=== PATIENT | female | born 1965 | race Caucasian/White ===

== ENCOUNTER 2021-07-15 13:56 | Observation (INO) | payer MEDICAID, SELFPAY ==
[2021-07-15] VITALS (12 sets, daily range): BP systolic 125–167; BP diastolic 62–106; PULSE 96–124; RESP 15–25; TEMP 36.4–36.7; O2SAT 84–98; BMI 28.4
--- NOTE | 2021-07-15 14:16 | RAD_ITS ---
STUDY: X-RAY CHEST REASON FOR EXAM: Female, 55 years old. dyspnea TECHNIQUE: 1 view COMPARISON: None. FINDINGS: Cardiomediastinal silhouette is unremarkable. Costophrenic angles are sharp. Lungs are clear. The trachea is midline. There is no pneumothorax. The bones are grossly intact. RAD/Chest 1 View (Portable) IMPRESSION: No acute cardiopulmonary process. Electronically Signed: Alfonso Patrick MD at 15:27 EST ,
--- NOTE | 2021-07-15 14:16 | EKG12_ITS ---
Test Reason : Blood Pressure : / mmHG Vent. Rate : 115 BPM Atrial Rate : 115 BPM P-R Int : 136 ms QRS Dur : 082 ms QT Int : 330 ms P-R-T Axes : 011 -37 059 degrees QTc Int : 456 ms Sinus tachycardia Left axis deviation Abnormal ECG Confirmed by LUZ BURNETT, DEBBY ([id number]), editor department LIAM MCCAIN ([id number]) on 07/17/2021 11:03:42 AM Referred By: RU Confirmed By:DEBBY ESCOBAR MD
--- NOTE | 2021-07-15 14:18 | EDS_ITS ---
HPI History of Present Illness Chief Complaint: Shortness of Breath Detail of Chief Complaint: Shortness of breath that started about 2 days ago Informant: patient Narrative Narrative: Patient presents to the emergency department with complaint of increasing shortness of breath over the last 2 days. She describes a mild cough is nonproductive. Patient feels it is an asthma exacerbation which she has had multiple times in the past. She denies any chest pain. Patient states she is been using her inhalers more frequently and last night used it 3 times and did not get much relief. Patient was noted to be hypoxic on arrival to the em ergency department. Patient is not on home O2. Patient has had her COVID vaccine but not the booster. Patient denies recent travel or surgery. [facility] Medical History (Updated 07/15/21 @ 15:[address] Gilda Drake ) Asthma Bipolar 1 disorder Depression Diabetes History of diverticulitis Hx of intestinal obstruction PTSD (post-traumatic stress disorder) Allergy/AdvReac Type Severity Reaction Status Date / Time aminophylline Allergy Swelling Verified 07/15/21 14:10 amphetamine [From Adderall] Allergy Other Verified 07/15/21 14:10 dextroamphetamine Allergy Other Verified 07/15/21 14:10 [From Adderall] iodine Allergy Swelling Verified 07/15/21 14:10 povidone-iodine Allergy Swelling Verified 07/15/21 14:10 [From Betadine] shellfish derived Allergy Swelling Verified 07/15/21 14:10 Sulfa (Sulfonamide Allergy Swelling Verified 07/15/21 14:10 Antibiotics) tetracycline AdvReac Rash Verified 07/15/21 14:10 Surgical History (Updated 07/15/21 @ 14:19 by Radha Freeman) History of lumpectomy of right breast Hx of appendectomy Hx of bilateral oophorectomy Hx of hysterectomy Hx of repair of right rotator cuff Social History Smoking Status: Never smoker ROS ROS ED Constitutional Constitutional ED: Reports systems reviewed and no addt'l complaints, except as documented; Denies body ache(s), change in weight or chills Eyes Eyes: Denies acute decrease in peripheral vision, change in vision, double vision or loss of vision ENT ENT ED: Reports none; Denies ear pain, lip swelling, loss taste/smell, neck pain, otalgia or sore throat Cardiovascular Cardiovascular: Reports none; Denies abdominal pain, chest pain with activity, leg edema, lightheadedness, palpitations, rapid heart rate or syncope Respiratory/Chest Respiratory/Chest: Reports none, cough, dyspnea and dyspnea on exertion; Denies change in mental status, dry cough, hemoptysis, shortness of breath at rest, shortness of breath with exertion or sputum Gastrointestinal Gastrointestinal: Reports none; Denies abdominal pain, change in stool character, diarrhea, hematemesis, hematochezia, melena, rectal bleeding or vomiting Genitourinary Genitourinary ED: Reports none; Denies abdominal discomfort, anuria, dysuria, genital pain or polyuria Musculoskeletal Musculoskeletal: Reports none; Denies arthralgias, back pain, difficulty walking, extremity pain, muscle weakness or myalgias Integumentary Reports none; Denies abscess or rash Neurologic Neurologic: Reports none; Denies abnormal gait, confusion, focal weakness, frequent falls, headache(s), loss of vision, numbness, paresthesias, radicular pain, vertigo or weakness Psychiatric Psychiatric: Reports systems reviewed and no addt'l complaints, except as documented and none; Denies behavioral changes, confusion, difficulty concentrating, hallucinations, suicidal ideation, tactile hallucinations or visual hallucinations Endocrine Endocrinology: Denies none, cold intolerance, excessive sweating, fatigue or heat intolerance Hematologic/Lymphatic Hematologic/Lymphatic: Reports none; Denies anemia, easy bleeding or easy bruising Allergic/Immunologic Allergic/Immunologic ED: Denies as per HPI, none, lip swelling, mouth swelling, throat swelling, tongue swelling or hives EXAM Physical Exam Const Vital Signs: 07/15/21 13:57 07/15/21 14:15 07/15/21 14:32 Temperature 97.9 F Temperature Source Temporal Pulse Rate 121 H 118 H Respiratory Rate 24 H 25 H Respiratory Effort Respiratory Depth Respiratory Pattern Tachypnea Blood Pressure 167/95 H Blood Pressure Mean 119 Pulse Ox 87 84 Oxygen Delivery Method Room Air Room Air Oxygen Flow Rate (L/min) 07/15/21 14:42 07/15/21 15:00 Temperature Temperature Source Pulse Rate 116 H Respiratory Rate 16 Respiratory Effort Short of Breath Labored Respiratory Depth Deep Respiratory Pattern Tachypnea Blood Pressure 125/106 H Blood Pressure Mean 112 Pulse Ox 96 Oxygen Delivery Method Nasal Cannula Nasal Cannula Oxygen Flow Rate (L/min) 2 2 Positive well nourished and well developed General Appearance ED: well developed and NAD HEENT Reports TM's clear and moist mucous membranes normocephalic and atraumatic; Negative for trauma or tenderness Tympanic Membrane ED: Yes TM's clear Eyes PERRL and EOMs intact bilaterally General Eye ED: Negative for pale conjunctiva or scleral icterus Neck no lymphadenopathy, supple and no JVD General: Negative for tenderness Chest Wall inspection of chest normal and palpation of chest normal Chest: Negative for tenderness Resp No normal respiratory effort and No clear to auscultation bilaterally Resp Narrative: Patient with mild conversational dyspnea. Patient has mild accessory muscle use. Diminished breath sounds bilaterally with faint expir atory wheezes noted bilaterally. Patient is tachypneic. Effort and Inspection: Negative for respiratory distress or pain with movement Auscultation: wheezes and diminished lung sounds; Negative for rhonchi Cardio regular rate, regular rhythm, S1 normal heart sound, S2 normal heart sound and no murmurs Peripheral Pulses: pulses 2+ throughout GI normal to inspection, nondistended, normoactive bowel sounds, soft to palpation, non-tender, non-distended and no masses Back/Spine no CVA tenderness and no thoracic nor lumbar tenderness Extremity normal to inspection General Extremety ED: Negative for edema General Extremity: Negative for edema Neuro oriented x3, CN's II-XII intact bilaterally, no sensory deficits noted and gait normal Sensorium / Orientation: awake, alert, oriented to person, oriented to place and oriented to time Motor Exam: strength 5/5 throughout and strength abnormal Psych mental status grossly normal Skin no rashes or lesions noted and no wounds MDM MDM MDM Narrative Medical decision making narrative: IV line established on arrival. Patient given DuoNeb aerosol followed by albuterol aerosols every 20 minutes. Patient started on Solu-Medrol 125 mg IV. Patient did feel improved and was moving better air but continues to wheeze. Patient case will be discussed with hospitalist evaluate for admission given her hypoxemia. Lab Data Attestation: I reviewed the patient's lab results. Labs: Laboratory Results - last 24 hr 07/15/21 07/15/21 14:15 14:15 WBC 6.7 RBC 4.58 Hgb 13.7 Hct 41.3 MCV 90.2 MCH 29.9 MCHC 33.2 RDW Std Deviation 39.6 RDW Coeff of Elsi 12.0 Plt Count 176 MPV 8.5 Immature Gran % (Auto) 1.200 H Neut % (Auto) 60.5 Lymph % (Auto) 23.2 Andrews % (Auto) 7.8 Eos % (Auto) 6.6 H Baso % (Auto) 0.7 Absolute Neuts (auto) 4.0 Absolute Lymphs (auto) 1.55 Nucleated RBC % 0 Sodium 141 Potassium 3.6 Chloride 109 H Carbon Dioxide 25.0 Anion Gap 7 BUN 10 Creatinine 0.96 Estim Creat Clear Calc 51.14 Est GFR (MDRD) Af Amer 77 Est GFR (MDRD) Non-Af 63 BUN/Creatinine Ratio 10.4 Glucose 140 H Calcium 9.0 Troponin I High Sens 4 Radiography Diagnostic Testing: Clinical Impression(s) from Imaging Studies Chest X-Ray 07/15/21 14:16 IMPRESSION: No acute cardiopulmonary process. Electronically Signed: Alfonso Patrick MD at 15:27 EST Reading Location ID and State: [facility] / [place] Tel , Service support , 1 view chest x-ray obtained interpreted by myself as no acute disease process. Radiology in agreement. EKG Initial EKG: Attestation: I personally reviewed and interpreted this EKG as follows: Comments: Sinus rhythm with a ventricular rate of 115 bpm with no acute ST segment changes Discharge Plan Triage Chief Complaint: Shortness of Breath ED Provider: Gilda Drake Dx/Rx/DC Orders Clinical Impression: Status asthmaticus, Hypoxemia Primary Care Provider: Care Physician,No Primary Referrals: Care Physician,No Primary [Primary Care Provider] - Disposition Disposition: Acute Care [facility]
[2021-07-15 14:27] LABS: Absolute Lymphocyte Count 1.55 X10^3/uL (0.83-4.51); Basophil# 0.05 X10^3/uL; Basophil% 0.7 % (0-1); Eosinophil# 0.44 X10^3/uL; Eosinophils% 6.6 % (0-5); Hematocrit 41.3 % (37-47); Hemoglobin 13.7 g/dL (12.0-15.0); Lymphocyte # 1.55 X10^3/ul (0.83-4.51); Lymphocyte % 23.2 % (19-41); Mean Corp Hgb Conc 33.2 g/dL (32-36); Mean Corpuscular Hgb 29.9 pg (27.0-32.0); Mean Corpuscular Volume 90.2 fL (81-99); Mean Platelet Vol. 8.5 fl (6.2-12.0); Monocyte# 0.52 X10^3/uL; Monocyte% 7.8 % (0-10); NRBC Flagged by Analyzer 0 % (0-5); Neutrophil # 4.04 X10^3/uL (2.7-7.7); Neutrophil % 60.5 % (47-70); Platelet Count 176 K/mm3 (150-450); RBC Distribution Width SD 39.6 fl (35.1-43.9); Red Blood Count 4.58 M/mm3 (4.2-5.4); White Blood Count 6.7 K/mm3 (4.4-11.0)
[2021-07-15] MEDS: Ipratropium/Albuterol Sulfate 3 ML AMPUL.NEB INHALATION ×3 (14:29→23:06)
[2021-07-15] MEDS: Albuterol 2.5 MG/3 ML VIAL.NEB. INHALATION ×3 (14:30)
[2021-07-15] MEDS: 0.9% Normal Saline 1,000 ML 150 ML IV (14:39)
[2021-07-15] MEDS: MethylPREDNISolone 125 MG/2 ML Vial IV (14:39)
[2021-07-15 14:44] LABS: Anion Gap 7 (5-15); BUN 10 mg/dL (7-18); BUN/Creat Ratio 10.4 RATIO (10-20); Chloride 109 mmol/L (98-107); Creatinine, Serum 0.96 mg/dL (0.55-1.02); EST Glomerular Filtration Rate 63 mL/min (>60); Est Glom Filt Rate - Afr Amer 77 mL/min (>60); Estimated Creatinine Clearance 51.14 ml/min; Glucose 140 mg/dL (74-106); Potassium 3.6 mmol/L (3.5-5.1); Sodium Level 141 mmol/L (136-145); Troponin-I HS 4 pg/mL (3.0-54.0)
--- NOTE | 2021-07-15 15:36 | PCM.HP.STD ---
Documented by User: Taylor Fields NP, CULINARY MANAGER-C 07/15/21 16:08 HPI - General General Date of Admission: 07/15/21 HPI Narrative LEAH JERRY, is a 55 F who presents to the Emergency Room due to shortness of breath. Patient reports she has had shortness of breath for 3 to 4 days. She states during the wintertime she typically has an asthma exacerbation every 3 to 4 weeks. She denies sore throat, runny nose, productive cough. She reports intermittent dry cough. Denies exposure to sick contacts. She is vaccinated for Covid. Denies fever, chills. Denies other URI symptoms. She states she has been using her inhaler more frequently and has significant chest tightness with wheezing. Her past medical history includes asthma, bipolar, depression, anxiety, PTSD, type 2 diabetes mellitus. COUNTS INCLUDE 234 BEDS AT THE [facility] Medical History Asthma Bipolar 1 disorder Depression Diabetes History of diverticulitis Hx of intestinal obstruction PTSD (post-traumatic stress disorder) Allergy/AdvReac Type Severity Reaction Status Date / Time aminophylline Allergy Swelling Verified 07/15/21 14:10 amphetamine [From Adderall] Allergy Other Verified 07/15/21 14:10 dextroamphetamine Allergy Other Verified 07/15/21 14:10 [From Adderall] iodine Allergy Swelling Verified 07/15/21 14:10 povidone-iodine Allergy Swelling Verified 07/15/21 14:10 [From Betadine] shellfish derived Allergy Swelling Verified 07/15/21 14:10 Sulfa (Sulfonamide Allergy Swelling Verified 07/15/21 14:10 Antibiotics) tetracycline AdvReac Rash Verified 07/15/21 14:10 Family History (Updated 07/15/21 @ 16:06 by Taylor Fields NP, CULINARY MANAGER-C) Father Diabetes Mother Diabetes Surgical History (Updated 07/15/21 @ 16:06 by Taylor Fields NP, CULINARY MANAGER-C) History of intestinal surgery History of lumpectomy of right breast Hx of appendectomy Hx of bilateral oophorectomy Hx of hysterectomy Hx of repair of right rotator cuff Social History (Updated 07/15/21 @ 16:07 by Taylor Fields NP, CULINARY MANAGER-C) household members: spouse Smoking Status: Never smoker alcohol intake: never substance use type: does not use ROS Constitutional Constitutional: Denies change in weight, chills, fatigue, fever(s) or weakness Cardiovascular Cardiovascular: Denies chest pain, edema, lightheadedness, palpitations or syncope Respiratory/Chest Respiratory/Chest: Reports cough, dyspnea and wheezing; Denies productive cough Gastrointestinal Gastrointestinal: Denies abdominal pain, constipation, diarrhea, nausea or vomiting Genitourinary Genitourinary: Denies burning urination, difficulty urinating, dysuria, hematuria, urinary frequency, urinary incontinence or urinary urgency Musculoskeletal Musculoskeletal: Denies back pain, joint pain or muscle weakness Integumentary Integumentary: Denies erythema, lesions, rash or wounds Neurologic Neurologic: Denies abnormal speech, confusion, dizziness, focal weakness, numbness, paresthesias, seizure-like activity or syncope Psychiatric Psychiatric: Denies anxiety or depression Hematologic/Lymphatic Hematologic/Lymphatic: Denies anemia, easy bleeding or easy bruising Allergic/Immunologic Allergic/Immunologic: Denies hives or asthma Vital Signs Vital Signs Vital Signs: 07/15/21 13:57 07/15/21 14:15 07/15/21 14:32 Temperature 97.9 F Temperature Source Temporal Pulse Rate 121 H 118 H Respiratory Rate 24 H 25 H Respiratory Effort Respiratory Depth Respiratory Pattern Tachypnea Blood Pressure 167/95 H Blood Pressure Mean 119 Pulse Ox 87 84 Oxygen Delivery Method Room Air Room Air Oxygen Flow Rate (L/min) 07/15/21 14:42 07/15/21 15:00 Temperature Temperature Source Pulse Rate 116 H Respiratory Rate 16 Respiratory Effort Short of Breath Labored Respiratory Depth Deep Respiratory Pattern Tachypnea Blood Pressure 125/106 H Blood Pressure Mean 112 Pulse Ox 96 Oxygen Delivery Method Nasal Cannula Nasal Cannula Oxygen Flow Rate (L/min) 2 2 Weight Weight: 155 lb 10.342 oz Body Mass Index (BMI) 28.4 Physical Exam Const alert, oriented x3 and no apparent distress Orientation / Consciousness: awake, oriented to person, oriented to place and oriented to time HEENT normocephalic and moist oral mucous membranes Eyes PERRL, EOMs intact bilaterally and conjunctivae normal Neck no lymphadenopathy Resp Auscultation: wheezes and diminished lung sounds Cardio regular rhythm and no murmurs Rate: tachycardic Peripheral Pulses: pulses 2+ throughout GI normal to inspection, nondistended, normoactive bowel sounds, non-tender and non-distended Extremity normal to inspection Skin no rashes or lesions noted Lesions: no lesions Rashes: no rashes Trauma: no lacerations or abrasions Neuro CN's II-XII intact bilaterally, no focal motor deficits, no sensory deficits noted and deep tendon reflexes 2+ bilaterally Psych mental status grossly normal and affect normal Results Lab / Micro Data Result Diagrams: 07/15/21 14:15 07/15/21 14:15 Labs: Laboratory Results - last 24 hr 07/15/21 14:15: WBC 6.7, RBC 4.58, Hgb 13.7, Hct 41.3, MCV 90.2, MCH 29.9, MCHC 33.2, RDW Std Deviation 39.6, RDW Coeff of Elsi 12.0, Plt Count 176, MPV 8.5, Immature Gran % (Auto) 1.200 H, Neut % (Auto) 60.5, Lymph % (Auto) 23.2, [place] % (Auto) 7.8, Eos % (Auto) 6.6 H, Baso % (Auto) 0.7, Absolute Neuts (auto) 4.0, Absolute Lymphs (auto) 1.55, Nucleated RBC % 0 07/15/21 14:15: Sodium 141, Potassium 3.6, Chloride 109 H, Carbon Dioxide 25.0, Anion Gap 7, BUN 10, Creatinine 0.96, Estim Creat Clear Calc 51.14, Est GFR (MDRD) Af Amer 77, Est GFR (MDRD) Non-Af 63, BUN/Creatinine Ratio 10.4, Glucose 140 H, Calcium 9.0, Troponin I High Sens 4 Micro: Microbiology 07/15/21 14:45 Nasal Secretion SARS-CoV-2 Antigen (Rapid) - Final Radiology Impression Chest X-Ray 07/15/21 14:16 IMPRESSION: No acute cardiopulmonary process. Electronically Signed: Alfonso Patrick MD at 15:27 EST , Assessment & Plan Assessment/Plan (1) Asthma: PLAN: 1. Acute hypoxic respiratory failure secondary to exacerbation of asthma-chest x-ray unremarkable. Afebrile, no leukocytosis. Check respiratory panel. Covid negative. Full vaccinated. IV Solu-Medrol. Albuterol and DuoNeb aerosols. Continue supplement oxygen to maintain O2 at above 90%. Walking pulse ox prior to discharge. 2. Type 2 diabetes mellitus-hold metformin. Accu-Cheks with sliding scale insulin. 3. PTSD/depression/anxiety/bipolar 1 disorder-continue home medication regimen, home meds not yet updated. DVT prophylaxis- SCDs, Lovenox sc This patient was seen by Taylor Fields NP-C under the supervision of Dr. Leon. Time spent examining patient, reviewing data and subsequent management of care: 14 Minutes Documented by User: Dr. Juliana Leon MD 07/15/21 17:47 HPI - General General Date of Admission: 07/15/21 COUNTS INCLUDE 234 BEDS AT THE [facility] Medical History Asthma Bipolar 1 disorder Depression Diabetes History of diverticulitis Hx of intestinal obstruction PTSD (post-traumatic stress disorder) Allergy/AdvReac Type Severity Reaction Status Date / Time aminophylline Allergy Swelling Verified 07/15/21 14:10 amphetamine [From Adderall] Allergy Other Verified 07/15/21 14:10 dextroamphetamine Allergy Other Verified 07/15/21 14:10 [From Adderall] iodine Allergy Swelling Verified 07/15/21 14:10 povidone-iodine Allergy Swelling Verified 07/15/21 14:10 [From Betadine] shellfish derived Allergy Swelling Verified 07/15/21 14:10 Sulfa (Sulfonamide Allergy Swelling Verified 07/15/21 14:10 Antibiotics) tetracycline AdvReac Rash Verified 07/15/21 14:10 Family History (Updated 07/15/21 @ 16:06 by Taylor Fields NP, CULINARY MANAGER-C) Father Diabetes Mother Diabetes Surgical History (Updated 07/15/21 @ 16:06 by Taylor Fields NP, CULINARY MANAGER-C) History of intestinal surgery History of lumpectomy of right breast Hx of appendectomy Hx of bilateral oophorectomy Hx of hysterectomy Hx of repair of right rotator cuff Social History (Updated 07/15/21 @ 16:07 by Taylor Fields CULINARY MANAGER, CULINARY MANAGER-C) household members: spouse Smoking Status: Never smoker alcohol intake: never substance use type: does not use Results Lab / Micro Data Result Diagrams: 07/15/21 14:15 07/15/21 14:15
[2021-07-15 18:11] LABS: Bedside Glucose 221 mg/dL (70-110)
[2021-07-15] MEDS: Acetaminophen 325 MG Tablet 650 MG PO (18:28)
[2021-07-15] MEDS: Insulin Lispro 100 UNIT/ML INSULN.PEN SC ×2 (18:57→23:21)
[2021-07-15] MEDS: hydrOXYzine PAM 25 MG Capsule 50 MG PO (20:48)
[2021-07-15] MEDS: guaiFENesin 1,200 MG Tablet 1200 MG PO (23:20)
[2021-07-15] MEDS: Doxazosin 1 MG Tablet PO (23:21)
[2021-07-15] MEDS: Amitriptyline 10 MG Tablet 20 MG PO (23:21)
[2021-07-15] MEDS: Haloperidol 5 MG Tablet PO (23:21)
[2021-07-15] MEDS: traZODone 100 MG Tablet 150 MG PO (23:21)
[2021-07-16] VITALS (7 sets, daily range): BP systolic 124–140; BP diastolic 68–76; PULSE 86–104; RESP 16–20; TEMP 36.4–37; O2SAT 95–98
[2021-07-16 01:21] LABS: Bedside Glucose 331 mg/dL (70-110)
[2021-07-16] MEDS: Ipratropium/Albuterol Sulfate 3 ML AMPUL.NEB INHALATION ×3 (03:25→11:08)
[2021-07-16] MEDS: Amitriptyline 10 MG Tablet 20 MG PO (06:14)
[2021-07-16] MEDS: Enoxaparin 40 MG/0.4 ML Syringe SC (06:14)
[2021-07-16] MEDS: Insulin Lispro 100 UNIT/ML INSULN.PEN SC ×2 (06:16→11:41)
[2021-07-16] MEDS: 0.9% Saline Lock 10 ML Syringe IV (06:17)
[2021-07-16] MEDS: Acetaminophen 325 MG Tablet 650 MG PO ×2 (06:30→14:16)
[2021-07-16 06:56] LABS: Bedside Glucose 262 mg/dL (70-110)
[2021-07-16] MEDS: Citalopram 20 MG Tablet 60 MG PO (08:48)
[2021-07-16] MEDS: clonazePAM 0.5 MG Tablet PO (08:48)
[2021-07-16] MEDS: guaiFENesin 1,200 MG Tablet 1200 MG PO (08:48)
[2021-07-16] MEDS: hydrOXYzine PAM 25 MG Capsule 50 MG PO (08:49)
--- NOTE | 2021-07-16 10:35 | CASEMGMT ---
NEHEMIAS MA Face to Face with patient for initial transition planning/care coordination assessment. RN ANIL introduced self and role at [facility]. Patient lying in bed, alert and oriented, at bedside. Patient willing to participate in assessment and is able to answer all questions appropriately. Care providers, pharmacy, and demographics verified. Patient wishes to discharge to her car and staying at [email or web address] at night. Patient states she has no further needs or concerns at this time. CM to follow for discharge planning needs that may arise. PCP: Patient she sees Leslye in [place]. Patient wanting to see doctor in [place]. Patient provided with PCP list Specialists: none Preferred Pharmacy: [email or web address], [facility] retail at discharge Insurance: [employer] Prescription Benefit: yes Living Will/HPOA: none LNOK: Living Arrangements: Patient states she and her are currently staying in their car and sleeping at [facility] center at [email or web address] at night. Patient states she is independent Transportation: self, DME/HHC: Patient states she has nebulizer. No previous HHC or SNF. Patient requesting information regarding housing resources and food assistance. Disposition Plan: Patient to discharge to car and [email or web address] with follow-up plans in place. Serene JUÁREZ, RN, CM
--- NOTE | 2021-07-16 10:52 | CASEMGMT ---
Addendum entered by Theodora Del Angel 07/16/21 11:23: Received tc from pharmacy requesting information from pt insurance card that is not on file. RN ANIL in to pt room, obtained info and relayed to Luis in pharmacy. Pt aware that meds and BGM will be delivered to her room. Original Note: Obtained script for BGM, tubed to [facility] retail pharmacy (per pt request) and requested to be delivered to pt room as she will be dc'ing today.
--- NOTE | 2021-07-16 11:45 | CASEMGMT ---
Social Work Note SW updated that pt would like housing resources and food pantry resources. SW in to speak with pt and pt's Dean present in room. SW introduced self and role at [facility]. SW provided pt with housing and food/meals pantries resources. Serene Chapa SEA CAPTAIN, DIE REAMER
--- NOTE | 2021-07-16 11:46 | PCM.DC ---
Discharge Instructions Diet Discharge Diet: Carb Control Diet Activity Discharge Activity: Return to Normal Activity Dressing / Incision Call your doctor if you observe: Fever of 101 or Higher, Shortness of breath, Dizziness and Chest pain Follow Up Care Test Results: Test results from this visit will be discussed in further detail at your follow-up appointment, if applicable. Discharge Plan Admission Admit Date/Time: 07/15/21 15:38 Primary Reason for Your Visit: Asthma exacerbation Attending Provider: Bhakti Arndt Primary Care Provider: Care Physician,No Primary Discharge Orders/Prescriptions Prescriptions: New Mucus Relief ER 1,200 mg Tablet Extended Release 12hr 1,200 mg PO BID 14 Days Qty: 28 RF: 0 prednisone 10 mg tablet See Taper mg PO DAILY Qty: 30 RF: 0 albuterol sulfate 90 mcg/actuation HFA aerosol inhaler 2 puff inhalation Q6H PRN (Reason: shortness of breath or wheezing) Qty: 8.5 RF: 0 Continued haloperidol 5 mg tablet 5 mg PO QHS RF: 0 albuterol sulfate 2.5 mg /3 mL (0.083 %) solution for nebulization RF: 0 clonazepam 0.5 mg tablet 0.5 mg PO DAILY RF: 0 citalopram 40 mg tablet 60 mg PO DAILY RF: 0 hydroxyzine HCl 50 mg tablet 50 mg PO Q8 PRN (Reason: anxiety) RF: 0 prazosin 1 mg capsule 1 mg PO QHS RF: 0 trazodone 150 mg tablet 150 mg PO QHS RF: 0 metformin 500 mg tablet extended release 24 hr 500 mg PO BID RF: 0 amitriptyline 10 mg tablet 20 mg PO TID RF: 0 benztropine 1 mg tablet 1 mg PO PRN PRN (Reason: anxiety) RF: 0 benztropine 1 mg tablet 1 mg PO DAILY 30 Days Qty: 30 RF: 0 Discontinued azithromycin 250 mg tablet RF: 0 Referrals / Follow Up: Care Physician,No Primary [Primary Care Provider] - In 1 Week Disposition Disposition (needs filled in before D/C Order can be placed): Home, Self Care
[2021-07-16 11:55] LABS: Bedside Glucose 345 mg/dL (70-110)
--- NOTE | 2021-07-16 12:00 | DS.PCM_ITS ---
Documented by User: Taylor Fields NP, HAND CEMENTER-C 07/16/21 12:05 Providers Date of Admission: 07/15/21 Date of Discharge: 07/16/21 Primary Care Physician: No Primary Care Phys Reason For Visit: ASTHMA EXACERBATION Diagnosis Discharge Diagnosis (1) Asthma: Status: Acute Code(s): J45.909 - Unspecified asthma, uncomplicated Medications at Discharge Home Medications albuterol sulfate 07/15/21 amitriptyline 20 mg PO TID 07/15/21 benztropine 1 mg PO PRN PRN 07/15/21 citalopram 60 mg PO DAILY 07/15/21 clonazepam 0.5 mg PO DAILY 07/15/21 haloperidol 5 mg PO QHS 07/15/21 hydroxyzine HCl 50 mg PO Q8 PRN 07/15/21 metformin 500 mg PO BID 07/15/21 prazosin 1 mg PO QHS 07/15/21 trazodone 150 mg PO QHS 07/15/21 albuterol sulfate 2 puff INHALATION Q6H PRN #8.5 g 07/16/21 benztropine 1 mg PO DAILY 30 Days #30 tab 07/16/21 guaifenesin [Mucus Relief ER] 1,200 mg PO BID 14 Days #28 tab 07/16/21 prednisone See Taper PO DAILY #30 tab 07/16/21 Hospital Course Operations None Procedures None Summary of Care Provided Hospital Course: Patient is a 55-year-old female admitted 07/15/2021 due to shortness of breath, wheezing. 1. Acute hypoxic respiratory failure secondary to exacerbation of asthma-chest x-ray unremarkable. Afebrile, no leukocytosis. Respiratory panel negative. Covid negative. Full vaccinated. IV Solu-Medrol during admission. Patient improved quicker than expected and is now on room air. Ambulatory pulse ox prior to discharge. Prednisone taper at discharge. Continue home aerosol/inhaler regimen. Follow-up with PCP in 1 week. 2. Type 2 diabetes mellitus-continue home Metformin regimen. Rx for glucometer/testing supplies at discharge. 3. PTSD/depression/anxiety/bipolar 1 disorder-continue home medication regimen including amitriptyline, benztropine, citalopram, clonazepam, Haldol, prazosin, hydroxyzine, trazodone. Physical Exam Const alert, oriented x3 and no apparent distress Orientation / Consciousness: awake, oriented to person, oriented to place and oriented to time HEENT normocephalic and moist oral mucous membranes Eyes PERRL, EOMs intact bilaterally and conjunctivae normal Neck no lymphadenopathy Resp Auscultation: Scattered expiratory wheezing Cardio regular rhythm and no murmurs Rate: tachycardic Peripheral Pulses: pulses 2+ throughout GI normal to inspection, nondistended, normoactive bowel sounds, non-tender and non-distended Extremity normal to inspection Skin no rashes or lesions noted Lesions: no lesions Rashes: no rashes Trauma: no lacerations or abrasions Neuro CN's II-XII intact bilaterally, no focal motor deficits, no sensory deficits noted and deep tendon reflexes 2+ bilaterally Psych mental status grossly normal and affect normal Patient seen and examined prior to discharge. Physical assessment as noted above. Patient is stable for discharge with follow up recommendations as noted above. This patient was seen by JHONY Ruby under the supervision of Dr. Arndt. Weight / BMI Weight Weight: 155 lb 10.342 oz Body Mass Index (BMI) 28.4 ABG / Lab / Microbiology Data Result Diagrams: 07/15/21 14:15 07/15/21 14:15 Laboratory: Laboratory Results - last 24 hr 07/15/21 14:15: WBC 6.7, RBC 4.58, Hgb 13.7, Hct 41.3, MCV 90.2, MCH 29.9, MCHC 33.2, RDW Std Deviation 39.6, RDW Coeff of Elsi 12.0, Plt Count 176, MPV 8.5, Immature Gran % (Auto) 1.200 H, Neut % (Auto) 60.5, Lymph % (Auto) 23.2, Thomas % (Auto) 7.8, Eos % (Auto) 6.6 H, Baso % (Auto) 0.7, Absolute Neuts (auto) 4.0, Absolute Lymphs (auto) 1.55, Nucleated RBC % 0 07/15/21 14:15: Sodium 141, Potassium 3.6, Chloride 109 H, Carbon Dioxide 25.0, Anion Gap 7, BUN 10, Creatinine 0.96, Estim Creat Clear Calc 51.14, Est GFR (MDRD) Af Amer 77, Est GFR (MDRD) Non-Af 63, BUN/Creatinine Ratio 10.4, Glucose 140 H, Calcium 9.0, Troponin I High Sens 4 07/15/21 18:07: POC Glucose 221 H 07/15/21 23:16: POC Glucose 331 H 07/16/21 06:15: POC Glucose 262 H 07/16/21 11:40: POC Glucose 345 H Microbiology: Microbiology 07/15/21 19:05 Mucosa - Nasopharyngeal Respiratory Panel (PCR) - Final 07/15/21 14:45 Nasal Secretion SARS-CoV-2 Antigen (Rapid) - Final Radiography Diagnostic Testing: Radiology Impression Chest X-Ray 07/15/21 14:16 IMPRESSION: No acute cardiopulmonary process. Electronically Signed: Alfonso Patrick MD at 15:27 EST , D/C Instructions Discharge Diet: Carb Control Diet Call your doctor if you observe: Fever of 101 or Higher, Shortness of breath, Dizziness and Chest pain Meaningful Use Info Meaningful Use Diagnoses (Choose all that apply): None applicable Discharge Plan Admission Admit Date/Time: 07/15/21 15:38 Primary Reason for Your Visit: Asthma exacerbation Attending Provider: Bhakti Arndt Primary Care Provider: Care Physician,Lidia Primary Discharge Orders/Prescriptions Prescriptions: New Mucus Relief ER 1,200 mg Tablet Extended Release 12hr 1,200 mg PO BID 14 Days Qty: 28 RF: 0 prednisone 10 mg tablet See Taper mg PO DAILY Qty: 30 RF: 0 albuterol sulfate 90 mcg/actuation HFA aerosol inhaler 2 puff inhalation Q6H PRN (Reason: shortness of breath or wheezing) Qty: 8.5 RF: 0 Continued haloperidol 5 mg tablet 5 mg PO QHS RF: 0 albuterol sulfate 2.5 mg /3 mL (0.083 %) solution for nebulization RF: 0 clonazepam 0.5 mg tablet 0.5 mg PO DAILY RF: 0 citalopram 40 mg tablet 60 mg PO DAILY RF: 0 hydroxyzine HCl 50 mg tablet 50 mg PO Q8 PRN (Reason: anxiety) RF: 0 prazosin 1 mg capsule 1 mg PO QHS RF: 0 trazodone 150 mg tablet 150 mg PO QHS RF: 0 metformin 500 mg tablet extended release 24 hr 500 mg PO BID RF: 0 amitriptyline 10 mg tablet 20 mg PO TID RF: 0 benztropine 1 mg tablet 1 mg PO PRN PRN (Reason: anxiety) RF: 0 benztropine 1 mg tablet 1 mg PO DAILY 30 Days Qty: 30 RF: 0 Discontinued azithromycin 250 mg tablet RF: 0 Referrals / Follow Up: Aldo Fuchs MD [STAFF PHYSICIAN] - Within 3 Months (Asthma) Care Physician,No Primary [Primary Care Provider] - In 1 Week Disposition Disposition (needs filled in before D/C Order can be placed): Home, Self Care Documented by User: Dr. Bhakti Arndt DO 07/16/21 12:50 Providers Date of Admission: 07/15/21 Reason For Visit: ASTHMA EXACERBATION Medications at Discharge Home Medications albuterol sulfate 07/15/21 amitriptyline 20 mg PO TID 07/15/21 benztropine 1 mg PO PRN PRN 07/15/21 citalopram 60 mg PO DAILY 07/15/21 clonazepam 0.5 mg PO DAILY 07/15/21 haloperidol 5 mg PO QHS 07/15/21 hydroxyzine HCl 50 mg PO Q8 PRN 07/15/21 metformin 500 mg PO BID 07/15/21 prazosin 1 mg PO QHS 07/15/21 trazodone 150 mg PO QHS 07/15/21 albuterol sulfate 2 puff INHALATION Q6H PRN #8.5 g 07/16/21 benztropine 1 mg PO DAILY 30 Days #30 tab 07/16/21 guaifenesin [Mucus Relief ER] 1,200 mg PO BID 14 Days #28 tab 07/16/21 prednisone See Taper PO DAILY #30 tab 07/16/21 Hospital Course Operations None Procedures None Summary of Care Provided Minutes Spent on Discharge: 36 Hospital Course: This patient was seen in conjunction with Taylor Fields NP. The following is representation my independent history and physical examination. Please see below for addendum the above. Mrs. David is a 55-year-old white female who presented to emergency department at [facility] on 07/15/2021 with shortness of breath. The patient presented after suffering from 3 to 4 days of shortness of breath. The patient indicated on admission that during the wintertime she typically has an exacerbation of her asthma every 3 to 4 weeks. On admission she denied any other constitutional symptoms including sore throat, rhinorrhea, productive coug h but did indicate she had an intermittent dry cough. She denied any sick exposures and has been completely vaccinated for COVID-19. She also denied having any fever chills or other upper respiratory tract symptoms. She has a rescue inhaler of albuterol and nebulizer at home which she had been using with more frequency but has not had any resolution of her chest tightness and wheezing with these and therefore presented. On presentation her oxygen saturation was initially 87% on room air that improved to 97% on 2 L nasal cannula. After ED interventions of Solu-Medrol and DuoNeb therapies her respiratory rate decreased from 24-15. She was admitted to the medical floor and maintained on supplemental oxygen and weaned as able to room air. She was maintained on duo nebs as well as as needed albuterol and IV methylprednisolone. A COVID-19 test was performed and negative. A respiratory PCR was performed and was negative. Blood cultures were done and were pending upon discharge however the patient had no significant symptoms consistent with bacteremia and had no other identifiable sources of infection. She did have significant hyperglycemia as she is a type II diabetic at baseline and was on steroids. Her blood sugar should improve with weaning of her prednisone. Given that she was on room air and feeling much better on 07/16/2021 she was able to be discharged home in stable condition. Upon examination the patient states that she feels better on the day of discharge than she had in approximately 3 to 6 months. She has followed previously with a spinning lathe operator but it is difficult for her to get there as it is in [place]. We did make a referral to Dr. Fuchs's office here in [place] as this is more convenient for her. I did let her know that would probably take a few months to get an appointment and she was discharged home with a refill on her albuterol inhaler, a slow taper of oral prednisone, Mucinex, and Acapella, and she was given a prescription for new glucometer. Discharge diagnoses: Acute hypoxic respiratory insufficiency secondary to asthma exacerbation DM-2 with hyperglycemia secondary to steroids History of diverticulitis PTSD Depression Bipolar 1 disorder Physical Exam Const alert, oriented x3, no apparent distress, no limitations, healthy appearing and well nourished Constitutional Narrative: Overweight upper middle-aged white female sitting up in bed, appears comfortable, on room air, nontoxic General Appearance: cooperative, comfortable and well developed Orientation / Consciousness: awake Exam Limitations: no limitations Nutritional Appearance: overweight HEENT normocephalic, head/scalp atraumatic, hearing grossly normal bilaterally and moist oral mucous membranes HEENT Narrative: Severe underbite, dentition is fair, no thrush, Mallampati is 2 Eyes PERRL, EOMs intact bilaterally and conjunctivae normal Eyes Narrative: No scleral icterus Neck no lymphadenopathy, supple and no JVD Resp normal respiratory effort, no retractions and no use of accessory muscles Resp Narrative: Few scattered end expiratory wheeze Auscultation: wheezes; Negative for crackles, rales or rhonchi Cardio regular rate, regular rhythm, S1 normal heart sound, S2 normal heart sound, no murmurs, no rub, no gallops, no clicks and no JVD GI normal to inspection, nondistended, normoactive bowel sounds, soft to palpation, non-tender and non-distended Extremity no clubbing, cyanosis or edema Skin no rashes or lesions noted, no wounds, skin turgor normal and no jaundice Neuro oriented x3, CN's II-XII intact bilaterally and moves all extremities Sensorium / Orientation: awake and alert Speech: speech normal Psych affect normal ABG / Lab / Microbiology Data Result Diagrams: 07/15/21 14:15 07/15/21 14:15 Discharge Plan Admission Admit Date/Time: 07/15/21 15:38 Primary Reason for Your Visit: Asthma exacerbation Attending Provider: Bhakti Arndt Primary Care Provider: Care Physician,Lidia Primary Discharge Orders/Prescriptions Prescriptions: New Mucus Relief ER 1,200 mg Tablet Extended Release 12hr 1,200 mg PO BID 14 Days Qty: 28 RF: 0 prednisone 10 mg tablet See Taper mg PO DAILY Qty: 30 RF: 0 albuterol sulfate 90 mcg/actuation HFA aerosol inhaler 2 puff inhalation Q6H PRN (Reason: shortness of breath or wheezing) Qty: 8.5 RF: 0 Continued haloperidol 5 mg tablet 5 mg PO QHS RF: 0 albuterol sulfate 2.5 mg /3 mL (0.083 %) solution for nebulization RF: 0 clonazepam 0.5 mg tablet 0.5 mg PO DAILY RF: 0 citalopram 40 mg tablet 60 mg PO DAILY RF: 0 hydroxyzine HCl 50 mg tablet 50 mg PO Q8 PRN (Reason: anxiety) RF: 0 prazosin 1 mg capsule 1 mg PO QHS RF: 0 trazodone 150 mg tablet 150 mg PO QHS RF: 0 metformin 500 mg tablet extended release 24 hr 500 mg PO BID RF: 0 amitriptyline 10 mg tablet 20 mg PO TID RF: 0 benztropine 1 mg tablet 1 mg PO PRN PRN (Reason: anxiety) RF: 0 benztropine 1 mg tablet 1 mg PO DAILY 30 Days Qty: 30 RF: 0 Discontinued azithromycin 250 mg tablet RF: 0 Referrals / Follow Up: Aldo Fuchs MD [STAFF PHYSICIAN] - Within 3 Months (Asthma) Care Physician,No Primary [Primary Care Provider] - In 1 Week Disposition Disposition (needs filled in before D/C Order can be placed): Home, Self Care Charges/Coding Visit Charges Inpatient E&M: 22067 Disch Hosp
[2021-07-16] MEDS: Benztropine 2 MG Tablet 1 MG PO (14:16)
== END 2021-07-16 14:31 | disposition home or self-care (01) ==
LOC: ED 15:45 → MS3 07-16 07:05
PROVIDERS: Admitting Provider Family Medicine; Emergency Provider Emergency Medicine; Visit Provider Internal Medicine
DX: J45.901 Unspecified asthma with (acute) exacerbation (principal); F31.9 Bipolar disorder, unspecified; E11.65 Type 2 diabetes mellitus with hyperglycemia; F41.9 Anxiety disorder, unspecified; F43.10 Post-traumatic stress disorder, unspecified; T38.0X5A Adverse effect of glucocorticoids and synthetic analogues, initial encounter; R09.02 Hypoxemia; Z20.822 Contact with and (suspected) exposure to COVID-19; Z79.899 Other long term (current) drug therapy; Z79.84 Long term (current) use of oral hypoglycemic drugs
CPT/HCPCS: 71045; 80048; 82962; 84484; 85025; 87040; 87426; 87633; 93005; 94640; 96361; 96372; 96374; 96376; 99218; 99285; J7030; A4216; G0378

== ENCOUNTER 2021-08-19 16:22 | Emergency (ER) | payer MEDICAID, SELFPAY ==
[2021-08-19 16:22] VITALS: BP 159/93; PULSE 106; RESP 24; TEMP 36.3; O2SAT 90; BMI 28.9
--- NOTE | 2021-08-19 16:35 | EKG12_ITS ---
Test Reason : SOB Blood Pressure : / mmHG Vent. Rate : 095 BPM Atrial Rate : 095 BPM P-R Int : 140 ms QRS Dur : 084 ms QT Int : 384 ms P-R-T Axes : 001 -27 051 degrees QTc Int : 482 ms Normal sinus rhythm poor r wave progression. Confirmed by DANY BURNETT, AMBROSIO ([id number]), book or script editor MAGDALENA JIMENEZ ([id number]) on 08/22/2021 10:46:12 AM Referred By: LORENE Confirmed By:AMBROSIO SAENZ MD
--- NOTE | 2021-08-19 16:42 | ED.VIS.DYS ---
HPI <JHONY Chua - Last Filed: 08/19/21 17:48> History of Present Illness Chief Complaint: Asthma Narrative Narrative: 55-year-old female with history of asthma, PTSD, diabetes who presents to the emergency department with an asthma exacerbation. Patient states that for the last 3 days, she has had increasing shortness of breath, today she cannot handle anymore and is here for evaluation. Patient did recently get admitted to the hospital for an asthma exacerbation 3 to 4 weeks ago. She was 88% on room air, patient is tripoding, inability to speak with full sentences. Patient states she does not smoke cigarettes however her does. Patient denies any fever chills PFSH <JHONY Chua - Last Filed: 08/19/21 17:48> PFSH Medical History (Updated 08/19/21 @ 17:46 by JHONY Chua) Asthma Bipolar 1 disorder Depression Diabetes History of diverticulitis Hx of intestinal obstruction PTSD (post-traumatic stress disorder) Home Medications amitriptyline 20 mg PO TID 07/15/21 [History Last Taken 1 Day Ago ~07/14/21] benztropine 1 mg PO PRN PRN 07/15/21 [History Last Taken 1 Day Ago ~07/14/21] citalopram 60 mg PO DAILY 07/15/21 [History Last Taken 1 Day Ago ~07/14/21] clonazepam 0.5 mg PO DAILY 07/15/21 [History Last Taken 07/14/21 08:00] haloperidol 5 mg PO QHS 07/15/21 [History Last Taken 07/14/21 22:00] hydroxyzine HCl 50 mg PO Q8 PRN 07/15/21 [History Last Taken 1 Day Ago ~07/14/21] metformin 500 mg PO BID 07/15/21 [History Last Taken 1 Day Ago ~07/14/21] prazosin 1 mg PO QHS 07/15/21 [History Last Taken Unknown] trazodone 150 mg PO QHS 07/15/21 [History Last Taken 1 Day Ago ~07/14/21] albuterol sulfate 2 puff INHALATION Q6H PRN #8.5 g 07/16/21 [Rx Last Taken Unknown] benztropine 1 mg PO DAILY 30 Days #30 tab 07/16/21 [Rx Last Taken Unknown] guaifenesin [Mucus Relief ER] 1,200 mg PO BID 14 Days #28 tab 07/16/21 [Rx Last Taken Unknown] prednisone See Taper PO DAILY #30 tab 07/16/21 [Rx Last Taken Unknown] benzonatate 100 mg PO TID #14 cap 08/19/21 [Rx Last Taken Unknown] prednisone 40 mg PO DAILY 5 Days #10 tab 08/19/21 [Rx Last Taken Unknown] Allergy/AdvReac Type Severity Reaction Status Date / Time aminophylline Allergy Swelling Verified 08/19/21 16:25 amphetamine [From Adderall] Allergy Other Verified 08/19/21 16:25 dextroamphetamine Allergy Other Verified 08/19/21 16:25 [From Adderall] iodine Allergy Swelling Verified 08/19/21 16:25 povidone-iodine Allergy Swelling Verified 08/19/21 16:25 [From Betadine] shellfish derived Allergy Swelling Verified 08/19/21 16:25 Sulfa (Sulfonamide Allergy Swelling Verified 08/19/21 16:25 Antibiotics) tetracycline AdvReac Rash Verified 08/19/21 16:25 Family History (Updated 07/15/21 @ 16:06 by Taylor Fields NP, [employer]PORATE LEARNING CONSULTANT-C) Father Diabetes Mother Diabetes Surgical History History of intestinal surgery History of lumpectomy of right breast Hx of appendectomy Hx of bilateral oophorectomy Hx of hysterectomy Hx of repair of right rotator cuff Social History (Updated 07/15/21 @ 16:07 by Taylor Fields NP, CORPORATE LEARNING CONSULTANT-C) household members: spouse Smoking Status: Never smoker alcohol intake: never substance use type: does not use ROS <JHONY Chua - Last Filed: 08/19/21 17:48> ROS ED ROS Narrative Constitutional: Negative for fever, chills, weight loss or gain, weakness Eyes: Negative for vision loss, vision change, double vision ENT: Negative for any hearing changes, ringing in the ears, discharge, pain Nose: Negative for any congestion, runny nose, sinus pain, allergies Throat: Negative for any sore throat, swelling, voice changes, Cardiovascular: Negative for any chest pain, tightness, palpitations, racing heartbeat Respiratory: Negative for any sputum production, hemoptysis. Positive for cough, shortness of breath, shortness of breath on exertion Gastrointestinal: Negative for any abdominal pain, nausea, vomiting, diarrhea, constipation, blood in stool, blood in vomit : Negative for any urinary frequency, incontinence, dysuria, retention, blood in urine Muscle skeletal: Negative for any muscle joint pain, stiffness, myalgias, arthralgias, neck pain, back pain Neurological: Negative for any headache, dizziness, syncope, numbness or tingling Skin: Negative for any rashes, lumps, itching, abrasions, lacerations Psychiatric: Negative for any depression, anxiety, stress, suicidal ideation, homicidal ideation Hematologic: Negative for any easy bruising, excessive bruising, easy bleeding Allergies: Negative for any eczema, hives, rash EXAM <JHONY Chua - Last Filed: 08/19/21 17:48> Physical Exam Const Vital Signs: 08/19/21 16:22 08/19/21 16:50 08/19/21 16:57 Temperature 97.3 F L Temperature Source Temporal Pulse Rate 106 H 93 Respiratory Rate 24 H 18 Respiratory Effort Short of Breath Respiratory Pattern Tachypnea Blood Pressure 159/93 H Blood Pressure Mean 115 Pulse Ox 90 Oxygen Delivery Method Room Air Nasal Cannula Oxygen Flow Rate (L/min) 2 Positive well nourished and well developed General Appearance ED: well developed HEENT atraumatic Eyes PERRL and EOMs intact bilaterally Neck no lymphadenopathy and supple Chest Wall Chest: other Resp Resp Narrative: Patient is tachypneic, patient is tripoding, talking in short sentences. Patient is unable to speak in full senses. Patient has audible wheezing, patient has both expiratory, inspiratory wheezes. Patient is 88% on room air, patient was placed on oxygen during exam. Auscultation: wheezes and diminished lung sounds Cardio Rate: tachycardic GI non-tender, non-distended and no masses Auscultation: normoactive bowel sounds Palpation: soft Back/Spine no CVA tenderness and normal to inspection Extremity normal to inspection Neuro oriented x3 Sensorium / Orientation: alert Psych mental status grossly normal Skin Rashes: no rashes <Dr. Gilda Drake DO - Last Filed: 08/19/21 17:49> Physical Exam Const Vital Signs: 08/19/21 16:22 08/19/21 16:50 08/19/21 16:57 Temperature 97.3 F L Temperature Source Temporal Pulse Rate 106 H 93 Respiratory Rate 24 H 18 Respiratory Effort Short of Breath Respiratory Pattern Tachypnea Blood Pressure 159/93 H Blood Pressure Mean 115 Pulse Ox 90 Oxygen Delivery Method Room Air Nasal Cannula Oxygen Flow Rate (L/min) 2 [facility] <JALYN ChuaC - Last Filed: 08/19/21 17:48> [facility] Narrative Medical decision making narrative: Patient arrives in moderate respiratory distress, patient is 88% on room air, patient did receive a respiratory work-up, patient did receive breathing treatments. Patient's laboratory studies show a normal CBC, patient's chemistries were unremarkable. EKG shows no acute process. Patient did receive a chest x-ray, this showed chronic changes, no acute process, this was read by ER attending. Patient also received 125 mg of Solu-Medrol. After treatments, patient was ambulated around the department, she maintained a 94% oxygen saturation, patient felt much better and like to be discharged. On reassessment, patient was moving more air, she did have some continued wheezing however states she always has wheezing. Patient will follow up closely with her PCP, she will be discharged on prednisone 40 mg for 5 days as well as Tessalon Francescoes. She is instructed return for any worsening symptoms. Lab Data Attestation: I reviewed the patient's lab results. Labs: Laboratory Results - last 24 hr 08/19/21 08/19/21 16:53 16:53 WBC 4.8 RBC 4.23 Hgb 12.3 Hct 37.4 MCV 88.4 MCH 29.1 MCHC 32.9 RDW Std Deviation 38.5 RDW Coeff of Elsi 12.1 Plt Count 192 MPV 8.7 Immature Gran % (Auto) 0.800 Neut % (Auto) 50.4 Lymph % (Auto) 26.7 Blair % (Auto) 9.8 Eos % (Auto) 11.5 H Baso % (Auto) 0.8 Absolute Neuts (auto) 2.4 Absolute Lymphs (auto) 1.28 Nucleated RBC % 0 Sodium 141 Potassium 4.1 Chloride 109 H Carbon Dioxide 27.0 Anion Gap 5 BUN 10 Creatinine 1.02 Estim Creat Clear Calc 48.13 Est GFR (MDRD) Af Amer 72 Est GFR (MDRD) Non-Af 59 L BUN/Creatinine Ratio 9.8 L Glucose 109 H Calcium 9.1 Troponin I High Sens < 3 L <Dr. Gilda Drake, DO - Last Filed: 08/19/21 17:49> [facility] Narrative Medical decision making narrative: I have personally performed a face to face assessment of the patient and have reviewed the VICK Note. I performed a substantive portion of the visit including all aspects of the following. My sanchez findings include: History is [patient presents to ER with increasing shortness of breath over the last 3 days. Patient has been using albuterol at home but not get much relief. She is had a mild cough. She denies any chest pain. She denies fever. She has history of asthma. Patient states she is around secondhand smoke so she would be surprised if she had COPD. Patient denies sick contacts.] Exam is [HEENT-PERRLA, EOMI. Cranial nerves II through XII grossly intact. TMs clear. Mucous membranes moist. No adenopathy. Cardiovascular-regular rate and rhythm without murmur or ectopy Lungs-patient with mild respiratory distress on arrival. She is tripoding slightly. She has some conversational dyspnea. She has tachypnea. No accessory muscle use or retractions noted. Patient wheezing throughout lung puga and diminished bilaterally. Abdomen-normoactive bowel sounds, soft, nontender, no rebound or rigidity, no peritoneal signs. Extremities-intact ?4, normal range of motion, normal pulses, atraumatic] Medical Decison Making [IV line established on arrival. Patient was given aerosols. Patient started on Solu-Medrol. Lab work-up was unremarkable. Covid testing and influenza testing was negative. Chest x-ray interpreted by myself no acute disease process. Patient would like to go home and does not want to be admitted unless absolutely necessary. She initially was 88% on room air and when she had her breathing treatment we discontinued her oxygen and ambulated her in the department and she maintained about 94% the entire time. She is feeling improved. Patient would like to go home. Patient will be started on prednisone 40 mg for 5 days and given Tessalon Perles for her cough. Patient advised to return if chest pain, worsening shortness of breath, or condition should worsen anyway.] Other additions or changes: [None] Lab Data Attestation: I reviewed the patient's lab results. Labs: Laboratory Results - last 24 hr 08/19/21 08/19/21 16:53 16:53 WBC 4.8 RBC 4.23 Hgb 12.3 Hct 37.4 MCV 88.4 MCH 29.1 MCHC 32.9 RDW Std Deviation 38.5 RDW Coeff of Elsi 12.1 Plt Count 192 MPV 8.7 Immature Gran % (Auto) 0.800 Neut % (Auto) 50.4 Lymph % (Auto) 26.7 Blair % (Auto) 9.8 Eos % (Auto) 11.5 H Baso % (Auto) 0.8 Absolute Neuts (auto) 2.4 Absolute Lymphs (auto) 1.28 Nucleated RBC % 0 Sodium 141 Potassium 4.1 Chloride 109 H Carbon Dioxide 27.0 Anion Gap 5 BUN 10 Creatinine 1.02 Estim Creat Clear Calc 48.13 Est GFR (MDRD) Af Amer 72 Est GFR (MDRD) Non-Af 59 L BUN/Creatinine Ratio 9.8 L Glucose 109 H Calcium 9.1 Troponin I High Sens < 3 L Radiography Chest X-Ray - ED: 1 View Diagnostic Testin view chest x-ray obtained interpreted by myself as no acute disease process. Official report from radiology pending. EKG Initial EKG: Attestation: I personally reviewed and interpreted this EKG as follows: Comments: Sinus rhythm with a rate of 95 bpm with no acute ST segment changes Discharge Plan Triage Chief Complaint: Asthma ED Midlevel Provider: Adonis Cade ED Provider: Gilda Drake Dx/Rx/DC Orders Clinical Impression: Asthma attack Instructions: Asthma and COPD, Asthma Prescriptions: New prednisone 20 mg tablet 40 mg PO DAILY 5 Days Qty: 10 RF: 0 benzonatate 100 mg capsule 100 mg PO TID Qty: 14 RF: 0 No Action haloperidol 5 mg tablet 5 mg PO QHS RF: 0 clonazepam 0.5 mg tablet 0.5 mg PO DAILY RF: 0 citalopram 40 mg tablet 60 mg PO DAILY RF: 0 hydroxyzine HCl 50 mg tablet 50 mg PO Q8 PRN (Reason: anxiety) RF: 0 prazosin 1 mg capsule 1 mg PO QHS RF: 0 trazodone 150 mg tablet 150 mg PO QHS RF: 0 metformin 500 mg tablet extended release 24 hr 500 mg PO BID RF: 0 amitriptyline 10 mg tablet 20 mg PO TID RF: 0 benztropine 1 mg tablet 1 mg PO PRN PRN (Reason: anxiety) RF: 0 Mucus Relief ER 1,200 mg Tablet Extended Release 12hr 1,200 mg PO BID 14 Days Qty: 28 RF: 0 prednisone 10 mg tablet See Taper mg PO DAILY Qty: 30 RF: 0 albuterol sulfate 90 mcg/actuation HFA aerosol inhaler 2 puff inhalation Q6H PRN (Reason: shortness of breath or wheezing) Qty: 8.5 RF: 0 benztropine 1 mg tablet 1 mg PO DAILY 30 Days Qty: 30 RF: 0 Referrals: ROD MONTEIRO [Other] Print Language: Mongolian Disposition Disposition: Home, Self Care
[2021-08-19 16:50] VITALS: O2SAT 97
[2021-08-19] MEDS: MethylPREDNISolone 125 MG/2 ML Vial IV (16:52)
[2021-08-19] MEDS: Ipratropium/Albuterol Sulfate 3 ML AMPUL.NEB INHALATION (16:56)
[2021-08-19] MEDS: Albuterol 2.5 MG/3 ML VIAL.NEB. 5 MG INHALATION (16:56)
[2021-08-19 16:57] VITALS: PULSE 93; RESP 18
[2021-08-19 17:04] LABS: Absolute Lymphocyte Count 1.28 X10^3/uL (0.83-4.51); Absolute Neutrophil Count 2.4 X10^3/uL (2.0-7.7); Basophil# 0.04 X10^3/uL; Basophil% 0.8 % (0-1); Eosinophil# 0.55 X10^3/uL; Eosinophils% 11.5 % (0-5); Hematocrit 37.4 % (37-47); Hemoglobin 12.3 g/dL (12.0-15.0); Lymphocyte # 1.28 X10^3/ul (0.83-4.51); Lymphocyte % 26.7 % (19-41); Mean Corp Hgb Conc 32.9 g/dL (32-36); Mean Corpuscular Hgb 29.1 pg (27.0-32.0); Mean Corpuscular Volume 88.4 fL (81-99); Mean Platelet Vol. 8.7 fl (6.2-12.0); Monocyte# 0.47 X10^3/uL; Monocyte% 9.8 % (0-10); NRBC Flagged by Analyzer 0 % (0-5); Neutrophil # 2.42 X10^3/uL (2.7-7.7); Neutrophil % 50.4 % (47-70); Platelet Count 192 K/mm3 (150-450); RBC Distribution Width CV 12.1 % (11.6-14.6); RBC Distribution Width SD 38.5 fl (35.1-43.9); Red Blood Count 4.23 M/mm3 (4.2-5.4); White Blood Count 4.8 K/mm3 (4.4-11.0)
--- NOTE | 2021-08-19 17:15 | RAD_ITS ---
INDICATION: Short of breath EXAMINATION/TECHNIQUE: X-RAY - XR Chest 1 View COMPARISON: 07/15/2021. FINDINGS: The lungs are clear. The cardiomediastinal silhouette is unremarkable. No pleural effusion or pneumothorax. No acute osseous abnormalities. RAD/Chest 1 View (Portable) IMPRESSION: No acute radiographic abnormalities. Electronically Signed: Jorge Glover MD at 18:00 EDT ,
[2021-08-19 17:24] LABS: Anion Gap 5 (5-15); BUN 10 mg/dL (7-18); BUN/Creat Ratio 9.8 RATIO (10-20); Calcium,Total 9.1 mg/dL (8.5-10.1); Chloride 109 mmol/L (98-107); Creatinine, Serum 1.02 mg/dL (0.55-1.02); EST Glomerular Filtration Rate 59 mL/min (>60); Est Glom Filt Rate - Afr Amer 72 mL/min (>60); Estimated Creatinine Clearance 48.13 ml/min; Glucose 109 mg/dL (74-106); Potassium 4.1 mmol/L (3.5-5.1); Sodium Level 141 mmol/L (136-145); Troponin-I HS < 3 pg/mL (3.0-54.0)
[2021-08-19 17:46] VITALS: O2SAT 94
--- NOTE | 2021-08-22 12:28 | CM.ED ---
ER RNCM DC F/u Call: Seen in ER 08/19/21 for Asthma Exacerbation Called patient on listed cell phone number. Patient answered and this telegraphic typewriter operator chief introduced self and role. Patient states that she is feeling a lot better and believes that the Prednisone is helping. States the Tessalon Perrles really help has well. Still has some wheezing but overall improved. Confirmed does have an inhaler that is prescribed Q4hrs prn. Encouraged to discuss with PCP further treatment plan should she continue to have more frequent Asthma exacerbations as patient was noted to be admitted to hospital approx 1month ago for same. Patient states understanding and no further voiced needs, issues, or concerns to this telegraphic typewriter operator chief at this time. Margo Griggs RNCM
== END 2021-08-19 18:02 | disposition home or self-care (01) ==
PROVIDERS: Nurse Practitioner; Emergency Provider Emergency Medicine; Visit Provider Emergency Medicine
DX: J45.901 Unspecified asthma with (acute) exacerbation (principal); F31.9 Bipolar disorder, unspecified; E11.9 Type 2 diabetes mellitus without complications; Z20.822 Contact with and (suspected) exposure to COVID-19; Z77.22 Contact with and (suspected) exposure to environmental tobacco smoke (acute) (chronic); Z79.84 Long term (current) use of oral hypoglycemic drugs; Z79.899 Other long term (current) drug therapy
CPT/HCPCS: 71045; 80048; 84484; 85025; 87428; 93005; 94640; 96374; 99283; A4216

== ENCOUNTER 2021-08-26 11:14 | Emergency (ER) | payer MEDICAID, SELFPAY ==
[2021-08-26 11:17] VITALS: BP 136/81; PULSE 101; RESP 17; TEMP 36.4; O2SAT 97; BMI 30.2
--- NOTE | 2021-08-26 11:32 | EX.ED.VIS.HA ---
HPI History of Present Illness Chief Complaint: Headache Narrative Narrative: 55-year-old female presenting with scalp pain. This started about 3 days ago. Has been progressively worse. She has not seen anybody for this. She states that there is one area on the apex of her scalp that is tender to touch. She denies any trauma. No headache or visual complaints. No dizziness. No systemic signs or symptoms of infection. No history of MRSA. [facility] Medical History Asthma Bipolar 1 disorder Depression Diabetes History of diverticulitis Hx of intestinal obstruction PTSD (post-traumatic stress disorder) Home Medications amitriptyline 20 mg PO TID 07/15/21 [History Last Taken 1 Day Ago ~07/14/21] citalopram 60 mg PO DAILY 07/15/21 [History Last Taken 1 Day Ago ~07/14/21] clonazepam 0.5 mg PO DAILY 07/15/21 [History Last Taken 07/14/21 08:00] haloperidol 5 mg PO QHS 07/15/21 [History Last Taken 07/14/21 22:00] hydroxyzine HCl 50 mg PO Q8 PRN 07/15/21 [History Last Taken 1 Day Ago ~07/14/21] metformin 500 mg PO BID 07/15/21 [History Last Taken 1 Day Ago ~07/14/21] prazosin 1 mg PO QHS 07/15/21 [History Last Taken Unknown] trazodone 150 mg PO QHS 07/15/21 [History Last Taken 1 Day Ago ~07/14/21] albuterol sulfate 2 puff INHALATION Q6H PRN #8.5 g 07/16/21 [Rx Last Taken Unknown] benztropine 1 mg PO DAILY 30 Days #30 tab 07/16/21 [Rx Last Taken Unknown] guaifenesin [Mucus Relief ER] 1,200 mg PO BID 14 Days #28 tab 07/16/21 [Rx Last Taken Unknown] prednisone See Taper PO DAILY #30 tab 07/16/21 [Rx Last Taken Unknown] benzonatate 100 mg PO TID #14 cap 08/19/21 [Rx Last Taken Unknown] benzonatate 100 mg PO TID PRN 5 Days cap 08/19/21 [Rx Last Taken Unknown] benzonatate 200 mg PO BID PRN #10 cap 08/19/21 [Rx Last Taken Unknown] prednisone 40 mg PO DAILY 5 Days #10 tab 08/19/21 [Rx Last Taken Unknown] cephalexin 500 mg PO Q6 #40 cap 08/26/21 [Rx Last Taken Unknown] oxycodone 5 mg PO Q6H PRN 3 Days #12 tab 08/26/21 [Rx Last Taken Unknown] Allergy/AdvReac Type Severity Reaction Status Date / Time aminophylline Allergy Swelling Verified 08/26/21 11:16 amphetamine [From Adderall] Allergy Other Verified 08/26/21 11:16 dextroamphetamine Allergy Other Verified 08/26/21 11:16 [From Adderall] Iodinated Contrast Media [CT] Allergy Swelling Verified 08/26/21 11:16 iodine Allergy Swelling Verified 08/26/21 11:16 povidone-iodine Allergy Swelling Verified 08/26/21 11:16 [From Betadine] shellfish derived Allergy Swelling Verified 08/26/21 11:16 Sulfa (Sulfonamide Allergy Swelling Verified 08/26/21 11:16 Antibiotics) tetracycline AdvReac Rash Verified 08/26/21 11:16 Family History Father Diabetes Mother Diabetes Surgical History History of intestinal surgery History of lumpectomy of right breast Hx of appendectomy Hx of bilateral oophorectomy Hx of hysterectomy Hx of repair of right rotator cuff Social History household members: spouse Smoking Status: Never smoker alcohol intake: never substance use type: does not use ROS ROS ED Constitutional Constitutional ED: Denies chills or fever(s) Eyes Eyes: Denies blurry vision ENT ENT ED: Denies rhinorrhea or sore throat Cardiovascular Cardiovascular: Denies chest pain or palpitations Respiratory/Chest Respiratory/Chest: Denies cough or dyspnea Gastrointestinal Gastrointestinal: Denies abdominal pain, nausea or vomiting Genitourinary Genitourinary ED: Denies dysuria or hematuria Musculoskeletal Musculoskeletal: Denies arthralgias or myalgias Integumentary Reports other Details: Scalp rash and pain Neurologic Neurologic: Denies headache(s) or paresthesias Psychiatric Psychiatric: Denies anxiety or depression EXAM Physical Exam Const Vital Signs: 08/26/21 11:17 Temperature 97.6 F L Temperature Source Temporal Pulse Rate 101 H Respiratory Rate 17 Blood Pressure 136/81 H Blood Pressure Mean 99 Pulse Ox 97 Oxygen Delivery Method Room Air Positive well nourished General Appearance ED: NAD HEENT Reports normocephalic HEENT Narrative: 3 x 3 cm area at the vertex of the scalp erythematous and tender. No fluctuance. No drainage. No dermatomal pattern to suggest shingles. atraumatic Eyes PERRL and EOMs intact bilaterally Resp normal respiratory effort and clear to auscultation bilaterally Cardio regular rate and regular rhythm Neuro CN's II-XII intact bilaterally Sensorium / Orientation: awake and alert Psych mental status grossly normal Skin Skin Narrative: As described above MDM MDM MDM Narrative Medical decision making narrative: Patient presenting with?At the vertex of her scalp which is tender to palpation. She has no systemic signs of infection. No headache. No linear dermatomal pattern to suggest shingles. Does appear to be consistent with cellulitis. Patient was started on Keflex. She states that Tylenol and ibuprofen have not helped for her pain at home. She is given a short supply of oxycodone. She is to follow-up with her primary care physician to ensure resolution. Impression: 1. Cellulitis Discharge Plan Triage Chief Complaint: Headache ED Provider: Aniceto Tillman Dx/Rx/DC Orders Instructions: ED Cellulitis Prescriptions: New oxycodone 5 mg tablet 5 mg PO Q6H PRN (Reason: pain) 3 Days Qty: 12 RF: 0 cephalexin 500 mg capsule 500 mg PO Q6 Qty: 40 RF: 0 No Action haloperidol 5 mg tablet 5 mg PO QHS RF: 0 clonazepam 0.5 mg tablet 0.5 mg PO DAILY RF: 0 citalopram 40 mg tablet 60 mg PO DAILY RF: 0 hydroxyzine HCl 50 mg tablet 50 mg PO Q8 PRN (Reason: anxiety) RF: 0 prazosin 1 mg capsule 1 mg PO QHS RF: 0 trazodone 150 mg tablet 150 mg PO QHS RF: 0 metformin 500 mg tablet extended release 24 hr 500 mg PO BID RF: 0 amitriptyline 10 mg tablet 20 mg PO TID RF: 0 Mucus Relief ER 1,200 mg Tablet Extended Release 12hr 1,200 mg PO BID 14 Days Qty: 28 RF: 0 prednisone 10 mg tablet See Taper mg PO DAILY Qty: 30 RF: 0 albuterol sulfate 90 mcg/actuation HFA aerosol inhaler 2 puff inhalation Q6H PRN (Reason: shortness of breath or wheezing) Qty: 8.5 RF: 0 benztropine 1 mg tablet 1 mg PO DAILY 30 Days Qty: 30 RF: 0 benzonatate 100 mg capsule 100 mg PO TID Qty: 14 RF: 0 prednisone 20 mg tablet 40 mg PO DAILY 5 Days Qty: 10 RF: 0 benzonatate 100 mg capsule 100 mg PO TID PRN (Reason: cough) 5 Days RF: 0 benzonatate 200 mg capsule 200 mg PO BID PRN (Reason: cough) Qty: 10 RF: 0 Primary Care Provider: [facility] Doctor,Out of Referrals: [facility] Doctor,Out of [Primary Care Provider] - Disposition Disposition: Home, Self Care
[2021-08-26] MEDS: oxyCODONE 5 MG Tablet PO (11:34)
[2021-08-26] MEDS: Cephalexin 250 MG Capsule 500 MG PO (11:34)
== END 2021-08-26 11:40 | disposition home or self-care (01) ==
LOC: ED 11:40
PROVIDERS: Emergency Provider Student in an Organized Health Care Education/Training Program; Visit Provider Student in an Organized Health Care Education/Training Program
DX: L03.811 Cellulitis of head [any part, except face] (principal); F31.9 Bipolar disorder, unspecified; E11.9 Type 2 diabetes mellitus without complications; J45.909 Unspecified asthma, uncomplicated; Z79.84 Long term (current) use of oral hypoglycemic drugs; Z79.899 Other long term (current) drug therapy
CPT/HCPCS: 99283

== ENCOUNTER 2021-10-04 10:08 | Inpatient (IN) | payer MEDICAID, SELFPAY ==
[2021-10-04] VITALS (9 sets, daily range): BP systolic 115–152; BP diastolic 68–74; PULSE 90–104; RESP 15–22; TEMP 36.4–38.4; O2SAT 94–99; BMI 29.2; BMI 29.5
--- NOTE | 2021-10-04 10:51 | EDS_ITS ---
HPI <JHONY Chua - Last Filed: 10/04/21 12:25> History of Present Illness Chief Complaint: Abscess Narrative Narrative: 55-year-old female with history of diabetes, COPD, CAD, hyperlipidemia, fibromyalgia depression, anxiety presents the emergency departm ent with 5 days of an abscess to her right axilla. Patient states that she popped it 2 days ago, and there is been drainage however she has redness to her right arm as well as to her right breast that is very painful. Patient is here for evaluation denies any fevers or chills. Does state that have yellow to bullock drainage from the wound continuously. PFSH <JHONY Chua - Last Filed: 10/04/21 12:25> [facility] Medical History Asthma Bipolar 1 disorder Depression Diabetes History of diverticulitis Hx of intestinal obstruction PTSD (post-traumatic stress disorder) Home Medications amitriptyline 20 mg PO TID 07/15/21 [History Last Taken 1 Day Ago ~07/14/21] citalopram 60 mg PO DAILY 07/15/21 [History Last Taken 1 Day Ago ~07/14/21] haloperidol 5 mg PO QHS 07/15/21 [History Last Taken 07/14/21 22:00] hydroxyzine HCl 50 mg PO Q8 PRN 07/15/21 [History Last Taken 1 Day Ago ~07/14/21] metformin 500 mg PO BID 07/15/21 [History Last Taken 1 Day Ago ~07/14/21] prazosin 1 mg PO QHS 07/15/21 [History Last Taken Unknown] trazodone 150 mg PO QHS 07/15/21 [History Last Taken 1 Day Ago ~07/14/21] albuterol sulfate 2 puff INHALATION Q6H PRN #8.5 g 07/16/21 [Rx Last Taken Unknown] benztropine 1 mg PO BID 10/04/21 [History Last Taken Unknown] fluticasone propion-salmeterol [Advair HFA] 1 puff INHALATION BID 10/04/21 [History Last Taken Unknown] Allergy/AdvReac Type Severity Reaction Status Date / Time aminophylline Allergy Swelling Verified 10/04/21 10:11 amphetamine [From Adderall] Allergy Other Verified 10/04/21 10:11 dextroamphetamine Allergy Other Verified 10/04/21 10:11 [From Adderall] Iodinated Contrast Media [CT] Allergy Swelling Verified 10/04/21 10:11 iodine Allergy Swelling Verified 10/04/21 10:11 povidone-iodine Allergy Swelling Verified 10/04/21 10:11 [From Betadine] shellfish derived Allergy Swelling Verified 10/04/21 10:11 Sulfa (Sulfonamide Allergy Swelling Verified 10/04/21 10:11 Antibiotics) tetracycline AdvReac Rash Verified 10/04/21 10:11 Family History Father Diabetes Mother Diabetes Surgical History History of intestinal surgery History of lumpectomy of right breast Hx of appendectomy Hx of bilateral oophorectomy Hx of hysterectomy Hx of repair of right rotator cuff Social History household members: spouse Smoking Status: Never smoker alcohol intake: never substance use type: does not use ROS <JHONY Chua - Last Filed: 10/04/21 12:25> [facility] ROS Narrative Constitutional: Negative for fever, chills, weight loss, weakness Eyes: Negative for vision loss, vision change, double vision ENT: Negative for any sore throat, ear pain, congestion Cardiovascular: Negative for any chest pain, tightness, palpitations, racing heartbeat Respiratory: Negative for any cough, sputum production, hemoptysis, shortness of breath, shortness of breath on exertion, orthopnea Gastrointestinal: Negative for any abdominal pain, nausea, vomiting, diarrhea, constipation, blood in stool, blood in vomit : Negative for any urinary frequency, incontinence, dysuria, retention, blood in urine Muscle skeletal: Negative for any muscle joint pain, stiffness, myalgias, arthralgias, neck pain, back pain Neurological: Negative for any headache, dizziness, syncope, numbness or tingling Skin: Negative for any rashes, itching, abrasions, lacerations. Positive for redness to the armpit, right arm, right breast Psychiatric: Negative for any depression, anxiety, stress, suicidal ideation, homicidal ideation Hematologic: Negative for any easy bruising, excessive bruising, easy bleeding Allergies: Negative for any eczema, hives, rash EXAM <JHONY Chua - Last Filed: 10/04/21 12:25> Physical Exam Narrative Exam Narrative: Vital signs reviewed. HEET: Head normocephalic atraumatic, TMs clear bilaterally. Posterior pharynx is clear, moist mucous membranes. Nares clear bilaterally. Neck: Supple with no lymphadenopathy or tenderness. No signs of meningismus, negative jolt sign. Cardiac: Regular rate and rhythm no murmurs gallops or rubs, equal peripheral pulses bilaterally. Respiratory: Lungs clear to auscultation bilaterally. Chest tenderness to the right breast Abdomen: Soft, nontender, nondistended. No abdominal bruit or pulsatile masses. No hepatosplenomegaly Extremities: No peripheral edema, no signs of gross trauma or deformity. Active full range of motion of all extremities. Patient has significant cellulitis stemming from the right axilla. There is erythema, edema, pain on palpation to the right posterior arm to the elbow. As well as to the right chest and majority of the right breast. There is only 1 area of drainage from the axilla, the rest the skin is warm to the touch, indurated, painful on palpation. Neuro: Cranial nerves II through XII intact, no focal neurological deficits. Skin: Clean dry and intact with no rash, purpura, petechiae, vesicles or pustules. Backslash flank: No CVA tenderness, no midline spinal tenderness, no deformity. Psych: Normal mood and affect. No SI, HI or acute psychosis. Const Vital Signs: 10/04/21 10:09 10/04/21 11:31 10/04/21 11:35 Temperature 97.5 F L 97.5 F L 98.4 F Temperature Source Temporal Temporal Oral Pulse Rate 97 92 Respiratory Rate 15 20 H Blood Pressure 115/70 119/70 Blood Pressure Mean 85 86 Pulse Ox 95 Oxygen Delivery Method Room Air Room Air 10/04/21 12:26 10/04/21 12:28 Temperature 98.8 F 98.8 F Temperature Source Oral Oral Pulse Rate 90 90 Respiratory Rate 22 H 22 H Blood Pressure 134/74 H 134/74 H Blood Pressure Mean 94 94 Pulse Ox Oxygen Delivery Method Room Air Positive well nourished and well developed General Appearance ED: well developed <Dr. Jason Mcmahon DO - Last Filed: 10/04/21 12:37> Physical Exam Const Vital Signs: 10/04/21 10:09 10/04/21 11:31 10/04/21 11:35 Temperature 97.5 F L 97.5 F L 98.4 F Temperature Source Temporal Temporal Oral Pulse Rate 97 92 Respiratory Rate 15 20 H Blood Pressure 115/70 119/70 Blood Pressure Mean 85 86 Pulse Ox 95 Oxygen Delivery Method Room Air Room Air 10/04/21 12:26 10/04/21 12:28 Temperature 98.8 F 98.8 F Temperature Source Oral Oral Pulse Rate 90 90 Respiratory Rate 22 H 22 H Blood Pressure 134/74 H 134/74 H Blood Pressure Mean 94 94 Pulse Ox Oxygen Delivery Method Room Air MDM <JALYN ChuaC - Last Filed: 10/04/21 12:25> MDM MDM Narrative Medical decision making narrative: Patient appears to be in slight discomfort secondary to cellulitis, patient upon initial examination did receive a full sepsis work-up with 2 sets of blood cultures, IV fluids, IV pain medicine as well as IV antibiotics. Patient laboratory studies show a normal CBC, patient's chemistries show an elevated blood sugar at 347, patient's lactic acid was slightly elevated 2.1. Patient was started on IV Unasyn, wound cultures, blood cultures x2 were completed. Patient also received IV fluids, IV Zofran, IV morphine. Due to the extensive cellulitis to the patient's right axilla, right breast, right arm, I do believe the patient needs to be admitted to the hospital. Patient be admitted to the hospitalist Lab Data Attestation: I reviewed the patient's lab results. Labs: Laboratory Results - last 24 hr 10/04/21 10/04/21 10/04/21 10:50 10:50 10:50 WBC 8.1 RBC 3.59 L Hgb 10.3 L Hct 31.2 L MCV 86.9 MCH 28.7 MCHC 33.0 RDW Std Deviation 41.2 RDW Coeff of Elsi 12.8 Plt Count 170 MPV 9.9 Immature Gran % (Auto) 4.200 H Neut % (Auto) 79.2 H Lymph % (Auto) 6.9 L [place] % (Auto) 6.8 Eos % (Auto) 2.7 Baso % (Auto) 0.2 Absolute Neuts (auto) 6.4 Absolute Lymphs (auto) 0.56 L Nucleated RBC % 0 Differential Comment SCANNED PT 14.8 INR 1.2 APTT 29.6 Sodium 136 Potassium 3.2 L Chloride 100 Carbon Dioxide 25.0 Anion Gap 11 BUN 15 Creatinine 1.24 H Estim Creat Clear Calc 39.59 Est GFR (MDRD) Af Amer 57 L Est GFR (MDRD) Non-Af 47 L BUN/Creatinine Ratio 12.1 Glucose 347 H Lactic Acid Calcium 9.0 Total Bilirubin 0.30 AST 9 L ALT 13 Alkaline Phosphatase 143 H Total Protein 6.1 L Albumin 2.2 L Globulin 3.9 Albumin/Globulin Ratio 0.6 L 10/04/21 10:50 WBC RBC Hgb Hct MCV MCH MCHC RDW Std Deviation RDW Coeff of Elsi Plt Count MPV Immature Gran % (Auto) Neut % (Auto) Lymph % (Auto) [place] % (Auto) Eos % (Auto) Baso % (Auto) Absolute Neuts (auto) Absolute Lymphs (auto) Nucleated RBC % Differential Comment PT INR APTT Sodium Potassium Chloride Carbon Dioxide Anion Gap BUN Creatinine Estim Creat Clear Calc Est GFR (MDRD) Af Amer Est GFR (MDRD) Non-Af BUN/Creatinine Ratio Glucose Lactic Acid 2.1 H* Calcium Total Bilirubin AST ALT Alkaline Phosphatase Total Protein Albumin Globulin Albumin/Globulin Ratio <Dr. Jason Mcmahon, DO - Last Filed: 10/04/21 12:37> [facility] Narrative Medical decision making narrative: I have personally performed a face to face assessment of the patient and have reviewed the VICK Note. I performed a substantive portion of the visit including all aspects of the following. My sanchez findings include: History: Patient presents with abscess under her right axilla that has been getting worse over the past few days. Patient drained the area herself. Patient states that the redness and swelling is getting worse. Patient states the redness is spreading to her right arm and right chest wall and right breast. Patient denies any fevers or chills. Patient denies any nausea or vomiting. Exam: Vital signs are stable. Patient is afebrile. Patient is in no acute distress. Skin is warm and dry. There is small area of abscess formation in the right axilla that has been opened and drained. There is erythema and warmth over the medial aspect of the right upper arm to the elbow and on the right chest wall and right breast. There are no vesicles noted. There are no other pustules noted. There is no discharge or drainage. There are no petechia noted. Medical Decison Making CBC was within normal limits. PT was INR and PTT were within normal limits. Comprehensive metabolic profile shows an elevated glucose of 347 and a slightly elevated creatinine of 1.24. Lactic acid was slightly elevated at 2.1. Patient was started on Unasyn here. Case was discussed with the hospitalist. He will admit the patient to his service. Patient understood and was agreeable with the plan. All questions were answered. Lab Data Labs: Laboratory Results - last 24 hr 10/04/21 10/04/21 10/04/21 10:50 10:50 10:50 WBC 8.1 RBC 3.59 L Hgb 10.3 L Hct 31.2 L MCV 86.9 MCH 28.7 MCHC 33.0 RDW Std Deviation 41.2 RDW Coeff of Elsi 12.8 Plt Count 170 MPV 9.9 Immature Gran % (Auto) 4.200 H Neut % (Auto) 79.2 H Lymph % (Auto) 6.9 L [place] % (Auto) 6.8 Eos % (Auto) 2.7 Baso % (Auto) 0.2 Absolute Neuts (auto) 6.4 Absolute Lymphs (auto) 0.56 L Nucleated RBC % 0 Differential Comment SCANNED PT 14.8 INR 1.2 APTT 29.6 Sodium 136 Potassium 3.2 L Chloride 100 Carbon Dioxide 25.0 Anion Gap 11 BUN 15 Creatinine 1.24 H Estim Creat Clear Calc 39.59 Est GFR (MDRD) Af Amer 57 L Est GFR (MDRD) Non-Af 47 L BUN/Creatinine Ratio 12.1 Glucose 347 H Lactic Acid Calcium 9.0 Total Bilirubin 0.30 AST 9 L ALT 13 Alkaline Phosphatase 143 H Total Protein 6.1 L Albumin 2.2 L Globulin 3.9 Albumin/Globulin Ratio 0.6 L 10/04/21 10:50 WBC RBC Hgb Hct MCV MCH MCHC RDW Std Deviation RDW Coeff of Elsi Plt Count MPV Immature Gran % (Auto) Neut % (Auto) Lymph % (Auto) [place] % (Auto) Eos % (Auto) Baso % (Auto) Absolute Neuts (auto) Absolute Lymphs (auto) Nucleated RBC % Differential Comment PT INR APTT Sodium Potassium Chloride Carbon Dioxide Anion Gap BUN Creatinine Estim Creat Clear Calc Est GFR (MDRD) Af Amer Est GFR (MDRD) Non-Af BUN/Creatinine Ratio Glucose Lactic Acid 2.1 H* Calcium Total Bilirubin AST ALT Alkaline Phosphatase Total Protein Albumin Globulin Albumin/Globulin Ratio Discharge Plan Disposition Disposition: Acute Care Hospital [facility]
[2021-10-04 11:01] LABS: Absolute Lymphocyte Count 0.56 X10^3/uL (0.83-4.51); Absolute Neutrophil Count 6.4 X10^3/uL (2.0-7.7); Basophil# 0.02 X10^3/uL; Basophil% 0.2 % (0-1); Eosinophil# 0.22 X10^3/uL; Eosinophils% 2.7 % (0-5); Hematocrit 31.2 % (37-47); Hemoglobin 10.3 g/dL (12.0-15.0); Lymphocyte # 0.56 X10^3/ul (0.83-4.51); Lymphocyte % 6.9 % (19-41); Mean Corpuscular Hgb 28.7 pg (27.0-32.0); Mean Corpuscular Volume 86.9 fL (81-99); Mean Platelet Vol. 9.9 fl (6.2-12.0); Monocyte# 0.55 X10^3/uL; Monocyte% 6.8 % (0-10); NRBC Flagged by Analyzer 0 % (0-5); Neutrophil # 6.43 X10^3/uL (2.7-7.7); Neutrophil % 79.2 % (47-70); POSITIVE DIFFERENTIAL YES; Platelet Count 170 K/mm3 (150-450); RBC Distribution Width CV 12.8 % (11.6-14.6); RBC Distribution Width SD 41.2 fl (35.1-43.9); Red Blood Count 3.59 M/mm3 (4.2-5.4); White Blood Count 8.1 K/mm3 (4.4-11.0)
[2021-10-04 11:05] LABS: Differential Indicated SCAN CRITERIA MET
[2021-10-04] MEDS: Morphine 4 MG/ML Syringe IV (11:06)
[2021-10-04] MEDS: 0.9% Normal Saline 1,000 ML 999 ML IV (11:06)
[2021-10-04] MEDS: Ondansetron 4 MG/2 ML Vial IV (11:06)
[2021-10-04 11:13] LABS: International Normalized Ratio 1.2; Prothrombin Time (Protime)PT. 14.8 SECONDS (11.7-14.9)
[2021-10-04 11:14] LABS: Partial Thromboplast Time 29.6 Seconds (24.1-36.2)
[2021-10-04 11:18] LABS: ALB/GLOB Ratio 0.6 RATIO (0.9-2.4); AST(SGOT) 9 U/L (15-37); Alanine Aminotransfer ALT/SGPT 13 U/L (13-56); Albumin, Serum 2.2 g/dL (3.2-5.0); Alkaline Phosphatase 143 U/L (45-117); Anion Gap 11 (5-15); BUN 15 mg/dL (7-18); BUN/Creat Ratio 12.1 RATIO (10-20); Chloride 100 mmol/L (98-107); Creatinine, Serum 1.24 mg/dL (0.55-1.02); EST Glomerular Filtration Rate 47 mL/min (>60); Est Glom Filt Rate - Afr Amer 57 mL/min (>60); Estimated Creatinine Clearance 39.59 ml/min; Globulin 3.9 g/dL (2.2-4.2); Glucose 347 mg/dL (74-106); Potassium 3.2 mmol/L (3.5-5.1); Protein, Total 6.1 g/dL (6.4-8.2); Sodium Level 136 mmol/L (136-145)
[2021-10-04 11:42] LABS: Lactic Acid 2.1 mmol/L (0.4-1.9)
[2021-10-04 11:45] LABS: Differential Comment SCANNED
--- NOTE | 2021-10-04 12:17 | PCM.HP.STD ---
HPI - General General Date of Admission: 10/04/21 Date of Service: 10/04/21 Chief Complaint: Lump under right armpit with redness for 5 days HPI Narrative LEAH JERRY, is a 55 F came to ED for right armpit redness, purulent drainage, swelling with pain for last 5 days. Started with red spot in the right armpit and she popped it about 2 days ago which worsened the drainage and become further painful swollen and erythematous. This is spread to her lateral aspect of right breast and upper posterior medial aspect of right arm. She denies any fever or chills. There is purulent drainage coming out from right armpit. Patient denies any previous history of right finger infection, hidradenitis suppurativa or right breast abscess or mastitis. Lab work was done. Patient was started on IV Unasyn and further admitted [facility] Medical History Asthma Bipolar 1 disorder Depression Diabetes History of diverticulitis Hx of intestinal obstruction PTSD (post-traumatic stress disorder) Home Medications amitriptyline 20 mg PO TID 07/15/21 [History Last Taken 1 Day Ago ~07/14/21] citalopram 60 mg PO DAILY 07/15/21 [History Last Taken 1 Day Ago ~07/14/21] haloperidol 5 mg PO QHS 07/15/21 [History Last Taken 07/14/21 22:00] hydroxyzine HCl 50 mg PO Q8 PRN 07/15/21 [History Last Taken 1 Day Ago ~07/14/21] metformin 500 mg PO BID 07/15/21 [History Last Taken 1 Day Ago ~07/14/21] prazosin 1 mg PO QHS 07/15/21 [History Last Taken Unknown] trazodone 150 mg PO QHS 07/15/21 [History Last Taken 1 Day Ago ~07/14/21] albuterol sulfate 2 puff INHALATION Q6H PRN #8.5 g 07/16/21 [Rx Last Taken Unknown] benztropine 1 mg PO BID 10/04/21 [History Last Taken Unknown] fluticasone propion-salmeterol [Advair HFA] 1 puff INHALATION BID 10/04/21 [History Last Taken Unknown] Allergy/AdvReac Type Severity Reaction Status Date / Time aminophylline Allergy Swelling Verified 10/04/21 10:11 amphetamine [From Adderall] Allergy Other Verified 10/04/21 10:11 dextroamphetamine Allergy Other Verified 10/04/21 10:11 [From Adderall] Iodinated Contrast Media [CT] Allergy Swelling Verified 10/04/21 10:11 iodine Allergy Swelling Verified 10/04/21 10:11 povidone-iodine Allergy Swelling Verified 10/04/21 10:11 [From Betadine] shellfish derived Allergy Swelling Verified 10/04/21 10:11 Sulfa (Sulfonamide Allergy Swelling Verified 10/04/21 10:11 Antibiotics) tetracycline AdvReac Rash Verified 10/04/21 10:11 Family History Father Diabetes Mother Diabetes Surgical History History of intestinal surgery History of lumpectomy of right breast Hx of appendectomy Hx of bilateral oophorectomy Hx of hysterectomy Hx of repair of right rotator cuff Social History household members: spouse Smoking Status: Never smoker alcohol intake: never substance use type: does not use ROS ROS Narrative Constitutional: In pain due to right axillary infection HEENT: Reports systems reviewed and no addt'l complaints, except as documented Respiratory/Chest: Denies chest pain, shortness of breath at rest or with exertion Gastrointestinal: Mild nausea. Denies coffee ground emesis, hematemesis or vomiting Genitourinary: Denies burning urination or new urinary tract symptoms Musculoskeletal: Does not have joint pain and limited range of motion Neurologic: Denies seizure-like activity skin: Scaly, silvery, exfoliatary rash over both legs Endocrinology: Reports systems reviewed and no addt'l complaints, except as documented Hematologic/Lymphatic: Reports systems reviewed and no addt'l complaints, except as documented Rest 14 ROS are negative except as mentioned in HPI Vital Signs Vital Signs Vital Signs: 10/04/21 10:09 10/04/21 11:31 10/04/21 11:35 Temperature 97.5 F L 97.5 F L 98.4 F Temperature Source Temporal Temporal Oral Pulse Rate 97 92 Respiratory Rate 15 20 H Blood Pressure 115/70 119/70 Blood Pressure Mean 85 86 Pulse Ox 95 Oxygen Delivery Method Room Air Room Air Weight Weight: 160 lb Body Mass Index (BMI) 29.2 Physical Exam Narrative General: Alert, Oriented x3, Cooperative. No fever. HEENT: Atraumatic, PERRLA, EOMI, Normocephalic Oral: No Gingival or Mucosal Lesions/ Ulcerations Neck: Supple, No JVD, Negative Carotid Bruits Lungs: Air entry diminished in bilateral lung bases. No crepitation/rhonchi Cardiovascular: Regular rate, Regular Rhythm, Normal S1, Normal S2, No murmurs Abdomen: Bowel Sounds Present, Soft, Non Tender, Non-Distended : No renal angle tenderness. No suprapubic tenderness. Extremities: No edema, Capillary Refill Less than 3 Seconds Skin: Purulent draining, inflammatory swelling over right axillary area. Erythema and tenderness spreading over to lateral aspect of breast to posterior medial aspect of right arm. Musculoskeletal: No Tenderness to Palpation of Joints or Extremities Neurological: Cranial nerves II-XII grossly intact, DTR 2+/4 and Symmetrical, Neuro grossly intact Psych/Mental Status: Normal Affect, Appropriate. Results Lab / Micro Data Result Diagrams: 10/04/21 10:50 10/04/21 10:50 Labs: Laboratory Results - last 24 hr 10/04/21 10:50: WBC 8.1, RBC 3.59 L, Hgb 10.3 L, Hct 31.2 L, MCV 86.9, MCH 28.7, MCHC 33.0, RDW Std Deviation 41.2, RDW Coeff of Elsi 12.8, Plt Count 170, MPV 9.9, Immature Gran % (Auto) 4.200 H, Neut % (Auto) 79.2 H, Lymph % (Auto) 6.9 L, [place] % (Auto) 6.8, Eos % (Auto) 2.7, Baso % (Auto) 0.2, Absolute Neuts (auto) 6.4, Absolute Lymphs (auto) 0.56 L, Nucleated RBC % 0, Differential Comment SCANNED 10/04/21 10:50: PT 14.8, INR 1.2, APTT 29.6 10/04/21 10:50: Sodium 136, Potassium 3.2 L, Chloride 100, Carbon Dioxide 25.0, Anion Gap 11, BUN 15, Creatinine 1.24 H, Estim Creat Clear Calc 39.59, Est GFR (MDRD) Af Amer 57 L, Est GFR (MDRD) Non-Af 47 L, BUN/Creatinine Ratio 12.1, Glucose 347 H, Calcium 9.0, Total Bilirubin 0.30, AST 9 L, ALT 13, Alkaline Phosphatase 143 H, Total Protein 6.1 L, Albumin 2.2 L, Globulin 3.9, Albumin/Globulin Ratio 0.6 L 10/04/21 10:50: Lactic Acid 2.1 H* Assessment & Plan Assessment/Plan (1) Abscess of right axilla: (2) Mastitis, right, acute: PLAN: 1. Right axillary abscess with cellulitis spreading to lateral half of right breast, mastitis and posterior lateral aspect of right arm: I feel this is started from right arm folliculitis. Patient is started on Unasyn for broad coverage. Clindamycin for 3 doses for antitoxin effect and MRSA coverage. I feel fluctuation of her right axillary area, lateral aspect of breast is very tender and probably needs incision and drainage. General surgery Dr. Robert consulted. Blood cultures x2, wound culture, MRSA ordered. 2. Chronic intermittent asthma: Patient not in exacerbation. Patient is on albuterol inhaler as needed and Advair continued. 3. History of PTSD, anxiety and depression Bipolar 1 disorder: Patient is on multiple antipsychotic and antidepressant medications. On amitriptyline 20 mg 3 times daily, benztropine 1 mg twice daily, citalopram 60 mg daily, haloperidol 5 mg nightly, hydroxyzine 15 every 8 hourly as needed and trazodone 50 mg nightly. Twelve-lead EKG done. Normal sinus rhythm QTC 465 ms. Patient advised about side effect adverse effect of multiple antipsychotic medications, interactions and probability of increasing QT interval and torsades. Hold amitriptyline and haloperidol. Citalopram decreased to 40 mg daily. Hydroxyzine 25 milligrams 3 times daily as needed and trazodone continue. 3. diabetes mellitus type 2: Glucose is elevated 347. A1c tomorrow a.m. Accu-Chek insulin coverage Humalog sliding scale. Lantus 10 units subcutaneous daily. Hold metformin. 4. History of diverticulitis and intestinal obstruction in the past. No acute issues. Patient moving her bowel. No burning micturition. VTE prophylaxis: Moderate risk. Lovenox 40 subcu daily. Living will/advanced directive/end of life care: Patient does not have living will or advanced directive or designated power of sports attorney for healthcare and her is next of kin. After discussion of benefits/risks procedures involved with full code, DNR CC arrest and DNR CC, the patient and her opted for full code. Patient does want artificial life support including intubation, tube feed, ventilator and/chest compression, central venous catheter, vasopressor and DC shock if needed Total time spent in [id number] encounter in discussion of advanced directive 16 minutes. Charges/Coding Visit Charges Inpatient E&M: 19535 Init Hosp L3 Procedures Hospitalists Procedures: 33478 Advncd Care Plan 30 Min
--- NOTE | 2021-10-04 12:29 | EKG12_ITS ---
Test Reason : ABCESS Blood Pressure : / mmHG Vent. Rate : 094 BPM Atrial Rate : 094 BPM P-R Int : 146 ms QRS Dur : 088 ms QT Int : 372 ms P-R-T Axes : 022 -25 026 degrees QTc Int : 465 ms Normal sinus rhythm Normal ECG Confirmed by JOANN BURNETT, BRANDI ([id number]), acquisition editor LIAM MCCAIN ([id number]) on 10/08/2021 9:48:30 AM Referred By: [facility] Confirmed By:ADAM DAVID MD
[2021-10-04 13:07] LABS: Magnesium 2.1 mg/dL (1.6-2.6); Phosphorus 3.1 mg/dL (2.5-4.9)
[2021-10-04] MEDS: Lactated Ringers 1,000 ML 100 ML IV (13:49)
[2021-10-04] MEDS: oxyCODONE 5 MG Tablet PO (13:49)
--- NOTE | 2021-10-04 13:58 | NURSING ---
Report given to Yamilet RN nurse to take over care of pt
[2021-10-04] MEDS: Clindamycin 600 MG/50 ML BAG 100 MG IV (14:28)
[2021-10-04] MEDS: Insulin Lispro 100 UNIT/ML INSULN.PEN SC ×3 (14:29→21:48)
[2021-10-04] MEDS: Enoxaparin 40 MG/0.4 ML Syringe SC (14:35)
[2021-10-04] MEDS: Insulin Glargine-YFGN 100 UNIT/ML Pen 10 UNIT SC (14:39)
[2021-10-04 14:41] LABS: Bedside Glucose 220 mg/dL (74-106)
[2021-10-04 14:57] LABS: Reflex Lactate? Y
[2021-10-04] MEDS: HYDROmorphone 0.5 MG/0.5 ML SYRINGE IV ×2 (15:39→21:44)
[2021-10-04 15:44] LABS: Lactic Acid 1.9 mmol/L (0.4-1.9)
[2021-10-04 16:45] LABS: Probe Check PASS; Staph aureus DNA By PCR POSITIVE (Negative)
[2021-10-04 16:48] LABS: M R Staph aureus DNA By PCR POSITIVE (Negative)
[2021-10-04 17:30] LABS: Bedside Glucose 151 mg/dL (74-106)
--- NOTE | 2021-10-04 18:17 | US_ITS ---
STUDY: ULTRASOUND BREAST - RIGHT REASON FOR EXAM: Female, 55 years old. Possible abscess in the right axillary region. TECHNIQUE: Axial and longitudinal images of the RIGHT breast were performed with a high resolution ultrasound transducer. # OF IMAGES: 175 COMPARISON: None. FINDINGS: RIGHT Breast: The palpable abnormality corresponds to a 5.8 cm x 2.4 cm x 0.9 cm complex solid mass with cystic areas. This extends into the tail portion of the breast. Biopsy recommended. There is also evidence of a 1.2 cm x 1.2 cm x 0.9 cm hypoechoic irregular nodule at the 11 o''clock position of the breast at 9 cm from the nipple. Biopsy recommended. US/Breast Limited Unilateral IMPRESSION: The palpable amount to correspond to a 5.8 cm x 2.4 cm x 0.9 cm complex solid mass with cystic areas extending into the tibial portion of the pancreas. Tissue sampling recommended. There is also evidence of a 1.2 cm x 1.2 cm x 0.9 cm hypoechoic irregular nodule at the 11 o''clock position breast at 9 cm from nipple. Biopsy recommended. ASSESSMENT CATEGORY: BIRADS Category 4: Suspicious - Biopsy Should Be Considered. A letter regarding these results will be sent to the patient by the facility within 30 days. Electronically Signed: Henrry Barroso MD at 8:20 EDT ,
--- NOTE | 2021-10-04 18:26 | CON.PCM.SX_ITS ---
Assessment & Plan Assessment/Plan (1) Abscess of right axilla: (2) Mastitis, right, acute: PLAN: This is a 55-year-old female, with a history of type 2 diabetes, who presents with apparent MRSA infection of her right axilla and possibly right breast. Patient has a draining area of the axilla, but I feel a much larger subcutaneous area in the upper outer quadrant of the right breast. I would like to order a urgent ultrasound to assess for any fluid collections at that depth that may benefit from drainage. Given her exam, I am highly suspicious 1 will be found. Therefore, patient has been made n.p.o. at midnight and has been posted for an operative incision and drainage procedure. HPI Consult Data Date of Consult: 10/04/21 HPI Narrative HPI Narrative: LEAH JERRY, is a 55 F who presents to [facility] of 4 days of discomfort in her right armpit and upper/lateral portion of her right breast. She states that things began as a bump in her armpit that she squeezed to drain and thereafter noticed an increase in her tenderness. She has experienced drainage from this area?which was cultured in the ER and is consistent with MRSA by preliminary result. She denies any prior similar experiences. She denies any prior staph infections. She denies prior diagnosis of hidradenitis. She states that she uses an electric razor for her shaving of her underarms. When asked about possibility of insect bites, she confesses this is a possibility as there are lots of spiders around her home. She confirms that she has been up-to-date on her breast cancer screening?outside of last year when she lost insurance. She does have a family history of breast cancer in a paternal aunt who passed from this diagnosis in her mid 30s. Patient has a history of diabetes and states that her blood sugars have ranged from 1 50-2 50 recently. She is noted some higher values after a 14-day prednisone course for some increased difficulty with breathing. FORMERLY [facility], [facility] Medical History Asthma Bipolar 1 disorder Depression Diabetes History of diverticulitis Hx of intestinal obstruction PTSD (post-traumatic stress disorder) Home Medications amitriptyline 20 mg PO TID 07/15/21 [History Last Taken 1 Day Ago ~07/14/21] citalopram 60 mg PO DAILY 07/15/21 [History Last Taken 1 Day Ago ~07/14/21] haloperidol 5 mg PO QHS 07/15/21 [History Last Taken 07/14/21 22:00] hydroxyzine HCl 50 mg PO Q8 PRN 07/15/21 [History Last Taken 1 Day Ago ~07/14/21] metformin 500 mg PO BID 07/15/21 [History Last Taken 1 Day Ago ~07/14/21] prazosin 1 mg PO QHS 07/15/21 [History Last Taken Unknown] trazodone 150 mg PO QHS 07/15/21 [History Last Taken 1 Day Ago ~07/14/21] albuterol sulfate 2 puff INHALATION Q6H PRN #8.5 g 07/16/21 [Rx Last Taken Unknown] benztropine 1 mg PO BID 10/04/21 [History Last Taken Unknown] fluticasone propion-salmeterol [Advair HFA] 1 puff INHALATION BID 10/04/21 [History Last Taken Unknown] Allergy/AdvReac Type Severity Reaction Status Date / Time aminophylline Allergy Swelling Verified 10/04/21 10:11 amphetamine [From Adderall] Allergy Other Verified 10/04/21 10:11 dextroamphetamine Allergy Other Verified 10/04/21 10:11 [From Adderall] Iodinated Contrast Media [CT] Allergy Swelling Verified 10/04/21 10:11 iodine Allergy Swelling Verified 10/04/21 10:11 povidone-iodine Allergy Swelling Verified 10/04/21 10:11 [From Betadine] shellfish derived Allergy Swelling Verified 10/04/21 10:11 Sulfa (Sulfonamide Allergy Swelling Verified 10/04/21 10:11 Antibiotics) tetracycline AdvReac Rash Verified 10/04/21 10:11 Family History Father Diabetes Mother Diabetes Surgical History History of intestinal surgery History of lumpectomy of right breast Hx of appendectomy Hx of bilateral oophorectomy Hx of hysterectomy Hx of repair of right rotator cuff Social History household members: spouse Smoking Status: Never smoker alcohol intake: never substance use type: does not use Physical Exam Const alert and oriented x3 Constitutional Narrative: And significant discomfort from her right underarm inflammation General Appearance: cooperative Chest Breast/Axilla Inspection: abnormal inspection of the axilla suppurative lesions (There is a small draining abscess in the lower portion of the patient's axilla) and erythema and abnormal inspection of the breast edema (Patient with streaking redness across the lateral aspect of her right breast ) Breast/Axilla Palpation: abnormal palpation of the axillae and other Other Details: Approximately 6 x 12 cm area of fluctuance in the upper outer quadrant of right breast very tender to palpation Lab / Micro Data Result Diagrams: 10/04/21 10:50 10/04/21 10:50 Labs: Laboratory Results - last 24 hr 10/04/21 10:50: WBC 8.1, RBC 3.59 L, Hgb 10.3 L, Hct 31.2 L, MCV 86.9, MCH 28.7, MCHC 33.0, RDW Std Deviation 41.2, RDW Coeff of Elsi 12.8, Plt Count 170, MPV 9.9, Immature Gran % (Auto) 4.200 H, Neut % (Auto) 79.2 H, Lymph % (Auto) 6.9 L, [place] % (Auto) 6.8, Eos % (Auto) 2.7, Baso % (Auto) 0.2, Absolute Neuts (auto) 6.4, Absolute Lymphs (auto) 0.56 L, Nucleated RBC % 0, Differential Comment SCANNED 10/04/21 10:50: PT 14.8, INR 1.2, APTT 29.6 10/04/21 10:50: Sodium 136, Potassium 3.2 L, Chloride 100, Carbon Dioxide 25.0, Anion Gap 11, BUN 15, Creatinine 1.24 H, Estim Creat Clear Calc 39.59, Est GFR (MDRD) Af Amer 57 L, Est GFR (MDRD) Non-Af 47 L, BUN/Creatinine Ratio 12.1, Glucose 347 H, Calcium 9.0, Total Bilirubin 0.30, AST 9 L, ALT 13, Alkaline Phosphatase 143 H, Total Protein 6.1 L, Albumin 2.2 L, Globulin 3.9, Albumin/Globulin Ratio 0.6 L 10/04/21 10:50: Lactic Acid 2.1 H* 10/04/21 10:50: Phosphorus 3.1, Magnesium 2.1 10/04/21 13:43: S.aureus Protein A PCR POSITIVE H, MRSA (PCR) POSITIVE H 10/04/21 14:27: POC Glucose 220 H 10/04/21 15:07: Lactic Acid 1.9 10/04/21 17:17: POC Glucose 151 H Charges/Coding Visit Charges Inpatient E&M: 45621 Init Hosp L2
[2021-10-04] MEDS: Vancomycin IV 1,000 MG/200 ML BAG 200 MG IV (18:47)
[2021-10-04] MEDS: Albuterol 2.5 MG/3 ML VIAL.NEB. INHALATION (19:16)
[2021-10-04] MEDS: Budesonide Respules 0.5 MG/2 ML AMPUL.NEB. INHALATION (19:16)
--- NOTE | 2021-10-04 21:43 | PCM.RX.CS ---
Consult Pharmacy has been consulted to manage selected antiobiotic: Vancomycin Type of Consult: New start Labs: Sodium 136 mmol/L (136-145) 10/04/21 10:50 Potassium 3.2 mmol/L (3.5-5.1) L 10/04/21 10:50 Chloride 100 mmol/L (98-107) 10/04/21 10:50 Carbon Dioxide 25.0 mmol/L (21.0-32.0) 10/04/21 10:50 Anion Gap 11 (5-15) 10/04/21 10:50 BUN 15 mg/dL (7-18) 10/04/21 10:50 Creatinine 1.24 mg/dL (0.55-1.02) H 10/04/21 10:50 Est GFR (MDRD) Af Amer 57 mL/min (>60) L 10/04/21 10:50 Est GFR (MDRD) Non-Af 47 mL/min (>60) L 10/04/21 10:50 BUN/Creatinine Ratio 12.1 RATIO (10-20) 10/04/21 10:50 Glucose 347 mg/dL (74-106) H 10/04/21 10:50 Weight used for dosin kg Estimated Creatinine Clearance: 39 Goal Trough: 15-20 mcg/mL Pharmacy Plan for Drug Dosing: Pharmacy Service will continue to monitor and adjust dosing as required. Medications Vancomycin HCl (Vancomycin) 1,000 mg in 200 mls @ 200 mls/hr IV Q24H DEBORAH Discontinued Medications Vancomycin HCl (Vancomycin) 1,000 mg in 200 mls @ 200 mls/hr IV X1 ONE Stop: 10/04/21 18:59 Last Admin: 10/04/21 19:47 Dose: Infused Documented by: Follow-Up Labs: Trough Vancomycin Labs to be done on [date and time ordered]: 10/06 @ 8145
[2021-10-04] MEDS: 0.9% Saline Lock 10 ML Syringe IV (21:45)
[2021-10-04] MEDS: traZODone 50 MG Tablet 150 MG PO (21:46)
[2021-10-04] MEDS: Benztropine 2 MG Tablet 1 MG PO (21:46)
[2021-10-04] MEDS: hydrOXYzine PAM 25 MG Capsule PO (21:48)
[2021-10-04] MEDS: Doxazosin 1 MG Tablet PO (21:48)
[2021-10-04] MEDS: Acetaminophen 325 MG Tablet 650 MG PO (21:57)
[2021-10-04] MEDS: proCHLORPERazine 10 MG/2 ML Vial 5 MG IV (22:06)
[2021-10-05] VITALS (16 sets, daily range): BP systolic 114–155; BP diastolic 58–97; PULSE 70–101; RESP 12–20; TEMP 36.6–37.3; O2SAT 88–100; BMI 29.5
[2021-10-05 00:36] LABS: Bedside Glucose 238 mg/dL (74-106)
[2021-10-05] MEDS: Lactated Ringers 1,000 ML 100 ML IV (02:45)
[2021-10-05 05:20] LABS: Hematocrit 29.5 % (37-47); Hemoglobin 9.6 g/dL (12.0-15.0); Mean Corp Hgb Conc 32.5 g/dL (32-36); Mean Corpuscular Hgb 28.5 pg (27.0-32.0); Mean Corpuscular Volume 87.5 fL (81-99); Mean Platelet Vol. 9.6 fl (6.2-12.0); POSITIVE COUNT YES; POSITIVE MORPHOLOGY YES; Platelet Count 191 K/mm3 (150-450); RBC Distribution Width CV 13.1 % (11.6-14.6); RBC Distribution Width SD 42.3 fl (35.1-43.9); Red Blood Count 3.37 M/mm3 (4.2-5.4); White Blood Count 6.5 K/mm3 (4.4-11.0)
[2021-10-05 05:21] LABS: Differential Indicated MANUAL DIFF
[2021-10-05 05:38] LABS: Platelet Estimate ADEQUATE (ADEQ)
[2021-10-05 05:41] LABS: Red Cell Morphology NORM C+C NORMAL (NORM C&C)
[2021-10-05 05:42] LABS: Absolute Lymphocyte Count 1.04 X10^3/uL (0.83-4.51); Absolute Neutrophil Count 4.9 X10^3/uL (2.0-7.7); Neutrophil-Band 2 % (0-5); Neutrophil-Segmented 74 % (47-70); Total Cells Counted 100 (MANUAL DIFF)
[2021-10-05 05:43] LABS: Eosinophil 5 % (0-5); Lymphocyte 16 % (19-41); Monocyte 1 % (0-10); Myelocyte 2 % (0-0)
[2021-10-05 05:47] LABS: Anion Gap 7 (5-15); BUN 10 mg/dL (7-18); BUN/Creat Ratio 12.7 RATIO (10-20); Calcium,Total 8.5 mg/dL (8.5-10.1); Chloride 104 mmol/L (98-107); Creatinine, Serum 0.79 mg/dL (0.55-1.02); EST Glomerular Filtration Rate 80 mL/min (>60); Est Glom Filt Rate - Afr Amer 96 mL/min (>60); Estimated Creatinine Clearance 62.14 ml/min; Glucose 155 mg/dL (74-106); Potassium 3.1 mmol/L (3.5-5.1); Sodium Level 136 mmol/L (136-145)
[2021-10-05] MEDS: HYDROmorphone 0.5 MG/0.5 ML SYRINGE IV ×3 (06:55→22:48)
[2021-10-05] MEDS: proCHLORPERazine 10 MG/2 ML Vial 5 MG IV ×3 (06:55→21:39)
[2021-10-05 07:32] LABS: Hemoglobin A1c 8.2 % (3.8-5.6)
--- NOTE | 2021-10-05 07:37 | PCM.PN.HOSP ---
Subjective Subjective Follow-up for right axillary abscess extending to the right breast and medial aspect of right upper arm. Patient was taken to the OR therefore seen and examined in preop holding room. Objective Data Objective Data Vital Signs: Vital Signs Temp Pulse Resp BP Pulse Ox 99.1 F 85 16 155/82 H 96 10/05/21 03:30 10/05/21 03:30 10/05/21 03:30 10/05/21 03:30 10/05/21 03:30 Oxygen Delivery Method Room Air Weight: 161 lb 6.054 oz Body Mass Index (BMI) 29.5 Intake & Output: Intake and Output for Last 24 Hours 10/03/21 10/04/21 10/05/21 23:59 23:59 23:59 Intake Total 2642.33 / 2642.33 643.67 / 643.67 Balance 2642.33 / 2642.33 643.67 / 643.67 Lab / Micro Data Result Diagrams: 10/05/21 04:56 10/05/21 04:56 Labs: Laboratory Results - last 24 hr 10/04/21 10:50: WBC 8.1, RBC 3.59 L, Hgb 10.3 L, Hct 31.2 L, MCV 86.9, MCH 28.7, MCHC 33.0, RDW Std Deviation 41.2, RDW Coeff of Elsi 12.8, Plt Count 170, MPV 9.9, Immature Gran % (Auto) 4.200 H, Neut % (Auto) 79.2 H, Lymph % (Auto) 6.9 L, [place] % (Auto) 6.8, Eos % (Auto) 2.7, Baso % (Auto) 0.2, Absolute Neuts (auto) 6.4, Absolute Lymphs (auto) 0.56 L, Nucleated RBC % 0, Differential Comment SCANNED 10/04/21 10:50: PT 14.8, INR 1.2, APTT 29.6 10/04/21 10:50: Sodium 136, Potassium 3.2 L, Chloride 100, Carbon Dioxide 25.0, Anion Gap 11, BUN 15, Creatinine 1.24 H, Estim Creat Clear Calc 39.59, Est GFR (MDRD) Af Amer 57 L, Est GFR (MDRD) Non-Af 47 L, BUN/Creatinine Ratio 12.1, Glucose 347 H, Calcium 9.0, Total Bilirubin 0.30, AST 9 L, ALT 13, Alkaline Phosphatase 143 H, Total Protein 6.1 L, Albumin 2.2 L, Globulin 3.9, Albumin/Globulin Ratio 0.6 L 10/04/21 10:50: Lactic Acid 2.1 H* 10/04/21 10:50: Phosphorus 3.1, Magnesium 2.1 10/04/21 13:43: S.aureus Protein A PCR POSITIVE H, MRSA (PCR) POSITIVE H 10/04/21 14:27: POC Glucose 220 H 10/04/21 15:07: Lactic Acid 1.9 10/04/21 17:17: POC Glucose 151 H 10/04/21 21:41: POC Glucose 238 H 10/05/21 04:56: WBC 6.5, RBC 3.37 L, Hgb 9.6 L, Hct 29.5 L, MCV 87.5, MCH 28.5, MCHC 32.5, RDW Std Deviation 42.3, RDW Coeff of Elsi 13.1, Plt Count 191, MPV 9.6, Neut % (Auto) Not Reportable, Absolute Neuts (auto) 4.9, Absolute Lymphs (auto) 1.04, Total Counted 100, Neutrophils % (Manual) 74 H, Band Neutrophils % 2, Lymphocytes % (Manual) 16 L, Monocytes % (Manual) 1, Eosinophils % (Manual) 5, Myelocytes % 2 H, Diff Path Review September, Platelet Estimate ADEQUATE, RBC Morphology NORM C+C 10/05/21 04:56: Sodium 136, Potassium 3.1 L, Chloride 104, Carbon Dioxide 25.0, Anion Gap 7, BUN 10, Creatinine 0.79, Estim Creat Clear Calc 62.14, Est GFR (MDRD) Af Amer 96, Est GFR (MDRD) Non-Af 80, BUN/Creatinine Ratio 12.7, Glucose 155 H, Calcium 8.5 10/05/21 04:56: Hemoglobin A1c 8.2 H Physical Exam Narrative General: Alert, Oriented x3, Cooperative. No fever. HEENT: Atraumatic, PERRLA, EOMI, Normocephalic Oral: No Gingival or Mucosal Lesions/ Ulcerations Neck: Supple, No JVD, Negative Carotid Bruits Lungs: Air entry diminished in bilateral lung bases. No crepitation/rhonchi Cardiovascular: Regular rate, Regular Rhythm, Normal S1, Normal S2, No murmurs Abdomen: Bowel Sounds Present, Soft, Non Tender, Non-Distended : No renal angle tenderness. No suprapubic tenderness. Extremities: No edema, Capillary Refill Less than 3 Seconds Skin: Purulent drainage from right axillary area. Tender, edematous inflammatory swelling extending to right upper quadrant/right lateral half of breast and medial aspect of right upper arm. Musculoskeletal: No Tenderness to Palpation of Joints or Extremities Neurological: Cranial nerves II-XII grossly intact, DTR 2+/4 and Symmetrical, Neuro grossly intact Psych/Mental Status: Normal Affect, Appropriate. Assessment & Plan Assessment/Plan (1) Abscess of right axilla: (2) Mastitis, right, acute: PLAN: 1. Right axillary abscess with cellulitis spreading to lateral half of right breast, mastitis and posterior lateral aspect of right arm: I feel this is started from right arm folliculitis. Patient is started on Unasyn for broad coverage. Clindamycin for antitoxin effect and MRSA coverage. I feel fluctuation of her right axillary area, lateral aspect of breast is very tender and probably needs incision and drainage. General surgery Dr. Robert consulted. Blood cultures x2, wound culture, 10/05: MRSA nasal screen and wound positive is positive. Patient is started on vancomycin on 10/04. Clindamycin discontinued. Continue Unasyn. Cultures are pending. Right breast ultrasound shows 5.8 x 2.4 x 0.9 cm complex solid mass with cystic areas extending to tail portion of breast. Also 1.2 x 1.2 x 0.9 cm hypoechoic irregular nodule at 11 o'clock position at 9 cm from the nipple. Biopsy recommended. Operative report reviewed. Patient had incision and drainage of right breast and axillary abscess. It was tracking down and undermining 6 cm superior portion of breast and 4 cm posteriorly. Mild hypokalemia: Serum magnesium and phosphorus level normal. K3.1. IV KCl ordered. 2. Chronic intermittent asthma: Patient not in exacerbation. Patient is on albuterol inhaler as needed and Advair continued. 3. History of PTSD, anxiety and depression Bipolar 1 disorder: Patient is on multiple antipsychotic and antidepressant medications. On amitriptyline 20 mg 3 times daily, benztropine 1 mg twice daily, citalopram 60 mg daily, haloperidol 5 mg nightly, hydroxyzine 15 every 8 hourly as needed and trazodone 50 mg nightly. Twelve-lead EKG done. Normal sinus rhythm QTC 465 ms. Patient advised about side effect adverse effect of multiple antipsychotic medications, interactions and probability of increasing QT interval and torsades. Hold amitriptyline and haloperidol. Citalopram decreased to 40 mg daily. Hydroxyzine 25 milligrams 3 times daily as needed and trazodone continued. 3. diabetes mellitus type 2: Glucose is elevated 347. A1c 8.2%. Accu-Chek insulin coverage Humalog sliding scale. Lantus 10 units subcutaneous daily. Hold metformin. 10/05: Glucose is between 1 60-200. Increase the Lantus insulin. 4. History of diverticulitis and intestinal obstruction in the past. No acute issues. Patient moving her bowel. No burning micturition. VTE prophylaxis: Moderate risk. Lovenox 40 subcu daily. Living will/advanced directive/end of life care: Patient does not have living will or advanced directive or designated power of employee benefits attorney for healthcare and her is next of kin. After discussion of benefits/risks procedures involved with full code, DNR CC arrest and DNR CC, the patient and her opted for full code. Patient does want artificial life support including intubation, tube feed, ventilator and/chest compression, central venous catheter, vasopressor and DC shock if needed Total time spent in [id number] encounter in discussion of advanced directive 16 minutes. Clinical Impression(s) from Imaging Studies Breast Ultrasound 10/04/21 18:17 IMPRESSION: The palpable amount to correspond to a 5.8 cm x 2.4 cm x 0.9 cm complex solid mass with cystic areas extending into the tibial portion of the pancreas. Tissue sampling recommended. There is also evidence of a 1.2 cm x 1.2 cm x 0.9 cm hypoechoic irregular nodule at the 11 o''clock position breast at 9 cm from nipple. Biopsy recommended. ASSESSMENT CATEGORY: BIRADS Category 4: Suspicious - Biopsy Should Be Considered. A letter regarding these results will be sent to the patient by the facility within 30 days. Electronically Signed: Henrry Barroso MD at 8:20 EDT , Charges/Coding Visit Charges Inpatient E&M: 21980 Subs Hosp L2
[2021-10-05] MEDS: Potassium Chloride 10mEq/100mL 10 MEQ/100 ML IV.SOLN. 100 MEQ IV BOLUS ×4 (07:45→11:47)
--- NOTE | 2021-10-05 08:13 | PN.SURG_ITS ---
Subjective Subjective Patient seen and examined during AM rounds. She is found already taken down to the preoperative holding area. She reports ongoing discomfort from her right armpit, but otherwise denies any new developments. Objective Data Objective Data Vital Signs: Vital Signs Temp Pulse Resp BP Pulse Ox 98.8 F 911 H 18 124/65 H 98 10/05/21 07:42 10/05/21 07:42 10/05/21 07:42 10/05/21 07:42 10/05/21 07:42 Oxygen Delivery Method Room Air Weight: 161 lb 6.054 oz Body Mass Index (BMI) 29.5 Intake & Output: Intake and Output for Last 24 Hours 10/03/21 10/04/21 10/05/21 23:59 23:59 23:59 Intake Total 2642.33 / 2642.33 643.67 / 643.67 Balance 2642.33 / 2642.33 643.67 / 643.67 Lab / Micro Data Result Diagrams: 10/05/21 04:56 10/05/21 04:56 Labs: Laboratory Results - last 24 hr 10/04/21 10:50: WBC 8.1, RBC 3.59 L, Hgb 10.3 L, Hct 31.2 L, MCV 86.9, MCH 28.7, MCHC 33.0, RDW Std Deviation 41.2, RDW Coeff of Elsi 12.8, Plt Count 170, MPV 9.9, Immature Gran % (Auto) 4.200 H, Neut % (Auto) 79.2 H, Lymph % (Auto) 6.9 L, [place] % (Auto) 6.8, Eos % (Auto) 2.7, Baso % (Auto) 0.2, Absolute Neuts (auto) 6.4, Absolute Lymphs (auto) 0.56 L, Nucleated RBC % 0, Differential Comment SCANNED 10/04/21 10:50: PT 14.8, INR 1.2, APTT 29.6 10/04/21 10:50: Sodium 136, Potassium 3.2 L, Chloride 100, Carbon Dioxide 25.0, Anion Gap 11, BUN 15, Creatinine 1.24 H, Estim Creat Clear Calc 39.59, Est GFR (MDRD) Af Amer 57 L, Est GFR (MDRD) Non-Af 47 L, BUN/Creatinine Ratio 12.1, Glucose 347 H, Calcium 9.0, Total Bilirubin 0.30, AST 9 L, ALT 13, Alkaline Phosphatase 143 H, Total Protein 6.1 L, Albumin 2.2 L, Globulin 3.9, Albumin/ Globulin Ratio 0.6 L 10/04/21 10:50: Lactic Acid 2.1 H* 10/04/21 10:50: Phosphorus 3.1, Magnesium 2.1 10/04/21 13:43: S.aureus Protein A PCR POSITIVE H, MRSA (PCR) POSITIVE H 10/04/21 14:27: POC Glucose 220 H 10/04/21 15:07: Lactic Acid 1.9 10/04/21 17:17: POC Glucose 151 H 10/04/21 21:41: POC Glucose 238 H 10/05/21 04:56: WBC 6.5, RBC 3.37 L, Hgb 9.6 L, Hct 29.5 L, MCV 87.5, MCH 28.5, MCHC 32.5, RDW Std Deviation 42.3, RDW Coeff of Elsi 13.1, Plt Count 191, MPV 9.6, Neut % (Auto) Not Reportable, Absolute Neuts (auto) 4.9, Absolute Lymphs (auto) 1.04, Total Counted 100, Neutrophils % (Manual) 74 H, Band Neutrophils % 2, Lymphocytes % (Manual) 16 L, Monocytes % (Manual) 1, Eosinophils % (Manual) 5, Myelocytes % 2 H, Diff Path Review May foll, Platelet Estimate ADEQUATE, RBC Morphology NORM C+C 10/05/21 04:56: Sodium 136, Potassium 3.1 L, Chloride 104, Carbon Dioxide 25.0, Anion Gap 7, BUN 10, Creatinine 0.79, Estim Creat Clear Calc 62.14, Est GFR (MDRD) Af Amer 96, Est GFR (MDRD) Non-Af 80, BUN/Creatinine Ratio 12.7, Glucose 155 H, Calcium 8.5 10/05/21 04:56: Hemoglobin A1c 8.2 H Physical Exam Const Constitutional Narrative: Mild distress/discomfort from right axillary/breast infection Chest Chest Narrative: Increased drainage from right axillary abscess with persistent erythema right lateral breast and tenderness in the upper outer quadrant of right breast Assessment & Plan Assessment/Plan (1) Abscess of right axilla: (2) Mastitis, right, acute: PLAN: This is a 55-year-old female, with a history of type 2 diabetes, who presents with apparent MRSA infection of her right axilla and possibly right breast. Patient has a draining area of the axilla, but I feel a much larger subcutaneous area in the upper outer quadrant of the right breast. Plan to proceed to the OR for exploration of right axilla/breast and promote dr haley of abscess with incision and drainage procedure. Charges/Coding Visit Charges Inpatient E&M: 09807 Subs Hosp L2
[2021-10-05 08:16] LABS: Bedside Glucose 177 mg/dL (74-106)
[2021-10-05] MEDS: Bupivacaine Mpf 0.5% 30 ML VIAL (09:22)
--- NOTE | 2021-10-05 09:40 | OP.PCM_ITS ---
Report of Operation Date of Procedure: 10/05/21 Pre-Operative Diagnosis: Right breast/axillary abscess Post-Operative Diagnosis: Same Surgery/Procedure Performed:: Incision and drainage of right breast/axillary abscess Description of Surgical Findings:: ? Spontaneously draining right axillary abscess with some extension into the right upper arm (volar aspect) and tracking down into the upper outer quadrant of the right breast with approximately 6 cm undermining to the superior portion of the breast and 4 cm undermining posteriorly Surgeon: Mahesh Robert account executive: Amanda Fuller Type of Anesthesia: General/Supplemental Anesthesiologist: Madan Cochran Drains: NA Estimated Blood Loss (mL): 50 Description of Procedure: After appropriate identification in the preoperative holding area the patient was brought to the operating room where she was positioned supine on the operating room table. There she underwent induction of general tracheal anesthetic. She was previously given her continuous antibiotic therapy on the floor. She was then positioned with her right upper extremity elevated to expose the axilla as well as the right breast and was prepped and draped usual sterile fashion using a chlorhexidine prep (patient had a documented allergy to Betadine). After a formal timeout, the procedure was begun with bluntly probing the spontaneously draining site in the patient's right axilla. There appeared to be tracking both laterally into the right upper extremity as well as towards the right breast. I enlarged this drainage site after instilling some local anesthetic and probed this cavity digitally. I confirmed the above tracking as well as inferior tracking towards the right breast laterally. A counterincision was made in the right lateral breast approximately 3 cm in length (again after instilling some local anesthetic). Hemostasis was obtained at the skin edge with electrocautery. Culture swabs were obtained and passed off the field. Then each site was copiously irrigated with sterile saline. External pressure was applied to facilitate further hemostasis. Then a full container of half-inch iodoform packing strip was placed into each incision for a total of 2 containers. Again, manual pressure was applied. Fluff gauzes and an abdominal pad was applied as a dressing and taped into place. Patient was then awoken from anesthetic and taken to PACU for ongoing recovery. Complications none Admit VTE Documentation VTE Mechan Device Prophylaxis: SCD's Procedures Integumentary 10xxx: [id number] Drainage of skin abscess
[2021-10-05 10:31] LABS: Bedside Glucose 161 mg/dL (74-106)
[2021-10-05] MEDS: Benztropine 2 MG Tablet 1 MG PO ×2 (11:44→22:09)
[2021-10-05] MEDS: Citalopram 40 MG TABLET PO (11:44)
[2021-10-05] MEDS: Insulin Lispro 100 UNIT/ML INSULN.PEN SC ×2 (11:44→17:02)
[2021-10-05] MEDS: Enoxaparin 40 MG/0.4 ML Syringe SC (11:45)
[2021-10-05 11:50] LABS: Bedside Glucose 159 mg/dL (74-106)
[2021-10-05] MEDS: Insulin Glargine-YFGN 100 UNIT/ML Pen 14 UNIT SC (11:51)
[2021-10-05 12:05] LABS: Bedside Glucose 154 mg/dL (74-106)
[2021-10-05] MEDS: Albuterol 2.5 MG/3 ML VIAL.NEB. INHALATION ×2 (13:35→19:51)
--- NOTE | 2021-10-05 14:14 | PCM.RX.CS ---
Consult Pharmacy has been consulted to manage selected antiobiotic: Vancomycin Type of Consult: Follow-up Suspected Infection: Other Labs: Sodium 136 mmol/L (136-145) 10/05/21 04:56 Potassium 3.1 mmol/L (3.5-5.1) L 10/05/21 04:56 Chloride 104 mmol/L (98-107) 10/05/21 04:56 Carbon Dioxide 25.0 mmol/L (21.0-32.0) 10/05/21 04:56 Anion Gap 7 (5-15) 10/05/21 04:56 BUN 10 mg/dL (7-18) 10/05/21 04:56 Creatinine 0.79 mg/dL (0.55-1.02) 10/05/21 04:56 Est GFR (MDRD) Af Amer 96 mL/min (>60) 10/05/21 04:56 Est GFR (MDRD) Non-Af 80 mL/min (>60) 10/05/21 04:56 BUN/Creatinine Ratio 12.7 RATIO (10-20) 10/05/21 04:56 Glucose 155 mg/dL (74-106) H 10/05/21 04:56 Microbiology: Microbiology 10/04/21 10:54 Wound - Axilla, Right Gram Stain - Final 10/04/21 10:54 Wound - Axilla, Right Wound Culture - Preliminary Staphylococcus aureus Goal Trough: 15-20 mcg/mL Pharmacy Plan for Drug Dosin10/05/21 SrC 0.79. Estimated CrCl 73.6 ml/min. Vancomycin changed to 1000mg IV q 12H with a level ordered on 10/06/21 at 14:30 Pharmacy Service will continue to monitor and adjust dosing as required.
[2021-10-05] MEDS: hydrOXYzine PAM 25 MG Capsule PO (14:17)
[2021-10-05] MEDS: oxyCODONE 5 MG Tablet PO ×2 (14:17→21:47)
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
[2021-10-05] MEDS: Vancomycin IV 1,000 MG/200 ML BAG 200 MG IV (15:32)
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
[2021-10-05] MEDS: 0.9% Saline Lock 10 ML Syringe IV (17:11)
[2021-10-05 17:21] LABS: Bedside Glucose 295 mg/dL (74-106)
[2021-10-05] MEDS: Budesonide Respules 0.5 MG/2 ML AMPUL.NEB. INHALATION (19:51)
[2021-10-05] MEDS: Acetaminophen 325 MG Tablet 650 MG PO (21:47)
[2021-10-05] MEDS: traZODone 50 MG Tablet 150 MG PO (22:07)
[2021-10-05] MEDS: Doxazosin 1 MG Tablet PO (22:08)
[2021-10-06 00:15] LABS: Bedside Glucose 147 mg/dL (74-106)
[2021-10-06] MEDS: Vancomycin IV 1,000 MG/200 ML BAG 200 MG IV ×3 (03:28→14:53)
[2021-10-06 03:42] VITALS: BP 111/58; PULSE 87; RESP 18; TEMP 36.6; O2SAT 95
[2021-10-06] MEDS: oxyCODONE 5 MG Tablet PO ×5 (03:48→22:32)
[2021-10-06] MEDS: HYDROmorphone 0.5 MG/0.5 ML SYRINGE IV ×3 (06:11→20:07)
[2021-10-06] MEDS: Insulin Lispro 100 UNIT/ML INSULN.PEN SC ×3 (06:26→22:20)
--- NOTE | 2021-10-06 07:09 | PCM.PN.SRG ---
Subjective Subjective Patient complaining of pain/soreness in the right axilla. Objective Data Objective Data Vital Signs: Vital Signs Temp Pulse Resp BP Pulse Ox 97.8 F 87 18 111/58 L 95 10/06/21 03:42 10/06/21 03:42 10/06/21 03:42 10/06/21 03:42 10/06/21 03:42 Oxygen Flow Rate (L/min) 2 Oxygen Delivery Method Room Air Weight: 168 lb 13.985 oz Body Mass Index (BMI) 29.5 Intake & Output: Intake and Output for Last 24 Hours 10/04/21 10/05/21 10/06/21 23:59 23:59 23:59 Intake Total 2642.33 / 2642.33 5411.00 / 5411.00 535.08 / 535.08 Output Total 950 / 950 Balance 2642.33 / 2642.33 4461.00 / 4461.00 535.08 / 535.08 Lab / Micro Data Result Diagrams: 10/06/21 07:00 10/06/21 07:00 Labs: Laboratory Results - last 24 hr 10/05/21 04:56: Hemoglobin A1c 8.2 H 10/05/21 06:53: POC Glucose 159 H 10/05/21 08:00: POC Glucose 177 H 10/05/21 10:28: POC Glucose 161 H 10/05/21 11:32: POC Glucose 154 H 10/05/21 17:00: POC Glucose 295 H 10/05/21 21:54: POC Glucose 147 H Micro: Microbiology 10/05/21 10:00 Abs - Breast Gram Stain - Final 10/04/21 10:54 Wound - Axilla, Right Gram Stain - Final 10/04/21 10:54 Wound - Axilla, Right Wound Culture - Preliminary Staphylococcus aureus Radiography Diagnostic Testing: Radiology Impression Breast Ultrasound 10/04/21 18:17 IMPRESSION: The palpable amount to correspond to a 5.8 cm x 2.4 cm x 0.9 cm complex solid mass with cystic areas extending into the tibial portion of the pancreas. Tissue sampling recommended. There is also evidence of a 1.2 cm x 1.2 cm x 0.9 cm hypoechoic irregular nodule at the 11 o''clock position breast at 9 cm from nipple. Biopsy recommended. ASSESSMENT CATEGORY: BIRADS Category 4: Suspicious - Biopsy Should Be Considered. A letter regarding these results will be sent to the patient by the facility within 30 days. Electronically Signed: Henrry Barroso MD at 8:20 EDT , Physical Exam Skin Skin Narrative: Faint erythema to the lateral right breast and axilla, 2 incisions packed with iodoform. These were removed at bedside and new dressing was placed just to keep the skin open. Assessment & Plan Assessment/Plan (1) Abscess of right axilla: PLAN: Patient's cultures growing gram-positive cocci, patient on Vanco and Unasyn currently. We will continue IV antibiotics today. Did remove the surgical packing at bedside and replaced. We will plan to do this twice daily with half-inch iodoform. Patient is tolerating diet otherwise. Ritu Caruso M.D. Pager: [phone] [facility] [address] [place] [address], [facility], [address] [place] [address] Office: [phone]
[2021-10-06 07:15] LABS: Bedside Glucose 164 mg/dL (74-106)
[2021-10-06 07:20] VITALS: PULSE 92; RESP 18
[2021-10-06 07:38] LABS: Hemoglobin 9.4 g/dL (12.0-15.0); Mean Corp Hgb Conc 32.4 g/dL (32-36); Mean Corpuscular Volume 89.5 fL (81-99); Mean Platelet Vol. 9.5 fl (6.2-12.0); POSITIVE COUNT YES; POSITIVE MORPHOLOGY YES; Platelet Count 192 K/mm3 (150-450); RBC Distribution Width CV 13.4 % (11.6-14.6); RBC Distribution Width SD 44.2 fl (35.1-43.9); Red Blood Count 3.24 M/mm3 (4.2-5.4); White Blood Count 4.9 K/mm3 (4.4-11.0)
[2021-10-06] MEDS: Budesonide Respules 0.5 MG/2 ML AMPUL.NEB. INHALATION ×2 (07:40→19:26)
[2021-10-06] MEDS: Albuterol 2.5 MG/3 ML VIAL.NEB. INHALATION ×3 (07:40→19:26)
[2021-10-06 07:53] LABS: Differential Indicated MANUAL DIFF
[2021-10-06 08:02] LABS: Anion Gap 5 (5-15); BUN 8 mg/dL (7-18); Calcium,Total 8.4 mg/dL (8.5-10.1); Chloride 104 mmol/L (98-107); Creatinine, Serum 0.67 mg/dL (0.55-1.02); EST Glomerular Filtration Rate 97 mL/min (>60); Est Glom Filt Rate - Afr Amer 117 mL/min (>60); Estimated Creatinine Clearance 73.27 ml/min; Glucose 159 mg/dL (74-106); Potassium 3.6 mmol/L (3.5-5.1); Sodium Level 137 mmol/L (136-145)
[2021-10-06 08:08] VITALS: BP 106/64; PULSE 91; RESP 15; TEMP 36.7; O2SAT 93
--- NOTE | 2021-10-06 08:09 | PN.HOSP_ITS ---
Subjective Subjective Follow-up for right axillary abscess extending to right breast status post incision and drainage Objective Data Objective Data Vital Signs: Vital Signs Temp Pulse Resp BP Pulse Ox 98.1 F 91 15 106/64 93 10/06/21 08:08 10/06/21 08:08 10/06/21 08:08 10/06/21 08:08 10/06/21 08:08 Oxygen Flow Rate (L/min) 2 Oxygen Delivery Method Room Air Weight: 168 lb 13.985 oz Body Mass Index (BMI) 29.5 Intake & Output: Intake and Output for Last 24 Hours 10/04/21 10/05/21 10/06/21 23:59 23:59 23:59 Intake Total 2642.33 / 2642.33 5411.00 / 5411.00 647.08 / 647.08 Output Total 950 / 950 Balance 2642.33 / 2642.33 4461.00 / 4461.00 647.08 / 647.08 Lab / Micro Data Result Diagrams: 10/06/21 07:00 10/06/21 07:00 Labs: Laboratory Results - last 24 hr 10/05/21 06:53: POC Glucose 159 H 10/05/21 08:00: POC Glucose 177 H 10/05/21 10:28: POC Glucose 161 H 10/05/21 11:32: POC Glucose 154 H 10/05/21 17:00: POC Glucose 295 H 10/05/21 21:54: POC Glucose 147 H 10/06/21 06:24: POC Glucose 164 H 10/06/21 07:00: WBC 4.9, RBC 3.24 L, Hgb 9.4 L, Hct 29.0 L, MCV 89.5, MCH 29.0, MCHC 32.4, RDW Std Deviation 44.2 H, RDW Coeff of Elsi 13.4, Plt Count 192, MPV 9.5, Neut % (Auto) Not Reportable 10/06/21 07:00: Sodium 137, Potassium 3.6, Chloride 104, Carbon Dioxide 28.0, Anion Gap 5, BUN 8, Creatinine 0.67, Estim Creat Clear Calc 73.27, Est GFR (MDRD) Af Amer 117, Est GFR (MDRD) Non-Af 97, BUN/Creatinine Ratio 12.0, Glucose 159 H, Calcium 8.4 L Micro: Microbiology 10/04/21 10:54 Wound - Axilla, Right Gram Stain - Final 10/04/21 10:54 Wound - Axilla, Right Wound Culture - Final Meth. resistant Staph. aureus 10/05/21 10:00 Abs - Breast Gram Stain - Final Radiography Diagnostic Testing: Radiology Impression Breast Ultrasound 10/04/21 18:17 IMPRESSION: The palpable amount to correspond to a 5.8 cm x 2.4 cm x 0.9 cm complex solid mass with cystic areas extending into the tibial portion of the pancreas. Tissue sampling recommended. There is also evidence of a 1.2 cm x 1.2 cm x 0.9 cm hypoechoic irregular nodule at the 11 o''clock position breast at 9 cm from nipple. Biopsy recommended. ASSESSMENT CATEGORY: BIRADS Category 4: Suspicious - Biopsy Should Be Considered. A letter regarding these results will be sent to the patient by the facility within 30 days. Electronically Signed: Henrry Barroso MD at 8:20 EDT , Physical Exam Narrative General: Alert, Oriented x3, Cooperative. No fever. HEENT: Atraumatic, PERRLA, EOMI, Normocephalic Oral: No Gingival or Mucosal Lesions/ Ulcerations Neck: Supple, No JVD, Negative Carotid Bruits Lungs: Air entry diminished in bilateral lung bases. No crepitation/rhonchi Cardiovascular: Regular rate, Regular Rhythm, Normal S1, Normal S2, No murmurs Abdomen: Bowel Sounds Present, Soft, Non Tender, Non-Distended : No renal angle tenderness. No suprapubic tenderness. Extremities: No edema, Capillary Refill Less than 3 Seconds Skin: Status post incision and drainage of right axillary area. Counterincision on right upper quadrant of breast. Dressing was changed in the morning. Packing was changed. Musculoskeletal: No Tenderness to Palpation of Joints or Extremities Neurological: Cranial nerves II-XII grossly intact, DTR 2+/4 and Symmetrical, Neuro grossly intact Psych/Mental Status: Normal Affect, Appropriate. Assessment & Plan Assessment/Plan (1) Abscess of right axilla: (2) Mastitis, right, acute: PLAN: 1. Right axillary abscess with cellulitis spreading to lateral half of right breast, mastitis and posterior lateral aspect of right arm: I feel this is started from right arm folliculitis. Patient is started on Unasyn for broad coverage. Clindamycin for antitoxin effect and MRSA coverage. I feel fluctuation of her right axillary area, lateral aspect of breast is very tender and probably needs incision and drainage. General surgery Dr. Robert consulted. Blood cultures x2, wound culture, 10/05: MRSA nasal screen and wound positive is positive. Patient is started on vancomycin on 10/04. Clindamycin discontinued. Continue Unasyn. Cultures are pending. Right breast ultrasound shows 5.8 x 2.4 x 0.9 cm complex solid mass with cystic areas extending to tail portion of breast. Also 1.2 x 1.2 x 0.9 cm hypoechoic irregular nodule at 11 o'clock position at 9 cm from the nipple. Biopsy recommended. Operative report reviewed. Patient had incision and drainage of right breast and axillary abscess. It was tracking down and undermining 6 cm superior portio n of breast and 4 cm posteriorly. 10/06: Dressing was changed. Continue IV antibiotic. Patient lives with her in the car, homeless. Need to continue antibiotic and dressing and keep the patient until Friday. Mild hypokalemia: Serum magnesium and phosphorus level normal. K3.1. IV KCl ordered. 10/06 repeat potassium 3.6 every. Continue replacement. 2. Chronic intermittent asthma: Patient not in exacerbation. Patient is on albuterol inhaler as needed and Advair continued. 3. History of PTSD, anxiety and depression Bipolar 1 disorder: Patient is on multiple antipsychotic and antidepressant medications. On amitriptyline 20 mg 3 times daily, benztropine 1 mg twice daily, citalopram 60 mg daily, haloperidol 5 mg nightly, hydroxyzine 15 every 8 hourly as needed and trazodone 50 mg nightly. Twelve-lead EKG done. Normal sinus rhythm QTC 465 ms. Patient advised about side effect adverse effect of multiple antipsychotic medications, interactions and probability of increasing QT interval and torsades. Hold amitriptyline and haloperidol. Citalopram decreased to 40 mg daily. Hydroxyzine 25 milligrams 3 times daily as needed and trazodone continued. 3. diabetes mellitus type 2: Glucose is elevated 347. A1c 8.2%. Accu-Chek insulin coverage Humalog sliding scale. Lantus 10 units subcutaneous daily. Hold metformin. 10/05: Glucose is between 160-200. Increase the Lantus insulin. 4. History of diverticulitis and intestinal obstruction in the past. No acute issues. Patient moving her bowel. No burning micturition. VTE prophylaxis: Moderate risk. Lovenox 40 subcu daily. Patient does not have any at home but lives in the car with her . Discussed with the social work case manager, daughter later. Patient not agreeable for going to [facility] Living will/advanced directive/end of life care: Patient does not have living will or advanced directive or designated power of free lance model for healthcare and her is next of kin. After discussion of benefits/risks procedures involved with full code, DNR CC arrest and DNR CC, the patient and her opted for full code. Patient does want artificial life support including intubation, tube feed, vent ilator and/chest compression, central venous catheter, vasopressor and DC shock if needed Total time spent in [id number] encounter in discussion of advanced directive 16 minutes. Clinical Impression(s) from Imaging Studies Breast Ultrasound 10/04/21 18:17 IMPRESSION: The palpable amount to correspond to a 5.8 cm x 2.4 cm x 0.9 cm complex solid mass with cystic areas extending into the tibial portion of the pancreas. Tissue sampling recommended. There is also evidence of a 1.2 cm x 1.2 cm x 0.9 cm hypoechoic irregular nodule at the 11 o''clock position breast at 9 cm from nipple. Biopsy recommended. ASSESSMENT CATEGORY: BIRADS Category 4: Suspicious - Biopsy Should Be Considered. A letter regarding these results will be sent to the patient by the facility within 30 days. Electronically Signed: Henrry Barroso MD at 8:20 EDT , Charges/Coding Visit Charges Inpatient E&M: 55084 Subs Hosp L3
[2021-10-06] MEDS: Benztropine 2 MG Tablet 1 MG PO ×2 (08:13→22:30)
[2021-10-06] MEDS: Enoxaparin 40 MG/0.4 ML Syringe SC (08:13)
[2021-10-06] MEDS: Citalopram 40 MG TABLET PO (08:13)
[2021-10-06] MEDS: hydrOXYzine PAM 25 MG Capsule PO ×2 (08:21→17:19)
[2021-10-06] MEDS: Acetaminophen 325 MG Tablet 650 MG PO ×2 (08:21→17:19)
[2021-10-06 09:00] LABS: Eosinophil 3 % (0-5); Lymphocyte 24 % (19-41); Metamyelocyte 1 % (0-1); Monocyte 10 % (0-10); Myelocyte 2 % (0-0); Neutrophil-Band 4 % (0-5); Neutrophil-Segmented 56 % (47-70); Red Cell Morphology NORM C+C NORMAL (NORM C&C); Total Cells Counted 100 (MANUAL DIFF)
[2021-10-06 09:01] LABS: Absolute Neutrophil Count 2.9 X10^3/uL (2.0-7.7); Platelet Estimate ADEQUATE (ADEQ)
[2021-10-06 09:02] LABS: Absolute Lymphocyte Count 1.18 X10^3/uL (0.83-4.51)
[2021-10-06 12:20] LABS: Bedside Glucose 251 mg/dL (74-106)
[2021-10-06] MEDS: Potassium Chloride Oral Tablet 20 MEQ 40 MEQ PO (13:15)
[2021-10-06 13:30] VITALS: PULSE 88; RESP 18
[2021-10-06] MEDS: 0.9% Saline Lock 10 ML Syringe IV ×2 (15:03→20:09)
--- NOTE | 2021-10-06 16:03 | PCM.RX.CS ---
Consult Pharmacy has been consulted to manage selected antiobiotic: Vancomycin Type of Consult: Follow-up Prior Doses of Antibiotics Received/Current Regimen: current dose is 1000mg q12h Labs: Sodium 137 mmol/L (136-145) 10/06/21 07:00 Potassium 3.6 mmol/L (3.5-5.1) 10/06/21 07:00 Chloride 104 mmol/L (98-107) 10/06/21 07:00 Carbon Dioxide 28.0 mmol/L (21.0-32.0) 10/06/21 07:00 Anion Gap 5 (5-15) 10/06/21 07:00 BUN 8 mg/dL (7-18) 10/06/21 07:00 Creatinine 0.67 mg/dL (0.55-1.02) 10/06/21 07:00 Est GFR (MDRD) Af Amer 117 mL/min (>60) 10/06/21 07:00 Est GFR (MDRD) Non-Af 97 mL/min (>60) 10/06/21 07:00 BUN/Creatinine Ratio 12.0 RATIO (10-20) 10/06/21 07:00 Glucose 159 mg/dL (74-106) H 10/06/21 07:00 Vancomycin Trough 14.0 ug/mL (5.0-15.0) 10/06/21 14:00 Microbiology: Microbiology 10/05/21 10:00 Abs - Breast Gram Stain - Final 10/05/21 10:00 Abs - Breast Wound Culture - Preliminary Staphylococcus aureus 10/04/21 10:55 Blood Culture (Wb) - Left Wrist Blood Culture - Preliminary No growth in 48 hours. 10/04/21 10:50 Blood Culture (Wb) - Anticubital Left Blood Culture - Preliminary No growth in 48 hours. 10/04/21 10:54 Wound - Axilla, Right Gram Stain - Final 10/04/21 10:54 Wound - Axilla, Right Wound Culture - Final Meth. resistant Staph. aureus Weight used for dosin.6 kg Estimated Creatinine Clearance: 73ml/min Goal Trough: 15-20 mcg/mL Pharmacy Plan for Drug Dosing: The vanc trough drawn at 14:00 today (approx 10.5 hrs after the previous dose) was 14.0. This is close to the goal of 15-20 but if drawn closer to the 12 hr ruben, it would have been lower than 14. Therefore, will slightly increase the next dose to 1250mg q12h and repeat a trough before the 4th new dose. Pharmacy Service will continue to monitor and adjust dosing as required. Follow-Up Labs: Trough Vancomycin Labs to be done on [date and time ordered]: 10/08 14:30
[2021-10-06 16:11] LABS: Bedside Glucose 119 mg/dL (74-106)
[2021-10-06 17:12] VITALS: BP 119/64; PULSE 93; RESP 16; TEMP 36.6; O2SAT 99
[2021-10-06 19:28] VITALS: PULSE 84; RESP 16; O2SAT 96
[2021-10-06] MEDS: Doxazosin 1 MG Tablet PO (22:31)
[2021-10-06] MEDS: traZODone 50 MG Tablet 150 MG PO (22:31)
[2021-10-06 22:56] LABS: Bedside Glucose 226 mg/dL (74-106)
[2021-10-07] MEDS: Acetaminophen 325 MG Tablet 650 MG PO ×3 (02:58→18:54)
[2021-10-07] MEDS: HYDROmorphone 0.5 MG/0.5 ML SYRINGE IV ×3 (02:58→15:27)
[2021-10-07] MEDS: hydrOXYzine PAM 25 MG Capsule PO ×3 (02:59→23:23)
[2021-10-07] MEDS: Juven (unflavored) Packet 1 PACKET PO ×2 (06:37→17:05)
[2021-10-07] MEDS: Insulin Lispro 100 UNIT/ML INSULN.PEN SC ×3 (06:38→22:09)
[2021-10-07] MEDS: Enoxaparin 40 MG/0.4 ML Syringe SC (06:39)
[2021-10-07] MEDS: Citalopram 40 MG TABLET PO (06:40)
[2021-10-07] MEDS: Benztropine 2 MG Tablet 1 MG PO ×2 (06:40→22:15)
--- NOTE | 2021-10-07 06:40 | PCM.PN.SRG ---
Subjective Subjective Patient states her soreness is improved. Packing is being changed twice daily with half-inch packing tape. Objective Data Objective Data Vital Signs: Vital Signs Temp Pulse Resp BP Pulse Ox 97.8 F 84 16 119/64 96 10/06/21 17:12 10/06/21 19:28 10/06/21 19:28 10/06/21 17:12 10/06/21 19:28 Oxygen Flow Rate (L/min) 2 Oxygen Delivery Method Room Air Weight: 179 lb 14.355 oz Body Mass Index (BMI) 29.5 Intake & Output: Intake and Output for Last 24 Hours 10/05/21 10/06/21 10/07/21 23:59 23:59 23:59 Intake Total 5411.00 / 5411.00 1332.58 / 1332.58 387 / 387 Output Total 950 / 950 Balance 4461.00 / 4461.00 1332.58 / 1332.58 387 / 387 Lab / Micro Data Result Diagrams: 10/06/21 07:00 10/06/21 07:00 Labs: Laboratory Results - last 24 hr 10/06/21 06:24: POC Glucose 164 H 10/06/21 07:00: WBC 4.9, RBC 3.24 L, Hgb 9.4 L, Hct 29.0 L, MCV 89.5, MCH 29.0, MCHC 32.4, RDW Std Deviation 44.2 H, RDW Coeff of Elsi 13.4, Plt Count 192, MPV 9.5, Neut % (Auto) Not Reportable, Absolute Neuts (auto) 2.9, Absolute Lymphs (auto) 1.18, Total Counted 100, Neutrophils % (Manual) 56, Band Neutrophils % 4, Lymphocytes % (Manual) 24, Monocytes % (Manual) 10, Eosinophils % (Manual) 3, Metamyelocytes % 1, Myelocytes % 2 H, Diff Path Review May , Platelet Estimate ADEQUATE, RBC Morphology NORM C+C 10/06/21 07:00: Sodium 137, Potassium 3.6, Chloride 104, Carbon Dioxide 28.0, Anion Gap 5, BUN 8, Creatinine 0.67, Estim Creat Clear Calc 73.27, Est GFR (MDRD) Af Amer 117, Est GFR (MDRD) Non-Af 97, BUN/Creatinine Ratio 12.0, Glucose 159 H, Calcium 8.4 L 10/06/21 11:25: POC Glucose 251 H 10/06/21 14:00: Vancomycin Trough 14.0 10/06/21 16:05: POC Glucose 119 H 10/06/21 22:19: POC Glucose 226 H Micro: Microbiology 10/05/21 10:00 Abs - Breast Gram Stain - Final 10/05/21 10:00 Abs - Breast Wound Culture - Final Meth. resistant Staph. aureus 10/04/21 10:55 Blood Culture (Wb) - Left Wrist Blood Culture - Preliminary No growth in 48 hours. 10/04/21 10:50 Blood Culture (Wb) - Anticubital Left Blood Culture - Preliminary No growth in 48 hours. 10/04/21 10:54 Wound - Axilla, Right Gram Stain - Final 10/04/21 10:54 Wound - Axilla, Right Wound Culture - Final Meth. resistant Staph. aureus Physical Exam Skin Skin Narrative: Still has erythema to the lateral right breast and axilla, 2 incisions packed with half-inch packing. These were removed at bedside and new dressing was placed just to keep the skin open. Assessment & Plan Assessment/Plan (1) Abscess of right axilla: PLAN: Patient's cultures growing MRSA, anaerobic pending, patient on Vanco and Unasyn currently. We will continue IV antibiotics. Did remove the surgical packing at bedside and replaced. We will plan to do this 3 times daily with half-inch iodoform. Patient is tolerating diet otherwise. Ritu Caruso M.D. Pager: [phone] [facility] [address] [place] [address], [facility], [address] [place] [address] Office: [phone]
[2021-10-07] MEDS: Potassium Chloride Oral Tablet 20 MEQ 40 MEQ PO (06:41)
[2021-10-07 06:56] LABS: Bedside Glucose 168 mg/dL (74-106)
[2021-10-07 07:06] VITALS: PULSE 91; RESP 20; O2SAT 91
[2021-10-07] MEDS: Budesonide Respules 0.5 MG/2 ML AMPUL.NEB. INHALATION ×2 (07:06→18:59)
[2021-10-07] MEDS: Albuterol 2.5 MG/3 ML VIAL.NEB. INHALATION ×3 (07:06→18:59)
--- NOTE | 2021-10-07 07:38 | PCM.PN.HOSP ---
Subjective Subjective Follow-up for right axillary Patient had right axilla and right breast abscess drained. Packing changed in the morning. No fever Objective Data Objective Data Vital Signs: Vital Signs Temp Pulse Resp BP Pulse Ox 97.8 F 91 20 H 119/64 91 10/06/21 17:12 10/07/21 07:06 10/07/21 07:06 10/06/21 17:12 10/07/21 07:06 Oxygen Flow Rate (L/min) 2 Oxygen Delivery Method Room Air Weight: 179 lb 14.355 oz Body Mass Index (BMI) 29.5 Intake & Output: Intake and Output for Last 24 Hours 10/05/21 10/06/21 10/07/21 23:59 23:59 23:59 Intake Total 5411.00 / 5411.00 1332.58 / 1332.58 499 / 499 Output Total 950 / 950 Balance 4461.00 / 4461.00 1332.58 / 1332.58 499 / 499 Lab / Micro Data Result Diagrams: 10/07/21 08:50 10/07/21 08:50 Labs: Laboratory Results - last 24 hr 10/06/21 07:00: WBC 4.9, RBC 3.24 L, Hgb 9.4 L, Hct 29.0 L, MCV 89.5, MCH 29.0, MCHC 32.4, RDW Std Deviation 44.2 H, RDW Coeff of Elsi 13.4, Plt Count 192, MPV 9.5, Neut % (Auto) Not Reportable, Absolute Neuts (auto) 2.9, Absolute Lymphs (auto) 1.18, Total Counted 100, Neutrophils % (Manual) 56, Band Neutrophils % 4, Lymphocytes % (Manual) 24, Monocytes % (Manual) 10, Eosinophils % (Manual) 3, Metamyelocytes % 1, Myelocytes % 2 H, Diff Path Review September, Platelet Estimate ADEQUATE, RBC Morphology NORM C+C 10/06/21 07:00: Sodium 137, Potassium 3.6, Chloride 104, Carbon Dioxide 28.0, Anion Gap 5, BUN 8, Creatinine 0.67, Estim Creat Clear Calc 73.27, Est GFR (MDRD) Af Amer 117, Est GFR (MDRD) Non-Af 97, BUN/Creatinine Ratio 12.0, Glucose 159 H, Calcium 8.4 L 10/06/21 11:25: POC Glucose 251 H 10/06/21 14:00: Vancomycin Trough 14.0 10/06/21 16:05: POC Glucose 119 H 10/06/21 22:19: POC Glucose 226 H 10/07/21 06:24: POC Glucose 168 H Micro: Microbiology 10/05/21 10:00 Abs - Breast Gram Stain - Final 10/05/21 10:00 Abs - Breast Wound Culture - Final Meth. resistant Staph. aureus 10/04/21 10:55 Blood Culture (Wb) - Left Wrist Blood Culture - Preliminary No growth in 48 hours. 10/04/21 10:50 Blood Culture (Wb) - Anticubital Left Blood Culture - Preliminary No growth in 48 hours. 10/04/21 10:54 Wound - Axilla, Right Gram Stain - Final 10/04/21 10:54 Wound - Axilla, Right Wound Culture - Final Meth. resistant Staph. aureus Physical Exam Narrative General: Alert, Oriented x3, Cooperative. No fever. HEENT: Atraumatic, PERRLA, EOMI, Normocephalic Oral: No Gingival or Mucosal Lesions/ Ulcerations Neck: Supple, No JVD, Negative Carotid Bruits Lungs: Air entry diminished in bilateral lung bases. No crepitation/rhonchi Cardiovascular: Regular rate, Regular Rhythm, Normal S1, Normal S2, No murmurs Abdomen: Bowel Sounds Present, Soft, Non Tender, Non-Distended : No renal angle tenderness. No suprapubic tenderness. Extremities: No edema, Capillary Refill Less than 3 Seconds Skin: Status post incision and drainage of right axillary area. Counterincision on right upper quadrant of breast. Dressing was changed in the morning. Packing was changed. Musculoskeletal: No Tenderness to Palpation of Joints or Extremities Neurological: Cranial nerves II-XII grossly intact, DTR 2+/4 and Symmetrical, Neuro grossly intact Psych/Mental Status: Normal Affect, Appropriate. Assessment & Plan Assessment/Plan (1) Abscess of right axilla: (2) Mastitis, right, acute: PLAN: 1. Right axillary abscess with cellulitis spreading to lateral half of right breast, mastitis and posterior lateral aspect of right arm: I feel this is started from right arm folliculitis. Patient is started on Unasyn for broad coverage. Clindamycin for antitoxin effect and MRSA coverage. I feel fluctuation of her right axillary area, lateral aspect of breast is very tender and probably needs incision and drainage. General surgery Dr. Robert consulted. Blood cultures x2, wound culture, 10/05: MRSA nasal screen and wound positive is positive. Patient is started on vancomycin on 10/04. Clindamycin discontinued. Continue Unasyn. Cultures are pending. Right breast ultrasound shows 5.8 x 2.4 x 0.9 cm complex solid mass with cystic areas extending to tail portion of breast. Also 1.2 x 1.2 x 0.9 cm hypoechoic irregular nodule at 11 o'clock position at 9 cm from the nipple. Biopsy recommended. Operative report reviewed. Patient had incision and drainage of right breast and axillary abscess. It was tracking down and undermining 6 cm superior portion of breast and 4 cm posteriorly. 10/06: Dressing was changed. Continue IV antibiotic. Patient lives with her in the car, homeless. Need to continue antibiotic and dressing and keep the patient until Friday. 10/07: Packing was changed twice daily. Wound culture shows MRSA. Narrowed other antibiotic to vancomycin only. Will discontinue Unasyn. Patient had 3 days of Unasyn. Mild hypokalemia: Serum magnesium and phosphorus level normal. Repeat potassium 4.2. Hypokalemia resolved. 2. Chronic intermittent asthma: Patient not in exacerbation. Patient is on albuterol inhaler as needed and Advair continued. 3. History of PTSD, anxiety and depression Bipolar 1 disorder: Patient is on multiple antipsychotic and antidepressant medications. On amitriptyline 20 mg 3 times daily, benztropine 1 mg twice daily, citalopram 60 mg daily, haloperidol 5 mg nightly, hydroxyzine 15 every 8 hourly as needed and trazodone 50 mg nightly. Twelve-lead EKG done. Normal sinus rhythm QTC 465 ms. Patient advised about side effect adverse effect of multiple antipsychotic medications, interactions and probability of increasing QT interval and torsades. Hold amitriptyline and haloperidol. Citalopram decreased to 40 mg daily. Hydroxyzine 25 milligrams 3 times daily as needed and trazodone continued. 3. diabetes mellitus type 2: Glucose is elevated 347. A1c 8.2%. Accu-Chek insulin coverage Humalog sliding scale. Lantus 10 units subcutaneous daily. Hold metformin. 10/05: Glucose is between 160-200. Increase the Lantus insulin. 10/07: Glucose fluctuates between 119-226. Increase the Lantus insulin 4. History of diverticulitis and intestinal obstruction in the past. No acute issues. Patient moving her bowel. No burning micturition. VTE prophylaxis: Moderate risk. Lovenox 40 subcu daily. Patient does not have any at home but lives in the car with her . Discussed with the caseworker intake, daughter later. Patient not agreeable for going to [facility] Living will/advanced directive/end of life care: Patient does not have living will or advanced directive or designated power of commercial litigation attorney for healthcare and her is next of kin. After discussion of benefits/risks procedures involved with full code, DNR CC arrest and DNR CC, the patient and her opted for full code. Patient does want artificial life support including intubation, tube feed, ventilator and/chest compression, central venous catheter, vasopressor and DC shock if needed Total time spent in [id number] encounter in discussion of advanced directive 16 minutes. Clinical Impression(s) from Imaging Studies Breast Ultrasound 10/04/21 18:17 IMPRESSION: The palpable amount to correspond to a 5.8 cm x 2.4 cm x 0.9 cm complex solid mass with cystic areas extending into the tibial portion of the pancreas. Tissue sampling recommended. There is also evidence of a 1.2 cm x 1.2 cm x 0.9 cm hypoechoic irregular nodule at the 11 o''clock position breast at 9 cm from nipple. Biopsy recommended. ASSESSMENT CATEGORY: BIRADS Category 4: Suspicious - Biopsy Should Be Considered. A letter regarding these results will be sent to the patient by the facility within 30 days. Electronically Signed: Henrry Barroso MD at 8:20 EDT , Charges/Coding Visit Charges Inpatient E&M: 57079 Subs Hosp L2
[2021-10-07 08:03] VITALS: BP 108/59; PULSE 97; RESP 16; TEMP 36.7; O2SAT 94
[2021-10-07] MEDS: Insulin Glargine-YFGN 100 UNIT/ML Pen 18 UNIT SC (08:08)
[2021-10-07] MEDS: 0.9% Saline Lock 10 ML Syringe IV ×2 (08:11→15:27)
[2021-10-07 08:55] LABS: Hematocrit 30.3 % (37-47); Hemoglobin 9.6 g/dL (12.0-15.0); Mean Corp Hgb Conc 31.7 g/dL (32-36); Mean Corpuscular Hgb 28.6 pg (27.0-32.0); Mean Corpuscular Volume 90.2 fL (81-99); Mean Platelet Vol. 9.1 fl (6.2-12.0); POSITIVE COUNT YES; POSITIVE MORPHOLOGY YES; Platelet Count 207 K/mm3 (150-450); RBC Distribution Width CV 13.4 % (11.6-14.6); RBC Distribution Width SD 44.5 fl (35.1-43.9); Red Blood Count 3.36 M/mm3 (4.2-5.4); White Blood Count 5.4 K/mm3 (4.4-11.0)
[2021-10-07 08:57] LABS: Differential Indicated MANUAL DIFF
[2021-10-07] MEDS: oxyCODONE 5 MG Tablet PO ×3 (11:10→23:24)
[2021-10-07 11:40] LABS: Bedside Glucose 203 mg/dL (74-106)
[2021-10-07 11:41] LABS: Anion Gap 2 (5-15); BUN 12 mg/dL (7-18); BUN/Creat Ratio 14.5 RATIO (10-20); Calcium,Total 8.5 mg/dL (8.5-10.1); Chloride 107 mmol/L (98-107); Creatinine, Serum 0.83 mg/dL (0.55-1.02); EST Glomerular Filtration Rate 75 mL/min (>60); Est Glom Filt Rate - Afr Amer 91 mL/min (>60); Estimated Creatinine Clearance 59.15 ml/min; Glucose 162 mg/dL (74-106); Potassium 4.2 mmol/L (3.5-5.1); Sodium Level 141 mmol/L (136-145)
[2021-10-07 12:01] LABS: Eosinophil 5 % (0-5); Lymphocyte 25 % (19-41); Metamyelocyte 3 % (0-1); Monocyte 5 % (0-10); Myelocyte 13 % (0-0); Neutrophil-Band 7 % (0-5); Neutrophil-Segmented 45 % (47-70); Platelet Estimate ADEQUATE (ADEQ)
[2021-10-07 12:02] LABS: Absolute Lymphocyte Count 1.35 X10^3/uL (0.83-4.51); Absolute Neutrophil Count 2.8 X10^3/uL (2.0-7.7); Red Cell Morphology NORM C+C NORMAL (NORM C&C)
[2021-10-07 13:05] VITALS: PULSE 86; RESP 18
[2021-10-07 15:32] VITALS: BP 122/48; PULSE 88; RESP 16; TEMP 37.1; O2SAT 98
[2021-10-07 16:20] LABS: Bedside Glucose 114 mg/dL (74-106)
[2021-10-07 19:00] VITALS: PULSE 95; RESP 22
[2021-10-07 20:30] VITALS: BP 125/57; PULSE 90; RESP 16; TEMP 37.1; O2SAT 99
[2021-10-07] MEDS: traZODone 50 MG Tablet 150 MG PO (22:15)
[2021-10-07] MEDS: Doxazosin 1 MG Tablet PO (22:15)
[2021-10-07 23:01] LABS: Bedside Glucose 264 mg/dL (74-106)
[2021-10-08] VITALS (7 sets, daily range): BP systolic 115–134; BP diastolic 43–71; PULSE 85–95; RESP 12–88; TEMP 36.6–36.8; O2SAT 92–100
[2021-10-08] MEDS: Acetaminophen 325 MG Tablet 650 MG PO ×3 (02:39→18:08)
[2021-10-08] MEDS: HYDROmorphone 0.5 MG/0.5 ML SYRINGE IV ×3 (02:39→21:54)
[2021-10-08] MEDS: proCHLORPERazine 10 MG/2 ML Vial 5 MG IV ×2 (02:40→14:15)
[2021-10-08] MEDS: Insulin Lispro 100 UNIT/ML INSULN.PEN SC ×3 (06:29→21:53)
[2021-10-08] MEDS: hydrOXYzine PAM 25 MG Capsule PO ×2 (06:30→17:04)
[2021-10-08] MEDS: oxyCODONE 5 MG Tablet PO ×4 (06:31→23:22)
[2021-10-08 06:52] LABS: Anion Gap 5 (5-15); BUN 14 mg/dL (7-18); BUN/Creat Ratio 16.6 RATIO (10-20); Calcium,Total 9.1 mg/dL (8.5-10.1); Chloride 107 mmol/L (98-107); Creatinine, Serum 0.84 mg/dL (0.55-1.02); EST Glomerular Filtration Rate 74 mL/min (>60); Est Glom Filt Rate - Afr Amer 89 mL/min (>60); Estimated Creatinine Clearance 58.44 ml/min; Glucose 152 mg/dL (74-106); Potassium 4.2 mmol/L (3.5-5.1); Sodium Level 141 mmol/L (136-145)
[2021-10-08] MEDS: Budesonide Respules 0.5 MG/2 ML AMPUL.NEB. INHALATION ×2 (07:00→19:36)
[2021-10-08] MEDS: Albuterol 2.5 MG/3 ML VIAL.NEB. INHALATION ×3 (07:01→19:36)
[2021-10-08 07:21] LABS: Bedside Glucose 155 mg/dL (74-106)
--- NOTE | 2021-10-08 09:03 | PN.SURG_ITS ---
Subjective Subjective Patient seen and examined during AM rounds. She reports that she has had a intense headache overnight's more bothersome than even her right axilla/breast. Regarding the latter, she states that she still has significant tenderness from this area. She is very apprehensive about discharge until she is assured that she is clinically fit to do so. She confirms that she has been watching her carbohydrate intake over the weekend to better manage her blood sugars. Objective Data Objective Data Vital Signs: Vital Signs Temp Pulse Resp BP Pulse Ox 98.1 F 88 88 H 128/66 H 93 10/08/21 07:54 10/08/21 07:54 10/08/21 07:54 10/08/21 07:54 10/08/21 07:54 Oxygen Flow Rate (L/min) 2 Oxygen Delivery Method Room Air Weight: 170 lb 3.15 oz Body Mass Index (BMI) 29.5 Intake & Output: Intake and Output for Last 24 Hours 10/06/21 10/07/21 10/08/21 23:59 23:59 23:59 Intake Total 1332.58 / 1332.58 774 / 774 275 / 275 Balance 1332.58 / 1332.58 774 / 774 275 / 275 Lab / Micro Data Result Diagrams: 10/07/21 08:50 10/08/21 06:07 Labs: Laboratory Results - last 24 hr 10/07/21 08:50: Absolute Neuts (auto) 2.8, Absolute Lymphs (auto) 1.35, Neutrophils % (Manual) 45 L, Band Neutrophils % 7 H, Lymphocytes % (Manual) 25, Monocytes % (Manual) 5, Eosinophils % (Manual) 5, Metamyelocytes % 3 H, Myelocytes % 13 H, Diff Path Review May foll, Platelet Estimate ADEQUATE, RBC Morphology NORM C+C 10/07/21 08:50: Sodium 141, Potassium 4.2, Chloride 107, Carbon Dioxide 32.0, Anion Gap 2 L, BUN 12, Creatinine 0.83, Estim Creat Clear Calc 59.15, Est GFR (MDRD) Af Amer 91, Est GFR (MDRD) Non-Af 75, BUN/Creatinine Ratio 14.5, Glucose 162 H, Calcium 8.5, Magnesium 2.0 10/07/21 11:16: POC Glucose 203 H 10/07/21 16:13: POC Glucose 114 H 10/07/21 22:07: POC Glucose 264 H 10/08/21 06:07: Sodium 141, Potassium 4.2, Chloride 107, Carbon Dioxide 29.0, Anion Gap 5, BUN 14, Creatinine 0.84, Estim Creat Clear Calc 58.44, Est GFR (MDRD) Af Amer 89, Est GFR (MDRD) Non-Af 74, BUN/Creatinine Ratio 16.6, Glucose 152 H, Calcium 9.1 10/08/21 06:27: POC Glucose 155 H Micro: Microbiology 10/05/21 10:00 Abs - Breast Gram Stain - Final 10/05/21 10:00 Abs - Breast Wound Culture - Final Meth. resistant Staph. aureus 10/05/21 10:00 Abs - Breast Anaerobic Culture - Preliminary No growth in 48 hours. 10/04/21 10:55 Blood Culture (Wb) - Left Wrist Blood Culture - Preliminary No growth in 48 hours. 10/04/21 10:50 Blood Culture (Wb) - Anticubital Left Blood Culture - Pr eliminary No growth in 48 hours. 10/04/21 10:54 Wound - Axilla, Right Gram Stain - Final 10/04/21 10:54 Wound - Axilla, Right Wound Culture - Final Meth. resistant Staph. aureus Physical Exam Const Constitutional Narrative: Mild distress with exam of her right axilla and breast Chest Chest Narrative: Decreased erythema of right axilla and breast. Persistent i nduration around the drainage sites in both the axilla and right lateral breast. Persistent tenderness of this area as well. Spontaneous drainage of light brown/orange serous fluid Resp normal respiratory effort Assessment & Plan Assessment/Plan (1) Abscess of right axilla: (2) Mastitis, right, acute: PLAN: This is a 55-year-old female, with a history of type 2 diabetes, with MRSA infection of her right axilla and possibly right breast. She is postoperative day 3 from incision and drainage of this infection. Currently the packing has been changed 3 times daily. This local wound care has resulted in improvement in her exam, but she remains persistently tender in this area. She confirms that her has been instructed on the packing. ? Today I would like patient to shower and allow the shower water to irrigate her I&D site before packing is changed again ? Antibiotic therapy per medicine, currently IV vancomycin ? Continue work on patient's social situation given homelessness ? Continue to optimize glycemic control Charges/Coding Visit Charges Inpatient E&M: 99233 Subs Hosp L2
[2021-10-08] MEDS: Potassium Chloride Oral Tablet 20 MEQ 40 MEQ PO (10:04)
[2021-10-08] MEDS: Benztropine 2 MG Tablet 1 MG PO ×2 (10:04→21:54)
[2021-10-08] MEDS: Citalopram 40 MG TABLET PO (10:04)
[2021-10-08] MEDS: Juven (unflavored) Packet 1 PACKET PO ×2 (10:04→16:55)
[2021-10-08] MEDS: Enoxaparin 40 MG/0.4 ML Syringe SC (10:05)
[2021-10-08] MEDS: Insulin Glargine-YFGN 100 UNIT/ML Pen 18 UNIT SC (10:17)
[2021-10-08 11:55] LABS: Bedside Glucose 122 mg/dL (74-106)
--- NOTE | 2021-10-08 12:22 | PCM.PN.HOSP ---
Subjective Subjective Follow-up on MRSA right axillary abscess and breast cellulitis/infection: Patient was seen and examined. Her pain is fairly controlled. Admits to some nausea and loose stools. Denies any fever, vomiting. Objective Data Objective Data Vital Signs: Vital Signs Temp Pulse Resp BP Pulse Ox 98.1 F 88 88 H 128/66 H 93 10/08/21 07:54 10/08/21 07:54 10/08/21 07:54 10/08/21 07:54 10/08/21 07:54 Oxygen Flow Rate (L/min) 2 Oxygen Delivery Method Room Air Weight: 77.2 kg Body Mass Index (BMI) 29.5 Intake & Output: Intake and Output for Last 24 Hours 10/06/21 10/07/21 10/08/21 23:59 23:59 23:59 Intake Total 1332.58 / 1332.58 774 / 774 515 / 515 Balance 1332.58 / 1332.58 774 / 774 515 / 515 Lab / Micro Data Result Diagrams: 10/07/21 08:50 10/08/21 06:07 Labs: Laboratory Results - last 24 hr 10/07/21 16:13: POC Glucose 114 H 10/07/21 22:07: POC Glucose 264 H 10/08/21 06:07: Sodium 141, Potassium 4.2, Chloride 107, Carbon Dioxide 29.0, Anion Gap 5, BUN 14, Creatinine 0.84, Estim Creat Clear Calc 58.44, Est GFR (MDRD) Af Amer 89, Est GFR (MDRD) Non-Af 74, BUN/Creatinine Ratio 16.6, Glucose 152 H, Calcium 9.1 10/08/21 06:27: POC Glucose 155 H 10/08/21 11:45: POC Glucose 122 H Micro: Microbiology 10/05/21 10:00 Abs - Breast Gram Stain - Final 10/05/21 10:00 Abs - Breast Wound Culture - Final Meth. resistant Staph. aureus 10/05/21 10:00 Abs - Breast Anaerobic Culture - Preliminary No anaerobic bacteria isolated. 10/04/21 10:55 Blood Culture (Wb) - Left Wrist Blood Culture - Preliminary No growth in 48 hours. 10/04/21 10:50 Blood Culture (Wb) - Anticubital Left Blood Culture - Preliminary No growth in 48 hours. 10/04/21 10:54 Wound - Axilla, Right Gram Stain - Final 10/04/21 10:54 Wound - Axilla, Right Wound Culture - Final Meth. resistant Staph. aureus Physical Exam Narrative Physical exam: General: Alert, Oriented x3, Cooperative, No apparent distress HEENT: Atraumatic Oral: Moist Mucosa Neck: Supple Lungs: Clear to auscultation, dressing is intact in the right axilla, right breast is swollen Cardiovascular: HS I+II, regular, no murmurs Abdomen: Bowel Sounds Present, Soft, Non Tender Extremities: No edema Skin: No rashes, No breakdown Neurological: Grossly intact Psych/Mental Status: Appropriate Assessment & Plan Assessment/Plan (1) Abscess of right axilla: (2) Mastitis, right, acute: PLAN: 1. Acute right MRSA axillary/breast abscess/cellulitis Status post I&D of the right axilla and breast on 10/05/21 Wound cultures growing MRSA. Blood cultures are negative Continue on IV vancomycin ID consulted for antibiotics for discharge 2. Type II DM, HbA1c is 8.2, blood sugars fairly controlled Continue on Lantus with insulin sliding 3. Anxiety/depression/bipolar/PTSD Continue on home medication 4. Social issues?patient is homeless, lives in her car with her 5. DVT PPx- Lovenox SC Charges/Coding Visit Charges Inpatient E&M: 20541 Subs Hosp L2
--- NOTE | 2021-10-08 13:17 | PCM.CONS.GEN ---
Assessment & Plan Assessment/Plan (1) Abscess of right axilla: PLAN: MRSA abscess, now s/p I&D by Dr. Robert 10/05/21. On vanc, mario is 1. Bcx neg. Some spreading surrounding erythema. Will monitor. Will follow, thank you, d/w nursing HPI Consult Data Date of Consult: 10/08/21 HPI Narrative HPI Narrative: LEAH JERRY, is a 55 F who presented 10/04 with around 5 days progressive L axilla redness, pain, swelling. She popped it and had ongoing purulent drainage. No fever. No prior h/o skin abscess. Came to ED, admitted on vanc, surgery consulted, Dr. Robert did I&D 10/05. Still ongoing pain, increasing redness down her trunk, and some serosanguinous drainage with dressing change per nursing. No n/v/d. Full ROS performed and neg except as noted above. Reports covid vaccine x2 and booster. [facility] Medical History Asthma Bipolar 1 disorder Depression Diabetes History of diverticulitis Hx of intestinal obstruction PTSD (post-traumatic stress disorder) Home Medications amitriptyline 20 mg PO TID 07/15/21 [History Last Taken 1 Day Ago ~07/14/21] citalopram 60 mg PO DAILY 07/15/21 [History Last Taken 1 Day Ago ~07/14/21] haloperidol 5 mg PO QHS 07/15/21 [History Last Taken 07/14/21 22:00] hydroxyzine HCl 50 mg PO Q8 PRN 07/15/21 [History Last Taken 1 Day Ago ~07/14/21] metformin 500 mg PO BID 07/15/21 [History Last Taken 1 Day Ago ~07/14/21] prazosin 1 mg PO QHS 07/15/21 [History Last Taken Unknown] trazodone 150 mg PO QHS 07/15/21 [History Last Taken 1 Day Ago ~07/14/21] albuterol sulfate 2 puff INHALATION Q6H PRN #8.5 g 07/16/21 [Rx Last Taken Unknown] benztropine 1 mg PO BID 10/04/21 [History Last Taken Unknown] fluticasone propion-salmeterol [Advair HFA] 1 puff INHALATION BID 10/04/21 [History Last Taken Unknown] Allergy/AdvReac Type Severity Reaction Status Date / Time aminophylline Allergy Swelling Verified 10/04/21 10:11 amphetamine [From Adderall] Allergy Other Verified 10/04/21 10:11 dextroamphetamine Allergy Other Verified 10/04/21 10:11 [From Adderall] Iodinated Contrast Media [CT] Allergy Swelling Verified 10/04/21 10:11 iodine Allergy Swelling Verified 10/04/21 10:11 povidone-iodine Allergy Swelling Verified 10/04/21 10:11 [From Betadine] shellfish derived Allergy Swelling Verified 10/04/21 10:11 Sulfa (Sulfonamide Allergy Swelling Verified 10/04/21 10:11 Antibiotics) tetracycline AdvReac Rash Verified 10/04/21 10:11 Family History Father Diabetes Mother Diabetes Surgical History History of intestinal surgery History of lumpectomy of right breast Hx of appendectomy Hx of bilateral oophorectomy Hx of hysterectomy Hx of repair of right rotator cuff Social History household members: spouse Smoking Status: Never smoker alcohol intake: never substance use type: does not use Physical Exam Const alert, oriented x3 and no apparent distress General Appearance: cooperative Exam Limitations: no limitations HEENT head/scalp atraumatic Eyes PERRL and EOMs intact bilaterally Neck supple and No nodes Resp normal air movement and clear to auscultation bilaterally Cardio regular rate and regular rhythm GI soft to palpation, non-tender and non-distended Extremity General Extremity: Negative for edema Skin Skin Narrative: R axillary wound with packing in place, surrounding spreading faint erythema Neuro CN's II-XII intact bilaterally Lab / Micro Data Result Diagrams: 10/07/21 08:50 10/08/21 06:07 Labs: Laboratory Results - last 24 hr 10/07/21 16:13: POC Glucose 114 H 10/07/21 22:07: POC Glucose 264 H 10/08/21 06:07: Sodium 141, Potassium 4.2, Chloride 107, Carbon Dioxide 29.0, Anion Gap 5, BUN 14, Creatinine 0.84, Estim Creat Clear Calc 58.44, Est GFR (MDRD) Af Amer 89, Est GFR (MDRD) Non-Af 74, BUN/Creatinine Ratio 16.6, Glucose 152 H, Calcium 9.1 10/08/21 06:27: POC Glucose 155 H 10/08/21 11:45: POC Glucose 122 H Micro: Microbiology 10/05/21 10:00 Abs - Breast Gram Stain - Final 10/05/21 10:00 Abs - Breast Wound Culture - Final Meth. resistant Staph. aureus 10/05/21 10:00 Abs - Breast Anaerobic Culture - Preliminary No anaerobic bacteria isolated.
[2021-10-08] MEDS: 0.9% Saline Lock 10 ML Syringe IV ×2 (14:17→15:35)
[2021-10-08 15:32] LABS: Pathologist Review Reviewed
[2021-10-08 15:46] LABS: Vancomycin, Trough Level 21.3 ug/mL (5.0-15.0)
[2021-10-08 16:55] LABS: Bedside Glucose 210 mg/dL (74-106)
[2021-10-08] MEDS: traZODone 50 MG Tablet 150 MG PO (21:53)
[2021-10-08] MEDS: Doxazosin 1 MG Tablet PO (21:54)
[2021-10-08 22:11] LABS: Bedside Glucose 253 mg/dL (74-106)
[2021-10-09 02:48] LABS: Hematocrit 32.2 % (37-47); Hemoglobin 9.9 g/dL (12.0-15.0); Mean Corp Hgb Conc 30.7 g/dL (32-36); Mean Corpuscular Hgb 28.2 pg (27.0-32.0); Mean Corpuscular Volume 91.7 fL (81-99); Mean Platelet Vol. 9.2 fl (6.2-12.0); POSITIVE COUNT YES; POSITIVE MORPHOLOGY YES; Platelet Count 279 K/mm3 (150-450); RBC Distribution Width CV 13.5 % (11.6-14.6); RBC Distribution Width SD 45.6 fl (35.1-43.9); Red Blood Count 3.51 M/mm3 (4.2-5.4)
[2021-10-09 02:56] VITALS: BP 115/56; PULSE 76; RESP 18; TEMP 37.1; O2SAT 93
[2021-10-09 02:59] LABS: Differential Indicated MANUAL DIFF
[2021-10-09] MEDS: Acetaminophen 325 MG Tablet 650 MG PO ×2 (03:00→11:17)
[2021-10-09] MEDS: hydrOXYzine PAM 25 MG Capsule PO ×2 (03:00→11:17)
[2021-10-09] MEDS: 0.9% Saline Lock 10 ML Syringe IV (03:01)
[2021-10-09 03:11] LABS: Anion Gap 4 (5-15); BUN 19 mg/dL (7-18); BUN/Creat Ratio 20.7 RATIO (10-20); Chloride 107 mmol/L (98-107); Creatinine, Serum 0.92 mg/dL (0.55-1.02); EST Glomerular Filtration Rate 67 mL/min (>60); Est Glom Filt Rate - Afr Amer 81 mL/min (>60); Estimated Creatinine Clearance 53.36 ml/min; Glucose 158 mg/dL (74-106); Sodium Level 141 mmol/L (136-145)
[2021-10-09 03:12] LABS: Vancomycin, Trough Level 20.3 ug/mL (5.0-15.0)
[2021-10-09 03:14] LABS: Neutrophil-Band 5 % (0-5); Neutrophil-Segmented 46 % (47-70); Total Cells Counted 100 (MANUAL DIFF)
[2021-10-09 03:15] LABS: Eosinophil 6 % (0-5); Lymphocyte 26 % (19-41); Metamyelocyte 13 % (0-1); Monocyte 4 % (0-10); Nucleated Red Bld Cells,Manual 1 % (0-5)
[2021-10-09 03:16] LABS: Absolute Lymphocyte Count 1.56 X10^3/uL (0.83-4.51); Absolute Neutrophil Count 3.8 X10^3/uL (2.0-7.7); Lymphocyte # 1.56 X10^3/ul (0.83-4.51); Neutrophil # 3.85 X10^3/uL (2.7-7.7); Platelet Estimate ADEQUATE (ADEQ); Red Cell Morphology NORM C+C NORMAL (NORM C&C)
[2021-10-09] MEDS: oxyCODONE 5 MG Tablet PO ×2 (03:23→08:12)
[2021-10-09] MEDS: proCHLORPERazine 10 MG/2 ML Vial 5 MG IV (03:23)
--- NOTE | 2021-10-09 04:56 | PCM.RX.CS ---
Consult Pharmacy has been consulted to manage selected antiobiotic: Vancomycin Type of Consult: Follow-up Suspected Infection: Skin/Soft tissue Labs: Sodium 141 mmol/L (136-145) 10/09/21 02:37 Potassium 4.0 mmol/L (3.5-5.1) 10/09/21 02:37 Chloride 107 mmol/L (98-107) 10/09/21 02:37 Carbon Dioxide 30.0 mmol/L (21.0-32.0) 10/09/21 02:37 Anion Gap 4 (5-15) L 10/09/21 02:37 BUN 19 mg/dL (7-18) H 10/09/21 02:37 Creatinine 0.92 mg/dL (0.55-1.02) 10/09/21 02:37 Est GFR (MDRD) Af Amer 81 mL/min (>60) 10/09/21 02:37 Est GFR (MDRD) Non-Af 67 mL/min (>60) 10/09/21 02:37 BUN/Creatinine Ratio 20.7 RATIO (10-20) H 10/09/21 02:37 Glucose 158 mg/dL (74-106) H 10/09/21 02:37 Vancomycin Trough 20.3 ug/mL (5.0-15.0) H 10/09/21 02:37 Microbiology: Microbiology 10/05/21 10:00 Abs - Breast Gram Stain - Final 10/05/21 10:00 Abs - Breast Wound Culture - Final Meth. resistant Staph. aureus 10/05/21 10:00 Abs - Breast Anaerobic Culture - Preliminary No anaerobic bacteria isolated. 10/04/21 10:55 Blood Culture (Wb) - Left Wrist Blood Culture - Preliminary No growth in 48 hours. 10/04/21 10:50 Blood Culture (Wb) - Anticubital Left Blood Culture - Preliminary No growth in 48 hours. 10/04/21 10:54 Wound - Axilla, Right Gram Stain - Final 10/04/21 10:54 Wound - Axilla, Right Wound Culture - Final Meth. resistant Staph. aureus Goal Trough: 15-20 mcg/mL Pharmacy Plan for Drug Dosing: VANCOMYCIN LEVEL RECEIVED Current Vancomycin Dose: 1250mg IV Q12hr Number of Doses Received: several Vancomycin Level: 20.3 Hours Since Last Dose: 12hr Renal Function: 0.92 Renal Function Trend: slight increase, minimally significant Lab/Micro: (+) MRSA in 2 WCx Vancomycin Plan/Comments: The patient had a trough drawn which resulted in a value of 20.3 (Goal 15-20). Of note, this was the 2nd trough drawn in 24hr as there was a question of timing of administration against the trough draw (previous trough suspected to be drawn while medication was infusing, value was 21.3). Although the patient's trough was just above goal level, patient has had 0300 dose already, suspect the trough is higher at this time due to the slight increase in SCr and slightly elevated trough. Will plan on holding vancomycin for a 12hr period and re-dose once trough is <20. Would recommend patient's dose to be decreased back to the original dose of 1g IV Q12hr once trough is less than 20. Pending Level: *RANDOM* level 10/09/21 @1299 Pharmacy Service will continue to monitor and adjust dosing as required.
[2021-10-09 06:56] LABS: Bedside Glucose 148 mg/dL (74-106)
[2021-10-09] MEDS: Budesonide Respules 0.5 MG/2 ML AMPUL.NEB. INHALATION (07:35)
[2021-10-09] MEDS: Albuterol 2.5 MG/3 ML VIAL.NEB. INHALATION ×2 (07:35→13:54)
[2021-10-09 07:36] VITALS: PULSE 77; RESP 16; O2SAT 94
--- NOTE | 2021-10-09 08:02 | PN.HOSP_ITS ---
Objective Data Objective Data Vital Signs: Vital Signs Temp Pulse Resp BP Pulse Ox 98.7 F 77 16 115/56 L 94 10/09/21 02:56 10/09/21 07:36 10/09/21 07:36 10/09/21 02:56 10/09/21 07:36 Oxygen Flow Rate (L/min) 2 Oxygen Delivery Method Room Air Weight: 77 kg Body Mass Index (BMI) 29.5 Intake & Output: Intake and Output for Last 24 Hours 10/07/21 10/08/21 10/09/21 23:59 23:59 23:59 Intake Total 774 / 774 790 / 790 1275 / 1275 Balance 774 / 774 790 / 790 1275 / 1275 Lab / Micro Data Result Diagrams: 10/09/21 02:37 10/09/21 02:37 Labs: Laboratory Results - last 24 hr 10/05/21 04:56: Diff Path Review Reviewed 10/08/21 11:45: POC Glucose 122 H 10/08/21 14:30: Vancomycin Trough 21.3 H 10/08/21 16:49: POC Glucose 210 H 10/08/21 21:52: POC Glucose 253 H 10/09/21 02:37: Sodium 141, Potassium 4.0, Chloride 107, Carbon Dioxide 30.0, Anion Gap 4 L, BUN 19 H, Creatinine 0.92, Estim Creat Clear Calc 53.36, Est GFR (MDRD) Af Amer 81, Est GFR (MDRD) Non-Af 67, BUN/Creatinine Ratio 20.7 H, Glucose 158 H, Calcium 9.0 10/09/21 02:37: WBC 6.0, RBC 3.51 L, Hgb 9.9 L, Hct 32.2 L, MCV 91.7, MCH 28.2, MCHC 30.7 L, RDW Std Deviation 45.6 H, RDW Coeff of Elsi 13.5, Plt Count 279, MPV 9.2, Neut % (Auto) Not Reportable, Absolute Neuts (auto) 3.8, Absolute Lymphs (auto) 1.56, Total Counted 100, Neutrophils % (Manual) 46 L, Band Neutrophils % 5, Lymphocytes % (Manual) 26, Monocytes % (Manual) 4, Eosinophils % (Manual) 6 H , Metamyelocytes % 13 H, Nucleated RBCs/100 WBC 1, Diff Path Review May foll, Platelet Estimate ADEQUATE, RBC Morphology NORM C+C 10/09/21 02:37: Vancomycin Trough 20.3 H 10/09/21 06:47: POC Glucose 148 H Micro: Microbiology 10/05/21 10:00 Abs - Breast Gram Stain - Final 10/05/21 10:00 Abs - Breast Wound Culture - Final Meth. resistant Staph. aureus 10/05/21 10:00 Abs - Breast Anaerobic Culture - Preliminary No anaerobic bacteria isolated. 10/04/21 10:55 Blood Culture (Wb) - Left Wrist Blood Culture - Preliminary No growth in 48 hours. 10/04/21 10:50 Blood Culture (Wb) - Anticubital Left Blood Culture - Preliminary No growth in 48 hours. 10/04/21 10:54 Wound - Axilla, Right Gram Stain - Final 10/04/21 10:54 Wound - Axilla, Right Wound Culture - Final Meth. resistant Staph. aureus
[2021-10-09] MEDS: Juven (unflavored) Packet 1 PACKET PO (08:10)
[2021-10-09] MEDS: Insulin Glargine-YFGN 100 UNIT/ML Pen 18 UNIT SC (08:10)
[2021-10-09] MEDS: Enoxaparin 40 MG/0.4 ML Syringe SC (08:11)
[2021-10-09] MEDS: Citalopram 40 MG TABLET PO (08:12)
[2021-10-09] MEDS: Benztropine 2 MG Tablet 1 MG PO (08:12)
--- NOTE | 2021-10-09 08:37 | PN.SURG_ITS ---
Subjective Subjective Patient seen and examined during AM rounds. Again, she reports a severe headache overnight. She reports persistent tenderness in her right armpit and right breast. She confirms she did shower yesterday morning and this felt great. She continues to express concern about the post hospital phase of her recovery in light of her homeless status. Objective Data Objective Data Vital Signs: Vital Signs Temp Pulse Resp BP Pulse Ox 98.7 F 77 16 115/56 L 94 10/09/21 02:56 10/09/21 07:36 10/09/21 07:36 10/09/21 02:56 10/09/21 07:36 Oxygen Flow Rate (L/min) 2 Oxygen Delivery Method Room Air Weight: 169 lb 12.095 oz Body Mass Index (BMI) 29.5 Intake & Output: Intake and Output for Last 24 Hours 10/07/21 10/08/21 10/09/21 23:59 23:59 23:59 Intake Total 774 / 774 790 / 790 1275 / 1275 Balance 774 / 774 790 / 790 1275 / 1275 Lab / Micro Data Result Diagrams: 10/09/21 02:37 10/09/21 02:37 Labs: Laboratory Results - last 24 hr 10/05/21 04:56: Diff Path Review Reviewed 10/08/21 11:45: POC Glucose 122 H 10/08/21 14:30: Vancomycin Trough 21.3 H 10/08/21 16:49: POC Glucose 210 H 10/08/21 21:52: POC Glucose 253 H 10/09/21 02:37: Sodium 141, Potassium 4.0, Chloride 107, Carbon Dioxide 30.0, Anion Gap 4 L, BUN 19 H, Creatinine 0.92, Estim Creat Clear Calc 53.36, Est GFR (MDRD) Af Amer 81, Est GFR (MDRD) Non-Af 67, BUN/Creatinine Ratio 20.7 H, Glucose 158 H, Calcium 9.0 10/09/21 02:37: WBC 6.0, RBC 3.51 L, Hgb 9.9 L, Hct 32.2 L, MCV 91.7, MCH 28.2, MCHC 30.7 L, RDW Std Deviation 45.6 H, RDW Coeff of Elsi 13.5, Plt Count 279, MPV 9.2, Neut % (Auto) Not Reportable, Absolute Neuts (auto) 3.8, Absolute Lymphs (auto) 1.56, Total Counted 100, Neutrophils % (Manual) 46 L, Band Neutrophils % 5, Lymphocytes % (Manual) 26, Monocytes % (Manual) 4, Eosinophils % (Manual) 6 H , Metamyelocytes % 13 H, Nucleated RBCs/100 WBC 1, Diff Path Review May foll, Platelet Estimate ADEQUATE, RBC Morphology NORM C+C 10/09/21 02:37: Vancomycin Trough 20.3 H 10/09/21 06:47: POC Glucose 148 H Micro: Microbiology 10/05/21 10:00 Abs - Breast Gram Stain - Final 10/05/21 10:00 Abs - Breast Wound Culture - Final Meth. resistant Staph. aureus 10/05/21 10:00 Abs - Breast Anaerobic Culture - Preliminary No anaerobic bacteria isolated. 10/04/21 10:55 Blood Culture (Wb) - Left Wrist Blood Culture - Preliminary No growth in 48 hours. 10/04/21 10:50 Blood Culture (Wb) - Anticubital Left Blood Culture - Preliminary No growth in 48 hours. 10/04/21 10:54 Wound - Axilla, Right Gram Stain - Final 10/04/21 10:54 Wound - Axilla, Right Wound Culture - Final Meth. resistant Staph. aureus Physical Exam Const Constitutional Narrative: Mild distress with exam of right axilla/breast Chest Chest Narrative: Decreasing erythema and induration of soft tissues around surgical drainage sites. There is thin, serous drainage to patient's dressing. She does seem to have some superficial reaction to the adhesive from the tape holding dressing. Resp normal respiratory effort Assessment & Plan Assessment/Plan (1) Abscess of right axilla: (2) Mastitis, right, acute: PLAN: This is a 55-year-old female, with a history of type 2 diabetes, with MRSA infection of her right axilla and possibly right breast. She is postoperative day 4 from incision and drainage of this infection. Currently the packing has been changed 3 times daily. Patient's surgical site continues to exhibit progressive improvements. From a surgical standpoint, it seems reasonable to begin consideration of outpatient management of patient's wound. She confirms that her has been instructed on wound packing. She initially denies any access to regular showering, but then suggests she may be able to visit the [facility] once daily for this purpose. ? Today I would like patient to again shower and allow the water to irrigate the I&D site before repacking ? Transition to plain packing strip rather than iodoform ? Antibiotic therapy per infectious disease, currently IV vancomycin ? Continue work on patient's social situation given homelessness ? Continue to optimize glycemic control ? Should patient be deemed fit for discharge from a medical standpoint, would like to see the patient back within 1 week of hospital discharge for a wound check Charges/Coding Visit Charges Inpatient E&M: 75185 Subs Hosp L2
[2021-10-09 09:29] LABS: Pathologist Review Reviewed
[2021-10-09 09:31] LABS: Pathologist Review Reviewed
[2021-10-09 09:43] VITALS: BP 134/66; PULSE 81; RESP 18; TEMP 36.7; O2SAT 95
--- NOTE | 2021-10-09 10:00 | PCM.DC ---
Discharge Instructions Diet Discharge Diet: 1800 Calorie Control Diet and 2000 mg Sodium Diet Activity Discharge Activity: Return to Normal Activity Follow Up Care Test Results: Test results from this visit will be discussed in further detail at your follow-up appointment, if applicable. Discharge Plan Admission Admit Date/Time: 10/04/21 12:18 Primary Reason for Your Visit: Acute right breast and axillary abscess/cellulitis Attending Provider: Blessing Jolly Consulting Providers: Mahesh Robert ; Amador Ron ; Gabriele Quiroz Instructions Additional Instructions / Restrictions: Complete your antibiotics as prescribed. Continue with daily wound dressing and packing as instructed. Observe very strict hand hygiene when doing your wound dressings. Follow-up with general surgery within a week of discharge. Discharge Orders/Prescriptions Prescriptions: New levofloxacin 500 mg tablet 500 mg PO DAILY Qty: 7 RF: 0 insulin glargine-yfgn 100 unit/mL (3 mL) Insulin Pen 18 unit subcut DAILY 30 Days Qty: 5.4 RF: 0 acidophilus-pectin, citrus 25 million cell -100 mg Tablet 1 tab PO TID 7 Days Qty: 21 RF: 0 Continued haloperidol 5 mg tablet 5 mg PO QHS RF: 0 prazosin 1 mg capsule 1 mg PO QHS RF: 0 trazodone 150 mg tablet 150 mg PO QHS RF: 0 metformin 500 mg tablet extended release 24 hr 500 mg PO BID RF: 0 amitriptyline 10 mg tablet 20 mg PO TID RF: 0 albuterol sulfate 90 mcg/actuation HFA aerosol inhaler 2 puff inhalation Q6H PRN (Reason: shortness of breath or wheezing) Qty: 8.5 RF: 0 benztropine 1 mg tablet 1 mg PO BID RF: 0 Advair HFA 45-21 mcg/actuation HFA aerosol inhaler 1 puff INHALATION BID RF: 0 No Action citalopram 40 mg tablet 60 mg PO DAILY RF: 0 hydroxyzine HCl 50 mg tablet 50 mg PO Q8 PRN (Reason: anxiety) RF: 0 Referrals / Follow Up: ROD MONTEIRO [Other] - In 1 Week ROD MONTEIRO [Other] Mahesh Robert MD [STAFF PHYSICIAN] - Within 1 Week Disposition Disposition (needs filled in before D/C Order can be placed): Home, Self Care
--- NOTE | 2021-10-09 10:00 | PCM.DC.SUM ---
Providers Date of Admission: 10/04/21 Date of Discharge: 10/09/21 Primary Care Physician: ROD MONTEIRO Consultations 10/04/21 13:24 Consult: General Surgery Routine Consulting Provider: Mahesh Robert Reason for Consult: right axillary abscess extending to right breast, needs drainage? EMERGENT Consult: No MD Notified: Yes Date Notified: 10/04/21 Time Notified: 13:01 Method of Notification: Verbal 10/07/21 15:08 Consult: Infectious Disease Routine Consulting Provider: Amador Ron Reason for Consult: MRSA Abscess right axilla and breast. Allergic to oral MRSA antibiotics EMERGENT Consult: No MD Notified: Yes Date Notified: 10/07/21 Time Notified: 15:08 Method of Notification: Text Reason For Visit: RIGHT AXILLARY ABSCESS Diagnosis Discharge Diagnosis (1) Abscess of right axilla: Status: Acute Code(s): L02.411 - Cutaneous abscess of right axilla (2) Mastitis, right, acute: Status: Acute Code(s): N61.0 - Mastitis without abscess (3) Uncontrolled blood glucose: Status: Acute Code(s): R73.09 - Other abnormal glucose Medications at Discharge Home Medications amitriptyline 20 mg PO TID 07/15/21 citalopram 60 mg PO DAILY 07/15/21 haloperidol 5 mg PO QHS 07/15/21 hydroxyzine HCl 50 mg PO Q8 PRN 07/15/21 metformin 500 mg PO BID 07/15/21 prazosin 1 mg PO QHS 07/15/21 trazodone 150 mg PO QHS 07/15/21 albuterol sulfate 2 puff INHALATION Q6H PRN #8.5 g 07/16/21 Advair HFA 1 puff INHALATION BID 10/04/21 benztropine 1 mg PO BID 10/04/21 acidophilus-pectin, citrus 1 tab PO TID 7 Days #21 tab 10/09/21 citalopram 40 mg PO DAILY 7 Days #7 tab 10/09/21 hydroxyzine pamoate 25 mg PO Q8 PRN 7 Days cap 10/09/21 insulin glargine-yfgn 18 unit SUBCUT DAILY 30 Days #5.4 ml 10/09/21 levofloxacin 500 mg PO DAILY #7 tab 10/09/21 pen needle, diabetic [Pen Needle] #50 ea 10/09/21 Hospital Course Operations - (I&D of right breast/axillary abscess (10/05/21)) Summary of Care Provided Minutes Spent on Discharge: 40 Hospital Course: 55-year-old female with past medical history of type II DM, hypertension, anxiety/depression who comes in with complaints of the feeling of a lump under her right armpit with redness ongoing for 5 days. Patient stated that it began as a red spot in her right arm. She reported bursting it 2 days prior to admission. The discharge, swelling and erythema from the swelling became worse. It then spread to the lateral aspect of her right breast and the upper posterior medial aspect of her right arm. In the ED, patient's CBC was normal. Her chemistry showed elevated blood sugar at 347. Lactic acid was 2.1. She was started on IV Unasyn. Blood and wound cultures with taken. General surgery was consulted from the ED. Breast ultrasound showed a palpable mass corresponding to solid mass with cystic areas extending to the breast. Patient was taken for I&D on 10/05/21. Intraoperatively, there was a spontaneously draining right axillary abscess with some extension to the right upper and tracking down into the upper outer quadrant of the right breast with approximately 6 cm undermining to the superior portion of the breast and 4 cm undermining posteriorly. Wound cultures came back positive for MRSA. Patient had multiple allergies. Infectious disease was consulted. Patient was recommended to continue on 7 more days of Levaquin. Changes were made to patient's citalopram, hydroxyzine in view of being on Levaquin and the possibility of a prolonged QTC state. Patient will go back to her previous doses of Haldol, citalopram, hydroxyzine after completing antibiotics. Patient's blood sugar was uncontrolled during this hospital stay, HbA1c 8.2. Her blood sugars were better controlled on Lantus in the hospital. She was prescribed Lantus with glucometer, insulin pen needles, lancets for further close management. Patient is homeless and lives in her car with her . Social work and home health care case manager were consulted and later on patient was going to go live with her daughter. She had initially expressed reluctance going to live with her daughter as she has bedbugs. Her was coming into be taught how to do the wound dressing and packing. She was also taught how to use her insulin. Strict hand hygiene was stressed during management of the wound at home. She will follow-up with her primary care doctor as well as with Dr. Robert in 1 week Physical Exam Narrative Physical exam: General: Alert, Oriented x3, HEENT: Atraumatic Oral: Moist Mucosa Neck: Supple Lungs: Clear to auscultation, dressing is intact in the right axilla, right breast is swollen Cardiovascular: HS I+II, regular, no murmurs Abdomen: Bowel Sounds Present, Soft, Non Tender Extremities: No edema Skin: No rashes, No breakdown Neurological: Grossly intact Psych/Mental Status: Appropriate Weight / BMI Weight Weight: 77 kg Body Mass Index (BMI) 29.5 ABG / Lab / Microbiology Data Result Diagrams: 10/09/21 02:37 10/09/21 02:37 Laboratory: Laboratory Results - last 24 hr 10/05/21 04:56: Diff Path Review Reviewed 10/06/21 07:00: Diff Path Review Reviewed 10/07/21 08:50: Diff Path Review Reviewed 10/08/21 11:45: POC Glucose 122 H 10/08/21 14:30: Vancomycin Trough 21.3 H 10/08/21 16:49: POC Glucose 210 H 10/08/21 21:52: POC Glucose 253 H 10/09/21 02:37: Sodium 141, Potassium 4.0, Chloride 107, Carbon Dioxide 30.0, Anion Gap 4 L, BUN 19 H, Creatinine 0.92, Estim Creat Clear Calc 53.36, Est GFR (MDRD) Af Amer 81, Est GFR (MDRD) Non-Af 67, BUN/Creatinine Ratio 20.7 H, Glucose 158 H, Calcium 9.0 10/09/21 02:37: WBC 6.0, RBC 3.51 L, Hgb 9.9 L, Hct 32.2 L, MCV 91.7, MCH 28.2, MCHC 30.7 L, RDW Std Deviation 45.6 H, RDW Coeff of Elsi 13.5, Plt Count 279, MPV 9.2, Neut % (Auto) Not Reportable, Absolute Neuts (auto) 3.8, Absolute Lymphs (auto) 1.56, Total Counted 100, Neutrophils % (Manual) 46 L, Band Neutrophils % 5, Lymphocytes % (Manual) 26, Monocytes % (Manual) 4, Eosinophils % (Manual) 6 H, Metamyelocytes % 13 H, Nucleated RBCs/100 WBC 1, Diff Path Review May foll, Platelet Estimate ADEQUATE, RBC Morphology NORM C+C 10/09/21 02:37: Vancomycin Trough 20.3 H 10/09/21 06:47: POC Glucose 148 H Microbiology: Microbiology 10/05/21 10:00 Abs - Breast Gram Stain - Final 10/05/21 10:00 Abs - Breast Wound Culture - Final Meth. resistant Staph. aureus 10/05/21 10:00 Abs - Breast Anaerobic Culture - Preliminary No anaerobic bacteria isolated. 10/04/21 10:55 Blood Culture (Wb) - Left Wrist Blood Culture - Preliminary No growth in 48 hours. 10/04/21 10:50 Blood Culture (Wb) - Anticubital Left Blood Culture - Preliminary No growth in 48 hours. 10/04/21 10:54 Wound - Axilla, Right Gram Stain - Final 10/04/21 10:54 Wound - Axilla, Right Wound Culture - Final Meth. resistant Staph. aureus D/C Instructions Discharge Diet: 1800 Calorie Control Diet and 2000 mg Sodium Diet Meaningful Use Info Meaningful Use Diagnoses (Choose all that apply): None applicable Discharge Plan Admission Admit Date/Time: 10/04/21 12:18 Primary Reason for Your Visit: Acute right breast and axillary abscess/cellulitis Attending Provider: Blessing Jolly Consulting Providers: Mahesh Robert ; Amador Ron ; Gabriele Quiroz Instructions Additional Instructions / Restrictions: Complete your antibiotics as prescribed. Continue with daily wound dressing and packing as instructed. Observe very strict hand hygiene when doing your wound dressings. Follow-up with general surgery within a week of discharge. Discharge Orders/Prescriptions Prescriptions: New levofloxacin 500 mg tablet 500 mg PO DAILY Qty: 7 RF: 0 insulin glargine-yfgn 100 unit/mL (3 mL) Insulin Pen 18 unit subcut DAILY 30 Days Qty: 5.4 RF: 0 acidophilus-pectin, citrus 25 million cell -100 mg Tablet 1 tab PO TID 7 Days Qty: 21 RF: 0 (DME) pen needle, diabetic [Pen Needle] 31 gauge x 1/4 needle See Rx Instructions .ROUTE .MEDSUPPLY Qty: 50 RF: 1 citalopram 40 mg Tablet 40 mg PO DAILY 7 Days Qty: 7 RF: 0 hydroxyzine pamoate 25 mg Capsule 25 mg PO Q8 PRN (Reason: anxiety) 7 Days RF: 0 Continued haloperidol 5 mg tablet 5 mg PO QHS RF: 0 prazosin 1 mg capsule 1 mg PO QHS RF: 0 trazodone 150 mg tablet 150 mg PO QHS RF: 0 metformin 500 mg tablet extended release 24 hr 500 mg PO BID RF: 0 amitriptyline 10 mg tablet 20 mg PO TID RF: 0 albuterol sulfate 90 mcg/actuation HFA aerosol inhaler 2 puff inhalation Q6H PRN (Reason: shortness of breath or wheezing) Qty: 8.5 RF: 0 benztropine 1 mg tablet 1 mg PO BID RF: 0 Advair HFA 45-21 mcg/actuation HFA aerosol inhaler 1 puff INHALATION BID RF: 0 Held citalopram 40 mg tablet 60 mg PO DAILY RF: 0 Hold Instructions: Resume on 10/16/21. after you finish antibiotics hydroxyzine HCl 50 mg tablet 50 mg PO Q8 PRN (Reason: anxiety) RF: 0 Hold Instructions: Resume on 10/16/21. after finishing your antibiotics Other Ambulatory Orders: Glucometer (Routine) Location: None Selected Ordered By: Dr. Blessing Jolly Referrals / Follow Up: ROD MONTEIRO [Other] - In 1 Week (THE OFFICE STATED THAT THEY WOULD CALL THE PATIENT TO SET UP A APPOINTMENT.) ROD MONTEIRO [Other] Mahesh Robert MD [STAFF PHYSICIAN] - Within 1 Week (LEFT A MESSAGE FOR 'S OFFICE TO CALL PATIENT WITH APPOINTMENT TIME.) Disposition Disposition (needs filled in before D/C Order can be placed): Home, Self Care Charges/Coding Visit Charges Inpatient E&M: 55959 Disch Hosp
--- NOTE | 2021-10-09 10:45 | CASEMGMT ---
Addendum entered by Theodora Del Angel 10/09/21 15:36: Received tc back from [facility] Alexandra, she states that they can do a nurse visit on October 11 at 2pm as the physicians are out on Friday and Friday. NEHEMIAS MA in to pt room, provided information to patient as well as [facility] brochure. Pt is aware of appt. Addendum entered by Theodora Del Angel 10/09/21 14:58: Received tc back from [facility] who states pt PCP will not follow [facility] and that they cannot take pt d/t bed bugs in the home. The following [facility] agencies are not able to take pt either d/t pt location being in [place], the home having bed bugs or an issue with caresource payments: [facility], [facility], [facility] and [facility]. Updated hospitalist. TC to [facility] to see if there is a possibility of a nurse visit to have pt seen prior to October 17 when will see pt. Will await returned call. Updated pt and of the above. She is aware that if the [facility] will see her and this is known post dc, NEHEMIAS MA will call her to let her know appt time/date. Pt denies further questions regarding dressing changes. RX for wound supplies provided to pt . Addendum entered by Theodora Del Angel 10/09/21 13:37: NEHEMIAS MA back into pt room, pt states she does have a BGM with supplies. Addendum entered by Theodora Del Angel 10/09/21 13:22: NEHEMIAS MA in to pt room, pt chose [facility] then states she doesn't really mind who is picked, whomever will go to [place]. TC to [facility], spoke with [facility], they are unable to accept pt. Faxed referral to [facility] and spoke with intake, they will review. Faxed referral also to [facility] at this time. Addendum entered by Theodora Del Angel 10/09/21 11:21: Pt has left the floor. NEHEMIAS MA in to pt room. Discussed with pt the plan, she states she is agreeable to this plan. Discussed with her how quickly it had changed once her came into the room. She states she is agreeable to plan, she just didn't know if she could stay at his dtr's home. She states she feels safe there and she feels safe with her . She states she would like him to pick the HHC agency and he will be back within the hour. Addendum entered by Theodora Del Angel 10/09/21 11:18: 1055- Pt called dtr on phone. DtrKaren confirmed that pt will be staying with her and she was agreeable to HHC coming to her home. 1118-Patient was provided a list of HHC providers including quality and resource use data and consistent with the patient?s preferred geographic region, medical needs, and insurance network. Patient and will review list. Addendum entered by Theodora Del Angel 10/09/21 11:08: 1055- NEHEMIAS MA in to pt room with SW. Pt present. Pt states they will be staying at his dtr's house in [place]. Discussed options of HHC coming there if there is a residence for patient and what services HHC could offer. Pt and agreeable to this. has watched dressing change and will perform yet prior to dc. Updated hospitalist. Original Note: NEHEMIAS MA in to pt room to make aware of options for showering at [facility] 02-18, . Also discussed the 180 option for housing but that pt will not be able to perform dressing change. Pt states she will go to [facility] and on the weekends she will go to her 's dtr's house to shower. Pt came in room then began asking about [facility]. Made aware that TCU did not take pt insurance.
--- NOTE | 2021-10-09 10:54 | PCM.PN.ID ---
Physical Exam Narrative Feeling better, redness improved, no fever, no n/v/d. Pain at 7/10. C/o sore in perineum. Const alert and no apparent distress General Appearance: cooperative Resp normal air movement and clear to auscultation bilaterally Cardio regular rate and regular rhythm GI soft to palpation, non-tender and non-distended Skin Skin Narrative: Packing in place. Erythema down trunk is resolved. Shallow wound in perineum, no induration or drainage ID ID: Route of nutrition/ use of supplements: [] Nutritional Intake: [] IV Site: [] Luong Catheter: [] Assessment & Plan Assessment/Plan (1) Abscess of right axilla: PLAN: MRSA abscess, now s/p I&D by Dr. Robert 10/05/21. On vanc, mario is 1. Bcx neg. Redness much better. Ok for d/c today or tomorrow on 7 more days po levaquin Will follow, d/w primary team
[2021-10-09] MEDS: Insulin Lispro 100 UNIT/ML INSULN.PEN SC (11:09)
[2021-10-09 11:30] LABS: Bedside Glucose 200 mg/dL (74-106)
--- NOTE | 2021-10-09 12:12 | CASEMGMT ---
Social Work Phone call to [facility] who states pt can use the Living Room M-F from 10-3 for showers and laundry. There are no restrictions on number of use. RNCM updated and to notify pt. ELEANOR and RNCM met with pt and spouse in room to discuss discharge plan. Pt now stating plan is for pt to go to her dgts home at time of discharge and will live there during recovery. expresses understanding of need for pt to shower daily and he states pt will be able to shower there. remains adamant that there is no problem with going to dgts house although pt stated earlier she would not go there. SW inquired of pt if she is agreeable to go to dgts house and pt verbally confirms she is. RNCM to work on home health services. YANIRA Tellez
[2021-10-09 12:46] LABS: Pathologist Review Reviewed
[2021-10-09 13:54] VITALS: PULSE 86; RESP 18
[2021-10-09 14:11] VITALS: BP 122/59; PULSE 88; RESP 18; TEMP 36.8; O2SAT 97
--- NOTE | 2021-10-10 14:10 | CASEMGMT ---
TC from Adonis at [facility], he is updated on pt and reason for visit tomorrow. He is aware to disregard info from [facility] that the supplies have been taken care of. Received tc from who also received info supplies, aware to disregard. TC to Jacqueline at [facility], she states that [facility] [employer] [facility] [place] needs the wound staged for supplies to be covered. Made her aware this is a surgical wound and the op note was faxed to A[facility] earlier this morning. She states no further info should be needed. She took this NEHEMIAS CM phone number and is aware to call should there be any further information needed. See NEHEMIAS BOYD TC for other information.
== END 2021-10-09 15:55 | disposition home or self-care (01) | DRG 364 ==
LOC: ED 12:23 → MS3 12:37
PROVIDERS: Internal Medicine Infectious Disease; Nurse Practitioner; Surgery; Admitting Provider Internal Medicine; Emergency Provider Emergency Medicine; Visit Provider Internal Medicine
PROC: 0J960ZZ Drainage of Chest Subcutaneous Tissue and Fascia, Open Approach (ICD-10-PCS; principal; 2021-10-05 08:35)
DX: N61.1 Abscess of the breast and nipple (principal); L02.411 Cutaneous abscess of right axilla; L03.113 Cellulitis of right upper limb; B95.62 Methicillin resistant Staphylococcus aureus infection as the cause of diseases classified elsewhere; J44.9 Chronic obstructive pulmonary disease, unspecified; J45.20 Mild intermittent asthma, uncomplicated; I25.10 Atherosclerotic heart disease of native coronary artery without angina pectoris; E11.65 Type 2 diabetes mellitus with hyperglycemia; E87.6 Hypokalemia; E78.5 Hyperlipidemia, unspecified; I10 Essential (primary) hypertension; M79.7 Fibromyalgia; Z59.00 Homelessness unspecified; F31.9 Bipolar disorder, unspecified; F41.9 Anxiety disorder, unspecified; Z79.4 Long term (current) use of insulin
CPT/HCPCS: 36415; 76642; 76882; 80048; 80053; 80202; 82962; 83036; 83605; 83735; 84100; 85025; 85610; 85730; 87040; 87070; 87075; 87077; 87186; 87205; 87640; 93005; 94640; 99285; J7030; J7050; J7120; A4216; J0295; J2405

== ENCOUNTER 2021-10-11 13:54 | Outpatient (RCR) | payer MEDICAID, SELFPAY ==
[2021-10-11 14:21] VITALS: BP 126/81; PULSE 98; TEMP 36.3
== END 2021-10-16 23:59 | disposition home or self-care (01) ==
LOC: WC 13:54
DX: N61.1 Abscess of the breast and nipple (principal); L02.411 Cutaneous abscess of right axilla; Z98.890 Other specified postprocedural states
CPT/HCPCS: 99213; G0463

== ENCOUNTER → 2021-10-30 | Outpatient (CLI) | payer MEDICAID, SELFPAY | END | disposition home or self-care (01) | LOC: LABSPEC 15:43 | PROVIDERS: Referring Provider Surgery; Visit Provider Surgery | DX: Z22.322 Carrier or suspected carrier of Methicillin resistant Staphylococcus aureus (principal) | CPT/HCPCS: 87081 ==

== ENCOUNTER → 2021-11-09 | Outpatient (CLI) | payer MEDICAID, SELFPAY ==
--- NOTE | 2021-11-09 12:06 | BI_ITS ---
MAMMOGRAPHY - BILATERAL SCREENING REASON FOR EXAM: Female, 55 years old. Routine annual screening examination. PERTINENT HISTORY: Aunt with breast cancer. TECHNIQUE: Digital bilateral breast jacque (3D mammographic acquisition) in the CC and MLO projections. 2-D mediolateral oblique (MLO) and craniocaudad (CC) views of both breasts were obtained. CAD: Full Field Digital Mammography with Computer Added Detection was performed. COMPARISON: Comparison is made with prior outside examination dated 08/16/2016. FINDINGS: Breast Composition: The breasts are almost entirely fatty. There is a 7.4 mm x 7 mm well-defined nodule in the deep upper outer aspect of the left breast. This has increased in size as compared to prior study. Correlation with ultrasound is recommended. There is also evidence of a 1.3 cm right axillary lymph node. Correlation with ultrasound is recommended. No other significant abnormalities are identified. BI/SCRN MAMM (CAD)W/JACQUE BILAT IMPRESSION: 7.4 mm x 7 mm well-defined nodule in the deep upper outer aspect of the left breast as well as a 1.3 cm right axillary lymph node. Correlation with ultrasound is recommended. ASSESSMENT CATEGORY: BIRADS Category 0: Incomplete. Need additional imaging evaluation. A letter regarding these results will be sent to the patient by the facility within 30 days. Approximately 10% of breast cancers are not detected by mammography. A normal mammogram should not delay biopsy of a clinically suspicious abnormality. [id number] Electronically Signed: Henrry Barroso MD at 13:48 EDT ,
== END | disposition home or self-care (01) ==
LOC: OPBI 12:05
PROVIDERS: Visit Provider Surgery
DX: Z12.31 Encounter for screening mammogram for malignant neoplasm of breast (principal)
CPT/HCPCS: 77063; 77067

== ENCOUNTER → 2021-11-14 | Outpatient (CLI) | payer MEDICAID, SELFPAY ==
--- NOTE | 2021-11-14 09:32 | US_ITS ---
STUDY: ULTRASOUND BREAST - RIGHT REASON FOR EXAM: Female, 55 years old. Abnormal screening mammogram. TECHNIQUE: Axial and longitudinal images of the RIGHT breast were performed with a high resolution ultrasound transducer. # OF IMAGES: 33 COMPARISON: Comparison is made with prior mammogram dated 11/09/2021 and prior sonogram of the right breast dated 10/04/2021. FINDINGS: RIGHT Breast: The axillary region of the right breast was examined with ultrasound. The mammographic abnormality corresponds to heterogeneous solid and cystic nodule measuring 1 cm x 1.6 cm x 0.7cm. Biopsy recommended. IMPRESSION: Heterogeneous appearance in the axillary region of the right breast as described. Biopsy recommended. ASSESSMENT CATEGORY: BIRADS Category 4: Suspicious - Biopsy Should Be Considered. A letter regarding these results will be sent to the patient by the facility within 30 days. Electronically Signed: Henrry Barroso MD at 12:51 EDT , STUDY: ULTRASOUND BREAST - LEFT REASON FOR EXAM: Female, 55 years old. Abnormal screening mammogram. TECHNIQUE: Axial and longitudinal images of the LEFT breast were performed with a high resolution ultrasound transducer. # OF IMAGES: 33 COMPARISON: Comparison is made with prior mammogram dated 11/09/2021. FINDINGS: LEFT Breast: The mammographic abnormality corresponds to a 9 mm x 9 mm x 6 mm hypoechoic nodule with central fatty hilum suggestive of a lymph node. US/Breast Limited Unilateral IMPRESSION: The mammographic abnormality corresponds to a 9 mm x 9 mm x 6 mm benign appearing lymph node. ASSESSMENT CATEGORY: BIRADS Category 2: Benign. A letter regarding these results will be sent to the patient by the facility within 30 days. Electronically Signed: Henrry Barroso MD at 12:52 EDT ,
== END | disposition home or self-care (01) ==
LOC: OPUS 09:28
PROVIDERS: Visit Provider Surgery
DX: R92.8 Other abnormal and inconclusive findings on diagnostic imaging of breast (principal)
CPT/HCPCS: 76642

== ENCOUNTER → 2021-11-23 | Outpatient (CLI) | payer MEDICAID, SELFPAY ==
--- NOTE | 2021-11-23 | BRBX_PTH ---
PATIENT: LEAH EJRRY LOC: [facility] U#:[id number] AGE/SX: 55/F ROOM: RE11/23/[address]: Dr. Mahesh Robert MD : 1965 BED: DIS: 11/23/2021 SPEC #: [id number] RECD: 11/23/21 15:26 STATUS: KANA ALEXYS #: [id number] IRMA: 11/23/21 00:[address]: Mahesh Robert DEPT: SURGICAL PATHOLOGY RECD BY: Alexsander Gutierrez Tissues: Right breast, NOS Procedures: Surgery Specimen Level IV HEADER OPERATION: Right breast biopsy PRE-OP DIAGNOSIS: Right breast mass TISSUE SUBMITTED: Right breast tissue MICROSCOPIC DIAGNOSIS Right breast, core biopsy: Fibrosis with associated minimal chronic inflammation and focal fat necrosis. No evidence of malignancy. AM:sheri 11/27/2021 MICROSCOPIC DESCRIPTION Slides are reviewed. GROSS DESCRIPTION Received in fixative is one container labeled with the patient's name and designated right breast. The specimen consists of multiple elongated fragments of christian-yellow fibroadipose tissue that in aggregate measure 2.5 x 0.5 x 0.1 cm. The entire specimen is submitted in one cassette. / SJ:sheri 11/26/2021 TC:5 CPT: 40477
== END | disposition home or self-care (01) ==
LOC: LABSPEC 15:30
PROVIDERS: Referring Provider Surgery; Visit Provider Surgery
DX: N64.1 Fat necrosis of breast (principal)
CPT/HCPCS: 88305

== ENCOUNTER 2021-12-10 15:00 | Emergency (ER) | payer MEDICAID, SELFPAY ==
[2021-12-10 15:01] VITALS: BP 158/102; PULSE 102; RESP 16; TEMP 36.3; O2SAT 96; BMI 29.2
--- NOTE | 2021-12-10 15:25 | EDS_ITS ---
HPI History of Present Illness Chief Complaint: Abscess Onset/Context/Timing Onset: Days (2) Context: Gradual Onset Timing: Continuous Location: mons pubis Current Severity: Moderate Associated Symptoms Associated Symptoms: none Narrative Narrative: No fever or systemic symptoms. No drainage so far. No procedures. No antibiotics. Prior similar symptoms: Yes Recent Illness/Hospitalization: No PFSH PFSH Medical History Asthma Bipolar 1 disorder Depression Diabetes History of diverticulitis Hx of intestinal obstruction MRSA (methicillin resistant staph aureus) culture positive PTSD (post-traumatic stress disorder) Home Medications amitriptyline 10 mg tablet 20 mg PO TID Check with primary doctor 07/15/21 [History Last Taken 1 Day Ago ~07/14/21] citalopram 40 mg tablet 60 mg PO DAILY depression 07/15/21 [History Last Taken 1 Day Ago ~07/14/21] haloperidol 5 mg tablet 5 mg PO QHS Check with primary doctor 07/15/21 [History Last Taken 07/14/21 22:00] hydroxyzine HCl 50 mg tablet 50 mg PO Q8 PRN anxiety 07/15/21 [History Last Taken 1 Day Ago ~07/14/21] metformin 500 mg tablet,extended release 24 hr 500 mg PO BID Check with primary doctor 07/15/21 [History Last Taken 1 Day Ago ~07/14/21] prazosin 1 mg capsule 1 mg PO QHS ptsd 07/15/21 [History Last Taken Unknown] trazodone 150 mg tablet 150 mg PO QHS anxiety 07/15/21 [History Last Taken 1 Day Ago ~07/14/21] albuterol sulfate 90 mcg/actuation aerosol inhaler 2 puff inhalation Q6H PRN shortness of breath or wheezing #8.5 grams 07/16/21 [Rx Last Taken Unknown] benztropine 1 mg tablet 1 mg PO BID Check with primary doctor 10/04/21 [History Last Taken Unknown] fluticasone propionate 45 mcg-salmeterol 21 mcg/actuation HFA inhaler (Advair HFA) 1 puff inhalation BID 10/04/21 [History Last Taken Unknown] acidophilus 25 million cell-pectin, citrus 100 mg tablet 1 tab PO TID 7 days #21 tabs 10/09/21 [Rx Last Taken Unknown] citalopram 40 mg tablet 40 mg PO DAILY 7 days #7 tabs 10/09/21 [Rx Last Taken Unknown] hydroxyzine pamoate 25 mg capsule 25 mg PO Q8 PRN anxiety 7 days 10/09/21 [Rx Last Taken Unknown] insulin glargine-yfgn 100 unit/mL (3 mL) subcutaneous pen 18 unit (0.18 mL) subcut DAILY 30 days #5.4 mL 10/09/21 [Rx Last Taken Unknown] levofloxacin 500 mg tablet 500 mg PO DAILY #7 tabs 10/09/21 [Rx Last Taken Unknown] pen needle, diabetic 31 gauge x 1/4 (Pen Needle) #50 ea 10/09/21 [Rx Last Taken Unknown] nystatin 100,000 unit/gram topical powder 1 applic topical BID PRN Redness under breasts #30 grams 10/30/21 [Rx Last Taken Unknown] clindamycin HCl 150 mg capsule 450 mg PO TID 5 days #45 caps 12/10/21 [Rx Last Taken Unknown] Allergy/AdvReac Type Severity Reaction Status Date / Time aminophylline Allergy Swelling Verified 12/10/21 15:03 amphetamine [From Adderall] Allergy Other Verified 12/10/21 15:03 dextroamphetamine Allergy Other Verified 12/10/21 15:03 [From Adderall] Iodinated Contrast Media [CT] Allergy Swelling Verified 12/10/21 15:03 iodine Allergy Swelling Verified 12/10/21 15:03 povidone-iodine Allergy Swelling Verified 12/10/21 15:03 [From Betadine] shellfish derived Allergy Swelling Verified 12/10/21 15:03 Sulfa (Sulfonamide Allergy Swelling Verified 12/10/21 15:03 Antibiotics) tetracycline AdvReac Rash Verified 12/10/21 15:03 Family History Father Diabetes Mother Diabetes Surgical History History of intestinal surgery History of lumpectomy of right breast History of right breast biopsy (~11/2021) Hx of appendectomy Hx of bilateral oophorectomy Hx of hysterectomy Hx of repair of right rotator cuff Social History household members: spouse Smoking Status: Never smoker alcohol intake: never substance use type: does not use ROS ROS ED Constitutional Constitutional ED: Denies fever(s) Eyes Eyes: Denies blurry vision ENT ENT ED: Denies ear pain Cardiovascular Cardiovascular: Denies chest pain Respiratory/Chest Respiratory/Chest: Denies dyspnea Gastrointestinal Gastrointestinal: Denies abdominal pain Genitourinary Genitourinary ED: Denies dysuria Musculoskeletal Musculoskeletal: Denies arthralgias Integumentary Reports abscess Neurologic Neurologic: Denies headache(s) Psychiatric Psychiatric: Denies anxiety Endocrine Endocrinology: Denies cold intolerance Hematologic/Lymphatic Hematologic/Lymphatic: Reports systems reviewed and no addt'l complaints, except as documented EXAM Physical Exam Const Vital Signs: 12/10/21 15:01 Temperature 97.4 F L Temperature Source Temporal Pulse Rate 102 H Respiratory Rate 16 Blood Pressure 158/102 H Blood Pressure Mean 120 Pulse Ox 96 Oxygen Delivery Method Room Air Positive well nourished and well developed General Appearance ED: well developed HEENT Negative for trauma Eyes EOMs intact bilaterally Resp normal respiratory effort Cardio regular rate Neuro oriented x3 Sensorium / Orientation: alert Psych mental status grossly normal Skin Skin Narrative: 2 cm area of induration and fluctuance over the central mons pubis with a central abrasion. No drainage or bleeding. This was chaperoned by [facility]. MDM MDM MDM Narrative Medical decision making narrative: Patient gave verbal consent for I&D. This was prepped with ChloraPrep. Anesthetized with Xylocaine with epinephrine, 4 cc. Anesthesia achieved. 1 cm x 1 cm X shaped incision was made over the area of maximum fluctuance. Scant amount of pus was expressed. The area does much softer to palpation. There is some underlying induration. I attempted to break up any loculations. Wound was left open. We will cover her with clindamycin as she has multiple medication allergies. Patient will return for any new or worsening issues. Otherwise follow-up with primary care. Disposition is discharged home. Impression #1 mons pubis abscess Impression #2 incision and drainage by emergency physician Discharge Plan Triage Chief Complaint: Abscess ED Provider: Rainer Sullivan Dx/Rx/DC Orders Instructions: ED Abscess Incision And Drainage Prescriptions: New clindamycin HCl 150 mg capsule 450 mg PO TID 5 Days Qty: 45 0RF No Action nystatin 100,000 unit/gram powder 1 applic topical BID PRN (Reason: Redness under breasts) Qty: 30 0RF haloperidol 5 mg tablet 5 mg PO QHS Label Comments: TAKE 1 TABLET BY MOUTH DAILY at night citalopram 40 mg tablet 60 mg PO DAILY Hold Instructions: Resume on 10/16/21. after you finish antibiotics Label Comments: take 1 and 1/2 tablets DAILY hydroxyzine HCl 50 mg tablet 50 mg PO Q8 PRN (Reason: anxiety) Hold Instructions: Resume on 10/16/21. after finishing your antibiotics Label Comments: TAKE 1 TABLET EVERY 8 HOURS NEEDED prazosin 1 mg capsule 1 mg PO QHS Label Comments: TAKE 1 CAPSULE BY MOUTH DAILY AT BEDTIME trazodone 150 mg tablet 150 mg PO QHS Label Comments: take 1 and 1/2 tablet DAILY AT BEDTIME metformin 500 mg tablet extended release 24 hr 500 mg PO BID amitriptyline 10 mg tablet 20 mg PO TID Label Comments: TAKE 2 TABLETS BY MOUTH THREE TIMES DAILY albuterol sulfate 90 mcg/actuation HFA aerosol inhaler 2 puff inhalation Q6H PRN (Reason: shortness of breath or wheezing) Qty: 8.5 0RF benztropine 1 mg tablet 1 mg PO BID Advair HFA 45-21 mcg/actuation HFA aerosol inhaler 1 puff INHALATION BID levofloxacin 500 mg tablet 500 mg PO DAILY Qty: 7 0RF insulin glargine-yfgn 100 unit/mL (3 mL) Insulin Pen 18 unit subcut DAILY 30 Days Qty: 5.4 0RF acidophilus-pectin, citrus 25 million cell -100 mg Tablet 1 tab PO TID 7 Days Qty: 21 0RF (DME) pen needle, diabetic [Pen Needle] 31 gauge x 1/4 needle See Rx Instructions .ROUTE .MEDSUPPLY Qty: 50 1RF Rx Instructions: for insulin administrations daily citalopram 40 mg Tablet 40 mg PO DAILY 7 Days Qty: 7 0RF hydroxyzine pamoate 25 mg Capsule 25 mg PO Q8 PRN (Reason: anxiety) 7 Days 0RF Primary Care Provider: [facility] Doctor,Out of Referrals: [facility] Doctor,Out of [Primary Care Provider] - Disposition Disposition: Home, Self Care
[2021-12-10] MEDS: Clindamycin HCl 150 MG Capsule 450 MG PO (15:39)
--- NOTE | 2021-12-10 15:44 | EX.ED.DYSGE1 ---
HPI History of Present Illness Chief Complaint: Abscess [facility] Medical History Asthma Bipolar 1 disorder Depression Diabetes History of diverticulitis Hx of intestinal obstruction MRSA (methicillin resistant staph aureus) culture positive PTSD (post-traumatic stress disorder) Home Medications amitriptyline 10 mg tablet 20 mg PO TID Check with primary doctor 07/15/21 [History Last Taken 1 Day Ago ~07/14/21] citalopram 40 mg tablet 60 mg PO DAILY depression 07/15/21 [History Last Taken 1 Day Ago ~07/14/21] haloperidol 5 mg tablet 5 mg PO QHS Check with primary doctor 07/15/21 [History Last Taken 07/14/21 22:00] hydroxyzine HCl 50 mg tablet 50 mg PO Q8 PRN anxiety 07/15/21 [History Last Taken 1 Day Ago ~07/14/21] metformin 500 mg tablet,extended release 24 hr 500 mg PO BID Check with primary doctor 07/15/21 [History Last Taken 1 Day Ago ~07/14/21] prazosin 1 mg capsule 1 mg PO QHS ptsd 07/15/21 [History Last Taken Unknown] trazodone 150 mg tablet 150 mg PO QHS anxiety 07/15/21 [History Last Taken 1 Day Ago ~07/14/21] albuterol sulfate 90 mcg/actuation aerosol inhaler 2 puff inhalation Q6H PRN shortness of breath or wheezing #8.5 grams 07/16/21 [Rx Last Taken Unknown] benztropine 1 mg tablet 1 mg PO BID Check with primary doctor 10/04/21 [History Last Taken Unknown] fluticasone propionate 45 mcg-salmeterol 21 mcg/actuation HFA inhaler (Advair HFA) 1 puff inhalation BID 10/04/21 [History Last Taken Unknown] acidophilus 25 million cell-pectin, citrus 100 mg tablet 1 tab PO TID 7 days #21 tabs 10/09/21 [Rx Last Taken Unknown] citalopram 40 mg tablet 40 mg PO DAILY 7 days #7 tabs 10/09/21 [Rx Last Taken Unknown] hydroxyzine pamoate 25 mg capsule 25 mg PO Q8 PRN anxiety 7 days 10/09/21 [Rx Last Taken Unknown] insulin glargine-yfgn 100 unit/mL (3 mL) subcutaneous pen 18 unit (0.18 mL) subcut DAILY 30 days #5.4 mL 10/09/21 [Rx Last Taken Unknown] levofloxacin 500 mg tablet 500 mg PO DAILY #7 tabs 10/09/21 [Rx Last Taken Unknown] pen needle, diabetic 31 gauge x 1/4 (Pen Needle) #50 ea 10/09/21 [Rx Last Taken Unknown] nystatin 100,000 unit/gram topical powder 1 applic topical BID PRN Redness under breasts #30 grams 10/30/21 [Rx Last Taken Unknown] clindamycin HCl 150 mg capsule 450 mg PO TID 5 days #45 caps 12/10/21 [Rx Last Taken Unknown] Allergy/AdvReac Type Severity Reaction Status Date / Time aminophylline Allergy Swelling Verified 12/10/21 15:03 amphetamine [From Adderall] Allergy Other Verified 12/10/21 15:03 dextroamphetamine Allergy Other Verified 12/10/21 15:03 [From Adderall] Iodinated Contrast Media [CT] Allergy Swelling Verified 12/10/21 15:03 iodine Allergy Swelling Verified 12/10/21 15:03 povidone-iodine Allergy Swelling Verified 12/10/21 15:03 [From Betadine] shellfish derived Allergy Swelling Verified 12/10/21 15:03 Sulfa (Sulfonamide Allergy Swelling Verified 12/10/21 15:03 Antibiotics) tetracycline AdvReac Rash Verified 12/10/21 15:03 Family History Father Diabetes Mother Diabetes Surgical History History of intestinal surgery History of lumpectomy of right breast History of right breast biopsy (~11/2021) Hx of appendectomy Hx of bilateral oophorectomy Hx of hysterectomy Hx of repair of right rotator cuff Social History household members: spouse Smoking Status: Never smoker alcohol intake: never substance use type: does not use EXAM Physical Exam Const Vital Signs: 12/10/21 15:01 Temperature 97.4 F L Temperature Source Temporal Pulse Rate 102 H Respiratory Rate 16 Blood Pressure 158/102 H Blood Pressure Mean 120 Pulse Ox 96 Oxygen Delivery Method Room Air Discharge Plan Triage Chief Complaint: Abscess ED Provider: Rainer Sullivan Dx/Rx/DC Orders Instructions: ED Abscess Incision And Drainage Prescriptions: New clindamycin HCl 150 mg capsule 450 mg PO TID 5 Days Qty: 45 0RF No Action nystatin 100,000 unit/gram powder 1 applic topical BID PRN (Reason: Redness under breasts) Qty: 30 0RF haloperidol 5 mg tablet 5 mg PO QHS Label Comments: TAKE 1 TABLET BY MOUTH DAILY at night citalopram 40 mg tablet 60 mg PO DAILY Hold Instructions: Resume on 10/16/21. after you finish antibiotics Label Comments: take 1 and 1/2 tablets DAILY hydroxyzine HCl 50 mg tablet 50 mg PO Q8 PRN (Reason: anxiety) Hold Instructions: Resume on 10/16/21. after finishing your antibiotics Label Comments: TAKE 1 TABLET EVERY 8 HOURS NEEDED prazosin 1 mg capsule 1 mg PO QHS Label Comments: TAKE 1 CAPSULE BY MOUTH DAILY AT BEDTIME trazodone 150 mg tablet 150 mg PO QHS Label Comments: take 1 and 1/2 tablet DAILY AT BEDTIME metformin 500 mg tablet extended release 24 hr 500 mg PO BID amitriptyline 10 mg tablet 20 mg PO TID Label Comments: TAKE 2 TABLETS BY MOUTH THREE TIMES DAILY albuterol sulfate 90 mcg/actuation HFA aerosol inhaler 2 puff inhalation Q6H PRN (Reason: shortness of breath or wheezing) Qty: 8.5 0RF benztropine 1 mg tablet 1 mg PO BID Advair HFA 45-21 mcg/actuation HFA aerosol inhaler 1 puff INHALATION BID levofloxacin 500 mg tablet 500 mg PO DAILY Qty: 7 0RF insulin glargine-yfgn 100 unit/mL (3 mL) Insulin Pen 18 unit subcut DAILY 30 Days Qty: 5.4 0RF acidophilus-pectin, citrus 25 million cell -100 mg Tablet 1 tab PO TID 7 Days Qty: 21 0RF (DME) pen needle, diabetic [Pen Needle] 31 gauge x 1/4 needle See Rx Instructions .ROUTE .MEDSUPPLY Qty: 50 1RF Rx Instructions: for insulin administrations daily citalopram 40 mg Tablet 40 mg PO DAILY 7 Days Qty: 7 0RF hydroxyzine pamoate 25 mg Capsule 25 mg PO Q8 PRN (Reason: anxiety) 7 Days 0RF Primary Care Provider: [facility] Doctor,Out of Referrals: [facility] Doctor,Out of [Primary Care Provider] - Disposition Disposition: Home, Self Care
[2021-12-10 15:45] VITALS: RESP 18
== END 2021-12-10 15:45 | disposition home or self-care (01) ==
PROVIDERS: Emergency Provider Emergency Medicine; Visit Provider Emergency Medicine
DX: L02.215 Cutaneous abscess of perineum (principal); F31.9 Bipolar disorder, unspecified; E11.9 Type 2 diabetes mellitus without complications; Z79.4 Long term (current) use of insulin; Z86.14 Personal history of Methicillin resistant Staphylococcus aureus infection
CPT/HCPCS: 10060; 99283; A4216

== ENCOUNTER 2022-02-04 08:00 | Emergency (ER) | payer MEDICAID, SELFPAY ==
[2022-02-04 08:01] VITALS: BP 200/163; PULSE 103; RESP 26; TEMP 36.7; O2SAT 99; BMI 28.0
[2022-02-04 08:16] VITALS: BP 151/86; PULSE 97; RESP 26; TEMP 36.7; O2SAT 98
--- NOTE | 2022-02-04 08:43 | EKG12_ITS ---
Test Reason : CP Blood Pressure : / mmHG Vent. Rate : 096 BPM Atrial Rate : 096 BPM P-R Int : 134 ms QRS Dur : 086 ms QT Int : 370 ms P-R-T Axes : -01 -28 050 degrees QTc Int : 467 ms Normal sinus rhythm Nonspecific ST abnormality Abnormal ECG Confirmed by DANY BURNETT, AMBROSIO ([id number]), online editor LIAM MCCAIN ([id number]) on 02/06/2022 10:49:01 AM Referred By: MARY Confirmed By:AMBROSIO SAENZ MD
--- NOTE | 2022-02-04 08:43 | RAD_ITS ---
STUDY: X-RAY CHEST REASON FOR EXAM: Female, 56 years old. chest pain TECHNIQUE: Single AP portable view of the chest. COMPARISON: 08/19/2021 FINDINGS: Poor inspiration with some bibasilar atelectasis. There is no demonstrated pleural abnormality. Normal size heart. Normal mediastinum and kirstin. Normal visualized pulmonary arteries. Normal visualized aortic arch and descending thoracic aorta. Normal visualized thoracic spine. Normal visualized ribs, clavicles, and shoulders. There is no demonstrated abnormality of the visualized soft tissue structures of the upper abdomen. RAD/Chest 1 View (Portable) IMPRESSION: Poor inspiration with some bibasilar atelectasis. Electronically Signed: Cruz Parekh MD at 10:04 EDT ,
[2022-02-04] MEDS: 0.9% Normal Saline 1,000 ML 999 ML IV (08:58)
[2022-02-04] MEDS: LORazepam 2 MG/ML Syringe IV (08:58)
[2022-02-04 09:08] LABS: Absolute Lymphocyte Count 1.38 X10^3/uL (0.83-4.51); Absolute Neutrophil Count 5.4 X10^3/uL (2.0-7.7); Basophil# 0.05 X10^3/uL; Basophil% 0.6 % (0-1); Eosinophils% 9.6 % (0-5); Hematocrit 35.7 % (37-47); Hemoglobin 12.1 g/dL (12.0-15.0); Lymphocyte # 1.38 X10^3/ul (0.83-4.51); Lymphocyte % 16.6 % (19-41); Mean Corp Hgb Conc 33.9 g/dL (32-36); Mean Corpuscular Hgb 28.9 pg (27.0-32.0); Mean Corpuscular Volume 85.2 fL (81-99); Mean Platelet Vol. 9.1 fl (6.2-12.0); Monocyte# 0.61 X10^3/uL; Monocyte% 7.3 % (0-10); NRBC Flagged by Analyzer 0 % (0-5); Neutrophil # 5.41 X10^3/uL (2.7-7.7); Neutrophil % 65.1 % (47-70); Platelet Count 222 K/mm3 (150-450); RBC Distribution Width CV 12.7 % (11.6-14.6); RBC Distribution Width SD 38.6 fl (35.1-43.9); Red Blood Count 4.19 M/mm3 (4.2-5.4); White Blood Count 8.3 K/mm3 (4.4-11.0)
[2022-02-04 09:22] LABS: Anion Gap 8 (5-15); BUN 11 mg/dL (7-18); BUN/Creat Ratio 9.5 RATIO (10-20); Calcium,Total 9.3 mg/dL (8.5-10.1); Chloride 111 mmol/L (98-107); Creatinine, Serum 1.16 mg/dL (0.55-1.02); EST Glomerular Filtration Rate 51 mL/min (>60); Est Glom Filt Rate - Afr Amer 62 mL/min (>60); Estimated Creatinine Clearance 41.81 ml/min; Glucose 80 mg/dL (74-106); Potassium 3.4 mmol/L (3.5-5.1); Sodium Level 144 mmol/L (136-145); Troponin-I HS (w/2H Reflex) 6 pg/mL (3.0-54.0)
--- NOTE | 2022-02-04 09:45 | EDS_ITS ---
HPI History of Present Illness Chief Complaint: Anxiety Narrative Narrative: 56-year-old female presenting with anxiety. She states she woke up with anxiety. She has a history of anxiety and is on citalopram and hydroxyzine as needed. She states she is anxious about the breast abscess that she has on her right breast as well as an axillary abscess. She is very anxious about having a surgical procedure on these areas. She has been seeing Dr. Robert as an outpatient for months. She has had a mammogram and biopsies. She has had I&D of the right axillary access previously. She states that there is a small area that is draining this morning. She denies fever, chills, nausea, vomiting. She feels a little bit short of breath with her anxiety. She has been anxious about this for the last 2 days when she noticed the right axillary abscess and breast abscess were slightly worsened. She has not called Dr. Robert for an appointment. [facility] Medical History Asthma Bipolar 1 disorder Depression Diabetes History of diverticulitis Hx of intestinal obstruction MRSA (methicillin resistant staph aureus) culture positive PTSD (post-traumatic stress disorder) Home Medications amitriptyline 10 mg tablet 20 mg PO TID Check with primary doctor 07/15/21 [History Last Taken 1 Day Ago ~07/14/21] citalopram 40 mg tablet 60 mg PO DAILY depression 07/15/21 [History Last Taken 1 Day Ago ~07/14/21] hydroxyzine HCl 50 mg tablet 50 mg PO BID PRN Anxiety 07/15/21 [History Last Taken 1 Day Ago ~07/14/21] metformin 500 mg tablet,extended release 24 hr 500 mg PO BID Check with primary doctor 07/15/21 [History Last Taken 1 Day Ago ~07/14/21] prazosin 1 mg capsule 1 mg PO QHS ptsd 07/15/21 [History Last Taken Unknown] trazodone 150 mg tablet 150 mg PO QHS anxiety 07/15/21 [History Last Taken 1 Day Ago ~07/14/21] albuterol sulfate 90 mcg/actuation aerosol inhaler 2 puff inhalation Q6H PRN shortness of breath or wheezing #8.5 grams 07/16/21 [Rx Last Taken Unknown] benztropine 1 mg tablet 1 mg PO BID Check with primary doctor 10/04/21 [History Last Taken Unknown] fluticasone propionate 45 mcg-salmeterol 21 mcg/actuation HFA inhaler (Advair HFA) 1 puff inhalation BID 10/04/21 [History Last Taken Unknown] acidophilus 25 million cell-pectin, citrus 100 mg tablet 1 tab PO TID 7 days #21 tabs 10/09/21 [Rx Last Taken Unknown] clindamycin HCl 150 mg capsule 450 mg PO TID 10 days #90 caps 02/04/22 [Rx Last Taken Unknown] Allergy/AdvReac Type Severity Reaction Status Date / Time aminophylline Allergy Swelling Verified 02/04/22 08:03 amphetamine [From Adderall] Allergy Other Verified 02/04/22 08:03 dextroamphetamine Allergy Other Verified 02/04/22 08:03 [From Adderall] Iodinated Contrast Media [CT] Allergy Swelling Verified 02/04/22 08:03 iodine Allergy Swelling Verified 02/04/22 08:03 povidone-iodine Allergy Swelling Verified 02/04/22 08:03 [From Betadine] shellfish derived Allergy Swelling Verified 02/04/22 08:03 Sulfa (Sulfonamide Allergy Swelling Verified 02/04/22 08:03 Antibiotics) tetracycline AdvReac Rash Verified 02/04/22 08:03 Family History Father Diabetes Mother Diabetes Surgical History History of intestinal surgery History of lumpectomy of right breast History of right breast biopsy (~11/2021) Hx of appendectomy Hx of bilateral oophorectomy Hx of hysterectomy Hx of repair of right rotator cuff Social History household members: spouse Smoking Status: Never smoker alcohol intake: never substance use type: does not use ROS ROS ED Constitutional Constitutional ED: Denies chills or fever(s) Eyes Eyes: Denies change in vision or diplopia ENT ENT ED: Denies rhinorrhea Cardiovascular Cardiovascular: Denies chest pain or palpitations Respiratory/Chest Respiratory/Chest: Reports dyspnea; Denies cough Gastrointestinal Gastrointestinal: Denies abdominal pain or constipation Genitourinary Genitourinary ED: Denies dysuria or hematuria Musculoskeletal Musculoskeletal: Denies arthralgias or back pain Integumentary Reports abscess Neurologic Neurologic: Denies headache(s) Psychiatric Psychiatric: Reports anxiety; Denies depression, suicidal ideation or suicidal thoughts Endocrine Endocrinology: Denies cold intolerance EXAM Physical Exam Const Vital Signs: 02/04/22 08:01 02/04/22 08:16 02/04/22 09:02 Temperature 98.1 F 98.1 F Temperature Source Temporal Temporal Pulse Rate 103 H 97 Respiratory Rate 26 H 26 H Blood Pressure 200/163 H 151/86 H Blood Pressure Mean 175 107 Pulse Ox 99 98 Oxygen Delivery Method Room Air Room Air Room Air 02/04/22 08:56 Temperature Temperature Source Pulse Rate Respiratory Rate Blood Pressure Blood Pressure Mean Pulse Ox Oxygen Delivery Method Room Air Positive well nourished Constitutional Narrative: Appears anxious General Appearance ED: NAD DAYAN Reports dry mucous membranes Negative for trauma Mouth ED: Yes dry mucous membranes Mouth: dry mucous membranes Eyes General Eye ED: Negative for pale conjunctiva or scleral icterus Chest Wall Chest Narrative: There is a 3 cm area of very faint erythema with scaling skin overlying. There are some slight fluctuance here but its not tense. There is no active drainage. No palpable lymph nodes surrounding this or in the right axilla. There is a dime sized area of mild erythema here in the axillary region which is draining a very small amount. This appears to be purulent. Resp Resp Narrative: Tachypneic. Lungs clear to auscultation. Auscultation: Negative for rales, rhonchi or wheezes Cardio regular rhythm Rate: tachycardic Extremity normal to inspection Neuro oriented x3 and CN's II-XII intact bilaterally Sensorium / Orientation: alert Psych Mood & Affect: anxious Skin Skin Narrative: As described above MDM MDM MDM Narrative Medical decision making narrative: Patient was treated with a liter of IV fluids, 2 mg of Ativan IV. I did obtain blood work and her CBC shows no leukocytosis and her hemoglobin hematocrit are stable. Platelets are normal. Creatinine is slightly elevated today at 1.16 but again she was given IV fluids. She has a mild hypokalemia with a potassium of 3.4. I did obtain an EKG which on my interpretation shows a normal sinus rhythm with a ventricular of 96 bpm without sign of ischemic change or dysrhythmia. High-sensitivity troponin is 6. Chest x-ray on my interpretation shows no acute cardiopulmonary process and the radiologist does agree. After reviewing the medical record I spoke with Dr. Caruso. She recommended putting the patient on clindamycin due to her sulfa allergy and her allergy to tetracycline. Patient does have a history of MRSA. Patient is to make an appointment with Dr. Robert to to schedule her procedures. Patient knowledge understanding. She feels better after Ativan. She is discharged in stable condition. She will use as needed Vistaril as needed. Impression: 1. Right breast abscess 2. Right axillary abscess 3. Anxiety 4. Elevated creatinine Lab Data Attestation: I reviewed the patient's lab results. Labs: Laboratory Results - last 24 hr 02/04/22 02/04/22 08:56 08:56 WBC 8.3 RBC 4.19 L Hgb 12.1 Hct 35.7 L MCV 85.2 MCH 28.9 MCHC 33.9 RDW Std Deviation 38.6 RDW Coeff of Elsi 12.7 Plt Count 222 MPV 9.1 Immature Gran % (Auto) 0.800 Neut % (Auto) 65.1 Lymph % (Auto) 16.6 L Wright % (Auto) 7.3 Eos % (Auto) 9.6 H Baso % (Auto) 0.6 Absolute Neuts (auto) 5.4 Absolute Lymphs (auto) 1.38 Nucleated RBC % 0 Sodium 144 Potassium 3.4 L Chloride 111 H Carbon Dioxide 25.0 Anion Gap 8 BUN 11 Creatinine 1.16 H Estim Creat Clear Calc 41.81 Est GFR (MDRD) Af Amer 62 Est GFR (MDRD) Non-Af 51 L BUN/Creatinine Ratio 9.5 L Glucose 80 Calcium 9.3 Troponin I High Sens 6 Discharge Plan Triage Chief Complaint: Anxiety ED Provider: Aniceto Tillman Dx/Rx/DC Orders Instructions: ED Abscess Antibiotic Treatment Only, ED Anxiety Reaction Prescriptions: New clindamycin HCl 150 mg capsule 450 mg PO TID 10 Days Qty: 90 0RF No Action citalopram 40 mg tablet 60 mg PO DAILY Hold Instructions: Resume on 10/16/21. after you finish antibiotics Label Comments: take 1 and 1/2 tablets DAILY hydroxyzine HCl 50 mg tablet 50 mg PO BID PRN (Reason: Anxiety) Hold Instructions: Resume on 10/16/21. after finishing your antibiotics Label Comments: TAKE 1 TABLET EVERY 8 HOURS NEEDED prazosin 1 mg capsule 1 mg PO QHS Label Comments: TAKE 1 CAPSULE BY MOUTH DAILY AT BEDTIME trazodone 150 mg tablet 150 mg PO QHS Label Comments: take 1 and 1/2 tablet DAILY AT BEDTIME metformin 500 mg tablet extended release 24 hr 500 mg PO BID amitriptyline 10 mg tablet 20 mg PO TID Label Comments: TAKE 2 TABLETS BY MOUTH THREE TIMES DAILY albuterol sulfate 90 mcg/actuation HFA aerosol inhaler 2 puff inhalation Q6H PRN (Reason: shortness of breath or wheezing) Qty: 8.5 0RF benztropine 1 mg tablet 1 mg PO BID Advair HFA 45-21 mcg/actuation HFA aerosol inhaler 1 puff INHALATION BID acidophilus-pectin, citrus 25 million cell -100 mg Tablet 1 tab PO TID 7 Days Qty: 21 0RF Primary Care Provider: Care Physician,No Primary Referrals: Care Physician,No Primary [Primary Care Provider] - Disposition Disposition: Home, Self Care
[2022-02-04 10:16] VITALS: PULSE 88; RESP 20; O2SAT 98
[2022-02-04 11:02] LABS: Reflex Troponin-HS? (from REC) Y
== END 2022-02-04 10:20 | disposition home or self-care (01) ==
PROVIDERS: Emergency Provider Student in an Organized Health Care Education/Training Program; Visit Provider Student in an Organized Health Care Education/Training Program
DX: N61.1 Abscess of the breast and nipple (principal); F31.9 Bipolar disorder, unspecified; E11.9 Type 2 diabetes mellitus without complications; L02.411 Cutaneous abscess of right axilla; E87.6 Hypokalemia; R79.89 Other specified abnormal findings of blood chemistry; Z79.84 Long term (current) use of oral hypoglycemic drugs; Z79.899 Other long term (current) drug therapy; F41.9 Anxiety disorder, unspecified; J45.909 Unspecified asthma, uncomplicated; Z86.14 Personal history of Methicillin resistant Staphylococcus aureus infection
CPT/HCPCS: 71045; 80048; 84484; 85025; 93005; 96361; 96374; 99285; J7030; A4216

== ENCOUNTER 2022-02-21 10:29 | Emergency (ER) | payer MEDICAID, SELFPAY ==
[2022-02-21 10:30] VITALS: BP 137/85; PULSE 106; RESP 22; TEMP 35.6; O2SAT 95; BMI 28.0
--- NOTE | 2022-02-21 11:15 | RAD_ITS ---
STUDY: X-RAY CHEST REASON FOR EXAM: Female, 56 years old. Sob TECHNIQUE: Single AP portable view of the chest. COMPARISON: Comparison is made with prior studies of 04/06/2022. FINDINGS: Scattered calcified granulomas. There is no demonstrated pleural abnormality. Normal size heart. Normal mediastinum and kirstin. Normal visualized pulmonary arteries. There is atherosclerotic calcification of the aortic arch with tortuosity. Normal visualized thoracic spine. There is degenerative osteoarthritis of the bilateral shoulders. There is no demonstrated abnormality of the visualized soft tissue structures of the upper abdomen. RAD/Chest 1 View IMPRESSION: No acute abnormality is seen. Electronically Signed: Henrry Barroso MD at 11:58 EDT ,
--- NOTE | 2022-02-21 11:36 | EDS_ITS ---
HPI History of Present Illness Chief Complaint: Asthma Detail of Chief Complaint: Shortness of breath and anxiety Informant: patient Narrative Narrative: Patient presents the emergency department with complaint of shortness of breath for the last 2 days. Patient's been using her inhaler and DuoNeb nebulizer at home. Patient did a nebulizer treatment 20 minutes prior to coming in and did not get any relief. Patient states she is having an asthma attack and also think she is anxious. Patient denies fever. She does have a slight cough. Cough is nonproductive. She does have some drainage from her nose. Patient has had the COVID-vaccine and booster. Patient denies chest pain. She denies recent travel or surgery. [facility] Medical History Asthma Bipolar 1 disorder Depression Diabetes History of diverticulitis Hx of intestinal obstruction MRSA (methicillin resistant staph aureus) culture positive PTSD (post-traumatic stress disorder) Home Medications amitriptyline 10 mg tablet 20 mg PO TID Check with primary doctor 07/15/21 [History Last Taken 1 Day Ago ~07/14/21] citalopram 40 mg tablet 60 mg PO DAILY depression 07/15/21 [History Last Taken 1 Day Ago ~07/14/21] hydroxyzine HCl 50 mg tablet 50 mg PO BID PRN Anxiety 07/15/21 [History Last Taken 1 Day Ago ~07/14/21] metformin 500 mg tablet,extended release 24 hr 500 mg PO BID Check with primary doctor 07/15/21 [History Last Taken 1 Day Ago ~07/14/21] prazosin 1 mg capsule 1 mg PO QHS ptsd 07/15/21 [History Last Taken Unknown] trazodone 150 mg tablet 150 mg PO QHS anxiety 07/15/21 [History Last Taken 1 Day Ago ~07/14/21] albuterol sulfate 90 mcg/actuation aerosol inhaler 2 puff inhalation Q6H PRN shortness of breath or wheezing #8.5 grams 07/16/21 [Rx Last Taken Unknown] benztropine 1 mg tablet 1 mg PO BID Check with primary doctor 10/04/21 [History Last Taken Unknown] fluticasone propionate 45 mcg-salmeterol 21 mcg/actuation HFA inhaler (Advair HFA) 1 puff inhalation BID 10/04/21 [History Last Taken Unknown] acidophilus 25 million cell-pectin, citrus 100 mg tablet 1 tab PO TID 7 days #21 tabs 10/09/21 [Rx Last Taken Unknown] clindamycin HCl 150 mg capsule 450 mg PO TID 10 days #90 caps 02/04/22 [Rx Last Taken Unknown] azithromycin 250 mg tablet 250 mg PO DAILY #4 TABLETS 02/21/22 [Rx Last Taken Unknown] prednisone 20 mg tablet 20 mg PO BID #10 tabs 02/21/22 [Rx Last Taken Unknown] Allergy/AdvReac Type Severity Reaction Status Date / Time aminophylline Allergy Swelling Verified 02/21/22 10:30 amphetamine [From Adderall] Allergy Other Verified 02/21/22 10:30 dextroamphetamine Allergy Other Verified 02/21/22 10:30 [From Adderall] Iodinated Contrast Media [CT] Allergy Swelling Verified 02/21/22 10:30 iodine Allergy Swelling Verified 02/21/22 10:30 povidone-iodine Allergy Swelling Verified 02/21/22 10:30 [From Betadine] shellfish derived Allergy Swelling Verified 02/21/22 10:30 Sulfa (Sulfonamide Allergy Swelling Verified 02/21/22 10:30 Antibiotics) tetracycline AdvReac Rash Verified 02/21/22 10:30 Family History Father Diabetes Mother Diabetes Surgical History History of intestinal surgery History of lumpectomy of right breast History of right breast biopsy (~11/2021) Hx of appendectomy Hx of bilateral oophorectomy Hx of hysterectomy Hx of repair of right rotator cuff Social History household members: spouse Smoking Status: Never smoker alcohol intake: never substance use type: does not use ROS ROS ED Review of Systems ROS Unobtainable: other Constitutional Constitutional ED: Reports lethargy; Denies chills, fever(s), sweats or weight loss Eyes Eyes: Denies blurry vision, change in vision or diplopia ENT ENT ED: Denies rhinorrhea or sore throat Cardiovascular Cardiovascular: Denies chest pain, orthopnea or racing heartbeat Respiratory/Chest Respiratory/Chest: Reports cough, dyspnea and dyspnea on exertion; Denies orthopnea or sputum Gastrointestinal Gastrointestinal: Denies abdominal pain, diarrhea, nausea or vomiting Genitourinary Genitourinary ED: Denies dysuria, hematuria or urinary frequency Musculoskeletal Musculoskeletal: Denies arthralgias, back pain, myalgias or neck pain Integumentary Denies abscess, Abrasions or rash Neurologic Neurologic: Denies headache(s) or weakness Psychiatric Psychiatric: Reports anxiety; Denies depression or suicidal thoughts Endocrine Endocrinology: Denies polydipsia, polyphagia or polyuria Hematologic/Lymphatic Hematologic/Lymphatic: Denies easy bleeding, easy bruising or lymphadenopathy Allergic/Immunologic Allergic/Immunologic ED: Denies mouth swelling, tongue swelling or urticaria EXAM Physical Exam Const Vital Signs: 02/21/22 10:30 02/21/22 11:09 02/21/22 12:04 Temperature 96.1 F L Temperature Source Temporal Pulse Rate 106 H 93 Respiratory Rate 22 H 22 H Respiratory Effort Short of Breath Respiratory Depth Normal Respiratory Pattern Normal Blood Pressure 137/85 H Blood Pressure Mean 102 Pulse Ox 95 Oxygen Delivery Method Room Air 02/21/22 12:04 Temperature Temperature Source Pulse Rate Respiratory Rate Respiratory Effort Respiratory Depth Respiratory Pattern Blood Pressure Blood Pressure Mean Pulse Ox 96 Oxygen Delivery Method Room Air Positive well nourished and well developed General Appearance ED: well developed and NAD HEENT Reports TM's clear and moist mucous membranes normocephalic and atraumatic; Negative for trauma or tenderness Tympanic Membrane ED: Yes TM's clear Eyes PERRL and EOMs intact bilaterally General Eye ED: Negative for pale conjunctiva or scleral icterus Neck no lymphadenopathy, supple and no JVD General: Negative for tenderness Chest Wall inspection of chest normal and palpation of chest normal Chest: Negative for tenderness Resp Resp Narrative: Mild tachypnea with some mild conversational dyspnea. Effort and Inspection: Negative for respiratory distress or pain with movement Auscultation: wheezes; Negative for rhonchi or diminished lung sounds Cardio regular rate, regular rhythm, S1 normal heart sound, S2 normal heart sound and no murmurs Peripheral Pulses: pulses 2+ throughout GI normal to inspection, nondistended, normoactive bowel sounds, soft to palpation, non-tender, non-distended and no masses Back/Spine no CVA tenderness and no thoracic nor lumbar tenderness Extremity normal to inspection General Extremety ED: Negative for edema General Extremity: Negative for edema Neuro oriented x3, CN's II-XII intact bilaterally, no sensory deficits noted and gait normal Sensorium / Orientation: awake, alert, oriented to person, oriented to place and oriented to time Motor Exam: strength 5/5 throughout and strength abnormal Psych mental status grossly normal Skin no rashes or lesions noted and no wounds MDM MDM MDM Narrative Medical decision making narrative: IV line established on arrival. Patient given DuoNeb aerosol and started on Solu-Medrol 125 mg IV. Lab work-up was unremarkable. Chest x-ray unremarkable. EKG unremarkable. At this point and she was feeling improved. She is not hypoxic. I suspect an asthmatic bronchitis. I did start her on Zithromax p.o. and will treat with prednisone. Patient to follow-up with primary care physician within next 3 to 5 days. Patient advised to return if increasing shor tness of breath or condition should worsen anyway. Lab Data Attestation: I reviewed the patient's lab results. Labs: Laboratory Results - last 24 hr 02/21/22 02/21/22 11:55 11:55 WBC 6.5 RBC 4.62 Hgb 12.8 Hct 39.6 MCV 85.7 MCH 27.7 MCHC 32.3 RDW Std Deviation 40.2 RDW Coeff of Elsi 13.0 Plt Count 281 MPV 8.7 Immature Gran % (Auto) 0.300 Neut % (Auto) 57.5 Lymph % (Auto) 18.9 L Whiteside % (Auto) 7.5 Eos % (Auto) 15.0 H Baso % (Auto) 0.8 Absolute Neuts (auto) 3.8 Absolute Lymphs (auto) 1.23 Nucleated RBC % 0 Sodium 142 Potassium 4.0 Chloride 107 Carbon Dioxide 28.0 Anion Gap 7 BUN 11 Creatinine 0.94 Estim Creat Clear Calc 51.60 Est GFR (MDRD) Af Amer 79 Est GFR (MDRD) Non-Af 65 BUN/Creatinine Ratio 11.8 Glucose 92 Calcium 9.1 Radiography Diagnostic Testing: Clinical Impression(s) from Imaging Studies Chest X-Ray 02/21/22 11:15 IMPRESSION: No acute abnormality is seen. Electronically Signed: Henrry Barroso MD at 11:58 EDT , EKG Initial EKG: Attestation: I personally reviewed and interpreted this EKG as follows: Comments: Sinus rhythm with a ventricular rate of 91 bpm with no acute ST segment changes Discharge Plan Triage Chief Complaint: Asthma Other Complaint: Anxiety ED Provider: Gilda Drake Dx/Rx/DC Orders Clinical Impression: Asthmatic bronchitis Instructions: ED Bronchitis with Wheezing (Adult) Prescriptions: New azithromycin [azithromycin] 250 mg tablet 250 mg PO DAILY Qty: 4 0RF prednisone 20 mg tablet 20 mg PO BID Qty: 10 0RF No Action citalopram 40 mg tablet 60 mg PO DAILY Hold Instructions: Resume on 10/16/21. after you finish antibiotics Label Comments: take 1 and 1/2 tablets DAILY hydroxyzine HCl 50 mg tablet 50 mg PO BID PRN (Reason: Anxiety) Hold Instructions: Resume on 10/16/21. after finishing your antibiotics Label Comments: TAKE 1 TABLET EVERY 8 HOURS NEEDED prazosin 1 mg capsule 1 mg PO QHS Label Comments: TAKE 1 CAPSULE BY MOUTH DAILY AT BEDTIME trazodone 150 mg tablet 150 mg PO QHS Label Comments: take 1 and 1/2 tablet DAILY AT BEDTIME metformin 500 mg tablet extended release 24 hr 500 mg PO BID amitriptyline 10 mg tablet 20 mg PO TID Label Comments: TAKE 2 TABLETS BY MOUTH THREE TIMES DAILY albuterol sulfate 90 mcg/actuation HFA aerosol inhaler 2 puff inhalation Q6H PRN (Reason: shortness of breath or wheezing) Qty: 8.5 0RF benztropine 1 mg tablet 1 mg PO BID Advair HFA 45-21 mcg/actuation HFA aerosol inhaler 1 puff INHALATION BID acidophilus-pectin, citrus 25 million cell -100 mg Tablet 1 tab PO TID 7 Days Qty: 21 0RF clindamycin HCl 150 mg capsule 450 mg PO TID 10 Days Qty: 90 0RF Primary Care Provider: Care Physician,No Primary Referrals: Care Physician,No Primary [Primary Care Provider] - Activity Restrictions/Additional Instructions: See your family doctor in 3 to 4 days. Return to the ER if increasing shortness of breath or condition should worsen anyway. Disposition Disposition: Home, Self Care
[2022-02-21] MEDS: Ipratropium/Albuterol Sulfate 3 ML AMPUL.NEB INHALATION (11:55)
[2022-02-21] MEDS: MethylPREDNISolone 125 MG/2 ML Vial IV (12:00)
[2022-02-21] MEDS: LORazepam 2 MG/ML Syringe 1 MG IV (12:00)
[2022-02-21 12:04] VITALS: PULSE 93; RESP 22; O2SAT 96
[2022-02-21 12:05] LABS: Absolute Lymphocyte Count 1.23 X10^3/uL (0.83-4.51); Absolute Neutrophil Count 3.8 X10^3/uL (2.0-7.7); Basophil# 0.05 X10^3/uL; Basophil% 0.8 % (0-1); Eosinophil# 0.98 X10^3/uL; Hematocrit 39.6 % (37-47); Hemoglobin 12.8 g/dL (12.0-15.0); Lymphocyte # 1.23 X10^3/ul (0.83-4.51); Lymphocyte % 18.9 % (19-41); Mean Corp Hgb Conc 32.3 g/dL (32-36); Mean Corpuscular Hgb 27.7 pg (27.0-32.0); Mean Corpuscular Volume 85.7 fL (81-99); Mean Platelet Vol. 8.7 fl (6.2-12.0); Monocyte# 0.49 X10^3/uL; Monocyte% 7.5 % (0-10); NRBC Flagged by Analyzer 0 % (0-5); Neutrophil # 3.75 X10^3/uL (2.7-7.7); Neutrophil % 57.5 % (47-70); Platelet Count 281 K/mm3 (150-450); RBC Distribution Width SD 40.2 fl (35.1-43.9); Red Blood Count 4.62 M/mm3 (4.2-5.4); White Blood Count 6.5 K/mm3 (4.4-11.0)
[2022-02-21 12:22] LABS: Anion Gap 7 (5-15); BUN 11 mg/dL (7-18); BUN/Creat Ratio 11.8 RATIO (10-20); Calcium,Total 9.1 mg/dL (8.5-10.1); Chloride 107 mmol/L (98-107); Creatinine, Serum 0.94 mg/dL (0.55-1.02); EST Glomerular Filtration Rate 65 mL/min (>60); Est Glom Filt Rate - Afr Amer 79 mL/min (>60); Glucose 92 mg/dL (74-106); Sodium Level 142 mmol/L (136-145)
[2022-02-21 13:06] VITALS: PULSE 93; RESP 14; TEMP 37.2; O2SAT 95
[2022-02-21] MEDS: Azithromycin 250 MG Tablet 500 MG PO (13:07)
== END 2022-02-21 13:10 | disposition home or self-care (01) ==
PROVIDERS: Emergency Provider Emergency Medicine; Visit Provider Emergency Medicine
DX: J45.909 Unspecified asthma, uncomplicated (principal); F31.9 Bipolar disorder, unspecified; E11.9 Type 2 diabetes mellitus without complications; F41.9 Anxiety disorder, unspecified; Z79.84 Long term (current) use of oral hypoglycemic drugs; Z79.899 Other long term (current) drug therapy
CPT/HCPCS: 71045; 80048; 85025; 87811; 93005; 94640; 96374; 96375; 99285; A4216

== ENCOUNTER 2022-03-06 15:39 | Observation (INO) | payer MEDICAID, SELFPAY ==
[2022-03-06 15:40] VITALS: BP 128/87; PULSE 102; RESP 36; TEMP 36.8; O2SAT 95; BMI 29.6
--- NOTE | 2022-03-06 16:16 | EKG12_ITS ---
Test Reason : SOB Blood Pressure : / mmHG Vent. Rate : 097 BPM Atrial Rate : 097 BPM P-R Int : 140 ms QRS Dur : 086 ms QT Int : 372 ms P-R-T Axes : 028 -33 059 degrees QTc Int : 472 ms Normal sinus rhythm Left axis deviation Abnormal ECG Confirmed by DANY BURNETT, AMBROSIO ([id number]), brands editor LIAM MCCAIN ([id number]) on 03/11/2022 9:35:16 AM Referred By: DEMARCUS Confirmed By:AMBROSIO SAENZ MD
--- NOTE | 2022-03-06 16:17 | EX.ED.DYSGE1 ---
HPI History of Present Illness Chief Complaint: Shortness of Breath Informant: patient Onset/Context/Timing Onset: Days (3 days ago) Context: Gradual Onset Narrative Narrative: Patient presents secondary to shortness of breath. Patient was seen recently with asthmatic bronchitis. She states that she just completed her medication a couple days ago. She felt completely better. 3 days ago she started getting worse again. She denies fever. She has had cough. EMS reported the patient was able to ambulate to the cot, but her O2 sat did drop to 76%. When I enter the room she is lying almost completely supine with her nasal cannula over her upper lip. Her O2 sats are in the 90s. [facility] Medical History Asthma Bipolar 1 disorder Degenerative disc disease Depression Diabetes Fibromyalgia History of diverticulitis Hx of intestinal obstruction MRSA (methicillin resistant staph aureus) culture positive PTSD (post-traumatic stress disorder) Home Medications amitriptyline 10 mg tablet 20 mg PO TID Check with primary doctor 07/15/21 [History Last Taken 1 Day Ago ~07/14/21] citalopram 40 mg tablet 60 mg PO DAILY depression 07/15/21 [History Last Taken 1 Day Ago ~07/14/21] hydroxyzine HCl 50 mg tablet 50 mg PO BID PRN Anxiety 07/15/21 [History Last Taken 1 Day Ago ~07/14/21] metformin 500 mg tablet,extended release 24 hr 500 mg PO BID Check with primary doctor 07/15/21 [History Last Taken 1 Day Ago ~07/14/21] prazosin 1 mg capsule 1 mg PO QHS ptsd 07/15/21 [History Last Taken Unknown] trazodone 150 mg tablet 150 mg PO QHS anxiety 07/15/21 [History Last Taken 1 Day Ago ~07/14/21] albuterol sulfate 90 mcg/actuation aerosol inhaler 2 puff inhalation Q6H PRN shortness of breath or wheezing #8.5 grams 07/16/21 [Rx Last Taken Unknown] benztropine 1 mg tablet 1 mg PO BID Check with primary doctor 10/04/21 [History Last Taken Unknown] fluticasone propionate 45 mcg-salmeterol 21 mcg/actuation HFA inhaler (Advair HFA) 1 puff inhalation BID 10/04/21 [History Last Taken Unknown] acidophilus 25 million cell-pectin, citrus 100 mg tablet 1 tab PO TID 7 days #21 tabs 10/09/21 [Rx Last Taken Unknown] clindamycin HCl 150 mg capsule 450 mg PO TID 10 days #90 caps 02/04/22 [Rx Last Taken Unknown] azithromycin 250 mg tablet 250 mg PO DAILY #4 TABLETS 02/21/22 [Rx Last Taken Unknown] prednisone 20 mg tablet 20 mg PO BID #10 tabs 02/21/22 [Rx Last Taken Unknown] Allergy/AdvReac Type Severity Reaction Status Date / Time aminophylline Allergy Swelling Verified 03/06/22 15:46 amphetamine [From Adderall] Allergy Other Verified 03/06/22 15:46 dextroamphetamine Allergy Other Verified 03/06/22 15:46 [From Adderall] Iodinated Contrast Media [CT] Allergy Swelling Verified 03/06/22 15:46 iodine Allergy Swelling Verified 03/06/22 15:46 povidone-iodine Allergy Swelling Verified 03/06/22 15:46 [From Betadine] shellfish derived Allergy Swelling Verified 03/06/22 15:46 Sulfa (Sulfonamide Allergy Swelling Verified 03/06/22 15:46 Antibiotics) tetracycline AdvReac Rash Verified 03/06/22 15:46 Family History Father Diabetes Mother Diabetes Surgical History History of intestinal surgery History of lumpectomy of right breast History of right breast biopsy (~11/2021) Hx of appendectomy Hx of bilateral oophorectomy Hx of hysterectomy Hx of repair of right rotator cuff Social History household members: spouse Smoking Status: Never smoker alcohol intake: never substance use type: does not use ROS ROS ED Constitutional Constitutional ED: Denies chills or fever(s) Eyes Eyes: Denies change in vision or discharge from eye(s) ENT ENT ED: Denies discharge from eye(s), rhinorrhea or sore throat Cardiovascular Cardiovascular: Denies chest pain or palpitations Respiratory/Chest Respiratory/Chest: Reports cough and dyspnea Gastrointestinal Gastrointestinal: Denies abdominal pain, diarrhea, nausea or vomiting Genitourinary Genitourinary ED: Denies dysuria Musculoskeletal Musculoskeletal: Denies back pain or extremity pain Integumentary Reports rash; Denies Abrasions Neurologic Neurologic: Denies headache(s) or weakness Allergic/Immunologic Allergic/Immunologic ED: Denies lip swelling or urticaria EXAM Physical Exam Const Vital Signs: 03/06/22 15:40 03/06/22 15:46 03/06/22 16:55 Temperature 98.3 F Temperature Source Oral Pulse Rate 102 H 92 Respiratory Rate 36 H 26 H Respiratory Effort Short of Breath Accessory Muscle Use Respiratory Pattern Tachypnea Blood Pressure 128/87 H Blood Pressure Mean 100 Pulse Ox 95 Oxygen Delivery Method Room Air Positive well nourished and well developed General Appearance ED: well developed HEENT Reports normocephalic and head/scalp atraumatic Eyes PERRL and EOMs intact bilaterally Neck supple Chest Wall inspection of chest normal and palpation of chest normal Resp Resp Narrative: Tachypnea with expiratory wheezes throughout. Cardio regular rate and regular rhythm GI non-tender Auscultation: hypoactive bowel sounds Palpation: soft Extremity Extremity Narrative: Superficial scabs over the bilateral shins with mild erythema. This appears to be chronic venous skin changes and not acute cellulitis. Neuro oriented x3 and no sensory deficits noted Sensorium / Orientation: alert Motor Exam: strength 5/5 throughout Psych mental status grossly normal Skin no rashes or lesions noted MDM MDM MDM Narrative Medical decision making narrative: Patient is given DuoNeb and albuterol treatments along with IV Solu-Medrol. Lab work, chest x-ray obtained. Swabs for COVID and influenza ordered. Lab Data Attestation: I reviewed the patient's lab results. Labs: Laboratory Results - last 24 hr 03/06/22 03/06/22 15:50 15:50 WBC 7.8 RBC 4.57 Hgb 12.4 Hct 40.5 MCV 88.6 MCH 27.1 MCHC 30.6 L RDW Std Deviation 44.4 H RDW Coeff of Elsi 13.8 Plt Count 199 MPV 9.4 Immature Gran % (Auto) 1.200 H Neut % (Auto) 69.1 Lymph % (Auto) 10.9 L Baldwin % (Auto) 8.9 Eos % (Auto) 9.4 H Baso % (Auto) 0.5 Absolute Neuts (auto) 5.4 Absolute Lymphs (auto) 0.85 Nucleated RBC % 0 Sodium 142 Potassium 4.2 Chloride 108 H Carbon Dioxide 28.0 Anion Gap 6 BUN 7 Creatinine 1.02 Estim Creat Clear Calc 47.55 Est GFR (MDRD) Af Amer 72 Est GFR (MDRD) Non-Af 59 L BUN/Creatinine Ratio 6.9 L Glucose 176 H Calcium 9.2 Radiography Chest X-Ray - ED: 1 View, Read by ED Physician and - (No obvious focal infiltrate. Slight haziness at the right base.) Diagnostic Testing: Clinical Impression(s) from Imaging Studies Chest X-Ray 03/06/22 16:18 IMPRESSION: Hypoinflated study with bibasilar patchy airspace disease, atelectasis versus infiltrates. Recommend short term follow-up for stability. Electronically Signed: Hernandez Cummings MD at 16:54 EDT Reading Location ID and State: [facility] [place] Tel , Service support , EKG Initial EKG: Attestation: I personally reviewed and interpreted this EKG as follows: Interpretation: Sinus Rhythm (Sinus at 97 with no acute ischemia.) Treatment and Re-Evaluation Narrative: After breathing treatments lung sounds are improved. Only minimal wheeze noted at this time. Lab work is unremarkable. Chest x-ray per my interpretation shows no obvious infiltrate. Influenza test is negative but COVID test is positive. Patient is currently on 2 L nasal cannula. EMS documents that she became hypoxic with any exertion/ambulation. She is currently residing at the [facility] and I cannot send her back there with oxygen and COVID due to infection potential for everyone else there. I will speak with the hospitalist. Discharge Plan Triage Chief Complaint: Shortness of Breath ED Provider: Judith Valiente Dx/Rx/DC Orders Clinical Impression: COVID-19, Asthma exacerbation, Hypoxia Prescriptions: No Action citalopram 40 mg tablet 60 mg PO DAILY Hold Instructions: Resume on 10/16/21. after you finish antibiotics Label Comments: take 1 and 1/2 tablets DAILY hydroxyzine HCl 50 mg tablet 50 mg PO BID PRN (Reason: Anxiety) Hold Instructions: Resume on 10/16/21. after finishing your antibiotics Label Comments: TAKE 1 TABLET EVERY 8 HOURS NEEDED prazosin 1 mg capsule 1 mg PO QHS Label Comments: TAKE 1 CAPSULE BY MOUTH DAILY AT BEDTIME trazodone 150 mg tablet 150 mg PO QHS Label Comments: take 1 and 1/2 tablet DAILY AT BEDTIME metformin 500 mg tablet extended release 24 hr 500 mg PO BID amitriptyline 10 mg tablet 20 mg PO TID Label Comments: TAKE 2 TABLETS BY MOUTH THREE TIMES DAILY albuterol sulfate 90 mcg/actuation HFA aerosol inhaler 2 puff inhalation Q6H PRN (Reason: shortness of breath or wheezing) Qty: 8.5 0RF benztropine 1 mg tablet 1 mg PO BID Advair HFA 45-21 mcg/actuation HFA aerosol inhaler 1 puff INHALATION BID acidophilus-pectin, citrus 25 million cell -100 mg Tablet 1 tab PO TID 7 Days Qty: 21 0RF clindamycin HCl 150 mg capsule 450 mg PO TID 10 Days Qty: 90 0RF azithromycin [azithromycin] 250 mg tablet 250 mg PO DAILY Qty: 4 0RF prednisone 20 mg tablet 20 mg PO BID Qty: 10 0RF Primary Care Provider: Care Physician,No Primary Referrals: Care Physician,No Primary [Primary Care Provider] - Disposition Disposition: Acute Care Hospital [facility]
--- NOTE | 2022-03-06 16:18 | RAD_ITS ---
INDICATION: sob EXAMINATION/TECHNIQUE: X-RAY - portable upright AP chest x-ray COMPARISON: 02/21/2022 FINDINGS: LINES/DEVICES: None. LUNGS: Decreased lung volumes with patchy bibasilar airspace opacities. No consolidations or pleural effusions. MEDIASTINUM AND CARDIOVASCULAR STRUCTURES: Cardiac silhouette stable within upper normal limits. BONES AND SOFT TISSUES: No acute changes. RAD/Chest 1 View (Portable) IMPRESSION: Hypoinflated study with bibasilar patchy airspace disease, atelectasis versus infiltrates. Recommend short term follow-up for stability. Electronically Signed: Hernandez Cummings MD at 16:54 EDT ,
[2022-03-06] MEDS: Albuterol 2.5 MG/3 ML VIAL.NEB. INHALATION ×2 (16:29)
[2022-03-06] MEDS: Ipratropium/Albuterol Sulfate 3 ML AMPUL.NEB INHALATION (16:29)
[2022-03-06 16:38] LABS: Absolute Lymphocyte Count 0.85 X10^3/uL (0.83-4.51); Absolute Neutrophil Count 5.4 X10^3/uL (2.0-7.7); Basophil# 0.04 X10^3/uL; Basophil% 0.5 % (0-1); Eosinophil# 0.73 X10^3/uL; Eosinophils% 9.4 % (0-5); Hematocrit 40.5 % (37-47); Hemoglobin 12.4 g/dL (12.0-15.0); Lymphocyte # 0.85 X10^3/ul (0.83-4.51); Lymphocyte % 10.9 % (19-41); Mean Corp Hgb Conc 30.6 g/dL (32-36); Mean Corpuscular Hgb 27.1 pg (27.0-32.0); Mean Corpuscular Volume 88.6 fL (81-99); Mean Platelet Vol. 9.4 fl (6.2-12.0); Monocyte# 0.69 X10^3/uL; Monocyte% 8.9 % (0-10); NRBC Flagged by Analyzer 0 % (0-5); Neutrophil # 5.38 X10^3/uL (2.7-7.7); Neutrophil % 69.1 % (47-70); Platelet Count 199 K/mm3 (150-450); RBC Distribution Width CV 13.8 % (11.6-14.6); RBC Distribution Width SD 44.4 fl (35.1-43.9); Red Blood Count 4.57 M/mm3 (4.2-5.4); White Blood Count 7.8 K/mm3 (4.4-11.0)
[2022-03-06 16:55] VITALS: PULSE 92; RESP 26
[2022-03-06 16:59] LABS: Anion Gap 6 (5-15); BUN 7 mg/dL (7-18); BUN/Creat Ratio 6.9 RATIO (10-20); Calcium,Total 9.2 mg/dL (8.5-10.1); Chloride 108 mmol/L (98-107); Creatinine, Serum 1.02 mg/dL (0.55-1.02); EST Glomerular Filtration Rate 59 mL/min (>60); Est Glom Filt Rate - Afr Amer 72 mL/min (>60); Estimated Creatinine Clearance 47.55 ml/min; Glucose 176 mg/dL (74-106); Potassium 4.2 mmol/L (3.5-5.1); Sodium Level 142 mmol/L (136-145)
[2022-03-06] MEDS: MethylPREDNISolone 125 MG/2 ML Vial IV (17:40)
--- NOTE | 2022-03-06 18:18 | NURSING ---
DR RIOJAS FOR DR TRACY
--- NOTE | 2022-03-06 18:24 | NURSING ---
MED SURG [facility] [address], ASTHMA, HYPOXIA
--- NOTE | 2022-03-06 18:47 | HP.PCM.HOS_ITS ---
HPI - General General Date of Admission: 03/06/22 Date of Service: 03/06/22 Chief Complaint: Shortness of breath worsening for 2 days, cough and URI symptoms HPI Narrative LEAH JERRY, is a 56 F with history of asthma, non-smoker was brought to ED by EMS for shortness of breath worsening for 2 days. Patient also has URI symptoms, nasal congestion, postnasal drip since 02/19/2022. She has history of asthma and has been using inhalers as prescribed. She lives in [facility] and has been walking outside in cold for last few days. She felt mild feverish/chilled but did not measure temperature. She has been coughing up for last 1 week and brings up greenish-yellow phlegm. She denies chest pain or pressure but had mild chest tightness. She felt like asthma exacerbation. Prior to that patient came to ED for shortness of breath and anxiety on 02/21/22 and was discharged on azithromycin which she completed. As per EMS, patient was very short of breath, labored breathing for last few hours. Pulse ox was 78% on room air. Blood pressure was high, 224/160, respiratory rate 28/min. Mild tachycardia 105/min. Subsequently in ED, her blood pressure heart rate, respiratory rate got better. Hypoxia resolved. In ED, chest x-ray mutilative reviewed and shows bilateral lower lung puga infiltrates. Twelve-lead EKG individually reviewed shows normal sinus rhythm 97 bpm, LAD, QTC 472 ms. Patient tested positive for COVID-19 rapid antigen. She had 2 [employer] COVID-vaccine and 1 booster dose. Labs reviewed and discussed in assessment and plan. [facility] Medical History Asthma Bipolar 1 disorder Degenerative disc disease Depression Diabetes Fibromyalgia History of diverticulitis Hx of intestinal obstruction MRSA (methicillin resistant staph aureus) culture positive PTSD (post-traumatic stress disorder) Home Medications amitriptyline 10 mg tablet 10 mg PO TID Check with primary doctor 07/15/21 [History Last Taken 03/06/22 12:00] citalopram 40 mg tablet 60 mg PO DAILY depression 07/15/21 [History Last Taken 03/06/22 08:00] hydroxyzine HCl 50 mg tablet 50 mg PO Q6H PRN PRN Anxiety 07/15/21 [History Last Taken 03/06/22 12:00 50] metformin 500 mg tablet,extended release 24 hr 500 mg PO BID Check with primary doctor 07/15/21 [History Last Taken 03/06/22 08:00] prazosin 1 mg capsule 1 mg PO QHS ptsd 07/15/21 [History Last Taken 03/05/22 20:00] trazodone 150 mg tablet 225 mg PO QHS anxiety 07/15/21 [History Last Taken 03/05/22 21:00] albuterol sulfate 90 mcg/actuation aerosol inhaler 2 puff inhalation Q6H PRN shortness of breath or wheezing #8.5 grams 07/16/21 [Rx Last Taken 03/06/22 08:00] benztropine 1 mg tablet 1 mg PO BID Check with primary doctor 10/04/21 [History Last Taken 03/06/22 08:00] fluticasone propionate 45 mcg-salmeterol 21 mcg/actuation HFA inhaler (Advair HFA) 2 puff inhalation BID asthma 10/04/21 [History Last Taken 03/06/22 07:30] Benadryl Allergy 25 mg BID Check with primary doctor 03/06/22 [History Last Taken 03/06/22 12:00] atorvastatin 40 mg DAILY cholesterol 03/06/22 [History Last Taken 03/06/22 08:00] ibuprofen 500 mg Q6H PRN PRN Pain 03/06/22 [History Last Taken 03/06/22 08:30] prednisone 20 mg tablet 20 mg PO BID asthma 03/06/22 [History Last Taken 03/06/22 08:00] Allergy/AdvReac Type Severity Reaction Status Date / Time aminophylline Allergy Swelling Verified 03/06/22 15:46 amphetamine [From Adderall] Allergy Other Verified 03/06/22 15:46 dextroamphetamine Allergy Other Verified 03/06/22 15:46 [From Adderall] Iodinated Contrast Media [CT] Allergy Swelling Verified 03/06/22 15:46 iodine Allergy Swelling Verified 03/06/22 15:46 povidone-iodine Allergy Swelling Verified 03/06/22 15:46 [From Betadine] shellfish derived Allergy Swelling Verified 03/06/22 15:46 Sulfa (Sulfonamide Allergy Swelling Verified 03/06/22 15:46 Antibiotics) tetracycline AdvReac Rash Verified 03/06/22 15:46 Family History Father Diabetes Mother Diabetes Surgical History History of intestinal surgery History of lumpectomy of right breast History of right breast biopsy (~11/2021) Hx of appendectomy Hx of bilateral oophorectomy Hx of hysterectomy Hx of repair of right rotator cuff Social History household members: spouse Smoking Status: Never smoker alcohol intake: never substance use type: does not use ROS ROS Narrative Constitutional: Reports fatigue and weakness. Subjective feeling of chills and feverish. HEENT: URI symptoms as described in HPI reports systems reviewed and no addt'l complaints, except as documented Respiratory/Chest: As described in HPI Gastrointestinal: Denies coffee ground emesis, hematemesis or vomiting Genitourinary: Denies burning urination or new urinary tract symptoms Musculoskeletal: Denies joint pain and limited range of motion Neurologic: Denies seizure-like activity. No focal weakness Psychiatric: Anxiety, depression, PTSD skin: Dry skin, abrasion because of itching Endocrinology: Reports systems reviewed and no addt'l complaints, except as documented Hematologic/Lymphatic: Reports systems reviewed and no addt'l complaints, except as documented Rest 14 ROS are negative except as mentioned in HPI Vital Signs Vital Signs Vital Signs: 03/06/22 15:40 03/06/22 15:46 03/06/22 16:55 Temperature 98.3 F Temperature Source Oral Pulse Rate 102 H 92 Respiratory Rate 36 H 26 H Respiratory Effort Short of Breath Accessory Muscle Use Respiratory Pattern Tachypnea Blood Pressure 128/87 H Blood Pressure Mean 100 Pulse Ox 95 Oxygen Delivery Method Room Air Weight Weight: 162 lb 0.636 oz Body Mass Index (BMI) 29.6 Physical Exam Narrative Physical exam General: Alert, Oriented x3, Cooperative HEENT: Atraumatic, PERRLA, EOMI, Normocephalic Oral: Oral mucosa dry. No Gingival or Mucosal Lesions/ Ulcerations Neck: Supple, No JVD, Negative Carotid Bruits Lungs: Air entry diminished in both lungs. Bilateral expiratory wheezing and rhonchi. No hypoxia. Cardiovascular: Regular rate, Regular Rhythm, Normal S1, Normal S2, systolic murmur LLSB Abdomen: Bowel Sounds Present, Soft, Non Tender, Non-Distended : No renal angle tenderness. No suprapubic tenderness. Extremities: No edema, Capillary Refill Less than 3 Seconds Skin: Excoriations ruben because of itching/pruritus. Dry scaly skin Musculoskeletal: No Tenderness to Palpation of Joints or Extremities. ROM full and intact. Neurological: Cranial nerves II-XII grossly intact, DTR 2+/4 and Symmetrical, Neuro grossly intact Psych/Mental Status: Anxiety, PTSD, bipolar disorder. No suicidal intent or ideation or attempt. Results Lab / Micro Data Result Diagrams: 03/06/22 15:50 03/06/22 15:50 Labs: Laboratory Results - last 24 hr 03/06/22 15:50: WBC 7.8, RBC 4.57, Hgb 12.4, Hct 40.5, MCV 88.6, MCH 27.1, MCHC 30.6 L, RDW Std Deviation 44.4 H, RDW Coeff of Elsi 13.8, Plt Count 199, MPV 9.4, Immature Gran % (Auto) 1.200 H, Neut % (Auto) 69.1, Lymph % (Auto) 10.9 L, Barnes % (Auto) 8.9, Eos % (Auto) 9.4 H, Baso % (Auto) 0.5, Absolute Neuts (auto) 5.4, Absolute Lymphs (auto) 0.85, Nucleated RBC % 0 03/06/22 15:50: Sodium 142, Potassium 4.2, Chloride 108 H, Carbon Dioxide 28.0, Anion Gap 6, BUN 7, Creatinine 1.02, Estim Creat Clear Calc 47.55, Est GFR (MDRD) Af Amer 72, Est GFR (MDRD) Non-Af 59 L, BUN/Creatinine Ratio 6.9 L, Glucose 176 H, Calcium 9.2 Micro: Microbiology 03/06/22 16:25 Nasal Secretion SARS-CoV-2 & FLU Antigen (Rapid) - Final SARS-CoV-2 (COVID 19) Radiology Impression Chest X-Ray 03/06/22 16:18 IMPRESSION: Hypoinflated study with bibasilar patchy airspace disease, atelectasis versus infiltrates. Recommend short term follow-up for stability. Electronically Signed: Hernandez Cummings MD at 16:54 EDT , Assessment & Plan Assessment/Plan (1) Asthma exacerbation: (2) COVID-19: PLAN: Plan This is 56-year-old female is being admitted for asthma exacerbation and tested COVID-19 positive. 1. Asthma exacerbation probably due to COVID-19 viral pneumonia with possibility of bacterial secondary infection: Patient is being admitted to MedSurg floor. Currently patient not hypoxic or tachypneic. Patient does not have leukocytosis. ANC normal. D-dimer slightly elevated 0.52 probably inflammatory response of COVID-19. D-dimer is not more than 1.5 and patient is low priority as per modified Wells criteria therefore does not need CTPA. Started on DuoNeb, IV Solu-Medrol, Mucinex, Tessalon Perles, incentive mica metry and Pep. Enoxaparin 30 mg subcu every 12 hourly. Started on ceftriaxone 1 g daily for suspicion of bacterial secondary infection. Patient completed Zithromax as an outpatient. Pneumonia work-up including urinary antigens, MRSA nasal screen, blood cultures x2 and sputum culture ordered. 2. History of right MRSA axillary abscess/breast abscess during previous admission In September 2021: At that time patient was evaluated by surgeon and had I&D. The patient is still follows surgeon Dr. Robert for axillary lymphadenitis/Axillary mass and had biopsy under ultrasound guidance on 11/23/2021. On the right axillary exam, 1-2 nodule is being palpable firm in consistency. No purulent drainage. Advised to continue follow-up. ? 3.? History of PTSD, anxiety and depression Bipolar 1 disorder: Patient is on multiple antipsychotic and antidepressant medications.? During previous visit, patient was on multiple medications including amitriptyline, benztropine, citalopram, hydroxyzine and trazodone. Twelve-lead EKG shows QTC 422 ms. Her meds needs to be reconciled. 3. ?diabetes mellitus type 2: Glucose in BMP is 176. During previous admission, A1c 8.2%.? Accu-Chek insulin coverage Humalog sliding scale.? Lantus 10 units subcutaneous daily.? Hold metformin. 4.? History of diverticulitis and intestinal obstruction in the past.? No acute issues.? Patient moving her bowel.? No burning micturition. VTE prophylaxis: High risk in view of COVID-19 infection: Enoxaparin 30 mill SQ twice daily. Living will/advanced directive/end of life care: Patient does not have living will or advanced directive. After discussion of benefits/risks procedures involved with full code, DNR CC arrest and DNR CC, the patient opted for full code. In the beginning, patient wants resuscitation but does not want to be stable on ventilator. Patient does want artificial life support including intubation, tube feed, ventilator and/chest compression, central venous catheter, vasopressor and DC shock if needed Total time spent in [id number] encounter in discussion of advanced directive 16 minutes. Microbiology Past 72 Hours 03/06/22 16:25 Nasal Secretion SARS-CoV-2 & FLU Antigen (Rapid) - Final SARS-CoV-2 (COVID 19) Laboratory Results 03/06/22 15:50: WBC 7.8, RBC 4.57, Hgb 12.4, Hct 40.5, MCV 88.6, MCH 27.1, MCHC 30.6 L, RDW Std Deviation 44.4 H, RDW Coeff of Elsi 13.8, Plt Count 199, MPV 9.4, Immature Gran % (Auto) 1.200 H, Neut % (Auto) 69.1, Lymph % (Auto) 10.9 L, Barnes % (Auto) 8.9, Eos % (Auto) 9.4 H, Baso % (Auto) 0.5, Absolute Neuts (auto) 5.4, Absolute Lymphs (auto) 0.85, Nucleated RBC % 0 03/06/22 15:50: Sodium 142, Potassium 4.2, Chloride 108 H, Carbon Dioxide 28.0, Anion Gap 6, BUN 7, Creatinine 1.02, Estim Creat Clear Calc 47.55, Est GFR (MDRD) Af Amer 72, Est GFR (MDRD) Non-Af 59 L, BUN/Creatinine Ratio 6.9 L, Glucose 176 H, Calcium 9.2 03/06/22 15:50: D-Dimer Quant (PE/DVT) 0.52 H* 03/06/22 15:50: Total Bilirubin Pending, Direct Bilirubin Pending, AST Pending, ALT Pending, Alkaline Phosphatase Pending, Total Protein Pending, Albumin Pending Charges/Coding Visit Charges Inpatient E&M: 90884 Init Hosp L3 Procedures Hospitalists Procedures: 13357 Advncd Care Plan 30 Min
[2022-03-06 19:09] LABS: D-Dimer Quantitative (DVT/PE) 0.52 FEU/ug/m (0.27-0.49)
[2022-03-06 19:52] VITALS: BP 143/84; PULSE 96; RESP 18; TEMP 37.1; O2SAT 94
[2022-03-06 19:57] VITALS: BMI 29.2
[2022-03-06 22:29] LABS: AST(SGOT) 31 U/L (15-37); Alanine Aminotransfer ALT/SGPT 17 U/L (13-56); Albumin, Serum 3.8 g/dL (3.2-5.0); Alkaline Phosphatase 175 U/L (45-117); Bilirubin, Direct 0.06 mg/dL (0.00-0.30); CPK Total, Creatine Kinase 165 U/L (26-192); Globulin 3.5 g/dL (2.2-4.2); LDH 408 U/L (84-246); Protein, Total 7.3 g/dL (6.4-8.2)
[2022-03-06 22:36] LABS: Fibrinogen 435 mg/dl (203-444)
[2022-03-06 22:43] LABS: International Normalized Ratio 0.9
[2022-03-06 23:06] LABS: Lactic Acid 1.8 mmol/L (0.4-1.9)
[2022-03-06 23:30] LABS: Procalcitonin 0.08 ng/mL (0.00-0.09)
[2022-03-06 23:44] VITALS: BP 159/87; PULSE 88; RESP 18; TEMP 36.8; O2SAT 95
[2022-03-06] MEDS: guaiFENesin 1,200 MG Tablet 1200 MG PO (23:55)
[2022-03-06] MEDS: Benzonatate 100 MG Capsule 200 MG PO (23:55)
[2022-03-06] MEDS: traZODone 100 MG Tablet PO (23:56)
[2022-03-06] MEDS: Insulin Glargine-YFGN 100 UNIT/ML Pen 10 UNIT SC (23:56)
[2022-03-06] MEDS: Senna/Docusate Sodium 1 Tablet 2 TABLET PO (23:56)
[2022-03-06] MEDS: Insulin Lispro 100 UNIT/ML INSULN.PEN SC (23:57)
[2022-03-07] VITALS (7 sets, daily range): BP systolic 145–155; BP diastolic 82–87; PULSE 82–99; RESP 16–20; TEMP 36.4–36.8; O2SAT 93–98
[2022-03-07] MEDS: Atorvastatin Calcium 40 MG Tablet PO (00:01)
[2022-03-07] MEDS: Enoxaparin 30 MG/0.3 ML Syringe SC ×2 (00:01→08:50)
[2022-03-07] MEDS: 0.9% Saline Lock 10 ML Syringe IV ×2 (00:26→06:28)
[2022-03-07] MEDS: 0.45% Normal Saline 1,000 ML 75 ML IV (00:27)
[2022-03-07] MEDS: Ceftriaxone 1 GM/50 ML BAG IV (00:27)
[2022-03-07] MEDS: Ipratropium/Albuterol Sulfate 3 ML AMPUL.NEB INHALATION ×3 (00:36→10:02)
[2022-03-07 00:56] LABS: Bedside Glucose 289 mg/dL (74-106)
[2022-03-07 06:19] LABS: M R Staph aureus DNA By PCR Negative (Negative); Probe Check PASS; Specimen Processing Control PASS
[2022-03-07] MEDS: hydrOXYzine PAM 25 MG Capsule 50 MG PO (06:27)
[2022-03-07] MEDS: Benzonatate 100 MG Capsule 200 MG PO ×2 (06:28→13:28)
[2022-03-07] MEDS: Insulin Lispro 100 UNIT/ML INSULN.PEN SC ×2 (06:28→11:22)
[2022-03-07 06:37] LABS: Absolute Lymphocyte Count 0.52 X10^3/uL (0.83-4.51); Absolute Neutrophil Count 4.1 X10^3/uL (2.0-7.7); Basophil# 0.01 X10^3/uL; Basophil% 0.2 % (0-1); Eosinophil# 0.01 X10^3/uL; Eosinophils% 0.2 % (0-5); Hematocrit 35.4 % (37-47); Hemoglobin 11.4 g/dL (12.0-15.0); Lymphocyte # 0.52 X10^3/ul (0.83-4.51); Lymphocyte % 10.6 % (19-41); Mean Corp Hgb Conc 32.2 g/dL (32-36); Mean Corpuscular Hgb 27.5 pg (27.0-32.0); Mean Corpuscular Volume 85.3 fL (81-99); Mean Platelet Vol. 8.7 fl (6.2-12.0); Monocyte# 0.12 X10^3/uL; Monocyte% 2.5 % (0-10); NRBC Flagged by Analyzer 0 % (0-5); Neutrophil # 4.12 X10^3/uL (2.7-7.7); Neutrophil % 84.3 % (47-70); POSITIVE DIFFERENTIAL YES; Platelet Count 169 K/mm3 (150-450); RBC Distribution Width CV 13.5 % (11.6-14.6); RBC Distribution Width SD 42.1 fl (35.1-43.9); Red Blood Count 4.15 M/mm3 (4.2-5.4); White Blood Count 4.9 K/mm3 (4.4-11.0)
[2022-03-07 06:41] LABS: Differential Indicated SCAN CRITERIA MET
[2022-03-07 06:56] LABS: Bedside Glucose 231 mg/dL (74-106)
[2022-03-07 07:07] LABS: Anion Gap 8 (5-15); BUN 11 mg/dL (7-18); BUN/Creat Ratio 12.2 RATIO (10-20); Calcium,Total 8.6 mg/dL (8.5-10.1); Chloride 106 mmol/L (98-107); EST Glomerular Filtration Rate 68 mL/min (>60); Est Glom Filt Rate - Afr Amer 83 mL/min (>60); Estimated Creatinine Clearance 51.41 ml/min; Glucose 237 mg/dL (74-106); Magnesium 2.1 mg/dL (1.6-2.6); Phosphorus 3.4 mg/dL (2.5-4.9); Potassium 4.1 mmol/L (3.5-5.1); Sodium Level 138 mmol/L (136-145)
[2022-03-07] MEDS: Glucerna Shake 120 ML LIQUID PO (08:50)
[2022-03-07] MEDS: guaiFENesin 1,200 MG Tablet 1200 MG PO (08:51)
[2022-03-07] MEDS: Citalopram 20 MG Tablet 60 MG PO (08:51)
[2022-03-07] MEDS: Senna/Docusate Sodium 1 Tablet 2 TABLET PO (08:51)
[2022-03-07] MEDS: FLU VACC QS2022-23(6MOS UP)/PF 60 MCG/0.5 ML SYRINGE IM (08:53)
[2022-03-07] MEDS: Acetaminophen 325 MG Tablet 650 MG PO (09:07)
--- NOTE | 2022-03-07 10:30 | CASEMGMT ---
Addendum entered by Iwona Miguel 03/07/22 11:02: Pt able to return to [facility] with a mask. To be DC today. Pt does not qualify for home oxygen. Original Note: NEHEMIAS MA Assessment: Face to Face with pt for initial transition planning/care coordination assessment. NEHEMIAS MA introduced self and role at [facility], pt voices understanding and consents to assessment. Pt is A/O x4 and answers all questions appropriately at this time. Pt was in bed and appeared to be in no distress on room air. was sitting in chair bedside bed. Care providers, pharmacy, and demographics verified/updated. Admitting Dx: Asthma exacerbation. PCP: No PCP. Pt provided with local Healthcare Directory pamphlet. Specialists: None. [facility]erred [facility]. Insurance: [employer]. Prescription Benefit: yes. LNOK: Dean David, . Living Arrangements: Pt lives with at the [facility] in [place]. Pt is I in ADLs. Pt denies at the [facility]. Pt reports being at the [facility] for two weeks. Pt is working with [employer] to obtain stable housing. Transportation: Pt denies having a car. reports the car was repossessed. Pt's reports utilizing the bus system. Pt was made aware of transportation to and from medical appointments through [employer]. DME/HHC/SNF: Pt reports having a nebulizer and necessary supplies. Pt also reports having a glucometer and supplies. No other DME reported. Pt denied any HH or SNF stays. Pt states no concerns with going to the [facility] at time of dc. Pt to call [facility] to note any stipulations of returning being COVID-19 positive. Will provide [facility]'s phone contact. If Pt cannot return, will check with daughter regarding staying with her. Pt states no further concerns/needs. CM to follow. Advised pt to ask CM if any further question/concerns/needs arise, voices understanding. Pt Goal: To return to [facility] if permitted. Plan: To return to [facility] if permitted.
[2022-03-07 11:45] LABS: Bedside Glucose 340 mg/dL (74-106)
--- NOTE | 2022-03-07 12:40 | DS.PCM_ITS ---
Providers Date of Admission: 03/06/22 Date of Discharge: 03/07/22 Primary Care Physician: No Primary Care Phys Reason For Visit: ASTHMA EXACERBATION Diagnosis Discharge Diagnosis (1) Asthma exacerbation: Status: Acute Code(s): J45.901 - Unspecified asthma with (acute) exacerbation (2) COVID-19: Status: Acute Code(s): U07.1 - COVID-19 Medications at Discharge Home Medications amitriptyline 10 mg tablet 10 mg PO TID Check with primary doctor 07/15/21 citalopram 40 mg tablet 60 mg PO DAILY depression 07/15/21 hydroxyzine HCl 50 mg tablet 50 mg PO Q6H PRN PRN Anxiety 07/15/21 metformin 500 mg tablet,extended release 24 hr 500 mg PO BID Check with primary doctor 07/15/21 prazosin 1 mg capsule 1 mg PO QHS ptsd 07/15/21 trazodone 150 mg tablet 225 mg PO QHS anxiety 07/15/21 albuterol sulfate 90 mcg/actuation aerosol inhaler 2 puff inhalation Q6H PRN shortness of breath or wheezing #8.5 grams 07/16/21 benztropine 1 mg tablet 1 mg PO BID Check with primary doctor 10/04/21 fluticasone propionate 45 mcg-salmeterol 21 mcg/actuation HFA inhaler (Advair HFA) 2 puff inhalation BID asthma 10/04/21 Benadryl Allergy 25 mg BID Check with primary doctor 03/06/22 atorvastatin 40 mg DAILY cholesterol 03/06/22 ibuprofen 500 mg Q6H PRN PRN Pain 03/06/22 benzonatate 100 mg capsule 200 mg PO TID #90 caps 03/07/22 prednisone 10 mg tablet 10 mg PO DAILY #40 tabs 03/07/22 Hospital Course Operations None Procedures EKG and - (Chest x-ray) Summary of Care Provided Minutes Spent on Discharge: 25 Hospital Course: Mrs. David is a 56-year-old white female who presented to the emergency department on 03/06/2022 with shortness of breath, cough, and upper respiratory symptoms. She has a history of asthma but is a non-smoker and indicated she had symptoms of URI including nasal congestion and postnasal drip with intermittent cough and shortness of breath since 02/19/2022. She is currently homeless and living at the [facility]. She indicated on presentation she felt mildly feverish and chilled but did not have a fever. She recently presented to the emergency department on 02/21/2022 and was discharged with a prescription for azithromycin. Per EMS upon their arrival she was short of breath with labored breathing and her pulse ox was 78% on room air. However, during her hospital course from the emergency department to the medical floor she was never hypoxic and on room air her entire hospitalization with oxygen saturations anywhere from 94 to 98%. Her CBC was overall unremarkable with a normal white count at 4.9. Her chemistry panel was overall unremarkable other than hyperglycemia with a blood sugar of 237 and the patient was on steroids and is diabetic at baseline. Her procalcitonin was 0.08 and her chest x-ray showed patchy bilateral infiltrates. On exam patient had some scattered wheezing but does have a diagnosis of asthma without any history of COPD or tobacco abuse. Given the fact she was stable on room air and ambulatory pulse ox was performed and patient remained stable on room air both with exertion and at rest. She was initially placed on antibiotics however these were discontinued and I suspect the patchy bilateral infiltrates is resultant from a COVID-19 positive rapid test that was found on admission. Strep pneumo and Legionella antigens were negative. Of note when she was here on 02/21/2022 her COVID rapid was negative at that time. With her wheezing on exam she was placed on steroids and was given a slow taper to be discharged on. She was also discharged on Tessalon Perles however the patient met no criteria for ongoing inpatient care. We did contact the [facility] and she is able to return there with COVID however she will have to wear a mask. She did question whether or not she was able to work and given the fact that she is fairly asymptomatic I told her that was up to her policy with regards to COVID at work. [facility] after discharge and requested to be seen within the next 1 to 2 weeks. We also made a referral to pulmonology with her baseline asthma. We requested that she called be seen within the next 1 to 2 months. Prescriptions for Tessalon Perles and her prednisone taper was sent to the pharmacy here at the hospital and these were delivered her prior to discharge. She was discharged in stable condition on 03/07/2022 and told to come back to the emergency department if she worsened. Discharge diagnoses: Acute asthma exacerbation-resolved COVID-19 viral pneumonia Transient hypoxia-resolved History of MRSA axillary abscess/breast abscess History of PTSD Anxiety Depression Bipolar type I disorder DM-2 History of diverticulitis History of intestinal obstruction History of asthma Hyperlipidemia Weight / BMI Weight Weight: 72 kg Body Mass Index (BMI) 29.2 ABG / Lab / Microbiology Data Result Diagrams: 03/07/22 06:30 03/07/22 06:30 Laboratory: Laboratory Results - last 24 hr 03/06/22 15:50: WBC 7.8, RBC 4.57, Hgb 12.4, Hct 40.5, MCV 88.6, MCH 27.1, MCHC 30.6 L, RDW Std Deviation 44.4 H, RDW Coeff of Elsi 13.8, Plt Count 199, MPV 9.4, Immature Gran % (Auto) 1.200 H, Neut % (Auto) 69.1, Lymph % (Auto) 10.9 L, [place] % (Auto) 8.9, Eos % (Auto) 9.4 H, Baso % (Auto) 0.5, Absolute Neuts (auto) 5.4, Absolute Lymphs (auto) 0.85, Nucleated RBC % 0 03/06/22 15:50: Sodium 142, Potassium 4.2, Chloride 108 H, Carbon Dioxide 28.0, Anion Gap 6, BUN 7, Creatinine 1.02, Estim Creat Clear Calc 47.55, Est GFR (MDRD) Af Amer 72, Est GFR (MDRD) Non-Af 59 L, BUN/Creatinine Ratio 6.9 L, Glucose 176 H, Calcium 9.2 03/06/22 15:50: D-Dimer Quant (PE/DVT) 0.52 H* 03/06/22 15:50: Total Bilirubin 0.40, Direct Bilirubin 0.06, AST 31, ALT 17, Alkaline Phosphatase 175 H, Total Protein 7.3, Albumin 3.8, Globulin 3.5 03/06/22 15:50: Lactate Dehydrogenase 408 H, Total Creatine Kinase 165, C-React Prot Ext Range 63.60 H 03/06/22 15:50: PT 12.0, INR 0.9, Fibrinogen 435 03/06/22 22:22: Lactic Acid 1.8 03/06/22 22:22: Procalcitonin 0.08 03/06/22 23:45: MRSA (PCR) Negative 03/06/22 23:50: POC Glucose 289 H 03/07/22 00:30: COVID-19 (DONALDO) Detected 03/07/22 06:23: POC Glucose 231 H 03/07/22 06:30: WBC 4.9, RBC 4.15 L, Hgb 11.4 L, Hct 35.4 L, MCV 85.3, MCH 27.5, MCHC 32.2 D, RDW Std Deviation 42.1, RDW Coeff of Elsi 13.5, Plt Count 169, MPV 8.7, Immature Gran % (Auto) 2.200 H, Neut % (Auto) 84.3 H, Lymph % (Auto) 10.6 L , [place] % (Auto) 2.5, Eos % (Auto) 0.2, Baso % (Auto) 0.2, Absolute Neuts (auto) 4.1, Absolute Lymphs (auto) 0.52 L, Nucleated RBC % 0 03/07/22 06:30: Sodium 138, Potassium 4.1, Chloride 106, Carbon Dioxide 24.0, Anion Gap 8, BUN 11, Creatinine 0.90, Estim Creat Clear Calc 51.41, Est GFR (MDRD) Af Amer 83, Est GFR (MDRD) Non-Af 68, BUN/Creatinine Ratio 12.2, Glucose 237 H, Calcium 8.6, Phosphorus 3.4, Magnesium 2.1 03/07/22 11:21: POC Glucose 340 H Microbiology: Microbiology 03/07/22 07:58 Interface Orders Streptococcus pneumoniae Antigen (M - Final 03/07/22 07:58 Interface Orders Legionella Antigen - Final 03/06/22 16:25 Nasal Secretion SARS-CoV-2 & FLU Antigen (Rapid) - Final SARS-CoV-2 (COVID 19) Radiography Diagnostic Testing: Radiology Impression Chest X-Ray 03/06/22 16:18 IMPRESSION: Hypoinflated study with bibasilar patchy airspace disease, atelectasis versus infiltrates. Recommend short term follow-up for stability. Electronically Signed: Hernandez Cummings MD at 16:54 EDT , D/C Instructions Discharge Diet: Low fat / Low cholesterol and 1800 Calorie Control Diet Discharge Activity: Return to Normal Activity Return to work on: 03/08/22 (Depending on your work's COVID policy) Meaningful Use Info Meaningful Use Diagnoses (Choose all that apply): None applicable Discharge Plan Admission Admit Date/Time: 03/06/22 21:28 Primary Reason for Your Visit: Shortness of breath Attending Provider: Bhakti Arndt Primary Care Provider: Care Physician,No Primary Consulting Providers: Gabriele Quiroz Discharge Orders/Prescriptions Prescriptions: New benzonatate 100 mg Capsule 200 mg PO TID Qty: 90 0RF prednisone 10 mg tablet 10 mg PO DAILY Qty: 40 0RF Rx Instructions: 4 tablets x 4 days, 3 tablets x 4 days, 2 tablets x 4 days, 1 tablet x 4 days Continued citalopram 40 mg tablet 60 mg PO DAILY Hold Instructions: Resume on 10/16/21. after you finish antibiotics Label Comments: take 1 and 1/2 tablets DAILY hydroxyzine HCl 50 mg tablet 50 mg PO Q6H PRN PRN (Reason: Anxiety) Hold Instructions: Resume on 10/16/21. after finishing your antibiotics Label Comments: TAKE 1 TABLET EVERY 8 HOURS NEEDED prazosin 1 mg capsule 1 mg PO QHS Label Comments: TAKE 1 CAPSULE BY MOUTH DAILY AT BEDTIME trazodone 150 mg tablet 225 mg PO QHS Label Comments: take 1 and 1/2 tablet DAILY AT BEDTIME metformin 500 mg tablet extended release 24 hr 500 mg PO BID amitriptyline 10 mg tablet 10 mg PO TID Label Comments: TAKE 2 TABLETS BY MOUTH THREE TIMES DAILY albuterol sulfate 90 mcg/actuation HFA aerosol inhaler 2 puff inhalation Q6H PRN (Reason: shortness of breath or wheezing) Qty: 8.5 0RF benztropine 1 mg tablet 1 mg PO BID Advair HFA 45-21 mcg/actuation HFA aerosol inhaler 2 puff INHALATION BID atorvastatin 40 mg DAILY Benadryl Allergy 25 mg BID Rx Instructions: allergies ibuprofen 500 mg Q6H PRN PRN (Reason: Pain) Discontinued prednisone 20 mg tablet 20 mg PO BID Referrals / Follow Up: Ja Marshall DO [Med Staff - Active Staff] - Within 1 Month (for asthma) [facility] [Non-Staff] - Within 1 Week Care Physician,No Primary [Primary Care Provider] - Disposition Disposition (needs filled in before D/C Order can be placed): Home, Self Care Charges/Coding Visit Charges Inpatient E&M: 69569 Disch Hosp
== END 2022-03-07 14:14 | disposition home or self-care (01) ==
LOC: ED 18:05 → MS3 21:53
PROVIDERS: Admitting Provider Internal Medicine; Emergency Provider Emergency Medicine; Visit Provider Internal Medicine
DX: U07.1 COVID-19 (principal); F31.9 Bipolar disorder, unspecified; E11.65 Type 2 diabetes mellitus with hyperglycemia; J12.82 Pneumonia due to coronavirus disease 2019; J45.901 Unspecified asthma with (acute) exacerbation; I88.9 Nonspecific lymphadenitis, unspecified; M79.7 Fibromyalgia; Z79.84 Long term (current) use of oral hypoglycemic drugs; R09.02 Hypoxemia; Z79.51 Long term (current) use of inhaled steroids; F41.9 Anxiety disorder, unspecified; E78.5 Hyperlipidemia, unspecified; Z23 Encounter for immunization; Z79.899 Other long term (current) drug therapy; Z59.01 Sheltered homelessness; Z86.14 Personal history of Methicillin resistant Staphylococcus aureus infection
CPT/HCPCS: 90686; U0005; 36415; 71045; 80048; 80076; 82550; 82962; 83605; 83615; 83735; 84100; 84145; 85025; 85379; 85384; 85610; 86140; 87040; 87428; 87449; 87635; 87641; 93005; 94640; 94667; 96361; 96365; 96372; 96375; 96376; 97802; 99218; 99251; 99285; A4216; G0378; G0463; U0003

== ENCOUNTER 2022-03-28 15:21 | Emergency (ER) | payer MEDICAID, SELFPAY ==
[2022-03-28 15:23] VITALS: BP 145/112; PULSE 98; RESP 17; TEMP 36.3; O2SAT 97; BMI 30.4
--- NOTE | 2022-03-28 15:46 | CT_ITS ---
STUDY: CT BRAIN WITHOUT CONTRAST REASON FOR EXAM: Female, 56 years old. Technologist Notes anxious and trouble sleeping, hx diabetes, bipolar. altered mental status TECHNIQUE: Transaxial CT imaging of the brain was performed without administration of intravenous contrast material. Individualized dose optimization techniques were used for this CT. COMPARISON: None FINDINGS: Normal calvarium. Normal soft tissues. Normal size ventricles and extra-axial spaces for the patient''s age. Normal white matter tracts of the cerebral hemispheres. Normal basal ganglia and thalami. Normal brainstem. Normal cerebellum. There is no intracranial hemorrhage. There are no findings of an acute ischemic infarction. There is sinus disease. ASPECTS 10 CT/Brain/Head without Contrast IMPRESSION: There are no acute intracranial findings. Electronically Signed: Jose Manuel Collins MD at 16:29 EST ,
--- NOTE | 2022-03-28 15:47 | EKG12_ITS ---
Test Reason : GENERAL ILLNESS Blood Pressure : / mmHG Vent. Rate : 089 BPM Atrial Rate : 089 BPM P-R Int : 138 ms QRS Dur : 092 ms QT Int : 390 ms P-R-T Axes : 007 -27 036 degrees QTc Int : 474 ms Sinus rhythm with Fusion complexes and Premature atrial complexes with Aberrant conduction Incomplete right bundle branch block Minimal voltage criteria for LVH, may be normal variant ( R in aVL ) Borderline ECG Confirmed by JOANN BURNETT, BRANDI ([id number]), publishing editor LIAM MCCAIN ([id number]) on 04/02/2022 9:17:00 A M Referred By: Confirmed By:ADAM DAVID MD
--- NOTE | 2022-03-28 15:49 | EDS_ITS ---
HPI History of Present Illness Chief Complaint: General Illness Informant: patient Narrative Narrative: Unclear history on this patient who apparently was sent here from the [facility] prison because she is not acting right. There is no other history availab le from anyone except for the patient, and she seems confused and not able to provide a good history, telling me that she does not know why she is here. She states that she was going to go to the [facility] today to get refills of her citalopram and Vistaril which she has been out of for 5 days or so, she takes these for anxiety. She states she was working at [employer] today and accidentally cut her thumb with a knife and there was blood on her hand, so she was sent home from work, then she starts talking about her at home watching football, and other nonsensical thoughts that are out of context and do not make any sense. She denies any physical symptoms right now except for what she calls a tremor in her legs, and canker sores in her mouth. She denies any recent fall or injury. No illness that she knows of. She is a diabetic and her BGT per EMS was almost 300. [facility] Medical History Asthma Bipolar 1 disorder Degenerative disc disease Depression Diabetes Fibromyalgia History of diverticulitis Hx of intestinal obstruction MRSA (methicillin resistant staph aureus) culture positive PTSD (post-traumatic stress disorder) Home Medications amitriptyline 10 mg tablet 10 mg PO TID Check with primary doctor 07/15/21 [History Last Taken 03/06/22 12:00] citalopram 40 mg tablet 60 mg PO DAILY depression 07/15/21 [History Last Taken 03/06/22 08:00] hydroxyzine HCl 50 mg tablet 50 mg PO Q6H PRN PRN Anxiety 07/15/21 [History Last Taken 03/06/22 12:00 50] metformin 500 mg tablet,extended release 24 hr 500 mg PO BID Check with primary doctor 07/15/21 [History Last Taken 03/06/22 08:00] prazosin 1 mg capsule 1 mg PO QHS ptsd 07/15/21 [History Last Taken 03/05/22 20:00] trazodone 150 mg tablet 225 mg PO QHS anxiety 07/15/21 [History Last Taken 03/05/22 21:00] albuterol sulfate 90 mcg/actuation aerosol inhaler 2 puff inhalation Q6H PRN shortness of breath or wheezing #8.5 grams 07/16/21 [Rx Last Taken 03/06/22 08:00] benztropine 1 mg tablet 1 mg PO BID Check with primary doctor 10/04/21 [History Last Taken 03/06/22 08:00] fluticasone propionate 45 mcg-salmeterol 21 mcg/actuation HFA inhaler (Advair HFA) 2 puff inhalation BID asthma 10/04/21 [History Last Taken 03/06/22 07:30] Benadryl Allergy 25 mg BID Check with primary doctor 03/06/22 [History Last Taken 03/06/22 12:00] atorvastatin 40 mg DAILY cholesterol 03/06/22 [History Last Taken 03/06/22 08:00] ibuprofen 500 mg Q6H PRN PRN Pain 03/06/22 [History Last Taken 03/06/22 08:30] benzonatate 100 mg capsule 200 mg PO TID #90 caps 03/07/22 [Rx Last Taken Unknown] prednisone 10 mg tablet 10 mg PO DAILY #40 tabs 03/07/22 [Rx Last Taken Unknown] Allergy/AdvReac Type Severity Reaction Status Date / Time aminophylline Allergy Swelling Verified 03/28/22 15:23 amphetamine [From Adderall] Allergy Other Verified 03/28/22 15:23 dextroamphetamine Allergy Other Verified 03/28/22 15:23 [From Adderall] Iodinated Contrast Media [CT] Allergy Swelling Verified 03/28/22 15:23 iodine Allergy Swelling Verified 03/28/22 15:23 povidone-iodine Allergy Swelling Verified 03/28/22 15:23 [From Betadine] shellfish derived Allergy Swelling Verified 03/28/22 15:23 Sulfa (Sulfonamide Allergy Swelling Verified 03/28/22 15:23 Antibiotics) tetracycline AdvReac Rash Verified 03/28/22 15:23 Family History Father Diabetes Mother Diabetes Surgical History History of intestinal surgery History of lumpectomy of right breast History of right breast biopsy (~11/2021) Hx of appendectomy Hx of bilateral oophorectomy Hx of hysterectomy Hx of repair of right rotator cuff Social History household members: spouse Smoking Status: Never smoker alcohol intake: never substance use type: does not use ROS ROS ED Review of Systems ROS Unobtainable: due to mental status Constitutional Constitutional ED: Denies fever(s) Eyes Eyes: Denies change in vision or diplopia ENT ENT ED: Denies rhinorrhea or sore throat Cardiovascular Cardiovascular: Denies chest pain Respiratory/Chest Respiratory/Chest: Denies cough or dyspnea Gastrointestinal Gastrointestinal: Denies abdominal pain, diarrhea, nausea or vomiting Genitourinary Genitourinary ED: Denies dysuria or hematuria Musculoskeletal Musculoskeletal: Denies back pain or neck pain Integumentary Reports rash; Denies abscess Neurologic Neurologic: Denies headache(s), paresthesias or weakness Psychiatric Psychiatric: Reports anxiety; Denies suicidal thoughts EXAM Physical Exam Const Vital Signs: 03/28/22 15:23 03/28/22 15:31 03/28/22 18:17 Temperature 97.4 F L Temperature Source Temporal Pulse Rate 98 89 Respiratory Rate 17 18 Respiratory Effort Normal Blood Pressure 145/112 H 142/91 H Blood Pressure Mean 123 108 Pulse Ox 97 94 Oxygen Delivery Method Room Air Room Air Positive well nourished and well developed General Appearance ED: well developed and NAD HEENT Reports moist mucous membranes HEENT Narrative: Poor dentition mandibular teeth. No maxillary dentition present. normocephalic and atraumatic Eyes PERRL and EOMs intact bilaterally Neck full ROM, no lymphadenopathy and supple Resp normal respiratory effort and clear to auscultation bilaterally Cardio regular rate, regular rhythm and no murmurs GI non-tender and non-distended Auscultation: normoactive bowel sounds Palpation: soft Back/Spine no CVA tenderness General Back: other FROM Extremity normal to inspection General Extremety ED: Negative for edema, pulses abnormal or tenderness General Extremity: Negative for edema or pulses abnormal Neuro CN's II-XII intact bilaterally and no sensory deficits noted Neuro Narrative: Disoriented to time only otherwise oriented Sensorium / Orientation: awake, alert and orientation impaired Motor Exam: strength 5/5 throughout Psych Psych Narrative: Disorganized thoughts, nonsensical speaking. Fidgety. No seizure activity. Skin no wounds Skin Narrative: Dry nontender erythematous rash both lower legs consistent with psoriasis. Superficial partial-thickness 1 cm laceration to the pad of the left thumb, the skin edges do not dehisce when pressure is placed on them. No active bleeding. No signs of contamination or infection. MDM MDM MDM Narrative Medical decision making narrative: Broad work-up is essentially normal except for her toxicology screen showing methamphetamine and MDMA. When I discussed this with the patient, she admits to using methamphetamine yesterday but not today. She is ambulatory, she urinated several times here but does not have any sign of urine infection, this was likely related to her hyperglycemia which was transient and came down to the 100s without needing insulin which we canceled after ordering it. More history obtained after I had social work speak with and see the patient: The patient was working at [employer] and took 10 minutes to wash 1 dish and was staring off into space and not acting right, and after cutting her thumb they called her doctor at the [facility] and she was referred to the ER. Social work called the prison she is living out, they are willing to take her back, I suspect that her altered mental status is related to her drug use. She was counseled on this, given resources for addiction for her to follow-up with if she desires, and discharged home. Her left thumb 1 does not require repair, it was cleansed and dressed with bacitracin by nursing. Lab Data Attestation: I reviewed the patient's lab results. Labs: Laboratory Results - last 24 hr 03/28/22 03/28/22 03/28/22 16:00 16:00 16:00 WBC 7.0 RBC 4.41 Hgb 12.2 Hct 38.1 MCV 86.4 MCH 27.7 MCHC 32.0 RDW Std Deviation 42.5 RDW Coeff of Elsi 13.5 Plt Count 212 MPV 8.4 Immature Gran % (Auto) 1.000 H Neut % (Auto) 59.4 Lymph % (Auto) 23.3 Schley % (Auto) 9.5 Eos % (Auto) 6.2 H Baso % (Auto) 0.6 Absolute Neuts (auto) 4.1 Absolute Lymphs (auto) 1.62 Nucleated RBC % 0 Sodium 141 Potassium 3.6 Chloride 108 H Carbon Dioxide 24.0 Anion Gap 9 BUN 8 Creatinine 0.94 Estim Creat Clear Calc 46.86 Est GFR (MDRD) Af Amer 79 Est GFR (MDRD) Non-Af 65 BUN/Creatinine Ratio 8.5 L Glucose 175 H Calcium 8.9 Total Bilirubin 0.60 AST 15 ALT 16 Alkaline Phosphatase 114 Troponin I High Sens 6 Total Protein 6.5 Albumin 3.7 Globulin 2.8 Albumin/Globulin Ratio 1.3 TSH 0.50 Urine Color Urine Clarity Urine pH Ur Specific [place] Urine Protein Urine Glucose (UA) Urine Ketones Urine Occult Blood Urine Nitrite Urine Bilirubin Urine Urobilinogen Ur Leukocyte Esterase Urine RBC Urine WBC Ur Squamous Epith Cells Urine Bacteria Urine Mucus Urine Opiates Screen Urine Methadone Screen Ur Barbiturates Screen Ur Phencyclidine Scrn Ur Amphetamines Screen MDMA (Ecstasy) Screen U Benzodiazepines Scrn Urine Cocaine Screen U Cannabinoids Screen Ur Drug Screen Comment Ethyl Alcohol < 3.0 03/28/22 03/28/22 17:15 17:15 WBC RBC Hgb Hct MCV MCH MCHC RDW Std Deviation RDW Coeff of Elsi Plt Count MPV Immature Gran % (Auto) Neut % (Auto) Lymph % (Auto) Schley % (Auto) Eos % (Auto) Baso % (Auto) Absolute Neuts (auto) Absolute Lymphs (auto) Nucleated RBC % Sodium Potassium Chloride Carbon Dioxide Anion Gap BUN Creatinine Estim Creat Clear Calc Est GFR (MDRD) Af Amer Est GFR (MDRD) Non-Af BUN/Creatinine Ratio Glucose Calcium Total Bilirubin AST ALT Alkaline Phosphatase Troponin I High Sens Total Protein Albumin Globulin Albumin/Globulin Ratio TSH Urine Color Straw Urine Clarity Clear Urine pH 6.0 Ur Specific [place] 1.010 Urine Protein Negative Urine Glucose (UA) Normal Urine Ketones Negative Urine Occult Blood Negative Urine Nitrite Negative Urine Bilirubin Negative Urine Urobilinogen Normal Ur Leukocyte Esterase Negative Urine RBC 0 SEEN Urine WBC 0 SEEN Ur Squamous Epith Cells 0-5 SEEN Urine Bacteria 0 SEEN Urine Mucus 0 SEEN Urine Opiates Screen NEGATIVE Urine Methadone Screen NEGATIVE Ur Barbiturates Screen NEGATIVE Ur Phencyclidine Scrn NEGATIVE Ur Amphetamines Screen POSITIVE H MDMA (Ecstasy) Screen POSITIVE H U Benzodiazepines Scrn NEGATIVE Urine Cocaine Screen NEGATIVE U Cannabinoids Screen NEGATIVE Ur Drug Screen Comment Ethyl Alcohol Radiography Chest X-Ray - ED: 2 View, Read by ED Physician, No Acute Disease and No Infiltrates Diagnostic Testing: Clinical Impression(s) from Imaging Studies Brain CT 11/10/22 15:46 IMPRESSION: There are no acute intracranial findings. Electronically Signed: Jose Manuel Collins MD at 16:29 EST , Chest X-Ray 03/28/22 16:25 IMPRESSION: There are no acute findings. Electronically Signed: Jose Manuel Collins MD at 16:40 EST , Rhythm Strip Rhythm Strip: Sinus Rhythm Rate: 90 Ectopy: None EKG Initial EKG: Attestation: I personally reviewed and interpreted this EKG as follows: Interpretation: Sinus Rhythm and No Acute Injury Pattern Comments: artifact, otherwise nml Discharge Plan Triage Chief Complaint: General Illness ED Provider: Mehrdad Norris Dx/Rx/DC Orders Clinical Impression: Altered awareness, transient, Methamphetamine abuse, Laceration of thumb, left Prescriptions: No Action citalopram 40 mg tablet 60 mg PO DAILY Hold Instructions: Resume on 10/16/21. after you finish antibiotics Label Comments: take 1 and 1/2 tablets DAILY hydroxyzine HCl 50 mg tablet 50 mg PO Q6H PRN PRN (Reason: Anxiety) Hold Instructions: Resume on 10/16/21. after finishing your antibiotics Label Comments: TAKE 1 TABLET EVERY 8 HOURS NEEDED prazosin 1 mg capsule 1 mg PO QHS Label Comments: TAKE 1 CAPSULE BY MOUTH DAILY AT BEDTIME trazodone 150 mg tablet 225 mg PO QHS Label Comments: take 1 and 1/2 tablet DAILY AT BEDTIME metformin 500 mg tablet extended release 24 hr 500 mg PO BID amitriptyline 10 mg tablet 10 mg PO TID Label Comments: TAKE 2 TABLETS BY MOUTH THREE TIMES DAILY albuterol sulfate 90 mcg/actuation HFA aerosol inhaler 2 puff inhalation Q6H PRN (Reason: shortness of breath or wheezing) Qty: 8.5 0RF benztropine 1 mg tablet 1 mg PO BID Advair HFA 45-21 mcg/actuation HFA aerosol inhaler 2 puff INHALATION BID atorvastatin 40 mg DAILY Benadryl Allergy 25 mg BID Rx Instructions: allergies ibuprofen 500 mg Q6H PRN PRN (Reason: Pain) benzonatate 100 mg Capsule 200 mg PO TID Qty: 90 0RF prednisone 10 mg tablet 10 mg PO DAILY Qty: 40 0RF Rx Instructions: 4 tablets x 4 days, 3 tablets x 4 days, 2 tablets x 4 days, 1 tablet x 4 days Stand Alone Forms: ED Work / School Excuse Primary Care Provider: Care Physician,No Primary Referrals: [facility] [Non-Staff] - As soon as possible Care Physician,No Primary [Primary Care Provider] - [facility] [Non-Staff] - As Needed Activity Restrictions/Additional Instructions: Keep thumb wound clean and bandaged. Clean with soap and water, pat dry, put a new Band-Aid on it every night, at least once daily. Disposition Disposition: Home, Self Care
--- NOTE | 2022-03-28 16:01 | CM.ED ---
ELEANOR Note Referral Source: No PCP ELEANOR reviewed tracker. Tracker said no PCP. ELEANOR met with patient. Patient reports she is going to [facility]. SW remains available if needs arise. Donna PERRY
[2022-03-28 16:06] LABS: Absolute Lymphocyte Count 1.62 X10^3/uL (0.83-4.51); Absolute Neutrophil Count 4.1 X10^3/uL (2.0-7.7); Basophil# 0.04 X10^3/uL; Basophil% 0.6 % (0-1); Eosinophil# 0.43 X10^3/uL; Eosinophils% 6.2 % (0-5); Hematocrit 38.1 % (37-47); Hemoglobin 12.2 g/dL (12.0-15.0); Lymphocyte # 1.62 X10^3/ul (0.83-4.51); Lymphocyte % 23.3 % (19-41); Mean Corpuscular Hgb 27.7 pg (27.0-32.0); Mean Corpuscular Volume 86.4 fL (81-99); Mean Platelet Vol. 8.4 fl (6.2-12.0); Monocyte# 0.66 X10^3/uL; Monocyte% 9.5 % (0-10); NRBC Flagged by Analyzer 0 % (0-5); Neutrophil # 4.13 X10^3/uL (2.7-7.7); Neutrophil % 59.4 % (47-70); Platelet Count 212 K/mm3 (150-450); RBC Distribution Width CV 13.5 % (11.6-14.6); RBC Distribution Width SD 42.5 fl (35.1-43.9); Red Blood Count 4.41 M/mm3 (4.2-5.4)
[2022-03-28 16:24] LABS: Alcohol, Blood (Medical)-Serum < 3.0 mg/dL
--- NOTE | 2022-03-28 16:25 | RAD_ITS ---
STUDY: X-RAY CHEST REASON FOR EXAM: Female, 56 years old. confusion TECHNIQUE: XR Chest 2 Views COMPARISON: 03.06.22 FINDINGS: There is atherosclerotic calcification of the aortic arch with tortuosity. There are diffuse degenerative changes of the visualized thoracic spine. There is degenerative osteoarthritis of the bilateral shoulders. There is no demonstrated pleural abnormality. Normal size heart. Normal mediastinum and kirstin. Normal visualized pulmonary arteries. There is no demonstrated abnormality of the visualized soft tissue structures of the upper abdomen. RAD/Chest PA and Lateral IMPRESSION: There are no acute findings. Electronically Signed: Jose Manuel Collins MD at 16:40 EST ,
[2022-03-28 16:31] LABS: ALB/GLOB Ratio 1.3 RATIO (0.9-2.4); AST(SGOT) 15 U/L (15-37); Alanine Aminotransfer ALT/SGPT 16 U/L (13-56); Albumin, Serum 3.7 g/dL (3.2-5.0); Alkaline Phosphatase 114 U/L (45-117); Anion Gap 9 (5-15); BUN 8 mg/dL (7-18); BUN/Creat Ratio 8.5 RATIO (10-20); Calcium,Total 8.9 mg/dL (8.5-10.1); Chloride 108 mmol/L (98-107); Creatinine, Serum 0.94 mg/dL (0.55-1.02); EST Glomerular Filtration Rate 65 mL/min (>60); Est Glom Filt Rate - Afr Amer 79 mL/min (>60); Estimated Creatinine Clearance 46.86 ml/min; Globulin 2.8 g/dL (2.2-4.2); Glucose 175 mg/dL (74-106); Potassium 3.6 mmol/L (3.5-5.1); Protein, Total 6.5 g/dL (6.4-8.2); Sodium Level 141 mmol/L (136-145); Troponin-I HS 6 pg/mL (3.0-54.0)
[2022-03-28] MEDS: Citalopram 20 MG Tablet 60 MG PO (17:15)
[2022-03-28 17:24] LABS: Bacteria 0 SEEN /hpf (None Seen); Mucous, Urine 0 SEEN /hpf (<or=2+); Red Blood Cells-Urine 0 SEEN /hpf (0-5); White Blood Cells 0 SEEN /hpf (0-5)
[2022-03-28 17:32] LABS: Color, Urine Straw (Yellow); Glucose, Dipstick Normal (Normal); Ketone-Dipstick Negative (Negative); Leukocyte Esterase-Dipstick Negative /ul (Negative); Nitrite-Dipstick Negative (Negative); Occult Blood-Urine Negative /ul (Negative); Protein-Dipstick Negative (Negative); Urine Bilirubin Dipstick Negative (Negative); Urine Clarity Clear (Clear); Urine Urobilinogen Normal (Normal)
[2022-03-28 17:40] LABS: Squamous Epithelial Cells - UA 0-5 SEEN /hpf (5-10)
[2022-03-28 17:45] LABS: Amphetamine Urine VISTA POSITIVE (<1000 ng/mL); Barbiturate Urine VISTA NEGATIVE (< 200 ng/mL); Benzodiazepine Urine VISTA NEGATIVE (< 200 ng/mL); Cocaine Urine VISTA NEGATIVE (< 300 ng/mL); Ecstacy Urine VISTA POSITIVE (< 500 ng/mL); Methadone Urine VISTA NEGATIVE (< 300 ng/mL); PCP Urine VISTA NEGATIVE (< 25 ng/mL); THC Urine VISTA NEGATIVE (< 50 ng/mL); Vista UDS pH Range 5
[2022-03-28 18:17] VITALS: BP 142/91; PULSE 89; RESP 18; O2SAT 94
--- NOTE | 2022-03-28 18:23 | CM.ED ---
ELEANOR Note Referral Source: MD Referral Reason: Patient presents to the ED. Tox positive for meth. From [employer]. requesting that this law writer call [facility] [email or web address] to determine why she was sent to the ED in regards to her mental status. ELEANOR called Cherry at [facility] [email or web address]. Cheryr spoke to the it consulting manager. Commanding Officer Traffic Division said that patient was acting like she was not sure were she was at, it took her 15 minutes to wash a dish at work and was staring at a wall for 15-20 minute and was in a daze. Commanding Officer [employer] called [facility] and they told it consulting manager to call the EMS and get her seen by neurology. MD Updated. Per MD Patient's mental status change appears related to her recent drug use. SW spoke to patient and provided her with [employer] information regarding AOD treatment and [facility] resource list. Patient said that she does not need AOD treatment as she minimally used. SW encouraged patient to reach out for support from agencies regarding treatment. Plan: Home with resources Donna PERRY
== END 2022-03-28 19:03 | disposition home or self-care (01) ==
PROVIDERS: Emergency Provider Emergency Medicine; Visit Provider Emergency Medicine
DX: R40.4 Transient alteration of awareness (principal); F15.10 Other stimulant abuse, uncomplicated; F31.9 Bipolar disorder, unspecified; E11.9 Type 2 diabetes mellitus without complications; S61.012A Laceration without foreign body of left thumb without damage to nail, initial encounter; W26.0XXA Contact with knife, initial encounter; Y99.0 Civilian activity done for income or pay; Y92.511 Restaurant or cafe as the place of occurrence of the external cause; M79.7 Fibromyalgia; F41.9 Anxiety disorder, unspecified; Z79.84 Long term (current) use of oral hypoglycemic drugs; Z79.52 Long term (current) use of systemic steroids
CPT/HCPCS: 70450; 71046; 80053; 80307; 81001; 82077; 84443; 84484; 85025; 93005; 99285

== ENCOUNTER 2022-05-08 11:59 | Emergency (ER) | payer MEDICAID, SELFPAY ==
[2022-05-08 12:00] VITALS: BP 144/80; PULSE 89; RESP 18; TEMP 36.2; O2SAT 92; BMI 25.7
--- NOTE | 2022-05-08 12:22 | EDS_ITS ---
HPI History of Present Illness Chief Complaint: Abscess Detail of Chief Complaint: Abscess to vagina and left armpit Informant: patient Narrative Narrative: Patient presents with concern for abscesses to her vagina x3 days. Patient also states she has a small lump in her left armpit. Patient has had these in the past and had to have several drained by surgeon. She denies any fevers. Patient is a diabetic. Prior similar symptoms: Yes PFSH PFSH Medical History Asthma Bipolar 1 disorder Degenerative disc disease Depression Diabetes Fibromyalgia History of diverticulitis Hx of intestinal obstruction MRSA (methicillin resistant staph aureus) culture positive PTSD (post-traumatic stress disorder) Home Medications amitriptyline 10 mg tablet 10 mg PO TID Check with primary doctor 07/15/21 [History Last Taken 03/06/22 12:00] citalopram 40 mg tablet 60 mg PO DAILY depression 07/15/21 [History Last Taken 03/06/22 08:00] hydroxyzine HCl 50 mg tablet 50 mg PO Q6H PRN PRN Anxiety 07/15/21 [History Last Taken 03/06/22 12:00 50] metformin 500 mg tablet,extended release 24 hr 500 mg PO BID Check with primary doctor 07/15/21 [History Last Taken 03/06/22 08:00] prazosin 1 mg capsule 1 mg PO QHS ptsd 07/15/21 [History Last Taken 03/05/22 20:00] trazodone 150 mg tablet 225 mg PO QHS anxiety 07/15/21 [History Last Taken 03/05/22 21:00] albuterol sulfate 90 mcg/actuation aerosol inhaler 2 puff inhalation Q6H PRN shortness of breath or wheezing #8.5 grams 07/16/21 [Rx Last Taken 03/06/22 08:00] benztropine 1 mg tablet 1 mg PO BID Check with primary doctor 10/04/21 [History Last Taken 03/06/22 08:00] fluticasone propionate 45 mcg-salmeterol 21 mcg/actuation HFA inhaler (Advair HFA) 2 puff inhalation BID asthma 10/04/21 [History Last Taken 03/06/22 07:30] Benadryl Allergy 25 mg BID Check with primary doctor 03/06/22 [History Last Taken 03/06/22 12:00] atorvastatin 40 mg DAILY cholesterol 03/06/22 [History Last Taken 03/06/22 08:00] ibuprofen 500 mg Q6H PRN PRN Pain 03/06/22 [History Last Taken 03/06/22 08:30] benzonatate 100 mg capsule 200 mg PO TID #90 caps 03/07/22 [Rx Last Taken Unknown] prednisone 10 mg tablet 10 mg PO DAILY #40 tabs 03/07/22 [Rx Last Taken Unknown] cephalexin 500 mg capsule 500 mg PO Q6 #40 CAPSULES 05/08/22 [Rx Last Taken Unknown] hydrocodone-acetaminophen 5-325mg 5mg-325mg 1 tab PO Q4H PRN PRN Pain 2 days #10 TABLETS 05/08/22 [Rx Last Taken Unknown] Allergy/AdvReac Type Severity Reaction Status Date / Time aminophylline Allergy Swelling Verified 05/08/22 12:03 amphetamine [From Adderall] Allergy Other Verified 05/08/22 12:03 dextroamphetamine Allergy Other Verified 05/08/22 12:03 [From Adderall] Iodinated Contrast Media [CT] Allergy Swelling Verified 05/08/22 12:03 iodine Allergy Swelling Verified 05/08/22 12:03 povidone-iodine Allergy Swelling Verified 05/08/22 12:03 [From Betadine] shellfish derived Allergy Swelling Verified 05/08/22 12:03 Sulfa (Sulfonamide Allergy Swelling Verified 05/08/22 12:03 Antibiotics) tetracycline AdvReac Rash Verified 05/08/22 12:03 Family History Father Diabetes Mother Diabetes Surgical History History of intestinal surgery History of lumpectomy of right breast History of right breast biopsy (~11/2021) Hx of appendectomy Hx of bilateral oophorectomy Hx of hysterectomy Hx of repair of right rotator cuff Social History household members: spouse Smoking Status: Never smoker alcohol intake: never substance use type: does not use ROS ROS ED Review of Systems ROS Unobtainable: other Constitutional Constitutional ED: Reports lethargy; Denies chills, fever(s), sweats or weight loss Eyes Eyes: Denies blurry vision, change in vision or diplopia ENT ENT ED: Denies rhinorrhea or sore throat Cardiovascular Cardiovascular: Denies chest pain, orthopnea or racing heartbeat Respiratory/Chest Respiratory/Chest: Denies cough, dyspnea, dyspnea on exertion, orthopnea or sputum Gastrointestinal Gastrointestinal: Denies abdominal pain, diarrhea, nausea or vomiting Genitourinary Genitourinary ED: Denies dysuria, hematuria or urinary frequency Musculoskeletal Musculoskeletal: Denies arthralgias, back pain, myalgias or neck pain Integumentary Reports abscess and other Details: 2 abscesses to the vagina and 1 to left armpit ; Denies Abrasions or rash Neurologic Neurologic: Denies headache(s) or weakness Psychiatric Psychiatric: Denies anxiety, depression or suicidal thoughts Endocrine Endocrinology: Denies polydipsia, polyphagia or polyuria Hematologic/Lymphatic Hematologic/Lymphatic: Denies easy bleeding, easy bruising or lymphadenopathy Allergic/Immunologic Allergic/Immunologic ED: Denies mouth swelling, tongue swelling or urticaria EXAM Physical Exam Const Vital Signs: 05/08/22 12:00 Temperature 97.2 F L Temperature Source Temporal Pulse Rate 89 Respiratory Rate 18 Blood Pressure 144/80 H Blood Pressure Mean 101 Pulse Ox 92 Oxygen Delivery Method Room Air Positive well nourished and well developed General Appearance ED: well developed and NAD HEENT Reports TM's clear and moist mucous membranes normocephalic and atraumatic; Negative for trauma or tenderness Tympanic Membrane ED: Yes TM's clear Eyes PERRL and EOMs intact bilaterally General Eye ED: Negative for pale conjunctiva or scleral icterus Neck no lymphadenopathy, supple and no JVD General: Negative for tenderness Chest Wall inspection of chest normal and palpation of chest normal Chest: Negative for tenderness Resp normal respiratory effort and clear to auscultation bilaterally Effort and Inspection: Negative for respiratory distress or pain with movement Auscultation: Negative for rhonchi, wheezes or diminished lung sounds Cardio regular rate, regular rhythm, S1 normal heart sound, S2 normal heart sound and no murmurs Peripheral Pulses: pulses 2+ throughout GI normal to inspection, nondistended, normoactive bowel sounds, soft to palpation, non-tender, non-distended and no masses Narrative: exam-evaluation of the left labia does reveal suspected induration and soft tissue swelling with some cellulitic changes onto the labia majora. Patient also has a small soft tissue swelling that is slightly fluctuant measuring about 1 cm in diameter between the labia majora and labia minora on the right side. Slightly tender to palpation. Back/Spine no CVA tenderness and no thoracic nor lumbar tenderness Extremity Extremity Narrative: Left axilla-patient has a small papule measuring about 8 mm in diameter with no fluctuance and slightly tender. General Extremety ED: Negative for edema General Extremity: Negative for edema Neuro oriented x3, CN's II-XII intact bilaterally, no sensory deficits noted and gait normal Sensorium / Orientation: awake, alert, oriented to person, oriented to place and oriented to time Motor Exam: strength 5/5 throughout and strength abnormal Psych mental status grossly normal Skin no rashes or lesions noted and no wounds MDM MDM MDM Narrative Medical decision making narrative: Patient had incision and drainage of abscesses on left labia majora and right labia minora. Clean dressings applied. Patient was started on Keflex and given first dose in the emergency department. Patient referred to her primary care physician or her general surgeon whom she has seen in the past for these type of issues to follow-up within next 3 to 5 days. She is advised to return if increasing pain, redness, swelling, fever, or condition should worsen anyway. Patient will be given a prescription for few [place] for pain. Procedures Other Procedures Procedure(s): Area of the skin over the labia was cleansed with chlorhexidine and irrigated with water. Using 1% lidocaine total of 1 cc used over the left labia majora and 1 cc in the area between the labia majora on the right and the labia minora. Using an 11 blade a stab incision was made into the suspected abscess over the left labia majora and large amount of purulent free-flowing debris was expressed. I irrigated the wound. Wound was left open. Patient also had a stab incision made over the smaller abscess on the right and again moderate amount of purulent debris was obtained from there. Clean dressing was applied. Patient Toller procedure well. Discharge Plan Triage Chief Complaint: Abscess ED Provider: Gilda Drake Dx/Rx/DC Orders Clinical Impression: Abscess of labia Instructions: ED Abscess Incision And Drainage, ED Cellulitis Prescriptions: New hydrocodone-acetaminophen [hydrocodone-acetaminophen] 1 TABLET tablet 1 tab PO Q4H PRN PRN (Reason: Pain) 2 Days Qty: 10 0RF cephalexin [cephalexin] 500 MG capsule 500 mg PO Q6 Qty: 40 0RF No Action citalopram 40 mg tablet 60 mg PO DAILY Hold Instructions: Resume on 10/16/21. after you finish antibiotics Label Comments: take 1 and 1/2 tablets DAILY hydroxyzine HCl 50 mg tablet 50 mg PO Q6H PRN PRN (Reason: Anxiety) Hold Instructions: Resume on 10/16/21. after finishing your antibiotics Label Comments: TAKE 1 TABLET EVERY 8 HOURS NEEDED prazosin 1 mg capsule 1 mg PO QHS Label Comments: TAKE 1 CAPSULE BY MOUTH DAILY AT BEDTIME trazodone 150 mg tablet 225 mg PO QHS Label Comments: take 1 and 1/2 tablet DAILY AT BEDTIME metformin 500 mg tablet extended release 24 hr 500 mg PO BID amitriptyline 10 mg tablet 10 mg PO TID Label Comments: TAKE 2 TABLETS BY MOUTH THREE TIMES DAILY albuterol sulfate 90 mcg/actuation HFA aerosol inhaler 2 puff inhalation Q6H PRN (Reason: shortness of breath or wheezing) Qty: 8.5 0RF benztropine 1 mg tablet 1 mg PO BID Advair HFA 45-21 mcg/actuation HFA aerosol inhaler 2 puff INHALATION BID atorvastatin 40 mg DAILY Benadryl Allergy 25 mg BID Rx Instructions: allergies ibuprofen 500 mg Q6H PRN PRN (Reason: Pain) benzonatate 100 mg Capsule 200 mg PO TID Qty: 90 0RF prednisone 10 mg tablet 10 mg PO DAILY Qty: 40 0RF Rx Instructions: 4 tablets x 4 days, 3 tablets x 4 days, 2 tablets x 4 days, 1 tablet x 4 days Primary Care Provider: Shahida West Referrals: Mahesh Robert MD [Med Staff - Active Staff] - 3-5 Days Shahida West [Primary Care Provider] - 3-5 Days Disposition Disposition: Home, Self Care
[2022-05-08] MEDS: Lidocaine 1% (20 ml mdv) 20 ML Vial 6 ML INFILT (12:56)
[2022-05-08] MEDS: Cephalexin 250 MG Capsule 500 MG PO (13:25)
== END 2022-05-08 13:57 | disposition home or self-care (01) ==
PROVIDERS: Emergency Provider Emergency Medicine; Visit Provider Emergency Medicine
DX: N76.4 Abscess of vulva (principal)
CPT/HCPCS: 10060; 99283

== ENCOUNTER → 2022-05-16 | Outpatient (CLI) | payer MEDICAID, SELFPAY ==
--- NOTE | 2022-05-16 10:46 | RAD_ITS ---
INDICATION: asthma EXAMINATION/TECHNIQUE: X-RAY - XR Chest 2 Views COMPARISON: Chest radiograph from 03/28/2022 FINDINGS: Support devices: None. Bilateral peribronchial cuffing. There are some more focal trace patchy opacities in the right mid and lower lung puga. No sizable pleural effusion or pneumothorax. Heart size is stable. Bones and soft tissues are unchanged. RAD/Chest PA and Lateral IMPRESSION: 1. Bilateral peribronchial cuffing can be seen with reactive small airways disease such as with bronchitis or viral pneumonia. 2. Some more focal trace patchy opacities in the right mid and lower lung puga are new from previous study and could represent atelectasis and/or pneumonia. Electronically Signed: Lokesh Brock, at 16:02 EST ,
== END | disposition home or self-care (01) ==
PROVIDERS: Referring Provider Nurse Practitioner Family; Visit Provider Nurse Practitioner Family
DX: R91.8 Other nonspecific abnormal finding of lung field (principal); J45.41 Moderate persistent asthma with (acute) exacerbation
CPT/HCPCS: 71046

== ENCOUNTER 2022-06-08 22:23 | Emergency (ER) | payer MEDICAID, SELFPAY ==
[2022-06-08 22:23] VITALS: BP 129/82; PULSE 102; RESP 16; TEMP 36.6; O2SAT 100; BMI 28.3
[2022-06-08 22:39] VITALS: BP 117/51; PULSE 96; RESP 18; O2SAT 100
--- NOTE | 2022-06-08 22:45 | RAD_ITS ---
INDICATION: chest pain EXAMINATION/TECHNIQUE: X-RAY - XR Chest 1 View COMPARISON: 05/16/2022. FINDINGS: The lungs are clear. Tortuous and calcified thoracic aorta. The heart is borderline enlarged. No pleural effusion or pneumothorax. No acute osseous abnormalities. RAD/Chest 1 View (Portable) IMPRESSION: No acute radiographic abnormalities. Electronically Signed: Jorge Glover MD at 22:59 EST ,
--- NOTE | 2022-06-08 22:45 | EKG12_ITS ---
Test Reason : CP Blood Pressure : / mmHG Vent. Rate : 096 BPM Atrial Rate : 096 BPM P-R Int : 158 ms QRS Dur : 084 ms QT Int : 378 ms P-R-T Axes : 002 -29 026 degrees QTc Int : 477 ms Normal sinus rhythm Minimal voltage criteria for LVH, may be normal variant ( R in aVL ) Cannot rule out Anterior infarct , age undetermined Abnormal ECG Confirmed by LUZ BURNETT, DEBBY ([id number]), editor publications LIAM MCCAIN ([id number]) on 06/10/2022 10:50:19 AM Referred By: TL Confirmed By:DEBBY ESCOBAR MD
[2022-06-08 23:02] LABS: Absolute Lymphocyte Count 1.54 X10^3/uL (0.83-4.51); Absolute Neutrophil Count 1.9 X10^3/uL (2.0-7.7); Basophil# 0.03 X10^3/uL; Basophil% 0.7 % (0-1); Eosinophil# 0.36 X10^3/uL; Eosinophils% 8.5 % (0-5); Hematocrit 36.9 % (37-47); Hemoglobin 11.7 g/dL (12.0-15.0); Lymphocyte # 1.54 X10^3/ul (0.83-4.51); Lymphocyte % 36.4 % (19-41); Mean Corp Hgb Conc 31.7 g/dL (32-36); Mean Corpuscular Volume 88.3 fL (81-99); Mean Platelet Vol. 9.4 fl (6.2-12.0); Monocyte% 9.5 % (0-10); NRBC Flagged by Analyzer 0 % (0-5); Neutrophil # 1.88 X10^3/uL (2.7-7.7); Neutrophil % 44.4 % (47-70); Platelet Count 151 K/mm3 (150-450); RBC Distribution Width CV 14.1 % (11.6-14.6); RBC Distribution Width SD 45.6 fl (35.1-43.9); Red Blood Count 4.18 M/mm3 (4.2-5.4); White Blood Count 4.2 K/mm3 (4.4-11.0)
[2022-06-08 23:22] LABS: Anion Gap 6 (5-15); BUN 13 mg/dL (7-18); BUN/Creat Ratio 15.8 RATIO (10-20); Calcium,Total 8.6 mg/dL (8.5-10.1); Chloride 106 mmol/L (98-107); Creatinine, Serum 0.82 mg/dL (0.55-1.02); EST Glomerular Filtration Rate 76 mL/min (>60); Est Glom Filt Rate - Afr Amer 91 mL/min (>60); Estimated Creatinine Clearance 59.15 ml/min; Glucose 215 mg/dL (74-106); Potassium 3.7 mmol/L (3.5-5.1); Sodium Level 139 mmol/L (136-145); Troponin-I HS 4 pg/mL (3.0-54.0)
--- NOTE | 2022-06-08 23:24 | ED.VIS.CHEST ---
HPI History of Present Illness Chief Complaint: Chest Pain Informant: patient Narrative Narrative: Presents for intermittent sharp chest pains both sides since 3 PM. Since 10 PM reports chest pressure. No recent cough. No recent travel or surgeries. No history of PE or DVT. History of diabetes hyperlipidemia. Denies tobacco. Also reports a low back pain for the past 3 weeks worse with movement. No radicular symptoms. No urinary symptoms. Denies history of coronary disease. CVD Risk Factors: Positive for Diabetes and Hypercholesterolemia; Negative for Hypertension, Family History 1' </=55 or Smoking [facility] Medical History Asthma Bipolar 1 disorder Degenerative disc disease Depression Diabetes Fibromyalgia History of diverticulitis Hx of intestinal obstruction MRSA (methicillin resistant staph aureus) culture positive PTSD (post-traumatic stress disorder) Home Medications amitriptyline 10 mg tablet 10 mg PO TID Check with primary doctor 07/15/21 [History Last Taken 03/06/22 12:00] citalopram 40 mg tablet 60 mg PO DAILY depression 07/15/21 [History Last Taken 03/06/22 08:00] hydroxyzine HCl 50 mg tablet 50 mg PO Q6H PRN PRN Anxiety 07/15/21 [History Last Taken 03/06/22 12:00 50] metformin 500 mg tablet,extended release 24 hr 500 mg PO BID Check with primary doctor 07/15/21 [History Last Taken 03/06/22 08:00] prazosin 1 mg capsule 1 mg PO QHS ptsd 07/15/21 [History Last Taken 03/05/22 20:00] trazodone 150 mg tablet 225 mg PO QHS anxiety 07/15/21 [History Last Taken 03/05/22 21:00] albuterol sulfate 90 mcg/actuation aerosol inhaler 2 puff inhalation Q6H PRN shortness of breath or wheezing #8.5 grams 07/16/21 [Rx Last Taken 03/06/22 08:00] benztropine 1 mg tablet 1 mg PO BID Check with primary doctor 10/04/21 [History Last Taken 03/06/22 08:00] fluticasone propionate 45 mcg-salmeterol 21 mcg/actuation HFA inhaler (Advair HFA) 2 puff inhalation BID asthma 10/04/21 [History Last Taken 03/06/22 07:30] Benadryl Allergy 25 mg BID Check with primary doctor 03/06/22 [History Last Taken 03/06/22 12:00] atorvastatin 40 mg DAILY cholesterol 03/06/22 [History Last Taken 03/06/22 08:00] ibuprofen 500 mg Q6H PRN PRN Pain 03/06/22 [History Last Taken 03/06/22 08:30] benzonatate 100 mg capsule 200 mg PO TID #90 caps 03/07/22 [Rx Last Taken Unknown] prednisone 10 mg tablet 10 mg PO DAILY #40 tabs 03/07/22 [Rx Last Taken Unknown] cephalexin 500 mg capsule 500 mg PO Q6 #40 CAPSULES 05/08/22 [Rx Last Taken Unknown] hydrocodone-acetaminophen 5-325mg 5mg-325mg 1 tab PO Q4H PRN PRN Pain 2 days #10 TABLETS 05/08/22 [Rx Last Taken Unknown] Allergy/AdvReac Type Severity Reaction Status Date / Time aminophylline Allergy Swelling Verified 06/08/22 22:25 amphetamine [From Adderall] Allergy Other Verified 06/08/22 22:25 dextroamphetamine Allergy Other Verified 06/08/22 22:25 [From Adderall] Iodinated Contrast Media [CT] Allergy Swelling Verified 06/08/22 22:25 iodine Allergy Swelling Verified 06/08/22 22:25 povidone-iodine Allergy Swelling Verified 06/08/22 22:25 [From Betadine] shellfish derived Allergy Swelling Verified 06/08/22 22:25 Sulfa (Sulfonamide Allergy Swelling Verified 06/08/22 22:25 Antibiotics) tetracycline AdvReac Rash Verified 06/08/22 22:25 Family History Father Diabetes Mother Diabetes Surgical History History of intestinal surgery History of lumpectomy of right breast History of right breast biopsy (~11/2021) Hx of appendectomy Hx of bilateral oophorectomy Hx of hysterectomy Hx of repair of right rotator cuff Social History household members: spouse Smoking Status: Never smoker alcohol intake: never substance use type: does not use ROS ROS ED Constitutional Constitutional ED: Denies chills, fever(s) or sweats Eyes Eyes: Denies change in vision ENT ENT ED: Denies dysphagia or sore throat Cardiovascular Cardiovascular: Reports chest pain; Denies leg edema, palpitations or racing heartbeat Respiratory/Chest Respiratory/Chest: Denies cough, dyspnea or dyspnea on exertion Gastrointestinal Gastrointestinal: Denies abdominal pain, diarrhea, nausea or vomiting Genitourinary Genitourinary ED: Denies dysuria, hematuria or urinary frequency Musculoskeletal Musculoskeletal: Reports back pain; Denies extremity pain or neck pain Integumentary Denies rash or wounds Neurologic Neurologic: Denies headache(s), paresthesias or weakness EXAM Physical Exam Const Vital Signs: 06/08/22 22:23 06/08/22 22:39 06/08/22 22:40 Temperature 97.8 F Temperature Source Temporal Pulse Rate 102 H 96 Respiratory Rate 16 18 Respiratory Effort Normal Non-Labored Blood Pressure 129/82 H 117/51 L Blood Pressure Mean 97 73 Pulse Ox 100 100 Oxygen Delivery Method Room Air Room Air 06/09/22 01:09 Temperature 98 F Temperature Source Pulse Rate 90 Respiratory Rate 16 Respiratory Effort Blood Pressure 142/70 H Blood Pressure Mean Pulse Ox 98 Oxygen Delivery Method Positive well nourished and well developed General Appearance ED: well developed and NAD HEENT Reports moist mucous membranes normocephalic and atraumatic Eyes PERRL, EOMs intact bilaterally and conjunctivae normal General Eye ED: Yes normal appearance of both eyes Neck no lymphadenopathy and supple General: Negative for tenderness Chest Wall Chest: Negative for tenderness Resp normal respiratory effort and normal air movement Effort and Inspection: symmetric chest movement; Negative for respiratory distress Cardio regular rate, regular rhythm and no murmurs Peripheral Pulses: pulses 2+ throughout GI normal to inspection, nondistended, normoactive bowel sounds and non-tender Palpation: Negative for guarding or rebound tenderness present Back/Spine no CVA tenderness and no thoracic nor lumbar tenderness Back/Spine Narrative: Reproducible paralumbar tenderness straight leg test negative bilaterally. No rash to the back. Extremity normal to inspection General Extremety ED: Negative for edema or tenderness General Extremity: Negative for edema Neuro oriented x3 and no sensory deficits noted Sensorium / Orientation: awake and alert Skin no rashes or lesions noted and no wounds Heart Score History: Slightly/Non-Suspicious ECG: Normal Age: >45 - <65 years Risk Factors: 1 or 2 Risk Factors Troponin: </= Normal Limit Score: 2 MDM MDM MDM Narrative Medical decision making narrative: Patient present with chest pains. EKG normal. Differential ACS, nonspecific chest pains. No dyspnea no PE risk factors. Denies cough or any concerns of pneumonia. 1 view chest x-ray interpreted by myself and reviewed by radiology no acute process. Labs are pending. Patient has low back pain, differential more lumbar strain. No clinical urinary symptoms or rash for concerns for pyelonephritis or any shingles. This is musculoskeletal. 2325: Laboratory studies reviewed hemoglobin 11.7 creatinine 0.82. Troponin initially at 4. We will wait for 2-hour redraw. Repeat troponin negative at 3. Patient symptom-free on reevaluation. Discharged outpatient follow-up for further testing with return precautions. All questions were answered. Lab Data Attestation: I reviewed the patient's lab results. Labs: Laboratory Results - last 24 hr 06/08/22 06/08/22 06/09/22 22:35 22:35 00:32 WBC 4.2 L RBC 4.18 L Hgb 11.7 L Hct 36.9 L MCV 88.3 MCH 28.0 MCHC 31.7 L RDW Std Deviation 45.6 H RDW Coeff of Elsi 14.1 Plt Count 151 MPV 9.4 Immature Gran % (Auto) 0.500 Neut % (Auto) 44.4 L Lymph % (Auto) 36.4 [place] % (Auto) 9.5 Eos % (Auto) 8.5 H Baso % (Auto) 0.7 Absolute Neuts (auto) 1.9 L Absolute Lymphs (auto) 1.54 Nucleated RBC % 0 Sodium 139 Potassium 3.7 Chloride 106 Carbon Dioxide 27.0 Anion Gap 6 BUN 13 Creatinine 0.82 Estim Creat Clear Calc 59.15 Est GFR (MDRD) Af Amer 91 Est GFR (MDRD) Non-Af 76 BUN/Creatinine Ratio 15.8 Glucose 215 H Calcium 8.6 Troponin I High Sens 4 3 Radiography Diagnostic Testing: Clinical Impression(s) from Imaging Studies Chest X-Ray 06/08/22 22:45 IMPRESSION: No acute radiographic abnormalities. Electronically Signed: Jorge Glover MD at 22:59 EST , Discharge Plan Triage Chief Complaint: Chest Pain ED Provider: Montrell Zapien Dx/Rx/DC Orders Clinical Impression: Chest pain, History of diabetes mellitus, Hx of hyperlipidemia Instructions: ED Chest Pain, Uncertain Cause Prescriptions: No Action citalopram 40 mg tablet 60 mg PO DAILY Hold Instructions: Resume on 10/16/21. Label Comments: take 1 and 1/2 tablets DAILY hydroxyzine HCl 50 mg tablet 50 mg PO Q6H PRN PRN (Reason: Anxiety) Hold Instructions: Resume on 10/16/21. after finishing your antibiotics Label Comments: TAKE 1 TABLET EVERY 8 HOURS NEEDED prazosin 1 mg capsule 1 mg PO QHS Label Comments: TAKE 1 CAPSULE BY MOUTH DAILY AT BEDTIME trazodone 150 mg tablet 225 mg PO QHS Label Comments: take 1 and 1/2 tablet DAILY AT BEDTIME metformin 500 mg tablet extended release 24 hr 500 mg PO BID amitriptyline 10 mg tablet 10 mg PO TID Label Comments: TAKE 2 TABLETS BY MOUTH THREE TIMES DAILY albuterol sulfate 90 mcg/actuation HFA aerosol inhaler 2 puff inhalation Q6H PRN (Reason: shortness of breath or wheezing) Qty: 8.5 0RF benztropine 1 mg tablet 1 mg PO BID Advair HFA 45-21 mcg/actuation HFA aerosol inhaler 2 puff INHALATION BID atorvastatin 40 mg DAILY Benadryl Allergy 25 mg BID Rx Instructions: allergies ibuprofen 500 mg Q6H PRN PRN (Reason: Pain) benzonatate 100 mg Capsule 200 mg PO TID Qty: 90 0RF prednisone 10 mg tablet 10 mg PO DAILY Qty: 40 0RF Rx Instructions: 4 tablets x 4 days, 3 tablets x 4 days, 2 tablets x 4 days, 1 tablet x 4 days hydrocodone-acetaminophen [hydrocodone-acetaminophen] 1 TABLET tablet 1 tab PO Q4H PRN PRN (Reason: Pain) 2 Days Qty: 10 0RF cephalexin [cephalexin] 500 MG capsule 500 mg PO Q6 Qty: 40 0RF Primary Care Provider: Shahida West Referrals: Shahida West [Primary Care Provider] - 3-5 Days Activity Restrictions/Additional Instructions: Cardiac work-up negative. Follow-up with your doctor further testing as outpatient. Return if any worsening symptoms. Disposition Disposition: Home, Self Care Discharge Date/Time: 06/09/22 01:23
[2022-06-09 01:05] LABS: Troponin-I HS 3 pg/mL (3.0-54.0)
[2022-06-09 01:09] VITALS: BP 142/70; PULSE 90; RESP 16; TEMP 36.6; O2SAT 98
== END 2022-06-09 01:23 | disposition home or self-care (01) ==
PROVIDERS: Emergency Provider Emergency Medicine; Visit Provider Emergency Medicine
DX: R07.9 Chest pain, unspecified (principal); E11.9 Type 2 diabetes mellitus without complications; M54.50 Low back pain, unspecified; E78.5 Hyperlipidemia, unspecified
CPT/HCPCS: 71045; 80048; 84484; 85025; 93005; 99284; A4216

== ENCOUNTER 2022-06-14 09:48 | Emergency (ER) | payer MEDICAID, SELFPAY ==
[2022-06-14 09:49] VITALS: BP 133/70; PULSE 98; RESP 18; TEMP 36; O2SAT 100; BMI 28.1
--- NOTE | 2022-06-14 10:07 | CT_ITS ---
STUDY: CT ABDOMEN AND PELVIS WITHOUT CONTRAST REASON FOR EXAM: Female, 56 years old. 2 week history of back pain. RADIATION DOSAGE (If Supplied By Facility): CTDIvol = ( 10.08 ) mGy, DLP = ( 455.69 ) mGycm TECHNIQUE: Transaxial images were obtained from the dome of the diaphragm to the symphysis pubis without oral contrast, and without intravenous contrast. Sagittal and coronal images were reconstructed. Individualized dose optimization techniques were used for this CT. COMPARISON: None. FINDINGS: Mild increased linear markings in the anterior aspect of the medial portion of the right middle lobe suggestive of scarring. Increased linear markings at the left lung base suggestive of scarring. Coronary artery calcification. Normal liver. Normal gallbladder and extrahepatic biliary system. Borderline splenomegaly. Findings suggestive of a varicosities in the splenic hilum. Normal pancreas. Normal bilateral adrenal glands. Normal right kidney. Normal left kidney. Incidental note is made of a left retroaortic renal vein. Normal visualized stomach. Normal small intestine. There are multiple colonic diverticula consistent with diverticulosis. The patient is status post appendectomy. There is scattered atherosclerotic calcification of the abdominal aorta, without a demonstrated aneurysm. Normal inferior vena cava. Normal retroperitoneum. Normal urinary bladder. There is absence of the uterus consistent with a prior hysterectomy. The patient is status post bilateral oophorectomy. Multiple calcified phleboliths are seen in the pelvis. There is a small umbilical hernia containing fat. Normal osseous structures. CT/Abdomen/Pelvis without Cont IMPRESSION: Mild scarring at the lung bases. Findings suggestive of varicosities in the region of the splenic hilum. Borderline splenomegaly. Electronically Signed: Henrry Barroso MD at 10:54 EST ,
--- NOTE | 2022-06-14 10:08 | EDS_ITS ---
HPI History of Present Illness Chief Complaint: Back Detail of Chief Complaint: Back pain that initially started 2 weeks ago Informant: patient Narrative Narrative: Patient presents the emergency department complaint of back pain a started 2 weeks ago. Patient states that she was at work and lifted a box but did not think anything of it. The next day she woke up with a sore back. She has been having discomfort since that time but the pain became more severe 3 days ago. Patient also complains of some discomfort down the left leg. She denies weakness in extremities. She denies change in bowel or bladder function. Patient denies dysuria or urgency or frequency. Patient states that the pain is making her feel short of breath and lightheaded. Patient states that she had a fractured back 4 years ago and had an MRI at that time that showed a slightly herniated disc. [facility] Medical History Asthma Bipolar 1 disorder Degenerative disc disease Depression Diabetes Fibromyalgia History of diverticulitis Hx of intestinal obstruction MRSA (methicillin resistant staph aureus) culture positive PTSD (post-traumatic stress disorder) Home Medications amitriptyline 10 mg tablet 10 mg PO TID Check with primary doctor 07/15/21 [History Last Taken 03/06/22 12:00] citalopram 40 mg tablet 60 mg PO DAILY depression 07/15/21 [History Last Taken 03/06/22 08:00] hydroxyzine HCl 50 mg tablet 50 mg PO Q6H PRN PRN Anxiety 07/15/21 [History Last Taken 03/06/22 12:00 50] metformin 500 mg tablet,extended release 24 hr 500 mg PO BID Check with primary doctor 07/15/21 [History Last Taken 03/06/22 08:00] prazosin 1 mg capsule 1 mg PO QHS ptsd 07/15/21 [History Last Taken 03/05/22 20:00] trazodone 150 mg tablet 225 mg PO QHS anxiety 07/15/21 [History Last Taken 03/05/22 21:00] albuterol sulfate 90 mcg/actuation aerosol inhaler 2 puff inhalation Q6H PRN shortness of breath or wheezing #8.5 grams 07/16/21 [Rx Last Taken 03/06/22 08:00] benztropine 1 mg tablet 1 mg PO BID Check with primary doctor 10/04/21 [History Last Taken 03/06/22 08:00] fluticasone propionate 45 mcg-salmeterol 21 mcg/actuation HFA inhaler (Advair HFA) 2 puff inhalation BID asthma 10/04/21 [History Last Taken 03/06/22 07:30] Benadryl Allergy 25 mg BID Check with primary doctor 03/06/22 [History Last Taken 03/06/22 12:00] atorvastatin 40 mg DAILY cholesterol 03/06/22 [History Last Taken 03/06/22 08:00] ibuprofen 500 mg Q6H PRN PRN Pain 03/06/22 [History Last Taken 03/06/22 08:30] benzonatate 100 mg capsule 200 mg PO TID #90 caps 03/07/22 [Rx Last Taken Unknown] prednisone 10 mg tablet 10 mg PO DAILY #40 tabs 03/07/22 [Rx Last Taken Unknown] cephalexin 500 mg capsule 500 mg PO Q6 #40 CAPSULES 05/08/22 [Rx Last Taken Unknown] hydrocodone-acetaminophen 5-325mg 5mg-325mg 1 tab PO Q4H PRN PRN Pain 2 days #10 TABLETS 05/08/22 [Rx Last Taken Unknown] cyclobenzaprine 10 mg tablet 10 mg PO TID PRN Muscle Spasm #20 TABLETS 06/14/22 [Rx Last Taken Unknown] hydrocodone-acetaminophen 5-325mg 5mg-325mg 1 tab PO Q4H PRN PRN Pain 2 days #10 TABLETS 06/14/22 [Rx Last Taken Unknown] naproxen 500 mg tablet 500 mg PO BID #14 tabs 06/14/22 [Rx Last Taken Unknown] Allergy/AdvReac Type Severity Reaction Status Date / Time aminophylline Allergy Swelling Verified 06/14/22 09:49 amphetamine [From Adderall] Allergy Other Verified 06/14/22 09:49 dextroamphetamine Allergy Other Verified 06/14/22 09:49 [From Adderall] Iodinated Contrast Media [CT] Allergy Swelling Verified 06/14/22 09:49 iodine Allergy Swelling Verified 06/14/22 09:49 povidone-iodine Allergy Swelling Verified 06/14/22 09:49 [From Betadine] shellfish derived Allergy Swelling Verified 06/14/22 09:49 Sulfa (Sulfonamide Allergy Swelling Verified 06/14/22 09:49 Antibiotics) tetracycline AdvReac Rash Verified 06/14/22 09:49 Family History Father Diabetes Mother Diabetes Surgical History History of intestinal surgery History of lumpectomy of right breast History of right breast biopsy (~11/2021) Hx of appendectomy Hx of bilateral oophorectomy Hx of hysterectomy Hx of repair of right rotator cuff Social History household members: spouse Smoking Status: Never smoker alcohol intake: never substance use type: does not use ROS ROS ED Review of Systems ROS Unobtainable: other Constitutional Constitutional ED: Reports lethargy; Denies chills, fever(s), sweats or weight loss Eyes Eyes: Denies blurry vision, change in vision or diplopia ENT ENT ED: Denies rhinorrhea or sore throat Cardiovascular Cardiovascular: Denies chest pain, orthopnea or racing heartbeat Respiratory/Chest Respiratory/Chest: Reports dyspnea; Denies cough, dyspnea on exertion, orthopnea or sputum Gastrointestinal Gastrointestinal: Denies abdominal pain, diarrhea, nausea or vomiting Genitourinary Genitourinary ED: Denies dysuria, hematuria or urinary frequency Musculoskeletal Musculoskeletal: Reports back pain; Denies arthralgias, myalgias or neck pain Integumentary Denies abscess, Abrasions or rash Neurologic Neurologic: Denies headache(s) or weakness Psychiatric Psychiatric: Denies anxiety, depression or suicidal thoughts Endocrine Endocrinology: Denies polydipsia, polyphagia or polyuria Hematologic/Lymphatic Hematologic/Lymphatic: Denies easy bleeding, easy bruising or lymphadenopathy Allergic/Immunologic Allergic/Immunologic ED: Denies mouth swelling, tongue swelling or urticaria EXAM Physical Exam Const Vital Signs: 06/14/22 09:49 Temperature 96.8 F L Temperature Source Temporal Pulse Rate 98 Respiratory Rate 18 Blood Pressure 133/70 H Blood Pressure Mean 91 Pulse Ox 100 Oxygen Delivery Method Room Air Positive well nourished and well developed General Appearance ED: well developed and NAD HEENT Reports TM's clear and moist mucous membranes normocephalic and atraumatic; Negative for trauma or tenderness Tympanic Membrane ED: Yes TM's clear Eyes PERRL and EOMs intact bilaterally General Eye ED: Negative for pale conjunctiva or scleral icterus Neck no lymphadenopathy, supple and no JVD General: Negative for tenderness Chest Wall inspection of chest normal and palpation of chest normal Chest: Negative for tenderness Resp normal respiratory effort and clear to auscultation bilaterally Effort and Inspection: Negative for respiratory distress or pain with movement Auscultation: Negative for rhonchi, wheezes or diminished lung sounds Cardio regular rate, regular rhythm, S1 normal heart sound, S2 normal heart sound and no murmurs Peripheral Pulses: pulses 2+ throughout GI normal to inspection, nondistended, normoactive bowel sounds, soft to palpation, non-tender, non-distended and no masses Back/Spine no CVA tenderness Back/Spine Narrative: Patient is diffuse tenderness over the lumbar paraspinal musculature bilaterally as well as the lumbar spine. No obvious deformity. There is no erythema or warmth. Patient has a slightly positive straight leg raise on the left with pain at about 75 degrees. Deep tendon reflexes are plus 2 out of 4 bilaterally at the patella and Achilles. Patient has normal 5 extension. Patient has normal sensation to light touch. Extremity normal to inspection General Extremety ED: Negative for edema General Extremity: Negative for edema Neuro oriented x3, CN's II-XII intact bilaterally, no sensory deficits noted and gait normal Sensorium / Orientation: awake, alert, oriented to person, oriented to place and oriented to time Motor Exam: strength 5/5 throughout and strength abnormal Psych mental status grossly normal Skin no rashes or lesions noted and no wounds MDM MDM MDM Narrative Medical decision making narrative: Patient presents with back pain x2 weeks. In the differential would be sciatica versus musculoskeletal versus kidney stone versus UTI or possibly AAA. Lab work-up was unremarkable. She was medicated morphine and Zofran. Patient was also given Norflex. Urinalysis was unremarkable. I did do a CT scan of the abdomen pelvis without contrast that showed no evidence of kidney stones and normal osseous structures. No evidence of AAA. No acute intra-abdominal process noted. At this point I suspect likely musculoskeletal etiology versus sciatica. She will follow-up with her primary care physician. There is no indication for emergent MRI and no red flag signs or symptoms of cauda equina. Patient will be given a prescription for Flexeril as well as few [place] for pain. Lab Data Attestation: I reviewed the patient's lab results. Labs: Laboratory Results - last 24 hr 06/14/22 06/14/22 06/14/22 10:15 10:20 10:20 WBC 4.2 L RBC 4.15 L Hgb 11.6 L Hct 36.6 L MCV 88.2 MCH 28.0 MCHC 31.7 L RDW Std Deviation 45.6 H RDW Coeff of Elsi 14.1 Plt Count 193 MPV 9.0 Immature Gran % (Auto) 0.500 Neut % (Auto) 48.0 Lymph % (Auto) 33.1 [place] % (Auto) 9.8 Eos % (Auto) 7.9 H Baso % (Auto) 0.7 Absolute Neuts (auto) 2.0 Absolute Lymphs (auto) 1.38 Nucleated RBC % 0 Sodium 142 Potassium 3.7 Chloride 108 H Carbon Dioxide 24.0 Anion Gap 10 BUN 12 Creatinine 1.06 H Estim Creat Clear Calc 45.75 Est GFR (MDRD) Af Amer 68 Est GFR (MDRD) Non-Af 57 L BUN/Creatinine Ratio 11.3 Glucose 172 H Calcium 8.8 Urine Color Yellow Urine Clarity Clear Urine pH 5.0 Ur Specific [place] 1.020 Urine Protein Negative Urine Glucose (UA) NEGATIVE Urine Ketones Negative Urine Occult Blood Negative Urine Nitrite Negative Urine Bilirubin Negative Urine Urobilinogen Normal Ur Leukocyte Esterase 1+ Urine RBC 0 SEEN Urine WBC 0-5 SEEN Ur Squamous Epith Cells 10-25 SEEN Ur Transition Epith Cell 0 SEEN Urine Bacteria 0 SEEN Urine Mucus 0 SEEN Radiography Diagnostic Testing: Clinical Impression(s) from Imaging Studies Abdomen/Pelvis CT 06/14/22 10:07 IMPRESSION: Mild scarring at the lung bases. Findings suggestive of varicosities in the region of the splenic hilum. Borderline splenomegaly. Electronically Signed: Henrry Barroso MD at 10:54 EST , Discharge Plan Triage Chief Complaint: Back ED Provider: Gilda Drake Dx/Rx/DC Orders Clinical Impression: Back pain, Sciatica Instructions: ED Back and Neck Pain, General, ED Sciatica Prescriptions: New cyclobenzaprine [cyclobenzaprine] 10 mg tablet 10 mg PO TID PRN (Reason: Muscle Spasm) Qty: 20 0RF hydrocodone-acetaminophen [hydrocodone-acetaminophen] 5-325 mg tablet 1 tab PO Q4H PRN PRN (Reason: Pain) 2 Days Qty: 10 0RF naproxen 500 mg tablet 500 mg PO BID Qty: 14 0RF No Action citalopram 40 mg tablet 60 mg PO DAILY Hold Instructions: Resume on 10/16/21. after you finish antibiotics Label Comments: take 1 and 1/2 tablets DAILY hydroxyzine HCl 50 mg tablet 50 mg PO Q6H PRN PRN (Reason: Anxiety) Hold Instructions: Resume on 10/16/21. after finishing your antibiotics Label Comments: TAKE 1 TABLET EVERY 8 HOURS NEEDED prazosin 1 mg capsule 1 mg PO QHS Label Comments: TAKE 1 CAPSULE BY MOUTH DAILY AT BEDTIME trazodone 150 mg tablet 225 mg PO QHS Label Comments: take 1 and 1/2 tablet DAILY AT BEDTIME metformin 500 mg tablet extended release 24 hr 500 mg PO BID amitriptyline 10 mg tablet 10 mg PO TID Label Comments: TAKE 2 TABLETS BY MOUTH THREE TIMES DAILY albuterol sulfate 90 mcg/actuation HFA aerosol inhaler 2 puff inhalation Q6H PRN (Reason: shortness of breath or wheezing) Qty: 8.5 0RF benztropine 1 mg tablet 1 mg PO BID Advair HFA 45-21 mcg/actuation HFA aerosol inhaler 2 puff INHALATION BID atorvastatin 40 mg DAILY Benadryl Allergy 25 mg BID Rx Instructions: allergies ibuprofen 500 mg Q6H PRN PRN (Reason: Pain) benzonatate 100 mg Capsule 200 mg PO TID Qty: 90 0RF prednisone 10 mg tablet 10 mg PO DAILY Qty: 40 0RF Rx Instructions: 4 tablets x 4 days, 3 tablets x 4 days, 2 tablets x 4 days, 1 tablet x 4 days hydrocodone-acetaminophen [hydrocodone-acetaminophen] 1 TABLET tablet 1 tab PO Q4H PRN PRN (Reason: Pain) 2 Days Qty: 10 0RF cephalexin [cephalexin] 500 MG capsule 500 mg PO Q6 Qty: 40 0RF Primary Care Provider: Shahida West Referrals: Shahida West [Primary Care Provider] - 3-5 Days Disposition Disposition: Home, Self Care
[2022-06-14 10:24] LABS: Bacteria 0 SEEN /hpf (None Seen); Mucous, Urine 0 SEEN /hpf (<or=2+); Red Blood Cells-Urine 0 SEEN /hpf (0-5)
[2022-06-14] MEDS: Ondansetron 4 MG/2 ML Vial IV (10:26)
[2022-06-14] MEDS: Morphine 4 MG/ML Syringe IV (10:26)
[2022-06-14] MEDS: Orphenadrine 60 MG/2 ML Ampul IM (10:26)
[2022-06-14 10:27] LABS: Glucose, Dipstick NEGATIVE (Normal); Ketone-Dipstick Negative (Negative); Leukocyte Esterase-Dipstick 1+ /ul (Negative); Nitrite-Dipstick Negative (Negative); Occult Blood-Urine Negative /ul (Negative); Protein-Dipstick Negative (Negative); Urine Bilirubin Dipstick Negative (Negative); Urine Urobilinogen Normal (Normal)
[2022-06-14 10:28] LABS: Color, Urine Yellow (Yellow); Urine Clarity Clear (Clear)
[2022-06-14 10:29] LABS: Absolute Lymphocyte Count 1.38 X10^3/uL (0.83-4.51); Basophil# 0.03 X10^3/uL; Basophil% 0.7 % (0-1); Eosinophil# 0.33 X10^3/uL; Eosinophils% 7.9 % (0-5); Hematocrit 36.6 % (37-47); Hemoglobin 11.6 g/dL (12.0-15.0); Lymphocyte # 1.38 X10^3/ul (0.83-4.51); Lymphocyte % 33.1 % (19-41); Mean Corp Hgb Conc 31.7 g/dL (32-36); Mean Corpuscular Volume 88.2 fL (81-99); Monocyte# 0.41 X10^3/uL; Monocyte% 9.8 % (0-10); NRBC Flagged by Analyzer 0 % (0-5); Platelet Count 193 K/mm3 (150-450); RBC Distribution Width CV 14.1 % (11.6-14.6); RBC Distribution Width SD 45.6 fl (35.1-43.9); Red Blood Count 4.15 M/mm3 (4.2-5.4); White Blood Count 4.2 K/mm3 (4.4-11.0)
[2022-06-14 10:39] LABS: Anion Gap 10 (5-15); BUN 12 mg/dL (7-18); BUN/Creat Ratio 11.3 RATIO (10-20); Calcium,Total 8.8 mg/dL (8.5-10.1); Chloride 108 mmol/L (98-107); Creatinine, Serum 1.06 mg/dL (0.55-1.02); EST Glomerular Filtration Rate 57 mL/min (>60); Est Glom Filt Rate - Afr Amer 68 mL/min (>60); Estimated Creatinine Clearance 45.75 ml/min; Glucose 172 mg/dL (74-106); Potassium 3.7 mmol/L (3.5-5.1); Sodium Level 142 mmol/L (136-145)
[2022-06-14 10:46] LABS: Squamous Epithelial Cells - UA 10-25 SEEN /hpf (5-10); White Blood Cells 0-5 SEEN /hpf (0-5)
[2022-06-14 10:56] LABS: Transitional Epithelial - Ur 0 SEEN /hpf (0-5)
[2022-06-14 12:27] VITALS: BP 139/81; PULSE 72; RESP 15; O2SAT 98
== END 2022-06-14 12:29 | disposition home or self-care (01) ==
PROVIDERS: Emergency Provider Emergency Medicine; Visit Provider Emergency Medicine
DX: M54.30 Sciatica, unspecified side (principal); E11.9 Type 2 diabetes mellitus without complications; R06.00 Dyspnea, unspecified
CPT/HCPCS: 74176; 80048; 81001; 85025; 96372; 96374; 96375; 99283; A4216; J2405

== ENCOUNTER 2022-07-15 10:06 | Emergency (ER) | payer MEDICAID, SELFPAY ==
[2022-07-15 10:07] VITALS: BP 150/97; PULSE 110; RESP 24; TEMP 35.9; O2SAT 94; BMI 26.0
--- NOTE | 2022-07-15 13:31 | EDS_ITS ---
HPI History of Present Illness Chief Complaint: Wound Check Narrative Narrative: 56-year-old female presenting with concern she has bugs all over her. She states they are white. She has been trying to get them out of her skin. She states that they do make her skin itch. She states they are everywhere. She points to multiple abrasions on her upper and lower extremities. [facility] Medical History Asthma Bipolar 1 disorder Degenerative disc disease Depression Diabetes Fibromyalgia History of diverticulitis Hx of intestinal obstruction MRSA (methicillin resistant staph aureus) culture positive PTSD (post-traumatic stress disorder) Home Medications amitriptyline 10 mg tablet 10 mg PO TID Check with primary doctor 07/15/21 [History Last Taken 03/06/22 12:00] citalopram 40 mg tablet 60 mg PO DAILY depression 07/15/21 [History Last Taken 03/06/22 08:00] hydroxyzine HCl 50 mg tablet 50 mg PO Q6H PRN PRN Anxiety 07/15/21 [History Last Taken 03/06/22 12:00 50] metformin 500 mg tablet,extended release 24 hr 500 mg PO BID Check with primary doctor 07/15/21 [History Last Taken 03/06/22 08:00] prazosin 1 mg capsule 1 mg PO QHS ptsd 07/15/21 [History Last Taken 03/05/22 20:00] trazodone 150 mg tablet 225 mg PO QHS anxiety 07/15/21 [History Last Taken 03/05/22 21:00] albuterol sulfate 90 mcg/actuation aerosol inhaler 2 puff inhalation Q6H PRN shortness of breath or wheezing #8.5 grams 07/16/21 [Rx Last Taken 03/06/22 08:00] benztropine 1 mg tablet 1 mg PO BID Check with primary doctor 10/04/21 [History Last Taken 03/06/22 08:00] fluticasone propionate 45 mcg-salmeterol 21 mcg/actuation HFA inhaler (Advair HFA) 2 puff inhalation BID asthma 10/04/21 [History Last Taken 03/06/22 07:30] Benadryl Allergy 25 mg BID Check with primary doctor 03/06/22 [History Last Taken 03/06/22 12:00] atorvastatin 40 mg DAILY cholesterol 10/19/22 [History Last Taken 03/06/22 08:00] ibuprofen 500 mg Q6H PRN PRN Pain 03/06/22 [History Last Taken 03/06/22 08:30] benzonatate 100 mg capsule 200 mg PO TID #90 caps 03/07/22 [Rx Last Taken Unknown] prednisone 10 mg tablet 10 mg PO DAILY #40 tabs 03/07/22 [Rx Last Taken Unknown] cephalexin 500 mg capsule 500 mg PO Q6 #40 CAPSULES 05/08/22 [Rx Last Taken Unknown] hydrocodone-acetaminophen 5-325mg 5mg-325mg 1 tab PO Q4H PRN PRN Pain 2 days #10 TABLETS 05/08/22 [Rx Last Taken Unknown] cyclobenzaprine 10 mg tablet 10 mg PO TID PRN Muscle Spasm #20 TABLETS 06/14/22 [Rx Last Taken Unknown] hydrocodone-acetaminophen 5-325mg 5mg-325mg 1 tab PO Q4H PRN PRN Pain 2 days #10 TABLETS 06/14/22 [Rx Last Taken Unknown] naproxen 500 mg tablet 500 mg PO BID #14 tabs 06/14/22 [Rx Last Taken Unknown] permethrin 5 % topical cream 1 applic topical Q14D 2 doses #60 grams 07/15/22 [Rx Last Taken Unknown] Allergy/AdvReac Type Severity Reaction Status Date / Time aminophylline Allergy Swelling Verified 07/15/22 10:07 amphetamine [From Adderall] Allergy Other Verified 07/15/22 10:07 dextroamphetamine Allergy Other Verified 07/15/22 10:07 [From Adderall] Iodinated Contrast Media [CT] Allergy Swelling Verified 07/15/22 10:07 iodine Allergy Swelling Verified 07/15/22 10:07 povidone-iodine Allergy Swelling Verified 07/15/22 10:07 [From Betadine] shellfish derived Allergy Swelling Verified 07/15/22 10:07 Sulfa (Sulfonamide Allergy Swelling Verified 07/15/22 10:07 Antibiotics) tetracycline AdvReac Rash Verified 07/15/22 10:07 Family History Father Diabetes Mother Diabetes Surgical History History of intestinal surgery History of lumpectomy of right breast History of right breast biopsy (~11/2021) Hx of appendectomy Hx of bilateral oophorectomy Hx of hysterectomy Hx of repair of right rotator cuff Social History household members: spouse Smoking Status: Never smoker alcohol intake: never substance use type: does not use ROS ROS ED Constitutional Constitutional ED: Denies chills, fever(s) or sweats Eyes Eyes: Denies blurry vision or change in vision ENT ENT ED: Denies ear pain or sore throat Cardiovascular Cardiovascular: Denies chest pain, palpitations or racing heartbeat Respiratory/Chest Respiratory/Chest: Denies cough, dyspnea or sputum Gastrointestinal Gastrointestinal: Denies abdominal pain, constipation, diarrhea, nausea or vomiting Genitourinary Genitourinary ED: Denies dysuria, hematuria or urinary frequency Musculoskeletal Musculoskeletal: Denies arthralgias, myalgias or neck pain Integumentary Reports Abrasions and rash; Denies abscess Neurologic Neurologic: Denies headache(s), paresthesias or weakness Psychiatric Psychiatric: Denies anxiety, depression, suicidal ideation or suicidal thoughts Endocrine Endocrinology: Denies polydipsia or polyuria EXAM Physical Exam Const Vital Signs: 07/15/22 10:07 Temperature 96.7 F L Temperature Source Temporal Pulse Rate 110 H Respiratory Rate 24 H Blood Pressure 150/97 H Blood Pressure Mean 114 Pulse Ox 94 Oxygen Delivery Method Room Air Positive well nourished General Appearance ED: NAD HEENT Reports moist mucous membranes Eyes PERRL and EOMs intact bilaterally Resp normal respiratory effort and clear to auscultation bilaterally Cardio regular rate Rate: tachycardic Neuro oriented x3 and CN's II-XII intact bilaterally Sensorium / Orientation: alert Motor Exam: strength 5/5 throughout Skin Skin Narrative: Multiple excoriations on the upper and lower extremities. There are multiple punctate areas of erythema which appear to be picked at. No active bleeding. I do not visualize any insects, bugs etc. MDM MDM MDM Narrative Medical decision making narrative: Patient presenting with concern she has bugs all over her. She does have multiple excoriations but no visualized bugs. Her rash is nonspecific and mostly is excoriated from her scratching and picking at it. She did pull a tissue out of her pocket and attempted to show me white bugs on this however it is just a bloody tissue. Patient is highly concerned that she has bedbugs or something of the like. Not sure exam is consistent with this. I did give her a prescription for Permethrin cream. She was counseled to follow-up with the PCP to ensure resolution. Return precautions discussed. Impression: 1. Dermatitis 2. Formication Lab Data Attestation: I reviewed the patient's lab results. Discharge Plan Triage Chief Complaint: Wound Check ED Provider: Aniceto Tillman Dx/Rx/DC Orders Instructions: ED Bedbug Bites Prescriptions: New permethrin 5 % cream 1 applic topical Q14D Qty: 60 0RF Rx Instructions: apply second treatment 14 days after first treatment No Action citalopram 40 mg tablet 60 mg PO DAILY Hold Instructions: Resume on 10/16/21. Label Comments: take 1 and 1/2 tablets DAILY hydroxyzine HCl 50 mg tablet 50 mg PO Q6H PRN PRN (Reason: Anxiety) Hold Instructions: Resume on 10/16/21. after finishing your antibiotics Label Comments: TAKE 1 TABLET EVERY 8 HOURS NEEDED prazosin 1 mg capsule 1 mg PO QHS Label Comments: TAKE 1 CAPSULE BY MOUTH DAILY AT BEDTIME trazodone 150 mg tablet 225 mg PO QHS Label Comments: take 1 and 1/2 tablet DAILY AT BEDTIME metformin 500 mg tablet extended release 24 hr 500 mg PO BID amitriptyline 10 mg tablet 10 mg PO TID Label Comments: TAKE 2 TABLETS BY MOUTH THREE TIMES DAILY albuterol sulfate 90 mcg/actuation HFA aerosol inhaler 2 puff inhalation Q6H PRN (Reason: shortness of breath or wheezing) Qty: 8.5 0RF benztropine 1 mg tablet 1 mg PO BID Advair HFA 45-21 mcg/actuation HFA aerosol inhaler 2 puff INHALATION BID atorvastatin 40 mg DAILY Benadryl Allergy 25 mg BID Rx Instructions: allergies ibuprofen 500 mg Q6H PRN PRN (Reason: Pain) benzonatate 100 mg Capsule 200 mg PO TID Qty: 90 0RF prednisone 10 mg tablet 10 mg PO DAILY Qty: 40 0RF Rx Instructions: 4 tablets x 4 days, 3 tablets x 4 days, 2 tablets x 4 days, 1 tablet x 4 days hydrocodone-acetaminophen [hydrocodone-acetaminophen] 1 TABLET tablet 1 tab PO Q4H PRN PRN (Reason: Pain) 2 Days Qty: 10 0RF cephalexin [cephalexin] 500 MG capsule 500 mg PO Q6 Qty: 40 0RF cyclobenzaprine [cyclobenzaprine] 10 mg tablet 10 mg PO TID PRN (Reason: Muscle Spasm) Qty: 20 0RF hydrocodone-acetaminophen [hydrocodone-acetaminophen] 5-325 mg tablet 1 tab PO Q4H PRN PRN (Reason: Pain) 2 Days Qty: 10 0RF naproxen 500 mg tablet 500 mg PO BID Qty: 14 0RF Stand Alone Forms: ED Work / School Excuse Primary Care Provider: Shahida West Referrals: Shahida West [Primary Care Provider] - Disposition Disposition: Home, Self Care Discharge Date/Time: 07/15/22 11:52
== END 2022-07-15 11:52 | disposition home or self-care (01) ==
PROVIDERS: Emergency Provider Student in an Organized Health Care Education/Training Program; Visit Provider Student in an Organized Health Care Education/Training Program
DX: R20.2 Paresthesia of skin (principal); E11.620 Type 2 diabetes mellitus with diabetic dermatitis; R21 Rash and other nonspecific skin eruption
CPT/HCPCS: 99282

== ENCOUNTER → 2022-10-08 | Outpatient (CLI) | payer MEDICAID, SELFPAY ==
--- NOTE | 2022-10-08 11:37 | RAD_ITS ---
STUDY: X-RAY - RIGHT HAND REASON FOR EXAM: Female, 56 years old. PAIN IN JOINTS TECHNIQUE: 2 view(s) of the hand. COMPARISON: None. FINDINGS: Normal radiocarpal articulation. Normal distal radioulnar joint. Normal visualized carpal bones. Normal carpal articulations Normal carpometacarpal articulation of the thumb. Normal second through fifth carpometacarpal joints. Normal metacarpi. Normal metacarpophalangeal joint of the thumb. Normal interphalangeal joint of the thumb. Normal proximal and distal phalanges of the thumb. Normal metacarpophalangeal joints of the second through fifth fingers. Normal proximal and distal interphalangeal joints of the second through fifth fingers. Normal phalanges of the second through fifth fingers. The soft tissue structures are unremarkable. RAD/Hand 2 Views IMPRESSION: No erosive or proliferative arthropathy. Electronically Signed: Yoav Long ([place]), at 14:33 EDT ,
--- NOTE | 2022-10-08 11:45 | RAD_ITS ---
STUDY: X-RAY - CERVICAL SPINE REASON FOR EXAM: Female, 56 years old. CERVICALGIA TECHNIQUE: 5 view(s) of the cervical spine were obtained. COMPARISON: None FINDINGS: Normal anterior atlantoaxial articulation. Normal odontoid process. Normal cervical lordosis. There is diffuse demineralization of the cervical spine. Disc heights are relatively preserved. Mild uncovertebral hypertrophy and facet arthropathy. Left C3-C4 and C4-C5 foraminal narrowing and left C4-C5 foraminal narrowing due to uncovertebral hypertrophy. The soft tissue structures are unremarkable. RAD/Cerv Spine 4 or 5 Views IMPRESSION: Facet arthropathy uncovertebral hypertrophy with foraminal narrowing as above. Electronically Signed: Yoav Long ([place]), at 14:38 EDT ,
[2022-10-08 12:11] LABS: Erythrocyte Sedimentation Rate 8 mm/hr (0-30)
[2022-10-08 12:46] LABS: CRP < 2.90 mg/L (0.0-3.0); Uric Acid 3.7 mg/dL (2.6-6.0)
== END | disposition home or self-care (01) ==
PROVIDERS: Referring Provider Nurse Practitioner Family; Visit Provider Nurse Practitioner Family
DX: M54.2 Cervicalgia (principal); M25.541 Pain in joints of right hand
CPT/HCPCS: 36415; 72050; 73120; 84550; 85652; 86140; 86431

== ENCOUNTER 2022-11-25 13:53 | Emergency (ER) | payer MEDICAID, SELFPAY ==
[2022-11-25] VITALS (7 sets, daily range): BP systolic 128–144; BP diastolic 66–126; PULSE 86; RESP 14; TEMP 36.7; O2SAT 95–98; BMI 25.8
--- NOTE | 2022-11-25 14:29 | EKG12_ITS ---
Test Reason : GENERAL Blood Pressure : / mmHG Vent. Rate : 086 BPM Atrial Rate : 086 BPM P-R Int : 150 ms QRS Dur : 090 ms QT Int : 396 ms P-R-T Axes : 031 -29 046 degrees QTc Int : 473 ms Normal sinus rhythm Minimal voltage criteria for LVH, may be normal variant ( R in aVL ) Borderline ECG Confirmed by LUZ BURNETT, DEBBY ([id number]), video tape editor LIAM MCCAIN ([id number]) on 11/27/2022 10:20:28 AM Referred By: Confirmed By:DEBBY ESCOBAR MD
--- NOTE | 2022-11-25 14:29 | EDS_ITS ---
HPI History of Present Illness Chief Complaint: General Illness Informant: patient Onset/Context/Timing Onset: Days (4) Context: Gradual Onset Timing: Continuous Narrative Narrative: Patient with nasal congestion, she states her ears popped 4 days ago and have been sore ever since, she has been coughing up green sputum, some shortness of breath that does not necessarily feel like her asthma, no chest discomfort, orthopnea, or pedal edema. Lost her voice since yesterday. She states her joints hurt all over, worse in her fingers. No known sick contacts no travel out of the area recently. [facility] Medical History (Updated 11/25/22 @ 16:[address] Mehrdad Norris MD) Anxiety Asthma Bipolar 1 disorder Degenerative disc disease Depression Diabetes Fibromyalgia GERD (gastroesophageal reflux disease) History of diverticulitis Hx of intestinal obstruction MRSA (methicillin resistant staph aureus) culture positive PTSD (post-traumatic stress disorder) Home Medications metformin 500 mg tablet,extended release 24 hr 500 mg PO BID Check with primary doctor 07/15/21 [History Last Taken 03/06/22 08:00] trazodone 150 mg tablet 225 mg PO QHS anxiety 07/15/21 [History Last Taken 03/05/22 21:00] albuterol sulfate 90 mcg/actuation aerosol inhaler 2 puff inhalation Q6H PRN shortness of breath or wheezing #8.5 grams 07/16/21 [Rx Last Taken 03/06/22 08:00] fluticasone propionate 45 mcg-salmeterol 21 mcg/actuation HFA inhaler (Advair HFA) 2 puff inhalation BID asthma 10/04/21 [History Last Taken 03/06/22 07:30] Benadryl Allergy 25 mg PO BID Check with primary doctor 03/06/22 [History Last Taken 03/06/22 12:00] atorvastatin 40 mg PO DAILY cholesterol 03/06/22 [History Last Taken 03/06/22 08:00] ibuprofen 500 mg PO Q6H PRN PRN Pain 03/06/22 [History Last Taken 03/06/22 08:30] benzonatate 100 mg capsule 200 mg (2 x 100 mg) PO TID #90 caps 03/07/22 [Rx Last Taken Unknown] cyclobenzaprine 10 mg tablet 10 mg PO TID PRN Muscle Spasm #20 TABLETS 06/14/22 [Rx Last Taken Unknown] permethrin 5 % topical cream 1 applic topical Q14D 2 doses #60 grams 07/15/22 [Rx Last Taken Unknown] hydroxyzine HCl 25 mg tablet 25 mg PO BID PRN anxiety 11/04/22 [History Last Taken Unknown] omeprazole 40 mg capsule,delayed release 40 mg PO BID 11/04/22 [History Last Taken Unknown] atorvastatin 40 mg tablet 40 mg PO QHS 11/25/22 [History Last Taken Unknown] prednisone 20 mg tablet 40 mg (2 x 20 mg) PO DAILY 5 days #10 TABLETS 11/25/22 [Rx Last Taken Unknown] Allergy/AdvReac Type Severity Reaction Status Date / Time aminophylline Allergy Swelling Verified 11/25/22 13:54 amphetamine [From Adderall] Allergy Other Verified 11/25/22 13:54 dextroamphetamine Allergy Other Verified 11/25/22 13:54 [From Adderall] Iodinated Contrast Media [CT] Allergy Swelling Verified 11/25/22 13:54 iodine Allergy Swelling Verified 11/25/22 13:54 povidone-iodine Allergy Swelling Verified 11/25/22 13:54 [From Betadine] shellfish derived Allergy Swelling Verified 11/25/22 13:54 Sulfa (Sulfonamide Allergy Swelling Verified 11/25/22 13:54 Antibiotics) tetracycline AdvReac Rash Verified 11/25/22 13:54 Family History Father Diabetes Mother Diabetes Surgical History History of intestinal surgery History of lumpectomy of right breast History of right breast biopsy (~11/2021) Hx of appendectomy Hx of bilateral oophorectomy Hx of hysterectomy Hx of repair of right rotator cuff Social History household members: spouse Smoking Status: Never smoker alcohol intake: never substance use type: does not use ROS ROS ED Constitutional Constitutional ED: Reports chills, fever(s), malaise and subjective Eyes Eyes: Denies change in vision ENT ENT ED: Reports ear pain bilateral, hoarseness, nasal congestion, rhinorrhea and sore throat Cardiovascular Cardiovascular: Denies chest pain, palpitations or racing heartbeat Respiratory/Chest Respiratory/Chest: Reports cough, dyspnea and sputum Gastrointestinal Gastrointestinal: Denies abdominal pain, diarrhea, nausea or vomiting Genitourinary Genitourinary ED: Denies dysuria or hematuria Musculoskeletal Musculoskeletal: Reports arthralgias; Denies back pain or neck pain Integumentary Denies abscess or rash Neurologic Neurologic: Denies headache(s), paresthesias or weakness Psychiatric Psychiatric: Denies depression or suicidal thoughts Endocrine Endocrinology: Denies polydipsia or polyuria EXAM Physical Exam Const Vital Signs: 11/25/22 13:55 11/25/22 14:07 Temperature 98.1 F Temperature Source Temporal Pulse Rate 86 Respiratory Rate 14 Respiratory Effort Normal Non-Labored Respiratory Pattern Normal Blood Pressure 130/66 H Blood Pressure Mean 87 Pulse Ox 97 Oxygen Delivery Method Room Air Positive well nourished and well developed General Appearance ED: well developed and NAD HEENT Reports TM's clear and moist mucous membranes HEENT Narrative: Hoarseness no stridor normocephalic and atraumatic Tympanic Membrane ED: Yes TM's clear Throat: Negative for posterior oropharynx abnormal Eyes PERRL and EOMs intact bilaterally Neck no lymphadenopathy, supple, no meningeal signs and no JVD Chest Wall inspection of chest normal and palpation of chest normal Resp normal respiratory effort and clear to auscultation bilaterally Cardio no murmurs Rate: regular rate; Negative for tachycardic Rhythm: regular rhythm GI normal to inspection, nondistended, normoactive bowel sounds and non-tender Back/Spine no CVA tenderness Extremity normal to inspection and no calf tenderness Extremity Narrative: Full range of motion of all joints without any significant difficulty, no objective evidence of joint swelling or erythema or excessive warmth. General Extremety ED: Negative for edema General Extremity: Negative for edema Neuro oriented x3, CN's II-XII intact bilaterally and no sensory deficits noted Sensorium / Orientation: alert Motor Exam: strength 5/5 throughout Psych mental status grossly normal Skin Skin Narrative: Maculopapular erythematous rash both lower legs anteriorly along with some scabs, stable and chronic per patient. Minor version of this on her mid back as well. No petechia, no bullae, no purpuric rashes. Lesions: no lesions MDM MDM MDM Narrative Medical decision making narrative: Consistent with a viral syndrome given patient has clear lungs, normal exam, and symptoms of subjective fevers, aches, a cough productive of green sputum. Labs obtained to rule out cardiac process, anemia, renal failure. This was all normal including a BNP of 23.4. Chest x-ray 2 views of my interpretation shows chronic changes but no acute pneumonia or pneumothorax. Given all this along with her clinical presentation with hoarseness and a very benign exam otherwise, this is all consistent with viral etiology. We did do COVID and influenza swabs those were both negative. At this time I think it is best to treat her with a 5-day burst of prednisone to treat her as an assumed asthma exacerbation. She is in agreement and asked for a work note as well and will follow-up if worse. Lab Data Attestation: I reviewed the patient's lab results. Labs: Laboratory Results - last 24 hr 11/25/22 14:34 WBC 5.4 RBC 4.25 Hgb 12.7 Hct 37.5 MCV 88.2 MCH 29.9 MCHC 33.9 RDW Std Deviation 41.8 RDW Coeff of Elsi 13.0 Plt Count 234 MPV 8.8 Immature Gran % (Auto) 0.700 Neut % (Auto) 58.5 Lymph % (Auto) 25.2 [place] % (Auto) 8.8 Eos % (Auto) 6.2 H Baso % (Auto) 0.6 Absolute Neuts (auto) 3.1 Absolute Lymphs (auto) 1.35 Nucleated RBC % 0 Sodium 140 Potassium 3.6 Chloride 109 H Carbon Dioxide 28.0 Anion Gap 3 L BUN 7 Creatinine 0.77 Estim Creat Clear Calc 62.99 Est GFR (MDRD) Af Amer 98 Est GFR (MDRD) Non-Af 81 BUN/Creatinine Ratio 9.1 L Glucose 162 H Calcium 8.8 B-Natriuretic Peptide 23.4 Discharge Plan Triage Chief Complaint: General Illness ED Provider: Mehrdad Norris Dx/Rx/DC Orders Clinical Impression: Viral URI with cough, Acute asthma exacerbation Instructions: ED Asthma, Acute (Adult), ED URI, Viral, No Abx (Adult) Prescriptions: New prednisone 20 mg tablet 40 mg PO DAILY 5 Days Qty: 10 0RF No Action hydroxyzine HCl 25 mg tablet 25 mg PO BID PRN Patient Comments: TAKE ONE TABLET BY MOUTH 2-3 TIMES DAILY NEEDED FOR ANXIETY omeprazole 40 mg capsule,delayed release(DR/EC) 40 mg PO BID Patient Comments: TAKE 1 CAPSULE BY MOUTH TWICE DAILY trazodone 150 mg tablet 225 mg PO QHS Patient Comments: take 1 and 1/2 tablet DAILY AT BEDTIME metformin 500 mg tablet extended release 24 hr 500 mg PO BID albuterol sulfate 90 mcg/actuation HFA aerosol inhaler 2 puff inhalation Q6H PRN (Reason: shortness of breath or wheezing) Qty: 8.5 0RF fluticasone propion-salmeterol [Advair HFA] 45-21 mcg/actuation HFA aerosol inhaler 2 puff INHALATION BID atorvastatin 40 mg PO DAILY Benadryl Allergy 25 mg PO BID Rx Instructions: allergies ibuprofen 500 mg PO Q6H PRN PRN (Reason: Pain) benzonatate 100 mg Capsule 200 mg PO TID Qty: 90 0RF cyclobenzaprine [cyclobenzaprine] 10 mg tablet 10 mg PO TID PRN (Reason: Muscle Spasm) Qty: 20 0RF permethrin 5 % cream 1 applic topical Q14D Qty: 60 0RF Rx Instructions: apply second treatment 14 days after first treatment atorvastatin 40 mg tablet 40 mg PO QHS Patient Comments: TAKE ONE TABLET BY MOUTH AT BEDTIME Stand Alone Forms: ED Work / School Excuse Primary Care Provider: Shahida West Referrals: Shahida West [Primary Care Provider] - 1 Week if not improving Disposition Disposition: Home, Self Care
[2022-11-25 14:44] LABS: Absolute Lymphocyte Count 1.35 X10^3/uL (0.83-4.51); Absolute Neutrophil Count 3.1 X10^3/uL (2.0-7.7); Basophil# 0.03 X10^3/uL; Basophil% 0.6 % (0-1); Eosinophil# 0.33 X10^3/uL; Eosinophils% 6.2 % (0-5); Hematocrit 37.5 % (37-47); Hemoglobin 12.7 g/dL (12.0-15.0); Lymphocyte # 1.35 X10^3/ul (0.83-4.51); Lymphocyte % 25.2 % (19-41); Mean Corp Hgb Conc 33.9 g/dL (32-36); Mean Corpuscular Hgb 29.9 pg (27.0-32.0); Mean Corpuscular Volume 88.2 fL (81-99); Mean Platelet Vol. 8.8 fl (6.2-12.0); Monocyte# 0.47 X10^3/uL; Monocyte% 8.8 % (0-10); NRBC Flagged by Analyzer 0 % (0-5); Neutrophil # 3.13 X10^3/uL (2.7-7.7); Neutrophil % 58.5 % (47-70); Platelet Count 234 K/mm3 (150-450); RBC Distribution Width SD 41.8 fl (35.1-43.9); Red Blood Count 4.25 M/mm3 (4.2-5.4); White Blood Count 5.4 K/mm3 (4.4-11.0)
--- NOTE | 2022-11-25 14:45 | RAD_ITS ---
STUDY: X-RAY CHEST REASON FOR EXAM: Female, 56 years old. Cough, sob TECHNIQUE: PA and lateral views of the chest. COMPARISON: Comparison is made with prior study dated December 06, 2022. FINDINGS: Stable mild increased markings at the right lung base suggestive of scarring. There is no demonstrated pleural abnormality. Normal size heart. Normal mediastinum and kirstin. Normal visualized pulmonary arteries. There is atherosclerotic calcification of the aortic arch with tortuosity. There are diffuse degenerative changes of the visualized thoracic spine. Normal visualized ribs, clavicles, and shoulders. There is no demonstrated abnormality of the visualized soft tissue structures of the upper abdomen. RAD/Chest PA and Lateral IMPRESSION: Mild increased markings at the right lung base. This is unchanged. Most likely representing scarring. Electronically Signed: Henrry Barroso MD at 15:05 EDT ,
[2022-11-25 14:56] LABS: Anion Gap 3 (5-15); BUN 7 mg/dL (7-18); BUN/Creat Ratio 9.1 RATIO (10-20); Calcium,Total 8.8 mg/dL (8.5-10.1); Chloride 109 mmol/L (98-107); Creatinine, Serum 0.77 mg/dL (0.55-1.02); EST Glomerular Filtration Rate 81 mL/min (>60); Est Glom Filt Rate - Afr Amer 98 mL/min (>60); Estimated Creatinine Clearance 62.99 ml/min; Glucose 162 mg/dL (74-106); Potassium 3.6 mmol/L (3.5-5.1); Sodium Level 140 mmol/L (136-145)
[2022-11-25 15:06] LABS: BNP,B-Type NATRIURETIC PEPTIDE 23.4 pg/mL (0-100)
== END 2022-11-25 16:54 | disposition home or self-care (01) ==
PROVIDERS: Emergency Provider Emergency Medicine; Visit Provider Emergency Medicine
DX: J06.9 Acute upper respiratory infection, unspecified (principal); E11.9 Type 2 diabetes mellitus without complications; Z20.822 Contact with and (suspected) exposure to COVID-19; M79.7 Fibromyalgia; J45.901 Unspecified asthma with (acute) exacerbation; R49.0 Dysphonia; Z79.84 Long term (current) use of oral hypoglycemic drugs; Z79.899 Other long term (current) drug therapy; R21 Rash and other nonspecific skin eruption
CPT/HCPCS: 71046; 80048; 83880; 85025; 87428; 93005; 99283; A4216

== ENCOUNTER → 2022-12-12 | Outpatient (CLI) | payer MEDICAID, SELFPAY ==
--- NOTE | 2022-12-12 15:45 | RAD_ITS ---
INDICATION: PAIN EXAMINATION/TECHNIQUE: X-RAY - LEFT XR Shoulder Min 2 Views 4 VIEWS COMPARISON: No relevant prior comparison study available FINDINGS: SOFT TISSUES: No soft tissue swelling or gas. No radiopaque foreign body. BONES/JOINTS: No acute fracture or subluxation.. Normal alignment. Moderate degenerative changes of the glenohumeral and acromioclavicular joints.. No sclerotic or destructive changes observed. RAD/Shoulder min 2 Views IMPRESSION: No acute abnormalities. 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 Electronically Signed: Jorge Glover MD at 21:31 EDT ,
== END | disposition home or self-care (01) ==
LOC: RAD 15:35
PROVIDERS: Referring Provider Nurse Practitioner Family; Visit Provider Nurse Practitioner Family
DX: M25.512 Pain in left shoulder (principal)
CPT/HCPCS: 73030

== ENCOUNTER 2023-01-01 11:22 | Emergency (ER) | payer MEDICAID, SELFPAY ==
[2023-01-01 11:23] VITALS: BP 135/80; PULSE 98; RESP 16; TEMP 36.7; O2SAT 100; BMI 27.4
--- NOTE | 2023-01-01 11:43 | CT_ITS ---
STUDY: CT BRAIN WITHOUT CONTRAST REASON FOR EXAM: Female, 57 years old. Headache. Possible infection of a hair follicle. RADIATION DOSAGE (If Supplied By Facility): CTDIvol = ( 44.99 ) mGy, DLP = ( 1159.15 ) mGycm TECHNIQUE: Transaxial CT imaging of the brain was performed without administration of intravenous contrast material. Individualized dose optimization techniques were used for this CT. COMPARISON: Comparison is made with prior study dated March 28, 2022. FINDINGS: Normal soft tissue structures. Normal calvarium. Normal size ventricles and extra-axial spaces for the patient''s age. Normal white matter tracts of the cerebral hemispheres. Normal basal ganglia and thalami. Normal brainstem. Normal cerebellum. There is no intracranial hemorrhage. There are no findings of an acute ischemic infarction. Small air-fluid levels in both maxillary sinuses. Opacification of the ethmoid sinuses with thinning of the bony septations suggestive a chronic component. Left sphenoid sinusitis. CT/Brain/Head without Contrast IMPRESSION: Normal unenhanced CT scan of the brain. Sinusitis. Electronically Signed: Henrry Barroso MD at 12:45 EDT ,
[2023-01-01 12:11] LABS: Absolute Lymphocyte Count 1.61 X10^3/uL (0.83-4.51); Absolute Neutrophil Count 5.1 X10^3/uL (2.0-7.7); Basophil# 0.04 X10^3/uL; Basophil% 0.5 % (0-1); Eosinophil# 0.58 X10^3/uL; Eosinophils% 7.2 % (0-5); Hemoglobin 12.6 g/dL (12.0-15.0); Lymphocyte # 1.61 X10^3/ul (0.83-4.51); Lymphocyte % 20.1 % (19-41); Mean Corp Hgb Conc 32.3 g/dL (32-36); Mean Corpuscular Hgb 29.2 pg (27.0-32.0); Mean Corpuscular Volume 90.3 fL (81-99); Mean Platelet Vol. 8.8 fl (6.2-12.0); Monocyte# 0.66 X10^3/uL; Monocyte% 8.2 % (0-10); NRBC Flagged by Analyzer 0 % (0-5); Neutrophil % 63.6 % (47-70); Platelet Count 215 K/mm3 (150-450); RBC Distribution Width CV 13.3 % (11.6-14.6); RBC Distribution Width SD 44.4 fl (35.1-43.9); Red Blood Count 4.32 M/mm3 (4.2-5.4)
[2023-01-01 12:35] LABS: Anion Gap 7 (5-15); BUN 11 mg/dL (7-18); BUN/Creat Ratio 13.2 RATIO (10-20); Calcium,Total 9.3 mg/dL (8.5-10.1); Chloride 109 mmol/L (98-107); Creatinine, Serum 0.84 mg/dL (0.55-1.02); EST Glomerular Filtration Rate 74 mL/min (>60); Est Glom Filt Rate - Afr Amer 90 mL/min (>60); Estimated Creatinine Clearance 54.42 ml/min; Glucose 112 mg/dL (74-106); Potassium 3.6 mmol/L (3.5-5.1); Sodium Level 140 mmol/L (136-145)
[2023-01-01] MEDS: Clindamycin 900 MG/50 ML BAG 75 MG IV (12:38)
[2023-01-01] MEDS: 0.9% Normal Saline 1,000 ML 999 ML IV (12:38)
[2023-01-01] MEDS: Morphine 4 MG/ML Syringe IV (13:04)
[2023-01-01] MEDS: Ondansetron 4 MG/2 ML Vial IV (13:04)
--- NOTE | 2023-01-01 13:22 | EDS_ITS ---
HPI History of Present Illness Chief Complaint: Abscess Narrative Narrative: 57-year-old female presenting with pain in the scalp in the occiput. She states she had redness here. She admits to a history of MRSA and abscess. She has had cellulitis in the scalp before as well. Patient denies any trauma but states she feels out of sorts now that her pain is increasing. Patient is treated for abscess apparently by the urgent care with Keflex which would not cover for MRSA. Denies fevers or chills. No visual complaints. [facility] Medical History (Updated 01/01/23 @ 13:[address] Aniceto Tillman, DO) Anxiety Asthma Bipolar 1 disorder Degenerative disc disease Depression Diabetes Fibromyalgia GERD (gastroesophageal reflux disease) History of diverticulitis Hx of intestinal obstruction MRSA (methicillin resistant staph aureus) culture positive PTSD (post-traumatic stress disorder) Home Medications metformin 500 mg tablet,extended release 24 hr 500 mg PO BID Check with primary doctor 07/15/21 [History Last Taken 03/06/22 08:00] trazodone 150 mg tablet 225 mg PO QHS anxiety 07/15/21 [History Last Taken 03/05/22 21:00] albuterol sulfate 90 mcg/actuation aerosol inhaler 2 puff inhalation Q6H PRN shortness of breath or wheezing #8.5 grams 07/16/21 [Rx Last Taken 03/06/22 08:00] fluticasone propionate 45 mcg-salmeterol 21 mcg/actuation HFA inhaler (Advair HFA) 2 puff inhalation BID asthma 10/04/21 [History Last Taken 03/06/22 07:30] Benadryl Allergy 25 mg PO BID Check with primary doctor 03/06/22 [History Last Taken 03/06/22 12:00] atorvastatin 40 mg PO DAILY cholesterol 03/06/22 [History Last Taken 03/06/22 08:00] ibuprofen 500 mg PO Q6H PRN PRN Pain 03/06/22 [History Last Taken 03/06/22 08:30] benzonatate 100 mg capsule 200 mg (2 x 100 mg) PO TID #90 caps 03/07/22 [Rx Last Taken Unknown] cyclobenzaprine 10 mg tablet 10 mg PO TID PRN Muscle Spasm #20 TABLETS 06/14/22 [Rx Last Taken Unknown] permethrin 5 % topical cream 1 applic topical Q14D 2 doses #60 grams 07/15/22 [Rx Last Taken Unknown] hydroxyzine HCl 25 mg tablet 25 mg PO BID PRN anxiety 11/04/22 [History Last Taken Unknown] omeprazole 40 mg capsule,delayed release 40 mg PO BID 11/04/22 [History Last Taken Unknown] atorvastatin 40 mg tablet 40 mg PO QHS 11/25/22 [History Last Taken Unknown] prednisone 20 mg tablet 40 mg (2 x 20 mg) PO DAILY 5 days #10 TABLETS 11/25/22 [Rx Last Taken Unknown] clindamycin HCl 150 mg capsule 450 mg (3 x 150 mg) PO TID 10 days #90 caps 01/01/23 [Rx Last Taken Unknown] hydrocodone-acetaminophen 5-325mg 5mg-325mg 1 tab PO Q4H PRN PRN Pain 3 days #10 TABLETS 01/01/23 [Rx Last Taken Unknown] Allergy/AdvReac Type Severity Reaction Status Date / Time aminophylline Allergy Swelling Verified 11/25/22 13:54 amphetamine [From Adderall] Allergy Other Verified 11/25/22 13:54 dextroamphetamine Allergy Other Verified 11/25/22 13:54 [From Adderall] Iodinated Contrast Media [CT] Allergy Swelling Verified 11/25/22 13:54 iodine Allergy Swelling Verified 11/25/22 13:54 povidone-iodine Allergy Swelling Verified 11/25/22 13:54 [From Betadine] shellfish derived Allergy Swelling Verified 11/25/22 13:54 Sulfa (Sulfonamide Allergy Swelling Verified 11/25/22 13:54 Antibiotics) allantoin [From Blistex] AdvReac Swelling Verified 01/01/23 11:26 aloe vera [From Blistex] AdvReac Swelling Verified 01/01/23 11:26 camphor [From Blistex] AdvReac Swelling Verified 01/01/23 11:26 chamomile flower AdvReac Swelling Verified 01/01/23 11:26 [From Blistex] dimethicone [From Blistex] AdvReac Swelling Verified 01/01/23 11:26 herbal complex no.57 AdvReac Swelling Verified 01/01/23 11:26 [From Blistex] homosalate [From Blistex] AdvReac Swelling Verified 01/01/23 11:26 menthol [From Blistex] AdvReac Swelling Verified 01/01/23 11:26 meradimate [From Blistex] AdvReac Swelling Verified 01/01/23 11:26 octinoxate [From Blistex] AdvReac Swelling Verified 01/01/23 11:26 octyl salicylate AdvReac Swelling Verified 01/01/23 11:26 [From Blistex] oxybenzone [From Blistex] AdvReac Swelling Verified 01/01/23 11:26 padimate O [From Blistex] AdvReac Swelling Verified 01/01/23 11:26 petrolatum,hydrophilic AdvReac Swelling Verified 01/01/23 11:26 [From Blistex] phenol [From Blistex] AdvReac Swelling Verified 01/01/23 11:26 tetracycline AdvReac Rash Verified 11/25/22 13:54 Family History Father Diabetes Mother Diabetes Surgical History History of intestinal surgery History of lumpectomy of right breast History of right breast biopsy (~11/2021) Hx of appendectomy Hx of bilateral oophorectomy Hx of hysterectomy Hx of repair of right rotator cuff Social History household members: spouse Smoking Status: Never smoker alcohol intake: never substance use type: does not use ROS ROS ED Constitutional Constitutional ED: Denies chills, fever(s) or sweats Eyes Eyes: Denies blurry vision or change in vision ENT ENT ED: Denies ear pain or sore throat Cardiovascular Cardiovascular: Denies chest pain, palpitations or racing heartbeat Respiratory/Chest Respiratory/Chest: Denies cough, dyspnea or sputum Gastrointestinal Gastrointestinal: Denies abdominal pain, constipation, diarrhea, nausea or vomiting Genitourinary Genitourinary ED: Denies dysuria, hematuria or urinary frequency Musculoskeletal Musculoskeletal: Denies arthralgias, myalgias or neck pain Integumentary Reports rash and other Details: Scalp rash ; Denies abscess or Abrasions Neurologic Neurologic: Denies headache(s), paresthesias or weakness Psychiatric Psychiatric: Denies anxiety, depression, suicidal ideation or suicidal thoughts Endocrine Endocrinology: Denies polydipsia or polyuria EXAM Physical Exam Const Vital Signs: 01/01/23 11:23 Temperature 98.1 F Temperature Source Temporal Pulse Rate 98 Respiratory Rate 16 Blood Pressure 135/80 H Blood Pressure Mean 98 Pulse Ox 100 Oxygen Delivery Method Room Air Positive well nourished General Appearance ED: NAD; Negative for pallor HEENT Reports moist mucous membranes Neck no lymphadenopathy and supple Chest Wall inspection of chest normal Resp normal respiratory effort Cardio regular rate and regular rhythm Neuro oriented x3 and CN's II-XII intact bilaterally Sensorium / Orientation: alert Skin Skin Narrative: Erythema, warmth, tenderness over the occiput mostly on the left side without evidence of abscess or fluctuance. General Skin Exam: Negative for jaundice or pallor MDM MDM MDM Narrative Medical decision making narrative: Patient appears to be presenting with cellulitis on her scalp. She is concerned she had abscess because this is what she was told by urgent care. She has been on Keflex which would not cover for MRSA which she does have a history of. She is given a dose of clindamycin IV here in the ED. I obtained basic lab work which included a CBC and BMP which were completely normal. Patient given morphine Zofran for pain. CT of the brain was obtained and shows no evidence of abscess or acute abnormality. Given this I will discharge the patient home on [place] and clindamycin since he is allergic to sulfa. Return precautions discussed. Impression: 1. Scalp cellulitis Lab Data Labs: Laboratory Results - last 24 hr 01/01/23 12:00 WBC 8.0 RBC 4.32 Hgb 12.6 Hct 39.0 MCV 90.3 MCH 29.2 MCHC 32.3 RDW Std Deviation 44.4 H RDW Coeff of Elsi 13.3 Plt Count 215 MPV 8.8 Immature Gran % (Auto) 0.400 Neut % (Auto) 63.6 Lymph % (Auto) 20.1 [place] % (Auto) 8.2 Eos % (Auto) 7.2 H Baso % (Auto) 0.5 Absolute Neuts (auto) 5.1 Absolute Lymphs (auto) 1.61 Nucleated RBC % 0 Sodium 140 Potassium 3.6 Chloride 109 H Carbon Dioxide 24.0 Anion Gap 7 BUN 11 Creatinine 0.84 Estim Creat Clear Calc 54.42 Est GFR (MDRD) Af Amer 90 Est GFR (MDRD) Non-Af 74 BUN/Creatinine Ratio 13.2 Glucose 112 H Calcium 9.3 Radiography Diagnostic Testing: Clinical Impression(s) from Imaging Studies Brain CT 01/01/23 11:43 IMPRESSION: Normal unenhanced CT scan of the brain. Sinusitis. Electronically Signed: Henrry Barroso MD at 12:45 EDT , Discharge Plan Triage Chief Complaint: Abscess ED Provider: Aniceto Tillman Dx/Rx/DC Orders Instructions: ED Cellulitis Prescriptions: New hydrocodone-acetaminophen 5-325 mg tablet 1 tab PO Q4H PRN PRN (Reason: Pain) 3 Days Qty: 10 0RF clindamycin HCl 150 mg capsule 450 mg PO TID 10 Days Qty: 90 0RF No Action hydroxyzine HCl 25 mg tablet 25 mg PO BID PRN Patient Comments: TAKE ONE TABLET BY MOUTH 2-3 TIMES DAILY NEEDED FOR ANXIETY omeprazole 40 mg capsule,delayed release(DR/EC) 40 mg PO BID Patient Comments: TAKE 1 CAPSULE BY MOUTH TWICE DAILY trazodone 150 mg tablet 225 mg PO QHS Patient Comments: take 1 and 1/2 tablet DAILY AT BEDTIME metformin 500 mg tablet extended release 24 hr 500 mg PO BID albuterol sulfate 90 mcg/actuation HFA aerosol inhaler 2 puff inhalation Q6H PRN (Reason: shortness of breath or wheezing) Qty: 8.5 0RF fluticasone propion-salmeterol [Advair HFA] 45-21 mcg/actuation HFA aerosol inhaler 2 puff INHALATION BID atorvastatin 40 mg PO DAILY Benadryl Allergy 25 mg PO BID Rx Instructions: allergies ibuprofen 500 mg PO Q6H PRN PRN (Reason: Pain) benzonatate 100 mg Capsule 200 mg PO TID Qty: 90 0RF cyclobenzaprine [cyclobenzaprine] 10 mg tablet 10 mg PO TID PRN (Reason: Muscle Spasm) Qty: 20 0RF permethrin 5 % cream 1 applic topical Q14D Qty: 60 0RF Rx Instructions: apply second treatment 14 days after first treatment atorvastatin 40 mg tablet 40 mg PO QHS Patient Comments: TAKE ONE TABLET BY MOUTH AT BEDTIME prednisone 20 mg tablet 40 mg PO DAILY 5 Days Qty: 10 0RF Primary Care Provider: Shahida West Referrals: Shahida West [Primary Care Provider] - Disposition Disposition: Home, Self Care
== END 2023-01-01 14:14 | disposition home or self-care (01) ==
PROVIDERS: Emergency Provider Student in an Organized Health Care Education/Training Program; Visit Provider Student in an Organized Health Care Education/Training Program
DX: L03.811 Cellulitis of head [any part, except face] (principal); F31.9 Bipolar disorder, unspecified; E11.9 Type 2 diabetes mellitus without complications; F41.9 Anxiety disorder, unspecified; J45.909 Unspecified asthma, uncomplicated; M79.7 Fibromyalgia; K21.9 Gastro-esophageal reflux disease without esophagitis; Z79.84 Long term (current) use of oral hypoglycemic drugs; Z79.899 Other long term (current) drug therapy; Z88.2 Allergy status to sulfonamides; Z86.14 Personal history of Methicillin resistant Staphylococcus aureus infection
CPT/HCPCS: 70450; 80048; 85025; 96365; 96366; 96375; 99283; J7030; A4216; J2405

== ENCOUNTER → 2023-02-19 | Outpatient (CLI) | payer MEDICAID, SELFPAY ==
--- NOTE | 2023-02-19 15:15 | NEURO_ITS ---
NCS and/or EMG Patient Report Ordering Doctor: Taylor Fields NP DATE OF SERVICE: 02/19/23 Rose presents for electrodiagnostic testing of the upper limbs. She reports numbness and tingling in the hands for the past 4 months. She has history of diabetes. Electrodiagnostic findings: Median motor nerve demonstrates normal distal latency, amplitude and conduction velocity bilaterally. Normal ulnar motor response bilaterally. Normal median and ulnar F waves. Prolonged median sensory latency at the wrist bilaterally. Normal ulnar and radial sensory responses. Normal median ulnar F waves. Prolonged median sensory latency at the wrist bilaterally. Normal ulnar and radial sensory responses. Needle EMG testing was performed in the upper limbs. All muscles tested showed no evidence of denervation with normal motor unit action potentials. Electrodiagnostic impression: This is an abnormal study in the upper limbs. 1. Electrodiagnostic findings suggestive of bilateral median mononeuropathy. This is consistent with a mild bilateral carpal tunnel syndrome. 2. No electrodiagnostic evidence is noted for cervical radiculopathy. Multi Select Codes Neurology Neurology Interp Codes: 23310-34 Musc test done w/n test comp (interp) (2) and 27017-31 [facility] cndj test 13/> studies (interp)
== END | disposition home or self-care (01) ==
PROVIDERS: Referring Provider Nurse Practitioner Family; Visit Provider Nurse Practitioner Family
DX: E11.42 Type 2 diabetes mellitus with diabetic polyneuropathy (principal)
CPT/HCPCS: 95886; 95913

== ENCOUNTER 2023-02-28 12:38 | Emergency (ER) | payer MEDICAID, SELFPAY ==
[2023-02-28 12:39] VITALS: BP 154/86; PULSE 103; RESP 16; TEMP 36.5; O2SAT 100; BMI 25.7
[2023-02-28 13:07] LABS: Bacteria 0 SEEN /hpf (None Seen); Mucous, Urine 0 SEEN /hpf (<or=2+); Red Blood Cells-Urine 0 SEEN /hpf (0-5); White Blood Cells 0 SEEN /hpf (0-5)
[2023-02-28 13:11] LABS: Color, Urine Yellow (Yellow); Glucose, Dipstick 50 mg/dl (Normal); Ketone-Dipstick Negative (Negative); Leukocyte Esterase-Dipstick Negative /ul (Negative); Nitrite-Dipstick Negative (Negative); Occult Blood-Urine Negative /ul (Negative); Protein-Dipstick 15 mg/dl (Negative); Urine Bilirubin Dipstick Negative (Negative); Urine Clarity Sl. Cloudy (Clear); Urine Urobilinogen Normal (Normal)
--- NOTE | 2023-02-28 13:13 | ED.VIS.BACK ---
HPI History of Present Illness Chief Complaint: Back Narrative Narrative: 57-year-old female with back pain. She does have some chronic back pain. She states she rolled out of bed today and heard a pop. She states it radiates from her back into her hip. She think she might of dislocated and relocated her left hip. She has been able to walk on it today. No numbness or tingling. No loss of bladder bowel control. No saddle anesthesia. Patient denies any other direct trauma. Does take Tylenol, Mobic, Percogesic at home and she states is not helping. [facility] Medical History Anxiety Asthma Bipolar 1 disorder Degenerative disc disease Depression Diabetes Fibromyalgia GERD (gastroesophageal reflux disease) History of diverticulitis Hx of intestinal obstruction MRSA (methicillin resistant staph aureus) culture positive PTSD (post-traumatic stress disorder) Home Medications metformin 500 mg tablet,extended release 24 hr 500 mg PO BID Check with primary doctor 07/15/21 [History Last Taken 03/06/22 08:00] trazodone 150 mg tablet 225 mg PO QHS anxiety 07/15/21 [History Last Taken 03/05/22 21:00] albuterol sulfate 90 mcg/actuation aerosol inhaler 2 puff inhalation Q6H PRN shortness of breath or wheezing #8.5 grams 07/16/21 [Rx Last Taken 03/06/22 08:00] fluticasone propionate 45 mcg-salmeterol 21 mcg/actuation HFA inhaler (Advair HFA) 2 puff inhalation BID asthma 10/04/21 [History Last Taken 03/06/22 07:30] Benadryl Allergy 25 mg PO BID Check with primary doctor 03/06/22 [History Last Taken 03/06/22 12:00] atorvastatin 40 mg PO DAILY cholesterol 03/06/22 [History Last Taken 03/06/22 08:00] ibuprofen 500 mg PO Q6H PRN PRN Pain 03/06/22 [History Last Taken 03/06/22 08:30] benzonatate 100 mg capsule 200 mg (2 x 100 mg) PO TID #90 caps 03/07/22 [Rx Last Taken Unknown] cyclobenzaprine 10 mg tablet 10 mg PO TID PRN Muscle Spasm #20 TABLETS 06/14/22 [Rx Last Taken Unknown] permethrin 5 % topical cream 1 applic topical Q14D 2 doses #60 grams 07/15/22 [Rx Last Taken Unknown] hydroxyzine HCl 25 mg tablet 25 mg PO BID PRN anxiety 11/04/22 [History Last Taken Unknown] omeprazole 40 mg capsule,delayed release 40 mg PO BID 11/04/22 [History Last Taken Unknown] atorvastatin 40 mg tablet 40 mg PO QHS 11/25/22 [History Last Taken Unknown] prednisone 20 mg tablet 40 mg (2 x 20 mg) PO DAILY 5 days #10 TABLETS 11/25/22 [Rx Last Taken Unknown] clindamycin HCl 150 mg capsule 450 mg (3 x 150 mg) PO TID 10 days #90 caps 01/01/23 [Rx Last Taken Unknown] hydrocodone-acetaminophen 5-325mg 5mg-325mg 1 tab PO Q4H PRN PRN Pain 3 days #10 TABLETS 01/01/23 [Rx Last Taken Unknown] Allergy/AdvReac Type Severity Reaction Status Date / Time aminophylline Allergy Swelling Verified 02/28/23 12:40 amphetamine [From Adderall] Allergy Other Verified 02/28/23 12:40 dextroamphetamine Allergy Other Verified 02/28/23 12:40 [From Adderall] Iodinated Contrast Media [CT] Allergy Swelling Verified 02/28/23 12:40 iodine Allergy Swelling Verified 02/28/23 12:40 povidone-iodine Allergy Swelling Verified 02/28/23 12:40 [From Betadine] shellfish derived Allergy Swelling Verified 02/28/23 12:40 Sulfa (Sulfonamide Allergy Swelling Verified 02/28/23 12:40 Antibiotics) buspirone [From BuSpar] AdvReac Intermediate Other Verified 02/28/23 12:40 allantoin [From Blistex] AdvReac Swelling Verified 02/28/23 12:40 aloe vera [From Blistex] AdvReac Swelling Verified 02/28/23 12:40 camphor [From Blistex] AdvReac Swelling Verified 02/28/23 12:40 chamomile flower AdvReac Swelling Verified 02/28/23 12:40 [From Blistex] dimethicone [From Blistex] AdvReac Swelling Verified 02/28/23 12:40 herbal complex no.57 AdvReac Swelling Verified 02/28/23 12:40 [From Blistex] homosalate [From Blistex] AdvReac Swelling Verified 02/28/23 12:40 menthol [From Blistex] AdvReac Swelling Verified 02/28/23 12:40 meradimate [From Blistex] AdvReac Swelling Verified 02/28/23 12:40 octinoxate [From Blistex] AdvReac Swelling Verified 02/28/23 12:40 octyl salicylate AdvReac Swelling Verified 02/28/23 12:40 [From Blistex] oxybenzone [From Blistex] AdvReac Swelling Verified 02/28/23 12:40 padimate O [From Blistex] AdvReac Swelling Verified 02/28/23 12:40 petrolatum,hydrophilic AdvReac Swelling Verified 02/28/23 12:40 [From Blistex] phenol [From Blistex] AdvReac Swelling Verified 02/28/23 12:40 tetracycline AdvReac Rash Verified 02/28/23 12:40 Family History Father Diabetes Mother Diabetes Surgical History History of intestinal surgery History of lumpectomy of right breast History of right breast biopsy (~11/2021) Hx of appendectomy Hx of bilateral oophorectomy Hx of hysterectomy Hx of repair of right rotator cuff Social History household members: spouse Smoking Status: Never smoker alcohol intake: never substance use type: does not use ROS ROS ED Constitutional Constitutional ED: Denies chills, fever(s) or sweats Eyes Eyes: Denies blurry vision or change in vision ENT ENT ED: Denies ear pain or sore throat Cardiovascular Cardiovascular: Denies chest pain, palpitations or racing heartbeat Respiratory/Chest Respiratory/Chest: Denies cough, dyspnea or sputum Gastrointestinal Gastrointestinal: Denies abdominal pain, constipation, diarrhea, nausea or vomiting Genitourinary Genitourinary ED: Denies dysuria, hematuria or urinary frequency Musculoskeletal Musculoskeletal: Reports back pain and other Details: Left hip pain ; Denies arthralgias, myalgias or neck pain Integumentary Denies abscess, Abrasions or rash Neurologic Neurologic: Denies headache(s), paresthesias or weakness Psychiatric Psychiatric: Denies anxiety, depression, suicidal ideation or suicidal thoughts Endocrine Endocrinology: Denies polydipsia or polyuria EXAM Physical Exam Const Vital Signs: 02/28/23 12:39 Temperature 97.7 F L Temperature Source Temporal Pulse Rate 103 H Respiratory Rate 16 Blood Pressure 154/86 H Blood Pressure Mean 108 Pulse Ox 100 Oxygen Delivery Method Room Air Positive well nourished General Appearance ED: NAD; Negative for pallor HEENT Reports moist mucous membranes Eyes PERRL and EOMs intact bilaterally Resp normal respiratory effort Effort and Inspection: Negative for pain with movement Cardio regular rate and regular rhythm GI normal to inspection, nondistended, normoactive bowel sounds Back/Spine Back/Spine Narrative: This palpation lower lumbar spine bilaterally. No midline deformity or step-off. Extremity Extremity Narrative: Left hip mildly tender to palpation. Full range of motion. Negative logroll. Patient ambulatory to the bathroom and back. Neuro oriented x3 Sensorium / Orientation: alert Motor Exam: strength 5/5 throughout Skin General Skin Exam: Negative for jaundice or pallor MDM MDM MDM Narrative Medical decision making narrative: Patient presenting with right hip pain and back pain. She is concerned she might of worsened her back pain by rolling out of bed today. She also thinks he may have dislocated her right hip earlier but its apparently in place and was able to ambulate to the bathroom. Negative logroll. Patient is tender to palpation in lower back. We will obtain a lumbar spine x-ray as well as right hip. Patient medicated with Norflex and Toradol. I will obtain a urinalysis to assess for UTI. Differential includes UTI, pyelonephritis, lumbar strain, hip strain. Negative for infection. X-ray of the lumbar spine shows no acute fracture. There is a chronic appearing compression fracture at T12. Hip x-ray on my interpretation shows no acute fracture or subluxation. Patient counseled on findings. I will have her follow-up with pain management. She stable for discharge. She has pain medication at home. Impression: 1. Lumbar strain 2. Hip strain Lab Data Labs: Laboratory Results - last 24 hr 02/28/23 13:05 Urine Color Yellow Urine Clarity Sl. Cloudy Urine pH 5.0 Ur Specific [place] 1.020 Urine Protein 15 H Urine Glucose (UA) 50 H Urine Ketones Negative Urine Occult Blood Negative Urine Nitrite Negative Urine Bilirubin Negative Urine Urobilinogen Normal Ur Leukocyte Esterase Negative Urine RBC 0 SEEN Urine WBC 0 SEEN Ur Squamous Epith Cells 0-5 SEEN Urine Bacteria 0 SEEN Urine Mucus 0 SEEN Radiography Diagnostic Testing: Clinical Impression(s) from Imaging Studies Hip/Pelvis X-Ray 02/28/23 13:40 IMPRESSION: No acute displaced fracture or dislocation identified. Electronically Signed: Leela Villarreal MD at 14:04 EDT Reading Location ID and State: [facility] / [place] Tel , Service support , Lumbar Spine X-Ray 02/28/23 13:40 IMPRESSION: No acute fracture or dislocation identified in the lumbar spine. Unchanged height of chronic mild T12 compression fracture. Mild spondylosis of L5/S1. Electronically Signed: Leela Villarreal MD at 14:04 EDT , Discharge Plan Triage Chief Complaint: Back ED Provider: Aniceto Tillman Dx/Rx/DC Orders Instructions: ED Back Spasm, No Trauma, ED Hip Strain Prescriptions: No Action hydroxyzine HCl 25 mg tablet 25 mg PO BID PRN Patient Comments: TAKE ONE TABLET BY MOUTH 2-3 TIMES DAILY NEEDED FOR ANXIETY omeprazole 40 mg capsule,delayed release(DR/EC) 40 mg PO BID Patient Comments: TAKE 1 CAPSULE BY MOUTH TWICE DAILY trazodone 150 mg tablet 225 mg PO QHS Patient Comments: take 1 and 1/2 tablet DAILY AT BEDTIME metformin 500 mg tablet extended release 24 hr 500 mg PO BID albuterol sulfate 90 mcg/actuation HFA aerosol inhaler 2 puff inhalation Q6H PRN (Reason: shortness of breath or wheezing) Qty: 8.5 0RF fluticasone propion-salmeterol [Advair HFA] 45-21 mcg/actuation HFA aerosol inhaler 2 puff INHALATION BID atorvastatin 40 mg PO DAILY Benadryl Allergy 25 mg PO BID Rx Instructions: allergies ibuprofen 500 mg PO Q6H PRN PRN (Reason: Pain) benzonatate 100 mg Capsule 200 mg PO TID Qty: 90 0RF cyclobenzaprine [cyclobenzaprine] 10 mg tablet 10 mg PO TID PRN (Reason: Muscle Spasm) Qty: 20 0RF permethrin 5 % cream 1 applic topical Q14D Qty: 60 0RF Rx Instructions: apply second treatment 14 days after first treatment atorvastatin 40 mg tablet 40 mg PO QHS Patient Comments: TAKE ONE TABLET BY MOUTH AT BEDTIME prednisone 20 mg tablet 40 mg PO DAILY 5 Days Qty: 10 0RF hydrocodone-acetaminophen 5-325 mg tablet 1 tab PO Q4H PRN PRN (Reason: Pain) 3 Days Qty: 10 0RF clindamycin HCl 150 mg capsule 450 mg PO TID 10 Days Qty: 90 0RF Primary Care Provider: Shahida West Referrals: Shahida West [Primary Care Provider] - Disposition Disposition: Home, Self Care
[2023-02-28 13:21] LABS: Squamous Epithelial Cells - UA 0-5 SEEN /hpf (5-10)
[2023-02-28] MEDS: Orphenadrine 60 MG/2 ML Ampul IM (13:29)
[2023-02-28] MEDS: Ketorolac 15 MG/ML Vial IM (13:29)
--- NOTE | 2023-02-28 13:40 | RAD_ITS ---
HISTORY: pain. TECHNIQUE: XR Hip Unilateral with Pelvis when performed; 2-3 Views. COMPARISON: None. FINDINGS: OSSEOUS STRUCTURES: No acute displaced fracture identified. Note that overlapping bowel shadows may obscure osseous detail. Mineralization unremarkable. JOINT SPACES: No dislocation. Mild degenerative changes of the hips. RAD/HIP, UNI W/ Pelvis 2-3 Views IMPRESSION: No acute displaced fracture or dislocation identified. Electronically Signed: Leela Villarreal MD at 14:04 EDT ,
--- NOTE | 2023-02-28 13:40 | RAD_ITS ---
HISTORY: pain. TECHNIQUE: XR Spine Lumbar 2 or 3 Views. COMPARISON: 11/04/2022. FINDINGS: VERTEBRAE: Unchanged height of mild T12 compression fracture. Lumbar vertebral body heights maintained. Mild degenerative changes of the posterior elements. ALIGNMENT: No significant anterior or posterior subluxation. INTERVERTEBRAL DISCS: Mild degenerative endplate change again seen at L5-S1. SOFT TISSUES: Moderate stool in the colon. RAD/Lumbar Spine 2 or 3 Views IMPRESSION: No acute fracture or dislocation identified in the lumbar spine. Unchanged height of chronic mild T12 compression fracture. Mild spondylosis of L5/S1. Electronically Signed: Leela Villarreal MD at 14:04 EDT ,
[2023-02-28 15:05] VITALS: BP 139/87; PULSE 93; RESP 18; O2SAT 98
== END 2023-02-28 15:15 | disposition home or self-care (01) ==
LOC: ED 15:06
PROVIDERS: Emergency Medicine; Emergency Provider Student in an Organized Health Care Education/Training Program; Visit Provider Student in an Organized Health Care Education/Training Program
DX: S73.101A Unspecified sprain of right hip, initial encounter (principal); M48.56XA Collapsed vertebra, not elsewhere classified, lumbar region, initial encounter for fracture; E11.9 Type 2 diabetes mellitus without complications; S76.011A Strain of muscle, fascia and tendon of right hip, initial encounter; S39.012A Strain of muscle, fascia and tendon of lower back, initial encounter; G89.29 Other chronic pain; W06.XXXA Fall from bed, initial encounter; Z79.84 Long term (current) use of oral hypoglycemic drugs; Z79.899 Other long term (current) drug therapy
CPT/HCPCS: 72100; 73502; 81001; 96372; 99283

== ENCOUNTER → 2023-03-05 | Outpatient (CLI) | payer MEDICAID, SELFPAY ==
--- NOTE | 2023-03-05 14:24 | NEURO ---
NCS and/or EMG Patient Report Ordering Doctor: Taylor Fields NP DATE OF SERVICE: 03/05/23 Rose presents for electrodiagnostic testing of the lower limbs. She reports numbness and tingling in both legs. She reports lower back pain. Electrodiagnostic findings: Left peroneal motor nerve demonstrates normal distal latency, amplitude with significant drop in conduction across the fibular head. Right peroneal motor nerve demonstrates normal distal latency and amplitude with a significant drop in conduction across the fibular head. Tibial motor response is within normal limits bilaterally. Sensory responses are normal. Normal peroneal and tibial F?waves. H-reflex borderline prolonged bilaterally. Needle EMG testing was performed in the lower limbs. All muscles tested showed no evidence of denervation with normal motor unit action potentials Electrodiagnostic impression: This is an abnormal study 1. 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 There is an approximately 60% drop in conduction across the left fibular head and a 40% drop in conduction across the right fibular head. 2. There is no electrodiagnostic evidence for peripheral polyneuropathy. 3. No electrodiagnostic evidence for lumbar radiculopathy. Multi Select Codes Neurology Neurology Interp Codes: 07544-45 Musc test done w/n test comp (interp) (2) and 93606-25 Nrv cndj test 11-12 studies (interp)
== END | disposition home or self-care (01) ==
LOC: PSN 06:11
PROVIDERS: Referring Provider Nurse Practitioner Family; Visit Provider Nurse Practitioner Family
DX: E11.42 Type 2 diabetes mellitus with diabetic polyneuropathy (principal)
CPT/HCPCS: 95886; 95912

== ENCOUNTER 2023-03-25 09:30 | Outpatient (RCR) | payer MEDICAID, SELFPAY ==
--- NOTE | 2023-02-06 10:59 | HP.PTEVAL ---
Patient's Visit Information Visit Information Visit Information: LEAH JERRY is a 57 year old F referred to Physical Therapy by Dr. Ahmet Awad MD with a diagnosis of LOW BACK PAIN WITH SCIATICA. Date of Evaluation: 02/06/23 Physical Therapist: Beverly Mg, PT, Cert MDT Visit Plan Frequency: 2-3x /Week Duration: 4-6 Weeks Plan: *CHECK AUTH NEXT VISIT: RECORD # OF VISITS APPROVED AND EXPIRATION DATE. CHECK CODES APPROVED WITH POC* *H/O MULTIPLE ABOMINAL SURGERIES* AQUATIC THERAPY STARTING VERY SLOWLY DUE TO ADVERSE RESPONSE TO THERAPY IN THE PAST PER PATIENT REPORT. POSTURE CORRECTION/STRENGTHENING, INSTRUCTION IN APPROPRIATE BODY MECHANICS AND ACTIVITY MODIFICATIONS. DLS STARTING WITH A NEUTRAL SPINE PROGRESSING ROM TOLERATED. WINDY LE ROM, STRETCHING AND STRENGTHENING. HEP INSTRUCTION. Subjective Subjective: Work/Leisure: WORKING AT [employer] ABOUT 20 HRS A WK. 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 Disability: NO Present symptoms: LOW BACK AND WINDY LEG PAIN L > RIGHT. PAIN GOES ALL THE WAY DOWN TO FEET. WINDY LE NUMBNESS AND TINGLING TOO MOST OF THE TIME BUT NOT CONSTANT. 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 Symptoms at onset: SEVERE BACK AND LEG PAIN Worse: SITTING STILL, STANDING STILL, LYING ON EITHER SIDE, CAN NOT GET COMFORTABLE IN LYING. LIFTING, WORK. Better: MOIST HEAT AND LYING ON R SIDE ALMOST ON STOMACH. Disturbed sleep: YES Previous history/Previous treatment: NO BACK SURGERY. INJECTIONS 30 YEARS AGO. PT ABOUT 8 TIMES. TENS UNIT. M. RELAXERS. ARTHRITIS PAIN MEDS. AQUATIC THERAPY. 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 Treatment this episode: NO RECENT TREATMENTS EXCEPT FLEXERIL AND TYLONOL ARTHRITIS. DAVIDE PENDING 03/02/23. Coughing/sneezing/straining: POSITIVE Gait: IT HURTS TO WALK BUT I CAN GET FROM POINT A TO POINT B. STATES SHE HAS TO HOLD ON TO THINGS TO GET HER LEGS GOING IN THE MORNING AT FIRST BUT THEN GETS BETTER. Bowel or Bladder Dysfunction: NO Unexplained weight loss: NO Imaging: RECENT LUMBAR X-RAYS: OCTOBER 2022 - FINDINGS: Normal lumbar lordosis. There is no substantial scoliosis. There is a normal alignment of the vertebrae. Normal vertebral bodies and endplates. Mild disc space narrowing throughout the lumbar spine. No acute fracture, there is evidence of a chronic compression fracture affecting the superior endplate of T12 There is atherosclerotic calcification of the abdominal aorta without a demonstrated aneurysm. RAD/Lumbar Spine 2 or 3 Views IMPRESSION: Mild age consistent degenerative changes, no acute findings Chronic compression fracture affecting the superior endplate of T12 PMH FROM [facility] EMR: Anxiety Asthma Bipolar 1 disorder Degenerative disc disease Depression Diabetes Fibromyalgia GERD (gastroesophageal reflux disease) History of diverticulitis Hx of intestinal obstruction MRSA (methicillin resistant staph aureus) culture positive PTSD (post-traumatic stress disorder) History of intestinal surgery History of lumpectomy of right breast History of right breast biopsy ~11/2021 Hx of appendectomy Hx of bilateral oophorectomy Hx of hysterectomy Hx of repair of right rotator cuff OTHER: PATIENT REPORTS SHE REALLY DOESN'T LIKE CHIROPRACTIC AND SHE IS SKEPTICAL ABOUT PT BECAUSE SHE HAS HAD IT SO MANY TIMES IN THE PAST AND SHE DOESN'T LIKE THE PAIN. STATES SHE IS WILLING TO TRY SO SHE CAN GET AN MRI APPROVED TO SEE IF SHE NEEDS BACK SURGERY. PATIENT C/O CHRONIC L HIP DISLOCATING. Objective Objective: Sitting/Standing Posture: INCREASED KYPHOSIS. FH. RSH'S. NORMAL LORDOSIS. NO RELAVANT LATERAL SHIFT. Active Correction of posture: WORSE. ONLY ABLE TO PARTIALLY CORRECT. Other Observations: THIS PATIENT AMBULATES INDEP'LY INTO PT WITHOUT ANY ASSISTIVE DEVICES OR LOB. FAIR CADANCE. SHE REPORTS SHE DOES A LOT OF WALKING AROUND TOWN. STATES SHE WALKS TO AND FROM WORK. SHE IS ABLE TO INDEP'LY TRANSFER FROM SIT TO STAND WITHOUT UE ASSIST. Sensory deficit: DECREASED LLE LIGHT TOUCH SENSATION COMPARED TO R. ROM deficit: TIGHT WINDY HS'S AND GASTROC SOLEUS COMPLEX'S L > R. Motor deficit: R HIP 4/5, KNEE 5/5, ANKLE 5/5. L HIP 4-/5, KNEE 4-/5, ANKLE 5/5. Reflexes: WINDY LE DTR'S 2/3 EXCEPT UNABLE TO ELICIT L QUAD DTR. Dural Signs: POSITIVE LLE Lumbar mvmt loss: flex - MIN ext - MOD R SG - MOD L SG - MOD PATIENT C/O CRUNCHING, STICKING AND PAIN WITH LUMBAR ROM TESTING ALL PLANES. Core strength: POOR Palpation: LUMBAR AND SACRAL TENDERNESS WITH LIGHT PALPATION THROUGHOUT. Balance/Special Test Scores Oswestry Low Back Score: 27 Goals Goal 1:: DECREASE C/O LOW BACK AND LEG SX'S. Goal Time Frame: 4-6 Weeks Goal 2:: IMPROVE PERSONAL CARE, LIFTING, WALKING, SITTING, STANDING, SLEEP, TRAVEL, WORK AND HOMEMAKING FUNCTION Goal Time Frame: 4-6 Weeks Goal 3:: INSTRUCT IN PROPHYLAXIS Goal Time Frame: 4-6 Weeks Anticipated Interventions Patient/Client Instruction: Educate patient on: Condition, Plan of Care and Risk Factors For the Purpose of:: To improve self management Therapeutic Exercise to Include: Strength training, Body mechanics, Postural training, Flexibilty training, Neuromotor development, In an aquatic setting and Dynamic Lumbar Stabilization For the Purpose of:: To decrease pain, To increase ROM, To improve muscle performance and motor function, To increase tolerance to activity/condition/position and To improve ability of physical actions for home/community/work/leisure Text: Thank you for the opportunity to evaluate your patient. For Medicare and Medicare HMO plans, please review the plan of care and approve it. It will need to be FAXED BACK to us at [phone] for Medicare purposes. For Medicare only, by signing this I certify the plan of care. Please let me know if there are questions or concerns regarding this plan of care. Physician Signature: Date:
--- NOTE | 2023-03-20 11:33 | HP.PTREVAL ---
Re-Evaluation Intro: Dr. Ahmet Awad MD, It has been my pleasure to treat LEAH JERRY over the last 2 visits for LOW BACK PAIN WITH SCIATICA. Please see the progress note below for an update on the physical therapy plan of care! Subjective Subjective: PATIENT REPORTS SHE WASN'T ABLE TO COME BACK FOR PT UNTIL NOW BECAUSE SHE GOT SICK AND THEN SHE HAD OPEN SORES ON HER LEGS. SHE REPORTS OPEN SORES FROM DIABETIC PSORIASIS ON HER LEGS, TRUNK AND SOME ON HER ARMS SO WOULD LIKE TO TRY LAND PT INSTEAD. SHE REPORTS APPROX 02/28/23 SHE TURNED WRONG IN BED AND COULDN'T MOVE SO SHE WENT TO THE ED AND DID X-RAYS AND REFERRED HER BACK TO PAIN MGMT. SHE ENDED UP HAVING AN DAVIDE 03/12/23 WITH BENEFIT. SHE REPORTS THEY TOLD HER TO WAIT 3-4 DAYS THEN START PT. SHE REPORTS SHE HAS BEEN IN A LOT OF PAIN BECAUSE SHE HAD HER 11 BOTTOM TEETH PULLED 2 WKS AGO 03/06/23. AFTER HAVING HER TEETH PULLED SHE REPORTS SHE HAD A REACTION TO WHAT THEY PUT IN HER MOUTH. LUMBAR X-RAY 02/28/23: TECHNIQUE: XR Spine Lumbar 2 or 3 Views. COMPARISON: 11/04/2022. FINDINGS: VERTEBRAE: Unchanged height of mild T12 compression fracture. Lumbar vertebral body heights maintained. Mild degenerative changes of the posterior elements. ALIGNMENT: No significant anterior or posterior subluxation. INTERVERTEBRAL DISCS: Mild degenerative endplate change again seen at L5-S1. SOFT TISSUES: Moderate stool in the colon. RAD/Lumbar Spine 2 or 3 Views IMPRESSION: No acute fracture or dislocation identified in the lumbar spine. Unchanged height of chronic mild T12 compression fracture. Mild spondylosis of L5/S1. Electronically Signed: Leela Villarreal MD at 14:04 EDT NOW OFF WORK. PATIENT REPORTS THAT EVER SINCE SHE TWEAKED HER BACK Friday02/28/23 IT HAS BEEN WORSE. SHE ALSO STATES SHE DOESN'T LIKE HOW SHE TALKS RIGHT NOW BECAUSE IT FEELS LIKE SHE STILL HAS Novocain IN HER MOUTH. Objective Objective/Function: PATIENT WAS SEEN TODAY FOR RE-ASSESSMENT OF PROGRESS TOWARD THE SET PT GOALS AND THE NEED FOR FURTHER PHYSICAL THERAPY VS READINESS FOR DISCHARGE. UPON EXAM TODAY: Objective: Sitting/Standing Posture: INCREASED KYPHOSIS. FH. RSH'S. NORMAL LORDOSIS. NO RELAVANT LATERAL SHIFT. Active Correction of posture: WORSE. ONLY ABLE TO PARTIALLY CORRECT. Other Observations: THIS PATIENT AMBULATES INDEP'LY INTO PT WITHOUT ANY ASSISTIVE DEVICES OR LOB. FAIR CADANCE. SHE REPORTS SHE DOES A LOT OF WALKING AROUND TOWN. STATES SHE WALKS TO AND FROM WORK. SHE IS ABLE TO INDEP'LY TRANSFER FROM SIT TO STAND WITHOUT UE ASSIST. Sensory deficit: DECREASED LLE LIGHT TOUCH SENSATION COMPARED TO R. ROM deficit: TIGHT WINDY HS'S AND GASTROC SOLEUS COMPLEX'S L > R. Motor deficit: R HIP 4/5, KNEE 5/5, ANKLE 5/5. L HIP 4-/5, KNEE 4-/5, ANKLE 5/5. Reflexes: WINDY LE DTR'S 2/3 EXCEPT UNABLE TO ELICIT L QUAD DTR. Dural Signs: POSITIVE LLE Lumbar mvmt loss: flex - MIN TO MOD ext - MOD R SG - MOD L SG - MOD PATIENT C/O WIERD CRUMBLING CRACKING AND PAIN WITH LUMBAR ROM TESTING ALL PLANES. Core strength: POOR Palpation: LUMBAR AND SACRAL TENDERNESS WITH LIGHT PALPATION THROUGHOUT. Plan Plan Plan: *H/O MULTIPLE ABOMINAL SURGERIES* LAND THERAPY STARTING VERY SLOWLY DUE TO ADVERSE RESPONSE TO THERAPY IN THE PAST PER PATIENT REPORT. POSTURE CORRECTION/STRENGTHENING, INSTRUCTION IN APPROPRIATE BODY MECHANICS AND ACTIVITY MODIFICATIONS. DLS STARTING WITH A NEUTRAL SPINE PROGRESSING ROM TOLERATED. WINDY LE ROM, STRETCHING AND STRENGTHENING. HEP INSTRUCTION. Balance/Gait/Functional tests Balance/Special Test Scores Oswestry Low Back Score: 27 Goals Goals Goal 1:: DECREASE C/O LOW BACK AND LEG SX'S. Goal Time Frame: 4-6 Weeks Goal 2:: IMPROVE PERSONAL CARE, LIFTING, WALKING, SITTING, STANDING, SLEEP, TRAVEL, WORK AND HOMEMAKING FUNCTION Goal Time Frame: 4-6 Weeks Goal 3:: INSTRUCT IN PROPHYLAXIS Goal Time Frame: 4-6 Weeks Anticipated Interventions Anticipated Interventions Patient/Client Instruction: Educate patient on: Condition, Plan of Care and Risk Factors For the Purpose of:: To improve self management Therapeutic Exercise to Include: Strength training, Body mechanics, Postural training, Flexibilty training, Neuromotor development, In an aquatic setting and Dynamic Lumbar Stabilization For the Purpose of:: To decrease pain, To increase ROM, To improve muscle performance and motor function, To increase tolerance to activity/condition/position and To improve ability of physical actions for home/community/work/leisure Re-Evaluation Ending Re-evaluation ending: Please do not hesitate to contact me at [phone] by phone or if you have questions or concerns regarding this new plan of care! Sincerely, Beverly Mg, PT, Cert MDT
== END 2023-03-25 19:00 | disposition home or self-care (01) ==
LOC: PT 09:30
PROVIDERS: Referring Provider Anesthesiology Pain Medicine; Visit Provider Anesthesiology Pain Medicine
DX: M54.17 Radiculopathy, lumbosacral region (principal); M48.07 Spinal stenosis, lumbosacral region
CPT/HCPCS: 97162; 97164; 97530

== ENCOUNTER 2023-04-23 10:17 | Day surgery (SDC) | payer MEDICAID, SELFPAY ==
[2023-04-23] VITALS (8 sets, daily range): BP systolic 122–134; BP diastolic 67–73; PULSE 81–94; RESP 16–18; TEMP 36.5–37; O2SAT 93–99; BMI 26.6
[2023-04-23] MEDS: Lactated Ringers 1,000 ML 15 ML IV (11:09)
--- NOTE | 2023-04-23 11:12 | PCM.HP.STD ---
HPI - General HPI Narrative ROSE JERRY, is a 57 F who presents for bilateral endoscopic carpal tunnel release. no changes to h and p. ok to proceed, rab and post op pain regime discussed. marked both wrists. pt had a cellulitis in face 2 weeks ago but resolved now, no symptoms. does not appear to have any ongoing infection. MR#: [id number] Acct: [id number] Name: ROSE JERRY Rep #: [id number] : 1965 Provider: Dr. Jonny Marino MD Age/Sex: 57/F Location[place] [facility] [place] Status: Signed Intake Vital Signs 02/29/2312:39 Height 5 ft 2 in Weight: 141 lb BMI 25.7 BP 154/86 H Respiration 16 Pulse 103 H Temp 97.7 F L Temp Source Temporal Pulse Oximetry (%) 100 Intake Visit Reasons: BL HANDS Allergies aminophylline Allergy (Verified 03/11/23 09:55) Swellingamphetamine [From Adderall] Allergy (Verified 03/11/23 09:55) Otherdextroamphetamine [From Adderall] Allergy (Verified 03/11/23 09:55) OtherIodinated Contrast Media [CT] Allergy (Verified 03/11/23 09:55) Swellingiodine Allergy (Verified 03/11/23 09:55) Swellingpovidone-iodine [From Betadine] Allergy (Verified 03/11/23 09:55) Swellingshellfish derived Allergy (Verified 03/11/23 09:55) SwellingSulfa (Sulfonamide Antibiotics) Allergy (Verified 03/11/23 09:55) Swellingbuspirone [From BuSpar] Adverse Reaction (Intermediate, Verified 03/11/23 09:55) Otherallantoin [From Blistex] Adverse Reaction (Verified 03/11/23 09:55) Swellingaloe vera [From Blistex] Adverse Reaction (Verified 03/11/23 09:55) Swellingcamphor [From Blistex] Adverse Reaction (Verified 03/11/23 09:55) Swellingchamomile flower [From Blistex] Adverse Reaction (Verified 03/11/23 09:55) Swellingdimethicone [From Blistex] Adverse Reaction (Verified 03/11/23 09:55) Swellingherbal complex no.57 [From Blistex] Adverse Reaction (Verified 03/11/23 09:55) Swellinghomosalate [From Blistex] Adverse Reaction (Verified 03/11/23 09:55) Swellingmenthol [From Blistex] Adverse Reaction (Verified 03/11/23 09:55) Swellingmeradimate [From Blistex] Adverse Reaction (Verified 03/11/23 09:55) Swellingoctinoxate [From Blistex] Adverse Reaction (Verified 03/11/23 09:55) Swellingoctyl salicylate [From Blistex] Adverse Reaction (Verified 03/11/23 09:55) Swellingoxybenzone [From Blistex] Adverse Reaction (Verified 03/11/23 09:55) Swellingpadimate O [From Blistex] Adverse Reaction (Verified 03/11/23 09:55) Swellingpetrolatum,hydrophilic [From Blistex] Adverse Reaction (Verified 03/11/23 09:55) Swellingphenol [From Blistex] Adverse Reaction (Verified 03/11/23 09:55) Swellingtetracycline Adverse Reaction (Verified 03/11/23 09:55) Rash Medications metformin 500 mg tablet,extended release 24 hr 500 mg PO BID Check with primary doctor 07/15/21 [History Confirmed 03/11/23] trazodone 150 mg tablet 225 mg PO QHS anxiety 07/15/21 [History Confirmed 03/11/23] albuterol sulfate 90 mcg/actuation aerosol inhaler 2 puff inhalation Q6H PRN shortness of breath or wheezing #8.5 grams 07/16/21 [Rx Confirmed 03/11/23] fluticasone propionate 45 mcg-salmeterol 21 mcg/actuation HFA inhaler (Advair HFA) 2 puff inhalation BID asthma 10/04/21 [History Confirmed 03/11/23] ibuprofen 500 mg PO Q6H PRN PRN Pain 03/06/22 [History Confirmed 03/11/23] benzonatate 100 mg capsule 200 mg (2 x 100 mg) PO TID #90 caps 03/07/22 [Rx Confirmed 03/11/23] permethrin 5 % topical cream 1 applic topical Q14D 2 doses #60 grams 07/15/22 [Rx Confirmed 03/11/23] hydroxyzine HCl 25 mg tablet 25 mg PO BID PRN anxiety 06/19/23 [History Confirmed 03/11/23] omeprazole 40 mg capsule,delayed release 40 mg PO BID 11/04/22 [History Confirmed 03/11/23] atorvastatin 40 mg tablet 40 mg PO QHS 11/25/22 [History Confirmed 03/11/23] cetirizine 10 mg tablet mg PO 03/06/23 [History Confirmed 03/11/23] meloxicam 7.5 mg tablet 7.5 mg PO DAILY 03/06/23 [History Confirmed 03/11/23] tizanidine 4 mg tablet 4 mg PO 03/06/23 [History Confirmed 03/11/23] PFSH Medical History (Updated 03/06/23 @ 09:08 by Jonny Marino MD) Anxiety Asthma Bilateral carpal tunnel syndrome Bipolar 1 disorder Degenerative disc disease Depression Diabetes Fibromyalgia GERD (gastroesophageal reflux disease) History of diverticulitis Hx of intestinal obstruction MRSA (methicillin resistant staph aureus) culture positive PTSD (post-traumatic stress disorder) Surgical History History of intestinal surgery History of lumpectomy of right breast History of right breast biopsy (~11/2021) Hx of appendectomy Hx of bilateral oophorectomy Hx of hysterectomy Hx of repair of right rotator cuff Family History Father DiabetesMother Diabetes Social History household members: spouse Smoking Status: Never smoker alcohol intake: never substance use type: does not use HPI BL HANDS Details: Parts of this documentation were recorded by a scribe, this documentation accurately reflects the service provided and the decisions made by me, Dr. Jonny Marino MD 03/11/23 0810. ROSE JERRY is a 57 year old F here today for FU bilat CTS. Wants to proceed with surgery. Had a trial of bracing and nsaids. Left side worse but happening on both sides, thumb and middle finger. Ortho Exam General General: Yes no acute distress Neurologic: Yes alert and Yes oriented x3 Psychologic: Yes reasonable and appropriate Right Wrist/Hand Skin/Wound: Yes CDI, No Swelling, No Ecchymosis, No nail intact and Yes capillary refill normal Right Wrist: Yes ROM-Extension 0-60, ROM-Flexion 0-80, ROM-Pronation 0-80, ROM-Supination 0-90, Tinel's and Phalen's; No CMC Grind, tender to palpate 1st dorsal compartment, tender to palpate carpometacarpal joint, Thenar Atrophy or Hypothenar Atrophy Motor: EPL: 4, FDP-2: 4, 1st Dorsal Interosseous: 4 and APB: 4 Sensation: Radial: I, Ulnar: I and Median: D Left Wrist/Hand Skin/Wound: Yes CDI, No Swelling, No Ecchymosis, Yes nail intact, Yes capillary refill normal and No erythema Left Wrist: Yes ROM-Extension 0-60, Yes ROM-Flexion 0-80, Yes ROM-Pronation 0-80, Yes ROM-Supination 0-90, Yes Tinel's and Yes Phalen's; No tender to palpate 1st dorsal compartment, No Thenar Atrophy and No Hypothenar Atrophy Motor: EPL: 4, FDP-2: 4, 1st Dorsal Interosseous: 4 and APB: 4 Sensation: Radial: I, Ulnar: I and Median: D WRIST: neg tinels both elbows. Supplemental Info NCS and/or EMG Patient Report Ordering Doctor: Taylor Fields NP DATE OF SERVICE: 02/19/23 Rose presents for electrodiagnostic testing of the upper limbs. She reports numbness and tingling in the hands for the past 4 months. She has history of diabetes. Electrodiagnostic findings: Median motor nerve demonstrates normal distal latency, amplitude and conduction velocity bilaterally. Normal ulnar motor response bilaterally. Normal median and ulnar F waves. Prolonged median sensory latency at the wrist bilaterally. Normal ulnar and radial sensory responses. Normal median ulnar F waves. Prolonged median sensory latency at the wrist bilaterally. Normal ulnar and radial sensory responses. Needle EMG testing was performed in the upper limbs. All muscles tested showed no evidence of denervation with normal motor unit action potentials. Electrodiagnostic impression: This is an abnormal study in the upper limbs. 1. Electrodiagnostic findings suggestive of bilateral median mononeuropathy. This is consistent with a mild bilateral carpal tunnel syndrome. 2. No electrodiagnostic evidence is noted for cervical radiculopathy. Coding Level of Care Code Off vis,est,level 4 Diagnoses Bilateral carpal tunnel syndrome G56.03 Assessment and Plan Assessment and Plan (1) Bilateral carpal tunnel syndrome: Status: Acute Plan: 57-year-old female bilateral carpal tunnel syndrome. They concur rest ice anti-inflammatories activity modifications cortisone injections as well as open or endoscopic carpal tunnel release. The patient desires to proceed with surgery in the form of bilateral endoscopic carpal tunnel release. We discussed pros and cons risks and benefits of that as well as recovery 2 weeks to heal the incision 6 weeks before returning to heavy lifting and gripping. Does have glucose control in medical history and some mastitis / abscesses so would increase infection and other risks. Plan for pre op clearance as well. Pros and cons risks and benefits were discussed with the patient including but not limited to infection, pain, stiffness, bleeding, damage to surrounding structures, neurovascular injury, recurrence or retear, failure or wear of hardware or fixation, instability, fracture, deep vein thrombosis and pulmonary embolism, anesthetic risks, , patient dissatisfaction, need for further surgery and other risks. Patient understood and wished to proceed with surgery, and signed the informed consent documentation. [facility] Medical History (Updated 04/08/23 @ 14:58 by Karen Oneal) Anxiety Arthritis Asthma Bilateral carpal tunnel syndrome Bipolar 1 disorder Degenerative disc disease Depression Diabetes Difficulty swallowing Fibromyalgia Gastric reflux GERD (gastroesophageal reflux disease) History of cellulitis History of diverticulitis History of steroid therapy Hx of intestinal obstruction MRSA (methicillin resistant staph aureus) culture positive PTSD (post-traumatic stress disorder) Wears glasses Home Medications metformin 500 mg tablet,extended release 24 hr 500 mg PO DAILY Check with primary doctor 07/15/21 [History Last Taken 03/06/22 08:00] trazodone 150 mg tablet 150 mg PO QHS anxiety 07/15/21 [History Last Taken 03/05/22 21:00] albuterol sulfate 90 mcg/actuation aerosol inhaler 2 puff inhalation Q6H PRN shortness of breath or wheezing #8.5 grams 07/16/21 [Rx Last Taken 04/23/23] fluticasone propionate 45 mcg-salmeterol 21 mcg/actuation HFA inhaler (Advair HFA) 2 puff inhalation BID asthma 10/04/21 [History Last Taken 04/23/23] ibuprofen 500 mg PO Q6H PRN PRN Pain 03/06/22 [History Last Taken 03/06/22 08:30] hydroxyzine HCl 25 mg tablet 25 mg PO BID PRN anxiety 11/04/22 [History Last Taken Unknown] omeprazole 40 mg capsule,delayed release 40 mg PO BID 11/04/22 [History Last Taken 04/23/23] atorvastatin 40 mg tablet 20 mg PO QHS 11/25/22 [History Last Taken Unknown] cetirizine 10 mg tablet 10 mg PO DAILY 03/06/23 [History Last Taken Unknown] meloxicam 7.5 mg tablet 7.5 mg PO DAILY 03/06/23 [History Last Taken Unknown] tizanidine 4 mg tablet 4 mg PO BID 03/06/23 [History Last Taken Unknown] albuterol sulfate 2.5 mg/3 mL (0.083 %) solution for nebulization 2.5 mg inhalation Q4H PRN shortness of breath or wheezing 04/08/23 [History Last Taken Unknown] clindamycin HCl 300 mg capsule (Cleocin HCl) 300 mg PO BID 04/08/23 [History Last Taken Unknown] dulaglutide 0.75 mg/0.5 mL subcutaneous pen injector (Trulicity) 1.5 mg subcut MATA 04/08/23 [History Last Taken Unknown] fluticasone fur. 200 mcg-umeclid 62.5 mcg-vilant 25 mcg inhalat.powder (Trelegy Ellipta) 1 inh inhalation Q24H 04/08/23 [History Last Taken 04/23/23] lanolin alcohols-mineral oil-w.petrolatum-ceresin topical cream (Minerin Creme topical) 1 applic topical DAILY 04/08/23 [History Last Taken Unknown] prednisone 20 mg tablet 20 mg PO BID 04/08/23 [History Last Taken Unknown] sertraline 50 mg tablet 50 mg PO DAILY 04/08/23 [History Last Taken Unknown] tramadol 50 mg tablet 50 mg PO Q6H 04/08/23 [History Last Taken Unknown] Allergy/AdvReac Type Severity Reaction Status Date / Time aminophylline Allergy Swelling Verified 04/23/23 11:04 amphetamine [From Adderall] Allergy Other Verified 04/23/23 11:04 dextroamphetamine Allergy Other Verified 04/23/23 11:04 [From Adderall] Iodinated Contrast Media [CT] Allergy Swelling Verified 04/23/23 11:04 iodine Allergy Swelling Verified 04/23/23 11:04 povidone-iodine Allergy Swelling Verified 04/23/23 11:04 [From Betadine] shellfish derived Allergy Swelling Verified 04/23/23 11:04 Sulfa (Sulfonamide Allergy Swelling Verified 04/23/23 11:04 Antibiotics) buspirone [From BuSpar] AdvReac Intermediate Other Verified 04/23/23 11:04 allantoin [From Blistex] AdvReac Swelling Verified 04/23/23 11:04 aloe vera [From Blistex] AdvReac Swelling Verified 04/23/23 11:04 camphor [From Blistex] AdvReac Swelling Verified 04/23/23 11:04 chamomile flower AdvReac Swelling Verified 04/23/23 11:04 [From Blistex] dimethicone [From Blistex] AdvReac Swelling Verified 04/23/23 11:04 herbal complex no.57 AdvReac Swelling Verified 04/23/23 11:04 [From Blistex] homosalate [From Blistex] AdvReac Swelling Verified 04/23/23 11:04 menthol [From Blistex] AdvReac Swelling Verified 04/23/23 11:04 meradimate [From Blistex] AdvReac Swelling Verified 04/23/23 11:04 octinoxate [From Blistex] AdvReac Swelling Verified 04/23/23 11:04 octyl salicylate AdvReac Swelling Verified 04/23/23 11:04 [From Blistex] oxybenzone [From Blistex] AdvReac Swelling Verified 04/23/23 11:04 padimate O [From Blistex] AdvReac Swelling Verified 04/23/23 11:04 petrolatum,hydrophilic AdvReac Swelling Verified 04/23/23 11:04 [From Blistex] phenol [From Blistex] AdvReac Swelling Verified 04/23/23 11:04 tetracycline AdvReac Rash Verified 04/23/23 11:04 Family History Father Diabetes Mother Diabetes Surgical History (Updated 04/08/23 @ 14:58 by Karen Oneal) History of intestinal surgery History of lumpectomy of right breast History of right breast biopsy (~11/2021) Hx of appendectomy Hx of bilateral oophorectomy Hx of breast surgery Hx of hysterectomy Hx of repair of right rotator cuff Hx of surgical procedure Hx of tooth extraction Social History household members: spouse Smoking Status: Never smoker alcohol intake: never substance use type: does not use Vital Signs Vital Signs Vital Signs: Weight Weight: 141 lb
[2023-04-23 11:34] LABS: Bedside Glucose 116 mg/dL (74-106)
[2023-04-23] MEDS: Cefazolin 2 GM in 0.9% Normal Saline (100mL Bag) 100 ML IV (12:39)
[2023-04-23] MEDS: Bupivacaine 0.25% 30 ML Vial (13:18)
--- NOTE | 2023-04-23 13:27 | PCM.OPRPT ---
Problems Associated Problem List Diagnoses (1) Bilateral carpal tunnel syndrome: Report of Operation Date of Procedure: 04/23/23 Pre-Operative Diagnosis: bilateral carpal tunnel syndrome Post-Operative Diagnosis: same Surgery/Procedure Performed:: bilateral endoscopic carpal tunnel release Surgeon: Jonny Marino Type of Anesthesia: Local MAC Anesthesiologist: Madan Cochran Estimated Blood Loss (mL): 25 Description of Procedure: Patient was brought to the operating room theater.? The patient was administered 2g iv ancef prior to the start of the procedure.? Placed supine on the operating room table.? Anesthesia induced.? SCDs on the legs.? Tourniquet applied bilateral upper operative extremity, appropriately padded. Arm table used. Operative extremities prepped and draped in the usual sterile fashion with chlorhexidine-based prep solution allowing over 3 minutes drying time prior to draping.? Preoperative timeout performed to confirm the site (both wrists) patient and the surgery. Did the left side first. I used the [employer] center line nanoscope endoscopic carpal tunnel kit / technique. 0.25% bupivicaine at incision site. ? Tourniquet not inflated. I made a transverse 2 cm incision in line with the? transverse wrist crease.? This was in line with the fourth digit.? I carried the dissection down through skin and subcutaneous tissue achieved meticulous hemostasis. Just ulnar to palmaris tendon.? I incised the antebrachial fascia.? I passed sequential dilators into the carpal tunnel along the radial border of the Guyon's canal aiming for the fourth digit with the hand in extension. I used a synovial elevator to identify the transverse fibers of the transverse carpal tunnel ligament.? Passed the scope into the carpal tunnel. Once I had identified the full proximal and distal extent of the ligament I fully released the ligament under direct visualization by deploying the blade and slowly withdrawing the scope made sequential passes until I no longer felt tension as well as the entire extent of the ligament was released under direct visualization.? Sounded the tunnel with carmichael tenotomy scissors, complete release, no bands. Pictures taken and saved before and after release. Wound thoroughly irrigated.?Meticulous hemostasis achieved.? Incisions closed with 3-0 nylon for the skin.?Skin was cleaned and dried. adaptic 4x4 gauze and silvina. Performed same procedure on opposite wrist. Patient woken up,? transferred off the operating room table and taken to postanesthetic care unit in stable condition. All sponge needle instrument counts were correct no complications.? Plan for the patient to be discharged home according to day surgery criteria when they are comfortable. Follow-up in the office in 2 days time. Gentle ROM hand and elbow no heavy lifting. cpt 95646 X2 Complications none Admit VTE Documentation VTE Present on Admission: No VTE Mechan Device Prophylaxis: SCD's VTE Pharm Prophylaxis ordered?: No Reason prophylaxis not ordered:: Treatment Not Indicated Procedures Musculoskeletal 20xxx-29xxx: Other Procedure See Report
--- NOTE | 2023-04-23 13:32 | DCINST_ITS ---
Discharge Instructions Diet Discharge Diet: No restrictions Activity Ice area for (Minutes): 10 Lifting Restrictions: no heavy lifting or gripping, ok to use hand for eating and drinking Keep extremity elevated above heart level: Operative Extremity Dressing / Incision Call your doctor if your incision/area has: Continuous Slow Oozing, Sudden Increased Bleeding, Increased Pain/ Swelling, Increased Redness, Foul Smelling Discharge and Swelling at the incision site Remove Dressing in: leave in place till F/U Follow Up Care Please Follow Up With: Jonny Marino MD When: 2 days Test Results: Test results from this visit will be discussed in further detail at your follow- up appointment, if applicable. Discharge Plan Admission Attending Provider: Jonny Marino Primary Care Provider: Shahida West Discharge Orders/Prescriptions Prescriptions: No Action hydroxyzine HCl 25 mg tablet 25 mg PO BID PRN Patient Comments: TAKE ONE TABLET BY MOUTH 2-3 TIMES DAILY NEEDED FOR ANXIETY omeprazole 40 mg capsule,delayed release(DR/EC) 40 mg PO BID Patient Comments: TAKE 1 CAPSULE BY MOUTH TWICE DAILY tizanidine 4 mg tablet 4 mg PO BID Patient Comments: TAKE ONE TABLET BY MOUTH TWICE DAILY NEEDED FOR MUSCLE SPASMS stop cyclobenzaprine meloxicam 7.5 mg tablet 7.5 mg PO DAILY cetirizine 10 mg tablet 10 mg PO DAILY Patient Comments: TAKE ONE TABLET BY MOUTH EVERY DAY trazodone 150 mg tablet 150 mg PO QHS Patient Comments: take 1 and 1/2 tablet DAILY AT BEDTIME metformin 500 mg tablet extended release 24 hr 500 mg PO DAILY albuterol sulfate 90 mcg/actuation HFA aerosol inhaler 2 puff inhalation Q6H PRN (Reason: shortness of breath or wheezing) Qty: 8.5 0RF fluticasone propion-salmeterol [Advair HFA] 45-21 mcg/actuation HFA aerosol inhaler 2 puff INHALATION BID ibuprofen 500 mg PO Q6H PRN PRN (Reason: Pain) atorvastatin 40 mg tablet 20 mg PO QHS Patient Comments: TAKE ONE TABLET BY MOUTH AT BEDTIME albuterol sulfate 2.5 mg /3 mL (0.083 %) solution for nebulization 2.5 mg inhalation Q4H PRN (Reason: shortness of breath or wheezing) Patient Comments: inhale ONE ampule EVERY 4 TO 6 HOURS NEEDED Trelegy Ellipta 200-62.5-25 mcg blister with device 1 inh INHALATION Q24H Patient Comments: INHALE 1 PUFF BY MOUTH EVERY DAY sertraline 50 mg tablet 50 mg PO DAILY Patient Comments: TAKE ONE TABLET BY MOUTH EVERY DAY Minerin Creme Cream 1 applic TOPICAL DAILY Patient Comments: apply to lower legs liberally twice daily Trulicity 0.75 mg/0.5 mL pen injector 1.5 mg SUBCUT MATA Patient Comments: inject 0.75 mg subcutaneous every week as directed clindamycin HCl [Cleocin HCl] 300 mg capsule 300 mg PO BID tramadol 50 mg tablet 50 mg PO Q6H prednisone 20 mg tablet 20 mg PO BID Referrals / Follow Up: Jonny Marino MD [Med Staff - Active Staff] - Shahida West [Primary Care Provider] - Disposition Disposition (needs filled in before D/C Order can be placed): Home, Self Care
[2023-04-23] MEDS: Oxycodone/Apap 5/325 Tablet PO (14:42)
== END 2023-04-23 15:08 | disposition home or self-care (01) ==
LOC: SDC 10:18 → AC 10:20
PROVIDERS: Referring Provider Orthopaedic Surgery Sports Medicine; Visit Provider Orthopaedic Surgery Sports Medicine
PROC: (CPT 29848; principal; 2023-04-23 12:15)
DX: G56.03 Carpal tunnel syndrome, bilateral upper limbs (principal); E11.9 Type 2 diabetes mellitus without complications; Z79.51 Long term (current) use of inhaled steroids; Z79.84 Long term (current) use of oral hypoglycemic drugs; M79.7 Fibromyalgia; Z79.899 Other long term (current) drug therapy; J45.909 Unspecified asthma, uncomplicated; F43.10 Post-traumatic stress disorder, unspecified; Z79.52 Long term (current) use of systemic steroids
CPT/HCPCS: 29848; 01830; 82962; J7120; J2405

== ENCOUNTER → 2023-05-14 | Outpatient (CLI) | payer MEDICAID, SELFPAY ==
--- NOTE | 2023-05-14 09:38 | BI_ITS ---
MAMMOGRAPHY - BILATERAL SCREENING 3-D TOMOSYNTHESIS REASON FOR EXAM: Female, 57 years old. Routine screening PERTINENT HISTORY: Aunts with breast cancer, right breast lump felt by patient.. TECHNIQUE: 2-D mammograms and 3-D Tomosynthesis of the breast (s) were performed. CAD was performed. COMPARISON: 2021 FINDINGS: The breast composition is almost entirely fat. Scattered benign calcifications are seen. No dense spiculated masses or suspicious microcalcifications are identified. No architectural distortion is identified. There is no skin thickening or retraction. There has been no significant change since the prior study. BI/SCRN MAMM (CAD)W/JACQUE BILAT IMPRESSION: No mammographic signs of malignancy. Routine yearly mammograms recommended. ASSESSMENT CATEGORY: BIRADS Category 1: Negative. A letter regarding these results will be sent to the patient by the facility within 30 days. FOLLOW UP RECOMMENDATION: Yearly follow up mammogram recommended. (A) Approximately 10% of breast cancers are not detected by mammography. A normal mammogram should not delay biopsy of a clinically suspicious abnormality. Electronically Signed: Addison Omalley MD at 10:46 EST ,
== END | disposition home or self-care (01) ==
LOC: OPBI 09:35
PROVIDERS: Referring Provider Nurse Practitioner Family; Visit Provider Nurse Practitioner Family
DX: Z12.31 Encounter for screening mammogram for malignant neoplasm of breast (principal)
CPT/HCPCS: 77063; 77067

== ENCOUNTER → 2023-05-27 | Outpatient (CLI) | payer MEDICAID, SELFPAY ==
--- OUTSIDE RECORDS SUMMARY | 2023-05-27 07:28 | XMS RPT_ITS | CCD ---
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 Role Phone Required, No Pcp Unavailable Unavailable Shantal Larsen Unavailable MEDICAL, CLINIC Primary Care Physician Unavailab le PHYSICIAN, NONE Primary Care Physician Unavailab le Unavailable Primary Care Provider Unavailabl e Carolina Pierce MD Primary Care Provider Zaki Clement MD Unavailable Carolina Pierce MD Primary Care Provider Lalo Rubalcava MD, Zaki Unavailable Carolina Pierce MD Primary Care Provider Zaki Clement MD Unavailable ZAKI CLEMENT Attending Unavailable CAROLINA PIERCE Primary Care Unavailable PHYSICIAN, PATIENT UNSURE Primary Care KENNETH Beach Attending Unavailable CARMITA MCKEON Attending Joanne candelario PHYSICIAN, PATIENT UNSURE Primary Care Carolina Sanchez MD Primary Care Provider CAROLINA PIERCE Primary Care Unavailable Allergies Allergy Classification Reported Allergen(s) Allergy Type Date of Onset Reaction(s) Facility Aminophylline (1 source) Aminophylline Drug Allergy Unknown [facility] Amphetamine aspartate / Amphetamine Sulfate / Dextroamphetamine saccharate / Dextroamphetamine Sulfate (1 source) Amphetamine aspartate / Amphetamine Sulfate / Dextroamphetamine saccharate / Dextroamphetamine Sulfate Drug Allergy Unknown [facility] Povidone-Iodine (2 sources) Povidone-Iodine Drug Allergy Unknown [facility] Shellfish (1 source) Shellfish Food Allergy Unknown [facility] Tetracyclines (antibiotic) (1 source) Tetracycline Drug Allergy Unknown [facility] Unclassified (5 sources) Seafood Unknown [facility] (4 sources) Aminophylline; Translations: [aminophylline] Drug Allergy Unknown [facility] Work Phone: Medications Current Medications Medication Drug Class(es) Dates Sig (Normalized) Sig (Original) azithromycin 250 mg oral tablet (1 source) Macrolide Antimicrobial Start: 06-27-2021 End: 07-01-2021 azithromycin 250 mg oral tablet Dose : 250 mg = 1 tab(s), Oral, qDay, X 4 day(s), # 4 tab(s), 0 Refill(s), 07/01/21 17:42:00 EST, Asthma, 68 Start Date: 06/27/21 Stop Date: 07/01/21 Status: Ordered cephalexin 500 mg oral capsule (1 source) Cephalosporin Antibacterial Start: 12-30-2022 End: 01-04-2023 take 1 capsule by mouth four times daily cephALEXin (KEFLEX) 500 mg capsule Take 1 capsule by mouth four times daily for 5 days. 20 capsule 0 12/30/2022 01/04/2023 Active Completed/Discontinued Medications Medication Drug Class(es) Dates Sig (Normalized) Sig (Original) acetaminophen 325 mg / oxyCODONE hydrochloride 5 mg oral tablet (9 sources) Opioid Agonist Start: 12-10-2000 take 1-2 tablets by mouth every four to six hours as needed for pain PERCOCET TABLET 5-325MG PO 1-2 tablets po q 4-6 hrs prn pain 0 12/10/2000 Active Problems Problem Classification Problem Date Documented Date Episodic/Chronic Anxiety disorders (12 sources) Anxiety; Translations: [Panic attack] 08-01-2015 Chronic Asthma (12 sources) Exacerbation of asthma; Translations: [Asthma, unspecified type, with (acute) exacerbation] Onset: 09-19-2020 09-19-2020 Chronic Diabetes mellitus without complication (9 sources) Type 2 diabetes mellitus; Translations: [Type 2 diabetes mellitus without complications] Onset: 08-10-2020 03-21-2014 Chronic Diverticulosis and diverticulitis (4 sources) Diverticulitis 08-01-2015 Chronic Essential hypertension (4 sources) Hypertensive disorder 08-31-2015 Chronic Headache; including migraine (4 sources) Migraine 08-01-2015 Chronic Nausea and vomiting (4 sources) Nausea 08-01-2015 Episodic Osteoarthritis (1 source) Unspecified osteoarthritis, unspecified site; Translations: [Osteoarthritis, unspecified osteoarthritis type, unspecified site] Onset: 12-24-2021 Chronic Other connective tissue disease (4 sources) Fibromyositis 08-01-2015 Episodic Other inflammatory condition of skin (5 sources) Psoriasis; Translations: [Psoriasis, unspecified] Onset: 08-10-2020 12-24-2021 Chronic Other inflammatory condition of skin (1 source) Psoriasis, unspecified; Translations: [Psoriasis] Onset: 12-24-2021 Chronic Other lower respiratory disease (2 sources) Dyspnea 09-19-2020 Episodic Results Test Name Value Interpretation Reference Range Facil ity Vital Signs Date Time Vital Sign Value Performing Clinician Facility 12-30-2022 14:07-0400 Body temperature 98.71 [degF] Carmita Phan [employer] Work Phone: [facility] 12-30-2022 14:07-0400 Body weight 64.59 kg Carmita Phan [employer] Work Phone: [facility] 12-30-2022 14:07-0400 Diastolic blood pressure 66 mm[Hg] Carmita Phan [employer] Work Phone: [facility] 12-30-2022 14:07-0400 Heart rate 118 /min Carmita Phan [employer] Work Phone: [facility] 12-30-2022 14:07-0400 Respiratory rate 18 /min Carmita Phan [employer] Work Phone: [facility] 12-30-2022 14:07-0400 SaO2% (BldA) [Mass fraction] 97 % Carmita Phan [employer] Work Phone: [facility] 12-30-2022 14:07-0400 Systolic blood pressure 169 mm[Hg] Carmita Phan MAHENDRA Work Phone: [facility] 10-16-2021 19:08-0400 Body temperature 97.39 [degF] Zaki Rubalcava MD Work Phone: [facility] 10-16-2021 19:08-0400 Body weight 72.12 kg Zaki Rubalcava MD Work Phone: [facility] 10-16-2021 19:08-0400 Diastolic blood pressure 80 mm[Hg] Zaki Rubalcava MD Work Phone: [facility] 10-16-2021 19:08-0400 Heart rate 105 /min Zaki Rubalcava MD Work Phone: [facility] 10-16-2021 19:08-0400 Respiratory rate 20 /min Zaki Rubalcava MD Work Phone: [facility] 10-16-2021 19:08-0400 SaO2% (BldA) [Mass fraction] 96 % Zaki Rubalcava MD Work Phone: [facility] 10-16-2021 19:08-0400 Systolic blood pressure 118 mm[Hg] Zaki Rubalcava MD Work Phone: [facility] 06-27-2021 16:34-0500 Diastolic blood pressure 90 mm[Hg] DR BRETT MCDONNELL MD [facility] 06-27-2021 16:34-0500 Heart rate 112 /min DR BRETT MCDONNELL MD [facility] 06-27-2021 16:34-0500 Mean blood pressure 102 mm[Hg] DR BRETT MCDONNELL MD [facility] 06-27-2021 16:34-0500 Respiratory rate 24 /min DR BRETT MCDONNELL MD [facility] 06-27-2021 16:34-0500 Systolic blood pressure 126 mm[Hg] DR BRETT MCDONNELL MD [facility] 06-27-2021 16:16-0500 Heart rate 110 /min DR BRETT MCDONNELL MD [facility] 06-27-2021 16:16-0500 Respiratory rate 24 /min DR BRETT MCDONNELL MD [facility] 06-27-2021 15:58-0500 Heart rate 112 /min DR BRETT MCDONNELL MD [facility] 06-27-2021 15:58-0500 Respiratory rate 26 /min DR BRETT MCDONNELL MD [facility] 06-27-2021 15:35-0500 SaO2% (BldA) [Mass fraction] 94 % DR BRETT MCDONNELL MD [facility] 06-27-2021 15:28-0500 Body temperature 98.6 [degF] DR BRETT MCDONNELL MD [facility] 06-27-2021 15:28-0500 Diastolic blood pressure 75 mm[Hg] DR BRETT MCDONNELL MD [facility] 06-27-2021 15:28-0500 Mean blood pressure 96 mm[Hg] DR BRETT MCDONNELL MD [facility] 06-27-2021 15:28-0500 Systolic blood pressure 137 mm[Hg] DR BRETT MCDONNELL MD [facility] 06-07-2021 15:00-0500 Diastolic blood pressure 85 mm[Hg] DR PAULA BENÍTEZ MD [facility] 06-07-2021 15:00-0500 Heart rate 97 /min DR PAULA BENÍTEZ MD [facility] 06-07-2021 15:00-0500 Mean blood pressure 100 mm[Hg] DR PAULA BENÍTEZ MD [facility] 06-07-2021 15:00-0500 Respiratory rate 14 /min DR PAULA BENÍTEZ MD [facility] 06-07-2021 15:00-0500 Systolic blood pressure 130 mm[Hg] DR PAULA BENÍTEZ MD [facility] 06-07-2021 14:21-0500 Heart rate 99 /min DR PAULA BENÍTEZ MD [facility] 06-07-2021 14:21-0500 Respiratory rate 12 /min DR PAULA BENÍTEZ MD [facility] 06-07-2021 13:47-0500 Body temperature 98.24 [degF] DR PAULA BENÍTEZ MD [facility] 06-07-2021 13:47-0500 Diastolic blood pressure 93 mm[Hg] DR PAULA BENÍTEZ MD [facility] 06-07-2021 13:47-0500 Heart rate 111 /min DR PAULA BENÍTEZ MD [facility] 06-07-2021 13:47-0500 Mean blood pressure 113 mm[Hg] DR PAULA BENÍTEZ MD [facility] 06-07-2021 13:47-0500 Respiratory rate 28 /min DR PAULA BENÍTEZ MD [facility] 06-07-2021 13:47-0500 Systolic blood pressure 153 mm[Hg] DR PAULA BENÍTEZ MD [facility] 05-28-2021 16:50-0500 Heart rate 98 /min DR SUSANA KESSLER MD [facility] 05-28-2021 16:50-0500 Respiratory rate 16 /min DR SUSANA KESSLER MD [facility] 05-28-2021 15:36-0500 Body temperature 98.6 [degF] DR SUSANA KESSLER MD [facility] 05-28-2021 15:36-0500 Body weight [address] SUSANA KESSLER MD [facility] 05-28-2021 15:36-0500 Diastolic blood pressure 82 mm[Hg] DR SUSANA KESSLER MD [facility] 05-28-2021 15:36-0500 Heart rate 109 /min DR SUSANA KESSLER MD [facility] 05-28-2021 15:36-0500 Respiratory rate 20 /min DR SUSANA KESSLER MD [facility] 05-28-2021 15:36-0500 Systolic blood pressure 159 mm[Hg] DR SUSANA KESSLER MD [facility] 04-09-2021 06:29-0500 Heart rate 101 /min FIFI HERNANDEZ MD [facility] 04-09-2021 06:29-0500 Respiratory rate 22 /min FIFI HERNANDEZ MD [facility] 04-09-2021 05:56-0500 Heart rate 109 /min FIFI HERNANDEZ MD [facility] 04-09-2021 05:56-0500 Respiratory rate 24 /min FIFI HERNANDEZ MD [facility] 04-09-2021 05:46-0500 Body height 157.5 cm FIFI HERNANDEZ MD [facility] 04-09-2021 05:46-0500 Body temperature 98.42 [degF] IFFI HERNANDEZ MD [facility] 04-09-2021 05:46-0500 Body weight 75 kg FIFI HERNANDEZ MD [facility] 04-09-2021 05:46-0500 Diastolic blood pressure 60 mm[Hg] FIFI HERNANDEZ MD [facility] 04-09-2021 05:46-0500 Systolic blood pressure 116 mm[Hg] FIFI HERNANDEZ MD [facility] 09-19-2020 17:00-0400 Heart rate 94 /min No Pcp Required [facility] 09-19-2020 17:00-0400 Respiratory rate 18 /min No Pcp Required [facility] 09-19-2020 17:00-0400 SaO2% (BldA) [Mass fraction] 95 % No Pcp Required [facility] 09-19-2020 16:00-0400 Diastolic blood pressure 75 mm[Hg] No Pcp Required [facility] 09-19-2020 16:00-0400 Systolic blood pressure 123 mm[Hg] No Pcp Required [facility] 09-19-2020 13:56-0400 Body height 162.5 cm No Pcp Required [facility] 09-19-2020 13:56-0400 Body temperature 98.06 [degF] No Pcp Required [facility] 09-19-2020 13:56-0400 Body weight 70 kg No Pcp Required [facility] Encounters Encounter Date Encounter Type Care Provider Facility Start: 12-30-2022 End: 12-30-2022 ambulatory CAROLINA PIERCE Facility:[facility] Start: 12-30-2022 End: 12-30-2022 Patient encounter procedure Carmita Phan APRN.[employer] Work Phone: [facility] Procedures Date Procedure Procedure Detail Performing Clinician Start: 09-19-2020 End: 09-19-2020 EKG impression Christo I [place] Adhesion (morphologi c abnormality) FIFI HERNANDEZ MD Appendectomy FIFI HERNANDEZ MD Hysterectomy FIFI HERNANDEZ MD Lumpectomy of right breast J OEL MARY BURNETT Rotator cuff includi ng muscles and tendons (body structure) FIFI HERNANDEZ MD Plan of Treatment Date Care Activity Detail Author Start: 05-28-2031 Urine microalbumin profile DTA P,TDAP,TD (2 - Td or Tdap) [facility] Start: 12-25-2023 Hepatitis B screening URINE AL BUMIN:CREATININE RATIO [facility] Start: 12-25-2023 Hepatitis B surface antibody level LDL CHOLESTEROL [facility] Start: 03-27-2023 Hepatitis B surface antibody level LDL CHOLESTEROL [facility] Start: 03-26-2023 Hemoglobin A1c/Hemoglobin.total in Blood HBA1C [facility] Start: 01-17-2023 Influenza vaccination C [facility] Start: 12-24-2022 ANNUAL PCP TEAM NATIONAL RECRUITER NEAL DISEASE VISIT ANNUAL PCP TEAM CHRONIC DISEASE VISIT [facility] Start: 09-24-2022 Hemoglobin A1c/Hemoglobin.total in Blood HBA1C [facility] Start: 05-19-2022 DEPRESSION ASSESSMENT DEPRESSION ASS ESSMENT [facility] Start: 01-17-2022 Influenza vaccination C [facility] Start: 11-11-2021 COVID-19 VACCINE (6 - Pfizer series) COVID-19 VACCINE (6 - Pfizer series) [facility] Start: 10-21-2021 COVID-19 VACCINE (4 - Booster for Pfizer series) COVID-19 VACCINE (4 - Booster for Pfizer series) [facility] Start: 01-17-2021 Influenza vaccination INFLUENZA (#1) [facility] Start: 07-23-2015 PNEUMOCOCCAL (2 - PCV) PNEUMOCOCCAL (2 - PCV) [facility] Start: 12-12-2013 SHINGRIX VACCINE (1 of 2) SHINGRIX V ACCINE (1 of 2) [facility] Start: 12-12-2008 COLOGUARD (FIT-DNA) COLOGUARD (FIT-D NA) [facility] Start: 12-12-2008 Colonoscopy COLONOSCOPY [facility] Start: 12-12-2008 COLORECTAL CANCER SCREENING COLORECTAL CANCER SCREENING [facility] Start: 12-12-[address] COLONOGRAPHY [facility] Start: 12-12-2008 DIABETES SCREEN DIABETES SCREEN [facility] Start: 12-12-2008 FECAL OCCULT BLOOD FECAL OCCULT BLOO D [facility] Start: 12-12-2008 LIPID SCREEN LIPID SCREEN [facility] Start: 12-12-2008 SIGMOIDOSCOPY SIGMOIDOSCOPY [facility] Start: 2003 Mammography MAMMOGRAM [facility] Start: 12-12-1993 HPV TESTING HPV TESTING [facility] Start: 12-12-1984 PAP TESTING PAP TESTING [facility] Start: 12-12-1982 Urine microalbumin profile DTAP,TDAP ,TD (1 - Tdap) [facility] Start: 12-12-1981 Hepatitis B surface antibody level LDL CHOLESTEROL [facility] Start: 12-12-1981 HEPATITIS C SCREENING HEPATITIS C SC REENING [facility] Start: 12-12-1981 HIV SCREENING HIV SCREENING [facility] Start: 12-12-1981 SPIROMETRY SPIROMETRY [facility] Start: 1975 Adult depression scr eening assessment DEPRESSION SCREENING [facility] Start: 12-12-1973 3 comp foot exam completed DIABETIC FOOT EXAM [facility] Start: 12-12-1973 Hepatitis B screening URINE AL BUMIN:CREATININE RATIO [facility] Start: 12-12-1973 Hepatitis C antibody , confirmatory test DILATED RETINAL EXAM [facility] Start: 12-12-1969 PNEUMOCOCCAL (1 - PCV) PNEUMOCOCCAL (1 - PCV) [facility] Start: 12-12-1968 COVID-19 VACCINE (#1) COVID-19 VACCI NE (#1) [facility] Start: 12-12-1968 COVID-19 VACCINE (1) COVID-19 VACCIN E (1) [facility] Start: 12-12-1968 Hemoglobin A1c/Hemoglobin.total in Blood HBA1C [facility] Start: 06-14-1964 COVID-19 VACCINE (#1) COVID-19 VACCI NE (#1) [facility] Start: 1965 HEPATITIS B (1 of 3 - 3-dose series) HEPATITIS B (1 of 3 - 3-dose series) [facility] Immunizations Immunization Date Immunization Notes Care Provider Fa lorin 05-28-2021 tetanus toxoid, redu larisa diphtheria toxoid, and acellular pertussis vaccine, adsorbed; Translations: [Boostrix (Tdap)] DR SUSANA KESSLER MD [facility] 02-16-2021 influenza, seasonal, injectable Carmita Phan [employer] Work Phone: [facility] 02-28-2020 influenza, seasonal, injectable Carmita Hpan [employer] Work Phone: [facility] 05-19-2017 influenza, seasonal, injectable, preservative free Carmita Phan [employer] Work Phone: [facility] 03-05-2016 influenza, seasonal, injectable Carmita Phan [employer] Work Phone: [facility] 05-19-2015 influenza, seasonal, injectable Carmita Phan [employer] Work Phone: [facility] 07-22-2014 pneumococcal polysaccharide vaccine, 23 valent Carmita Phan [employer] Work Phone: [facility] Payers Date Payer Category Payer Unknown [id number] 2021 Medicaid [facility] [id number] 2021-Present [phone] [address] [place] [address] Medicaid [id number] 2021 Medicaid [id number] 2021 Medicaid [id number] 1965 Unknown [id number] 1965 Unknown [id number] Unknown MULTIPLAN\MULTIPLAN Social History Date Type Detail Facility [facility] Tobacco smoking consumption unknown [facility] Start: 04-14-2019 End: 12-30-2022 Never smoked tobacco (finding) [facility] Sex Assigned At Female [facility] Start: 1965 Sex Assigned At Not on file [facility] Start: 12-11-2021 End: 12-24-2021 Exposure to SARS-CoV-2 (event) Not sure [facility] Start: 12-30-2022 Tobacco use and exposure Smokeless tobacco non-user [facility] Start: 05-31-2022 End: 12-30-2022 History of Social function [facility] Start: 05-31-2022 End: 12-30-2022 Tobacco use panel [facility] National Score (1-100), lower number is lower risk 64 [facility] Clinical Notes 04-09-2021 to 12-30-2022 Carmita Phan [employer] - 12/30/2022 2:12 PM EDTGity Lalo Rubalcava MD - 08/18/2022 12:03 AM EDTTelephone Encounter - Marlena W Juan Luis - 08/06/2022 8:15 AM EDT Note Date & Type Note Facility 12-30-2022 Note HNO ID: [id number] Author: Carmita Phan [employer] Service: ? Author Type: Nurse Practitioner Type: Progress Notes Filed: 12/30/2022 2:39 PM Note Text: This note was created using NoteWriter. Subjective Leah David is a 57 year old female. 57 year old female with PMH asthma, DM, and psoriasis presents for multiple complaints. Bilateral hands and feet pain Acute onset one week ago Bilateral upper hands and feet Feels like a skin covering blister on them States pain is constant. States last Friday she was diagnosed with neuropathy by her PCP and referred to pain management. Endorses the Tylenol arthritis is not working and requesting pain medicines today. Knot in head Acute onset 2 night ago Denies trauma or injury Denies fever or chills. Left side +itchy area Painful with touching and laying down. Has been using ice She also has been taking 8 hour arthritis pain relief and flexeril without relief. The history is provided by the patient. No image consultant was used. Musculoskeletal Problem This is a new problem. The current episode started in the past 7 days. The problem occurs constantly. The problem has been waxing and waning. Pertinent negatives include no abdominal pain, anorexia, arthralgias, change in bowel habit, chest pain, chills, congestion, coughing, diaphoresis, fatigue, fever, headaches, joint swelling, myalgias, nausea, neck pain, numbness, rash, sore throat, swollen glands, urinary symptoms, vertigo, visual change, vomiting or weakness. Nothing aggravates the symptoms. She has tried acetaminophen for the symptoms. The treatment provided no relief. PAST MEDICAL HISTORY Diagnosis Date Arthritis Asthma Diabetes (HCC) GERD (gastroesophageal reflux disease) Nodule of apex of right lung Psoriasis No past surgical history on file. ALLERGIES Dextroamphetamine-Amphetamine, Iodine, Povidone-Iodine, Sulfa (Sulfonamide Antibiotics), Beta-Adrenergic Agents, Iodine And Iodide Containing Products, and Tetracycline MEDICATIONS atorvastatin (LIPITOR) 40 mg tablet Take 40 mg by mouth daily at bedtime. cyclobenzaprine (FLEXERIL) 5 mg tablet TAKE ONE TABLET BY MOUTH TWICE DAILY NEEDED FOR muscle pain desonide (TRIDESILON) 0.05 % cream apply topically ONCE DAILY UNDER breast NEEDED FOR itch/irritation TRULICITY 0.75 mg/0.5 mL pen injector inject 0.75 mg subcutaneous every week as directed TRELEGY ELLIPTA 200-62.5-25 mcg inhalation powder Inhale 1 Puff as instructed once daily. hydrOXYzine pamoate (VISTARIL) 25 mg capsule Take 50 mg by mouth. sertraline (ZOLOFT) 50 mg tablet Take 1 tablet by mouth every afternoon. budesonide (PULMICORT) 0.5 mg/2 mL nebulizer solution Inhale 2 mL as instructed. fluticasone-salmeterol HFA (ADVAIR HFA) 45-21 mcg/actuation inhaler Inhale 2 Puffs as instructed twice daily. May substitute for insurance coverage hydrOXYzine HCl (ATARAX) 50 mg tablet omeprazole (PRILOSEC) 40 mg capsule traZODone (DESYREL) 150 mg [address]VACID CAPSULE [address] 30MG PO mineral oilm Clobetasol Propionate (TEMOVATE) 0.05 % external solution Apply 1 application to affected area twice daily. cephALEXin (KEFLEX) 500 mg capsule Take 1 capsule by mouth four times daily for 5 days. albuterol HFA (PROVENTIL HFA, VENTOLIN HFA) 90 mcg/actuation inhaler Inhale 2 Puffs as instructed every 4 hours as needed for wheezing/shortness of breath. metFORMIN ER (GLUCOPHAGE XR) 500 mg 24 hr tablet Take 1 tablet by mouth daily with breakfast. naproxen (NAPROSYN) 500 mg tablet Take 0.5 tablets by mouth once daily as needed (for pain). Take with food amitriptyline (ELAVIL) 10 mg tablet benztropine (COGENTIN) 1 mg tablet citalopram (CELEXA) 40 mg tablet clonazePAM (KLONOPIN) 0.5 mg tablet Take by mouth. (Patient not taking: Reported on 12/24/2021) haloperidol (HALDOL) 5 mg tablet prazosin (MINIPRESS) 1 mg cap WELLBUTRIN SR TABLET SA 150MG PO 1 tab bid (Patient not taking: Reported on 12/24/2021) COMPAZINE SUPP.RECT 5MG RC q 6 h ACCOLATE TABLET 20MG PO 1 bid (Patient not taking: Reported on 12/24/2021) ATIVAN TABLET 1MG PO 1 q 8h (Patient not taking: Reported on 12/24/2021) SERZONE TABLET 150MG PO 1 q am, 2 q hs ZYRTEC TABLET 10MG PO 1 qd (Patient not taking: Reported on 12/24/2021) PERCOCET TABLET 5-325MG PO 1-2 tablets po q 4-6 hrs prn pain (Patient not taking: Reported on 12/24/2021) MINERAL OIL OIL PO 2 tbs.qd (Patient not taking: Reported on 12/24/2021) No family history on file. Social History Tobacco Use Smoking status: Never Smokeless tobacco: Never Substance Use Topics Drug use: Yes Types: Marijuana Review of Systems Constitutional: Negative for chills, diaphoresis, fatigue and fever. HENT: Negative for congestion and sore throat. Respiratory: Negative for apnea, cough, choking and chest tightness. Cardiovascular: Negative for chest pain. Gastrointestinal: Negative for abdominal pain, anorexia, c (more content not included)... [facility] 12-30-2022 History of Presen t illness Narrative This note was created using NoteWriter. Subjective Leah David is a 57 year old female. 57 year old female with PMH asthma, DM, and psoriasis presents for multiple complaints. Bilateral hands and feet pain Acute onset one week ago Bilateral upper hands and feet Feels like a skin covering blister on them States pain is constant. States last Friday she was diagnosed with neuropathy by her PCP and referred to pain management. Endorses the Tylenol arthritis is not working and requesting pain medicines today. Knot in head Acute onset 2 night ago Denies trauma or injury Denies fever or chills. Left side +itchy area Painful with touching and laying down. Has been using ice She also has been taking 8 hour arthritis pain relief and flexeril without relief. The history is provided by the patient. No image consultant was used. Musculoskeletal Problem This is a new problem. The current episode started in the past 7 days. The problem occurs constantly. The problem has been waxing and waning. Pertinent negatives include no abdominal pain, anorexia, arthralgias, change in bowel habit, chest pain, chills, congestion, coughing, diaphoresis, fatigue, fever, headaches, joint swelling, myalgias, nausea, neck pain, numbness, rash, sore throat, swollen glands, urinary symptoms, vertigo, visual change, vomiting or weakness. Nothing aggravates the symptoms. She has tried acetaminophen for the symptoms. The treatment provided no relief. PAST MEDICAL HISTORY Diagnosis Date Arthritis Asthma Diabetes (HCC) GERD (gastroesophageal reflux disease) Nodule of apex of right lung Psoriasis No past surgical history on file. ALLERGIES Dextroamphetamine-Amphetamine, Iodine, Povidone-Iodine, Sulfa (Sulfonamide Antibiotics), Beta-Adrenergic Agents, Iodine And Iodide Containing Products, and Tetracycline MEDICATIONS atorvastatin (LIPITOR) 40 mg tablet Take 40 mg by mouth daily at bedtime. cyclobenzaprine (FLEXERIL) 5 mg tablet TAKE ONE TABLET BY MOUTH TWICE DAILY NEEDED FOR muscle pain desonide (TRIDESILON) 0.05 % cream apply topically ONCE DAILY UNDER breast NEEDED FOR itch/irritation TRULICITY 0.75 mg/0.5 mL pen injector inject 0.75 mg subcutaneous every week as directed TRELEGY ELLIPTA 200-62.5-25 mcg inhalation powder Inhale 1 Puff as instructed once daily. hydrOXYzine pamoate (VISTARIL) 25 mg capsule Take 50 mg by mouth. sertraline (ZOLOFT) 50 mg tablet Take 1 tablet by mouth every afternoon. budesonide (PULMICORT) 0.5 mg/2 mL nebulizer solution Inhale 2 mL as instructed. fluticasone-salmeterol HFA (ADVAIR HFA) 45-21 mcg/actuation inhaler Inhale 2 Puffs as instructed twice daily. May substitute for insurance coverage hydrOXYzine HCl (ATARAX) 50 mg tablet omeprazole (PRILOSEC) 40 mg capsule traZODone (DESYREL) [address]VACID [address]SULE [address] 30MG PO mineral oilm Clobetasol Propionate (TEMOVATE) 0.05 % external solution Apply 1 application to affected area twice daily. cephALEXin (KEFLEX) 500 mg capsule Take 1 capsule by mouth four times daily for 5 days. albuterol HFA (PROVENTIL HFA, VENTOLIN HFA) 90 mcg/actuation inhaler Inhale 2 Puffs as instructed every 4 hours as needed for wheezing/shortness of breath. metFORMIN ER (GLUCOPHAGE XR) 500 mg 24 hr tablet Take 1 tablet by mouth daily with breakfast. naproxen (NAPROSYN) 500 mg tablet Take 0.5 tablets by mouth once daily as needed (for pain). Take with food amitriptyline (ELAVIL) 10 mg tablet benztropine (COGENTIN) 1 mg tablet citalopram (CELEXA) 40 mg tablet clonazePAM (KLONOPIN) 0.5 mg tablet Take by mouth. (Patient not taking: Reported on 12/24/2021) haloperidol (HALDOL) 5 mg tablet prazosin (MINIPRESS) 1 mg cap WELLBUTRIN SR TABLET SA 150MG PO 1 tab bid (Patient not taking: Reported on 12/24/2021) COMPAZINE SUPP.RECT 5MG RC q 6 h ACCOLATE TABLET 20MG PO 1 bid (Patient not taking: Reported on 12/24/2021) ATIVAN TABLET 1MG PO 1 q 8h (Patient not taking: Reported on 12/24/2021) SERZONE TABLET 150MG PO 1 q am, 2 q hs ZYRTEC TABLET 10MG PO 1 qd (Patient not taking: Reported on 12/24/2021) PERCOCET TABLET 5-325MG PO 1-2 tablets po q 4-6 hrs prn pain (Patient not taking: Reported on 12/24/2021) MINERAL OIL OIL PO 2 tbs.qd (Patient not taking: Reported on 12/24/2021) No family history on file. Social History Tobacco Use Smoking status: Never Smokeless tobacco: Never Substance Use Topics Drug use: Yes Types: Marijuana Review of Systems Constitutional: Negative for chills, diaphoresis, fatigue and fever. HENT: Negative for congestion and sore throat. Respiratory: Negative for apnea, cough, choking and chest tightness. Cardiovascular: Negative for chest pain. Gastrointestinal: Negative for abdominal pain, anorexia, change in bowel habit, nausea and vomiting. Musculoskeletal: Negative for arthralgias, joint swelling, myalgias and neck pain. Hand pain Foot pain Skin: Negative for color change, pallor and rash. Neurological: Negative for vertigo, weakness, numbness and headaches. Hematological: Negative for adenopathy. Does not bruise/bleed easily. Psychiatric/Behavioral: Negative for agitation and behavioral problems. Objective BP 169/66 Pulse 118 Temp 37.1 C (98.7 F) Resp 18 Wt 64.6 kg (142 lb 6.4 oz) SpO2 97% BMI 26.05 kg/m Physical Exam Vitals and nursing note reviewed. Constitutional: General: She is not in acute distress. Appearance: Normal appearance. She is normal weight. She is not ill-appearing, toxic-appearing or diaphoretic. HENT: Head: Normocephalic and atraumatic. Comments: Thick scaly raised patches noted throughout cephalic Left posterior occiput with erythema and tenderness. +excoriations noted No abscess No drainage. No streaking. Right Ear: Ear canal and external ear normal. Left Ear: Ear canal and external ear normal. Nose: Nose normal. No congestion or rhinorrhea. Mouth/Throat: Mouth: Mucous membranes are moist. Pharynx: No oropharyngeal exudate or posterior oropharyngeal erythema. Eyes: General: Right eye: No discharge. Left eye: No discharge. Extraocular Movements: Extraocular movements intact. Conjunctiva/sclera: Conjunctivae normal. Pupils: Pupils are equal, round, and reactive to light. Cardiovascular: Rate and Rhythm: Normal rate and regular rhythm. Pulses: Normal pulses. Heart sounds: Normal heart sounds. No murmur heard. No friction rub. Pulmonary: Effort: Pulmonary effort is normal. No respiratory distress. Breath sounds: Normal breath sounds. No stridor. No wheezing, rhonchi or rales. Chest: Chest wall: No tenderness. Abdominal: General: Abdomen is flat. There is no distension. Palpations: Abdomen is soft. There is no mass. Tenderness: There is no abdominal tenderness. There is no right CVA tenderness, left CVA tenderness, guarding or rebound. Hernia: No hernia is present. Musculoskeletal: General: No swelling, tenderness, deformity or signs of injury. Normal range of motion. Cervical back: Normal range of motion and neck supple. No rigidity. Right lower leg: No edema. Left lower leg: No edema. Lymphadenopathy: Cervical: No cervical adenopathy. Skin: General: Skin is warm and dry. Capillary Refill: Capillary refill takes less than 2 seconds. Coloration: Skin is not jaundiced or pale. Findings: No bruising, erythema, lesion or rash. Neurological: General: No focal deficit present. Mental Status: She is alert and oriented to person, place, and time. Cranial Nerves: No cranial nerve deficit. Sensory: No sensory deficit. Motor: No weakness. Coordination: Coordination normal. Gait: Gait normal. Psychiatric: Mood and Affect: Mood normal. Behavior: Behavior normal. Thought Content: Thought content normal. Judgment: Judgment normal. Assessment and Plan ASSESSMENT/PLAN: 1. Type 2 diabetes mellitus with peripheral neuropathy (HCC) - ICD9: 250.60, 357.2, ICD10: E11.42 (primary diagnosis) Patient recently diagnosed with neuropathy PCP is through [facility] She states that she has been referred to pain mgmt, but waiting appt. Requesting Neurontin Discussed with patient that the express care does not prescribe and/or manage controlled substances Encouraged patient to reach out to PCP to help bridge gap 2. Psoriasis - ICD9: 696.1, ICD10: L40.9 History of same Clobetasol provided RX Keflex as patient appears to have onset infection in posterior scalp. Carmita Phan APRN.[employer] documented in this encounter [facility] 08-18-2022 Note HNO ID: [id number] Author: Zaki Rubalcava MD Service: ? Author Type: Resident Type: Progress Notes Filed: 08/19/2022 3:57 PM Note Text: Transfer of Care Note Last Visit: 12/24/21 Patient is a 56-year-old female with past medical history significant for resistant asthma with multiple hospital and ED admission for asthma exacerbation. Her asthma was hard to be controlled secondary to social and financial problems that patient was dealing with. PAST MEDICAL HISTORY Diagnosis Date Arthritis Asthma Diabetes (HCC) GERD (gastroesophageal reflux disease) Nodule of apex of right lung Psoriasis Problems I Manage: 1) Moderate persistent Asthma: poor controlled secondary to social and financial problems 2) DM: NID, Next PCP to check her A1C level on her next visit 3) OA: controlled with Naproxen 250 mg BID 4) Psoriasis: on last visit had a pseuritic eczema on her left leg, improved with Clobetasol, dermatology referral sent, next PCP to f/u Medical problems I co-manage: Depression, anxiety (following psychiatry at [facility]) Problems that we manage that are uncontrolled: asthma , Psoriasis Medications that we Rx and other specialists Rx (provide details on controlled medications): See Documentation of Medications within note Current Outpatient Medications Medication Sig albuterol HFA (PROVENTIL HFA, VENTOLIN HFA) 90 mcg/actuation inhaler Inhale 2 Puffs as instructed every 4 hours as needed for wheezing/shortness of breath. metFORMIN ER (GLUCOPHAGE XR) 500 mg 24 hr tablet Take 1 tablet by mouth daily with breakfast. naproxen (NAPROSYN) 500 mg tablet Take 0.5 tablets by mouth once daily as needed (for pain). Take with food fluticasone-salmeterol HFA (ADVAIR HFA) 45-21 mcg/actuation inhaler Inhale 2 Puffs as instructed twice daily. May substitute for insurance coverage amitriptyline (ELAVIL) 10 mg tablet benztropine (COGENTIN) 1 mg tablet citalopram (CELEXA) 40 mg tablet clonazePAM (KLONOPIN) 0.5 mg tablet Take by mouth. (Patient not taking: Reported on 12/24/2021) haloperidol (HALDOL) 5 mg tablet hydrOXYzine HCl (ATARAX) 50 mg tablet omeprazole (PRILOSEC) 40 mg capsule prazosin (MINIPRESS) 1 mg cap traZODone (DESYREL) 150 [address] PREVACID CAPSULE [address] 30MG PO mineral oilm WELLBUTRIN SR TABLET SA 150MG PO 1 tab bid (Patient not taking: Reported on 12/24/2021) COMPAZINE SUPP.RECT 5MG RC q 6 h ACCOLATE TABLET 20MG PO 1 bid (Patient not taking: Reported on 12/24/2021) ATIVAN TABLET 1MG PO 1 q 8h (Patient not taking: Reported on 12/24/2021) SERZONE TABLET 150MG PO 1 q am, 2 q hs ZYRTEC TABLET 10MG PO 1 qd (Patient not taking: Reported on 12/24/2021) PERCOCET TABLET 5-325MG PO 1-2 tablets po q 4-6 hrs prn pain (Patient not taking: Reported on 12/24/2021) MINERAL OIL OIL PO 2 tbs.qd (Patient not taking: Reported on 12/24/2021) No current facility-administered medications for this visit. Cancer Screen/Preventive health: many of the age appropriate screenings are still pending for financial problems, next PCP to f/u Immunizations HEPATITIS B(1 of 3 - 3-dose series) Never done PNEUMOCOCCAL(1 - PCV) Never done URINE ALBUMIN:CREATININE RATIO Never done DILATED RETINAL EXAM Never done DIABETIC FOOT EXAM Never done SPIROMETRY Never done HEPATITIS C SCREENING Never done HIV SCREENING Never done DTAP,TDAP,TD(1 - Tdap) Never done PAP TESTING Never done HPV TESTING Never done MAMMOGRAM Never done COLORECTAL CANCER SCREENING Never done SHINGRIX VACCINE(1 of 2) Never done COVID-19 VACCINE(4 - Booster for Pfizer series) due on 10/21/2021 DEPRESSION ASSESSMENT Never done ALLERGIES Allergen Reactions Dextroamphetamine-A* Unknown Iodine Unknown Povidone-Iodine Unknown Sulfa (Sulfonamide * Unknown Beta-Adrenergic Age* Iodine And Iodide C* Tetracycline Risk stratification : high risk based on co morbidities Patient barriers: none Recent Labs Hemoglobin A1C Date Value Ref Range Status 03/27/2022 7.3 (H) 4.3 - 5.6 % Final Comment: [place] [employer] guidelines indicate that patients with HgbA1c in the range 5.7-6.4% are at increased risk for development of diabetes, and intervention by lifestyle modification may be beneficial. HgbA1c greater or equal to 6.5% is considered diagnostic of diabetes. complete blood count Glucose (mg/dL) Date Value 03/27/2022 153 Potassium (mmol/L) Date Value 03/27/2022 4.1 Sodium (mmol/L) Date Value 03/27/2022 137 Chloride (mmol/L) Date Value 03/27/2022 105 CO2 (mmol/L) Date Value 03/27/2022 21 Creatinine (mg/dL) Date Value 03/27/2022 0.89 BUN (mg/dL) Date Value 03/27/2022 15 Anion Gap (mmol/L) Date Value 03/27/2022 11 Calcium, Total (mg/dL) Date Value 03/27/2022 9.1 Things to remember : homeless, living with smoker in a car, had insurance and financial issues f (more content not included)... [facility] 08-18-2022 History of Presen t illness Narrative Transfer of Care Note Last Visit: 12/24/21 Patient is a 56-year-old female with past medical history significant for resistant asthma with multiple hospital and ED admission for asthma exacerbation. Her asthma was hard to be controlled secondary to social and financial problems that patient was dealing with. PAST MEDICAL HISTORY Diagnosis Date Arthritis Asthma Diabetes (HCC) GERD (gastroesophageal reflux disease) Nodule of apex of right lung Psoriasis Problems I Manage: 1) Moderate persistent Asthma: poor controlled secondary to social and financial problems 2) DM: NID, Next PCP to check her A1C level on her next visit 3) OA: controlled with Naproxen 250 mg BID 4) Psoriasis: on last visit had a pseuritic eczema on her left leg, improved with Clobetasol, dermatology referral sent, next PCP to f/u Medical problems I co-manage: Depression, anxiety (following psychiatry at [facility]) Problems that we manage that are uncontrolled: asthma , Psoriasis Medications that we Rx and other specialists Rx (provide details on controlled medications): See Documentation of Medications within note Current Outpatient Medications Medication Sig albuterol HFA (PROVENTIL HFA, VENTOLIN HFA) 90 mcg/actuation inhaler Inhale 2 Puffs as instructed every 4 hours as needed for wheezing/shortness of breath. metFORMIN ER (GLUCOPHAGE XR) 500 mg 24 hr tablet Take 1 tablet by mouth daily with breakfast. naproxen (NAPROSYN) 500 mg tablet Take 0.5 tablets by mouth once daily as needed (for pain). Take with food fluticasone-salmeterol HFA (ADVAIR HFA) 45-21 mcg/actuation inhaler Inhale 2 Puffs as instructed twice daily. May substitute for insurance coverage amitriptyline (ELAVIL) 10 mg tablet benztropine (COGENTIN) 1 mg tablet citalopram (CELEXA) 40 mg tablet clonazePAM (KLONOPIN) 0.5 mg tablet Take by mouth. (Patient not taking: Reported on 12/24/2021) haloperidol (HALDOL) 5 mg tablet hydrOXYzine HCl (ATARAX) 50 mg tablet omeprazole (PRILOSEC) 40 mg capsule prazosin (MINIPRESS) 1 mg cap traZODone (DESYREL) 150 [address]VACID [address]LE [address] 30MG PO mineral oilm WELLBUTRIN SR TABLET SA 150MG PO 1 tab bid (Patient not taking: Reported on 12/24/2021) COMPAZINE SUPP.RECT 5MG RC q 6 h ACCOLATE TABLET 20MG PO 1 bid (Patient not taking: Reported on 12/24/2021) ATIVAN TABLET 1MG PO 1 q 8h (Patient not taking: Reported on 12/24/2021) SERZONE TABLET 150MG PO 1 q am, 2 q hs ZYRTEC TABLET 10MG PO 1 qd (Patient not taking: Reported on 12/24/2021) PERCOCET TABLET 5-325MG PO 1-2 tablets po q 4-6 hrs prn pain (Patient not taking: Reported on 12/24/2021) MINERAL OIL OIL PO 2 tbs.qd (Patient not taking: Reported on 12/24/2021) No current facility-administered medications for this visit. Cancer Screen/Preventive health: many of the age appropriate screenings are still pending for financial problems, next PCP to f/u Immunizations HEPATITIS B(1 of 3 - 3-dose series) Never done PNEUMOCOCCAL(1 - PCV) Never done URINE ALBUMIN:CREATININE RATIO Never done DILATED RETINAL EXAM Never done DIABETIC FOOT EXAM Never done SPIROMETRY Never done HEPATITIS C SCREENING Never done HIV SCREENING Never done DTAP,TDAP,TD(1 - Tdap) Never done PAP TESTING Never done HPV TESTING Never done MAMMOGRAM Never done COLORECTAL CANCER SCREENING Never done SHINGRIX VACCINE(1 of 2) Never done COVID-19 VACCINE(4 - Booster for Pfizer series) due on 10/21/2021 DEPRESSION ASSESSMENT Never done ALLERGIES Allergen Reactions Dextroamphetamine-A* Unknown Iodine Unknown Povidone-Iodine Unknown Sulfa (Sulfonamide * Unknown Beta-Adrenergic Age* Iodine And Iodide C* Tetracycline Risk stratification : high risk based on co morbidities Patient barriers: none Recent Labs Hemoglobin A1C Date Value Ref Range Status 03/27/2022 7.3 (H) 4.3 - 5.6 % Final Comment: [place] [employer] guidelines indicate that patients with HgbA1c in the range 5.7-6.4% are at increased risk for development of diabetes, and intervention by lifestyle modification may be beneficial. HgbA1c greater or equal to 6.5% is considered diagnostic of diabetes. complete blood count Glucose (mg/dL) Date Value 03/27/2022 153 Potassium (mmol/L) Date Value 03/27/2022 4.1 Sodium (mmol/L) Date Value 03/27/2022 137 Chloride (mmol/L) Date Value 03/27/2022 105 CO2 (mmol/L) Date Value 03/27/2022 21 Creatinine (mg/dL) Date Value 03/27/2022 0.89 BUN (mg/dL) Date Value 03/27/2022 15 Anion Gap (mmol/L) Date Value 03/27/2022 11 Calcium, Total (mg/dL) Date Value 03/27/2022 9.1 Things to remember : homeless, living with smoker in a car, had insurance and financial issues for buying medications in the past. SDOH: 2/5 Additional Information: please ask every time which medications or referral or screening tests she is able to get/do then order or prescribe, many of the age appropriate screenings are still pending for that reason Pending diagnostics /referrals: dermatology Follow Up HbA1c, dermatology referral, improvement of her asthma symptoms Allergies: Dextroamphetamine-A* Unknown Iodine Unknown Povidone-Iodine Unknown Sulfa (Sulfonamide * Unknown Beta-Adrenergic Age* Iodine And Iodide C* Tetracycline documented in this encounter [facility] 08-06-2022 Miscellaneous Notes Formattin g of this note might be different from the original. Spoke with pt regarding on being a pt, pt states she moved to [place] and no longer will be coming to [facility]. Lm for pt to call office and schedule a appointment if she wants to continue care here. Patient needs follow up appt with pcp Verify if patient still active with our office. documented in this encounter [facility] 12-24-2021 Note HNO ID: [id number] Author: Carolina Pierce MD Service: ? Author Type: Physician Type: Progress Notes Filed: 01/01/2022 8:14 PM Note Text: Leah is a 56 year old female arriving at clinic today for follow-up regarding exacerbation of her resistant asthma. HPI: Patient is a 56-year-old female with past medical history significant for resistant asthma with multiple hospital and ED admission for asthma exacerbation. Her asthma was hard to be controlled secondary to social and financial problems that patient was dealing with. As she started having job and care source helped her for paying her medications, her Asthma was almost controlled. Her last hospital admission was in March 2021. But patient is a still homeless, living with smoker in a car. 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 Patient endorsed since 3-4 weeks ago she started using her nebulizer more and her inhaler does not suppress her shortness of breath anymore. Problems We Manage: Asthma,DM,OA Vital Signs: BP 120/62 Pulse 64 Temp 97.2 Resp 16 Ht 5' 2 (1.58m) Wt 153 lb (69.4kg) SpO2 94% BMI 27.98 kg/(m2). Allergies: ALLERGIES Allergen Reactions Dextroamphetamine-A* Unknown Iodine Unknown Povidone-Iodine Unknown Sulfa (Sulfonamide * Unknown Beta-Adrenergic Age* Iodine And Iodide C* Tetracycline Current Medications: fluticasone-salmeterol HFA (ADVAIR HFA) 45-21 mcg/actuation inhaler Inhale 2 Puffs as instructed twice daily. May substitute for insurance coverage amitriptyline (ELAVIL) 10 mg tablet benztropine (COGENTIN) 1 mg tablet citalopram (CELEXA) 40 mg tablet haloperidol (HALDOL) 5 mg tablet hydrOXYzine HCl (ATARAX) 50 mg tablet omeprazole (PRILOSEC) 40 mg capsule prazosin (MINIPRESS) 1 mg cap traZODone (DESYREL) [address]ID [address]LE [address] 30MG PO mineral oilm albuterol HFA (PROVENTIL HFA, VENTOLIN HFA) 90 mcg/actuation inhaler Inhale 2 Puffs as instructed every 4 hours as needed for wheezing/shortness of breath. metFORMIN ER (GLUCOPHAGE XR) 500 mg 24 hr tablet Take 1 tablet by mouth daily with breakfast. clobetasol (TEMOVATE) 0.05 % cream Apply to affected area once daily as needed. predniSONE (DELTASONE) 20 mg tablet Take 1 tablet by mouth twice daily for 5 days. naproxen (NAPROSYN) 500 mg tablet Take 0.5 tablets by mouth once daily as needed (for pain). Take with food clonazePAM (KLONOPIN) 0.5 mg tablet Take by mouth. (Patient not taking: Reported on 12/24/2021) WELLBUTRIN SR TABLET SA 150MG PO 1 tab bid (Patient not taking: Reported on 12/24/2021) COMPAZINE SUPP.RECT 5MG RC q 6 h ACCOLATE TABLET 20MG PO 1 bid (Patient not taking: Reported on 12/24/2021) ATIVAN TABLET 1MG PO 1 q 8h (Patient not taking: Reported on 12/24/2021) SERZONE TABLET 150MG PO 1 q am, 2 q hs ZYRTEC TABLET 10MG PO 1 qd (Patient not taking: Reported on 12/24/2021) PERCOCET TABLET 5-325MG PO 1-2 tablets po q 4-6 hrs prn pain (Patient not taking: Reported on 12/24/2021) MINERAL OIL OIL PO 2 tbs.qd (Patient not taking: Reported on 12/24/2021) Health Maintenance: Colonoscopy: Vaccination: There is no immunization history on file for this patient. PAST MEDICAL HISTORY Diagnosis Date Arthritis Asthma Diabetes (HCC) GERD (gastroesophageal reflux disease) Nodule of apex of right lung Psoriasis No past surgical history on file. No family history on file. Review of Systems: CONSTITUTIONAL: No fever. No chills. No dizziness. No weakness. EYES: No pain, erythema, or discharge. No blurring of vision. ENT: No sore throat, URI symptoms. No epistaxis. No tinnitus. CARDIOVASCULAR: No chest pain. No palpitations. No lower extremity edema. RESPIRATORY: Increased shortness of breath and cough, no pain with respiration, pleuritic chest pain. No hemoptysis. No dyspnea. No paroxysmal nocturnal dyspnea. GASTROINTESTINAL: Normal appetite. No nausea, vomiting, diarrhea. No pain. No bloating. No melena. GENITOURINARY: No frequency, urgency, nocturia. No hematuria or dysuria. MUSCULOSKELETAL: No arthralgias or myalgias. INTEGUMENTARY: No swelling. No bruising. No contusions. No abrasions. No lymphangitis. NEUROLOGIC: No headache. No neck pain. No numbness or tingling of the extremities. No weakness. PSYCHIATRIC: No confusion. ENDOCRINE: No fatigue. No weakness. No history of thyroid, diabetes or adrenal problems. HEMATOLOGICAL: No bleeding. No petechiae. No bruising. Exam: General: Awake, alert and orientedX3. No acute distress. Head: The head is normocephalic and atraumatic without tenderness, visible or palpable masses. Eyes: Conjunctivae are clear without exudates or hemorrhage. Sclera is non-icteric. EOM are intact, PERRLA. Ears: Hearing is intact. Neck: The neck is supple without adenopathy. Trachea is midline. Thyroid gland is normal without masses. No bruit. No JVD. Cardiac: Heart (more content not included)... [facility] 12-21-[address] Bright for Dr. Rubalcava - Pt is OUT of inhalers Patient phones requesting refills as follows: Pending Prescriptions Disp Refills ALBUTEROL SULFATE HFA 90 MCG/ACTUATION AEROSOL INHALER 1 Inhaler 2 Sig: Inhale 2 Puffs as instructed every 4 hours as needed for wheezing/shortness of breath. AMY: No FLUTICASONE PROPIONATE 45 MCG-SALMETEROL 21 MCG/ACTUATION HFA INHALER 1 Inhaler 2 Sig: Inhale 2 Puffs as instructed twice daily. May substitute for insurance coverage AMY: No Please review and advise. Adelaida Santos RN documented in this encounter [facility] 06-27-2021 Hospital Discharg e instructions Patient Education 06/27/2021 17:40:37 Asthma, Acute (Adult) Asthma (Adult) Asthma is a disease where the medium and small air passages within the lung go into spasm and restrict the flow of air. Inflammation and swelling of the airways cause further blockage. During an acute asthma attack, these factors cause trouble breathing, wheezing, cough and chest tightness. An asthma attack can be triggered by many things. Common triggers include infections such as the common cold, bronchitis, and pneumonia. Irritants such as smoke or pollutants in the air, very cold air, emotional upset, and exercise can also trigger an attack. In many adults with asthma, allergies to dust, mold, pollen and animal dander can cause an asthma attack. Skipping doses of daily asthma medicine can also bring on an asthma attack. Asthma can be controlled using the proper medicines prescribed by your healthcare provider and avoiding exposure to known triggers including allergens and irritants. Home care Take prescribed medicine exactly at the times advised. If you need medicine such as from a hand held inhaler or aerosol breathing machine more than every 4 hours, contact your healthcare provider or seek immediate medical attention. If prescribed an antibiotic or prednisone, take all of the medicine as prescribed, even if you are feeling better after a few days. Don't smoke. Avoid being exposed to the smoke of others. Some people with asthma have worsening of their symptoms when they take aspirin and non-steroidal or fever-reducing medicines like ibuprofen and naproxen. Talk to your healthcare provider if you think this may apply to you. Follow-up care Follow up with your healthcare provider, or as advised. Always bring all of your current medicines to any appointments with your healthcare provider. Also bring a complete list of medicines even those not taken for asthma. If you don't already have one, talk to your healthcare provider about developing your own Asthma Action Plan. A pneumococcal (pneumonia) vaccine and yearly flu shot (every fall) are recommended. Ask your doctor about this. When to seek medical advice Call your healthcare provider right away if any of these occur: Increased wheezing or shortness of breath Need to use your inhalers more often than usual without relief Fever of 100.4 F (38 C) or higher, or as directed by your healthcare provider Coughing up lots of dark-colored or bloody sputum (mucus) Chest pain with each breath If you use a peak flow meter as part of an Asthma Action Plan, and you are still in the yellow zone (50% to 80%) 15 minutes after using inhaler medicine. Call 911 Call 911 if any of the following occur Trouble walking or talking because of shortness of breath If you use a peak flow meter as part of an Asthma Action Plan and you are still in the red zone (less than 50%) 15 minutes after using inhaler medicine Lips or fingernails turning bullock or blue [id number] [employer]. [address] [place] [address]. All rights reserved. This information is not intended as a substitute for professional medical care. Always follow your healthcare professional's instructions. Follow Up Care 06/27/2021 15:19:51 With:IRLANDA ARCHER Address: [address] [place] [address] [facility] (1) When:2-4 days Comments:Return to ED if symptoms worsen [facility] 06-07-2021 Hospital Discharg e instructions Patient Education 06/07/2021 14:51:41 Asthma, Acute (Adult) Asthma (Adult) Asthma is a disease where the medium and small air passages within the lung go into spasm and restrict the flow of air. Inflammation and swelling of the airways cause further blockage. During an acute asthma attack, these factors cause trouble breathing, wheezing, cough and chest tightness. An asthma attack can be triggered by many things. Common triggers include infections such as the common cold, bronchitis, and pneumonia. Irritants such as smoke or pollutants in the air, very cold air, emotional upset, and exercise can also trigger an attack. In many adults with asthma, allergies to dust, mold, pollen and animal dander can cause an asthma attack. Skipping doses of daily asthma medicine can also bring on an asthma attack. Asthma can be controlled using the proper medicines prescribed by your healthcare provider and avoiding exposure to known triggers including allergens and irritants. Home care Take prescribed medicine exactly at the times advised. If you need medicine such as from a hand held inhaler or aerosol breathing machine more than every 4 hours, contact your healthcare provider or seek immediate medical attention. If prescribed an antibiotic or prednisone, take all of the medicine as prescribed, even if you are feeling better after a few days. Don't smoke. Avoid being exposed to the smoke of others. Some people with asthma have worsening of their symptoms when they take aspirin and non-steroidal or fever-reducing medicines like ibuprofen and naproxen. Talk to your healthcare provider if you think this may apply to you. Follow-up care Follow up with your healthcare provider, or as advised. Always bring all of your current medicines to any appointments with your healthcare provider. Also bring a complete list of medicines even those not taken for asthma. If you don't already have one, talk to your healthcare provider about developing your own Asthma Action Plan. A pneumococcal (pneumonia) vaccine and yearly flu shot (every fall) are recommended. Ask your doctor about this. When to seek medical advice Call your healthcare provider right away if any of these occur: Increased wheezing or shortness of breath Need to use your inhalers more often than usual without relief Fever of 100.4 F (38 C) or higher, or as directed by your healthcare provider Coughing up lots of dark-colored or bloody sputum (mucus) Chest pain with each breath If you use a peak flow meter as part of an Asthma Action Plan, and you are still in the yellow zone (50% to 80%) 15 minutes after using inhaler medicine. Call 911 Call 911 if any of the following occur Trouble walking or talking because of shortness of breath If you use a peak flow meter as part of an Asthma Action Plan and you are still in the red zone (less than 50%) 15 minutes after using inhaler medicine Lips or fingernails turning bullock or blue [phone] [employer]. [address] [place] [address], [place] [address]. All rights reserved. This information is not intended as a substitute for professional medical care. Always follow your healthcare professional's instructions. Follow Up Care 06/07/2021 13:30:31 With:Call Physician Referral Address:Unknown When:2-4 days [facility] 05-28-2021 Hospital Discharg e instructions Patient Education 05/28/2021 16:14:07 Laceration, Hand: All Closures Hand Laceration: All Closures A laceration is a cut through the skin. Deep cuts usually require stitches. Minor cuts may be closed with surgical tape or skin adhesive. X-rays may be done if something may have entered the skin through the cut, such as broken glass. You may also be given a tetanus shot if you are not up to date on this vaccination and the object that cut you may carry tetanus. Home care Your healthcare provider may prescribe an antibiotic. This is to help prevent infection. Follow all instructions for taking this medicine. Take the medicine every day until it is gone or you are told to stop. You should not have any left over. The healthcare provider may prescribe medicines for pain. Follow instructions for taking them. Follow the healthcare provider s instructions on how to care for the cut. Keep the wound clean and dry. Don't get the wound wet until you are told it is OK to do so. If the bandage gets wet, remove it. Gently pat the wound dry with a clean cloth. Then put on a clean, dry bandage. To help prevent infection, wash your hands with soap and water before and after caring for the wound. Caring for stiches: Once you no longer need to keep the stitches dry, clean the wound daily. First, remove the bandage. Then wash the area gently with soap and warm water, or as directed by the healthcare provider. Use a wet cotton swab to loosen and remove any blood or crust that forms. After cleaning, apply a thin layer of antibiotic ointment if advised. Then put on a new bandage unless you are told not to. Caring for skin glue: Don t put apply liquid, ointment, or cream on the wound while the glue is in place. Avoid activities that cause heavy sweating. Protect the wound from sunlight. Don't scratch, rub, or pick at the adhesive film. Don't place tape directly over the film. The glue should peel off within 5 to 10 days. Caring for surgical tape: Keep the area dry. If it gets wet, blot it dry with a clean towel. Surgical tape usually falls off within 7 to 10 days. If it has not fallen off after 10 days, you can take it off yourself. Put mineral oil or petroleum jelly on a cotton ball and gently rub the tape until it is removed. Once you can get the wound wet, you may shower as usual, but don't soak the wound in water. This means no tub baths or swimming. Even with proper treatment, a wound infection may sometimes occur. Check the wound daily for signs of infection listed below. Follow-up care Follow up with your healthcare provider, or as advised. If you have stitches, be sure to return as directed to have them removed. When to seek medical advice Call your healthcare provider right away if any of these occur: Wound bleeding not controlled by direct pressure Signs of infection, including increasing pain in the wound, increasing wound redness or swelling, or pus or bad odor coming from the wound Fever of 100.4 F (38. C) o higher, or as directed by your healthcare provider Stitches come apart or fall out or surgical tape falls off before 7 days Wound edges reopen Wound changes colors Numbness or weakness in the affected hand Decreased movement of the hand [phone] [employer]. [address] [place] [address]. All rights reserved. This information is not intended as a substitute for professional medical care. Always follow your healthcare professional's instructions. Follow Up Care 05/28/2021 15:31:23 With:Call Physician Referral Address:Unknown When:2-4 days [facility] 04-09-2021 Hospital Discharg e instructions Patient Education 04/09/2021 06:35:32 Asthma, Acute (Adult) Asthma (Adult) Asthma is a disease where the medium and small air passages within the lung go into spasm and restrict the flow of air. Inflammation and swelling of the airways cause further blockage. During an acute asthma attack, these factors cause trouble breathing, wheezing, cough and chest tightness. An asthma attack can be triggered by many things. Common triggers include infections such as the common cold, bronchitis, and pneumonia. Irritants such as smoke or pollutants in the air, very cold air, emotional upset, and exercise can also trigger an attack. In many adults with asthma, allergies to dust, mold, pollen and animal dander can cause an asthma attack. Skipping doses of daily asthma medicine can also bring on an asthma attack. Asthma can be controlled using the proper medicines prescribed by your healthcare provider and avoiding exposure to known triggers including allergens and irritants. Home care Take prescribed medicine exactly at the times advised. If you need medicine such as from a hand held inhaler or aerosol breathing machine more than every 4 hours, contact your healthcare provider or seek immediate medical attention. If prescribed an antibiotic or prednisone, take all of the medicine as prescribed, even if you are feeling better after a few days. Don't smoke. Avoid being exposed to the smoke of others. Some people with asthma have worsening of their symptoms when they take aspirin and non-steroidal or fever-reducing medicines like ibuprofen and naproxen. Talk to your healthcare provider if you think this may apply to you. Follow-up care Follow up with your healthcare provider, or as advised. Always bring all of your current medicines to any appointments with your healthcare provider. Also bring a complete list of medicines even those not taken for asthma. If you don't already have one, talk to your healthcare provider about developing your own Asthma Action Plan. A pneumococcal (pneumonia) vaccine and yearly flu shot (every fall) are recommended. Ask your doctor about this. When to seek medical advice Call your healthcare provider right away if any of these occur: Increased wheezing or shortness of breath Need to use your inhalers more often than usual without relief Fever of 100.4 F (38 C) or higher, or as directed by your healthcare provider Coughing up lots of dark-colored or bloody sputum (mucus) Chest pain with each breath If you use a peak flow meter as part of an Asthma Action Plan, and you are still in the yellow zone (50% to 80%) 15 minutes after using inhaler medicine. Call 911 Call 911 if any of the following occur Trouble walking or talking because of shortness of breath If you use a peak flow meter as part of an Asthma Action Plan and you are still in the red zone (less than 50%) 15 minutes after using inhaler medicine Lips or fingernails turning bullock or blue [phone] [employer]. [address] [place] [address]. All rights reserved. This information is not intended as a substitute for professional medical care. Always follow your healthcare professional's instructions. Follow Up Care 04/09/2021 05:40:57 With:MEDICAL, CLINIC Address: [address] [place] [phone] When:2-4 days [facility] Evaluation + Plan note No data available for this section [facility] documented in this encounter [facility] Summary Purpose Family History No Family History Records FoundNo Family History Records FoundNo Family History Records FoundNo Family History Records FoundNo Family History Records Found Advance Directives No Advanced Directives Records FoundNo Advanced Directives Records FoundNo Advanced Directives Records FoundNo Advanced Directives Records FoundNo Advanced Directives Records Found Additional Source Comments <item> Privacy Markings (unrecogniz ed section and content) Section Author: Nancie Rausch PROHIBITION ON REDISCLOSURE OF CONFIDENTIAL INFORMATION This notice accompanies a disclosure of information concerning a client made to you with the consent of such client. INFORMATION SOURCE (unrecogn ized section and content) DATE CREATED AUTHOR AUTHOR'S ORGANIZ ATION 06/25/2021 [employer] DATE CREATED AUTHOR AUTHOR'S ORGANIZ ATION 08/22/2022 [facility] DATE CREATED AUTHOR AUTHOR'S ORGANIZ ATION 10/27/2022 [facility] ([place]) DATE CREATED AUTHOR AUTHOR'S ORGANIZ ATION 12/31/2022 [facility] Source Comments (unrecognize d section and content) In the event this informatio n is protected by the Federal Confidentiality of Alcohol and Drug Abuse Patient Records regulations: The Federal rules restrict any use of the information to criminally investigate or prosecute any alcohol or drug abuse patient.[facility] the event this information is protected by the Federal Confidentiality of Alcohol and Drug Abuse Patient Records regulations: The Federal rules restrict any use of the information to criminally investigate or prosecute any alcohol or drug abuse patient.[facility] the event this information is protected by the Federal Confidentiality of Alcohol and Drug Abuse Patient Records regulations: The Federal rules restrict any use of the information to criminally investigate or prosecute any alcohol or drug abuse patient.[facility] the event this information is protected by the Federal Confidentiality of Alcohol and Drug Abuse Patient Records regulations: The Federal rules restrict any use of the information to criminally investigate or prosecute any alcohol or drug abuse patient.[facility] the event this information is protected by the Federal Confidentiality of Alcohol and Drug Abuse Patient Records regulations: The Federal rules restrict any use of the information to criminally investigate or prosecute any alcohol or drug abuse patient.[facility] the event this information is protected by the Federal Confidentiality of Alcohol and Drug Abuse Patient Records regulations: The Federal rules restrict any use of the information to criminally investigate or prosecute any alcohol or drug abuse patient.[facility] Hospital[facility] the event this information is protected by the Federal Confidentiality of Alcohol and Drug Abuse Patient Records regulations: The Federal rules restrict any use of the information to criminally investigate or prosecute any alcohol or drug abuse patient.[facility] Hospital[facility] the event this information is protected by the Federal Confidentiality of Alcohol and Drug Abuse Patient Records regulations: The Federal rules restrict any use of the information to criminally investigate or prosecute any alcohol or drug abuse patient.[facility] the event this information is protected by the Federal Confidentiality of Alcohol and Drug Abuse Patient Records regulations: The Federal rules restrict any use of the information to criminally investigate or prosecute any alcohol or drug abuse patient.[facility] Reason for Visit (unrecogniz ed section and content) Reason Comments Appointment Reason Comments Pain Bilateral hand and f oot pain x1 week, mass behind L ear x2 days Care Teams (unrecognized sec tion and content) [employer] Tender Relationship Specialty Start Date End Date Carolina Pierce MD [address] [place] [address] PCP - General Internal Medicine 11/26/21 Zaki Clement MD [address] [place] [address] PCP Resident Internal Medicine 11/26/21 [employer] Tender Relationship Specialty Start Date End Date Carolina Pierce MD [address] [place] [address] PCP - General Internal Medicine 11/26/21 Zaki Clement MD [address] [place] [address] PCP Resident Internal Medicine 11/26/21 [employer] Tender Relationship Specialty Start Date End Date Carolina Pierce MD [address] [place] [address] PCP - General Internal Medicine 11/26/21 Zaki Clement MD [address] [place], [place] [id number] PCP Resident Internal Medicine 11/26/21 [employer] Tender Relationship Specialty Start Date End Date Carolina Pierce MD [address] [address] PCP - General Internal Medicine 11/26/21 Zaki Clement MD [address] [place] [address] PCP Resident Internal Medicine 11/26/21 FOR RECORDS PERTAINING TO PATIENTS WHO ARE OR HAVE BEEN ENROLLED IN A CHEMICAL DEPENDENCY/SUBSTANCEABUSE PROGRAM, SOME INFORMATION MAY BE OMITTED. This clinical summary was aggregated from multiple sources. Caution should be exercised in using it in the provision of clinical care. This summary normalizes information from multiple sources, and as a consequence, information in this document may materially change the coding, format and clinical context of patient data. In addition, data may be omitted in some cases. CLINICAL DECISIONS SHOULD BE BASED ON THE PRIMARY CLINICAL RECORDS. [employer] provides no warranty or guarantee of the accuracy or completeness of information in this document.
--- NOTE | 2023-05-27 07:33 | RAD_ITS ---
STUDY: AIR CONTRAST UPPER GI SERIES and esophagram. REASON FOR EXAM: Female, 57 years old. K21.9 - Gastro-esophageal reflux disease without esophagitis FLUOROSCOPY TIME (if supplied): (1 minute and 4 seconds) minutes/seconds TECHNIQUE: SINGLE CONTRAST AND AIR CONTRAST FLUOROSCOPIC IMAGES. COMPARISON: None. FINDINGS: The cervical esophagus demonstrates normal motility without aspiration. There is no stricture or extrinsic mass effect. No intraluminal polypoid mass is identified. The thoracic esophagus distends well without stricture or mucosal fold thickening. No mucosal ulcerations are identified. There is no extrinsic mass effect. Small traction diverticulum in the distal portion of the esophagus. No hiatal hernia or gastroesophageal reflux was identified. The stomach distends well without mucosal fold thickening or mucosal ulceration. There is no intraluminal mass. The duodenal bulb is freely distensible without deformity or ulceration. The duodenal sweep is normal in position and caliber. RAD/Upper GI w/BA Swallow IMPRESSION: No evidence of gastroesophageal reflux. Small traction diverticulum in the distal portion of the esophagus. Electronically Signed: Henrry Barroso MD at 13:09 EST ,
== END | disposition home or self-care (01) ==
LOC: RAD 07:25
PROVIDERS: Referring Provider Surgery; Visit Provider Surgery
DX: K21.9 Gastro-esophageal reflux disease without esophagitis (principal)
CPT/HCPCS: 74246

== ENCOUNTER 2023-07-07 07:13 | Emergency (ER) | payer MEDICAID, SELFPAY ==
[2023-07-07 07:13] VITALS: BP 160/97; PULSE 102; RESP 16; TEMP 36.2; O2SAT 100; BMI 26.4
--- NOTE | 2023-07-07 07:26 | EX.ED.DYSGE1 ---
HPI History of Present Illness Chief Complaint: Abscess Detail of Chief Complaint: Abscess to the right lower buttock Informant: patient Narrative Narrative: Patient presents with an abscess of the right lower buttock she initially noticed 4 days ago. She has history of abscesses that have required drainage. She denies fevers or chills or sweats. She is a diabetic. She does have history of MRSA. [facility] Medical History (Updated 07/07/23 @ 07:[address] Gilda Drake, DO) Anxiety Arthritis Asthma Bilateral carpal tunnel syndrome Bipolar 1 disorder Degenerative disc disease Depression Diabetes Difficulty swallowing Fibromyalgia Gastric reflux History of cellulitis History of diverticulitis Hx of intestinal obstruction MRSA (methicillin resistant staph aureus) culture positive Psoriasis PTSD (post-traumatic stress disorder) Wears glasses Home Medications metformin 500 mg tablet,extended release 24 hr 500 mg PO DAILY Check with primary doctor 07/15/21 [History Last Taken 03/06/22 08:00] trazodone 150 mg tablet 150 mg PO QHS anxiety 07/15/21 [History Last Taken 03/05/22 21:00] albuterol sulfate 90 mcg/actuation aerosol inhaler 2 puff inhalation Q6H PRN shortness of breath or wheezing #8.5 grams 07/16/21 [Rx Last Taken 04/23/23] fluticasone propionate 45 mcg-salmeterol 21 mcg/actuation HFA inhaler (Advair HFA) 2 puff inhalation BID asthma 10/04/21 [History Last Taken 04/23/23] ibuprofen 500 mg PO Q6H PRN PRN Pain 03/06/22 [History Last Taken 03/06/22 08:30] hydroxyzine HCl 25 mg tablet 25 mg PO TID anxiety 11/04/22 [History Last Taken Unknown] omeprazole 40 mg capsule,delayed release 40 mg PO BID 11/04/22 [History Last Taken 04/23/23] atorvastatin 40 mg tablet 20 mg PO QHS 11/25/22 [History Last Taken Unknown] cetirizine 10 mg tablet 10 mg PO DAILY 03/06/23 [History Last Taken Unknown] albuterol sulfate 2.5 mg/3 mL (0.083 %) solution for nebulization 2.5 mg inhalation Q4H PRN shortness of breath or wheezing 04/08/23 [History Last Taken Unknown] dulaglutide 0.75 mg/0.5 mL subcutaneous pen injector (Trulicity) 1.5 mg subcut MATA 04/08/23 [History Last Taken Unknown] fluticasone fur. 200 mcg-umeclid 62.5 mcg-vilant 25 mcg inhalat.powder (Trelegy Ellipta) 1 inh inhalation Q24H 04/08/23 [History Last Taken 04/23/23] lanolin alcohols-mineral oil-w.petrolatum-ceresin topical cream (Minerin Creme topical) 1 applic topical DAILY 04/08/23 [History Last Taken Unknown] sertraline 50 mg tablet 50 mg PO DAILY 04/08/23 [History Last Taken Unknown] acetaminophen 650 mg tablet,extended release (Tylenol Arthritis Pain) 1,300 mg PO Q12H 06/23/23 [History Last Taken Unknown] hydroxyzine HCl 25 mg tablet 50 mg PO QHS 06/23/23 [History Last Taken Unknown] clindamycin HCl 300 mg capsule (Cleocin HCl) 300 mg PO Q6H #40 CAPSULES 07/07/23 [Rx Last Taken Unknown] hydrocodone-acetaminophen 5-325mg 5mg-325mg 1 tab PO Q4H PRN PRN Pain 2 days #10 TABLETS 07/07/23 [Rx Last Taken Unknown] Allergy/AdvReac Type Severity Reaction Status Date / Time Tetracyclines Allergy Intermediate Rash Verified 07/07/23 07:15 aminophylline Allergy Swelling Verified 07/07/23 07:15 amphetamine [From Adderall] Allergy Other Verified 07/07/23 07:15 dextroamphetamine Allergy Other Verified 07/07/23 07:15 [From Adderall] Iodinated Contrast Media [CT] Allergy Swelling Verified 07/07/23 07:15 iodine Allergy Swelling Verified 07/07/23 07:15 povidone-iodine Allergy Swelling Verified 07/07/23 07:15 [From Betadine] shellfish derived Allergy Swelling Verified 07/07/23 07:15 Sulfa (Sulfonamide Allergy Swelling Verified 07/07/23 07:15 Antibiotics) buspirone [From BuSpar] AdvReac Intermediate Other Verified 07/07/23 07:15 allantoin [From Blistex] AdvReac Swelling Verified 07/07/23 07:15 aloe vera [From Blistex] AdvReac Swelling Verified 07/07/23 07:15 camphor [From Blistex] AdvReac Swelling Verified 07/07/23 07:15 chamomile flower AdvReac Swelling Verified 07/07/23 07:15 [From Blistex] dimethicone [From Blistex] AdvReac Swelling Verified 07/07/23 07:15 herbal complex no.57 AdvReac Swelling Verified 07/07/23 07:15 [From Blistex] homosalate [From Blistex] AdvReac Swelling Verified 07/07/23 07:15 menthol [From Blistex] AdvReac Swelling Verified 07/07/23 07:15 meradimate [From Blistex] AdvReac Swelling Verified 07/07/23 07:15 octinoxate [From Blistex] AdvReac Swelling Verified 07/07/23 07:15 octyl salicylate AdvReac Swelling Verified 07/07/23 07:15 [From Blistex] oxybenzone [From Blistex] AdvReac Swelling Verified 07/07/23 07:15 padimate O [From Blistex] AdvReac Swelling Verified 07/07/23 07:15 petrolatum,hydrophilic AdvReac Swelling Verified 07/07/23 07:15 [From Blistex] phenol [From Blistex] AdvReac Swelling Verified 07/07/23 07:15 tetracycline AdvReac Rash Verified 07/07/23 07:15 Family History Father Diabetes Heart disease Mother Diabetes Heart disease Sister Heart disease Thyroid disorder Surgical History History of carpal tunnel surgery History of intestinal surgery History of lumpectomy of right breast History of right breast biopsy (~11/2021) Hx of appendectomy Hx of bilateral oophorectomy Hx of breast surgery Hx of hysterectomy Hx of repair of right rotator cuff Hx of surgical procedure Hx of tooth extraction Social History household members: spouse Smoking Status: Never smoker alcohol intake: never substance use type: does not use ROS ROS ED Review of Systems ROS Unobtainable: other Constitutional Constitutional ED: Reports lethargy; Denies chills, fever(s), sweats or weight loss Eyes Eyes: Denies blurry vision, change in vision or diplopia ENT ENT ED: Denies rhinorrhea or sore throat Cardiovascular Cardiovascular: Denies chest pain, orthopnea or racing heartbeat Respiratory/Chest Respiratory/Chest: Denies cough, dyspnea, dyspnea on exertion, orthopnea or sputum Gastrointestinal Gastrointestinal: Denies abdominal pain, diarrhea, nausea or vomiting Genitourinary Genitourinary ED: Denies dysuria, hematuria or urinary frequency Musculoskeletal Musculoskeletal: Denies arthralgias, back pain, myalgias or neck pain Integumentary Reports abscess and other Details: Right lower buttock to crease of posterior thigh there is a area of soft tissue swelling with some surrounding erythema and cellulitic change. Area measures approximately 5 cm in diameter as far as the erythema central portion somewhat indurated measuring about 3 cm in diameter central portion of the skin starting to ulcerate and small amount of clot noted. Area tender to palpation. Mild fluctuance noted. ; Denies Abrasions or rash Neurologic Neurologic: Denies headache(s) or weakness Psychiatric Psychiatric: Denies anxiety, depression or suicidal thoughts Endocrine Endocrinology: Denies polydipsia, polyphagia or polyuria Hematologic/Lymphatic Hematologic/Lymphatic: Denies easy bleeding, easy bruising or lymphadenopathy Allergic/Immunologic Allergic/Immunologic ED: Denies mouth swelling, tongue swelling or urticaria EXAM Physical Exam Const Vital Signs: 07/07/23 07:13 Temperature 97.2 F L Temperature Source Temporal Pulse Rate 102 H Respiratory Rate 16 Blood Pressure 160/97 H Blood Pressure Mean 118 Pulse Ox 100 Oxygen Delivery Method Room Air MDM MDM MDM Narrative Medical decision making narrative: Patient was offered incision and drainage to which she agreed to. Area of the skin was cleansed with Shur-Clens. I anesthetized the area locally with 4 cc of 1% lidocaine. Using an 11 blade I made a 2 cm incision into the suspected abscess however only small amount of purulent debris was obtained. I used curved hemostats to undermine the tissues and again mostly blood with small amount of purulent debris was obtained. I irrigated the area. Clean dressing applied. Patient tolerated procedure well. Patient was started on clindamycin. I will write her prescription for clindamycin and a few [place] for pain. She is advised to follow-up with Dr. Robert whom she seen before for incision and drainage of abscesses. Patient to return if worsening pain and increased swelling or fever or if condition should worsen anyway. Discharge Plan Triage Chief Complaint: Abscess ED Provider: Gilda Drake Dx/Rx/DC Orders Clinical Impression: Encounter for incision and drainage procedure, Soft tissue abscess Instructions: ED Abscess Incision And Drainage Prescriptions: New clindamycin HCl [Cleocin HCl] 300 mg capsule 300 mg PO Q6H Qty: 40 0RF hydrocodone-acetaminophen [hydrocodone-acetaminophen] 5-325 mg tablet 1 tab PO Q4H PRN PRN (Reason: Pain) 2 Days Qty: 10 0RF No Action hydroxyzine HCl 25 mg tablet 25 mg PO TID Patient Comments: TAKE ONE TABLET BY MOUTH 2-3 TIMES DAILY NEEDED FOR ANXIETY omeprazole 40 mg capsule,delayed release(DR/EC) 40 mg PO BID Patient Comments: TAKE 1 CAPSULE BY MOUTH TWICE DAILY cetirizine 10 mg tablet 10 mg PO DAILY Patient Comments: TAKE ONE TABLET BY MOUTH EVERY DAY trazodone 150 mg tablet 150 mg PO QHS Patient Comments: take 1 and 1/2 tablet DAILY AT BEDTIME metformin 500 mg tablet extended release 24 hr 500 mg PO DAILY albuterol sulfate 90 mcg/actuation HFA aerosol inhaler 2 puff inhalation Q6H PRN (Reason: shortness of breath or wheezing) Qty: 8.5 0RF fluticasone propion-salmeterol [Advair HFA] 45-21 mcg/actuation HFA aerosol inhaler 2 puff INHALATION BID ibuprofen 500 mg PO Q6H PRN PRN (Reason: Pain) atorvastatin 40 mg tablet 20 mg PO QHS Patient Comments: TAKE ONE TABLET BY MOUTH AT BEDTIME albuterol sulfate 2.5 mg /3 mL (0.083 %) solution for nebulization 2.5 mg inhalation Q4H PRN (Reason: shortness of breath or wheezing) Patient Comments: inhale ONE ampule EVERY 4 TO 6 HOURS NEEDED Trelegy Ellipta 200-62.5-25 mcg blister with device 1 inh INHALATION Q24H Patient Comments: INHALE 1 PUFF BY MOUTH EVERY DAY sertraline 50 mg tablet 50 mg PO DAILY Patient Comments: TAKE ONE TABLET BY MOUTH EVERY DAY Minerin Creme Cream 1 applic TOPICAL DAILY Patient Comments: apply to lower legs liberally twice daily Trulicity 0.75 mg/0.5 mL pen injector 1.5 mg SUBCUT MATA Patient Comments: inject 0.75 mg subcutaneous every week as directed hydroxyzine HCl 25 mg tablet 50 mg PO QHS acetaminophen [Tylenol Arthritis Pain] 650 mg tablet extended release 1,300 mg PO Q12H Primary Care Provider: [facility] Referrals: Mahesh Robert MD [Med Staff - Active Staff] - 3-[address] [facility] [Primary Care Provider] - Disposition Disposition: Home, Self Care
[2023-07-07] MEDS: Clindamycin HCl 150 MG Capsule 300 MG PO (07:48)
--- OUTSIDE RECORDS SUMMARY | 2023-07-07 08:10 | XMS RPT_ITS | CCD ---
Author Name Unknown Address [address] [place] [address] Organization [facility] Care Team Providers Care Electrical Accessories I Assembler Name Role Phone Required, No Pcp Unavailable Unavailable Shantal Larsen Unavailable MEDICAL, CLINIC Primary Care Physician Unavailab le PHYSICIAN, NONE Primary Care Physician Unavailab le Unavailable Primary Care Provider Unavailabl e Carolina Pierce MD Primary Care Provider Lalo [...] Aminophylline (1 source) Aminophylline Drug Allergy Unknown [facility] Amphetamine aspartate / Amphetamine Sulfate / Dextroamphetamine saccharate / Dextroamphetamine Sulfate (1 source) Amphetamine aspartate / Amphetamine Sulfate / Dextroamphetamine saccharate / Dextroamphetamine Sulfate Drug Allergy Unknown [facility] Povidone-Iodine (2 sources) Povidone-Iodine Drug Allergy Unknown [facility] Shellfish (1 source) Shellfish Food Allergy Unknown [facility] Tetracyclines (antibiotic) (1 source) Tetracycline Drug Allergy Unknown [facility] Unclassified (5 sources) Seafood Unknown [facility] (4 sources) Aminophylline; Translations: [aminophylline] Drug Allergy Unknown [facility] Work Phone: Medications Current Medications Medication Drug [...] 14:07-0400 Body temperature 98.71 [degF] Carmita Phan FORMING MACHINE OPERATOR.WAREHOUSE MATERIAL HANDLER Work Phone: [facility] 12-30-2022 14:07-0400 Body weight 64.59 kg Carmita Phan FORMING MACHINE OPERATOR.WAREHOUSE MATERIAL HANDLER Work Phone: [facility] 12-30-2022 14:07-0400 Diastolic blood pressure 66 mm[Hg] Carmita Phan FORMING MACHINE OPERATOR.WAREHOUSE MATERIAL HANDLER Work Phone: [facility] 12-30-2022 14:07-0400 Heart rate 118 /min Carmita Phan FORMING MACHINE OPERATOR.WAREHOUSE MATERIAL HANDLER Work Phone: [facility] 12-30-2022 14:07-0400 Respiratory rate 18 /min Carmita Phan FORMING MACHINE OPERATOR.WAREHOUSE MATERIAL HANDLER Work Phone: [facility] 12-30-2022 14:07-0400 SaO2% (BldA) [Mass fraction] 97 % Carmita Phan FORMING MACHINE OPERATOR.WAREHOUSE MATERIAL HANDLER Work Phone: [facility] 12-30-2022 14:07-0400 Systolic blood pressure 169 mm[Hg] Carmita Phan MAHENDRA Work Phone: [facility] 10-16-2021 19:08-0400 Body temperature 97.39 [degF] Zaki Rubalcava MD Work Phone: [facility] 10-16-2021 19:08-0400 Body weight 72.12 kg Zaki Rubalcava MD Work Phone: [facility] 10-16-2021 19:08-0400 Diastolic blood pressure 80 mm[Hg] Zaki Rubalcava MD Work Phone: [facility] 10-16-2021 19:08-0400 Heart rate 105 /min Zaki Rubalcava MD Work Phone: [facility] 10-16-2021 19:08-0400 Respiratory rate 20 /min Zaki Rubalcava MD Work Phone: [facility] 10-16-2021 19:08-0400 SaO2% (BldA) [Mass fraction] 96 % Zaki Rubalcava MD Work Phone: [facility] 10-16-2021 19:08-0400 Systolic blood pressure 118 mm[Hg] Zaki Rubalcava MD Work Phone: [facility] 06-27-2021 16:34-0500 Diastolic blood pressure 90 mm[Hg] DR BRETT MCDONNELL MD [facility] 06-27-2021 16:34-0500 Heart rate 112 /min DR BRETT MCDONNELL MD [facility] 06-27-2021 16:34-0500 Mean blood pressure 102 mm[Hg] DR BRETT MCDONNELL MD [facility] 06-27-2021 16:34-0500 Respiratory rate 24 /min DR BRETT MCDONNELL MD [facility] 06-27-2021 16:34-0500 Systolic blood pressure 126 mm[Hg] DR BRETT MCDONNELL MD [facility] 06-27-2021 16:16-0500 Heart rate 110 /min DR BRETT MCDONNELL MD [facility] 06-27-2021 16:16-0500 Respiratory rate 24 /min DR BRETT MCDONNELL MD [facility] 06-27-2021 15:58-0500 Heart rate 112 /min DR BRETT MCDONNELL MD [facility] 06-27-2021 15:58-0500 Respiratory rate 26 /min DR BRETT MCDONNELL MD [facility] 06-27-2021 15:35-0500 SaO2% (BldA) [Mass fraction] 94 % DR BRETT MCDONNELL MD [facility] 06-27-2021 15:28-0500 Body temperature 98.6 [degF] DR BRETT MCDONNELL MD [facility] 06-27-2021 15:28-0500 Diastolic blood pressure 75 mm[Hg] DR BRETT MCDONNELL MD [facility] 06-27-2021 15:28-0500 Mean blood pressure 96 mm[Hg] DR BRETT MCDONNELL MD [facility] 06-27-2021 15:28-0500 Systolic blood pressure 137 mm[Hg] DR BRETT MCDONNELL MD [facility] 06-07-2021 15:00-0500 Diastolic blood pressure 85 mm[Hg] DR PAULA BENÍTEZ MD [facility] 06-07-2021 15:00-0500 Heart rate 97 /min DR PAULA BENÍTEZ MD [facility] 06-07-2021 15:00-0500 Mean blood pressure 100 mm[Hg] DR PAULA BENÍTEZ MD [facility] 06-07-2021 15:00-0500 Respiratory rate 14 /min DR PAULA BENÍTEZ MD [facility] 06-07-2021 15:00-0500 Systolic blood pressure 130 mm[Hg] DR PAULA BENÍTEZ MD [facility] 06-07-2021 14:21-0500 Heart rate 99 /min DR PAULA BENÍTEZ MD [facility] 06-07-2021 14:21-0500 Respiratory rate 12 /min DR PAULA BENÍTEZ MD [facility] 06-07-2021 13:47-0500 Body temperature 98.24 [degF] DR PAULA BENÍTEZ MD [facility] 06-07-2021 13:47-0500 Diastolic blood pressure 93 mm[Hg] DR PAULA BENÍTEZ MD [facility] 06-07-2021 13:47-0500 Heart rate 111 /min DR PAULA BENÍTEZ MD [facility] 06-07-2021 13:47-0500 Mean blood pressure 113 mm[Hg] DR PAULA BENÍTEZ MD [facility] 06-07-2021 13:47-0500 Respiratory rate 28 /min DR PAULA BENÍTEZ MD [facility] 06-07-2021 13:47-0500 Systolic blood pressure 153 mm[Hg] DR PAULA BENÍTEZ MD [facility] 05-28-2021 16:50-0500 Heart rate 98 /min DR SUSANA KESSLER MD [facility] 05-28-2021 16:50-0500 Respiratory rate 16 /min DR SUSANA KESSLER MD [facility] 05-28-2021 15:36-0500 Body temperature 98.6 [degF] DR SUSANA KESSLER MD [facility] 05-28-2021 15:36-0500 Body weight [address] SUSANA KESSLER MD [facility] 05-28-2021 15:36-0500 Diastolic blood pressure 82 mm[Hg] DR SUSANA KESSLER MD [facility] 05-28-2021 15:36-0500 Heart rate 109 /min DR SUSANA KESSLER MD [facility] 05-28-2021 15:36-0500 Respiratory rate 20 /min DR SUSANA KESSLER MD [facility] 05-28-2021 15:36-0500 Systolic blood pressure 159 mm[Hg] DR SUSANA KESSLER MD [facility] 04-09-2021 06:29-0500 Heart rate 101 /min FIFI HERNANDEZ MD [facility] 04-09-2021 06:29-0500 Respiratory rate 22 /min FIFI HERNANDEZ MD [facility] 04-09-2021 05:56-0500 Heart rate 109 /min FIFI HERNANDEZ MD [facility] 04-09-2021 05:56-0500 Respiratory rate 24 /min FIFI HERNANDEZ MD [facility] 04-09-2021 05:46-0500 Body height 157.5 cm FIFI HERNANDEZ MD [facility] 04-09-2021 05:46-0500 Body temperature 98.42 [degF] FIFI HERNANDEZ MD [facility] 04-09-2021 05:46-0500 Body weight 75 kg FIFI HERNANDEZ MD [facility] 04-09-2021 05:46-0500 Diastolic blood pressure 60 mm[Hg] FIFI HERNANDEZ MD [facility] 04-09-2021 05:46-0500 Systolic blood pressure 116 mm[Hg] FIFI HERNANDEZ MD [facility] 09-19-2020 17:00-0400 Heart rate 94 /min No Pcp Required [facility] 09-19-2020 17:00-0400 Respiratory rate 18 /min No Pcp Required [facility] 09-19-2020 17:00-0400 SaO2% (BldA) [Mass fraction] 95 % No Pcp Required [facility] 09-19-2020 16:00-0400 Diastolic blood pressure 75 mm[Hg] No Pcp Required [facility] 09-19-2020 16:00-0400 Systolic blood pressure 123 mm[Hg] No Pcp Required [facility] 09-19-2020 13:56-0400 Body height 162.5 cm No Pcp Required [facility] 09-19-2020 13:56-0400 Body temperature 98.06 [degF] No Pcp Required [facility] 09-19-2020 13:56-0400 Body weight 70 kg No Pcp Required [facility] Encounters Encounter Date Encounter Type Care Provider Facility Start: 12-30-2022 End: 12-30-2022 ambulatory CAROLINA PIERCE Facility:[facility] Start: 12-30-2022 End: 12-30-2022 Patient encounter procedure Carmita Phan APRN.WAREHOUSE MATERIAL HANDLER Work Phone: [facility] Procedures Date Procedure Procedure Detail [...] DTA P,TDAP,TD (2 - Td or Tdap) [facility] Start: 12-25-2023 Hepatitis B screening URINE AL BUMIN:CREATININE RATIO [facility] Start: 12-25-2023 Hepatitis B surface antibody level LDL CHOLESTEROL [facility] Start: 03-27-2023 Hepatitis B surface antibody level LDL CHOLESTEROL [facility] Start: 03-26-2023 Hemoglobin A1c/Hemoglobin.total in Blood HBA1C [facility] Start: 01-17-2023 Influenza vaccination [facility] Start: 12-24-2022 ANNUAL PCP TEAM POLICE LIEUTENANT NEAL DISEASE VISIT ANNUAL PCP TEAM CHRONIC DISEASE VISIT [facility] Start: 09-24-2022 Hemoglobin A1c/Hemoglobin.total in Blood HBA1C [facility] Start: 05-19-2022 DEPRESSION ASSESSMENT DEPRESSION ASS ESSMENT [facility] Start: 01-17-2022 Influenza vaccination [facility] Start: 11-11-2021 COVID-19 VACCINE (6 - Pfizer series) COVID-19 VACCINE (6 - Pfizer series) [facility] Start: 10-21-2021 COVID-19 VACCINE (4 - Booster for Pfizer series) COVID-19 VACCINE (4 - Booster for Pfizer series) [facility] Start: 01-17-2021 Influenza vaccination INFLUENZA (#1) [facility] Start: 07-23-2015 PNEUMOCOCCAL (2 - PCV) PNEUMOCOCCAL (2 - PCV) [facility] Start: 12-12-2013 SHINGRIX VACCINE (1 of 2) SHINGRIX V ACCINE (1 of 2) [facility] Start: 12-12-2008 COLOGUARD (FIT-DNA) COLOGUARD (FIT-D NA) [facility] Start: 12-12-2008 Colonoscopy COLONOSCOPY [facility] Start: 12-12-2008 COLORECTAL CANCER SCREENING COLORECTAL CANCER SCREENING [facility] Start: 12-12-[address] COLONOGRAPHY [facility] Start: 12-12-2008 DIABETES SCREEN DIABETES SCREEN [facility] Start: 12-12-2008 FECAL OCCULT BLOOD FECAL OCCULT BLOO D [facility] Start: 12-12-2008 LIPID SCREEN LIPID SCREEN [facility] Start: 12-12-2008 SIGMOIDOSCOPY SIGMOIDOSCOPY [facility] Start: 2003 Mammography MAMMOGRAM [facility] Start: 12-12-1993 HPV TESTING HPV TESTING [facility] Start: 12-12-1984 PAP TESTING PAP TESTING [facility] Start: 12-12-1982 Urine microalbumin profile DTAP,TDAP ,TD (1 - Tdap) [facility] Start: 12-12-1981 Hepatitis B surface antibody level LDL CHOLESTEROL [facility] Start: 12-12-1981 HEPATITIS C SCREENING HEPATITIS C SC REENING [facility] Start: 12-12-1981 HIV SCREENING HIV SCREENING [facility] Start: 12-12-1981 SPIROMETRY SPIROMETRY [facility] Start: 1975 Adult depression scr eening assessment DEPRESSION SCREENING [facility] Start: 12-12-1973 3 comp foot exam completed DIABETIC FOOT EXAM [facility] Start: 12-12-1973 Hepatitis B screening URINE AL BUMIN:CREATININE RATIO [facility] Start: 12-12-1973 Hepatitis C antibody , confirmatory test DILATED RETINAL EXAM [facility] Start: 12-12-1969 PNEUMOCOCCAL (1 - PCV) PNEUMOCOCCAL (1 - PCV) [facility] Start: 12-12-1968 COVID-19 VACCINE (#1) COVID-19 VACCI NE (#1) [facility] Start: 12-12-1968 COVID-19 VACCINE (1) COVID-19 VACCIN E (1) [facility] Start: 12-12-1968 Hemoglobin A1c/Hemoglobin.total in Blood HBA1C [facility] Start: 06-14-1964 COVID-19 VACCINE (#1) COVID-19 VACCI NE (#1) [facility] Start: 1965 HEPATITIS B (1 of 3 - 3-dose series) HEPATITIS B (1 of 3 - 3-dose series) [facility] Immunizations Immunization Date Immunization Notes Care Provider Fa lorin 05-28-2021 tetanus toxoid, redu larisa diphtheria toxoid, and acellular pertussis vaccine, adsorbed; Translations: [Boostrix (Tdap)] DR SUSANA KESSLER MD [facility] 02-16-2021 influenza, seasonal, injectable Carmita Phan FORMING MACHINE OPERATOR.WAREHOUSE MATERIAL HANDLER Work Phone: [facility] 02-28-2020 influenza, seasonal, injectable Carmita Phan FORMING MACHINE OPERATOR.WAREHOUSE MATERIAL HANDLER Work Phone: [facility] 05-19-2017 influenza, seasonal, injectable, preservative free Carmita Phan FORMING MACHINE OPERATOR.WAREHOUSE MATERIAL HANDLER Work Phone: [facility] 03-05-2016 influenza, seasonal, injectable Carmita Phan FORMING MACHINE OPERATOR.WAREHOUSE MATERIAL HANDLER Work Phone: [facility] 05-19-2015 influenza, seasonal, injectable Carmita Phan FORMING MACHINE OPERATOR.WAREHOUSE MATERIAL HANDLER Work Phone: [facility] 07-22-2014 pneumococcal polysaccharide vaccine, 23 valent Carmita Phan FORMING MACHINE OPERATOR.WAREHOUSE MATERIAL HANDLER Work Phone: [facility] Payers Date Payer Category Payer Unknown [id number] 2021 Medicaid [facility] MEDICA[facility] [id number] 2021-Present [phone] [address] [place] [address] Medicaid [id number] 2021 Medicaid [id number] 2021 Medicaid [id number] 1965 Unknown [id number] 1965 Unknown [id number] Unknown MULTIPLAN\MULTIPLAN Social History Date Type Detail Facility [facility] Tobacco smoking consumption unknown [facility] Start: 04-14-2019 End: 12-30-2022 Never smoked tobacco (finding) [facility] Sex Assigned At Female [facility] Start: 1965 Sex Assigned At Not on file [facility] Start: 12-11-2021 End: 12-24-2021 Exposure to SARS-CoV-2 (event) Not sure [facility] Start: 12-30-2022 Tobacco use and exposure Smokeless tobacco non-user [facility] Start: 05-31-2022 End: 12-30-2022 History of Social function [facility] Start: 05-31-2022 End: 12-30-2022 Tobacco use panel [facility] National Score (1-100), lower number is lower risk 64 [facility] Clinical Notes 04-09-2021 to 12-30-2022 Carmita Phan APRN.WAREHOUSE MATERIAL HANDLER - 12/30/2022 2:12 PM EDTGity Lalo Rubalcava MD - 08/18/2022 12:03 AM EDTTelephone Encounter - Marlena W Juan Luis - 08/06/2022 8:15 AM EDT Note Date & Type Note Facility 12-30-2022 Note HNO ID: [id number] Author: Carmita Phan APRN.WAREHOUSE MATERIAL HANDLER Service: ? Author Type: Nurse Practitioner Type: [...] history is provided by the patient. No second language tutor was used. Musculoskeletal Problem This is a [...] pain, anorexia, c (more content not included)... [facility] 12-30-2022 History of Presen t illness Narrative [...] history is provided by the patient. No second language tutor was used. Musculoskeletal Problem This is a [...] onset infection in posterior scalp. Carmita Phan APRN.WAREHOUSE MATERIAL HANDLER documented in this encounter [facility] 08-18-2022 Note HNO ID: [id number] Author: Zaki Rubalcava MD Service: ? Author [...] I co-manage: Depression, anxiety (following psychiatry at [facility]) Problems that we manage that are uncontrolled: [...] (H) 4.3 - 5.6 % Final Comment: [place] [employer] guidelines indicate that patients with [...] financial issues f (more content not included)... [facility] 08-18-2022 History of Presen t illness Narrative [...] I co-manage: Depression, anxiety (following psychiatry at [facility]) Problems that we manage that are uncontrolled: [...] (H) 4.3 - 5.6 % Final Comment: [place] [employer] guidelines indicate that patients with [...] Iodide C* Tetracycline documented in this encounter [facility] 08-06-2022 Miscellaneous Notes Formattin g of this note might be different from the original. Spoke with pt regarding on being a pt, pt states she moved to [place] and no longer will be coming to [facility]. Lm for pt to call office and schedule a appointment if she wants to continue care here. Patient needs follow up appt with pcp Verify if patient still active with our office. documented in this encounter [facility] 12-24-2021 Note HNO ID: [id number] Author: Carolina Pierce MD Service: ? 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 Cardiac: Heart (more content not included)... [facility] 12-21-[address] Bright for [...] Adelaida Santos RN documented in this encounter [facility] 06-27-2021 Hospital Discharg e instructions Patient [...] Lips or fingernails turning bullock or blue [phone] [employer]. [address] [place] [address]. All rights reserved. This information is not intended as a substitute for professional medical care. Always follow your healthcare professional's instructions. Follow Up Care 06/27/2021 15:19:51 With:IRLANDA ARCHER Address: [address] [place] [address] [facility] (1) When:2-4 days Comments:Return to ED if symptoms worsen [facility] 06-07-2021 Hospital Discharg e instructions Patient Education [...] Lips or fingernails turning bullock or blue [phone] [employer]. [address] [place] [address], [place] [address]. All rights reserved. This information is not intended as a substitute for professional medical care. Always follow your healthcare professional's instructions. [facility] 06/07/2021 13:30:31 With:Call Physician Referral Address:Unknown When:2-4 days [facility] 05-28-2021 Hospital Discharg e instructions Patient Education [...] affected hand Decreased movement of the hand [phone] [employer]. [address] [place] [address]. All rights reserved. This information is not intended as a substitute for professional medical care. Always follow your healthcare professional's instructions. [facility] 05/28/2021 15:31:23 With:Call Physician Referral Address:Unknown When:2-4 days [facility] 04-09-2021 Hospital Discharg e instructions Patient Education [...] Lips or fingernails turning bullock or blue [phone] [employer]. [address] [place] [address]. All rights reserved. This information is not intended as a substitute for professional medical care. Always follow your healthcare professional's instructions. [facility] 04/09/2021 05:40:57 With:MEDICAL, CLINIC Address: [address] [place] [address]- When:2-4 days [facility] Evaluation + Plan note No data available for this section [facility] documented in this encounter [facility] Summary Purpose Family History No Family [...] DATE CREATED AUTHOR AUTHOR'S ORGANIZ ATION 06/25/2021 [employer] DATE CREATED AUTHOR AUTHOR'S ORGANIZ ATION 08/22/2022 [facility] DATE CREATED AUTHOR AUTHOR'S ORGANIZ ATION 10/27/2022 [facility] ([place]) DATE CREATED AUTHOR AUTHOR'S ORGANIZ ATION 07/04/2023 [facility] Source Comments (unrecognize d section and content) In the event this informatio n is protected by the Federal Confidentiality of Alcohol and Drug Abuse Patient Records regulations: The Federal rules restrict any use of the information to criminally investigate or prosecute any alcohol or drug abuse patient.[facility] the event this information is protected by the Federal Confidentiality of Alcohol and Drug Abuse Patient Records regulations: The Federal rules restrict any use of the information to criminally investigate or prosecute any alcohol or drug abuse patient.[facility] the event this information is protected by the Federal Confidentiality of Alcohol and Drug Abuse Patient Records regulations: The Federal rules restrict any use of the information to criminally investigate or prosecute any alcohol or drug abuse patient.[facility] the event this information is protected by the Federal Confidentiality of Alcohol and Drug Abuse Patient Records regulations: The Federal rules restrict any use of the information to criminally investigate or prosecute any alcohol or drug abuse patient.[facility] Hospital[facility] the event this information is protected by the Federal Confidentiality of Alcohol and Drug Abuse Patient Records regulations: The Federal rules restrict any use of the information to criminally investigate or prosecute any alcohol or drug abuse patient.[facility] the event this information is protected by the Federal Confidentiality of Alcohol and Drug Abuse Patient Records regulations: The Federal rules restrict any use of the information to criminally investigate or prosecute any alcohol or drug abuse patient.[facility] HospitalIn the event this information is protected by the Federal Confidentiality of Alcohol and Drug Abuse Patient Records regulations: The Federal rules restrict any use of the information to criminally investigate or prosecute any alcohol or drug abuse patient.[facility] HospitalIn the event this information is protected by the Federal Confidentiality of Alcohol and Drug Abuse Patient Records regulations: The Federal rules restrict any use of the information to criminally investigate or prosecute any alcohol or drug abuse patient.[facility] the event this information is protected by the Federal Confidentiality of Alcohol and Drug Abuse Patient Records regulations: The Federal rules restrict any use of the information to criminally investigate or prosecute any alcohol or drug abuse patient.[facility] Reason for Visit (unrecogniz ed section and content) Reason Comments Appointment Reason Comments Pain Bilateral hand and f oot pain x1 week, mass behind L ear x2 days Care Teams (unrecognized sec tion and content) Electrical Accessories I Assembler Relationship Specialty Start Date End Date Carolina Pierce MD [address] [place] [address] PCP - General Internal Medicine 11/26/21 Zaki Clement MD [address] [place] [address] PCP Resident Internal Medicine 11/26/21 Electrical Accessories I Assembler Relationship Specialty Start Date End Date Carolina Pierce MD [address] [place] [address] PCP - General Internal Medicine 11/26/21 Zaki Clement MD [address] [place] [address] PCP Resident Internal Medicine 11/26/21 Electrical Accessories I Assembler Relationship Specialty Start Date End Date Carolina Pierce MD [address] [place] [address] PCP - General Internal Medicine 11/26/21 Zaki Clement MD [address] [place], [place] [id number] PCP Resident Internal Medicine 11/26/21 Electrical Accessories I Assembler Relationship Specialty Start Date End Date Carolina Pierce MD [address] [address] PCP - General Internal Medicine 11/26/21 Zaki Clement MD [address] [place] [address] PCP Resident Internal Medicine 11/26/21 [...] BE BASED ON THE PRIMARY CLINICAL RECORDS. [employer] provides no warranty or guarantee of the accuracy or completeness of information in this document.
== END 2023-07-07 07:51 | disposition home or self-care (01) ==
PROVIDERS: Emergency Provider Emergency Medicine; Visit Provider Emergency Medicine
DX: L02.31 Cutaneous abscess of buttock (principal); E11.9 Type 2 diabetes mellitus without complications; Z86.14 Personal history of Methicillin resistant Staphylococcus aureus infection; J45.909 Unspecified asthma, uncomplicated
CPT/HCPCS: 10060; 99283

== ENCOUNTER 2023-07-24 11:23 | Emergency (ER) | payer MEDICAID, SELFPAY ==
[2023-07-24 11:24] VITALS: BP 145/70; PULSE 89; RESP 14; TEMP 36.8; O2SAT 94; BMI 24.5
[2023-07-24 11:51] LABS: Absolute Neutrophil Count 2.1 X10^3/uL (2.0-7.7); Basophil# 0.01 X10^3/uL; Basophil% 0.2 % (0-1); Eosinophil# 0.32 X10^3/uL; Eosinophils% 7.5 % (0-5); Hematocrit 38.5 % (37-47); Lymphocyte % 32.9 % (19-41); Mean Corp Hgb Conc 33.8 g/dL (32-36); Mean Corpuscular Hgb 29.5 pg (27.0-32.0); Mean Corpuscular Volume 87.5 fL (81-99); Mean Platelet Vol. 8.9 fl (6.2-12.0); Monocyte# 0.42 X10^3/uL; Monocyte% 9.9 % (0-10); NRBC Flagged by Analyzer 0 % (0-5); Neutrophil # 2.05 X10^3/uL (2.7-7.7); Neutrophil % 48.1 % (47-70); Platelet Count 232 K/mm3 (150-450); RBC Distribution Width CV 12.8 % (11.6-14.6); RBC Distribution Width SD 40.3 fl (35.1-43.9); White Blood Count 4.3 K/mm3 (4.4-11.0)
[2023-07-24 12:04] LABS: AST(SGOT) 41 U/L (15-37); Alanine Aminotransfer ALT/SGPT 16 U/L (13-56); Albumin, Serum 3.2 g/dL (3.2-5.0); Alkaline Phosphatase 144 U/L (45-117); Anion Gap 7 (5-15); BUN 10 mg/dL (7-18); BUN/Creat Ratio 13.1 RATIO (10-20); Calcium,Total 8.9 mg/dL (8.5-10.1); Chloride 107 mmol/L (98-107); Creatinine, Serum 0.77 mg/dL (0.55-1.02); EST Glomerular Filtration Rate 82 mL/min (>60); Est Glom Filt Rate - Afr Amer 99 mL/min (>60); Estimated Creatinine Clearance 67.58 ml/min; Globulin 3.3 g/dL (2.2-4.2); Glucose 98 mg/dL (74-106); Potassium 3.7 mmol/L (3.5-5.1); Protein, Total 6.5 g/dL (6.4-8.2); Sodium Level 142 mmol/L (136-145)
--- NOTE | 2023-07-24 12:44 | ED.VIS.GI ---
HPI <LILLY Harvey - Last Filed: 07/24/23 19:18> HPI - GI History of Present Illness Chief Complaint: Abd Pain Narrative Narrative: 57-year-old female with PMH of DM2, COPD, bowel obstructions, appendectomy, hysterectomy states about 4 days ago she developed LLQ abdominal pain and decreased appetite. The last 2 days she started to have nausea vomiting and diarrhea. Today she is dry heaving, burping and passing gas but has no more vomiting or diarrhea. Denies blood in her vomit or stool. Normal urination. She states she has not been able to keep down more than a bottle of water over the last few days and is not taking her medications. She has a history of 5 bowel obstructions and states most were managed surgically. Last one was about 8 years ago. PFSH <LILLY Harvey - Last Filed: 07/24/23 19:18> PFS Medical History Anxiety Arthritis Asthma Bilateral carpal tunnel syndrome Bipolar 1 disorder Degenerative disc disease Depression Diabetes Difficulty swallowing Fibromyalgia Gastric reflux History of cellulitis History of diverticulitis Hx of intestinal obstruction MRSA (methicillin resistant staph aureus) culture positive Psoriasis PTSD (post-traumatic stress disorder) Wears glasses Home Medications metformin 500 mg tablet,extended release 24 hr 500 mg PO DAILY Check with primary doctor 07/15/21 [History Last Taken 03/06/22 08:00] trazodone 150 mg tablet 150 mg PO QHS anxiety 07/15/21 [History Last Taken 03/05/22 21:00] albuterol sulfate 90 mcg/actuation aerosol inhaler 2 puff inhalation Q6H PRN shortness of breath or wheezing #8.5 grams 07/16/21 [Rx Last Taken 04/23/23] fluticasone propionate 45 mcg-salmeterol 21 mcg/actuation HFA inhaler (Advair HFA) 2 puff inhalation BID asthma 10/04/21 [History Last Taken 04/23/23] ibuprofen 500 mg PO Q6H PRN PRN Pain 03/06/22 [History Last Taken 03/06/22 08:30] hydroxyzine HCl 25 mg tablet 25 mg PO TID anxiety 11/04/22 [History Last Taken Unknown] omeprazole 40 mg capsule,delayed release 40 mg PO BID 11/04/22 [History Last Taken 04/23/23] atorvastatin 40 mg tablet 20 mg PO QHS 11/25/22 [History Last Taken Unknown] cetirizine 10 mg tablet 10 mg PO DAILY 03/06/23 [History Last Taken Unknown] albuterol sulfate 2.5 mg/3 mL (0.083 %) solution for nebulization 2.5 mg inhalation Q4H PRN shortness of breath or wheezing 04/08/23 [History Last Taken Unknown] dulaglutide 0.75 mg/0.5 mL subcutaneous pen injector (Trulicity) 1.5 mg subcut MATA 04/08/23 [History Last Taken Unknown] fluticasone fur. 200 mcg-umeclid 62.5 mcg-vilant 25 mcg inhalat.powder (Trelegy Ellipta) 1 inh inhalation Q24H 04/08/23 [History Last Taken 04/23/23] lanolin alcohols-mineral oil-w.petrolatum-ceresin topical cream (Minerin Creme topical) 1 applic topical DAILY 04/08/23 [History Last Taken Unknown] sertraline 50 mg tablet 50 mg PO DAILY 04/08/23 [History Last Taken Unknown] acetaminophen 650 mg tablet,extended release (Tylenol Arthritis Pain) 1,300 mg PO Q12H 06/23/23 [History Last Taken Unknown] hydroxyzine HCl 25 mg tablet 50 mg PO QHS 06/23/23 [History Last Taken Unknown] clindamycin HCl 300 mg capsule (Cleocin HCl) 300 mg PO Q6H #40 CAPSULES 07/07/23 [Rx Last Taken Unknown] ondansetron 4 mg disintegrating tablet 4 mg PO Q6H PRN nausea and vomiting #12 tabs 07/24/23 [Rx Last Taken Unknown] Allergy/AdvReac Type Severity Reaction Status Date / Time Tetracyclines Allergy Intermediate Rash Verified 07/24/23 11:24 aminophylline Allergy Swelling Verified 07/24/23 11:24 amphetamine [From Adderall] Allergy Other Verified 07/24/23 11:24 dextroamphetamine Allergy Other Verified 07/24/23 11:24 [From Adderall] Iodinated Contrast Media [CT] Allergy Swelling Verified 07/24/23 11:24 iodine Allergy Swelling Verified 07/24/23 11:24 povidone-iodine Allergy Swelling Verified 07/24/23 11:24 [From Betadine] shellfish derived Allergy Swelling Verified 07/24/23 11:24 Sulfa (Sulfonamide Allergy Swelling Verified 07/24/23 11:24 Antibiotics) buspirone [From BuSpar] AdvReac Intermediate Other Verified 07/24/23 11:24 allantoin [From Blistex] AdvReac Swelling Verified 07/24/23 11:24 aloe vera [From Blistex] AdvReac Swelling Verified 07/24/23 11:24 camphor [From Blistex] AdvReac Swelling Verified 07/24/23 11:24 chamomile flower AdvReac Swelling Verified 07/24/23 11:24 [From Blistex] dimethicone [From Blistex] AdvReac Swelling Verified 07/24/23 11:24 herbal complex no.57 AdvReac Swelling Verified 07/24/23 11:24 [From Blistex] homosalate [From Blistex] AdvReac Swelling Verified 07/24/23 11:24 menthol [From Blistex] AdvReac Swelling Verified 07/24/23 11:24 meradimate [From Blistex] AdvReac Swelling Verified 07/24/23 11:24 octinoxate [From Blistex] AdvReac Swelling Verified 07/24/23 11:24 octyl salicylate AdvReac Swelling Verified 07/24/23 11:24 [From Blistex] oxybenzone [From Blistex] AdvReac Swelling Verified 07/24/23 11:24 padimate O [From Blistex] AdvReac Swelling Verified 07/24/23 11:24 petrolatum,hydrophilic AdvReac Swelling Verified 07/24/23 11:24 [From Blistex] phenol [From Blistex] AdvReac Swelling Verified 07/24/23 11:24 tetracycline AdvReac Rash Verified 07/24/23 11:24 Family History Father Diabetes Heart disease Mother Diabetes Heart disease Sister Heart disease Thyroid disorder Surgical History History of carpal tunnel surgery History of intestinal surgery History of lumpectomy of right breast History of right breast biopsy (~11/2021) Hx of appendectomy Hx of bilateral oophorectomy Hx of breast surgery Hx of hysterectomy Hx of repair of right rotator cuff Hx of surgical procedure Hx of tooth extraction Social History household members: spouse Smoking Status: Current every day smoker tobacco type: cigarettes alcohol intake: never substance use type: does not use ROS <LILLY Harvey - Last Filed: 07/24/23 19:18> ROS ED ROS Narrative Constitutional: Negative for fever, chills, malaise. CVS: Negative for chest pain. Respiratory: Negative for shortness of breath, cough. GI: Positive for abdominal pain, nausea, vomiting, diarrhea. Negative for melena, hematochezia. : Negative for dysuria, hematuria or frequency. EXAM <LILLY Harvey - Last Filed: 07/24/23 19:18> Physical Exam Narrative Exam Narrative: CONST: Patient sitting in no acute distress. EYES: Normal inspection. NECK: Normal inspection. RESP: No respiratory distress, CTAB. CVS: Regular rate and rhythm, no murmur, no gallop. ABD: Soft with LLQ tenderness, no guarding or rebound, nondistended. SKIN: Color normal, no rash, warm, dry, intact. EXTREMITIES: Normal appearance, no pedal edema. NEURO: Oriented x4. PSYCH: Normal affect. Const Vital Signs: 07/24/23 11:24 07/24/23 14:00 07/24/23 15:25 Temperature 98.3 F 98 F Temperature Source Temporal Pulse Rate 89 81 67 Respiratory Rate 14 14 16 Blood Pressure 145/70 H 142/73 H 139/83 H Blood Pressure Mean 95 96 101 Pulse Ox 94 96 Oxygen Delivery Method Room Air Room Air <Dr. Aniceto Tillman, DO - Last Filed: 07/24/23 16:21> Physical Exam Const Vital Signs: 07/24/23 11:24 07/24/23 14:00 07/24/23 15:25 Temperature 98.3 F 98 F Temperature Source Temporal Pulse Rate 89 81 67 Respiratory Rate 14 14 16 Blood Pressure 145/70 H 142/73 H 139/83 H Blood Pressure Mean 95 96 101 Pulse Ox 94 96 Oxygen Delivery Method Room Air Room Air MDM <LILLY Harvey - Last Filed: 07/24/23 19:18> MDM MDM Narrative Medical decision making narrative: Patient has LLQ abdominal pain and recent N/V/D. Today he is burping and passing gas. She appears well and nontoxic and is afebrile with normal vital signs. Abdomen is soft with LLQ tenderness and no peritoneal signs. Labs show white count of 4.3. CMP unremarkable. UA has contamination with leukocyte Estrace and 5-10 WBCs but is nitrite and bacteria negative. She does not have urinary symptoms and it will be cultured. CT scan is negative. Notes possible mild enteritis. After IV fluids, morphine and Zofran she was reassessed and is feeling better. She is tolerating p.o. intake drinking fluids and eating applesauce. I prescribed Zofran as needed for home and discussed return precautions. She was discharged in stable condition, Differential: Gastroenteritis, diverticulitis, obstruction This patient was seen with a PA/STREET LIGHT REPAIRER Individually assessed they patient including history and physical. I have reviewed everything on the chart that is available and agree with the documentation provided by the PA/STREET LIGHT REPAIRER including discussion about the assessment, treatment plan, discussion, and return precautions. Patient workup ultimately normal. Abdominal exam is benign. Labs are normal and CT is negative. To be discharged home. Lab Data Attestation: I reviewed the patient's lab results. Labs: Laboratory Results - last 24 hr 07/24/23 07/24/23 11:30 12:50 WBC 4.3 L RBC 4.40 Hgb 13.0 Hct 38.5 MCV 87.5 MCH 29.5 MCHC 33.8 RDW Std Deviation 40.3 RDW Coeff of Elsi 12.8 Plt Count 232 MPV 8.9 Immature Gran % (Auto) 1.400 H Neut % (Auto) 48.1 Lymph % (Auto) 32.9 Randall % (Auto) 9.9 Eos % (Auto) 7.5 H Baso % (Auto) 0.2 Absolute Neuts (auto) 2.1 Absolute Lymphs (auto) 1.40 Nucleated RBC % 0 Sodium 142 Potassium 3.7 Chloride 107 Carbon Dioxide 28.0 Anion Gap 7 BUN 10 Creatinine 0.77 Estim Creat Clear Calc 67.58 Est GFR (MDRD) Af Amer 99 Est GFR (MDRD) Non-Af 82 BUN/Creatinine Ratio 13.1 Glucose 98 Calcium 8.9 Total Bilirubin 0.70 AST 41 H ALT 16 Alkaline Phosphatase 144 H Total Protein 6.5 Albumin 3.2 Globulin 3.3 Albumin/Globulin Ratio 1.0 Urine Color Yellow Urine Clarity Sl. Cloudy Urine pH 6.5 Ur Specific [place] 1.010 Urine Protein Negative Urine Glucose (UA) Normal Urine Ketones 5 H Urine Occult Blood Negative Urine Nitrite Negative Urine Bilirubin Negative Urine Urobilinogen Normal Ur Leukocyte Esterase 500 H Urine RBC 0 SEEN Urine WBC 5-10 SEEN Ur Squamous Epith Cells 10-25 SEEN Urine Bacteria 0 SEEN Urine Mucus 0 SEEN Radiography Diagnostic Testing: Clinical Impression(s) from Imaging Studies Abdomen/Pelvis CT 07/24/23 13:03 IMPRESSION: 1. Diverticulosis without evidence of acute diverticulitis. 2. Nonspecific fluid-filled small bowel loops without evidence of bowel obstruction. Mild enteritis is possible. Electronically Signed: Danielito Mathews MD at 13:52 EST , <Dr. Aniceto Tillman, DO - Last Filed: 07/24/23 16:21> [facility] MDM Narrative Medical decision making narrative: Patient has LLQ abdominal pain and recent and/V/D. Today he is burping and passing gas. She appears well and nontoxic and is afebrile with normal vital signs. Abdomen is soft with LLQ tenderness and no peritoneal signs. Labs show white count of 4.3. CMP unremarkable. UA has contamination with leukocyte Estrace and 5-10 WBCs but is nitrite and bacteria negative. She does not have urinary symptoms and it will be cultured. This patient was seen with a PA/STREET LIGHT REPAIRER Individually assessed they patient including history and physical. I have reviewed everything on the chart that is available and agree with the documentation provided by the PA/STREET LIGHT REPAIRER including discussion about the assessment, treatment plan, discussion, and return precautions. Patient workup ultimately normal. Abdominal exam is benign. Labs are normal and CT is negative. To be discharged home. Lab Data Labs: Laboratory Results - last 24 hr 07/24/23 07/24/23 11:30 12:50 WBC 4.3 L RBC 4.40 Hgb 13.0 Hct 38.5 MCV 87.5 MCH 29.5 MCHC 33.8 RDW Std Deviation 40.3 RDW Coeff of Elsi 12.8 Plt Count 232 MPV 8.9 Immature Gran % (Auto) 1.400 H Neut % (Auto) 48.1 Lymph % (Auto) 32.9 Randall % (Auto) 9.9 Eos % (Auto) 7.5 H Baso % (Auto) 0.2 Absolute Neuts (auto) 2.1 Absolute Lymphs (auto) 1.40 Nucleated RBC % 0 Sodium 142 Potassium 3.7 Chloride 107 Carbon Dioxide 28.0 Anion Gap 7 BUN 10 Creatinine 0.77 Estim Creat Clear Calc 67.58 Est GFR (MDRD) Af Amer 99 Est GFR (MDRD) Non-Af 82 BUN/Creatinine Ratio 13.1 Glucose 98 Calcium 8.9 Total Bilirubin 0.70 AST 41 H ALT 16 Alkaline Phosphatase 144 H Total Protein 6.5 Albumin 3.2 Globulin 3.3 Albumin/Globulin Ratio 1.0 Urine Color Yellow Urine Clarity Sl. Cloudy Urine pH 6.5 Ur Specific [place] 1.010 Urine Protein Negative Urine Glucose (UA) Normal Urine Ketones 5 H Urine Occult Blood Negative Urine Nitrite Negative Urine Bilirubin Negative Urine Urobilinogen Normal Ur Leukocyte Esterase 500 H Urine RBC 0 SEEN Urine WBC 5-10 SEEN Ur Squamous Epith Cells 10-25 SEEN Urine Bacteria 0 SEEN Urine Mucus 0 SEEN Radiography Diagnostic Testing: Clinical Impression(s) from Imaging Studies Abdomen/Pelvis CT 07/24/23 13:03 IMPRESSION: 1. Diverticulosis without evidence of acute diverticulitis. 2. Nonspecific fluid-filled small bowel loops without evidence of bowel obstruction. Mild enteritis is possible. Electronically Signed: Danielito Mathews MD at 13:52 EST , Discharge Plan Triage Chief Complaint: Abd Pain ED Midlevel Provider: Caroline Price ED Provider: Aniceto Tillman Dx/Rx/DC Orders Clinical Impression: Abdominal pain, Enteritis Instructions: Abdominal Pain Prescriptions: New ondansetron 4 mg tablet,disintegrating 4 mg PO Q6H PRN (Reason: nausea and vomiting) Qty: 12 0RF No Action hydroxyzine HCl 25 mg tablet 25 mg PO TID Patient Comments: TAKE ONE TABLET BY MOUTH 2-3 TIMES DAILY NEEDED FOR ANXIETY omeprazole 40 mg capsule,delayed release(DR/EC) 40 mg PO BID Patient Comments: TAKE 1 CAPSULE BY MOUTH TWICE DAILY cetirizine 10 mg tablet 10 mg PO DAILY Patient Comments: TAKE ONE TABLET BY MOUTH EVERY DAY trazodone 150 mg tablet 150 mg PO QHS Patient Comments: take 1 and 1/2 tablet DAILY AT BEDTIME metformin 500 mg tablet extended release 24 hr 500 mg PO DAILY albuterol sulfate 90 mcg/actuation HFA aerosol inhaler 2 puff inhalation Q6H PRN (Reason: shortness of breath or wheezing) Qty: 8.5 0RF fluticasone propion-salmeterol [Advair HFA] 45-21 mcg/actuation HFA aerosol inhaler 2 puff INHALATION BID ibuprofen 500 mg PO Q6H PRN PRN (Reason: Pain) atorvastatin 40 mg tablet 20 mg PO QHS Patient Comments: TAKE ONE TABLET BY MOUTH AT BEDTIME albuterol sulfate 2.5 mg /3 mL (0.083 %) solution for nebulization 2.5 mg inhalation Q4H PRN (Reason: shortness of breath or wheezing) Patient Comments: inhale ONE ampule EVERY 4 TO 6 HOURS NEEDED Trelegy Ellipta 200-62.5-25 mcg blister with device 1 inh INHALATION Q24H Patient Comments: INHALE 1 PUFF BY MOUTH EVERY DAY sertraline 50 mg tablet 50 mg PO DAILY Patient Comments: TAKE ONE TABLET BY MOUTH EVERY DAY Minerin Creme Cream 1 applic TOPICAL DAILY Patient Comments: apply to lower legs liberally twice daily Trulicity 0.75 mg/0.5 mL pen injector 1.5 mg SUBCUT MATA Patient Comments: inject 0.75 mg subcutaneous every week as directed hydroxyzine HCl 25 mg tablet 50 mg PO QHS acetaminophen [Tylenol Arthritis Pain] 650 mg tablet extended release 1,300 mg PO Q12H clindamycin HCl [Cleocin HCl] 300 mg capsule 300 mg PO Q6H Qty: 40 0RF Primary Care Provider: [facility] Shahida Lopez Referrals: [facility] Shahida Lopez [Primary Care Provider] - Activity Restrictions/Additional Instructions: Take zofran as needed for nausea and vomiting, sip fluids throughout the day, slowly introduce bland diet Disposition Disposition: Home, Self Care Discharge Date/Time: 07/24/23 15:27
[2023-07-24] MEDS: Morphine 4 MG/ML Syringe IV (12:56)
[2023-07-24] MEDS: Ondansetron 4 MG/2 ML Vial IV (12:56)
[2023-07-24] MEDS: 0.9% Normal Saline (1000mL) 1,000 ML 999 ML IV (12:56)
--- NOTE | 2023-07-24 13:03 | CT_ITS ---
INDICATION: Abdominal pain EXAMINATION: CT ABDOMEN AND PELVIS WITHOUT CONTRAST TECHNIQUE: Helically acquired images were obtained of the abdomen and pelvis without oral or IV contrast. A radiation dose optimization technique was used for this scan. IV Contrast dosage and agent: None. Oral contrast: None. RADIATION DOSAGE (If Supplied By Facility): CTDIvol = ( 7.15 ) mGy, DLP = ( 331.68 ) mGycm COMPARISON: No relevant prior comparison study available FINDINGS: LOWER CHEST: Mild atelectasis or scarring in the right middle lobe and lingula. No cardiomegaly or pericardial effusion. LIVER: Homogeneous. No focal mass is seen without contrast. GALLBLADDER AND BILIARY TREE: No calcified gallstones. No gallbladder distension or wall edema. No intra- or extrahepatic biliary ductal dilation. PANCREAS: No focal cystic or solid mass. SPLEEN: Normal size without focal cystic or solid mass. ADRENAL GLANDS: No nodules. KIDNEYS AND URETERS: Normal renal size and position. No hydronephrosis. PERITONEUM: No ascites or free air. No other fluid collection. BOWEL: Surgical clip in the right lower quadrant could be due to previous appendectomy. Sigmoid diverticulosis without evidence of acute diverticulitis. Nonspecific fluid-filled small bowel loops without evidence of bowel obstruction. LYMPH NODES: No enlarged mesenteric or retroperitoneal lymph nodes. VESSELS: Atherosclerotic calcifications of the abdominal aorta without evidence of aneurysm. URINARY BLADDER: Unremarkable. REPRODUCTIVE ORGANS: No pelvic masses. Absent uterus consistent with previous hysterectomy. ABDOMINAL WALL: No discrete abdominal or pelvic wall hernia. BONES: No lytic or blastic abnormality. CT/Abdomen/Pelvis without Cont IMPRESSION: 1. Diverticulosis without evidence of acute diverticulitis. 2. Nonspecific fluid-filled small bowel loops without evidence of bowel obstruction. Mild enteritis is possible. Electronically Signed: Danielito Mathews MD at 13:52 EST ,
[2023-07-24 13:05] LABS: Bacteria 0 SEEN /hpf (None Seen); Mucous, Urine 0 SEEN /hpf (<or=2+); Red Blood Cells-Urine 0 SEEN /hpf (0-5)
[2023-07-24 13:12] LABS: Color, Urine Yellow (Yellow); Glucose, Dipstick Normal (Normal); Ketone-Dipstick 5 mg/dl (Negative); Leukocyte Esterase-Dipstick 500 /ul (Negative); Nitrite-Dipstick Negative (Negative); Occult Blood-Urine Negative /ul (Negative); Protein-Dipstick Negative (Negative); Urine Bilirubin Dipstick Negative (Negative); Urine Clarity Sl. Cloudy (Clear); Urine Urobilinogen Normal (Normal); Urine pH 6.5 (5.0 - 8.0)
[2023-07-24 13:26] LABS: Squamous Epithelial Cells - UA 10-25 SEEN /hpf (5-10); White Blood Cells 5-10 SEEN /hpf (0-5)
[2023-07-24 14:00] VITALS: BP 142/73; PULSE 81; RESP 14
[2023-07-24 15:25] VITALS: BP 139/83; PULSE 67; RESP 16; TEMP 36.6; O2SAT 96
== END 2023-07-24 15:27 | disposition home or self-care (01) ==
PROVIDERS: Emergency Provider Student in an Organized Health Care Education/Training Program; Visit Provider Student in an Organized Health Care Education/Training Program
DX: K52.9 Noninfective gastroenteritis and colitis, unspecified (principal); J44.9 Chronic obstructive pulmonary disease, unspecified; E11.9 Type 2 diabetes mellitus without complications; R10.32 Left lower quadrant pain; F17.210 Nicotine dependence, cigarettes, uncomplicated; Z79.84 Long term (current) use of oral hypoglycemic drugs; Z79.899 Other long term (current) drug therapy; Z90.710 Acquired absence of both cervix and uterus
CPT/HCPCS: 74176; 80053; 81001; 85025; 87086; 87088; 96361; 96374; 96375; 99283; J7030; A4216; J2405

== ENCOUNTER 2023-08-12 07:46 | Day surgery (SDC) | payer MEDICAID, SELFPAY ==
[2023-08-12 08:16] VITALS: BP 146/87; PULSE 90; RESP 16; TEMP 36.8; O2SAT 99; BMI 23.9
[2023-08-12] MEDS: Lactated Ringers 1,000 ML 15 ML IV (08:25)
--- NOTE | 2023-08-12 09:00 | IMM_PTH ---
PATIENT: LEAH JERRY LOC: EN U#:[id number] AGE/SX: 57/F ROOM: RE08/12/[address]: Dr. Mahesh Robert MD : 1965 BED: DIS: 08/12/2023 SPEC #: [id number] RECD: 08/12/23 13:38 STATUS: KANA REYu #: [id number] IRMA: 08/12/23 09:[address]: Mahesh Robert DEPT: IMMUNOHISTOCHEMISTRY RECD BY: Adama Olivarez ENTERED: 08/12/23 13:39 SP TYPE: IMMUNO OTHR DR: Shahida [facility] Tissues: A - Stomach, NOS Procedures: H Pylori (initial) PHYSICIAN & INSTITUTION [place] [id number] SPECIMEN INFORMATION: Tissue Source: A. Antrum biopsy Clinical Info: Gastroesophageal reflux disease, Status post dilation of esophageal narrowing, Screening colonoscopy Specimen Number: [id number] CPT code: 67205 METHODOLOGY: Deparaffinized sections of prefer/formalin-fixed tissue or PAP/DQ stained slides are incubated with monoclonal/polyclonal antibodies/oligonucleotide probes. Localization is made via biotin free immunoperoxidase method. Appropriate controls are performed and reacted as expected. Results on target cell population are indicated in the following table: RESULTS: ANTIBODY / CLONE RESULT H Pylori (polyclonal) negative These tests were developed and their performance characteristics determined by [facility]. They may not have been cleared or approved by the U.S. Food and Drug Administration. The FDA has determined that such clearance or approval is not necessary. The above immunohistochemical/dualISH markers are ordered and reviewed by the Pathologist. INTERPRETATION: A. Antrum , biopsy; Negative for Helicobacter pylori organisms. RANDI/ 08/14/2023
--- NOTE | 2023-08-12 09:00 | EGD_PTH ---
[id number] LOC: EN U#:[id number] AGE/SX: 57/F ROOM: RE08/12/[address]: Dr. Mahesh Robert MD : 1965 BED: DIS: 08/12/2023 SPEC #: [id number] RECD: 08/12/23 10:53 STATUS: KANA HERONYu #: [id number] IRMA: 08/12/23 09:[address]: Mahesh Robert DEPT: SURGICAL PATHOLOGY RECD BY: Ira Hernandez ENTERED: 08/12/23 11:47 SP TYPE: EGD BIOPSY OTHR DR: [facility] Tissues: A - Gastric mucous membrane B - Gastric mucous membrane C - Gastric fundus D - Stomach, NOS E - Esophagus, NOS F - Esophagus, NOS G - Sigmoid colon biopsy Procedures: Special Stain Group II Special Stain Group I Surgery Specimen Level IV GMS Stain (control) Alcian Blue/PAS (control) HEADER OPERATION: Colonoscopy with biopsy, EGD with biopsy and Electrohemostasis PRE-OP DIAGNOSIS: Gastroesophageal reflux disease, status post dilation of esophagus narrowing, screening colonoscopy TISSUE SUBMITTED: A- Antrum biopsy, B- Posterior wall polyp biopsy, C- Fundus polyp biopsy, D- Body of stomach mucosa biopsy, E- Z line biopsy, F- Upper third esophageal plaque biopsy, G- Sigmoid colon polyp biopsy MICROSCOPIC DIAGNOSIS A. Gastric antrum, biopsy; Mild chronic gastritis. See comment. B. Posterior wall of stomach polyp, biopsy; Fragments of gastric mucosa with mild chronic inflammation. C. Fundus polyp, biopsy; Fragments of superficial gastric mucosa with minimal chronic inflammation. D. Gastric body, biopsy; Fragments of benign superficial gastric mucosa. E. Z-line biopsy; Gastroesophageal junctional mucosa with chronic inflammation. Focal changes of reflux. No evidence of goblet cell metaplasia. See comment. F. Upper third of esophagus, biopsy; Focal minimal acute inflammation. No evidence of fungal organisms. See comment. G. Sigmoid colon polyp, biopsy: Polypoid fragment of benign colonic mucosa. See comment. [place]/ 08/13/23 COMMENT A. The results of immunohistochemistry for Helicobacter pylori will be reported separately ([id number]). E. Alcian blue/PAS stain with matched control supports the above diagnosis. F. GMS stain with matched control was used in the evaluation of this case. G. Neither hyperplastic nor adenomatous change is identified. Clinical correlation is suggested. MICROSCOPIC DESCRIPTION Slides are reviewed. GROSS DESCRIPTION A. Received in fixative is one container labeled with the patient's name and designated Antrum biopsy. The specimen consists of one irregular fragment of light christian soft tissue that measures 0.3 x 0.3 x 0.1 cm. The specimen is totally submitted in one cassette. B. Received in fixative is one container labeled with the patient's name and designated Posterior wall polyp biopsy. The specimen consists of one irregular fragment of light christian soft tissue that measures 0.3 x 0.3 x 0.1 cm. The specimen is totally submitted in one cassette. C. Received in fixative is one container labeled with the patient's name and designated Fundus polyp biopsy. The specimen consists of one irregular fragment of light christian soft tissue that measures 0.5 x 0.4 x 0.1 cm. The specimen is totally submitted in one cassette. D. Received in fixative is one container labeled with the patient's name and designated Body of stomach mucosa biopsy. The specimen consists of two irregular fragments of light christian soft tissue that in aggregate measure 0.4 x 0.2 x 0.1 cm. The specimen is totally submitted in one cassette. E. Received in fixative is one container labeled with the patient's name and designated Z line biopsy. The specimen consists of two irregular fragments of light christian soft tissue that in aggregate measure 0.6 x 0.2 x 0.1 cm. The specimen is totally submitted in one cassette. F. Received in fixative is one container labeled with the patient's name and designated Upper third esophagus plaque biopsy. The specimen consists of two irregular fragments of light christian soft tissue that in aggregate measure 0.6 x 0.3 x 0.1 cm. The specimen is totally submitted in one cassette. G. Received in fixative is one container labeled with the patient's name and designated Sigmoid colon polyp biopsy. The specimen consists of one irregular fragment of light christian soft tissue that measures 0.3 x 0.3 x 0.1 cm. The specimen is totally submitted in one cassette. RANDI/ 08/12/2023 TC:2 CPT: [id number]
--- NOTE | 2023-08-12 09:04 | HP.PCM_ITS ---
History and Physical Date of Admission: 08/12/23 Date of Service: 05/07/23 MR#: [id number] Acct: [id number] Name: LEAH JERRY Rep #: [id number] : 1965 Provider: Dr. Mahesh Robert MD Age/Sex: 57/F Location: [facility] Status: Signed Intake Vital Signs 04/23/2311:10 05/07/2309:40 Height 5 ft 2 in 5 ft 2 in Weight: 146 lb BMI 26.6 BP 104/72 Blood Pressure Location Rt brachial Position Sitting Respiration 17 Pulse 87 Pulse Source Monitor Temp 97 F L Temp Source Temporal Pulse Oximetry (%) 98 Oxygen Delivery Method room air Intake Visit Reasons: Gastroesophageal reflux disease (GERD) Chief Complaint: GERD Is patient in pain?: No Allergies Tetracyclines Allergy (Intermediate, Verified 05/07/23 09:43) Rashaminophylline Allergy (Verified 05/06/23 08:59) Swellingamphetamine [From Adderall] Allergy (Verified 05/06/23 08:59) Otherdextroamphetamine [From Adderall] Allergy (Verified 05/06/23 08:59) OtherIodinated Contrast Media [CT] Allergy (Verified 05/06/23 08:59) Swellingiodine Allergy (Verified 05/06/23 08:59) Swellingpovidone-iodine [From Betadine] Allergy (Verified 05/06/23 08:59) Swellingshellfish derived Allergy (Verified 05/06/23 08:59) SwellingSulfa (Sulfonamide Antibiotics) Allergy (Verified 05/06/23 08:59) Swellingbuspirone [From BuSpar] Adverse Reaction (Intermediate, Verified 05/06/23 08:59) Otherallantoin [From Blistex] Adverse Reaction (Verified 05/06/23 08:59) Swellingaloe vera [From Blistex] Adverse Reaction (Verified 05/06/23 08:59) Swellingcamphor [From Blistex] Adverse Reaction (Verified 05/06/23 08:59) Swellingchamomile flower [From Blistex] Adverse Reaction (Verified 05/06/23 08:59) Swellingdimethicone [From Blistex] Adverse Reaction (Verified 05/06/23 08:59) Swellingherbal complex no.57 [From Blistex] Adverse Reaction (Verified 05/06/23 08:59) Swellinghomosalate [From Blistex] Adverse Reaction (Verified 05/06/23 08:59) Swellingmenthol [From Blistex] Adverse Reaction (Verified 05/06/23 08:59) Swellingmeradimate [From Blistex] Adverse Reaction (Verified 05/06/23 08:59) Swellingoctinoxate [From Blistex] Adverse Reaction (Verified 05/06/23 08:59) Swellingoctyl salicylate [From Blistex] Adverse Reaction (Verified 05/06/23 08:59) Swellingoxybenzone [From Blistex] Adverse Reaction (Verified 05/06/23 08:59) Swellingpadimate O [From Blistex] Adverse Reaction (Verified 05/06/23 08:59) Swellingpetrolatum,hydrophilic [From Blistex] Adverse Reaction (Verified 05/06/23 08:59) Swellingphenol [From Blistex] Adverse Reaction (Verified 05/06/23 08:59) Swellingtetracycline Adverse Reaction (Verified 05/06/23 08:59) Rash Medications metformin 500 mg tablet,extended release 24 hr 500 mg PO DAILY Check with primary doctor 07/15/21 [History Confirmed 05/07/23] trazodone 150 mg tablet 150 mg PO QHS anxiety 07/15/21 [History Confirmed 05/07/23] albuterol sulfate 90 mcg/actuation aerosol inhaler 2 puff inhalation Q6H PRN shortness of breath or wheezing #8.5 grams 07/16/21 [Rx Confirmed 05/06/23] fluticasone propionate 45 mcg-salmeterol 21 mcg/actuation HFA inhaler (Advair HFA) 2 puff inhalation BID asthma 10/04/21 [History Confirmed 05/07/23] ibuprofen 500 mg PO Q6H PRN PRN Pain 03/06/22 [History Confirmed 05/07/23] hydroxyzine HCl 25 mg tablet 25 mg PO BID PRN anxiety 11/04/22 [History Confirmed 05/07/23] omeprazole 40 mg capsule,delayed release 40 mg PO BID 11/04/22 [History Confirmed 05/07/23] atorvastatin 40 mg tablet 20 mg PO QHS 11/25/22 [History Confirmed 05/07/23] cetirizine 10 mg tablet 10 mg PO DAILY 03/06/23 [History Confirmed 05/06/23] meloxicam 7.5 mg tablet 7.5 mg PO DAILY 03/06/23 [History Confirmed 05/07/23] tizanidine 4 mg tablet 4 mg PO BID 03/06/23 [History Confirmed 05/07/23] albuterol sulfate 2.5 mg/3 mL (0.083 %) solution for nebulization 2.5 mg inhalation Q4H PRN shortness of breath or wheezing 04/08/23 [History Confirmed 05/07/23] dulaglutide 0.75 mg/0.5 mL subcutaneous pen injector (Trulicity) 1.5 mg subcut MATA 04/08/23 [History Confirmed 05/07/23] fluticasone fur. 200 mcg-umeclid 62.5 mcg-vilant 25 mcg inhalat.powder (Trelegy Ellipta) 1 inh inhalation Q24H 04/08/23 [History Confirmed 05/07/23] lanolin alcohols-mineral oil-w.petrolatum-ceresin topical cream (Minerin Creme topical) 1 applic topical DAILY 04/08/23 [History Confirmed 05/07/23] sertraline 50 mg tablet 50 mg PO DAILY 04/08/23 [History Confirmed 05/07/23] tramadol 50 mg tablet 50 mg PO Q6H 04/08/23 [History Confirmed 05/07/23] PFSH Medical History Anxiety Arthritis Asthma Bilateral carpal tunnel syndrome Bipolar 1 disorder Degenerative disc disease Depression Diabetes Difficulty swallowing Fibromyalgia Gastric reflux GERD (gastroesophageal reflux disease) History of cellulitis History of diverticulitis History of steroid therapy Hx of intestinal obstruction MRSA (methicillin resistant staph aureus) culture positive PTSD (post-traumatic stress disorder) Wears glasses Surgical History (Updated 05/07/23 @ 18:[address] Mahesh Robert MD) History of carpal tunnel surgery History of intestinal surgery History of lumpectomy of right breast History of right breast biopsy (~11/2021) Hx of appendectomy Hx of bilateral oophorectomy Hx of breast surgery Hx of hysterectomy Hx of repair of right rotator cuff Hx of surgical procedure Hx of tooth extraction Family History (Updated 05/07/23 @ 09:40 by Marybeth Suazo) Father Diabetes Heart diseaseMother Diabetes Heart diseaseSister Heart disease Thyroid disorder Social History household members: spouse Smoking Status: Never smoker alcohol intake: never substance use type: does not use HPI HPI HPI: Patient is a 57-year-old female who presents for who presents for further evaluation of gastroesophageal reflux disease and trouble swallowing. She was previously under my care for a history of a right axillary abscess November 2021. When asked if she has had follow-up mammography she confesses that she was out of town when the first appointment phone call and out but she is intending to make this follow-up as she has experienced some lumps on both sides. As far as her present symptoms she describes that food is being stuck behind her breastbone with increasing frequency over the last 4 months. She notes that this feels similar to how it did 17 years ago when she underwent EGD with esophageal dilation. She states this procedure was done in [facility] but no cause for the narrowing was ever given as far she recalls. Ever since this time she has remained on a PPI medication and has remained on a stable dose of this medication through the [facility] clinic. In addition to the above she has noticed a dry cough for the last 3 weeks and suspects that it may be related to her reflux. Other associated symptoms include nausea which she experiences daily, vomiting which she will have in response to her swallowing/choking episodes, and bloating which seems to be worse the past 8 months just prior to going to bed. She does confirm that her weight is stable. She also confirms that she is intentionally avoiding spicy foods and props herself up at night when she lies down. She shares that her routine is to eat dinner at 6 PM and does not do any after dinner snacking. She retires to bed at approximately 9:30 PM. She confesses that she drinks a significant amount of caffeine and fairly routinely drinks [address] Valle each day. Later in the course of her history taking Mrs. Jerry other offhand mentions that she was diagnosed with H. pylori approximately 23 years ago and required treatment for this infection. When queried about her lower GI health she shares that her last colonoscopy was approximately 17 years ago (just prior to her EGD mentioned above). Discussing her bowel habits, she denies any blood and suggest that she has some constipation with bowel movements only every 3 days but this is normal for her. She does confirm that there is some straining. However, she has minimal toilet time and suggested her bowel movements are passed with only a couple of minutes. Mrs. Jerry shares a family history of stomach cancer in her grandfather, but denies any other GI related illnesses in her parents or siblings. ROS General General: Yes fatigue; No weight change, appetite, colon cancer, breast cancer or weakness HEENT HEENT: Yes difficulty swallowing and swollen glands; No eye injury, eye surgery or hoarseness Endo Endocrine: Yes diabetes mellitus; No thyroid disease, thyroid cancer, Hair loss, heat intolerance or cold intolerance Skin Skin: Yes rash; No changing moles Musc Musculoskeletal: Yes back problems and arthritis; No rheumatoid arthritis, gout or joint pain Cardio Cardiovascular: No murmur, pacemaker, heart disease, atrial fibrillation, high blood pressure, heart attack, heart stent, palpitations, shortness of breat with exertion or chest pain Psych Psychiatric: Yes depression and anxiety; No hearing voices Resp Respiratory: No shortness of breath, No sleep apnea, Yes cough, No COPD, Yes asthma, No emphysema and No wheezing Gastro Gastrointestinal: No abdominal pain, Yes nausea or vomiting, No diarrhea, No constipation, No blood in stool, Yes acid reflux, Yes hemorrhoids, No ulcers, No gallbladder problem and No black,tarry stools Khris Hematologic: No blood thinners, No blood disorders, No bleeding, No anemia and No blood clots Neuro Neurologic: No system reviewed and no additional complaints, except as documented, No as per HPI, No abnormal gait, No abnormal hearing, No abnormal movements, No abnormal speech, No behavioral changes, No burning sensations, No confusion, No convulsions, No disequilibrium, No dizziness, No localized weakness, No frequent falls, No headache(s), No lack of coordination, No loss of vision, No memory loss, Yes numbness, No other visual disturbances, No radicular pain, No restless legs, No sensory deficit, No syncope, Yes tingling, No tremor(s), No weakness and No other Exam Const General: cooperative and no acute distress Orientation: alert, awake and oriented x3 Resp Effort & Inspection: normal respiratory effort GI Other: Multiple abdominal striae present, well-healed periumbilical scar. There is minimal abdominal distention and some periumbilical tenderness but no guarding. At 1 point it does feel as though there is reduction of a epigastric hernia approximately 4 cm cephalad to her umbilicus but I cannot be sure I feel a fascial defect. Assessment and Plan Assessment and Plan (1) Gastroesophageal reflux disease: Plan: This is a 57-year-old female who presents for refractory symptoms of gastroesophageal reflux disease despite faithful use of proton pump inhibitor therapy. This has been a chronic therapy for Mrs. Jerry and she is experien cing now progressive symptoms of reflux, food sticking, nausea, vomiting, and bloating. Taken together this is suggestive of probable hiatal hernia with possible additional pathology. She describes some tenderness on exam in the periumbilical and epigastric region but I do not feel a clear hernia. I believe any abdominal wall pathology is separate from her main complaints today. Therefore, I have recommended that we pursue a focused workup of her main complaints through an upper GI swallow with small bowel follow-through as well as a diagnostic EGD. She does report a history of esophageal stricture so she will be consented for possible dilation at the time of her EGD and I will also plan to proceed to H. pylori biopsy as she has a history of this infection as well. In the meantime we will obtain the fluoroscopic exam to evaluate for any primary esophageal narrowing or evidence of the above. (2) Status post dilation of esophageal narrowing: Status: Acute Orders: Orders Upper GI w/BA Swallow Today K21.9 - Gastro-esophageal reflux disease without esophagitis I have examined the patient the following changes are noted: Patient reports that she did go to the emergency department earlier this month and was diagnosed with enteritis. She states that she has some persistent abdominal discomfort but tolerated her prep well. She confirms that her output is now clear. She has also been trying to watch her caffeine intake and this is translated to some improved control of her upper GI symptoms. She did undergo upper GI with barium swallow that showed no evidence of reflux but a distal esophageal diverticulum. Procedure and post procedure expectations were reviewed and patient has no further questions. Therefore we will proceed with diagnostic upper and lower endoscopy as previously discussed in greater detail above.
[2023-08-12 10:13] LABS: Bedside Glucose 109 mg/dL (74-106)
[2023-08-12 10:20] VITALS: BP 130/73; BP 146/87; PULSE 83; RESP 16; TEMP 36.5; O2SAT 100
[2023-08-12 10:25] VITALS: BP 129/80; BP 146/87; PULSE 82; RESP 16; O2SAT 100
--- NOTE | 2023-08-12 10:26 | OP.CCLET_ITS ---
[facility] This procedure was performed on Saturday, August 12, 2023. My impressions and recommendations are as follows: Impressions : - No gross lesions in the entire examined duodenum. No specimens collected. - Erythematous mucosa in the antrum. Biopsied. - Congestive gastropathy. Biopsied. - Z-line regular, 36 cm from the incisors. Biopsied. - Medium-sized hiatal hernia. No specimens collected. 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 Biopsied. - Grade II esophageal varices. No specimens collected. Recommendations : - Discharge patient to home (via wheelchair). - Resume previous diet today. - Continue present medications. - Await pathology results. - Telephone my office for pathology results in 1 week. My findings are described in the full procedure note, which is enclosed. If I can be of further assistance, please feel free to contact me at Doctor phone number(s): , Work: . Sincerely, Mahesh Robert MD 08/12/2023 10:25:42 AM This report has been signed electronically.
--- NOTE | 2023-08-12 10:26 | OP.EGD_ITS ---
Patient Name: Rose David Procedure Date: 08/12/2023 8:50 AM Date of : 1965 Age: 57 Procedure: Upper GI endoscopy Indications: Dysphagia, Esophageal reflux Providers: Mahesh Robert MD Referring MD: [facility] Medicines: See the other procedure note for documentation of the administered medications Patient Profile: Refer to note in patient chart for documentation of history and physical. Patient has symptoms of chronic dysphagia. Complications: No immediate complications. Estimated blood loss: Minimal. Procedure: Pre-Anesthesia Assessment: - The heart rate, respiratory rate, oxygen saturations, blood pressure, adequacy of pulmonary ventilation, and response to care were monitored throughout the procedure. After obtaining informed consent, the endoscope was passed under direct vision. Throughout the procedure, the patient's blood pressure, pulse, and oxygen saturations were monitored continuously. The colonoscope was introduced through the mouth, and advanced to the second part of duodenum. The upper GI endoscopy was accomplished without difficulty. The patient tolerated the procedure well. Scope In: 9:10:44 AM Scope Out: 9:36:18 AM Total Procedure Duration Time 0 hours 25 minutes 34 seconds Findings: No gross lesions were noted in the entire examined duodenum. No biopsies or other specimens were collected for this exam. Estimated blood loss: none. Localized mildly erythematous mucosa without bleeding was found in the gastric antrum. Biopsies were taken with a cold forceps for Helicobacter pylori testing. Estimated blood loss was minimal. Localized mildly congested mucosa was found on the greater curvature of the stomach. Biopsies were taken with a cold forceps for histology. Estimated blood loss was minimal. The Z-line was regular and was found 36 cm from the incisors. Biopsies were taken with a cold forceps for histology. Estimated blood loss was minimal. A medium-sized hiatal hernia was present. No biopsies or other specimens were collected for this exam. A medium-sized, mucosal mass with no bleeding and no stigmata of recent bleeding was found in the upper third of the esophagus. The mass was non-obstructing and not circumferential. Biopsies were taken with a cold forceps for histology. Estimated blood loss: 2 mL requiring treatment with electrocautery. Grade II varices were found in the lower third of the esophagus. No biopsies or other specimens were collected for this exam. Impression: - No gross lesions in the entire examined duodenum. No specimens collected. - Erythematous mucosa in the antrum. Biopsied. - Congestive gastropathy. Biopsied. - Z-line regular, 36 cm from the incisors. Biopsied. - Medium-sized hiatal hernia. No specimens collected. 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 Biopsied. - Grade II esophageal varices. No specimens collected. Recommendation: - Discharge patient to home (via wheelchair). - Resume previous diet today. - Continue present medications. - Await pathology results. - Telephone my office for pathology results in 1 week. Procedure Code(s): --- Professional --- 29811, Esophagogastroduodenoscopy, flexible, transoral; with biopsy, single or multiple Diagnosis Code(s): --- Professional --- K31.89, Other diseases of stomach and duodenum K44.9, Diaphragmatic hernia without obstruction or gangrene D49.0, Neoplasm of unspecified behavior of digestive system I85.00, Esophageal varices without bleeding R13.10, Dysphagia, unspecified K21.9, Gastro-esophageal reflux disease without esophagitis CPT copyright 2021 [employer]. All rights reserved. The codes documented in this report are preliminary and upon certified medical coder review may be revised to meet current compliance requirements. Mahesh Robert MD 08/12/2023 10:25:42 AM This report has been signed electronically. Number of Addenda: 0 Note Initiated On: 08/12/2023 8:50 AM
[2023-08-12 10:30] VITALS: BP 136/84; BP 146/87; PULSE 77; RESP 16; O2SAT 100
--- NOTE | 2023-08-12 10:32 | OP.COLON_ITS ---
Patient Name: Rose David Procedure Date: 08/12/2023 9:36 AM Date of : 1965 Age: 57 Procedure: Colonoscopy Indications: Generalized abdominal pain, Chronic diarrhea Providers: Mahesh Robert MD Referring MD: [facility] Medicines: See the other procedure note for documentation of the administered medications Patient Profile: Refer to note in patient chart for documentation of history and physical. Patient has symptoms of chronic dysphagia. Last Colonoscopy: more than 10 years ago. Complications: No immediate complications. Estimated blood loss: Minimal. Procedure: Pre-Anesthesia Assessment: - The heart rate, respiratory rate, oxygen saturations, blood pressure, adequacy of pulmonary ventilation, and response to care were monitored throughout the procedure. After I obtained informed consent, the scope was passed under direct vision. Throughout the procedure, the patient's blood pressure, pulse, and oxygen saturations were monitored continuously. The colonoscope was introduced through the anus and advanced to the cecum, identified by appendiceal orifice and ileocecal valve. The colonoscopy was technically difficult and complex due to significant looping. Successful completion of the procedure was aided by changing the patient to a supine position and straightening and shortening the scope to obtain bowel loop reduction. The patient tolerated the procedure fairly well. The quality of the bowel preparation was adequate to identify polyps greater than 5 mm in size. Scope In: 9:38:20 AM Scope Withdrawal Time 0 hours 15 minutes 24 seconds Scope Out: 10:06:12 AM Total Procedure Duration Time 0 hours 27 minutes 52 seconds Findings: Skin tags were found on perianal exam. Scattered small and large-mouthed diverticula were found in the entire colon. No biopsies or other specimens were collected for this exam. A 3 mm polyp was found in the proximal sigmoid colon. The polyp was sessile. Biopsies were taken with a cold forceps for histology. Estimated blood loss was minimal. Impression: - Perianal skin tags found on perianal exam. - Diverticulosis in the entire examined colon. No specimens collected. - One 3 mm polyp in the proximal sigmoid colon. Biopsied. Recommendation: - Discharge patient to home (via wheelchair). - High fiber diet today. - No aspirin, ibuprofen, naproxen, or other non-steroidal anti-inflammatory drugs for 2 days after biopsy. - Await pathology results. - Repeat colonoscopy date to be determined after pending pathology results are reviewed for surveillance based on pathology results. - Telephone my office for pathology results in 1 week. Procedure Code(s): --- Professional --- 10093, Colonoscopy, flexible; with biopsy, single or multiple Diagnosis Code(s): --- Professional --- D12.5, Benign neoplasm of sigmoid colon K64.4, Residual hemorrhoidal skin tags R10.84, Generalized abdominal pain K52.9, Noninfective gastroenteritis and colitis, unspecified K57.30, Diverticulosis of large intestine without perforation or abscess without bleeding CPT copyright 2021 [employer]. All rights reserved. The codes documented in this report are preliminary and upon cattle producers review may be revised to meet current compliance requirements. Mahesh Robert MD 08/12/2023 10:31:26 AM This report has been signed electronically. Number of Addenda: 0 Note Initiated On: 08/12/2023 9:36 AM
--- NOTE | 2023-08-12 10:32 | OP.CCLET_ITS ---
08/12/2023 [facility] Re : [facility] This procedure was performed on Saturday, August 12, 2023. My impressions and recommendations are as follows: Impressions : - Perianal skin tags found on perianal exam. - Diverticulosis in the entire examined colon. No specimens collected. - One 3 mm polyp in the proximal sigmoid colon. Biopsied. Recommendations : - Discharge patient to home (via wheelchair). - High fiber diet today. - No aspirin, ibuprofen, naproxen, or other non-steroidal anti-inflammatory drugs for 2 days after biopsy. - Await pathology results. - Repeat colonoscopy date to be determined after pending pathology results are reviewed for surveillance based on pathology results. - Telephone my office for pathology results in 1 week. My findings are described in the full procedure note, which is enclosed. If I can be of further assistance, please feel free to contact me at Doctor phone number(s): , Work: . Sincerely, Mahesh Robert MD 08/12/2023 10:31:26 AM This report has been signed electronically.
[2023-08-12 10:40] VITALS: BP 144/84; BP 146/87; PULSE 75; RESP 16; TEMP 36.1
[2023-08-12 10:45] VITALS: BP 146/87
== END 2023-08-12 11:11 | disposition home or self-care (01) ==
LOC: EN 07:46 → AC 07:46
PROVIDERS: Visit Provider Surgery
PROC: 0DJD8ZZ Inspection of Lower Intestinal Tract, Via Natural or Artificial Opening Endoscopic (ICD-10-PCS; CPT 45378; principal; 2023-08-12 08:55)
DX: D12.5 Benign neoplasm of sigmoid colon (principal); I85.00 Esophageal varices without bleeding; F31.9 Bipolar disorder, unspecified; E11.9 Type 2 diabetes mellitus without complications; K52.9 Noninfective gastroenteritis and colitis, unspecified; M79.7 Fibromyalgia; K21.9 Gastro-esophageal reflux disease without esophagitis; Z79.84 Long term (current) use of oral hypoglycemic drugs; Z80.0 Family history of malignant neoplasm of digestive organs; K44.9 Diaphragmatic hernia without obstruction or gangrene; K57.30 Diverticulosis of large intestine without perforation or abscess without bleeding; R14.0 Abdominal distension (gaseous); R10.84 Generalized abdominal pain; R13.10 Dysphagia, unspecified; K64.4 Residual hemorrhoidal skin tags; D49.0 Neoplasm of unspecified behavior of digestive system; K31.89 Other diseases of stomach and duodenum; K29.50 Unspecified chronic gastritis without bleeding
CPT/HCPCS: 45380; 43239; 82962; 88305; 88312; 88313; 88342; J7120; J2405

== ENCOUNTER 2023-08-18 09:19 | Emergency (ER) | payer MEDICAID, SELFPAY ==
[2023-08-18 09:22] VITALS: BP 148/86; PULSE 86; RESP 18; TEMP 36.8; O2SAT 98; BMI 24.3
--- NOTE | 2023-08-18 09:34 | ED.VIS.GI ---
HPI HPI - GI History of Present Illness Chief Complaint: Abd Pain Informant: patient Abdominal Pain/Flank Pain Onset: Days Location: Diffuse Current Severity: Mild Maximum Severity: Mild Nausea/Vomiting/Emesis GI Symptom: Positive for Nausea and Vomiting Onset: Today and Yesterday Severity: Mild Diarrhea/Melena/Hematochezia GI Symptom: Negative for Diarrhea, Melena or Hematochezia Associated Symptoms Associated Symptoms: Negative for Dysuria, Frequency, Hematuria or Urgency Narrative Narrative: 57-year-old female history of bipolar states she had upper and lower endoscopy done by Dr. Mahesh Robert last week she said some abdominal discomfort was having it prior to those test being done. She also had several areas of biopsy including esophageal mass. She has not had his results return yet. She denies any fever. States she is having hard stools. Initially she did the bowel prep said she cleaned herself out. Now she is having hard stools. She has had a weight loss of 20 pounds since she started on trilogy for her diabetes several months ago. Patient had labs and a CAT scan done about 4 weeks ago basically were unremarkable. Prior similar symptoms: Yes Recent Illness/Hospitalization: No PFSH PFSH Medical History Anxiety Arthritis Asthma Bilateral carpal tunnel syndrome Bipolar 1 disorder Degenerative disc disease Depression Diabetes Difficulty swallowing Fibromyalgia Gastric reflux History of cellulitis History of diverticulitis Hx of intestinal obstruction MRSA (methicillin resistant staph aureus) culture positive Psoriasis PTSD (post-traumatic stress disorder) Wears glasses Home Medications trazodone 150 mg tablet 150 mg PO QHS anxiety 07/15/21 [History Last Taken 08/10/23] albuterol sulfate 90 mcg/actuation aerosol inhaler 2 puff inhalation Q6H PRN shortness of breath or wheezing #8.5 grams 07/16/21 [Rx Last Taken 08/08/23] ibuprofen 500 mg PO Q6H PRN PRN Pain 03/06/22 [History Last Taken 08/11/23] hydroxyzine HCl 25 mg tablet 25 mg PO TID anxiety 11/04/22 [History Last Taken 08/12/23 07:30] omeprazole 40 mg capsule,delayed release 40 mg PO BID 11/04/22 [History Last Taken 08/11/23] atorvastatin 40 mg tablet 20 mg PO QHS 11/25/22 [History Last Taken 08/11/23] cetirizine 10 mg tablet 10 mg PO BID 03/06/23 [History Last Taken 08/11/23] albuterol sulfate 2.5 mg/3 mL (0.083 %) solution for nebulization 2.5 mg inhalation Q4H PRN shortness of breath or wheezing 04/08/23 [History Last Taken Unknown] fluticasone fur. 200 mcg-umeclid 62.5 mcg-vilant 25 mcg inhalat.powder (Trelegy Ellipta) 1 inh inhalation Q24H 04/08/23 [History Last Taken 08/12/23 07:30] lanolin alcohols-mineral oil-w.petrolatum-ceresin topical cream (Minerin Creme topical) 1 applic topical DAILY 04/08/23 [History Last Taken 08/10/23] sertraline 50 mg tablet 50 mg PO DAILY 04/08/23 [History Last Taken 08/11/23] acetaminophen 650 mg tablet,extended release (Tylenol Arthritis Pain) 1,300 mg PO Q12H 06/23/23 [History Last Taken 08/09/23] hydroxyzine HCl 25 mg tablet 50 mg PO QHS 06/23/23 [History Last Taken 08/11/23] ondansetron 4 mg disintegrating tablet 4 mg PO Q6H PRN nausea and vomiting #12 tabs 07/24/23 [Rx Last Taken 08/11/23] dulaglutide 3 mg/0.5 mL subcutaneous pen injector (Trulicity) 3 mg subcut MATA 08/06/23 [History Last Taken 08/10/23] ondansetron 4 mg disintegrating tablet 4 mg PO Q6H PRN nausea and vomiting #20 tabs 08/12/23 [Rx Last Taken Unknown] sucralfate 1 gram tablet (Carafate) 1 g PO BID #28 tabs 08/13/23 [Rx Last Taken Unknown] Allergy/AdvReac Type Severity Reaction Status Date / Time Tetracyclines Allergy Intermediate Rash Verified 08/18/23 09:21 aminophylline Allergy Swelling Verified 08/18/23 09:21 amphetamine [From Adderall] Allergy Other Verified 08/18/23 09:21 dextroamphetamine Allergy Other Verified 08/18/23 09:21 [From Adderall] Iodinated Contrast Media [CT] Allergy Swelling Verified 08/18/23 09:21 iodine Allergy Swelling Verified 08/18/23 09:21 povidone-iodine Allergy Swelling Verified 08/18/23 09:21 [From Betadine] shellfish derived Allergy Swelling Verified 08/18/23 09:21 Sulfa (Sulfonamide Allergy Swelling Verified 08/18/23 09:21 Antibiotics) buspirone [From BuSpar] AdvReac Intermediate Other Verified 08/18/23 09:21 allantoin [From Blistex] AdvReac Swelling Verified 08/18/23 09:21 aloe vera [From Blistex] AdvReac Swelling Verified 08/18/23 09:21 camphor [From Blistex] AdvReac Swelling Verified 08/18/23 09:21 chamomile flower AdvReac Swelling Verified 08/18/23 09:21 [From Blistex] dimethicone [From Blistex] AdvReac Swelling Verified 08/18/23 09:21 herbal complex no.57 AdvReac Swelling Verified 08/18/23 09:21 [From Blistex] homosalate [From Blistex] AdvReac Swelling Verified 08/18/23 09:21 menthol [From Blistex] AdvReac Swelling Verified 08/18/23 09:21 meradimate [From Blistex] AdvReac Swelling Verified 08/18/23 09:21 octinoxate [From Blistex] AdvReac Swelling Verified 08/18/23 09:21 octyl salicylate AdvReac Swelling Verified 08/18/23 09:21 [From Blistex] oxybenzone [From Blistex] AdvReac Swelling Verified 08/18/23 09:21 padimate O [From Blistex] AdvReac Swelling Verified 08/18/23 09:21 petrolatum,hydrophilic AdvReac Swelling Verified 08/18/23 09:21 [From Blistex] phenol [From Blistex] AdvReac Swelling Verified 08/18/23 09:21 tetracycline AdvReac Rash Verified 08/18/23 09:21 Family History Father Diabetes Heart disease Mother Diabetes Heart disease Sister Heart disease Thyroid disorder Surgical History History of carpal tunnel surgery History of intestinal surgery History of lumpectomy of right breast History of right breast biopsy (~11/2021) Hx of appendectomy Hx of bilateral oophorectomy Hx of breast surgery Hx of hysterectomy Hx of repair of right rotator cuff Hx of surgical procedure Hx of tooth extraction Social History household members: spouse Smoking Status: Never smoker alcohol intake: never substance use type: does not use ROS ROS ED ROS Narrative . Constipation. Weight loss. Review of Systems ROS Unobtainable: Denies due to encephalopathy Constitutional Constitutional ED: Denies fever(s) ENT ENT ED: Denies ear pain Cardiovascular Cardiovascular: Denies chest pain Respiratory/Chest Respiratory/Chest: Denies cough or dyspnea Gastrointestinal Gastrointestinal: Reports abdominal pain, constipation, nausea and vomiting; Denies diarrhea or melena Genitourinary Genitourinary ED: Denies dysuria or hematuria Musculoskeletal Musculoskeletal: Denies arthralgias or back pain Integumentary Denies abscess or Abrasions Neurologic Neurologic: Denies headache(s) Psychiatric Psychiatric: Denies anxiety or depression Endocrine Endocrinology: Denies polydipsia Hematologic/Lymphatic Hematologic/Lymphatic: Denies easy bleeding Allergic/Immunologic Allergic/Immunologic ED: Denies mouth swelling, tongue swelling or urticaria EXAM Physical Exam Narrative Exam Narrative: Well-appearing 57-year-old female. Vital signs stable afebrile. H EENT exam unremarkable. Neck nontender. Lungs clear to auscultation. Heart regular rhythm no murmur. Abdomen is soft nondistended normal bowel sounds no peritoneal signs. No really reproducible tenderness. Negative right upper and right lower quadrants. No hernia or mass. No obstruction. Moving all 4 extremities. Back nontender. Neurologically she is awake and alert with no focal motor deficits. Const Vital Signs: 08/18/23 09:22 08/18/23 11:21 Temperature 98.2 F Temperature Source Oral Pulse Rate 86 79 Respiratory Rate 18 16 Blood Pressure 148/86 H 155/89 H Blood Pressure Mean 106 111 Pulse Ox 98 94 Oxygen Delivery Method Room Air Room Air Positive well nourished and well developed; Negative for obese, cachectic, contractures or unkempt General Appearance ED: well developed and NAD; Negative for unkempt, cachectic, contractures or pallor Nutritional Appearance: Negative for cachectic or obese HEENT Reports moist mucous membranes; Denies dry mucous membranes normocephalic and atraumatic; Negative for trauma or tenderness Mouth ED: No dry mucous membranes Mouth: No dry mucous membranes Eyes PERRL and EOMs intact bilaterally General Eye ED: Negative for pale conjunctiva, scleral icterus or other Neck no lymphadenopathy, supple and no JVD General: Negative for tenderness Carotids: Negative for other Lymph Lymphatic: Negative for other Resp normal respiratory effort and clear to auscultation bilaterally Effort and Inspection: Negative for respiratory distress Auscultation: Negative for rales, rhonchi or wheezes Cardio regular rate, regular rhythm, S1 normal heart sound, S2 normal heart sound and no murmurs Rate: Negative for bradycardia or tachycardic Rhythm: Negative for abnormal rhythm GI non-tender, non-distended and no masses Inspection: Negative for abdominal distention Auscultation: normoactive bowel sounds Palpation: soft; Negative for tender or mass Back/Spine no CVA tenderness General Back: Negative for CVA tenderness Cervical Spine: Negative for cervical spine tenderness Thoracic Spine / Upper Back: Negative for thoracic spinal tenderness Lumbar Spine / Lower Back: Negative for lumbar spinal tenderness Coccyx: Negative for other Extremity full ROM General Extremety ED: Negative for edema or tenderness General Extremity: Negative for edema Neuro CN's II-XII intact bilaterally and moves all extremities Sensorium / Orientation: alert, oriented to person, oriented to place and oriented to time; Negative for orientation impaired, confused, lethargic or stuporous Motor Exam: strength 5/5 throughout Psych mental status grossly normal and thought process normal Appearance: Negative for unkempt Attitude: No agitated Mood & Affect: Negative for depressed, anxious or tearful Skin no wounds General Skin Exam: Negative for jaundice or pallor Lesions: no lesions Rashes: no rashes Trauma: Negative for abrasion Nails: Negative for discolored MDM MDM MDM Narrative Medical decision making narrative: 57-year-old with abdominal pain. Very benign exam. Recent CAT scan showing diverticulosis but no acute abnormality. Recent labs are unremarkable. Repeat labs. Illness she needs imaging at this time. Repeat exam patient is doing well at 11:50 AM. Abdomen is benign. We went over her test results. She did have a recent CAT scan on 327 that was unremarkable. She will be discharged home with outpatient follow-up. History & Record Review Discussion w/independent historian: Patient Additional record(s) reviewed:: Prior inpatient record, Prior outpatient record, Prior ED visit and Prior labs Lab Data Attestation: I reviewed the patient's lab results. Lab results narrative: CBC normal. White count of 4. H&H 12.9 and 38. Platelets 239. Electrolytes show potassium 3.3 gap 6. Normal BUN is 7 creatinine 0.8. Glucose 87. Liver enzymes normal. Alk phos 159. Lipase 39. Labs: Laboratory Results - last 24 hr 08/18/23 09:44 WBC 4.4 RBC 4.45 Hgb 12.9 Hct 38.5 MCV 86.5 MCH 29.0 MCHC 33.5 RDW Std Deviation 40.0 RDW Coeff of Elsi 12.8 Plt Count 239 MPV 9.1 Immature Gran % (Auto) 0.500 Neut % (Auto) 52.9 Lymph % (Auto) 31.7 Boyle % (Auto) 9.4 Eos % (Auto) 5.0 Baso % (Auto) 0.5 Absolute Neuts (auto) 2.3 Absolute Lymphs (auto) 1.38 Nucleated RBC % 0 Sodium 141 Potassium 3.3 L Chloride 110 H Carbon Dioxide 25.0 Anion Gap 6 BUN 7 Creatinine 0.83 Estim Creat Clear Calc 62.51 Est GFR (MDRD) Af Amer 90 Est GFR (MDRD) Non-Af 75 BUN/Creatinine Ratio 8.4 L Glucose 87 Calcium 9.2 Total Bilirubin 0.50 AST 20 ALT 15 Alkaline Phosphatase 159 H Total Protein 6.7 Albumin 3.7 Globulin 3.0 Albumin/Globulin Ratio 1.2 Lipase 39 Discharge Plan Triage Chief Complaint: Abd Pain ED Provider: Marcial Shaw Dx/Rx/DC Orders Prescriptions: No Action hydroxyzine HCl 25 mg tablet 25 mg PO TID Patient Comments: TAKE ONE TABLET BY MOUTH 2-3 TIMES DAILY NEEDED FOR ANXIETY omeprazole 40 mg capsule,delayed release(DR/EC) 40 mg PO BID Patient Comments: TAKE 1 CAPSULE BY MOUTH TWICE DAILY cetirizine 10 mg tablet 10 mg PO BID Patient Comments: TAKE ONE TABLET BY MOUTH EVERY DAY trazodone 150 mg tablet 150 mg PO QHS Patient Comments: take 1 and 1/2 tablet DAILY AT BEDTIME albuterol sulfate 90 mcg/actuation HFA aerosol inhaler 2 puff inhalation Q6H PRN (Reason: shortness of breath or wheezing) Qty: 8.5 0RF ibuprofen 500 mg PO Q6H PRN PRN (Reason: Pain) atorvastatin 40 mg tablet 20 mg PO QHS Patient Comments: TAKE ONE TABLET BY MOUTH AT BEDTIME albuterol sulfate 2.5 mg /3 mL (0.083 %) solution for nebulization 2.5 mg inhalation Q4H PRN (Reason: shortness of breath or wheezing) Patient Comments: inhale ONE ampule EVERY 4 TO 6 HOURS NEEDED Mattlegy Ellipta 200-62.5-25 mcg blister with device 1 inh INHALATION Q24H Patient Comments: INHALE 1 PUFF BY MOUTH EVERY DAY sertraline 50 mg tablet 50 mg PO DAILY Patient Comments: TAKE ONE TABLET BY MOUTH EVERY DAY Minerin Creme Cream 1 applic TOPICAL DAILY Patient Comments: apply to lower legs liberally twice daily hydroxyzine HCl 25 mg tablet 50 mg PO QHS acetaminophen [Tylenol Arthritis Pain] 650 mg tablet extended release 1,300 mg PO Q12H Trulicity 3 mg/0.5 mL pen injector 3 mg subcut MATA ondansetron 4 mg tablet,disintegrating 4 mg PO Q6H PRN (Reason: nausea and vomiting) Qty: 20 0RF ondansetron 4 mg tablet,disintegrating 4 mg PO Q6H PRN (Reason: nausea and vomiting) Qty: 12 0RF sucralfate [Carafate] 1 gram tablet 1 g PO BID Qty: 28 0RF Rx Instructions: Take one tablet by mouth twice daily for two weeks Primary Care Provider: [facility] Shahida Lopez Referrals: [facility] Shahida Lopez [Primary Care Provider] -
[2023-08-18] MEDS: Ondansetron 4 MG/2 ML Vial IV (09:58)
[2023-08-18 10:08] LABS: Absolute Lymphocyte Count 1.38 X10^3/uL (0.83-4.51); Absolute Neutrophil Count 2.3 X10^3/uL (2.0-7.7); Basophil# 0.02 X10^3/uL; Basophil% 0.5 % (0-1); Eosinophil# 0.22 X10^3/uL; Hematocrit 38.5 % (37-47); Hemoglobin 12.9 g/dL (12.0-15.0); Lymphocyte # 1.38 X10^3/ul (0.83-4.51); Lymphocyte % 31.7 % (19-41); Mean Corp Hgb Conc 33.5 g/dL (32-36); Mean Corpuscular Volume 86.5 fL (81-99); Mean Platelet Vol. 9.1 fl (6.2-12.0); Monocyte# 0.41 X10^3/uL; Monocyte% 9.4 % (0-10); NRBC Flagged by Analyzer 0 % (0-5); Neutrophil # 2.31 X10^3/uL (2.7-7.7); Neutrophil % 52.9 % (47-70); Platelet Count 239 K/mm3 (150-450); RBC Distribution Width CV 12.8 % (11.6-14.6); Red Blood Count 4.45 M/mm3 (4.2-5.4); White Blood Count 4.4 K/mm3 (4.4-11.0)
[2023-08-18 10:17] LABS: ALB/GLOB Ratio 1.2 RATIO (0.9-2.4); AST(SGOT) 20 U/L (15-37); Alanine Aminotransfer ALT/SGPT 15 U/L (13-56); Albumin, Serum 3.7 g/dL (3.2-5.0); Alkaline Phosphatase 159 U/L (45-117); Anion Gap 6 (5-15); BUN 7 mg/dL (7-18); BUN/Creat Ratio 8.4 RATIO (10-20); Calcium,Total 9.2 mg/dL (8.5-10.1); Chloride 110 mmol/L (98-107); Creatinine, Serum 0.83 mg/dL (0.55-1.02); EST Glomerular Filtration Rate 75 mL/min (>60); Est Glom Filt Rate - Afr Amer 90 mL/min (>60); Estimated Creatinine Clearance 62.51 ml/min; Glucose 87 mg/dL (74-106); Lipase 39 U/L (13-75); Potassium 3.3 mmol/L (3.5-5.1); Protein, Total 6.7 g/dL (6.4-8.2); Sodium Level 141 mmol/L (136-145)
[2023-08-18] MEDS: Ketorolac 15 MG/ML Vial IV (10:32)
[2023-08-18 11:21] VITALS: BP 155/89; PULSE 79; RESP 16; O2SAT 94
[2023-08-18 11:58] VITALS: BP 156/82; PULSE 82; RESP 16; TEMP 36.8; O2SAT 98
== END 2023-08-18 12:06 | disposition home or self-care (01) ==
PROVIDERS: Emergency Provider Emergency Medicine; Visit Provider Emergency Medicine
DX: R11.2 Nausea with vomiting, unspecified (principal); E11.9 Type 2 diabetes mellitus without complications; K57.90 Diverticulosis of intestine, part unspecified, without perforation or abscess without bleeding; Z79.85 Long-term (current) use of injectable non-insulin antidiabetic drugs; Z79.899 Other long term (current) drug therapy
CPT/HCPCS: 80053; 83690; 85025; 96374; 96375; 99283; J2405

== ENCOUNTER 2023-10-01 18:16 | Emergency (ER) | payer MEDICAID, SELFPAY ==
[2023-10-01 18:18] VITALS: BP 110/59; PULSE 94; RESP 18; TEMP 36.2; O2SAT 97; BMI 25.0
--- NOTE | 2023-10-01 19:15 | EX.ED.DYSGE1 ---
HPI History of Present Illness Chief Complaint: Cellulitis Detail of Chief Complaint: Lump base of her skull on the left. Informant: patient Onset/Context/Timing Onset: Weeks Context: Gradual Onset Timing: Continuous Narrative Narrative: The 7-year-old diabetic female with bipolar as a lump on the left base of her skull and neck appears to be an abscess. It has been there 1/2 weeks. She been on Augmentin without any relief. History of MRSA. Prior similar symptoms: Yes Recent Illness/Hospitalization: No PFSH PFSH Medical History Psoriasis Wears glasses Arthritis Difficulty swallowing Gastric reflux History of cellulitis Bilateral carpal tunnel syndrome Anxiety Degenerative disc disease Fibromyalgia MRSA (methicillin resistant staph aureus) culture positive Hx of intestinal obstruction History of diverticulitis Bipolar 1 disorder Depression Diabetes Asthma PTSD (post-traumatic stress disorder) Home Medications ?Medication ?Instructions ?Recorded ?Last Taken ?Type trazodone 150 mg tablet 150 mg PO QHS anxiety 07/15/21 08/10/23 History albuterol sulfate 90 mcg/actuation 2 puff inhalation Q6H PRN 07/16/21 08/08/23 Rx aerosol inhaler shortness of breath or wheezing #8.5 grams ibuprofen 500 mg PO Q6H PRN PRN Pain 03/06/22 08/11/23 History hydroxyzine HCl 25 mg tablet 25 mg PO TID anxiety 11/04/22 08/12/23 07:30 History atorvastatin 40 mg tablet 20 mg PO QHS 11/25/22 08/11/23 History cetirizine 10 mg tablet 10 mg PO BID 03/06/23 08/11/23 History albuterol sulfate 2.5 mg/3 mL 2.5 mg inhalation Q4H PRN 04/08/23 Unknown History (0.083 %) solution for nebulization shortness of breath or wheezing fluticasone fur. 200 mcg-umeclid 1 inh inhalation Q24H 04/08/23 08/12/23 07:30 History 62.5 mcg-vilant 25 mcg inhalat.powder (Trelegy Ellipta) lanolin alcohols-mineral 1 applic topical DAILY 04/08/23 08/10/23 History oil-w.petrolatum-ceresin topical cream (Minerin Creme topical) sertraline 50 mg tablet 50 mg PO DAILY 04/08/23 08/11/23 History acetaminophen 650 mg 1,300 mg PO Q12H 06/23/23 08/09/23 History tablet,extended release (Tylenol Arthritis Pain) hydroxyzine HCl 25 mg tablet 50 mg PO QHS 06/23/23 08/11/23 History ondansetron 4 mg disintegrating 4 mg PO Q6H PRN nausea and 07/24/23 08/11/23 Rx tablet vomiting #12 tabs dulaglutide 3 mg/0.5 mL 3 mg subcut MATA 08/06/23 08/10/23 History subcutaneous pen injector (Trulicity) ondansetron 4 mg disintegrating 4 mg PO Q6H PRN nausea and 08/12/23 Unknown Rx tablet vomiting #20 tabs sucralfate 1 gram tablet (Carafate) 1 g PO BID #28 tabs 08/13/23 Unknown Rx ondansetron 4 mg disintegrating 4 mg PO Q4H #7 tabs 08/18/23 Unknown Rx tablet pantoprazole 40 mg tablet,delayed 40 mg PO DAILY #30 tabs 08/19/23 Unknown Rx release amoxicillin 875 mg-potassium 1 tab PO BID 10/01/23 Unknown History clavulanate 125 mg tablet clindamycin HCl 300 mg capsule 300 mg PO Q6H #28 CAPSULES 10/01/23 Unknown Rx (Cleocin HCl) dapagliflozin propanediol 10 mg 10 mg PO DAILY 10/01/23 Unknown History tablet (Farxiga) fluticasone propionate 50 2 spray intranasal DAILY 10/01/23 Unknown History mcg/actuation nasal spray,suspension ketoconazole 2 % shampoo topical 10/01/23 Unknown History lisinopril 10 mg tablet 10 mg PO DAILY 10/01/23 Unknown History omeprazole 40 mg capsule,delayed 40 mg PO BID 10/01/23 Unknown History release oxycodone-acetaminophen 5 mg-325 1 tab PO Q6H PRN 10/01/23 Unknown History mg tablet oxycodone-acetaminophen 5 mg-325 1 tab PO Q8H PRN pain 4 days #10 10/01/23 Unknown Rx mg tablet (Percocet) tabs triamcinolone acetonide 0.1 % applic topical BID 10/01/23 Unknown History topical cream Allergy/AdvReac Type Severity Reaction Status Date / Time Tetracyclines Allergy Intermediate Rash Verified 08/18/23 09:21 aminophylline Allergy Swelling Verified 08/18/23 09:21 amphetamine (From Adderall) Allergy Other Verified 08/18/23 09:21 dextroamphetamine (From Allergy Other Verified 08/18/23 09:21 Adderall) dulaglutide (From Trulicity) Allergy Vomiting Verified 10/01/23 18:18 Iodinated Contrast Media (CT) Allergy Swelling Verified 08/18/23 09:21 iodine Allergy Swelling Verified 08/18/23 09:21 povidone-iodine (From Allergy Swelling Verified 08/18/23 09:21 Betadine) shellfish derived Allergy Swelling Verified 08/18/23 09:21 Sulfa (Sulfonamide Allergy Swelling Verified 08/18/23 09:21 Antibiotics) buspirone (From BuSpar) AdvReac Intermediate Other Verified 08/18/23 09:21 allantoin (From Blistex) AdvReac Swelling Verified 08/18/23 09:21 aloe vera (From Blistex) AdvReac Swelling Verified 08/18/23 09:21 camphor (From Blistex) AdvReac Swelling Verified 08/18/23 09:21 chamomile flower (From AdvReac Swelling Verified 08/18/23 09:21 Blistex) dimethicone (From Blistex) AdvReac Swelling Verified 08/18/23 09:21 herbal complex no.57 (From AdvReac Swelling Verified 08/18/23 09:21 Blistex) homosalate (From Blistex) AdvReac Swelling Verified 08/18/23 09:21 menthol (From Blistex) AdvReac Swelling Verified 08/18/23 09:21 meradimate (From Blistex) AdvReac Swelling Verified 08/18/23 09:21 octinoxate (From Blistex) AdvReac Swelling Verified 08/18/23 09:21 octyl salicylate (From AdvReac Swelling Verified 08/18/23 09:21 Blistex) oxybenzone (From Blistex) AdvReac Swelling Verified 08/18/23 09:21 padimate O (From Blistex) AdvReac Swelling Verified 08/18/23 09:21 petrolatum,hydrophilic (From AdvReac Swelling Verified 08/18/23 09:21 Blistex) phenol (From Blistex) AdvReac Swelling Verified 08/18/23 09:21 tetracycline AdvReac Rash Verified 08/18/23 09:21 Family History Father Diabetes Heart disease Mother Diabetes Heart disease Sister Heart disease Thyroid disorder Surgical History History of carpal tunnel surgery Hx of surgical procedure Hx of tooth extraction Hx of breast surgery History of right breast biopsy (~11/2021) History of intestinal surgery History of lumpectomy of right breast Hx of appendectomy Hx of repair of right rotator cuff Hx of bilateral oophorectomy Hx of hysterectomy Social History household members: spouse Smoking Status: Never smoker alcohol intake: never substance use type: does not use ROS ROS ED ROS Narrative Denies recent illness. Review of Systems ROS Unobtainable: Denies due to encephalopathy Constitutional Constitutional ED: Denies anorexia Eyes Eyes: Denies blurry vision ENT ENT ED: Denies dental pain Cardiovascular Cardiovascular: Reports nausea; Denies abdominal pain Respiratory/Chest Respiratory/Chest: Denies chest congestion Gastrointestinal Gastrointestinal: Denies change in bowel habits Musculoskeletal Musculoskeletal: Denies deformity Integumentary Denies bleeding lesions Neurologic Neurologic: Denies abnormal speech Endocrine Endocrinology: Denies palpitations Hematologic/Lymphatic Hematologic/Lymphatic: Denies lymphadenopathy Allergic/Immunologic Allergic/Immunologic ED: Denies lip swelling or mouth swelling EXAM Physical Exam Narrative Exam Narrative: [id number] female no acute distress sitting upright in bed. Vital signs stable afebrile. HEENT exam unremarkable. Neck base of her skull on the left she is a palpable tender areas consistent with an abscess. About 1 inch in diameter. It is circular. It is fluctuant. Neck nontender. No lymphadenopathy otherwise. Lungs clear. Heart regular rhythm. Abdomen soft nontender. Moving all 4 extremities. Const Vital Signs: 10/01/23 18:18 Temperature 97.2 F L Temperature Source Temporal Pulse Rate 94 Respiratory Rate 18 Blood Pressure 110/59 L Blood Pressure Mean 76 Pulse Ox 97 Oxygen Delivery Method Room Air Positive well nourished, well developed, alert, oriented x3, no apparent distress, average body habitus, no limitations and healthy appearing; Negative for obese, cachectic, contractures or unkempt General Appearance ED: active, cooperative, comfortable and well developed; Negative for unkempt, cachectic or contractures Nutritional Appearance: Negative for cachectic or obese HEENT Reports normocephalic and head/scalp atraumatic Eyes PERRL General Eye ED: Yes normal appearance of both eyes; Negative for exophthalmos, proptosis or pale conjunctiva Visual Acuity: acuity normal Eyelid: eyelids normal Neck full ROM, No nuchal rigidity, no lymphadenopathy, supple, no meningeal signs, no JVD, No thyroid normal and No nodes Chest Wall inspection of chest normal and palpation of chest normal Resp normal respiratory effort, normal air movement, no retractions, no use of accessory muscles and clear to auscultation bilaterally Cardio regular rate, regular rhythm, S1 normal heart sound, S2 normal heart sound, no murmurs, no rub, no gallops, no clicks and no JVD GI normal to inspection, nondistended, normoactive bowel sounds, soft to palpation, non-tender, non-distended, no masses and no bruits no CVA tenderness Back/Spine no CVA tenderness, normal ROM, normal to inspection and no thoracic nor lumbar tenderness Extremity normal to inspection, full ROM, no joint enlargement, no clubbing, cyanosis or edema, no calf tenderness and no pedal edema Neuro oriented x3, CN's II-XII intact bilaterally, moves all extremities and no focal motor deficits Psych mental status grossly normal, thought process normal, cooperative, affect normal, speech normal and activity/motor behavior normal Appearance: Negative for unkempt Skin no rashes or lesions noted, no wounds, skin turgor normal, no jaundice, no petechiae and no mottling General Skin Exam: no breakdown Lesions: no lesions Rashes: no rashes Trauma: no lacerations or abrasions MDM MDM MDM Narrative Medical decision making narrative: 57-year-old diabetic female with an abscess base of her left skull top of her neck. 1 inch diameter. Will be I&D. She will be started on clindamycin because of MRSA history. Stop the current Augmentin she is on. I drained the cyst or abscess in the back of her left side of her neck. Very minimal purulent material. Cloudy fluid. No bleeding. Packed with about 2 inches of quarter inch iodinated gauze. Instructed on wound care. Pull packing out 3 to 4 days. Follow-up. She will be started on clindamycin first dose given here. 4 times a day for a week. Also limited Percocet 10 no refill for pain. History & Record Review Discussion w/independent historian: Patient Procedures Other Procedures Procedure(s): Abscess or cyst on the back of the left side of her upper neck. Cleaned with Shur-Clens. Local anesthetized lidocaine. I made about a 1 inch vertical incision. Broke up loculations. Cloudy discharge. Minimal if any claribel pus. Minimal to no bleeding. Packed with quarter inch gauze. Instructed on wound care. Patient tolerated well. Discharge Plan Triage Chief Complaint: Cellulitis ED Provider: Marcial Shaw Dx/Rx/DC Orders Clinical Impression: Abscess, History of MRSA infection, History of diabetes mellitus Instructions: ED Abscess Incision And Drainage Prescriptions: New clindamycin HCl [Cleocin HCl] 300 mg capsule 300 mg PO Q6H Qty: 28 0RF oxycodone-acetaminophen [Percocet] 5-325 mg tablet 1 tab PO Q8H PRN (Reason: pain) 4 Days Qty: 10 0RF No Action hydroxyzine HCl 25 mg tablet 25 mg PO TID Patient Comments: TAKE ONE TABLET BY MOUTH 2-3 TIMES DAILY NEEDED FOR ANXIETY cetirizine 10 mg tablet 10 mg PO BID Patient Comments: TAKE ONE TABLET BY MOUTH EVERY DAY trazodone 150 mg tablet 150 mg PO QHS Patient Comments: take 1 and 1/2 tablet DAILY AT BEDTIME albuterol sulfate 90 mcg/actuation HFA aerosol inhaler 2 puff inhalation Q6H PRN (Reason: shortness of breath or wheezing) Qty: 8.5 0RF ibuprofen 500 mg PO Q6H PRN PRN (Reason: Pain) atorvastatin 40 mg tablet 20 mg PO QHS Patient Comments: TAKE ONE TABLET BY MOUTH AT BEDTIME albuterol sulfate 2.5 mg /3 mL (0.083 %) solution for nebulization 2.5 mg inhalation Q4H PRN (Reason: shortness of breath or wheezing) Patient Comments: inhale ONE ampule EVERY 4 TO 6 HOURS NEEDED Trelegy Ellipta 200-62.5-25 mcg blister with device 1 inh INHALATION Q24H Patient Comments: INHALE 1 PUFF BY MOUTH EVERY DAY sertraline 50 mg tablet 50 mg PO DAILY Patient Comments: TAKE ONE TABLET BY MOUTH EVERY DAY Minerin Creme Cream 1 applic TOPICAL DAILY Patient Comments: apply to lower legs liberally twice daily hydroxyzine HCl 25 mg tablet 50 mg PO QHS acetaminophen [Tylenol Arthritis Pain] 650 mg tablet extended release 1,300 mg PO Q12H Trulicity 3 mg/0.5 mL pen injector 3 mg subcut MATA ondansetron 4 mg tablet,disintegrating 4 mg PO Q6H PRN (Reason: nausea and vomiting) Qty: 20 0RF ondansetron 4 mg tablet,disintegrating 4 mg PO Q6H PRN (Reason: nausea and vomiting) Qty: 12 0RF ondansetron 4 mg tablet,disintegrating 4 mg PO Q4H Qty: 7 0RF Rx Instructions: 1st dose 1-2 hr before radiation ketoconazole 2 % shampoo topical omeprazole 40 mg capsule,delayed release(DR/EC) 40 mg PO BID oxycodone-acetaminophen 5-325 mg tablet 1 tab PO Q6H PRN lisinopril 10 mg tablet 10 mg PO DAILY fluticasone propionate 50 mcg/actuation spray,suspension 2 spray INTRANASAL DAILY amoxicillin-pot clavulanate 875-125 mg tablet 1 tab PO BID dapagliflozin propanediol [Farxiga] 10 mg tablet 10 mg PO DAILY triamcinolone acetonide 0.1 % cream topical BID sucralfate [Carafate] 1 gram tablet 1 g PO BID Qty: 28 0RF Rx Instructions: Take one tablet by mouth twice daily for two weeks pantoprazole 40 mg tablet,delayed release (DR/EC) 40 mg PO DAILY Qty: 30 0RF Rx Instructions: Take one tablet by mouth daily each morning Primary Care Provider: [facility] Shahida Lopez Referrals: [facility] Shahida Lopez [Primary Care Provider] - 3-5 Days Activity Restrictions/Additional Instructions: I drained the abscess in the back your neck. Leave the packing material in for 3 or 4 days and you can pull it out. Warm compresses and warm shower to the area. If the packing falls out just leave it out. Motrin for pain. Percocet for more severe pain. The antibiotic clindamycin 1 pill 4 times a day for 1 week. Stop your Augmentin. Follow-up with your primary care physician to ensure it is improving. Return if worse. Print Language: Jamaican Disposition Disposition: Home, Self Care
[2023-10-01] MEDS: Lidocaine 1% (20 ml mdv) 20 ML Vial 10 ML INFILT (19:50)
[2023-10-01] MEDS: Clindamycin HCl 150 MG Capsule 300 MG PO (20:28)
[2023-10-01 20:30] VITALS: BP 129/73; PULSE 85; RESP 16; TEMP 36.2; O2SAT 98
== END 2023-10-01 20:39 | disposition home or self-care (01) ==
PROVIDERS: Emergency Provider Emergency Medicine; Visit Provider Emergency Medicine
DX: L02.818 Cutaneous abscess of other sites (principal); F31.9 Bipolar disorder, unspecified; E11.9 Type 2 diabetes mellitus without complications; R22.1 Localized swelling, mass and lump, neck; Z79.899 Other long term (current) drug therapy; Z86.14 Personal history of Methicillin resistant Staphylococcus aureus infection
CPT/HCPCS: 10060; 99283

== ENCOUNTER 2023-10-28 14:19 | Emergency (ER) | payer MEDICAID, SELFPAY ==
[2023-10-28 14:20] VITALS: BP 105/88; PULSE 88; RESP 18; TEMP 36.2; O2SAT 98; BMI 25.9
[2023-10-28 14:22] VITALS: TEMP 36.1; BMI 25.8
--- NOTE | 2023-10-28 14:41 | EX.ED.DYSGE1 ---
HPI History of Present Illness Chief Complaint: Wound Informant: patient Narrative Narrative: 2 days gradual onset painful swollen area right facial cheek, now pain and redness is spreading down into her neck. No trouble breathing or swallowing. No systemic symptoms otherwise like fevers or chills, denies any intraoral symptoms or gum/dental pain. This is similar to when she had an abscess develop in her right axilla. [facility] Medical History Psoriasis Wears glasses Arthritis Difficulty swallowing Gastric reflux History of cellulitis Bilateral carpal tunnel syndrome Anxiety Degenerative disc disease Fibromyalgia MRSA (methicillin resistant staph aureus) culture positive Hx of intestinal obstruction History of diverticulitis Bipolar 1 disorder Depression Diabetes Asthma PTSD (post-traumatic stress disorder) Home Medications ?Medication ?Instructions ?Recorded ?Last Taken ?Type trazodone 150 mg tablet 150 mg PO QHS anxiety 07/15/21 08/10/23 History albuterol sulfate 90 mcg/actuation 2 puff inhalation Q6H PRN 07/16/21 08/08/23 Rx aerosol inhaler shortness of breath or wheezing #8.5 grams ibuprofen 500 mg PO Q6H PRN PRN Pain 03/06/22 08/11/23 History hydroxyzine HCl 25 mg tablet 25 mg PO TID anxiety 11/04/22 08/12/23 07:30 History atorvastatin 40 mg tablet 20 mg PO QHS 11/25/22 08/11/23 History cetirizine 10 mg tablet 10 mg PO BID 03/06/23 08/11/23 History albuterol sulfate 2.5 mg/3 mL 2.5 mg inhalation Q4H PRN 04/08/23 Unknown History (0.083 %) solution for nebulization shortness of breath or wheezing fluticasone fur. 200 mcg-umeclid 1 inh inhalation Q24H 04/08/23 08/12/23 07:30 History 62.5 mcg-vilant 25 mcg inhalat.powder (Trelegy Ellipta) lanolin alcohols-mineral 1 applic topical DAILY 04/08/23 08/10/23 History oil-w.petrolatum-ceresin topical cream (Minerin Creme topical) sertraline 50 mg tablet 50 mg PO DAILY 04/08/23 08/11/23 History acetaminophen 650 mg 1,300 mg PO Q12H 06/23/23 08/09/23 History tablet,extended release (Tylenol Arthritis Pain) hydroxyzine HCl 25 mg tablet 50 mg PO QHS 06/23/23 08/11/23 History ondansetron 4 mg disintegrating 4 mg PO Q6H PRN nausea and 07/24/23 08/11/23 Rx tablet vomiting #12 tabs dulaglutide 3 mg/0.5 mL 3 mg subcut MATA 08/06/23 08/10/23 History subcutaneous pen injector (Trulicity) sucralfate 1 gram tablet (Carafate) 1 g PO BID #28 tabs 08/13/23 Unknown Rx ondansetron 4 mg disintegrating 4 mg PO Q4H #7 tabs 08/18/23 Unknown Rx tablet pantoprazole 40 mg tablet,delayed 40 mg PO DAILY #30 tabs 08/19/23 Unknown Rx release amoxicillin 875 mg-potassium 1 tab PO BID 10/01/23 Unknown History clavulanate 125 mg tablet clindamycin HCl 300 mg capsule 300 mg PO Q6H #28 CAPSULES 10/01/23 Unknown Rx (Cleocin HCl) dapagliflozin propanediol 10 mg 10 mg PO DAILY 10/01/23 Unknown History tablet (Farxiga) fluticasone propionate 50 2 spray intranasal DAILY 10/01/23 Unknown History mcg/actuation nasal spray,suspension ketoconazole 2 % shampoo 1 applic topical 10/01/23 Unknown History lisinopril 10 mg tablet 10 mg PO DAILY 10/01/23 Unknown History omeprazole 40 mg capsule,delayed 40 mg PO BID 10/01/23 Unknown History release triamcinolone acetonide 0.1 % applic topical BID 10/01/23 Unknown History topical cream ondansetron 4 mg disintegrating 4 mg PO Q6H PRN nausea and 10/06/23 Unknown Rx tablet vomiting #20 tabs atorvastatin 20 mg tablet 20 mg PO QHS 10/28/23 Unknown History clindamycin HCl 300 mg capsule 300 mg PO Q6H #40 CAPSULES 10/28/23 Unknown Rx (Cleocin HCl) hydrocodone-acetaminophen 5-325mg 1 tab PO Q6H PRN PRN Pain 3 days 10/28/23 Unknown Rx 5mg-325mg #10 TABLETS mupirocin 2 % topical ointment 1 applic topical TID PRN Acne #1 10/28/23 Unknown Rx tube Allergy/AdvReac Type Severity Reaction Status Date / Time Tetracyclines Allergy Intermediate Rash Verified 08/18/23 09:21 aminophylline Allergy Swelling Verified 08/18/23 09:21 amphetamine (From Adderall) Allergy Other Verified 08/18/23 09:21 dextroamphetamine (From Allergy Other Verified 08/18/23 09:21 Adderall) dulaglutide (From Trulicity) Allergy Vomiting Verified 10/01/23 18:18 Iodinated Contrast Media (CT) Allergy Swelling Verified 08/18/23 09:21 iodine Allergy Swelling Verified 08/18/23 09:21 povidone-iodine (From Allergy Swelling Verified 08/18/23 09:21 Betadine) shellfish derived Allergy Swelling Verified 08/18/23 09:21 Sulfa (Sulfonamide Allergy Swelling Verified 08/18/23 09:21 Antibiotics) buspirone (From BuSpar) AdvReac Intermediate Other Verified 08/18/23 09:21 allantoin (From Blistex) AdvReac Swelling Verified 08/18/23 09:21 aloe vera (From Blistex) AdvReac Swelling Verified 08/18/23 09:21 camphor (From Blistex) AdvReac Swelling Verified 08/18/23 09:21 chamomile flower (From AdvReac Swelling Verified 08/18/23 09:21 Blistex) dimethicone (From Blistex) AdvReac Swelling Verified 08/18/23 09:21 herbal complex no.57 (From AdvReac Swelling Verified 08/18/23 09:21 Blistex) homosalate (From Blistex) AdvReac Swelling Verified 08/18/23 09:21 menthol (From Blistex) AdvReac Swelling Verified 08/18/23 09:21 meradimate (From Blistex) AdvReac Swelling Verified 08/18/23 09:21 octinoxate (From Blistex) AdvReac Swelling Verified 08/18/23 09:21 octyl salicylate (From AdvReac Swelling Verified 08/18/23 09:21 Blistex) oxybenzone (From Blistex) AdvReac Swelling Verified 08/18/23 09:21 padimate O (From Blistex) AdvReac Swelling Verified 08/18/23 09:21 petrolatum,hydrophilic (From AdvReac Swelling Verified 08/18/23 09:21 Blistex) phenol (From Blistex) AdvReac Swelling Verified 08/18/23 09:21 tetracycline AdvReac Rash Verified 08/18/23 09:21 Family History Father Diabetes Heart disease Mother Diabetes Heart disease Sister Heart disease Thyroid disorder Surgical History History of carpal tunnel surgery Hx of surgical procedure Hx of tooth extraction Hx of breast surgery History of right breast biopsy (~11/2021) History of intestinal surgery History of lumpectomy of right breast Hx of appendectomy Hx of repair of right rotator cuff Hx of bilateral oophorectomy Hx of hysterectomy Social History household members: spouse Smoking Status: Current every day smoker tobacco type: cigarettes alcohol intake: never substance use type: does not use ROS ROS ED Constitutional Constitutional ED: Denies chills or fever(s) ENT ENT ED: Reports as per HPI and facial pain; Denies dental pain Integumentary Reports abscess and rash Neurologic Neurologic: Denies headache(s), paresthesias or weakness EXAM Physical Exam Const Vital Signs: 10/28/23 14:20 10/28/23 14:22 Temperature 97.1 F L 96.9 F L Temperature Source Oral Oral Pulse Rate 88 Respiratory Rate 18 Blood Pressure 105/88 H Blood Pressure Mean 93 Pulse Ox 98 Oxygen Delivery Method Room Air Positive well nourished and well developed General Appearance ED: well developed and NAD HEENT HEENT Narrative: Edentulous. Oral mucous membranes normal. Tender 3-4 cm diameter abscess right lateral face with overlying erythema, the erythema extends down along the jawline to the neck area where the tenderness is more minimal and there is no induration. There is a small papular scabbed lesion without active drainage or discharge expressible at the superior aspect of this is closer to the eye but not as far up as the eyelid, that appears to be the nidus. Eyes PERRL and EOMs intact bilaterally Neck supple Neck Narrative: FROM General: tenderness Resp normal respiratory effort Neuro oriented x3, CN's II-XII intact bilaterally and no sensory deficits noted Motor Exam: strength 5/5 throughout Psych mental status grossly normal Skin Skin Narrative: Abscess with surrounding cellulitis right face see above. No petechia or other lesions. MDM MDM MDM Narrative Medical decision making narrative: Incision and drainage of the right facial abscess performed see the procedure note. 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 Will also place her on mupirocin to see if she can use that to head these off before they become bad in the future. Procedures Other Procedures Procedure(s): Simple abscess I&D: Locally prepped with isopropanol, anesthetized with 2 cc of plain 1% lidocaine in the right maxillary face, incised centrally with a #10 blade, large amount of purulent material was expressed, I deloculated the area and irrigated with a small amount of saline, and expressed all the purulent material that I could. Patient tolerated well no complications dressed with bacitracin, and left open given the cosmetics on the face. Discharge Plan Triage Chief Complaint: Wound ED Provider: Mehrdad Norris Dx/Rx/DC Orders Clinical Impression: Cutaneous abscess of face Instructions: ED Abscess Incision And Drainage Prescriptions: New clindamycin HCl [Cleocin HCl] 300 mg capsule 300 mg PO Q6H Qty: 40 0RF hydrocodone-acetaminophen 5-325 mg tablet 1 tab PO Q6H PRN PRN (Reason: Pain) 3 Days Qty: 10 0RF mupirocin 2 % ointment 1 applic topical TID PRN (Reason: Acne) Qty: 1 0RF No Action hydroxyzine HCl 25 mg tablet 25 mg PO TID Patient Comments: TAKE ONE TABLET BY MOUTH 2-3 TIMES DAILY NEEDED FOR ANXIETY cetirizine 10 mg tablet 10 mg PO BID Patient Comments: TAKE ONE TABLET BY MOUTH EVERY DAY trazodone 150 mg tablet 150 mg PO QHS Patient Comments: take 1 and 1/2 tablet DAILY AT BEDTIME albuterol sulfate 90 mcg/actuation HFA aerosol inhaler 2 puff inhalation Q6H PRN (Reason: shortness of breath or wheezing) Qty: 8.5 0RF ibuprofen 500 mg PO Q6H PRN PRN (Reason: Pain) atorvastatin 40 mg tablet 20 mg PO QHS Patient Comments: TAKE ONE TABLET BY MOUTH AT BEDTIME albuterol sulfate 2.5 mg /3 mL (0.083 %) solution for nebulization 2.5 mg inhalation Q4H PRN (Reason: shortness of breath or wheezing) Patient Comments: inhale ONE ampule EVERY 4 TO 6 HOURS NEEDED Trelegy Ellipta 200-62.5-25 mcg blister with device 1 inh INHALATION Q24H Patient Comments: INHALE 1 PUFF BY MOUTH EVERY DAY sertraline 50 mg tablet 50 mg PO DAILY Patient Comments: TAKE ONE TABLET BY MOUTH EVERY DAY Minerin Creme Cream 1 applic TOPICAL DAILY Patient Comments: apply to lower legs liberally twice daily hydroxyzine HCl 25 mg tablet 50 mg PO QHS acetaminophen [Tylenol Arthritis Pain] 650 mg tablet extended release 1,300 mg PO Q12H Trulicity 3 mg/0.5 mL pen injector 3 mg subcut MATA atorvastatin 20 mg tablet 20 mg PO QHS ondansetron 4 mg tablet,disintegrating 4 mg PO Q6H PRN (Reason: nausea and vomiting) Qty: 12 0RF ondansetron 4 mg tablet,disintegrating 4 mg PO Q4H Qty: 7 0RF Rx Instructions: 1st dose 1-2 hr before radiation ketoconazole 2 % shampoo 1 applic topical omeprazole 40 mg capsule,delayed release(DR/EC) 40 mg PO BID lisinopril 10 mg tablet 10 mg PO DAILY fluticasone propionate 50 mcg/actuation spray,suspension 2 spray INTRANASAL DAILY amoxicillin-pot clavulanate 875-125 mg tablet 1 tab PO BID dapagliflozin propanediol [Farxiga] 10 mg tablet 10 mg PO DAILY triamcinolone acetonide 0.1 % cream topical BID clindamycin HCl [Cleocin HCl] 300 mg capsule 300 mg PO Q6H Qty: 28 0RF sucralfate [Carafate] 1 gram tablet 1 g PO BID Qty: 28 0RF Rx Instructions: Take one tablet by mouth twice daily for two weeks pantoprazole 40 mg tablet,delayed release (DR/EC) 40 mg PO DAILY Qty: 30 0RF Rx Instructions: Take one tablet by mouth daily each morning ondansetron 4 mg tablet,disintegrating 4 mg PO Q6H PRN (Reason: nausea and vomiting) Qty: 20 0RF Stand Alone Forms: ED Work / School Excuse Primary Care Provider: Medical [facility] Referrals: [facility] [Primary [facility] Provider] - 3-5 Days if not improving Print Language: Mongolian Disposition Disposition: Home, Self Care
[2023-10-28] MEDS: Clindamycin HCl 150 MG Capsule 300 MG PO (14:51)
[2023-10-28] MEDS: Lidocaine 1% (20 ml mdv) 20 ML Vial INFILT (14:51)
[2023-10-28 16:05] VITALS: BP 115/82; PULSE 67; RESP 18; TEMP 36.3; O2SAT 96
== END 2023-10-28 16:25 | disposition home or self-care (01) ==
PROVIDERS: Emergency Provider Emergency Medicine; Visit Provider Emergency Medicine
DX: L02.01 Cutaneous abscess of face (principal); Z79.85 Long-term (current) use of injectable non-insulin antidiabetic drugs; F17.210 Nicotine dependence, cigarettes, uncomplicated
CPT/HCPCS: 10060; 99282

== ENCOUNTER → 2023-12-09 | Outpatient (CLI) | payer MEDICAID, SELFPAY ==
[2023-12-09 13:05] LABS: Anion Gap 8 (5-15); BUN 8 mg/dL (7-18); BUN/Creat Ratio 9.1 RATIO (10-20); Calcium,Total 9.2 mg/dL (8.5-10.1); Chloride 110 mmol/L (98-107); Creatinine, Serum 0.88 mg/dL (0.55-1.02); EST Glomerular Filtration Rate 70 mL/min (>60); Est Glom Filt Rate - Afr Amer 84 mL/min (>60); Glucose 281 mg/dL (74-106); Potassium 3.7 mmol/L (3.5-5.1); Sodium Level 142 mmol/L (136-145)
== END | disposition home or self-care (01) ==
PROVIDERS: Visit Provider Nurse Practitioner Family
DX: E11.9 Type 2 diabetes mellitus without complications (principal)
CPT/HCPCS: 36415; 80048

== ENCOUNTER 2024-03-01 13:12 | Emergency (ER) | payer MEDICAID, SELFPAY ==
[2024-03-01 13:13] VITALS: BP 160/90; PULSE 87; RESP 18; TEMP 36.5; O2SAT 100; BMI 27.0
--- NOTE | 2024-03-01 14:21 | EX.ED.DYSGE1 ---
HPI History of Present Illness Chief Complaint: Rash Detail of Chief Complaint: Rash Informant: patient Narrative Narrative: Patient presents the emergency department complaint of rash that she has had for 4 years. Patient is been seen by dermatology for this. In the past it was thought she had psoriasis and then recently was told it was hives. She is been taking Zyrtec. She has been taking topical creams for the rash and it is not getting better. She has an appointment to see a new installer soft top in a month. The rash is very itchy. She denies any new soaps or detergents or perfumes or other allergens. No history of lymphoma or blood cancers. She states she has had blood work recently that was normal. [facility] Medical History Psoriasis Wears glasses Arthritis Difficulty swallowing Gastric reflux History of cellulitis Bilateral carpal tunnel syndrome Anxiety Degenerative disc disease Fibromyalgia MRSA (methicillin resistant staph aureus) culture positive Hx of intestinal obstruction History of diverticulitis Bipolar 1 disorder Depression Diabetes Asthma PTSD (post-traumatic stress disorder) Home Medications ?Medication ?Instructions ?Recorded ?Last Taken ?Type trazodone 150 mg tablet 150 mg PO QHS anxiety 07/15/21 08/10/23 History albuterol sulfate 90 mcg/actuation 2 puff inhalation Q6H PRN 07/16/21 08/08/23 Rx aerosol inhaler shortness of breath or wheezing #8.5 grams ibuprofen 500 mg PO Q6H PRN PRN Pain 03/06/22 08/11/23 History hydroxyzine HCl 25 mg tablet 25 mg PO TID anxiety 11/04/22 08/12/23 07:30 History atorvastatin 40 mg tablet 20 mg PO QHS 11/25/22 08/11/23 History cetirizine 10 mg tablet 10 mg PO BID 03/06/23 08/11/23 History albuterol sulfate 2.5 mg/3 mL 2.5 mg inhalation Q4H PRN 04/08/23 Unknown History (0.083 %) solution for nebulization shortness of breath or wheezing fluticasone fur. 200 mcg-umeclid 1 inh inhalation Q24H 04/08/23 08/12/23 07:30 History 62.5 mcg-vilant 25 mcg inhalat.powder (Trelegy Ellipta) lanolin alcohols-mineral 1 applic topical DAILY 04/08/23 08/10/23 History oil-w.petrolatum-ceresin topical cream (Minerin Creme topical) sertraline 50 mg tablet 50 mg PO DAILY 04/08/23 08/11/23 History acetaminophen 650 mg 1,300 mg PO Q12H 06/23/23 08/09/23 History tablet,extended release (Tylenol Arthritis Pain) hydroxyzine HCl 25 mg tablet 50 mg PO QHS 06/23/23 08/11/23 History ondansetron 4 mg disintegrating 4 mg PO Q6H PRN nausea and 07/24/23 08/11/23 Rx tablet vomiting #12 tabs dulaglutide 3 mg/0.5 mL 3 mg subcut MATA 08/06/23 08/10/23 History subcutaneous pen injector (Trulicity) sucralfate 1 gram tablet (Carafate) 1 g PO BID #28 tabs 08/13/23 Unknown Rx ondansetron 4 mg disintegrating 4 mg PO Q4H #7 tabs 08/18/23 Unknown Rx tablet pantoprazole 40 mg tablet,delayed 40 mg PO DAILY #30 tabs 08/19/23 Unknown Rx release amoxicillin 875 mg-potassium 1 tab PO BID 10/01/23 Unknown History clavulanate 125 mg tablet clindamycin HCl 300 mg capsule 300 mg PO Q6H #28 CAPSULES 10/01/23 Unknown Rx (Cleocin HCl) dapagliflozin propanediol 10 mg 10 mg PO DAILY 10/01/23 Unknown History tablet (Farxiga) fluticasone propionate 50 2 spray intranasal DAILY 10/01/23 Unknown History mcg/actuation nasal spray,suspension ketoconazole 2 % shampoo 1 applic topical 10/01/23 Unknown History lisinopril 10 mg tablet 10 mg PO DAILY 10/01/23 Unknown History omeprazole 40 mg capsule,delayed 40 mg PO BID 10/01/23 Unknown History release triamcinolone acetonide 0.1 % applic topical BID 10/01/23 Unknown History topical cream ondansetron 4 mg disintegrating 4 mg PO Q6H PRN nausea and 10/06/23 Unknown Rx tablet vomiting #20 tabs atorvastatin 20 mg tablet 20 mg PO QHS 10/28/23 Unknown History clindamycin HCl 300 mg capsule 300 mg PO Q6H #40 CAPSULES 10/28/23 Unknown Rx (Cleocin HCl) hydrocodone-acetaminophen 5-325mg 1 tab PO Q6H PRN PRN Pain 3 days 10/28/23 Unknown Rx 5mg-325mg #10 TABLETS mupirocin 2 % topical ointment 1 applic topical TID PRN Acne #1 10/28/23 Unknown Rx tube prednisone 20 mg tablet 20 mg PO BID #10 tabs 03/01/24 Unknown Rx Allergy/AdvReac Type Severity Reaction Status Date / Time Tetracyclines Allergy Intermediate Rash Verified 03/01/24 13:13 aminophylline Allergy Swelling Verified 03/01/24 13:13 amphetamine (From Adderall) Allergy Other Verified 03/01/24 13:13 dextroamphetamine (From Allergy Other Verified 03/01/24 13:13 Adderall) dulaglutide (From Trulicity) Allergy Vomiting Verified 03/01/24 13:13 Iodinated Contrast Media (CT) Allergy Swelling Verified 03/01/24 13:13 iodine Allergy Swelling Verified 03/01/24 13:13 povidone-iodine (From Allergy Swelling Verified 03/01/24 13:13 Betadine) shellfish derived Allergy Swelling Verified 03/01/24 13:13 Sulfa (Sulfonamide Allergy Swelling Verified 03/01/24 13:13 Antibiotics) buspirone (From BuSpar) AdvReac Intermediate Other Verified 03/01/24 13:13 allantoin (From Blistex) AdvReac Swelling Verified 03/01/24 13:13 aloe vera (From Blistex) AdvReac Swelling Verified 03/01/24 13:13 camphor (From Blistex) AdvReac Swelling Verified 03/01/24 13:13 chamomile flower (From AdvReac Swelling Verified 03/01/24 13:13 Blistex) dimethicone (From Blistex) AdvReac Swelling Verified 03/01/24 13:13 herbal complex no.57 (From AdvReac Swelling Verified 03/01/24 13:13 Blistex) homosalate (From Blistex) AdvReac Swelling Verified 03/01/24 13:13 menthol (From Blistex) AdvReac Swelling Verified 03/01/24 13:13 meradimate (From Blistex) AdvReac Swelling Verified 03/01/24 13:13 octinoxate (From Blistex) AdvReac Swelling Verified 03/01/24 13:13 octyl salicylate (From AdvReac Swelling Verified 03/01/24 13:13 Blistex) oxybenzone (From Blistex) AdvReac Swelling Verified 03/01/24 13:13 padimate O (From Blistex) AdvReac Swelling Verified 03/01/24 13:13 petrolatum,hydrophilic (From AdvReac Swelling Verified 03/01/24 13:13 Blistex) phenol (From Blistex) AdvReac Swelling Verified 03/01/24 13:13 tetracycline AdvReac Rash Verified 03/01/24 13:13 Family History (Updated 02/25/24 @ 14:26 by Abigail Rowley) Father Diabetes Heart disease COPD (chronic obstructive pulmonary disease) Hypertension Mother Diabetes Heart disease COPD (chronic obstructive pulmonary disease) Cancer Sister Heart disease Thyroid disorder Surgical History History of carpal tunnel surgery Hx of surgical procedure Hx of tooth extraction Hx of breast surgery History of right breast biopsy (~11/2021) History of intestinal surgery History of lumpectomy of right breast Hx of appendectomy Hx of repair of right rotator cuff Hx of bilateral oophorectomy Hx of hysterectomy Social History (Updated 02/25/24 @ 14:27 by Abigail Rowley) household members: spouse housing: other details: homeless lives in correction Smoking Status: Current every day smoker tobacco type: cigarettes alcohol intake: never substance use type: does not use ROS ROS ED Review of Systems ROS Unobtainable: other Constitutional Constitutional ED: Reports lethargy; Denies chills, fever(s), sweats or weight loss Eyes Eyes: Denies blurry vision, change in vision or diplopia ENT ENT ED: Denies rhinorrhea or sore throat Cardiovascular Cardiovascular: Denies chest pain, orthopnea or racing heartbeat Respiratory/Chest Respiratory/Chest: Denies cough, dyspnea, dyspnea on exertion, orthopnea or sputum Gastrointestinal Gastrointestinal: Denies abdominal pain, diarrhea, nausea or vomiting Genitourinary Genitourinary ED: Denies dysuria, hematuria or urinary frequency Musculoskeletal Musculoskeletal: Denies arthralgias, back pain, myalgias or neck pain Integumentary Reports rash; Denies abscess or Abrasions Neurologic Neurologic: Denies headache(s) or weakness Psychiatric Psychiatric: Denies anxiety, depression or suicidal thoughts Endocrine Endocrinology: Denies polydipsia, polyphagia or polyuria Hematologic/Lymphatic Hematologic/Lymphatic: Denies easy bleeding, easy bruising or lymphadenopathy Allergic/Immunologic Allergic/Immunologic ED: Denies mouth swelling, tongue swelling or urticaria EXAM Physical Exam Const Vital Signs: 03/01/24 13:13 Temperature 97.7 F L Temperature Source Oral Pulse Rate 87 Respiratory Rate 18 Blood Pressure 160/90 H Blood Pressure Mean 113 Pulse Ox 100 Oxygen Delivery Method Room Air Positive well nourished and well developed General Appearance ED: well developed and NAD HEENT Reports TM's clear and moist mucous membranes normocephalic and atraumatic; Negative for trauma or tenderness Tympanic Membrane ED: Yes TM's clear Eyes PERRL and EOMs intact bilaterally General Eye ED: Negative for pale conjunctiva or scleral icterus Neck no lymphadenopathy, supple and no JVD General: Negative for tenderness Chest Wall inspection of chest normal and palpation of chest normal Chest: Negative for tenderness Resp normal respiratory effort and clear to auscultation bilaterally Effort and Inspection: Negative for respiratory distress or pain with movement Auscultation: Negative for rhonchi, wheezes or diminished lung sounds Cardio regular rate, regular rhythm, S1 normal heart sound, S2 normal heart sound and no murmurs Peripheral Pulses: pulses 2+ throughout GI normal to inspection, nondistended, normoactive bowel sounds, soft to palpation, non-tender, non-distended and no masses Back/Spine no CVA tenderness and no thoracic nor lumbar tenderness Extremity normal to inspection General Extremety ED: Negative for edema General Extremity: Negative for edema Neuro oriented x3, CN's II-XII intact bilaterally, no sensory deficits noted and gait normal Sensorium / Orientation: awake, alert, oriented to person, oriented to place and oriented to time Motor Exam: strength 5/5 throughout and strength abnormal Psych mental status grossly normal Skin no wounds Skin Narrative: Patient with a erythematous rash with some scaling noted involving the extremities as well as the trunk. Confluent in certain areas. Does not appear to be raised. No vesicles noted. There is no petechiae. MDM MDM MDM Narrative Medical decision making narrative: Patient presents with a rash that she has had for over 4 years and following up with dermatology. She tells me its never been biopsied before. She tells me she had blood work that was essentially normal within the last month at the [facility]. In reviewing the medical record in her chart she does have a normal CBC in August 2023. Patient clinically looks well. She presents asking for prednisone because last time she got this bad it seemed to really help her. Patient also asking for a note for work for today. Etiology of rash unclear although I suspect may be psoriasis although it does not involve the elbows and knees. Patient will be started on prednisone and advised to keep her appointment with her installer soft top and primary care physician Discharge Plan Triage Chief Complaint: Rash ED Provider: Gilda Drkae Dx/Rx/DC Orders Clinical Impression: Dermatitis Instructions: ED Erythema, ED Psoriasis Prescriptions: New prednisone 20 mg tablet 20 mg PO BID Qty: 10 0RF No Action hydroxyzine HCl 25 mg tablet 25 mg PO TID Patient Comments: TAKE ONE TABLET BY MOUTH 2-3 TIMES DAILY NEEDED FOR ANXIETY cetirizine 10 mg tablet 10 mg PO BID Patient Comments: TAKE ONE TABLET BY MOUTH EVERY DAY trazodone 150 mg tablet 150 mg PO QHS Patient Comments: take 1 and 1/2 tablet DAILY AT BEDTIME albuterol sulfate 90 mcg/actuation HFA aerosol inhaler 2 puff inhalation Q6H PRN (Reason: shortness of breath or wheezing) Qty: 8.5 0RF ibuprofen 500 mg PO Q6H PRN PRN (Reason: Pain) atorvastatin 40 mg tablet 20 mg PO QHS Patient Comments: TAKE ONE TABLET BY MOUTH AT BEDTIME albuterol sulfate 2.5 mg /3 mL (0.083 %) solution for nebulization 2.5 mg inhalation Q4H PRN (Reason: shortness of breath or wheezing) Patient Comments: inhale ONE ampule EVERY 4 TO 6 HOURS NEEDED Trelegy Ellipta 200-62.5-25 mcg blister with device 1 inh INHALATION Q24H Patient Comments: INHALE 1 PUFF BY MOUTH EVERY DAY sertraline 50 mg tablet 50 mg PO DAILY Patient Comments: TAKE ONE TABLET BY MOUTH EVERY DAY Minerin Creme Cream 1 applic TOPICAL DAILY Patient Comments: apply to lower legs liberally twice daily hydroxyzine HCl 25 mg tablet 50 mg PO QHS acetaminophen [Tylenol Arthritis Pain] 650 mg tablet extended release 1,300 mg PO Q12H Trulicity 3 mg/0.5 mL pen injector 3 mg subcut MATA clindamycin HCl [Cleocin HCl] 300 mg capsule 300 mg PO Q6H Qty: 40 0RF hydrocodone-acetaminophen 5-325 mg tablet 1 tab PO Q6H PRN PRN (Reason: Pain) 3 Days Qty: 10 0RF atorvastatin 20 mg tablet 20 mg PO QHS mupirocin 2 % ointment 1 applic topical TID PRN (Reason: Acne) Qty: 1 0RF ondansetron 4 mg tablet,disintegrating 4 mg PO Q6H PRN (Reason: nausea and vomiting) Qty: 12 0RF ondansetron 4 mg tablet,disintegrating 4 mg PO Q4H Qty: 7 0RF Rx Instructions: 1st dose 1-2 hr before radiation ketoconazole 2 % shampoo 1 applic topical omeprazole 40 mg capsule,delayed release(DR/EC) 40 mg PO BID lisinopril 10 mg tablet 10 mg PO DAILY fluticasone propionate 50 mcg/actuation spray,suspension 2 spray INTRANASAL DAILY amoxicillin-pot clavulanate 875-125 mg tablet 1 tab PO BID dapagliflozin propanediol [Farxiga] 10 mg tablet 10 mg PO DAILY triamcinolone acetonide 0.1 % cream topical BID clindamycin HCl [Cleocin HCl] 300 mg capsule 300 mg PO Q6H Qty: 28 0RF sucralfate [Carafate] 1 gram tablet 1 g PO BID Qty: 28 0RF Rx Instructions: Take one tablet by mouth twice daily for two weeks pantoprazole 40 mg tablet,delayed release (DR/EC) 40 mg PO DAILY Qty: 30 0RF Rx Instructions: Take one tablet by mouth daily each morning ondansetron 4 mg tablet,disintegrating 4 mg PO Q6H PRN (Reason: nausea and vomiting) Qty: 20 0RF Primary Care Provider: Shahida Washington Referrals: Shahida Washington [Primary Care Provider] - Activity Restrictions/Additional Instructions: Keep your scheduled appointment with dermatology and follow-up with primary care physician. Print Language: Palestinian Disposition Disposition: Home, Self Care
== END 2024-03-01 14:46 | disposition home or self-care (01) ==
PROVIDERS: Emergency Provider Emergency Medicine; Visit Provider Emergency Medicine
DX: E11.620 Type 2 diabetes mellitus with diabetic dermatitis (principal); F17.210 Nicotine dependence, cigarettes, uncomplicated; Z79.84 Long term (current) use of oral hypoglycemic drugs; Z79.85 Long-term (current) use of injectable non-insulin antidiabetic drugs; Z59.01 Sheltered homelessness
CPT/HCPCS: 99282

== ENCOUNTER → 2024-03-25 | Outpatient (CLI) | payer MEDICAID, SELFPAY ==
[2024-03-25 08:32] LABS: Absolute Lymphocyte Count 1.17 X10^3/uL (0.83-4.51); Absolute Neutrophil Count 2.8 X10^3/uL (2.0-7.7); Basophil# 0.03 X10^3/uL; Basophil% 0.7 % (0-1); Eosinophil# 0.26 X10^3/uL; Eosinophils% 5.7 % (0-5); Hematocrit 39.3 % (37-47); Hemoglobin 12.2 g/dL (12.0-15.0); Lymphocyte # 1.17 X10^3/ul (0.83-4.51); Lymphocyte % 25.5 % (19-41); Mean Corpuscular Hgb 27.7 pg (27.0-32.0); Mean Corpuscular Volume 89.1 fL (81-99); Mean Platelet Vol. 9.2 fl (6.2-12.0); Monocyte# 0.36 X10^3/uL; Monocyte% 7.8 % (0-10); NRBC Flagged by Analyzer 0 % (0-5); Neutrophil # 2.75 X10^3/uL (2.7-7.7); Neutrophil % 59.9 % (47-70); Platelet Count 242 K/mm3 (150-450); RBC Distribution Width CV 13.4 % (11.6-14.6); RBC Distribution Width SD 43.7 fl (35.1-43.9); Red Blood Count 4.41 M/mm3 (4.2-5.4); White Blood Count 4.6 K/mm3 (4.4-11.0)
[2024-03-25 08:45] LABS: International Normalized Ratio 0.9; Prothrombin Time (Protime)PT. 12.4 SECONDS (11.7-14.9)
[2024-03-25 08:47] LABS: Partial Thromboplast Time 29.6 Seconds (24.1-36.2)
[2024-03-25 08:54] LABS: Erythrocyte Sedimentation Rate 7 mm/hr (0-30)
[2024-03-25 09:13] LABS: Thyroid Stim Hormone (TSH) 0.489 uIU/mL (0.358-3.740)
[2024-03-25 09:22] LABS: ALB/GLOB Ratio 1.2 RATIO (0.9-2.4); AST(SGOT) 18 U/L (15-37); Alanine Aminotransfer ALT/SGPT 11 U/L (13-56); Albumin, Serum 3.6 g/dL (3.2-5.0); Alkaline Phosphatase 184 U/L (45-117); Anion Gap 5 (5-15); BUN 18 mg/dL (7-18); BUN/Creat Ratio 21.8 RATIO (10-20); Bilirubin, Direct 0.13 mg/dL (0.00-0.30); CRP < 2.90 mg/L (0.0-3.0); Calcium,Total 8.8 mg/dL (8.5-10.1); Chloride 110 mmol/L (98-107); Cholesterol 177 mg/dL (200); Creatinine, Serum 0.82 mg/dL (0.55-1.02); EST Glomerular Filtration Rate 75 mL/min (>60); Est Glom Filt Rate - Afr Amer 91 mL/min (>60); Ferritin 12 ng/mL (8-252); Globulin 3.1 g/dL (2.2-4.2); Glucose 140 mg/dL (74-106); High Density Lipoprotein 54 mg/dL; Iron Binding Capacity,Total 421 ug/dL (250-450); LDH 222 U/L (84-246); Potassium 3.5 mmol/L (3.5-5.1); Protein, Total 6.7 g/dL (6.4-8.2); Sodium Level 140 mmol/L (136-145); Triglycerides 123 mg/dL; Very Low Density Lipoprotein 25 mg/dL (5-40)
[2024-03-25 10:26] LABS: Microalbumin,Random Urine < 5.0 mg/L (NO RANGE EST.)
[2024-03-25 10:59] LABS: Hemoglobin A1c 7.5 % (3.8-5.6)
[2024-03-25 13:09] LABS: HIV - WCH Non-Reactive (Nonreactive)
[2024-03-26 15:08] LABS: Anti-Centromere B Ab <0.2 AI (0.0-0.9); Anti-Chromatin 0.3 AI (0.0-0.9); Anti-Jo <0.2 AI (0.0-0.9); Anti-Mitochondrial AB <20.0 Units (0.0-20.0); Anti-Scleroderma-70 AB <0.2 AI (0.0-0.9); Anti-dsDNA Ab <1 IU/mL (0-9); RNP Ab <0.2 AI (0.0-0.9); SJOGREN'S Anti-SS-A test 2.4 AI (0.0-0.9); SJOGREN'S Anti-SS-B test < 0.2 AI (0.0-0.9); Smith Ab <0.2 AI (0.0-0.9)
[2024-03-31 22:07] LABS: AFP, Tumor Marker 4.6 ng/mL (0.0-9.2); Angiotensin Convert Enzyme 55 U/L (14-82); Anti-Smooth Muscle ABS 2 Units (0-19); Copper, Serum or Plasma 120 ug/dL (80-158); Cytoplasmic Ab (C-ANCA) <1:20 titer (Neg:<1:20); HEPATITIS B SURFACE AG Negative (Negative); Haptoglobin 130 mg/dL (33-346); Hep C Antibodies Non Reactive (Non Reactive); Hepatitis A IgM Antibody Negative (Negative); Hepatitis B Core AB IgM Negative (Negative); Perinuclear Ab (P-ANCA) <1:20 titer (Neg:<1:20); Transferrin 308 mg/dL (192-364)
== END | disposition home or self-care (01) ==
LOC: US 07:47
PROVIDERS: PCP Nurse Practitioner Family; Referring Provider Student in an Organized Health Care Education/Training Program; Visit Provider Student in an Organized Health Care Education/Training Program
DX: I85.00 Esophageal varices without bleeding (principal); E11.9 Type 2 diabetes mellitus without complications; I10 Essential (primary) hypertension; E78.5 Hyperlipidemia, unspecified; Z91.81 History of falling
CPT/HCPCS: 36415; 73030; 73562; 73590; 76705; 76981; 80053; 80061; 80074; 82043; 82105; 82140; 82164; 82248; 82390; 82525; 82728; 83010; 83036; 83516; 83550; 83615; 84443; 84466; 85025; 85610; 85652; 85730; 86037; 86140; 86225; 86235; 86703

== ENCOUNTER 2024-04-14 13:41 | Emergency (ER) | payer MEDICAID, SELFPAY ==
[2024-04-14 13:42] VITALS: BP 145/82; PULSE 85; RESP 18; TEMP 36.1; O2SAT 98; BMI 25.4
--- NOTE | 2024-04-14 14:33 | EDS_ITS ---
HPI History of Present Illness Chief Complaint: Allergic Reaction Informant: patient Narrative Narrative: Presents for concerns for allergic rash. Use witch beverly to wash her body yesterday, noted pruritic rash today mostly in the torso. No lip or tongue swelling. Took 3 Benadryl's prior to arrival. Reports being worked up for concerns for lupus. Diabetic history reports sugars are well-controlled. She is on Zyrtec twice daily also. She states she used witch beverly 1 time in the past with no reaction. Prior similar symptoms: No PFSH PFSH Medical History Osteoarthritis of right knee Right knee pain Greater trochanteric bursitis of left hip Osteoarthritis of left hip Left hip pain Psoriasis Wears glasses Arthritis Difficulty swallowing Gastric reflux History of cellulitis Bilateral carpal tunnel syndrome Anxiety Degenerative disc disease Fibromyalgia MRSA (methicillin resistant staph aureus) culture positive Hx of intestinal obstruction History of diverticulitis Bipolar 1 disorder Depression Diabetes Asthma PTSD (post-traumatic stress disorder) Home Medications ?Medication ?Instructions ?Recorded ?Last Taken ?Type trazodone 150 mg tablet 150 mg PO QHS anxiety 07/15/21 08/10/23 History albuterol sulfate 90 mcg/actuation 2 puff inhalation Q6H PRN 07/16/21 08/08/23 Rx aerosol inhaler shortness of breath or wheezing #8.5 grams ibuprofen 500 mg PO Q6H PRN PRN Pain 03/06/22 08/11/23 History hydroxyzine HCl 25 mg tablet 25 mg PO TID anxiety 11/04/22 08/12/23 07:30 History cetirizine 10 mg tablet 10 mg PO BID 03/06/23 08/11/23 History fluticasone fur. 200 mcg-umeclid 1 inh inhalation Q24H 04/08/23 08/12/23 07:30 History 62.5 mcg-vilant 25 mcg inhalat.powder (Trelegy Ellipta) lanolin alcohols-mineral 1 applic topical DAILY 04/08/23 08/10/23 History oil-w.petrolatum-ceresin topical cream (Minerin Creme topical) sertraline 50 mg tablet 50 mg PO DAILY 04/08/23 08/11/23 History acetaminophen 650 mg 1,300 mg PO Q12H 06/23/23 08/09/23 History tablet,extended release (Tylenol Arthritis Pain) hydroxyzine HCl 25 mg tablet 50 mg PO QHS 06/23/23 08/11/23 History dapagliflozin propanediol 10 mg 10 mg PO DAILY 10/01/23 Unknown History tablet (Farxiga) omeprazole 40 mg capsule,delayed 40 mg PO BID 10/01/23 Unknown History release triamcinolone acetonide 0.1 % 1 applic topical BID 10/01/23 Unknown History topical cream atorvastatin 20 mg tablet 20 mg PO QHS 10/28/23 Unknown History prednisone 20 mg tablet 20 mg PO BID #10 tabs 03/01/24 Unknown Rx dicyclomine 20 mg tablet 20 mg PO BID PRN abdominal pain 03/12/24 Unknown Rx #30 tabs gabapentin 100 mg capsule 100 mg PO TID 03/12/24 Unknown History metformin 500 mg tablet 500 mg PO BID 03/12/24 Unknown History ondansetron 4 mg disintegrating 4 mg PO Q8H #20 tabs 03/12/24 Unknown Rx tablet propranolol 20 mg tablet 20 mg PO BID 03/12/24 Unknown History prednisone 20 mg tablet 40 mg (2 x 20 mg) PO DAILY #8 04/14/24 Unknown Rx TABLETS Allergy/AdvReac Type Severity Reaction Status Date / Time Tetracyclines Allergy Intermediate Rash Verified 04/14/24 13:45 aminophylline Allergy Swelling Verified 04/14/24 13:45 amphetamine (From Adderall) Allergy Other Verified 04/14/24 13:45 dextroamphetamine (From Allergy Other Verified 04/14/24 13:45 Adderall) dulaglutide (From Trulicity) Allergy Vomiting Verified 04/14/24 13:45 Iodinated Contrast Media (CT) Allergy Swelling Verified 04/14/24 13:45 iodine Allergy Swelling Verified 04/14/24 13:45 povidone-iodine (From Allergy Swelling Verified 04/14/24 13:45 Betadine) shellfish derived Allergy Swelling Verified 04/14/24 13:45 Sulfa (Sulfonamide Allergy Swelling Verified 04/14/24 13:45 Antibiotics) buspirone (From BuSpar) AdvReac Intermediate Other Verified 04/14/24 13:45 allantoin (From Blistex) AdvReac Swelling Verified 04/14/24 13:45 aloe vera (From Blistex) AdvReac Swelling Verified 04/14/24 13:45 camphor (From Blistex) AdvReac Swelling Verified 04/14/24 13:45 chamomile flower (From AdvReac Swelling Verified 04/14/24 13:45 Blistex) dimethicone (From Blistex) AdvReac Swelling Verified 04/14/24 13:45 herbal complex no.57 (From AdvReac Swelling Verified 04/14/24 13:45 Blistex) homosalate (From Blistex) AdvReac Swelling Verified 04/14/24 13:45 menthol (From Blistex) AdvReac Swelling Verified 04/14/24 13:45 meradimate (From Blistex) AdvReac Swelling Verified 04/14/24 13:45 octinoxate (From Blistex) AdvReac Swelling Verified 04/14/24 13:45 octyl salicylate (From AdvReac Swelling Verified 04/14/24 13:45 Blistex) oxybenzone (From Blistex) AdvReac Swelling Verified 04/14/24 13:45 padimate O (From Blistex) AdvReac Swelling Verified 04/14/24 13:45 petrolatum,hydrophilic (From AdvReac Swelling Verified 04/14/24 13:45 Blistex) phenol (From Blistex) AdvReac Swelling Verified 04/14/24 13:45 tetracycline AdvReac Rash Verified 04/14/24 13:45 Family History Father Diabetes Heart disease COPD (chronic obstructive pulmonary disease) Hypertension Mother Diabetes Heart disease COPD (chronic obstructive pulmonary disease) Cancer Sister Heart disease Thyroid disorder Surgical History History of carpal tunnel surgery Hx of surgical procedure Hx of tooth extraction Hx of breast surgery History of right breast biopsy (~11/2021) History of intestinal surgery History of lumpectomy of right breast Hx of appendectomy Hx of repair of right rotator cuff Hx of bilateral oophorectomy Hx of hysterectomy Social History household members: spouse housing: other details: homeless lives in prison Smoking Status: Current every day smoker tobacco type: cigarettes alcohol intake: never substance use type: does not use ROS ROS ED Constitutional Constitutional ED: Denies chills, fever(s) or sweats Eyes Eyes: Denies change in vision ENT ENT ED: Denies dysphagia or sore throat Cardiovascular Cardiovascular: Denies chest pain Respiratory/Chest Respiratory/Chest: Denies dyspnea Gastrointestinal Gastrointestinal: Denies abdominal pain, diarrhea, nausea or vomiting Genitourinary Genitourinary ED: Denies dysuria Musculoskeletal Musculoskeletal: Denies back pain, extremity pain or neck pain Integumentary Reports rash; Denies wounds Neurologic Neurologic: Denies paresthesias or weakness EXAM Physical Exam Const Vital Signs: 04/14/24 13:42 04/14/24 15:16 Temperature 97 F L 98.3 F Temperature Source Oral Pulse Rate 85 82 Respiratory Rate 18 17 Blood Pressure 145/82 H 138/71 H Blood Pressure Mean 103 93 Pulse Ox 98 97 Oxygen Delivery Method Room Air Positive well nourished and well developed General Appearance ED: well developed and NAD HEENT HEENT Narrative: No lip or tongue swelling, airway patent. normocephalic and atraumatic Eyes EOMs intact bilaterally and conjunctivae normal General Eye ED: Yes normal appearance of both eyes Neck no lymphadenopathy and supple General: Negative for tenderness Chest Wall Chest: Negative for tenderness Resp normal respiratory effort and normal air movement Effort and Inspection: symmetric chest movement; Negative for respiratory d istress Cardio regular rate, regular rhythm and no murmurs Peripheral Pulses: pulses 2+ throughout GI normal to inspection, nondistended, normoactive bowel sounds and non-tender Palpation: Negative for guarding or rebound tenderness present Back/Spine no CVA tenderness and no thoracic nor lumbar tenderness Extremity normal to inspection General Extremety ED: Negative for edema or tenderness General Extremity: Negative for edema Neuro oriented x3 and no sensory deficits noted Sensorium / Orientation: awake and alert Skin Skin Narrative: Diffuse papular rash scattered from neck torso down to her upper thighs and bilateral arms. No urticarial lesions. No induration. MDM MDM MDM Narrative Medical decision making narrative: Interventions / MDM: Differential diagnosis: Contact dermatitis, allergic rash Diagnosis considered but do not suspect: No clinical anaphylaxis My EKG interpretation: N/A Imaging independently reviewed and interpreted by myself: N/A External documents reviewed: N/A Test considered but not ordered:N/A ED course: Patient diffuse papular rash after using witch beverly. No signs of clinical anaphylaxis. Status post Benadryl prior to arrival. Blood glucose 182. Start prednisone to help with symptoms to monitor sugars. She is on Zyrtec twice a day. She will continue. She will continue Benadryl every 6 hours as needed. Outpatient follow-up with her doctor. Re-evaluation: stable Disposition discussed with patient/family/significant other: Patient Case discussed with consulting clinician: N/A This note was generated with [employer] dictation software. It may contain incorrect words, spelling, and punctuation that were not noted in checking the note before signing. Lab Data Labs: Laboratory Results - last 24 hr 04/14/24 14:45 POC Glucose 182 H Discharge Plan Triage Chief Complaint: Allergic Reaction ED Provider: Montrell Zapien Dx/Rx/DC Orders Clinical Impression: Contact dermatitis, Allergic rash present on examination, History of diabetes mellitus Instructions: ED Contact Dermatitis Prescriptions: New prednisone 20 mg tablet 40 mg PO DAILY Qty: 8 0RF No Action hydroxyzine HCl 25 mg tablet 25 mg PO TID Patient Comments: TAKE ONE TABLET BY MOUTH 2-3 TIMES DAILY NEEDED FOR ANXIETY cetirizine 10 mg tablet 10 mg PO BID Patient Comments: TAKE ONE TABLET BY MOUTH EVERY DAY gabapentin 100 mg capsule 100 mg PO TID metformin 500 mg tablet 500 mg PO BID propranolol 20 mg tablet 20 mg PO BID dicyclomine 20 mg tablet 20 mg PO BID PRN (Reason: abdominal pain) Qty: 30 2RF ondansetron 4 mg tablet,disintegrating 4 mg PO Q8H Qty: 20 2RF trazodone 150 mg tablet 150 mg PO QHS Patient Comments: take 1 and 1/2 tablet DAILY AT BEDTIME albuterol sulfate 90 mcg/actuation HFA aerosol inhaler 2 puff inhalation Q6H PRN (Reason: shortness of breath or wheezing) Qty: 8.5 0RF ibuprofen 500 mg PO Q6H PRN PRN (Reason: Pain) Trelegy Ellipta 200-62.5-25 mcg blister with device 1 inh INHALATION Q24H Patient Comments: INHALE 1 PUFF BY MOUTH EVERY DAY sertraline 50 mg tablet 50 mg PO DAILY Patient Comments: TAKE ONE TABLET BY MOUTH EVERY DAY Minerin Creme Cream 1 applic TOPICAL DAILY Patient Comments: apply to lower legs liberally twice daily hydroxyzine HCl 25 mg tablet 50 mg PO QHS acetaminophen [Tylenol Arthritis Pain] 650 mg tablet extended release 1,300 mg PO Q12H atorvastatin 20 mg tablet 20 mg PO QHS omeprazole 40 mg capsule,delayed release(DR/EC) 40 mg PO BID dapagliflozin propanediol [Farxiga] 10 mg tablet 10 mg PO DAILY triamcinolone acetonide 0.1 % cream 1 applic topical BID prednisone 20 mg tablet 20 mg PO BID Qty: 10 0RF Primary Care Provider: Taylor Fields Referrals: Taylor Fields, [employer] [Primary Care Provider] - 1 Week Activity Restrictions/Additional Instructions: Avoid the witch beverly. Take prednisone as prescribed. Your sugars will be elevated briefly while on steroids. Continue your Zyrtec twice a day. Continue Benadryl every 6 hours as needed. Print Language: Gibralt[place] Disposition Disposition: Home, Self Care Discharge Date/Time: 04/14/24 15:18
[2024-04-14 15:04] LABS: Bedside Glucose 182 mg/dL (74-106)
[2024-04-14] MEDS: predniSONE 20 MG Tablet 40 MG PO (15:04)
[2024-04-14 15:16] VITALS: BP 138/71; PULSE 82; RESP 17; TEMP 36.8; O2SAT 97
== END 2024-04-14 15:18 | disposition home or self-care (01) ==
PROVIDERS: Emergency Provider Emergency Medicine; PCP Nurse Practitioner Family; Visit Provider Emergency Medicine
DX: L23.2 Allergic contact dermatitis due to cosmetics (principal); E11.9 Type 2 diabetes mellitus without complications; F17.210 Nicotine dependence, cigarettes, uncomplicated; R19.7 Diarrhea, unspecified; Z59.01 Sheltered homelessness; Z79.84 Long term (current) use of oral hypoglycemic drugs
CPT/HCPCS: 36415; 80053; 82248; 82962; 85025; 99282

== ENCOUNTER → 2024-04-14 | Outpatient (CLI) | payer MEDICAID, SELFPAY ==
[2024-04-14 13:38] LABS: Absolute Lymphocyte Count 2.27 X10^3/uL (0.83-4.51); Basophil# 0.05 X10^3/uL; Basophil% 0.4 % (0-1); Eosinophil# 0.06 X10^3/uL; Eosinophils% 0.4 % (0-5); Hematocrit 40.3 % (37-47); Hemoglobin 13.2 g/dL (12.0-15.0); Lymphocyte # 2.27 X10^3/ul (0.83-4.51); Lymphocyte % 16.2 % (19-41); Mean Corp Hgb Conc 32.8 g/dL (32-36); Mean Corpuscular Hgb 27.7 pg (27.0-32.0); Mean Corpuscular Volume 84.7 fL (81-99); Monocyte# 1.42 X10^3/uL; Monocyte% 10.2 % (0-10); NRBC Flagged by Analyzer 0 % (0-5); Neutrophil # 9.97 X10^3/uL (2.7-7.7); Neutrophil % 71.2 % (47-70); Platelet Count 299 K/mm3 (150-450); RBC Distribution Width CV 12.7 % (11.6-14.6); RBC Distribution Width SD 39.1 fl (35.1-43.9); Red Blood Count 4.76 M/mm3 (4.2-5.4)
[2024-04-14 14:20] LABS: ALB/GLOB Ratio 1.2 RATIO (0.9-2.4); AST(SGOT) 20 U/L (15-37); Alanine Aminotransfer ALT/SGPT 19 U/L (13-56); Albumin, Serum 3.7 g/dL (3.2-5.0); Alkaline Phosphatase 185 U/L (45-117); Anion Gap 6 (5-15); BUN 16 mg/dL (7-18); BUN/Creat Ratio 16.9 RATIO (10-20); Bilirubin, Direct 0.13 mg/dL (0.00-0.30); Calcium,Total 8.8 mg/dL (8.5-10.1); Chloride 108 mmol/L (98-107); Creatinine, Serum 0.95 mg/dL (0.55-1.02); EST Glomerular Filtration Rate 64 mL/min (>60); Est Glom Filt Rate - Afr Amer 77 mL/min (>60); Globulin 3.1 g/dL (2.2-4.2); Glucose 223 mg/dL (74-106); Potassium 3.6 mmol/L (3.5-5.1); Protein, Total 6.8 g/dL (6.4-8.2); Sodium Level 138 mmol/L (136-145)
== END | disposition home or self-care (01) ==
LOC: LAB 13:19
PROVIDERS: PCP Nurse Practitioner Family; Referring Provider Student in an Organized Health Care Education/Training Program; Visit Provider Student in an Organized Health Care Education/Training Program
DX: R19.7 Diarrhea, unspecified (principal)
CPT/HCPCS: 36415; 80053; 82248; 85025

== ENCOUNTER 2024-04-19 18:04 | Emergency (ER) | payer MEDICAID, SELFPAY ==
[2024-04-19 18:04] VITALS: BP 146/92; PULSE 122; RESP 16; TEMP 35.8; O2SAT 98; BMI 25.0
--- NOTE | 2024-04-19 19:34 | EX.ED.DYSGE1 ---
HPI History of Present Illness Chief Complaint: Nausea/Vomiting Informant: patient Narrative Narrative: 58-year-old female presents with vomiting for the past 3 days consistently. It is nonbloody. She states it is basically anytime she tries to swallow anything including water. She feels like everything gets stuck in her mid chest and she cannot pass anything into her stomach. 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 She states that she has a repeat EGD to reevaluate it scheduled later this week. She had less persistent but daily vomiting earlier in the year, but it has not been as significant an issue until 3 days ago. She denies any abdominal or chest pain except for muscular soreness from retching, and she has some pain in her maxillary anterior gingiva and the corners of her mouth without bleeding. She denies any syncopal episodes, fevers or chills. She does have also have a history of esophageal varices that were found on EGD, but no cirrhosis that she knows of, she just became established with GI the month before last, and they ordered some other testing. [facility] Medical History (Updated 04/19/24 @ 22:[address] Mehrdad Norris MD) Lupus Osteoarthritis of right knee Right knee pain Greater trochanteric bursitis of left hip Osteoarthritis of left hip Left hip pain Psoriasis Wears glasses Arthritis Difficulty swallowing Gastric reflux History of cellulitis Bilateral carpal tunnel syndrome Anxiety Degenerative disc disease Fibromyalgia MRSA (methicillin resistant staph aureus) culture positive Hx of intestinal obstruction History of diverticulitis Bipolar 1 disorder Depression Diabetes Asthma PTSD (post-traumatic stress disorder) Home Medications ?Medication ?Instructions ?Recorded ?Last Taken ?Type trazodone 150 mg tablet 150 mg PO QHS anxiety 07/15/21 08/10/23 History albuterol sulfate 90 mcg/actuation 2 puff inhalation Q6H PRN 07/16/21 08/08/23 Rx aerosol inhaler shortness of breath or wheezing #8.5 grams ibuprofen 500 mg PO Q6H PRN PRN Pain 03/06/22 08/11/23 History hydroxyzine HCl 25 mg tablet 25 mg PO TID anxiety 11/04/22 08/12/23 07:30 History cetirizine 10 mg tablet 10 mg PO BID 03/06/23 08/11/23 History fluticasone fur. 200 mcg-umeclid 1 inh inhalation Q24H 04/08/23 08/12/23 07:30 History 62.5 mcg-vilant 25 mcg inhalat.powder (Trelegy Ellipta) lanolin alcohols-mineral 1 applic topical DAILY 04/08/23 08/10/23 History oil-w.petrolatum-ceresin topical cream (Minerin Creme topical) sertraline 50 mg tablet 50 mg PO DAILY 04/08/23 08/11/23 History acetaminophen 650 mg 1,300 mg PO Q12H 06/23/23 08/09/23 History tablet,extended release (Tylenol Arthritis Pain) hydroxyzine HCl 25 mg tablet 50 mg PO QHS 06/23/23 08/11/23 History dapagliflozin propanediol 10 mg 10 mg PO DAILY 10/01/23 Unknown History tablet (Farxiga) omeprazole 40 mg capsule,delayed 40 mg PO BID 10/01/23 Unknown History release triamcinolone acetonide 0.1 % 1 applic topical BID 10/01/23 Unknown History topical cream atorvastatin 20 mg tablet 20 mg PO QHS 10/28/23 Unknown History dicyclomine 20 mg tablet 20 mg PO BID PRN abdominal pain 03/12/24 Unknown Rx #30 tabs gabapentin 100 mg capsule 100 mg PO TID 03/12/24 Unknown History metformin 500 mg tablet 500 mg PO BID 03/12/24 Unknown History ondansetron 4 mg disintegrating 4 mg PO Q8H #20 tabs 03/12/24 Unknown Rx tablet propranolol 20 mg tablet 20 mg PO BID 03/12/24 Unknown History metoclopramide HCl 10 mg tablet 10 mg PO Q6H PRN nausea and 04/19/24 Unknown Rx vomiting #20 tabs Allergy/AdvReac Type Severity Reaction Status Date / Time Tetracyclines Allergy Intermediate Rash Verified 04/19/24 18:06 aminophylline Allergy Swelling Verified 04/19/24 18:06 amphetamine (From Adderall) Allergy Other Verified 04/19/24 18:06 dextroamphetamine (From Allergy Other Verified 04/19/24 18:06 Adderall) dulaglutide (From Trulicity) Allergy Vomiting Verified 04/19/24 18:06 Iodinated Contrast Media (CT) Allergy Swelling Verified 04/19/24 18:06 iodine Allergy Swelling Verified 04/19/24 18:06 povidone-iodine (From Allergy Swelling Verified 04/19/24 18:06 Betadine) shellfish derived Allergy Swelling Verified 04/19/24 18:06 Sulfa (Sulfonamide Allergy Swelling Verified 04/19/24 18:06 Antibiotics) buspirone (From BuSpar) AdvReac Intermediate Other Verified 04/19/24 18:06 allantoin (From Blistex) AdvReac Swelling Verified 04/19/24 18:06 aloe vera (From Blistex) AdvReac Swelling Verified 04/19/24 18:06 camphor (From Blistex) AdvReac Swelling Verified 04/19/24 18:06 chamomile flower (From AdvReac Swelling Verified 04/19/24 18:06 Blistex) dimethicone (From Blistex) AdvReac Swelling Verified 04/19/24 18:06 herbal complex no.57 (From AdvReac Swelling Verified 04/19/24 18:06 Blistex) homosalate (From Blistex) AdvReac Swelling Verified 04/19/24 18:06 menthol (From Blistex) AdvReac Swelling Verified 04/19/24 18:06 meradimate (From Blistex) AdvReac Swelling Verified 04/19/24 18:06 octinoxate (From Blistex) AdvReac Swelling Verified 04/19/24 18:06 octyl salicylate (From AdvReac Swelling Verified 04/19/24 18:06 Blistex) oxybenzone (From Blistex) AdvReac Swelling Verified 04/19/24 18:06 padimate O (From Blistex) AdvReac Swelling Verified 04/19/24 18:06 petrolatum,hydrophilic (From AdvReac Swelling Verified 04/19/24 18:06 Blistex) phenol (From Blistex) AdvReac Swelling Verified 04/19/24 18:06 tetracycline AdvReac Rash Verified 04/19/24 18:06 Family History Father Diabetes Heart disease COPD (chronic obstructive pulmonary disease) Hypertension Mother Diabetes Heart disease COPD (chronic obstructive pulmonary disease) Cancer Sister Heart disease Thyroid disorder Surgical History Hx of colonoscopy History of carpal tunnel surgery Hx of surgical procedure Hx of tooth extraction Hx of breast surgery History of right breast biopsy (~11/2021) History of intestinal surgery History of lumpectomy of right breast Hx of appendectomy Hx of repair of right rotator cuff Hx of bilateral oophorectomy Hx of hysterectomy Social History household members: spouse housing: other details: homeless lives in residential Smoking Status: Never smoker alcohol intake: never substance use type: does not use ROS ROS ED Constitutional Constitutional ED: Reports malaise; Denies chills or fever(s) Eyes Eyes: Denies change in vision or diplopia ENT ENT ED: Denies rhinorrhea or sore throat Cardiovascular Cardiovascular: Denies chest pain or palpitations Respiratory/Chest Respiratory/Chest: Denies cough or dyspnea Gastrointestinal Gastrointestinal: Reports nausea and vomiting; Denies abdominal pain or diarrhea Genitourinary Genitourinary ED: Denies dysuria or hematuria Musculoskeletal Musculoskeletal: Denies back pain or neck pain Integumentary Denies abscess or rash Neurologic Neurologic: Denies headache(s), paresthesias or weakness EXAM Physical Exam Const Vital Signs: 04/19/24 18:04 04/19/24 20:04 04/19/24 22:00 Temperature 96.4 F L Temperature Source Temporal Pulse Rate 122 H 98 Respiratory Rate 16 14 Blood Pressure 146/92 H 170/79 H Blood Pressure Mean 110 109 Pulse Ox 98 97 Oxygen Delivery Method Room Air Room Air Positive well nourished and well developed General Appearance ED: well developed and NAD HEENT Reports moist mucous membranes HEENT Narrative: Edentulous. Angular cheilitis bilaterally mild no erythema. Dry mucous membranes. No sign of gingivitis or bleeding. normocephalic and atraumatic Eyes PERRL and EOMs intact bilaterally Neck full ROM and supple Resp normal respiratory effort and clear to auscultation bilaterally Cardio regular rate, regular rhythm and no murmurs Rate: tachycardic GI non-tender and non-distended Auscultation: normoactive bowel sounds Palpation: soft Back/Spine no CVA tenderness General Back: other FROM Extremity normal to inspection General Extremety ED: Negative for edema, pulses abnormal or tenderness General Extremity: Negative for edema or pulses abnormal Neuro oriented x3, CN's II-XII intact bilaterally and no sensory deficits noted Sensorium / Orientation: awake and alert Motor Exam: strength 5/5 throughout Skin no rashes or lesions noted and no wounds MDM MDM MDM Narrative Medical decision making narrative: I reviewed February GI outpatient encounter. The patient states no one has discussed the possibility of a feeding tube with her nor surgery/definitive treatment of this mass. It may be indeed completely obstructing her esophagus to the point where she cannot eat or drink right now, and if that is the case she may need to be admitted or transferred as I discussed with her. We started with some labs and IV fluids. I reviewed her outpatient EGD. 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 Biopsied. However, and pathology, there are stomach biopsy interpretations, but there is not a resulted biopsy of an esophageal mass. Of the available tissue pathology there is nothing malignant noted. Her labs here look really good. She is borderline prerenal but her electrolytes and renal function are normal. Her liver enzymes are normal as well. I spoke to Dr. Smith gastroenterology concerning all of this. We reviewed together some of her history and he was able to pull up some pictures from her EGD. He opines that these pictures do not represent esophageal varices and the esophageal mass that was in the upper third of the esophagus was 4-5 mm in diameter and not likely causing an obstruction. He recommends trying Reglan and if needed Haldol, but we had already given her Zofran followed by Reglan and this really helped. Patient tolerating oral fluids without difficulty right now and doing well. Given this Dr. Smith recommends placing the scopolamine patch on her for 72 hours which will get her to her follow-up EGD that the patient states is scheduled 3 days from now. She is also given a prescription for Reglan to use as needed should she need something in addition. I confirmed that patient is already on a PPI. She is comfortable with that plan. History & Record Review Additional record(s) reviewed:: Prior outpatient record Lab Data Attestation: I reviewed the patient's lab results. Labs: Laboratory Results - last 24 hr 04/19/24 04/19/24 19:10 20:58 WBC 12.1 H RBC 5.75 H Hgb 15.9 H Hct 49.4 H MCV 85.9 MCH 27.7 MCHC 32.2 RDW Std Deviation 40.8 RDW Coeff of Elsi 13.3 Plt Count 290 MPV 9.2 Immature Gran % (Auto) 3.500 H Neut % (Auto) 67.2 Lymph % (Auto) 14.7 L Gilliam % (Auto) 11.5 H Eos % (Auto) 2.6 Baso % (Auto) 0.5 Absolute Neuts (auto) 8.1 H Absolute Lymphs (auto) 1.78 Nucleated RBC % 0 PT 13.0 INR 1.0 Sodium 140 Potassium 3.6 Chloride 105 Carbon Dioxide 28.0 Anion Gap 7 BUN 15 Creatinine 0.71 Estim Creat Clear Calc 73.05 Est GFR (MDRD) Af Amer 108 Est GFR (MDRD) Non-Af 89 BUN/Creatinine Ratio 21.1 H Glucose 162 H Calcium 8.3 L Total Bilirubin 0.60 Direct Bilirubin 0.16 AST 16 ALT 17 Alkaline Phosphatase 206 H Total Protein 7.7 Albumin 3.7 Globulin 4.0 Management Discussion w/another healthcare provider: Production Sampler (GI doctor friend) Discharge Plan Triage Chief Complaint: Nausea/Vomiting ED Provider: Mehrdad Norris Dx/Rx/DC Orders Clinical Impression: Nausea and vomiting Instructions: ED Vomiting (Adult) Prescriptions: New metoclopramide HCl 10 mg tablet 10 mg PO Q6H PRN (Reason: nausea and vomiting) Qty: 20 0RF Discontinued promethazine 12.5 mg tablet 12.5 mg PO BID PRN PRN (Reason: nausea) No Action hydroxyzine HCl 25 mg tablet 25 mg PO TID Patient Comments: TAKE ONE TABLET BY MOUTH 2-3 TIMES DAILY NEEDED FOR ANXIETY cetirizine 10 mg tablet 10 mg PO BID Patient Comments: TAKE ONE TABLET BY MOUTH EVERY DAY gabapentin 100 mg capsule 100 mg PO TID metformin 500 mg tablet 500 mg PO BID propranolol 20 mg tablet 20 mg PO BID dicyclomine 20 mg tablet 20 mg PO BID PRN (Reason: abdominal pain) Qty: 30 2RF ondansetron 4 mg tablet,disintegrating 4 mg PO Q8H Qty: 20 2RF trazodone 150 mg tablet 150 mg PO QHS Patient Comments: take 1 and 1/2 tablet DAILY AT BEDTIME albuterol sulfate 90 mcg/actuation HFA aerosol inhaler 2 puff inhalation Q6H PRN (Reason: shortness of breath or wheezing) Qty: 8.5 0RF ibuprofen 500 mg PO Q6H PRN PRN (Reason: Pain) Trelegy Ellipta 200-62.5-25 mcg blister with device 1 inh INHALATION Q24H Patient Comments: INHALE 1 PUFF BY MOUTH EVERY DAY sertraline 50 mg tablet 50 mg PO DAILY Patient Comments: TAKE ONE TABLET BY MOUTH EVERY DAY Minerin Creme Cream 1 applic TOPICAL DAILY Patient Comments: apply to lower legs liberally twice daily hydroxyzine HCl 25 mg tablet 50 mg PO QHS acetaminophen [Tylenol Arthritis Pain] 650 mg tablet extended release 1,300 mg PO Q12H atorvastatin 20 mg tablet 20 mg PO QHS omeprazole 40 mg capsule,delayed release(DR/EC) 40 mg PO BID dapagliflozin propanediol [Farxiga] 10 mg tablet 10 mg PO DAILY triamcinolone acetonide 0.1 % cream 1 applic topical BID Primary Care Provider: Taylor Fields Referrals: James Smith DO [Med Staff - Active Staff] - (or Grace as scheduled on ) Taylor Fields, SURFACE WATER MANAGER-C [Primary Care Provider] - Print Language: Hungarian Disposition Disposition: Home, Self Care
[2024-04-19] MEDS: 0.9% Normal Saline (1000mL) 1,000 ML 999 ML IV (19:42)
[2024-04-19 20:04] VITALS: BP 170/79; PULSE 98; O2SAT 97
[2024-04-19 20:05] LABS: Absolute Lymphocyte Count 1.78 X10^3/uL (0.83-4.51); Absolute Neutrophil Count 8.1 X10^3/uL (2.0-7.7); Basophil# 0.06 X10^3/uL; Basophil% 0.5 % (0-1); Eosinophil# 0.32 X10^3/uL; Eosinophils% 2.6 % (0-5); Hematocrit 49.4 % (37-47); Hemoglobin 15.9 g/dL (12.0-15.0); Lymphocyte # 1.78 X10^3/ul (0.83-4.51); Lymphocyte % 14.7 % (19-41); Mean Corp Hgb Conc 32.2 g/dL (32-36); Mean Corpuscular Hgb 27.7 pg (27.0-32.0); Mean Corpuscular Volume 85.9 fL (81-99); Mean Platelet Vol. 9.2 fl (6.2-12.0); Monocyte% 11.5 % (0-10); NRBC Flagged by Analyzer 0 % (0-5); Neutrophil # 8.14 X10^3/uL (2.7-7.7); Neutrophil % 67.2 % (47-70); Platelet Count 290 K/mm3 (150-450); RBC Distribution Width CV 13.3 % (11.6-14.6); RBC Distribution Width SD 40.8 fl (35.1-43.9); Red Blood Count 5.75 M/mm3 (4.2-5.4); White Blood Count 12.1 K/mm3 (4.4-11.0)
[2024-04-19 20:36] LABS: AST(SGOT) 16 U/L (15-37); Alanine Aminotransfer ALT/SGPT 17 U/L (13-56); Albumin, Serum 3.7 g/dL (3.2-5.0); Alkaline Phosphatase 206 U/L (45-117); Bilirubin, Direct 0.16 mg/dL (0.00-0.30); Protein, Total 7.7 g/dL (6.4-8.2)
[2024-04-19] MEDS: Ondansetron 4 MG/2 ML Vial IV (20:53)
[2024-04-19 21:19] LABS: Anion Gap 7 (5-15); BUN 15 mg/dL (7-18); BUN/Creat Ratio 21.1 RATIO (10-20); Calcium,Total 8.3 mg/dL (8.5-10.1); Chloride 105 mmol/L (98-107); Creatinine, Serum 0.71 mg/dL (0.55-1.02); EST Glomerular Filtration Rate 89 mL/min (>60); Est Glom Filt Rate - Afr Amer 108 mL/min (>60); Estimated Creatinine Clearance 73.05 ml/min; Glucose 162 mg/dL (74-106); Potassium 3.6 mmol/L (3.5-5.1); Sodium Level 140 mmol/L (136-145)
[2024-04-19] MEDS: Metoclopramide 10 MG/2 ML Vial 5 MG IV (21:41)
[2024-04-19 22:00] VITALS: RESP 14
[2024-04-19] MEDS: Scopolamine 1mg/72hr Patch 1 PATCH TD (22:17)
[2024-04-19 22:21] VITALS: BP 170/79; PULSE 98; RESP 14; TEMP 35.8; O2SAT 97
== END 2024-04-19 22:22 | disposition home or self-care (01) ==
PROVIDERS: Emergency Provider Emergency Medicine; PCP Nurse Practitioner Family; Visit Provider Emergency Medicine
DX: R11.2 Nausea with vomiting, unspecified (principal); E11.9 Type 2 diabetes mellitus without complications; Z59.01 Sheltered homelessness; Z79.84 Long term (current) use of oral hypoglycemic drugs
CPT/HCPCS: 80048; 80076; 85025; 85610; 96361; 96374; 96375; 99282; A4216; J2405

== ENCOUNTER 2024-04-22 05:33 | Day surgery (SDC) | payer MEDICAID, SELFPAY ==
[2024-04-22] VITALS (7 sets, daily range): BP systolic 99–111; BP diastolic 66–86; PULSE 77–87; RESP 16–18; TEMP 36.2–36.7; O2SAT 93–100; BMI 23.8
--- NOTE | 2024-04-22 06:26 | PRE.ANES_ITS ---
ASA Classification* ASA Classification ASA Classification: 3 Assessment & Plan Anesthesia* Anesthesia Assessment Anesthesia Assessment: Discussed sedation and/or anesthesia options, risks, benefits, and alternatives with patient/parents/legal guardian/POA. Questions invited. The patient/parents/legal guardian/POA seems to understand and agrees to proceed with anesthesia plan. Reviewed the physical assessment, medical history, allergy history and patient home medications list prior to surgery/procedure/anesthetic and documented any changes. Performed airway and anesthesia risk assessments. Anesthesia Type Anesthesia Type: MAC History Source History Obtained from:: Patient and Chart Anesthesia Focused Assessment* Temperature: 97.1 F Pulse Rate: 87 Blood Pressure: 107/84 Respiratory Rate: 16 Pulse Ox: 100 Oxygen Delivery Method: Room Air Airway Assessment Mouth opens: >3 cm Mallampati Score: III Teeth Condition: Missing (Patient is edentulous.) Neck Range of motion (ROM): Limited ROM (Somewhat decreased extension) Focused Labs Anesthesia Preop lab: CBC WBC 12.1 K/mm3 (4.4-11.0) H 04/19/24 19:10 RBC 5.75 M/mm3 (4.2-5.4) H 04/19/24 19:10 Hgb 15.9 g/dL (12.0-15.0) H 04/19/24 19:10 Hct 49.4 % (37-47) H 04/19/24 19:10 Plt Count 290 K/mm3 (150-450) 04/19/24 19:10 CHEMISTRY Potassium 3.6 mmol/L (3.5-5.1) 04/19/24 20:58 Sodium 140 mmol/L (136-145) 04/19/24 20:58 Magnesium 2.1 mg/dL (1.6-2.6) 03/07/22 06:30 Phosphorus 3.4 mg/dL (2.5-4.9) 03/07/22 06:30 BUN 15 mg/dL (7-18) 04/19/24 20:58 Creatinine 0.71 mg/dL (0.55-1.02) 04/19/24 20:58 Glucose 162 mg/dL (74-106) H 04/19/24 20:58 POC Glucose 182 mg/dL (74-106) H 04/14/24 14:45 TSH 0.489 uIU/mL (0.358-3.740) 03/25/24 08:02 COAG PT 13.0 SECONDS (11.7-14.9) 04/19/24 19:10 Pre-Assessment Diagnosis/Proposed Procedure Planned Operative Procedure(s): EGD Anesthesia History Anesthesia History - group exercise manager: Anesthesia History - group exercise manager Hx Hospitalization No 04/19/24 09:36 Any Problems With Anesthesia No 04/19/24 09:36 Cholinesterase deficiency No 04/19/24 09:36 You/Your Family Experience No 04/19/24 09:36 fever (hyperthermia) with Relationship Recent Exposure to Contagious No 04/22/24 05:59 Disease Does patient have nerve No 04/19/24 09:36 stimulator Patient instructed to have device shut off --Does patient have Pacemaker No 04/22/24 05:59 or ICD? When Was Last Pacemaker Check QUESTION #4 FULL TEXT: You/Your Family Experience fever (hyperthermia) with Anesthesia Last Oral Intake Last Oral intake: Last Oral Intake NPO since Meds taken in AM with sips of water? Meds patient instructed to take am of surgery Any additional information?: Yes NPO since: 00:00 Meds taken in AM with sips of water?: Yes PONV PONV - group exercise manager: PONV - group exercise manager Female Yes 04/19/24 09:36 HX of Motion Sickness Yes 04/19/24 09:36 HX of N/V After Surgery No 04/19/24 09:36 Non-Smoker Yes 04/19/24 09:36 Duration of Surgery greater No 04/19/24 09:36 than 60 minutes Number of Risk Factors 3 04/19/24 09:36 PONV Score Moderate Risk 04/19/24 09:36 Height & Weight Height & Weight: Anesthesia: Height & Weight Height 5 ft 2 in 04/22/24 05:59 Weight: 59 kg 04/22/24 05:59 Body Mass Index (BMI) 23.8 04/22/24 05:59 Respiratory Assessment Respiratory Assessment - group exercise manager: Respiratory Tract Infection Hx - group exercise manager Hx Respiratory Tract Infection No 04/19/24 09:36 STOP Sleep Apnea STOP Sleep Apnea - group exercise manager: STOP Sleep Apnea - group exercise manager Hx Hypertension No 04/19/24 09:36 Hx Sleep Apnea No 04/19/24 09:36 CPAP BIPAP Do you snore loudly (louder No 04/19/24 09:36 than talking or can be heard Do you often feel tired/ No 04/19/24 09:36 fatigued/ sleepy during daytime? Has anyone observed you stop No 04/19/24 09:36 breathing during sleep? STOP Results Negative 04/19/24 09:36 QUESTION #5 FULL TEXT : Do you snore loudly (louder than talking or can be heard through closed doors)? Tobacco Use History Tobacco Use History - group exercise manager: Tobacco Use History - group exercise manager Tobacco Use Smoking Status Never smoker 04/19/24 19:06 Hx Tobacco Use No 04/19/24 09:36 Years Smoking Packs Smoked per Day Smoking Cessation Date was within the last 15 years Hx Smoking Cessation Date Hx Smoking Cessation No 04/19/24 09:36 Counseling Hematologic Medial History Hematologic Hx - group exercise manager: Hematologic Medical Hx - newsperson Hx of Blood Transfusion No 04/19/24 09:36 Hx of Transfusion in last 3 No 04/19/24 09:36 Months Date of Last Transfusion (if within last 3 months) Ever experience any problems No 04/19/24 09:36 with transfusion(s)? Specify any problems Hx of Preganancy in last 3 No 04/19/24 09:36 Months Nurse Filling Out Transfusion VCHRISTIN 04/19/24 09:36 & Questions: Date: 04/19/24 04/19/24 09:36 Time: 09:37 04/19/24 09:36 Patient unable to answer at this time (ie. confused, unrespo /Reproduction History /Reproductive History - group exercise manager: /Reproductive Hx- group exercise manager Hx Now Gestational Age (in weeks): EDC: Hx Hx Para Hx Section SAB PFSH Medical History Lupus Osteoarthritis of right knee Right knee pain Greater trochanteric bursitis of left hip Osteoarthritis of left hip Left hip pain Psoriasis Wears glasses Arthritis Difficulty swallowing Gastric reflux History of cellulitis Bilateral carpal tunnel syndrome Anxiety Degenerative disc disease Fibromyalgia MRSA (methicillin resistant staph aureus) culture positive Hx of intestinal obstruction History of diverticulitis Bipolar 1 disorder Depression Diabetes Asthma PTSD (post-traumatic stress disorder) Home Medications ?Medication ?Instructions ?Recorded ?Last Taken ?Type trazodone 150 mg tablet 150 mg PO QHS anxiety 07/15/21 08/10/23 History albuterol sulfate 90 mcg/actuation 2 puff inhalation Q6H PRN 07/16/21 08/08/23 Rx aerosol inhaler shortness of breath or wheezing #8.5 grams ibuprofen 500 mg PO Q6H PRN PRN Pain 03/06/22 08/11/23 History hydroxyzine HCl 25 mg tablet 25 mg PO TID anxiety 11/04/22 04/22/24 History cetirizine 10 mg tablet 10 mg PO BID 03/06/23 08/11/23 History fluticasone fur. 200 mcg-umeclid 1 inh inhalation Q24H 04/08/23 04/22/24 History 62.5 mcg-vilant 25 mcg inhalat.powder (Trelegy Ellipta) lanolin alcohols-mineral 1 applic topical DAILY 04/08/23 08/10/23 History oil-w.petrolatum-ceresin topical cream (Minerin Creme topical) sertraline 50 mg tablet 50 mg PO DAILY 04/08/23 08/11/23 History acetaminophen 650 mg 1,300 mg PO Q12H 06/23/23 08/09/23 History tablet,extended release (Tylenol Arthritis Pain) hydroxyzine HCl 25 mg tablet 50 mg PO QHS 06/23/23 08/11/23 History dapagliflozin propanediol 10 mg 10 mg PO DAILY 10/01/23 Unknown History tablet (Farxiga) omeprazole 40 mg capsule,delayed 40 mg PO BID 10/01/23 Unknown History release triamcinolone acetonide 0.1 % 1 applic topical BID 10/01/23 Unknown History topical cream atorvastatin 20 mg tablet 20 mg PO QHS 10/28/23 Unknown History dicyclomine 20 mg tablet 20 mg PO BID PRN abdominal pain 03/12/24 Unknown Rx #30 tabs gabapentin 100 mg capsule 100 mg PO TID 03/12/24 04/22/24 History metformin 500 mg tablet 500 mg PO BID 03/12/24 Unknown History ondansetron 4 mg disintegrating 4 mg PO Q8H #20 tabs 03/12/24 Unknown Rx tablet propranolol 20 mg tablet 20 mg PO BID 03/12/24 04/22/24 History metoclopramide HCl 10 mg tablet 10 mg PO Q6H PRN nausea and 04/19/24 Unknown Rx vomiting #20 tabs Allergy/AdvReac Type Severity Reaction Status Date / Time Tetracyclines Allergy Intermediate Rash Verified 04/22/24 05:55 aminophylline Allergy Swelling Verified 04/22/24 05:55 amphetamine (From Adderall) Allergy Other Verified 04/22/24 05:55 dextroamphetamine (From Allergy Other Verified 04/22/24 05:55 Adderall) dulaglutide (From Trulicity) Allergy Vomiting Verified 04/19/24 18:06 Iodinated Contrast Media (CT) Allergy Swelling Verified 04/22/24 05:55 iodine Allergy Swelling Verified 04/22/24 05:55 povidone-iodine (From Allergy Swelling Verified 04/22/24 05:55 Betadine) shellfish derived Allergy Swelling Verified 04/22/24 05:55 Sulfa (Sulfonamide Allergy Swelling Verified 04/22/24 05:55 Antibiotics) buspirone (From BuSpar) AdvReac Intermediate Other Verified 04/22/24 05:55 allantoin (From Blistex) AdvReac Swelling Verified 04/22/24 05:55 aloe vera (From Blistex) AdvReac Swelling Verified 04/22/24 05:55 camphor (From Blistex) AdvReac Swelling Verified 04/22/24 05:55 chamomile flower (From AdvReac Swelling Verified 04/22/24 05:55 Blistex) dimethicone (From Blistex) AdvReac Swelling Verified 04/22/24 05:55 herbal complex no.57 (From AdvReac Swelling Verified 04/22/24 05:55 Blistex) homosalate (From Blistex) AdvReac Swelling Verified 04/22/24 05:55 menthol (From Blistex) AdvReac Swelling Verified 04/22/24 05:55 meradimate (From Blistex) AdvReac Swelling Verified 04/22/24 05:55 octinoxate (From Blistex) AdvReac Swelling Verified 04/22/24 05:55 octyl salicylate (From AdvReac Swelling Verified 04/22/24 05:55 Blistex) oxybenzone (From Blistex) AdvReac Swelling Verified 04/22/24 05:55 padimate O (From Blistex) AdvReac Swelling Verified 04/22/24 05:55 petrolatum,hydrophilic (From AdvReac Swelling Verified 04/22/24 05:55 Blistex) phenol (From Blistex) AdvReac Swelling Verified 04/22/24 05:55 tetracycline AdvReac Rash Verified 04/22/24 05:55 Family History Father Diabetes Heart disease COPD (chronic obstructive pulmonary disease) Hypertension Mother Diabetes Heart disease COPD (chronic obstructive pulmonary disease) Cancer Sister Heart disease Thyroid disorder Surgical History Hx of colonoscopy History of carpal tunnel surgery Hx of surgical procedure Hx of tooth extraction Hx of breast surgery History of right breast biopsy (~11/2021) History of intestinal surgery History of lumpectomy of right breast Hx of appendectomy Hx of repair of right rotator cuff Hx of bilateral oophorectomy Hx of hysterectomy Social History household members: spouse housing: other details: homeless lives in assisted Smoking Status: Never smoker alcohol intake: never substance use type: does not use Review of Systems (Anesthesia) ROS Narrative System reviewed and no additional complaints, except as documented.
--- NOTE | 2024-04-22 06:30 | EGD_PTH ---
PATIENT: LEAH JERRY LOC: EN U#:[id number] AGE/SX: 58/F ROOM: RE04/22/[address]: Dr. James Smith DO : 1965 BED: DIS: 04/22/2024 SPEC #: [id number] RECD: 04/22/24 07:52 STATUS: KANA ALEXYS #: [id number] IRMA: 04/22/24 06:[address]: James Smith DEPT: SURGICAL PATHOLOGY RECD BY: Ira Hernandez ENTERED: 04/22/24 10:09 SP TYPE: EGD BIOPSY OT DR: Taylor Fields, [facility], NIGHT WORKER-C Tissues: A - Esophagus, NOS B - Duodenum, NOS C - Gastric mucous membrane Procedures: Special Stain Group I Surgery Specimen Level IV GMS Stain (control) HEADER OPERATION: EGD with biopsy PRE-OP DIAGNOSIS: Esophageal varices, nausea/vomiting, alternating constipation and diarrhea TISSUE SUBMITTED: A- Random esophagus biopsy, B- Duodenum biopsy, C- Gastric antrum biopsy MICROSCOPIC DIAGNOSIS A. Esophagus, random biopsy: Ulceration with associated fibrinopurulent exudate and acute esophagitis. Negative for fungal organisms. See comment. B. Duodenum, biopsy: No pathologic change. C. Gastric antrum, biopsy: Chronic gastritis. See comment. 04/23/2024 COMMENT A. GMS stain with matched control was used in the evaluation of this case. C. The results of immunohistochemistry for Helicobacter pylori will be reported separately ([id number]). MICROSCOPIC DESCRIPTION Slides are reviewed. GROSS DESCRIPTION A. Received in fixative is one container labeled with the patient's name and designated Random esophagus biopsy. The specimen consists of multiple irregular fragments of light christian soft tissue that in aggregate measure 1.0 x 0.3 x 0.1 cm. The specimen is totally submitted in one cassette. B. Received in fixative is one container labeled with the patient's name and designated Duodenum biopsy. The specimen consists of two irregular fragments of light christian soft tissue that in aggregate measure 0.6 x 0.6 x 0.1 cm. The specimen is totally submitted in one cassette. C. Received in fixative is one container labeled with the patient's name and designated Gastric antrum biopsy. The specimen consists of two irregular fragments of light christian soft tissue that in aggregate measure 0.6 x 0.5 x 0.1 cm. The specimen is totally submitted in one cassette. 04/22/2024 TC:3 CPT:91273q4,61230,63907
--- NOTE | 2024-04-22 06:30 | IMM_PTH ---
PATIENT: LEAH JERRY LOC: EN U#:[id number] AGE/SX: 58/F ROOM: RE04/22/[address]: Dr. James Smith DO : 1965 BED: DIS: 04/22/2024 SPEC #: [id number] RECD: 04/22/24 09:59 STATUS: KANA REQ #: [id number] IRMA: 04/22/24 06:[address]: James Smith DEPT: IMMUNOHISTOCHEMISTRY RECD BY: Adama Olivarez ENTERED: 04/22/24 09:59 SP TYPE: IMMUNO OTHR DR: Taylor Fields, [facility], DRIER ATTENDANT-C Tissues: C - Gastric mucous membrane Procedures: H Pylori (initial) PHYSICIAN & INSTITUTION [place] [id number] SPECIMEN INFORMATION: Tissue Source: C- Gastric antrum biopsy Clinical Info: Esophageal varices, nausea/vomiting, alternating constipation and diarrhea Specimen Number: [id number] CPT code: 63882 METHODOLOGY: Deparaffinized sections of prefer/formalin-fixed tissue or PAP/DQ stained slides are incubated with monoclonal/polyclonal antibodies/oligonucleotide probes. Localization is made via biotin free immunoperoxidase method. Appropriate controls are performed and reacted as expected. Results on target cell population are indicated in the following table: RESULTS: ANTIBODY / CLONE RESULT Block C H Pylori (polyclonal) negative These tests were developed and their performance characteristics determined by [facility]. They may not have been cleared or approved by the U.S. Food and Drug Administration. The FDA has determined that such clearance or approval is not necessary. The above immunohistochemical/dualISH markers are ordered and reviewed by the Pathologist. INTERPRETATION: C. Gastric antrum, biopsy: Negative for Helicobacter pylori organisms. AM 04/23/2024
--- NOTE | 2024-04-22 06:40 | HP.PCM_ITS ---
History and Physical Date of Admission: 04/22/24 LEAH JERRY, is a 58 F who presents to the office today for establishment with [facility]. Pt has a PMHx of diverticulitis, GERD, and carpal tunnel syndrome. She is here today for evaluation of nausea and vomiting. In 2023 she was having daily nausea with vomiting up to 3x per day. She had both lower and upper endoscopy which showed UGI inflammation, varices and a benign tumor This lasted until October when they took her off Trulicity and then it resolved. The nausea went away but has recently come back with vomiting around 3x per day. She is able to eat and does not feel like she has had weight loss. She feels like the food is getting stuck when she eats. She is not diagnosed with cirrhosis and has never had work up. She does not drink alcohol. She smokes weed sometimes. She has struggled with constipation alternating with diarrhea for a long time now. She has hx of bowel obstructions. She does not take daily medications for her bowels. She typically has a bowel movement every 4 days that is difficult to pass. EGD 08.12.23;- No gross lesions in the entire examined duodenum. No specimens collected. - Erythematous mucosa in the antrum. Biopsied. - Congestive gastropathy. Biopsied. - Z-line regular, 36 cm from the incisors. Biopsied. - Medium-sized hiatal hernia. No specimens collected. 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 Biopsied. - Grade II esophageal varices. No specimens collected Colonoscopy 08.12.23; - Perianal skin tags found on perianal exam. - Diverticulosis in the entire examined colon. No specimens collected. - One 3 mm polyp in the proximal sigmoid colon. Biopsied. ROS Const Constitutional: Positive for fatigue, headache(s), weakness and weight change (weight gain); No fever(s) Eyes Eyes: No change in vision ENT ENT: Positive for headache(s) and difficulty swallowing Resp Respiratory: No cough or shortness of breath Cardio Cardiology: No chest pain at rest, chest pain with exertion, shortness of breath or dyspnea on exertion Gastro GI: Positive for abdominal pain, bloating, constipation, diarrhea, heartburn, difficulty swallowing, excessive flatus, nausea/dyspepsia and vomiting; No belching, change in bowel habits, change in stool character, coffee ground emesis, cramping, feeling full early, incontinent of stools, Vomiting blood/hematemesis, Blood in stool, loose stools, Black,tarry stools, pain with swallowing or other Genitourinary-Female: No difficulty urinating or burning urination Musc Musculoskeletal: Positive for joint pain, back pain, joint swelling, muscle cramps, muscle weakness, numbness, stiffness, tingling, Arthritis and sciatica Skin Skin: Positive for dry skin, itchy eyes and rash; No yellowing of the eye Neuro Neurology: Positive for weakness, headache(s), numbness, tingling, tremor(s) and other (vertigo) Psych Psychiatric: Positive for anxiety, Positive for depression and Positive for obsessions/compulsions Endo Endocrine: Positive for fatigue and weight change (weight gain) Aller/Imm Allergy/Immunologic: Positive for itchy eyes Khris/Lymp Hematologic/Lymphatic: Positive for easy bleeding and easy bruising Exam Const General: cooperative and comfortable Nutritional Appearance: average body habitus and well nourished [facility] Head: normal to inspection Ears: hearing grossly normal bilaterally Nose: external nose normal Face and sinus: normal facial exam Teeth and gingiva: edentulous Eyes General: appearance normal, both eyes and all related structures Neck Neck: normal visual inspection Chest Chest palpation & inspection: normal inspection of the chest Resp Effort & Inspection: normal respiratory effort Auscultation: Bilateral: Clear to Auscultation Cardio Palpation: normal PMI Rate: regular rate Rhythm: regular rhythm GI Inspection: normal to inspection Auscultation: normal bowel sounds Percussion: normal to percussion Palpation: no hepatosplenomegaly Skin General: no rashes or lesions noted Neuro General: patient alert Extrem General: normal to inspection Psych Affect: normal affect Assessment and Plan Assessment and Plan (1) Esophageal varices: Status: Acute Plan: This is a new pt here today for establishment with [facility]. She has had issues with n/v off and on since Jun 2023. Discontinuing Trulicity helped but her symptoms have come back. She underwent EGD in Jun 2023 with esophageal varices, inflammation and a benign tumor. She will undergo another EGD to assess her GI tract. We may need to order a GES in the future Pt has never had a diagnosis of cirrhosis or work up for this. She did have esophageal varices and I discussed that this is typically caused by cirrhosis. She does not have a hx of drinking. I ordered liver work up and liver elastography. She has alternating constipation and diarrhea for years now. She has not tried taking any daily medications. She is unwilling to try miralax daily so we I recommended colace. -EGD -Liver elastography -Liver work up -Start colace -Prescribed zofran -f/u in 3 months (2) Nausea & vomiting: Status: Acute (3) Alternating constipation and diarrhea: Status: Acute Orders: Orders ABD Limited w/ Elastography Today I85.00 - Esophageal varices without bleeding CBC W/Diff, Automated Today I85.00 - Esophageal varices without bleeding Comprehensive Metabolic Profil Today I85.00 - Esophageal varices without bleeding Bilirubin, Direct Today I85.00 - Esophageal varices without bleeding Prothrombin Time w/INR Today I85.00 - Esophageal varices without bleeding Partial Thromboplast Time Today I85.00 - Esophageal varices without bleeding AFP, Tumor Marker Today I85.00 - Esophageal varices without bleeding Ammonia Today I85.00 - Esophageal varices without bleeding ATIF Comprehensive Panel Today I85.00 - Esophageal varices without bleeding ANCA Today I85.00 - Esophageal varices without bleeding Angiotensin Convert Enzyme Today I85.00 - Esophageal varices without bleeding Anti-Mitochondrial AB Today I85.00 - Esophageal varices without bleeding Anti-Smooth Muscle ABS Today I85.00 - Esophageal varices without bleeding Haptoglobin Today I85.00 - Esophageal varices without bleeding Hemoglobin A1c Today I85.00 - Esophageal varices without bleeding Ferritin Today I85.00 - Esophageal varices without bleeding Erythrocyte Sed Rate Today I85.00 - Esophageal varices without bleeding CRP Today I85.00 - Esophageal varices without bleeding Copper, Serum or Plasma Today I85.00 - Esophageal varices without bleeding Ceruloplasmin Today I85.00 - Esophageal varices without bleeding Hepatitis Panel Acute Today I85.00 - Esophageal varices without bleeding Lipid Profile Today I85.00 - Esophageal varices without bleeding Triglycerides Today I85.00 - Esophageal varices without bleeding Transferrin Today I85.00 - Esophageal varices without bleeding LDH Today I85.00 - Esophageal varices without bleeding HIV - [facility] Today I85.00 - Esophageal varices without bleeding Iron Binding Capacity,Total Today I85.00 - Esophageal varices without bleeding Medications: New dicyclomine 20 mg PO BID PRN 30 tabs 2RF abdominal pain ondansetron 4 mg PO Q8H 20 tabs 2RF I have examined the patient and the H&P has been reviewed. There are no clinical changes since date of exam.
--- NOTE | 2024-04-22 07:08 | PCM.POST.ANE ---
Anesthesia: Postop Eval I Current Vital Signs Temperature: 98.1 F Pulse Rate: 81 Blood Pressure: 99/68 Respiratory Rate: 16 Pulse Ox: 94 Oxygen Delivery Method: Room Air Assessment Airway patent: Yes Spontaneous unlabored respirations: Yes Mental status: Asleep nausea: No Vomiting: No Anesthesia Complication: No Fluid Hydration Crystalloid volume administer (ml): 30 Total IV fluid infused: 30 Progress Note Anesthesia document: Postop Eval 1 completed: Yes
--- NOTE | 2024-04-22 07:10 | OP.CCLET_ITS ---
04/22/2024 Taylor Fields [facility], Plug Machine Operator-c Re : Upper GI endoscopy procedure for Rose Dvaid Dear Donnie This procedure was performed on April. My impressions and recommendations are as follows: Impressions : - LA Grade C reflux esophagitis with no bleeding. Biopsied. - Enlarged gastric folds. Biopsied. - Erythematous duodenopathy. Biopsied. Recommendations : - Discharge patient to home. - Resume previous diet. - Continue present medications. - Await pathology results. - check Gastrin level - TONY + serum protein electrophoresis - Gastric emptying study My findings are described in the full procedure note, which is enclosed. If I can be of further assistance, please feel free to contact me at . Sincerely, James Smtih, 04/22/2024 7:09:53 AM This report has been signed electronically.
--- NOTE | 2024-04-22 07:10 | OP.EGD_ITS ---
Patient Name: Rose David Procedure Date: 04/22/2024 6:34 AM Date of : 1965 Age: 58 Procedure: Upper GI endoscopy Indications: Dyspepsia, Indigestion, Heartburn, Failure to respond to medical treatment Providers: James Smith DO Referring MD: Taylor Fields [facility], Marketing Professional-c Medicines: Monitored Anesthesia Care Patient Profile: This is a 58 year old female. Refer to note in patient chart for documentation of history and physical. Patient has symptoms of chronic nausea, chronic regurgitation and chronic vomiting. Complications: No immediate complications. Procedure: Pre-Anesthesia Assessment: - Prior to the procedure, a History and Physical was performed, and patient medications and allergies were reviewed. The patient is competent. The risks and benefits of the procedure and the sedation options and risks were discussed with the patient. All questions were answered and informed consent was obtained. Patient identification and proposed procedure were verified by the physician in the pre-procedure area. Mental Status Examination: alert and oriented. Airway Examination: normal oropharyngeal airway and neck mobility. Respiratory Examination: clear to auscultation. CV Examination: normal. Prophylactic Antibiotics: The patient does not require prophylactic antibiotics. Prior Anticoagulants: The patient has taken no anticoagulant or antiplatelet agents. ASA Grade Assessment: II - A patient with mild systemic disease. After reviewing the risks and benefits, the patient was deemed in satisfactory condition to undergo the procedure. The anesthesia plan was to use monitored anesthesia care (MAC). Immediately prior to administration of medications, the patient was re-assessed for adequacy to receive sedatives. The heart rate, respiratory rate, oxygen saturations, blood pressure, adequacy of pulmonary ventilation, and response to care were monitored throughout the procedure. The physical status of the patient was re-assessed after the procedure. After obtaining informed consent, the endoscope was passed under direct vision. Throughout the procedure, the patient's blood pressure, pulse, and oxygen saturations were monitored continuously. The Endoscope was introduced through the mouth, and advanced to the second part of duodenum. The upper GI endoscopy was accomplished without difficulty. The patient tolerated the procedure well. Scope In: 6:55:48 AM Scope Out: 7:00:51 AM Total Procedure Duration Time 0 hours 5 minutes 3 seconds Findings: LA Grade C (one or more mucosal breaks continuous between tops of 2 or more mucosal folds, less than 75% circumference) esophagitis with no bleeding was found 34 to 40 cm from the incisors. Biopsies were taken with a cold forceps for histology. Verification of patient identification for the specimen was done. Estimated blood loss was minimal. Diffuse prominent gastric folds were found in the gastric body. Biopsies were taken with a cold forceps for histology. Verification of patient identification for the specimen was done. Estimated blood loss was minimal. Biopsies were taken with a cold forceps for Helicobacter pylori testing. Verification of patient identification for the specimen was done. Estimated blood loss was minimal. Patchy mildly erythematous mucosa without active bleeding and with no stigmata of bleeding was found in the first portion of the duodenum. Biopsies were taken with a cold forceps for histology. Verification of patient identification for the specimen was done. Estimated blood loss was minimal. Impression: - LA Grade C reflux esophagitis with no bleeding. Biopsied. - Enlarged gastric folds. Biopsied. - Erythematous duodenopathy. Biopsied. Recommendation: - Discharge patient to home. - Resume previous diet. - Continue present medications. - Await pathology results. - check Gastrin level - TONY + serum protein electrophoresis - Gastric emptying study Procedure Code(s): --- Professional --- 91725, Esophagogastroduodenoscopy, flexible, transoral; with biopsy, single or multiple CPT copyright 2021 [employer]. All rights reserved. The codes documented in this report are preliminary and upon sprinkler repair technician review may be revised to meet current compliance requirements. James Smith DO 04/22/2024 7:09:53 AM This report has been signed electronically. Number of Addenda: 0 Note Initiated On: 04/22/2024 6:34 AM
--- NOTE | 2024-04-22 07:16 | PCM.POSTANE2 ---
Anesthesia Postop Eval I Sum Postop Eval Completion status Anesthesia document: Postop Eval 1 completed: Yes Anesthesia Postop Eval I Summary Anesthesia Postop Eval I Summary: Anesthesia Postop Eval I: Assessment Summary Airway patent Yes 04/22/24 07:09 [email or web address] Spontaneous unlabored Yes 04/22/24 07:09 [email or web address] respirations Mental status Asleep 04/22/24 07:09 [email or web address] nausea No 04/22/24 07:09 [email or web address] Vomiting No 04/22/24 07:09 [email or web address] Anesthesia Postop Eval I: Fluid Summary Crystalloid volume administer 30 04/22/24 07:09 [email or web address] (ml) Colloids volume administered ( ml) Blood Product volume administered (ml) Total IV fluid infused 30 04/22/24 07:09 [email or web address] Anesthesia Postop Eval I: Summary Notes Anesthesia Complication No 04/22/24 07:09 [email or web address] Anesthesia Complication Comment: Post-operative progress note Anesthesia: Postop Eval II Evaluation Mental status: Awake Pain Level: 0 nausea: No Vomiting: No
[2024-04-22 11:14] LABS: Bedside Glucose 251 mg/dL (74-106)
== END 2024-04-22 08:03 | disposition home or self-care (01) ==
LOC: EN 05:33 → AC 05:34
PROVIDERS: PCP Nurse Practitioner Family; Referring Provider Nurse Practitioner Family; Visit Provider Internal Medicine Gastroenterology
PROC: 0DJ08ZZ Inspection of Upper Intestinal Tract, Via Natural or Artificial Opening Endoscopic (ICD-10-PCS; CPT 43235; principal; 2024-04-22 06:25)
DX: K21.00 Gastro-esophageal reflux disease with esophagitis, without bleeding (principal); I85.00 Esophageal varices without bleeding; E11.9 Type 2 diabetes mellitus without complications; K29.50 Unspecified chronic gastritis without bleeding; K31.89 Other diseases of stomach and duodenum; K59.00 Constipation, unspecified; R19.7 Diarrhea, unspecified; Z59.01 Sheltered homelessness; Z79.84 Long term (current) use of oral hypoglycemic drugs; Z79.899 Other long term (current) drug therapy
CPT/HCPCS: 43239; 82962; 88305; 88312; 88342; A4216; J2405

== ENCOUNTER → 2024-05-11 | Outpatient (CLI) | payer MEDICAID, SELFPAY ==
--- NOTE | 2024-05-11 14:08 | BD_ITS ---
STUDY: DUAL ENERGY X-RAY ABSORPTIOMETRY / DXA REASON FOR EXAM: Female, 58 years old. Postmenopausal screening TECHNIQUE: Bone Mineral Density (BMD) measurements of lumbar spine and bilateral hips were obtained. COMPARISON: None. FINDINGS: Lumbar Spine (L1-L4): g/cm2 (0.923) / T-score (-1.1) / Z-score (0.3) Left Femur Total: g/cm2 (0.739) / T-score (-1.7) / Z-score (-0.7) Left Femoral Neck: g/cm2 (0.614) / T-score (-2.1) / Z-score (-0.8) Right Femur Total: g/cm2 (0.852) / T-score (-0.7) / Z-score (0.2) Right Femoral Neck: g/cm2 (0.663) / T-score (-1.7) / Z-score (-0.4) BD/Dexa Bone Density Study IMPRESSION: The patient is considered osteopenic as outlined below according to World Len Organization (WHO) criteria with a moderate fracture risk. 10 year fracture risk: Major osteoporotic fracture 14%, hip fracture 1.5% Reference Information: The T-score is the number of standard deviations above or below the standard which is normal for young adults at their peak bone mineral density. The World Health Organization (WHO) interprets the T-scores as follows: Above -1 Normal bone density Between -1 and -2.5 Osteopenia Equal to / or below -2.5 Osteoporosis As a practical clinical guideline, osteopenia may be graded as follows: Mild -1 through -1.5 Moderate -1.6 through -2.0 Severe -2.1 through -2.4 The Z-score is the number of standard deviations above or below age-matched controls. A Z-score of less than -1.5 would be considered abnormal. References: 1. NIH Osteoporosis and Related Bone Diseases www osteo.org 2. International Society for Clinical Densitometry www iscd.org 3. National Osteoporosis Foundation www nof.org Electronically Signed: Addison Omalley MD at 18:06 EST ,
== END | disposition home or self-care (01) ==
LOC: OPBD 14:06
PROVIDERS: PCP Nurse Practitioner Family; Referring Provider Nurse Practitioner Family; Visit Provider Nurse Practitioner Family
DX: Z13.820 Encounter for screening for osteoporosis (principal); Z78.0 Asymptomatic menopausal state
CPT/HCPCS: 77080

== ENCOUNTER → 2024-05-26 | Outpatient (CLI) | payer MEDICAID, SELFPAY ==
--- NOTE | 2024-05-26 11:30 | RAD_ITS ---
STUDY: X-RAY - RIGHT KNEE REASON FOR EXAM: Female, 58 years old. PAIN TECHNIQUE: 3 views of the right knee. COMPARISON: None. FINDINGS: Normal visualized distal femur. Normal visualized proximal tibia and fibula. Normal proximal tibiofibular articulation. There is no demonstrated fracture. There is mild degenerative arthrosis of the medial femorotibial compartment. Normal lateral femorotibial compartment. Normal patellofemoral articulation. There is a small joint effusion. There is prepatellar soft tissue swelling. RAD/Knee 3 Views IMPRESSION: Of mild degenerative arthrosis of the medial femorotibial compartment. Small joint effusion. Prepatellar soft tissue swelling. Electronically Signed: Hugo Arndt MD at 13:11 EST ,
--- NOTE | 2024-05-26 11:30 | RAD_ITS ---
STUDY: X-RAY - RIGHT WRIST REASON FOR EXAM: Female, 58 years old. PAIN TECHNIQUE: 2 views of the right wrist were obtained. COMPARISON: None. FINDINGS: Normal visualized distal radius and ulna. Normal radiocarpal articulation. Normal distal radioulnar articulation. Normal carpal bones. Normal carpal articulations. Normal carpometacarpal articulation of the thumb. Normal second through fifth carpometacarpal articulations. Normal visualized metacarpal bones. The soft tissue structures are unremarkable. There is no demonstrated acute fracture. RAD/Wrist 2 Views IMPRESSION: Normal x-ray examination of the wrist. Electronically Signed: Hugo Arndt MD at 13:25 EST ,
--- NOTE | 2024-05-26 11:30 | RAD_ITS ---
STUDY: X-RAY - PELVIS AND LEFT HIP REASON FOR EXAM: Female, 58 years old. PAIN TECHNIQUE: 3 views of the pelvis and left hip. COMPARISON: None. FINDINGS: There is a non-specific bowel gas pattern. There are multiple calcified phleboliths in the pelvis. Normal bilateral iliac wings, sacroiliac joints and visualized sacrum. Normal bilateral superior and inferior pubic rami. Normal pubic symphysis. Normal bilateral ischial tuberosities. Normal visualized femoral head. Normal acetabulum. Normal hip joint. RAD/HIP, UNI W/ Pelvis 2-3 Views IMPRESSION: Unremarkable x-ray examination of the pelvis and left hip. Electronically Signed: Hugo Arndt MD at 14:29 EST ,
--- NOTE | 2024-05-26 11:30 | RAD_ITS ---
STUDY: X-RAY - LEFT KNEE REASON FOR EXAM: Female, 58 years old. PAIN TECHNIQUE: 3 views of the left knee. COMPARISON: None. FINDINGS: Normal visualized distal femur. Normal visualized proximal tibia and fibula. Normal proximal tibiofibular articulation. There is no demonstrated fracture. There is minimal degenerative arthrosis of the medial femorotibial compartment. There is minimal degenerative arthrosis of the lateral femorotibial compartment. Normal patellofemoral articulation. The soft tissue structures are unremarkable. RAD/Knee 3 Views IMPRESSION: Minimal degenerative arthrosis of the medial and lateral femorotibial compartments. No demonstrated fracture. Electronically Signed: Hugo Arndt MD at 13:12 EST ,
== END | disposition home or self-care (01) ==
LOC: RAD 11:17
PROVIDERS: PCP Nurse Practitioner Family; Referring Provider Nurse Practitioner Family; Visit Provider Nurse Practitioner Family
DX: M25.531 Pain in right wrist (principal); M25.552 Pain in left hip; M25.561 Pain in right knee
CPT/HCPCS: 73100; 73502; 73562

== ENCOUNTER → 2024-07-09 | Outpatient (CLI) | payer MEDICAID, SELFPAY ==
--- NOTE | 2024-07-09 09:20 | RAD_ITS ---
PROCEDURE: CHEST PA AND LATERAL REASON FOR EXAM: Dyspnea TECHNIQUE: Frontal and lateral views of the chest. COMPARISON: 11/25/2022 FINDINGS: The heart size is normal. There are atherosclerotic calcifications of the thoracic aorta. There are chronic-appearing changes of both lungs. The bones are unremarkable. RAD/Chest PA and Lateral IMPRESSION: No radiographic evidence of acute cardiopulmonary disease. Stable right basila r scarring Reading Location: [facility]
== END | disposition home or self-care (01) ==
PROVIDERS: PCP Nurse Practitioner Family
DX: R06.00 Dyspnea, unspecified (principal)
CPT/HCPCS: 71046

== ENCOUNTER 2024-08-13 05:48 | Day surgery (SDC) | payer MEDICAID, SELFPAY ==
[2024-08-13] VITALS (7 sets, daily range): BP systolic 120–140; BP diastolic 70–79; PULSE 68–74; RESP 16–20; TEMP 36.4–36.8; O2SAT 94–99; BMI 25.6
--- NOTE | 2024-08-13 06:43 | PCM.PRE.AN2 ---
ASA Classification* ASA Classification ASA Classification: 2 Assessment & Plan Anesthesia* Anesthesia Assessment Anesthesia Assessment: Discussed sedation and/or anesthesia options, risks, benefits, and alternatives with patient/parents/legal guardian/POA. Questions invited. The patient/parents/legal guardian/POA seems to understand and agrees to proceed with anesthesia plan. Reviewed the physical assessment, medical history, allergy history and patient home medications list prior to surgery/procedure/anesthetic and documented any changes. Performed airway and anesthesia risk assessments. Anesthesia Type Anesthesia Type: MAC Anesthesia Focused Assessment* Airway Assessment Mouth opens: >3 cm Mallampati Score: II Focused Labs Anesthesia Preop lab: CBC WBC 12.1 K/mm3 (4.4-11.0) H 04/19/24 19:10 04/19/24 RBC 5.75 M/mm3 (4.2-5.4) H 04/19/24 19:10 04/19/24 Hgb 15.9 g/dL (12.0-15.0) H 04/19/24 19:10 04/19/24 Hct 49.4 % (37-47) H 04/19/24 19:10 04/19/24 Plt Count 290 K/mm3 (150-450) 04/19/24 19:10 04/19/24 CHEMISTRY Potassium 3.6 mmol/L (3.5-5.1) 04/19/24 20:58 04/19/24 Sodium 140 mmol/L (136-145) 04/19/24 20:58 04/19/24 Magnesium 2.1 mg/dL (1.6-2.6) 03/07/22 06:30 03/07/22 Phosphorus 3.4 mg/dL (2.5-4.9) 03/07/22 06:30 03/07/22 BUN 15 mg/dL (7-18) 04/19/24 20:58 04/19/24 Creatinine 0.71 mg/dL (0.55-1.02) 04/19/24 20:58 04/19/24 Glucose 162 mg/dL (74-106) H 04/19/24 20:58 04/19/24 POC Glucose 251 mg/dL (74-106) H 04/22/24 05:57 04/22/24 TSH 0.489 uIU/mL (0.358-3.740) 03/25/24 08:02 03/25/24 COAG PT 13.0 SECONDS (11.7-14.9) 04/19/24 19:10 04/19/24 Pre-Assessment Diagnosis/Proposed Procedure Planned Operative Procedure(s): EGD Anesthesia History 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 When Was Last Pacemaker Check QUESTION #4 FULL TEXT: You/Your Family Experience fever (hyperthermia) with Anesthesia Last Oral Intake Last Oral intake: Last Oral Intake NPO since Meds taken in AM with sips of water? 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 Female Yes 08/10/24 14:40 HX of Motion Sickness No 08/10/24 14:40 HX of N/V After Surgery No 08/10/24 14:40 Non-Smoker Yes 08/10/24 14:40 Duration of Surgery greater No 08/10/24 14:40 than 60 minutes Number of Risk Factors 2 08/10/24 14:40 PONV Score Moderate Risk 08/10/24 14:40 Height & Weight Height & Weight: Anesthesia: Height & Weight Height 5 ft 2 in 07/08/24 11:42 Respiratory Assessment Respiratory Assessment - elementary school teacher's aide: Respiratory Tract Infection Hx - 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 Has anyone observed you stop No 08/10/24 14:40 breathing during sleep? STOP Results Positive 08/10/24 14:40 QUESTION #5 FULL TEXT : Do you snore loudly (louder than talking or can be heard through closed doors)? 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 Specify any problems Hx of Preganancy in last 3 No 08/10/24 14:40 Months Nurse Filling Out Transfusion DSCHRIBER 08/10/24 14:40 & Questions: Date: 08/10/24 08/10/24 14:40 Time: 14:41 08/10/24 14:40 Patient unable to answer at this time (ie. 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: /Reproductive Hx- elementary school teacher's aide Hx Now No 08/10/24 14:40 Gestational Age (in weeks): EDC: Hx Hx Para Hx Section SAB No 08/10/24 14:40 PFSH Medical History Esophageal and gastric varices History of ulceration Lupus Osteoarthritis of right knee Right knee pain Greater trochanteric bursitis of left hip Osteoarthritis of left hip Left hip pain Psoriasis Wears glasses Arthritis Difficulty swallowing Gastric reflux History of cellulitis Bilateral carpal tunnel syndrome Anxiety Degenerative disc disease Fibromyalgia MRSA (methicillin resistant staph aureus) culture positive Hx of intestinal obstruction History of diverticulitis Bipolar 1 disorder Depression Diabetes Asthma PTSD (post-traumatic stress disorder) Home Medications ?Medication ?Instructions ?Recorded ?Last Taken ?Type trazodone 150 mg tablet 150 mg PO QHS anxiety 07/15/21 08/12/24 History albuterol sulfate 90 mcg/actuation 2 puff inhalation Q6H PRN 07/16/21 08/13/24 Rx aerosol inhaler shortness of breath or wheezing #8.5 grams ibuprofen 500 mg PO Q6H PRN PRN Pain 03/06/22 08/12/24 History hydroxyzine HCl 25 mg tablet 25 mg PO TID PRN anxiety 11/04/22 08/12/24 History cetirizine 10 mg tablet 10 mg PO BID 03/06/23 08/12/24 History fluticasone fur. 200 mcg-umeclid 1 inh inhalation Q24H 04/08/23 08/13/24 History 62.5 mcg-vilant 25 mcg inhalat.powder (Trelegy Ellipta) lanolin alcohols-mineral 1 applic topical DAILY 04/08/23 08/13/24 History oil-w.petrolatum-ceresin topical cream (Minerin Creme topical) sertraline 50 mg tablet 50 mg PO DAILY 04/08/23 08/12/24 History hydroxyzine HCl 25 mg tablet 50 mg PO QHS 06/23/23 08/12/24 History dapagliflozin propanediol 10 mg 10 mg PO DAILY 10/01/23 08/10/24 History tablet (Farxiga) omeprazole 40 mg capsule,delayed 40 mg PO BID 10/01/23 08/13/24 History release triamcinolone acetonide 0.1 % 1 applic topical BID 10/01/23 08/12/24 History topical cream atorvastatin 20 mg tablet 20 mg PO QHS 10/28/23 08/12/24 History metformin 500 mg tablet 500 mg PO BID 03/12/24 08/12/24 History propranolol 20 mg tablet 20 mg PO BID 03/12/24 08/13/24 History metoclopramide HCl 10 mg tablet 10 mg PO Q6H PRN nausea and 05/04/24 Unknown Rx vomiting #20 tabs benzonatate 100 mg capsule 100 mg PO BID PRN cough 06/14/24 08/12/24 History dicyclomine 20 mg tablet 20 mg PO TID PRN abdominal pain 06/14/24 08/11/24 History gabapentin 100 mg capsule 300 mg PO TID 06/14/24 08/11/24 History ondansetron 4 mg disintegrating 4 mg PO Q8H PRN nausea and vomiting 06/14/24 08/12/24 History tablet albuterol sulfate 2.5 mg/3 mL 2.5 mg inhalation Q4H PRN PRN 08/10/24 Unknown History (0.083 %) solution for nebulization shortness of breath or wheezing cyclobenzaprine 5 mg tablet 5 mg PO BID 08/13/24 08/12/24 History fluticasone propionate 50 2 spray intranasal DAILY PRN 08/13/24 Unknown History mcg/actuation nasal congestion spray,suspension Allergy/AdvReac Type Severity Reaction Status Date / Time Tetracyclines Allergy Intermediate Rash Verified 08/10/24 14:36 aminophylline Allergy Swelling Verified 08/10/24 14:36 amphetamine (From Adderall) Allergy Other Verified 08/10/24 14:36 dextroamphetamine (From Allergy Other Verified 08/10/24 14:36 Adderall) dulaglutide (From Trulicity) Allergy Vomiting Verified 08/10/24 14:36 Iodinated Contrast Media (CT) Allergy Swelling Verified 08/10/24 14:36 iodine Allergy Swelling Verified 08/10/24 14:36 povidone-iodine (From Allergy Swelling Verified 08/10/24 14:36 Betadine) shellfish derived Allergy Swelling Verified 08/10/24 14:36 Sulfa (Sulfonamide Allergy Swelling Verified 08/10/24 14:36 Antibiotics) buspirone (From BuSpar) AdvReac Intermediate Other Verified 08/10/24 14:36 allantoin (From Blistex) AdvReac Swelling Verified 08/10/24 14:36 aloe vera (From Blistex) AdvReac Swelling Verified 08/10/24 14:36 camphor (From Blistex) AdvReac Swelling Verified 08/10/24 14:36 chamomile flower (From AdvReac Swelling Verified 08/10/24 14:36 Blistex) dimethicone (From Blistex) AdvReac Swelling Verified 08/10/24 14:36 herbal complex no.57 (From AdvReac Swelling Verified 08/10/24 14:36 Blistex) homosalate (From Blistex) AdvReac Swelling Verified 08/10/24 14:36 menthol (From Blistex) AdvReac Swelling Verified 08/10/24 14:36 meradimate (From Blistex) AdvReac Swelling Verified 08/10/24 14:36 octinoxate (From Blistex) AdvReac Swelling Verified 08/10/24 14:36 octyl salicylate (From AdvReac Swelling Verified 08/10/24 14:36 Blistex) oxybenzone (From Blistex) AdvReac Swelling Verified 08/10/24 14:36 padimate O (From Blistex) AdvReac Swelling Verified 08/10/24 14:36 petrolatum,hydrophilic (From AdvReac Swelling Verified 08/10/24 14:36 Blistex) phenol (From Blistex) AdvReac Swelling Verified 08/10/24 14:36 tetracycline AdvReac Rash Verified 08/10/24 14:36 Family History Father Diabetes Heart disease COPD (chronic obstructive pulmonary disease) Hypertension Mother Diabetes Heart disease COPD (chronic obstructive pulmonary disease) Cancer Sister Heart disease Thyroid disorder Surgical History History of esophagogastroduodenoscopy (EGD) Hx of colonoscopy History of carpal tunnel surgery Hx of surgical procedure Hx of tooth extraction Hx of breast surgery History of right breast biopsy (~11/2021) History of intestinal surgery History of lumpectomy of right breast Hx of appendectomy Hx of repair of right rotator cuff Hx of bilateral oophorectomy Hx of hysterectomy Social History household members: spouse housing: other details: homeless lives in [facility] Smoking Status: Never smoker alcohol intake: never substance use type: does not use Review of Systems (Anesthesia) ROS Narrative System reviewed and no additional complaints, except as documented.
--- NOTE | 2024-08-13 06:59 | PCM.HP.STD ---
HPI - General General Date of Admission: 08/13/24 Date of Service: 08/13/24 Chief Complaint: dysphagia HPI Narrative LEAH JERRY, is a 58 F who presents for the evaluation of dysphagia and esophageal varices OV 03/12/2024 LILLY Ledesma This is a new pt here today for establishment with [facility]. She has had issues with n/v off and on since Jun 2023. Discontinuing Trulicity helped but her symptoms have come back. She underwent EGD in Jun 2023 with esophageal varices, inflammation and a benign tumor. She will undergo another EGD to assess her GI tract. We may need to order a GES in the future Pt has never had a diagnosis of cirrhosis or work up for this. She did have esophageal varices and I discussed that this is typically caused by cirrhosis. She does not have a hx of drinking. I ordered liver work up and liver elastography. She has alternating constipation and diarrhea for years now. She has not tried taking any daily medications. She is unwilling to try miralax daily so we I recommended colace. -EGD -Liver elastography -Liver work up -Start colace -Prescribed zofran -f/u in 3 months EGD 04/22/2024 - Ulceration w/ acute esophagitis, neg. H. pylori and celiac sprue It was recommended she complete serum gastrin and GES - Severe ulceration in the esophagus. Please make sure she is on PPI twice a day and metoclopramide 3 times a day. - LA Grade C reflux esophagitis with no bleeding. Biopsied. - Enlarged gastric folds. Biopsied. - Erythematous duodenopathy. Biopsied. - check Gastrin level - TONY + serum protein electrophoresis - Gastric emptying study Colon/EGD 07/2023 ([facility]) - neg. H. 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 - Diverticulosis in the entire examined colon. No specimens collected. - One 3 mm polyp in the proximal sigmoid colon. Biopsied. UGI 05/27/2023 No evidence of gastroesophageal reflux. Small traction diverticulum in the distal portion of the esophagus. LABS 04/19/2024 ALP 206 ALP elevation dates back to July 2023 ranging from 144-206. ABD US: 03/25/2024 hepatomegaly ELASTOGRAPHY: 03/25/2024 kPa 3.3 - c/o nausea - this does not cause emesis - dysphagia mid chest - emesis 2x in past 2 weeks - these episodes have been right after meals - she reports food is getting stuck in the esophagus and she is drinking water to try and push food through - this is when she vomits - this has been an issue for the past 3 years - c/o abdominal cramping improves with dicyclomine TID - if she does not take dicyclomine she sharp stabbing generalized pain - reports a history of esophageal dilation several years ago and did well until 3 years ago - she was taking IBU 4 tabs QID for joint pain - she decreased this 3 weeks ago to 3 tabs as needed Dicyclomine 10mg TID Metoclopramide 10mg QID PRN N/V - not taking any of this in the past month Omeprazole 40mg BID Ondansetron 4mg Q8h PRN - about 2x a week - weight is stable - Rheumatology this Friday at [facility] - weakness - 2 falls in past 2 weeks , fallFebruary 2024 - states her legs just give out CBC 03/25/2024 HGB 12.2 PT/INR 03/25/2024 normal CMP: 03/25/2024July ALP 184 Fe pane: 03/25/2024 normal LDH: 03/25/2024 normal CRP: 03/25/2024 normal AFP: 03/25/2024 normal Ceruloplasmin: 03/25/2024 31 normal Serum Copper: 03/25/2024 normal ANCA: 03/25/2024 negative ARIADNA: 03/25/2024 normal SS-A/Ro IgG Ab: 03/25/2024 elevated 2.4 AMA: 03/25/2024 normal ASMA: 03/25/2024 normal HAV IgM 03/25/2024 negative HBVsAg 03/25/2024 negative HBV Core IgM 03/25/2024 negative HCV Ab 03/25/2024 negative HIV 03/25/2024 negative AFP: 03/25/2024 normal IBU - Jan 2024 to May 2024 - for joint aches and pain Half Brother - just passed from liver cirrhosis something genetic [facility] Medical History Esophageal and gastric varices History of ulceration Lupus Osteoarthritis of right knee Right knee pain Greater trochanteric bursitis of left hip Osteoarthritis of left hip Left hip pain Psoriasis Wears glasses Arthritis Difficulty swallowing Gastric reflux History of cellulitis Bilateral carpal tunnel syndrome Anxiety Degenerative disc disease Fibromyalgia MRSA (methicillin resistant staph aureus) culture positive Hx of intestinal obstruction History of diverticulitis Bipolar 1 disorder Depression Diabetes Asthma PTSD (post-traumatic stress disorder) Home Medications ?Medication ?Instructions ?Recorded ?Last Taken ?Type trazodone 150 mg tablet 150 mg PO QHS anxiety 07/15/21 08/12/24 History albuterol sulfate 90 mcg/actuation 2 puff inhalation Q6H PRN 07/16/21 08/13/24 Rx aerosol inhaler shortness of breath or wheezing #8.5 grams ibuprofen 500 mg PO Q6H PRN PRN Pain 03/06/22 08/12/24 History hydroxyzine HCl 25 mg tablet 25 mg PO TID PRN anxiety 11/04/22 08/12/24 History cetirizine 10 mg tablet 10 mg PO BID 03/06/23 08/12/24 History fluticasone fur. 200 mcg-umeclid 1 inh inhalation Q24H 04/08/23 08/13/24 History 62.5 mcg-vilant 25 mcg inhalat.powder (Trelegy Ellipta) lanolin alcohols-mineral 1 applic topical DAILY 04/08/23 08/13/24 History oil-w.petrolatum-ceresin topical cream (Minerin Creme topical) sertraline 50 mg tablet 50 mg PO DAILY 04/08/23 08/12/24 History hydroxyzine HCl 25 mg tablet 50 mg PO QHS 06/23/23 08/12/24 History dapagliflozin propanediol 10 mg 10 mg PO DAILY 10/01/23 08/10/24 History tablet (Farxiga) omeprazole 40 mg capsule,delayed 40 mg PO BID 10/01/23 08/13/24 History release triamcinolone acetonide 0.1 % 1 applic topical BID 10/01/23 08/12/24 History topical cream atorvastatin 20 mg tablet 20 mg PO QHS 10/28/23 08/12/24 History metformin 500 mg tablet 500 mg PO BID 03/12/24 08/12/24 History propranolol 20 mg tablet 20 mg PO BID 03/12/24 08/13/24 History metoclopramide HCl 10 mg tablet 10 mg PO Q6H PRN nausea and 05/04/24 Unknown Rx vomiting #20 tabs benzonatate 100 mg capsule 100 mg PO BID PRN cough 06/14/24 08/12/24 History dicyclomine 20 mg tablet 20 mg PO TID PRN abdominal pain 06/14/24 08/11/24 History gabapentin 100 mg capsule 300 mg PO TID 06/14/24 08/11/24 History ondansetron 4 mg disintegrating 4 mg PO Q8H PRN nausea and vomiting 06/14/24 08/12/24 History tablet albuterol sulfate 2.5 mg/3 mL 2.5 mg inhalation Q4H PRN PRN 08/10/24 Unknown History (0.083 %) solution for nebulization shortness of breath or wheezing cyclobenzaprine 5 mg tablet 5 mg PO BID 08/13/24 08/12/24 History fluticasone propionate 50 2 spray intranasal DAILY PRN 08/13/24 Unknown History mcg/actuation nasal congestion spray,suspension Allergy/AdvReac Type Severity Reaction Status Date / Time Tetracyclines Allergy Intermediate Rash Verified 08/10/24 14:36 aminophylline Allergy Swelling Verified 08/10/24 14:36 amphetamine (From Adderall) Allergy Other Verified 08/10/24 14:36 dextroamphetamine (From Allergy Other Verified 08/10/24 14:36 Adderall) [facility] Allergy Vomiting Verified 08/10/24 14:36 Iodinated Contrast Media (CT) Allergy Swelling Verified 08/10/24 14:36 iodine Allergy Swelling Verified 08/10/24 14:36 povidone-iodine (From Allergy Swelling Verified 08/10/24 14:36 Betadine) shellfish derived Allergy Swelling Verified 08/10/24 14:36 Sulfa (Sulfonamide Allergy Swelling Verified 08/10/24 14:36 Antibiotics) buspirone (From BuSpar) AdvReac Intermediate Other Verified 08/10/24 14:36 allantoin (From Blistex) AdvReac Swelling Verified 08/10/24 14:36 aloe vera (From Blistex) AdvReac Swelling Verified 08/10/24 14:36 camphor (From Blistex) AdvReac Swelling Verified 08/10/24 14:36 chamomile flower (From AdvReac Swelling Verified 08/10/24 14:36 Blistex) dimethicone (From Blistex) AdvReac Swelling Verified 08/10/24 14:36 herbal complex no.57 (From AdvReac Swelling Verified 08/10/24 14:36 Blistex) homosalate (From Blistex) AdvReac Swelling Verified 08/10/24 14:36 menthol (From Blistex) AdvReac Swelling Verified 08/10/24 14:36 meradimate (From Blistex) AdvReac Swelling Verified 08/10/24 14:36 octinoxate (From Blistex) AdvReac Swelling Verified 08/10/24 14:36 octyl salicylate (From AdvReac Swelling Verified 08/10/24 14:36 Blistex) oxybenzone (From Blistex) AdvReac Swelling Verified 08/10/24 14:36 padimate O (From Blistex) AdvReac Swelling Verified 08/10/24 14:36 petrolatum,hydrophilic (From AdvReac Swelling Verified 08/10/24 14:36 Blistex) phenol (From Blistex) AdvReac Swelling Verified 08/10/24 14:36 tetracycline AdvReac Rash Verified 08/10/24 14:36 Family History Father Diabetes Heart disease COPD (chronic obstructive pulmonary disease) Hypertension Mother Diabetes Heart disease COPD (chronic obstructive pulmonary disease) Cancer Sister Heart disease Thyroid disorder Surgical History History of esophagogastroduodenoscopy (EGD) Hx of colonoscopy History of carpal tunnel surgery Hx of surgical procedure Hx of tooth extraction Hx of breast surgery History of right breast biopsy (~11/2021) History of intestinal surgery History of lumpectomy of right breast Hx of appendectomy Hx of repair of right rotator cuff Hx of bilateral oophorectomy Hx of hysterectomy Social History household members: spouse housing: other details: homeless lives in detention Smoking Status: Never smoker alcohol intake: never substance use type: does not use ROS Constitutional Constitutional: Denies fatigue, fever(s), poor appetite, weight gain or weight loss Gastrointestinal Gastrointestinal: Denies belching, bloating, change in bowel habits, change in stool character, chewing difficulty, coffee ground emesis, constipation, cramping, diarrhea, dyspepsia, dysphagia, early satiety, excessive flatus, fecal incontinence, heartburn, hematemesis, hematochezia, hemorrhoids, loose stools, melena, nausea, odynophagia, rectal bleeding, tenesmus, vomiting or weight changes Vital Signs Vital Signs Vital Signs: 08/13/24 06:40 08/13/24 06:41 Temperature 98.2 F Temperature Source Temporal Pulse Rate 74 Respiratory Rate 16 Respiratory Pattern Normal Blood Pressure 140/75 H Blood Pressure Mean 96 Blood Pressure Source Monitor Blood Pressure Position Semi-Fowlers Blood Pressure Location Right Arm Pulse Ox 99 Oxygen Delivery Method Room Air Weight Weight: 140 lb 1.6 oz Body Mass Index (BMI) 25.6 Physical Exam Const alert, oriented x3, no apparent distress and healthy appearing General Appearance: cooperative GI normal to inspection, nondistended, normoactive bowel sounds, soft to palpation, non-tender and non-distended Percussion: normal to percussion Rectal Exam: deferred Assessment & Plan Assessment/Plan (1) Esophageal varices: QUALIFIERS: Esophageal varices type: unspecified type Esophageal varices bleeding: without bleeding Qualified Code(s): I85.00 - Esophageal varices without bleeding PLAN: Assessment and Plan Assessment and Plan (1) Elevated alkaline phosphatase level: Status: Acute (2) Hepatomegaly: Status: Acute (3) SS-A antibody positive: Status: Acute (4) Nausea: Status: Acute (5) Esophageal varices: Status: Acute Qualifiers: Esophageal varices type: unspecified type Esophageal varices bleeding: without bleeding Qualified Code(s): I85.00 - Esophageal varices without bleeding (6) Difficulty swallowing: Status: Acute Qualifiers: Dysphagia type: esophageal phase Qualified Code(s): R13.19 - Other dysphagia (7) Traction diverticulum of esophagus: Status: Acute Orders: Orders Liver Profile 06/14/24 R11.0 - Nausea, R16.0 - Hepatomegaly, not elsewhere classified, R74.8 - Abnormal levels of other serum enzymes, R76.8 - Other specified abnormal immunological findings in serum GGTP 06/14/24 R11.0 - Nausea, R16.0 - Hepatomegaly, not elsewhere classified, R74.8 - Abnormal levels of other serum enzymes, R76.8 - Other specified abnormal immunological findings in serum Abdomen Limited 06/14/24 I85.00 - Esophageal varices without bleeding Esophagus Dual Contrast Today K22.5 - Diverticulum of esophagus, acquired, R13.10 - Dysphagia, unspecified Plan 58y/o female presents for follow-up. She was last seen by LILLY Pulido on 03/12/2024 for complaints of N/V on and office June 2023. She had initially noted improvement with discontinuing Trulicity. Colonoscopy and EGD performed July 2023 ([facility]) revealed medium HH and grade II esophageal varices. Due to recurrent N/V she underwent an EGD with Dr. Smith 04/22/2024 which revealed Grade C esophagitis and biopsies were negative for Chiu's and H. pylori. No varices were reported on this exam. In terms of esophageal varices noted on July 2023 EGD she underwent an ABD US which revealed hepatomegaly, Elastography revealed a low risk kPa of 3.3. Her labs do reveal an ALP elevation that dates back to July 2023 ranging from 144-206. AST was minimally elevated July 2023. She continues to complain of nausea and takes Ondansetron a couple times a week. She reports discontinuing metoclopramide one month ago, as this did not improve her symptoms. She complains of dysphagia in the mid chest with emesis to dislodge. She reports the emesis she is experiencing is not associated with nausea. She reports a remote history of esophageal dilation, reporting she did well until 3 years ago. UGI performed 05/27/2023 revealed a small traction diverticulum in the distal esophagus. Diverticulum was not noted on EGD performed July or April 2024. I recommend repeating esophageal imaging at this time (Esophagram) and pending findings possible CT chest. I do not feel a GES Is needed at this time. She continues to complain of chronic abdominal pain, improved with dicyclomine TID. She complains of chronic joint pain, weakness with recent falls and was taking IBU 800mg QID for four months. She reports decreasing this dose to 600mg PRN three weeks ago. We have discussed high doses of IBU is likely what was contributing to Grade C esophagitis noted on April 2024 EGD. She remains on Omeprazole 40mg BID and will repeat EHD to assess mucosal healing. In terms of joint pain, weakness, and skin lesions with SS-A/Ro IgG Ab 03/25/2024 elevated 2.4 she is scheduled to see Rheumatology this Friday at [facility]. ALP was 206 on most recent labs from 04/19/2024. ABD US revealed hepatomegaly. EGD performed July 2023 with Grade II esophageal varices. Autoimmune and infectious work-up negative except as noted above. She reports a family history of liver disease in her brother. I have ordered additional labs that she will have completed at [facility] this Friday. She will also schedule a liver doppler. Patient Instructions: Avoid ALL Ibuprofen and non-steroidal medications Continue Omeprazole twice a day Esophagram for traction diverticulum noted on prior UGI and ongoing dysphagia Repeat EGD - f/u Grade C esophagitis Elevated ALP with esophageal varices on July EGD - Liver Doppler Liver panel GGT
--- NOTE | 2024-08-13 07:00 | EGD_PTH ---
PATIENT: LEAH JERRY LOC: EN U#:[id number] AGE/SX: 58/F ROOM: RE08/13/[address]: Dr. James Smith DO : 1965 BED: DIS: 08/13/2024 SPEC #: [id number] RECD: 08/13/24 13:05 STATUS: KANA ALEXYS #: [id number] IRMA: 08/13/24 07:[address]: James Smith DEPT: SURGICAL PATHOLOGY RECD BY: Rafael Hart ENTERED: 08/13/24 14:16 SP TYPE: EGD BIOPSY OTHR DR: Taylor Fields, [facility], PRACTICE [employer]NAGERS-C Tissues: A - Esophagus, NOS Procedures: Surgery Specimen Level IV HEADER OPERATION: EGD and biopsy PRE-OP DIAGNOSIS: Dysphagia, esophageal varices TISSUE SUBMITTED: A- Distal esophagus biopsy MICROSCOPIC DIAGNOSIS A. Distal esophagus, biopsy: * Cardio-oxyntic mucosa negative for goblet cell metaplasia. * No squamous mucosa seen. MICROSCOPIC DESCRIPTION Slides are reviewed. GROSS DESCRIPTION A. Received in fixative is one container labeled with the patient's name and designated Distal esophagus biopsy. The specimen consists of one irregular fragment of light christian soft tissue that measures 0.4 x 0.3 x 0.2 cm. The specimen is totally submitted in one cassette. 08/13/2024 CPT:95222
[2024-08-13 07:03] LABS: Bedside Glucose 138 mg/dL (74-106)
--- NOTE | 2024-08-13 07:42 | OP.EGD_ITS ---
Patient Name: Rose David Procedure Date: 08/13/2024 7:26 AM Date of : 1965 Age: 58 Procedure: Upper GI endoscopy Indications: Epigastric abdominal pain, Dysphagia, Esophageal varices Providers: James Smith DO Referring MD: Taylor Fields [facility], Aircraft Restorer-c Medicines: Monitored Anesthesia Care Patient Profile: This is a 58 year old female. Refer to note in patient chart for documentation of history and physical. Patient has symptoms of dysphagia with both liquids and solids and chronic heartburn. Complications: No immediate complications. Procedure: Pre-Anesthesia Assessment: - Prior to the procedure, a History and Physical was performed, and patient medications and allergies were reviewed. The patient is competent. The risks and benefits of the procedure and the sedation options and risks were discussed with the patient. All questions were answered and informed consent was obtained. Patient identification and proposed procedure were verified by the physician in the pre-procedure area. Mental Status Examination: alert and oriented. Airway Examination: normal oropharyngeal airway and neck mobility. Respiratory Examination: clear to auscultation. CV Examination: normal. ASA Grade Assessment: II - A patient with mild systemic disease. After reviewing the risks and benefits, the patient was deemed in satisfactory condition to undergo the procedure. The anesthesia plan was to use monitored anesthesia care (MAC). Immediately prior to administration of medications, the patient was re-assessed for adequacy to receive sedatives. The heart rate, respiratory rate, oxygen saturations, blood pressure, adequacy of pulmonary ventilation, and response to care were monitored throughout the procedure. The physical status of the patient was re-assessed after the procedure. After obtaining informed consent, the endoscope was passed under direct vision. Throughout the procedure, the patient's blood pressure, pulse, and oxygen saturations were monitored continuously. The Endoscope was introduced through the mouth, and advanced to the second part of duodenum. The upper GI endoscopy was accomplished without difficulty. The patient tolerated the procedure well. Scope In: 7:33:29 AM Scope Out: 7:36:28 AM Total Procedure Duration Time 0 hours 2 minutes 59 seconds Findings: Abnormal motility was noted in the esophagus. The cricopharyngeus was abnormal. There are extra peristaltic waves in the esophageal body. The distal esophagus/lower esophageal sphincter is spastic, but gives up passage to the endoscope. Tertiary peristaltic waves are noted. Biopsies were taken with a cold forceps for histology. Verification of patient identification for the specimen was done. Estimated blood loss was minimal. Small (< 5 mm) varices were found in the lower third of the esophagus. They were 2 mm in largest diameter. A small hiatal hernia was present. A medium amount of food (residue) was found in the gastric body and in the gastric antrum. Suspect gastroparesis due to patient symptoms and retained gastric contents. No gross lesions were noted in the duodenal bulb. Impression: - Abnormal esophageal motility, consistent with esophageal spasm. Biopsied. - Small (< 5 mm) esophageal varices. - Small hiatal hernia. - A medium amount of food (residue) in the stomach. - Gastroparesis, secondary to diabetes mellitus type II. - No gross lesions in the duodenal bulb. Recommendation: - Discharge patient to home. - Resume previous diet. - Continue present medications. - Await pathology results. Procedure Code(s): --- Professional --- 07299, Esophagogastroduodenoscopy, flexible, transoral; with biopsy, single or multiple CPT copyright 2021 [employer]. All rights reserved. The codes documented in this report are preliminary and upon data coder operator review may be revised to meet current compliance requirements. James Smith DO 08/13/2024 7:42:11 AM This report has been signed electronically. Number of Addenda: 0 Note Initiated On: 08/13/2024 7:26 AM
--- NOTE | 2024-08-13 07:42 | OP.CCLET_ITS ---
08/13/2024 Taylor Fields [facility], Technical Systems Architect-c Re : Upper GI endoscopy procedure for Rose Marianor Donnie This procedure was performed on Tuesday, August 13, 2024. My impressions and recommendations are as follows: Impressions : - Abnormal esophageal motility, consistent with esophageal spasm. Biopsied. - Small (< 5 mm) esophageal varices. - Small hiatal hernia. - A medium amount of food (residue) in the stomach. - Gastroparesis, secondary to diabetes mellitus type II. - No gross lesions in the duodenal bulb. Recommendations : - Discharge patient to home. - Resume previous diet. - Continue present medications. - Await pathology results. My findings are described in the full procedure note, which is enclosed. If I can be of further assistance, please feel free to contact me at . Sincerely, James Smith, 08/13/2024 7:42:11 AM This report has been signed electronically.
--- NOTE | 2024-08-13 07:46 | PCM.POST.ANE ---
Anesthesia: Postop Eval I Current Vital Signs Temperature: 97.5 F Pulse Rate: 72 Blood Pressure: 140/74 Respiratory Rate: 16 Pulse Ox: 95 Oxygen Delivery Method: Room Air Assessment Airway patent: Yes Spontaneous unlabored respirations: Yes Mental status: Asleep nausea: No Vomiting: No Anesthesia Complication: No Fluid Hydration Crystalloid volume administer (ml): 30 Total IV fluid infused: 30 Progress Note Anesthesia document: Postop Eval 1 completed: Yes
--- NOTE | 2024-08-13 08:31 | PCM.POSTANE2 ---
Anesthesia Postop Eval I Sum Postop Eval Completion status Anesthesia document: Postop Eval 1 completed: Yes Anesthesia Postop Eval I Summary Anesthesia Postop Eval I Summary: Anesthesia Postop Eval I: Assessment Summary Airway patent Yes 08/13/24 07:48 [email or web address] Spontaneous unlabored Yes 08/13/24 07:48 [email or web address] respirations Mental status Asleep 08/13/24 07:48 [email or web address] nausea No 08/13/24 07:48 [email or web address] Vomiting No 08/13/24 07:48 [email or web address] Anesthesia Postop Eval I: Fluid Summary Crystalloid volume administer 30 08/13/24 07:48 [email or web address] (ml) Colloids volume administered ( ml) Blood Product volume administered (ml) Total IV fluid infused 30 08/13/24 07:48 [email or web address] Anesthesia Postop Eval I: Summary Notes Anesthesia Complication No 08/13/24 07:48 [email or web address] Anesthesia Complication Comment: Post-operative progress note Anesthesia: Postop Eval II Evaluation Mental status: Awake Pain Level: 0 nausea: No Vomiting: No
== END 2024-08-13 08:39 | disposition home or self-care (01) ==
LOC: EN 05:48 → AC 05:49
PROVIDERS: PCP Nurse Practitioner Family; Referring Provider Nurse Practitioner Family; Visit Provider Internal Medicine Gastroenterology
PROC: 0DJ08ZZ Inspection of Upper Intestinal Tract, Via Natural or Artificial Opening Endoscopic (ICD-10-PCS; CPT 43235; principal; 2024-08-13 06:55)
DX: I85.00 Esophageal varices without bleeding (principal); E11.43 Type 2 diabetes mellitus with diabetic autonomic (poly)neuropathy; K22.4 Dyskinesia of esophagus; K31.84 Gastroparesis; K22.5 Diverticulum of esophagus, acquired; K44.9 Diaphragmatic hernia without obstruction or gangrene; R74.8 Abnormal levels of other serum enzymes; R76.8 Other specified abnormal immunological findings in serum; Z79.84 Long term (current) use of oral hypoglycemic drugs; Z59.01 Sheltered homelessness
CPT/HCPCS: 43239; 82962; 88305; A4216; J2405

== ENCOUNTER → 2024-08-16 | Outpatient (CLI) | payer MEDICAID, SELFPAY ==
--- NOTE | 2024-08-16 07:26 | US_ITS ---
PROCEDURE: ABDOMEN LIMITED 08/16/2024 REASON FOR EXAM: ESOPH VARICES COMPARISON: Comparison is made with prior study dated March 25, 2024. FINDINGS: Liver: Diffusely echogenic suggesting fatty infiltration. The liver measures 15.2 cm. No focal abnormality is seen.. Scalloped contour of the liver suggestive of possible cirrhosis. Gallbladder: No stones, sludge, wall thickening or tenderness. Common bile duct: Normal measuring 5.9 mm. Pancreas: Normal Other: Right kidney is unremarkable. Mild splenomegaly measuring 14 cm x 5.2 cm 4.5 cm. US/Abdomen Limited IMPRESSION: Fatty infiltration of the liver. Splenomegaly. Reading Location: [place] [id number]
== END | disposition home or self-care (01) ==
LOC: US 07:23
PROVIDERS: PCP Nurse Practitioner Family; Referring Provider Nurse Practitioner Acute Care; Visit Provider Nurse Practitioner Acute Care
DX: I85.00 Esophageal varices without bleeding (principal)
CPT/HCPCS: 76705; 93976

== ENCOUNTER → 2024-08-24 | Outpatient (CLI) | payer MEDICAID, SELFPAY ==
--- NOTE | 2024-08-24 08:15 | RAD_ITS ---
EXAM: DOUBLE-CONTRAST ESOPHAGRAM CLINICAL HISTORY: ENDOSCOPE LAST WEEK SHOWED VARICOSITIES AND POSSIBLE DISTAL MASS. COMPARISON: No relevant prior. TECHNIQUE: Following the ingestion of effervescent granules and high density barium, swallowing mechanism was evaluated under fluoroscopy in the oblique, AP, lateral, and RPO positions. Barium tablet was also utilized. Imaging sequences were documented as usual. FLUOROSCOPIC TIME: 85 sec Dose: 9.88 mGy FLUOROGRAPHIC IMAGES: 7 imaging sequences. FINDINGS: No abnormalities were seen in the hypopharynx. A few mild tertiary contractions were noted in the distal esophagus. Following ingestion of the barium tablet, no delay was seen while passing through the esophagus through the esophagogastric junction. No constricting or obstructing lesions were demonstrated. No intraluminal filling defects. No ulcerations. A few episodes of mild gastroesophageal reflux. No hiatal hernia was demonstrated. RAD/Esophagus Dual Contrast IMPRESSION: Mild tertiary contractions were noted in the distal esophagus. No masses or other intrinsic abnormalities are demonstrated. No abnormalities demonstrated in the hypopharynx. Reading Location: [place] [id number]
== END | disposition home or self-care (01) ==
LOC: RAD 07:12
PROVIDERS: PCP Nurse Practitioner Family; Referring Provider Nurse Practitioner Acute Care; Visit Provider Nurse Practitioner Acute Care
DX: K22.5 Diverticulum of esophagus, acquired (principal)
CPT/HCPCS: 74221

== ENCOUNTER → 2024-08-31 | Outpatient (CLI) | payer MEDICAID, SELFPAY ==
[2024-08-31 17:04] LABS: Absolute Neutrophil Count 4.1 X10^3/uL (2.0-7.7); Basophil# 0.03 X10^3/uL; Basophil% 0.5 % (0-1); Eosinophil# 0.24 X10^3/uL; Eosinophils% 3.8 % (0-5); Hematocrit 38.9 % (37-47); Lymphocyte % 23.5 % (19-41); Mean Corp Hgb Conc 30.8 g/dL (32-36); Mean Corpuscular Hgb 26.8 pg (27.0-32.0); Mean Corpuscular Volume 86.8 fL (81-99); Mean Platelet Vol. 9.6 fl (6.2-12.0); Monocyte# 0.46 X10^3/uL; Monocyte% 7.2 % (0-10); NRBC Flagged by Analyzer 0 % (0-5); Neutrophil # 4.12 X10^3/uL (2.7-7.7); Neutrophil % 64.5 % (47-70); Platelet Count 228 K/mm3 (150-450); RBC Distribution Width CV 13.6 % (11.6-14.6); RBC Distribution Width SD 42.4 fl (35.1-43.9); Red Blood Count 4.48 M/mm3 (4.2-5.4); White Blood Count 6.4 K/mm3 (4.4-11.0)
[2024-08-31 17:25] LABS: Microalbumin,Random Urine < 12.0 mg/L (NO RANGE EST.)
[2024-08-31 17:42] LABS: Thyroid Stim Hormone (TSH) 0.408 uIU/mL (0.300-4.200); Vitamin B12 349 pg/mL (180-914); Vitamin D,25 Hydroxy 13.9 ng/mL (30-100)
[2024-08-31 17:45] LABS: ALB/GLOB Ratio 1.5 RATIO (0.9-2.4); AST(SGOT) 21 U/L (<=31); Alanine Aminotransfer ALT/SGPT 10 U/L (<=34); Albumin, Serum 3.8 g/dL (3.4-4.8); Alkaline Phosphatase 173 U/L (35-104); Anion Gap 12 (5-15); BUN 10 mg/dL (4-19); BUN/Creat Ratio 10.9 RATIO (10-20); Bilirubin, Direct < 0.08 mg/dL (0.00-0.30); Calcium,Total 9.2 mg/dL (7.6-11.0); Carbon Dioxide 23.5 mmol/L (21.0-32.0); Chloride 106 mmol/L (98-108); EST Glomerular Filtration Rate 73 (>60); Globulin 2.5 g/dL (2.2-4.2); Glucose 166 mg/dL (70-99); Potassium 3.6 mmol/L (3.3-5.1); Protein, Total 6.2 g/dL (5.9-8.4); Sodium Level 141 mmol/L (133-145); Total Bilirubin 0.19 mg/dL (0.00-1.30)
[2024-09-02 04:07] LABS: GGTP 17 IU/L (0-60)
== END | disposition home or self-care (01) ==
LOC: VSLAB 14:20
PROVIDERS: Nurse Practitioner Acute Care; PCP Nurse Practitioner Family; Visit Provider Nurse Practitioner Family
DX: I10 Essential (primary) hypertension (principal); E11.9 Type 2 diabetes mellitus without complications; M85.80 Other specified disorders of bone density and structure, unspecified site; R11.0 Nausea; R53.83 Other fatigue; R16.0 Hepatomegaly, not elsewhere classified; R74.8 Abnormal levels of other serum enzymes; R76.8 Other specified abnormal immunological findings in serum
CPT/HCPCS: 36415; 80053; 82043; 82248; 82306; 82607; 82977; 84443; 85025

== ENCOUNTER → 2024-12-03 | Outpatient (CLI) | payer MEDICAID, SELFPAY ==
--- NOTE | 2024-12-03 06:45 | NM_ITS ---
PROCEDURE: GASTRIC EMPTYING STUDY - 4 HR 12/03/2024 REASON FOR EXAM: GASTROPARESIS COMPARISON: None TECHNIQUE: The patient ingested a standard meal of 2 eggs, 2 slices of bread and 2 gutters and water. There was no vomiting postprandially. Anterior and posterior planar images of the upper abdomen were obtained for 1 minute immediately following the meal at 1h, 2h and 4h if more than 10% of the activity persisted within the stomach. Regions of interest were drawn, and a geometric mean was used to calculate a [id number]. RADIOPHARMACEUTICAL: Sulfur colloid DOSE 1.2mCi FINDINGS: Percent activity remaining in stomach: 1 hour 45 % (normal 37-90%) 2 hours: 3 % (normal 30-60%) 4 hours: 1 % (normal 0-10%) NM/Gastric Emptying Study - 4 HR IMPRESSION: Normal gastric emptying. Reading Location: [place] [address]
--- OUTSIDE RECORDS SUMMARY | 2024-12-03 06:48 | XMS RPT_ITS | CCD ---
Author Organization [facility] Care Team Providers Care Hose Turner Name Role Phone Required, No Pcp Unavailable Unavailable Shantal aLrsen Unavailable MEDICAL, CLINIC Primary Care Physician Unavailab le PHYSICIAN, NONE Primary Care Physician Unavailab le Unavailable Primary Care Provider Unavailabl Dr. Gilda Giron Emergency Provider Care Physician, No Primary Primary Care Provider Unavailable Dr. Juliana eLon Admit Provider Dr. Bhakti Arndt Attending Provider Dr. Bhakti Arndt Other Provider ROD MARIN Primary Care Provider Dr. Jason Mcmahon Emergency Provider Dr. Gabriele Quiroz Admit Provider Dr. Gabriele Quiroz Other Provider Dr. Mahesh Robert Attending Provider [phone] Mahesh Robert Other Provider Dr. Gabriele Quiroz Attending Provider Dr. Ritu Caruso Attending Provider Dr. Amador Ron Other Provider Dr. Blessing Jolly Other Provider Dr. Blessing Jolly Attending Provider Dr. Blessing Jolly Referring Provider MALLORIE Arce Attending Provider Care Physician, No Primary Referring Provider Un available Care Physician, No Primary Primary Care Provider Unavailable Sasha Garcia MD Primary Care Provider Meshkat Gini MD, Gity Unavailable Sasha Garcia MD Primary Care Provider Lalo Rubalcava MD, Gity Unavailable MARINFRANKROD Primary Care Provider Dr. Jason Mcmahon Emergency Provider Richie, Dr. Suazo Admit Provider Dr. Gabriele Quiroz Other Provider Dr. Mahesh Robert Other Provider Dr. Ritu Caruso Attending Provider Dr. Gabriele Quiroz Attending Provider Dr. Mahesh Robert Attending Provider Dr. Mahesh Robert Attending Provider Care Physician, No Primary Primary Care Provider Unavailable Care Physician, No Primary Referring Provider Un available Care Physician, No Primary Referring Provider Un available Dr. Mahesh Robert Attending Provider Care Physician, No Primary Primary Care Provider Unavailable Dr. Judith Valiente Emergency Provider Dr. Gabriele Quiroz Admit Provider Richie, Dr. Suazo Other Provider Dr. Bhakti Arndt Attending Provider Dr. Bhakti Arndt Other Provider Care Physician, No Primary Primary Care Provider Unavailable Dr. Judith Valiente Emergency Provider Dr. Gabriele Quiroz Admit Provider Dr. Gabriele Quiroz Other Provider Dr. Bhakti Arndt Attending Provider Dr. Bhakti Arndt Other Provider Sasha Garcia MD Primary Care Provider Lalo Rubalcava MD, Liseth Unavailable PHYSICIAN, PATIENT UNSURE Primary Care Norm CARR, KENNETH Stahl Attending Unavailable RENETTA DIRECTOR OF GUIDANCE IN [employer]-PLASTER HELPER, TAYLOR Attending Joanne ilable PHYSICIAN, PATIENT UNSURE Primary Care Dr. Carolyn Landaverde Primary Care Provider Dr. Carolyn West Referring Provider Dr. John Kraus Attending Provider Dr. Luiz Ortega Attending Provider Stan BURNETT, Sasha Argueta Primary Care Provider Renetta AIRCRAFT STRUCTURAL FITTER, AIRCRAFT STRUCTURAL FITTER-C Taylor Referring Provider Renetta AIRCRAFT STRUCTURAL FITTER, AIRCRAFT STRUCTURAL FITTER-C Taylor Other Provider Dr. Kimberly Kovacs Attending Provider Dr. Carolyn West Primary Care Provider Renetta AIRCRAFT STRUCTURAL FITTER, AIRCRAFT STRUCTURAL FITTER-C Taylor Referring Provider Renetta AIRCRAFT STRUCTURAL FITTER, AIRCRAFT STRUCTURAL FITTER-C Taylor Other Provider Dr. Kimberly Kovacs Attending Provider Dr. Carolyn West Referring Provider MD Jonny Marino Attending Provider MD Jonny Marino Referring Provider MD Jonny Marino Other Provider Dr. Mahesh Robert Attending Provider Dr. Carolyn West Primary Care Provider Dr. Carolyn West Referring Provider MD Jonny Marino Attending Provider [facility], aCrolyn West Primary Care Pro vider [facility], Carolyn West Referring Provid er Dr. Carolyn West Primary Care Provider MD Jonny Marino Attending Provider Dr. Carolyn West Referring Provider Dr. Carolyn West Primary Care Provider MD Jonny Marino Attending Provider MD Jonny Marino Referring Provider MD Jonny Marino Other Provider Dr. Carolyn West Referring Provider Dr. Mahesh Robert Attending Provider [facility], Carolyn West Primary Care Pro vider [facility], [place] Brett Referring Provid er Dr. Mahesh Robert Other Provider Stan BURNETT, Sasha Argueta Primary Care Provider Lalo Rubalcava MD, Gity Unavailable Renetta AIRCRAFT STRUCTURAL FITTER, Taylor Unavailable MIMI LOTT Attending UnavailSASHA Montano Primary Care Unavailable MIMI LOTT Referring UnavailSASHA Montano Primary Care Unavailable MIMI LOTT Referring Unavailabl SASHA Enriquez Primary Care Unavailable Elyssa Dukes Attending Provider Elyssa Dukes Referring Provider Renetta AIRCRAFT STRUCTURAL FITTER-C, Taylor Primary Care Provider Renetta PARDO-C, Taylor Referring Provider Jonny Marino MD Attending Provider Dr. Montrell Zapien DO Attending Provider [phone] Dr. Montrell Zapien DO Emergency Provider Dr. Mehrdad Norris MD Attending Provider Dr. Mehrdad Norris MD Emergency Provider Dr. James Smith DO Attending Provider Dr. James Smith DO Other Provider Renetta AIRCRAFT STRUCTURAL FITTER-C, Taylor Attending Provider Gareth AIRCRAFT STRUCTURAL FITTER-C, Briseyda Attending Provider Gareth AIRCRAFT STRUCTURAL FITTER-C, Briseyda Referring Provider [facility] Carolyn West Referring Provid er Wilfred AIRCRAFT STRUCTURAL FITTER-C, Judith Attending Provider Beam AIRCRAFT STRUCTURAL FITTER-C, Latonyalun Attending Provider Beam AIRCRAFT STRUCTURAL FITTER-C, Zebulun Referring Provider Renetta AIRCRAFT STRUCTURAL FITTER-C, Taylor Primary Care Provider Myrna BURNETT, Dr. Cronin Attending Provider Myrna BURNETT, Dr. Cronin Emergency Provider Sarah AMAYA, Dr. Ramirez Attending Provider Renetta AIRCRAFT STRUCTURAL FITTER-C, Taylor Referring Provider Sarah AMAYA, Dr. Ramirez Other Provider [phone] Renetta AIRCRAFT STRUCTURAL FITTER-C, Taylor Attending Provider Servin AIRCRAFT STRUCTURAL FITTER-C, Briseyda Attending Provider [phone] Servin AIRCRAFT STRUCTURAL FITTER-C, Briseyda Referring Provider [facility] Brett Referring Provid er Wilfred AIRCRAFT STRUCTURAL FITTER-C, Judith Attending Provider Beam AIRCRAFT STRUCTURAL FITTER-C, Zebulun Attending Provider Beam AIRCRAFT STRUCTURAL FITTER-C, Zebulun Referring Provider Renetta AIRCRAFT STRUCTURAL FITTER-C, Taylor Primary Care Provider Wilfred AIRCRAFT STRUCTURAL FITTER-C, Judith Referring Provider Jcarlos AIRCRAFT STRUCTURAL FITTER-C, Jodie Attending Provider Shannon BURNETT, Dr. Dee Attending Provider Renetta AIRCRAFT STRUCTURAL FITTER-C, Taylor Primary Care Provider Renetta AIRCRAFT STRUCTURAL FITTER-C, Taylor Referring Provider Dr. James Smith DO Attending Provider Dr. James Smith DO Other Provider [phone] Renetta AIRCRAFT STRUCTURAL FITTER-C, Taylor Primary Care Provider Renetta AIRCRAFT STRUCTURAL FITTER-C, Taylor Referring Provider Wilfred AIRCRAFT STRUCTURAL FITTER-C, Judith Attending Provider Renetta AIRCRAFT STRUCTURAL FITTER-C, Taylor Attending Provider Ryan Lozano Attending Provider [phone] Gilda Drake Attending Unavailable [facility], [facility] Unavailable [facility], [facility] Referring Unavailabl e Friend, James Attending Un[facility] Primary Care Unavailabl e Renetta VSC, [facility] Referring Unavailabl e Renetta C, [facility] Primary Care Unavailabl e Friend, James Attending Unavailable [facility], [facility] Primary Care Unavailabl e WilfredJudith arias Attending Unavailable Wilfred, Judith Referring Unavailable Elyssa Arguello Attending Unavailable [facility], [facility] Unavailable [facility], [facility] Referring Unavailable Renetta C, [facility] Primary Care Unavailabl e Renetta VSC, [facility] Referring Unavailabl e Jodie Garber Attending Unavailable [facility] Referring Unavailabl e Renetta VSC, Taylor Attending Unavailabl e Renetta VSC, [facility] Primary Care Unavailabl e Renetta VSC, [facility] Primary Care Unavailabl e Elyssa Arguello Referring Unavailable Elyssa Arguello Attending Unavailable [facility], [facility] Primary Care Unavailabl e Beam, Zebulun Referring Unavailable Beam Zebutr Attending Unavailable Judith Hardin Attending Unavailable [facility], [facility] Primary Care Unavailabl e WilfredJudith Referring Unavailable [facility], Taylor Attending Unavailabl [facility], [facility] Unavailable [facility], [facility] Primary Care Unavailabl e Montrell Zapien Attending Unavailable Renetta VS, [facility] Primary Care Unavailabl e Luiz Ortega Attending Unavailable [facility], [facility] Referring Unavailabl e WilfredJudith arias Attending Unavailable Renetta VSC, [facility] Primary Care Unavailabl e Renetta VSC, [facility] Referring Unavailabl e Renetta VSC, [facility] Primary Care Unavailabl e Ryan Lozano Attending Unavailable [facility] Primary Care Unavailabl e WilfredJudith arias Attending Unavailable [facility], [facility] Referring Unavailable Renetta VSC, [facility] Primary Care Unavailabl e WilfredJudith Attending Unavailable Wilfred, Judith Referring Unavailable Renetta VSC, Taylor Attending Unavailabl [facility], [facility] Unavailable Elyssa Arguello Referring Unavailable Elyssa Arguello Attending Unavailable Renetta VSC, [facility] Primary Care Unavailabl e Renetta VSC, Taylor Attending Unavailabl e Renetta VSC, [facility] Primary Care Unavailabl e Renetta VSC, Taylor Referring Unavailabl e Jonny Marino Attending Unavailable Renetta VSC, Taylor Primary Care Unavailabl e Renetta VSC, Taylor Referring Unavailabl e Jonny Marino Attending Unavailable Renetta VSC, Taylor Primary Care Unavailabl e Renetta VSC, Taylor Primary Care Unavailabl e Renetta VSC, Taylor Referring Unavailabl e Friend, James Attending Unavailable Friend, James Consulting Unavailable Renetta VSC, [facility] Primary Care Unavailabl e Renetta VSC, Taylor Referring Unavailabl e Friend, James Attending Unavailable Friend, James Consulting Unavailable Renetta VSC, Taylor Referring Unavailabl e Renetta VSC, [facility] Primary Care Unavailabl Judith Crzu Attending Unavailable Renetta VSC, Taylor Referring Unavailabl e Renetta VSC, [facility] Primary Care Unavailabl e Jonny Marino Attending Unavailable Renetta [facility]SC, [facility] Primary Care Unavailabl e Servin VSC, Briseyda Referring Unavailable Servin VSC, Briseyda Attending Unavailable Renetta VSC, [facility] Primary Care Unavailabl e Mehrdad Norris Attending Unavailable Allergies Allergy Classification Reported Allergen(s) Allergy Type Date of Onset Reaction(s) Facility Aminophylline (1 source) Aminophylline Drug Allergy Unknown [facility] Amphetamine aspartate / Amphetamine Sulfate / Dextroamphetamine saccharate / Dextroamphetamine Sulfate (1 source) Amphetamine aspartate / Amphetamine Sulfate / Dextroamphetamine saccharate / Dextroamphetamine Sulfate Drug Allergy Unknown [facility] Povidone-Iodine (2 sources) Povidone-Iodine Drug Allergy Unknown [facility] Shellfish (1 source) Shellfish Food Allergy Unknown [facility] Tetracyclines (antibiotic) (1 source) Tetracycline Drug Allergy Unknown [facility] Unclassified (5 sources) Seafood Unknown [facility] (20 sources) Aminophylline; Translations: [aminophylline] Drug Allergy 04-10-2 022 Unknown, Swelling [facility] Work Phone: Comment on above: added category Drug to ensure proper interaction/duplication/allergy checking (4 sources) Amphetamine / Dextroamphetamine; Translations: [amphetamine-dextroa mphetamine] Drug Allergy Unknown [facility] Work Phone: Comment on above: replaces free text a llergy (20 sources) Povidone-Iodine; Translations: [povidone iodine topical] Drug Allergy Unknown [facility] Work Phone: Comment on above: added category Drug to ensure proper interaction/duplication/allergy checking (4 sources) Shellfish Drug allergy [facility] Work Phone: (4 sources) Sulfonamides (Antibiotic); Translations: [sulfa drugs] Propensity to adverse reactions to drug Unknown [facility] Work Phone: Comment on above: replaces free text a llergy (20 sources) Tetracycline; Translations: [tetracycline] Drug Allergy Rash [facility] Work Phone: (15 sources) Selective beta-2 adrenoceptor stimulants; Translations: [BETA-ADRENERGIC AGENTS] Propensity to adverse reactions [facility] (20 sources) Sulfonamides (Antibiotic); Translations: [SULFA (SULFONAMIDE ANTIBIOTICS)] Propensity to adverse reactions Unknown [facility] (18 sources) Iodine And Iodide Containing Products; Translations: [IODINE AND IODIDE CONTAINING PRODUCTS] Propensity to adverse reactions [facility] (20 sources) Amphetamine Drug Allergy Other [facility] (20 sources) Dextroamphetamine Drug Allergy Other [facility] (20 sources) Iodine; Translations: [IODINE] Drug Allergy Unknown [facility] (20 sources) Shellfish; Translations: [shellfish derived] Allergy to substance Swelling [facility] (20 sources) Iodinated Contrast Media; Translations: [Iodinated Contrast Media] Allergy to substance Swelling [facility] (14 sources) Amphetamine aspartate / Amphetamine Sulfate / Dextroamphetamine saccharate / Dextroamphetamine Sulfate; Translations: [DEXTROAMPHETAMINE-A MPHETAMINE] Drug Allergy Unknown [facility] (20 sources) Sulfonamides (Antibiotic) Allergy to substance Swelling [facility] (16 sources) Allantoin Drug Allergy [facility] (16 sources) Aloe vera preparation Drug Allergy [facility] (16 sources) Camphor Drug Allergy Swelling [facility] (16 sources) CHAMOMILE GIRON Drug Allergy [facility] (16 sources) dimethicone Drug Allergy [facility] (16 sources) Menthol Drug Allergy [facility] (16 sources) meradimate Drug Allergy [facility] (16 sources) oxybenzone Drug Allergy [facility] (16 sources) phenol Drug Allergy [facility] (17 sources) herbal complex no.57; Translations: [herbal complex no.57] Propensity to adverse reactions [facility] (16 sources) homosalate Propensity to adverse reactions [facility] (16 sources) octinoxate Propensity to adverse reactions [facility] (16 sources) octyl salicylate Propensity to adverse reactions [facility] (16 sources) padimate O Propensity to adverse reactions [facility] (17 sources) petrolatum,hydrophil ic; Translations: [petrolatum,hydrophi lic] Propensity to adverse reactions [facility] (15 sources) busPIRone Drug Allergy Other [facility] Comment on above: MAKES ME FEEL OUT O F CONTROL AND DRUNK (13 sources) Tetracyclines Allergy to substance Rash [facility] (3 sources) Selective beta-2 adrenoceptor stimulants Propensity to adverse reactions [facility] (6 sources) dulaglutide Drug Allergy Vomiting [facility] (1 source) Allantoin Drug Allergy [facility] Repository (1 source) Aloe Extract Drug Allergy [facility] Repository (1 source) Aminophylline Drug Allergy [facility] Repository (1 source) Amphetamine Drug Allergy [facility] Repository (1 source) busPIRone Drug Allergy [facility] Repository (1 source) Camphor Drug Allergy [facility] Repository (1 source) Dextroamphetamine Drug Allergy [facility] Repository (1 source) dimethicone Drug Allergy [facility] Repository (1 source) dulaglutide Drug Allergy [facility] Repository (1 source) Iodine Drug Allergy [facility] Repository (1 source) Menthol Drug Allergy [facility] Repository (1 source) oxybenzone Drug Allergy [facility] Repository (1 source) phenol Drug Allergy [facility] Repository (1 source) Povidone-Iodine Drug Allergy [facility] Repository (1 source) Sulfonamides (Antibiotic) Drug allergy (disorder) [facility] Repository (1 source) Tetracycline Drug Allergy [facility] Repository (1 source) Tetracyclines Drug allergy (disorder) [facility] Repository (1 source) chamomile flower Drug allergy (disorder) [facility] Repository (1 source) homosalate Drug allergy (disorder) [facility] Repository (1 source) padimate O Drug allergy (disorder) [facility] Repository (1 source) octinoxate Drug allergy (disorder) [facility] Repository (1 source) octyl salicylate Drug allergy (disorder) [facility] Repository (1 source) meradimate Drug allergy (disorder) 025 [facility] Repository Medications Current Medications Medication Drug Class(es) Dates Sig (Normalized) Sig (Original) 8 hr acetaminophen 650 mg extended release oral tablet (14 sources) Start: 06-23-2023 acetaminophen 650 mg CR tablet Take by mouth. 06/23/2023 Active Start: 06-23-2023 End: 06-14-2024 Acetaminophen (Tylenol Arthr itis Pain) 650 mg tablet extended release Discontinued 1300 mg PO Q12H June 23, 2023 1:00am June 14, 2024 3:43pm albuterol 0.83 mg/ml inhalation solution (20 sources) beta2-Adrenergic Agonist Start: 08-10-2024 take 2.5 mg by inhalation every four hours as needed for wheezing Albuterol Sulfate 2.5 mg /3 mL (0.083 %) solution for nebulization Active 2.5 mg INHALATION EVERY 4 HOURS NEEDED as needed for shortness of breath or wheezing August 10, 2024 12:00am Start: 04-08-2023 End: 03-01-2024 take 2.5 mg by inhalation every four hours as needed for wheezing Albuterol Sulfate 2.5 mg /3 mL (0.083 %) solution for nebulization Discontinued 2.5 mg INHALATION Q4H as needed for shortness of breath or wheezing April 08, 2023 1:00am March 01, 2024 2:40pm Start: 12-25-2021 End: 01-24-2022 take 2 puff(s) by inhalation every four hours as needed for wheezing albuterol HFA (PROVENTIL HFA, VENTOLIN HFA) 90 mcg/actuation inhaler Inhale 2 Puffs as instructed every 4 hours as needed for wheezing/shortness of breath. 1 Inhaler 5 12/25/2021 Active Start: 12-21-2021 End: 12-21-2021 take 2 puff(s) by inhalation every four hours as needed for wheezing albuterol HFA (PROVENTIL HFA, VENTOLIN HFA) 90 mcg/actuation inhaler Inhale 2 Puffs as instructed every 4 hours as needed for wheezing/shortness of breath. 1 Inhaler 2 12/21/2021 Active Start: 07-16-2021 take 1 puff(s) by in halation every six hours Albuterol Sulfate Active 2 PUFF INHALATION EVERY 6 HOURS 8.July 16, 2021 12:59pm Start: 07-16-2021 Albuterol Sulf ate 90 mcg/actuation HFA aerosol inhaler Active 2 NMA INHALATION EVERY 6 HOURS as needed for shortness of breath or wheezing .July 16, 2021 1:00am Start: 07-16-2021 take 1 puff(s) by in halation every six hours Albuterol Sulfate Active 2 PUFF INHALATION EVERY 6 HOURS .July 16, 2021 1:00am Start: 06-27-2021 take 1 dose by inhal ation every four hours as needed albuterol 2.5 mg/3 mL (0.083%) inhalation solution Dose : 2.5 mg = 3 mL, Inhalation, q4h, PRN for wheezing, # 60 EA, 0 Refill(s), Asthma Start Date: 06/27/21 Status: Ordered Start: 08-16-2015 take 1 dose by inhal ation every six hours as needed albuterol 2.5 mg/3 mL (0.083%) inhalation solution Dose : 5 mg = 6 mL, Inhalation, q6h, PRN as needed for wheezing, 0 Refill(s) Start Date: 08/16/15 Status: Ordered Start: 08-01-2015 take 2 puff(s) by in halation four times daily as needed for wheezing Ventolin HFA MDI (90 mcg/inh) inhalation aerosol 2 puff(s), Inhalation, QID, PRN as needed for wheezing, 0 Refill(s) Start Date: 08/01/15 Status: Ordered take 3 mL by inhalat ion every six hours as needed albuterol 2.5 mg/3 mL (0.083%) inhalation solution ; 3 milliliter(s) inhaled every 6 hours, As Needed Quantity: 0 Refills: 0 Ordered: 19-Sep-2020 Reji Sanchez Generic Substitution Allowed take 2 puff(s) by in halation every six hours as needed Ventolin HFA 90 mcg/inh inhalation aerosol ; 2 puff(s) inhaled every 6 hours, As Needed Quantity: 0 Refills: 0 Ordered: 19-Sep-2020 Reji Sanchez Generic Substitution Allowed Comment on above: Inhale 2 Puffs as in structed every 4 hours as needed for wheezing/shortness of breath. atorvastatin 20 mg oral tablet (20 sources) HMG-CoA Reductase Inhibitor Start: take 1 tablet by mouth at bedtime Atorvastatin 20 mg tablet Active 20 mg PO AT BEDTIME October 28, 2023 12:00am Start: 11-25-2022 End: 03-01-2024 Atorvastatin 40 mg tablet Discontinued 20 mg PO AT BEDTIME November 25, 2022 12:00am March 01, 2024 2:40pm Start: 11-25-2022 take 20 mg by mouth at bedtime Atorvastatin Active 20 MG PO AT BEDTIME November 25, 2022 12:00am Start: 03-06-2022 End: 03-06-2023 take 40 mg by mouth once daily atorvastatin Discontinu ed 40 mg PO DAILY March 06, 2022 12:00am March 06, 2023 8:47am Start: 03-06-2022 atorvastatin A ctive 40 MG DAILY March 05, 2022 11:00pm Start: 03-06-2022 atorvastatin A ctive 40 MG DAILY March 06, 2022 12:00am Comment on above: Take 40 mg by mouth daily at bedtime. azithromycin 250 mg oral tablet (20 sources) Macrolide Antimicrobial Start: take 250 mg by mouth once daily Azithromycin Active 250 MG PO DAILY February 21, 2022 12:00am Start: 07-15-2021 End: 07-16-2021 Azithromycin 250 mg tablet D iscontinued July 15, 2021 1:00am July 16, 2021 12:54pm Start: 07-15-2021 End: 07-16-2021 Azithromycin Discontinued Fe bruary 2021 1:00am July 16, 2021 12:54pm Start: 06-27-2021 End: 07-01-2021 azithromycin 250 mg oral tab let Dose : 250 mg = 1 tab(s), Oral, qDay, X 4 day(s), # 4 tab(s), 0 Refill(s), 07/01/21 17:42:00 EST, Asthma, 68 Start Date: 06/27/21 Stop Date: 07/01/21 Status: Ordered benzonatate 100 mg oral capsule (20 sources) Non-narcotic Antitussive Start: 06-14-2024 take 1 capsule by mouth twice daily as needed for cough Benzonatate 100 mg capsule Active 100 mg PO TWICE A DAY as needed for cough June 14, 2024 1:00am Start: 03-07-2022 take 200 mg by mouth three times daily Benzonatate Active 200 MG PO THREE TIMES A DAY March 07, 2022 12:00am Start: 08-19-2021 take 200 mg by mouth twice daily Benzonatate Active 200 MG PO TWICE A DAY August 19, 2021 6:03pm Start: 08-19-2021 take 100 mg by mouth three times daily Benzonatate Active 100 MG PO THREE TIMES A DAY August 19, 2021 5:59pm 12 hr buPROPion hydrochloride 150 mg extended release oral tablet (17 sources) Aminoketone Start: 12-10-2000 take 1 tablet by mouth twice daily WELLBUTRIN SR TABLET SA 150MG PO 1 tab bid 0 12/10/2000 Active Comment on above: 1 tab bid cetirizine hydrochloride 10 mg oral tablet (20 sources) Histamine-1 Receptor Antagonist Start: 12-10-2000 take 1 tablet by mouth twice daily Cetirizine 10 mg tablet Active 10 mg PO TWICE A DAY March 06, 2023 12:00am Start: 12-10-2000 take 1 tablet by lynette once daily ZYRTEC TABLET 10MG PO 1 qd 0 12/10/2000 Active Comment on above: 1 qd clobetasol propionate 0.5 mg/ml topical solution (12 sources) Corticosteroid Start: 12-30-2022 Clobetasol Propionate (TEMOVATE) 0.05 % external solution Apply 1 application to affected area twice daily. 50 mL 12/30/2022 Active Start: 12-25-2021 End: 01-24-2022 clobetasol (TEMOVATE) 0.05 % cream Apply to affected area once daily as needed. 15 g 1 12/25/2021 01/24/2022 Active Start: 12-24-2021 End: 12-25-2021 clobetasol (TEMOVATE) 0.05 % cream Apply to affected area once daily as needed. 1 g 0 12/24/2021 12/25/2021 Discontinued Start: 05-29-2021 clobetasol (TE MOVATE) 0.05 % cream Apply to affected area. 0 05/29/2021 Active Comment on above: Apply to affected ar ea. Apply to affected ar ea once daily as needed. Apply 1 application to affected area twice daily. cyclobenzaprine hydrochloride 5 mg oral tablet (20 sources) Muscle Relaxant Start: 08-14-19 take 1 tablet by mouth twice daily Cyclobenzaprine 5 mg tablet Active 5 mg PO TWICE A DAY August 13, 2024 12:00am Start: 12-25-2022 take 1 tablet by lynette twice daily as needed for pain cyclobenzaprine (FLEXERIL) 5 mg tablet TAKE ONE TABLET BY MOUTH TWICE DAILY NEEDED FOR muscle pain 12/25/2022 Active Start: 06-14-2022 End: 03-06-2023 take 1 tablet by mouth three times daily as needed for muscle spasms Cyclobenzaprine 10 mg tablet Discontinued 10 mg PO THREE TIMES A DAY as needed for Muscle Spasm June 14, 2022 1:00am March 06, 2023 8:49am take 1 tablet by [facility] [place] three times daily cyclobenzaprine 5 mg oral tablet ; 1 tab(s) orally 3 times a day Quantity: 0 Refills: 0 Ordered: 19-Sep-2020 Reji Sanchez Generic Substitution Allowed Comment on above: TAKE ONE TABLET BY [facility] TWICE DAILY NEEDED FOR muscle pain desonide 0.5 mg/ml topical cream (9 sources) Corticosteroid Start: 12-12-19 desonide (TRIDESILON) 0.05 % cream apply topically ONCE DAILY UNDER breast NEEDED FOR itch/irritation 12/11/2022 Active Comment on above: apply topically ONCE DAILY UNDER breast NEEDED FOR itch/irritation diclofenac sodium 0.01 mg/mg topical gel (4 sources) Nonsteroidal Anti-inflammatory Drug Start: 08-18-19 Diclofenac Sodium (Arthritis Pain (Diclofenac)) 1 % gel Active 2 g TOPICAL .COMPLEX as needed for pain, swelling, stiffness August 17, 2024 12:00am 2 grams topically 4 x /daily as needed PRN; apply to single hip diphenhydrAMINE (1 source) Histamine-1 Receptor Antagonist Start: 06-27-19 End: 07-04-19 take 2 doses by mouth four times daily as needed BMXN Susp. (Rztcbdyw-Kvtpoj-Q ylocaine-Nystatin) Dose = 2 tablespoonful(s), Oral, QID, PRN swish and swallow for mouth sores, X 7 day(s), # 250 mL, 0 Refill(s), Compound, Asthma Start Date: 06/27/21 Stop Date: 07/04/21 Status: Ordered fluticasone propionate 0.05 mg/actuat metered dose nasal spray (14 sources) Corticosteroid Start: 08-14-19 Fluticasone Propionate 50 mcg/actuation spray,suspension Active 2 NMA INTRANASAL DAILY as needed for congestion August 13, 2024 12:00am administer into each nostril Start: 04-12-2024 take 2 spray(s) nasa l route once daily fluticasone (FLONASE) 50 mcg/actuation nasal spray SPRAY TWO SPRAYS IN EACH NOSTRIL EVERY DAY 04/12/2024 Active Start: 10-01-2023 End: 03-01-2024 Fluticasone Propionate 50 mcg/actuation spray,suspension Discontinued 2 NMA INTRANASAL DAILY October 01, 2023 12:00am March 01, 2024 2:41pm 120 actuat fluticasone propionate 0.045 mg/actuat / salmeterol 0.021 mg/actuat metered dose inhaler (20 sources) Corticosteroid, beta2-Adrenergic Agonist Start: 12-21-2021 take 2 puff(s) by inhalation twice daily fluticasone-salmeterol HFA (ADVAIR HFA) 45-21 mcg/actuation inhaler Inhale 2 Puffs as instructed twice daily. May substitute for insurance coverage 1 Inhaler 2 12/21/2021 Active Start: 12-21-2021 take 2 puff(s) by in halation twice daily fluticasone-salmeterol HFA (ADVAIR HFA) 45-21 mcg/actuation inhaler Inhale 2 Puffs as instructed twice daily. May substitute for insurance coverage 1 Inhaler 2 12/21/2021 Active Start: 10-04-2021 take 1 puff(s) by in halation twice daily Fluticasone Propion-Salmeterol (Advair Hfa) 45-21 mcg/actuation HFA aerosol inhaler Active 1 PUFF INHALATION TWICE A DAY October 04, 2021 10:22am Start: 10-04-2021 take 1 puff(s) by in halation twice daily Fluticasone Propion-Salmeterol (Advair Hfa) 45-21 mcg/actuation HFA aerosol inhaler Active 2 PUFF INHALATION TWICE A DAY October 03, 2021 11:00pm Start: 10-04-2021 take 1 puff(s) by in halation twice daily Fluticasone Propion-Salmeterol (Advair Hfa) 45-21 mcg/actuation HFA aerosol inhaler Active 2 PUFF INHALATION TWICE A DAY October 04, 2021 12:00am Start: 10-04-2021 take 1 puff(s) by in halation twice daily Fluticasone Propion-Salmeterol (Advair Hfa) 45-21 mcg/actuation HFA aerosol inhaler Active 1 PUFF INHALATION TWICE A DAY October 04, 2021 12:00am End: 12-21-2021 take 2 puff(s) by inhalation twice daily fluticasone-salmeterol HFA (ADVAIR HFA) 45-21 mcg/actuation inhaler Inhale 2 Puffs as instructed twice daily. May substitute for insurance coverage 0 12/21/2021 Discontinued Comment on above: Inhale 2 Puffs as in structed twice daily. May substitute for insurance coverage Fluticasone-Umeclidin -Vilanter [Fluticasone Fur. 200 Mcg-Umeclid 62.5 Mcg-Vilant 25 Mcg Inhalat.Powder] (14 sources) Start: 04-08-2023 Jhqmprhpfsb-Adllwsxrq-Ig lanter [Fluticasone Fur. 200 Mcg-Umeclid 62.5 Mcg-Vilant 25 Mcg Inhalat.Powder] (Fluticasone Fur. 200 Mcg-Umeclid 62.5 Mcg-Vilant ) 200-62.5-25 mcg blister with device Active 1 NMA INHALATION Q24H April 08, 2023 1:00am Start: 04-08-2023 Fluticasone-Um eclidin-Vilanter [Fluticasone Fur. 200 Mcg- Umeclid 62.5 Mcg-Vilant 25 Mcg Inhalat.Powder] (Fluticasone Fur. 200 Mcg-Umeclid 62.5 Mcg-Vilant ) 200-62.5-25 mcg blister with device Active 1 NMA INHALATION Q24H April 08, 2023 12:00am Start: 04-08-2023 Fluticasone-Um eclidin-Vilanter [Fluticasone Fur. 200 Mcg- Umeclid 62.5 Mcg-Vilant 25 Mcg Inhalat.Powder] (Fluticasone Fur. 200 Mcg-Umeclid 62.5 Mcg-Vilant ) 200-62.5-25 mcg blister with device Active 1 INH INHALATION Q24H April 08, 2023 1:00am Start: 04-08-2023 Fluticasone-Um eclidin-Vilanter [Fluticasone Fur. 200 Mcg- Umeclid 62.5 Mcg-Vilant 25 Mcg Inhalat.Powder] (Fluticasone Fur. 200 Mcg-Umeclid 62.5 Mcg-Vilant ) 200-62.5-25 mcg blister with device Active 1 INH INHALATION Q24H April 08, 2023 12:00am 12 hr guaiFENesin 1200 mg extended release oral tablet (2 sources) Start: 07-16-2021 take 1 tablet by mouth twice daily, then take 1 tablet by mouth every twelve hours Guaifenesin (Mucus Relief Er) 1,200 mg Tablet Extended Release 12hr Active 1200 MG PO TWICE A DAY July 16, 2021 12:53pm hydrOXYzine hydrochloride 25 mg oral tablet (20 sources) Antihistamine Start: 06-23-2023 take 2 tablets by mouth at bedtime Hydroxyzine Hcl 25 mg tablet Active 50 mg PO AT BEDTIME June 23, 2023 1:00am Start: 06-23-2023 take 50 mg by mouth at bedtime Hydroxyzine Hcl Active 50 MG PO AT BEDTIME June 23, 2023 1:00am Start: 11-04-2022 End: 09-02-2024 take 1 tablet by mouth three times daily Hydroxyzine Hcl 25 mg tablet Active 25 mg PO THREE TIMES A DAY September 02, 2024 2:15pm Start: 11-04-2022 take 25 mg by mouth twice daily as needed Hydroxyzine Hcl Active 25 MG PO TWICE DAILY NEEDED November 03, 2022 11:00pm Start: 10-09-2021 take 25 mg by mouth every eight hours Hydroxyzine Pamoate Active 25 MG PO EVERY 8 HOURS October 09, 2021 12:00am Start: 07-15-2021 hydrOXYzine pa moate (VISTARIL) 25 mg capsule Take 50 mg by mouth. 07/15/2021 Active Start: 07-15-2021 End: 06-17-2024 hydrOXYzine HCl (ATARAX) 50 mg tablet 10/16/2021 06/17/2024 Discontinued (Discontinued by another Health Care Provider) Start: 07-15-2021 take 50 mg by mouth twice missy y Hydroxyzine Hcl Active 50 MG PO TWICE A DAY July 15, 2021 1:00am Start: 07-15-2021 hydrOXYzine HC l (ATARAX) 50 mg tablet Comment on above: Take 50 mg by mouth. Insulin Glargine-Yfgn (6 sources) Start: 10-09-2021 Insulin Glargi ne-Yfgn Active 18 UNIT SC DAILY 5.4 October 09, 2021 10:21am Start: 10-09-2021 Insulin Glargi ne-Yfgn Active 18 UNIT SC DAILY 5.4 October 09, 2021 12:00am lactobacillus acidophilus [id number] unt / pectin 100 mg oral tablet (9 sources) Start: 10-09-2021 take 1 tablet by mouth three times daily Acidophilus-Pectin, [place] Active 1 TABLET PO THREE TIMES A DAY 21 October 09, 2021 12:00am Lanolin Mnchqnn-Yp-D.Pet-[place] [Lanolin Alcohols-Mineral Oil-W.Petrolatum-[place] in Topical Cream] (Lanolin Alcohols-Mineral ) cream (14 sources) Start: 04-08-2023 Lanolin Afdkacn-Xz-A.Pet-[place] [Lanolin Alcohols-Mineral Oil-W.Petrolatum-Ceresin Topical Cream] (Lanolin Alcohols-Mineral ) cream Active 1 NMA TOPICAL DAILY April 08, 2023 1:00am Start: 04-08-2023 Lanolin Alcoho l-Mo-W.Pet-[place] [Lanolin Alcohols-Mineral Oil-W.Petrolatum-Ceresin Topical Cream] (Lanolin Alcohols-Mineral ) cream Active 1 NMA TOPICAL DAILY April 08, 2023 12:00am Start: 04-08-2023 Lanolin Alcoho l-Mo-W.Pet-[place] [Lanolin Alcohols-Mineral Oil-W.Petrolatum-Ceresin Topical Cream] (Lanolin Alcohols-Mineral ) cream Active 1 APPLIC TOPICAL DAILY April 08, 2023 1:00am Start: 04-08-2023 Lanolin Alcoho l-Mo-W.Pet-[place] [Lanolin Alcohols-Mineral Oil-W.Petrolatum-Ceresin Topical Cream] (Lanolin Alcohols-Mineral ) cream Active 1 APPLIC TOPICAL DAILY April 08, 2023 12:00am lansoprazole 30 mg delayed release oral capsule (17 sources) Proton Pump Inhibitor Start: 12-10-[address] 30MG PO mineral oilm 0 12/10/2000 Active Comment on above: mineral oilm levoFLOXacin 500 mg oral tablet (6 sources) Quinolone Antimicrobial Start: 10-09-2021 take 500 mg by mouth once daily Levofloxacin Active 500 MG PO DAILY October 09, 2021 12:00am meloxicam 7.5 mg oral tablet (3 sources) Nonsteroidal Anti-inflammatory Drug Start: 03-06-2023 take 7.5 mg by mouth once daily Meloxicam Active 7.5 MG PO DAILY March 05, 2023 11:00pm metFORMIN hydrochloride 500 mg oral tablet (20 sources) Biguanide Start: 03-12-2024 take 1 tablet by mouth twice daily Metformin 500 mg tablet Active 500 mg PO TWICE A DAY March 12, 2024 12:00am Start: 07-15-2021 End: 01-24-2022 take 1 tablet by mouth once daily at breakfast metFORMIN ER (GLUCOPHAGE XR) 500 mg 24 hr tablet Take 1 tablet by mouth daily with breakfast. 30 tablet 3 12/25/2021 Active Start: 07-15-2021 take 500 mg by mouth twice walker ly Metformin Active 500 MG PO TWICE A DAY July 15, 2021 1:00am Start: 08-10-2020 take 1 tablet by lynette th every twenty-four hours metFORMIN ER (GLUCOPHAGE XR) 500 mg 24 hr tablet Take by mouth. 0 08/10/2020 Active Comment on above: Take by mouth. Take 1 tablet by lynette th daily with breakfast. MINERIN CREME cream (3 sources) Start: 05-13-2024 MINERIN CREME cream apply to lower legs liberally twice daily 05/13/2024 Active naproxen 500 mg oral tablet (13 sources) Nonsteroidal Anti-inflammatory Drug Start: 06-14-2022 take 500 mg by mouth twice daily Naproxen Active 500 MG PO TWICE A DAY June 14, 2022 1:00am Start: 12-24-2021 End: 06-17-2024 take 0.5 tablet by mouth once daily as needed for pain naproxen (NAPROSYN) 500 mg tablet Take 0.5 tablets by mouth once daily as needed (for pain). Take with food 30 tablet 1 12/24/2021 06/17/2024 Discontinued (Discontinued by another Health Care Provider) Comment on above: Take 0.5 tablets by mouth once daily as needed (for pain). Take with food nefazodone hydrochloride 150 mg oral tablet (17 sources) Serotonin Reuptake Inhibitor Start: take 1 tablet by mouth once in the morning, then take 2 tablets by mouth once at bedtime SERZONE TABLET 150MG PO 1 q am, 2 q hs 0 12/10/2000 Active Comment on above: 1 q am, 2 q hs nystatin 100 unt/mg topical powder (8 sources) Polyene Antifungal Start: NYSTOP powder APPLY TO THE AFFECTED AREA(S) TWICE DAILY UNDER bilateral breasts 06/02/2024 Active Start: 10-30-2021 Nystatin Activ e 1 APPLIC TOPICAL TWICE A DAY October 30, 2021 12:00am omeprazole 40 mg delayed release oral capsule (20 sources) Proton Pump Inhibitor Start: 10-01-2023 End: 09-02-2024 take 1 capsule by mouth twice daily Omeprazole 40 mg capsule,delayed release(DR/EC) Active 40 mg PO TWICE A DAY September 02, 2024 2:44pm Start: 10-16-2021 End: 08-19-2023 take 1 capsule by mouth twice daily Omeprazole 40 mg capsule,delayed release(DR/EC) Discontinued 40 mg PO TWICE A DAY November 04, 2022 12:00am August 19, 2023 6:36am Start: 04-14-2019 omeprazole 40 mg oral delayed release capsule Dose : 40 mg = 1 cap(s), Oral, qHS Start Date: 04/14/19 Status: Ordered oxyCODONE hydrochloride 5 mg oral tablet (2 sources) Opioid Agonist Start: 08-26-2021 take 5 mg by mouth every six hours Oxycodone Active 5 MG PO EVERY 6 HOURS 12 August 26, 2021 11:30am permethrin 50 mg/ml topical cream (6 sources) Pyrethroid Start: 07-15-2022 Permethrin Act aram 1 APPLIC TOPICAL Q14D 60 July 15, 2022 1:00am apply second treatment 14 days after first treatment promethazine hydrochloride 12.5 mg oral tablet (9 sources) Phenothiazine Start: 05-13-2024 promethazine (PHENERGAN) 12.5 mg tablet TAKE ONE TABLET TWICE DAILY NEEDED FOR NAUSEA 05/13/2024 Active Start: 04-19-2024 End: 04-19-2024 take 1 tablet by mouth twice daily as needed for nausea Promethazine 12.5 mg tablet Discontinued 12.5 mg PO TWICE DAILY NEEDED as needed for nausea April 19, 2024 1:00am April 19, 2024 11:12pm propranolol hydrochloride 20 mg oral tablet (9 sources) beta-Adrenergic Jonathon Start: 03-12-2024 take 1 tablet by mouth twice daily Propranolol 20 mg tablet Active 20 mg PO TWICE A DAY March 12, 2024 12:00am sertraline 50 mg oral tablet (20 sources) Serotonin Reuptake Inhibitor Start: 12-04-2022 take 1 tablet by mouth once daily Sertraline 50 mg tablet Active 50 mg PO DAILY April 08, 2023 1:00am Comment on above: Take 1 tablet by lynette every afternoon. tiZANidine 4 mg oral tablet (3 sources) Central alpha-2 Adrenergic Agonist Start: 03-06-2023 take 4 mg by mouth twice daily Tizanidine Active 4 MG PO TWICE A DAY March 05, 2023 11:00pm traMADol hydrochloride 50 mg oral tablet (3 sources) Opioid Agonist Start: 04-08-2023 take 50 mg by mouth every six hours Tramadol Active 50 MG PO EVERY 6 HOURS April 08, 2023 12:00am traZODone hydrochloride 150 mg oral tablet (20 sources) Serotonin Reuptake Inhibitor Start: 07-15-2021 take 1 tablet by mouth at bedtime Trazodone 150 mg tablet Active 150 mg PO AT BEDTIME July 15, 2021 1:00am Start: 07-15-2021 take 225 mg by mouth at bedtim e Trazodone Active 225 MG PO AT BEDTIME July 15, 2021 1:00am Start: 08-01-2015 traZODone 150 mg oral tablet Dose : 225 mg = 1.5 tab(s), Oral, qHS, 0 Refill(s) Start Date: 08/01/15 Status: Ordered take 1.5 tablets by mouth once daily at bedtime traZODone 150 mg oral tablet ; 1.5 tab(s) orally once a day (at bedtime) Quantity: 0 Refills: 0 Ordered: 19-Sep-2020 Reji Sanchez Generic Substitution Allowed TRELEGY ELLIPTA 200-62.5-25 mcg inhalation powder (9 sources) Start: 12-09-2022 take 1 puff(s) by inhalation once daily TRELEGY ELLIPTA 200-62.5-25 mcg inhalation powder Inhale 1 Puff as instructed once daily. 12/09/2022 Active Start: 12-09-2022 take 1 puff(s) by in halation once daily TRELEGY ELLIPTA 200-62.5-25 mcg inhalation powder Inhale 1 Puff as instructed once daily. 0 12/09/2022 Active Comment on above: Inhale 1 Puff as ins tructed once daily. triamcinolone acetonide 1 mg/ml topical cream (9 sources) Corticosteroid Start: 03-30-2024 triamcinolone acetonide (KENALOG) 0.1 % cream apply TO TO RASH as needed AT LEGS, trunk. AVOID face & immediate fold AREAS TWICE DAILY 03/30/2024 Active Start: 10-01-2023 Triamcinolone Acetonide 0.1 % cream Active 1 NMA TOPICAL TWICE A DAY October 01, 2023 12:00am Completed/Discontinued Medications Medication Drug Class(es) Dates Sig (Normalized) Sig (Original) acetaminophen 325 mg / HYDROcodone bitartrate 5 mg oral tablet (20 sources) Opioid Agonist Start: 10-28-2023 End: 03-01-2024 Hydrocodone-Acetami nophen 5-325 mg tablet Discontinued 1 {tbl} PO EVERY 6 HOURS NEEDED as needed for Pain 10 October 28, 2023 March 01, 2024 2:41pm Start: 07-07-2023 End: 07-17-2023 Hydrocodone-Acetaminophen 5- 325 mg tablet Discontinued 1 {tbl} PO EVERY 4 HOURS NEEDED as needed for Pain 10 July 07, 2023 July 17, 2023 10:47am Start: 07-07-2023 End: 07-17-2023 take 1 tablet by mouth every four hours as needed Hydrocodone-Acetaminophen Discontinued 1 TABLET PO EVERY 4 HOURS NEEDED 10 July 07, 2023 July 17, 2023 10:47am Start: 01-01-2023 End: 03-06-2023 Hydrocodone-Acetaminophen 5- 325 mg tablet Discontinued 1 {tbl} PO EVERY 4 HOURS NEEDED as needed for Pain 10 January 01, 2023 March 06, 2023 8:49am Start: 01-01-2023 End: 03-06-2023 take 1 tablet by mouth every four hours as needed Hydrocodone-Acetaminophen Discontinued 1 TABLET PO EVERY 4 HOURS NEEDED 10 January 01, 2023 March 06, 2023 8:49am Start: 05-08-2022 take 1 tablet by lynette th every four hours as needed Hydrocodone-Acetaminophen Active 1 TABLE T PO EVERY 4 HOURS NEEDED 10 June 14, 2022 acetaminophen 325 mg / oxyCODONE hydrochloride 5 mg oral tablet (20 sources) Opioid Agonist Start: 10-01-2023 End: 10-28-2023 Oxycodone-Acetaminophen (Percocet) 5-325 mg tablet Discontinued 1 {tbl} PO Q8H as needed for pain 10 October 01, 2023 October 28, 2023 4:11pm Start: 10-01-2023 End: 10-28-2023 Oxycodone-Acetaminophen 5-32 5 mg tablet Discontinued 1 {tbl} PO EVERY 6 HOURS NEEDED October 01, 2023 12:00am October 28, 2023 4:11pm Start: 12-10-2000 End: 06-17-2024 take 1-2 tablets by mouth every four to six hours as needed for pain PERCOCET TABLET 5-325MG PO 1-2 tablets p o q 4-6 hrs prn pain 0 12/10/2000 06/17/2024 Discontinued (Discontinued by another Health Care Provider) Comment on above: 1-2 tablets po q 4-6 hrs prn pain amitriptyline hydrochloride 10 mg oral tablet (20 sources) Tricyclic Antidepressant Start: 07-15-2021 End: 06-17-2024 amitriptyline (ELAVIL) 10 mg tablet 2021 06/17/2024 Discontinued (Discontinued by another Health Care Provider) Start: 07-15-2021 take 20 mg by mouth three times daily Amitriptyline Active 20 MG PO THREE TIMES A DAY July 15, 2021 1:00am Start: 04-14-2019 amitriptyline 10 mg oral tablet Dose : 20 mg = 2 tab(s), Oral, TID Start Date: 04/14/19 Status: Ordered amoxicillin 875 mg / clavulanate 125 mg oral tablet (6 sources) Penicillin-class Antibacterial Start: 10-01-2023 End: 03-01-2024 Amoxicillin-Pot Clavulanate 875-125 mg tablet Discontinued 1 {tbl} PO TWICE A DAY October 01, 2023 12:00am March 01, 2024 2:40pm Benadryl Allergy (20 sources) Start: 03-06-2022 End: 03-06-2023 take 25 mg by mouth twice daily Benadryl Allergy Discontinued 25 mg PO TWICE A DAY March 06, 2022 12:00am March 06, 2023 8:51am allergies Start: 03-06-2022 End: 03-06-2023 take 25 mg by mouth twice daily Benadryl Allergy Discontinued 25 mg PO TWICE A DAY March 05, 2022 11:00pm March 06, 2023 7:51am allergies Start: 03-06-2022 End: 03-06-2023 take 25 mg by mouth twice daily Benadryl Allergy Discontinued 25 MG PO TWICE A DAY March 06, 2022 12:00am March 06, 2023 8:51am allergies Start: 03-06-2022 End: 03-06-2023 take 25 mg by mouth twice daily Benadryl Allergy Discontinued 25 MG PO TWICE A DAY March 05, 2022 11:00pm March 06, 2023 7:51am allergies Start: 03-06-2022 take 25 mg by mouth twice daily Benadryl Allergy Active 25 MG PO TWICE A DAY March 06, 2022 12:00am allergies Start: 03-06-2022 Benadryl Aller gy Active 25 MG TWICE A DAY March 05, 2022 11:00pm allergies Start: 03-06-2022 Benadryl Aller gy Active 25 MG TWICE A DAY March 06, 2022 12:00am allergies benztropine mesylate 1 mg oral tablet (20 sources) Anticholinergic, Antihistamine Start: 10-04-2021 End: 06-17-2024 benztropine (COGENTIN) 1 mg tablet 10/16/2021 06/17/2024 Discontinued (Discontinued by Patient) Start: 07-15-2021 End: 08-19-2021 Benztropine 1 mg tablet Disc ontinued 1 mg PO NEEDED as needed for anxiety July 15, 2021 1:00am August 19, 2021 5:56pm Start: 07-15-2021 End: 10-04-2021 take 1 tablet by mouth once daily Benztropine 1 mg tablet Discontinued 1 mg PO DAILY July 16, 2021 12:59pm October 04, 2021 10:22am budesonide 0.25 mg/ml inhalation suspension (12 sources) Corticosteroid Start: 04-16-2019 End: 06-17-2024 budesonide (PULMICORT) 0.5 mg/2 mL nebulizer solution Inhale 2 mL as instructed. 04/16/2019 06/17/2024 Discontinued (Discontinued by another Health Care Provider) Start: 04-16-2019 take 1 dose by inhal ation twice daily budesonide 0.5 mg/2 mL inhalation suspension Dose : 0.5 mg = 2 mL, Inhalation, BID, # 120 mL, 3 Refill(s) Start Date: 04/16/19 Status: Ordered take 2 mL by inhalat ion twice daily budesonide 0.5 mg/2 mL inhalation suspension ; 2 milliliter(s) inhaled 2 times a day Quantity: 0 Refills: 0 Ordered: 19-Sep-2020 Reji Sanchez Generic Substitution Allowed Comment on above: Inhale 2 mL as instr ucted. cephalexin 500 mg oral capsule (20 sources) Cephalosporin Antibacterial Start: 3 End: take 1 capsule by mouth every six hours Cephalexin 500 mg capsule Discontinued 500 mg PO EVERY 6 HOURS 05 10May 15, 2023 1:00am May 19, 2023 1:00am May 20, 2023 1:05am Start: 12-30-2022 End: 01-04-2023 take 1 capsule by mouth four times daily cephALEXin (KEFLEX) 500 mg capsule Take 1 capsule by mouth four times daily for 5 days. 20 capsule 0 12/30/2022 01/04/2023 Active Start: 05-08-2022 take 500 mg by mouth every six hours Cephalexin Active 500 MG PO EVERY 6 HOURS May 08, 2022 1:00am Start: 08-26-2021 take 500 mg by mouth every six hours Cephalexin Active 500 MG PO EVERY 6 HOURS August 26, 2021 11:31am Comment on above: Take 1 capsule by mo [facility] four times daily for 5 days. citalopram 40 mg oral tablet (20 sources) Serotonin Reuptake Inhibitor Start: 10-09-2021 End: 06-17-2024 citalopram (CELEXA) 40 mg tablet 10/16/2021 06/17/2024 Discontinued (Discontinued by another Health Care Provider) Start: 07-15-2021 take 60 mg by mouth once daily Citalopram Active 60 MG PO DAILY July 15, 2021 1:00am clindamycin 300 mg oral capsule (20 sources) Lincosamide Antibacterial Start: 10-01-2023 End: 03-01-2024 take 1 capsule by mouth every six hours Clindamycin Hcl (Cleocin Hcl) 300 mg capsule Discontinued 300 mg PO EVERY 6 HOURS October 28, 2023 12:00am March 01, 2024 2:40pm Start: 07-07-2023 End: 08-06-2023 take 1 capsule by mouth every six hours Clindamycin Hcl (Cleocin Hcl) 300 mg capsule Discontinued 300 mg PO EVERY 6 HOURS 40 July 07, 2023 1:00am August 06, 2023 10:30am Start: 04-08-2023 End: 05-07-2023 take 1 capsule by mouth twice daily Clindamycin Hcl (Cleocin Hcl) 300 mg capsule Discontinued 300 mg PO TWICE A DAY April 08, 2023 1:00am May 07, 2023 10:45am Start: 01-01-2023 End: 03-06-2023 take 3 capsules by mouth three times daily Clindamycin Hcl 150 mg capsule Discontinued 450 mg PO THREE TIMES A DAY 90 January 01, 2023 12:00am March 06, 2023 8:49am Start: 01-01-2023 End: 03-06-2023 take 450 mg by mouth three times daily Clindamycin Hcl Discontinued 450 MG PO THREE TIMES A DAY 90 January 01, 2023 12:00am March 06, 2023 8:49am Start: 02-04-2022 take 450 mg by mouth three times daily Clindamycin Hcl Active 450 MG PO THREE TIMES A DAY 90 February 04, 2022 12:00am Start: 12-10-2021 take 450 mg by mouth three times daily Clindamycin Hcl Active 450 MG PO THREE TIMES A DAY 45 December 10, 2021 12:00am clonazePAM 0.5 mg oral tablet (18 sources) Benzodiazepine Start: 08-10-2020 End: 06-17-2024 clonazePAM (KLONOPIN) 0.5 mg tablet Take by mouth. 08/10/2020 06/17/2024 Discontinued (Discontinued by another Health Care Provider) Start: 10-28-2012 Klonopin 0.5 m g oral tablet Dose : 0.5 mg = 1 tab(s), Oral, BID, 0 Refill(s) Start Date: 10/28/12 Status: Ordered Comment on above: Take by mouth. dapagliflozin 10 mg oral tablet (15 sources) Sodium-Glucose Cotransporter 2 Inhibitor Start: 10-01-19 End: 03-12-20 take 1 tablet by mouth once daily Dapagliflozin Propanediol (Farxiga) 10 mg tablet Discontinued 10 mg PO daily March 12, 2024 12:00am March 12, 2024 11:14am dicyclomine hydrochloride 20 mg oral tablet (19 sources) Anticholinergic Start: 05-03-20 End: 09-03-19 take 1 tablet by mouth three times daily as needed for pain Dicyclomine 20 mg tablet Discontinued 20 mg PO THREE TIMES A DAY as needed for abdominal pain June 14, 2024 3:44pm September 02, 2024 2:46pm Start: 03-12-2024 End: 06-14-2024 take 1 tablet by mouth twice daily as needed for pain Dicyclomine 20 mg tablet Discontinued 20 mg PO TWICE A DAY as needed for abdominal pain March 12, 2024 12:00am June 14, 2024 3:48pm Start: 11-05-2023 End: 12-05-2023 take 1 tablet by mouth three times daily dicyclomine (BENTYL) 20 mg tablet Take 1 tablet by mouth three times a day. 90 tablet 0 11/05/2023 12/05/2023 Active Dulaglutide (20 sources) GLP-1 Receptor Agonist Start: 08-06-2023 End: 03-01-2024 Dulaglutide (Dulaglutide 3 Mg/0.5 Ml Subcutaneous Pen Injector) 3 mg/0.5 mL pen injector Discontinued 3 mg SC MATA August 06, 2023 12:00am March 01, 2024 2:41pm Start: 08-06-2023 End: 03-01-2024 Dulaglutide (Dulaglutide 3 M g/0.5 Ml Subcutaneous Pen Injector) 3 mg/0.5 mL pen injector Discontinued 3 mg SC MATA August 05, 2023 11:00pm March 01, 2024 1:41pm Start: 08-06-2023 Dulaglutide (D ulaglutide 3 Mg/0.5 Ml Subcutaneous Pen Injector) 3 mg/0.5 mL pen injector Active 3 MG SC MATA August 06, 2023 12:00am Start: 04-08-2023 Dulaglutide (D ulaglutide 0.75 Mg/0.5 Ml Subcutaneous Pen Injector) 0.75 mg/0.5 mL pen injector Active 1.5 MG SC MATA April 08, 2023 1:00am Start: 12-25-2022 inject 0.75 mg by mata bcutaneous injection every week TRULICITY 0.75 mg/0.5 mL pen injector inject 0.75 mg subcutaneous every week as directed 12/25/2022 Active Comment on above: inject 0.75 mg subcu taneous every week as directed gabapentin 100 mg oral capsule (19 sources) Anti-epileptic Agent Start: End: take 1 capsule by mouth three times daily Gabapentin 100 mg capsule Discontinued 100 mg PO THREE TIMES A DAY September 02, 2024 2:17pm September 02, 2024 2:18pm Start: 06-14-2024 End: 09-02-2024 take 3 capsules by mouth three times daily Gabapentin 100 mg capsule Active 300 mg PO THREE TIMES A DAY September 02, 2024 2:18pm Start: 06-02-2024 take 1 capsule by mo [facility] three times daily gabapentin (NEURONTIN) 300 mg capsule Take 300 mg by mouth three times a day. 06/02/2024 Active Start: 03-12-2024 End: 06-14-2024 take 1 capsule by mouth three times daily Gabapentin 100 mg capsule Discontinued 100 mg PO THREE TIMES A DAY March 12, 2024 12:00am June 14, 2024 3:48pm haloperidol 5 mg oral tablet (20 sources) Typical Antipsychotic Start: 2021 End: 06-17-2024 haloperidol (HALDOL) 5 mg tablet 2021 06/17/2024 Discontinued (Discontinued by another Health Care Provider) Start: 07-15-2021 take 5 mg by mouth at bedtime Haloperidol Active 5 MG PO AT BEDTIME July 15, 2021 1:00am Start: 04-14-2019 haloperidol 10 mg oral tablet Dose : 10 mg = 1 tab(s), Oral, qHS Start Date: 04/14/19 Status: Ordered ibuprofen 800 mg oral tablet (20 sources) Nonsteroidal Anti-inflammatory Drug Start: 05-13-2023 End: 06-17-2023 take 1 tablet by mouth every eight hours Ibuprofen 800 mg tablet Discontinued 800 mg PO Q8H June 03, 2023 4:44pm June 17, 2023 4:47pm Start: 03-06-2022 End: 09-02-2024 take 500 mg by mouth every six hours as needed for pain ibuprofen Discontinued 500 mg PO EVERY 6 HOURS NEEDED as needed for Pain March 06, 2022 12:00am September 02, 2024 2:16pm Start: 03-06-2022 ibuprofen Acti ve 500 MG EVERY 6 HOURS NEEDED March 05, 2022 11:00pm Start: 03-06-2022 ibuprofen Acti ve 500 MG EVERY 6 HOURS NEEDED March 06, 2022 12:00am ketoconazole 20 mg/ml medicated shampoo (6 sources) Azole Antifungal Start: 10-01-2023 End: 03-01-2024 Ketoconazole 2 % shampoo Discontinued 1 NMA TOPICAL October 01, 2023 12:00am March 01, 2024 2:43pm ketorolac tromethamine 10 mg oral tablet (5 sources) Nonsteroidal Anti-inflammatory Drug, Cyclooxygenase Inhibitor Start: 12-10-2000 TORADOL TABLET 10MG PO q 6 h 0 12/10/2000 Active Comment on above: q 6 h lisinopril 10 mg oral tablet (6 sources) Angiotensin Converting Enzyme Inhibitor Start: 10-01-2023 End: 03-12-2024 take 1 tablet by mouth once daily Lisinopril 10 mg tablet Discontinued 10 mg PO DAILY October 01, 2023 12:00am March 12, 2024 11:13am LORazepam 1 mg oral tablet (15 sources) Benzodiazepine Start: 12-10-2000 End: 06-17-2024 take 1 tablet by mouth every eight hours ATIVAN TABLET 1MG PO 1 q 8h 0 12/10/2000 06/17/2024 Discontinued (Discontinued by another Health Care Provider) Comment on above: 1 q 8h Medrol Dosepak 4 mg oral tablet (4 sources) Start: 07-17-2020 End: 07-23-2020 Medrol Dosepak 4 mg oral tablet Per Dosepak Instructions, Oral, Daily, # 21 tab(s), 0 Refill(s), Pharmacy: [place] [id number], TMJ syndrome, 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, cm, 07/17/20 8:23:00 EST, Height, kg, 07/17/20 8:23:00 EST, Dosing Weight Start Date: 07/17/20 Stop Date: 07/23/20 Status: Ordered metoclopramide 10 mg oral tablet (19 sources) Dopamine-2 Receptor Antagonist Start: 04-19-2024 End: 09-02-2024 take 1 tablet by mouth every six hours as needed for nausea and vomiting Metoclopramide Hcl 10 mg tablet Discontinued 10 mg PO EVERY 6 HOURS as needed for nausea and vomiting September 02, 2024 1:38pm September 02, 2024 2:45pm Mineral Oil (15 sources) Start: 12-10-2000 End: 06-17-2024 MINERAL OIL OIL PO 2 tbs.qd 0 12/10/2000 06/17/2024 Discontinued (Discontinued by Patient) Start: 12-10-2000 MINERAL OIL OI L PO 2 tbs.qd 0 12/10/2000 Active Comment on above: 2 tbs.qd mupirocin 0.02 mg/mg topical ointment (6 sources) RNA Synthetase Inhibitor Antibacterial Start: 10-28-19 End: 03-01-20 Mupirocin 2 % ointment Discontinued 1 NMA TOPICAL THREE TIMES A DAY as needed for Acne October 28, 2023 4:11pm March 01, 2024 2:43pm ondansetron 4 mg disintegrating oral tablet (20 sources) Serotonin-3 Receptor Antagonist Start: 03-12-20 End: 09-03-19 take 1 tablet by mouth every eight hours as needed for nausea and vomiting Ondansetron 4 mg tablet,disintegrati ng Discontinued 4 mg PO Q8H as needed for nausea and vomiting June 14, 2024 3:45pm September 02, 2024 2:47pm Start: 11-05-2023 End: 02-03-2024 take 1 tablet by mouth every eight hours as needed ondansetron orally disintegrating (ZOFRAN ODT) 4 mg disintegrating tablet Take 1 tablet by mouth every 8 hours as needed for nausea/vomiting. 90 tablet 2 11/05/2023 02/03/2024 Active Start: 08-18-2023 End: 03-01-2024 take 1 tablet by mouth every four hours Ondansetron 4 mg tablet,disintegrating Discontinued 4 mg PO Q4H August 18, 2023 12:00am March 01, 2024 2:43pm 1st dose 1-2 hr before radiation Start: 07-24-2023 End: 03-01-2024 take 1 tablet by mouth every six hours as needed for nausea and vomiting Ondansetron 4 mg tablet,disintegrating Discontinued 4 mg PO EVERY 6 HOURS as needed for nausea and vomiting October 06, 2023 9:20am March 01, 2024 2:43pm Start: 12-31-2019 Zofran 4 mg or al tablet Dose : 4 mg = 1 tab(s), PO, q8h, # 12 tab(s), 0 Refill(s), Diverticulitis Start Date: 12/31/19 Status: Ordered pantoprazole 40 mg delayed release oral tablet (6 sources) Proton Pump Inhibitor Start: 08-19-2023 End: 03-01-2024 take 1 tablet by mouth once daily Pantoprazole 40 mg tablet,delayed release (DR/EC) Discontinued 40 mg PO DAILY 30 Jaleesa 2nd, 2024 12:00am March 01, 2024 2:43pm Take one tablet by mouth daily each morning 400 actuat pirbuterol acetate 0.2 mg/actuat metered dose inhaler (4 sources) Start: 12-10-2000 End: 12-21-2021 take 0.2 mg by inhalation every four hours MAXAIR AUTOHALER AER BR.ACT 0.2MG IH q 4 h 0 12/10/2000 12/21/2021 Discontinued Comment on above: q 4 h prazosin 1 mg oral capsule (20 sources) alpha-Adrenergi c Jonathon Start: 07-15-2021 End: 06-17-2024 prazosin (MINIPRESS) 1 mg cap 10/16/2021 06/17/2024 Discontinued (Discontinued by another Health Care Provider) Start: 04-14-2019 Minipress 5 mg oral capsule Dose : 5 mg = 1 cap(s), Oral, qHS Start Date: 04/14/19 Status: Ordered predniSONE 20 mg oral tablet (20 sources) Start: 04-14-2024 End: 04-19-2024 take 2 tablets by mouth once daily Prednisone 20 mg tablet Discontinued 40 mg PO DAILY April 14, 2024 1:00am April 19, 2024 10:32am Start: 03-01-2024 End: 04-19-2024 take 1 tablet by mouth twice daily Prednisone 20 mg tablet Discontinued 20 mg PO TWICE A DAY March 01, 2024 12:00am April 19, 2024 10:32am Start: 04-08-2023 End: 05-07-2023 take 1 tablet by mouth twice daily Prednisone 20 mg tablet Discontinued 20 mg PO TWICE A DAY April 08, 2023 1:00am May 07, 2023 10:45am Start: 11-25-2022 End: 03-11-2023 take 2 tablets by mouth once daily Prednisone 20 mg tablet Discontinued 40 mg PO DAILY 02 20November 25, 2022 12:00am March 11, 2023 9:56am Start: 11-25-2022 End: 03-11-2023 take 40 mg by mouth once daily Prednisone Discontinued 40 MG PO DAILY 02 20November 25, 2022 12:00am March 11, 2023 9:56am Start: 03-07-2022 Prednisone Act aram 10 MG PO DAILY March 07, 2022 12:00am 4 tablets x 4 days, 3 tablets x 4 days, 2 tablets x 4 days, 1 tablet x 4 days Start: 02-21-2022 End: 03-07-2022 take 1 tablet by mouth twice daily Prednisone 20 mg tablet Discontinued 20 mg PO TWICE A DAY March 06, 2022 8:35pm March 07, 2022 12:41pm Start: 12-24-2021 End: 12-29-2021 take 1 tablet by mouth twice daily predniSONE (DELTASONE) 20 mg tablet Take 1 tablet by mouth twice daily for 5 days. 10 tablet 0 12/24/2021 12/29/2021 Active Start: 09-11-2021 predniSONE (DE LTASONE) 20 mg tablet Start: 08-19-2021 take 40 mg by mouth once daily Prednisone Active 40 MG PO DAILY 10 August 19, 2021 5:58pm Start: 07-16-2021 Prednisone Act aram 0 MG PO DAILY July 16, 2021 12:58pm 40 mg for 3 days, 30 mg for 3 days, 20 mg for 3 days, 10 mg for 3 days Start: 06-28-2021 End: 07-04-2021 predniSONE 50 mg oral tablet Dose : 50 mg = 1 tab(s), Oral, qDayM, # 5 tab(s), 0 Refill(s), Asthma Start Date: 06/28/21 Stop Date: 07/04/21 Status: Ordered Start: 06-07-2021 End: 06-14-2021 predniSONE 50 mg oral tablet Dose : 50 mg = 1 tab(s), PO, Daily, # 7 tab(s), 0 Refill(s), Asthma attack Start Date: 06/07/21 Stop Date: 06/14/21 Status: Ordered Start: 04-09-2021 End: 04-14-2021 predniSONE 20 mg oral tablet Dose : 60 mg = 3 tab(s), Oral, qDay, X 5 day(s), # 15 tab(s), 0 Refill(s), 04/14/21 6:28:00 EST Start Date: 04/09/21 Stop Date: 04/14/21 Status: Ordered Start: 10-04-2020 End: 10-09-2020 predniSONE 50 mg oral tablet Dose : 50 mg = 1 tab(s), Oral, qDayM, # 5 tab(s), 0 Refill(s), Asthma Start Date: 10/04/20 Stop Date: 10/09/20 Status: Ordered Start: 09-19-2020 End: 09-26-2020 take 1 tablet by mouth once daily at mealtime predniSONE 10 mg oral tablet ; 1 tab(s) orally once a day Quantity: 20 Refills: 0 Ordered: 19-Sep-2020 Shantal Larsen Start: 19-Sep-2020 End: 26-Sep-2020 Generic Substitution Allowed Comments: It is very important that you take or use this exactly as directed. Do not skip doses or discontinue unless directed by your doctor.Obtain medical advice before taking any non-prescription drugs as some may affect the action of this medication.Take with food or milk. Comment on above: It is very important that you take or use this exactly as directed. Do not skip doses or discontinue unless directed by your doctor.Obtain medical advice before taking any non-prescription drugs as some may affect the action of this medication.Take with food or milk. Take 1 tablet by lynette th twice daily for 5 days. prochlorperazine 5 mg rectal suppository (15 sources) Phenothiazine Start: End: COMPAZINE SUPP.RECT 5MG RC q 6 h 0 12/10/2000 06/17/2024 Discontinued (Discontinued by another Health Care Provider) Comment on above: q 6 h sucralfate 1000 mg oral tablet (7 sources) Aluminum Complex Start: End: take 1 tablet by mouth twice daily Sucralfate (Carafate) 1 gram tablet Discontinued 1 g PO TWICE A DAY August 13, 2023 12:00am March 01, 2024 2:43pm Take one tablet by mouth twice daily for two weeks zafirlukast 20 mg oral tablet (15 sources) Leukotriene Receptor Antagonist Start: End: take 1 tablet by mouth twice daily ACCOLATE TABLET 20MG PO 1 bid 0 12/10/2000 06/17/2024 Discontinued (Discontinued by Patient) Comment on above: 1 bid Problems Active Problems Problem Classification Problem Date Documented Da te Episodic/Chronic Abdominal pain (17 sources) Abdominal pain; Translations: [Unspecified abdominal pain] 07-24-2023 Episodic Anxiety disorders (12 sources) Anxiety; Translations: [Panic attack] 08-01-2015 Chronic Asthma (20 sources) Exacerbation of asthma; Translations: [Asthma, unspecified type, with (acute) exacerbation] Onset: 09-19-2020 09-19-2020 Chronic Comment on above: ON INHALERS Bacterial infection; unspecified site (6 sources) History of methicillin resistant Staphylococcus aureus infection; Translations: [Personal history of Methicillin resistant Staphylococcus aureus infection] 10-09-2023 Episodic Diabetes mellitus without complication (19 sources) Type 2 diabetes mellitus; Translations: [Type 2 diabetes mellitus without complications] Onset: 08-10-2020 03-21-2014 Chronic Diabetes mellitus without complication (20 sources) Disease condition determination, uncontrolled; Translations: [Other abnormal glucose] Episodic Disorders of lipid metabolism (1 source) Hyperlipidemia, unspecified; Translations: [Hyperlipidemia, unspecified] Onset: 03-09-2024 Chronic Diverticulosis and diverticulitis (4 sources) Diverticulitis 08-01-2015 Chronic Esophageal disorders (20 sources) Gastro-esophageal reflux disease without esophagitis; Translations: [Esophageal reflux] Onset: 08-20-2024 05-07-2023 Chronic Comment on above: FAIRLY CONTROLLED ON PRILOSEC Essential hypertension (6 sources) Hypertensive disorder; Translations: [Essential (primary) hypertension] Onset: 03-09-2024 08-31-2015 Chronic Headache; including migraine (4 sources) Migraine 08-01-2015 Chronic Inflammatory diseases of female pelvic organs (20 sources) Abscess of labia; Translations: [Abscess of vulva] 05-16-2022 Episodic Mycoses (20 sources) Candidiasis of skin; Translations: [Candidiasis of skin and nail] Episodic Comment on above: Bilateral inframamma ry yeast infections. Nystatin powder ordered Nausea and vomiting (20 sources) Nausea; Translations: [Nausea and vomiting] Onset: 06-14-2024 08-01-2015 Episodic Noninfectious gastroenteritis (10 sources) Enteritis of small intestine; Translations: [Noninfective gastroenteritis and colitis, unspecified] 07-24-2023 Episodic Nonmalignant breast conditions (20 sources) Acute mastitis; Translations: [Mastitis without abscess] Episodic Comment on above: Patient with mass le rosa maria of the upper outer quadrant of the right breast/axilla. There is suspicion of a mass on patient's diagnostic ultrasound from prior episode of right breast/axillary abscess.Patient has completed bilateral mammograms, and there was finding of a 7 x 7 mm nodule in the upper outer aspect of the LEFT Breast as well as a 1.3 cm right axillary lymph node. This was given a BI-RADS 0 rating. Patient to be scheduled for follow-up ultrasound examination of these areas. Nonspecific chest pain (20 sources) Chest pain; Translations: [Chest pain, unspecified] 06-09-2022 Episodic Nutritional deficiencies (2 sources) Vitamin D deficiency; Translations: [Vitamin D deficiency, unspecified] Onset: 06-17-2024 06-17-2024 Chronic Open wounds of extremities (20 sources) Laceration of left thumb; Translations: [Laceration without foreign body of left thumb without damage to nail, initial encounter] 04-05-2022 Episodic Osteoarthritis (18 sources) Arthritis; Translations: [Unspecified osteoarthritis, unspecified site] Onset: 04-06-2024 06-17-2024 Chronic Other connective tissue disease (4 sources) Fibromyositis 08-01-2015 Episodic Other connective tissue disease (15 sources) Trochanteric bursitis; Translations: [Trochanteric bursitis, left hip] 04-06-2024 Episodic Other connective tissue disease (8 sources) Muscle pain; Translations: [Myalgia, other site] 08-17-2024 Episodic Other gastrointestinal disorders (6 sources) Constipation alternates with diarrhea; Translations: [Other specified symptoms and signs involving the digestive system and abdomen] 03-12-2024 Episodic Other gastrointestinal disorders (11 sources) Dysphagia; Translations: [Dysphagia, unspecified] 06-15-2024 Episodic Other gastrointestinal disorders (6 sources) Diarrhea; Translations: [Diarrhea, unspecified] 04-13-2024 Episodic Other gastrointestinal disorders (6 sources) History of diverticulitis; Translations: [Personal history of other diseases of the digestive system] 08-26-2023 Episodic Other inflammatory condition of skin (15 sources) Psoriasis; Translations: [Psoriasis, unspecified] Onset: 08-10-2020 12-24-2021 Chronic Other inflammatory condition of skin (1 source) Psoriasis, unspecified; Translations: [Psoriasis] Onset: 12-24-2021 Chronic Other liver diseases (11 sources) Alkaline phosphatase raised; Translations: [Abnormal levels of other serum enzymes] 06-14-2024 Episodic Other liver diseases (11 sources) Large liver; Translations: [Hepatomegaly, not elsewhere classified] 06-14-2024 Episodic Other lower respiratory disease (2 sources) Dyspnea 09-19-2020 Episodic Comment on above: SOB Other lower respiratory disease (1 source) Dyspnea at rest; Translations: [Shortness of breath] 09-19-2020 Episodic Other lower respiratory disease (20 sources) Hypoxemia; Translations: [Hypoxemia] 07-24-2021 Episodic Other lower respiratory disease (12 sources) Hypoxemia; Translations: [Hypoxemia] Episodic Other lower respiratory disease (20 sources) Hypoxia; Translations: [Hypoxemia] 03-15-2022 Episodic Other nervous system disorders (14 sources) Carpal tunnel syndrome; Translations: [Carpal tunnel syndrome, bilateral upper limbs] 03-06-2023 Chronic Other nervous system disorders (20 sources) Carpal tunnel syndrome, bilateral upper limbs; Translations: [Carpal tunnel syndrome] 03-06-2023 Chronic Other nervous system disorders (1 source) Other chronic pain; Translations: [Chronic bilateral low back pain without sciatica] Onset: 06-17-2024 Chronic Other non-traumatic joint disorders (7 sources) Pain in right knee; Translations: [Right knee pain] 04-09-2024 Episodic Other non-traumatic joint disorders (7 sources) Hip pain; Translations: [Pain in left hip] 04-06-2024 Episodic Other nutritional; endocrine; and metabolic disorders (20 sources) H/O: raised blood lipids; Translations: [Personal history of other endocrine, nutritional and metabolic disease] 06-09-2022 Episodic Other nutritional; endocrine; and metabolic disorders (20 sources) H/O: diabetes mellitus; Translations: [Personal history of other endocrine, nutritional and metabolic disease] 06-09-2022 Episodic Other skin disorders (20 sources) Localized swelling, mass and lump, right upper limb; Translations: [Mass of right axilla] Episodic Comment on above: Patient with right a xillary mass measuring 1.6 x 1.0 x 0.7 cm and given BI-RADS 4 rating following dedicated ultrasound 11/14/2021. This mass was biopsied under ultrasound guidance during today's visit. A total of 4 cores were obtained. Patient was provided post procedure wound care instructions. We will plan to follow-up with patient via telephone on results. Other skin disorders (10 sources) Eruption; Translations: [Rash and other nonspecific skin eruption] 06-21-2024 Episodic Other upper respiratory infections (18 sources) Viral upper respiratory tract infection; Translations: [Acute upper respiratory infection, unspecified] 11-25-2022 Episodic Residual codes; unclassified (20 sources) Transient alteration of awareness; Translations: [Transient alteration of awareness] 04-05-2022 Episodic Residual codes; unclassified (7 sources) Other specified postprocedural states; Translations: [Other postprocedural status] 05-07-2023 Episodic Screening and history of mental health and substance abuse codes (7 sources) H/O: manic depressive disorder; Translations: [Personal history of other mental and behavioral disorders] 08-18-2023 Episodic Skin and subcutaneous tissue infections (20 sources) Cellulitis; Translations: [Cellulitis of scalp] 08-31-2015 Episodic Comment on above: Patient well-healing following incision and drainage procedure of right axillary/breast abscess with only residual opening in the right axilla. She should continue to cleanse the site as she is currently and keep it covered. Anticipate with continued glycemic control, that this wound will heal fully in the next week or 2. She request to go back to work and I think this is reasonable, given the status of her wound and absence of concern for ongoing infection. Spondylosis; intervertebral disc disorders; other back problems (20 sources) Other intervertebral disc displacement, lumbar region; Translations: [Herniation of intervertebral disc of lumbar spine] 11-04-2022 Chronic Spondylosis; intervertebral disc disorders; other back problems (20 sources) Sciatica; Translations: [Sciatica, unspecified side] 06-14-2022 Episodic Comment on above: upper and lower lumb ar Substance-related disorders (20 sources) Methamphetamine abuse; Translations: [Other stimulant abuse, uncomplicated] 04-05-2022 Chronic Unclassified (1 source) Shortness of breath at rest 09-19-2020 Unclassified (1 source) Chronic bilateral low back pain without sciatica; Translations: [Chronic bilateral low back pain without sciatica] Onset: 06-17-2024 Unclassified (1 source) Consult Onset: 06-17-2024 Unclassified (2 sources) or Grace as scheduled on Unclassified (4 sources) M79.18 - Myalgia, other site,M70.60 - Trochanteric bursitis, unspecified hip,M54.50 - Low back pain, unspecified Unclassified (1 source) Low back pain, unspecified; Translations: [Low back pain, unspecified] Onset: 08-17-2024 Viral infection (20 sources) Disease caused by 2019-nCoV; Translations: [COVID-19] Episodic Past or Other Problems Problem Classification Problem Date Documented Da te Episodic/Chronic Allergic reactions (19 sources) Cutaneous hypersensitivity; Translations: [Allergy, unspecified, initial encounter] Onset: 05-24-2024 04-22-2024 Episodic Esophageal disorders (12 sources) Traction esophageal diverticulum; Translations: [Diverticulum of esophagus, acquired] Onset: 08-27-2024 06-15-2024 Episodic Immunizations and screening for infectious disease (20 sources) Culture positive for methicillin resistant Staphylococcus aureus; Translations: [Carrier or suspected carrier of Methicillin resistant Staphylococcus aureus] Onset: 06-14-2024 10-30-2021 Episodic Other connective tissue disease (1 source) Trochanteric bursitis, left hip; Translations: [Trochanteric bursitis, left hip] Onset: 04-06-2024 Episodic Other disorders of stomach and duodenum (1 source) Functional dyspepsia; Translations: [Functional dyspepsia] Onset: 05-26-2024 Episodic Other gastrointestinal disorders (1 source) Diarrhea, unspecified; Translations: [Diarrhea, unspecified] Onset: 05-11-2024 Episodic Other liver diseases (1 source) Hepatomegaly, not elsewhere classified; Translations: [Hepatomegaly, not elsewhere classified] Onset: 06-14-2024 Episodic Other liver diseases (1 source) Abnormal levels of other serum enzymes; Translations: [Abnormal levels of other serum enzymes] Onset: 06-14-2024 Episodic Other lower respiratory disease (1 source) Dyspnea, unspecified; Translations: [Dyspnea, unspecified] Onset: 07-22-2024 Episodic Other non-traumatic joint disorders (1 source) Pain in right hip; Translations: [Pain in right hip] Onset: 08-17-2024 Episodic Other non-traumatic joint disorders (1 source) Pain in right wrist; Translations: [Pain in right wrist] Onset: 06-16-2024 Episodic Other non-traumatic joint disorders (1 source) Pain in left hip; Translations: [Pain in left hip] Onset: 04-06-2024 Episodic Other screening for suspected conditions (not mental disorders or infectious disease) (20 sources) Patient encounter status; Translations: [Encounter for screening mammogram for malignant neoplasm of breast] Onset: 06-03-2024 Episodic Comment on above: Bilateral mammograms with results as given above BI-RADS 0. Follow-up ultrasound indicated Other skin disorders (1 source) Rash and other nonspecific skin eruption; Translations: [Rash and other nonspecific skin eruption] Onset: 05-24-2024 Episodic Results Test Name Value Interpretation Reference Range Facility Urgent Care Visit Reporton 0 11-08-2024 Urgent Care Visit Report [facility] [address], [address] [place] [id number] OFFICE VISIT Date of Service: 11/08/24 MR#: [id number] Acct: [id number] Name: LEAH JERRY Rep #: [id number] : 1965 Provider: LILLY Griffith Age/Sex: 58/F Location: [facility] [place] [facility] [place] Status: Signed Intake Vital Signs 09/02/24 14:19 11/08/24 12:39 Height 5 ft 2 in 5 ft 1.25 in Weight: 140 lb 8 oz 142 lb 6 oz BMI 25.7 26.6 BP 120/82 H 128/82 H Blood Pressure Location Rt radial Position Sitting Respiration 16 17 Pulse 74 79 Pulse Source NIBP Temp 98.8 F Temp Source Oral Pulse Oximetry (%) 98 98 Oxygen Delivery Method room air Intake Visit Reasons: Rash Chief Complaint: Rash Animal Feeder Required: No Is patient in pain?: No Allergies Tetracyclines Allergy (Intermediate, Verified 09/02/24 14:14) Rash aminophylline Allergy (Verified 09/02/24 14:14) Swelling amphetamine (From Adderall) Allergy (Verified 09/02/24 14:14) Other dextroamphetamine (From Adderall) Allergy (Verified 09/02/24 14:14) Other dulaglutide (From Trulicity) Allergy (Verified 09/02/24 14:14) Vomiting Iodinated Contrast Media (CT) Allergy (Verified 09/02/24 14:14) Swelling iodine Allergy (Verified 09/02/24 14:14) Swelling povidone-iodine (From Betadine) Allergy (Verified 09/02/24 14:14) Swelling shellfish derived Allergy (Verified 09/02/24 14:14) Swelling Sulfa (Sulfonamide Antibiotics) Allergy (Verified 09/02/24 14:14) Swelling buspirone (From BuSpar) Adverse Reaction (Intermediate, Verified 09/02/24 14:14) Other allantoin (From Blistex) Adverse Reaction (Verified 09/02/24 14:14) Swelling aloe vera (From Blistex) Adverse Reaction (Verified 09/02/24 14:14) Swelling camphor (From Blistex) Adverse Reaction (Verified 09/02/24 14:14) Swelling chamomile flower (From Blistex) Adverse Reaction (Verified 09/02/24 14:14) Swelling dimethicone (From Blistex) Adverse Reaction (Verified 09/02/24 14:14) Swelling herbal complex no.57 (From Blistex) Adverse Reaction (Verified 09/02/24 14:14) Swelling homosalate (From Blistex) Adverse Reaction (Verified 09/02/24 14:14) Swelling menthol (From Blistex) Adverse Reaction (Verified 09/02/24 14:14) Swelling meradimate (From Blistex) Adverse Reaction (Verified 09/02/24 14:14) Swelling octinoxate (From Blistex) Adverse Reaction (Verified 09/02/24 14:14) Swelling octyl salicylate (From Blistex) Adverse Reaction (Verified 09/02/24 14:14) Swelling oxybenzone (From Blistex) Adverse Reaction (Verified 09/02/24 14:14) Swelling padimate O (From Blistex) Adverse Reaction (Verified 09/02/24 14:14) Swelling petrolatum,hydrophilic (From Blistex) Adverse Reaction (Verified 09/02/24 14:14) Swelling phenol (From Blistex) Adverse Reaction (Verified 09/02/24 14:14) Swelling tetracycline Adverse Reaction (Verified 09/02/24 14:14) Rash Is last menstrual period known: No Post menopausal: No Patient : No Have you fallen in the past year?: No Nurse's Note: has severe rash across entire body, but mostly legs. Commented that this rash is common but is much worse than previously. [facility] Medical History (Updated 11/08/24 @ 14:05 by Ryan Kelley PA, PA) Plaque psoriasis Esophageal and gastric varices History of ulceration Lupus Osteoarthritis of right knee Right knee pain Greater trochanteric bursitis of left hip Osteoarthritis of left hip Left hip pain Psoriasis Wears glasses Arthritis Difficulty swallowing Gastric reflux History of cellulitis Bilateral carpal tunnel syndrome Anxiety Degenerative disc disease Fibromyalgia MRSA (methicillin resistant staph aureus) culture positive Hx of intestinal obstruction History of diverticulitis Bipolar 1 disorder Depression Diabetes Asthma PTSD (post-traumatic stress disorder) Surgical History History of esophagogastroduodenoscopy (EGD) Hx of colonoscopy History of carpal tunnel surgery Hx of surgical procedure Hx of tooth extraction Hx of breast surgery History of right breast biopsy ( 11/2021) History of intestinal surgery History of lumpectomy of right breast Hx of appendectomy Hx of repair of right rotator cuff Hx of bilateral oophorectomy Hx of hysterectomy Family History Father Diabetes Heart disease COPD (chronic obstructive pulmonary disease) Hypertension Mother Diabetes Heart disease COPD (chronic obstructive pulmonary disease) Cancer Sister Heart disease Thyroid disorder Social History household members: spouse housing: other details: homeless lives in [facility] Smoking Status: Never smoker alcohol intake: never substance use type: does n (more content not included)... Normal [facility] Gastroenterology Visit Repor ton 09-02-2024 Gastroenterology Visit Report [facility] [address] [place] [address] OFFICE VISIT Date of Service: 09/02/24 MR#: [id number] Acct: [id number] Name: LEAH JERRY Rep #: [id number] : 1965 Provider: AIRCRAFT STRUCTURAL FITTER-C Judith A nthony Age/Sex: 58/F Location: [facility] [place] Status: Signed Intake Vital Signs 06/14/24 14:49 08/16/24 14:50 09/02/24 14:19 Height 5 ft 2 in 5 ft 2 in 5 ft 2 in Weight: 140 lb 8 oz BMI 25.7 BP 120/82 H Respiration 16 Pulse 74 Pulse Oximetry (%) 98 Oxygen Delivery Method room air Intake Visit Reasons: Test Result Chief Complaint: follow-up for results Animal Feeder Required: No Is patient in pain?: Yes Allergies Tetracyclines Allergy (Intermediate, Verified 09/02/24 14:14) Rash aminophylline Allergy (Verified 09/02/24 14:14) Swelling amphetamine (From Adderall) Allergy (Verified 09/02/24 14:14) Other dextroamphetamine (From Adderall) Allergy (Verified 09/02/24 14:14) Other dulaglutide (From Trulicity) Allergy (Verified 09/02/24 14:14) Vomiting Iodinated Contrast Media (CT) Allergy (Verified 09/02/24 14:14) Swelling iodine Allergy (Verified 09/02/24 14:14) Swelling povidone-iodine (From Betadine) Allergy (Verified 09/02/24 14:14) Swelling shellfish derived Allergy (Verified 09/02/24 14:14) Swelling Sulfa (Sulfonamide Antibiotics) Allergy (Verified 09/02/24 14:14) Swelling buspirone (From BuSpar) Adverse Reaction (Intermediate, Verified 09/02/24 14:14) Other allantoin (From Blistex) Adverse Reaction (Verified 09/02/24 14:14) Swelling aloe vera (From Blistex) Adverse Reaction (Verified 09/02/24 14:14) Swelling camphor (From Blistex) Adverse Reaction (Verified 09/02/24 14:14) Swelling chamomile flower (From Blistex) Adverse Reaction (Verified 09/02/24 14:14) Swelling dimethicone (From Blistex) Adverse Reaction (Verified 09/02/24 14:14) Swelling herbal complex no.57 (From Blistex) Adverse Reaction (Verified 09/02/24 14:14) Swelling homosalate (From Blistex) Adverse Reaction (Verified 09/02/24 14:14) Swelling menthol (From Blistex) Adverse Reaction (Verified 09/02/24 14:14) Swelling meradimate (From Blistex) Adverse Reaction (Verified 09/02/24 14:14) Swelling octinoxate (From Blistex) Adverse Reaction (Verified 09/02/24 14:14) Swelling octyl salicylate (From Blistex) Adverse Reaction (Verified 09/02/24 14:14) Swelling oxybenzone (From Blistex) Adverse Reaction (Verified 09/02/24 14:14) Swelling padimate O (From Blistex) Adverse Reaction (Verified 09/02/24 14:14) Swelling petrolatum,hydrophilic (From Blistex) Adverse Reaction (Verified 09/02/24 14:14) Swelling phenol (From Blistex) Adverse Reaction (Verified 09/02/24 14:14) Swelling tetracycline Adverse Reaction (Verified 09/02/24 14:14) Rash Medications ???Medication ???Instructions ???Recorded ???Confirmed ???Type trazodone 150 mg tablet 150 mg PO QHS anxiety 07/15/21 History albuterol sulfate 90 mcg/actuation 2 puff inhalation Q6H PRN 09/02/24 Rx aerosol inhaler shortness of breath or wheezing #8.5 grams cetirizine 10 mg tablet 10 mg PO BID 03/06/23 09/02/24 His tory fluticasone fur. 200 mcg-umeclid 1 inh inhalation Q24H 04/08/23 History 62.5 mcg-vilant 25 mcg inhalat.powder (Trelegy Ellipta) lanolin alcohols-mineral 1 applic topical DAILY 04/08/23 History oil-w.petrolatum-ceresin topical cream (Minerin Creme topical) sertraline 50 mg tablet 50 mg PO DAILY 04/08/23 09/02/24 H istory hydroxyzine HCl 25 mg tablet 50 mg PO QHS 06/23/23 09/02/24 His tory dapagliflozin propanediol 10 mg 10 mg PO DAILY 10/01/23 09/02/24 H istory tablet (Farxiga) triamcinolone acetonide 0.1 % 1 applic topical BID 10/01/2308/17 History topical cream atorvastatin 20 mg tablet 20 mg PO QHS 10/28/23 09/02/24 His tory metformin 500 mg tablet 500 mg PO BID 03/12/24 09/02/24 Hi story propranolol 20 mg tablet 20 mg PO BID 03/12/24 09/02/24 His tory benzonatate 100 mg capsule 100 mg PO BID PRN cough 06/14/24 0 09/02/24 History albuterol sulfate 2.5 mg/3 mL 2.5 mg inhalation Q4H PRN PRN 07/1809/02/24 History (0.083 %) solution for nebulization shortness of breath or wheezing cyclobenzaprine 5 mg tablet 5 mg PO BID 08/13/24 09/02/24 Hist ory fluticasone propionate 50 2 spray intranasal DAILY PRN 08/1309/02/24 History mcg/actuation nasal congestion spray,suspension diclofenac sodium 1 % topical gel 2 g topical .COMPLEX PRN pain, 09/02/24 Rx (Arthritis Pain (diclofenac)) swelling, stiffness #100 grams dicyclomine 20 mg tablet 20 mg PO TID PRN abdominal pain 09/02/24 Rx #270 tabs gabapentin 100 mg capsule 300 mg PO TID 09/02/24 09/02/24 Hi story hydroxyzine HCl 25 mg tablet 25 mg PO TID anx (more content not included)... Normal [facility] L501.5101on 09-02-2024 GGTP 17 IU/L Normal 0-60 [facility] Comment on above: Order Comment: ADARSH MILLS WANTS LIVER AND GGTPNP.EDSON WANTS CMP,CBCD,MIALB,TSH,B12,VITD Result Comment: Perf ormed at: CB - [facility] [address] [id number] Executive Relations Specialist: Luis Zuñiga PhD, Phone: [phone] Performed By: #### L 502.0500, L563.5894 #### [facility] Laboratory [address] [place], [address] Absolute lymphocyte countOrd ered By: Judith Hardin on 08-31-2024 Lymphocytes Auto (Unsp spec) [#/Vol] 1.50 10*3/uL 0.83-4.51 [facility] Absolute neutrophil countOrd ered By: Judith Hardin on 08-31-2024 Neutrophils (Bld) [#/Vol] 4.1 10*3/uL 2.0-7.7 [facility] Albumin DL <= 20 mg/L (U) [M ass/Vol]Ordered By: Judith Hardin on 08-31-2024 Urine Random Microalbumin < 12.0 mg/L NO RANGE EST. [facility] Anion gap in Serum or Plasma Ordered By: Judith Hardin on 08-31-2024 Anion gap [Moles/Vol] 12 mmol/L 5-15 [facility] Automated lymphocyte count a s percentage of total leukocytesOrdered By: Judith Hardin on 08-31-2024 Lymphocytes/100 WBC Auto (Unsp spec) 23.5 % 19-41 [facility] BUN/creatinine ratioOrdered By: Judith Hardin on 08-31-2024 Urea nitrogen/Creatinine [Mass ratio] 10.9 mg/mg 10-20 [facility] Basophil percentageOrdered B y: Judith Hardin on 08-31-2024 Basophils/100 WBC (Bld) 0.5 % 0-1 [facility] Bilirubin directOrdered By: Judith Hardin on 08-31-2024 Bilirubin.direct [Mass/Vol] mg/dL 0.00-0.30 [facility] Bilirubin, Directon 09-01-19 25 D BILI < 0.08 Normal 0.00-0.30 [facility] Comment on above: Order Comment: ADARSH [place] LIVER AND GGTPNP.EDSON WANTS CMP,CBCD,MIALB,TSH,B12,VITD Performed By: #### L 502.0500, L501.9520 #### [facility] [address] [place], [address] Bilirubin, totalOrdered By: Judith Hardin on 08-31-2024 Bilirubin [Mass/Vol] 0.19 mg/dL 0.00-1.30 [facility] Bilirubin.direct [Mass/Vol]O rdered By: Judith Hardin on 08-31-2024 Direct Bilirubin < 0.08 mg/dL 0.00-0.30 [facility] CBC W/Diff, Automatedon 08-17 Absolute Lymph 1.50 X10 3/uL Normal 0.83-4.51 [facility] Comment on above: Order Comment: ADARSH [place] LIVER AND GGTPNP.EDSON DIGGSS CMP,CBCD,MIALB,TSH,B12,VITD Performed By: #### L 502.0500, L501.9520 #### [facility] [address] [place], [address] Absolute Neut 4.1 X10 3/uL Normal 2.0-7.7 [facility] Comment on above: Order Comment: ADARSH [place] LIVER AND GGTPNP.EDSON DIGGSS CMP,CBCD,MIALB,TSH,B12,VITD Performed By: #### L 502.0500, L501.9520 #### [facility] [address] [place], [address] Basophils/100 WBC (Bld) 0.5 % Normal 0-1 [facility] Comment on above: Order Comment: ADARSH [place] LIVER AND GGTPNP.EDSON DIGGSS CMP,CBCD,MIALB,TSH,B12,VITD Performed By: #### L 502.0500, L501.9520 #### [facility] [address] [place], [address] Eosinophils/100 WBC (Bld) 3.8 % Normal 0-5 [facility] Comment on above: Order Comment: ADARSH DIGGSS LIVER AND GGTPNP.NORMANKLMONISHA DIGGSS CMP,CBCD,MIALB,TSH,B12,VITD Performed By: #### L 502.0500, L501.9520 #### [facility] [address] [place], [address] Erythrocyte distribution width (RBC) [Ratio] 13.6 % Normal 11.6-14.6 [facility] Comment on above: Order Comment: ADARSH DIGGSS LIVER AND GGTPNP.NORMANKLIN WANTS CMP,CBCD,MIALB,TSH,B12,VITD Performed By: #### L 502.0500, L501.9520 #### [facility] [address] [place], [place], [id number] Hematocrit (Bld) [Volume fraction] 38.9 % Normal 37-47 [facility] Comment on above: Order Comment: ADARSH [place] LIVER AND GGTPNP.MARCELOIN DONTAES CMP,CBCD,MIALB,TSH,B12,VITD Performed By: #### L 502.0500, L501.9520 #### [facility] [address] [place], [place], [id number] Hemoglobin (Bld) [Mass/Vol] 12.0 g/dL Normal 12.0-15.0 [facility] Comment on above: Order Comment: ADARSH [place] LIVER AND GGTPNP.NORMANKLIN DONTAES CMP,CBCD,MIALB,TSH,B12,VITD Performed By: #### L 502.0500, L501.9520 #### [facility] [address] [place], [address] IG% 0.500 Normal 0.0-0.9 [facility] Comment on above: Order Comment: ADARSH DIGGSS LIVER AND GGTPNP.NORMANKLIN WANTS CMP,CBCD,MIALB,TSH,B12,VITD Result Comment: IG% - Immature Granulocytes (promyelocytes, myelocytes and metamyelocytes) > 1% indicates that a LEFT SHIFT is Present. Performed By: #### L 502.0500, L501.9520 #### [facility] [address] [place], [address] Lymphocytes/100 WBC (Bld) 23.5 % Normal 19-41 [facility] Comment on above: Order Comment: ADARSH MILLS WANTS LIVER AND GGTPNP.JFRANKLIN WANTS CMP,CBCD,MIALB,TSH,B12,VITD Performed By: #### L 502.0500, L501.9520 #### [facility] [address], [address] MCH (RBC) [Entitic mass] 26.8 pg Low 27.0-32.0 [facility] Comment on above: Order Comment: ADARSH MILLS WANTS LIVER AND GGTPNP.JFRANKLIN WANTS CMP,CBCD,MIALB,TSH,B12,VITD Performed By: #### L 502.0500, L501.9520 #### [facility] [address] [place], [address] MCHC (RBC) [Mass/Vol] 30.8 g/dL Low 32-36 [facility] Comment on above: Order Comment: ADARSH DIGGSS LIVER AND GGTPNP.CHRISTIANNERANKLIN WANTS CMP,CBCD,MIALB,TSH,B12,VITD Performed By: #### L 502.0500, L501.9520 #### [facility] [address] [place], [address] MCV (RBC) [Entitic vol] 86.8 fL Normal 81-99 [facility] Comment on above: Order Comment: ADARSH DIGGSS LIVER AND GGTPNP.CHRISTIANNERANKLIN WANTS CMP,CBCD,MIALB,TSH,B12,VITD Performed By: #### L 502.0500, [id number] #### [facility] [address] [place], [address] Monocytes/100 WBC (Bld) 7.2 % Normal 0-10 [facility] Comment on above: Order Comment: ADARSH DIGGSS LIVER AND GGTPNP.JFRANKLIN WANTS CMP,CBCD,MIALB,TSH,B12,VITD Performed By: #### L 502.0500, [id number] #### [facility] [address], [address] Neutrophils/100 WBC (Bld) 64.5 % Normal 47-70 [facility] Comment on above: Order Comment: ADARSH [place] LIVER AND GGTPNP.JFRANKLIN DONTAES CMP,CBCD,MIALB,TSH,B12,VITD Performed By: #### L 502.0500, L501.9520 #### [facility] [address] [place], [address] Nucleated RBC (Bld) [#/Vol] 0 10*3/uL Normal 0-5 [facility] Comment on above: Order Comment: ADARSH [place] LIVER AND GGTPNP.JFRANKLIN DONTAES CMP,CBCD,MIALB,TSH,B12,VITD Performed By: #### L 502.0500, L501.9520 #### [facility] [address] [place], [address] Platelet mean volume (Bld) [Entitic vol] 9.6 fL Normal 6.2-12.0 [facility] Comment on above: Order Comment: ADARSH [place] LIVER AND GGTPNP.CHRISTIANNERANKLIN DONTAES CMP,CBCD,MIALB,TSH,B12,VITD Performed By: #### L 502.0500, L501.9520 #### [facility] [address] [place], [address] Platelets (Bld) [#/Vol] 228 10*3/uL Normal 150-450 [facility] Comment on above: Order Comment: ADARSH R[place] LIVER AND GGTPNP.JFRANKLIN WANTS CMP,CBCD,MIALB,TSH,B12,VITD Performed By: #### L 502.0500, L501.9520 #### [facility] [address] [place], [address] RBC (Bld) [#/Vol] 4.48 10*6/uL Normal 4.2-5.4 [facility] Comment on above: Order Comment: ADARSH R[place] LIVER AND GGTPNP.NORMANKLIN KYRA CMP,CBCD,MIALB,TSH,B12,VITD Performed By: #### L 502.0500, L501.9520 #### [facility] [address] [place], [address] RDW SD 42.4 fl Normal 35.1-43.9 [facility] Comment on above: Order Comment: ADARSH [place] LIVER AND GGTPNP.EDSON RAE CMP,CBCD,MIALB,TSH,B12,VITD Performed By: #### L 502.0500, L501.9520 #### [facility] [address] [place], [address] WBC (Bld) [#/Vol] 6.4 10*3/uL Normal 4.4-11.0 [facility] Comment on above: Order Comment: ADARSH [place] LIVER AND GGTPNP.EDSON DIGGSS CMP,CBCD,MIALB,TSH,B12,VITD Performed By: #### L 502.0500, L501.9520 #### [facility] [address] [place], [address] Carbon dioxide, total [Moles /volume] in Central venous bloodOrdered By: Judith Hardin on 08-31-2024 CO2 [Moles/Vol] 23.5 mmol/L 21.0-32.0 [facility] Chloride assayOrdered By: Harsha Hardin on 08-31-2024 Chloride [Moles/Vol] 106 mmol/L 98-108 [facility] Comprehensive Metabolic Prof ilon 08-31-2024 Albumin [Mass/Vol] 3.8 g/dL Normal 3.4-4.8 [facility] Comment on above: Order Comment: AIRCRAFT STRUCTURAL FITTERBROOKLYN MILLS WANTS LIVER AND GGTPNP.JFRANKLIN WANTS CMP,CBCD,MIALB,TSH,B12,VITD Performed By: #### L 502.0500, L501.9520 #### [facility] [address] [place], [address] Albumin/Globulin [Mass ratio] 1.5 {ratio} Normal 0.9-2.4 [facility] Comment on above: Order Comment: ADARSH MILLS WANTS LIVER AND GGTPNP.JFRANKLIN WANTS CMP,CBCD,MIALB,TSH,B12,VITD Performed By: #### L 502.0500, L501.9520 #### [facility] [address] [place], [address] ALK PHOS 173 U/L High 35-104 [facility] Comment on above: Order Comment: ADARSH MILLS WANTS LIVER AND GGTPNP.JFRANKLIN WANTS CMP,CBCD,MIALB,TSH,B12,VITD Performed By: #### L 502.0500, L501.9520 #### [facility] [address] [place], [address] ALT [Catalytic activity/Vol] 10 U/L Normal <=34 [facility] Comment on above: Order Comment: ADARSH MILLS WANTS LIVER AND GGTPNP.JFRANKLIN WANTS CMP,CBCD,MIALB,TSH,B12,VITD Performed By: #### L 502.0500, L501.9520 #### [facility] [address] [place], [address] AST [Catalytic activity/Vol] 21 U/L Normal <=31 [facility] Comment on above: Order Comment: ADARSH MILLS WANTS LIVER AND GGTPNP.JFRANKLIN WANTS CMP,CBCD,MIALB,TSH,B12,VITD Performed By: #### L 502.0500, L501.9520 #### [facility] [address] [place], [address] Bilirubin [Mass/Vol] 0.19 mg/dL Normal 0.00-1.30 [facility] Comment on above: Order Comment: ADARSH [place] LIVER AND GGTPNP.JFRANKLIN DONTAES CMP,CBCD,MIALB,TSH,B12,VITD Performed By: #### L 502.0500, L501.9520 #### [facility] [address] [place], [address] BUN/CRE 10.9 RATIO Normal 10-20 [facility] Comment on above: Order Comment: ADARSH R[place] LIVER AND GGTPNP.EDSON DIGGSS CMP,CBCD,MIALB,TSH,B12,VITD Performed By: #### L 502.0500, L501.9520 #### [facility] [address] [place], [address] Calcium [Mass/Vol] 9.2 mg/dL Normal 7.6-11.0 [facility] Comment on above: Order Comment: ADARSH RAE LIVER AND GGTPNP.NORMANKLIN WANTS CMP,CBCD,MIALB,TSH,B12,VITD Performed By: #### L 502.0500, L501.9520 #### [facility] [address] [place], [address] Chloride [Moles/Vol] 106 mmol/L Normal 98-108 [facility] Comment on above: Order Comment: ADARSH R[place] LIVER AND GGTPNP.CHRISTIANNERANKLIN WANTS CMP,CBCD,MIALB,TSH,B12,VITD Performed By: #### L 502.0500, L501.9520 #### [facility] [address] [place], [address] CO2 [Moles/Vol] 23.5 mmol/L Normal 21.0-32.0 [facility] Comment on above: Order Comment: ADARSH DIGGSS LIVER AND GGTPNP.CHRISTIANNERANKLMONISHA DIGGSS CMP,CBCD,MIALB,TSH,B12,VITD Performed By: #### L 502.0500, L501.9520 #### [facility] [address] [place], [address] Creatinine [Mass/Vol] 0.90 mg/dL Normal 0.70-1.20 [facility] Comment on above: Order Comment: ADARSH DIGGSS LIVER AND GGTPNP.JFRANKLIN DONTAES CMP,CBCD,MIALB,TSH,B12,VITD Performed By: #### L 502.0500, L501.9520 #### [facility] [address] [place], [address] GAP 12 Normal 5-15 [facility] Comment on above: Order Comment: ADARSH [place] LIVER AND GGTPNP.CHRISTIANNERANKLIN WANTS CMP,CBCD,MIALB,TSH,B12,VITD Performed By: #### L 502.0500, L501.9520 #### [facility] [address] [place], [address] GFR/1.73 sq M.predicted among non-blacks MDRD (S/P/Bld) [Vol rate/Area] 73 mL/min/{1.73_m2} Normal >60 [facility] Comment on above: Order Comment: ADARSH DIGGSS LIVER AND GGTPNP.CHRISTIANNERANKLIN WANTS CMP,CBCD,MIALB,TSH,B12,VITD Result Comment: mL/m in/1.73m2 CKD-EPI Creatinine Equation (2020) Performed By: #### L 502.0500, L501.9520 #### [facility] [address] [place], [address] Globulin (S) [Mass/Vol] 2.5 g/dL Normal 2.2-4.2 [facility] Comment on above: Order Comment: ADARSH MILLS WANTS LIVER AND GGTPNP.JFRANKLIN WANTS CMP,CBCD,MIALB,TSH,B12,VITD Performed By: #### L 502.0500, L501.9520 #### [facility] [address] [place], [address] Glucose [Mass/Vol] 166 mg/dL High 70-99 [facility] Comment on above: Order Comment: ADARSH MILLS WANTS LIVER AND GGTPNP.JFRANKLIN WANTS CMP,CBCD,MIALB,TSH,B12,VITD Performed By: #### L 502.0500, L501.9520 #### [facility] [address] [place], [address] Potassium [Moles/Vol] 3.6 mmol/L Normal 3.3-5.1 [facility] Comment on above: Order Comment: ADARSH MILLS WANTS LIVER AND GGTPNP.CHRISTIANNERANKLIN WANTS CMP,CBCD,MIALB,TSH,B12,VITD Performed By: #### L 502.0500, L501.9520 #### [facility] [address], [address] Sodium [Moles/Vol] 141 mmol/L Normal 133-145 [facility] Comment on above: Order Comment: ADARSH MILLS WANTS LIVER AND GGTPNP.JFRANKLIN WANTS CMP,CBCD,MIALB,TSH,B12,VITD Performed By: #### L 502.0500, L501.9520 #### [facility] [address] [place], [address] T PROT 6.2 g/dL Normal 5.9-8.4 [facility] Comment on above: Order Comment: ADARSH MILLS WANTS LIVER AND GGTPNP.JFRANKLIN WANTS CMP,CBCD,MIALB,TSH,B12,VITD Performed By: #### L 502.0500, L501.9520 #### [facility] [address] [place], [place], [id number] Urea nitrogen [Mass/Vol] 10 mg/dL Normal 4-19 [facility] Comment on above: Order Comment: ADARSH RAE LIVER AND GGTPNP.EDSON RAE CMP,CBCD,MIALB,TSH,B12,VITD Performed By: #### L 502.0500, L501.9520 #### [facility] [address] [place], [place], [address] Eosinophil percentageOrdered By: Judith Hardin on 08-31-2024 Eosinophils/100 WBC (Bld) 3.8 % 0-5 [facility] Erythrocyte distribution wid th (RBC) [Ratio]Ordered By: Judith Hardin on 08-31-2024 Erythrocyte distribution width (RBC) [Entitic vol] 42.4 fL 35.1-43.9 [facility] Erythrocyte distribution wid th ratioOrdered By: Judith Hardin on 08-31-2024 Erythrocyte distribution width (RBC) [Ratio] 13.6 % 11.6-14.6 [facility] Erythrocyte distribution wid th standard deviationOrdered By: Judith Hardin on 08-31-2024 Erythrocyte distribution width (RBC) [Ratio] 42.4 fl 35.1-43.9 [facility] GFR/1.73 sq M.predicted brandon g non-blacks MDRD (S/P/Bld) [Vol rate/Area]Ordered By: Judith Hadrin on 08-31-2024 Estimated GFR (MDRD) Non-Af Amer 73 >60 [facility] Comment on above: mL/min/1.73m2 CKD-EP I Creatinine Equation (2020) Gamma glutamyl transferase ( GGT) measurementOrdered By: Judith Hardin on 08-31-2024 Amylase [Catalytic activity/Vol] 17 U/L 0-60 [facility] Comment on above: Performed at: [address] [id number] Director: Luis Zuñiga PhD, Phone: [phone] Glomerular filtration rate ( GFR) estimation/1.73 sq m using serum, plasma, or whole bOrdered By: Judith Hardin on 08-31-2024 GFR/1.73 sq M.predicted among non-blacks MDRD (S/P/Bld) [Vol rate/Area] 73 mL/min/{1.73_m2} >60 [facility] Comment on above: mL/min/1.73m2 CKD-EP I Creatinine Equation (2020) Hematocrit Auto (Bld) [Volum e fraction]Ordered By: Judith Hardin on 08-31-2024 Hematocrit (Bld) [Volume fraction] 38.9 % 37-47 [facility] Hemoglobin measurementOrdere d By: Judith Hardin on 08-31-2024 Hemoglobin (Bld) [Mass/Vol] 12.0 g/dL 12.0-15.0 [facility] Immature granulocytes/100 WB C Auto (Bld)Ordered By: Judith Hardin on 08-31-2024 Immature granulocytes/100 WBC (Bld) 0.500 % 0.0-0.9 [facility] Comment on above: IG% - Immature Granu locytes (promyelocytes, myelocytes and metamyelocytes) > 1% indicates that a LEFT SHIFT is Present. Laboratory - Chemistry and C hemistry - challengeOrdered By: Judith Hardin on 08-31-2024 AST [Catalytic activity/Vol] 21 U/L <32 [facility] Lymphocytes Auto (Unsp spec) [#/Vol]Ordered By: Judith Hardin on 08-31-2024 Lymphocytes (Bld) [#/Vol] 1.50 10*3/uL 0.83-4.51 [facility] Lymphocytes/100 WBC Auto (Un sp spec)Ordered By: Jduith Hardin on 08-31-2024 Lymphocytes/100 WBC (Bld) 23.5 % 19-41 [facility] MCV (mean corpuscular volume ) determinationOrdered By: Judith Hardin on 08-31-2024 MCV (RBC) [Entitic vol] 86.8 fL 81-99 [facility] Mean corpuscular hemoglobin (MCH) determinationOrdered By: Judith Hardin on 08-31-2024 MCH (RBC) [Entitic mass] 26.8 pg Low 27.0-32.0 [facility] Mean corpuscular hemoglobin concentration (MCHC) determinationOrdered By: Judith Hardin on 08-31-2024 MCHC (RBC) [Mass/Vol] 30.8 g/dL Low 32-36 [facility] Mean platelet volume determi nationOrdered By: Judith Hardin on 08-31-2024 Platelet mean volume (Bld) [Entitic vol] 9.6 fL 6.2-12.0 [facility] Microalbumin,Random Urineon 08-31-2024 MICROALBUMIN,UR < 12.0 Normal NO RANGE EST. [facility] Comment on above: Order Comment: ADARSH RAE LIVER AND GGTPNP.EDSON RAE CMP,CBCD,MIALB,TSH,B12,VITD Performed By: #### L 502.0500, L501.9520 #### [facility] [address] [place] [address]. [place], [address] Monocyte percentageOrdered B y: Judith Hardin on 08-31-2024 Monocytes/100 WBC (Bld) 7.2 % 0-10 [facility] Neutrophil percentageOrdered By: Judith Hardin on 08-31-2024 Neutrophils/100 WBC (Bld) 64.5 % 47-70 [facility] Nucleated red blood cell per centageOrdered By: Judith Hardin on 08-31-2024 Nucleated RBC/100 WBC (Bld) [Ratio] 0 % 0-5 [facility] Platelet countOrdered By: Harsha Hardin on 08-31-2024 Platelets (Bld) [#/Vol] 228 10*3/uL 150-450 [facility] Potassium (Unsp spec) [Mass/ Vol]Ordered By: Judith Hardin on 08-31-2024 Potassium [Moles/Vol] 3.6 mmol/L 3.3-5.1 [facility] Potassium measurement (mass/ volume)Ordered By: Judith Hardin on 08-31-2024 Potassium (Unsp spec) [Mass/Vol] 3.6 mmol/L 3.3-5.1 [facility] RBC Auto (Bld) [#/Vol]Ordere d By: Judith Hardin on 08-31-2024 RBC (Bld) [#/Vol] 4.48 10*6/uL 4.2-5.4 [facility] Serum creatinine measurement (mass/volume)Ordered By: Judith Hardin on 08-31-2024 Creatinine [Mass/Vol] 0.90 mg/dL 0.70-1.20 [facility] Serum globulin measurementOr dered By: Judith Hardin on 08-31-2024 Globulin (S) [Mass/Vol] 2.5 g/dL 2.2-4.2 [facility] Serum glucose measurement (m ass/volume)Ordered By: Judith Hardin on 08-31-2024 Glucose [Mass/Vol] 166 mg/dL High 70-99 [facility] Serum or plasma alanine lucero otransferase (ALT) measurementOrdered By: Judith Hardin on 08-31-2024 ALT [Catalytic activity/Vol] 10 U/L <35 [facility] Serum or plasma albumin kallie urement (mass/volume)Ordered By: Judith Hardin on 08-31-2024 Albumin [Mass/Vol] 3.8 g/dL 3.4-4.8 [facility] Serum or plasma albumin/glob ulin mass ratioOrdered By: Judith Hardin on 08-31-2024 Albumin/Globulin [Mass ratio] 1.5 {ratio} 0.9-2.4 [facility] Serum or plasma alkaline nayeli sphatase measurementOrdered By: Judith Hardin on 08-31-2024 ALP [Catalytic activity/Vol] 173 U/L High 35-104 [facility] Serum or plasma calcium kallie urement (mass/volume)Ordered By: Judith Hardin on 08-31-2024 Calcium [Mass/Vol] 9.2 mg/dL 7.6-11.0 [facility] Serum or plasma urea nitroge n measurement (mass/volume)Ordered By: Judith Hardin on 08-31-2024 Urea nitrogen [Mass/Vol] 10 mg/dL 4-19 [facility] Sodium levelOrdered By: Abbie Hardin on 08-31-2024 Sodium [Moles/Vol] 141 mmol/L 133-145 [facility] TSH DL <= 0.005 mIU/L QnOrde red By: Judith Hardin on 08-31-2024 Thyroid Stimulating Hormone (TSH) 0.408 uIU/mL 0.300-4.200 [facility] TSH Qn 0.408 uIU/mL 0.300-4.200 [facility] Thyroid Stim Hormone (TSH)on 08-31-2024 TSH 0.408 uIU/mL Normal 0.300-4.200 [facility] Comment on above: Order Comment: ADARSH RAE LIVER AND GGTPNP.EDSON RAE CMP,CBCD,MIALB,TSH,B12,VITD Performed By: #### L 502.0500, L501.9520 #### [facility] [address] [place], [place], [id number] Total proteinOrdered By: Karen Hardin on 08-31-2024 Protein [Mass/Vol] 6.2 g/dL 5.9-8.4 [facility] Urine albumin measurement wi detection limit of 20 mg/L or less (mass/volume)Ordered By: Judith Hardin on 08-31-2024 Albumin DL <= 20 mg/L (U) [Mass/Vol] < 12.0 mg/L NO RANGE EST. [facility] Vitamin B12on 08-31-2024 Cobalamin (Vitamin B12) [Mass/Vol] 349 pg/mL Normal 180-914 [facility] Comment on above: Order Comment: ADARSH RAE LIVER AND GGTPNP.NORMANKLIN DONTAES CMP,CBCD,MIALB,TSH,B12,VITD Performed By: #### L 502.0500, L501.9520 #### [facility] [address] [place], [address] Vitamin B12 ser/plasOrdered By: Judith Hardin on 08-31-2024 Cobalamin (Vitamin B12) [Mass/Vol] 349 pg/mL 180-914 [facility] Vitamin D, 25-hydroxyOrdered By: Judith Hardin on 08-31-2024 Vitamin D 25-Hydroxy 13.9 ng/mL Low 30-100 [facility] Comment on above: Vitamin D StatusDefi ciency: <20 ng/mL (50nmol/L)Insufficiency: 20-30 ng/mL (50-75 nmol/L)Sufficiency: 30-100 ng/mL (75-250 nmol/L)Toxicity: >100 ng/mL (>250 nmol/L) Vitamin D,25 Hydroxyon 08-31 Vitamin D 25-OH 13.9 ng/mL Low 30-100 [facility] Comment on above: Order Comment: [employer]TER.MARSHALL RAE LIVER AND GGTPNP.EDSON RAE CMP,CBCD,MIALB,TSH,B12,VITD Result Comment: Antonieta min D Status Deficiency: <20 ng/mL (50nmol/L) Insufficiency: 20-30 ng/mL (50-75 nmol/L) Sufficiency: 30-100 ng/mL (75-250 nmol/L) Toxicity: >100 ng/mL (>250 nmol/L) Performed By: #### L 502.0500, L501.9520 #### [facility] [address] [facility] [place], [address] White blood cell (WBC) count Ordered By: Judith Hardin on 08-31-2024 WBC (Bld) [#/Vol] 6.4 10*3/uL 4.4-11.0 [facility] Esophagus Dual Contraston Esophagus Dual Contrast [facility] Services [address], [place] [address] Esophagus Dual Contrast MR#: [id number] Acct: [id number] Name: LEAH JERRY Rep #: [id number] : 1965 F 58 From: Jason Catalan MD PCP: KINGS Ruby, [employer]TER-C Status: REG CLI Study: Esophagus Dual Contrast Date of Exam: 08/24/24 Exam# [id number] Ordering Dr: Judith Hardin [employer]- C EXAM: DOUBLE-CONTRAST ESOPHAGRAM CLINICAL HISTORY: ENDOSCOPE LAST WEEK SHOWED VARICOSITIES AND POSSIBLE DISTAL MASS. COMPARISON: No relevant prior. TECHNIQUE: Following the ingestion of effervescent granules and high density barium, swallowing mechanism was evaluated under fluoroscopy in the oblique, AP, lateral, and RPO positions. Barium tablet was also utilized. Imaging sequences were documented as usual. FLUOROSCOPIC TIME: 85 sec Dose: 9.88 mGy FLUOROGRAPHIC IMAGES: 7 imaging sequences. FINDINGS: No abnormalities were seen in the hypopharynx. A few mild tertiary contractions were noted in the distal esophagus. Following ingestion of the barium tablet, no delay was seen while passing through the esophagus through the esophagogastric junction. No constricting or obstructing lesions were demonstrated. No intraluminal filling defects. No ulcerations. A few episodes of mild gastroesophageal reflux. No hiatal hernia was demonstrated. RAD/Esophagus Dual Contrast IMPRESSION: Mild tertiary contractions were noted in the distal esophagus. No masses or other intrinsic abnormalities are demonstrated. No abnormalities demonstrated in the hypopharynx. Reading Location: [place] [address] CC: JHONY Hardin; [facility] JHONY Fields Administrative Support Specialist: Signed Normal [facility] HIP, UNI W/ Pelvis 2-3 Views on 08-17-2024 HIP, UNI W/ Pelvis 2-3 Views [facility] Services [address], [place] [address] HIP, UNI W/ Pelvis 2-3 Views MR#: [id number] Acct: [id number] Name: LEAH JERRY Rep #: [id number] : 1965 F 58 From: Briseyda Zapien MD PCP: Taylor Fields, [facility], [employer]TER-C Status: DEP AMB Study: HIP, UNI W/ Pelvis 2-3 Views Date of Exam: 06/12 Exam# [id number] Ordering Dr: Jodie Garber [employer]-Yajaira EXAM: XR Right Hip With Pelvis When Performed, 1 View CLINICAL INDICATION: PAIN TECHNIQUE: Frontal view of the right hip with pelvis when performed. COMPARISON: No relevant prior studies available. FINDINGS: BONES/JOINTS: Mild degenerative change of the hip joints, bilaterally. No acute fracture. No dislocation. SOFT TISSUES: Unremarkable. RAD/HIP, UNI W/ Pelvis 2-3 Views IMPRESSION: Degenerative changes as above. Reading Location: [place] CC: JHONY Garber; [facility] JHONY Fields Administrative Support Specialist: Signed Normal [facility] L/S Spine Min 4 Viewson L/S Spine Min 4 Views [facility] Imaging Services [address] [place] [address] L/S Spine Min 4 Views MR#: [id number] Acct: [id number] Name: LEAH JERRY Rep #: [id number] : 1965 F 58 From: Briseyda Zapien MD PCP: KINGS Ruby, [employer]TER-Yajaira Status: DEP AMB Study: L/S Spine Min 4 Views Date of Exam: 08/17/24 Exam# [id number] Ordering Dr: Jodie Garber EXAM: XR Abdomen, 1 View CLINICAL INDICATION: PAIN TECHNIQUE: Frontal supine view of the abdomen/pelvis. COMPARISON: No relevant prior studies available. FINDINGS: GASTROINTESTINAL TRACT: Unremarkable. No dilation. BONES/JOINTS: Moderate facet arthropathy, endplate degenerative changes and disc disease of L5-S1. No acute fracture or significant dynamic instability. RAD/L/S Spine Min 4 Views IMPRESSION: No acute fracture or significant dynamic instability. Reading Location: [place] CC: JHONY Garber; [facility] JHONY Fields Administrative Support Specialist: Signed Normal [facility] Orthopedic Visit Reporton Orthopedic Visit Report [facility] [address] [place] [address] [address] [place] [address] OFFICE VISIT Date of Service: 08/17/24 MR#: [id number] Acct: [id number] Name: LEAH JERRY Rep #: [id number] : 1965 Provider: JHONY smith Age/Sex: 58/F Location: [facility] Status: Signed Intake Vital Signs 08/13/24 06:41 08/16/24 14:50 Height 5 ft 2 in 5 ft 2 in Intake Visit Reasons: BL HIPS/RT KNEE Chief Complaint: Bilateral Hips/Right Knee Accompanied by: Self Is patient in pain?: Yes Pain scale (1-10): 8 Allergies Tetracyclines Allergy (Intermediate, Verified 08/17/24 09:56) Rash aminophylline Allergy (Verified 08/17/24 09:56) Swelling amphetamine (From Adderall) Allergy (Verified 08/17/24 09:56) Other dextroamphetamine (From Adderall) Allergy (Verified 08/17/24 09:56) Other dulaglutide (From Trulicity) Allergy (Verified 08/17/24 09:56) Vomiting Iodinated Contrast Media (CT) Allergy (Verified 08/17/24 09:56) Swelling iodine Allergy (Verified 08/17/24 09:56) Swelling povidone-iodine (From Betadine) Allergy (Verified 08/17/24 09:56) Swelling shellfish derived Allergy (Verified 08/17/24 09:56) Swelling Sulfa (Sulfonamide Antibiotics) Allergy (Verified 08/17/24 09:56) Swelling buspirone (From BuSpar) Adverse Reaction (Intermediate, Verified 08/17/24 09:56) Other allantoin (From Blistex) Adverse Reaction (Verified 08/17/24 09:56) Swelling aloe vera (From Blistex) Adverse Reaction (Verified 08/17/24 09:56) Swelling camphor (From Blistex) Adverse Reaction (Verified 08/17/24 09:56) Swelling chamomile flower (From Blistex) Adverse Reaction (Verified 08/17/24 09:56) Swelling dimethicone (From Blistex) Adverse Reaction (Verified 08/17/24 09:56) Swelling herbal complex no.57 (From Blistex) Adverse Reaction (Verified 08/17/24 09:56) Swelling homosalate (From Blistex) Adverse Reaction (Verified 08/17/24 09:56) Swelling menthol (From Blistex) Adverse Reaction (Verified 08/17/24 09:56) Swelling meradimate (From Blistex) Adverse Reaction (Verified 08/17/24 09:56) Swelling octinoxate (From Blistex) Adverse Reaction (Verified 08/17/24 09:56) Swelling octyl salicylate (From Blistex) Adverse Reaction (Verified 08/17/24 09:56) Swelling oxybenzone (From Blistex) Adverse Reaction (Verified 08/17/24 09:56) Swelling padimate O (From Blistex) Adverse Reaction (Verified 08/17/24 09:56) Swelling petrolatum,hydrophilic (From Blistex) Adverse Reaction (Verified 08/17/24 09:56) Swelling phenol (From Blistex) Adverse Reaction (Verified 08/17/24 09:56) Swelling tetracycline Adverse Reaction (Verified 08/17/24 09:56) Rash Medications ???Medication ???Instructions ???Recorded ???Confirmed ???Type trazodone 150 mg tablet 150 mg PO QHS anxiety 07/15/2106/12 History albuterol sulfate 90 mcg/actuation 2 puff inhalation Q6H PRN 08/17/24 Rx aerosol inhaler shortness of breath or wheezing #8.5 grams ibuprofen 500 mg PO Q6H PRN PRN Pain 2 08/17/24 History hydroxyzine HCl 25 mg tablet 25 mg PO TID PRN anxiety 11/04/22 08/17/24 History cetirizine 10 mg tablet 10 mg PO BID 03/06/23 08/17/24 His tory fluticasone fur. 200 mcg-umeclid 1 inh inhalation Q24H 04/08/2306/12 History 62.5 mcg-vilant 25 mcg inhalat.powder (Trelegy Ellipta) lanolin alcohols-mineral 1 applic topical DAILY 04/08/23 History oil-w.petrolatum-ceresin topical cream (Minerin Creme topical) sertraline 50 mg tablet 50 mg PO DAILY 04/08/23 08/17/24 H istory hydroxyzine HCl 25 mg tablet 50 mg PO QHS 06/23/23 08/17/24 His tory dapagliflozin propanediol 10 mg 10 mg PO DAILY 10/01/23 08/17/24 H istory tablet (Farxiga) omeprazole 40 mg capsule,delayed 40 mg PO BID 10/01/23 08/17/24 His tory release triamcinolone acetonide 0.1 % 1 applic topical BID 10/01/2306/12 History topical cream atorvastatin 20 mg tablet 20 mg PO QHS 10/28/23 08/17/24 His tory metformin 500 mg tablet 500 mg PO BID 03/12/24 08/17/24 Hi story propranolol 20 mg tablet 20 mg PO BID 03/12/24 08/17/24 His tory metoclopramide HCl 10 mg tablet 10 mg PO Q6H PRN nausea and 08/17/24 Rx vomiting #20 tabs benzonatate 100 mg capsule 100 mg PO BID PRN cough 06/14/24 0 08/17/24 History dicyclomine 20 mg tablet 20 mg PO TID PRN abdominal pain 08/17/24 History gabapentin 100 mg capsule 300 mg PO TID 06/14/24 08/17/24 Hi story ondansetron 4 mg disintegrating 4 mg PO Q8H PRN nausea and vomitin g 06/14/24 08/17/24 History tablet albuterol sulfate 2.5 mg/3 mL 2.5 mg inhalation Q4H PRN PRN 07/1808/17/24 History (0.083 %) solution for nebulization shortness of breath or wheezing cyclobenzaprine 5 mg tablet 5 mg PO BID 08/13/24 08/17/24 Hist ory fl (more content not included)... Normal [facility] Abdomen Limitedon 08-16-2024 Abdomen Limited [facility] [address], [place] [id number] Abdomen Limited MR#: [id number] Acct: [id number] Name: LEAH JERRY Rep #: [id number] : 1965 F 58 From: Henrry rodriguez MD PCP: KINGS uRby, [employer]-C Status: REG CLI Study: Abdomen Limited Date of Exam: 08/16/24 Exam# [id number] Ordering Dr: Judith Hardin [employer]- C PROCEDURE: ABDOMEN LIMITED 08/16/2024 REASON FOR EXAM: ESOPH VARICES COMPARISON: Comparison is made with prior study dated March 25, 2024. FINDINGS: Liver: Diffusely echogenic suggesting fatty infiltration. The liver measures 15.2 cm. No focal abnormality is seen.. Scalloped contour of the liver suggestive of possible cirrhosis. Gallbladder: No stones, sludge, wall thickening or tenderness. Common bile duct: Normal measuring 5.9 mm. Pancreas: Normal Other: Right kidney is unremarkable. Mild splenomegaly measuring 14 cm x 5.2 cm 4.5 cm. US/Abdomen Limited IMPRESSION: Fatty infiltration of the liver. Splenomegaly. Reading Location: [place] [address] CC: JHONY Hardin; [facility] JHONY Fields Administrative Support Specialist: Signed Normal [facility] Bedside Glucoseon 08-13-2024 FINGERSTICK GLU 138 mg/dL High 74-106 [facility] Comment on above: Result Comment: NORBERTO SPAULDING OF PATIENT CARE PER NURSING PROTOCOL Performed By: #### L 501.080 #### [facility] [address] [facility] [place], [address] EGD Reporton 08-13-2024 EGD Report [facility] Medical Records Department [address] [facility] [place] [address] EGD Report MR#: [id number] Acct: [id number] Name: LEAH JERRY Rep #: [id number] : 1965 58 From: James Smith DO PCP: KINGS Ruby, [employer]-C Status:REG [facility] Patient Name: Leah Jerry Procedure Date: 08/13/2024 7:26 AM Date of : 1965 Age: 58 Procedure: Upper GI endoscopy Indications: Epigastric abdominal pain, Dysphagia, Esophageal varices Providers: James Smith DO Referring MD: Taylor Canales, Garnett Mechanic-c Medicines: Monitored Anesthesia Care Patient Profile: This is a 58 year old female. Refer to note in patient chart for documentation of history and physical. Patient has symptoms of dysphagia with both liquids and solids and chronic heartburn. Complications: No immediate complications. Procedure: Pre-Anesthesia Assessment: - Prior to the procedure, a History and Physical was performed, and patient medications and allergies were reviewed. The patient is competent. The risks and benefits of the procedure and the sedation options and risks were discussed with the patient. All questions were answered and informed consent was obtained. Patient identification and proposed procedure were verified by the physician in the pre-procedure area. Mental Status Examination: alert and oriented. Airway Examination: normal oropharyngeal airway and neck mobility. Respiratory Examination: clear to auscultation. CV Examination: normal. ASA Grade Assessment: II - A patient with mild systemic disease. After reviewing the risks and benefits, the patient was deemed in satisfactory condition to undergo the procedure. The anesthesia plan was to use monitored anesthesia care (MAC). Immediately prior to administration of medications, the patient was re-assessed for adequacy to receive sedatives. The heart rate, respiratory rate, oxygen saturations, blood pressure, adequacy of pulmonary ventilation, and response to care were monitored throughout the procedure. The physical status of the patient was re-assessed after the procedure. After obtaining informed consent, the endoscope was passed under direct vision. Throughout the procedure, the patient's blood pressure, pulse, and oxygen saturations were monitored continuously. The Endoscope was introduced through the mouth, and advanced to the second part of duodenum. The upper GI endoscopy was accomplished without difficulty. The patient tolerated the procedure well. Scope In: 7:33:29 AM Scope Out: 7:36:28 AM Total Procedure Duration Time 0 hours 2 minutes 59 seconds Findings: Abnormal motility was noted in the esophagus. The cricopharyngeus was abnormal. There are extra peristaltic waves in the esophageal body. The distal esophagus/lower esophageal sphincter is spastic, but gives up passage to the endoscope. Tertiary peristaltic waves are noted. Biopsies were taken with a cold forceps for histology. Verification of patient identification for the specimen was done. Estimated blood loss was minimal. Small (< 5 mm) varices were found in the lower third of the esophagus. They were 2 mm in largest diameter. A small hiatal hernia was present. A medium amount of food (residue) was found in the gastric body and in the gastric antrum. Suspect gastroparesis due to patient symptoms and retained gastric contents. No gross lesions were noted in the duodenal bulb. Impression: - Abnormal esophageal motility, consistent with esophageal spasm. Biopsied. - Small (< 5 mm) esophageal varices. - Small hiatal hernia. - A medium amount of food (residue) in the stomach. - Gastroparesis, secondary to diabetes mellitus type II. - No gross lesions in the duodenal bulb. Recommendation: - Discharge patient to home. - Resume previous diet. - Continue present medications. - Await pathology results. Procedure Code(s): --- Professional --- 18871, Esophagogastroduodenoscopy , flexible, transoral; with biopsy, single or multiple CPT copyright 2021 [employer]. All rights reserved. The codes documented in this report are preliminary and upon auto suspension and steering mechanic review may be revised to meet current compliance requirements. James Smith DO 08/13/2024 7:42:11 AM This report has been signed electronically. Number of Addenda: 0 Note Initiated On: 08/13/2024 7:26 AM 08/13/24741 Date James Smith DO Cosigner Signature: Date (if indicated) CC: [employer] Taylor Fields; James Smith, Date Dictated: 08/13/24725 Date Transcribed: Administrative Support Specialist: JENNY Signed Normal [facility] Glucose measurement at [facility] deOrdered By: James Smith on 08-13-2024 Bedside Glucose (Misc Panel) 138 mg/dL High 74-106 [facility] Comment on above: MANAGEMENT OF PATIEN T CARE PER NURSING PROTOCOL Glucose [Mass/Vol] 138 mg/dL High 74-106 [facility] Comment on above: MANAGEMENT OF PATIEN T CARE PER NURSING PROTOCOL MR/POSTOP.Braulio 08-13-2024 MR/POSTOP.[facility] Medical Records Department [address] [facility] [place] [address] Anesthesia Postop Eval I 08/13/24745 MR#: [id number] Acct: [id number] Name: LEAH JERRY Rep #: [id number] : 1965 58 From: Geovanni Bland PCP: KINGS Ruby, [employer]-C Status:REG SDC Y Race: C Location: [place] [address] Anesthesia: Postop Eval I Current Vital Signs Temperature: 97.5 F Pulse Rate: 72 Blood Pressure: 140/74 Respiratory Rate: 16 Pulse Ox: 95 Oxygen Delivery Method: Room Air Assessment Airway patent: Yes Spontaneous unlabored respirations: Yes Mental status: Asleep nausea: No Vomiting: No Anesthesia Complication: No Fluid Hydration Crystalloid volume administer (ml): 30 Total IV fluid infused: 30 Progress Note Anesthesia document: Postop Eval 1 completed: Yes 08/13/24747 Date Geovanni Gomez Signature: Date CC: Signed Normal [facility] MR/[id number] 08-13-2024 /POSTOPAN2 [facility] Medical Records Department [address] [place] [address] Anesthesia Postop Eval II 08/13/24 0831 MR#: [id number] Acct: [id number] Name: LEAH JERRY Favio Rep #: [id number] : 1965 58 From: Jose Angel Lyon MD PCP: [employer] Ruby, [employer] Status:REG SDC Y Race: C Location: [place] [address] Anesthesia Postop Eval I Sum Postop Eval Completion status Anesthesia document: Postop Eval 1 completed: Yes Anesthesia Postop Eval I Summary Anesthesia Postop Eval I Summary: Anesthesia Postop Eval I: Assessment Summary Airway patent Yes 08/13/24 07:48 [email or web address] Spontaneous unlabored Yes 08/13/24 07:48 [email or web address] respirations Mental status Asleep 08/13/24 07:48 [email or web address] nausea No 08/13/24 07:48 [email or web address] Vomiting No 08/13/24 07:48 [email or web address] Anesthesia Postop Eval I: Fluid Summary Crystalloid volume administer 30 08/13/24 07:48 [email or web address] (ml) Colloids volume administered ( ml) Blood Product volume administered (ml) Total IV fluid infused 30 08/13/24 07:48 [email or web address] Anesthesia Postop Eval I: Summary Notes Anesthesia Complication No 08/13/24 07:48 [email or web address] Anesthesia Complication Comment: Post-operative progress note Anesthesia: Postop Eval II Evaluation Mental status: Awake Pain Level: 0 nausea: No Vomiting: No 08/13/24831 Date Jose Angel Gomez Signature: Date CC: Signed Normal [facility] Surgery Specimen Level Alex 08-13-2024 Surgery Specimen Level IV Patient Age/Sex Location Account Attending Physician LEAH JERRY/F EN [id number] James Smith DO Specimen: [id number] Received: 08/13/24 Status: KANA Arriaga Num: [id number] Spec Type: EGD BIOPSY Subm Dr: James Smith DO HEADER OPERATION: EGD and biopsy PRE-OP DIAGNOSIS: Dysphagia, esophageal varices TISSUE SUBMITTED: A- Distal esophagus biopsy MICROSCOPIC DIAGNOSIS A. Distal esophagus, biopsy: * Cardio-oxyntic mucosa negative for goblet cell metaplasia. * No squamous mucosa seen. MICROSCOPIC DESCRIPTION Slides are reviewed. GROSS DESCRIPTION A. Received in fixative is one container labeled with the patient's name and designated Distal esophagus biopsy. The specimen consists of one irregular fragment of light christian soft tissue that measures 0.4 x 0.3 x 0.2 cm. The specimen is totally submitted in one cassette. 08/13/2024 CPT:85391 Patient Age/Sex Location Account Attending Physician JERRY,LEAH R 58/F EN [id number] James Smith, DO Signed (signature on file) Dr. Maria Del Rosario Tsai MD 08/17/24 1736 Normal [facility] Comment on above: Performed By: #### L 502.0500, L501.9520 #### [facility] Laboratory [address] [place], [address] Chest PA and Lateralon 07-09 Chest PA and Lateral [facility] Imaging Services [address] [place], [place] [id number] Chest PA and Lateral MR#: [id number] Acct: [id number] Name: LEAH JERRY Favio Rep #: [id number] : 1965 F 58 From: Adonis Wesley MD PCP: [employer] Ruby, [employer]-C Status: [facility] CLI Study: Chest PA and Lateral Date of Exam: 07/09/24 Exam# [id number] Ordering Dr: Katherin Cook [employer] PROCEDURE: CHEST PA AND LATERAL REASON FOR EXAM: Dyspnea TECHNIQUE: Frontal and lateral views of the chest. COMPARISON: 11/25/2022 FINDINGS: The heart size is normal. There are atherosclerotic calcifications of the thoracic aorta. There are chronic-appearing changes of both lungs. The bones are unremarkable. RAD/Chest PA and Lateral IMPRESSION: No radiographic evidence of acute cardiopulmonary disease. Stable right basilar scarring Reading Location: [facility] CC: [employer] Taylor Fields; Katherin [employer] Joey Administrative Support Specialist: Signed Normal [facility] 25([place])D3 [facility] 2024 25-hydroxyvitamin D3 [Mass/Vol] 15.2 ng/mL Low 31.0-80.0 [facility] Comment on above: Order Comment: Roseanne estrada Type: BLOOD SPECIMEN Ordering Facility: [facility] Address: [address] [place] [address] Result Comment: Clas sification of 25 [place] Vitamin D status: Deficiency/Insufficiency: < or = 30 ng/ml. Sufficiency/Optimal Levels: 31-80 ng/mL Toxicity: > 100 ng/mL. Test performed by chemiluminescent immunoassay. Performed By: #### A NAIFR #### [facility] CLIA [id number] [address] [place] [address] [place] 25-hydroxyvitamin D3 [Mass/V ol]on 06-17-2024 Interpretation and review of laboratory results Abnormal [facility] The reference range interval was based on an analysis of samples from healthy adults and may not pertain to children from 0-18 years old. [facility] ATIF BY IFA WITH REFLEXon Nuclear Ab Ql (S) Negative Normal Negative [facility] Comment on above: Order Comment: Roseanne estrada Type: BLOOD SPECIMEN Ordering Facility: [facility] Address: [address] [place] [address] Result Comment: Anti -nuclear antibody test is used as an aid in diagnosis of systemic autoimmune diseases. Where positive and clinically warranted, follow-up using disease-specific testing is recommended. Low positive titers are not uncommon with advanced age, certain chronic infections, and malignancies among others. Test methodology: Indirect fluorescence immunoassay (IFA) using HEp-2 cells. Performed By: #### A NAIFR #### [facility] CLIA [id number] [address] [place] [address] [place] BLOOD TB SCREENon 06-17-2024 M. tuberculosis tuberculin stim IFN-g Ql (Bld) Negative Normal [facility] Comment on above: Order Comment: Roseanne estrada Type: BLOOD SPECIMEN Ordering Facility: [facility] Address: [address] [place] [address] Performed By: #### A NAIFR #### [facility] CLIA [id number] [address] [place] [address] [place] MITOGEN MINUS NIL >9.99 Normal >=0.50 [facility] Comment on above: Order Comment: Roseanne estrada Type: BLOOD SPECIMEN Ordering Facility: [facility] Address: [address] [place] [address] Performed By: #### A NAIFR #### [facility] CLIA [id number] [address] [place] [address] [place] TB GAMMA INTERPRETATION Infection with M. tuberculosis complex is unlikely. If latent tuberculosis infection is highly suspected, a negative result does not rule out the infection. Specimens from immunocompromised patients and those <5 years of age may show false negative results. In case of a contact investigation, please repeat 8-12 weeks after a known exposure. Normal [facility] Comment on above: Order Comment: Roseanne estrada Type: BLOOD SPECIMEN Ordering Facility: [facility] Address: [address] [place] [address] Performed By: #### A NAIFR #### [facility] CLIA [id number] [address] [place] [address] [place] TB NIL 0.01 IU/mL Normal <=8.00 [facility] Comment on above: Order Comment: Speci men Type: BLOOD SPECIMEN Ordering Facility: [facility] Address: [address] [place] [address] Performed By: #### A NAIFR #### [facility] CLIA [id number] [address] [place] [address] [place] TB1 AG MINUS NIL 0.03 IU/mL Normal <0.35 [facility] Comment on above: Order Comment: Speci men Type: BLOOD SPECIMEN Ordering Facility: [facility] Address: [address] [place] [address] Performed By: #### A NAIFR #### [facility] CLIA [id number] [address] [place] [address] [place] TB2 AG MINUS NIL 0.03 IU/mL Normal <0.35 [facility] Comment on above: Order Comment: Speci men Type: BLOOD SPECIMEN Ordering Facility: [facility] Address: [address] [place] [address] Performed By: #### A NAIFR #### [facility] CLIA [id number] [address] [place] [address] [place] C-REACTIVE PROTEINon 025 CRP [Mass/Vol] mg/dL [facility] - 0.9 mg/dL [facility] CBC W Auto Differential pane l (Bld)on 06-17-2024 Basophils (Bld) [#/Vol] 0.04 10*3/uL [facility] Basophils/100 WBC (Bld) 0.7 % [facility] Differential cell count method Nom (Bld) Auto [facility] Eosinophils (Bld) [#/Vol] 0.36 10*3/uL [facility] Eosinophils/100 WBC (Bld) 6.5 % [facility] Erythrocyte distribution width (RBC) [Ratio] 13.3 % 11.5 - 15.0 % [facility] Hematocrit (Bld) [Volume fraction] 40.6 % 36.0 - 46.0 % [facility] Hemoglobin (Bld) [Mass/Vol] 12.5 g/dL 11.5 - 15.5 g/dL [facility] Immature granulocytes (Bld) [#/Vol] [facility] Immature granulocytes/100 WBC (Bld) 0.4 % [facility] Lymphocytes (Bld) [#/Vol] 1.72 10*3/uL [facility] Lymphocytes/100 WBC (Bld) 31.1 % [facility] MCH (RBC) [Entitic mass] 27.5 pg 26.0 - 34.0 pg [facility] MCHC (RBC) [Mass/Vol] 30.8 g/dL 30.5 - 36.0 g/dL [facility] MCV (RBC) [Entitic vol] 89.2 fL 80.0 - 100.0 fL [facility] Monocytes (Bld) [#/Vol] 0.62 10*3/uL [facility] Monocytes/100 WBC (Bld) 11.2 % [facility] Neutrophils (Bld) [#/Vol] 2.77 10*3/uL [facility] Neutrophils/100 WBC (Bld) 50.1 % [facility] Nucleated RBC (Bld) [#/Vol] [facility] Nucleated RBC/100 WBC (Bld) [Ratio] 0.0 % /100 WBC [facility] Platelet mean volume (Bld) [Entitic vol] 9.5 fL 9.0 - 12.7 fL [facility] Platelets (Bld) [#/Vol] 243 10*3/uL [facility] RBC (Bld) [#/Vol] 4.55 10*6/uL 3.90 - 5.2 0 m/uL [facility] WBC (Bld) [#/Vol] 5.53 10*3/uL [facility] Basophils (Bld) [#/Vol] 0.04 10*3/uL Normal <0.11 [facility] Comment on above: Order Comment: Speci men Type: BLOOD SPECIMEN Ordering Facility: [facility] Address: [address] [place] [address] Performed By: #### 5 7021-8, 4537-7 #### [facility] CLIA [id number] [address] [place] [address] [place] Basophils/100 WBC (Bld) 0.7 % Normal [facility] Comment on above: Order Comment: Speci men Type: BLOOD SPECIMEN Ordering Facility: [facility] Address: [address] [place] [address] Performed By: #### 5 7021-8, 4537-7 #### [facility] CLIA [id number] [address] [place] [address] [place] Differential cell count method Nom (Bld) Auto Normal [facility] Comment on above: Order Comment: Speci men Type: BLOOD SPECIMEN Ordering Facility: [facility] Address: [address] [place] [address] Performed By: #### 5 7021-8, 4536-7 #### [facility] CLIA [id number] [address] [place] [address] [place] Eosinophils (Bld) [#/Vol] 0.36 10*3/uL Normal <0.46 [facility] Comment on above: Order Comment: Speci men Type: BLOOD SPECIMEN Ordering Facility: [facility] Address: [address] [place] [address] Performed By: #### 5 7021-8, 4536-7 #### [facility] CLIA [id number] [address] [place] [address] [place] Eosinophils/100 WBC (Bld) 6.5 % Normal [facility] Comment on above: Order Comment: Speci men Type: BLOOD SPECIMEN Ordering Facility: [facility] Address: [address] [place] [address] Performed By: #### 5 7021-8, 7-7 #### [facility] CLIA [id number] [address] [place] [address] [place] Erythrocyte distribution width (RBC) [Ratio] 13.3 % Normal 11.5-15.0 [facility] Comment on above: Order Comment: Speci men Type: BLOOD SPECIMEN Ordering Facility: [facility] Address: [address] [place] [address] Performed By: #### 5 7021-8, 7-7 #### [facility] CLIA [id number] [address] [place] [address] [place] Hematocrit (Bld) [Volume fraction] 40.6 % Normal 36.0-46.0 [facility] Comment on above: Order Comment: Speci men Type: BLOOD SPECIMEN Ordering Facility: [facility] Address: [address] [place] [address] Performed By: #### 5 7021-8, 4536-7 #### [facility] CLIA [id number] [address] [place] [address] [place] Hemoglobin (Bld) [Mass/Vol] 12.5 g/dL Normal 11.5-15.5 [facility] Comment on above: Order Comment: Speci men Type: BLOOD SPECIMEN Ordering Facility: [facility] Address: [address] [place] [address] Performed By: #### 5 7021-8, 4536-7 #### [facility] CLIA [id number] [address] [place] [address] [place] Immature granulocytes (Bld) [#/Vol] 10*3/uL Normal <0.10 [facility] Comment on above: Order Comment: Speci men Type: BLOOD SPECIMEN Ordering Facility: [facility] Address: [address] [place] [address] Performed By: #### 5 7021-8, 4536-7 #### [facility] CLIA [id number] [address] [place] [address] [place] Immature granulocytes/100 WBC (Bld) 0.4 % Normal [facility] Comment on above: Order Comment: Speci men Type: BLOOD SPECIMEN Ordering Facility: [facility] Address: [address] [place] [address] Performed By: #### 5 7021-8, 7-7 #### [facility] CLIA [id number] [address] [place] [address] [place] Lymphocytes (Bld) [#/Vol] 1.72 10*3/uL Normal 1.00-4.00 [facility] Comment on above: Order Comment: Speci men Type: BLOOD SPECIMEN Ordering Facility: [facility] Address: [address] [place] [address] Performed By: #### 5 7021-8, 4537-7 #### [facility] CLIA [id number] [address] [place] [address] [place] Lymphocytes/100 WBC (Bld) 31.1 % Normal [facility] Comment on above: Order Comment: Speci men Type: BLOOD SPECIMEN Ordering Facility: [facility] Address: [address] [place] [address] Performed By: #### 5 7021-8, 4537-7 #### [facility] CLIA [id number] [address] [place] [address] [place] MCH (RBC) [Entitic mass] 27.5 pg Normal 26.0-34.0 [facility] Comment on above: Order Comment: Speci men Type: BLOOD SPECIMEN Ordering Facility: [facility] Address: [address] [place] [address] Performed By: #### 5 7021-8, 4537-7 #### [facility] CLIA [id number] [address] [place] [address] [place] MCHC (RBC) [Mass/Vol] 30.8 g/dL Normal 30.5-36.0 [facility] Comment on above: Order Comment: Speci men Type: BLOOD SPECIMEN Ordering Facility: [facility] Address: [address] [place] [address] Performed By: #### 5 7021-8, 4537-7 #### [facility] CLIA [id number] [address] [place] [address] [place] MCV (RBC) [Entitic vol] 89.2 fL Normal 80.0-100.0 [facility] Comment on above: Order Comment: Speci men Type: BLOOD SPECIMEN Ordering Facility: [facility] Address: [address] [place] [address] Performed By: #### 5 7021-8, 4537-7 #### [facility] CLIA [id number] [address] [place] [address] [place] Monocytes (Bld) [#/Vol] 0.62 10*3/uL Normal <0.87 [facility] Comment on above: Order Comment: Speci men Type: BLOOD SPECIMEN Ordering Facility: [facility] Address: [address] [place] [address] Performed By: #### 5 7021-8, 4536-7 #### [facility] CLIA [id number] [address] [place] [address] [place] Monocytes/100 WBC (Bld) 11.2 % Normal [facility] Comment on above: Order Comment: Speci men Type: BLOOD SPECIMEN Ordering Facility: [facility] Address: [address] [place] [address] Performed By: #### 5 7021-8, 4536-7 #### [facility] CLIA [id number] [address] [place] [address] [place] Neutrophils (Bld) [#/Vol] 2.77 10*3/uL Normal 1.45-7.50 [facility] Comment on above: Order Comment: Speci men Type: BLOOD SPECIMEN Ordering Facility: [facility] Address: [address] [place] [address] Performed By: #### 5 7021-8, 4536-7 #### [facility] CLIA [id number] [address] [place] [address] [place] Neutrophils/100 WBC (Bld) 50.1 % Normal [facility] Comment on above: Order Comment: Speci men Type: BLOOD SPECIMEN Ordering Facility: [facility] Address: [address] [place] [address] Performed By: #### 5 7021-8, 4537-7 #### [facility] CLIA [id number] [address] [place] [address] [place] Nucleated RBC (Bld) [#/Vol] 10*3/uL Normal <0.01 [facility] Comment on above: Order Comment: Speci men Type: BLOOD SPECIMEN Ordering Facility: [facility] Address: [address] [place] [address] Performed By: #### 5 7021-8, 4537-7 #### [facility] CLIA [id number] [address] [place] [address] [place] Nucleated RBC/100 WBC (Bld) [Ratio] 0.0 /100 WBC Normal [facility] Comment on above: Order Comment: Speci men Type: BLOOD SPECIMEN Ordering Facility: [facility] Address: [address] [place] [address] Performed By: #### 5 7021-8, 4537-7 #### [facility] CLIA [id number] [address] [place] [address] [place] Platelet mean volume (Bld) [Entitic vol] 9.5 fL Normal 9.0-12.7 [facility] Comment on above: Order Comment: Speci men Type: BLOOD SPECIMEN Ordering Facility: [facility] Address: [address] [place] [address] Performed By: #### 5 7021-8, 4537-7 #### [facility] CLIA [id number] [address] [place] [address] [place] Platelets (Bld) [#/Vol] 243 10*3/uL Normal 150-400 [facility] Comment on above: Order Comment: Speci men Type: BLOOD SPECIMEN Ordering Facility: [facility] Address: [address] [place] [address] Performed By: #### 5 7021-8, 4537-7 #### [facility] CLIA [id number] [address] [place] [address] [place] RBC (Bld) [#/Vol] 4.55 10*6/uL Normal 3.90-5.20 [facility] Comment on above: Order Comment: Speci men Type: BLOOD SPECIMEN Ordering Facility: [facility] Address: [address] [place] [address] Performed By: #### 5 7021-8, 4537-7 #### [facility] CLIA [id number] [address] [place] [address] [place] WBC (Bld) [#/Vol] 5.53 10*3/uL Normal 3.70-11.00 [facility] Comment on above: Order Comment: Speci men Type: BLOOD SPECIMEN Ordering Facility: [facility] Address: [address] [place] [address] Performed By: #### 5 7021-8, 4537-7 #### [facility] CLIA [id number] [address] [place] [address] [place] CNOVon 06-17-2024 CNOV Office Visit (RHEUMN ) -- LEAH JERRY ([id number]) 1965 F Date Time Provider Department 06/17/24 8:30 AM MIMI LOTT During your visit today, we recorded the following information about you: Temperature Pulse Blood pressure Weight 97.8 degrees 75/minute 124/69 61.6 kg Height 1.575 m Mimi Lott 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 My final recommendations will be communicated back to the requesting physician by way of shared Medical record or letter to requesting physician via US mail. HISTORY OF PRESENT ILLNESS Pt is referred by Grace Arguello NP (KARLENE) for abnormal labs PMH sig for Type 2 DM, asthma, HLD, severe GERD, HTN, migraine, bilat CTS, DDD, possible RMSV, osteoporosis with compression fx T12, vit D deficiency, bipolar I, right axillary abscess (November 2021), COVID+ (Feb 2022) SSA positive, remainder of JULIO negative (2023) dsDNA negative (2023) ANCA negative (2023) Anti-smooth Ab negative (2023) Anti-mitochondrial Ab negative (2023) CRP WNL (2023) Sed rate 7 (2023) Shoulder XR normal (2023) Knee XR normal (2023) Joints hurt all day Back, sacrum/coccyx Both hands hurt, middle knuckles swell Worse in the afternoon Diagnosed with osteopenia Had BMD 05/11/2024 (results not available) History of T12 compression fracture Unable to drink milk as a child due to asthma Eats yogurt, cheese, milk on cereal. No calcium supplement. RHEUMATOLOGIC REVIEW OF SYSTEMS June 17, 2024: + rash on bilat LE, lower back, under breasts and on scalp since ~2019 No ulcers in mouth or nose No photosensitivity No history of blood clots No miscarriages + fatigue, worse since 2021 No history of Raynaud's but does endorse red/purple/white changes to entire hand in cold No fevers No bright red painful eyes + sicca, dry mouth for the last 4 years No sob + cough every night No diarrhea, occasional constipation + chronic back pain + history of psoriasis No morning stiffness No weight loss No Achilles tendinitis/plantar fasciitis No enthesitis RELEVANT FAMILY HISTORY: Mom and sister have psoriasis. PGM had RA. Paternal aunt had UC. MGM, mother, sister with thyroid disease. Otherwise denies family history of autoimmune disease in first degree relatives: psoriasis, psoriatic arthritis, rheumatoid arthritis, multiple sclerosis, Crohn's/ulcerative colitis, thyroid disease, and/or type 1 DM. PAST MEDICAL HISTORY Diagnosis Date Arthritis Asthma Compression fracture of T12 vertebra (HCC) DDD (degenerative disc disease), lumbar Diabetes (HCC) Essential hypertension GERD (gastroesophageal reflux disease) Mixed hyperlipidemia Nodule of apex of right lung Osteopenia Psoriasis Vitamin D deficiency No past surgical history on file. FAMILY HISTORY Problem Relation Age of Onset Psoriasis Mother Thyroid Mother Heart Attack Mother COPD Mother Diabetes Mother Heart disease Father Blood Clots Father COPD Father Diabetes Father Osteoporosis Father Hypertension Sister Hyperlipidemia Sister other (Osteopenia) Sister Arthritis Sister Heart disease Sister Diabetes Sister Arthritis Sister other (Sciatica) Sister Thyroid Sister Thyroid Maternal Grandmother Diabetes Maternal Grandmother Hyperlipidemia Maternal Grandmother other (CHF) Maternal Grandmother Heart Attack Maternal Grandmother Diabetes Maternal Grandfather Rheumatologic disease Paternal Grandmother RA Diabetes Paternal Grandmother Heart disease Paternal Grandmother CABG x4 Liver Disease Paternal Grandfather Esophageal Cancer Paternal Grandfather Stomach Cancer Paternal Grandfather Liver Disease Half-brother Genetic Kidney Disease Half-brother Asthma Son Born 1982 No Known Problems Son Born 1984 Social History Tobacco Use Smoking status: Never Smokeless tobacco: Never Substance Use Topics Drug use: Yes Types: Marijuana Current Outpatient Medications Medication Sig acetaminophen 650 mg CR tablet Take by mouth. ONETOUCH VERIO TEST STRIPS test strip check blood sugar THREE TIMES DAILY FARXIGA 10 mg tablet Take 1 tablet by mouth every afternoon. dicyclomine (BENTYL) 20 mg tablet Take 20 mg by mouth three times a day. fluticasone (FLONASE) 50 mcg/actuation nasal spray SPRAY TWO SPRAYS IN EACH NOSTRIL EVERY DAY gabapentin (NEURONTIN) 300 mg capsule Take 300 mg by mouth three times a day. ONETOUCH DELICA PLUS LANCET 30 gauge check blood glucose 3 x daily for type 2 DM MINERIN CREME cream apply to lower legs liberally twice daily metoclopramide HCl (REGLAN) 10 mg tablet take one tablet by mouth every 6 hours as needed for nausea and vomiting NYSTOP powder APPLY TO THE AFFECTED AREA(S) TWICE DAILY U (more content not included)... Normal [facility] CRP SerPl-ncon 06-17-2024 CRP [Mass/Vol] mg/L Normal <0.9 [facility] Comment on above: Order Comment: Speci men Type: BLOOD SPECIMEN Ordering Facility: [facility] Address: [address] [place] [address] [place] [address] Performed By: #### 2 4323-8, 1987-09 #### [facility] CLIA [id number] [address] [place] [address] [place] CRP [Mass/Vol]on 06-17-2024 Interpretation and review of laboratory results Normal [facility] Comprehensive metabolic 2000 panelon 06-17-2024 Albumin [Mass/Vol] 4.1 g/dL 3.9 - 4.9 g/dL [facility] ALP [Catalytic activity/Vol] 178 U/L High 34 - 123 U/L [facility] ALT [Catalytic activity/Vol] 10 U/L 7 - 38 U/L [facility] Anion gap [Moles/Vol] 11 mmol/L 8 - 15 mmol/L [facility] AST [Catalytic activity/Vol] 24 U/L 13 - 35 U/L [facility] Bilirubin [Mass/Vol] 0.2 mg/dL 0.2 - 1 .3 mg/dL [facility] Calcium [Mass/Vol] 9.3 mg/dL 8.5 - 10. 2 mg/dL [facility] Chloride [Moles/Vol] 106 mmol/L 98 - 10 7 mmol/L [facility] CO2 [Moles/Vol] 26 mmol/L 22 - 30 mmol/L [facility] Creatinine [Mass/Vol] 0.68 mg/dL 0.58 - 0.96 mg/dL [facility] GFR/1.73 sq M.predicted among non-blacks MDRD (S/P/Bld) [Vol rate/Area] 100 mL/min/{1.73_m2} - PINF [facility] Comment on above: Estimated Glomerular Filtration Rate (eGFR) is calculated using the 2020 CKD-EPI creatinine equation. This equation utilizes serum creatinine, sex, and age as parameters. The creatinine assay has traceable calibration to isotope dilution-mass spectrometry. Refer to KDIGO guidelines for clinical interpretation. In patients with unstable renal function, e.g. those with acute kidney injury, the eGFR may not accurately reflect actual GFR. Glucose [Mass/Vol] 124 mg/dL High 74 - 99 mg/dL [facility] Comment on above: The [place] Di[employer] s Association (ADA) provides guidance for cutoff values for fasting glucose and random glucose. The ADA defines fasting as no caloric intake for at least 8 hours. Fasting plasma glucose results between 100 to 125 mg/dL indicate increased risk for diabetes (prediabetes). Fasting plasma glucose results greater than or equal to 126 mg/dL meet the criteria for diagnosis of diabetes. In the absence of unequivocal hyperglycemia, results should be confirmed by repeat testing. In a patient with classic symptoms of hyperglycemia or hyperglycemic crisis, random plasma glucose results greater than or equal to 200 mg/dL meet the criteria for diagnosis of diabetes. Reference: Standards of Medical Care in Diabetes 2016, [place] [employer]. Diabetes Care. 2016.39(Suppl 1). Interpretation and review of laboratory results Abnormal [facility] Potassium [Moles/Vol] 4.1 mmol/L 3.7 - 5.1 mmol/L [facility] Protein [Mass/Vol] 6.3 g/dL 6.3 - 8.0 g/dL [facility] Sodium [Moles/Vol] 143 mmol/L 136 - 144 mmol/L [facility] Urea nitrogen [Mass/Vol] 10 mg/dL 7 - 21 mg/dL [facility] Albumin [Mass/Vol] 4.1 g/dL Normal 3.9-4.9 [facility] Comment on above: Order Comment: Roseanne estrada Type: BLOOD SPECIMEN Ordering Facility: [facility] Address: [address] [place] [address] Performed By: #### 2 43207-24, 1987-09 #### [facility] CLIA [id number] [address] [place] [address] [place] ALP [Catalytic activity/Vol] 178 U/L High 34-123 [facility] Comment on above: Order Comment: Roseanne estrada Type: BLOOD SPECIMEN Ordering Facility: [facility] Address: [address] [place] [address] Performed By: #### 2 43207-24, 1987-09 #### [facility] CLIA [id number] [address] [place] [address] [place] ALT [Catalytic activity/Vol] 10 U/L Normal 7-38 [facility] Comment on above: Order Comment: Roseanne estrada Type: BLOOD SPECIMEN Ordering Facility: [facility] Address: [address] [place] [address] Performed By: #### 2 43207-24, 1987-09 #### [facility] CLIA [id number] [address] [address] [place] Anion gap [Moles/Vol] 11 mmol/L Normal 8-15 [facility] Comment on above: Order Comment: Speci men Type: BLOOD SPECIMEN Ordering Facility: [facility] Address: [address] [place], [place] [id number] Performed By: #### 2 4322-12, 1987-09 #### [facility] CLIA [id number] [address] [place], [place] [id number] [place] AST [Catalytic activity/Vol] 24 U/L Normal 13-35 [facility] Comment on above: Order Comment: Speci men Type: BLOOD SPECIMEN Ordering Facility: [facility] Address: [address] [place], [place] [address] Performed By: #### 2 4322-12, 1987-09 #### [facility] CLIA [id number] [address] [place], [place] [address] [place] Bilirubin [Mass/Vol] 0.2 mg/dL Normal 0.2-1.3 [facility] Comment on above: Order Comment: Speci men Type: BLOOD SPECIMEN Ordering Facility: [facility] Address: [address] [place], [place] [address] Performed By: #### 2 4322-12, 1987-09 #### [facility] CLIA [id number] [address] [place], [place] [address] [place] Calcium [Mass/Vol] 9.3 mg/dL Normal 8.5-10.2 [facility] Comment on above: Order Comment: Speci men Type: BLOOD SPECIMEN Ordering Facility: [facility] Address: [address] [place] [address] Performed By: #### 2 4322-12, 1987-09 #### [facility] CLIA [id number] [address] [place] [address] [place] Chloride [Moles/Vol] 106 mmol/L Normal 98-107 [facility] Comment on above: Order Comment: Speci men Type: BLOOD SPECIMEN Ordering Facility: [facility] Address: [address] [place] [address] Performed By: #### 2 4323-8, 1987-09 #### [facility] CLIA [id number] [address] [place] [address] [place] CO2 [Moles/Vol] 26 mmol/L Normal 22-30 [facility] Comment on above: Order Comment: Speci men Type: BLOOD SPECIMEN Ordering Facility: [facility] Address: [address] [place] [address] Performed By: #### 2 4323-8, 1987-09 #### [facility] CLIA [id number] [address] [place] [address] [place] Creatinine [Mass/Vol] 0.68 mg/dL Normal 0.58-0.96 [facility] Comment on above: Order Comment: Speci men Type: BLOOD SPECIMEN Ordering Facility: [facility] Address: [address] [place] [address] Performed By: #### 2 43238, 1987-09 #### [facility] CLIA [id number] [address] [place] [address] [place] Creatinine and Glomerular filtration rate.predicted panel (S/P/Bld) 100 mL/min/1.73m??? Normal >=60 [facility] Comment on above: Order Comment: Speci men Type: BLOOD SPECIMEN Ordering Facility: [facility] Address: [address] [place] [address] Result Comment: Rosalinda mated Glomerular Filtration Rate (eGFR) is calculated using the 2020 CKD-EPI creatinine equation. This equation utilizes serum creatinine, sex, and age as parameters. The creatinine assay has traceable calibration to isotope dilution-mass spectrometry. Refer to KDIGO guidelines for clinical interpretation. In patients with unstable renal function, e.g. those with acute kidney injury, the eGFR may not accurately reflect actual GFR. Performed By: #### 2 4328, 1987-09 #### [facility] CLIA [id number] [address] [place] [address] [place] Glucose [Mass/Vol] 124 mg/dL High 74-99 [facility] Comment on above: Order Comment: Roseanne estrada Type: BLOOD SPECIMEN Ordering Facility: [facility] Address: [address] [place] [address] Result Comment: The [place] Diabetes Association (ADA) provides guidance for cutoff values for fasting glucose and random glucose. The ADA defines fasting as no caloric intake for at least 8 hours. Fasting plasma glucose results between 100 to 125 mg/dL indicate increased risk for diabetes (prediabetes). Fasting plasma glucose results greater than or equal to 126 mg/dL meet the criteria for diagnosis of diabetes. In the absence of unequivocal hyperglycemia, results should be confirmed by repeat testing. In a patient with classic symptoms of hyperglycemia or hyperglycemic crisis, random plasma glucose results greater than or equal to 200 mg/dL meet the criteria for diagnosis of diabetes. Reference: Standards of Medical Care in Diabetes 2016, [place] [employer]. Diabetes Care. 2016.39(Suppl 1). Performed By: #### 2 4328, 1987-09 #### [facility] CLIA [id number] [address] [place] [address] [place] Potassium [Moles/Vol] 4.1 mmol/L Normal 3.7-5.1 [facility] Comment on above: Order Comment: Roseanne estrada Type: BLOOD SPECIMEN Ordering Facility: [facility] Address: [address] [place] [address] Performed By: #### 2 43238, 1987-09 #### [facility] CLIA [id number] [address] [place] [address] [place] Protein [Mass/Vol] 6.3 g/dL Normal 6.3-8.0 [facility] Comment on above: Order Comment: Roseanne estrada Type: BLOOD SPECIMEN Ordering Facility: [facility] Address: [address] [place] [address] Performed By: #### 2 4323-8, 1987-09 #### [facility] CLIA [id number] [address] [place] [address] [place] Sodium [Moles/Vol] 143 mmol/L Normal 136-144 [facility] Comment on above: Order Comment: Speci men Type: BLOOD SPECIMEN Ordering Facility: [facility] Address: [address] [place] [address] Performed By: #### 2 4323-8, 1987-09 #### [facility] CLIA [id number] [address] [place] [address] [place] Urea nitrogen [Mass/Vol] 10 mg/dL Normal 7-21 [facility] Comment on above: Order Comment: Speci men Type: BLOOD SPECIMEN Ordering Facility: [facility] Address: [address] [place] [address] Performed By: #### 2 4323-8, 1987-09 #### [facility] CLIA [id number] [address] [place] [address] [place] ESR Westergren method (Bld) [Velocity]on 06-17-2024 ESR (Bld) [Velocity] 12 mm/h [facility] Interpretation and review of laboratory results Normal [facility] ESR (Bld) [Velocity] 12 mm/h Normal 0-20 [facility] Comment on above: Order Comment: Speci men Type: BLOOD SPECIMEN Ordering Facility: [facility] Address: [address] [place] [address] Performed By: #### 5 7021-8, 4537-7 #### [facility] CLIA [id number] [address] [place] [address] [place] HBV core Ab Ser Qlon 025 HBV core Ab Ql (S) Negative Normal Negative [facility] Comment on above: Order Comment: Speci men Type: BLOOD SPECIMEN Ordering Facility: [facility] Address: [address] [place] [address] Result Comment: No e vidence of current or past infection with Hepatitis B virus. Should recent infection be suspected, repeat testing may be considered 3-4 weeks after this draw. Performed By: #### A NAIFR #### [facility] CLIA [id number] [address] [place] [address] [place] HBV surface Ab Ql (S)on 05-21 HBV surface Ab Qn (S) 69.57 mIU/mL Normal [facility] Comment on above: Order Comment: Speci men Type: BLOOD SPECIMEN Ordering Facility: [facility] Address: [address] [place] [address] Result Comment: <8 m IU/mL: No serological evidence of immunity to Hepatitis B Virus. >/= 8 to <12 mIU/mL: No serological evidence of immunity to Hepatitis B Virus. >/= 12 mIU/mL: Consistent with serological evidence of immunity to Hepatitis B Virus. Performed By: #### A NAIFR #### [facility] CLIA [id number] [address] [place] [address] [place] HBV surface Ab Ser Qlon 05-21 HBV surface Ab Ql (S) Positive Normal [facility] Comment on above: Order Comment: Speci men Type: BLOOD SPECIMEN Ordering Facility: [facility] Address: [address] [place] [address] Result Comment: Cons istent with serological evidence of immunity to Hepatitis B Virus. Performed By: #### A NAIFR #### [facility] CLIA [id number] [address] [place] [address] [place] HBV surface Ag Ser Qlon 05-21 HBV surface Ag Ql (S) Negative Normal Negative [facility] Comment on above: Order Comment: Speci men Type: BLOOD SPECIMEN Ordering Facility: [facility] Address: [address] [facility], [place] [address] Performed By: #### 5 8410-2 #### [facility] CLIA [id number] [address] [place] [address] [place] HCV Ab Ser Qlon 06-17-2024 HCV Ab Ql (S) Negative Normal Negative [facility] Comment on above: Order Comment: Speci men Type: BLOOD SPECIMEN Ordering Facility: [facility] Address: [address] [place] [address] Result Comment: The result suggests no evidence of active infection with Hepatitis C virus. Should recent infection be suspected, repeat testing may be considered 4-6 weeks after this draw. Performed By: #### A NAIFR #### [facility] CLIA [id number] [address] [place] [address] [place] No Panel Informationon 06-17 [facility] IMPRESSION: Mild multilevel lumbar spondylosis as described. Mild mechanical degenerative changes of the SI joints. No radiographic evidence of sacroiliitis. Administrative Support Specialist: SHAMA Transcribe Date/Time: Jun 17 2024 11:54A Dictated by : CHRISSY AMANDA MD This examination was interpreted and the report reviewed and electronically signed by: CHRISSY AMANDA MD on Jun 17 2024 12:04PM [facility] DIVISION OF RADIOLOGY [facility] Radiology Study observation (narrative) [facility] VITAMIN D 25 HYDROXYon 06-17 25-hydroxyvitamin D3 [Mass/Vol] 15.2 ng/mL Low 31.0 - 80.0 ng/mL [facility] Comment on above: Classification of 25 [place] Vitamin D status: Deficiency/Insufficiency: < or = 30 ng/ml. Sufficiency/Optimal Levels: 31-80 ng/mL Toxicity: > 100 ng/mL. Test performed by chemiluminescent immunoassay. XR HAND 3V PA/LAT/OBL BILon 06-17-2024 XR HAND 3V PA/LAT/OBL WINDY * * *Final Report* * * DATE OF EXAM: Jun 17 2024 11:16AM AOX [id number] - XR HAND 3V PA/LAT/OBL WINDY / PROCEDURE REASON: multiple diagnoses * * * * Physician Interpretation * * * * EXAMINATION / TECHNIQUE: XR HAND 3V PA/LAT/OBL WINDY HISTORY: pain Inflammatory arthritis Psoriasis COMPARISON: None RESULT: No acute fracture or dislocation. No focal osseous erosion, periostitis, or chondrocalcinosis. Mild osteoarthritis at both first MCP joints and scattered bilateral interphalangeal joints. Remaining joint spaces are relatively preserved. IMPRESSION: No acute osseous abnormality or radiographic evidence of inflammatory arthritis. Mild osteoarthritis bilaterally as described. Administrative Support Specialist: SHAMA Transcribe Date/Time: Jun 17 2024 1:06P Dictated by : CHRISSY AMANDA MD This examination was interpreted and the report reviewed and electronically signed by: CHRISSY AMANDA MD on Jun 17 2024 1:12PM EST [id number] Normal [facility] XR Hand - bilateral PA and L ateral and Obliqueon 06-17-2024 IMPRESSION: No acute osseous abnormality or radiographic evidence of inflammatory arthritis. Mild osteoarthritis bilaterally as described. Administrative Support Specialist: SHAMA Transcribe Date/Time: Jun 17 2024 1:06P Dictated by : CHRISSY AMANDA MD This examination was interpreted and the report reviewed and electronically signed by: CHRISSY AMANDA MD on Jun 17 2024 1:12PM EST DIVISION OF RADIOLOGY * * *Final Report* * * DATE OF EXAM: Jun 17 2024 11:16AM AOX 5556 - XR HAND 3V PA/LAT/OBL WINDY / PROCEDURE REASON: multiple diagnoses * * * * Physician Interpretation * * * * EXAMINATION / TECHNIQUE: XR HAND 3V PA/LAT/OBL WINDY HISTORY: pain Inflammatory arthritis Psoriasis COMPARISON: None RESULT: No acute fracture or dislocation. No focal osseous erosion, periostitis, or chondrocalcinosis. Mild osteoarthritis at both first MCP joints and scattered bilateral interphalangeal joints. Remaining joint spaces are relatively preserved. DIVISION OF RADIOLOGY Provider, [facility] - 06/17/2024 * * *Final Report* * * DATE OF EXAM: Jun 17 2024 11:16AM AOX 5556 - XR HAND 3V PA/LAT/OBL WINDY / PROCEDURE REASON: multiple diagnoses * * * * Physician Interpretation * * * * EXAMINATION / TECHNIQUE: XR HAND 3V PA/LAT/OBL WINDY HISTORY: pain Inflammatory arthritis Psoriasis COMPARISON: None RESULT: No acute fracture or dislocation. No focal osseous erosion, periostitis, or chondrocalcinosis. Mild osteoarthritis at both first MCP joints and scattered bilateral interphalangeal joints. Remaining joint spaces are relatively preserved. IMPRESSION IMPRESSION: No acute osseous abnormality or radiographic evidence of inflammatory arthritis. Mild osteoarthritis bilaterally as described. Administrative Support Specialist: SHAMA Transcribe Date/Time: Jun 17 2024 1:06P Dictated by : CHRISSY AMANDA MD This examination was interpreted and the report reviewed and electronically signed by: CHRISSY AMANDA MD on Jun 17 2024 1:12PM EST [facility] XR Hand - bilateral PA and L ateral and ObliqueOrdered By: [facility] Provider on 06-17-2024 [facility] XR KNEE 4V AP/PA/LAT/MERCH B ILon 06-17-2024 XR KNEE 4V AP/PA/LAT/MERCH WINDY * * *Final Report* * * DATE OF EXAM: Jun 17 2024 11:16AM AOX [id number] - XR KNEE 4V AP/PA/LAT/MERCH WINDY / PROCEDURE REASON: multiple diagnoses * * * * Physician Interpretation * * * * EXAMINATION / TECHNIQUE: XR KNEE 4V AP/PA/LAT/MERCH WINDY HISTORY: pain Inflammatory arthritis Psoriasis COMPARISON: None RESULT: Mild bilateral medial compartment predominant osteoarthritis. Lateral and patellofemoral joint spaces are relatively preserved in both knees. No fracture or significant joint effusion in either knee. No osseous erosions. Right anterior prepatellar soft tissue swelling. IMPRESSION: Mild bilateral medial compartment predominant osteoarthritis. Moderate right prepatellar soft tissue swelling/bursitis. Administrative Support Specialist: [facility] Transcribe Date/Time: Jun 17 2024 1:18P Dictated by : CHRISSY AMANDA MD This examination was interpreted and the report reviewed and electronically signed by: CHRISSY AMANDA MD on Jun 17 2024 1:20PM EST [id number] Normal [facility] XR Knee - bilateral 4 Viewso n 06-17-2024 IMPRESSION: Mild bilateral medial compartment predominant osteoarthritis. Moderate right prepatellar soft tissue swelling/bursitis. Administrative Support Specialist: SHAMA Transcribe Date/Time: Jun 17 2024 1:18P Dictated by : CHRISSY AMANDA MD This examination was interpreted and the report reviewed and electronically signed by: CHRISSY AMANDA MD on Jun 17 2024 1:20PM EST DIVISION OF RADIOLOGY * * *Final Report* * * DATE OF EXAM: Jun 17 2024 11:16AM AOX 5618 - XR KNEE 4V AP/PA/LAT/MERCH WINDY / PROCEDURE REASON: multiple diagnoses * * * * Physician Interpretation * * * * EXAMINATION / TECHNIQUE: XR KNEE 4V AP/PA/LAT/MERCH WINDY HISTORY: pain Inflammatory arthritis Psoriasis COMPARISON: None RESULT: Mild bilateral medial compartment predominant osteoarthritis. Lateral and patellofemoral joint spaces are relatively preserved in both knees. No fracture or significant joint effusion in either knee. No osseous erosions. Right anterior prepatellar soft tissue swelling. DIVISION OF RADIOLOGY Provider, [facility] - 06/17/2024 * * *Final Report* * * DATE OF EXAM: Jun 17 2024 11:16AM AOX 5618 - XR KNEE 4V AP/PA/LAT/MERCH WINDY / PROCEDURE REASON: multiple diagnoses * * * * Physician Interpretation * * * * EXAMINATION / TECHNIQUE: XR KNEE 4V AP/PA/LAT/MERCH WINDY HISTORY: pain Inflammatory arthritis Psoriasis COMPARISON: None RESULT: Mild bilateral medial compartment predominant osteoarthritis. Lateral and patellofemoral joint spaces are relatively preserved in both knees. No fracture or significant joint effusion in either knee. No osseous erosions. Right anterior prepatellar soft tissue swelling. IMPRESSION IMPRESSION: Mild bilateral medial compartment predominant osteoarthritis. Moderate right prepatellar soft tissue swelling/bursitis. Administrative Support Specialist: [facility] Transcribe Date/Time: Jun 17 2024 1:18P Dictated by : CHRISSY AMANDA MD This examination was interpreted and the report reviewed and electronically signed by: CHRISSY AMANDA MD on Jun 17 2024 1:20PM [facility] XR LUMBAR 3V AP/LAT/L5-S1on 06-17-2024 XR LUMBAR 3V AP/LAT/L5-S1 * * *Final Report* * * DATE OF EXAM: Jun 17 2024 11:16AM AOX 5228 - XR LUMBAR 3V AP/LAT/L5-S1 / PROCEDURE REASON: multiple diagnoses * * * * Physician Interpretation * * * * EXAMINATION / TECHNIQUE: XR SI JTS 2V AP PELV/GAGE, XR LUMBAR 3V AP/LAT/L5-S1 HISTORY: pain Inflammatory arthritis Psoriasis Chronic bilateral low back pain without sciatica Chronic bilateral low back pain without sciatica COMPARISON: 07/24/2023 CT RESULT: Counting reference: Lumbosacral junction. For the purposes of this report, L4-5 is considered the level of the iliac crest and there are 5 lumbar-type vertebrae. Anatomic Variants: None. Preserved lordosis. Chronic mild L1 compression deformity is unchanged. Remaining vertebral body heights and sagittal alignment are maintained. Mild multilevel degenerative disc disease. Degenerative lower lumbar facet arthropathy. Crowding of the lumbar spinous processes with reactive subchondral changes at the pseudoarthroses. SI joints are maintained with small marginal osteophytes and minimal subarticular sclerosis. No osseous erosions or ankylosis. Mild degenerative changes of both hips and pubic symphysis. No fracture. IMPRESSION: Mild multilevel lumbar spondylosis as described. Mild mechanical degenerative changes of the SI joints. No radiographic evidence of sacroiliitis. Administrative Support Specialist: SHAMA Transcribe Date/Time: Jun 17 2024 11:54A Dictated by : CHRISSY AMANDA MD This examination was interpreted and the report reviewed and electronically signed by: CHRISSY AMANDA MD on Jun 17 2024 12:04PM EST [id number] Normal [facility] XR Lumbar spine 3 Viewson * * *Final Report* * * DATE OF EXAM: Jun 17 2024 11:16AM AOX 5228 - XR LUMBAR 3V AP/LAT/L5-S1 / PROCEDURE REASON: multiple diagnoses * * * * Physician Interpretation * * * * EXAMINATION / TECHNIQUE: XR SI JTS 2V AP PELV/GAGE, XR LUMBAR 3V AP/LAT/L5-S1 HISTORY: pain Inflammatory arthritis Psoriasis Chronic bilateral low back pain without sciatica Chronic bilateral low back pain without sciatica COMPARISON: 07/24/2023 CT RESULT: Counting reference: Lumbosacral junction. For the purposes of this report, L4-5 is considered the level of the iliac crest and there are 5 lumbar-type vertebrae. Anatomic Variants: None. Preserved lordosis. Chronic mild L1 compression deformity is unchanged. Remaining vertebral body heights and sagittal alignment are maintained. Mild multilevel degenerative disc disease. Degenerative lower lumbar facet arthropathy. Crowding of the lumbar spinous processes with reactive subchondral changes at the pseudoarthroses. SI joints are maintained with small marginal osteophytes and minimal subarticular sclerosis. No osseous erosions or ankylosis. Mild degenerative changes of both hips and pubic symphysis. No fracture. DIVISION OF RADIOLOGY Provider, Epif[facility] Diaz - 06/17/2024 * * *Final Report* * * DATE OF EXAM: Jun 17 2024 11:16AM AOX 5228 - XR LUMBAR 3V AP/LAT/L5-S1 / PROCEDURE REASON: multiple diagnoses * * * * Physician Interpretation * * * * EXAMINATION / TECHNIQUE: XR SI JTS 2V AP PELV/GAGE, XR LUMBAR 3V AP/LAT/L5-S1 HISTORY: pain Inflammatory arthritis Psoriasis Chronic bilateral low back pain without sciatica Chronic bilateral low back pain without sciatica COMPARISON: 07/24/2023 CT RESULT: Counting reference: Lumbosacral junction. For the purposes of this report, L4-5 is considered the level of the iliac crest and there are 5 lumbar-type vertebrae. Anatomic Variants: None. Preserved lordosis. Chronic mild L1 compression deformity is unchanged. Remaining vertebral body heights and sagittal alignment are maintained. Mild multilevel degenerative disc disease. Degenerative lower lumbar facet arthropathy. Crowding of the lumbar spinous processes with reactive subchondral changes at the pseudoarthroses. SI joints are maintained with small marginal osteophytes and minimal subarticular sclerosis. No osseous erosions or ankylosis. Mild degenerative changes of both hips and pubic symphysis. No fracture. IMPRESSION IMPRESSION: Mild multilevel lumbar spondylosis as described. Mild mechanical degenerative changes of the SI joints. No radiographic evidence of sacroiliitis. Administrative Support Specialist: [facility] Transcribe Date/Time: Jun 17 2024 11:54A Dictated by : CHRISSY AMANDA MD This examination was interpreted and the report reviewed and electronically signed by: CHRISSY AMANDA MD on Jun 17 2024 12:04PM [facility] XR SI JTS 2V AP PELV/FERGUSO Non 06-17-2024 XR SI JTS 2V AP PELV/GAGE * * *Final Report* * * DATE OF EXAM: Jun 17 2024 11:16AM AOX 5245 - XR SI JTS 2V AP PELV/GAGE / PROCEDURE REASON: multiple diagnoses * * * * Physician Interpretation * * * * EXAMINATION / TECHNIQUE: XR SI JTS 2V AP PELV/GAGE, XR LUMBAR 3V AP/LAT/L5-S1 HISTORY: pain Inflammatory arthritis Psoriasis Chronic bilateral low back pain without sciatica Chronic bilateral low back pain without sciatica COMPARISON: 07/24/2023 CT RESULT: Counting reference: Lumbosacral junction. For the purposes of this report, L4-5 is considered the level of the iliac crest and there are 5 lumbar-type vertebrae. Anatomic Variants: None. Preserved lordosis. Chronic mild L1 compression deformity is unchanged. Remaining vertebral body heights and sagittal alignment are maintained. Mild multilevel degenerative disc disease. Degenerative lower lumbar facet arthropathy. Crowding of the lumbar spinous processes with reactive subchondral changes at the pseudoarthroses. SI joints are maintained with small marginal osteophytes and minimal subarticular sclerosis. No osseous erosions or ankylosis. Mild degenerative changes of both hips and pubic symphysis. No fracture. IMPRESSION: Mild multilevel lumbar spondylosis as described. Mild mechanical degenerative changes of the SI joints. No radiographic evidence of sacroiliitis. Administrative Support Specialist: [facility] Transcribe Date/Time: Jun 17 2024 11:54A Dictated by : CHRISSY AMANDA MD This examination was interpreted and the report reviewed and electronically signed by: CHRISSY AMANDA MD on Jun 17 2024 12:04PM EST [id number] Normal [facility] XR Sacroiliac Joint Viewson 06-17-2024 * * *Final Report* * * DATE OF EXAM: Jun 17 2024 11:16AM AOX 5245 - XR SI JTS 2V AP PELV/GAGE / PROCEDURE REASON: multiple diagnoses * * * * Physician Interpretation * * * * EXAMINATION / TECHNIQUE: XR SI JTS 2V AP PELV/GAGE, XR LUMBAR 3V AP/LAT/L5-S1 HISTORY: pain Inflammatory arthritis Psoriasis Chronic bilateral low back pain without sciatica Chronic bilateral low back pain without sciatica COMPARISON: 07/24/2023 CT RESULT: Counting reference: Lumbosacral junction. For the purposes of this report, L4-5 is considered the level of the iliac crest and there are 5 lumbar-type vertebrae. Anatomic Variants: None. Preserved lordosis. Chronic mild L1 compression deformity is unchanged. Remaining vertebral body heights and sagittal alignment are maintained. Mild multilevel degenerative disc disease. Degenerative lower lumbar facet arthropathy. Crowding of the lumbar spinous processes with reactive subchondral changes at the pseudoarthroses. SI joints are maintained with small marginal osteophytes and minimal subarticular sclerosis. No osseous erosions or ankylosis. Mild degenerative changes of both hips and pubic symphysis. No fracture. DIVISION OF RADIOLOGY [facility] * * *Final Report* * * DATE OF EXAM: Jun 17 2024 11:16AM AOX 5245 - XR SI JTS 2V AP PELV/GAGE / PROCEDURE REASON: multiple diagnoses * * * * Physician Interpretation * * * * EXAMINATION / TECHNIQUE: XR SI JTS 2V AP PELV/GAGE, XR LUMBAR 3V AP/LAT/L5-S1 HISTORY: pain Inflammatory arthritis Psoriasis Chronic bilateral low back pain without sciatica Chronic bilateral low back pain without sciatica COMPARISON: 07/24/2023 CT RESULT: Counting reference: Lumbosacral junction. For the purposes of this report, L4-5 is considered the level of the iliac crest and there are 5 lumbar-type vertebrae. Anatomic Variants: None. Preserved lordosis. Chronic mild L1 compression deformity is unchanged. Remaining vertebral body heights and sagittal alignment are maintained. Mild multilevel degenerative disc disease. Degenerative lower lumbar facet arthropathy. Crowding of the lumbar spinous processes with reactive subchondral changes at the pseudoarthroses. SI joints are maintained with small marginal osteophytes and minimal subarticular sclerosis. No osseous erosions or ankylosis. Mild degenerative changes of both hips and pubic symphysis. No fracture. IMPRESSION IMPRESSION: Mild multilevel lumbar spondylosis as described. Mild mechanical degenerative changes of the SI joints. No radiographic evidence of sacroiliitis. Administrative Support Specialist: [facility] Transcribe Date/Time: Jun 17 2024 11:54A Dictated by : CHRISSY AMANDA MD This examination was interpreted and the report reviewed and electronically signed by: CHRISSY AMANDA MD on Jun 17 2024 12:04PM EST [facility] Gastroenterology Visit Repor ton 06-14-2024 Gastroenterology Visit Report [facility]enter[facility] [address] [place] [address] OFFICE VISIT Date of Service: 06/14/24 MR#: [id number] Acct: [id number] Name: LEAH JERRY Rep #: [id number] : 1965 Provider: JHONY mills Age/Sex: 58/F Location[place] [facility] [place] [facility] [place] Status: Signed Intake Vital Signs 03/01/24 13:13 04/22/24 05:59 06/14/24 14:49 Height 5 ft 1 in 5 ft 2 in 5 ft 2 in Weight: 136 lb 2 oz BMI 24.9 BP 136/72 H Respiration 16 Pulse 77 Pulse Oximetry (%) 97 Oxygen Delivery Method room air Intake Visit Reasons: 3 M FU Chief Complaint: Abdominal cramping throughout and stabbing pain LLQ Animal Feeder Required: No Is patient in pain?: Yes Allergies Tetracyclines Allergy (Intermediate, Verified 06/14/24 14:43) Rash aminophylline Allergy (Verified 06/14/24 14:43) Swelling amphetamine (From Adderall) Allergy (Verified 06/14/24 14:43) Other dextroamphetamine (From Adderall) Allergy (Verified 06/14/24 14:43) Other dulaglutide (From Trulicity) Allergy (Verified 06/14/24 14:43) Vomiting Iodinated Contrast Media (CT) Allergy (Verified 06/14/24 14:43) Swelling iodine Allergy (Verified 06/14/24 14:43) Swelling povidone-iodine (From Betadine) Allergy (Verified 06/14/24 14:43) Swelling shellfish derived Allergy (Verified 06/14/24 14:43) Swelling Sulfa (Sulfonamide Antibiotics) Allergy (Verified 06/14/24 14:43) Swelling buspirone (From BuSpar) Adverse Reaction (Intermediate, Verified 06/14/24 14:43) Other allantoin (From Blistex) Adverse Reaction (Verified 06/14/24 14:43) Swelling aloe vera (From Blistex) Adverse Reaction (Verified 06/14/24 14:43) Swelling camphor (From Blistex) Adverse Reaction (Verified 06/14/24 14:43) Swelling chamomile flower (From Blistex) Adverse Reaction (Verified 06/14/24 14:43) Swelling dimethicone (From Blistex) Adverse Reaction (Verified 06/14/24 14:43) Swelling herbal complex no.57 (From Blistex) Adverse Reaction (Verified 06/14/24 14:43) Swelling homosalate (From Blistex) Adverse Reaction (Verified 06/14/24 14:43) Swelling menthol (From Blistex) Adverse Reaction (Verified 06/14/24 14:43) Swelling meradimate (From Blistex) Adverse Reaction (Verified 06/14/24 14:43) Swelling octinoxate (From Blistex) Adverse Reaction (Verified 06/14/24 14:43) Swelling octyl salicylate (From Blistex) Adverse Reaction (Verified 06/14/24 14:43) Swelling oxybenzone (From Blistex) Adverse Reaction (Verified 06/14/24 14:43) Swelling padimate O (From Blistex) Adverse Reaction (Verified 06/14/24 14:43) Swelling petrolatum,hydrophilic (From Blistex) Adverse Reaction (Verified 06/14/24 14:43) Swelling phenol (From Blistex) Adverse Reaction (Verified 06/14/24 14:43) Swelling tetracycline Adverse Reaction (Verified 06/14/24 14:43) Rash Medications ???Medication ???Instructions ???Recorded ???Confirmed ???Type trazodone 150 mg tablet 150 mg PO QHS anxiety 07/15/21 06/14/24 History albuterol sulfate 90 mcg/actuation 2 puff inhalation Q6H PRN 07/16/21 06/14/24 Rx aerosol inhaler shortness of breath or wheezing #8.5 grams ibuprofen 500 mg PO Q6H PRN PRN Pain 03/06/22 06/14/24 History hydroxyzine HCl 25 mg tablet 25 mg PO TID anxiety 11/04/22 06/14/24 History cetirizine 10 mg tablet 10 mg PO BID 03/06/23 06/14/24 History fluticasone fur. 200 mcg-umeclid 1 inh inhalation Q24H 04/08/23 06/14/24 History 62.5 mcg-vilant 25 mcg inhalat.powder (Trelegy Ellipta) lanolin alcohols-mineral 1 applic topical DAILY 04/08/23 06/14/24 History oil-w.petrolatum-ceresin topical cream (Minerin Creme topical) sertraline 50 mg tablet 50 mg PO DAILY 04/08/23 06/14/24 History hydroxyzine HCl 25 mg tablet 50 mg PO QHS 06/23/23 06/14/24 History dapagliflozin propanediol 10 mg 10 mg PO DAILY 10/01/23 06/14/24 History tablet (Farxiga) omeprazole 40 mg capsule,delayed 40 mg PO BID 10/01/23 06/14/24 History release triamcinolone acetonide 0.1 % 1 applic topical BID 10/01/23 06/14/24 History topical cream atorvastatin 20 mg tablet 20 mg PO QHS 10/28/23 06/14/24 History metformin 500 mg tablet 500 mg PO BID 03/12/24 06/14/24 History propranolol 20 mg tablet 20 mg PO BID 03/12/24 06/14/24 History metoclopramide HCl 10 mg tablet 10 mg PO Q6H PRN nausea and 05/04/24 06/14/24 Rx vomiting #20 tabs benzonatate 100 mg capsule 100 mg PO BID PRN 06/14/24 06/14/24 History dicyclomine 20 mg tablet 20 mg PO TID PRN abdominal pain 06/14/24 History gabapentin 100 mg capsule 300 mg PO TID 06/14/24 06/14/24 History ondansetron 4 mg disintegrating 4 mg PO Q8H PRN 06/14/24 History tablet Have you fallen in the past year?: Yes Nurse's Note: Hasn't had diarrhea in a while and not much constipation either. Nausea regularly and has only vomited twice in 3 weeks. [facility] Medical Histor (more content not included)... Normal [facility] HIP, UNI W/ Pelvis 2-3 Views on 05-26-2024 HIP, UNI W/ Pelvis 2-3 Views [facility] Imaging Services [address] [address] HIP, UNI W/ Pelvis 2-3 Views MR#: [id number] Acct: [id number] Name: LEAH JERRY Rep #: [id number] : 1965 F 58 From: Hugo Arndt MD PCP: KINGS Ruby, [employer]-C Status: REG CLI Study: HIP, UNI W/ Pelvis 2-3 Views Date of Exam: 01/10 Exam# [id number] Ordering Dr: Briseyda Servin [facility] [employer] [id number] STUDY: X-RAY - PELVIS AND LEFT HIP REASON FOR EXAM: Female, 58 years old. PAIN TECHNIQUE: 3 views of the pelvis and left hip. COMPARISON: None. FINDINGS: There is a non-specific bowel gas pattern. There are multiple calcified phleboliths in the pelvis. Normal bilateral iliac wings, sacroiliac joints and visualized sacrum. Normal bilateral superior and inferior pubic rami. Normal pubic symphysis. Normal bilateral ischial tuberosities. Normal visualized femoral head. Normal acetabulum. Normal hip joint. RAD/HIP, UNI W/ Pelvis 2-3 Views IMPRESSION: Unremarkable x-ray examination of the pelvis and left hip. Electronically Signed: Hugo Arndt MD at 14:29 EST Reading Location ID and State: [address] [place] [address] , Service support , CC: JHONY Servin; [facility] [employer] [place] Administrative Support Specialist: Signed Normal [facility] Knee 3 Viewson 05-26-2024 Knee 3 Views [facility] Imaging Services [address] [place], [place] [id number] Knee 3 Views MR#: [id number] Acct: [id number] Name: LEAH JERRY Rep #: [id number] : 1965 F 58 From: Hugo Arndt MD PCP: Taylor Fields [facility], [employer] Status: REG CLI Study: Knee 3 Views Date of Exam: 05/26/24 Exam# [id number] Ordering Dr: Briseyda Servin [facility] [employer] [id number] STUDY: X-RAY - RIGHT KNEE REASON FOR EXAM: Female, 58 years old. PAIN TECHNIQUE: 3 views of the right knee. COMPARISON: None. FINDINGS: Normal visualized distal femur. Normal visualized proximal tibia and fibula. Normal proximal tibiofibular articulation. There is no demonstrated fracture. There is mild degenerative arthrosis of the medial femorotibial compartment. Normal lateral femorotibial compartment. Normal patellofemoral articulation. There is a small joint effusion. There is prepatellar soft tissue swelling. RAD/Knee 3 Views IMPRESSION: Of mild degenerative arthrosis of the medial femorotibial compartment. Small joint effusion. Prepatellar soft tissue swelling. Electronically Signed: Hugo Arndt MD at 13:11 EST Reading Location ID and State: [address] [place] [address] , Service support , CC: JHONY Servin; [facility] [employer] [place] Administrative Support Specialist: Signed Normal [facility] Knee 3 Views [facility] Imaging Services [address] [place] [address] Knee 3 Views MR#: [id number] Acct: [id number] Name: LEAH JERRY Rep #: [id number] : 1965 F 58 From: Hugo Arndt MD PCP: [place], [facility], [employer] Status: REG CLI Study: Knee 3 Views Date of Exam: 05/26/24 Exam# [id number] Ordering Dr: Briseyda Servin [facility] [employer] [id number] STUDY: X-RAY - LEFT KNEE REASON FOR EXAM: Female, 58 years old. PAIN TECHNIQUE: 3 views of the left knee. COMPARISON: None. FINDINGS: Normal visualized distal femur. Normal visualized proximal tibia and fibula. Normal proximal tibiofibular articulation. There is no demonstrated fracture. There is minimal degenerative arthrosis of the medial femorotibial compartment. There is minimal degenerative arthrosis of the lateral femorotibial compartment. Normal patellofemoral articulation. The soft tissue structures are unremarkable. RAD/Knee 3 Views IMPRESSION: Minimal degenerative arthrosis of the medial and lateral femorotibial compartments. No demonstrated fracture. Electronically Signed: Hugo Arndt MD at 13:12 EST Reading Location ID and State: [facility] / MD , Service support , CC: JHONY Servin; [facility] JHONY Fields Administrative Support Specialist: Signed Normal [facility] Wrist 2 Viewson 05-26-2024 Wrist 2 Views [facility] Imaging Services [address] [place] [address] Wrist 2 Views MR#: [id number] Acct: [id number] Name: LEAH JERRY Rep #: [id number] : 1965 F 58 From: Hugo Arndt MD PCP: KINGS Ruby, JHONY Status: REG CLI Study: Wrist 2 Views Date of Exam: 05/26/24 Exam# [id number] Ordering Dr: Briseyda Servin [facility] [employer] [id number] STUDY: X-RAY - RIGHT WRIST REASON FOR EXAM: Female, 58 years old. PAIN TECHNIQUE: 2 views of the right wrist were obtained. COMPARISON: None. FINDINGS: Normal visualized distal radius and ulna. Normal radiocarpal articulation. Normal distal radioulnar articulation. Normal carpal bones. Normal carpal articulations. Normal carpometacarpal articulation of the thumb. Normal second through fifth carpometacarpal articulations. Normal visualized metacarpal bones. The soft tissue structures are unremarkable. There is no demonstrated acute fracture. RAD/Wrist 2 Views IMPRESSION: Normal x-ray examination of the wrist. Electronically Signed: Hugo Arndt MD at 13:25 EST , CC: [employer]-Yajaira Servin; [facility] [employer] STRUCTURAL FITTEROpal Fields Administrative Support Specialist: Signed Normal [facility] Dexa Bone Density Studyon Dexa Bone Density Study [facility] Imaging Services [address] [place] [address] Dexa Bone Density Study MR#: [id number] Acct: [id number] Name: LEAH JERRY Rep #: [id number] : 1965 F 58 From: Raj Omalley MD PCP: [place] Yajaira, [employer]-C Status: REG CLI Study: Dexa Bone Density Study Date of Exam: 05/11/24 Exam# [id number] Ordering Dr: Taylor Fields [facility] [employer] [id number] STUDY: DUAL ENERGY X-RAY ABSORPTIOMETRY / DXA REASON FOR EXAM: Female, 58 years old. Postmenopausal screening TECHNIQUE: Bone Mineral Density (BMD) measurements of lumbar spine and bilateral hips were obtained. COMPARISON: None. FINDINGS: Lumbar Spine (L1-L4): g/cm2 (0.923) / T-score (-1.1) / Z-score (0.3) Left Femur Total: g/cm2 (0.739) / T-score (-1.7) / Z-score (-0.7) Left Femoral Neck: g/cm2 (0.614) / T-score (-2.1) / Z-score (-0.8) Right Femur Total: g/cm2 (0.852) / T-score (-0.7) / Z-score (0.2) Right Femoral Neck: g/cm2 (0.663) / T-score (-1.7) / Z-score (-0.4) BD/Dexa Bone Density Study IMPRESSION: The patient is considered osteopenic as outlined below according to World Len Organization (WHO) criteria with a moderate fracture risk. 10 year fracture risk: Major osteoporotic fracture 14%, hip fracture 1.5% Reference Information: The T-score is the number of standard deviations above or below the standard which is normal for young adults at their peak bone mineral density. The World Health Organization (WHO) interprets the T-scores as follows: Above -1 Normal bone density Between -1 and -2.5 Osteopenia Equal to / or below -2.5 Osteoporosis As a practical clinical guideline, osteopenia may be graded as follows: Mild -1 through -1.5 Moderate -1.6 through -2.0 Severe -2.1 through -2.4 The Z-score is the number of standard deviations above or below age-matched controls. A Z-score of less than -1.5 would be considered abnormal. References: 1. NIH Osteoporosis and Related Bone Diseases www osteo.org 2. International Society for Clinical Densitometry www iscd.org 3. National Osteoporosis Foundation www nof.org Electronically Signed: Addison Omalley MD at 18:06 EST , CC: Yajaira Fields Administrative Support Specialist: Signed Normal [facility] Bedside Glucoseon 04-22-2024 FINGERSTICK GLU 251 mg/dL High 74-106 [facility] Comment on above: Result Comment: NORBERTO GEMENT OF PATIENT CARE PER NURSING PROTOCOL Performed By: #### L 501.080 #### [facility] [address] [place], [address] EGD Reporton 04-22-2024 EGD Report [facility] Medical Records Department [address] [place] [address] EGD Report MR#: [id number] Acct: [id number] Name: LEAH JERRY Rep #: [id number] : 1965 58 From: James Smith DO PCP: KINGS Ruby, [employer] Status:REG [facility] Patient Name: Leah Jerry Procedure Date: 04/22/2024 6:34 AM Date of : 1965 Age: 58 Procedure: Upper GI endoscopy Indications: Dyspepsia, Indigestion, Heartburn, Failure to respond to medical treatment Providers: James Smith DO Referring MD: Taylor Canales, Garnett Mechanic-c Medicines: Monitored Anesthesia Care Patient Profile: This is a 58 year old female. Refer to note in patient chart for documentation of history and physical. Patient has symptoms of chronic nausea, chronic regurgitation and chronic vomiting. Complications: No immediate complications. Procedure: Pre-Anesthesia Assessment: - Prior to the procedure, a History and Physical was performed, and patient medications and allergies were reviewed. The patient is competent. The risks and benefits of the procedure and the sedation options and risks were discussed with the patient. All questions were answered and informed consent was obtained. Patient identification and proposed procedure were verified by the physician in the pre-procedure area. Mental Status Examination: alert and oriented. Airway Examination: normal oropharyngeal airway and neck mobility. Respiratory Examination: clear to auscultation. CV Examination: normal. Prophylactic Antibiotics: The patient does not require prophylactic antibiotics. Prior Anticoagulants: The patient has taken no anticoagulant or antiplatelet agents. ASA Grade Assessment: II - A patient with mild systemic disease. After reviewing the risks and benefits, the patient was deemed in satisfactory condition to undergo the procedure. The anesthesia plan was to use monitored anesthesia care (MAC). Immediately prior to administration of medications, the patient was re-assessed for adequacy to receive sedatives. The heart rate, respiratory rate, oxygen saturations, blood pressure, adequacy of pulmonary ventilation, and response to care were monitored throughout the procedure. The physical status of the patient was re-assessed after the procedure. After obtaining informed consent, the endoscope was passed under direct vision. Throughout the procedure, the patient's blood pressure, pulse, and oxygen saturations were monitored continuously. The Endoscope was introduced through the mouth, and advanced to the second part of duodenum. The upper GI endoscopy was accomplished without difficulty. The patient tolerated the procedure well. Scope In: 6:55:48 AM Scope Out: 7:00:51 AM Total Procedure Duration Time 0 hours 5 minutes 3 seconds Findings: LA Grade C (one or more mucosal breaks continuous between tops of 2 or more mucosal folds, less than 75% circumference) esophagitis with no bleeding was found 34 to 40 cm from the incisors. Biopsies were taken with a cold forceps for histology. Verification of patient identification for the specimen was done. Estimated blood loss was minimal. Diffuse prominent gastric folds were found in the gastric body. Biopsies were taken with a cold forceps for histology. Verification of patient identification for the specimen was done. Estimated blood loss was minimal. Biopsies were taken with a cold forceps for Helicobacter pylori testing. Verification of patient identification for the specimen was done. Estimated blood loss was minimal. Patchy mildly erythematous mucosa without active bleeding and with no stigmata of bleeding was found in the first portion of the duodenum. Biopsies were taken with a cold forceps for histology. Verification of patient identification for the specimen was done. Estimated blood loss was minimal. Impression: - LA Grade C reflux esophagitis with no bleeding. Biopsied. - Enlarged gastric folds. Biopsied. - Erythematous duodenopathy. Biopsied. Recommendation: - Discharge patient to home. - Resume previous diet. - Continue present medications. - Await pathology results. - check Gastrin level - TONY + serum protein electrophoresis - Gastric emptying study Procedure Code(s): --- Professional --- 38494, Esophagogastroduodenoscopy , flexible, transoral; with biopsy, single or multiple CPT copyright 2021 [employer]. All rights reserved. The codes documented in this report are preliminary and upon auto suspension and steering mechanic review may be revised to meet current compliance requirements. James Smith DO 04/22/2024 7:09:53 AM This report has been signed electronically. Number of Addenda: 0 Note Initiated On: 04/22/2024 6:34 AM 04/22/2410 Date James Smith DO Reesedebbieflaquito Arguetakaz (more content not included)... Normal [facility] Glucose measurement at [facility] deOrdered By: James Smith on 04-22-2024 Bedside Glucose (Misc Panel) 251 mg/dL High 74-106 [facility] Comment on above: MANAGEMENT OF PATIEN T CARE PER NURSING PROTOCOL H Pylori (initial)on H Pylori (initial) ------ Patient Age/Sex Location Account Attending Physician LEAH JERRY 58/F EN [id number] James Smith, DO Specimen: [id number] Received: 04/22/24 Status: KANA Arriaga Num: [id number] Spec Type: IMMUNO Subm Dr: James Smith DO PHYSICIAN INSTITUTION [address] [address] SPECIMEN INFORMATION: Tissue Source: C- Gastric antrum biopsy Clinical Info: Esophageal varices, nausea/vomiting, alternating constipation and diarrhea Specimen Number: [id number] CPT code: 76277 METHODOLOGY: Deparaffinized sections of prefer/formalin-fixed tissue or PAP/DQ stained slides are incubated with monoclonal/polyclonal antibodies/oligonucleotide probes. Localization is made via biotin free immunoperoxidase method. Appropriate controls are performed and reacted as expected. Results on target cell population are indicated in the following table: RESULTS: ANTIBODY / CLONE RESULT Block C H Pylori (polyclonal) negative These tests were developed and their performance characteristics determined by [facility]. They may not have been cleared or approved by the U.S. Food and Drug Administration. The FDA has determined that such clearance or approval is not necessary. The above immunohistochemical/dualIS H markers are ordered and reviewed by the Pathologist. INTERPRETATION: C. Gastric antrum, biopsy: Negative for Helicobacter pylori organisms. AM 04/23/2024 Signed (signature on file) Dr. Bairon Griffin DO 04/23/24 1423 Normal [facility] Comment on above: Performed By: #### L 501.080 #### [facility] [address] [place], [address] MR/POSTOP.Braulio 04-22-2024 MR/POSTOP.MICHELLE [facility] Medical Records Department [address] [place] [address] Anesthesia Postop Eval I 04/22/24 0708 MR#: [id number] Acct: [id number] Name: LEAH JERRY Rep #: [id number] : 1965 58 From: Geovanni Bland PCP: KINGS Ruby, [employer] Status:REG SDC Y Race: C Location: [place] [address] Anesthesia: Postop Eval I Current Vital Signs Temperature: 98.1 F Pulse Rate: 81 Blood Pressure: 99/68 Respiratory Rate: 16 Pulse Ox: 94 Oxygen Delivery Method: Room Air Assessment Airway patent: Yes Spontaneous unlabored respirations: Yes Mental status: Asleep nausea: No Vomiting: No Anesthesia Complication: No Fluid Hydration Crystalloid volume administer (ml): 30 Total IV fluid infused: 30 Progress Note Anesthesia document: Postop Eval 1 completed: Yes 04/22/24708 Date Geovanni Leighignflaquito Signature: Date CC: Signed Normal [facility] MR/[email or web address] 04-22-2024 /[facility] Medical Records Department [address] [place] [address] Anesthesia Postop Eval II 04/22/2416 MR#: [id number] Acct: [id number] Name: JERRYLEAH Rep #: [id number] : 1965 58 From: Jose Angel Lyon MD PCP: KINGS Ruby, [employer] Status:REG SDC Y Race: C Location: [place] [address] Anesthesia Postop Eval I Sum Postop Eval Completion status Anesthesia document: Postop Eval 1 completed: Yes Anesthesia Postop Eval I Summary Anesthesia Postop Eval I Summary: Anesthesia Postop Eval I: Assessment Summary Airway patent Yes 04/22/24 07:09 [email or web address] Spontaneous unlabored Yes 04/22/24 07:09 [email or web address] respirations Mental status Asleep 04/22/24 07:09 [email or web address] nausea No 04/22/24 07:09 [email or web address] Vomiting No 04/22/24 07:09 [email or web address] Anesthesia Postop Eval I: Fluid Summary Crystalloid volume administer 30 04/22/24 07:09 [email or web address] (ml) Colloids volume administered ( ml) Blood Product volume administered (ml) Total IV fluid infused 30 04/22/24 07:09 [email or web address] Anesthesia Postop Eval I: Summary Notes Anesthesia Complication No 04/22/24 07:09 [email or web address] Anesthesia Complication Comment: Post-operative progress note Anesthesia: Postop Eval II Evaluation Mental status: Awake Pain Level: 0 nausea: No Vomiting: No 04/22/24716 Date Jose Angel Gomez Signature: CC: Signed Normal [facility] Special Stain Group Ion 12-0 Special Stain Group I -------- Patient Age/Sex Location Account Attending Physician LEAH JERRY/F GISEL [id number] James Smith DO Specimen: [id number] Received: 04/22/24 Status: KANA Arriaga Num: [id number] Spec Type: EGD BIOPSY Subm Dr: James Smith DO HEADER OPERATION: EGD with biopsy PRE-OP DIAGNOSIS: Esophageal varices, nausea/vomiting, alternating constipation and diarrhea TISSUE SUBMITTED: A- Random esophagus biopsy, B- Duodenum biopsy, C- Gastric antrum biopsy MICROSCOPIC DIAGNOSIS A. Esophagus, random biopsy: Ulceration with associated fibrinopurulent exudate and acute esophagitis. Negative for fungal organisms. See comment. B. Duodenum, biopsy: No pathologic change. C. Gastric antrum, biopsy: Chronic gastritis. See comment. 04/23/2024 COMMENT A. GMS stain with matched control was used in the evaluation of this case. C. The results of immunohistochemistry for Helicobacter pylori will be reported separately ([id number]). MICROSCOPIC DESCRIPTION Slides are reviewed. GROSS DESCRIPTION A. Received in fixative is one container labeled with the patient's name and designated Random esophagus biopsy. The specimen consists of multiple irregular fragments of light christian soft tissue that in aggregate measure 1.0 x 0.3 x 0.1 cm. The specimen is totally submitted in one cassette. B. Received in fixative is one container labeled with the patient's name and designated Duodenum biopsy. The specimen consists of two irregular fragments of light christian soft tissue that in aggregate measure 0.6 x 0.6 x 0.1 cm. The specimen is totally submitted in one cassette. C. Received in fixative is one container labeled with the patient's name and designated Gastric antrum biopsy. The specimen consists of two irregular fragments of light christian soft tissue that in aggregate measure 0.6 x 0.5 x 0.1 cm. The specimen is totally submitted in one cassette. 04/22/2024 TC:3 CPT:30642p7,47753,13785 Patient Age/Sex Location Account Attending Physician LEAH JERRY 58/F EN [id number] James Smith DO Signed (signature on file) Dr. Bairon Griffin DO 04/23/24 1422 Normal [facility] Comment on above: Performed By: #### L 502.0500, L501.9520 #### [facility] [address] [place], [address] Absolute neutrophil countOrd ered By: Mehrdad Norris on 04-19-2024 Neutrophils (Bld) [#/Vol] 8.1 10*3/uL High 2.0-7.7 [facility] Basic Metabolic Profile (BMP )on 04-19-2024 BUN/CRE 21.1 RATIO High 10-20 [facility] Comment on above: Performed By: #### L 500.2500 #### [facility] [address] [place], [address] CA,Total 8.3 mg/dL Low 8.5-10.1 [facility] Comment on above: Performed By: #### L 500.2500 #### [facility] [address] [place], [address] Chloride [Moles/Vol] 105 mmol/L Normal 98-107 [facility] Comment on above: Performed By: #### L 500.2500 #### [facility] [address] [place], [address] CO2 [Moles/Vol] 28.0 mmol/L Normal 21.0-32.0 [facility] Comment on above: Performed By: #### L 500.2500 #### [facility] [address] [place], [address] Creatinine [Mass/Vol] 0.71 mg/dL Normal 0.55-1.02 [facility] Comment on above: Result Comment: The validity of the calculated GFR GFRAA in patients over 70 years has not been determined. Clinical correlation is essential. Performed By: #### L 500.2500 #### [facility] [address] [place], [address] ECRCL 73.05 ml/min Normal [facility] Comment on above: Performed By: #### L 500.2500 #### [facility] [address] [place], [address] EST GFR - AA 108 mL/min Normal >60 [facility] Comment on above: Result Comment: Afri can [employer] GFR Calc Performed By: #### L 500.2500 #### [facility] [address] [place], [address] GAP 7 Normal 5-15 [facility] Comment on above: Performed By: #### L 500.2500 #### [facility] [address] [place], [address] GFR/1.73 sq M.predicted among non-blacks MDRD (S/P/Bld) [Vol rate/Area] 89 mL/min/{1.73_m2} Normal >60 [facility] Comment on above: Result Comment: Non- GFR Calc Performed By: #### L 500.2500 #### [facility] [address] [place], [address] Glucose [Mass/Vol] 162 mg/dL High 74-106 [facility] Comment on above: Result Comment: Fast ing Glucose result greater than or equal to 126 mg/dL suggests DIABETES MELLITUS per A.D.A. criteria. Performed By: #### L 500.2500 #### [facility] [address] [place], [address] Potassium [Moles/Vol] 3.6 mmol/L Normal 3.5-5.1 [facility] Comment on above: Performed By: #### L 500.2500 #### [facility] [address] [place], [address] Sodium [Moles/Vol] 140 mmol/L Normal 136-145 [facility] Comment on above: Performed By: #### L 500.2500 #### [facility] [address] [place], [address] Urea nitrogen [Mass/Vol] 15 mg/dL Normal 7-18 [facility] Comment on above: Performed By: #### L 500.2500 #### [facility] [address] [place], [address] Basophil percentageOrdered B y: Mehrdad Norris on 04-19-2024 Basophils/100 WBC (Bld) 0.5 % 0-1 [facility] Bilirubin directOrdered By: Mehrdad Norris on 04-19-2024 Bilirubin.direct [Mass/Vol] 0.16 mg/dL 0.00-0.30 [facility] Bilirubin, totalOrdered By: Mehrdad Norris on 04-19-2024 Bilirubin [Mass/Vol] 0.60 mg/dL 0.20-1.00 [facility] Comment on above: For patients on eltr ombopag therapy, use of Dimension Bryant TBIL is not recommended. Blood urea nitrogen (BUN)/cr eatinine ratioOrdered By: Mehrdad Norris on 04-19-2024 Urea nitrogen/Creatinine [Mass ratio] 21.1 mg/mg High 10-20 [facility] CBC W/Diff, Automatedon 12-0 Absolute Lymph 1.78 X10 3/uL Normal 0.83-4.51 [facility] Comment on above: Performed By: #### L 502.0500, L501.9520 #### [facility] [address] [place], [address] Absolute Neut 8.1 X10 3/uL High 2.0-7.7 [facility] Comment on above: Performed By: #### L 502.0500, L501.9520 #### [facility] [address] [place], [address] Basophils/100 WBC (Bld) 0.5 % Normal 0-1 [facility] Comment on above: Performed By: #### L 502.0500, L501.9520 #### [facility] [address] [place], [address] Eosinophils/100 WBC (Bld) 2.6 % Normal 0-5 [facility] Comment on above: Performed By: #### L 502.0500, L501.9520 #### [facility] [address] [place], [address] Erythrocyte distribution width (RBC) [Ratio] 13.3 % Normal 11.6-14.6 [facility] Comment on above: Performed By: #### L 502.0500, L501.9520 #### [facility] [address] [place], [address] Hematocrit (Bld) [Volume fraction] 49.4 % High 37-47 [facility] Comment on above: Performed By: #### L 502.0500, L501.9520 #### [facility] [address] [place], [address] Hemoglobin (Bld) [Mass/Vol] 15.9 g/dL High 12.0-15.0 [facility] Comment on above: Performed By: #### L 502.0500, L501.9520 #### [facility] [address] [place], [address] IG% 3.500 High 0.0-0.9 [facility] Comment on above: Result Comment: IG% - Immature Granulocytes (promyelocytes, myelocytes and metamyelocytes) > 1% indicates that a LEFT SHIFT is Present. Performed By: #### L 502.0500, L501.9520 #### [facility] [address] [place], [address] Lymphocytes/100 WBC (Bld) 14.7 % Low 19-41 [facility] Comment on above: Performed By: #### L 502.0500, L501.9520 #### [facility] [address] [place], [address] MCH (RBC) [Entitic mass] 27.7 pg Normal 27.0-32.0 [facility] Comment on above: Performed By: #### L 502.0500, L501.9520 #### [facility] [address] [place], [address] MCHC (RBC) [Mass/Vol] 32.2 g/dL Normal 32-36 [facility] Comment on above: Performed By: #### L 502.0500, L501.9520 #### [facility] [address] [place], [address] MCV (RBC) [Entitic vol] 85.9 fL Normal 81-99 [facility] Comment on above: Performed By: #### L 502.0500, L501.9520 #### [facility] [address] [place], [address] Monocytes/100 WBC (Bld) 11.5 % High 0-10 [facility] Comment on above: Performed By: #### L 502.0500, L501.9520 #### [facility] [address] [place], [address] Neutrophils/100 WBC (Bld) 67.2 % Normal 47-70 [facility] Comment on above: Performed By: #### L 502.0500, L501.9520 #### [facility] [address] [place], [address] Nucleated RBC (Bld) [#/Vol] 0 10*3/uL Normal 0-5 [facility] Comment on above: Performed By: #### L 502.0500, L501.9520 #### [facility] [address] [place], [address] Platelet mean volume (Bld) [Entitic vol] 9.2 fL Normal 6.2-12.0 [facility] Comment on above: Performed By: #### L 502.0500, L501.9520 #### [facility] [address] [place], [address] Platelets (Bld) [#/Vol] 290 10*3/uL Normal 150-450 [facility] Comment on above: Performed By: #### L 502.0500, L501.9520 #### [facility] [address] [place], [address] RBC (Bld) [#/Vol] 5.75 10*6/uL High 4.2-5.4 [facility] Comment on above: Performed By: #### L 502.0500, L501.9520 #### [facility] [address] [place], [address] RDW SD 40.8 fl Normal 35.1-43.9 [facility] Comment on above: Performed By: #### L 502.0500, L501.9520 #### [facility] [address] [place], [address] WBC (Bld) [#/Vol] 12.1 10*3/uL High 4.4-11.0 [facility] Comment on above: Performed By: #### L 502.0500, L501.9520 #### [facility] [address] [place], [address] Carbon dioxide measurementOr dered By: Mehrdad Norris on 04-19-2024 CO2 [Moles/Vol] 28.0 mmol/L 21.0-32.0 [facility] Chloride measurementOrdered By: Mehrdad Norris on 04-19-2024 Chloride [Moles/Vol] 105 mmol/L 98-107 [facility] Emergency Department Summary on 04-19-2024 Emergency Department Summary [facility] Medical Records Department [address] [place] [address] Emergency Department Summary 04/19/24 MR#: [id number] Acct: [id number] Name: JERRYLEAH Rep #: [id number] : 1965 58 From: Mehrdad Norris MD PCP: Taylor Fields [facility] [place], [employer] Status:REG ER Location: ED HPI History of Present Illness Chief Complaint: Nausea/Vomiting Informant: patient Narrative Narrative: 58-year-old female presents with vomiting for the past 3 days consistently. It is nonbloody. She states it is basically anytime she tries to swallow anything including water. She feels like everything gets stuck in her mid chest and she cannot pass anything into her stomach. 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 She states that she has a repeat EGD to reevaluate it scheduled later this week. She had less persistent but daily vomiting earlier in the year, but it has not been as significant an issue until 3 days ago. She denies any abdominal or chest pain except for muscular soreness from retching, and she has some pain in her maxillary anterior gingiva and the corners of her mouth without bleeding. She denies any syncopal episodes, fevers or chills. She does have also have a history of esophageal varices that were found on EGD, but no cirrhosis that she knows of, she just became established with GI the month before last, and they ordered some other testing. [facility] Medical History (Updated 04/19/24 @ 22:[address] Mehrdad Norris MD) Lupus Osteoarthritis of right knee Right knee pain Greater trochanteric bursitis of left hip Osteoarthritis of left hip Left hip pain Psoriasis Wears glasses Arthritis Difficulty swallowing Gastric reflux History of cellulitis Bilateral carpal tunnel syndrome Anxiety Degenerative disc disease Fibromyalgia MRSA (methicillin resistant staph aureus) culture positive Hx of intestinal obstruction History of diverticulitis Bipolar 1 disorder Depression Diabetes Asthma PTSD (post-traumatic stress disorder) Home Medications ???Medication ???Instructions ???Recorded ???Last Taken ???Type trazodone 150 mg tablet 150 mg PO QHS anxiety 07/15/21 08/10/23 History albuterol sulfate 90 mcg/actuation 2 puff inhalation Q6H PRN 07/16/21 08/08/23 Rx aerosol inhaler shortness of breath or wheezing #8.5 grams ibuprofen 500 mg PO Q6H PRN PRN Pain 03/06/22 08/11/23 History hydroxyzine HCl 25 mg tablet 25 mg PO TID anxiety 11/04/22 08/12/23 07:30 History cetirizine 10 mg tablet 10 mg PO BID 03/06/23 08/11/23 History fluticasone fur. 200 mcg-umeclid 1 inh inhalation Q24H 04/08/23 08/12/23 07:30 History 62.5 mcg-vilant 25 mcg inhalat.powder (Trelegy Ellipta) lanolin alcohols-mineral 1 applic topical DAILY 04/08/23 08/10/23 History oil-w.petrolatum-ceresin topical cream (Minerin Creme topical) sertraline 50 mg tablet 50 mg PO DAILY 04/08/23 08/11/23 History acetaminophen 650 mg 1,300 mg PO Q12H 06/23/23 08/09/23 History tablet,extended release (Tylenol Arthritis Pain) hydroxyzine HCl 25 mg tablet 50 mg PO QHS 06/23/23 08/11/23 History dapagliflozin propanediol 10 mg 10 mg PO DAILY 10/01/23 Unknown History tablet (Farxiga) omeprazole 40 mg capsule,delayed 40 mg PO BID 10/01/23 Unknown History release triamcinolone acetonide 0.1 % 1 applic topical BID 10/01/23 Unknown History topical cream atorvastatin 20 mg tablet 20 mg PO QHS 10/28/23 Unknown History dicyclomine 20 mg tablet 20 mg PO BID PRN abdominal pain 03/12/24 Unknown Rx #30 tabs gabapentin 100 mg capsule 100 mg PO TID 03/12/24 Unknown History metformin 500 mg tablet 500 mg PO BID 03/12/24 Unknown History ondansetron 4 mg disintegrating 4 mg PO Q8H #20 tabs 03/12/24 Unknown Rx tablet propranolol 20 mg tablet 20 mg PO BID 03/12/24 Unknown History metoclopramide HCl 10 mg tablet 10 mg PO Q6H PRN nausea and 04/19/24 Unknown Rx vomiting #20 tabs Allergy/AdvReac Type Severity Reaction Status Date / Time Tetracyclines Allergy Intermediate Rash Verified 04/19/24 18:06 aminophylline Allergy Swelling Verified 04/19/24 18:06 amphetamine (From Adderall) Allergy Other Verified 04/19/24 18:06 dextroamphetamine (From Allergy Other Verified 04/19/24 18:06 Adderall) dulaglutide (From Trulicity) Allergy Vomiting Verified 04/19/24 18:06 Iodinated Contrast Media (CT) Allergy Swelling Verified 04/19/24 18:06 iodine Allergy Swelling Verified 04/19/24 18:06 povidone-iodine (From Allergy Swelling Verified 04/19/24 18:06 Betadine) shellfish derived Allergy Swelling Verified 04/19/24 18:06 Sulfa (Sulfonamide Allergy Swelling Verified 04/19/24 18:06 Antibiotics) buspirone (From BuSpar) AdvReac Intermediate Other Verified 04/19/24 18:06 allantoin (From Bl (more content not included)... Normal [facility] Eosinophil percentageOrdered By: Mehrdad Norris on 04-19-2024 Eosinophils/100 WBC (Bld) 2.6 % 0-5 [facility] Erythrocyte distribution wid th ratioOrdered By: Mehrdad Norris on 04-19-2024 Erythrocyte distribution width (RBC) [Ratio] 13.3 % 11.6-14.6 [facility] Erythrocyte distribution wid th standard deviationOrdered By: Mehrdad Norris on 04-19-2024 Erythrocyte distribution width (RBC) [Entitic vol] 40.8 fL 35.1-43.9 [facility] Estimated glomerular filtrat ion rate (GFR) AmericanOrdered By: Mehrdad Norris on 04-19-2024 Estimated GFR (MDRD) Amer 108 mL/min >60 [facility] Comment on above: GFR Calc Estimation of creatinine jorge alberto aranceOrdered By: Mehrdad Norris on 04-19-2024 Estimated Creatinine Clearance Calc 73.05 ml/min [facility] Glomerular filtration rate ( GFR) estimationOrdered By: Mehrdad Norris on 04-19-2024 Estimated GFR (MDRD) Non-Af Amer 89 mL/min >60 [facility] Comment on above: Non- GFR Calc Glucose measurementOrdered B y: Mehrdad Norris on 04-19-2024 Glucose [Mass/Vol] 162 mg/dL High 74-106 [facility] Comment on above: Fasting Glucose resu lt greater than or equal to 126 mg/dL suggests DIABETES MELLITUS per A.D.A. criteria. Hematocrit Auto (Bld) [Volum e fraction]Ordered By: Mehrdad Norris on 04-19-2024 Hematocrit (Bld) [Volume fraction] 49.4 % High 37-47 [facility] Hemoglobin measurementOrdere d By: Mehrdad Norris on 04-19-2024 Hemoglobin (Bld) [Mass/Vol] 15.9 g/dL High 12.0-15.0 [facility] Immature granulocytes/100 WB C Auto (Bld)Ordered By: Mehrdad Norris on 04-19-2024 Immature granulocytes/100 WBC (Bld) 3.500 % High 0.0-0.9 [facility] Comment on above: IG% - Immature Granu locytes (promyelocytes, myelocytes and metamyelocytes) > 1% indicates that a LEFT SHIFT is Present. International normalized rat io (INR) calculationOrdered By: Mehrdad Norris on 04-19-2024 INR Coag (Bld) [Relative time] 1.0 {INR} [facility] Laboratory - Chemistry and C hemistry - challengeOrdered By: Mehrdad Norris on 04-19-2024 AST [Catalytic activity/Vol] 16 U/L 15- [facility] Liver Profileon 04-19-2024 Albumin [Mass/Vol] 3.7 g/dL Normal 3.2-5.0 [facility] Comment on above: Performed By: #### L 502.0500, L501.9520 #### [facility] Laboratory [address] [place], [place], [id number] ALK P 206 U/L High 45-117 [facility] Comment on above: Performed By: #### L 502.0500, L501.9520 #### [facility] Laboratory [address] [place], [address] ALT [Catalytic activity/Vol] 17 U/L Normal 13-56 [facility] Comment on above: Performed By: #### L 502.0500, L501.9520 #### [facility] Laboratory [address] [place], [address] AST [Catalytic activity/Vol] 16 U/L Normal 15-37 [facility] Comment on above: Performed By: #### L 502.0500, L501.9520 #### [facility] Laboratory [address] [place], [address] Bilirubin [Mass/Vol] 0.60 mg/dL Normal 0.20-1.00 [facility] Comment on above: Result Comment: For patients on eltrombopag therapy, use of Dimension Bryant TBIL is not recommended. Performed By: #### L 502.0500, L501.9520 #### [facility] Laboratory [address] [place], [address] Bilirubin.direct [Mass/Vol] 0.16 mg/dL Normal 0.00-0.30 [facility] Comment on above: Performed By: #### L [id number], [id number] #### [facility] Laboratory [address] [place], [address] Globulin (S) [Mass/Vol] 4.0 g/dL Normal 2.2-4.2 [facility] Comment on above: Performed By: #### L 502.0500, [id number] #### [facility] Laboratory [address] [place], [address] T PROT 7.7 g/dL Normal 6.4-8.2 [facility] Comment on above: Performed By: #### L 502.0500, L501.9520 #### [facility] Laboratory [address] [place], [address] Lymphocytes Auto (Unsp spec) [#/Vol]Ordered By: Mehrdad Norris on 04-19-2024 Lymphocytes (Bld) [#/Vol] 1.78 10*3/uL 0.83-4.51 [facility] Lymphocytes/100 WBC Auto (Un sp spec)Ordered By: Mehrdad Norris on 04-19-2024 Lymphocytes/100 WBC (Bld) 14.7 % Low 19-41 [facility] MCV (mean corpuscular volume ) determinationOrdered By: Mehrdad Norris on 04-19-2024 MCV (RBC) [Entitic vol] 85.9 fL 81-99 [facility] Mean corpuscular hemoglobin (MCH) determinationOrdered By: Mehrdad Norris on 04-19-2024 MCH (RBC) [Entitic mass] 27.7 pg 27.0-32.0 [facility] Mean corpuscular hemoglobin concentration (MCHC) determinationOrdered By: Mehrdad Norris on 04-19-2024 MCHC (RBC) [Mass/Vol] 32.2 g/dL 32-36 [facility] Mean platelet volume determi nationOrdered By: Mehrdad Norris on 04-19-2024 Platelet mean volume (Bld) [Entitic vol] 9.2 fL 6.2-12.0 [facility] Monocyte percentageOrdered B y: Mehrdad Norris on 04-19-2024 Monocytes/100 WBC (Bld) 11.5 % High 0-10 [facility] Neutrophil percentageOrdered By: Mehrdad Norris on 04-19-2024 Neutrophils/100 WBC (Bld) 67.2 % 47-70 [facility] Nucleated red blood cell per centageOrdered By: Mehrdad Norris on 04-19-2024 Nucleated RBC/100 WBC (Bld) [Ratio] 0 % 0-5 [facility] Platelet countOrdered By: Alida Norris on 04-19-2024 Platelets (Bld) [#/Vol] 290 10*3/uL 150-450 [facility] Potassium measurementOrdered By: Mehrdad Norris on 04-19-2024 Potassium [Moles/Vol] 3.6 mmol/L 3.5-5.1 [facility] Prothrombin Time w/INRon INR Coag (PPP) [Relative time] 1.0 {INR} Normal [facility] Comment on above: Performed By: #### L 502.0500, L501.9520 #### [facility] Laboratory [address] [place], [place], [id number] PT Coag (PPP) [Time] 13.0 s Normal 11.7-14.9 [facility] Comment on above: Performed By: #### L 502.0500, L501.9520 #### [facility] Laboratory [place], [address] Prothrombin timeOrdered By: Mehrdad Norris on 04-19-2024 PT Coag (PPP) [Time] 13.0 s 11.7-14.9 [facility] RBC Auto (Bld) [#/Vol]Ordere d By: Mehrdad Norris on 04-19-2024 RBC (Bld) [#/Vol] 5.75 10*6/uL High 4.2-5.4 [facility] Serum anion gap measurementO rdered By: Mehrdad Norris on 04-19-2024 Anion gap [Moles/Vol] 7 mmol/L 5-15 [facility] Serum globulin measurementOr dered By: Mehrdad Norris on 04-19-2024 Globulin (S) [Mass/Vol] 4.0 g/dL 2.2-4.2 [facility] Serum or plasma alanine lucero otransferase (ALT) measurementOrdered By: Mehrdad Norris on 04-19-2024 ALT [Catalytic activity/Vol] 17 U/L 13-56 [facility] Serum or plasma albumin kallie urement (mass/volume)Ordered By: Mehrdad Norris on 04-19-2024 Albumin [Mass/Vol] 3.7 g/dL 3.2-5.0 [facility] Serum or plasma alkaline nayeli sphatase measurementOrdered By: Mehrdad Norris on 04-19-2024 ALP [Catalytic activity/Vol] 206 U/L High 45-117 [facility] Serum or plasma calcium kallie urement (mass/volume)Ordered By: Mehrdad Norris on 04-19-2024 Calcium [Mass/Vol] 8.3 mg/dL Low 8.5-10.1 [facility] Serum or plasma creatinine m easurement (mass/volume)Ordered By: Mehrdad Norris on 04-19-2024 Creatinine [Mass/Vol] 0.71 mg/dL 0.55-1.02 [facility] Comment on above: The validity of the calculated GFR & GFRAA in patients over 70 years has not been determined. Clinical correlation is essential. Serum or plasma urea nitroge n measurement (mass/volume)Ordered By: Mehrdad Norris on 04-19-2024 Urea nitrogen [Mass/Vol] 15 mg/dL 7-18 [facility] Sodium levelOrdered By: Raj Norris on 04-19-2024 Sodium [Moles/Vol] 140 mmol/L 136-145 [facility] Total proteinOrdered By: Shania figueroaneha Myrna on 04-19-2024 Protein [Mass/Vol] 7.7 g/dL 6.4-8.2 [facility] White blood cell (WBC) count Ordered By: Mehrdad Norris on 04-19-2024 WBC (Bld) [#/Vol] 12.1 10*3/uL High 4.4-11.0 [facility] Absolute neutrophil countOrd ered By: Elyssa Arugello on 04-14-2024 Neutrophils (Bld) [#/Vol] 10.0 10*3/uL High 2.0-7.7 [facility] Albumin to globulin ratioOrd ered By: Elyssa Arguello on 04-14-2024 Albumin/Globulin [Mass ratio] 1.2 {ratio} 0.9-2.4 [facility] Basophil percentageOrdered B y: Elyssa Arguello on 04-14-2024 Basophils/100 WBC (Bld) 0.4 % 0-1 [facility] Bedside Glucoseon 04-14-2024 FINGERSTICK GLU 182 mg/dL High 74-106 [facility] Comment on above: Result Comment: NORBERTO ANDERSONENT OF PATIENT CARE PER NURSING PROTOCOL Performed By: #### L 501.080 #### [facility] Laboratory [address] [place], [address] Bilirubin directOrdered By: Elyssa Arguello on 04-14-2024 Bilirubin.direct [Mass/Vol] 0.13 mg/dL 0.00-0.30 [facility] Bilirubin, Directon 04-14-20 24 Bilirubin.direct [Mass/Vol] 0.13 mg/dL Normal 0.00-0.30 [facility] Comment on above: Performed By: #### L 500.2500 #### [facility] Laboratory [address] [place], [address] Bilirubin, totalOrdered By: Elyssa Arguello on 04-14-2024 Bilirubin [Mass/Vol] 0.30 mg/dL 0.20-1.00 [facility] Comment on above: For patients on eltr ombopag therapy, use of Dimension Bryant TBIL is not recommended. Blood urea nitrogen (BUN)/cr eatinine ratioOrdered By: Elyssa Arguello on 04-14-2024 Urea nitrogen/Creatinine [Mass ratio] 16.9 mg/mg 03-07 [facility] CBC W/Diff, Automatedon 03-20 Absolute Lymph 2.27 X10 3/uL Normal 0.83-4.51 [facility] Comment on above: Performed By: #### L 501.080 #### [facility] Laboratory [address] [place], [address] Absolute Neut 10.0 X10 3/uL High 2.0-7.7 [facility] Comment on above: Performed By: #### L [id number] #### [facility] Laboratory [address] [place], [address] Basophils/100 WBC (Bld) 0.4 % Normal 0-1 [facility] Comment on above: Performed By: #### L 501.080 #### [facility] Laboratory [address] [place], [address] Eosinophils/100 WBC (Bld) 0.4 % Normal 0-5 [facility] Comment on above: Performed By: #### L 501.080 #### [facility] Laboratory [address] [place], [address] Erythrocyte distribution width (RBC) [Ratio] 12.7 % Normal 11.6-14.6 [facility] Comment on above: Performed By: #### L 501.080 #### [facility] Laboratory [address] [place], [address] Hematocrit (Bld) [Volume fraction] 40.3 % Normal 37-47 [facility] Comment on above: Performed By: #### L 501.080 #### [facility] Laboratory [address] [place], [address] Hemoglobin (Bld) [Mass/Vol] 13.2 g/dL Normal 12.0-15.0 [facility] Comment on above: Performed By: #### L 501.080 #### [facility] Laboratory [address] [place], [address] IG% 1.600 High 0.0-0.9 [facility] Comment on above: Result Comment: IG% - Immature Granulocytes (promyelocytes, myelocytes and metamyelocytes) > 1% indicates that a LEFT SHIFT is Present. Performed By: #### L 501.080 #### [facility] Laboratory [address] [place], [address] Lymphocytes/100 WBC (Bld) 16.2 % Low 19-41 [facility] Comment on above: Performed By: #### L 501.080 #### [facility] Laboratory [address] [place], [address] MCH (RBC) [Entitic mass] 27.7 pg Normal 27.0-32.0 [facility] Comment on above: Performed By: #### L 501.080 #### [facility] Laboratory [address] [place], [address] MCHC (RBC) [Mass/Vol] 32.8 g/dL Normal 32-36 [facility] Comment on above: Performed By: #### L 501.080 #### [facility] Laboratory [address] [place], [address] MCV (RBC) [Entitic vol] 84.7 fL Normal 81-99 [facility] Comment on above: Performed By: #### L 501.080 #### [facility] Laboratory [address] [place], [address] Monocytes/100 WBC (Bld) 10.2 % High 0-10 [facility] Comment on above: Performed By: #### L 501.080 #### [facility] Laboratory [address] [place], [address] Neutrophils/100 WBC (Bld) 71.2 % High 47-70 [facility] Comment on above: Performed By: #### L 501.080 #### [facility] Laboratory [address] [place], [address] Nucleated RBC (Bld) [#/Vol] 0 10*3/uL Normal 0-5 [facility] Comment on above: Performed By: #### L 501.080 #### [facility] Laboratory [address] [place], [address] Platelet mean volume (Bld) [Entitic vol] 9.0 fL Normal 6.2-12.0 [facility] Comment on above: Performed By: #### L 501.080 #### [facility] Laboratory [address] [place], [address] Platelets (Bld) [#/Vol] 299 10*3/uL Normal 150-450 [facility] Comment on above: Performed By: #### L 501.080 #### [facility] Laboratory [address] [place], [address] RBC (Bld) [#/Vol] 4.76 10*6/uL Normal 4.2-5.4 [facility] Comment on above: Performed By: #### L 501.080 #### [facility] Laboratory [address] [place], [address] RDW SD 39.1 fl Normal 35.1-43.9 [facility] Comment on above: Performed By: #### L 501.080 #### [facility] Laboratory [address] [place], [address] WBC (Bld) [#/Vol] 14.0 10*3/uL High 4.4-11.0 [facility] Comment on above: Performed By: #### L 501.080 #### [facility] Laboratory [address] [place], [address] Carbon dioxide measurementOr dered By: Elyssa Arguello on 04-14-2024 CO2 [Moles/Vol] 24.0 mmol/L 21.0-32.0 [facility] Chloride measurementOrdered By: Elyssa Arguello on 04-14-2024 Chloride [Moles/Vol] 108 mmol/L High 98-107 [facility] Comprehensive Metabolic Prof ilon 04-14-2024 Albumin [Mass/Vol] 3.7 g/dL Normal 3.2-5.0 [facility] Comment on above: Performed By: #### L 501.080 #### [facility] Laboratory [address] [place], [address] Albumin/Globulin [Mass ratio] 1.2 {ratio} Normal 0.9-2.4 [facility] Comment on above: Performed By: #### L 501.080 #### [facility] Laboratory [address] [place], [address] ALK P 185 U/L High 45-117 [facility] Comment on above: Performed By: #### L 501.080 #### [facility] Laboratory [address] [place], [address] ALT [Catalytic activity/Vol] 19 U/L Normal 13-56 [facility] Comment on above: Performed By: #### L 501.080 #### [facility] Laboratory [address] [place], [address] AST [Catalytic activity/Vol] 20 U/L Normal 15-37 [facility] Comment on above: Performed By: #### L 501.080 #### [facility] Laboratory [address] [place], [address] Bilirubin [Mass/Vol] 0.30 mg/dL Normal 0.20-1.00 [facility] Comment on above: Result Comment: For patients on eltrombopag therapy, use of Dimension Bryant TBIL is not recommended. Performed By: #### L 501.080 #### [facility] Laboratory [address] [place], [address] BUN/CRE 16.9 RATIO Normal 10-20 [facility] Comment on above: Performed By: #### L 501.080 #### [facility] Laboratory [address] [place], [address] CA,Total 8.8 mg/dL Normal 8.5-10.1 [facility] Comment on above: Performed By: #### L 501.080 #### [facility] Laboratory [address] [place], [address] Chloride [Moles/Vol] 108 mmol/L High 98-107 [facility] Comment on above: Performed By: #### L 501.080 #### [facility] Laboratory [address] [place], [address] CO2 [Moles/Vol] 24.0 mmol/L Normal 21.0-32.0 [facility] Comment on above: Performed By: #### L 501.080 #### [facility] Laboratory [address] [place], [address] Creatinine [Mass/Vol] 0.95 mg/dL Normal 0.55-1.02 [facility] Comment on above: Result Comment: The validity of the calculated GFR GFRAA in patients over 70 years has not been determined. Clinical correlation is essential. Performed By: #### L 501.080 #### [facility] Laboratory [address] [place], [address] EST GFR - AA 77 mL/min Normal >60 [facility] Comment on above: Result Comment: Afri can S[place] GFR Calc Performed By: #### L 501.080 #### [facility] Laboratory [address] [place], [address] GAP 6 Normal 5-15 [facility] Comment on above: Performed By: #### L 501.080 #### [facility] Laboratory [address] [place], [address] GFR/1.73 sq M.predicted among non-blacks MDRD (S/P/Bld) [Vol rate/Area] 64 mL/min/{1.73_m2} Normal >60 [facility] Comment on above: Result Comment: Non- GFR Calc Performed By: #### L 501.080 #### [facility] Laboratory [address] [place], [address] Globulin (S) [Mass/Vol] 3.1 g/dL Normal 2.2-4.2 [facility] Comment on above: Performed By: #### L 501.080 #### [facility] Laboratory [address] [place], [address] Glucose [Mass/Vol] 223 mg/dL High 74-106 [facility] Comment on above: Result Comment: Gluc ose result greater than or equal to 200 mg/dL suggests DIABETES MELLITUS per A.D.A. criteria. Performed By: #### L 501.080 #### [facility] Laboratory [address] [place], [address] Potassium [Moles/Vol] 3.6 mmol/L Normal 3.5-5.1 [facility] Comment on above: Performed By: #### L 501.080 #### [facility] Laboratory [address] [place], [address] Sodium [Moles/Vol] 138 mmol/L Normal 136-145 [facility] Comment on above: Performed By: #### L 501.080 #### [facility] Laboratory [address] [place], [address] T PROT 6.8 g/dL Normal 6.4-8.2 [facility] Comment on above: Performed By: #### L 501.080 #### [facility] Laboratory [address], [place], [id number] Urea nitrogen [Mass/Vol] 16 mg/dL Normal 7-18 [facility] Comment on above: Performed By: #### L 501.080 #### [facility] Laboratory [address] [place], [place], [address] Emergency Department Summary on 04-14-2024 Emergency Department Summary [facility] Medical Records Department [address] [address] Emergency Department Summary 04/14/24 MR#: [id number] Acct: [id number] Name: LEAH JERRY Rep #: [id number] : [id number] 58 From: Montrell Yousif PCP: KINGS Ruby, [employer] Status:DEP ER Location: ED HPI History of Present Illness Chief Complaint: Allergic Reaction Informant: patient Narrative Narrative: Presents for concerns for allergic rash. Use witch beverly to wash her body yesterday, noted pruritic rash today mostly in the torso. No lip or tongue swelling. Took 3 Benadryl's prior to arrival. Reports being worked up for concerns for lupus. Diabetic history reports sugars are well- controlled. She is on Zyrtec twice daily also. She states she used witch beverly 1 time in the past with no reaction. Prior similar symptoms: No PFSH PFSH Medical History Osteoarthritis of right knee Right knee pain Greater trochanteric bursitis of left hip Osteoarthritis of left hip Left hip pain Psoriasis Wears glasses Arthritis Difficulty swallowing Gastric reflux History of cellulitis Bilateral carpal tunnel syndrome Anxiety Degenerative disc disease Fibromyalgia MRSA (methicillin resistant staph aureus) culture positive Hx of intestinal obstruction History of diverticulitis Bipolar 1 disorder Depression Diabetes Asthma PTSD (post-traumatic stress disorder) Home Medications ???Medication ???Instructions ???Recorded ???Last Taken ???Type trazodone 150 mg tablet 150 mg PO QHS anxiety 07/15/21 08/10/23 History albuterol sulfate 90 mcg/actuation 2 puff inhalation Q6H PRN 07/16/21 08/08/23 Rx aerosol inhaler shortness of breath or wheezing #8.5 grams ibuprofen 500 mg PO Q6H PRN PRN Pain 03/06/22 08/11/23 History hydroxyzine HCl 25 mg tablet 25 mg PO TID anxiety 11/04/22 08/12/23 07:30 History cetirizine 10 mg tablet 10 mg PO BID 03/06/23 08/11/23 History fluticasone fur. 200 mcg-umeclid 1 inh inhalation Q24H 04/08/23 08/12/23 07:30 History 62.5 mcg-vilant 25 mcg inhalat.powder (Trelegy Ellipta) lanolin alcohols-mineral 1 applic topical DAILY 04/08/23 08/10/23 History oil-w.petrolatum-ceresin topical cream (Minerin Creme topical) sertraline 50 mg tablet 50 mg PO DAILY 04/08/23 08/11/23 History acetaminophen 650 mg 1,300 mg PO Q12H 06/23/23 08/09/23 History tablet,extended release (Tylenol Arthritis Pain) hydroxyzine HCl 25 mg tablet 50 mg PO QHS 06/23/23 08/11/23 History dapagliflozin propanediol 10 mg 10 mg PO DAILY 10/01/23 Unknown History tablet (Farxiga) omeprazole 40 mg capsule,delayed 40 mg PO BID 10/01/23 Unknown History release triamcinolone acetonide 0.1 % 1 applic topical BID 10/01/23 Unknown History topical cream atorvastatin 20 mg tablet 20 mg PO QHS 10/28/23 Unknown History prednisone 20 mg tablet 20 mg PO BID #10 tabs 03/01/24 Unknown Rx dicyclomine 20 mg tablet 20 mg PO BID PRN abdominal pain 03/12/24 Unknown Rx #30 tabs gabapentin 100 mg capsule 100 mg PO TID 03/12/24 Unknown History metformin 500 mg tablet 500 mg PO BID 03/12/24 Unknown History ondansetron 4 mg disintegrating 4 mg PO Q8H #20 tabs 03/12/24 Unknown Rx tablet propranolol 20 mg tablet 20 mg PO BID 03/12/24 Unknown History prednisone 20 mg tablet 40 mg (2 x 20 mg) PO DAILY #8 04/14/24 Unknown Rx TABLETS Allergy/AdvReac Type Severity Reaction Status Date / Time Tetracyclines Allergy Intermediate Rash Verified 04/14/24 13:45 aminophylline Allergy Swelling Verified 04/14/24 13:45 amphetamine (From Adderall) Allergy Other Verified 04/14/24 13:45 dextroamphetamine (From Allergy Other Verified 04/14/24 13:45 Adderall) dulaglutide (From Trulicity) Allergy Vomiting Verified 04/14/24 13:45 Iodinated Contrast Media (CT) Allergy Swelling Verified 04/14/24 13:45 iodine Allergy Swelling Verified 04/14/24 13:45 povidone-iodine (From Allergy Swelling Verified 04/14/24 13:45 Betadine) shellfish derived Allergy Swelling Verified 04/14/24 13:45 Sulfa (Sulfonamide Allergy Swelling Verified 04/14/24 13:45 Antibiotics) buspirone (From BuSpar) AdvReac Intermediate Other Verified 04/14/24 13:45 allantoin (From Blistex) AdvReac Swelling Verified 04/14/24 13:45 aloe vera (From Blistex) AdvReac Swelling Verified 04/14/24 13:45 camphor (From Blistex) AdvReac Swelling Verified 04/14/24 13:45 chamomile flower (From AdvReac Swelling Verified 04/14/24 13:45 Blistex) dimethicone (From Blistex) AdvReac Swelling Verified 04/14/24 13:45 herbal complex no.57 (From AdvReac Swelling Verified 04/14/24 13:45 Blistex) homosalate (From Blistex) AdvReac Swelling Verified 04/14/24 13:45 menthol (From Blistex) AdvReac Swelling Verified 04/14/24 13:45 meradimate (From (more content not included)... Normal [facility] Eosinophil percentageOrdered By: Elyssa Arguello on 04-14-2024 Eosinophils/100 WBC (Bld) 0.4 % 0-5 [facility] Erythrocyte distribution wid th ratioOrdered By: Elyssa Arguello on 04-14-2024 Erythrocyte distribution width (RBC) [Ratio] 12.7 % 11.6-14.6 [facility] Erythrocyte distribution wid th standard deviationOrdered By: Elyssa Arguello on 04-14-2024 Erythrocyte distribution width (RBC) [Entitic vol] 39.1 fL 35.1-43.9 [facility] Estimated glomerular filtrat ion rate (GFR) AmericanOrdered By: Elyssa Arguello on 04-14-2024 Estimated GFR (MDRD) Amer 77 mL/min >60 [facility] Comment on above: GFR Calc Glomerular filtration rate ( GFR) estimationOrdered By: Elyssa Arguello on 04-14-2024 Estimated GFR (MDRD) Non-Af Amer 64 mL/min >60 [facility] Comment on above: Non- GFR Calc Glucose measurementOrdered B y: Elyssa Arguello on 04-14-2024 Glucose [Mass/Vol] 223 mg/dL High 74-106 [facility] Comment on above: Glucose result great er than or equal to 200 mg/dLsuggests DIABETES MELLITUS per A.D.A. criteria. Gl[facility] at [facility] deOrdered By: Montrell Zapien on 04-14-2024 Bedside Glucose (Misc Panel) 182 mg/dL High 74-106 [facility] Comment on above: MANAGEMENT OF PATIEN T CARE PER NURSING PROTOCOL Hematocrit Auto (Bld) [Volum e fraction]Ordered By: Elyssa Arguello on 04-14-2024 Hematocrit (Bld) [Volume fraction] 40.3 % 37-47 [facility] Hemoglobin measurementOrdere d By: Elyssa Arguello on 04-14-2024 Hemoglobin (Bld) [Mass/Vol] 13.2 g/dL 12.0-15.0 [facility] Immature granulocytes/100 WB C Auto (Bld)Ordered By: Elyssa Arguello on 04-14-2024 Immature granulocytes/100 WBC (Bld) 1.600 % High 0.0-0.9 [facility] Comment on above: IG% - Immature Granu locytes (promyelocytes, myelocytes and metamyelocytes) > 1% indicates that a LEFT SHIFT is Present. Laboratory - Chemistry and C hemistry - challengeOrdered By: Elyssa Arguello on 04-14-2024 AST [Catalytic activity/Vol] 20 U/L 15-37 [facility] Lymphocytes Auto (Unsp spec) [#/Vol]Ordered By: Elyssa Arguello on 04-14-2024 Lymphocytes (Bld) [#/Vol] 2.27 10*3/uL 0.83-4.51 [facility] Lymphocytes/100 WBC Auto (Un sp spec)Ordered By: Elyssa Arguello on 04-14-2024 Lymphocytes/100 WBC (Bld) 16.2 % Low 19-41 [facility] MCV (mean corpuscular volume ) determinationOrdered By: Elyssa Arguello on 04-14-2024 MCV (RBC) [Entitic vol] 84.7 fL 81-99 [facility] Mean corpuscular hemoglobin (MCH) determinationOrdered By: Elyssa Arguello on 04-14-2024 MCH (RBC) [Entitic mass] 27.7 pg 27.0-32.0 [facility] Mean corpuscular hemoglobin concentration (MCHC) determinationOrdered By: Elyssa Arguello on 04-14-2024 MCHC (RBC) [Mass/Vol] 32.8 g/dL 32-36 [facility] Mean platelet volume determi nationOrdered By: Elyssa Arguello on 04-14-2024 Platelet mean volume (Bld) [Entitic vol] 9.0 fL 6.2-12.0 [facility] Monocyte percentageOrdered B y: Elyssa Arguello on 04-14-2024 Monocytes/100 WBC (Bld) 10.2 % High 0-10 [facility] Neutrophil percentageOrdered By: Elyssa Arguello on 04-14-2024 Neutrophils/100 WBC (Bld) 71.2 % High 47-70 [facility] Nucleated red blood cell per centageOrdered By: Elyssa Arguello on 04-14-2024 Nucleated RBC/100 WBC (Bld) [Ratio] 0 % 0-5 [facility] Platelet countOrdered By: Della Arguello on 04-14-2024 Platelets (Bld) [#/Vol] 299 10*3/uL 150-450 [facility] Potassium measurementOrdered By: Elyssa Arguello on 04-14-2024 Potassium [Moles/Vol] 3.6 mmol/L 3.5-5.1 [facility] RBC Auto (Bld) [#/Vol]Ordere d By: Elyssa Arguello on 04-14-2024 RBC (Bld) [#/Vol] 4.76 10*6/uL 4.2-5.4 [facility] Serum anion gap measurementO rdered By: Elyssa Arguello on 04-14-2024 Anion gap [Moles/Vol] 6 mmol/L 5-15 [facility] Serum globulin measurementOr dered By: Elyssa Arguello on 04-14-2024 Globulin (S) [Mass/Vol] 3.1 g/dL 2.2-4.2 [facility] Serum or plasma alanine lucero otransferase (ALT) measurementOrdered By: Elyssa Arguello on 04-14-2024 ALT [Catalytic activity/Vol] 19 U/L 13-56 [facility] Serum or plasma albumin kallie urement (mass/volume)Ordered By: Elyssa Arguello on 04-14-2024 Albumin [Mass/Vol] 3.7 g/dL 3.2-5.0 [facility] Serum or plasma alkaline nayeli sphatase measurementOrdered By: Elyssa Arguello on 04-14-2024 ALP [Catalytic activity/Vol] 185 U/L High 45-117 [facility] Serum or plasma calcium kallie urement (mass/volume)Ordered By: Elyssa Arguello on 04-14-2024 Calcium [Mass/Vol] 8.8 mg/dL 8.5-10.1 [facility] Serum or plasma creatinine m easurement (mass/volume)Ordered By: Elyssa Arguello on 04-14-2024 Creatinine [Mass/Vol] 0.95 mg/dL 0.55-1.02 [facility] Comment on above: The validity of the calculated GFR & GFRAA in patients over 70 years has not been determined. Clinical correlation is essential. Serum or plasma urea nitroge n measurement (mass/volume)Ordered By: Elyssa Arguello on 04-14-2024 Urea nitrogen [Mass/Vol] 16 mg/dL 7-18 [facility] Sodium levelOrdered By: Emily Arguello on 04-14-2024 Sodium [Moles/Vol] 138 mmol/L 136-145 [facility] Total proteinOrdered By: Liane kapadia Jos on 04-14-2024 Protein [Mass/Vol] 6.8 g/dL 6.4-8.2 [facility] White blood cell (WBC) count Ordered By: Elyssa Jos on 04-14-2024 WBC (Bld) [#/Vol] 14.0 10*3/uL High 4.4-11.0 [facility] Orthopedic Visit Reporton Orthopedic Visit Report [facility] [address] [place] [address] [address] [place] [address] OFFICE VISIT Date of Service: 04/09/24 MR#: [id number] Acct: [id number] Name: LEAH JERRY Rep #: [id number] : 1965 Provider: Dr. Jonny kennedy MD Age/Sex: 58/F Location[place] [facility] [place] [facility] [place] Status: Signed with Addenda ADDENDUM by Rhiannon Pastor on 04/09/24 at 1413 Office Procedure Documentation entered by Rhiannon Pastor 04/09/24 14:13: Ortho Injections Injections Yes Knee Right Is this a patient provided medication?: No Details: Obtained consent for injection. Under sterile conditions, injected the patients right knee with 2cc kenalog 4cc bupivacaine. The patient tolerated the injection well without any noted complication. Patient should call our office if redness develops, pain worsens or if they have any concerns. Office Meds Kenalog 40 mg/mL suspension for injection Performing Provider: Jonny Marino MD Performing Location: [facility] Administered by: Jonny Marino MD on 04/09/24 14:11 Dose Route Admin Location Dispensed Lot Number Expiration Date NDC Man ufacturer 80 mg intra-articular right knee 2 mL [id number] 09/16/25 0639-1566-69 [facility] [place] [place] [facility] Date cc: * Signed Intake Vital Signs 03/01/24 13:13 Height 5 ft 1 in Weight: 143 lb 1.6 oz BMI 27.0 BP 160/90 H Respiration 18 Pulse 87 Temp 97.7 F L Temp Source Oral Pulse Oximetry (%) 100 Intake Visit Reasons: RIGHT KNEE Accompanied by: Self Is patient in pain?: Yes Pain scale (1-10): 8 Allergies Tetracyclines Allergy (Intermediate, Verified 04/09/24 13:48) Rash aminophylline Allergy (Verified 04/09/24 13:48) Swelling amphetamine (From Adderall) Allergy (Verified 04/09/24 13:48) Other dextroamphetamine (From Adderall) Allergy (Verified 04/09/24 13:48) Other dulaglutide (From Trulicity) Allergy (Verified 04/09/24 13:48) Vomiting Iodinated Contrast Media (CT) Allergy (Verified 04/09/24 13:48) Swelling iodine Allergy (Verified 04/09/24 13:48) Swelling povidone-iodine (From Betadine) Allergy (Verified 04/09/24 13:48) Swelling shellfish derived Allergy (Verified 04/09/24 13:48) Swelling Sulfa (Sulfonamide Antibiotics) Allergy (Verified 04/09/24 13:48) Swelling buspirone (From BuSpar) Adverse Reaction (Intermediate, Verified 04/09/24 13:48) Other allantoin (From Blistex) Adverse Reaction (Verified 04/09/24 13:48) Swelling aloe vera (From Blistex) Adverse Reaction (Verified 04/09/24 13:48) Swelling camphor (From Blistex) Adverse Reaction (Verified 04/09/24 13:48) Swelling chamomile flower (From Blistex) Adverse Reaction (Verified 04/09/24 13:48) Swelling dimethicone (From Blistex) Adverse Reaction (Verified 04/09/24 13:48) Swelling herbal complex no.57 (From Blistex) Adverse Reaction (Verified 04/09/24 13:48) Swelling homosalate (From Blistex) Adverse Reaction (Verified 04/09/24 13:48) Swelling menthol (From Blistex) Adverse Reaction (Verified 04/09/24 13:48) Swelling meradimate (From Blistex) Adverse Reaction (Verified 04/09/24 13:48) Swelling octinoxate (From Blistex) Adverse Reaction (Verified 04/09/24 13:48) Swelling octyl salicylate (From Blistex) Adverse Reaction (Verified 04/09/24 13:48) Swelling oxybenzone (From Blistex) Adverse Reaction (Verified 04/09/24 13:48) Swelling padimate O (From Blistex) Adverse Reaction (Verified 04/09/24 13:48) Swelling petrolatum,hydrophilic (From Blistex) Adverse Reaction (Verified 04/09/24 13:48) Swelling phenol (From Blistex) Adverse Reaction (Verified 04/09/24 13:48) Swelling tetracycline Adverse Reaction (Verified 04/09/24 13:48) Rash Medications ???Medication ???Instructions ???Recorded ???Confirmed ???Type trazodone 150 mg tablet 150 mg PO QHS anxiety 07/15/21 04/09/24 History albuterol sulfate 90 mcg/actuation 2 puff inhalation Q6H PRN 07/16/21 04/09/24 Rx aerosol inhaler shortness of breath or wheezing #8.5 grams ibuprofen 500 mg PO Q6H PRN PRN Pain 03/06/22 04/09/24 History hydroxyzine HCl 25 mg tablet 25 mg PO TID anxiety 11/04/22 04/09/24 History cetirizine 10 mg tablet 10 mg PO BID 03/06/23 04/09/24 History fluticasone fur. 200 mcg-umeclid 1 inh inhalation Q24H 04/08/23 04/09/24 History 62.5 mcg-vilant 25 mcg inhalat.powder (Trelegy Ellipta) lanolin alcohols-mineral 1 applic topical DAILY 04/08/23 04/09/24 History oil-w.petrolatum-ceresin topical cream (Minerin Creme topical) sertraline 50 mg tablet 50 mg PO DAILY 04/08/23 04/09/24 History acetaminophen 650 mg 1,300 mg PO Q12H 06/23/23 04/09/24 History tablet,extended release (Tylenol Arthritis Pain) hydroxyzine HCl 25 mg tablet 50 mg PO QHS 06/23/23 04/09/24 History dapagliflozin propane (more content not included)... Normal [facility] Orthopedic Visit Reporton Orthopedic Visit Report [facility] [address] [place] [address] OFFICE VISIT Date of Service: 04/06/24 MR#: [id number] Acct: [id number] Name: LEAH JERRY Rep #: [id number] : 1965 Provider: Dr. Jonny kennedy MD Age/Sex: 58/F Location: [facility] [place] [facility] [place] Status: Signed with Addenda ADDENDUM by Rhiannon Pastor on 04/06/24 at 1536 Office Procedure Documentation entered by Rhiannon Pastor 04/06/24 15:36: Ortho Injections Injections Yes Greater Trochanteric Bursa Injection Left Is this a patient provided medication?: No Details: Obtained consent for injection. Under sterile conditions, injected the patients left greater trochanteric bursa with 1cc Kenalog 3cc Bupivacaine. The patient tolerated the injection well without any noted complication. Patient should call our office if redness develops, pain worsens or if they have any concerns. Office Meds Kenalog 40 mg/mL suspension for injection Performing Provider: Jonny Marino MD Performing Location: [facility] Administered by: Jonny Marino MD on 04/06/24 15:34 Dose Route Admin Location Dispensed Lot Number Expiration Date NDC Man ufacturer 40 mg intra-articular left greater troch. bursa 1 mL [id number] 09/16/25 0253-5456-55 [facility] [place] [place] Date cc: * Signed Intake Vital Signs 03/01/24 13:13 Height 5 ft 1 in Weight: 143 lb 1.6 oz BMI 27.0 BP 160/90 H Respiration 18 Pulse 87 Temp 97.7 F L Temp Source Oral Pulse Oximetry (%) 100 Intake Visit Reasons: LEFT HIP Accompanied by: Self Is patient in pain?: Yes (10) Allergies Tetracyclines Allergy (Intermediate, Verified 04/06/24 14:01) Rash aminophylline Allergy (Verified 04/06/24 14:01) Swelling amphetamine (From Adderall) Allergy (Verified 04/06/24 14:01) Other dextroamphetamine (From Adderall) Allergy (Verified 04/06/24 14:01) Other dulaglutide (From Trulicity) Allergy (Verified 04/06/24 14:01) Vomiting Iodinated Contrast Media (CT) Allergy (Verified 04/06/24 14:01) Swelling iodine Allergy (Verified 04/06/24 14:01) Swelling povidone-iodine (From Betadine) Allergy (Verified 04/06/24 14:01) Swelling shellfish derived Allergy (Verified 04/06/24 14:01) Swelling Sulfa (Sulfonamide Antibiotics) Allergy (Verified 04/06/24 14:01) Swelling buspirone (From BuSpar) Adverse Reaction (Intermediate, Verified 04/06/24 14:01) Other allantoin (From Blistex) Adverse Reaction (Verified 04/06/24 14:01) Swelling aloe vera (From Blistex) Adverse Reaction (Verified 04/06/24 14:01) Swelling camphor (From Blistex) Adverse Reaction (Verified 04/06/24 14:01) Swelling chamomile flower (From Blistex) Adverse Reaction (Verified 04/06/24 14:01) Swelling dimethicone (From Blistex) Adverse Reaction (Verified 04/06/24 14:01) Swelling herbal complex no.57 (From Blistex) Adverse Reaction (Verified 04/06/24 14:01) Swelling homosalate (From Blistex) Adverse Reaction (Verified 04/06/24 14:01) Swelling menthol (From Blistex) Adverse Reaction (Verified 04/06/24 14:01) Swelling meradimate (From Blistex) Adverse Reaction (Verified 04/06/24 14:01) Swelling octinoxate (From Blistex) Adverse Reaction (Verified 04/06/24 14:01) Swelling octyl salicylate (From Blistex) Adverse Reaction (Verified 04/06/24 14:01) Swelling oxybenzone (From Blistex) Adverse Reaction (Verified 04/06/24 14:01) Swelling padimate O (From Blistex) Adverse Reaction (Verified 04/06/24 14:01) Swelling petrolatum,hydrophilic (From Blistex) Adverse Reaction (Verified 04/06/24 14:01) Swelling phenol (From Blistex) Adverse Reaction (Verified 04/06/24 14:01) Swelling tetracycline Adverse Reaction (Verified 04/06/24 14:01) Rash Medications ???Medication ???Instructions ???Recorded ???Confirmed ???Type trazodone 150 mg tablet 150 mg PO QHS anxiety 07/15/21 04/06/24 History albuterol sulfate 90 mcg/actuation 2 puff inhalation Q6H PRN 07/16/21 04/06/24 Rx aerosol inhaler shortness of breath or wheezing #8.5 grams ibuprofen 500 mg PO Q6H PRN PRN Pain 03/06/22 04/06/24 History hydroxyzine HCl 25 mg tablet 25 mg PO TID anxiety 11/04/22 04/06/24 History cetirizine 10 mg tablet 10 mg PO BID 03/06/23 04/06/24 History fluticasone fur. 200 mcg-umeclid 1 inh inhalation Q24H 04/08/23 04/06/24 History 62.5 mcg-vilant 25 mcg inhalat.powder (Trelegy Ellipta) lanolin alcohols-mineral 1 applic topical DAILY 04/08/23 04/06/24 History oil-w.petrolatum-ceresin topical cream (Minerin Creme topical) sertraline 50 mg tablet 50 mg PO DAILY 04/08/23 04/06/24 History acetaminophen 650 mg 1,300 mg PO Q12H 06/23/23 04/06/24 History tablet,extended release (Tylenol Arthritis Pain) hydroxyzine HCl 25 mg tablet 50 mg PO QHS (more content not included)... Normal [facility] AFP, Tumor Markeron 03-31-20 AFP TUMOR BRISEYAD 4.6 ng/mL Normal 0.0-9.2 [facility] Comment on above: Order Comment: Test( s) [id number], Serum or Plasmawas developed and its performance characteristicsdetermined by [employer]. It has not been cleared or approvedby the Food and Drug Administration.N Result Comment: [employer] Electrochemiluminescence Immunoassay (ECLIA) Values obtained with different assay methods or kits cannot be used interchangeably. Results cannot be interpreted as absolute evidence of the presence or absence of malignant disease. This test is not interpretable in females. Performed By: #### L 501.080 #### [facility] [address] [place], [place], [id number] ANCAon 03-31-2024 Atypical pANCA <1:20 Normal Neg:<1:20 [facility] Comment on above: Order Comment: Test( s) [id number], Serum or Plasmawas developed and its performance characteristicsdetermined by [employer]. It has not been cleared or approvedby the Food and Drug Administration.N Result Comment: The atypical pANCA pattern has been observed in a significant percentage of patients with ulcerative colitis, primary sclerosing cholangitis and autoimmune hepatitis. Performed By: #### L 501.080 #### [facility] [address] [place], [place], [id number] Cytoplasmic Ab <1:20 Normal Neg:<1:20 [facility] Comment on above: Order Comment: Test( s) [id number], Serum or Plasmawas developed and its performance characteristicsdetermined by [employer]. It has not been cleared or approvedby the Food and Drug Administration.N Performed By: #### L 501.080 #### [facility] [address] [place], [place], [id number] Perinuclear Ab. <1:20 Normal Neg:<1:20 [facility] Comment on above: Order Comment: Test( s) [id number], Serum or Plasmawas developed and its performance characteristicsdetermined by [employer]. It has not been cleared or approvedby the Food and Drug Administration.N Result Comment: The presence of positive fluorescence exhibiting P-ANCA or C-ANCA patterns alone is not specific for the diagnosis of Elysia's Granulomatosis (WG) or microscopic polyangiitis. Decisions about treatment should not be based solely on ANCA IFA results. The [employer] ANCA [employer] Consensus recommends follow up testing of positive sera with both FL- 3 and MPO-ANCA enzyme immunoassays. As many as 5% serum samples are positive only by EIA. Ref. AM J Clin Pathol 1999;111:507-513. Performed By: #### L 501.080 #### [facility] [address] [place], [place], [address] Angiotensin Convert Enzymeon 03-31-2024 ANGIOT-CONV.ENZ 55 U/L Normal 14-82 [facility] Comment on above: Order Comment: Test( s) [id number], Serum or Plasmawas developed and its performance characteristicsdetermined by [employer]. It has not been cleared or approvedby the Food and Drug Administration.N Performed By: #### L 3000.0375, L504.2610, L501.4700, L503.5510, L501.9985, L101.9900, L800.1280, L803.2200, L3100.5440, L500.4050, L300.3900, L3300.1200, L503.6075, L3100.6900, L501.6710, L3300.0100, L3890.6005, L500.4100, L300.4310, L503.6550, L3300.0700, L3400.3800, L3100.1850, L3400.0700, L100.0100 ####[facility] [address] [place], [place], [address] Anti-Smooth Muscle ABSon ANTISMOOTH MUSC 2 Units Normal 0-19 [facility] Comment on above: Order Comment: Test( s) [id number], Serum or Plasmawas developed and its performance characteristicsdetermined by [employer]. It has not been cleared or approvedby the Food and Drug Administration.N Result Comment: [facility] tive 0 - 19 Weak positive 20 - 30 Moderate to strong positive >30 Actin Antibodies are found in 52-85% of patients with autoimmune hepatitis or chronic active hepatitis and in 22% of patients with primary biliary cirrhosis. Performed By: #### L 3000.0375, L504.2610, L501.4700, L503.5510, L501.9985, L101.9900, L800.1280, L803.2200, L3100.5440, L500.4050, L300.3900, L3300.1200, L503.6075, L3100.6900, L501.6710, L3300.0100, L3890.6005, L500.4100, L300.4310, L503.6550, L3300.0700, L3400.3800, L3100.1850, L3400.0700, L100.0100 ####[facility] [address] [place], [address] Ceruloplasminon 03-31-2024 CERULOPLASMIN 31.0 mg/dL Normal 19.0-39.0 [facility] Comment on above: Order Comment: Test( s) 110739-Liihtr, Serum or Plasmawas developed and its performance characteristicsdetermined by [employer]. It has not been cleared or approvedby the Food and Drug Administration.N Performed By: #### L 501.080 #### [facility] Laboratory [address] [facility] [place], [address] Copper, Serum or Plasmaon COPPER, SERUM 120 ug/dL Normal 80-158 [facility] Comment on above: Order Comment: Test( s) 712457-Enviap, Serum or Plasmawas developed and its performance characteristicsdetermined by [employer]. It has not been cleared or approvedby the Food and Drug Administration.N Result Comment: Dete ction Limit = 5 Performed By: #### L 3000.0375, L504.2610, L501.4700, L503.5510, L501.9985, L101.9900, L800.1280, L803.2200, L3100.5440, L500.4050, L300.3900, L3300.1200, L503.6075, L3100.6900, L501.6710, L3300.0100, L3890.6005, L500.4100, L300.4310, L503.6550, L3300.0700, L3400.3800, L3100.1850, L3400.0700, L100.0100 ####[facility] [address], [address] Haptoglobinon 03-31-2024 HAPTOGLOBIN 130 mg/dL Normal 33-346 [facility] Comment on above: Order Comment: Test( s) 721907-Iqxnke, Serum or Plasmawas developed and its performance characteristicsdetermined by [employer]. It has not been cleared or approvedby the Food and Drug Administration.N Performed By: #### L 3000.0375, L504.2610, L501.4700, L503.5510, L501.9985, L101.9900, L800.1280, L803.2200, L3100.5440, L500.4050, L300.3900, L3300.1200, L503.6075, L3100.6900, L501.6710, L3300.0100, L3890.6005, L500.4100, L300.4310, L503.6550, L3300.0700, L3400.3800, L3100.1850, L3400.0700, L100.0100 ####[facility] [address] [place], [address] Hepatitis Panel Acuteon 03-19 COMMENT Comment Normal . [facility] Comment on above: Order Comment: Test( s) 898763-Ggoglp, Serum or Plasmawas developed and its performance characteristicsdetermined by [employer]. It has not been cleared or approvedby the Food and Drug Administration.N Result Comment: Not infected with HCV unless early or acute infection is suspected (which may be delayed in an immunocompromised individual), or other evidence exists to indicate HCV infection. Performed By: #### L 3000.0375, L504.2610, L501.4700, L503.5510, L501.9985, L101.9900, L800.1280, L803.2200, L3100.5440, L500.4050, L300.3900, L3300.1200, L503.6075, L3100.6900, L501.6710, L3300.0100, L3890.6005, L500.4100, L300.4310, L503.6550, L3300.0700, L3400.3800, L3100.1850, L3400.0700, L100.0100 ####[facility] [address] [facility] [address] [place], [place], [address] HEP B CORE,IgM Negative Normal Negative [facility] Comment on above: Order Comment: Test( s) [id number]-Zdpqap, Serum or Plasmawas developed and its performance characteristicsdetermined by [employer]. It has not been cleared or approvedby the Food and Drug Administration.N Performed By: #### L 3000.0375, L504.2610, L501.4700, L503.5510, L501.9985, L101.9900, L800.1280, L803.2200, L3100.5440, L500.4050, L300.3900, L3300.1200, L503.6075, L3100.6900, L501.6710, L3300.0100, L3890.6005, L500.4100, L300.4310, L503.6550, L3300.0700, L3400.3800, L3100.1850, L3400.0700, L100.0100 ####[facility] [address] [facility]. [place], [place], [id number] HEP B SURF AG Negative Normal Negative [facility] Comment on above: Order Comment: Test( s) 432240-Rmrggq, Serum or Plasmawas developed and its performance characteristicsdetermined by [employer]. It has not been cleared or approvedby the Food and Drug Administration.N Performed By: #### L 3000.0375, L504.2610, L501.4700, L503.5510, L501.9985, L101.9900, L800.1280, L803.2200, L3100.5440, L500.4050, L300.3900, L3300.1200, L503.6075, L3100.6900, L501.6710, L3300.0100, L3890.6005, L500.4100, L300.4310, L503.6550, L3300.0700, L3400.3800, L3100.1850, L3400.0700, L100.0100 ####[facility] [address], [address] HEP C VIRUS AB Non-Reactive Normal Non Reactive [facility] Comment on above: Order Comment: Test( s) 976791-Parwev, Serum or Plasmawas developed and its performance characteristicsdetermined by [employer]. It has not been cleared or approvedby the Food and Drug Administration.N Performed By: #### L 3000.0375, L504.2610, L501.4700, L503.5510, L501.9985, L101.9900, L800.1280, L803.2200, L3100.5440, L500.4050, L300.3900, L3300.1200, L503.6075, L3100.6900, L501.6710, L3300.0100, L3890.6005, L500.4100, L300.4310, L503.6550, L3300.0700, L3400.3800, L3100.1850, L3400.0700, L100.0100 ####[facility] [address] [facility] [place], [address] HEPATITIS A-IgM Negative Normal Negative [facility] Comment on above: Order Comment: Test( s) [id number]-Lbwxwo, Serum or Plasmawas developed and its performance characteristicsdetermined by [employer]. It has not been cleared or approvedby the Food and Drug Administration.N Result Comment: A ne gative anti-HAV IgM result suggests no recent or current HAV infection. Performed By: #### L 3000.0375, L504.2610, L501.4700, L503.5510, L501.9985, L101.9900, L800.1280, L803.2200, L3100.5440, L500.4050, L300.3900, L3300.1200, L503.6075, L3100.6900, L501.6710, L3300.0100, L3890.6005, L500.4100, L300.4310, L503.6550, L3300.0700, L3400.3800, L3100.1850, L3400.0700, L100.0100 ####[facility] [address] [place], [place], [address] Transferrinon 03-31-2024 Transferrin [Mass/Vol] 308 mg/dL Normal 192-364 [facility] Comment on above: Order Comment: Test( s) [id number]-Tzfcuh, Serum or Plasmawas developed and its performance characteristicsdetermined by [employer]. It has not been cleared or approvedby the Food and Drug Administration.N Result Comment: Perf ormed at: [facility] [address] [id number] Executive Relations Specialist: Luis Zuñiga PhD, Phone: [phone] Performed at: [facility] [address] [id number] Executive Relations Specialist: Reina Wiggins MD, Phone: [phone] Performed By: #### L 501.080 #### [facility] Laboratory [address] [place], [place], [address] ATIF Comprehensive Panelon ATIF TABLE Comment Normal . [facility] Comment on above: Result Comment: Auto antibody Disease Association Condition Frequency --------- Antinuclear Antibody, SLE, mixed connective Direct (ATIF-D) tissue diseases --------- dsDNA SLE 40 - 60% --------- Chromatin Drug induced SLE 90% SLE 48 - 97% --------- SSA (Ro) SLE 25 - 35% Sjogren's Syndrome 40 - 70% Lupus 100% --------- SSB (La) SLE 10% Sjogren's Syndrome 30% --------- Sm (anti-Marin) SLE 15 - 30% --------- RIGGER CHIEF Mixed Connective Tissue Disease 95% (U1 nRNP, SLE 30 - 50% anti-ribonucleoprotein) Polymyositis and/or Dermatomyositis 20% --------- Scl-70 (antiDNA Scleroderma (diffuse) 20 - 35% topoisomerase) Crest 13% --------- Suzanna-1 Polymyositis and/or Dermatomyositis 20 - 40% --------- Centromere B Scleroderma - Crest variant 80% Performed By: #### L 3000.0375, L504.2610, L501.4700, L503.5510, L501.9985, L101.9900, L800.1280, L803.2200, L3100.5440, L500.4050, L300.3900, L3300.1200, L503.6075, L3100.6900, L501.6710, L3300.0100, L3890.6005, L500.4100, L300.4310, L503.6550, L3300.0700, L3400.3800, L3100.1850, L3400.0700, L100.0100 ####[facility] [address] [facility] [place], [address] ANTI-CENT B AB <0.2 Normal 0.0-0.9 [facility] Comment on above: Performed By: #### L 3000.0375, L504.2610, L501.4700, L503.5510, L501.9985, L101.9900, L800.1280, L803.2200, L3100.5440, L500.4050, L300.3900, L3300.1200, L503.6075, L3100.6900, L501.6710, L3300.0100, L3890.6005, L500.4100, L300.4310, L503.6550, L3300.0700, L3400.3800, L3100.1850, L3400.0700, L100.0100 ####[facility] [address] [place], [address] ANTI-DNA (DS)AB <1 Normal 0-9 [facility] Comment on above: Result Comment: Nega tive <5 Equivocal 5 - 9 Positive >9 Performed By: #### L 3000.0375, L504.2610, L501.4700, L503.5510, L501.9985, L101.9900, L800.1280, L803.2200, L3100.5440, L500.4050, L300.3900, L3300.1200, L503.6075, L3100.6900, L501.6710, L3300.0100, L3890.6005, L500.4100, L300.4310, L503.6550, L3300.0700, L3400.3800, L3100.1850, L3400.0700, L100.0100 ####[facility] [address] [facility] [place], [address] ANTI-SUZANNA-1 <0.2 Normal 0.0-0.9 [facility] Comment on above: Performed By: #### L 3000.0375, L504.2610, L501.4700, L503.5510, L501.9985, L101.9900, L800.1280, L803.2200, L3100.5440, L500.4050, L300.3900, L3300.1200, L503.6075, L3100.6900, L501.6710, L3300.0100, L3890.6005, L500.4100, L300.4310, L503.6550, L3300.0700, L3400.3800, L3100.1850, L3400.0700, L100.0100 ####[facility] [address] [facility] [place], [address] ANTI-SS-A 2.4 AI High 0.0-0.9 [facility] Comment on above: Performed By: #### L 3000.0375, L504.2610, L501.4700, L503.5510, L501.9985, L101.9900, L800.1280, L803.2200, L3100.5440, L500.4050, L300.3900, L3300.1200, L503.6075, L3100.6900, L501.6710, L3300.0100, L3890.6005, L500.4100, L300.4310, L503.6550, L3300.0700, L3400.3800, L3100.1850, L3400.0700, L100.0100 ####[facility] [address] [place], [place], [address] ANTI-SS-B < 0.2 Normal 0.0-0.9 [facility] Comment on above: Performed By: #### L 3000.0375, L504.2610, L501.4700, L503.5510, L501.9985, L101.9900, L800.1280, L803.2200, L3100.5440, L500.4050, L300.3900, L3300.1200, L503.6075, L3100.6900, L501.6710, L3300.0100, L3890.6005, L500.4100, L300.4310, L503.6550, L3300.0700, L3400.3800, L3100.1850, L3400.0700, L100.0100 ####[facility] [address] [place], [place], [address] ANTICHROMATIN 0.3 AI Normal 0.0-0.9 [facility] Comment on above: Performed By: #### L 3000.0375, L504.2610, L501.4700, L503.5510, L501.9985, L101.9900, L800.1280, L803.2200, L3100.5440, L500.4050, L300.3900, L3300.1200, L503.6075, L3100.6900, L501.6710, L3300.0100, L3890.6005, L500.4100, L300.4310, L503.6550, L3300.0700, L3400.3800, L3100.1850, L3400.0700, L100.0100 ####[facility] [address] [facility] [place], [place], [id number] ANTISCLERODERM <0.2 Normal 0.0-0.9 [facility] Comment on above: Performed By: #### L 3000.0375, L504.2610, L501.4700, L503.5510, L501.9985, L101.9900, L800.1280, L803.2200, L3100.5440, L500.4050, L300.3900, L3300.1200, L503.6075, L3100.6900, L501.6710, L3300.0100, L3890.6005, L500.4100, L300.4310, L503.6550, L3300.0700, L3400.3800, L3100.1850, L3400.0700, L100.0100 ####[facility] [address] [facility] [place], [place], [id number] RIGGER CHIEF Ab <0.2 Normal 0.0-0.9 [facility] Comment on above: Performed By: #### L 3000.0375, L504.2610, L501.4700, L503.5510, L501.9985, L101.9900, L800.1280, L803.2200, L3100.5440, L500.4050, L300.3900, L3300.1200, L503.6075, L3100.6900, L501.6710, L3300.0100, L3890.6005, L500.4100, L300.4310, L503.6550, L3300.0700, L3400.3800, L3100.1850, L3400.0700, L100.0100 ####[facility] [address] [place], [place], [address] MARIN Ab <0.2 Normal 0.0-0.9 [facility] Comment on above: Performed By: #### L 3000.0375, L504.2610, L501.4700, L503.5510, L501.9985, L101.9900, L800.1280, L803.2200, L3100.5440, L500.4050, L300.3900, L3300.1200, L503.6075, L3100.6900, L501.6710, L3300.0100, L3890.6005, L500.4100, L300.4310, L503.6550, L3300.0700, L3400.3800, L3100.1850, L3400.0700, L100.0100 ####[facility] [address], [address] Anti-Mitochondrial ABon ANTIMITOCHON AB <20.0 Normal 0.0-20.0 [facility] Comment on above: Result Comment: Nega tive 0.0 - 20.0 Equivocal 20.1 - 24.9 Positive >24.9 Mitochondrial (M2) Antibodies are found in 90-96% of patients with primary biliary cirrhosis. Performed at: [address] [id number] Executive Relations Specialist: Luis Zuñiga PhD, Phone: [phone] Performed By: #### L 3000.0375, L504.2610, L501.4700, L503.5510, L501.9985, L101.9900, L800.1280, L803.2200, L3100.5440, L500.4050, L300.3900, L3300.1200, L503.6075, L3100.6900, L501.6710, L3300.0100, L3890.6005, L500.4100, L300.4310, L503.6550, L3300.0700, L3400.3800, L3100.1850, L3400.0700, L100.0100 ####[facility] [address] [place], [place], [id number] ABD Limited w/ Elastographyo n 03-25-2024 ABD Limited w/ Elastography [facility] [address] [place], [place] [id number] ABD Limited w/ Elastography MR#: [id number] Acct: [id number] Name: LEAH JERRY Rep #: [id number] : 1965 F 58 From: Henrry rodriguez MD PCP: Taylor Fields Yajaira, [employer]-C Status: REG CLI Study: ABD Limited w/ Elastography Date of Exam: 12/09 Exam# [id number] Ordering Dr: Elyssa Arguello [id number] STUDY: ABDOMINAL ULTRASOUND - RIGHT UPPER QUADRANT; ELASTOGRAPHY REASON FOR VISIT: Female, 58 years old. Esophageal varices. TECHNIQUE: Ultrasound evaluation of the right upper quadrant was performed with real-time and static bullock-scale imaging. Point quantification shear wave elastography was performed (Webcrumbz). TECHNICAL QUALITY: Adequate. COMPARISON: None. FINDINGS: Liver: The liver measures 17.2 cm. There is a heterogeneous echogenicity of the liver. The bile ducts are within normal limits. There is hepatic color flow. The direction of portal flow is hepatopetal. There is no demonstrated mass lesion. Median liver stiffness measured 3.3 kPa. Gallbladder: Normal distended gallbladder. The gallbladder wall measures 2 mm. There is a negative sonographic Gill''s sign. There is no pericholecystic fluid. There are no gallstones. Common Bile Duct (C.B.D.): The common bile duct measures 5 mm. Pancreas: There is normal echogenicity of the visualized pancreas. There is no demonstrated pancreatic mass or cyst. Right Kidney: Normal size of the right kidney. The right kidney measures 10 cm x 4.7 cm x 4.1 cm. Normal renal cortex. The right cortex measures 1.5 cm. There is no demonstrated renal mass or cyst. There is no right hydronephrosis. US/ABD Limited w/ Elastography IMPRESSION: 1. Liver stiffness measures 3.3 kPa compatible with FO (Normal) Metavir score. Electronically Signed: Henrry Barroso MD at 13:01 EST , CC: [facility] Fields; LILLY Pulido Administrative Support Specialist: Signed Normal [facility] Absolute neutrophil countOrd ered By: Elyssa Arguello on 03-25-2024 Neutrophils (Bld) [#/Vol] 2.8 10*3/uL 2.0-7.7 [facility] Actin IgG QnOrdered By: Emily Arguello on 03-25-2024 Anti-Smooth Muscle Antibody 2 Units 0-19 [facility] Comment on above: Negative 0 - 19 Weak positive 20 - 30 Moderate to strong positive >30 Actin Antibodies are found in 52-85% of patients with autoimmune hepatitis or chronic active hepatitis and in 22% of patients with primary biliary cirrhosis. Albumin to globulin ratioOrd ered By: Elyssa Arguello on 03-25-2024 Albumin/Globulin [Mass ratio] 1.2 {ratio} 0.9-2.4 [facility] Alpha fetoprotein measuremen t as tumor markerOrdered By: Elyssa Arguello on 03-25-2024 Tumor Marker Alpha Fetoprotein 4.6 ng/mL 0.0-9.2 [facility] Comment on above: [facility] El ectrochemiluminescence Immunoassay(ECLIA)Values obtained with different assay methods or kits cannotbe used interchangeably. Results cannot be interpreted asabsolute evidence of the presence or absence of malignantdisease.This test is not interpretable in females. Ammoniaon 03-25-2024 Ammonia (P) [Moles/Vol] 19.0 umol/L Normal [facility] Comment on above: Performed By: #### L 3000.0375, L504.2610, L501.4700, L503.5510, L501.9985, L101.9900, L800.1280, L803.2200, L3100.5440, L500.4050, L300.3900, L3300.1200, L503.6075, L3100.6900, L501.6710, L3300.0100, L3890.6005, L500.4100, L300.4310, L503.6550, L3300.0700, L3400.3800, L3100.1850, L3400.0700, L100.0100 ####[facility] [address] [place], [address] Atypical perinuclear antineu trophil cytoplasmic antibodies measurementOrdered By: Elyssa Arguello on 03-25-2024 Atypical p-ANCA <1:20 titer Neg:<1:20 [facility] Comment on above: The atypical pANCA p attern has been observed in asignificant percentage of patients with ulcerative colitis,primary sclerosing cholangitis and autoimmune hepatitis. Basophil percentageOrdered B y: Elyssa Arguello on 03-25-2024 Basophils/100 WBC (Bld) 0.7 % 0-1 [facility] Bilirubin directOrdered By: Elyssa Arguello on 03-25-2024 Bilirubin.direct [Mass/Vol] 0.13 mg/dL 0.00-0.30 [facility] Bilirubin, Directon 03-25-20 24 Bilirubin.direct [Mass/Vol] 0.13 mg/dL Normal 0.00-0.30 [facility] Comment on above: Order Comment: 1 Performed By: #### L 3000.0375, L504.2610, L501.4700, L503.5510, L501.9985, L101.9900, L800.1280, L803.2200, L3100.5440, L500.4050, L300.3900, L3300.1200, L503.6075, L3100.6900, L501.6710, L3300.0100, L3890.6005, L500.4100, L300.4310, L503.6550, L3300.0700, L3400.3800, L3100.1850, L3400.0700, L100.0100 ####[facility] [address] [place], [place], [id number] Bilirubin, totalOrdered By: Elyssa Arguello on 03-25-2024 Bilirubin [Mass/Vol] 0.40 mg/dL 0.20-1.00 [facility] Comment on above: For patients on eltr ombopag therapy, use of Dimension Bryant TBIL is not recommended. Blood urea nitrogen (BUN)/cr eatinine ratioOrdered By: Elyssa Arguello on 03-25-2024 Urea nitrogen/Creatinine [Mass ratio] 21.8 mg/mg High 10- [facility] C-reactive protein measureme nt by high sensitivity methodOrdered By: Elyssa Arguello on 03-25-2024 C-Reactive Protein Extended Range < 2.90 mg/L 0.0-3.0 [facility] Comment on above: C-Reactive Protein ( CRP) provides useful information for thediagnosis, therapy and monitoring of inflammatory processesand associated diseases. For the evaluation of Relative Riskfor Cardiovascular Disease, a High Sensitivity CRP (HSCRP)should be ordered. CBC W/Diff, Automatedon Absolute Lymph 1.17 X10 3/uL Normal 0.83-4.51 [facility] Comment on above: Performed By: #### L 3000.0375, L504.2610, L501.4700, L503.5510, L501.9985, L101.9900, L800.1280, L803.2200, L3100.5440, L500.4050, L300.3900, L3300.1200, L503.6075, L3100.6900, L501.6710, L3300.0100, L3890.6005, L500.4100, L300.4310, L503.6550, L3300.0700, L3400.3800, L3100.1850, L3400.0700, L100.0100 #### [facility] [address] [place], [address] Absolute Neut 2.8 X10 3/uL Normal 2.0-7.7 [facility] Comment on above: Performed By: #### L 3000.0375, L504.2610, L501.4700, L503.5510, L501.9985, L101.9900, L800.1280, L803.2200, L3100.5440, L500.4050, L300.3900, L3300.1200, L503.6075, L3100.6900, L501.6710, L3300.0100, L3890.6005, L500.4100, L300.4310, L503.6550, L3300.0700, L3400.3800, L3100.1850, L3400.0700, L100.0100 #### [facility] [address] [place], [address] (254) Basophils/100 WBC (Bld) 0.7 % Normal 0-1 [facility] Comment on above: Performed By: #### L 3000.0375, L504.2610, L501.4700, L503.5510, L501.9985, L101.9900, L800.1280, L803.2200, L3100.5440, L500.4050, L300.3900, L3300.1200, L503.6075, L3100.6900, L501.6710, L3300.0100, L3890.6005, L500.4100, L300.4310, L503.6550, L3300.0700, L3400.3800, L3100.1850, L3400.0700, L100.0100 #### [facility] [address] [facility] [place], [address] (256) Eosinophils/100 WBC (Bld) 5.7 % High 0-5 [facility] Comment on above: Performed By: #### L 3000.0375, L504.2610, L501.4700, L503.5510, L501.9985, L101.9900, L800.1280, L803.2200, L3100.5440, L500.4050, L300.3900, L3300.1200, L503.6075, L3100.6900, L501.6710, L3300.0100, L3890.6005, L500.4100, L300.4310, L503.6550, L3300.0700, L3400.3800, L3100.1850, L3400.0700, L100.0100 #### [facility] [address] [facility] [place], [place], [id number] Erythrocyte distribution width (RBC) [Ratio] 13.4 % Normal 11.6-14.6 [facility] Comment on above: Performed By: #### L 3000.0375, L504.2610, L501.4700, L503.5510, L501.9985, L101.9900, L800.1280, L803.2200, L3100.5440, L500.4050, L300.3900, L3300.1200, L503.6075, L3100.6900, L501.6710, L3300.0100, L3890.6005, L500.4100, L300.4310, L503.6550, L3300.0700, L3400.3800, L3100.1850, L3400.0700, L100.0100 #### [facility] [address] [place], [address] Hematocrit (Bld) [Volume fraction] 39.3 % Normal 37-47 [facility] Comment on above: Performed By: #### L 3000.0375, L504.2610, L501.4700, L503.5510, L501.9985, L101.9900, L800.1280, L803.2200, L3100.5440, L500.4050, L300.3900, L3300.1200, L503.6075, L3100.6900, L501.6710, L3300.0100, L3890.6005, L500.4100, L300.4310, L503.6550, L3300.0700, L3400.3800, L3100.1850, L3400.0700, L100.0100 #### [facility] [address] [place], [address] Hemoglobin (Bld) [Mass/Vol] 12.2 g/dL Normal 12.0-15.0 [facility] Comment on above: Performed By: #### L 3000.0375, L504.2610, L501.4700, L503.5510, L501.9985, L101.9900, L800.1280, L803.2200, L3100.5440, L500.4050, L300.3900, L3300.1200, L503.6075, L3100.6900, L501.6710, L3300.0100, L3890.6005, L500.4100, L300.4310, L503.6550, L3300.0700, L3400.3800, L3100.1850, L3400.0700, L100.0100 #### [facility] [address] [place], [address] IG% 0.400 Normal 0.0-0.9 [facility] Comment on above: Result Comment: IG% - Immature Granulocytes (promyelocytes, myelocytes and metamyelocytes) > 1% indicates that a LEFT SHIFT is Present. Performed By: #### L 3000.0375, L504.2610, L501.4700, L503.5510, L501.9985, L101.9900, L800.1280, L803.2200, L3100.5440, L500.4050, L300.3900, L3300.1200, L503.6075, L3100.6900, L501.6710, L3300.0100, L3890.6005, L500.4100, L300.4310, L503.6550, L3300.0700, L3400.3800, L3100.1850, L3400.0700, L100.0100 #### [facility] [address] [place], [address] Lymphocytes/100 WBC (Bld) 25.5 % Normal 19-41 [facility] Comment on above: Performed By: #### L 3000.0375, L504.2610, L501.4700, L503.5510, L501.9985, L101.9900, L800.1280, L803.2200, L3100.5440, L500.4050, L300.3900, L3300.1200, L503.6075, L3100.6900, L501.6710, L3300.0100, L3890.6005, L500.4100, L300.4310, L503.6550, L3300.0700, L3400.3800, L3100.1850, L3400.0700, L100.0100 #### [facility] [address] [facility] [address] [place], [place], [phone] ([phone] MCH (RBC) [Entitic mass] 27.7 pg Normal 27.0-32.0 [facility] Comment on above: Performed By: #### L 3000.0375, L504.2610, L501.4700, L503.5510, L501.9985, L101.9900, L800.1280, L803.2200, L3100.5440, L500.4050, L300.3900, L3300.1200, L503.6075, L3100.6900, L501.6710, L3300.0100, L3890.6005, L500.4100, L300.4310, L503.6550, L3300.0700, L3400.3800, L3100.1850, L3400.0700, L100.0100 #### [facility] [address] [place], [address] MCHC (RBC) [Mass/Vol] 31.0 g/dL Low 32-36 [facility] Comment on above: Performed By: #### L 3000.0375, L504.2610, L501.4700, L503.5510, L501.9985, L101.9900, L800.1280, L803.2200, L3100.5440, L500.4050, L300.3900, L3300.1200, L503.6075, L3100.6900, L501.6710, L3300.0100, L3890.6005, L500.4100, L300.4310, L503.6550, L3300.0700, L3400.3800, L3100.1850, L3400.0700, L100.0100 #### [facility] [address] [facility] [place], [place], [id number] MCV (RBC) [Entitic vol] 89.1 fL Normal 81-99 [facility] Comment on above: Performed By: #### L 3000.0375, L504.2610, L501.4700, L503.5510, L501.9985, L101.9900, L800.1280, L803.2200, L3100.5440, L500.4050, L300.3900, L3300.1200, L503.6075, L3100.6900, L501.6710, L3300.0100, L3890.6005, L500.4100, L300.4310, L503.6550, L3300.0700, L3400.3800, L3100.1850, L3400.0700, L100.0100 #### [facility] Laboratory [address] [place], [place], [id number] Monocytes/100 WBC (Bld) 7.8 % Normal 0-10 [facility] Comment on above: Performed By: #### L 3000.0375, L504.2610, L501.4700, L503.5510, L501.9985, L101.9900, L800.1280, L803.2200, L3100.5440, L500.4050, L300.3900, L3300.1200, L503.6075, L3100.6900, L501.6710, L3300.0100, L3890.6005, L500.4100, L300.4310, L503.6550, L3300.0700, L3400.3800, L3100.1850, L3400.0700, L100.0100 #### [facility] [address] [place], [id number] [phone] Neutrophils/100 WBC (Bld) 59.9 % Normal 47-70 [facility] Comment on above: Performed By: #### L 3000.0375, L504.2610, L501.4700, L503.5510, L501.9985, L101.9900, L800.1280, L803.2200, L3100.5440, L500.4050, L300.3900, L3300.1200, L503.6075, L3100.6900, L501.6710, L3300.0100, L3890.6005, L500.4100, L300.4310, L503.6550, L3300.0700, L3400.3800, L3100.1850, L3400.0700, L100.0100 #### [facility] [address] [place], [place], [id number] Nucleated RBC (Bld) [#/Vol] 0 10*3/uL Normal 0-5 [facility] Comment on above: Performed By: #### L 3000.0375, L504.2610, L501.4700, L503.5510, L501.9985, L101.9900, L800.1280, L803.2200, L3100.5440, L500.4050, L300.3900, L3300.1200, L503.6075, L3100.6900, L501.6710, L3300.0100, L3890.6005, L500.4100, L300.4310, L503.6550, L3300.0700, L3400.3800, L3100.1850, L3400.0700, L100.0100 #### [facility] [address] [place], [address] Platelet mean volume (Bld) [Entitic vol] 9.2 fL Normal 6.2-12.0 [facility] Comment on above: Performed By: #### L 3000.0375, L504.2610, L501.4700, L503.5510, L501.9985, L101.9900, L800.1280, L803.2200, L3100.5440, L500.4050, L300.3900, L3300.1200, L503.6075, L3100.6900, L501.6710, L3300.0100, L3890.6005, L500.4100, L300.4310, L503.6550, L3300.0700, L3400.3800, L3100.1850, L3400.0700, L100.0100 #### [facility] Laboratory [address] [place], [address] Platelets (Bld) [#/Vol] 242 10*3/uL Normal 150-450 [facility] Comment on above: Performed By: #### L 3000.0375, L504.2610, L501.4700, L503.5510, L501.9985, L101.9900, L800.1280, L803.2200, L3100.5440, L500.4050, L300.3900, L3300.1200, L503.6075, L3100.6900, L501.6710, L3300.0100, L3890.6005, L500.4100, L300.4310, L503.6550, L3300.0700, L3400.3800, L3100.1850, L3400.0700, L100.0100 #### [facility] [address] [place], [address] RBC (Bld) [#/Vol] 4.41 10*6/uL Normal 4.2-5.4 [facility] Comment on above: Performed By: #### L 3000.0375, L504.2610, L501.4700, L503.5510, L501.9985, L101.9900, L800.1280, L803.2200, L3100.5440, L500.4050, L300.3900, L3300.1200, L503.6075, L3100.6900, L501.6710, L3300.0100, L3890.6005, L500.4100, L300.4310, L503.6550, L3300.0700, L3400.3800, L3100.1850, L3400.0700, L100.0100 #### [facility] Laboratory [address] [place], [address] RDW SD 43.7 fl Normal 35.1-43.9 [facility] Comment on above: Performed By: #### L 3000.0375, L504.2610, L501.4700, L503.5510, L501.9985, L101.9900, L800.1280, L803.2200, L3100.5440, L500.4050, L300.3900, L3300.1200, L503.6075, L3100.6900, L501.6710, L3300.0100, L3890.6005, L500.4100, L300.4310, L503.6550, L3300.0700, L3400.3800, L3100.1850, L3400.0700, L100.0100 #### [facility] Laboratory [address] [place], [address] WBC (Bld) [#/Vol] 4.6 10*3/uL Normal 4.4-11.0 [facility] Comment on above: Performed By: #### L 3000.0375, L504.2610, L501.4700, L503.5510, L501.9985, L101.9900, L800.1280, L803.2200, L3100.5440, L500.4050, L300.3900, L3300.1200, L503.6075, L3100.6900, L501.6710, L3300.0100, L3890.6005, L500.4100, L300.4310, L503.6550, L3300.0700, L3400.3800, L3100.1850, L3400.0700, L100.0100 #### [facility] Laboratory [address] [place], [place], [id number] CRPon 03-25-2024 C-REACTIVE PROT < 2.90 Normal 0.0-3.0 [facility] Comment on above: Order Comment: 1 Result Comment: C-Re active Protein (CRP) provides useful information for the diagnosis, therapy and monitoring of inflammatory processes and associated diseases. For the evaluation of Relative Risk for Cardiovascular Disease, a High Sensitivity CRP (HSCRP) should be ordered. Performed By: #### L 3000.0375, L504.2610, L501.4700, L503.5510, L501.9985, L101.9900, L800.1280, L803.2200, L3100.5440, L500.4050, L300.3900, L3300.1200, L503.6075, L3100.6900, L501.6710, L3300.0100, L3890.6005, L500.4100, L300.4310, L503.6550, L3300.0700, L3400.3800, L3100.1850, L3400.0700, L100.0100 ####[facility] [address] [place], [place], [id number] Carbon dioxide measurementOr dered By: Elyssa Arguello on 03-25-2024 CO2 [Moles/Vol] 25.0 mmol/L 21.0-32.0 [facility] Centromere B antibody assayO rdered By: Elyssa Arguello on 03-25-2024 Centromere B Antibody <0.2 AI 0.0-0.9 [facility] CeruloplasminOrdered By: Liane Arguello on 11-07-2024 Ceruloplasmin 31.0 mg/dL 19.0-39.0 [facility] Chloride measurementOrdered By: Elyssa Arguello on 03-25-2024 Chloride [Moles/Vol] 110 mmol/L High 98-107 [facility] Chromatin antibody assayOrde red By: Elyssa Arguello on 03-25-2024 Antichromatin Antibodies 0.3 AI 0.0-0.9 [facility] Comprehensive Metabolic Prof ilon 03-25-2024 Albumin [Mass/Vol] 3.6 g/dL Normal 3.2-5.0 [facility] Comment on above: Order Comment: 1 Performed By: #### L 3000.0375, L504.2610, L501.4700, L503.5510, L501.9985, L101.9900, L800.1280, L803.2200, L3100.5440, L500.4050, L300.3900, L3300.1200, L503.6075, L3100.6900, L501.6710, L3300.0100, L3890.6005, L500.4100, L300.4310, L503.6550, L3300.0700, L3400.3800, L3100.1850, L3400.0700, L100.0100 ####[facility] [address] [place], [place], [address] Albumin/Globulin [Mass ratio] 1.2 {ratio} Normal 0.9-2.4 [facility] Comment on above: Order Comment: 1 Performed By: #### L 3000.0375, L504.2610, L501.4700, L503.5510, L501.9985, L101.9900, L800.1280, L803.2200, L3100.5440, L500.4050, L300.3900, L3300.1200, L503.6075, L3100.6900, L501.6710, L3300.0100, L3890.6005, L500.4100, L300.4310, L503.6550, L3300.0700, L3400.3800, L3100.1850, L3400.0700, L100.0100 ####[facility] [address] [place], [place], [id number] ALK P 184 U/L High 45-117 [facility] Comment on above: Order Comment: 1 Performed By: #### L 3000.0375, L504.2610, L501.4700, L503.5510, L501.9985, L101.9900, L800.1280, L803.2200, L3100.5440, L500.4050, L300.3900, L3300.1200, L503.6075, L3100.6900, L501.6710, L3300.0100, L3890.6005, L500.4100, L300.4310, L503.6550, L3300.0700, L3400.3800, L3100.1850, L3400.0700, L100.0100 ####[facility] [address] [facility] [place], [place], [id number] ALT [Catalytic activity/Vol] 11 U/L Low 13-56 [facility] Comment on above: Order Comment: 1 Performed By: #### L 3000.0375, L504.2610, L501.4700, L503.5510, L501.9985, L101.9900, L800.1280, L803.2200, L3100.5440, L500.4050, L300.3900, L3300.1200, L503.6075, L3100.6900, L501.6710, L3300.0100, L3890.6005, L500.4100, L300.4310, L503.6550, L3300.0700, L3400.3800, L3100.1850, L3400.0700, L100.0100 ####[facility] [address] [place], [place], [id number] AST [Catalytic activity/Vol] 18 U/L Normal 15-37 [facility] Comment on above: Order Comment: 1 Performed By: #### L 3000.0375, L504.2610, L501.4700, L503.5510, L501.9985, L101.9900, L800.1280, L803.2200, L3100.5440, L500.4050, L300.3900, L3300.1200, L503.6075, L3100.6900, L501.6710, L3300.0100, L3890.6005, L500.4100, L300.4310, L503.6550, L3300.0700, L3400.3800, L3100.1850, L3400.0700, L100.0100 ####[facility] [address] [place], [address] Bilirubin [Mass/Vol] 0.40 mg/dL Normal 0.20-1.00 [facility] Comment on above: Order Comment: 1 Result Comment: For patients on eltrombopag therapy, use of Dimension Bryant TBIL is not recommended. Performed By: #### L 3000.0375, L504.2610, L501.4700, L503.5510, L501.9985, L101.9900, L800.1280, L803.2200, L3100.5440, L500.4050, L300.3900, L3300.1200, L503.6075, L3100.6900, L501.6710, L3300.0100, L3890.6005, L500.4100, L300.4310, L503.6550, L3300.0700, L3400.3800, L3100.1850, L3400.0700, L100.0100 ####[facility] [address] [place], [place], [id number] BUN/CRE 21.8 RATIO High 10-20 [facility] Comment on above: Order Comment: 1 Performed By: #### L 3000.0375, L504.2610, L501.4700, L503.5510, L501.9985, L101.9900, L800.1280, L803.2200, L3100.5440, L500.4050, L300.3900, L3300.1200, L503.6075, L3100.6900, L501.6710, L3300.0100, L3890.6005, L500.4100, L300.4310, L503.6550, L3300.0700, L3400.3800, L3100.1850, L3400.0700, L100.0100 ####[facility] [address] [place], [place], [address] CA,Total 8.8 mg/dL Normal 8.5-10.1 [facility] Comment on above: Order Comment: 1 Performed By: #### L 3000.0375, L504.2610, L501.4700, L503.5510, L501.9985, L101.9900, L800.1280, L803.2200, L3100.5440, L500.4050, L300.3900, L3300.1200, L503.6075, L3100.6900, L501.6710, L3300.0100, L3890.6005, L500.4100, L300.4310, L503.6550, L3300.0700, L3400.3800, L3100.1850, L3400.0700, L100.0100 ####[facility] [address] [place], [place], [id number] Chloride [Moles/Vol] 110 mmol/L High 98-107 [facility] Comment on above: Order Comment: 1 Performed By: #### L 3000.0375, L504.2610, L501.4700, L503.5510, L501.9985, L101.9900, L800.1280, L803.2200, L3100.5440, L500.4050, L300.3900, L3300.1200, L503.6075, L3100.6900, L501.6710, L3300.0100, L3890.6005, L500.4100, L300.4310, L503.6550, L3300.0700, L3400.3800, L3100.1850, L3400.0700, L100.0100 ####[facility] [address] [facility] [place], [place], [id number] CO2 [Moles/Vol] 25.0 mmol/L Normal 21.0-32.0 [facility] Comment on above: Order Comment: 1 Performed By: #### L 3000.0375, L504.2610, L501.4700, L503.5510, L501.9985, L101.9900, L800.1280, L803.2200, L3100.5440, L500.4050, L300.3900, L3300.1200, L503.6075, L3100.6900, L501.6710, L3300.0100, L3890.6005, L500.4100, L300.4310, L503.6550, L3300.0700, L3400.3800, L3100.1850, L3400.0700, L100.0100 ####[facility] [address] [facility] [place], [place], [id number] Creatinine [Mass/Vol] 0.82 mg/dL Normal 0.55-1.02 [facility] Comment on above: Order Comment: 1 Result Comment: The validity of the calculated GFR GFRAA in patients over 70 years has not been determined. Clinical correlation is essential. Performed By: #### L 3000.0375, L504.2610, L501.4700, L503.5510, L501.9985, L101.9900, L800.1280, L803.2200, L3100.5440, L500.4050, L300.3900, L3300.1200, L503.6075, L3100.6900, L501.6710, L3300.0100, L3890.6005, L500.4100, L300.4310, L503.6550, L3300.0700, L3400.3800, L3100.1850, L3400.0700, L100.0100 ####[facility] [address] [place], [place], [id number] EST GFR - AA 91 mL/min Normal >60 [facility] Comment on above: Order Comment: 1 Result Comment: Afri can Sammarinese GFR Calc Performed By: #### L 3000.0375, L504.2610, L501.4700, L503.5510, L501.9985, L101.9900, L800.1280, L803.2200, L3100.5440, L500.4050, L300.3900, L3300.1200, L503.6075, L3100.6900, L501.6710, L3300.0100, L3890.6005, L500.4100, L300.4310, L503.6550, L3300.0700, L3400.3800, L3100.1850, L3400.0700, L100.0100 ####[facility] [address] [place], [place], [id number] GAP 5 Normal 5-15 [facility] Comment on above: Order Comment: 1 Performed By: #### L 3000.0375, L504.2610, L501.4700, L503.5510, L501.9985, L101.9900, L800.1280, L803.2200, L3100.5440, L500.4050, L300.3900, L3300.1200, L503.6075, L3100.6900, L501.6710, L3300.0100, L3890.6005, L500.4100, L300.4310, L503.6550, L3300.0700, L3400.3800, L3100.1850, L3400.0700, L100.0100 ####[facility] [address] [place], [place], [id number] GFR/1.73 sq M.predicted among non-blacks MDRD (S/P/Bld) [Vol rate/Area] 75 mL/min/{1.73_m2} Normal >60 [facility] Comment on above: Order Comment: 1 Result Comment: Non- GFR Calc Performed By: #### L 3000.0375, L504.2610, L501.4700, L503.5510, L501.9985, L101.9900, L800.1280, L803.2200, L3100.5440, L500.4050, L300.3900, L3300.1200, L503.6075, L3100.6900, L501.6710, L3300.0100, L3890.6005, L500.4100, L300.4310, L503.6550, L3300.0700, L3400.3800, L3100.1850, L3400.0700, L100.0100 ####[facility] [address], [address] Globulin (S) [Mass/Vol] 3.1 g/dL Normal 2.2-4.2 [facility] Comment on above: Order Comment: 1 Performed By: #### L 3000.0375, L504.2610, L501.4700, L503.5510, L501.9985, L101.9900, L800.1280, L803.2200, L3100.5440, L500.4050, L300.3900, L3300.1200, L503.6075, L3100.6900, L501.6710, L3300.0100, L3890.6005, L500.4100, L300.4310, L503.6550, L3300.0700, L3400.3800, L3100.1850, L3400.0700, L100.0100 ####[facility] [address], [address] Glucose [Mass/Vol] 140 mg/dL High 74-106 [facility] Comment on above: Order Comment: 1 Result Comment: Fast ing Glucose result greater than or equal to 126 mg/dL suggests DIABETES MELLITUS per A.D.A. criteria. Performed By: #### L 3000.0375, L504.2610, L501.4700, L503.5510, L501.9985, L101.9900, L800.1280, L803.2200, L3100.5440, L500.4050, L300.3900, L3300.1200, L503.6075, L3100.6900, L501.6710, L3300.0100, L3890.6005, L500.4100, L300.4310, L503.6550, L3300.0700, L3400.3800, L3100.1850, L3400.0700, L100.0100 ####[facility] [address] [facility] [place], [place], [id number] Potassium [Moles/Vol] 3.5 mmol/L Normal 3.5-5.1 [facility] Comment on above: Order Comment: 1 Performed By: #### L 3000.0375, L504.2610, L501.4700, L503.5510, L501.9985, L101.9900, L800.1280, L803.2200, L3100.5440, L500.4050, L300.3900, L3300.1200, L503.6075, L3100.6900, L501.6710, L3300.0100, L3890.6005, L500.4100, L300.4310, L503.6550, L3300.0700, L3400.3800, L3100.1850, L3400.0700, L100.0100 ####[facility] [address] [facility] [place], [address] Sodium [Moles/Vol] 140 mmol/L Normal 136-145 [facility] Comment on above: Order Comment: 1 Performed By: #### L 3000.0375, L504.2610, L501.4700, L503.5510, L501.9985, L101.9900, L800.1280, L803.2200, L3100.5440, L500.4050, L300.3900, L3300.1200, L503.6075, L3100.6900, L501.6710, L3300.0100, L3890.6005, L500.4100, L300.4310, L503.6550, L3300.0700, L3400.3800, L3100.1850, L3400.0700, L100.0100 ####[facility] [address] [facility] [place], [place], [id number] T PROT 6.7 g/dL Normal 6.4-8.2 [facility] Comment on above: Order Comment: 1 Performed By: #### L 3000.0375, L504.2610, L501.4700, L503.5510, L501.9985, L101.9900, L800.1280, L803.2200, L3100.5440, L500.4050, L300.3900, L3300.1200, L503.6075, L3100.6900, L501.6710, L3300.0100, L3890.6005, L500.4100, L300.4310, L503.6550, L3300.0700, L3400.3800, L3100.1850, L3400.0700, L100.0100 ####[facility] [address] [facility] [place], [place], [id number] Urea nitrogen [Mass/Vol] 18 mg/dL Normal 7-18 [facility] Comment on above: Order Comment: 1 Performed By: #### L 3000.0375, L504.2610, L501.4700, L503.5510, L501.9985, L101.9900, L800.1280, L803.2200, L3100.5440, L500.4050, L300.3900, L3300.1200, L503.6075, L3100.6900, L501.6710, L3300.0100, L3890.6005, L500.4100, L300.4310, L503.6550, L3300.0700, L3400.3800, L3100.1850, L3400.0700, L100.0100 ####[facility] [address] [place], [address] Copper, serumOrdered By: Liane Arguello on 03-25-2024 Serum Copper 120 ug/dL 80-158 [facility] Comment on above: Detection Limit = 5 DNA double strand Ab Qn (S)O rdered By: Elyssa Arguello on 03-25-2024 Anti-Double Strand DNA Antibody <1 IU/mL 0-9 [facility] Comment on above: Negative <5 Equivoca l 5 - 9 Positive >9 Eosinophil percentageOrdered By: Elyssa Arguello on 03-25-2024 Eosinophils/100 WBC (Bld) 5.7 % High 0-5 [facility] Erythrocyte Sed Rateon 03-25 SED RATE 7 mm/hr Normal 0-30 [facility] Comment on above: Performed By: #### L 3000.0375, L504.2610, L501.4700, L503.5510, L501.9985, L101.9900, L800.1280, L803.2200, L3100.5440, L500.4050, L300.3900, L3300.1200, L503.6075, L3100.6900, L501.6710, L3300.0100, L3890.6005, L500.4100, L300.4310, L503.6550, L3300.0700, L3400.3800, L3100.1850, L3400.0700, L100.0100 ####[facility] [id number] [place], [address] Erythrocyte distribution wid th ratioOrdered By: Elyssa Arguello on 03-25-2024 Erythrocyte distribution width (RBC) [Ratio] 13.4 % 11.6-14.6 [facility] Erythrocyte distribution wid th standard deviationOrdered By: Elyssa Arguello on 03-25-2024 Erythrocyte distribution width (RBC) [Entitic vol] 43.7 fL 35.1-43.9 [facility] Erythrocyte sedimentation ra teOrdered By: Elyssa Arguello on 03-25-2024 ESR (Bld) [Velocity] 7 mm/h 0-30 [facility] Estimated glomerular filtrat ion rate (GFR) AmericanOrdered By: Elyssa Arguello on 03-25-2024 Estimated GFR (MDRD) Amer 91 mL/min >60 [facility] Comment on above: GFR Calc Ferritinon 03-25-2024 Ferritin [Mass/Vol] 12 ng/mL Normal - [facility] Comment on above: Order Comment: 1 Performed By: #### L 3000.0375, L504.2610, L501.4700, L503.5510, L501.9985, L101.9900, L800.1280, L803.2200, L3100.5440, L500.4050, L300.3900, L3300.1200, L503.6075, L3100.6900, L501.6710, L3300.0100, L3890.6005, L500.4100, L300.4310, L503.6550, L3300.0700, L3400.3800, L3100.1850, L3400.0700, L100.0100 ####[facility] [id number] [place], [place], [id number] Ferritin measurementOrdered By: Elyssa Arguello on 03-25-2024 Ferritin [Mass/Vol] 12 ng/mL [facility] Glomerular filtration rate ( GFR) estimationOrdered By: Elyssa Arguello on 03-25-2024 Estimated GFR (MDRD) Non-Af Amer 75 mL/min >60 [facility] Comment on above: Non- GFR Calc Glucose measurementOrdered B y: Elyssa Arguello on 03-25-2024 Glucose [Mass/Vol] 140 mg/dL High 74-106 [facility] Comment on above: Fasting Glucose resu lt greater than or equal to 126 mg/dL suggests DIABETES MELLITUS per A.D.A. criteria. HBV surface Ag IA QlOrdered By: Elyssa Arguello on 03-25-2024 Hepatitis B Surface Antigen Negative Negative [facility] HIV - [facility] 03-25-2024 HIV Non-Reactive Normal Nonreactive [facility] Comment on above: Performed By: #### L 3000.0375, L504.2610, L501.4700, L503.5510, L501.9985, L101.9900, L800.1280, L803.2200, L3100.5440, L500.4050, L300.3900, L3300.1200, L503.6075, L3100.6900, L501.6710, L3300.0100, L3890.6005, L500.4100, L300.4310, L503.6550, L3300.0700, L3400.3800, L3100.1850, L3400.0700, L100.0100 ####[facility] [id number] [place], [place], [id number] HIV 1+2 Ab+HIV1 p24 Ag IA Ql Ordered By: Elyssa Arguello on 03-25-2024 HIV (1&2) Antibody Non-Reactive Nonreactive [facility] HaptoglobinOrdered By: Dafne Arguello on 03-25-2024 Haptoglobin 130 mg/dL 33-346 [facility] Hematocrit Auto (Bld) [Volum e fraction]Ordered By: Elyssa Arguello on 03-25-2024 Hematocrit (Bld) [Volume fraction] 39.3 % 37-47 [facility] Hemoglobin A1con 03-25-2024 HbA1c (Bld) [Mass fraction] 7.5 % High 3.8-5.6 [facility] Comment on above: Result Comment: Norm al < 5.7 % Prediabetic 5.7 - 6.4 % Diabetic >or= 6.5 % Please note range changes. Performed By: #### L 3000.0375, L504.2610, L501.4700, L503.5510, L501.9985, L101.9900, L800.1280, L803.2200, L3100.5440, L500.4050, L300.3900, L3300.1200, L503.6075, L3100.6900, L501.6710, L3300.0100, L3890.6005, L500.4100, L300.4310, L503.6550, L3300.0700, L3400.3800, L3100.1850, L3400.0700, L100.0100 ####[facility] [facility] [id number] [place], [address] Hemoglobin A1c percentageOrd ered By: Elyssa Arguello on 03-25-2024 HbA1c (Bld) [Mass fraction] 7.5 % High 3.8-5.6 [facility] Comment on above: Normal < 5.7 % Predi abetic 5.7 - 6.4 % Diabetic >or= 6.5 % Please note range changes. Hemoglobin measurementOrdere d By: Elyssa Arguello on 03-25-2024 Hemoglobin (Bld) [Mass/Vol] 12.2 g/dL 12.0-15.0 [facility] Hepatitis A virus IgM antibo dy assayOrdered By: Elyssa Arguello on 03-25-2024 Hepatitis A IgM Antibody Negative Negative [facility] Comment on above: A negative anti-HAV IgM result suggests no recent orcurrent HAV infection. Hepatitis B virus core IgM a ntibody assayOrdered By: Elyssa Arguello on 03-25-2024 Hepatitis B Core IgM Antibody Negative Negative [facility] Hepatitis C virus antibody a ssayOrdered By: Elyssa Arguello on 03-25-2024 Hepatitis C Antibody (EIA) Non-Reactive Non Reactive [facility] High density lipoprotein (HD L) measurementOrdered By: Elyssa Arguello on 03-25-2024 Cholesterol in HDL [Mass/Vol] 54 mg/dL >40 [facility] Comment on above: The drugs N-Acetylcy steine and Metamizole may falsely depress this assay. Reference Range HDL <40 mg/dL Low HDL Cholesterol HDL >or= 60 mg/dL High HDL Cholesterol Immature granulocytes/100 WB C Auto (Bld)Ordered By: Elyssa Arguello on 03-25-2024 Immature granulocytes/100 WBC (Bld) 0.400 % 0.0-0.9 [facility] Comment on above: IG% - Immature Granu locytes (promyelocytes, myelocytes and metamyelocytes) > 1% indicates that a LEFT SHIFT is Present. International normalized rat io (INR) calculationOrdered By: Elyssa Arguello on 03-25-2024 INR Coag (Bld) [Relative time] 0.9 {INR} [facility] Iron Binding Capacity,Totalo n 03-25-2024 TIBC 421 ug/dL Normal 250-450 [facility] Comment on above: Order Comment: 1 Performed By: #### L 3000.0375, L504.2610, L501.4700, L503.5510, L501.9985, L101.9900, L800.1280, L803.2200, L3100.5440, L500.4050, L300.3900, L3300.1200, L503.6075, L3100.6900, L501.6710, L3300.0100, L3890.6005, L500.4100, L300.4310, L503.6550, L3300.0700, L3400.3800, L3100.1850, L3400.0700, L100.0100 ####[facility] [address] [facility]. [place], [place], [id number] Suzanna-1 antibody assayOrdered B y: Elyssa Arguello on 03-25-2024 SUZANNA-1 Antibody <0.2 AI 0.0-0.9 [facility] Knee 3 Viewson 03-25-2024 Knee 3 Views [facility] Imaging Services [address], [place] [address] Knee 3 Views MR#: [id number] Acct: [id number] Name: LEAH JERRY Rep #: [id number] : 1965 F 58 From: Hugo Arndt MD PCP: KINGS Ruby, [employer] Status: REG CLI Study: Knee 3 Views Date of Exam: 03/25/24 Exam# [id number] Ordering Dr: Taylor Fields [employer] [id number] STUDY: X-RAY - RIGHT KNEE REASON FOR EXAM: Female, 58 years old. HX OF FALLING TECHNIQUE: 3 views of the right knee. COMPARISON: None. FINDINGS: Normal visualized distal femur. Normal visualized proximal tibia and fibula. Normal proximal tibiofibular articulation. There is no demonstrated fracture. There is mild degenerative arthrosis of the medial femorotibial compartment. Normal lateral femorotibial compartment. Normal patellofemoral articulation. There is a small volume joint effusion. There is prepatellar soft tissue swelling. RAD/Knee 3 Views IMPRESSION: Mild degenerative arthrosis of the medial femorotibial compartment. Small joint effusion. Prepatellar soft tissue swelling. No demonstrated fracture. Electronically Signed: Hugo Arndt MD at 10:23 EST Reading Location ID and State: [address] [place] [address] , Service support , CC: [facility] JHONY Fields Administrative Support Specialist: Signed Normal [facility] LDHon 03-25-2024 LDH 222 U/L Normal 84-246 [facility] Comment on above: Order Comment: 1 Performed By: #### L 3000.0375, L504.2610, L501.4700, L503.5510, L501.9985, L101.9900, L800.1280, L803.2200, L3100.5440, L500.4050, L300.3900, L3300.1200, L503.6075, L3100.6900, L501.6710, L3300.0100, L3890.6005, L500.4100, L300.4310, L503.6550, L3300.0700, L3400.3800, L3100.1850, L3400.0700, L100.0100 ####[facility] [address] [place], [place], [id number] Laboratory - Chemistry and C hemistry - challengeOrdered By: Elyssa Arguello on 03-25-2024 AST [Catalytic activity/Vol] 18 U/L 15-37 [facility] Lactate dehydrogenase (LDH) measurementOrdered By: Elyssa Arguello on 03-25-2024 LDH [Catalytic activity/Vol] 222 U/L 84-246 [facility] Lipid Profileon 03-25-2024 Cholesterol [Mass/Vol] 177 mg/dL Normal 200 [facility] Comment on above: Order Comment: 1 Result Comment: <200 mg/dL Desirable 200-240 mg/dL Borderline >240 mg/dL High Risk Performed By: #### L 3000.0375, L504.2610, L501.4700, L503.5510, L501.9985, L101.9900, L800.1280, L803.2200, L3100.5440, L500.4050, L300.3900, L3300.1200, L503.6075, L3100.6900, L501.6710, L3300.0100, L3890.6005, L500.4100, L300.4310, L503.6550, L3300.0700, L3400.3800, L3100.1850, L3400.0700, L100.0100 ####[facility] [address] [place], [place], [address] Cholesterol in HDL [Mass/Vol] 54 mg/dL Normal [facility] Comment on above: Order Comment: 1 Result Comment: The drugs N-Acetylcysteine and Metamizole may falsely depress this assay. Reference Range HDL <40 mg/dL Low HDL Cholesterol HDL >or= 60 mg/dL High HDL Cholesterol Performed By: #### L 3000.0375, L504.2610, L501.4700, L503.5510, L501.9985, L101.9900, L800.1280, L803.2200, L3100.5440, L500.4050, L300.3900, L3300.1200, L503.6075, L3100.6900, L501.6710, L3300.0100, L3890.6005, L500.4100, L300.4310, L503.6550, L3300.0700, L3400.3800, L3100.1850, L3400.0700, L100.0100 ####[facility] [address] [place], [address] Cholesterol in LDL [Mass/Vol] 98 mg/dL Normal 0-130 [facility] Comment on above: Order Comment: 1 Performed By: #### L 3000.0375, L504.2610, L501.4700, L503.5510, L501.9985, L101.9900, L800.1280, L803.2200, L3100.5440, L500.4050, L300.3900, L3300.1200, L503.6075, L3100.6900, L501.6710, L3300.0100, L3890.6005, L500.4100, L300.4310, L503.6550, L3300.0700, L3400.3800, L3100.1850, L3400.0700, L100.0100 ####[facility] [address] [place], [place], [id number] Cholesterol in VLDL [Mass/Vol] 25 mg/dL Normal 5-40 [facility] Comment on above: Order Comment: 1 Performed By: #### L 3000.0375, L504.2610, L501.4700, L503.5510, L501.9985, L101.9900, L800.1280, L803.2200, L3100.5440, L500.4050, L300.3900, L3300.1200, L503.6075, L3100.6900, L501.6710, L3300.0100, L3890.6005, L500.4100, L300.4310, L503.6550, L3300.0700, L3400.3800, L3100.1850, L3400.0700, L100.0100 ####[facility] [address] [facility]. [place], [place], [address] Triglyceride [Mass/Vol] 123 mg/dL Normal [facility] Comment on above: Order Comment: 1 Result Comment: The drugs N-Acetylcysteine and Metamizole may falsely depress this assay. Serum Triglycerides Reference Interval Normal <150 mg/dL Borderline high 150 - 199 mg/dL High 200 - 499 mg/dL Very High > or = 500 mg/dL Performed By: #### L 3000.0375, L504.2610, L501.4700, L503.5510, L501.9985, L101.9900, L800.1280, L803.2200, L3100.5440, L500.4050, L300.3900, L3300.1200, L503.6075, L3100.6900, L501.6710, L3300.0100, L3890.6005, L500.4100, L300.4310, L503.6550, L3300.0700, L3400.3800, L3100.1850, L3400.0700, L100.0100 ####[facility] [address] [facility]. [place], [place], [id number] Low density lipoprotein (LDL ) cholesterol measurementOrdered By: Elyssa Arguello on 03-25-2024 Cholesterol in LDL [Mass/Vol] 98 mg/dL 0-130 [facility] Lymphocytes Auto (Unsp spec) [#/Vol]Ordered By: Elyssa Arguello on 03-25-2024 Lymphocytes (Bld) [#/Vol] 1.17 10*3/uL 0.83-4.51 [facility] Lymphocytes/100 WBC Auto (Un sp spec)Ordered By: Elyssa Arguello on 03-25-2024 Lymphocytes/100 WBC (Bld) 25.5 % 19-41 [facility] MCV (mean corpuscular volume ) determinationOrdered By: Elyssa Arguello on 03-25-2024 MCV (RBC) [Entitic vol] 89.1 fL 81-99 [facility] Mean corpuscular hemoglobin (MCH) determinationOrdered By: Elyssa Arguello on 03-25-2024 MCH (RBC) [Entitic mass] 27.7 pg 27.0-32.0 [facility] Mean corpuscular hemoglobin concentration (MCHC) determinationOrdered By: Elyssa Arguello on 03-25-2024 MCHC (RBC) [Mass/Vol] 31.0 g/dL Low 32-36 [facility] Mean platelet volume determi nationOrdered By: Elyssa Arguello on 03-25-2024 Platelet mean volume (Bld) [Entitic vol] 9.2 fL 6.2-12.0 [facility] Microalbumin,Random Urineon 03-25-2024 MICROALBUMIN,UR < 5.0 Normal NO RANGE EST. [facility] Comment on above: Performed By: #### L 502.0500, L501.9520 #### [facility] Laboratory [address] [place], [address] Mitochondria Ab Ql (S)Ordere d By: Elyssa Arguello on 03-25-2024 Anti-Mitochondrial Antibody <20.0 Units 0.0-20.0 [facility] Comment on above: Negative 0.0 - 20.0 Equivocal 20.1 - 24.9 Positive >24.9Mitochondrial (M2) Antibodies are found in 90-96% ofpatients with primary biliary cirrhosis.Performed at: [facility] [address] [id number] Director: Luis Zuñiga PhD, Phone: [phone] Monocyte percentageOrdered B y: Elyssa Arguello on 03-25-2024 Monocytes/100 WBC (Bld) 7.8 % 0-10 [facility] Neutrophil cytoplasmic Ab.cl assic Qn (S)Ordered By: Elyssa Arguello on 03-25-2024 Cytoplasmic ANCA (c-ANCA) Antibody <1:20 titer Neg:<1:20 [facility] Neutrophil cytoplasmic Ab.pe rinuclear IF (S) [Titer]Ordered By: Elyssa Arguello on 03-25-2024 Perinuclear ANCA (p-ANCA) Antibody <1:20 titer Neg:<1:20 [facility] Comment on above: The presence of posi tive fluorescence exhibiting P-ANCA orC-ANCA patterns alone is not specific for the diagnosis ofWegener's Granulomatosis (WG) or microscopic polyangiitis.Decisions about treatment should not be based solely onANCA IFA results. The International ANCA Group Consensusrecommends follow up testing of positive sera with both FL-3 and MPO-ANCA enzyme immunoassays. As many as 5% serumsamples are positive only by EIA. Ref. AM J Clin Ylirzu5860;111:507-513. Neutrophil percentageOrdered By: Elyssa Arguello on 03-25-2024 Neutrophils/100 WBC (Bld) 59.9 % 47-70 [facility] No Panel InformationOrdered By: Elyssa Arguello on 03-25-2024 Hepatitis C Antibody Comment Comment . [facility] Comment on above: Not infected with HC V unless early or acute infection issuspected (which may be delayed in an immunocompromisedindividual), or other evidence exists to indicate HCVinfection. Nucleated red blood cell per centageOrdered By: Elyssa Arguello on 03-25-2024 Nucleated RBC/100 WBC (Bld) [Ratio] 0 % 0-5 [facility] Partial Thromboplast Timeon 03-25-2024 aPTT Coag (Bld) [Time] 29.6 s Normal 24.1-36.2 [facility] Comment on above: Performed By: #### L 3000.0375, L504.2610, L501.4700, L503.5510, L501.9985, L101.9900, L800.1280, L803.2200, L3100.5440, L500.4050, L300.3900, L3300.1200, L503.6075, L3100.6900, L501.6710, L3300.0100, L3890.6005, L500.4100, L300.4310, L503.6550, L3300.0700, L3400.3800, L3100.1850, L3400.0700, L100.0100 ####[facility] [address] [place], [address] Platelet countOrdered By: Della Arguello on 03-25-2024 Platelets (Bld) [#/Vol] 242 10*3/uL 150-450 [facility] Potassium measurementOrdered By: Elyssa Arguello on 03-25-2024 Potassium [Moles/Vol] 3.5 mmol/L 3.5-5.1 [facility] Prothrombin Time w/INRon INR Coag (PPP) [Relative time] 0.9 {INR} Normal [facility] Comment on above: Performed By: #### L 3000.0375, L504.2610, L501.4700, L503.5510, L501.9985, L101.9900, L800.1280, L803.2200, L3100.5440, L500.4050, L300.3900, L3300.1200, L503.6075, L3100.6900, L501.6710, L3300.0100, L3890.6005, L500.4100, L300.4310, L503.6550, L3300.0700, L3400.3800, L3100.1850, L3400.0700, L100.0100 ####[facility] [address] [place], [address] PT Coag (PPP) [Time] 12.4 s Normal 11.7-14.9 [facility] Comment on above: Performed By: #### L 3000.0375, L504.2610, L501.4700, L503.5510, L501.9985, L101.9900, L800.1280, L803.2200, L3100.5440, L500.4050, L300.3900, L3300.1200, L503.6075, L3100.6900, L501.6710, L3300.0100, L3890.6005, L500.4100, L300.4310, L503.6550, L3300.0700, L3400.3800, L3100.1850, L3400.0700, L100.0100 ####[facility] [address] [place], [address] Prothrombin timeOrdered By: Elyssa Arguello on 03-25-2024 PT Coag (PPP) [Time] 12.4 s 11.7-14.9 [facility] RBC Auto (Bld) [#/Vol]Ordere d By: Elyssa Arguello on 03-25-2024 RBC (Bld) [#/Vol] 4.41 10*6/uL 4.2-5.4 [facility] RIGGER CHIEF abOrdered By: Elyssa cottosov on 03-25-2024 RIGGER CHIEF Antibody <0.2 AI 0.0-0.9 [facility] Random urine microalbumin me asurementOrdered By: [facility] Taylor Fields on 03-25-2024 Urine Random Microalbumin < 5.0 mg/L NO RANGE EST. [facility] SCL-70 extractable nuclear A b Qn (S)Ordered By: Elyssa Arguello on 03-25-2024 Scl-70 (Scleroderma) Antibody <0.2 AI 0.0-0.9 [facility] SS-A IgG antibody assayOrder ed By: Elyssa Arguello on 03-25-2024 SS-A/Ro IgG Antibody 2.4 AI High 0.0-0.9 [facility] SS-B IgG antibody assayOrder ed By: Elyssa Arguello on 03-25-2024 SS-B/La IgG Antibody < 0.2 AI 0.0-0.9 [facility] Serum anion gap measurementO rdered By: Elyssa Arguello on 03-25-2024 Anion gap [Moles/Vol] 5 mmol/L 5-15 [facility] Serum globulin measurementOr dered By: Elyssa Arguello on 03-25-2024 Globulin (S) [Mass/Vol] 3.1 g/dL 2.2-4.2 [facility] Serum or plasma alanine lucero otransferase (ALT) measurementOrdered By: Elyssa Arguello on 03-25-2024 ALT [Catalytic activity/Vol] 11 U/L Low 13-56 [facility] Serum or plasma albumin kallie urement (mass/volume)Ordered By: Elyssa Arguello on 11-07-2024 Albumin [Mass/Vol] 3.6 g/dL 3.2-5.0 [facility] Serum or plasma alkaline nayeli sphatase measurementOrdered By: Elyssa Arguello on 03-25-2024 ALP [Catalytic activity/Vol] 184 U/L High 45-117 [facility] Serum or plasma angiotensin converting enzyme measurement (enzymatic activity/volume)Ordered By: Elyssa Arguello on 03-25-2024 Angiotensin converting enzyme [Catalytic activity/Vol] 55 U/L 14-82 [facility] Serum or plasma calcium kallie urement (mass/volume)Ordered By: Elyssa Arguello on 03-25-2024 Calcium [Mass/Vol] 8.8 mg/dL 8.5-10.1 [facility] Serum or plasma cholesterol measurement (mass/volume)Ordered By: Elyssa Arguello on 03-25-2024 Cholesterol [Mass/Vol] 177 mg/dL <200 [facility] Comment on above: <200 mg/dL Desirable 200-240 mg/dL Borderline >240 mg/dL High Risk Serum or plasma creatinine m easurement (mass/volume)Ordered By: Elyssa Arguello on 03-25-2024 Creatinine [Mass/Vol] 0.82 mg/dL 0.55-1.02 [facility] Comment on above: The validity of the calculated GFR & GFRAA in patients over 70 years has not been determined. Clinical correlation is essential. Serum or plasma urea nitroge n measurement (mass/volume)Ordered By: Elyssa Arguello on 03-25-2024 Urea nitrogen [Mass/Vol] 18 mg/dL 7-18 [facility] Shoulder min 2 Viewson 03-25 Shoulder min [address] [facility] Imaging Services [address], [place] [address] Shoulder min 2 Views MR#: [id number] Acct: [id number] Name: LEAH JERRY Rep #: [id number] : 1965 F 58 From: Hugo Arndt MD PCP: KINGS Ruby, [employer] Status: REG CLI Study: Shoulder min 2 Views Date of Exam: 03/25/24 Exam# [id number] Ordering Dr: Taylor Fields [employer] [id number] STUDY: X-RAY - RIGHT SHOULDER REASON FOR EXAM: Female, 58 years old. HX OF FALLING TECHNIQUE: 4 views of the right shoulder. COMPARISON: None. FINDINGS: Normal glenohumeral articulation. There is hypertrophic osteoarthrosis of the acromioclavicular joint with inferior osseous spur formation. Normal acromion. Normal humeral head and visualized proximal humerus. The soft tissue structures are unremarkable. There is no demonstrated fracture. Normal visualized pulmonary apex. RAD/Shoulder min 2 Views IMPRESSION: Hypertrophic osteoarthrosis of the acromioclavicular joint. No demonstrated fracture. Electronically Signed: Hugo Arndt MD at 10:21 [facility] Reading Location ID and State: [facility] / MD , Service support , CC: [facility] CHAR-Yajaira Fields Administrative Support Specialist: Signed Normal [facility] [place] antibody assayOrdered By: Elyssa Arguello on 03-25-2024 SM Antibody <0.2 AI 0.0-0.9 [facility] Sodium levelOrdered By: Emily Arguello on 03-25-2024 Sodium [Moles/Vol] 140 mmol/L 136-145 [facility] TIBCOrdered By: Elyssa Jeff asov on 03-25-2024 Total Iron Binding Capacity 421 ug/dL 250-450 [facility] TSH QnOrdered By: [facility] Serene Fields on 03-25-2024 Thyroid Stimulating Hormone (TSH) 0.489 uIU/mL 0.358-3.740 [facility] Thyroid Stim Hormone (TSH)on 03-25-2024 TSH 0.489 uIU/mL Normal 0.358-3.740 [facility] Comment on above: Performed By: #### L 502.0500, L501.9520 #### [facility] Laboratory [address] [place], [place], [address] Tibia Fibula 2 Viewson 03-25 Tibia Fibula [address] [facility] Imaging Services [address] [place], [place] [address] Tibia Fibula 2 Views MR#: [id number] Acct: [id number] Name: LEAH JERRY Rep #: [id number] : 1965 F 58 From: Hugo Arndt MD PCP: KINGS Ruby, [employer] Status: REG CLI Study: Tibia Fibula 2 Views Date of Exam: 03/25/24 Exam# [id number] Ordering Dr: Taylor Fields [employer] [id number] STUDY: X-RAY - RIGHT TIBIA AND FIBULA REASON FOR EXAM: Female, 58 years old. HX OF FALLING TECHNIQUE: 2 views of the right tibia and fibula were obtained. COMPARISON: None. FINDINGS: Normal visualized tibia. Normal visualized fibula. There is no demonstrated acute fracture. The soft tissue structures are unremarkable. RAD/Tibia Fibula 2 Views IMPRESSION: Normal x-ray examination of the right tibia and fibula. Electronically Signed: Hugo Arndt MD at 10:19 EST , CC: [facility] [employer] Taylor Fields Administrative Support Specialist: Signed Normal [facility] Total proteinOrdered By: Liane Arguello on 03-25-2024 Protein [Mass/Vol] 6.7 g/dL 6.4-8.2 [facility] TransferrinOrdered By: Dafne Arguello on 03-25-2024 Transferrin [Mass/Vol] 308 mg/dL 192-364 [facility] Comment on above: Performed at: - [facility] [id number] [place], [place] [id number] Director: Luis Zuñiga PhD, Phone: [phone] at: [facility] [address] [id number] Director: Reina Wiggins MD, Phone: [phone] Triglycerides measurementOrd ered By: Elyssa Arguello on 03-25-2024 Triglyceride [Mass/Vol] 123 mg/dL <199 [facility] Comment on above: The drugs N-Acetylcy steine and Metamizole may falsely depress this assay.Serum Triglycerides Reference Interval Normal <150 mg/dL Borderline high 150 - 199 mg/dL High 200 - 499 mg/dL Very High > or = 500 mg/dL Venous blood ammonia measure mentOrdered By: Elyssa Arguello on 03-25-2024 Ammonia (P) [Moles/Vol] 19.0 umol/L 11-32 [facility] Very low density lipoprotein (VLDL) cholesterol measurementOrdered By: Elyssa Arguello on 03-25-2024 VLDL Cholesterol 25 mg/dL -40 [facility] White blood cell (WBC) count Ordered By: Elyssa Arguello on 03-25-2024 WBC (Bld) [#/Vol] 4.6 10*3/uL 4.4-11.0 [facility] aPTT Coag (PPP) [Time]Ordere d By: Elyssa Arguello on 03-25-2024 aPTT Coag (Bld) [Time] 29.6 s 24.1-36.2 [facility] Gastroenterology Visit Repor ton 03-12-2024 Gastroenterology Visit Report [facility] [address] [place] [address] OFFICE VISIT Date of Service: 03/12/24 MR#: [id number] Acct: [id number] Name: JERRYLEAH Rep #: [id number] : 1965 Provider: LILLY Pulido Age/Sex: 58/F Location: [facility] [place] Status: Signed Intake Vital Signs 10/28/23 14:22 03/01/24 13:13 Height 5 ft 1 in 5 ft 1 in Intake Visit Reasons: Mass in stomach Chief Complaint: estblishment Allergies Tetracyclines Allergy (Intermediate, Verified 03/01/24 13:13) Rash aminophylline Allergy (Verified 03/01/24 13:13) Swelling amphetamine (From Adderall) Allergy (Verified 03/01/24 13:13) Other dextroamphetamine (From Adderall) Allergy (Verified 03/01/24 13:13) Other dulaglutide (From Trulicity) Allergy (Verified 03/01/24 13:13) Vomiting Iodinated Contrast Media (CT) Allergy (Verified 03/01/24 13:13) Swelling iodine Allergy (Verified 03/01/24 13:13) Swelling povidone-iodine (From Betadine) Allergy (Verified 03/01/24 13:13) Swelling shellfish derived Allergy (Verified 03/01/24 13:13) Swelling Sulfa (Sulfonamide Antibiotics) Allergy (Verified 03/01/24 13:13) Swelling buspirone (From BuSpar) Adverse Reaction (Intermediate, Verified 03/01/24 13:13) Other allantoin (From Blistex) Adverse Reaction (Verified 03/01/24 13:13) Swelling aloe vera (From Blistex) Adverse Reaction (Verified 03/01/24 13:13) Swelling camphor (From Blistex) Adverse Reaction (Verified 03/01/24 13:13) Swelling chamomile flower (From Blistex) Adverse Reaction (Verified 03/01/24 13:13) Swelling dimethicone (From Blistex) Adverse Reaction (Verified 03/01/24 13:13) Swelling herbal complex no.57 (From Blistex) Adverse Reaction (Verified 03/01/24 13:13) Swelling homosalate (From Blistex) Adverse Reaction (Verified 03/01/24 13:13) Swelling menthol (From Blistex) Adverse Reaction (Verified 03/01/24 13:13) Swelling meradimate (From Blistex) Adverse Reaction (Verified 03/01/24 13:13) Swelling octinoxate (From Blistex) Adverse Reaction (Verified 03/01/24 13:13) Swelling octyl salicylate (From Blistex) Adverse Reaction (Verified 03/01/24 13:13) Swelling oxybenzone (From Blistex) Adverse Reaction (Verified 03/01/24 13:13) Swelling padimate O (From Blistex) Adverse Reaction (Verified 03/01/24 13:13) Swelling petrolatum,hydrophilic (From Blistex) Adverse Reaction (Verified 03/01/24 13:13) Swelling phenol (From Blistex) Adverse Reaction (Verified 03/01/24 13:13) Swelling tetracycline Adverse Reaction (Verified 03/01/24 13:13) Rash Medications ???Medication ???Instructions ???Recorded ???Confirmed ???Type trazodone 150 mg tablet 150 mg PO QHS anxiety 07/15/21 03/12/24 History albuterol sulfate 90 mcg/actuation 2 puff inhalation Q6H PRN 07/16/21 03/12/24 Rx aerosol inhaler shortness of breath or wheezing #8.5 grams ibuprofen 500 mg PO Q6H PRN PRN Pain 03/06/22 03/12/24 History hydroxyzine HCl 25 mg tablet 25 mg PO TID anxiety 11/04/22 03/12/24 History cetirizine 10 mg tablet 10 mg PO BID 03/06/23 03/12/24 History fluticasone fur. 200 mcg-umeclid 1 inh inhalation Q24H 04/08/23 03/12/24 History 62.5 mcg-vilant 25 mcg inhalat.powder (Trelegy Ellipta) lanolin alcohols-mineral 1 applic topical DAILY 04/08/23 03/12/24 History oil-w.petrolatum-ceresin topical cream (Minerin Creme topical) sertraline 50 mg tablet 50 mg PO DAILY 04/08/23 03/12/24 History acetaminophen 650 mg 1,300 mg PO Q12H 06/23/23 03/12/24 History tablet,extended release (Tylenol Arthritis Pain) hydroxyzine HCl 25 mg tablet 50 mg PO QHS 06/23/23 03/12/24 History dapagliflozin propanediol 10 mg 10 mg PO DAILY 10/01/23 03/12/24 History tablet (Farxiga) omeprazole 40 mg capsule,delayed 40 mg PO BID 10/01/23 03/12/24 History release triamcinolone acetonide 0.1 % 1 applic topical BID 10/01/23 03/12/24 History topical cream atorvastatin 20 mg tablet 20 mg PO QHS 10/28/23 03/12/24 History prednisone 20 mg tablet 20 mg PO BID #10 tabs 03/01/24 03/12/24 Rx dicyclomine 20 mg tablet 20 mg PO BID PRN abdominal pain 03/12/24 03/12/24 Rx #30 tabs gabapentin 100 mg capsule 100 mg PO TID 03/12/24 03/12/24 History metformin 500 mg tablet 500 mg PO BID 03/12/24 03/12/24 History ondansetron 4 mg disintegrating 4 mg PO Q8H #20 tabs 03/12/24 03/12/24 Rx tablet propranolol 20 mg tablet 20 mg PO BID 03/12/24 03/12/24 History PFSH Medical History Psoriasis Wears glasses Arthritis Difficulty swallowing Gastric reflux History of cellulitis Bilateral carpal tunnel syndrome Anxiety Degenerative disc disease Fibromyalgia MRSA (methicillin resistant staph aureus) culture positive Hx of intestinal obstruction History of diverticulitis Bipolar 1 disorder Depress (more content not included)... Normal [facility] Emergency Department Summary on 03-01-2024 Emergency Department Summary [facility] Medical Records Department [address] [place] [address] Emergency Department Summary 03/01/24 MR#: [id number] Acct: [id number] Name: LEAH JERRY Rep #: [id number] : 1965 58 From: Gilda Drake DO PCP: [facility] Status:DEP ER Location: ED HPI History of Present Illness Chief Complaint: Rash Detail of Chief Complaint: Rash Informant: patient Narrative Narrative: Patient presents the emergency department complaint of rash that she has had for 4 years. Patient is been seen by dermatology for this. In the past it was thought she had psoriasis and then recently was told it was hives. She is been taking Zyrtec. She has been taking topical creams for the rash and it is not getting better. She has an appointment to see a new prison librarian in a month. The rash is very itchy. She denies any new soaps or detergents or perfumes or other allergens. No history of lymphoma or blood cancers. She states she has had blood work recently that was normal. [facility] Medical History Psoriasis Wears glasses Arthritis Difficulty swallowing Gastric reflux History of cellulitis Bilateral carpal tunnel syndrome Anxiety Degenerative disc disease Fibromyalgia MRSA (methicillin resistant staph aureus) culture positive Hx of intestinal obstruction History of diverticulitis Bipolar 1 disorder Depression Diabetes Asthma PTSD (post-traumatic stress disorder) Home Medications ???Medication ???Instructions ???Recorded ???Last Taken ???Type trazodone 150 mg tablet 150 mg PO QHS anxiety 07/15/21 08/10/23 History albuterol sulfate 90 mcg/actuation 2 puff inhalation Q6H PRN 07/16/21 08/08/23 Rx aerosol inhaler shortness of breath or wheezing #8.5 grams ibuprofen 500 mg PO Q6H PRN PRN Pain 03/06/22 08/11/23 History hydroxyzine HCl 25 mg tablet 25 mg PO TID anxiety 11/04/22 08/12/23 07:30 History atorvastatin 40 mg tablet 20 mg PO QHS 11/25/22 08/11/23 History cetirizine 10 mg tablet 10 mg PO BID 03/06/23 08/11/23 History albuterol sulfate 2.5 mg/3 mL 2.5 mg inhalation Q4H PRN 04/08/23 Unknown History (0.083 %) solution for nebulization shortness of breath or wheezing fluticasone fur. 200 mcg-umeclid 1 inh inhalation Q24H 04/08/23 08/12/23 07:30 History 62.5 mcg-vilant 25 mcg inhalat.powder (Trelegy Ellipta) lanolin alcohols-mineral 1 applic topical DAILY 04/08/23 08/10/23 History oil-w.petrolatum-ceresin topical cream (Minerin Creme topical) sertraline 50 mg tablet 50 mg PO DAILY 04/08/23 08/11/23 History acetaminophen 650 mg 1,300 mg PO Q12H 06/23/23 08/09/23 History tablet,extended release (Tylenol Arthritis Pain) hydroxyzine HCl 25 mg tablet 50 mg PO QHS 06/23/23 08/11/23 History ondansetron 4 mg disintegrating 4 mg PO Q6H PRN nausea and 07/24/23 08/11/23 Rx tablet vomiting #12 tabs dulaglutide 3 mg/0.5 mL 3 mg subcut MATA 08/06/23 08/10/23 History subcutaneous pen injector (Trulicity) sucralfate 1 gram tablet (Carafate) 1 g PO BID #28 tabs 08/13/23 Unknown Rx ondansetron 4 mg disintegrating 4 mg PO Q4H #7 tabs 08/18/23 Unknown Rx tablet pantoprazole 40 mg tablet,delayed 40 mg PO DAILY #30 tabs 08/19/23 Unknown Rx release amoxicillin 875 mg-potassium 1 tab PO BID 10/01/23 Unknown History clavulanate 125 mg tablet clindamycin HCl 300 mg capsule 300 mg PO Q6H #28 CAPSULES 10/01/23 Unknown Rx (Cleocin HCl) dapagliflozin propanediol 10 mg 10 mg PO DAILY 10/01/23 Unknown History tablet (Farxiga) fluticasone propionate 50 2 spray intranasal DAILY 10/01/23 Unknown History mcg/actuation nasal spray,suspension ketoconazole 2 % shampoo 1 applic topical 10/01/23 Unknown History lisinopril 10 mg tablet 10 mg PO DAILY 10/01/23 Unknown History omeprazole 40 mg capsule,delayed 40 mg PO BID 10/01/23 Unknown History release triamcinolone acetonide 0.1 % applic topical BID 10/01/23 Unknown History topical cream ondansetron 4 mg disintegrating 4 mg PO Q6H PRN nausea and 10/06/23 Unknown Rx tablet vomiting #20 tabs atorvastatin 20 mg tablet 20 mg PO QHS 10/28/23 Unknown History clindamycin HCl 300 mg capsule 300 mg PO Q6H #40 CAPSULES 10/28/23 Unknown Rx (Cleocin HCl) hydrocodone-acetaminophen 5-325mg 1 tab PO Q6H PRN PRN Pain 3 days 10/28/23 Unknown Rx 5mg-325mg #10 TABLETS mupirocin 2 % topical ointment 1 applic topical TID PRN Acne #1 10/28/23 Unknown Rx tube prednisone 20 mg tablet 20 mg PO BID #10 tabs 03/01/24 Unknown Rx Allergy/AdvReac Type Severity Reaction Status Date / Time Tetracyclines Allergy Intermediate Rash Verified 03/01/24 13:13 aminophylline Allergy Swelling Verified 03/01/24 13:13 amphetamine (From Adderall) Allergy Other Verified 03/01/24 13:13 de (more content not included)... Normal [facility] Basic Metabolic Profile (BMP )on 12-09-2023 BUN/CRE 9.1 RATIO Low 10-20 [facility] Comment on above: Performed By: #### L 501.080 #### [facility] Laboratory [address] [place], [address] CA,Total 9.2 mg/dL Normal 8.5-10.1 [facility] Comment on above: Performed By: #### L 501.080 #### [facility] [address] [place], [address] Chloride [Moles/Vol] 110 mmol/L High 98-107 [facility] Comment on above: Performed By: #### L 501.080 #### [facility] [address] [place], [address] CO2 [Moles/Vol] 24.0 mmol/L Normal 21.0-32.0 [facility] Comment on above: Performed By: #### L 501.080 #### [facility] [address] [place], [address] Creatinine [Mass/Vol] 0.88 mg/dL Normal 0.55-1.02 [facility] Comment on above: Result Comment: The validity of the calculated GFR GFRAA in patients over 70 years has not been determined. Clinical correlation is essential. Performed By: #### L 501.080 #### [facility] [address] [place], [address] EST GFR - AA 84 mL/min Normal >60 [facility] Comment on above: Result Comment: Afri can [place] GFR Calc Performed By: #### L 501.080 #### [facility] [address] [place], [address] GAP 8 Normal 5-15 [facility] Comment on above: Performed By: #### L 501.080 #### [facility] [address] [place], [address] GFR/1.73 sq M.predicted among non-blacks MDRD (S/P/Bld) [Vol rate/Area] 70 mL/min/{1.73_m2} Normal >60 [facility] Comment on above: Result Comment: Non- GFR Calc Performed By: #### L 501.080 #### [facility] [address] [place], [address] Glucose [Mass/Vol] 281 mg/dL High 74-106 [facility] Comment on above: Result Comment: Gluc ose result greater than or equal to 200 mg/dL suggests DIABETES MELLITUS per A.D.A. criteria. Performed By: #### L 501.080 #### [facility] [address] [place], [address] Potassium [Moles/Vol] 3.7 mmol/L Normal 3.5-5.1 [facility] Comment on above: Performed By: #### L 501.080 #### [facility] [address] [place], [address] Sodium [Moles/Vol] 142 mmol/L Normal 136-145 [facility] Comment on above: Performed By: #### L 501.080 #### [facility] [address] [place], [address] Urea nitrogen [Mass/Vol] 8 mg/dL Normal 7-18 [facility] Comment on above: Performed By: #### L 501.080 #### [facility] [address] [place], [address] Dennis 10-14-2023 CNPN Telephone (GASTMN) -- ROSALINOLEAH R ([id number]) 1965 F Date Time Provider Department 10/14/23 SALOMON ARELLANO GASTMN During your visit today, we recorded the following information about you: Sadai Reeves 10/14/2023 9:23 AM Signed [facility] from Dr. Fields's office called asking to confirm it is ok to prescribe Minocycline 50mg to Pt. Sadia Reeves [employer]el Technology Instructor Michela Bahena, RN 10/14/2023 11:43 AM Signed Called [facility] from Dr. Taylor Fields's office at [phone] Arellano has never seen this pt. Therefore he is not going to prescribe Minocycline 50mg. Left this nurse's direct call back number if they have questions. Michela Bahena RN October 14, 2023 11:43 AM Michela Bahena, RN 10/14/2023 2:16 PM Signed [facility] called back from Dr. Fields's office and stated the doctor wants to prescribe Minocycline as an anti-neutrophil for the pt and realizes it causes GI upset and wanted to know Dr. Arellano's thoughts. Explained to Paradise Dr. Arellano has not seen/or know the pt and therefore he is not going to advise one way or another. [facility] verbalized understanding. Michela Bahena RN October 14, 2023 2:16 PM Allergies As of Date: 10/14/2023 Noted Allergy Reaction DEXTROAMPHETAMINE-AMPHETAM INE 09/12/2020 16 - Unknown IODINE 05/29/2021 16 - Unknown POVIDONE-IODINE 05/29/2021 16 - Unknown SULFA (SULFONAMIDE ANTIBIOTICS) 12/10/2000 16 - Unknown BETA-ADRENERGIC AGENTS 12/10/2000 IODINE AND IODIDE CONTAINING PROD*12/10/2000 TETRACYCLINE 12/10/2000 Date Reviewed: 12/30/2022 Reviewed by: Tomasa Eason MA - Fully Assessed Prescriptions as of 10/14/2023 - atorvastatin (LIPITOR) 40 mg tablet Take 40 mg by mouth daily at bedtime. - cyclobenzaprine (FLEXERIL) 5 mg tablet TAKE ONE TABLET BY MOUTH TWICE DAILY NEEDED FOR muscle pain - desonide (TRIDESILON) 0.05 % cream apply topically ONCE DAILY UNDER breast NEEDED FOR itch/irritation - TRULICITY 0.75 mg/0.5 mL pen injector inject 0.75 mg subcutaneous every week as directed - TRELEGY ELLIPTA 200-62.5-25 mcg inhalation powder Inhale 1 Puff as instructed once daily. - hydrOXYzine pamoate (VISTARIL) 25 mg capsule Take 50 mg by mouth. - sertraline (ZOLOFT) 50 mg tablet Take 1 tablet by mouth every afternoon. - budesonide (PULMICORT) 0.5 mg/2 mL nebulizer solution Inhale 2 mL as instructed. - Clobetasol Propionate (TEMOVATE) 0.05 % external solution Apply 1 application to affected area twice daily. - albuterol HFA (PROVENTIL HFA, VENTOLIN HFA) 90 mcg/actuation inhaler Inhale 2 Puffs as instructed every 4 hours as needed for wheezing/shortness of breath. - metFORMIN ER (GLUCOPHAGE XR) 500 mg 24 hr tablet Take 1 tablet by mouth daily with breakfast. - naproxen (NAPROSYN) 500 mg tablet Take 0.5 tablets by mouth once daily as needed (for pain). Take with food - fluticasone-salmeterol HFA (ADVAIR HFA) 45-21 mcg/actuation inhaler Inhale 2 Puffs as instructed twice daily. May substitute for insurance coverage - amitriptyline (ELAVIL) 10 mg tablet - benztropine (COGENTIN) 1 mg tablet - citalopram (CELEXA) 40 mg tablet - clonazePAM (KLONOPIN) 0.5 mg tablet Take by mouth. - haloperidol (HALDOL) 5 mg tablet - hydrOXYzine HCl (ATARAX) 50 mg tablet - omeprazole (PRILOSEC) 40 mg capsule - prazosin (MINIPRESS) 1 mg cap - traZODone (DESYREL) 150 mg tablet - PREVACID CAPSULE DR 30MG PO mineral oilm - WELLBUTRIN SR TABLET SA 150MG PO 1 tab bid - COMPAZINE SUPP.RECT 5MG RC q 6 h - ACCOLATE TABLET 20MG PO 1 bid - ATIVAN TABLET 1MG PO 1 q 8h - SERZONE TABLET 150MG PO 1 q am, 2 q hs - ZYRTEC TABLET 10MG PO 1 qd - PERCOCET TABLET 5-325MG PO 1-2 tablets po q 4-6 hrs prn pain - MINERAL OIL OIL PO 2 tbs.qd Problem List As Of Date 10/14/2023 Noted Resolved Moderate persistent asthma with exacerbation [J*09/19/2020 Psoriasis [L40.9] 08/10/2020 Type 2 diabetes mellitus (HCC) [E11.9] 08/10/2020 Encounter Status:Closed by MICHELA BAHENA on 10/14/23 Normal [facility] HIGH RISK HUMAN PAPILLOMA GAL (HPV), PCR FOR DETECTION AND GENOTYPINGon 09-25-2023 HPV 16 Ag Ql (Unsp spec) Negative Normal Negative for HPV DNA high risk type 16 by PCR [facility] Comment on above: Order Comment: Speci men Type: FLUID SPECIMEN Ordering Facility: [facility] Address: [address] [place] [address] Performed By: #### L [id number], HPVHRT #### [facility] CLIA [id number] [address] [place] [address] [place] HPV 18 Ag Ql (Unsp spec) Negative Normal Negative for HPV DNA high risk type 18 by PCR [facility] Comment on above: Order Comment: Speci men Type: FLUID SPECIMEN Ordering Facility: [facility] Address: [address] [place] [address] Performed By: #### L [id number], HPVHRT #### [facility] CLIA [id number] [facility] [place] [address] [place] HPV 31+33+35+39+45+51+52+5 6+58+59+66+68 DNA DONALDO+probe Ql (Cvx) Negative for HPV DNA high risk types: 31,33,35,39,45,51,52,56,58 ,59,66,68 by PCR. Normal Negative for HPV DNA high risk types: 31,33,35,39, 45,51,52,56, 58,59,66,68 by PCR. [facility] Comment on above: Order Comment: Speci men Type: FLUID SPECIMEN Ordering Facility: [facility] Address: [address] [place] [address], [place] [address] Performed By: #### L [id number], HPVHRT #### [facility] CLIA [id number] [address] [place] [address] [place] PAP TESTon 09-25-2023 ADEQUACY Satisfactory for interpretation. Normal [facility] Comment on above: Order Comment: Speci men Type: FLUID SPECIMEN Ordering Facility: [facility] Address: [address] [place] [address] Performed By: #### L [id number], HPVHRT #### [facility] CLIA [id number] [address] [place] [address] [place] CASE REPORT Normal [facility] Comment on above: Order Comment: Speci men Type: FLUID SPECIMEN Ordering Facility: [facility] Address: [address] [place] [address] Result Comment: Gyne cologic Cytology Report Case: [id number] Authorizing Provider: Taylor Fields NP Collected: 09/25/2023 01:30 PM Ordering Location: [facility] Received: 09/26/2023 04:01 PM [facility] First Screen: Grant, Teri, CT, ASCP Specimen: Pap Test, ThinPrep, Vagina Performed By: #### L [id number], HPVHRT #### [facility] CLIA [id number] [address] [place] [address] [place] CLINICAL HISTORY, CYTOLOGY, SECTION CREWS ACTIVITIES CLERK Routine Exam Normal [facility] Comment on above: Order Comment: Speci men Type: FLUID SPECIMEN Ordering Facility: [facility] Address: [address] [place] [address], [place] [address] Result Comment: Hyst erectomy, Total SUBTOTAL Performed By: #### L [id number], HPVHRT #### [facility] CLIA [id number] [address] [place] [address] [place] FINAL PERFORMING LAB Normal [facility] Comment on above: Order Comment: Speci men Type: FLUID SPECIMEN Ordering Facility: [facility] Address: [address] [place] [address], [place] [address] Result Comment: Tech nical component, winch stripper screening performed at [facility], [address] [facility] [address] CLIA# [id number] Diagnostic interpretation performed at [facility], [address] [facility] [address] CLIA# [id number] Tax Senior Associate: Nicolas Diaz M.D. Performed By: #### L [id number], HPVHRT #### [facility] CLIA [id number] [facility] [place] [address] [place] HPV REFLEX Yes HPV Normal [facility] Comment on above: Order Comment: Speci men Type: FLUID SPECIMEN Ordering Facility: [facility] Address: [address] [place] [address], [place] [address] Performed By: #### L [id number], HPVHRT #### [facility] CLIA [id number] [address] [place] [address] [place] INTERPRETATION, CYTOLOGY, SECTION CREWS ACTIVITIES CLERK Normal [facility] Comment on above: Order Comment: Speci men Type: FLUID SPECIMEN Ordering Facility: [facility] Address: [address] [place] [address], [place] [address] Result Comment: Nega tive for intraepithelial lesion or malignancy. Performed By: #### L [id number], HPVHRT #### [facility] CLIA [id number] [address] [place] [address] [place] LMP 1990 Normal [facility] Comment on above: Order Comment: Speci men Type: FLUID SPECIMEN Ordering Facility: [facility] Address: [address] [place] [address] Result Comment: PREVIOUS PAP: 2009 (NORMAL) Performed By: #### L [id number], HPVHRT #### [facility] CLIA [id number] [address] [place] [address] [place] PAP DISCLAIMER COMMENT The Pap Smear is a screening test for cervical cancer. False negative results occur with all screening tests, emphasizing the need for rescreening at recommended intervals, and clinical correlation. Normal [facility] Comment on above: Order Comment: Speci men Type: FLUID SPECIMEN Ordering Facility: [facility] Address: [address] [place] [address] Performed By: #### L [id number], HPVHRT #### [facility] CLIA [id number] [address] [place] [address] [place] PAP COMPUTER NUMERICAL CONTROL OPERATOR COMMENT This specimen has be en analyzed by the ThinPrep Imaging System, an automated imaging and review system, which assists the laboratory in evaluating cells on ThinPrep Pap tests. Following automated imaging, selected puga from every slide are reviewed by a winch stripper. Normal [facility] Comment on above: Order Comment: Speci men Type: FLUID SPECIMEN Ordering Facility: [facility] Address: [address] [place] [address], [place] [address] Performed By: #### L [id number], HPVHRT #### [facility] CLIA [id number] [address] [place] [address] [place] CBC W Auto Differential pane l (Bld)on 09-10-2023 Basophils (Bld) [#/Vol] 10*3/uL Normal <0.11 [facility] Comment on above: Order Comment: Speci men Type: BLOOD SPECIMEN Ordering Facility: [facility] Address: [address] [place] [address], [place] [address] Performed By: #### 5 7021-8 #### [facility] CLIA [id number] [address] [place] [address] [place] Basophils/100 WBC (Bld) 0.3 % Normal [facility] Comment on above: Order Comment: Speci men Type: BLOOD SPECIMEN Ordering Facility: [facility] Address: [address] [place] [address], [place] [address] Performed By: #### 5 7021-8 #### [facility] CLIA [id number] [address] [place] [address] [place] Differential cell count method Nom (Bld) Auto Normal [facility] Comment on above: Order Comment: Speci men Type: BLOOD SPECIMEN Ordering Facility: [facility] Address: [address] [place] [address] Performed By: #### 5 7021-8 #### [facility] CLIA [id number] [address] [place] [address] [place] Eosinophils (Bld) [#/Vol] 0.24 10*3/uL Normal <0.46 [facility] Comment on above: Order Comment: Speci men Type: BLOOD SPECIMEN Ordering Facility: [facility] Address: [address] [place] [address] Performed By: #### 5 7021-8 #### [facility] CLIA [id number] [address] [place] [address] [place] Eosinophils/100 WBC (Bld) 4.1 % Normal [facility] Comment on above: Order Comment: Speci men Type: BLOOD SPECIMEN Ordering Facility: [facility] Address: [address] [place] [address] Performed By: #### 5 7021-8 #### [facility] CLIA [id number] [address] [place] [address] [place] Erythrocyte distribution width (RBC) [Ratio] 13.7 % Normal 11.5-15.0 [facility] Comment on above: Order Comment: Speci men Type: BLOOD SPECIMEN Ordering Facility: [facility] Address: [address] [place] [address] Performed By: #### 5 7021-8 #### [facility] CLIA [id number] [address] [place] [address] [place] Hematocrit (Bld) [Volume fraction] 39.2 % Normal 36.0-46.0 [facility] Comment on above: Order Comment: Speci men Type: BLOOD SPECIMEN Ordering Facility: [facility] Address: [address] [place] [address] Performed By: #### 5 7021-8 #### [facility] CLIA [id number] [address] [place] [address] [place] Hemoglobin (Bld) [Mass/Vol] 12.6 g/dL Normal 11.5-15.5 [facility] Comment on above: Order Comment: Speci men Type: BLOOD SPECIMEN Ordering Facility: [facility] Address: [address] [place] [address] Performed By: #### 5 7021-8 #### [facility] CLIA [id number] [address] [place] [address] [place] Immature granulocytes (Bld) [#/Vol] 10*3/uL Normal <0.10 [facility] Comment on above: Order Comment: Speci men Type: BLOOD SPECIMEN Ordering Facility: [facility] Address: [address] [place] [address] Performed By: #### 5 7021-8 #### [facility] CLIA [id number] [address] [place] [address] [place] Immature granulocytes/100 WBC (Bld) 0.3 % Normal [facility] Comment on above: Order Comment: Speci men Type: BLOOD SPECIMEN Ordering Facility: [facility] Address: [address] [place] [address], [place] [address] Performed By: #### 5 7021-8 #### [facility] CLIA [id number] [address] [place] [address] [place] Lymphocytes (Bld) [#/Vol] 1.40 10*3/uL Normal 1.00-4.00 [facility] Comment on above: Order Comment: Speci men Type: BLOOD SPECIMEN Ordering Facility: [facility] Address: [address] [place] [address], [place] [address] Performed By: #### 5 7021-8 #### [facility] CLIA [id number] [address] [place] [address] [place] Lymphocytes/100 WBC (Bld) 24.1 % Normal [facility] Comment on above: Order Comment: Speci men Type: BLOOD SPECIMEN Ordering Facility: [facility] Address: [address] [place] [address], [place] [address] Performed By: #### 5 7021-8 #### [facility] CLIA [id number] [address] [place] [address] [place] MCH (RBC) [Entitic mass] 29.5 pg Normal 26.0-34.0 [facility] Comment on above: Order Comment: Speci men Type: BLOOD SPECIMEN Ordering Facility: [facility] Address: [address] [place] [address], [place] [address] Performed By: #### 5 7021-8 #### [facility] CLIA [id number] [address] [place] [address] [place] MCHC (RBC) [Mass/Vol] 32.1 g/dL Normal 30.5-36.0 [facility] Comment on above: Order Comment: Speci men Type: BLOOD SPECIMEN Ordering Facility: [facility] Address: [address] [place] [address] Performed By: #### 5 7021-8 #### [facility] CLIA [id number] [address] [address] [place] MCV (RBC) [Entitic vol] 91.8 fL Normal 80.0-100.0 [facility] Comment on above: Order Comment: Speci men Type: BLOOD SPECIMEN Ordering Facility: [facility] Address: [address] [place] [address] Performed By: #### 5 7021-8 #### [facility] CLIA [id number] [address] [place] [address] [place] Monocytes (Bld) [#/Vol] 0.46 10*3/uL Normal <0.87 [facility] Comment on above: Order Comment: Speci men Type: BLOOD SPECIMEN Ordering Facility: [facility] Address: [address] [place] [address] Performed By: #### 5 7021-8 #### [facility] CLIA [id number] [address] [place] [address] [place] Monocytes/100 WBC (Bld) 7.9 % Normal [facility] Comment on above: Order Comment: Speci men Type: BLOOD SPECIMEN Ordering Facility: [facility] Address: [address] [place] [address] Performed By: #### 5 7021-8 #### [facility] CLIA [id number] [address] [place] [address] [place] Neutrophils (Bld) [#/Vol] 3.67 10*3/uL Normal 1.45-7.50 [facility] Comment on above: Order Comment: Speci men Type: BLOOD SPECIMEN Ordering Facility: [facility] Address: [address] [place] [address] Performed By: #### 5 7021-8 #### [facility] CLIA [id number] [address] [place] [address] [place] Neutrophils/100 WBC (Bld) 63.3 % Normal [facility] Comment on above: Order Comment: Speci men Type: BLOOD SPECIMEN Ordering Facility: [facility] Address: [address] [place] [address], [place] [address] Performed By: #### 5 7021-8 #### [facility] CLIA [id number] [address] [place] [address] [place] Nucleated RBC (Bld) [#/Vol] 10*3/uL Normal <0.01 [facility] Comment on above: Order Comment: Speci men Type: BLOOD SPECIMEN Ordering Facility: [facility] Address: [address] [place] [address], [place] [address] Performed By: #### 5 7021-8 #### [facility] CLIA [id number] [address] [place] [address] [place] Nucleated RBC/100 WBC (Bld) [Ratio] 0.0 /100 WBC Normal [facility] Comment on above: Order Comment: Speci men Type: BLOOD SPECIMEN Ordering Facility: [facility] Address: [address] [place] [address] Performed By: #### 5 7021-8 #### [facility] CLIA [id number] [address] [place] [address] [place] Platelet mean volume (Bld) [Entitic vol] 10.5 fL Normal 9.0-12.7 [facility] Comment on above: Order Comment: Speci men Type: BLOOD SPECIMEN Ordering Facility: [facility] Address: [address] [place] [address] Performed By: #### 5 7021-8 #### [facility] CLIA [id number] [address] [place] [address] [place] Platelets (Bld) [#/Vol] 234 10*3/uL Normal 150-400 [facility] Comment on above: Order Comment: Speci men Type: BLOOD SPECIMEN Ordering Facility: [facility] Address: [address] [place], [place] [address] Performed By: #### 5 7021-8 #### [facility] CLIA [id number] [address] [place] [address] [place] RBC (Bld) [#/Vol] 4.27 10*6/uL Normal 3.90-5.20 [facility] Comment on above: Order Comment: Speci men Type: BLOOD SPECIMEN Ordering Facility: [facility] Address: [address] [place] [address] Performed By: #### 5 7021-8 #### [facility] CLIA [id number] [address] [place] [address] [place] WBC (Bld) [#/Vol] 5.81 10*3/uL Normal 3.70-11.00 [facility] Comment on above: Order Comment: Speci men Type: BLOOD SPECIMEN Ordering Facility: [facility] Address: [address] [place] [address] Performed By: #### 5 7021-8 #### [facility] CLIA [id number] [address] [place] [address] [place] Comprehensive metabolic 2000 panelon 09-10-2023 Albumin [Mass/Vol] 4.3 g/dL Normal 3.9-4.9 [facility] Comment on above: Order Comment: Speci men Type: BLOOD SPECIMEN Ordering Facility: [facility] Address: [address] [place] [address] Performed By: #### A NAIFR #### [facility] CLIA [id number] [address] [place] [address] [place] ALP [Catalytic activity/Vol] 164 U/L High 34-123 [facility] Comment on above: Order Comment: Speci men Type: BLOOD SPECIMEN Ordering Facility: [facility] Address: [address] [place] [address] Performed By: #### A NAIFR #### [facility] CLIA [id number] [address] [place] [id number] [place] ALT [Catalytic activity/Vol] 16 U/L Normal 7-38 [facility] Comment on above: Order Comment: Speci men Type: BLOOD SPECIMEN Ordering Facility: [facility] Address: [address] [place] [address] Performed By: #### A NAIFR #### [facility] CLIA [id number] [address] [place] [address] [place] Anion gap [Moles/Vol] 12 mmol/L Normal 9-18 [facility] Comment on above: Order Comment: Speci men Type: BLOOD SPECIMEN Ordering Facility: [facility] Address: [address] [place] [address] Performed By: #### A NAIFR #### [facility] CLIA [id number] [address] [place] [address] [place] AST [Catalytic activity/Vol] 30 U/L Normal 13-35 [facility] Comment on above: Order Comment: Speci men Type: BLOOD SPECIMEN Ordering Facility: [facility] Address: [address] [place] [address] Performed By: #### A NAIFR #### [facility] CLIA [id number] [address] [place] [address] [place] Bilirubin [Mass/Vol] 0.2 mg/dL Normal 0.2-1.3 [facility] Comment on above: Order Comment: Speci men Type: BLOOD SPECIMEN Ordering Facility: [facility] Address: [address] [place], [place] [address] Performed By: #### A NAIFR #### [facility] CLIA [id number] [address] [place] [address] [place] Calcium [Mass/Vol] 10.0 mg/dL Normal 8.5-10.2 [facility] Comment on above: Order Comment: Speci men Type: BLOOD SPECIMEN Ordering Facility: [facility] Address: [address] [place] [address] Performed By: #### A NAIFR #### [facility] CLIA [id number] [address] [place] [address] [place] Chloride [Moles/Vol] 104 mmol/L Normal 97-105 [facility] Comment on above: Order Comment: Speci men Type: BLOOD SPECIMEN Ordering Facility: [facility] Address: [address] [place] [address] Performed By: #### A NAIFR #### [facility] CLIA [id number] [address] [place] [address] [place] CO2 [Moles/Vol] 24 mmol/L Normal 22-30 [facility] Comment on above: Order Comment: Speci men Type: BLOOD SPECIMEN Ordering Facility: [facility] Address: [address] [place] [address] Performed By: #### A NAIFR #### [facility] CLIA [id number] [address] [place] [address] [place] Creatinine [Mass/Vol] 0.73 mg/dL Normal 0.58-0.96 [facility] Comment on above: Order Comment: Speci men Type: BLOOD SPECIMEN Ordering Facility: [facility] Address: [address] [place] [address] Performed By: #### A NAIFR #### [facility] CLIA [id number] [address] [place] [address] [place] Creatinine and Glomerular filtration rate.predicted panel (S/P/Bld) 95 mL/min/1.73m??? Normal >=60 [facility] Comment on above: Order Comment: Speci men Type: BLOOD SPECIMEN Ordering Facility: [facility] Address: [address] [place] [address] Result Comment: Rosalinda mated Glomerular Filtration Rate (eGFR) is calculated using the 2020 CKD-EPI creatinine equation. This equation utilizes serum creatinine, sex, and age as parameters. The creatinine assay has traceable calibration to isotope dilution-mass spectrometry. Refer to KDIGO guidelines for clinical interpretation. In patients with unstable renal function, e.g. those with acute kidney injury, the eGFR may not accurately reflect actual GFR. Performed By: #### A NAIFR #### [facility] CLIA [id number] [address] [place] [address] [place] Glucose [Mass/Vol] 185 mg/dL High 74-99 [facility] Comment on above: Order Comment: Roseanne estrada Type: BLOOD SPECIMEN Ordering Facility: [facility] Address: [address] [place] [address] Result Comment: The [place] [employer] (ADA) provides guidance for cutoff values for fasting glucose and random glucose. The ADA defines fasting as no caloric intake for at least 8 hours. Fasting plasma glucose results between 100 to 125 mg/dL indicate increased risk for diabetes (prediabetes). Fasting plasma glucose results greater than or equal to 126 mg/dL meet the criteria for diagnosis of diabetes. In the absence of unequivocal hyperglycemia, results should be confirmed by repeat testing. In a patient with classic symptoms of hyperglycemia or hyperglycemic crisis, random plasma glucose results greater than or equal to 200 mg/dL meet the criteria for diagnosis of diabetes. Reference: Standards of Medical Care in Diabetes 2016, [place] [employer]. Diabetes Care. 2016.39(Suppl 1). Performed By: #### A NAIFR #### [facility] CLIA [id number] [address] [place] [address] [place] Potassium [Moles/Vol] 3.5 mmol/L Low 3.7-5.1 [facility] Comment on above: Order Comment: Roseanne estrada Type: BLOOD SPECIMEN Ordering Facility: [facility] Address: [address] [place] [address] Performed By: #### A NAIFR #### [facility] CLIA [id number] [address] [place] [address] [place] Protein [Mass/Vol] 6.7 g/dL Normal 6.3-8.0 [facility] Comment on above: Order Comment: Speci men Type: BLOOD SPECIMEN Ordering Facility: [facility] Address: [address] [place] [address] Performed By: #### A NAIFR #### [facility] CLIA [id number] [address] [place] [address] [place] Sodium [Moles/Vol] 140 mmol/L Normal 136-144 [facility] Comment on above: Order Comment: Speci men Type: BLOOD SPECIMEN Ordering Facility: [facility] Address: [address] [place] [address] Performed By: #### A NAIFR #### [facility] CLIA [id number] [address] [place] [address] [place] Urea nitrogen [Mass/Vol] 10 mg/dL Normal 7-21 [facility] Comment on above: Order Comment: Speci men Type: BLOOD SPECIMEN Ordering Facility: [facility] Address: [address] [place] [address] Performed By: #### A NAIFR #### [facility] CLIA [id number] [address] [place] [address] [place] Lipase SerPl-cCncon 09-10-19 24 Lipase [Catalytic activity/Vol] 34 U/L Normal 16-61 [facility] Comment on above: Order Comment: Speci men Type: BLOOD SPECIMEN Ordering Facility: [facility] Address: [address] [place] [address] Performed By: #### A NAIFR #### [facility] CLIA [id number] [address] [place] [address] [place] Absolute lymphocyte countOrd ered By: Marcial Shaw on 08-18-2023 Lymphocytes Auto (Unsp spec) [#/Vol] 1.38 10*3/uL 0.83-4.51 [facility] Automated lymphocyte count a s percentage of total leukocytesOrdered By: Marcial Shaw on 08-18-2023 Lymphocytes/100 WBC Auto (Unsp spec) 31.7 % 19-41 [facility] Basophil percentageOrdered B y: Marcial Shaw on 08-18-2023 Basophils/100 WBC (Bld) 0.5 % 0-1 [facility] Bilirubin [Mass/Vol] 0.50 mg/dL 0.20-1.00 [facility] Comment on above: For patients on eltr ombopag therapy, use of Dimension Bryant TBIL is not recommended. Chloride [Moles/Vol] 110 mmol/L 98-107 [facility] Eosinophils/100 WBC (Bld) 5.0 % 0-5 [facility] Glucose [Mass/Vol] 87 mg/dL 74-106 [facility] Hemoglobin (Bld) [Mass/Vol] 12.9 g/dL 12.0-15.0 [facility] Monocytes/100 WBC (Bld) 9.4 % 0-10 [facility] Neutrophils (Bld) [#/Vol] 2.3 10*3/uL 2.0-7.7 [facility] Neutrophils/100 WBC (Bld) 52.9 % 47-70 [facility] Potassium [Moles/Vol] 3.3 mmol/L 3.5-5.1 [facility] Protein [Mass/Vol] 6.7 g/dL 6.4-8.2 [facility] Sodium [Moles/Vol] 141 mmol/L 136-145 [facility] WBC (Bld) [#/Vol] 4.4 10*3/uL 4.4-11.0 [facility] Determination of erythrocyte mean corpuscular volume (MCV)Ordered By: Marcial Shaw on 08-18-2023 MCV (RBC) [Entitic vol] 86.5 fL 81-99 [facility] Erythrocyte distribution wid th ratioOrdered By: Marcial Shaw on 08-18-2023 Erythrocyte distribution width (RBC) [Ratio] 12.8 % 11.6-14.6 [facility] Erythrocyte distribution wid th standard deviationOrdered By: Marcial Shaw on 08-18-2023 Erythrocyte distribution width (RBC) [Entitic vol] 40.0 fL 35.1-43.9 [facility] Hematocrit Auto (Bld) [Volum e fraction]Ordered By: Marcial Shaw on 08-18-2023 Hematocrit (Bld) [Volume fraction] 38.5 % 37-47 [facility] Immature granulocytes/100 WB C Auto (Bld)Ordered By: Marcial Shaw on 08-18-2023 Immature granulocytes/100 WBC (Bld) 0.500 % 0.0-0.9 [facility] Comment on above: IG% - Immature Granu locytes (promyelocytes, myelocytes and metamyelocytes) > 1% indicates that a LEFT SHIFT is Present. Laboratory - Chemistry and C hemistry - challengeOrdered By: Marcial Shaw on 08-18-2023 Albumin/Globulin [Mass ratio] 1.2 {ratio} 0.9-2.4 [facility] ALP [Catalytic activity/Vol] 159 U/L 45-117 [facility] ALT [Catalytic activity/Vol] 15 U/L 13-56 [facility] CO2 [Moles/Vol] 25.0 mmol/L 21.0-32.0 [facility] Globulin (S) [Mass/Vol] 3.0 g/dL 2.2-4.2 [facility] Lipase [Catalytic activity/Vol] 39 U/L 13-75 [facility] Comment on above: Please note:LIPASE r evised reference range effective 22. New Lipase methodology. Expected to produce lower values than the previous assay method. NEW Reference Range: 13 - 75 U/L Urea nitrogen/Creatinine [Mass ratio] 8.4 mg/mg 10-20 [facility] Laboratory - Hematology and Cell countsOrdered By: Marcial Shaw on 08-18-2023 MCH (RBC) [Entitic mass] 29.0 pg 27.0-32.0 [facility] MCHC (RBC) [Mass/Vol] 33.5 g/dL 32-36 [facility] Nucleated RBC/100 WBC (Bld) [Ratio] 0 % 0-5 [facility] Platelet mean volume (Bld) [Entitic vol] 9.1 fL 6.2-12.0 [facility] Platelets (Bld) [#/Vol] 239 10*3/uL 150-450 [facility] No Panel InformationOrdered By: Marcial Shaw on 08-18-2023 Estimated Creatinine Clearance Calc 62.51 ml/min [facility] Estimated GFR (MDRD) Amer 90 mL/min >60 [facility] Comment on above: GFR Calc Estimated GFR (MDRD) Non-Af Amer 75 mL/min >60 [facility] Comment on above: Non- GFR Calc RBC Auto (Bld) [#/Vol]Ordere d By: Marcial Shaw on 08-18-2023 RBC (Bld) [#/Vol] 4.45 10*6/uL 4.2-5.4 [facility] Serum or plasma calcium kallie urement (mass/volume)Ordered By: Marcial Shaw on 08-18-2023 Calcium [Mass/Vol] 9.2 mg/dL 8.5-10.1 [facility] Serum or plasma creatinine m easurement (mass/volume)Ordered By: Marcial Shaw on 08-18-2023 Creatinine [Mass/Vol] 0.83 mg/dL 0.55-1.02 [facility] Comment on above: The validity of the calculated GFR & GFRAA in patients over 70 years has not been determined. Clinical correlation is essential. Serum or plasma urea nitroge n measurement (mass/volume)Ordered By: Marcial Shaw on 08-18-2023 Urea nitrogen [Mass/Vol] 7 mg/dL 7-18 [facility] Thin prep Papanicolaou smear with manual screeningOrdered By: Marcial Shaw on 08-18-2023 Thin prep Papanicolaou smear with manual screening 3.7 g/dL 3.2-5.0 [facility] Thin prep Papanicolaou smear with manual screening 20 U/L 15-37 [facility] Thin prep Papanicolaou smear with manual screening 6 5-15 [facility] Thin prep Papanicolaou smear with manual screeningOrdered By: Mahesh Robert on 08-12-2023 Thin prep Papanicolaou smear with manual screening 109 mg/dL 74-106 [facility] Comment on above: MANAGEMENT OF PATIEN T CARE PER NURSING PROTOCOL Absolute lymphocyte countOrd ered By: ED PROVIDER on 07-24-2023 Lymphocytes Auto (Unsp spec) [#/Vol] 1.40 10*3/uL 0.83-4.51 [facility] Automated lymphocyte count a s percentage of total leukocytesOrdered By: ED PROVIDER on 07-24-2023 Lymphocytes/100 WBC Auto (Unsp spec) 32.9 % 19-41 [facility] Basophil percentageOrdered B y: Aniceto Tillman on 07-24-2023 Basophil percentage 5-10 SEEN /hpf 0-5 [facility] Basophil percentageOrdered B y: ED PROVIDER on 07-24-2023 Basophils/100 WBC (Bld) 0.2 % 0-1 [facility] Bilirubin [Mass/Vol] 0.70 mg/dL 0.20-1.00 [facility] Comment on above: For patients on eltr ombopag therapy, use of Dimension Bryant TBIL is not recommended. Chloride [Moles/Vol] 107 mmol/L 98-107 [facility] Eosinophils/100 WBC (Bld) 7.5 % 0-5 [facility] Glucose [Mass/Vol] 98 mg/dL 74-106 [facility] Hemoglobin (Bld) [Mass/Vol] 13.0 g/dL 12.0-15.0 [facility] Monocytes/100 WBC (Bld) 9.9 % 0-10 [facility] Neutrophils (Bld) [#/Vol] 2.1 10*3/uL 2.0-7.7 [facility] Neutrophils/100 WBC (Bld) 48.1 % 47-70 [facility] Potassium [Moles/Vol] 3.7 mmol/L 3.5-5.1 [facility] Comment on above: Moderate Hemolysis, Result may be falsely increased. Protein [Mass/Vol] 6.5 g/dL 6.4-8.2 [facility] Sodium [Moles/Vol] 142 mmol/L 136-145 [facility] WBC (Bld) [#/Vol] 4.3 10*3/uL 4.4-11.0 [facility] Bilirubin Test strip Ql (U)O rdered By: Aniceto Tillman on 07-24-2023 Bilirubin Ql (U) Negative Negative [facility] Culture, urineOrdered By: Della Price on 07-24-2023 Bacteria identified Cx Nom (U) Positive [facility] Determination of erythrocyte mean corpuscular volume (MCV)Ordered By: ED PROVIDER on 07-24-2023 MCV (RBC) [Entitic vol] 87.5 fL 81-99 [facility] Erythrocyte distribution wid th ratioOrdered By: ED PROVIDER on 07-24-2023 Erythrocyte distribution width (RBC) [Ratio] 12.8 % 11.6-14.6 [facility] Erythrocyte distribution wid th standard deviationOrdered By: ED PROVIDER on 07-24-2023 Erythrocyte distribution width (RBC) [Entitic vol] 40.3 fL 35.1-43.9 [facility] Hematocrit Auto (Bld) [Volum e fraction]Ordered By: ED PROVIDER on 07-24-2023 Hematocrit (Bld) [Volume fraction] 38.5 % 37-47 [facility] Immature granulocytes/100 WB C Auto (Bld)Ordered By: ED PROVIDER on 07-24-2023 Immature granulocytes/100 WBC (Bld) 1.400 % 0.0-0.9 [facility] Comment on above: IG% - Immature Granu locytes (promyelocytes, myelocytes and metamyelocytes) > 1% indicates that a LEFT SHIFT is Present. Ketones Test strip Ql (U)Ord ered By: Aniceto Tillman on 07-24-2023 Ketones Ql (U) 5 mg/dl Negative [facility] Laboratory - Chemistry and C hemistry - challengeOrdered By: ED PROVIDER on 07-24-2023 Albumin/Globulin [Mass ratio] 1.0 {ratio} 0.9-2.4 [facility] ALP [Catalytic activity/Vol] 144 U/L 45-117 [facility] ALT [Catalytic activity/Vol] 16 U/L 13-56 [facility] CO2 [Moles/Vol] 28.0 mmol/L 21.0-32.0 [facility] Globulin (S) [Mass/Vol] 3.3 g/dL 2.2-4.2 [facility] [facility] Urea nitrogen/Creatinine [Mass ratio] 13.1 mg/mg 10-20 [facility] Laboratory - Hematology and Cell countsOrdered By: ED PROVIDER on 07-24-2023 MCH (RBC) [Entitic mass] 29.5 pg 27.0-32.0 [facility] MCHC (RBC) [Mass/Vol] 33.8 g/dL 32-36 [facility] Nucleated RBC/100 WBC (Bld) [Ratio] 0 % 0-5 [facility] Platelet mean volume (Bld) [Entitic vol] 8.9 fL 6.2-12.0 [facility] Platelets (Bld) [#/Vol] 232 10*3/uL 150-450 [facility] Mucus LM Ql (Urine sed)Order ed By: Aniceto Tillman on 07-24-2023 Mucus Ql (Urine sed) 0 SEEN /hpf [facility] Nitrite Test strip Ql (U)Ord ered By: Aniceto Tillman on 07-24-2023 Nitrite Ql (U) Negative Negative [facility] No Panel InformationOrdered By: Aniceto Tillman on 07-24-2023 Urine RBC 0 SEEN /hpf 0-5 [facility] No Panel InformationOrdered By: ED PROVIDER on 07-24-2023 Estimated Creatinine Clearance Calc 67.58 ml/min [facility] Estimated GFR (MDRD) Amer 99 mL/min >60 [facility] Comment on above: GFR Calc Estimated GFR (MDRD) Non-Af Amer 82 mL/min >60 [facility] Comment on above: Non- GFR Calc Protein Test strip Ql (U)Ord ered By: Aniceto Tillman on 07-24-2023 Protein Ql (U) Negative Negative [facility] RBC Auto (Bld) [#/Vol]Ordere d By: ED PROVIDER on 07-24-2023 RBC (Bld) [#/Vol] 4.40 10*6/uL 4.2-5.4 [facility] Serum or plasma calcium kallie urement (mass/volume)Ordered By: ED PROVIDER on 07-24-2023 Calcium [Mass/Vol] 8.9 mg/dL 8.5-10.1 [facility] Serum or plasma creatinine m easurement (mass/volume)Ordered By: ED PROVIDER on 07-24-2023 Creatinine [Mass/Vol] 0.77 mg/dL 0.55-1.02 [facility] Comment on above: The validity of the calculated GFR & GFRAA in patients over 70 years has not been determined. Clinical correlation is essential. Serum or plasma urea nitroge n measurement (mass/volume)Ordered By: ED PROVIDER on 07-24-2023 Urea nitrogen [Mass/Vol] 10 mg/dL 7-18 [facility] Squamous epithelial cells de tection in urine sediment by light microscopyOrdered By: Aniceto Tillman on 07-24-2023 Epithelial cells.squamous LM Ql (Urine sed) 10-25 SEEN /hpf 5-10 [facility] Thin prep Papanicolaou smear with manual screeningOrdered By: ED PROVIDER on 07-24-2023 Thin prep Papanicolaou smear with manual screening 3.2 g/dL 3.2-5.0 [facility] Thin prep Papanicolaou smear with manual screening 41 U/L 15-37 [facility] Comment on above: Moderate Hemolysis, Result may be falsely increased. Thin prep Papanicolaou smear with manual screening 7 5-15 [facility] Urine blood detectionOrdered By: Aniceto Tillman on 07-24-2023 RBC Ql (U) Negative Negative [facility] Urine clarityOrdered By: Skyler Tilmlan on 07-24-2023 Clarity (U) Sl. Cloudy Clear [facility] Urine color determinationOrd ered By: Aniceto Tillman on 07-24-2023 Color (U) Yellow Yellow [facility] Urine glucose detectionOrder ed By: Aniceto Tillman on 07-24-2023 Glucose Ql (U) Normal mg/dl Normal [facility] Urine leukocyte esterase det ection by dipstickOrdered By: Aniceto Tillman on 07-24-2023 Leukocyte esterase Test strip Ql (U) 500 /ul Negative [facility] Urine pHOrdered By: Aniceto cook on 07-24-2023 pH (U) 6.5 [pH] 5.0 - 8.0 [facility] Urine sediment bacteria coun t by microscopy (number/high power field)Ordered By: Aniceto Tillman on 07-24-2023 Bacteria LM.HPF (Urine sed) [#/Area] 0 /[HPF] None Seen [facility] Urine specific gravity measu rementOrdered By: Aniceto Tillman on 07-24-2023 Specific gravity (U) [Rel density] 1.010 1.002-1.030 [facility] Urine urobilinogen measureme ntOrdered By: Aniceto Tillman on 07-24-2023 Urobilinogen Ql (U) Normal mg/dl Normal [facility] ALBUMIN/CREAT RATIO RND URon 07-02-2023 Albumin DL <= 20 mg/L (U) [Mass/Vol] mg/dL Normal [facility] Comment on above: Order Comment: Speci men Type: URINE SPECIMEN Ordering Facility: [facility] Address: [address] [place] [address] Performed By: #### U ACR #### [facility] CLIA [id number] [address] [place] [address] [place] Albumin/Creatinine (U) [Mass ratio] <10 Normal <30 [facility] Comment on above: Order Comment: Speci men Type: URINE SPECIMEN Ordering Facility: [facility] Address: [address] [place] [address] Result Comment: Adul t Male and Female Nephrotic Criteria: <30 mg/g is considered normal to mildly increased 30-300 mg/g is considered moderately increased >300 mg/g is considered severely increased KDIGO. (2013). KDIGO 2012 Clinical Practice Guideline for the Evaluation and Management of Chronic Kidney Disease. Official Journal of the International Society of Nephrology, 3(1), 1-150. Performed By: #### U ACR #### [facility] CLIA [id number] [address] [place] [address] [place] Creatinine (U) [Mass/Vol] 120.1 mg/dL Normal 20.0-300.0 [facility] Comment on above: Order Comment: Speci men Type: URINE SPECIMEN Ordering Facility: [facility] Address: [address] [place] [address] Performed By: #### U ACR #### [facility] CLIA [id number] [address] [place] [address] [place] CBC panel Auto (Bld)on 07-02 Erythrocyte distribution width (RBC) [Ratio] 12.6 % Normal 11.5-15.0 [facility] Comment on above: Order Comment: Speci men Type: BLOOD SPECIMEN Ordering Facility: [facility] Address: [address] [place] [address] Performed By: #### 5 8410-2 #### [facility] CLIA [id number] [address] [place] [address] [place] Hematocrit (Bld) [Volume fraction] 37.9 % Normal 36.0-46.0 [facility] Comment on above: Order Comment: Speci men Type: BLOOD SPECIMEN Ordering Facility: [facility] Address: [address] [place] [address] Performed By: #### 5 8410-2 #### [facility] CLIA [id number] [address] [place] [address] [place] Hemoglobin (Bld) [Mass/Vol] 12.5 g/dL Normal 11.5-15.5 [facility] Comment on above: Order Comment: Speci men Type: BLOOD SPECIMEN Ordering Facility: [facility] Address: [address] [place] [address] Performed By: #### 5 8410-2 #### [facility] CLIA [id number] [address] [place] [address] [place] MCH (RBC) [Entitic mass] 29.9 pg Normal 26.0-34.0 [facility] Comment on above: Order Comment: Speci men Type: BLOOD SPECIMEN Ordering Facility: [facility] Address: [address] [place] [address] Performed By: #### 5 8410-2 #### [facility] CLIA [id number] [address] [place] [address] [place] MCHC (RBC) [Mass/Vol] 33.0 g/dL Normal 30.5-36.0 [facility] Comment on above: Order Comment: Speci men Type: BLOOD SPECIMEN Ordering Facility: [facility] Address: [address] [place] [address] Performed By: #### 5 8410-2 #### [facility] CLIA [id number] [address] [place] [address] [place] MCV (RBC) [Entitic vol] 90.7 fL Normal 80.0-100.0 [facility] Comment on above: Order Comment: Speci men Type: BLOOD SPECIMEN Ordering Facility: [facility] Address: [address] [place] [address] Performed By: #### 5 8410-2 #### [facility] CLIA [id number] [address] [place] [address] [place] Nucleated RBC (Bld) [#/Vol] 10*3/uL Normal <0.01 [facility] Comment on above: Order Comment: Speci men Type: BLOOD SPECIMEN Ordering Facility: [facility] Address: [address] [place] [address] Performed By: #### 5 8410-2 #### [facility] CLIA [id number] [address] [place] [address] [place] Platelet mean volume (Bld) [Entitic vol] 9.6 fL Normal 9.0-12.7 [facility] Comment on above: Order Comment: Speci men Type: BLOOD SPECIMEN Ordering Facility: [facility] Address: [address] [place] [address] Performed By: #### 5 8410-2 #### [facility] CLIA [id number] [address] [place] [address] [place] Platelets (Bld) [#/Vol] 234 10*3/uL Normal 150-400 [facility] Comment on above: Order Comment: Speci men Type: BLOOD SPECIMEN Ordering Facility: [facility] Address: [address] [place] [address] Performed By: #### 5 8410-2 #### [facility] CLIA [id number] [address] [place] [address] [place] RBC (Bld) [#/Vol] 4.18 10*6/uL Normal 3.90-5.20 [facility] Comment on above: Order Comment: Speci men Type: BLOOD SPECIMEN Ordering Facility: [facility] Address: [address] [facility], [place] [address] Performed By: #### 5 8410-2 #### [facility] CLIA [id number] [address] [place] [address] [place] WBC (Bld) [#/Vol] 4.84 10*3/uL Normal 3.70-11.00 [facility] Comment on above: Order Comment: Speci men Type: BLOOD SPECIMEN Ordering Facility: [facility] Address: [facility] [facility], [place] [address] Performed By: #### 5 8410-2 #### [facility] CLIA [id number] [address] [place] [address] [place] Comprehensive metabolic 2000 panelon 07-02-2023 Albumin [Mass/Vol] 4.1 g/dL Normal 3.9-4.9 [facility] Comment on above: Order Comment: Speci men Type: BLOOD SPECIMEN Ordering Facility: [facility] Address: [address] [place] [address] Performed By: #### A NAIFR #### [facility] CLIA [id number] [address] [place] [address] [place] ALP [Catalytic activity/Vol] 166 U/L High 34-123 [facility] Comment on above: Order Comment: Speci men Type: BLOOD SPECIMEN Ordering Facility: [facility] Address: [address] [place] [address] Performed By: #### A NAIFR #### [facility] CLIA [id number] [address] [place] [address] [place] ALT [Catalytic activity/Vol] 13 U/L Normal 7-38 [facility] Comment on above: Order Comment: Speci men Type: BLOOD SPECIMEN Ordering Facility: [facility] Address: [address] [place] [address] Performed By: #### A NAIFR #### [facility] CLIA [id number] [address] [place] [address] [place] Anion gap [Moles/Vol] 12 mmol/L Normal 9-18 [facility] Comment on above: Order Comment: Speci men Type: BLOOD SPECIMEN Ordering Facility: [facility] Address: [address] [place] [address] Performed By: #### A NAIFR #### [facility] CLIA [id number] [address] [place] [address] [place] AST [Catalytic activity/Vol] 27 U/L Normal 13-35 [facility] Comment on above: Order Comment: Speci men Type: BLOOD SPECIMEN Ordering Facility: [facility] Address: [address] [place] [address] Performed By: #### A NAIFR #### [facility] CLIA [id number] [address] [place] [address] [place] Bilirubin [Mass/Vol] 0.2 mg/dL Normal 0.2-1.3 [facility] Comment on above: Order Comment: Speci men Type: BLOOD SPECIMEN Ordering Facility: [facility] Address: [address] [place] [address] Performed By: #### A NAIFR #### [facility] CLIA [id number] [address] [place] [address] [place] Calcium [Mass/Vol] 9.7 mg/dL Normal 8.5-10.2 [facility] Comment on above: Order Comment: Speci men Type: BLOOD SPECIMEN Ordering Facility: [facility] Address: [address] [place] [address] Performed By: #### A NAIFR #### [facility] CLIA [id number] [address] [place] [address] [place] Chloride [Moles/Vol] 109 mmol/L High 97-105 [facility] Comment on above: Order Comment: Speci men Type: BLOOD SPECIMEN Ordering Facility: [facility] Address: [address] [place] [address] Performed By: #### A NAIFR #### [facility] CLIA [id number] [address] [place] [address] [place] CO2 [Moles/Vol] 24 mmol/L Normal 22-30 [facility] Comment on above: Order Comment: Speci men Type: BLOOD SPECIMEN Ordering Facility: [facility] Address: [address] [place] [address] Performed By: #### A NAIFR #### [facility] CLIA [id number] [address] [place] [address] [place] Creatinine [Mass/Vol] 0.83 mg/dL Normal 0.58-0.96 [facility] Comment on above: Order Comment: Speci men Type: BLOOD SPECIMEN Ordering Facility: [facility] Address: [address] [place] [address] Performed By: #### A NAIFR #### [facility] CLIA [id number] [address] [place] [address] [place] Creatinine and Glomerular filtration rate.predicted panel (S/P/Bld) 81 mL/min/1.73m??? Normal >=60 [facility] Comment on above: Order Comment: Speci men Type: BLOOD SPECIMEN Ordering Facility: [facility] Address: [address] [place] [address] Result Comment: Rosalinda mated Glomerular Filtration Rate (eGFR) is calculated using the 2020 CKD-EPI creatinine equation. This equation utilizes serum creatinine, sex, and age as parameters. The creatinine assay has traceable calibration to isotope dilution-mass spectrometry. Refer to KDIGO guidelines for clinical interpretation. In patients with unstable renal function, e.g. those with acute kidney injury, the eGFR may not accurately reflect actual GFR. Performed By: #### A NAIFR #### [facility] CLIA [id number] [address] [place] [address] [place] Glucose [Mass/Vol] 103 mg/dL High 74-99 [facility] Comment on above: Order Comment: Speci natalie Type: BLOOD SPECIMEN Ordering Facility: [facility] Address: [address] [place] [address] Result Comment: The [place] [employer] (ADA) provides guidance for cutoff values for fasting glucose and random glucose. The ADA defines fasting as no caloric intake for at least 8 hours. Fasting plasma glucose results between 100 to 125 mg/dL indicate increased risk for diabetes (prediabetes). Fasting plasma glucose results greater than or equal to 126 mg/dL meet the criteria for diagnosis of diabetes. In the absence of unequivocal hyperglycemia, results should be confirmed by repeat testing. In a patient with classic symptoms of hyperglycemia or hyperglycemic crisis, random plasma glucose results greater than or equal to 200 mg/dL meet the criteria for diagnosis of diabetes. Reference: Standards of Medical Care in Diabetes 2016, [place] [employer]. Diabetes Care. 2016.39(Suppl 1). Performed By: #### A NAIFR #### [facility] CLIA [id number] [address] [place] [address] [place] Potassium [Moles/Vol] 3.9 mmol/L Normal 3.7-5.1 [facility] Comment on above: Order Comment: Roseanne estrada Type: BLOOD SPECIMEN Ordering Facility: [facility] Address: [address] [place] [address] Performed By: #### A NAIFR #### [facility] CLIA [id number] [address] [place] [address] [place] Protein [Mass/Vol] 5.7 g/dL Low 6.3-8.0 [facility] Comment on above: Order Comment: Roseanne estrada Type: BLOOD SPECIMEN Ordering Facility: [facility] Address: [address] [place] [address] Performed By: #### A NAIFR #### [facility] CLIA [id number] [address] [place] [address] [place] Sodium [Moles/Vol] 145 mmol/L High 136-144 [facility] Comment on above: Order Comment: Speci men Type: BLOOD SPECIMEN Ordering Facility: [facility] Address: [address] [place] [address] Performed By: #### A NAIFR #### [facility] CLIA [id number] [address] [place] [address] [place] Urea nitrogen [Mass/Vol] 8 mg/dL Normal 7-21 [facility] Comment on above: Order Comment: Speci men Type: BLOOD SPECIMEN Ordering Facility: [facility] Address: [address] [place] [address] Performed By: #### A NAIFR #### [facility] CLIA [id number] [address] [place] [address] [place] Lipid 1996 panelon 4 Cholesterol [Mass/Vol] 156 mg/dL Normal <200 [facility] Comment on above: Order Comment: Speci men Type: BLOOD SPECIMEN Ordering Facility: [facility] Address: [address] [place] [address] Result Comment: <200 mg/dL, Desirable 200-239 mg/dL, Borderline high >239 mg/dL, High Performed By: #### A NAIFR #### [facility] CLIA [id number] [address] [place] [address] [place] Cholesterol in HDL [Mass/Vol] 36 mg/dL Low >39 [facility] Comment on above: Order Comment: Speci men Type: BLOOD SPECIMEN Ordering Facility: [facility] Address: [address] [place] [address] Result Comment: 40-5 9 mg/dL, Acceptable >59 mg/dL, High: Negative risk factor for coronary heart disease <40 mg/dL, Low: Positive risk factor for coronary heart disease Performed By: #### A NAIFR #### [facility] CLIA [id number] [address] [place] [address] [place] Cholesterol in LDL [Mass/Vol] 90 mg/dL Normal <100 [facility] Comment on above: Order Comment: Roseanne estrada Type: BLOOD SPECIMEN Ordering Facility: [facility] Address: [address] [place] [address] Result Comment: <100 mg/dL, Optimal 100-129 mg/dL, Near optimal/above optimal 130-159 mg/dL, Borderline high 160-189 mg/dL, High >189 mg/dL, Very high Secondary prevention optimal LDL Cholesterol levels are recommended to be < 70 mg/dL Performed By: #### A NAIFR #### [facility] CLIA [id number] [address] [place] [address] [place] Cholesterol in LDL/Cholesterol in HDL [Mass ratio] 2.50 {ratio} Normal <2.54 [facility] Comment on above: Order Comment: Roseanne estrada Type: BLOOD SPECIMEN Ordering Facility: [facility] Address: [address] [place] [address] Result Comment: Rosalee perez: 1. National Cholesterol Education Program ATP III Guideline At-A-Glance Quick Desk Reference: National Heart, Lung, and Blood [place]. National Institutes of Health. 2001: NIH Publication No. 01-3305. 2. An International Atherosclerosis Society position paper: global recommendations for the management of dyslipidemia: executive summary, Atherosclerosis. 2014: 232(2):410-413. Performed By: #### A NAIFR #### [facility] CLIA [id number] [address] [place] [address] [place] Cholesterol in VLDL [Mass/Vol] 30 mg/dL High <30 [facility] Comment on above: Order Comment: Roseanne estrada Type: BLOOD SPECIMEN Ordering Facility: [facility] Address: [address] [place] [address] Performed By: #### A NAIFR #### [facility] CLIA [id number] [address] [place] [address] [place] Cholesterol non HDL [Mass/Vol] 120 mg/dL Normal <130 [facility] Comment on above: Order Comment: Roseanne estrada Type: BLOOD SPECIMEN Ordering Facility: [facility] Address: [address] [place] [address] Result Comment: <130 mg/dL, Optimal 130-159 mg/dL, Near optimal/above optimal 160-189 mg/dL, Borderline high 190-219 mg/dL, High >219 mg/dL, Very high Secondary prevention optimal non HDL Cholesterol levels are recommended to be <100 mg/dL Performed By: #### A NAIFR #### [facility] CLIA [id number] [address] [place] [address] [place] Cholesterol.total/Chol esterol in HDL [Mass ratio] 4.33 {ratio} Normal <5.10 [facility] Comment on above: Order Comment: Speci men Type: BLOOD SPECIMEN Ordering Facility: [facility] Address: [address] [place] [address] Performed By: #### A NAIFR #### [facility] CLIA [id number] [address] [place] [address] [place] FASTING TIME unknown Normal [facility] Comment on above: Order Comment: Speci men Type: BLOOD SPECIMEN Ordering Facility: [facility] Address: [address] [place] [address] Performed By: #### A NAIFR #### [facility] CLIA [id number] [address] [place] [address] [place] Triglyceride [Mass/Vol] 152 mg/dL High <150 [facility] Comment on above: Order Comment: Speci men Type: BLOOD SPECIMEN Ordering Facility: [facility] Address: [address] [place] [address] Result Comment: <150 mg/dL, Normal 150-199 mg/dL, Borderline high 200-499 mg/dL, High >499 mg/dL, Very high Performed By: #### A NAIFR #### [facility] CLIA [id number] [address] [place] [address] [place] Glucose Glucometer (BldC) [M ass/Vol]Ordered By: Jonny Marino on 04-23-2023 Glucose [Mass/Vol] 116 mg/dL 74-106 [facility] Comment on above: MANAGEMENT OF PATIEN T CARE PER NURSING PROTOCOL Basophil percentageOrdered B y: Ahmet Cotton on 02-28-2023 Basophil percentage 0 SEEN /hpf 0-5 [facility] Bilirubin Test strip Ql (U)O rdered By: Ahmet Cotton on 02-28-2023 Bilirubin Ql (U) Negative Negative [facility] Ketones Test strip Ql (U)Ord ered By: Ahmet Cotton on 02-28-2023 Ketones Ql (U) Negative Negative [facility] Mucus LM Ql (Urine sed)Order ed By: Ahemt Cotton on 02-28-2023 Mucus Ql (Urine sed) 0 SEEN /hpf [facility] Nitrite Test strip Ql (U)Ord ered By: Ahmet Cotton on 02-28-2023 Nitrite Ql (U) Negative Negative [facility] Protein Test strip Ql (U)Ord ered By: Ahmet Cotton on 02-28-2023 Protein Ql (U) 15 mg/dl Negative [facility] Squamous epithelial cells de tection in urine sediment by light microscopyOrdered By: Ahmet Cotton on 02-28-2023 Epithelial cells.squamous LM Ql (Urine sed) 0-5 SEEN /hpf 5-10 [facility] Urine blood detectionOrdered By: Ahmet Cotton on 02-28-2023 RBC Ql (U) Negative Negative [facility] RBC Ql (U) 0 SEEN /hpf 0-5 [facility] Urine clarityOrdered By: Gadiel Cotton on 02-28-2023 Clarity (U) Sl. Cloudy Clear [facility] Urine color determinationOrd ered By: Ahmet Cotton on 02-28-2023 Color (U) Yellow Yellow [facility] Urine glucose detectionOrder ed By: Ahmet Cotton on 02-28-2023 Glucose Ql (U) 50 mg/dl Normal [facility] Urine leukocyte esterase det ection by dipstickOrdered By: Ahmet Cotton on 02-28-2023 Leukocyte esterase Test strip Ql (U) Negative Negative [facility] Urine pHOrdered By: Ahmet Cotton on 02-28-2023 pH (U) 5.0 [pH] 5.0 - 8.0 [facility] Urine sediment bacteria coun t by microscopy (number/high power field)Ordered By: Ahmet Cotton on 02-28-2023 Bacteria LM.HPF (Urine sed) [#/Area] 0 /[HPF] None Seen [facility] Urine specific gravity measu rementOrdered By: Ahmet Cotton on 02-28-2023 Specific gravity (U) [Rel density] 1.020 1.002-1.030 [facility] Urobilinogen Auto test strip Ql (U)Ordered By: Ahmet Cotton on 02-28-2023 Urobilinogen Ql (U) Normal mg/dl Normal [facility] Absolute lymphocyte countOrd ered By: Aniceto Tillman on 01-01-2023 Lymphocytes Auto (Unsp spec) [#/Vol] 1.61 10*3/uL 0.83-4.51 [facility] Basophil percentageOrdered B y: Aniceto Tillman on 01-01-2023 Basophils/100 WBC (Bld) 0.5 % 0-1 [facility] Chloride [Moles/Vol] 109 mmol/L 98-107 [facility] Eosinophils/100 WBC (Bld) 7.2 % 0-5 [facility] Glucose [Mass/Vol] 112 mg/dL 74-106 [facility] Comment on above: Fasting Glucose resu lt from 100 to 125 mg/dL suggests IMPAIRED HOMEOSTASIS per A.D.A. criteria. Neutrophils (Bld) [#/Vol] 5.1 10*3/uL 2.0-7.7 [facility] Neutrophils/100 WBC (Bld) 63.6 % 47-70 [facility] Potassium [Moles/Vol] 3.6 mmol/L 3.5-5.1 [facility] Sodium [Moles/Vol] 140 mmol/L 136-145 [facility] WBC (Bld) [#/Vol] 8.0 10*3/uL 4.4-11.0 [facility] Blood erythrocytes count (nu mber/volume)Ordered By: Aniceto Tillman on 01-01-2023 RBC (Bld) [#/Vol] 4.32 10*6/uL 4.2-5.4 [facility] Blood hemoglobin measurement (mass/volume)Ordered By: Aniceto Tillman on 01-01-2023 Hemoglobin (Bld) [Mass/Vol] 12.6 g/dL 12.0-15.0 [facility] Blood lymphocytes/100 leukoc ytesOrdered By: Aniceto Tillman on 01-01-2023 Lymphocytes/100 WBC (Bld) 20.1 % 19-41 [facility] Blood monocytes/100 leukocyt esOrdered By: Aniceto Tillman on 01-01-2023 Monocytes/100 WBC (Bld) 8.2 % 0-10 [facility] Blood platelet mean volumeOr dered By: Aniceto Tillman on 01-01-2023 Platelet mean volume (Bld) [Entitic vol] 8.8 fL 6.2-12.0 [facility] Determination of erythrocyte mean corpuscular volume (MCV)Ordered By: Aniceto Tillman on 01-01-2023 MCV (RBC) [Entitic vol] 90.3 fL 81-99 [facility] Hematocrit Auto (Bld) [Volum e fraction]Ordered By: Aniceto Tillman on 01-01-2023 Hematocrit (Bld) [Volume fraction] 39.0 % 37-47 [facility] Laboratory - Chemistry and C hemistry - challengeOrdered By: Aniceto Tillman on 01-01-2023 CO2 [Moles/Vol] 24.0 mmol/L 21.0-32.0 [facility] Urea nitrogen/Creatinine [Mass ratio] 13.2 mg/mg 10-20 [facility] Laboratory - Hematology and Cell countsOrdered By: Aniceto Tillman on 01-01-2023 Erythrocyte distribution width (RBC) [Entitic vol] 44.4 fL 35.1-43.9 [facility] Erythrocyte distribution width (RBC) [Ratio] 13.3 % 11.6-14.6 [facility] Immature granulocytes/100 WBC (Bld) 0.400 % 0.0-0.9 [facility] Comment on above: IG% - Immature Granu locytes (promyelocytes, myelocytes and metamyelocytes) > 1% indicates that a LEFT SHIFT is Present. MCH (RBC) [Entitic mass] 29.2 pg 27.0-32.0 [facility] Nucleated RBC/100 WBC (Bld) [Ratio] 0 % 0-5 [facility] MCHC Auto (RBC) [Mass/Vol]Or dered By: Aniceto Tillman on 01-01-2023 MCHC (RBC) [Mass/Vol] 32.3 g/dL 32-36 [facility] No Panel InformationOrdered By: Aniceto Tillman on 01-01-2023 Estimated Creatinine Clearance Calc 54.42 ml/min [facility] Estimated GFR (MDRD) Amer 90 mL/min >60 [facility] Comment on above: GFR Calc Estimated GFR (MDRD) Non-Af Amer 74 mL/min >60 [facility] Comment on above: Non- GFR Calc Platelets bldOrdered By: Skyler Tillman on 01-01-2023 Platelets (Bld) [#/Vol] 215 10*3/uL 150-450 [facility] Serum or plasma calcium kallie urement (mass/volume)Ordered By: Aniceto Tillman on 01-01-2023 Calcium [Mass/Vol] 9.3 mg/dL 8.5-10.1 [facility] Serum or plasma creatinine m easurement (mass/volume)Ordered By: Aniceto Tillman on 01-01-2023 Creatinine [Mass/Vol] 0.84 mg/dL 0.55-1.02 [facility] Comment on above: The validity of the calculated GFR & GFRAA in patients over 70 years has not been determined. Clinical correlation is essential. Serum or plasma urea nitroge n measurement (mass/volume)Ordered By: Aniceto Tillman on 01-01-2023 Urea nitrogen [Mass/Vol] 11 mg/dL 7-18 [facility] Thin prep Papanicolaou smear with manual screeningOrdered By: Aniceto Tillman on 01-01-2023 Thin prep Papanicolaou smear with manual screening 7 5-15 [facility] Absolute lymphocyte countOrd ered By: Mehrdad Norris on 11-25-2022 Lymphocytes Auto (Unsp spec) [#/Vol] 1.35 10*3/uL 0.83-4.51 [facility] Basophil percentageOrdered B y: Mehrdad Norris on 11-25-2022 Basophils/100 WBC (Bld) 0.6 % 0-1 [facility] Chloride [Moles/Vol] 109 mmol/L 98-107 [facility] Eosinophils/100 WBC (Bld) 6.2 % 0-5 [facility] Glucose [Mass/Vol] 162 mg/dL 74-106 [facility] Comment on above: Fasting Glucose resu lt greater than or equal to 126 mg/dL suggests DIABETES MELLITUS per A.D.A. criteria. Neutrophils (Bld) [#/Vol] 3.1 10*3/uL 2.0-7.7 [facility] Neutrophils/100 WBC (Bld) 58.5 % 47-70 [facility] Potassium [Moles/Vol] 3.6 mmol/L 3.5-5.1 [facility] Sodium [Moles/Vol] 140 mmol/L 136-145 [facility] WBC (Bld) [#/Vol] 5.4 10*3/uL 4.4-11.0 [facility] Blood erythrocytes count (nu mber/volume)Ordered By: Mehrdad Norris on 11-25-2022 RBC (Bld) [#/Vol] 4.25 10*6/uL 4.2-5.4 [facility] Blood hemoglobin measurement (mass/volume)Ordered By: Mehrdad Norris on 11-25-2022 Hemoglobin (Bld) [Mass/Vol] 12.7 g/dL 12.0-15.0 [facility] Blood lymphocytes/100 leukoc ytesOrdered By: Mehrdad Norris on 11-25-2022 Lymphocytes/100 WBC (Bld) 25.2 % 19-41 [facility] Blood monocytes/100 leukocyt esOrdered By: Mehrdad Norris on 11-25-2022 Monocytes/100 WBC (Bld) 8.8 % 0-10 [facility] Blood platelet mean volumeOr dered By: Mehrdad Norris on 11-25-2022 Platelet mean volume (Bld) [Entitic vol] 8.8 fL 6.2-12.0 [facility] Determination of erythrocyte mean corpuscular volume (MCV)Ordered By: Mehrdad Norris on 11-25-2022 MCV (RBC) [Entitic vol] 88.2 fL 81-99 [facility] Hematocrit Auto (Bld) [Volum e fraction]Ordered By: Mehrdad Norris on 11-25-2022 Hematocrit (Bld) [Volume fraction] 37.5 % 37-47 [facility] Influenza virus A and B and SARS-CoV-2 (COVID-19) Ag panel - Upper respiratory specimOrdered By: Mehrdad oNrris on 11-25-2022 SARS-CoV-2 (COVID-19) RNA DONALDO+probe Ql (Resp) [facility] Laboratory - Chemistry and C hemistry - challengeOrdered By: Mehrdad Norris on 11-25-2022 CO2 [Moles/Vol] 28.0 mmol/L 21.0-32.0 [facility] Natriuretic peptide B (Bld) [Mass/Vol] 23.4 pg/mL 0-100 [facility] Urea nitrogen/Creatinine [Mass ratio] 9.1 mg/mg 10-20 [facility] Laboratory - Hematology and Cell countsOrdered By: Mehrdad Norris on 11-25-2022 Erythrocyte distribution width (RBC) [Entitic vol] 41.8 fL 35.1-43.9 [facility] Erythrocyte distribution width (RBC) [Ratio] 13.0 % 11.6-14.6 [facility] Immature granulocytes/100 WBC (Bld) 0.700 % 0.0-0.9 [facility] Comment on above: IG% - Immature Granu locytes (promyelocytes, myelocytes and metamyelocytes) > 1% indicates that a LEFT SHIFT is Present. MCH (RBC) [Entitic mass] 29.9 pg 27.0-32.0 [facility] Nucleated RBC/100 WBC (Bld) [Ratio] 0 % 0-5 [facility] MCHC Auto (RBC) [Mass/Vol]Or dered By: Mehrdad Norris on 11-25-2022 MCHC (RBC) [Mass/Vol] 33.9 g/dL 32-36 [facility] No Panel InformationOrdered By: Mehrdad Norris on 11-25-2022 Estimated Creatinine Clearance Calc 62.99 ml/min [facility] Estimated GFR (MDRD) Amer 98 mL/min >60 [facility] Comment on above: GFR Calc Estimated GFR (MDRD) Non-Af Amer 81 mL/min >60 [facility] Comment on above: Non- GFR Calc Platelets bldOrdered By: Shania Norris on 11-25-2022 Platelets (Bld) [#/Vol] 234 10*3/uL 150-450 [facility] Serum or plasma calcium kallie urement (mass/volume)Ordered By: Mehrdad Norris on 11-25-2022 Calcium [Mass/Vol] 8.8 mg/dL 8.5-10.1 [facility] Serum or plasma creatinine m easurement (mass/volume)Ordered By: Mehrdad Norris on 11-25-2022 Creatinine [Mass/Vol] 0.77 mg/dL 0.55-1.02 [facility] Comment on above: The validity of the calculated GFR & GFRAA in patients over 70 years has not been determined. Clinical correlation is essential. Serum or plasma urea nitroge n measurement (mass/volume)Ordered By: Mehrdad Norris on 11-25-2022 Urea nitrogen [Mass/Vol] 7 mg/dL 7-18 [facility] Thin prep Papanicolaou smear with manual screeningOrdered By: Mehrdad Norris on 11-25-2022 Thin prep Papanicolaou smear with manual screening 3 5-15 [facility] Erythrocyte sedimentation ra teOrdered By: Taylor Fields on 10-08-2022 ESR (Bld) [Velocity] 8 mm/h 0-30 [facility] Serum or plasma C reactive p rotein measurement (mass/volume)Ordered By: Taylor Fields on 10-08-2022 CRP [Mass/Vol] mg/L 0.0-3.0 [facility] Comment on above: C-Reactive Protein ( CRP) provides useful information for thediagnosis, therapy and monitoring of inflammatory processesand associated diseases. For the evaluation of Relative Riskfor Cardiovascular Disease, a High Sensitivity CRP (HSCRP)should be ordered. Serum or plasma uric acid me asurement (mass/volume)Ordered By: Taylor Fields on 10-08-2022 Urate [Mass/Vol] 3.7 mg/dL 2.6-6.0 [facility] Comment on above: The drugs N-Acetylcy steine and Metamizole may falsely depress this assay. Serum rheumatoid factor dete ctionOrdered By: Taylor Fields on 10-08-2022 Rheumatoid factor Ql (S) 15.0 IU/mL <15 [facility] Absolute lymphocyte countOrd ered By: Dr. Drake on 06-14-2022 Lymphocytes Auto (Unsp spec) [#/Vol] 1.38 10*3/uL 0.83-4.51 [facility] Basophil percentageOrdered B y: Dr. Drake on 06-14-2022 Basophils/100 WBC (Bld) 0.7 % 0-1 [facility] Chloride [Moles/Vol] 108 mmol/L 98-107 [facility] Eosinophils/100 WBC (Bld) 7.9 % 0-5 [facility] Glucose [Mass/Vol] 172 mg/dL 74-106 [facility] Comment on above: Fasting Glucose resu lt greater than or equal to 126 mg/dL suggests DIABETES MELLITUS per A.D.A. criteria. Neutrophils (Bld) [#/Vol] 2.0 10*3/uL 2.0-7.7 [facility] Neutrophils/100 WBC (Bld) 48.0 % 47-70 [facility] Potassium [Moles/Vol] 3.7 mmol/L 3.5-5.1 [facility] Sodium [Moles/Vol] 142 mmol/L 136-145 [facility] WBC (Bld) [#/Vol] 4.2 10*3/uL 4.4-11.0 [facility] Basophil percentage 0-5 SEEN /hpf 0-5 [facility] Bilirubin Test strip Ql (U)O rdered By: Dr. Drake on 06-14-2022 Bilirubin Ql (U) Negative Negative [facility] Blood erythrocytes count (nu mber/volume)Ordered By: Dr. Drake on 06-14-2022 RBC (Bld) [#/Vol] 4.15 10*6/uL 4.2-5.4 [facility] Blood hemoglobin measurement (mass/volume)Ordered By: Dr. Drake on 06-14-2022 Hemoglobin (Bld) [Mass/Vol] 11.6 g/dL 12.0-15.0 [facility] Blood lymphocytes/100 leukoc ytesOrdered By: Dr. Drake on 06-14-2022 Lymphocytes/100 WBC (Bld) 33.1 % 19-41 [facility] Blood monocytes/100 leukocyt esOrdered By: Dr. Drake on 06-14-2022 Monocytes/100 WBC (Bld) 9.8 % 0-10 [facility] Blood platelet mean volumeOr dered By: Dr. Drake on 06-14-2022 Platelet mean volume (Bld) [Entitic vol] 9.0 fL 6.2-12.0 [facility] Determination of erythrocyte mean corpuscular volume (MCV)Ordered By: Dr. Drake on 06-14-2022 MCV (RBC) [Entitic vol] 88.2 fL 81-99 [facility] Hematocrit Auto (Bld) [Volum e fraction]Ordered By: Dr. Drake on 06-14-2022 Hematocrit (Bld) [Volume fraction] 36.6 % 37-47 [facility] Ketones Test strip Ql (U)Ord ered By: Dr. Drake on 06-14-2022 Ketones Ql (U) Negative Negative [facility] Laboratory - Chemistry and C hemistry - challengeOrdered By: Dr. Drake on 06-14-2022 CO2 [Moles/Vol] 24.0 mmol/L 21.0-32.0 [facility] Urea nitrogen/Creatinine [Mass ratio] 11.3 mg/mg 10-20 [facility] Laboratory - Hematology and Cell countsOrdered By: Dr. Drake on 06-14-2022 Erythrocyte distribution width (RBC) [Entitic vol] 45.6 fL 35.1-43.9 [facility] Erythrocyte distribution width (RBC) [Ratio] 14.1 % 11.6-14.6 [facility] Immature granulocytes/100 WBC (Bld) 0.500 % 0.0-0.9 [facility] Comment on above: IG% - Immature Granu locytes (promyelocytes, myelocytes and metamyelocytes) > 1% indicates that a LEFT SHIFT is Present. MCH (RBC) [Entitic mass] 28.0 pg 27.0-32.0 [facility] Nucleated RBC/100 WBC (Bld) [Ratio] 0 % 0-5 [facility] MCHC Auto (RBC) [Mass/Vol]Or dered By: Dr. Drake on 06-14-2022 MCHC (RBC) [Mass/Vol] 31.7 g/dL 32-36 [facility] Mucus LM Ql (Urine sed)Order ed By: Dr. Drake on 06-14-2022 Mucus Ql (Urine sed) 0 SEEN /hpf [facility] Nitrite Test strip Ql (U)Ord ered By: Dr. Drake on 06-14-2022 Nitrite Ql (U) Negative Negative [facility] No Panel InformationOrdered By: Dr. Drake on 06-14-2022 Estimated Creatinine Clearance Calc 45.75 ml/min [facility] Estimated GFR (MDRD) Amer 68 mL/min >60 [facility] Comment on above: GFR Calc Estimated GFR (MDRD) Non-Af Amer 57 mL/min >60 [facility] Comment on above: Non- GFR Calc Urine Transitional Epithelial Cells 0 SEEN /hpf 0-5 [facility] Platelets bldOrdered By: Dr. Drake on 06-14-2022 Platelets (Bld) [#/Vol] 193 10*3/uL 150-450 [facility] Protein Test strip Ql (U)Ord ered By: Dr. Drake on 06-14-2022 Protein Ql (U) Negative Negative [facility] Serum or plasma calcium kallie urement (mass/volume)Ordered By: Dr. Drake on 06-14-2022 Calcium [Mass/Vol] 8.8 mg/dL 8.5-10.1 [facility] Serum or plasma creatinine m easurement (mass/volume)Ordered By: Dr. Drake on 06-14-2022 Creatinine [Mass/Vol] 1.06 mg/dL 0.55-1.02 [facility] Comment on above: The validity of the calculated GFR & GFRAA in patients over 70 years has not been determined. Clinical correlation is essential. Serum or plasma urea nitroge n measurement (mass/volume)Ordered By: Dr. Drake on 06-14-2022 Urea nitrogen [Mass/Vol] 12 mg/dL 7-18 [facility] Squamous epithelial cells de tection in urine sediment by light microscopyOrdered By: Dr. Drake on 06-14-2022 Epithelial cells.squamous LM Ql (Urine sed) 10-25 SEEN /hpf 5-10 [facility] Thin prep Papanicolaou smear with manual screeningOrdered By: Dr. Drake on 06-14-2022 Thin prep Papanicolaou smear with manual screening 10 5-15 [facility] Urine blood detectionOrdered By: Dr. Drake on 06-14-2022 RBC Ql (U) Negative Negative [facility] RBC Ql (U) 0 SEEN /hpf 0-5 [facility] Urine clarityOrdered By: Dr. Drake on 06-14-2022 Clarity (U) Clear Clear [facility] Urine color determinationOrd ered By: Dr. Drake on 06-14-2022 Color (U) Yellow Yellow [facility] Urine glucose detectionOrder ed By: Dr. Drake on 06-14-2022 Glucose Ql (U) Negative Normal [facility] Urine leukocyte esterase det ection by dipstickOrdered By: Dr. Drake on 06-14-2022 Leukocyte esterase Test strip Ql (U) 1+ /ul Negative [facility] Urine pHOrdered By: Dr. Yinka stahl on 06-14-2022 pH (U) 5.0 [pH] 5.0 - 8.0 [facility] Urine sediment bacteria coun t by microscopy (number/high power field)Ordered By: Dr. Drake on 06-14-2022 Bacteria LM.HPF (Urine sed) [#/Area] 0 /[HPF] None Seen [facility] Urine specific gravity measu rementOrdered By: Dr. Drake on 06-14-2022 Specific gravity (U) [Rel density] 1.020 1.002-1.030 [facility] Urobilinogen Auto test strip Ql (U)Ordered By: Dr. Drake on 06-14-2022 Urobilinogen Ql (U) Normal mg/dl Normal [facility] No Panel InformationOrdered By: Dr. Zapien on 06-09-2022 Troponin I High Sensitivity 3 pg/mL 3.0-54.0 [facility] Comment on above: Please Note: New Nurys t Units and Gender Specific Reference Ranges. For more information see Policy Stat Procedure [facility] High Sensitivity Troponin (TNIH) and attachments. Absolute lymphocyte countOrd ered By: ED PROVIDER on 06-08-2022 Lymphocytes Auto (Unsp spec) [#/Vol] 1.54 10*3/uL 0.83-4.51 [facility] Basophil percentageOrdered B y: ED PROVIDER on 06-08-2022 Basophils/100 WBC (Bld) 0.7 % 0-1 [facility] Chloride [Moles/Vol] 106 mmol/L 98-107 [facility] Eosinophils/100 WBC (Bld) 8.5 % 0-5 [facility] Glucose [Mass/Vol] 215 mg/dL 74-106 [facility] Comment on above: Glucose result great er than or equal to 200 mg/dLsuggests DIABETES MELLITUS per A.D.A. criteria. Neutrophils (Bld) [#/Vol] 1.9 10*3/uL 2.0-7.7 [facility] Neutrophils/100 WBC (Bld) 44.4 % 47-70 [facility] Potassium [Moles/Vol] 3.7 mmol/L 3.5-5.1 [facility] Sodium [Moles/Vol] 139 mmol/L 136-145 [facility] WBC (Bld) [#/Vol] 4.2 10*3/uL 4.4-11.0 [facility] Blood erythrocytes count (nu mber/volume)Ordered By: ED PROVIDER on 06-08-2022 RBC (Bld) [#/Vol] 4.18 10*6/uL 4.2-5.4 [facility] Blood hemoglobin measurement (mass/volume)Ordered By: ED PROVIDER on 06-08-2022 Hemoglobin (Bld) [Mass/Vol] 11.7 g/dL 12.0-15.0 [facility] Blood lymphocytes/100 leukoc ytesOrdered By: ED PROVIDER on 06-08-2022 Lymphocytes/100 WBC (Bld) 36.4 % 19-41 [facility] Blood monocytes/100 leukocyt esOrdered By: ED PROVIDER on 06-08-2022 Monocytes/100 WBC (Bld) 9.5 % 0-10 [facility] Blood platelet mean volumeOr dered By: ED PROVIDER on 06-08-2022 Platelet mean volume (Bld) [Entitic vol] 9.4 fL 6.2-12.0 [facility] Determination of erythrocyte mean corpuscular volume (MCV)Ordered By: ED PROVIDER on 06-08-2022 MCV (RBC) [Entitic vol] 88.3 fL 81-99 [facility] Hematocrit Auto (Bld) [Volum e fraction]Ordered By: ED PROVIDER on 06-08-2022 Hematocrit (Bld) [Volume fraction] 36.9 % 37-47 [facility] Laboratory - Chemistry and C hemistry - challengeOrdered By: ED PROVIDER on 06-08-2022 CO2 [Moles/Vol] 27.0 mmol/L 21.0-32.0 [facility] Urea nitrogen/Creatinine [Mass ratio] 15.8 mg/mg 10-20 [facility] Laboratory - Hematology and Cell countsOrdered By: ED PROVIDER on 06-08-2022 Erythrocyte distribution width (RBC) [Entitic vol] 45.6 fL 35.1-43.9 [facility] Erythrocyte distribution width (RBC) [Ratio] 14.1 % 11.6-14.6 [facility] Immature granulocytes/100 WBC (Bld) 0.500 % 0.0-0.9 [facility] Comment on above: IG% - Immature Granu locytes (promyelocytes, myelocytes and metamyelocytes) > 1% indicates that a LEFT SHIFT is Present. MCH (RBC) [Entitic mass] 28.0 pg 27.0-32.0 [facility] Nucleated RBC/100 WBC (Bld) [Ratio] 0 % 0-5 [facility] MCHC Auto (RBC) [Mass/Vol]Or dered By: ED PROVIDER on 06-08-2022 MCHC (RBC) [Mass/Vol] 31.7 g/dL 32-36 [facility] No Panel InformationOrdered By: ED PROVIDER on 06-08-2022 Estimated Creatinine Clearance Calc 59.15 ml/min [facility] Estimated GFR (MDRD) Amer 91 mL/min >60 [facility] Comment on above: GFR Calc Estimated GFR (MDRD) Non-Af Amer 76 mL/min >60 [facility] Comment on above: Non- GFR Calc Platelets bldOrdered By: ED PROVIDER on 06-08-2022 Platelets (Bld) [#/Vol] 151 10*3/uL 150-450 [facility] Serum or plasma calcium kallie urement (mass/volume)Ordered By: ED PROVIDER on 06-08-2022 Calcium [Mass/Vol] 8.6 mg/dL 8.5-10.1 [facility] Serum or plasma creatinine m easurement (mass/volume)Ordered By: ED PROVIDER on 06-08-2022 Creatinine [Mass/Vol] 0.82 mg/dL 0.55-1.02 [facility] Comment on above: The validity of the calculated GFR & GFRAA in patients over 70 years has not been determined. Clinical correlation is essential. Serum or plasma urea nitroge n measurement (mass/volume)Ordered By: ED PROVIDER on 06-08-2022 Urea nitrogen [Mass/Vol] 13 mg/dL 7-18 [facility] Thin prep Papanicolaou smear with manual screeningOrdered By: ED PROVIDER on 06-08-2022 Thin prep Papanicolaou smear with manual screening 6 5-15 [facility] Absolute lymphocyte countOrd ered By: Dr. Norris on 03-28-2022 Lymphocytes Auto (Unsp spec) [#/Vol] 1.62 10*3/uL 0.83-4.51 [facility] Basophil percentageOrdered B y: Dr. Norris on 03-28-2022 Basophil percentage 0 SEEN /hpf 0-5 [facility] Basophils/100 WBC (Bld) 0.6 % 0-1 [facility] Bilirubin [Mass/Vol] 0.60 mg/dL 0.20-1.00 [facility] Comment on above: For patients on eltr ombopag therapy, use of Dimension Bryant TBIL is not recommended. Chloride [Moles/Vol] 108 mmol/L 98-107 [facility] Eosinophils/100 WBC (Bld) 6.2 % 0-5 [facility] Glucose [Mass/Vol] 175 mg/dL 74-106 [facility] Comment on above: Fasting Glucose resu lt greater than or equal to 126 mg/dL suggests DIABETES MELLITUS per A.D.A. criteria. Neutrophils (Bld) [#/Vol] 4.1 10*3/uL 2.0-7.7 [facility] Neutrophils/100 WBC (Bld) 59.4 % 47-70 [facility] Potassium [Moles/Vol] 3.6 mmol/L 3.5-5.1 [facility] Protein [Mass/Vol] 6.5 g/dL 6.4-8.2 [facility] Sodium [Moles/Vol] 141 mmol/L 136-145 [facility] WBC (Bld) [#/Vol] 7.0 10*3/uL 4.4-11.0 [facility] Bilirubin Test strip Ql (U)O rdered By: Dr. Norris on 03-28-2022 Bilirubin Ql (U) Negative Negative [facility] Blood erythrocytes count (nu mber/volume)Ordered By: Dr. Norris on 03-28-2022 RBC (Bld) [#/Vol] 4.41 10*6/uL 4.2-5.4 [facility] Blood hemoglobin measurement (mass/volume)Ordered By: Dr. Norris on 03-28-2022 Hemoglobin (Bld) [Mass/Vol] 12.2 g/dL 12.0-15.0 [facility] Blood lymphocytes/100 leukoc ytesOrdered By: Dr. Norris on 03-28-2022 Lymphocytes/100 WBC (Bld) 23.3 % 19-41 [facility] Blood monocytes/100 leukocyt esOrdered By: Dr. Norris on 03-28-2022 Monocytes/100 WBC (Bld) 9.5 % 0-10 [facility] Blood platelet mean volumeOr dered By: Dr. Norris on 03-28-2022 Platelet mean volume (Bld) [Entitic vol] 8.4 fL 6.2-12.0 [facility] Determination of erythrocyte mean corpuscular volume (MCV)Ordered By: Dr. Norris on 03-28-2022 MCV (RBC) [Entitic vol] 86.4 fL 81-99 [facility] Hematocrit Auto (Bld) [Volum e fraction]Ordered By: Dr. Norris on 03-28-2022 Hematocrit (Bld) [Volume fraction] 38.1 % 37-47 [facility] Ketones Test strip Ql (U)Ord ered By: Dr. Norris on 03-28-2022 Ketones Ql (U) Negative Negative [facility] Laboratory - Chemistry and C hemistry - challengeOrdered By: Dr. Norris on 03-28-2022 ALP [Catalytic activity/Vol] 114 U/L 45-117 [facility] ALT [Catalytic activity/Vol] 16 U/L 13-56 [facility] CO2 [Moles/Vol] 24.0 mmol/L 21.0-32.0 [facility] Globulin (S) [Mass/Vol] 2.8 g/dL 2.2-4.2 [facility] Urea nitrogen/Creatinine [Mass ratio] 8.5 mg/mg 10-20 [facility] Laboratory - Drug toxicology Ordered By: Dr. Norris on 03-28-2022 Amphetamines Ql (U) Positive <1000 ng/mL [facility] Benzodiazepines Ql (U) Negative < 200 ng/mL [facility] Cannabinoids Screen Ql (U) Negative < 50 ng/mL [facility] Cocaine Ql (U) Negative < 300 ng/mL [facility] Opiates Ql (U) Negative < 300 ng/mL [facility] Laboratory - Hematology and Cell countsOrdered By: Dr. Norris on 03-28-2022 Erythrocyte distribution width (RBC) [Entitic vol] 42.5 fL 35.1-43.9 [facility] Erythrocyte distribution width (RBC) [Ratio] 13.5 % 11.6-14.6 [facility] Immature granulocytes/100 WBC (Bld) 1.000 % 0.0-0.9 [facility] Comment on above: IG% - Immature Granu locytes (promyelocytes, myelocytes and metamyelocytes) > 1% indicates that a LEFT SHIFT is Present. MCH (RBC) [Entitic mass] 27.7 pg 27.0-32.0 [facility] Nucleated RBC/100 WBC (Bld) [Ratio] 0 % 0-5 [facility] MCHC Auto (RBC) [Mass/Vol]Or dered By: Dr. Norris on 03-28-2022 MCHC (RBC) [Mass/Vol] 32.0 g/dL 32-36 [facility] Mucus LM Ql (Urine sed)Order ed By: Dr. Norris on 03-28-2022 Mucus Ql (Urine sed) 0 SEEN /hpf [facility] Nitrite Test strip Ql (U)Ord ered By: Dr. Norris on 03-28-2022 Nitrite Ql (U) Negative Negative [facility] No Panel InformationOrdered By: Dr. Norris on 03-28-2022 MDMA (Ecstasy) Screen Positive < 500 ng/mL [facility] Urine Barbiturates Screen Negative < 200 ng/mL [facility] Urine Drug Screen Comment [facility] Comment on above: CONFIRMATORY TESTING FOR ALL POSITIVE URINE DRUG SCREENRESULTS WILL ONLY BE SENT OUT UPON PHYSICIAN ORDER. VISTA Urine Drug Screen methods provide only preliminaryanalytical test results. A more specific alternate chemicalmethod must be used in order to obtain a confirmedanalytical result. Gas chromatography/mass spectrometery(GC/MS) is the preferred confirmatory method. Clinicalconsideration and professional judgement should be appliedto any drug of abuse test result, particularly whenpreliminary positive results are used. URINE TCA TESTING MUST BE ORDERED SEPARATELY. USE TESTMNEMONIC: [facility] Urine Methadone Screen Negative < 300 ng/mL [facility] Estimated Creatinine Clearance Calc 46.86 ml/min [facility] Estimated GFR (MDRD) Amer 79 mL/min >60 [facility] Comment on above: GFR Calc Estimated GFR (MDRD) Non-Af Amer 65 mL/min >60 [facility] Comment on above: Non- GFR Calc Ethyl Alcohol Level < 3.0 mg/dL [facility] Comment on above: The serum:whole bloo d ethanol ratio is approximately 1.14and varies slightly with hematocrit. Medical Alcohol reference interval and critical value innon-tolerant individuals; 50 - 100 Impairment 100 Intoxication 100 - 250 Severe Poisoning 250 - 400 Deep/possible fatal coma Thyroid Stimulating Hormone (TSH) 0.50 uIU/mL 0.358-3.74 [facility] Troponin I High Sensitivity 6 pg/mL 3.0-54.0 [facility] Comment on above: Please Note: New Nurys t Units and Gender Specific Reference Ranges. For more information see Policy Stat Procedure Bryant High Sensitivity Troponin (TNIH) and attachments. Platelets bldOrdered By: Dr. Norris on 03-28-2022 Platelets (Bld) [#/Vol] 212 10*3/uL 150-450 [facility] Protein Test strip Ql (U)Ord ered By: Dr. Norris on 03-28-2022 Protein Ql (U) Negative Negative [facility] Serum or plasma albumin kallie urement (mass/volume)Ordered By: Dr. Norris on 03-28-2022 Albumin [Mass/Vol] 3.7 g/dL 3.2-5.0 [facility] Serum or plasma albumin/glob ulin mass ratioOrdered By: Dr. Norris on 03-28-2022 Albumin/Globulin [Mass ratio] 1.3 {ratio} 0.9-2.4 [facility] Serum or plasma calcium kallie urement (mass/volume)Ordered By: Dr. Norris on 03-28-2022 Calcium [Mass/Vol] 8.9 mg/dL 8.5-10.1 [facility] Serum or plasma creatinine m easurement (mass/volume)Ordered By: Dr. Norris on 03-28-2022 Creatinine [Mass/Vol] 0.94 mg/dL 0.55-1.02 [facility] Comment on above: The validity of the calculated GFR & GFRAA in patients over 70 years has not been determined. Clinical correlation is essential. Serum or plasma urea nitroge n measurement (mass/volume)Ordered By: Dr. Norris on 03-28-2022 Urea nitrogen [Mass/Vol] 8 mg/dL 7-18 [facility] Squamous epithelial cells de tection in urine sediment by light microscopyOrdered By: Dr. Norris on 03-28-2022 Epithelial cells.squamous LM Ql (Urine sed) 0-5 SEEN /hpf 5-10 [facility] Thin prep Papanicolaou smear with manual screeningOrdered By: Dr. Norris on 03-28-2022 Thin prep Papanicolaou smear with manual screening 15 U/L 15-37 [facility] Thin prep Papanicolaou smear with manual screening 9 5-15 [facility] Urine blood detectionOrdered By: Dr. Norris on 03-28-2022 RBC Ql (U) Negative Negative [facility] RBC Ql (U) 0 SEEN /hpf 0-5 [facility] Urine clarityOrdered By: Dr. Norris on 03-28-2022 Clarity (U) Clear Clear [facility] Urine color determinationOrd ered By: Dr. Norris on 03-28-2022 Color (U) Straw Yellow [facility] Urine glucose detectionOrder ed By: Dr. Norris on 03-28-2022 Glucose Ql (U) Normal mg/dl Normal [facility] Urine leukocyte esterase det ection by dipstickOrdered By: Dr. Norris on 03-28-2022 Leukocyte esterase Test strip Ql (U) Negative Negative [facility] Urine pHOrdered By: Dr. Clari barnard on 03-28-2022 pH (U) 6.0 [pH] 5.0 - 8.0 [facility] Urine phencyclidine (PCP) de tectionOrdered By: Dr. Norris on 03-28-2022 Phencyclidine Ql (U) Negative < 25 ng/mL [facility] Urine sediment bacteria coun t by microscopy (number/high power field)Ordered By: Dr. Norris on 03-28-2022 Bacteria LM.HPF (Urine sed) [#/Area] 0 /[HPF] None Seen [facility] Urine specific gravity measu rementOrdered By: Dr. Norris on 03-28-2022 Specific gravity (U) [Rel density] 1.010 1.002-1.030 [facility] Urobilinogen Auto test strip Ql (U)Ordered By: Dr. Norris on 03-28-2022 Urobilinogen Ql (U) Normal mg/dl Normal [facility] Laboratory - Microbiology an d Antimicrobial susceptibilityOrdered By: Dr. Quiroz on 03-12-2022 Bacteria identified Cx Nom (Bld) No growth in 5 days. [facility] Absolute lymphocyte countOrd ered By: Dr. Quiroz on 03-07-2022 Lymphocytes Auto (Unsp spec) [#/Vol] 0.52 10*3/uL 0.83-4.51 [facility] Basophil percentageOrdered B y: Dr. Quiroz on 03-07-2022 Basophil percentage 3.4 mg/dL 2.5-4.9 [facility] Basophils/100 WBC (Bld) 0.2 % 0-1 [facility] Chloride [Moles/Vol] 106 mmol/L 98-107 [facility] Eosinophils/100 WBC (Bld) 0.2 % 0-5 [facility] Glucose [Mass/Vol] 237 mg/dL 74-106 [facility] Comment on above: Glucose result great er than or equal to 200 mg/dLsuggests DIABETES MELLITUS per A.D.A. criteria. Neutrophils (Bld) [#/Vol] 4.1 10*3/uL 2.0-7.7 [facility] Neutrophils/100 WBC (Bld) 84.3 % 47-70 [facility] Potassium [Moles/Vol] 4.1 mmol/L 3.5-5.1 [facility] Sodium [Moles/Vol] 138 mmol/L 136-145 [facility] WBC (Bld) [#/Vol] 4.9 10*3/uL 4.4-11.0 [facility] Blood erythrocytes count (nu mber/volume)Ordered By: Dr. Quiroz on 03-07-2022 RBC (Bld) [#/Vol] 4.15 10*6/uL 4.2-5.4 [facility] Blood hemoglobin measurement (mass/volume)Ordered By: Dr. Quiroz on 03-07-2022 Hemoglobin (Bld) [Mass/Vol] 11.4 g/dL 12.0-15.0 [facility] Blood lymphocytes/100 leukoc ytesOrdered By: Dr. Quiroz on 03-07-2022 Lymphocytes/100 WBC (Bld) 10.6 % 19-41 [facility] Blood monocytes/100 leukocyt esOrdered By: Dr. Quiroz on 03-07-2022 Monocytes/100 WBC (Bld) 2.5 % 0-10 [facility] Blood platelet mean volumeOr dered By: Dr. Quiroz on 03-07-2022 Platelet mean volume (Bld) [Entitic vol] 8.7 fL 6.2-12.0 [facility] Determination of erythrocyte mean corpuscular volume (MCV)Ordered By: Dr. Quiroz on 03-07-2022 MCV (RBC) [Entitic vol] 85.3 fL 81-99 [facility] Glucose Glucometer (BldC) [M ass/Vol]Ordered By: Dr. Arndt on 03-07-2022 Glucose [Mass/Vol] 340 mg/dL 74-106 [facility] Comment on above: MANAGEMENT OF PATIEN T CARE PER NURSING PROTOCOL Hematocrit Auto (Bld) [Volum e fraction]Ordered By: Dr. Quiroz on 03-07-2022 Hematocrit (Bld) [Volume fraction] 35.4 % 37-47 [facility] Laboratory - Chemistry and C hemistry - challengeOrdered By: Dr. Quiroz on 03-07-2022 CO2 [Moles/Vol] 24.0 mmol/L 21.0-32.0 [facility] Magnesium [Mass/Vol] 2.1 mg/dL 1.6-2.6 [facility] Urea nitrogen/Creatinine [Mass ratio] 12.2 mg/mg 03-07 [facility] Laboratory - Hematology and Cell countsOrdered By: Dr. Quiroz on 03-07-2022 Erythrocyte distribution width (RBC) [Entitic vol] 42.1 fL 35.1-43.9 [facility] Erythrocyte distribution width (RBC) [Ratio] 13.5 % 11.6-14.6 [facility] Immature granulocytes/100 WBC (Bld) 2.200 % 0.0-0.9 [facility] Comment on above: IG% - Immature Granu locytes (promyelocytes, myelocytes and metamyelocytes) > 1% indicates that a LEFT SHIFT is Present. MCH (RBC) [Entitic mass] 27.5 pg 27.0-32.0 [facility] Nucleated RBC/100 WBC (Bld) [Ratio] 0 % 0-5 [facility] Laboratory - Microbiology an d Antimicrobial susceptibilityOrdered By: Dr. Quiroz on 03-07-2022 SARS-CoV-2 (COVID-19) RNA DONALDO+probe Ql (Unsp spec) Detected Not Detect [facility] Comment on above: RESULTS CALLED TO Yajaira HARRELL RN MS3 03/07/22 0412 Maico Strong.REPORT READ BACK BY SAME.Normal Reference Range: Not DetectedMethod:(RT-PCR) real-time reverse transcriptase PCRLuminex FRANKLIN Instrument*The Food and Drug Administration (FDA) has issued an Emergency Use Authorization (EAU) for the FRANKLIN SARS-CoV-2 Assay for the rapid detection of the virus that causes COVID-19. This test has been validated, but the FDAs independent review of this validation is pending.*Negative results do not preclude infection and should not be used as the sole basis for treatment or patient management. Optimum specimen types and timing for peak viral levels during infections caused by SARS-CoV-2 have not been determined. Collection of multiple specimens from the same patient may be necessary to detect the virus. The possibility of a false negative result should be considered if the patient has clinical presentation or has had recent exposure. MCHC Auto (RBC) [Mass/Vol]Or dered By: Dr. Quiroz on 03-07-2022 MCHC (RBC) [Mass/Vol] 32.2 g/dL 32-36 [facility] Comment on above: Delta: 30.6 on 03/06-1550 No Panel InformationOrdered By: Dr. Quiroz on 03-07-2022 Estimated Creatinine Clearance Calc 51.41 ml/min [facility] Estimated GFR (MDRD) Amer 83 mL/min >60 [facility] Comment on above: GFR Calc Estimated GFR (MDRD) Non-Af Amer 68 mL/min >60 [facility] Comment on above: Non- GFR Calc Streptococcus pneumoniae Antigen (M [facility] Platelets bldOrdered By: Dr. Quiroz on 03-07-2022 Platelets (Bld) [#/Vol] 169 10*3/uL 150-450 [facility] Serum or plasma calcium kallie urement (mass/volume)Ordered By: Dr. Quiroz on 03-07-2022 Calcium [Mass/Vol] 8.6 mg/dL 8.5-10.1 [facility] Serum or plasma creatinine m easurement (mass/volume)Ordered By: Dr. Quiroz on 03-07-2022 Creatinine [Mass/Vol] 0.90 mg/dL 0.55-1.02 [facility] Comment on above: The validity of the calculated GFR & GFRAA in patients over 70 years has not been determined. Clinical correlation is essential. Serum or plasma urea nitroge n measurement (mass/volume)Ordered By: Dr. Quiroz on 03-07-2022 Urea nitrogen [Mass/Vol] 11 mg/dL 7-18 [facility] Thin prep Papanicolaou smear with manual screeningOrdered By: Dr. Quiroz on 03-07-2022 Thin prep Papanicolaou smear with manual screening 8 5-15 [facility] Absolute lymphocyte counton 03-06-2022 Lymphocytes Auto (Unsp spec) [#/Vol] 0.85 10*3/uL 0.83-4.51 [facility] Work Phone: Basophil percentageOrdered B y: Dr. Quiroz on 03-06-2022 Lactate [Moles/Vol] 1.8 mmol/L 0.4-2.0 [facility] Bilirubin [Mass/Vol] 0.40 mg/dL 0.20-1.00 [facility] Comment on above: For patients on eltr ombopag therapy, use of Dimension Bryant TBIL is not recommended. Protein [Mass/Vol] 7.3 g/dL 6.4-8.2 [facility] Basophil percentageon 2021 Basophils/100 WBC (Bld) 0.5 % 0-1 [facility] Work Phone: Chloride [Moles/Vol] 108 mmol/L 98-107 [facility] Work Phone: Eosinophils/100 WBC (Bld) 9.4 % 0-5 [facility] Work Phone: Glucose [Mass/Vol] 176 mg/dL 74-106 [facility] Work Phone: [phone] Comment on above: Fasting Glucose resu lt greater than or equal to 126 mg/dL suggests DIABETES MELLITUS per A.D.A. criteria. Neutrophils (Bld) [#/Vol] 5.4 10*3/uL 2.0-7.7 [facility] Work Phone: Neutrophils/100 WBC (Bld) 69.1 % 47-70 [facility] Work Phone: Potassium [Moles/Vol] 4.2 mmol/L 3.5-5.1 [facility] Work Phone: Comment on above: Moderate Hemolysis, Result may be falsely increased. Sodium [Moles/Vol] 142 mmol/L 136-145 [facility] Work Phone: WBC (Bld) [#/Vol] 7.8 10*3/uL 4.4-11.0 [facility] Work Phone: Blood erythrocytes count (nu mber/volume)on 03-06-2022 RBC (Bld) [#/Vol] 4.57 10*6/uL 4.2-5.4 [facility] Work Phone: Blood hemoglobin measurement (mass/volume)on 03-06-2022 Hemoglobin (Bld) [Mass/Vol] 12.4 g/dL 12.0-15.0 [facility] Work Phone: Blood lymphocytes/100 leukoc yteson 03-06-2022 Lymphocytes/100 WBC (Bld) 10.9 % 19-41 [facility] Work Phone: Blood monocytes/100 leukocyt eson 03-06-2022 Monocytes/100 WBC (Bld) 8.9 % 0-10 [facility] Work Phone: [phone] Blood platelet mean volumeon 03-06-2022 Platelet mean volume (Bld) [Entitic vol] 9.4 fL 6.2-12.0 [facility] Work Phone: Determination of erythrocyte mean corpuscular volume (MCV)on 03-06-2022 MCV (RBC) [Entitic vol] 88.6 fL 81-99 [facility] Work Phone: Direct bilirubinOrdered By: Dr. Quiroz on 03-06-2022 Bilirubin.direct [Mass/Vol] 0.06 mg/dL 0.00-0.30 [facility] Hematocrit Auto (Bld) [Volum e fraction]on 03-06-2022 Hematocrit (Bld) [Volume fraction] 40.5 % 37-47 [facility] Work Phone: INR in Blood by Coagulation assayOrdered By: Dr. Quiroz on 03-06-2022 INR Coag (Bld) [Relative time] 0.9 {INR} [facility] Influenza virus A and B and SARS-CoV-2 (COVID-19) Ag panel - Upper respiratory specimOrdered By: Dr. Valiente on 03-06-2022 SARS-CoV-2 & FLU Antigen (Rapid) SARS-CoV-2 (COVID 19) [facility] Laboratory - Chemistry and C hemistry - challengeOrdered By: Dr. Quiroz on 03-06-2022 ALP [Catalytic activity/Vol] 175 U/L 45-117 [facility] ALT [Catalytic activity/Vol] 17 U/L 13-56 [facility] CK [Catalytic activity/Vol] 165 U/L 26-192 [facility] Comment on above: Moderate Hemolysis, Result may be falsely increased. Globulin (S) [Mass/Vol] 3.5 g/dL 2.2-4.2 [facility] Laboratory - Chemistry and C hemistry - challengeon 03-06-2022 CO2 [Moles/Vol] 28.0 mmol/L 21.0-32.0 [facility] Work Phone: Urea nitrogen/Creatinine [Mass ratio] 6.9 mg/mg 10-20 [facility] Work Phone: Laboratory - CoagulationOrde red By: Dr. Quiroz on 03-06-2022 PT Coag (PPP) [Time] 12.0 s 11.7-14.9 [facility] Laboratory - Hematology and Cell countson 03-06-2022 Erythrocyte distribution width (RBC) [Entitic vol] 44.4 fL 35.1-43.9 [facility] Work Phone: Erythrocyte distribution width (RBC) [Ratio] 13.8 % 11.6-14.6 [facility] Work Phone: Immature granulocytes/100 WBC (Bld) 1.200 % 0.0-0.9 [facility] Work Phone: Comment on above: IG% - Immature Granu locytes (promyelocytes, myelocytes and metamyelocytes) > 1% indicates that a LEFT SHIFT is Present. MCH (RBC) [Entitic mass] 27.1 pg 27.0-32.0 [facility] Work Phone: [phone] Nucleated RBC/100 WBC (Bld) [Ratio] 0 % 0-5 [facility] Work Phone: MCHC Auto (RBC) [Mass/Vol]on 03-06-2022 MCHC (RBC) [Mass/Vol] 30.6 g/dL 32-36 [facility] Work Phone: No Panel InformationOrdered By: Dr. Quiroz on 03-06-2022 Methicillin-Resist S.aureus DNA PCR Negative Negative [facility] D-Dimer Quantitative (PE/DVT) 0.52 FEU/ug/m 0.27-0.49 [facility] Comment on above: D-Dimer ELEVATED (>0 .49): Additional studies and clinicalassessments are indicated to conclude diagnosis of:Deep Vein Thrombosis (DVT) or Pulmonary Embolism (PE)CRITICAL VALUE VERIFIED. CALLED TO [id number]/[id number] 1908 [place].RESULTS READ BACK BY SAME . Fibrinogen 435 mg/dl 203-444 [facility] No Panel Informationon 03-06 Estimated Creatinine Clearance Calc 47.55 ml/min [facility] Work Phone: Estimated GFR (MDRD) Amer 72 mL/min >60 [facility] Work Phone: Comment on above: GFR Calc Estimated GFR (MDRD) Non-Af Amer 59 mL/min >60 [facility] Work Phone: Comment on above: Non- GFR Calc Platelets bldon 03-06-2022 Platelets (Bld) [#/Vol] 199 10*3/uL 150-450 [facility] Work Phone: Serum or plasma C reactive p rotein measurement (mass/volume)Ordered By: Dr. Quiroz on 03-06-2022 CRP [Mass/Vol] 63.60 mg/L 0.0-3.0 [facility] Comment on above: C-Reactive Protein ( CRP) provides useful information for thediagnosis, therapy and monitoring of inflammatory processesand associated diseases. For the evaluation of Relative Riskfor Cardiovascular Disease, a High Sensitivity CRP (HSCRP)should be ordered. Serum or plasma albumin kallie urement (mass/volume)Ordered By: Dr. Quiroz on 03-06-2022 Albumin [Mass/Vol] 3.8 g/dL 3.2-5.0 [facility] Serum or plasma calcium kallie urement (mass/volume)on 03-06-2022 Calcium [Mass/Vol] 9.2 mg/dL 8.5-10.1 [facility] Work Phone: Serum or plasma creatinine m easurement (mass/volume)on 03-06-2022 Creatinine [Mass/Vol] 1.02 mg/dL 0.55-1.02 [facility] Work Phone: Comment on above: The validity of the calculated GFR & GFRAA in patients over 70 years has not been determined. Clinical correlation is essential. Serum or plasma urea nitroge n measurement (mass/volume)on 03-06-2022 Urea nitrogen [Mass/Vol] 7 mg/dL 7-18 [facility] Work Phone: Serum procalcitonin measurem entOrdered By: Dr. Quiroz on 03-06-2022 Procalcitonin [Mass/Vol] 0.08 ng/mL 0.00-0.09 [facility] Comment on above: A procalcitonin (PCT ) level above 2.0 ng/mL on the first day of ICU admission is associated with a high risk for progression to severe sepsis and/or septic shock. A PCT level below 0.5 ng/mL on the first day of ICU admission is associated with a low risk for progression to severe and/or septic shock. Note: Concentrations <0.5 ng/mL do not exclude an infection on account of localized infections (without systemic signs) which can be associated with such low concentrations, or a systemic infection in its initial stages (<6 hours). Furthermore, increased procalcitonin can occur without infection. PCT concentrations between 0.5 and 2.0 ng/mL should be interpreted taking into account the patient's history. It is recommended to retest PCT within 6-24 hours if any concentrations <2 ng/mL are obtained. Thin prep Papanicolaou smear with manual screeningon 03-06-2022 Thin prep Papanicolaou smear with manual screening 6 5-15 [facility] Work Phone: Thin prep Papanicolaou smear with manual screeningOrdered By: Dr. Quiroz on 03-06-2022 Thin prep Papanicolaou smear with manual screening 31 U/L 15-37 [facility] Comment on above: Moderate Hemolysis, Result may be falsely increased. Thin prep Papanicolaou smear with manual screening 408 U/L 84-246 [facility] Comment on above: Moderate Hemolysis, Result may be falsely increased. Absolute lymphocyte countOrd ered By: Dr. Drake on 02-21-2022 Lymphocytes Auto (Unsp spec) [#/Vol] 1.23 10*3/uL 0.83-4.51 [facility] Basophil percentageOrdered B y: Dr. Drake on 02-21-2022 Basophils/100 WBC (Bld) 0.8 % 0-1 [facility] Chloride [Moles/Vol] 107 mmol/L 98-107 [facility] Eosinophils/100 WBC (Bld) 15.0 % 0-5 [facility] Glucose [Mass/Vol] 92 mg/dL 74-106 [facility] Neutrophils (Bld) [#/Vol] 3.8 10*3/uL 2.0-7.7 [facility] Neutrophils/100 WBC (Bld) 57.5 % 47-70 [facility] Potassium [Moles/Vol] 4.0 mmol/L 3.5-5.1 [facility] Sodium [Moles/Vol] 142 mmol/L 136-145 [facility] WBC (Bld) [#/Vol] 6.5 10*3/uL 4.4-11.0 [facility] Blood erythrocytes count (nu mber/volume)Ordered By: Dr. Drake on 02-21-2022 RBC (Bld) [#/Vol] 4.62 10*6/uL 4.2-5.4 [facility] Blood hemoglobin measurement (mass/volume)Ordered By: Dr. Drake on 02-21-2022 Hemoglobin (Bld) [Mass/Vol] 12.8 g/dL 12.0-15.0 [facility] Blood lymphocytes/100 leukoc ytesOrdered By: Dr. Drake on 02-21-2022 Lymphocytes/100 WBC (Bld) 18.9 % 19-41 [facility] Blood monocytes/100 leukocyt esOrdered By: Dr. Drake on 02-21-2022 Monocytes/100 WBC (Bld) 7.5 % 0-10 [facility] Blood platelet mean volumeOr dered By: Dr. Drake on 02-21-2022 Platelet mean volume (Bld) [Entitic vol] 8.7 fL 6.2-12.0 [facility] COVID-19 virus antigen assay Ordered By: Dr. Drake on 02-21-2022 SARS-CoV-2 (COVID-19) Ag IA.rapid Ql (Resp) [facility] Determination of erythrocyte mean corpuscular volume (MCV)Ordered By: Dr. Drake on 02-21-2022 MCV (RBC) [Entitic vol] 85.7 fL 81-99 [facility] Hematocrit Auto (Bld) [Volum e fraction]Ordered By: Dr. Drake on 02-21-2022 Hematocrit (Bld) [Volume fraction] 39.6 % 37-47 [facility] Laboratory - Chemistry and C hemistry - challengeOrdered By: Dr. Drake on 02-21-2022 CO2 [Moles/Vol] 28.0 mmol/L 21.0-32.0 [facility] Urea nitrogen/Creatinine [Mass ratio] 11.8 mg/mg 10-20 [facility] Laboratory - Hematology and Cell countsOrdered By: Dr. Drake on 02-21-2022 Erythrocyte distribution width (RBC) [Entitic vol] 40.2 fL 35.1-43.9 [facility] Erythrocyte distribution width (RBC) [Ratio] 13.0 % 11.6-14.6 [facility] Immature granulocytes/100 WBC (Bld) 0.300 % 0.0-0.9 [facility] Comment on above: IG% - Immature Granu locytes (promyelocytes, myelocytes and metamyelocytes) > 1% indicates that a LEFT SHIFT is Present. MCH (RBC) [Entitic mass] 27.7 pg 27.0-32.0 [facility] Nucleated RBC/100 WBC (Bld) [Ratio] 0 % 0-5 [facility] MCHC Auto (RBC) [Mass/Vol]Or dered By: Dr. Drake on 02-21-2022 MCHC (RBC) [Mass/Vol] 32.3 g/dL 32-36 [facility] No Panel InformationOrdered By: Dr. Drake on 02-21-2022 Estimated Creatinine Clearance Calc 51.60 ml/min [facility] Estimated GFR (MDRD) Amer 79 mL/min >60 [facility] Comment on above: GFR Calc Estimated GFR (MDRD) Non-Af Amer 65 mL/min >60 [facility] Comment on above: Non- GFR Calc Platelets bldOrdered By: Dr. Drake on 02-21-2022 Platelets (Bld) [#/Vol] 281 10*3/uL 150-450 [facility] Serum or plasma calcium kallie urement (mass/volume)Ordered By: Dr. Drake on 02-21-2022 Calcium [Mass/Vol] 9.1 mg/dL 8.5-10.1 [facility] Serum or plasma creatinine m easurement (mass/volume)Ordered By: Dr. Drake on 02-21-2022 Creatinine [Mass/Vol] 0.94 mg/dL 0.55-1.02 [facility] Comment on above: The validity of the calculated GFR & GFRAA in patients over 70 years has not been determined. Clinical correlation is essential. Serum or plasma urea nitroge n measurement (mass/volume)Ordered By: Dr. Drake on 02-21-2022 Urea nitrogen [Mass/Vol] 11 mg/dL 7-18 [facility] Thin prep Papanicolaou smear with manual screeningOrdered By: Dr. Drake on 02-21-2022 Thin prep Papanicolaou smear with manual screening 7 5-15 [facility] Absolute lymphocyte counton 02-04-2022 Lymphocytes Auto (Unsp spec) [#/Vol] 1.38 10*3/uL 0.83-4.51 [facility] Work Phone: Basophil percentageon 2021 Basophils/100 WBC (Bld) 0.6 % 0-1 [facility] Work Phone: Chloride [Moles/Vol] 111 mmol/L 98-107 [facility] Work Phone: Eosinophils/100 WBC (Bld) 9.6 % 0-5 [facility] Work Phone: Glucose [Mass/Vol] 80 mg/dL 74-106 [facility] Work Phone: Neutrophils (Bld) [#/Vol] 5.4 10*3/uL 2.0-7.7 [facility] Work Phone: Neutrophils/100 WBC (Bld) 65.1 % 47-70 [facility] Work Phone: Potassium [Moles/Vol] 3.4 mmol/L 3.5-5.1 [facility] Work Phone: Sodium [Moles/Vol] 144 mmol/L 136-145 [facility] Work Phone: [phone] WBC (Bld) [#/Vol] 8.3 10*3/uL 4.4-11.0 [facility] Work Phone: Blood erythrocytes count (nu mber/volume)on 02-04-2022 RBC (Bld) [#/Vol] 4.19 10*6/uL 4.2-5.4 [facility] Work Phone: [phone] Blood hemoglobin measurement (mass/volume)on 02-04-2022 Hemoglobin (Bld) [Mass/Vol] 12.1 g/dL 12.0-15.0 [facility] Work Phone: Blood lymphocytes/100 leukoc yteson 02-04-2022 Lymphocytes/100 WBC (Bld) 16.6 % 19-41 [facility] Work Phone: Blood monocytes/100 leukocyt eson 02-04-2022 Monocytes/100 WBC (Bld) 7.3 % 0-10 [facility] Work Phone: Blood platelet mean volumeon 02-04-2022 Platelet mean volume (Bld) [Entitic vol] 9.1 fL 6.2-12.0 [facility] Work Phone: [phone] Determination of erythrocyte mean corpuscular volume (MCV)on 02-04-2022 MCV (RBC) [Entitic vol] 85.2 fL 81-99 [facility] Work Phone: Hematocrit Auto (Bld) [Volum e fraction]on 02-04-2022 Hematocrit (Bld) [Volume fraction] 35.7 % 37-47 [facility] Work Phone: [phone] Laboratory - Chemistry and C hemistry - challengeon 02-04-2022 CO2 [Moles/Vol] 25.0 mmol/L 21.0-32.0 [facility] Work Phone: [phone] Urea nitrogen/Creatinine [Mass ratio] 9.5 mg/mg 10-20 [facility] Work Phone: [phone] Laboratory - Hematology and Cell countson 02-04-2022 Erythrocyte distribution width (RBC) [Entitic vol] 38.6 fL 35.1-43.9 [facility] Work Phone: Erythrocyte distribution width (RBC) [Ratio] 12.7 % 11.6-14.6 [facility] Work Phone: Immature granulocytes/100 WBC (Bld) 0.800 % 0.0-0.9 [facility] Work Phone: Comment on above: IG% - Immature Granu locytes (promyelocytes, myelocytes and metamyelocytes) > 1% indicates that a LEFT SHIFT is Present. MCH (RBC) [Entitic mass] 28.9 pg 27.0-32.0 [facility] Work Phone: Nucleated RBC/100 WBC (Bld) [Ratio] 0 % 0-5 [facility] Work Phone: MCHC Auto (RBC) [Mass/Vol]on 02-04-2022 MCHC (RBC) [Mass/Vol] 33.9 g/dL 32-36 [facility] Work Phone: No Panel Informationon 02-04 Estimated Creatinine Clearance Calc 41.81 ml/min [facility] Work Phone: Estimated GFR (MDRD) Amer 62 mL/min >60 [facility] Work Phone: Comment on above: GFR Calc Estimated GFR (MDRD) Non-Af Amer 51 mL/min >60 [facility] Work Phone: Comment on above: Non- GFR Calc Troponin I High Sensitivity 6 pg/mL 3.0-54.0 [facility] Work Phone: Comment on above: Please Note: New Nurys t Units and Gender Specific Reference Ranges. For more information see Policy Stat Procedure Bryant High Sensitivity Troponin (TNIH) and attachments. Platelets bldon 02-04-2022 Platelets (Bld) [#/Vol] 222 10*3/uL 150-450 [facility] Work Phone: Serum or plasma calcium kallie urement (mass/volume)on 02-04-2022 Calcium [Mass/Vol] 9.3 mg/dL 8.5-10.1 [facility] Work Phone: Serum or plasma creatinine m easurement (mass/volume)on 02-04-2022 Creatinine [Mass/Vol] 1.16 mg/dL 0.55-1.02 [facility] Work Phone: Comment on above: The validity of the calculated GFR & GFRAA in patients over 70 years has not been determined. Clinical correlation is essential. Serum or plasma urea nitroge n measurement (mass/volume)on 02-04-2022 Urea nitrogen [Mass/Vol] 11 mg/dL 7-18 [facility] Work Phone: Thin prep Papanicolaou smear with manual screeningon 02-04-2022 Thin prep Papanicolaou smear with manual screening 8 5-15 [facility] Work Phone: Absolute lymphocyte counton 10-09-2021 Lymphocytes Auto (Unsp spec) [#/Vol] 1.56 10*3/uL 0.83-4.51 [facility] Work Phone: Basophil percentageon 2021 Basophil percentage Not Reportable [facility] Work Phone: Basophil percentage 1 % 0-5 [facility] Work Phone: Chloride [Moles/Vol] 107 mmol/L 98-107 [facility] Work Phone: Glucose [Mass/Vol] 158 mg/dL 74-106 [facility] Work Phone: Comment on above: Fasting Glucose resu lt greater than or equal to 126 mg/dL suggests DIABETES MELLITUS per A.D.A. criteria. Neutrophils (Bld) [#/Vol] 3.8 10*3/uL 2.0-7.7 [facility] Work Phone: Potassium [Moles/Vol] 4.0 mmol/L 3.5-5.1 [facility] Work Phone: Sodium [Moles/Vol] 141 mmol/L 136-145 [facility] Work Phone: WBC (Bld) [#/Vol] 6.0 10*3/uL 4.4-11.0 [facility] Work Phone: Blood band neutrophil count as percentage of total leukocyteson 10-09-2021 Band form neutrophils/100 WBC (Bld) 5 % 0-5 [facility] Work Phone: Blood eosinophils/100 leukoc yteson 10-09-2021 Eosinophils/100 WBC (Bld) 6 % 0-5 [facility] Work Phone: Blood erythrocytes count (nu mber/volume)on 10-09-2021 RBC (Bld) [#/Vol] 3.51 10*6/uL 4.2-5.4 [facility] Work Phone: Blood hemoglobin measurement (mass/volume)on 10-09-2021 Hemoglobin (Bld) [Mass/Vol] 9.9 g/dL 12.0-15.0 [facility] Work Phone: Blood lymphocytes/100 leukoc yteson 10-09-2021 Lymphocytes/100 WBC (Bld) 26 % 19-41 [facility] Work Phone: Blood metamyelocytes/100 shaniqua kocyteson 10-09-2021 Metamyelocytes/100 WBC (Bld) 13 % 0-1 [facility] Work Phone: Blood monocytes/100 leukocyt eson 10-09-2021 Monocytes/100 WBC (Bld) 4 % 0-10 [facility] Work Phone: Blood platelet adequacy dete ction by light microscopyon 10-09-2021 Platelets LM Ql (Bld) ADEQUATE ADEQ [facility] Work Phone: Blood platelet mean volumeon 10-09-2021 Platelet mean volume (Bld) [Entitic vol] 9.2 fL 6.2-12.0 [facility] Work Phone: Blood segmented neutrophils/ 100 leukocyteson 10-09-2021 Segmented neutrophils/100 WBC (Bld) 46 % 47-70 [facility] Work Phone: Determination of erythrocyte mean corpuscular volume (MCV)on 10-09-2021 MCV (RBC) [Entitic vol] 91.7 fL 81-99 [facility] Work Phone: Glucose Glucometer (BldC) [M ass/Vol]on 10-09-2021 Glucose [Mass/Vol] 200 mg/dL 74-106 [facility] Work Phone: Comment on above: MANAGEMENT OF PATIEN T CARE PER NURSING PROTOCOL Hematocrit Auto (Bld) [Volum e fraction]on 10-09-2021 Hematocrit (Bld) [Volume fraction] 32.2 % 37-47 [facility] Work Phone: Laboratory - Chemistry and C hemistry - challengeon 10-09-2021 CO2 [Moles/Vol] 30.0 mmol/L 21.0-32.0 [facility] Work Phone: Urea nitrogen/Creatinine [Mass ratio] 20.7 mg/mg 10-20 [facility] Work Phone: Laboratory - Hematology and Cell countson 10-09-2021 Erythrocyte distribution width (RBC) [Entitic vol] 45.6 fL 35.1-43.9 [facility] Work Phone: Erythrocyte distribution width (RBC) [Ratio] 13.5 % 11.6-14.6 [facility] Work Phone: MCH (RBC) [Entitic mass] 28.2 pg 27.0-32.0 [facility] Work Phone: MCHC Auto (RBC) [Mass/Vol]on 10-09-2021 MCHC (RBC) [Mass/Vol] 30.7 g/dL 32-36 [facility] Work Phone: No Panel Informationon 10-09 Estimated Creatinine Clearance Calc 53.36 ml/min [facility] Work Phone: Estimated GFR (MDRD) Amer 81 mL/min >60 [facility] Work Phone: Comment on above: GFR Calc Estimated GFR (MDRD) Non-Af Amer 67 mL/min >60 [facility] Work Phone: Comment on above: Non- GFR Calc Platelets bldon 10-09-2021 Platelets (Bld) [#/Vol] 279 10*3/uL 150-450 [facility] Work Phone: RBC morphologyon 10-09-2021 RBC morphology finding Nom (Bld) NORM C+C NORMAL NORM C&C [facility] Work Phone: Review by pathologiston 09-17 Pathologist review Merrick (Unsp spec) [Interp] Reviewed [facility] Work Phone: Comment on above: Previous reported re sult: Aure minaya Edited by: MARC on 10/09/21:1245Neutrophilic left shift.Normocytic anemia.Clinical correlation necessary.Yuriy Ho M.D. 10/09/21 AMENDED REPORT 10/09/21 1245 PATH REV previously reported as: Aure minaya Serum or plasma calcium kallie urement (mass/volume)on 10-09-2021 Calcium [Mass/Vol] 9.0 mg/dL 8.5-10.1 [facility] Work Phone: Serum or plasma creatinine m easurement (mass/volume)on 10-09-2021 Creatinine [Mass/Vol] 0.92 mg/dL 0.55-1.02 [facility] Work Phone: Comment on above: The validity of the calculated GFR & GFRAA in patients over 70 years has not been determined. Clinical correlation is essential. Serum or plasma urea nitroge n measurement (mass/volume)on 10-09-2021 Urea nitrogen [Mass/Vol] 19 mg/dL 7-18 [facility] Work Phone: Thin prep Papanicolaou smear with manual screeningon 10-09-2021 Thin prep Papanicolaou smear with manual screening 4 5-15 [facility] Work Phone: Total cell counton 2 Cells counted Molgen (Bld/Tiss) [#] 100 MANUAL DIFF [facility] Work Phone: Vancomycin troughon 10-10-19 Vancomycin trough [Mass/Vol] 20.3 ug/mL 5.0-15.0 [facility] Work Phone: Comment on above: VANCOMYCIN STANDARED DRUG THERAPY TROUGH LEVEL: 5.0 - 15.0 mg/L VANCOMYCIN HIGH INTENSITY THERAPY TROUGH LEVEL: 15.0 - 20.0 mg/L High Intensity therapy recommended for serious lifethreatening infections include:- Pbmzgvfkbr-Htmmhrfyveny-Qvjjjbuyq (Ventilator/Healtcare Associated)-Sepsis PLEASE CONTACT PHARMACY SERVICES (#[phone]) FOR INTERPRETATIONOF RESULTS. Laboratory - Chemistry and C hemistry - challengeon 10-07-2021 Magnesium [Mass/Vol] 2.0 mg/dL 1.6-2.6 [facility] Work Phone: Laboratory - Hematology and Cell countson 10-07-2021 Myelocytes/100 WBC (Bld) 13 % 0-0 [facility] Work Phone: Bacteria identified Anaer cx Nom (Unsp spec)on 10-05-2021 Anaerobic microbial culture No anaerobic bacteria isolated. [facility] Work Phone: Bacteria identified Cx Nom ( Wound)on 10-05-2021 Wound Culture Meth. resistant Stap h. aureus [facility] Work Phone: Gram stain for investigation of transfusion reactionon 10-05-2021 Microscopic observation Gram stain Nom (Unsp spec) [facility] Work Phone: Whole blood hemoglobin A1c/t otal hemoglobin ratio (mass fraction)on 10-05-2021 HbA1c (Bld) [Mass fraction] 8.2 % 3.8-5.6 [facility] Work Phone: Comment on above: Normal < 5.7 % Predi abetic 5.7 - 6.4 % Diabetic >or= 6.5 % Please note range changes. Absolute lymphocyte counton 10-04-2021 Lymphocytes Auto (Unsp spec) [#/Vol] 0.56 10*3/uL 0.83-4.51 [facility] Work Phone: Basophil percentageon 2021 Lactate [Moles/Vol] 1.9 mmol/L 0.4-2.0 [facility] Work Phone: Basophil percentage 3.1 mg/dL 2.5-4.9 [facility] Work Phone: [phone] Basophils/100 WBC (Bld) 0.2 % 0-1 [facility] Work Phone: Bilirubin [Mass/Vol] 0.30 mg/dL 0.20-1.00 [facility] Work Phone: Comment on above: For patients on eltr ombopag therapy, use of Dimension Bryant TBIL is not recommended. Chloride [Moles/Vol] 100 mmol/L 98-107 [facility] Work Phone: [phone] Eosinophils/100 WBC (Bld) 2.7 % 0-5 [facility] Work Phone: Glucose [Mass/Vol] 347 mg/dL 74-106 [facility] Work Phone: Comment on above: Glucose result great er than or equal to 200 mg/dLsuggests DIABETES MELLITUS per A.D.A. criteria. Lactate [Moles/Vol] 2.1 mmol/L 0.4-2.0 [facility] Work Phone: Comment on above: Critical Result(s) C alled at: 11:47:33 10/04/2021 by: Nicki Rocha to Glenny. Results read back by same. Neutrophils (Bld) [#/Vol] 6.4 10*3/uL 2.0-7.7 [facility] Work Phone: [phone] Neutrophils/100 WBC (Bld) 79.2 % 47-70 [facility] Work Phone: Potassium [Moles/Vol] 3.2 mmol/L 3.5-5.1 [facility] Work Phone: Protein [Mass/Vol] 6.1 g/dL 6.4-8.2 [facility] Work Phone: Sodium [Moles/Vol] 136 mmol/L 136-145 [facility] Work Phone: WBC (Bld) [#/Vol] 8.1 10*3/uL 4.4-11.0 [facility] Work Phone: Blood erythrocytes count (nu mber/volume)on 10-04-2021 RBC (Bld) [#/Vol] 3.59 10*6/uL 4.2-5.4 [facility] Work Phone: Blood hemoglobin measurement (mass/volume)on 10-04-2021 Hemoglobin (Bld) [Mass/Vol] 10.3 g/dL 12.0-15.0 [facility] Work Phone: Blood lymphocytes/100 leukoc yteson 10-04-2021 Lymphocytes/100 WBC (Bld) 6.9 % 19-41 [facility] Work Phone: Blood manual differential co mment interpretation (narrative result)on 10-04-2021 Manual differential comment Merrick (Bld) [Interp] SCANNED [facility] Work Phone: Blood monocytes/100 leukocyt eson 10-04-2021 Monocytes/100 WBC (Bld) 6.8 % 0-10 [facility] Work Phone: Blood platelet mean volumeon 10-04-2021 Platelet mean volume (Bld) [Entitic vol] 9.9 fL 6.2-12.0 [facility] Work Phone: Determination of erythrocyte mean corpuscular volume (MCV)on 10-04-2021 MCV (RBC) [Entitic vol] 86.9 fL 81-99 [facility] Work Phone: Hematocrit Auto (Bld) [Volum e fraction]on 10-04-2021 Hematocrit (Bld) [Volume fraction] 31.2 % 37-47 [facility] Work Phone: [phone] INR in Blood by Coagulation assayon 10-04-2021 INR Coag (Bld) [Relative time] 1.2 {INR} [facility] Work Phone: Laboratory - Chemistry and C hemistry - challengeon 10-04-2021 ALP [Catalytic activity/Vol] 143 U/L 45-117 [facility] Work Phone: [phone] ALT [Catalytic activity/Vol] 13 U/L 13-56 [facility] Work Phone: [phone] CO2 [Moles/Vol] 25.0 mmol/L 21.0-32.0 [facility] Work Phone: [phone] Globulin (S) [Mass/Vol] 3.9 g/dL 2.2-4.2 [facility] Work Phone: [phone] Urea nitrogen/Creatinine [Mass ratio] 12.1 mg/mg 10-20 [facility] Work Phone: [phone] Laboratory - Coagulationon 0 10-04-2021 aPTT Coag (Bld) [Time] 29.6 s 24.1-36.2 [facility] Work Phone: [phone] PT Coag (PPP) [Time] 14.8 s 11.7-14.9 [facility] Work Phone: [phone] Laboratory - Hematology and Cell countson 10-04-2021 Erythrocyte distribution width (RBC) [Entitic vol] 41.2 fL 35.1-43.9 [facility] Work Phone: [phone] Erythrocyte distribution width (RBC) [Ratio] 12.8 % 11.6-14.6 [facility] Work Phone: Immature granulocytes/100 WBC (Bld) 4.200 % 0.0-0.9 [facility] Work Phone: Comment on above: IG% - Immature Granu locytes (promyelocytes, myelocytes and metamyelocytes) > 1% indicates that a LEFT SHIFT is Present. MCH (RBC) [Entitic mass] 28.7 pg 27.0-32.0 [facility] Work Phone: [phone] Nucleated RBC/100 WBC (Bld) [Ratio] 0 % 0-5 [facility] Work Phone: Laboratory - Microbiology an d Antimicrobial susceptibilityon 10-04-2021 Bacteria identified Cx Nom (Bld) No growth in 5 days. [facility] Work Phone: MCHC Auto (RBC) [Mass/Vol]on 10-04-2021 MCHC (RBC) [Mass/Vol] 33.0 g/dL 32-36 [facility] Work Phone: No Panel Informationon 10-04 Methicillin-Resist S.aureus DNA PCR Positive Negative [facility] Work Phone: Comment on above: CRITICAL VALUE VERIF IED. CALLED TO CRAIG MARTINEZ10/04/21 1645 Sumeet Leon.RESULTS READ BACK BY SAME . Copy of report sent to Infection Control Printer MS#[id number]/04/21 [id number]. Estimated Creatinine Clearance Calc 39.59 ml/min [facility] Work Phone: Estimated GFR (MDRD) Amer 57 mL/min >60 [facility] Work Phone: Comment on above: GFR Calc Estimated GFR (MDRD) Non-Af Amer 47 mL/min >60 [facility] Work Phone: Comment on above: Non- GFR Calc Platelets bldon 10-04-2021 Platelets (Bld) [#/Vol] 170 10*3/uL 150-450 [facility] Work Phone: Serum or plasma albumin kallie urement (mass/volume)on 10-04-2021 Albumin [Mass/Vol] 2.2 g/dL 3.2-5.0 [facility] Work Phone: Serum or plasma albumin/glob ulin mass ratioon 10-04-2021 Albumin/Globulin [Mass ratio] 0.6 {ratio} 0.9-2.4 [facility] Work Phone: Serum or plasma calcium kallie urement (mass/volume)on 10-04-2021 Calcium [Mass/Vol] 9.0 mg/dL 8.5-10.1 [facility] Work Phone: Serum or plasma creatinine m easurement (mass/volume)on 10-04-2021 Creatinine [Mass/Vol] 1.24 mg/dL 0.55-1.02 [facility] Work Phone: Comment on above: The validity of the calculated GFR & GFRAA in patients over 70 years has not been determined. Clinical correlation is essential. Serum or plasma urea nitroge n measurement (mass/volume)on 10-04-2021 Urea nitrogen [Mass/Vol] 15 mg/dL 7-18 [facility] Work Phone: Staphylococcus aureus DNA de tection by probe and target amplification methodon 10-04-2021 S. aureus DNA DONALDO+probe Ql (Unsp spec) Positive Negative [facility] Work Phone: Thin prep Papanicolaou smear with manual screeningon 10-04-2021 Thin prep Papanicolaou smear with manual screening 9 U/L 15-37 [facility] Work Phone: [phone] Thin prep Papanicolaou smear with manual screening 11 5-15 [facility] Work Phone: [phone] Absolute lymphocyte counton 08-19-2021 Lymphocytes Auto (Unsp spec) [#/Vol] 1.28 10*3/uL 0.83-4.51 [facility] Work Phone: [phone] Basophil percentageon 2021 Basophils/100 WBC (Bld) 0.8 % 0-1 [facility] Work Phone: [phone] Chloride [Moles/Vol] 109 mmol/L 98-107 [facility] Work Phone: [phone] Eosinophils/100 WBC (Bld) 11.5 % 0-5 [facility] Work Phone: [phone] Glucose [Mass/Vol] 109 mg/dL 74-106 [facility] Work Phone: Comment on above: Fasting Glucose resu lt from 100 to 125 mg/dL suggests IMPAIRED HOMEOSTASIS per A.D.A. criteria. Neutrophils (Bld) [#/Vol] 2.4 10*3/uL 2.0-7.7 [facility] Work Phone: Neutrophils/100 WBC (Bld) 50.4 % 47-70 [facility] Work Phone: Potassium [Moles/Vol] 4.1 mmol/L 3.5-5.1 [facility] Work Phone: Comment on above: Slight Hemolysis, Re sult may be falsely increased. Sodium [Moles/Vol] 141 mmol/L 136-145 [facility] Work Phone: WBC (Bld) [#/Vol] 4.8 10*3/uL 4.4-11.0 [facility] Work Phone: Blood erythrocytes count (nu mber/volume)on 08-19-2021 RBC (Bld) [#/Vol] 4.23 10*6/uL 4.2-5.4 [facility] Work Phone: [phone] Blood hemoglobin measurement (mass/volume)on 08-19-2021 Hemoglobin (Bld) [Mass/Vol] 12.3 g/dL 12.0-15.0 [facility] Work Phone: Blood lymphocytes/100 leukoc yteson 08-19-2021 Lymphocytes/100 WBC (Bld) 26.7 % 19-41 [facility] Work Phone: Blood monocytes/100 leukocyt eson 08-19-2021 Monocytes/100 WBC (Bld) 9.8 % 0-10 [facility] Work Phone: Blood platelet mean volumeon 08-19-2021 Platelet mean volume (Bld) [Entitic vol] 8.7 fL 6.2-12.0 [facility] Work Phone: [phone] Determination of erythrocyte mean corpuscular volume (MCV)on 08-19-2021 MCV (RBC) [Entitic vol] 88.4 fL 81-99 [facility] Work Phone: Hematocrit Auto (Bld) [Volum e fraction]on 08-19-2021 Hematocrit (Bld) [Volume fraction] 37.4 % 37-47 [facility] Work Phone: Laboratory - Chemistry and C hemistry - challengeon 08-19-2021 CO2 [Moles/Vol] 27.0 mmol/L 21.0-32.0 [facility] Work Phone: Urea nitrogen/Creatinine [Mass ratio] 9.8 mg/mg 10-20 [facility] Work Phone: Laboratory - Hematology and Cell countson 08-19-2021 Erythrocyte distribution width (RBC) [Entitic vol] 38.5 fL 35.1-43.9 [facility] Work Phone: Erythrocyte distribution width (RBC) [Ratio] 12.1 % 11.6-14.6 [facility] Work Phone: Immature granulocytes/100 WBC (Bld) 0.800 % 0.0-0.9 [facility] Work Phone: Comment on above: IG% - Immature Granu locytes (promyelocytes, myelocytes and metamyelocytes) > 1% indicates that a LEFT SHIFT is Present. MCH (RBC) [Entitic mass] 29.1 pg 27.0-32.0 [facility] Work Phone: Nucleated RBC/100 WBC (Bld) [Ratio] 0 % 0-5 [facility] Work Phone: MCHC Auto (RBC) [Mass/Vol]on 08-19-2021 MCHC (RBC) [Mass/Vol] 32.9 g/dL 32-36 [facility] Work Phone: No Panel Informationon 08-19 Estimated Creatinine Clearance Calc 48.13 ml/min [facility] Work Phone: Estimated GFR (MDRD) Amer 72 mL/min >60 [facility] Work Phone: Comment on above: GFR Calc Estimated GFR (MDRD) Non-Af Amer 59 mL/min >60 [facility] Work Phone: Comment on above: Non- GFR Calc Troponin I High Sensitivity < 3 pg/mL 3.0-54.0 [facility] Work Phone: Comment on above: Please Note: New Nurys t Units and Gender Specific Reference Ranges. For more information see Policy Stat Procedure Bryant High Sensitivity Troponin (TNIH) and attachments. SARS-CoV-2 & FLU Antigen (Rapid) [facility] Work Phone: Platelets bldon 08-19-2021 Platelets (Bld) [#/Vol] 192 10*3/uL 150-450 [facility] Work Phone: Serum or plasma calcium kallie urement (mass/volume)on 08-19-2021 Calcium [Mass/Vol] 9.1 mg/dL 8.5-10.1 [facility] Work Phone: Serum or plasma creatinine m easurement (mass/volume)on 08-19-2021 Creatinine [Mass/Vol] 1.02 mg/dL 0.55-1.02 [facility] Work Phone: Comment on above: The validity of the calculated GFR & GFRAA in patients over 70 years has not been determined. Clinical correlation is essential. Serum or plasma urea nitroge n measurement (mass/volume)on 08-19-2021 Urea nitrogen [Mass/Vol] 10 mg/dL 7-18 [facility] Work Phone: Thin prep Papanicolaou smear with manual screeningon 08-19-2021 Thin prep Papanicolaou smear with manual screening 5 5-15 [facility] Work Phone: Glucose Glucometer (BldC) [M ass/Vol]on 07-16-2021 Glucose [Mass/Vol] 345 mg/dL 70-110 [facility] Work Phone: Comment on above: MANAGEMENT OF PATIEN T CARE PER NURSING PROTOCOL Absolute lymphocyte counton 07-15-2021 Lymphocytes Auto (Unsp spec) [#/Vol] 1.55 10*3/uL 0.83-4.51 [facility] Work Phone: Basophil percentageon 2021 Basophils/100 WBC (Bld) 0.7 % 0-1 [facility] Work Phone: Chloride [Moles/Vol] 109 mmol/L 98-107 [facility] Work Phone: Eosinophils/100 WBC (Bld) 6.6 % 0-5 [facility] Work Phone: Glucose [Mass/Vol] 140 mg/dL 74-106 [facility] Work Phone: Comment on above: Fasting Glucose resu lt greater than or equal to 126 mg/dL suggests DIABETES MELLITUS per A.D.A. criteria. Neutrophils (Bld) [#/Vol] 4.0 10*3/uL 2.0-7.7 [facility] Work Phone: Neutrophils/100 WBC (Bld) 60.5 % 47-70 [facility] Work Phone: Potassium [Moles/Vol] 3.6 mmol/L 3.5-5.1 [facility] Work Phone: Sodium [Moles/Vol] 141 mmol/L 136-145 [facility] Work Phone: WBC (Bld) [#/Vol] 6.7 10*3/uL 4.4-11.0 [facility] Work Phone: [phone] Blood erythrocytes count (nu mber/volume)on 07-15-2021 RBC (Bld) [#/Vol] 4.58 10*6/uL 4.2-5.4 [facility] Work Phone: Blood hemoglobin measurement (mass/volume)on 07-15-2021 Hemoglobin (Bld) [Mass/Vol] 13.7 g/dL 12.0-15.0 [facility] Work Phone: Blood lymphocytes/100 leukoc yteson 07-15-2021 Lymphocytes/100 WBC (Bld) 23.2 % 19-41 [facility] Work Phone: Blood monocytes/100 leukocyt eson 07-15-2021 Monocytes/100 WBC (Bld) 7.8 % 0-10 [facility] Work Phone: Blood platelet mean volumeon 07-15-2021 Platelet mean volume (Bld) [Entitic vol] 8.5 fL 6.2-12.0 [facility] Work Phone: Determination of erythrocyte mean corpuscular volume (MCV)on 07-15-2021 MCV (RBC) [Entitic vol] 90.2 fL 81-99 [facility] Work Phone: Hematocrit Auto (Bld) [Volum e fraction]on 07-15-2021 Hematocrit (Bld) [Volume fraction] 41.3 % 37-47 [facility] Work Phone: Laboratory - Chemistry and C hemistry - challengeon 07-15-2021 CO2 [Moles/Vol] 25.0 mmol/L 21.0-32.0 [facility] Work Phone: Urea nitrogen/Creatinine [Mass ratio] 10.4 mg/mg 10-20 [facility] Work Phone: Laboratory - Hematology and Cell countson 07-15-2021 Erythrocyte distribution width (RBC) [Entitic vol] 39.6 fL 35.1-43.9 [facility] Work Phone: Erythrocyte distribution width (RBC) [Ratio] 12.0 % 11.6-14.6 [facility] Work Phone: Immature granulocytes/100 WBC (Bld) 1.200 % 0.0-0.9 [facility] Work Phone: Comment on above: IG% - Immature Granu locytes (promyelocytes, myelocytes and metamyelocytes) > 1% indicates that a LEFT SHIFT is Present. MCH (RBC) [Entitic mass] 29.9 pg 27.0-32.0 [facility] Work Phone: Nucleated RBC/100 WBC (Bld) [Ratio] 0 % 0-5 [facility] Work Phone: Laboratory - Microbiology an d Antimicrobial susceptibilityon 07-15-2021 Bacteria identified Cx Nom (Bld) No growth in 5 days. [facility] Work Phone: MCHC Auto (RBC) [Mass/Vol]on 07-15-2021 MCHC (RBC) [Mass/Vol] 33.2 g/dL 32-36 [facility] Work Phone: No Panel Informationon 07-15 Respiratory Panel (PCR) [facility] Work Phone: Estimated Creatinine Clearance Calc 51.14 ml/min [facility] Work Phone: Estimated GFR (MDRD) Amer 77 mL/min >60 [facility] Work Phone: Comment on above: GFR Calc Estimated GFR (MDRD) Non-Af Amer 63 mL/min >60 [facility] Work Phone: Comment on above: Non- GFR Calc Troponin I High Sensitivity 4 pg/mL 3.0-54.0 [facility] Work Phone: Comment on above: Please Note: New Nurys t Units and Gender Specific Reference Ranges. For more information see Policy Stat Procedure Bryant High Sensitivity Troponin (TNIH) and attachments. Platelets bldon 07-15-2021 Platelets (Bld) [#/Vol] 176 10*3/uL 150-450 [facility] Work Phone: Serum or plasma calcium kallie urement (mass/volume)on 07-15-2021 Calcium [Mass/Vol] 9.0 mg/dL 8.5-10.1 [facility] Work Phone: Serum or plasma creatinine m easurement (mass/volume)on 07-15-2021 Creatinine [Mass/Vol] 0.96 mg/dL 0.55-1.02 [facility] Work Phone: Comment on above: The validity of the calculated GFR & GFRAA in patients over 70 years has not been determined. Clinical correlation is essential. Serum or plasma urea nitroge n measurement (mass/volume)on 07-15-2021 Urea nitrogen [Mass/Vol] 10 mg/dL 7-18 [facility] Work Phone: Thin prep Papanicolaou smear with manual screeningon 07-15-2021 Thin prep Papanicolaou smear with manual screening 7 5-15 [facility] Work Phone: LABORATORYOrdered By: Farhat Hernandez on 06-27-2021 Basophil, Absolute 0.10 103/mcL Invalid Interpretation Code 0.00 - 0.19 10^3/mcL AO Auto Heme SS Basophils/100 WBC (Bld) 0.8 % Invalid Interpretation Code 0.0 - 2.5 % AO Auto Heme SS Eosinophil, Absolute 0.70 103/mcL Invalid Interpretation Code 0.00 - 0.40 10^3/mcL AO Auto Heme SS Eosinophils/100 WBC (Bld) 6.4 % Invalid Interpretation Code 0.0 - 7.0 % AO Auto Heme SS Erythrocyte distribution width (RBC) [Ratio] 13.2 % Invalid Interpretation Code 11.5 - 14.5 % AO Auto Heme SS Hematocrit (Bld) [Volume fraction] 41.9 % Invalid Interpretation Code 37.0 - 47.0 % AO Auto Heme SS Hemoglobin (Bld) [Mass/Vol] 14.4 G/dL Invalid Interpretation Code 12.0 - 16.0 G/dL AO Auto Heme SS Lymphocyte, Absolute 1.90 103/mcL Invalid Interpretation Code 0.77 - 3.85 10^3/mcL AO Auto Heme SS Lymphocytes/100 WBC (Bld) 18.6 % Invalid Interpretation Code 10.0 - 50.0 % AO Auto Heme SS MCH (RBC) [Entitic mass] 29.4 pg Invalid Interpretation Code 27.0 - 31.2 pg AO Auto Heme SS MCHC (RBC) [Mass/Vol] 34.4 G/dL Invalid Interpretation Code 33.0 - 37.0 G/dL AO Auto Heme SS MCV (RBC) [Entitic vol] 85.3 fL Invalid Interpretation Code 80.0 - 94.0 fL AO Auto Heme SS Monocyte, Absolute 0.60 103/mcL Invalid Interpretation Code 0.15 - 1.00 10^3/mcL AO Auto Heme SS Monocytes/100 WBC (Bld) 6.0 % Invalid Interpretation Code 1.7 - 13.0 % AO Auto Heme SS Neutrophil, Absolute 7.10 103/mcL Invalid Interpretation Code 2.85 - 6.16 10^3/mcL AO Auto Heme SS Neutrophils/100 WBC (Bld) 68.2 % Invalid Interpretation Code 37.0 - 80.0 % AO Auto Heme SS Platelet mean volume (Bld) [Entitic vol] 7.2 fL Invalid Interpretation Code 7.4 - 10.4 fL AO Auto Heme SS Platelets (Bld) [#/Vol] 261 103/mcL Invalid Interpretation Code 130 - 400 10^3/mcL AO Auto Heme SS RBC (Bld) [#/Vol] 4.91 106/mcL Invalid Interpretation Code 4.20 - 5.40 10^6/mcL AO Auto Heme SS WBC (Bld) [#/Vol] 10.40 103/mcL Invalid Interpretation Code 4.60 - 10.80 10^3/mcL AO Auto Heme SS LABORATORYOrdered By: Sean Brock on 06-27-2021 Calcium [Mass/Vol] 9.1 mg/dL Invalid Interpretation Code 8.4 - 10.2 mg/dL AO ADM SS Chloride [Moles/Vol] 104 mmol/L Invalid Interpretation Code 98 - 107 mmol/L AO ADM SS CO2 [Moles/Vol] 25 mmol/L Invalid Interpretation Code 22 - 29 mmol/L AO ADM SS Creatinine [Mass/Vol] 0.89 mg/dL Invalid Interpretation Code 0.55 - 1.02 mg/dL AO ADM SS Electrolyte Balance 10.0 mEq/L Invalid Interpretation Code 4.0 - 15.0 mEq/L AO ADM SS Glucose [Mass/Vol] 138 mg/dL Invalid Interpretation Code 70 - 105 mg/dL AO ADM SS Potassium [Moles/Vol] 3.9 mmol/L Invalid Interpretation Code 3.5 - 5.1 mmol/L AO ADM SS Sodium [Moles/Vol] 139 mmol/L Invalid Interpretation Code 136 - 145 mmol/L AO ADM SS Urea nitrogen [Mass/Vol] 7 mg/dL Invalid Interpretation Code 7 - 18 mg/dL AO ADM SS Urea nitrogen/Creatinine [Mass ratio] 8 ratio Invalid Interpretation Code 7 - 27 ratio AO ADM SS LABORATORYOrdered By: SYSTEM SYSTEM on 06-27-2021 GFR 79 ml/min/1.73sqm Invalid Interpretation Code AO Chemistry S GFR Non- 65 ml/min/1.73sqm Invalid Interpretation Code AO Chemistry S LABORATORYOrdered By: Julisa Diaz on 06-27-2021 Natriuretic peptide.B prohormone N-Terminal [Mass/Vol] 18 pg/mL Invalid Interpretation Code 0 - 125 pg/mL AO ADM SS Troponin I.cardiac DL <= 0.01 ng/mL [Mass/Vol] 4.0 ng/L Invalid Interpretation Code 0.0 - 51.4 ng/L AO ADM SS Base excess Calc (Bld) [Moles/Vol] 0.0 mmol/L Invalid Interpretation Code -2.4 - 2.3 mmol/L AO Blood Gas SS CO2 (Bld) [Partial pressure] 35.8 mm[Hg] Invalid Interpretation Code 35.0 - 45.0 mm Hg AO Blood Gas SS CO2 [Moles/Vol] 25 mmol/L Invalid Interpretation Code 19 - 24 mmol/L AO Blood Gas SS HCO3 (Bld) [Moles/Vol] 24.1 mmol/L Invalid Interpretation Code 22.0 - 26.0 mmol/L AO Blood Gas SS Oxygen (Bld) [Partial pressure] 68.0 mm[Hg] Invalid Interpretation Code 80.0 - 100.0 mm Hg AO Blood Gas SS pH (Bld) 7.44 [pH] Invalid Interpretation Code 7.35 - 7.45 AO Blood Gas SS Basic Metabolic Panelon 0 Anion gap [Moles/Vol] 9 mmol/L Normal 3-13 [facility] Comment on above: Performed By: #### B MP3, MG3, HEMDF #### [facility] [address] [place] [address] Calcium [Mass/Vol] 10.5 mg/dL High 8.4-10.4 [facility] Comment on above: Performed By: #### B MP3, MG3, HEMDF #### [facility] [address] [place] [address] CO2 [Moles/Vol] 20 mmol/L Low 22-30 [facility] Comment on above: Performed By: #### B MP3, MG3, HEMDF #### [facility] [address] [place] [address] Glucose [Mass/Vol] 248 mg/dL High 70-100 [facility] Comment on above: Performed By: #### B MP3, MG3, HEMDF #### [facility] [address] [place] [address] Urea nitrogen [Mass/Vol] 12 mg/dL Normal 9-20 [facility] Comment on above: Performed By: #### B MP3, MG3, HEMDF #### [facility] [address] [place] [address] Creatinine [Mass/Vol] 0.84 mg/dL Normal 0.52-1.25 [facility] Comment on above: Performed By: #### B MP3, MG3, HEMDF #### [facility] [address] [place] [address] GFR/1.73 sq M.predicted among blacks MDRD (S/P/Bld) [Vol rate/Area] 89.1 mL/min/{1.73_m2} Normal >60 [facility] Comment on above: Performed By: #### B MP3, MG3, HEMDF #### [facility] [address] [place] [address] GFR/1.73 sq M.predicted among non-blacks MDRD (S/P/Bld) [Vol rate/Area] 76.9 mL/min/{1.73_m2} Normal >60 [facility] Comment on above: Result Comment: KDIG O guidelines provide the following GFR categories: Stage GFR(ml/min/1.73 m2) Terms G1 >=90 Normal or high G2 60-89 Mildly decreased* G3a 45-59 Mildly to moderately decreased G3b 30-44 Moderately to severely decreased G4 15-29 Severely decreased G5 <15 Kidney failure *Relative to young adult level. In the absence of evidence of kidney damage, neither GFR category G1 nor G2 fulfill the criteria for CKD. The CKD-EPI equation is validated in individuals 18 years of age and older. Currently the best equation for estimating glomerular filtration rate (GFR) from serum creatinine in children is the Bedside Hutner equation. It is less accurate in patients with extremes of muscle mass, restriction of dietary protein, ingestion of creatine, extra-renal metabolism of creatinine, or treatment with medications that affect renal tubular creatinine secretion. Performed By: #### B MP3, MG3, HEMDF #### [facility] [address] [place] [address] Potassium [Moles/Vol] 3.9 mmol/L Normal 3.5-5.1 [facility] Comment on above: Performed By: #### B MP3, MG3, HEMDF #### [facility] [address] [place] [address] Sodium [Moles/Vol] 139 mmol/L Normal 135-145 [facility] Comment on above: Performed By: #### B MP3, MG3, HEMDF #### [facility] [address] [place] [address] Chloride [Moles/Vol] 110 mmol/L High 98-107 [facility] Comment on above: Performed By: #### B MP3, MG3, HEMDF #### [facility] [address] [place] [address] CR Chest PA/LATon 05-23-2021 CR Chest PA/LAT Patient Name: LEAH MCLEOD Diagnostic Radiology ACCESSION EXAM DATE/TIME PROCEDURE ORDERING PROVIDER [id number] 05/23/2021 08:08 EST CR Chest PA and LAT MD CORRINE, ANTON CPT code 21377 Reason For Exam (CR Chest PA and LAT) sob Report EXAM TYPE: EXAM TYPE: RADIOLOGIC EXAMINATION, CHEST, 2 VIEWS, FRONTAL AND LATERAL (CXR 2 Views) EXAM DATE AND TIME: 05/23/2021 8:08 AM EST INDICATION: Shortness of breath COMPARISON: Chest CT on 09/21/2015 TECHNIQUE: Frontal and lateral views of the thorax were obtained and reviewed. Special views: None. FINDINGS/IMPRESSION: 1. Lungs: Questionable opacity or pleural thickening overlying the posterior right third rib. It is possible this corresponds to the groundglass opacity in the prior study of 09/21/2015. Further evaluation with chest CT is recommended. There is otherwise left basilar subsegmental atelectasis. 2. Pleura: No pneumothorax or pleural effusions. 3. Heart and mediastinum: Normal heart size. Atheromatous aorta. 4. Osseous structures: Thoracic spondylosis. Report Dictated on Final Dictating Physician: MD GARCIA NEIL Signed Date and Time: 05/23/2021 8:14 am Signed by: MD GARCIA NEIL Transcribed Date and Time: 05/23/2021 8:15 Normal [facility] Hemogram w/ Autodiffon 05-23 Abs Baso Cnt 0.1 10*3/uL Normal 0.0-0.2 [facility] Comment on above: Performed By: #### B MP3, MG3, HEMDF #### [facility] [address] [place] [address] Abs Neutrophile Cnt 4.1 10*3/uL Normal 1.8-7.0 [facility] Comment on above: Performed By: #### B MP3, MG3, HEMDF #### [facility] [address] [place] [address] Basophils/100 WBC (Bld) 1.0 % Normal 0.0-2.0 [facility] Comment on above: Performed By: #### B MP3, MG3, HEMDF #### [facility] [address] [place] [address] Eosinophils (Bld) [#/Vol] 0.8 10*3/uL High 0.0-0.5 [facility] Comment on above: Performed By: #### B MP3, MG3, HEMDF #### [facility] [address] [place] [address] Eosinophils/100 WBC (Bld) 11.5 % High 1.0-6.0 [facility] Comment on above: Performed By: #### B MP3, MG3, HEMDF #### [facility] [address] [place] [address] Erythrocyte distribution width (RBC) [Ratio] 14.8 % High 11.5-14.5 [facility] Comment on above: Performed By: #### B MP3, MG3, HEMDF #### [facility] [address] [place] [address] Granulocytes/100 WBC (Bld) 61.0 % Normal 40.0-80.0 [facility] Comment on above: Performed By: #### B MP3, MG3, HEMDF #### [facility] [address] [place] [address] Hematocrit (Bld) [Volume fraction] 37.4 % Normal 35.0-47.0 [facility] Comment on above: Performed By: #### B MP3, MG3, HEMDF #### [facility] [address] [place] [address] Hemoglobin (Bld) [Mass/Vol] 12.8 g/dL Normal 11.7-16.0 [facility] Comment on above: Performed By: #### B MP3, MG3, HEMDF #### [facility] [address] [place] [address] Lymphocytes (Bld) [#/Vol] 1.1 10*3/uL Normal 1.0-4.3 [facility] Comment on above: Performed By: #### B MP3, MG3, HEMDF #### [facility] [address] [place] [address] Lymphocytes/100 WBC (Bld) 16.9 % Low 20.0-40.0 [facility] Comment on above: Performed By: #### B MP3, MG3, HEMDF #### [facility] [address] [place] [address] MCH (RBC) [Entitic mass] 29.7 pg Normal 26.0-34.0 [facility] Comment on above: Performed By: #### B MP3, MG3, HEMDF #### [facility] [address] [place] [address] MCHC 34.2 % Normal 32.0-36.0 [facility] Comment on above: Performed By: #### B MP3, MG3, HEMDF #### [facility] [address] [place] [address] MCV (RBC) [Entitic vol] 86.7 fL Normal 79.0-98.0 [facility] Comment on above: Performed By: #### B MP3, MG3, HEMDF #### [facility] [address] [place] [address] Monocytes (Bld) [#/Vol] 0.6 10*3/uL Normal 0.0-0.8 [facility] Comment on above: Performed By: #### B MP3, MG3, HEMDF #### [facility] [address] [place] [address] Monocytes/100 WBC (Bld) 9.6 % Normal 2.0-10.0 [facility] Comment on above: Performed By: #### B MP3, MG3, HEMDF #### [facility] [address] [place] [address] Platelet mean volume (Bld) [Entitic vol] 7.4 fL Normal 7.4-10.4 [facility] Comment on above: Performed By: #### B MP3, MG3, HEMDF #### [facility] [address] [place] [address] Platelets (Bld) [#/Vol] 215 10*3/uL Normal 140-440 [facility] Comment on above: Performed By: #### B MP3, MG3, HEMDF #### [facility] [address] [place] [address] RBC (Bld) [#/Vol] 4.31 10*6/uL Normal 3.80-5.20 [facility] Comment on above: Performed By: #### B MP3, MG3, HEMDF #### [facility] [address] [place] [address] WBC (Bld) [#/Vol] 6.7 10*3/uL Normal 3.6-10.7 [facility] Comment on above: Performed By: #### B MP3, MG3, HEMDF #### [facility] [address] [place] [address] Magnesiumon 05-23-2021 Magnesium [Mass/Vol] 1.9 mg/dL Normal 1.6-2.3 [facility] Comment on above: Performed By: #### B MP3, MG3, HEMDF #### [facility] [address] [place] [address] BASIC METABOLIC PANELon 05-0 Anion gap [Moles/Vol] 9 mmol/L Low 10 - 20 [facility] Comment on above: Performed By: #### B MP #### [address] [address] Calcium [Mass/Vol] 9.1 mg/dL Normal 8.6 - 10.3 [facility] Comment on above: Performed By: #### B MP #### [address] [address] Chloride [Moles/Vol] 104 mmol/L Normal 98 - 107 [facility] Comment on above: Performed By: #### B MP #### [address] [address] Creatinine [Mass/Vol] 0.99 mg/dL Normal 0.50 - 1.05 [facility] Comment on above: Performed By: #### B MP #### [address] [address] GFR- AM. 70 mL/min/1.73m2 Normal >60 [facility] Comment on above: Result Comment: CALC ULATIONS OF ESTIMATED GFR ARE PERFORMED USING THE MDRD STUDY EQUATION FOR THE IDMS-TRACEABLE CREATININE METHODS. CLIN CHEM 2007;53:766-72 Performed By: #### B MP #### [address] [address] GFR-NON AM. 58 mL/min/1.73m2 Abnormal >60 [facility] Comment on above: Performed By: #### B MP #### [address] [address] Glucose [Mass/Vol] 125 mg/dL High 74 - 99 [facility] Comment on above: Performed By: #### B MP #### [address] [address] HCO3 (Bld) [Moles/Vol] 31 mmol/L Normal 21 - 32 [facility] Comment on above: Performed By: #### B MP #### [address] [address] Potassium [Moles/Vol] 3.8 mmol/L Normal 3.5 - 5.3 [facility] Comment on above: Performed By: #### B MP #### [address] [address] Sodium [Moles/Vol] 140 mmol/L Normal 136 - 145 [facility] Comment on above: Performed By: #### B MP #### [place] [id number] Urea nitrogen [Mass/Vol] 16 mg/dL Normal 6 - 23 [facility] Comment on above: Performed By: #### B MP #### [place] [id number] CBC AND DIFFERENTIALon 09-19 Basophils (Bld) [#/Vol] 0.10 10*3/uL Normal 0.00 - 0.10 [facility] Comment on above: Performed By: #### C BCDF #### [place] [id number] Basophils/100 WBC (Bld) 1.2 % Normal 0.0 - 2.0 [facility] Comment on above: Performed By: #### C BCDF #### [place] [id number] Eosinophils (Bld) [#/Vol] 0.40 10*3/uL Normal 0.00 - 0.70 [facility] Comment on above: Performed By: #### C BCDF #### [place] [id number] Eosinophils/100 WBC (Bld) 8.1 % Normal 0.0 - 6.0 [facility] Comment on above: Performed By: #### C BCDF #### [place] [id number] Erythrocyte distribution width (RBC) [Ratio] 12.3 % Normal 11.5 - 14.5 [facility] Comment on above: Performed By: #### C BCDF #### [place] [id number] Hematocrit (Bld) [Volume fraction] 38.6 % Normal 36.0 - 46.0 [facility] Comment on above: Performed By: #### C BCDF #### [place] [id number] Hemoglobin (Bld) [Mass/Vol] 12.5 g/dL Normal 12.0 - 16.0 [facility] Comment on above: Performed By: #### C BCDF #### [address] [address] Lymphocytes (Bld) [#/Vol] 1.40 10*3/uL Normal 1.20 - 4.80 [facility] Comment on above: Performed By: #### C BCDF #### [address] [address] Lymphocytes/100 WBC (Bld) 27.5 % Normal 13.0 - 44.0 [facility] Comment on above: Performed By: #### C BCDF #### [address] [address] MCHC (RBC) [Mass/Vol] 32.5 g/dL Normal 32.0 - 36.0 [facility] Comment on above: Performed By: #### C BCDF #### [address] [address] MCV (RBC) [Entitic vol] 89 fL Normal 80 - 100 [facility] Comment on above: Performed By: #### C BCDF #### [address] [address] Monocytes (Bld) [#/Vol] 0.30 10*3/uL Normal 0.10 - 1.00 [facility] Comment on above: Performed By: #### C BCDF #### [address] [address] Monocytes/100 WBC (Bld) 6.5 % Normal 2.0 - 10.0 [facility] Comment on above: Performed By: #### C BCDF #### [address] [address] Neutrophils (Bld) [#/Vol] 2.90 10*3/uL Normal 1.20 - 7.70 [facility] Comment on above: Result Comment: Perc ent differential counts (%) should be interpreted in the context of the absolute cell counts (cells/L). Performed By: #### C BCDF #### [address] [place] [address] Neutrophils/100 WBC (Bld) 56.7 % Normal 40.0 - 80.0 [facility] Comment on above: Performed By: #### C BCDF #### [address] [address] Platelets (Bld) [#/Vol] 209 10*3/uL Normal 150 - 450 [facility] Comment on above: Performed By: #### C BCDF #### [address] [address] RBC 4.33 x10E12/L Normal 4.00 - 5.20 [facility] Comment on above: Performed By: #### C BCDF #### [address] [address] WBC (Bld) [#/Vol] 5.2 10*3/uL Normal 4.4 - 11.3 [facility] Comment on above: Performed By: #### C BCDF #### [address] [address] CHEST 1 VIEWon 09-19-2020 CHEST 1 VIEW Patient Name: LEAH JERRY STUDY: CHEST 1 VIEW; 09/19/2020 12:19 pm INDICATION: sob. COMPARISON: None. ACCESSION NUMBER(S): [id number] ORDERING CLINICIAN: RACH LAWRENCE FINDINGS: A single AP portable radiograph of the chest was obtained. No focal infiltrate, pleural effusion or pneumothorax is identified. The cardiac silhouette is within normal limits for size. IMPRESSION: No focal infiltrate or pneumothorax is identified. Electronically signed by: RAH ROBERTSON MD [facility] Provider Note - ED v2on Provider Note - ED v2 Provider Note - ED v2: Chart Review: ED NOTES ED NOTES: Patient is a 54-year-old female with history of asthma who presented to the ER today with shortness of breath. 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 She denied chest pain. Denied cough, recent illness, fever or chills. She does use nebulizers and inhalers at home. HISTORY OF PRESENTING ILLNESS LEAH is a 54 year old Female and was seen by me at 19-Sep-2020 12:29 for a chief complaint of shortness of breath (patient was at work and was on break and became shortness of breath, patient has history of asthma and has used rescue inhaler wihtout relief. Denies pain, fever, cough)(1). Triage Information: Most recent Vital Sign Value Date Temp (F): 98.2 09-19-2020 11:56 Temp (C): 36.7 09-19-2020 11:56 Heart Rate (beats/min): 102 09-19-2020 11:56 Respirations (breaths/min): 22 09-19-2020 11:56 SpO2 (%): 94 09-19-2020 11:56 BP Systolic (mm Hg): 136 09-19-2020 11:56 BP Diastolic (mm Hg): 86 09-19-2020 11:56 PAST MEDICAL HISTORY ATTESTATION: I have reviewed and confirmed nurse's/medic's notes for patient's medications, allergies, and medical, surgical, family and social history ALLERGIES/INTOLERANCES: Allergy Allergen: Adderall Type: Drug Reaction: Unknown Allergen: Betadine Type: Drug Reaction: Unknown Allergen: aminophylline Type: Drug Reaction: Unknown Allergen: povidone iodine topical Type: Drug Reaction: Unknown Allergen: tetracycline Type: Drug Reaction: Unknown Allergen: Seafood Type: Food Reaction: Unknown Allergen: Shell Fish Type: Food Reaction: Unknown HEALTH HISTORY: No documented data. OUTPATIENT MEDICATIONS: Home Medications Review Status for Reconciliation: Not Done Med Status: Patient Currently Takes Medications Drug Name: albuterol 2.5 mg/3 mL (0.083%) inhalation solution Instructions: 3 milliliter(s) inhaled every 6 hours, As Needed Drug Name: amitriptyline 10 mg oral tablet Instructions: 1 tab(s) orally 3 times a day Drug Name: budesonide 0.5 mg/2 mL inhalation suspension Instructions: 2 milliliter(s) inhaled 2 times a day Drug Name: cyclobenzaprine 5 mg oral tablet Instructions: 1 tab(s) orally 3 times a day Drug Name: haloperidol 10 mg oral tablet Instructions: 1 tab(s) orally once a day (at bedtime) Drug Name: KlonoPIN 0.5 mg oral tablet Instructions: 1 tab(s) orally 2 times a day Drug Name: Minipress 5 mg oral capsule Instructions: 1 cap(s) orally once a day (at bedtime) Drug Name: omeprazole 40 mg oral delayed release capsule Instructions: 1 cap(s) orally once a day (at bedtime) Drug Name: traZODone 150 mg oral tablet Instructions: 1.5 tab(s) orally once a day (at bedtime) Drug Name: Ventolin HFA 90 mcg/inh inhalation aerosol Instructions: 2 puff(s) inhaled every 6 hours, As Needed Drug Name: Zofran 4 mg oral tablet Instructions: 1 tab(s) orally every 8 hours, As Needed Drug Name: predniSONE 10 mg oral tablet Instructions: 1 tab(s) orally once a day SIGNIFICANT EVENTS: Past Medical History Description:asthma [employer]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 ENT: No pharyngitis, Cardiac: No chest pain, Pulmonary: No Reported shortness of breath GI: No abdominal pain, change in bowel habits, melena, hematemesis, hematochezia, nausea, vomiting, diarrhea. Skin: No rashes. Review of systems is otherwise negative unless stated above or in history of present illness. RESULTS/VITAL SIGNS RESULTS: Recent Lab Results: I have reviewed these laboratory results: Complete Blood Count + Differential [Drawn 19-Sep-2020 12:14:00], Basic Metabolic Panel [Drawn 19-Sep-2020 12:14:00], Troponin I, Serum [Drawn 19-Sep-2020 12:14:00]. Radiology Results: Xray Chest 1 View [Sep 19 2020 12:26PM] VITAL SIGNS: T PRBP SpO2O2(LPM) %FiO2 Method 19-Sep-2020 13:00:[id number] 94 19-Sep-2020 11:56:[id number] 94 room air, no respiratory support EKG INTERPRETATION #1: Impression: sinus tachycardia at 104, normal axis, no acute ST elevations or depressions. Normal QRS, QT and FL intervals. PHYSICAL EXAM Image Comments: Physical Exam: Appearance: Alert, oriented , cooperative, in no acute distress. Well nourished & well hydrated. Skin: Intact, dry skin, no lesions, rash, petechiae or purpura. Eyes: PERRLA, EOMs intact, Conjunctiva pink with no redness or exudates. Cornea & anterior chamber are clear, Eyelids without lesions. No scleral icterus. ENT: Hearing grossly intact. External auditory canals patent, Nares patent, mucus membranes moist. Dentition without lesions. Pharynx clear, uvula midline. Neck: Supp (more content not included)... Normal [facility] Risk Screen - Adult Emergenc yon 09-19-2020 Risk Screen - Adult Emergency Preferred Language: Preferred Language: Preferred Language for Discussing Health Care (patient/designee)[place] Advanced Directives: Advance Directive/DNRno Family Violence Adult: Abuse Screen: Are you or have you been threatened or abused physically, emotionally, or sexually by anyoneno Learning Assessment (Patient): Learning Assessment (Patient): Patient is Able to be Assessed for Learningyes Factors Influencing Readiness to Learnnone Factors that Impact Ability to Learnnone Devices/Methods Used to Communicatenone Learning Preferencesverbal instruction; written material Cultural Considerationsnone Developmental Considerationsnone Yazidism Considerationsnone Learning Assessment (Other Learner): Learning Assessment (Other Learner): Other learner availableno Pressure Injury/TB/Substance: Pressure Injury: Pressure Injury Present on Admissionno Do you have a coughno Substance Use Current or Former Historynever: Cigarette/Tobacco, e-Cigarette/Vaping, Alcohol, Street Drugs Admission Risk Screen: Significant IndicatorsComplete CAGE: CAGE: Is this an injured patient at a Trauma Center ([facility]/Jen/Adria/Selin/Cher Rosales/Rodolfo): no Electronic Signatures: Paradise aLdd (SUPV) (Signed 19-Sep-2020 12:00) Authored: Preferred Language, Advanced Directives, Family Violence Adult, Learning Assessment (Patient), Learning Assessment (Other Learner), Pressure Injury/TB/Substance, Pressure Injury, CAGE Last Updated: 19-Sep-2020 12:00 by Paradise Ladd (SUPV) Normal [facility] TROPONIN Ion 09-19-2020 Troponin I.cardiac [Mass/Vol] ng/mL Normal 0.00 - 0.03 [facility] Comment on above: Result Comment: LESS THAN 0.04 NG/ML: NEGATIVE REPEAT TESTING IN THREE TO SIX HOURS IF CLINICALLY INDICATED. 0.04 - 0.5 NG/ML: CONSISTENT WITH POSSIBLE CARDIAC DAMAGE AND POSSIBLE INCREASED CLINICAL RISK. SERIAL MEASUREMENTS MAY HELP ASSESS EXTENT OF MYOCARDIAL DAMAGE. >0.5 NG/ML: CONSISTENT WITH CARDIAC DAMAGE, INCREASED CLINICAL RISK AND MYOCARDIAL INFARCTION. SERIAL MEASUREMENTS MAY HELP ASSESS EXTENT OF MYOCARDIAL DAMAGE. . Note: Troponin I testing is performed using different testing methodology at [facility] than at other [facility]. Direct result comparisons should only be made within the same method. Performed By: #### T ROP2 #### [place] [id number] [place] [id number] Triage - EDon 09-19-2020 Triage - ED Quick Triage: Are You no Are You Currently Breastfeedingno Chart Review: ARRIVAL INFORMATION Mode of Arrival: private vehicle CHIEF COMPLAINT LEAH JERRY is a Female patient with a chief complaint of shortness of breath (patient was at work and was on break and became shortness of breath, patient has history of asthma and has used rescue inhaler wihtout relief. Denies pain, fever, cough). Triage Date/Time: 19-Sep-2020 11:57 DAVIDE: 3 Pain Rating (0-10): 0 = None Vital Signs: Temperature: 98.2F ( 36.7C) taken oral Blood Pressure: 136/86 Mean: Heart Rate: 102 Respiratory Rate: 22 Pulse Oximetry: 94% on room air, no respiratory support. Height: 5 feet 4 inches. 162.5 CM Weight: 154.3 pounds. Calculated 70.0 kg. 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 Symptoms Are Negative For: body aches, chest pain, chills, congestion, cough, diaphoresis, fever, headache and malaise. Risk Screens Suicide Risk Screen In the Past Month: Have you wished you were or wished you could go to sleep and not wake up no In the Past Month: Have you had any actual thoughts of killing yourself no In Your Lifetime: Have you ever done anything, started to do anything, or prepared to do anything to end your life no Hayes Fall Scale Screening Has the patient fallen before (or is the patient in the ED as a result of a fall) has not had a fall Does the patient have an impaired gait does not have impaired gait Is the patient cognitively impaired not cognitively impaired Interventions: Hayes Fall Interventions: LOW INTERVENTIONS: *patient oriented to surroundings and call system, * patient/family falls education completed and documented, *patients fall status communicated during bedside handoff, *whiteboard updated, *mode of toileting discussed with patient, *bed in low position with brakes locked, *call light in reach, * non-skid footwear TRAVEL HISTORY Travel History Coronavirus Screening: no exposure or symptoms Travel Exposure History: NO travel to International locations in the past 30 days PAIN Pain Scale Used: LAYLA Pain Rating (0-10): 0 = None Past Medical History: Past Medical History Reviewedyes asthma: Past Medical History, Active Electronic Signatures: Paradise Ladd (SUPV) (Signed 19-Sep-2020 11:59) Entered: Risk Screens, Pain, Travel History, Chart Review, Scores, Past Medical History Authored: Quick Triage, Risk Screens, Pain, Travel History, Chart Review, Scores, Past Medical History Last Updated: 19-Sep-2020 11:59 by Paradise Ladd (SUPV) [facility] Bacteria identified Anaer cx Nom (Unsp spec) Anaerobic microbial culture No anaerobic bacteria isolated. [facility] Work Phone: Bacteria identified Cx Nom ( Wound) Wound Culture Meth. resistant Stap h. aureus [facility] Work Phone: COVID-19 virus antigen assay SARS-CoV-2 (COVID-19) Ag IA.rapid Ql (Resp) [facility] Work Phone: Gram stain for investigation of transfusion reaction Microscopic observation Gram stain Nom (Unsp spec) [facility] Work Phone: Influenza virus A and B and SARS-CoV-2 (COVID-19) Ag panel - Upper respiratory specim SARS-CoV-2 & FLU Antigen (Rapid) SARS-CoV-2 (COVID 19) [facility] Work Phone: Laboratory - Microbiology an d Antimicrobial susceptibility Bacteria identified Cx Nom (Bld) No growth in 5 days. [facility] Work Phone: No Panel Information Nasal Screen MRSA/MSSA [facility] Work Phone: Respiratory Panel (PCR) [facility] Work Phone: SARS-CoV-2 & FLU Antigen (Rapid) [facility] Work Phone: Streptococcus pneumoniae Antigen (M [facility] Work Phone: Vital Signs Date Time Vital Sign Value Performing Clinician Facility 11-08-2024 12:39-0400 Body height 155.57 cm Taylor Fielsd [employer] Work Phone: [phone] [place] [address] 11-08-2024 12:39-0400 Body mass index (BMI) [Ratio] 26.6 kg/m2 Taylor Fields [employer] Work Phone: 8(753)724-832498 [place] [address] 11-08-2024 12:39-0400 Body temperature 98.8 [degF] [facility] [employer] Work Phone: 9(916)404-708298 [place] [address] 11-08-2024 12:39-0400 Body weight 64.58 kg Taylor Fields [employer] Work Phone: 6(336)085-705698 [place] [address] 11-08-2024 12:39-0400 Diastolic blood pressure 82 mm[Hg] Taylor Fields [employer] Work Phone: 4(042)555-920298 [place] [address] 11-08-2024 12:39-0400 Heart rate 79 /min Taylor Fields [employer] Work Phone: 1(719)114-383698 [place] [address] 11-08-2024 12:39-0400 Respiratory rate 17 /min Taylor Fields [employer] Work Phone: 7(610)[phone] [place] [address] 11-08-2024 12:39-0400 SaO2% (BldA) [Mass fraction] 98 % Taylor Fields [employer] Work Phone: [phone])762-366498 [place] [address] 11-08-2024 12:39-0400 Systolic blood pressure 128 mm[Hg] Taylor Fields [employer] Work Phone: 3([phone])345-792194 [address] 09-02-2024 14:19-0400 Body height 157.48 cm Taylor Fields [employer] Work Phone: 0(317)691-495[address] [place] [address] 09-02-2024 14:19-0400 Body mass index (BMI) [Ratio] 25.7 kg/m2 Taylor Fields [employer] Work Phone: 5(138)556-290302 [place] [address] 09-02-2024 14:19-0400 Body weight 63.72 kg Taylor Fields [employer] Work Phone: 6([phone])628-279202 [place] [address] 09-02-2024 14:19-0400 Diastolic blood pressure 82 mm[Hg] Taylor Fields [employer] Work Phone: 6(179)930-245602 [place] [address] 09-02-2024 14:19-0400 Heart rate 74 /min Taylor Fields [employer] Work Phone: 5(442)355-394802 [place] [address] 09-02-2024 14:19-0400 Respiratory rate 16 /min Taylor Fields [employer] Work Phone: 4(260)168-123602 [place] [address] 09-02-2024 14:19-0400 SaO2% (BldA) [Mass fraction] 98 % Taylor Fields [employer] Work Phone: 3(088)407-406102 [place] [address] 09-02-2024 14:19-0400 Systolic blood pressure 120 mm[Hg] Taylor Fields [employer] Work Phone: 2(154)841-359102 [place] [address] 08-16-2024 14:50-0400 Body height 157.48 cm Taylor Fields [employer] Work Phone: 4(394)[phone] [place] [address] 08-13-2024 07:57-0400 Body temperature 98.1 [degF] Taylor Fields [employer] Work Phone: 7([phone])857-105302 [place] [address] 08-13-2024 07:57-0400 Diastolic blood pressure 79 mm[Hg] Taylor Fields [employer] Work Phone: 2(228)981-191902 [place] [address] 08-13-2024 07:57-0400 Heart rate 68 /min Taylor Fields [employer] Work Phone: 7(353)[phone] [place] [address] 08-13-2024 07:57-0400 Respiratory rate 18 /min Taylor Fields [employer] Work Phone: [facility] 08-13-2024 07:57-0400 SaO2% (BldA) [Mass fraction] 94 % Taylor Fields [employer] Work Phone: [facility] [facility] 08-13-2024 07:57-0400 Systolic blood pressure 131 mm[Hg] Taylor Fields [employer] Work Phone: [facility] 08-13-2024 06:41-0400 Body height 157.48 cm Taylor Fields [employer]CRA[employer]C Work Phone: [facility] 08-13-2024 06:41-0400 Body mass index (BMI) [Ratio] 25.6 kg/m2 Taylor Fields [employer]C Work Phone: [facility] 08-13-2024 06:41-0400 Body weight 63.54 kg Taylor Fields [employer]CRA[employer]TER[employer]C Work Phone: [facility] 06-17-2024 08:47-0500 Body height 157.5 cm Mimi Lott APRN.PLASTER HELPER Work Phone: [facility] 06-17-2024 08:47-0500 Body mass index (BMI) [Ratio] 24.84 kg/m2 Mimi Lott APRN.PLASTER HELPER Work Phone: [facility] 06-17-2024 08:47-0500 Body temperature 97.81 [degF] Mimi Lott APRN.PLASTER HELPER Work Phone: [facility] 06-17-2024 08:47-0500 Body weight 61.6 kg Mimi Lott APRN.PLASTER HELPER Work Phone: [facility] 06-17-2024 08:47-0500 Diastolic blood pressure 69 mm[Hg] Mimi Lott APRN.PLASTER HELPER Work Phone: [facility] 06-17-2024 08:47-0500 Heart rate 75 /min Mimi Lott APRN.PLASTER HELPER Work Phone: [facility] 06-17-2024 08:47-0500 Systolic blood pressure 124 mm[Hg] Mimi Lott APRN.CNP Work Phone: [facility] 06-14-2024 14:49-0500 Body mass index (BMI) [Ratio] 24.9 kg/m2 Elyssa Atanasov PA Work Phone: [facility] 06-14-2024 14:49-0500 Body weight 61.74 kg Elyssa Atanasov PA Work Phone: [facility] 06-14-2024 14:49-0500 Diastolic blood pressure 72 mm[Hg] Elyssa Atanasov PA Work Phone: [facility] 06-14-2024 14:49-0500 Heart rate 77 /min Elyssa Atanasov PA Work Phone: [facility] 06-14-2024 14:49-0500 Respiratory rate 16 /min Elyssa Atanasov PA Work Phone: [facility] 06-14-2024 14:49-0500 SaO2% (BldA) [Mass fraction] 97 % Elyssa Atanasov PA Work Phone: [facility] 06-14-2024 14:49-0500 Systolic blood pressure 136 mm[Hg] Elyssa Atanasov PA Work Phone: [facility] 04-22-2024 07:15-0500 Body temperature 98 [degF] Elyssa Atanasov PA Work Phone: [facility] 04-22-2024 07:15-0500 Diastolic blood pressure 86 mm[Hg] Elyssa Atanasov PA Work Phone: [facility] 04-22-2024 07:15-0500 Heart rate 78 /min Elyssa Atanasov PA Work Phone: [facility] 04-22-2024 07:15-0500 Respiratory rate 16 /min Elyssa Atanasov PA Work Phone: [facility] 04-22-2024 07:15-0500 SaO2% (BldA) [Mass fraction] 96 % Elyssa Moralesnasov PA Work Phone: [facility] 04-22-2024 07:15-0500 Systolic blood pressure 104 mm[Hg] Elyssa Moralesnasov PA Work Phone: [facility] 04-22-2024 05:59-0500 Body mass index (BMI) [Ratio] 23.8 kg/m2 Elyssa Andrewnasov PA Work Phone: [facility] 04-22-2024 05:59-0500 Body weight 59 kg Elyssa Atanasov PA Work Phone: [facility] 04-19-2024 22:21-0500 Body temperature 96.4 [degF] Elyssa Moralesnasov PA Work Phone: 4(321)800-437256 [place] [address] 04-19-2024 22:21-0500 Diastolic blood pressure 79 mm[Hg] Elyssa Moralesnasov PA Work Phone: [facility] 04-19-2024 22:21-0500 Heart rate 98 /min Elyssa Moralesnasov PA Work Phone: [facility] 04-19-2024 22:21-0500 Respiratory rate 14 /min Elyssa Moralesnasov PA Work Phone: [facility] 04-19-2024 22:21-0500 SaO2% (BldA) [Mass fraction] 97 % Elyssa Moralesnasov PA Work Phone: [facility] 04-19-2024 22:21-0500 Systolic blood pressure 170 mm[Hg] Elyssa Moralesnasov PA Work Phone: [facility] 04-19-2024 18:04-0500 Body mass index (BMI) [Ratio] 25 kg/m2 Elyssa Atanasov PA Work Phone: 7(381)226-147656 [place] [address] 04-19-2024 18:04-0500 Body weight 62.14 kg Elyssa Andrewnasov PA Work Phone: 5(412)377-414356 [place] [address] 04-14-2024 15:16-0500 Body temperature 98.3 [degF] Elyssa Atanasov PA Work Phone: [facility] 04-14-2024 15:16-0500 Diastolic blood pressure 71 mm[Hg] Elyssa Atanasov PA Work Phone: [facility] 04-14-2024 15:16-0500 Heart rate 82 /min Elyssa Atanasov PA Work Phone: [facility] 04-14-2024 15:16-0500 Respiratory rate 17 /min Elyssa Atanasov PA Work Phone: [facility] 04-14-2024 15:16-0500 SaO2% (BldA) [Mass fraction] 97 % Elyssa Atanasov PA Work Phone: [facility] 04-14-2024 15:16-0500 Systolic blood pressure 138 mm[Hg] Elyssa Atanasov PA Work Phone: [facility] 04-14-2024 13:42-0500 Body mass index (BMI) [Ratio] 25.4 kg/m2 Elyssa Atanasov PA Work Phone: [facility] 04-14-2024 13:42-0500 Body weight 63.04 kg Elyssa Atanasov PA Work Phone: [facility] 08-18-2023 11:58-0400 Body temperature 98.2 [degF] Dr. Carolyn West Work Phone: [facility] 08-18-2023 11:58-0400 Diastolic blood pressure 82 mm[Hg] Dr. Carolyn West Work Phone: [facility] 08-18-2023 11:58-0400 Heart rate 82 /min Dr. Carolyn West Work Phone: [facility] 08-18-2023 11:58-0400 Respiratory rate 16 /min Dr. Carolyn West Work Phone: [facility] 08-18-2023 11:58-0400 SaO2% (BldA) [Mass fraction] 98 % Dr. Carolyn West Work Phone: 6(463)462-491002 [place] [address] 08-18-2023 11:58-0400 Systolic blood pressure 156 mm[Hg] Dr. Carolyn West Work Phone: 5(538)346-024502 [place] [address] 08-18-2023 09:22-0400 Body height 157.[address] Carolyn West Work Phone: 3(418)787-704302 [place] [address] 08-18-2023 09:22-0400 Body mass index (BMI) [Ratio] 24.3 kg/m2 Dr. Carolyn West Work Phone: 3(575)218-943502 [place] [address] 08-18-2023 09:22-0400 Body weight 60.[address] Carolyn West Work Phone: 8(316)025-849202 [place] [address] 08-12-2023 10:40-0400 Body temperature 97 [degF] Dr. Carolyn West Work Phone: 6(121)496-136602 [place] [address] 08-12-2023 10:40-0400 Diastolic blood pressure 84 mm[Hg] Dr. Carolyn West Work Phone: 7(944)389-885002 [place] [address] 08-12-2023 10:40-0400 Heart rate 75 /min Dr. Carolyn West Work Phone: 2(573)926-674102 [place] [address] 08-12-2023 10:40-0400 Respiratory rate 16 /min Dr. Carolyn West Work Phone: 9(813)853-557602 [place] [address] 08-12-2023 10:40-0400 Systolic blood pressure 144 mm[Hg] Dr. Carolyn West Work Phone: 1(335)384-742602 [place] [address] 08-12-2023 10:30-0400 SaO2% (BldA) [Mass fraction] 100 % Dr. Carolyn West Work Phone: 3(903)161-565202 [place] [address] 08-12-2023 08:16-0400 Body height 157.[address] Carolyn West Work Phone: 9(853)897-152502 [place] [address] 08-12-2023 08:16-0400 Body mass index (BMI) [Ratio] 23.9 kg/m2 Dr. Carolyn West Work Phone: 8(057)980-576002 [place] [address] 08-12-2023 08:16-0400 Body weight 59.[address] Carolyn West Work Phone: 6(605)008-468402 [place] [address] 07-24-2023 15:25-0500 Body temperature 98 [degF] Dr. Carolyn West Work Phone: 0(967)424-226402 [place] [address] 07-24-2023 15:25-0500 Diastolic blood pressure 83 mm[Hg] Dr. Carolyn West Work Phone: 3(946)359-962102 [place] [address] 07-24-2023 15:25-0500 Heart rate 67 /min Dr. Carolyn West Work Phone: 6(294)541-610302 [place] [address] 07-24-2023 15:25-0500 Respiratory rate 16 /min Dr. Carolyn West Work Phone: 9(131)276-071102 [place] [address] 07-24-2023 15:25-0500 SaO2% (BldA) [Mass fraction] 96 % Dr. Carolyn West Work Phone: 7(802)016-012702 [place] [address] 07-24-2023 15:25-0500 Systolic blood pressure 139 mm[Hg] Dr. Carolyn West Work Phone: 0(484)614-853802 [place] [address] 07-24-2023 11:24-0500 Body height 157.[address] Carolyn West Work Phone: 0(113)961-585102 [place] [address] 07-24-2023 11:24-0500 Body mass index (BMI) [Ratio] 24.5 kg/m2 Dr. Carolyn West Work Phone: 3(157)200-753502 [place] [address] 07-24-2023 11:24-0500 Body weight 60.[address] Carolyn West Work Phone: 6(061)500-322502 [place] [address] 07-07-2023 07:13-0500 Body height 154.[address] Carolyn West Work Phone: 3(949)524-389702 [place] [address] 07-07-2023 07:13-0500 Body mass index (BMI) [Ratio] 26.4 kg/m2 Dr. Carolyn West Work Phone: 9(305)287-124902 [place] [address] 07-07-2023 07:13-0500 Body temperature 97.2 [degF] Dr. Carolyn West Work Phone: 7(539)439-192602 [place] [address] 07-07-2023 07:13-0500 Body weight 63.[address] Carolyn West Work Phone: 6(143)470-342402 [place] [address] 07-07-2023 07:13-0500 Diastolic blood pressure 97 mm[Hg] Dr. Carolyn West Work Phone: 5(184)778-633902 [place] [address] 07-07-2023 07:13-0500 Heart rate 102 /min Dr. Carolyn West Work Phone: 2(926)489-197102 [place] [address] 07-07-2023 07:13-0500 Respiratory rate 16 /min Dr. Carolyn West Work Phone: 4(636)918-421802 [place] [address] 07-07-2023 07:13-0500 SaO2% (BldA) [Mass fraction] 100 % Dr. Carolyn West Work Phone: 5(892)801-605802 [place] [address] 07-07-2023 07:13-0500 Systolic blood pressure 160 mm[Hg] Dr. Carolyn West Work Phone: 0(509)722-128702 [place] [address] 05-07-2023 09:40-0500 Body height 157.[address] Carolyn West Work Phone: 9(866)101-008402 [place] [address] 05-07-2023 09:40-0500 Body mass index (BMI) [Ratio] 26.6 kg/m2 Dr. Carolyn West Work Phone: 6(991)094-108002 [place] [address] 05-07-2023 09:40-0500 Body temperature 97 [degF] Dr. Carolyn West Work Phone: 8(555)623-511802 [place] [address] 05-07-2023 09:40-0500 Body weight 66.[address] Carolyn West Work Phone: 4(589)208-610102 [place] [address] 05-07-2023 09:40-0500 Diastolic blood pressure 72 mm[Hg] Dr. Carolyn West Work Phone: 5(004)277-673702 [place] [address] 05-07-2023 09:40-0500 Heart rate 87 /min Dr. Carolyn West Work Phone: 2(320)061-702802 [place] [address] 05-07-2023 09:40-0500 Respiratory rate 17 /min Dr. Carolyn West Work Phone: 2(382)680-169202 [place] [address] 05-07-2023 09:40-0500 SaO2% (BldA) [Mass fraction] 98 % Dr. Carolyn West Work Phone: 5(429)910-438902 [place] [address] 05-07-2023 09:40-0500 Systolic blood pressure 104 mm[Hg] Dr. Carolyn West Work Phone: 0(461)314-184102 [place] [address] 04-23-2023 14:12-0500 Body temperature 97.7 [degF] Dr. Carolyn West Work Phone: 7(512)221-590602 [place] [address] 04-23-2023 14:12-0500 Diastolic blood pressure 71 mm[Hg] Dr. Carolyn West Work Phone: 2(667)124-122802 [place] [address] 04-23-2023 14:12-0500 Heart rate 83 /min Dr. Carolyn West Work Phone: 5(062)210-383802 [place] [address] 04-23-2023 14:12-0500 Respiratory rate 16 /min Dr. Carolyn West Work Phone: 9(052)064-876202 [place] [address] 04-23-2023 14:12-0500 SaO2% (BldA) [Mass fraction] 93 % Dr. Carolyn West Work Phone: 5(543)259-180302 [place] [address] 04-23-2023 14:12-0500 Systolic blood pressure 134 mm[Hg] Dr. Carolyn West Work Phone: 8(490)694-054602 [place] [address] 04-23-2023 13:40-0500 Inhaled oxygen flow rate 2 L/min Dr. Carolyn West Work Phone: 7(163)251-271102 [place] [address] 04-23-2023 11:10-0500 Body height 157.[address] Carolyn West Work Phone: 7(884)620-132102 [place] [address] 04-23-2023 11:10-0500 Body mass index (BMI) [Ratio] 26.6 kg/m2 Dr. Carolyn West Work Phone: 5(377)234-635402 [place] [address] 04-23-2023 11:10-0500 Body weight [address] Carolyn West Work Phone: 4(188)131-915702 [place] [address] 02-28-2023 15:05-0400 Diastolic blood pressure 87 mm[Hg] Dr. Carolyn West Work Phone: 2(776)715-220702 [place] [address] 02-28-2023 15:05-0400 Heart rate 93 /min Dr. Carolyn West Work Phone: 2(922)931-185702 [place] [address] 02-28-2023 15:05-0400 Respiratory rate 18 /min Dr. Carolyn West Work Phone: 4(065)666-807402 [place] [address] 02-28-2023 15:05-0400 SaO2% (BldA) [Mass fraction] 98 % Dr. Carolyn West Work Phone: 9(604)038-954202 [place] [address] 02-28-2023 15:05-0400 Systolic blood pressure 139 mm[Hg] Dr. Carolyn West Work Phone: 4(594)936-392002 [place] [address] 02-28-2023 12:39-0400 Body height 157.[address] Carolyn West Work Phone: 4(880)080-505502 [place] [address] 02-28-2023 12:39-0400 Body mass index (BMI) [Ratio] 25.7 kg/m2 Dr. Carolyn West Work Phone: 5(505)741-177402 [place] [address] 02-28-2023 12:39-0400 Body temperature 97.7 [degF] Dr. Carolyn West Work Phone: 1(807)968-573402 [place] [address] 02-28-2023 12:39-0400 Body weight 63.[address] Carolyn West Work Phone: 8(735)000-125902 [place] [address] 01-01-2023 11:23-0400 Body height 154.[address] Carolyn West Work Phone: [facility] 01-01-2023 11:23-0400 Body mass index (BMI) [Ratio] 27.4 kg/m2 Dr. Carolyn West Work Phone: 7(968)573-844498 [place] [address] 01-01-2023 11:23-0400 Body temperature 98.1 [degF] Dr. Carolyn West Work Phone: 2(623)553-400898 [place] [address] 01-01-2023 11:23-0400 Body weight 65.[address] Carolyn West Work Phone: 3(356)870-139998 [place] [address] 01-01-2023 11:23-0400 Diastolic blood pressure 80 mm[Hg] Dr. Carolyn West Work Phone: 8(459)438-611102 [place] [address] 01-01-2023 11:23-0400 Heart rate 98 /min Dr. Carolyn West Work Phone: 6(641)372-883498 [place] [address] 01-01-2023 11:23-0400 Respiratory rate 16 /min Dr. Carolyn West Work Phone: 0(219)416-525098 [place] [address] 01-01-2023 11:23-0400 SaO2% (BldA) [Mass fraction] 100 % Dr. Carolyn West Work Phone: 5(564)599-118694 [address] 01-01-2023 11:23-0400 Systolic blood pressure 135 mm[Hg] Dr. Carolyn West Work Phone: 0(567)883-200298 [place] [address] 12-30-2022 14:07-0400 Body temperature 98.71 [degF] Taylor Phan DIRECTOR OF [employer].PLASTER HELPER Work Phone: [facility] 12-30-2022 14:07-0400 Body weight 64.59 kg Taylor Phan DIRECTOR [employer].PLASTER HELPER Work Phone: [facility] 12-30-2022 14:07-0400 Diastolic blood pressure 66 mm[Hg] Taylor Phan DIRECTOR [employer].PLASTER HELPER Work Phone: [facility] 12-30-2022 14:07-0400 Heart rate 118 /min Taylor Phan DIRECTOR [employer].PLASTER HELPER Work Phone: [facility] 12-30-2022 14:07-0400 Respiratory rate 18 /min Taylor Phan DIRECTOR [employer].PLASTER HELPER Work Phone: [facility] 12-30-2022 14:07-0400 SaO2% (BldA) [Mass fraction] 97 % Taylor Phan DIRECTOR [employer].PLASTER HELPER Work Phone: [facility] 12-30-2022 14:07-0400 Systolic blood pressure 169 mm[Hg] Taylor Phan DIRECTOR [employer].PLASTER HELPER Work Phone: [facility] 11-25-2022 16:15-0400 Diastolic blood pressure 126 mm[Hg] Dr. Carolyn West Work Phone: 1(415)833-023898 [place] [address] 11-25-2022 16:15-0400 SaO2% (BldA) [Mass fraction] 95 % Dr. Carolyn West Work Phone: 2(161)018-230698 [place] [address] 11-25-2022 16:15-0400 Systolic blood pressure 140 mm[Hg] Dr. Carolyn West Work Phone: 1(424)759-989898 [place] [address] 11-25-2022 13:55-0400 Body height 157.[address] Carolyn West Work Phone: 7(874)750-005598 [place] [address] 11-25-2022 13:55-0400 Body mass index (BMI) [Ratio] 25.8 kg/m2 Dr. Carolyn West Work Phone: 3(322)385-785698 [place] [address] 11-25-2022 13:55-0400 Body temperature 98.1 [degF] Dr. Carolyn West Work Phone: 3(331)974-466998 [place] [address] 11-25-2022 13:55-0400 Body weight [address] Carolyn Wets Work Phone: 7(391)652-681398 [place] [address] 11-25-2022 13:55-0400 Heart rate 86 /min Dr. Carolyn West Work Phone: 5(141)015-299598 [place] [address] 11-25-2022 13:55-0400 Respiratory rate 14 /min Dr. Carolyn West Work Phone: [facility] 11-04-2022 13:35-0400 Body mass index (BMI) [Ratio] 24.4 kg/m2 Dr. Carolyn West Work Phone: [facility] 11-04-2022 13:35-0400 Body weight 60.[address] Carolyn West Work Phone: [facility] 07-15-2022 10:07-0500 Body height 157.48 cm [facility] 07-15-2022 10:07-0500 Body mass index (BMI) [Ratio] 26 kg/m2 [facility] 07-15-2022 10:07-0500 Body temperature 96.7 [degF] [facility] 07-15-2022 10:07-0500 Body weight 64.63 kg [facility] 07-15-2022 10:07-0500 Diastolic blood pressure 97 mm[Hg] [facility] 07-15-2022 10:07-0500 Heart rate 110 /min [facility] 07-15-2022 10:07-0500 Respiratory rate 24 /min [facility] 07-15-2022 10:07-0500 SaO2% (BldA) [Mass fraction] 94 % [facility] 07-15-2022 10:07-0500 Systolic blood pressure 150 mm[Hg] [facility] 06-14-2022 12:27-0500 Diastolic blood pressure 81 mm[Hg] No Primary Care Physician [facility] 06-14-2022 12:27-0500 Heart rate 72 /min No Primary Care Physician [facility] 06-14-2022 12:27-0500 Respiratory rate 15 /min No Primary Care Physician [facility] 06-14-2022 12:27-0500 SaO2% (BldA) [Mass fraction] 98 % No Primary Care Physician [facility] 06-14-2022 12:27-0500 Systolic blood pressure 139 mm[Hg] No Primary Care Physician [facility] 06-14-2022 09:49-0500 Body height 157.48 cm No Primary Care Physician [facility] 06-14-2022 09:49-0500 Body mass index (BMI) [Ratio] 28.1 kg/m2 No Primary Care Physician [facility] 06-14-2022 09:49-0500 Body temperature 96.8 [degF] No Primary Care Physician [facility] 06-14-2022 09:49-0500 Body weight 69.85 kg No Primary Care Physician [facility] 06-09-2022 01:09-0500 Body temperature 98 [degF] No Primary Care Physician [facility] 06-09-2022 01:09-0500 Diastolic blood pressure 70 mm[Hg] No Primary Care Physician [facility] 06-09-2022 01:09-0500 Heart rate 90 /min No Primary Care Physician [facility] 06-09-2022 01:09-0500 Respiratory rate 16 /min No Primary Care Physician [facility] 06-09-2022 01:09-0500 SaO2% (BldA) [Mass fraction] 98 % No Primary Care Physician [facility] 06-09-2022 01:09-0500 Systolic blood pressure 142 mm[Hg] No Primary Care Physician [facility] 06-08-2022 22:23-0500 Body height 157.48 cm No Primary Care Physician [facility] 06-08-2022 22:23-0500 Body mass index (BMI) [Ratio] 28.3 kg/m2 No Primary Care Physician [facility] 06-08-2022 22:23-0500 Body weight 70.3 kg No Primary Care Physician [facility] 05-08-2022 12:00-0500 Body height 157.48 cm No Primary Care Physician [facility] Work Phone: 05-08-2022 12:00-0500 Body mass index (BMI) [Ratio] 25.7 kg/m2 No Primary Care Physician [facility] 05-08-2022 12:00-0500 Body temperature 97.2 [degF] No Primary Care Physician [facility] 05-08-2022 12:00-0500 Body weight 63.95 kg No Primary Care Physician [facility] 05-08-2022 12:00-0500 Diastolic blood pressure 80 mm[Hg] No Primary Care Physician [facility] 05-08-2022 12:00-0500 Heart rate 89 /min No Primary Care Physician [facility] 05-08-2022 12:00-0500 Respiratory rate 18 /min No Primary Care Physician [facility] 05-08-2022 12:00-0500 SaO2% (BldA) [Mass fraction] 92 % No Primary Care Physician [facility] 05-08-2022 12:00-0500 Systolic blood pressure 144 mm[Hg] No Primary Care Physician [facility] 03-28-2022 18:17-0500 Diastolic blood pressure 91 mm[Hg] No Primary Care Physician [facility] 03-28-2022 18:17-0500 Heart rate 89 /min No Primary Care Physician [facility] 03-28-2022 18:17-0500 Respiratory rate 18 /min No Primary Care Physician [facility] 03-28-2022 18:17-0500 SaO2% (BldA) [Mass fraction] 94 % No Primary Care Physician [facility] 03-28-2022 18:17-0500 Systolic blood pressure 142 mm[Hg] No Primary Care Physician [facility] 03-28-2022 15:23-0500 Body height 152.4 cm No Primary Care Physician [facility] Work Phone: 03-28-2022 15:23-0500 Body mass index (BMI) [Ratio] 30.4 kg/m2 No Primary Care Physician [facility] 03-28-2022 15:23-0500 Body temperature 97.4 [degF] No Primary Care Physician [facility] 03-28-2022 15:23-0500 Body weight 70.63 kg No Primary Care Physician [facility] 03-07-2022 13:26-0400 Body temperature 98 [degF] No Primary Care Physician [facility] 03-07-2022 13:26-0400 Diastolic blood pressure 84 mm[Hg] No Primary Care Physician [facility] 03-07-2022 13:26-0400 Heart rate 96 /min No Primary Care Physician [facility] 03-07-2022 13:26-0400 Respiratory rate 16 /min No Primary Care Physician [facility] 03-07-2022 13:26-0400 SaO2% (BldA) [Mass fraction] 93 % No Primary Care Physician [facility] 03-07-2022 13:26-0400 Systolic blood pressure 153 mm[Hg] No Primary Care Physician [facility] 03-07-2022 10:37-0400 Body height 157 cm No Primary Care Physician [facility] Work Phone: 03-07-2022 10:37-0400 Body weight 72 kg No Primary Care Physician [facility] 03-06-2022 19:57-0400 Body mass index (BMI) [Ratio] 29.2 kg/m2 No Primary Care Physician [facility] 03-06-2022 16:55-0400 Heart rate 92 /min No Primary Care Physician [facility] Work Phone: 03-06-2022 16:55-0400 Respiratory rate 26 /min No Primary Care Physician [facility] Work Phone: 03-06-2022 15:40-0400 Body height 157.48 cm No Primary Care Physician [facility] Work Phone: 03-06-2022 15:40-0400 Body mass index (BMI) [Ratio] 29.6 kg/m2 No Primary Care Physician [facility] Work Phone: 03-06-2022 15:40-0400 Body temperature 98.3 [degF] No Primary Care Physician [facility] Work Phone: 03-06-2022 15:40-0400 Body weight 73.5 kg No Primary Care Physician [facility] Work Phone: 03-06-2022 15:40-0400 Diastolic blood pressure 87 mm[Hg] No Primary Care Physician [facility] Work Phone: 03-06-2022 15:40-0400 SaO2% (BldA) [Mass fraction] 95 % No Primary Care Physician [facility] Work Phone: 03-06-2022 15:40-0400 Systolic blood pressure 128 mm[Hg] No Primary Care Physician [facility] Work Phone: 02-21-2022 13:06-0400 Body temperature 98.9 [degF] No Primary Care Physician [facility] 02-21-2022 13:06-0400 Heart rate 93 /min No Primary Care Physician [facility] 02-21-2022 13:06-0400 Respiratory rate 14 /min No Primary Care Physician [facility] 02-21-2022 13:06-0400 SaO2% (BldA) [Mass fraction] 95 % No Primary Care Physician [facility] 02-21-2022 10:30-0400 Body height 157.48 cm No Primary Care Physician [facility] Work Phone: 02-21-2022 10:30-0400 Body mass index (BMI) [Ratio] 28 kg/m2 No Primary Care Physician [facility] 02-21-2022 10:30-0400 Body weight 69.39 kg No Primary Care Physician [facility] 02-21-2022 10:30-0400 Diastolic blood pressure 85 mm[Hg] No Primary Care Physician [facility] 02-21-2022 10:30-0400 Systolic blood pressure 137 mm[Hg] No Primary Care Physician [facility] 02-04-2022 10:16-0400 Heart rate 88 /min ROD MARIN Work Phone: [facility] Work Phone: 02-04-2022 10:16-0400 Respiratory rate 20 /min ROD MARIN Work Phone: [facility] Work Phone: 02-04-2022 10:16-0400 SaO2% (BldA) [Mass fraction] 98 % ROD MARIN Work Phone: [facility] Work Phone: 02-04-2022 08:16-0400 Body temperature 98.1 [degF] ROD MARIN Work Phone: [facility] Work Phone: 02-04-2022 08:16-0400 Diastolic blood pressure 86 mm[Hg] ROD MARIN Work Phone: [facility] Work Phone: 02-04-2022 08:16-0400 Systolic blood pressure 151 mm[Hg] ROD MARIN Work Phone: [facility] Work Phone: 02-04-2022 08:01-0400 Body height 157.48 cm ROD MARIN Work Phone: [facility] Work Phone: 02-04-2022 08:01-0400 Body mass index (BMI) [Ratio] 28 kg/m2 ROD MARIN Work Phone: [facility] Work Phone: 02-04-2022 08:01-0400 Body weight 69.39 kg ROD MARIN Work Phone: [facility] Work Phone: 12-10-2021 15:45-0400 Respiratory rate 18 /min ROD MARIN Work Phone: [facility] Work Phone: 12-10-2021 15:01-0400 Body height 157.48 cm ROD MARIN Work Phone: [facility] Work Phone: 12-10-2021 15:01-0400 Body mass index (BMI) [Ratio] 29.2 kg/m2 ROD MARIN Work Phone: [facility] Work Phone: 12-10-2021 15:01-0400 Body temperature 97.4 [degF] ROD MARIN Work Phone: [facility] Work Phone: 12-10-2021 15:01-0400 Body weight 72.57 kg ROD MARIN Work Phone: [facility] Work Phone: 12-10-2021 15:01-0400 Diastolic blood pressure 102 mm[Hg] ROD CAYETANO Work Phone: [facility] Work Phone: 12-10-2021 15:01-0400 Heart rate 102 /min ROD MARIN Work Phone: [facility] Work Phone: 12-10-2021 15:01-0400 SaO2% (BldA) [Mass fraction] 96 % ROD MARIN Work Phone: [facility] Work Phone: 12-10-2021 15:01-0400 Systolic blood pressure 158 mm[Hg] ROD MARIN Work Phone: [facility] Work Phone: 11-05-2021 14:24-0400 Body height 157.[address] Gilda Drake Work Phone: [facility] Work Phone: 10-16-2021 19:08-0400 Body temperature 97.39 [degF] Liseth Rubalcava MD Work Phone: [facility] 10-16-2021 19:08-0400 Body weight 72.12 kg Liseth Rubalcava MD Work Phone: [facility] 10-16-2021 19:08-0400 Diastolic blood pressure 80 mm[Hg] Liseth Rubalcava MD Work Phone: [facility] 10-16-2021 19:08-0400 Heart rate 105 /min iLseth Rubalcava MD Work Phone: [facility] 10-16-2021 19:08-0400 Respiratory rate 20 /min Liseth Rubalcava MD Work Phone: [facility] 10-16-2021 19:08-0400 SaO2% (BldA) [Mass fraction] 96 % Liseth Rubalcava MD Work Phone: [facility] 10-16-2021 19:08-0400 Systolic blood pressure 118 mm[Hg] Liseth Rubalcava MD Work Phone: [facility] 10-11-2021 14:21-0400 Body temperature 97.3 [degF] Dr. Gilda Drake Work Phone: [facility] Work Phone: 10-11-2021 14:21-0400 Diastolic blood pressure 81 mm[Hg] Dr. Gilda Drake Work Phone: [facility] Work Phone: 10-11-2021 14:21-0400 Heart rate 98 /min Dr. Gilda Drake Work Phone: [facility] Work Phone: 10-11-2021 14:21-0400 Systolic blood pressure 126 mm[Hg] Dr. Gilda Drake Work Phone: [facility] Work Phone: 10-09-2021 14:11-0400 Body temperature 98.2 [degF] Dr. Gilda Drake Work Phone: [facility] Work Phone: 10-09-2021 14:11-0400 Diastolic blood pressure 59 mm[Hg] Dr. Gilda Drake Work Phone: [facility] Work Phone: 10-09-2021 14:11-0400 Heart rate 88 /min Dr. Gilda Drake Work Phone: [facility] Work Phone: 10-09-2021 14:11-0400 Respiratory rate 18 /min Dr. Gilda Drake Work Phone: [facility] Work Phone: 10-09-2021 14:11-0400 SaO2% (BldA) [Mass fraction] 97 % Dr. iGlda Drake Work Phone: [facility] Work Phone: 10-09-2021 14:11-0400 Systolic blood pressure 122 mm[Hg] Dr. Gilda Drake Work Phone: [facility] Work Phone: 10-09-2021 06:00-0400 Body weight [address] Gilda Drake Work Phone: [facility] Work Phone: 10-05-2021 14:31-0400 Body height 157.[address] Gilda Drake Work Phone: [facility] Work Phone: 10-05-2021 11:00-0400 Inhaled oxygen flow rate 2 L/min ROD MARIN Work Phone: [facility] Work Phone: 10-05-2021 07:38-0400 Body mass index (BMI) [Ratio] 29.5 kg/m2 Dr. Gilda Drake Work Phone: [facility] Work Phone: 10-04-2021 12:28-0400 Body temperature 98.8 [degF] Dr. Gilda Drake Work Phone: [facility] Work Phone: 10-04-2021 12:28-0400 Diastolic blood pressure 74 mm[Hg] Dr. Gilda Drake Work Phone: [facility] Work Phone: 10-04-2021 12:28-0400 Heart rate 90 /min Dr. Gilda Drake Work Phone: [facility] Work Phone: 10-04-2021 12:28-0400 Respiratory rate 22 /min Dr. Gilda Drake Work Phone: [facility] Work Phone: 10-04-2021 12:28-0400 Systolic blood pressure 134 mm[Hg] Dr. Gilda Drake Work Phone: [facility] Work Phone: 10-04-2021 10:09-0400 Body height 157.[address] Gilda Drake Work Phone: [facility] Work Phone: 10-04-2021 10:09-0400 Body mass index (BMI) [Ratio] 29.2 kg/m2 Dr. Gilda Drake Work Phone: [facility] Work Phone: 10-04-2021 10:09-0400 Body weight 72.[address] Gilda Drake Work Phone: [facility] Work Phone: 10-04-2021 10:09-0400 SaO2% (BldA) [Mass fraction] 95 % Dr. Gilda Drake Work Phone: [facility] Work Phone: 08-26-2021 11:17-0400 Body height 157.[address] Gilda Drake Work Phone: [facility] Work Phone: 08-26-2021 11:17-0400 Body mass index (BMI) [Ratio] 30.2 kg/m2 Dr. Gilda Drake Work Phone: [facility] Work Phone: 08-26-2021 11:17-0400 Body temperature 97.6 [degF] Dr. Gilda Drake Work Phone: [facility] Work Phone: 08-26-2021 11:17-0400 Body weight 75.[address] Gilda Drake Work Phone: [facility] Work Phone: 08-26-2021 11:17-0400 Diastolic blood pressure 81 mm[Hg] Dr. Gilda Drake Work Phone: [facility] Work Phone: 08-26-2021 11:17-0400 Heart rate 101 /min Dr. Gilda Drake Work Phone: [facility] Work Phone: 08-26-2021 11:17-0400 Respiratory rate 17 /min Dr. Gilda Drake Work Phone: [facility] Work Phone: 08-26-2021 11:17-0400 SaO2% (BldA) [Mass fraction] 97 % Dr. Gilda Drake Work Phone: [facility] Work Phone: 08-26-2021 11:17-0400 Systolic blood pressure 136 mm[Hg] Dr. Gilda Drake Work Phone: [facility] Work Phone: 08-19-2021 16:57-0400 Heart rate 93 /min Dr. Gilda Drake Work Phone: [facility] Work Phone: 08-19-2021 16:57-0400 Respiratory rate 18 /min Dr. Gilda Drake Work Phone: [facility] Work Phone: 08-19-2021 16:50-0400 Inhaled oxygen flow rate 2 L/min ROD MARIN Work Phone: [facility] Work Phone: 08-19-2021 16:22-0400 Body mass index (BMI) [Ratio] 28.9 kg/m2 Dr. Gilda Drake Work Phone: [facility] Work Phone: 08-19-2021 16:22-0400 Body temperature 97.3 [degF] Dr. Gilda Drake Work Phone: [facility] Work Phone: 08-19-2021 16:22-0400 Body weight 71.[address] Gilda Drake Work Phone: [facility] Work Phone: 08-19-2021 16:22-0400 Diastolic blood pressure 93 mm[Hg] Dr. Gilda Drake Work Phone: [facility] Work Phone: 08-19-2021 16:22-0400 SaO2% (BldA) [Mass fraction] 90 % Dr. Gilda Drake Work Phone: [facility] Work Phone: 08-19-2021 16:22-0400 Systolic blood pressure 159 mm[Hg] Dr. Gilda Drake Work Phone: [facility] Work Phone: 07-16-2021 14:18-0500 Body temperature 98.6 [degF] Dr. Gilda Drake Work Phone: [facility] Work Phone: 07-16-2021 14:18-0500 Diastolic blood pressure 74 mm[Hg] Dr. Gilda Drake Work Phone: [facility] Work Phone: 07-16-2021 14:18-0500 Heart rate 86 /min Dr. Gilda Drake Work Phone: [facility] Work Phone: 07-16-2021 14:18-0500 Respiratory rate 18 /min Dr. Gilda Drake Work Phone: [facility] Work Phone: 07-16-2021 14:18-0500 SaO2% (BldA) [Mass fraction] 96 % Dr. Gilda Drake Work Phone: [facility] Work Phone: 07-16-2021 14:18-0500 Systolic blood pressure 139 mm[Hg] Dr. Gilda Drake Work Phone: [facility] Work Phone: 07-16-2021 13:18-0500 Body temperature 98.6 [degF] Dr. Gilda Drake Work Phone: [facility] Work Phone: 07-16-2021 13:18-0500 Diastolic blood pressure 74 mm[Hg] Dr. Gilda Drake Work Phone: [facility] Work Phone: 07-16-2021 13:18-0500 Heart rate 86 /min Dr. Gilda Drake Work Phone: [facility] Work Phone: 07-16-2021 13:18-0500 Respiratory rate 18 /min Dr. Gilda Drake Work Phone: [facility] Work Phone: 07-16-2021 13:18-0500 SaO2% (BldA) [Mass fraction] 96 % Dr. Gilda Drake Work Phone: [facility] Work Phone: 07-16-2021 13:18-0500 Systolic blood pressure 139 mm[Hg] Dr. Gilda Drake Work Phone: [facility] Work Phone: 07-15-2021 17:04-0500 Body mass index (BMI) [Ratio] 28.4 kg/m2 Dr. Gilda Drake Work Phone: [facility] Work Phone: 07-15-2021 17:04-0500 Body weight 70.[address] Gilda Drake Work Phone: [facility] Work Phone: 07-15-2021 16:04-0500 Body mass index (BMI) [Ratio] 28.4 kg/m2 Dr. Gilda Drake Work Phone: [facility] Work Phone: 07-15-2021 16:04-0500 Body weight 70.[address] Gilda Drake Work Phone: [facility] Work Phone: 06-27-2021 16:34-0500 Diastolic blood pressure 90 mm[Hg] DR BRETT MCDONNELL MD [facility] 06-27-2021 16:34-0500 Heart rate 112 /min DR BRETT MCDONNELL MD [facility] 06-27-2021 16:34-0500 Mean blood pressure 102 mm[Hg] DR BRETT MCDONNELL MD [facility] 06-27-2021 16:34-0500 Respiratory rate 24 /min DR BRETT MCDONNELL MD [facility] 06-27-2021 16:34-0500 Systolic blood pressure 126 mm[Hg] DR BRETT MCDONNELL MD [facility] 06-27-2021 16:16-0500 Heart rate 110 /min DR BRETT MCDONNELL MD [facility] 06-27-2021 16:16-0500 Respiratory rate 24 /min DR BRETT MCDONNELL MD [facility] 06-27-2021 15:58-0500 Heart rate 112 /min DR BRETT MCDONNELL MD [facility] 06-27-2021 15:58-0500 Respiratory rate 26 /min DR BRETT MCDONNELL MD [facility] 06-27-2021 15:35-0500 SaO2% (BldA) [Mass fraction] 94 % DR BRETT MCDONNELL MD [facility] 06-27-2021 15:28-0500 Body temperature 98.6 [degF] DR BRETT MCDONNELL MD [facility] 06-27-2021 15:28-0500 Diastolic blood pressure 75 mm[Hg] DR BRETT MCDONNELL MD [facility] 06-27-2021 15:28-0500 Mean blood pressure 96 mm[Hg] DR BRETT MCDONNELL MD [facility] 06-27-2021 15:28-0500 Systolic blood pressure 137 mm[Hg] DR BRETT MCDONNELL MD [facility] 06-07-2021 15:00-0500 Diastolic blood pressure 85 mm[Hg] DR PAULA BENÍTEZ MD [facility] 06-07-2021 15:00-0500 Heart rate 97 /min DR PAULA BENÍTEZ MD [facility] 06-07-2021 15:00-0500 Mean blood pressure 100 mm[Hg] DR PAULA BENÍTEZ MD [facility] 06-07-2021 15:00-0500 Respiratory rate 14 /min DR PAULA BENÍTEZ MD [facility] 06-07-2021 15:00-0500 Systolic blood pressure 130 mm[Hg] DR PAULA BENÍTEZ MD [facility] 06-07-2021 14:21-0500 Heart rate 99 /min DR PAULA BENÍTEZ MD [facility] 06-07-2021 14:21-0500 Respiratory rate 12 /min DR PAULA BENÍTEZ MD [facility] 06-07-2021 13:47-0500 Body temperature 98.24 [degF] DR PAULA BENÍTEZ MD [facility] 06-07-2021 13:47-0500 Diastolic blood pressure 93 mm[Hg] DR PAULA BENÍTEZ MD [facility] 06-07-2021 13:47-0500 Heart rate 111 /min DR PAULA BENÍTEZ MD [facility] 06-07-2021 13:47-0500 Mean blood pressure 113 mm[Hg] DR PAULA BENÍTEZ MD [facility] 06-07-2021 13:47-0500 Respiratory rate 28 /min DR PAULA BENÍTEZ MD [facility] 06-07-2021 13:47-0500 Systolic blood pressure 153 mm[Hg] DR PAULA BENÍTEZ MD [facility] 05-28-2021 16:50-0500 Heart rate 98 /min DR SUSANA KESSLER MD [facility] 05-28-2021 16:50-0500 Respiratory rate 16 /min DR SUSANA KESSLER MD [facility] 05-28-2021 15:36-0500 Body temperature 98.6 [degF] DR SUSANA KESSLER MD [facility] 05-28-2021 15:36-0500 Body weight [address] SUSANA KESSLER MD [facility] 05-28-2021 15:36-0500 Diastolic blood pressure 82 mm[Hg] DR SUSANA KESSLER MD [facility] 05-28-2021 15:36-0500 Heart rate 109 /min DR SUSANA KESSLER MD [facility] 05-28-2021 15:36-0500 Respiratory rate 20 /min DR SUSANA KESSLER MD [facility] 05-28-2021 15:36-0500 Systolic blood pressure 159 mm[Hg] DR SUSANA KESSLER MD [facility] 04-09-2021 06:29-0500 Heart rate 101 /min FIFI HERNANDEZ MD [facility] 04-09-2021 06:29-0500 Respiratory rate 22 /min FIFI HERNANDEZ MD [facility] 04-09-2021 05:56-0500 Heart rate 109 /min FIFI HERNANDEZ MD [facility] 04-09-2021 05:56-0500 Respiratory rate 24 /min FIFI HERNANDEZ MD [facility] 04-09-2021 05:46-0500 Body height 157.5 cm FIFI HERNANDEZ MD [facility] 04-09-2021 05:46-0500 Body temperature 98.42 [degF] FIFI HERNANDEZ MD [facility] 04-09-2021 05:46-0500 Body weight 75 kg FIFI HERNANDEZ MD [facility] 04-09-2021 05:46-0500 Diastolic blood pressure 60 mm[Hg] FIFI HERNANDEZ MD [facility] 04-09-2021 05:46-0500 Systolic blood pressure 116 mm[Hg] FIFI HERNANDEZ MD [facility] 09-19-2020 17:00-0400 Heart rate 94 /min No Pcp Required [facility] 09-19-2020 17:00-0400 Respiratory rate 18 /min No Pcp Required [facility] 09-19-2020 17:00-0400 SaO2% (BldA) [Mass fraction] 95 % No Pcp Required [facility] 09-19-2020 16:00-0400 Diastolic blood pressure 75 mm[Hg] No Pcp Required [facility] 09-19-2020 16:00-0400 Systolic blood pressure 123 mm[Hg] No Pcp Required [facility] 09-19-2020 13:56-0400 Body height 162.5 cm No Pcp Required [facility] 09-19-2020 13:56-0400 Body temperature 98.06 [degF] No Pcp Required [facility] 09-19-2020 13:56-0400 Body weight 70 kg No Pcp Required [facility] Encounters Encounter Date Encounter Type Care Provider Facility Start: 12-03-2024 ambulatory Taylor Fields [facility] cility:[facility] Start: 11-08-2024 End: 11-08-2024 Patient encounter procedure Ryan Kelley [place] -[facility] Work Phone: Start: 11-08-2024 End: 11-08-2024 ambulatory Taylor Fields [employer] Work Phone: [facility] Work Phone: Start: 09-02-2024 End: 09-02-2024 Patient encounter procedure Judith GUNDERSONC -[facility] Work Phone: Start: 09-02-2024 End: 09-02-2024 ambulatory Taylor Fields [facility] Facility:[facility] [place] Start: 08-31-2024 End: 08-31-2024 ambulatory Taylor Fields [employer]C Work Phone: [facility] Work Phone: Start: 08-31-2024 End: 08-31-2024 Patient encounter procedure [facility] Taylor Fields NP-C -Carolyn Fernandez Start: 08-31-2024 End: 08-31-2024 ambulatory Taylor Fields [facility] Facility:[facility] Start: 08-24-2024 End: 08-24-2024 ambulatory Taylor Fields NP-C Work Phone: [facility] Work Phone: Start: 08-24-2024 End: 08-24-2024 Patient encounter procedure Judith GUNDERSONC -Radiology, [facility] Work Phone: Start: 08-24-2024 End: 08-24-2024 ambulatory Taylor Fields [facility] Facility:[facility] Start: 08-17-2024 End: 08-17-2024 Patient encounter procedure Jodie Garber [employer]-C -[facility] Work Phone: Start: 08-17-2024 End: 08-17-2024 ambulatory [facility] Facility:[facility] Start: 08-16-2024 End: 08-16-2024 ambulatory Taylor Fields [employer] Work Phone: [facility] Work Phone: Start: 08-16-2024 End: 08-16-2024 Patient encounter procedure Judith BOOKER -Ultrasound, [facility] Work Phone: Start: 08-16-2024 End: 08-16-2024 ambulatory [facility] Facility:[facility] Start: 08-13-2024 ambulatory [facility] Fa [facility]ility:[facility] Start: 08-13-2024 Non-patient / Non-visit James Smith DO -[facility] Start: 08-13-2024 End: 08-13-2024 Admission to same day surgery center James Smith DO -Endoscopy Work Phone: Start: 08-13-2024 End: 08-13-2024 ambulatory Taylor Fields [employer] Work Phone: [facility] Work Phone: Start: 07-12-2024 ambulatory [facility] Fa [facility]ility:[facility] Start: 07-09-2024 End: 07-09-2024 ambulatory Elyssa Arguello PA Work Phone: [facility] Work Phone: Start: 07-09-2024 End: 07-09-2024 Patient encounter procedure Katherin Cook NP-Yajaira -Radiology, [facility] Work Phone: Start: 07-09-2024 End: 07-09-2024 ambulatory [facility] Facility:[facility] Start: 06-21-2024 End: 06-21-2024 ambulatory Mimi Lott [employer] Work Phone: Rheumatology Comment on above: Results/next steps Start: 06-21-2024 End: 06-21-2024 E-mail encounter from caregiver Mimi Lott PLASTER HELPER Work Phone: Rheumatology Start: 06-17-2024 End: 06-17-2024 ambulatory MIMI LOTT Facility:[facility] Start: 06-17-2024 End: 06-17-2024 Subsequent hospital visit by physician Xr Main A21 Radiology Comment on above: Inflammatory arthrit is [M19.90] Start: 06-17-2024 End: 06-17-2024 ambulatory MIMI LOTT Facility:[facility] Start: 06-17-2024 End: 06-17-2024 Patient encounter procedure Mimi Lott PURVI.PLASTER HELPER Work Phone: Rheumatology Comment on above: Inflammatory arthrit is (Primary Dx); Hypovitaminosis D; Psoriasis; Chronic bilateral low back pain without sciatica Start: 06-14-2024 End: 06-14-2024 Patient encounter procedure Judith BOOKER -[facility] Work Phone: Start: 06-14-2024 End: 06-14-2024 ambulatory [facility] Facility:[facility] Start: 05-26-2024 End: 05-26-2024 Patient encounter procedure Briseyda BOOKER -Radiology, [facility] Work Phone: Start: 05-26-2024 End: 05-26-2024 ambulatory [facility] Facility:[facility] Start: 05-11-2024 End: 05-11-2024 Patient encounter procedure [facility] Taylor BOOKER -Outpatient Bone Densitometry Work Phone: Start: 05-11-2024 End: 05-11-2024 ambulatory [facility] Facility:[facility] Start: 04-22-2024 ambulatory [facility] Fa [facility]ility:[facility] Start: 04-22-2024 Non-patient / [facility] Start: 04-22-2024 End: 04-22-2024 Admission to same day surgery center James Smith DO -Endoscopy Work Phone: Start: 04-22-2024 End: 04-22-2024 ambulatory [facility] Facility:[facility] Start: 04-19-2024 End: 04-19-2024 Emergency department patient visit Dr. Mehrdad Norris MD -Emergency Department Work Phone: Start: 04-14-2024 End: 04-14-2024 Emergency department patient visit Dr. Montrell Yousif -Emergency Department Work Phone: Start: 04-14-2024 End: 04-14-2024 Patient encounter procedure Elyssa CARR -Laboratory Work Phone: Start: 04-14-2024 End: 04-14-2024 ambulatory [facility] Facility:[facility] Start: 04-09-2024 End: 04-09-[address] Jonny Marino MD -[facility] Work Phone: Start: 04-09-2024 End: 04-09-2024 ambulatory [facility] Facility:[facility] Start: 04-06-2024 End: 04-06-[address] Jonny Marino MD -[facility] Work Phone: Start: 04-06-2024 End: 04-06-2024 ambulatory [facility] Facility:[facility] Start: 03-25-2024 End: 03-25-2024 Patient encounter procedure Elyssa CARR -Ultrasound, [facility] Work Phone: Start: 03-25-2024 End: 03-[facility] Start: 03-12-2024 End: 03-12-2024 ambulatory [facility] Start: 03-09-2024 ambulatory [facility] Fa cility:[facility] Start: 03-01-2024 End: 03-01-2024 Emergency department patient visit Gilda Drake Facility:[facility] Start: 12-09-2023 End: 12-09-2023 ambulatory [facility] Facility:[facility] Start: 11-06-2023 Telephone encounter Salomon salas MD Work Phone: Gastroenterology Start: 11-04-2023 Refill Salomon Arellano MD Work Phone: Gastroenterology Start: 11-03-2023 Telephone encounter Salomon salas MD Work Phone: Gastroenterology Comment on above: Orders Start: 10-20-2023 End: 10-20-2023 ambulatory Salomon Arellano MD Work Phone: Gastroenterology Comment on above: Nausea and vomiting, unspecified vomiting type (Primary Dx) Start: 10-20-2023 End: 10-20-2023 Telemedicine consultation with patient Salomon Arellano MD Work Phone: Gastroenterology Start: 10-14-2023 Telephone encounter Salomon salas MD Work Phone: Gastroenterology Start: 08-18-2023 End: 08-18-2023 Emergency department patient visit Dr. Carolyn West Work Phone: [facility]-Emergency Department Work Phone: Start: 08-12-2023 Non-patient / Non-visit Dr. Carolyn West Work Phone: [facility] Start: 08-12-2023 End: 08-12-2023 Admission to same day surgery center Dr. Carolyn West Work Phone: [facility]-Endoscopy Work Phone: Start: 08-12-2023 End: 08-12-[address] Carolyn West Work Phone: [facility] Work Phone: Start: 07-24-2023 End: 07-24-2023 Emergency department patient visit Dr. Carolyn West Work Phone: [facility]-Emergency Department Work Phone: Start: 07-17-2023 End: 07-17-[address] Carolyn West Work Phone: [facility] Work Phone: Start: 07-07-2023 End: 07-07-2023 Emergency department patient visit Dr. Carolyn West Work Phone: [facility]-Emergency Department Work Phone: Start: 06-17-2023 End: 06-17-[address] Carolyn West Work Phone: [facility] Work Phone: Start: 06-05-2023 End: 06-05-[address] Carolyn West Work Phone: [facility] Work Phone: Start: 05-27-2023 End: 05-27-[address] Carolyn West Work Phone: [facility] Work Phone: Start: 05-27-2023 End: 05-27-[address] Carolyn West Work Phone: [facility]-Radiology, [facility] Work Phone: Start: 05-20-2023 End: 05-20-[address] Carolyn West Work Phone: [facility] Work Phone: Start: 05-15-2023 End: 05-15-[address] Carolyn West Work Phone: [facility] Work Phone: Start: 05-14-2023 End: 05-14-[address] Carolyn West Work Phone: [facility] Work Phone: Start: 05-14-2023 End: 05-14-[address] Carolyn West Work Phone: [facility]-Outpatient Breast Imaging Work Phone: Start: 05-07-2023 End: 05-07-[address] Carolyn West Work Phone: [facility] Work Phone: Start: 05-06-2023 End: 05-06-[address] Carolyn West Work Phone: [facility] Work Phone: Start: 04-25-2023 End: 04-25-[address] Carolyn West Work Phone: [facility] Work Phone: Start: 04-23-2023 Non-patient / Non-visit Dr. Carolyn West Work Phone: [facility] Start: 04-23-2023 End: 04-23-2023 Admission to same day surgery center Dr. Carolyn West Work Phone: [facility]-Surgical Day Care Start: 04-23-2023 End: 04-23-[address] Carolyn West Work Phone: [facility] Work Phone: Start: 03-25-[address] Carolyn West Work Phone: [facility]-Physical Therapy Work Phone: Start: 03-11-2023 End: 03-11-[address] Carolyn West Work Phone: [facility] Work Phone: Start: 03-06-2023 End: 03-06-[address] Carolyn West Work Phone: [facility] Work Phone: Start: 03-05-2023 Non-patient / Non-visit Dr. Carolyn West Work Phone: [facility] Start: 03-05-2023 End: 03-05-[address] [facility] Work [facility]: Start: 02-28-2023 End: 02-28-2023 Emergency department patient [facility] Carolyn West [facility] Work [facility]: Start: 02-19-2023 Non-patient / Non-visit Dr. Carolyn West Work Phone: [facility] Start: 02-19-2023 End: 02-19-[address] Carolyn West [facility] Work [facility]: Start: 02-06-[address] Carolyn West Work Phone: [facility]-Physical Therapy Work Phone: Start: 01-01-2023 End: 01-01-2023 Emergency department patient visit Dr. Carolyn West Work Phone: [facility]-Emergency Department Work Phone: Start: 12-30-2022 End: 12-30-2022 Patient encounter procedure Taylor Phan APRN.PLASTER HELPER Work Phone: [facility] Comment on above: Type 2 diabetes helen itus with peripheral neuropathy (HCC) (Primary Dx); Psoriasis Start: 12-12-2022 End: 12-12-[address] Carolyn West Work Phone: [facility] Work Phone: Start: 12-12-2022 End: 12-12-[address] Carolyn West Work Phone: [facility]-Radiology, [facility] Work Phone: Start: 11-25-2022 End: 11-25-2022 Emergency department patient visit Dr. Carolyn West Work Phone: [facility]-Emergency Department Work Phone: Start: 11-04-2022 End: 11-04-[address] Carolyn West Work Phone: [facility] Work Phone: Start: 10-22-2022 ambulatory TAYLOR GENTILE IN DIRECTOR OF GUIDANCE IN [employer] Facility:B Start: 10-08-2022 End: 10-08-2022 ambulatory [facility] Work Phone: Start: 10-08-2022 End: 10-08-2022 Patient encounter procedure [facility]-Laboratory Start: 08-18-2022 ambulatory Liseth stevens MD Work Phone: [facility] Start: 08-01-2022 Telephone encounter Liseth Rubalcava MD Work Phone: [facility] Comment on above: Appointment Start: 07-15-2022 End: 07-15-2022 Emergency department patient visit [facility]-Emergency Department Start: 06-14-2022 End: 06-14-2022 Emergency department patient visit No Primary Care Physician [facility]-Emergency Department Start: 06-08-2022 End: 06-09-2022 Emergency department patient visit No Primary Care Physician [facility]-Emergency Department Start: 05-16-2022 End: 05-16-2022 ambulatory No Primary Care Physician [facility] Work Phone: Start: 05-16-2022 End: 05-16-2022 Patient encounter procedure No Primary Care Physician [facility]-Radiology, [facility] Start: 05-08-2022 End: 05-08-2022 Emergency department patient visit No Primary Care Physician [facility]-Emergency Department Start: 03-28-2022 End: 03-28-2022 Emergency department patient visit No Primary Care Physician [facility]-Emergency Department Start: 03-07-2022 Non-patient / Non-visit No Primary Care Physician [facility] Start: 03-06-2022 End: 03-07-2022 Evaluation and management of inpatient No Primary Care Physician [facility]-Medical Surgical 3 Start: 03-06-2022 End: 03-07-2022 observation encounter No Primary Care Physician [facility] Work Phone: Start: 03-06-2022 Evaluation and management of inpatient No Primary Care Physician [facility]-Medical Surgical 3 Start: 02-21-2022 End: 02-21-2022 Emergency department patient visit No Primary Care Physician [facility]-Emergency Department Start: 02-04-2022 End: 02-04-2022 Emergency department patient visit ROD MARIN Work Phone: [facility]-Emergency Department Start: 12-25-2021 Refill Fredrick Chen MD Work Phone: [facility] Start: 12-21-2021 Refill Liseth stevens MD Work Phone: [facility] Comment on above: Refill Request Start: 12-10-2021 End: 12-10-2021 Emergency department patient visit ROD MARIN Work Phone: [facility]-Emergency Department Start: 12-10-2021 End: 12-10-2021 Emergency department patient visit PATIENT UNSURE PHYSICIAN Facility:A Start: 11-23-2021 End: 11-23-2021 Patient encounter procedure ROD MARIN Work Phone: [facility]-Laboratory, Specimen Start: 11-23-2021 End: 11-23-2021 Patient encounter procedure ROD MARIN Work Phone: [facility] Start: 11-14-2021 End: 11-14-2021 Patient encounter procedure ROD MARIN Work Phone: [facility]-Outpatient Pavilion Ultrasound Start: 11-13-2021 End: 11-13-[address] Gilda Drake Work Phone: [facility] Start: 11-09-2021 End: 11-09-[address] Gilda Drake Work Phone: [facility]-Outpatient Breast Imaging Start: 10-30-2021 End: 10-30-[address] Gilda Drake Work Phone: [facility]-Laboratory, Specimen Start: 10-30-2021 End: 10-30-[address] iGlda Drake Work Phone: [facility] Start: 10-17-2021 End: 10-17-[address] Gilda Drake Work Phone: [facility] Start: 10-16-2021 End: 10-16-2021 Subsequent hospital visit by physician [facility] Provider IF ALIVIA GUTIERREZ Comment on above: ACUTE VISIT Start: 10-11-2021 End: 10-16-[address] Gilda Drake [facility] Start: 10-09-2021 Non-patient / Non-visit Dr. Gilda Drake Work Phone: [facility] Start: 10-09-2021 Non-patient / Non-visit Dr. Gilda Drake Work Phone: [facility] Start: 10-08-2021 Non-patient / Non-visit Dr. Gilda Drake Work Phone: [facility] Start: 10-08-2021 Non-patient / Non-visit Dr. Gilda Drake Work Phone: [facility] Start: 10-07-2021 Non-patient / Non-visit Dr. Gilda Drake Work Phone: [facility] Start: 10-06-2021 Non-patient / Non-visit Dr. Gilda Drake Work Phone: [facility] Start: 10-05-2021 Non-patient / Non-visit Dr. Gilda Drake Work Phone: [facility] Start: 10-04-2021 Non-patient / Non-visit Dr. Gilda Drake Work Phone: [facility] Start: 10-04-2021 End: 10-09-2021 Evaluation and management of inpatient Dr. Gilda Drake Work Phone: [facility] Surgical 3 Start: 09-11-2021 End: 09-11-2021 Subsequent hospital visit by physician [facility] Provider IF ALIVIA GUTIERREZ Comment on above: EST PT Start: 08-26-2021 End: 08-26-2021 Emergency department patient visit Dr. Gilda Drake Work Phone: [facility]-Emergency Department Start: 08-19-2021 End: 08-19-2021 Emergency department patient visit Dr. Gilda Drake Work Phone: [facility]-Emergency Department Start: 07-16-2021 Non-patient / Non-visit Dr. Gilda Drake Work Phone: [facility] Start: 07-15-2021 End: 07-16-2021 Evaluation and management of inpatient Dr. Gilda Drake Work Phone: [facility] 3 Start: 06-27-2021 End: 06-27-2021 Emergency department patient visit DR BRETT MCDONNELL MD [facility] Start: 06-07-2021 End: 06-07-2021 Emergency department patient visit DR PAULA BENÍTEZ MD [facility] Start: 05-29-2021 End: 01-11-2022 Subsequent hospital visit by physician [facility] Provider IF ALIVIA GUTIERREZ Comment on above: NEW PT Start: 05-28-2021 End: 05-28-2021 Emergency department patient visit DR SUSANA KESSLER MD [facility] Start: 04-09-2021 End: 04-09-2021 Emergency department patient visit FIFI HERNANDEZ MD [facility] Start: 09-19-2020 End: 09-19-2020 Emergency department patient visit Shantal Larsen [facility] Emergency 09 Procedures Date Procedure Procedure Detail Performing Clinician Start: 08-31-2024 Vitamin D, 25-hydroxy measurement Serene Fields NP-C Work Phone: Comment on above: Vitamin D StatusDeficiency: <20 ng/mL (5 0nmol/L)Insufficiency: 20-30 ng/mL (50-75 nmol/L)Sufficiency: 30-100 ng/mL (75-250 nmol/L)Toxicity: >100 ng/mL (>250 nmol/L) Start: 08-24-2024 X-ray of esophagus with double contrast Taylor Fields NP-C Work Phone: Start: 08-17-2024 Plain x-ray of pelvis and lower extremity Taylor Fields NP-C Work Phone: Start: 08-17-2024 X-ray of lumbosacral spine Taylor powell [employer]CRA[employer]UCTURAL [employer]TER-C Work Phone: Start: 08-16-2024 Ultrasonography of abdomen Taylor powell AIRCRAFT STRUCTURAL FITTER-C Work Phone: Start: 08-13-2024 Esophagogastroduodenoscopy Taylor powell AIRCRAFT STRUCTURAL FITTER-C Work Phone: Start: 07-09-2024 X-ray of chest, PA and lateral views Elyssa Arguello PA Work Phone: Start: 06-17-2024 Radex spine lumbosacral 2/3 views Scottie Lott DIRECTOR OF GUIDANCE [employer]ASTER HELPER Work Phone: Start: 05-26-2024 Plain x-ray of pelvis and lower extremity Elyssa Arguello PA Work Phone: Start: 05-26-2024 Plain x-ray of wrist Elyssa Arguello PA Work Phone: Start: 05-26-2024 XR knee, 3 views Elyssa Arguello PA Work Phone: Start: 05-11-2024 Dual energy X-ray absorptiometry Elyssa CARR Work Phone: Start: 04-22-2024 Esophagogastroduodenoscopy Taylor powell AIRCRAFT STRUCTURAL FITTER-C Work Phone: Start: 03-25-2024 Plain X-ray of shoulder Elyssa Arguello PA Work Phone: Start: 03-25-2024 Plain X-ray of tibia and fibula Elyssa Arguello PA Work Phone: Start: 03-25-2024 XR knee, 3 views Elyssa Arguello PA Work Phone: Start: 03-25-2024 Ultrasound elastography of liver Elyssa CARR Work Phone: Start: 08-12-[address] Carolyn West Work Phone: Start: 07-24-[address] aCrolyn West Work Phone: Start: 07-24-2023 CT of abdomen and pelvis without contrast Dr. Carolyn West Work Phone: Start: 05-27-[address] Carolyn West Work Phone: Start: 05-14-[address] Carolyn West Work Phone: Start: 04-23-[address] Carolyn West Work Phone: Start: 02-28-2023 Plain x-ray of pelvis and lower extremity Dr. Carolyn West Work Phone: Start: 02-28-2023 X-ray of lumbar spine, two or three views Dr. Carolyn West Work Phone: Start: 01-01-2023 CT of head without contrast Dr. Carolyn West Work Phone: Start: 12-12-2022 Plain X-ray of shoulder Dr. Carolyn West Work Phone: Start: 11-25-2022 Plain chest X-ray Dr. Carolyn West Work Phone: Start: 11-25-2022 SARS-CoV-2 & FLU Antigen (Rapid) Dr. Leah Mendez Work Phone: Start: 11-04-2022 X-ray of lumbar spine, two or three views Dr. Carolyn West Work Phone: Start: 10-08-2022 X-ray of cervical spine Start: 10-08-2022 Plain x-ray of hand Start: 06-14-2022 CT of abdomen and pelvis without contrast No Primary Care Physician Start: 06-08-2022 Plain chest X-ray No Primary Care Physician Start: 05-16-2022 Plain chest X-ray No Primary Care Physician Start: 03-28-2022 Plain chest X-ray No Primary Care Physician Start: 03-28-2022 CT of head without contrast No Primary C are Physician Start: 03-06-2022 Plain chest X-ray No Primary Care Physician Start: 02-21-2022 Plain chest X-ray No Primary Care Physician Start: 02-04-2022 Plain chest X-ray ROD MARIN Work Phone: Start: 11-14-2021 Ultrasonography of breast ROD MARIN Work Phone: Start: 11-09-[address] Gilda Drake Work Phone: Start: 10-05-[address] Gilda crabtree Work Phone: Start: 10-05-2021 Investigation of transfusion reaction Dr. Gilda Drake Work Phone: Start: 10-05-2021 Microbial culture, routine Dr. Gilda agrawal Work Phone: Start: 10-05-2021 Incision and drainage of abscess Dr. Sarah Beth Drake Work Phone: Start: 10-04-[address] Gilda stahl Work Phone: Start: 10-04-2021 Bacteria identified in Blood by Culture Dr. Gilda Drake Work Phone: Start: 08-19-2021 Plain chest X-ray Dr. Gilda Drake Work Phone: Start: 08-19-2021 SARS-CoV-2 & FLU Antigen (Rapid) Dr. Sarah Beth Drake Work Phone: Start: 07-15-2021 Plain chest X-ray Dr. Gilda Drake Work Phone: Start: 07-15-2021 Bacteria identified in Blood by Culture Dr. Gilda Drake Work Phone: Start: 07-15-2021 Respiratory Panel (PCR) Dr. Gilda Drake Work Phone: Start: 09-19-2020 End: 09-19-2020 EKG impression Rach I Moomaw Adhesion (morphologic abnormality) FIFI HERNANDEZ MD Anaerobic microbial culture Dr. Gilda Drake Work Phone: Appendectomy FIFI HERNANDEZ MD Bacteria identified in Blood by Culture Dr. Gidla Drake Work Phone: Bacteria identified in Blood by Culture No Primary Care Physician H/O: surgery Status post dilation of esophageal narrowing Dr. Carolyn West Work Phone: Hysterectomy FIFI HERNANDEZ MD Investigation of tra nsfusion reaction Dr. Gilda Drake Work Phone: Lumpectomy of right breast J VIKTOR HERNANDEZ MD Microbial culture, routine D magno Drake Work Phone: Nasal Screen MRSA/MSSA Dr. Favio Drake Work Phone: Respiratory Panel (PCR) Dr. Gilda Drake Work Phone: Rotator cuff includi ng muscles and tendons (body structure) FIFI HERNANDEZ MD SARS-CoV-2 & FLU Antigen (Rapid) Dr. Gilda Drake Work Phone: SARS-CoV-2 & FLU Antigen (Rapid) No Primary Care Physician Streptococcus pneumo niae Antigen (M No Primary Care Physician Streptococcus pneumo niae Antigen (M No Primary Care Physician Viral antigen assay No Prima ry Care Physician Viral antigen assay No Prima ry Care Physician Plan of Treatment Date Care Activity Detail Author Start: 05-28-2031 Urine microalbumin profile [facility] Start: 09-24-2028 Screening for malignant neoplasm of cervix [facility] Start: 09-13-2024 Patient referral [facility] Work Phone: Start: 08-13-2024 Egd transoral biopsy single/multiple EGD BIOPSY SINGLE/MULTIPLE [facility] Start: 08-13-2024 Patient discharge [facility] Start: 07-02-2024 Hepatitis B screening Urine Albumin:Creatinine Ratio [facility] Start: 07-02-2024 Hepatitis B surface antibody level LDL Cholesterol [facility] Start: 06-17-2024 End: 09-16-2024 ATIF BY IFA WITH REFLEX [facility] Work Phone: Comment on above: Expected: 06/17/2024, Expires: Start: 06-17-2024 End: 09-16-2024 BLOOD TB SCREEN [facility] Comment on above: Expected: 06/17/2024, Expires: Start: 04-22-2024 Egd transoral biopsy single/multiple EGD BIOPSY SINGLE/MULTIPLE [facility] Start: 04-22-2024 Patient discharge [facility] Start: 04-19-2024 [facility] Start: 04-14-2024 [facility] Start: 04-14-2024 Bilirubin direct BILIRUBIN DIRECT [facility] Start: 04-14-2024 Blood count complete auto&auto difrntl wbc COMPLETE CBC W/AUTO DIFF WBC [facility] Start: 04-14-2024 Collection venous blood venipuncture IRMA VENOUS BLD VENIPUNCTURE [facility] Start: 04-14-2024 Comprehensive metabolic panel COMPREHEN METABOLIC PANEL [facility] Start: 01-18-2024 Covid-19 Vaccine ( season) Covid-19 Vaccine ( season) [facility] Start: 01-18-2024 Influenza vaccination [facility] Start: 12-25-2023 Hepatitis B screening URINE ALBUMIN:CREATININE RATIO [facility] Start: 12-25-2023 Hepatitis B surface antibody level LDL CHOLESTEROL [facility] Start: 2023 RSV Vaccine (1 - Risk 60-74 years 1-dose series) RSV Vaccine (1 - Risk 60-74 years 1-dose series) [facility] Start: 10-20-2023 End: 10-20-2023 ambulatory 10/20/2023 1:30 PM EDT [facility] [address] [address] Salomon Arellano MD [address] [place] [address] Persistent vomiting, diarrhea, diverticulosis Gastroenterology Comment on above: Persistent vomiting, diarrhea, diverticu losis Start: 08-12-2023 Patient discharge [facility] Start: 07-24-2023 Bacteria identified in Urine by Culture [facility] Start: 07-24-2023 [facility] Start: 07-07-2023 Incision & drainage abscess simple/single I&D ABSCESS SIMPLE/SINGLE [facility] Start: 07-07-2023 [facility] Start: 05-19-2023 Behavioral Health Screening Behavioral Health Screening [facility] Start: 04-23-2023 Anes arthrs/endscpy dstl radius ulna/wrist/hand ANESTH LOWER ARM SURGERY [facility] Start: 04-23-2023 Ndsc wrst surg w/rls transvrs carpl ligm WRIST ENDOSCOPY/SURGERY [facility] Start: 04-23-2023 Patient discharge [facility] Start: 04-23-2023 Application of ice collar, cap or bag [facility] Start: 04-23-2023 Assessment of risk of venous thromboembolism [facility] Start: 04-23-2023 Catheterization of vein [facility] Start: 04-23-2023 Deep breathing and coughing exercises [facility] Start: 04-23-2023 Following clinical pathway protocol [facility] Start: 04-23-2023 Incentive spirometry [facility] Start: 04-23-2023 Introduction of urinary catheter [facility] Start: 04-23-2023 Patient education [facility] Start: 04-23-2023 Taking patient vital signs [facility] Start: 04-23-2023 Vital signs measurements [facility] Start: 04-23-2023 End: 04-23-2023 [facility] Start: 04-23-2023 Medication education [facility] Start: 03-27-2023 Hepatitis B surface antibody level LDL CHOLESTEROL [facility] Start: 03-26-2023 Hemoglobin A1c measurement HbA1C [facility] Start: 03-26-2023 Hemoglobin A1c/Hemoglobin.total in Blood HBA1C [facility] Start: 02-28-2023 [facility] Start: 01-17-2023 Covid-19 Vaccine () Covid-19 Vaccine () [facility] Start: 01-17-2023 Influenza vaccination [facility] Start: 12-24-2022 ANNUAL PCP TEAM CHRONIC DISEASE VISIT ANNUAL PCP TEAM CHRONIC DISEASE VISIT [facility] Start: 11-25-2022 Plain chest X-ray Chest PA and Lateral [facility] Start: 11-25-2022 XR Chest PA and Lateral [facility] Start: 11-25-2022 [facility] Start: 09-24-2022 Hemoglobin A1c/Hemoglobin.total in Blood HBA1C [facility] Start: 06-08-2022 [facility] Start: 05-19-2022 DEPRESSION ASSESSMENT DEPRESSION ASSESSMENT [facility] Start: 05-08-2022 Incision & drainage abscess simple/single DRAINAGE OF SKIN ABSCESS [facility] Start: 03-07-2022 Patient discharge [facility] Start: 03-06-2022 Patient referral to dietitian [facility] Start: 03-06-2022 Blood culture [facility] Work Phone: Start: 03-06-2022 Care regimes management [facility] Start: 03-06-2022 Notification of physician [facility] Start: 03-06-2022 Methicillin resistant Staphylococcus aureus screening test [facility] Start: 03-06-2022 Ambulation without limitation [facility] Start: 03-06-2022 Assessment of risk of venous thromboembolism [facility] Start: 03-06-2022 Incentive spirometry [facility] Start: 03-06-2022 Insertion of catheter into peripheral vein [facility] Start: 03-06-2022 Measuring intake and output [facility] Start: 03-06-2022 Oxygen therapy [facility] Start: 03-06-2022 Physiotherapy of chest [facility] Start: 03-06-2022 Providing care according to standard [facility] Start: 03-06-2022 Referral to occupational therapist [facility] Start: 03-06-2022 Referral to service [facility] Start: 03-06-2022 End: 03-06-2022 [facility] Start: 03-06-2022 Admission procedure [facility] Start: 03-06-2022 End: 03-06-2022 Following clinical pathway protocol [facility] Start: 03-06-2022 D-dimer assay, quantitative [facility] Work Phone: Start: 03-06-2022 Iiv4 vacc presrv free 0.5 ml dos for im use IIV4 VACC NO PRSV 0.5 ML IM [facility] Start: 02-04-2022 Blood chemistry [facility] Work Phone: Start: 02-04-2022 End: 02-04-2022 [facility] Work Phone: Start: 01-17-2022 Influenza vaccination [facility] Start: 12-10-2021 Incision & drainage abscess simple/single DRAINAGE OF SKIN ABSCESS [facility] Work Phone: Start: 11-14-2021 Ultrasonography of breast Breast Limited Unilateral [facility] Work Phone: Start: 11-14-2021 US Breast limited [facility] Work Phone: Start: 11-11-2021 COVID-19 VACCINE (6 - Pfizer series) COVID-19 VACCINE (6 - Pfizer series) [facility] Start: 10-21-2021 COVID-19 VACCINE (4 - Booster for Pfizer series) COVID-19 VACCINE (4 - Booster for Pfizer series) [facility] Start: 10-09-2021 Referral to service [facility] Work Phone: Start: 10-09-2021 Patient discharge [facility] Work Phone: Start: 10-09-2021 [facility] Work Phone: Start: 10-08-2021 Provision of activity privileges [facility] Work Phone: Start: 10-07-2021 Consultation [facility] Work Phone: Start: 10-06-2021 Wound care [facility] Work Phone: Start: 10-06-2021 Inhalation therapy procedure [facility] Work Phone: Start: 10-04-2021 Bacteria identified in Blood by Culture Blood Culture [facility] Work Phone: Start: 10-04-2021 Microscopic observation [Identifier] in Unspecified specimen by Gram stain Gram Stain [facility] Work Phone: Start: 10-04-2021 Wound Culture Wound Culture [facility] Work Phone: Start: 10-04-2021 Care regimes management [facility] Work Phone: Start: 10-04-2021 Notification of physician [facility] Work Phone: Start: 10-04-2021 Ambulation without limitation [facility] Work Phone: Start: 10-04-2021 Assessment of risk of venous thromboembolism [facility] Work Phone: Start: 10-04-2021 Insertion of catheter into peripheral vein [facility] Work Phone: Start: 10-04-2021 Measuring intake and output [facility] Work Phone: Start: 10-04-2021 Providing care according to standard [facility] Work Phone: Start: 10-04-2021 Referral to general surgeon [facility] Work Phone: Start: 10-04-2021 End: 10-04-2021 [facility] Work Phone: Start: 10-04-2021 Following clinical pathway protocol [facility] Work Phone: Start: 10-04-2021 Admission procedure [facility] Work Phone: Start: 07-16-2021 Patient discharge [facility] Work Phone: Start: 07-16-2021 Referral to service [facility] Work Phone: Start: 07-15-2021 Following clinical pathway protocol [facility] Work Phone: Start: 07-15-2021 Application of intermittent pneumatic compression device [facility] Work Phone: Start: 07-15-2021 Assessment of risk of venous thromboembolism [facility] Work Phone: Start: 07-15-2021 Care regimes management [facility] Work Phone: Start: 07-15-2021 Insertion of catheter into peripheral vein [facility] Work Phone: Start: 07-15-2021 Notification of physician [facility] Work Phone: Start: 07-15-2021 Oxygen therapy [facility] Work Phone: Start: 07-15-2021 Providing care according to standard [facility] Work Phone: Start: 07-15-2021 [facility] Work Phone: Start: 07-15-2021 Admission procedure [facility] Work Phone: Start: 01-17-2021 Influenza vaccination INFLUENZA (#1) [facility] Start: 07-23-2015 PNEUMOCOCCAL (2 - PCV) PNEUMOCOCCAL (2 - PCV) [facility] Start: 07-23-2015 Pneumococcal vaccination Pneumococcal Vaccine (2 of 2 - PCV) [facility] Start: 07-23-2015 Pneumococcal Vaccine: 50+ (2 of 2 - PCV) Pneumococcal Vaccine: 50+ (2 of 2 - PCV) [facility] Start: 12-12-2013 SHINGRIX VACCINE (1 of 2) SHINGRIX VACCINE (1 of 2) [facility] Start: 12-12-2008 COLOGUARD (FIT-DNA) COLOGUARD (FIT-DNA) [facility] Start: 12-12-2008 Colonoscopy COLONOSCOPY [facility] Start: 12-12-2008 COLORECTAL CANCER SCREENING COLORECTAL CANCER SCREENING [facility] Start: 12-12-[address] COLONOGRAPHY [facility] Start: 12-12-2008 DIABETES SCREEN DIABETES SCREEN [facility] Start: 12-12-2008 FECAL OCCULT BLOOD FECAL OCCULT BLOOD [facility] Start: 12-12-2008 LIPID SCREEN LIPID SCREEN [facility] Start: 12-12-2008 Screening for malignant neoplasm of colon [facility] Start: 12-12-2008 SIGMOIDOSCOPY SIGMOIDOSCOPY [facility] Start: 2003 Mammography MAMMOGRAM [facility] Start: 2003 Screening for malignant neoplasm of breast Mammogram Screening [facility] Start: 12-12-1993 HPV TESTING HPV TESTING [facility] Start: 12-12-1984 PAP TESTING PAP TESTING [facility] Start: 12-12-1982 Urine microalbumin profile DTAP,TDAP,TD (1 - Tdap) [facility] Start: 12-12-1981 Anxiety Screening Anxiety Screening [facility] Start: 12-12-1981 Depression Screening Depression Screening [facility] Start: 12-12-1981 Hepatitis B surface antibody level LDL CHOLESTEROL [facility] Start: 12-12-1981 HEPATITIS C SCREENING HEPATITIS C SCREENING [facility] Start: 12-12-1981 Hepatitis C screening Hepatitis C Screening [facility] Start: 12-12-1981 HIV SCREENING HIV SCREENING [facility] Start: 12-12-1981 HIV screening HIV Screening [facility] Start: 12-12-1981 SPIROMETRY SPIROMETRY [facility] Start: 1975 Adult depression screening assessment DEPRESSION SCREENING [facility] Start: 12-12-1973 3 comp foot exam completed DIABETIC FOOT EXAM [facility] Start: 12-12-1973 Diabetic foot examination Diabetic Foot Exam [facility] Start: 12-12-1973 Glaucoma screening Dilated Retinal Exam [facility] Start: 12-12-1973 Hepatitis B screening URINE ALBUMIN:CREATININE RATIO [facility] Start: 12-12-1973 Hepatitis C antibody, confirmatory test DILATED RETINAL EXAM [facility] Start: 12-12-1969 PNEUMOCOCCAL (1 - PCV) PNEUMOCOCCAL (1 - PCV) [facility] Start: 12-12-1968 COVID-19 VACCINE (#1) COVID-19 VACCINE (#1) [facility] Start: 12-12-1968 COVID-19 VACCINE (1) COVID-19 VACCINE (1) [facility] Start: 12-12-1968 Hemoglobin A1c/Hemoglobin.total in Blood HBA1C [facility] Start: 06-14-1964 COVID-19 VACCINE (#1) COVID-19 VACCINE (#1) [facility] Start: 1965 HEPATITIS B (1 of 3 - 3-dose series) HEPATITIS B (1 of 3 - 3-dose series) [facility] Bacteria identified in Blood by Culture Blood Culture [facility] Work Phone: Blood culture [facility] Work Phone: Colonoscopy [facility] D-dimer assay, quantitative [facility] Work Phone: Gamma glutamyl transferase measurement [facility] Hepatic function panel [facility] MG Breast - bilatera l Screening [facility] Work Phone: MR Lumbar spine [facility] Patient Education [facility] Work Phone: Patient referral [facility] Work Phone: Radiologic exam esophagus double contrast study [facility] Radionuclide gastric emptying study [facility] RF videography Hypopharynx and Esophagus Views [facility] US Abdomen limited [facility] Immunizations Immunization Date Immunization Notes Care Provider [facility] 03-07-2022 influenza, injectabl e, quadrivalent, preservative free Dr. Carolyn West Work Phone: [facility] 03-07-2022 influenza, seasonal, injectable No Primary Care Physician [facility] 03-07-2022 influenza virus vacc ine, unspecified formulation Salomon Arellano MD Work Phone: [facility] 09-16-2021 Covid ([employer]) No Primary Care Physician [facility] 06-19-2021 Covid ([employer]) No Primary Care Physician [facility] 05-28-2021 tetanus toxoid, redu larisa diphtheria toxoid, and acellular pertussis vaccine, adsorbed; Translations: [Boostrix (Tdap)] DR SUSANA KESSLER MD [facility] 02-16-[address] Gilda Drake Work Phone: [facility] 02-16-2021 influenza, seasonal, injectable Taylor Phan [employer] HELPER Work Phone: [facility] 02-28-2020 influenza, seasonal, injectable Taylor Phan [employer] Work Phone: [facility] 05-19-2017 influenza, seasonal, injectable, preservative free Taylor Phan [employer] HELPER Work Phone: [facility] 03-05-2016 influenza, seasonal, injectable Taylor Phan [employer]ASTER HELPER Work Phone: [facility] 05-19-2015 influenza, seasonal, injectable Taylor Phan [employer] HELPER Work Phone: [facility] 07-22-2014 pneumococcal polysaccharide vaccine, 23 valent Taylor Phan DIRECT[employer] HELPER Work Phone: [facility] Payers Date Payer Category Payer Self-pay [id number] 2022 Medicaid [id number] 2021 [facility] [id number] 2021 Medicaid [facility] [id number] 2021-[facility] [phone] [address] [place] [address] Medicaid [id number] 2021 Medicaid [id number]. [id number] 1965 Unknown [id number] 2.16.840.1.448120.3.579.2.627 1965 Unknown [id number] 2.16.840.1.998081.3.579.2.627 Unknown MULTIPLAN\MULTIPLAN Unknown [id number] 2.16.840.1.058221.3.579.2.462 Unknown [id number] 2.16.840.1.279187.3.579.2.462 Unknown [id number] 2.16.840.1.757998.3.579.2.462 Unknown [id number] 2.840.1.231831.3.579.2.462 Unknown [id number] 2.840.1.560940.3.579.2.462 Unknown [id number] 2.840.1.522300.3.579.2.462 Unknown [id number] 2.840.1.518515.3.579.2.462 Unknown [id number] 2.840.1.984468.3.579.2.462 Unknown [id number] 2.840.1.532870.3.579.2.462 Unknown [id number] 2.840.1.563678.3.579.2.462 Unknown [id number] 2.16840.1.606058.3.579.2.462 Unknown [id number] 2.16840.1.550196.3.579.2.462 Unknown [id number] 2.16.840.1.163817.3.579.2.462 Unknown [id number] 2.16.840.1.583888.3.579.2.462 Unknown [id number] 2.16.840.1.896250.3.579.2.462 Unknown [id number] 2.16.840.1.288035.3.579.2.462 Unknown [id number] 2.16.840.1.886296.3.579.2.462 Unknown [id number] 2.16.840.1.623181.3.579.2.462 Unknown [id number] 2.16.840.1.792729.3.579.2.462 Unknown [id number] 2.16.840.1.808734.3.579.2.462 Unknown [id number] 2.16.840.1.932927.3.579.2.462 Unknown [id number] 2.16.840.1.559410.3.579.2.462 Unknown [id number] 2.16.840.1.341033.3.579.2.462 Unknown [id number] 2.16.840.1.621730.3.579.2.462 Unknown [id number] 2.16.840.1.369580.3.579.2.462 Unknown [id number] 2.16.840.1.151110.3.579.2.462 Unknown [id number] 2.16.840.1.429920.3.579.2.462 Unknown [id number] 2.16.840.1.714846.3.579.2.462 Social History Date Type Detail Facility [facility] Start: 08-26-2021 End: 08-18-2023 Tobacco smoking consumption unknown [facility] Start: 04-14-2019 End: 09-02-2024 Never smoked tobacco (finding) [facility] Start: 1965 Sex Assigned At Female [facility] Start: 1965 Sex Assigned At Not on file [facility] Start: 12-11-2021 End: 12-24-2021 Exposure to SARS-CoV-2 (event) Not sure [facility] Start: 12-30-2022 Tobacco use and exposure Smokeless tobacco non-user [facility] Start: 12-30-2022 End: 06-17-2024 History of Social function [facility] Start: 12-30-2022 End: 06-17-2024 Tobacco use panel [facility] National Score (1-100), lower number is lower risk 64 [facility] Start: 07-22-2024 End: 09-06-2024 Sex Female (finding) [facility] NEGATED: Highlighted row Not [facility] Medical Equipment Procedure Code Equipment Code Equipment Origin al Text Equipment Identifier Dates Pen Needle, Diab etic (Pen Needle) 31 gauge x 1/4 needle Start: 10-09-2021 Pen Needle, Diab etic (Pen Needle) 31 gauge x 1/4 needle Start: 10-09-2021 Pen Needle, Diab etic (Pen Needle) 31 gauge x 1/4 needle Start: 10-09-2021 Pen Needle, Diab etic (Pen Needle) 31 gauge x 1/4 needle Start: 10-09-2021 Pen Needle, Diab etic (Pen Needle) 31 gauge x 1/4 needle Start: 10-09-2021 Pen Needle, Diab etic (Pen Needle) 31 gauge x 1/4 needle Start: 10-09-2021 Start: 05-03-2024 Goals Date Patient Goal Desired Activity /State Functional Status Date Assessment Result Facility 03-06-2022 Functional status Activity Abili ty Standby Assist [facility] Work Phone: 10-09-2021 Functional status Chair [facility] Work Phone: 07-16-2021 Functional status Ambulates;Up ad luther [facility] Work Phone: Mental Status Date Assessment Result Facility 08-13-2024 Cognitive function Voice/Name;To uch/Shaking;Light Pain [facility] Work Phone: 04-22-2024 Cognitive function Level Of Consciousness Sedated [facility] Work Phone: 04-22-2024 Cognitive function Voice/Name [facility] Work Phone: 08-12-2023 Cognitive function Voice/Name [facility] Work Phone: 04-23-2023 Cognitive function Voice/Name [facility] Work Phone: 11-25-2022 Cognitive function Level Of Cons ciousness Awake;Alert;Appropriate [facility] Work Phone: 06-08-2022 Cognitive function Level Of Cons ciousness Awake;Alert;Appropriate;Follow s Commands [facility] Work Phone: 03-28-2022 Cognitive function Level Of Cons ciousness Awake;Alert;Appropriate;Follow s Commands [facility] Work Phone: 03-07-2022 Cognitive function Appropriate;[facility] Work Phone: 03-06-2022 Cognitive function Voice/Name [facility] Work Phone: 10-09-2021 Cognitive function Voice/Name [facility] Work Phone: 10-09-2021 Cognitive function Appropriate;[facility] Work Phone: 08-26-2021 Cognitive function Level Of Cons ciousness Awake;Alert;Appropriate;Follow s Commands [facility] Work Phone: 07-15-2021 Cognitive function Voice/Name [facility] Work Phone: Clinical Notes 04-09-2021 to 08-24-2024 Note Date & Type Note Facility 08-24-2024 Radiology Diagnostic study note [facility] Imaging Services [address] [place], [place] [address] Esophagus Dual Contrast MR#: [id number] Acct: [id number] Name: LEAH JERRY Favio Rep #: [id number] : 1965 F 58 From: Erica Catalan MD PCP: KINGS Ruby, [employer]-C Status: REG CLI Study:Esophagus Dual Contrast Date of Exam: 08/24/24 Exam# [id number] Ordering Dr: Judith Hardin [employer] EXAM: DOUBLE-CONTRAST ESOPHAGRAM CLINICAL HISTORY: ENDOSCOPE LAST WEEK SHOWED VARICOSITIES AND POSSIBLE DISTAL MASS. COMPARISON: No relevant prior. TECHNIQUE: Following the ingestion of effervescent granules and high density barium, swallowing mechanism was evaluated under fluoroscopy in the oblique, AP, lateral, and RPO positions. Barium tablet was also utilized. Imaging sequences were documented as usual. FLUOROSCOPIC TIME: 85 sec Dose: 9.88 mGy FLUOROGRAPHIC IMAGES: 7 imaging sequences. FINDINGS: No abnormalities were seen in the hypopharynx. A few mild tertiary contractions were noted in the distal esophagus. Following ingestion of the barium tablet, no delay was seen while passing through the esophagus through the esophagogastric junction. No constricting or obstructing lesions were demonstrated. No intraluminal filling defects. No ulcerations. A few episodes of mild gastroesophageal reflux. No hiatal hernia was demonstrated. RAD/Esophagus Dual Contrast IMPRESSION: Mild tertiary contractions were noted in the distal esophagus. No masses or other intrinsic abnormalities are demonstrated. No abnormalities demonstrated in the hypopharynx. Reading Location: [place] [address] CC: JHONY Hardin; [employer]TER-Yajaira Fields ~ Administrative Support Specialist: Signed [facility] 08-16-2024 Radiology Diagnostic study note [facility] Imaging Services [address], [place] [address] Abdomen Limited MR#: [id number] Acct: [id number] Name: LEAH JERRY Rep #: [id number] : 1965 F 58 From: Philippe Barroso MD PCP: Taylor Fields [employer], [employer] Status: REG CLI Study:Abdomen Limited Date of Exam: 07/19 06/12 Exam# [id number] Ordering Dr: Judith Hardin PROCEDURE: ABDOMEN LIMITED 08/16/2024 REASON FOR EXAM: ESOPH VARICES COMPARISON: Comparison is made with prior study dated March 25, 2024. FINDINGS: Liver: Diffusely echogenic suggesting fatty infiltration. The liver measures 15.2 cm. No focal abnormality is seen.. Scalloped contour of the liver suggestive of possible cirrhosis. Gallbladder: No stones, sludge, wall thickening or tenderness. Common bile duct: Normal measuring 5.9 mm. Pancreas: Normal Other: Right kidney is unremarkable. Mild splenomegaly measuring 14 cm x 5.2 cm 4.5 cm. US/Abdomen Limited IMPRESSION: Fatty infiltration of the liver. Splenomegaly. Reading Location: [place] [address] CC: JHONY Hardin; [employer] JHONY Fields ~ Administrative Support Specialist: Signed [facility] 08-13-2024 Consult note [facility] 08-13-2024 Consult note [facility] 08-13-2024 Evaluation note Diagnosis Onset Date Resolution Esophageal varices acute August 13, 2024 5:48am Greater trochanteric bursitis acute August 17, 2024 9:35am Low back pain at multiple sites acute August 17, 2024 9:35am Piriformis muscle pain acute 2024 9:35am Rash acute August 17 9:35am Gastric reflux acute August 1:54pm Nausea & vomiting acute August 172024 1:54pm Rash acute November 08 12:09pm [employer] Work Phone: [phone]) 215-410603-28-2025 Procedure note [facility] Medical Records Department [address] [place] [id number] EGD Report MR#: [id number] Acct: [id number] Name: LEAH JERRY Rep #:[id number] : 1965 58 From: James Smith DO PCP: KINGS Ruby, JHONY Statu s:REG SDC Patient Name: Leah Jerry Procedure Date: 08/13/2024 7:26 AM Date of : 1965 Age: 58 Procedure: Upper GI endoscopy Indications: Epigastric abdominal pain, Dysphagia, Esophageal varices Providers: James Smith DO Referring MD: Taylor Canales, Jhony Medicines: Monitored Anesthesia Care Patient Profile: This is a 58 year old female. Refer to note in patient chart for documentation of history and physical. Patient has symptoms of dysphagia with both liquids and solids and chronic heartburn. Complications: No immediate complications. Procedure: Pre-Anesthesia Assessment: - Prior to the procedure, a History and Physical was performed, and patient medications and allergies were reviewed. The patient is competent. The risks and benefits of the procedure and the sedation options and risks were discussed with the patient. All questions were answered and informed consent was obtained. Patient identification and proposed procedure were verified by the physician in the pre-procedure area. Mental Status Examination: alert and oriented. Airway Examination: normal oropharyngeal airway and neck mobility. Respiratory Examination: clear to auscultation. CV Examination: normal. ASA Grade Assessment: II - A patient with mild systemic disease. After reviewing the risks and benefits, the patient was deemed in satisfactory condition to undergo the procedure. The anesthesia plan was to use monitored anesthesia care (MAC). Immediately prior to administration of medications, the patient was re-assessed for adequacy to receive sedatives. The heart rate, respiratory rate, oxygen saturations, blood pressure, adequacy of pulmonary ventilation, and response to care were monitored throughout the procedure. The physical status of the patient was re-assessed after the procedure. After obtaining informed consent, the endoscope was passed under direct vision. Throughout the procedure, the patient's blood pressure, pulse, and oxygen saturations were monitored continuously. The Endoscope was introduced through the mouth, and advanced to the second part of duodenum. The upper GI endoscopy was accomplished without difficulty. The patient tolerated the procedure well. Scope In: 7:33:29 AM Scope Out: 7:36:28 AM Total Procedure Duration Time 0 hours 2 minutes 59 seconds Findings: Abnormal motility was noted in the esophagus. The cricopharyngeus was abnormal. There are extra peristaltic waves in the esophageal body. The distal esophagus/lower esophageal sphincter is spastic, but gives up passage to the endoscope. Tertiary peristaltic waves are noted. Biopsies were taken with a cold forceps for histology. Verification of patient identification for the specimen was done. Estimated blood loss was minimal. Small (< 5 mm) varices were found in the lower third of the esophagus. They were 2 mm in largest diameter. A small hiatal hernia was present. A medium amount of food (residue) was found in the gastric body and in the gastric antrum. Suspect gastroparesis due to patient symptoms and retained gastric contents. No gross lesions were noted in the duodenal bulb. Impression: - Abnormal esophageal motility, consistent with esophageal spasm. Biopsied. - Small (< 5 mm) esophageal varices. - Small hiatal hernia. - A medium amount of food (residue) in the stomach. - Gastroparesis, secondary to diabetes mellitus type II. - No gross lesions in the duodenal bulb. Recommendation: - Discharge patient to home. - Resume previous diet. - Continue present medications. - Await pathology results. Procedure Code(s): --- Professional --- 81865, Esophagogastroduodenoscopy, flexible, transoral; with biopsy, single or multiple CPT copyright 2021 [employer]. All rights reserved. The codes documented in this report are preliminary and upon auto suspension and steering mechanic review may be revised to meet current compliance requirements. James Smith DO 08/13/2024 7:42:11 AM This report has been signed electronically. Number of Addenda: 0 Note Initiated On: 08/13/2024 7:26 AM 08/13/24741 Date _ James Smith DO Cosigner Signature: Date (if indicated) CC: KINGS Fields; James Smith DO ~ Date Dictated: 08/13/24725 Date Transcribed: Administrative Support Specialist: RF Signed [facility]03-28-2025 Procedure note [facility] Medical Records Department [address] [place] [address] Operative Report - CC Letter MR#: [id number] Acct: [id number] Name: LEAH JERRY Rep #:[id number] : 1965 58 From: James Smith DO PCP: KINGS Ruby, AIRCRAFT STRUCTURAL FITTER-C Statu s:REG SDC 08/13/2024 Taylor Canales, Garnett MechanicLibbyc Re : Upper GI endoscopy procedure for Leah Jerry Dear Renetta This procedure was performed on Tuesday, August 13, 2024. My impressions and recommendations are as follows: Impressions : - Abnormal esophageal motility, consistent with esophageal spasm. Biopsied. - Small (< 5 mm) esophageal varices. - Small hiatal hernia. - A medium amount of food (residue) in the stomach. - Gastroparesis, secondary to diabetes mellitus type II. - No gross lesions in the duodenal bulb. Recommendations : - Discharge patient to home. - Resume previous diet. - Continue present medications. - Await pathology results. My findings are described in the full procedure note, which is enclosed. If I can be of further assistance, please feel free to contact me at . Sincerely, James Smith DO 08/13/2024 7:42:11 AM This report has been signed electronically. 08/13/24741 Date _ James Smith DO Cosigner Signature: Date (if indicated) CC: KINGS Fields; James Smith DO ~ Date Dictated: 08/13/24725 Date Transcribed: Administrative Support Specialist: RF Signed [facility]03-28-2025 History and physical note [facility] Medical Records Department [address] [place] [address] History & Physical Exam 08/13/24 0659 MR#: [id number] Acct: [id number] Name: LEAH JERRY Rep #:[id number] : 1965 58 From: James Smith DO PCP: KINGS Ruby, AIRCRAFT STRUCTURAL FITTEROpal Statu s:REG SDC Location: [place] [address] HPI - General General Date of Admission: 08/13/24 Date of Service: 08/13/24 Chief Complaint: dysphagia HPI Narrative LEAH JERRY, is a 58 F who presents for the evaluation of dysphagia and esophageal varices OV 03/12/2024 LILLY Ledesma This is a new pt here today for establishment with [facility]. She has had issues with n/v off and on since Jun 2023. Discontinuing Trulicity helped but her symptoms have come back. She underwent EGD in with esophageal varices, inflammation and a benign tumor. She will undergo another EGD to assess her GI tract. We may need to order a GES in the future Pt has never had a diagnosis of cirrhosis or work up for this. She did have esophageal varices and I discussed that this is typically caused by cirrhosis. She does not have a hx of drinking. I ordered liver work up and liver elastography. She has alternating constipation and diarrhea for years now. She has not tried taking any daily medications. She is unwilling to try miralax daily so we I recommended colace. -EGD -Liver elastography -Liver work up -Start colace -Prescribed zofran -f/u in 3 months EGD 04/22/2024 - Ulceration w/ acute esophagitis, neg. H. pylori and celiac sprue It was recommended she complete serum gastrin and GES - Severe ulceration in the esophagus. Please make sure she is on PPI twice a day and metoclopramide3 times a day. - LA Grade C reflux esophagitis with no bleeding. Biopsied. - Enlarged gastric folds. Biopsied. - Erythematous duodenopathy. Biopsied. - check Gastrin level - TONY + serum protein electrophoresis - Gastric emptying study Colon/EGD 07/2023 ([facility]) - neg. H. 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 - Diverticulosis in the entire examined colon. No specimens collected. - One 3 mm polyp in the proximal sigmoid colon. Biopsied. UGI 05/27/2023 No evidence of gastroesophageal reflux. Small traction diverticulum in the distal portion of the esophagus. LABS 04/19/2024 ALP 206 ALP elevation dates back to July 2023 ranging from 144-206. ABD US: 03/25/2024 hepatomegaly ELASTOGRAPHY: 03/25/2024 kPa 3.3 - c/o nausea - this does not cause emesis - dysphagia mid chest - emesis 2x in past 2 weeks - these episodes have been right after meals - she reports food is getting stuck in the esophagus and she is drinking water to try and push food through - this is when shevomits - this has been an issue for the past 3 years - c/o abdominal cramping improves with dicyclomine TID - if she does not take dicyclomine she sharpstabbing generalized pain - reports a history of esophageal dilation several years ago and did well until 3 years ago - she was taking IBU 4 tabs QID for joint pain - she decreased this 3 weeks ago to 3 tabs as needed Dicyclomine 10mg TID Metoclopramide 10mg QID PRN N/V - not taking any of this in the past month Omeprazole 40mg BID Ondansetron 4mg Q8h PRN - about 2x a week - weight is stable - Rheumatology this Friday at [facility] - weakness - 2 falls in past 2 weeks , fallFebruary 2024 - states her legs just give out CBC 03/25/2024 HGB 12.2 PT/INR 03/25/2024 normal CMP: 03/25/2024July ALP 184 Fe pane: 03/25/2024 normal LDH: 03/25/2024 normal CRP: 03/25/2024 normal AFP: 03/25/2024 normal Ceruloplasmin: 03/25/2024 31 normal Serum Copper: 03/25/2024 normal ANCA: 03/25/2024 negative ARIADNA: 03/25/2024 normal SS-A/Ro IgG Ab: 03/25/2024 elevated 2.4 AMA: 03/25/2024 normal ASMA: 03/25/2024 normal HAV IgM 03/25/2024 negative HBVsAg 03/25/2024 negative HBV Core IgM 03/25/2024 negative HCV Ab 03/25/2024 negative HIV 03/25/2024 negative AFP: 03/25/2024 normal IBU - Jan 2024 to May 2024 - for joint aches and pain Half Brother - just passed from liver cirrhosis something genetic [facility] Medical History Esophageal and gastric varices History of ulceration Lupus Osteoarthritis of right knee Right knee pain Greater trochanteric bursitis of left hip Osteoarthritis of left hip Left hip pain Psoriasis Wears glasses Arthritis Difficulty swallowing Gastric reflux History of cellulitis Bilateral carpal tunnel syndrome Anxiety Degenerative disc disease Fibromyalgia MRSA (methicillin resistant staph aureus) culture positive Hx of intestinal obstruction History of diverticulitis Bipolar 1 disorder Depression Diabetes Asthma PTSD (post-traumatic stress disorder) Home Medications ?Medication ?Instructions ?Recorded ?Last Taken ?Type trazodone 150 mg tablet 150 mg PO QHS anxiety 08/12/24 History albuterol sulfate 90 mcg/actuation 2 puff inhalation Q 6H PRN 07/16/21 08/13/24 Rx aerosol inhaler shortness of breath or wheez ing #8.5 grams ibuprofen 500 mg PO Q6H PRN PRN Pain 1 08/12/24 History hydroxyzine HCl 25 mg tablet 25 mg PO TID PRN anxiety 11/04/22 08/12/24 History cetirizine 10 mg tablet 10 mg PO BID 03/06/23 History fluticasone fur. 200 mcg-umeclid 1 inh inhalation Q24H 04/08/23 08/13/24 History 62.5 mcg-vilant 25 mcg inhalat.powder (Trelegy Ellipta) lanolin alcohols-mineral 1 applic topical DAILY 04/0808/13/24 History oil-w.petrolatum-ceresin topical cream (Minerin Creme topical) sertraline 50 mg tablet 50 mg PO DAILY 04/08/23/12/10 History hydroxyzine HCl 25 mg tablet 50 mg PO QHS 06/23/23 History dapagliflozin propanediol 10 mg 10 mg PO DAILY 4 08/10/24 History tablet (Farxiga) omeprazole 40 mg capsule,delayed 40 mg PO BID 10/01/23 08/13/24 History release triamcinolone acetonide 0.1 % 1 applic topical BID 08/12/24 History topical cream atorvastatin 20 mg tablet 20 mg PO QHS 10/28/23 History metformin 500 mg tablet 500 mg PO BID 03/12/2408/12 History propranolol 20 mg tablet 20 mg PO BID 03/12/24 History metoclopramide HCl 10 mg tablet 10 mg PO Q6H PRN nause a and 05/04/24 Unknown Rx vomiting #20 tabs benzonatate 100 mg capsule 100 mg PO BID PRN cough 08/12/24 History dicyclomine 20 mg tablet 20 mg PO TID PRN abdominal p ain 06/14/24 08/11/24 History gabapentin 100 mg capsule 300 mg PO TID 06/14/2408/11 History ondansetron 4 mg disintegrating 4 mg PO Q8H PRN nausea and vomiting 06/14/24 08/12/24 History tablet albuterol sulfate 2.5 mg/3 mL 2.5 mg inhalation Q4H FL N PRN 08/10/24 Unknown History (0.083 %) solution for nebulization shortness of breat h or wheezing cyclobenzaprine 5 mg tablet 5 mg PO BID 08/13/2408/12 History fluticasone propionate 50 2 spray intranasal DAILY PRN 08/13/24 Unknown History mcg/actuation nasal congestion spray,suspension Allergy/AdvReac Type Severity Reaction Status Date / Time Tetracyclines Allergy Intermediate Rash Verified 08/10/24 14:36 aminophylline Allergy Swelling Verified 08/10/24 14:36 amphetamine (From Adderall) Allergy Other Verified 08/10/24 14:36 dextroamphetamine (From Allergy Other Verified 08/10/24 14:36 Adderall) dulaglutide (From Trulicity) Allergy Vomiting Verified 08/10/24 14:36 Iodinated Contrast Media (CT) Allergy Swelling Verified 08/10/24 14:36 iodine Allergy Swelling Verified 08/10/24 14:36 povidone-iodine (From Allergy Swelling Verified 08/10/24 14:36 Betadine) shellfish derived Allergy Swelling Verified 08/10/24 14:36 Sulfa (Sulfonamide Allergy Swelling Verified 08/10/24 14:36 Antibiotics) buspirone (From BuSpar) AdvReac Intermediate Other Verified 08/10/24 14:36 allantoin (From Blistex) AdvReac Swelling Verified 08/10/24 14:36 aloe vera (From Blistex) AdvReac Swelling Verified 08/10/24 14:36 camphor (From Blistex) AdvReac Swelling Verified 08/10/24 14:36 chamomile flower (From AdvReac Swelling Verified 08/10/24 14:36 Blistex) dimethicone (From Blistex) AdvReac Swelling Verified 08/10/24 14:36 herbal complex no.57 (From AdvReac Swelling Verified 08/10/24 14:36 Blistex) homosalate (From Blistex) AdvReac Swelling Verified 08/10/24 14:36 menthol (From Blistex) AdvReac Swelling Verified 08/10/24 14:36 meradimate (From Blistex) AdvReac Swelling Verified 08/10/24 14:36 octinoxate (From Blistex) AdvReac Swelling Verified 08/10/24 14:36 octyl salicylate (From AdvReac Swelling Verified 08/10/24 14:36 Blistex) oxybenzone (From Blistex) AdvReac Swelling Verified 08/10/24 14:36 padimate O (From Blistex) AdvReac Swelling Verified 08/10/24 14:36 petrolatum,hydrophilic (From AdvReac Swelling Verified 08/10/24 14:36 Blistex) phenol (From Blistex) AdvReac Swelling Verified 08/10/24 14:36 tetracycline AdvReac Rash Verified 08/10/24 14:36 Family History Father Diabetes Heart disease COPD (chronic obstructive pulmonary disease) Hypertension Mother Diabetes Heart disease COPD (chronic obstructive pulmonary disease) Cancer Sister Heart disease Thyroid disorder Surgical History History of esophagogastroduodenoscopy (EGD) Hx of colonoscopy History of carpal tunnel surgery Hx of surgical procedure Hx of tooth extraction Hx of breast surgery History of right breast biopsy (~11/2021) History of intestinal surgery History of lumpectomy of right breast Hx of appendectomy Hx of repair of right rotator cuff Hx of bilateral oophorectomy Hx of hysterectomy Social History household members: spouse housing: other details: homeless lives in [facility] Smoking Status: Never smoker alcohol intake: never substance use type: does not use ROS Constitutional Constitutional: Denies fatigue, fever(s), poor appetite, weight gain or weight loss Gastrointestinal Gastrointestinal: Denies belching, bloating, change in bowel habits, change in stool character, chewing difficulty, coffee ground emesis, constipation, cramping, diarrhea, dyspepsia, dysphagia, earlysatiety, excessive flatus, fecalincontinence, heartburn, hematemesis, hematochezia, hemorrhoids, loose stools, melena, nausea, odynophagia, rectal bleeding, tenesmus, vomiting or weight changes Vital Signs Vital Signs Vital Signs: 08/13/24 06:40 08/13/24 06:41 Temperature 98.2 F Temperature Source Temporal Pulse Rate 74 Respiratory Rate 16 Respiratory Pattern Normal Blood Pressure 140/75 H Blood Pressure Mean 96 Blood Pressure Source Monitor Blood Pressure Position Semi-Fowlers Blood Pressure Location Right Arm Pulse Ox 99 Oxygen Delivery Method Room Air Weight Weight: 140 lb 1.6 oz Body Mass Index (BMI) 25.6 Physical Exam Const alert, oriented x3, no apparent distress and healthy appearing General Appearance: cooperative GI normal to inspection, nondistended, normoactive bowel sounds, soft to palpation,non-tender and non-distended Percussion: normal to percussion Rectal Exam: deferred Assessment & Plan Assessment/Plan (1) Esophageal varices: QUALIFIERS: Esophageal varices type: unspecified type Esophageal varices bleeding: without bleedingQualified Code(s): I85.00 - Esophageal varices without bleeding PLAN: Assessment and Plan Assessment and Plan (1) Elevated alkaline phosphatase level: Status: Acute (2) Hepatomegaly: Status: Acute (3) SS-A antibody positive: Status: Acute (4) Nausea: Status: Acute (5) Esophageal varices: Status: Acute Qualifiers: Esophageal varices type: unspecified type Esophageal varices bleeding: without bleeding Qualified Code(s): I85.00 - Esophageal varices without bleeding (6) Difficulty swallowing: Status: Acute Qualifiers: Dysphagia type: esophageal phase Qualified Code(s): R13.19 - Other dysphagia (7) Traction diverticulum of esophagus: Status: Acute Orders: Orders Liver Profile 06/14/24 R11.0 - Nausea, R16.0 - Hepatomegaly, not elsewhere classified, R74.8 - Abnormal levels of other serum enzymes, R76.8 - Other specified abnormal immunological findings in serum GGTP 06/14/24 R11.0 - Nausea, R16.0 - Hepatomegaly, not elsewhere classified, R74.8 - Abnormal levels of other serum enzymes, R76.8 - Other specified abnormalimmunological findings in serum Abdomen Limited 06/14/24 I85.00 - Esophageal varices without bleeding Esophagus Dual Contrast Today K22.5 - Diverticulum of esophagus, acquired, R13.10 - Dysphagia, unspecified Plan 58y/o female presents for follow-up. She was last seen by LILLY Pulido on 03/12/2024 for complaints of N/V on and office June 2023. She had initially noted improvement with discontinuing Trulicity. Colonoscopy and EGD performed July 2023 ([facility]) revealed medium HH and grade II esophageal varices.Due to recurrent N/V she underwent an EGD with Dr. Smith 04/22/2024 which revealed Grade C esophagitis and biopsies were negative for Chiu's and H. pylori. No varices were reported on this exam. In terms of esophageal varices noted on July 2023 EGD she underwent an ABD US which revealed hepatomegaly, Elastography revealed a low risk kPa of 3.3. Her labs do reveal an ALP elevationthat dates back to July 2023 ranging from 144-206. AST was minimally elevated July 2023. She continues to complain of nausea and takes Ondansetron a couple times a week.She reports discontinuing metoclopramide one month ago, as this did not improve her symptoms. She complains of dysphagia in the mid chest with emesis to dislodge. She reportsthe emesis she is experiencing is not associated with nausea. She reports a remote history of esophageal dilation, reporting she did well until 3 years ago.UGI performed 05/27/2023 revealed a small traction diverticulum in the distal esophagus. Diverticulum was not noted on EGD performed July or April 2024. Irecommend repeating esophageal imaging at this time (Esophagram) and pending findings possible CT chest. I do not feel a GES Is needed at this time. She continues to complain of chronic abdominal pain, improved with dicyclomine TID. She complains of chronic joint pain, weakness with recent falls and was taking IBU 800mg QID for four months. She reports decreasing this dose to 600mg PRN three weeks ago. We have discussed high doses of IBU is likely what was contributing to Grade C esophagitis noted on April 2024 EGD. She remains on Omeprazole 40mg BID and will repeat EHD to assess mucosal healing. In terms of joint pain, weakness, and skin lesions with SS-A/Ro IgG Ab 03/25/2024 elevated 2.4 she is scheduled to see Rheumatology this Friday at [facility]. ALP was 206 on most recent labs from 04/19/2024. ABD US revealed hepatomegaly. EGD performed July 2023 with Grade II esophageal varices. Autoimmune and infectious work-up negative except as noted above. She reports a family history of liver disease in her brother. I have ordered additional labs that she will have completed at [facility] this Friday. She will also schedule a liver doppler. Patient Instructions: Avoid ALL Ibuprofen and non-steroidal medications Continue Omeprazole twice a day Esophagram for traction diverticulum noted on prior UGI and ongoing dysphagia Repeat EGD - f/u Grade C esophagitis Elevated ALP with esophageal varices on July EGD - Liver Doppler Liver panel GGT 08/13/24 0702 Cosigner Signature (if applicable): CC: Yajaira [employer]CRA[employer]URAL [employer]TER-C Taylor Fields; James Smith, ~ Signed [facility]03-28-2025 [facility] Medical Records Department [address] [place] [address] History Physical Exam 08/13/24 0659 MR#: [id number] Acct: [id number] Name: LEAH JERRY Rep #: [id number] : 1965 58 From: James Smith DO PCP: KINGS Ruby, AIRCRAFT STRUCTURAL FITTER-C Status:REG SDC Location: [place] [address] HPI - General General Date of Admission: 08/13/24 Date of Service: 08/13/24 Chief Complaint: dysphagia HPI Narrative LEAH JERRY, is a 58 F who presents for the evaluation of dysphagia and esophageal varices OV 03/12/2024 LILLY Ledesma This is a new pt here today for establishment with [facility]. She has had issues with n/v off and on since Jun 2023. Discontinuing Trulicity helped but her symptoms have come back. She underwent EGD in Jun 2023 with esophageal varices, inflammation and a benign tumor. She will undergo another EGD to assess her GI tract. We may need to order a GES in the future Pt has never had a diagnosis of cirrhosis or work up for this. She did have esophageal varices and I discussed that this is typically caused by cirrhosis. She does not have a hx of drinking. I ordered liver work up and liver elastography. She has alternating constipation and diarrhea for years now. She has not tried taking any daily medications. She is unwilling to try miralax daily so we I recommended colace. -EGD -Liver elastography -Liver work up -Start colace -Prescribed zofran -f/u in 3 months EGD 04/22/2024 - Ulceration w/ acute esophagitis, neg. H. pylori and celiac sprue It was recommended she complete serum gastrin and GES - Severe ulceration in the esophagus. Please make sure she is on PPI twice a day and metoclopramide 3 times a day. - LA Grade C reflux esophagitis with no bleeding. Biopsied. - Enlarged gastric folds. Biopsied. - Erythematous duodenopathy. Biopsied. - check Gastrin level - TONY + serum protein electrophoresis - Gastric emptying study Colon/EGD 07/2023 ([facility]) - neg. H. 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 - Diverticulosis in the entire examined colon. No specimens collected. - One 3 mm polyp in the proximal sigmoid colon. Biopsied. UGI 05/27/2023 No evidence of gastroesophageal reflux. Small traction diverticulum in the distal portion of the esophagus. LABS 04/19/2024 ALP 206 ALP elevation dates back to July 2023 ranging from 144-206. ABD US: 03/25/2024 hepatomegaly ELASTOGRAPHY: 03/25/2024 kPa 3.3 - c/o nausea - this does not cause emesis - dysphagia mid chest - emesis 2x in past 2 weeks - these episodes have been right after meals - she reports food is getting stuck in the esophagus and she is drinking water to try and push food through - this is when she vomits - this has been an issue for the past 3 years - c/o abdominal cramping improves with dicyclomine TID - if she does not take dicyclomine she sharp stabbing generalized pain - reports a history of esophageal dilation several years ago and did well until 3 years ago - she was taking IBU 4 tabs QID for joint pain - she decreased this 3 weeks ago to 3 tabs as needed Dicyclomine 10mg TID Metoclopramide 10mg QID PRN N/V - not taking any of this in the past month Omeprazole 40mg BID Ondansetron 4mg Q8h PRN - about 2x a week - weight is stable - Rheumatology this Friday at [facility] - weakness - 2 falls in past 2 weeks , fallFebruary 2024 - states her legs just give out CBC 03/25/2024 HGB 12.2 PT/INR 03/25/2024 normal CMP: 03/25/2024July ALP 184 Fe pane: 03/25/2024 normal LDH: 03/25/2024 normal CRP: 03/25/2024 normal AFP: 03/25/2024 normal Ceruloplasmin: 03/25/2024 31 normal Serum Copper: 03/25/2024 normal ANCA: 03/25/2024 negative ARIADNA: 03/25/2024 normal SS-A/Ro IgG Ab: 03/25/2024 elevated 2.4 AMA: 03/25/2024 normal ASMA: 03/25/2024 normal HAV IgM 03/25/2024 negative HBVsAg 03/25/2024 negative HBV Core IgM 03/25/2024 negative HCV Ab 03/25/2024 negative HIV 03/25/2024 negative AFP: 03/25/2024 normal IBU - Jan 2024 to May 2024 - for joint aches and pain Half Brother - just passed from liver cirrhosis something genetic [facility] Medical History Esophageal and gastric varices History of ulceration Lupus Osteoarthritis of right knee Right knee pain Greater trochanteric bursitis of left hip Osteoarthritis of left hip Left hip pain Psoriasis Wears glasses Arthritis Difficulty swallowing Gastric reflux History of cellulitis Bilateral carpal tunnel syndrome Anxiety Degenerative disc disease Fibromy (more content not included)...[facility]03-28-2025 Consult note [facility] Medical Records Department [address] [place] [address] Pre-Anesthesia Evaluation 08/13/24 0643 MR#: [id number] Acct: [id number] Name: LEAH JERRY Rep #:[id number] : 1965 58 From: Jose Angel Lyon MD PCP: KINGS Ruby, AIRCRA[employer]TER-C Statu s:REG [facility] Y Race: C Location: [place] [address] ASA Classification* ASA Classification ASA Classification: 2 Assessment & Plan Anesthesia* Anesthesia Assessment Anesthesia Assessment: Discussed sedation and/or anesthesia options, risks, benefits, and alternatives with patient/parents/legal guardian/POA. Questions invited. The patient/parents/legal guardian/POA seems to understand and agrees to proceedwith anesthesia plan. Reviewed the physical assessment, medical history, allergy history and patient home medications list prior to surgery/procedure/anesthetic and documented any changes. Performed airway and anesthesia risk assessments. Anesthesia Type Anesthesia Type: MAC Anesthesia Focused Assessment* Airway Assessment Mouth opens: >3 cm Mallampati Score: II Focused Labs Anesthesia Preop lab: CBC WBC 12.1 K/mm3 (4.4-11.0) H 04/19/24 19:10 4 RBC 5.75 M/mm3 (4.2-5.4) H 04/19/24 19:10 04/19/24 Hgb 15.9 g/dL (12.0-15.0) H 04/19/24 19:10 4 Hct 49.4 % (37-47) H 04/19/24 19:10 04/19/24 Plt Count 290 K/mm3 (150-450) 04/19/24 19:10 04/19/24 CHEMISTRY Potassium 3.6 mmol/L (3.5-5.1) 04/19/24 20:58 04/19/24 Sodium 140 mmol/L (136-145) 04/19/24 20:58 04/19/24 Magnesium 2.1 mg/dL (1.6-2.6) 03/07/22 06:30 03/07/22 Phosphorus 3.4 mg/dL (2.5-4.9) 03/07/22 06:30 03/07/22 BUN 15 mg/dL (7-18) 04/19/24 20:58 04/19/24 Creatinine 0.71 mg/dL (0.55-1.02) 04/19/24 20:58 04/19/24 Glucose 162 mg/dL (74-106) H 04/19/24 20:58 04/19/24 POC Glucose 251 mg/dL (74-106) H 04/22/24 05:57 04/22/24 TSH 0.489 uIU/mL (0.358-3.740) 03/25/24 08:02 110 12/09 COAG PT 13.0 SECONDS (11.7-14.9) 04/19/24 19:10 Pre-Assessment Diagnosis/Proposed Procedure Planned Operative Procedure(s): EGD Anesthesia History 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 When Was Last Pacemaker Check QUESTION #4 FULL TEXT: You/Your Family Experience fever (hyperthermia) with Anesthesia Last Oral Intake Last Oral intake: Last Oral Intake NPO since Meds taken in AM with sips of water? 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 Female Yes 08/10/24 14:40 HX of Motion Sickness No 08/10/24 14:40 HX of N/V After Surgery No 08/10/24 14:40 Non-Smoker Yes 08/10/24 14:40 Duration of Surgery greater No 08/10/24 14:40 than 60 minutes Number of Risk Factors 2 08/10/24 14:40 PONV Score Moderate Risk 08/10/24 14:40 Height & Weight Height & Weight: Anesthesia: Height & Weight Height 5 ft 2 in 07/08/24 11:42 Respiratory Assessment Respiratory Assessment - machine shop supervisor: Respiratory Tract Infection Hx - machine shop supervisor Hx Respiratory Tract Infection No 08/10/24 14:40 STOP Sleep Apnea STOP Sleep Apnea - machine shop supervisor: STOP Sleep Apnea - machine shop supervisor Hx Hypertension No 08/10/24 14:40 Hx Sleep Apnea No 08/10/24 14:40 CPAP BIPAP Do you snore loudly (louder Yes 08/10/24 14:40 than talking or can be heard Do you often feel tired/ Yes 08/10/24 14:40 fatigued/ sleepy during daytime? Has anyone observed you stop No 08/10/24 14:40 breathing during sleep? STOP Results Positive 08/10/24 14:40 QUESTION #5 FULL TEXT : Do you snore loudly (louder than talking or can be heard through closeddoors)? 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 Specify any problems Hx of Preganancy in last 3 No 08/10/24 14:40 Months Nurse Filling Out Transfusion DSCHRIBER 08/10/24 14:40 & Questions: Date: 08/10/24 08/10/24 14:40 Time: 14:41 08/10/24 14:40 Patient unable to answer at this time (ie. confused, unrespo /Reproduction History /Reproductive History - machine shop supervisor: /Reproductive Hx- machine shop supervisor Hx Now No 08/10/24 14:40 Gestational Age (in weeks): EDC: Hx Hx Para Hx Section SAB No 08/10/24 14:40 PFSH Medical History Esophageal and gastric varices History of ulceration Lupus Osteoarthritis of right knee Right knee pain Greater trochanteric bursitis of left hip Osteoarthritis of left hip Left hip pain Psoriasis Wears glasses Arthritis Difficulty swallowing Gastric reflux History of cellulitis Bilateral carpal tunnel syndrome Anxiety Degenerative disc disease Fibromyalgia MRSA (methicillin resistant staph aureus) culture positive Hx of intestinal obstruction History of diverticulitis Bipolar 1 disorder Depression Diabetes Asthma PTSD (post-traumatic stress disorder) Home Medications ?Medication ?Instructions ?Recorded ?Last Taken ?Type trazodone 150 mg tablet 150 mg PO QHS anxiety 08/12/24 History albuterol sulfate 90 mcg/actuation 2 puff inhalation Q 6H PRN 07/16/21 08/13/24 Rx aerosol inhaler shortness of breath or wheez ing #8.5 grams ibuprofen 500 mg PO Q6H PRN PRN Pain 1 08/12/24 History hydroxyzine HCl 25 mg tablet 25 mg PO TID PRN anxiety 11/04/22 08/12/24 History cetirizine 10 mg tablet 10 mg PO BID 03/06/23 History fluticasone fur. 200 mcg-umeclid 1 inh inhalation Q24H 04/08/23 08/13/24 History 62.5 mcg-vilant 25 mcg inhalat.powder (Trelegy Ellipta) lanolin alcohols-mineral 1 applic topical DAILY 04/0808/13/24 History oil-w.petrolatum-ceresin topical cream (Minerin Creme topical) sertraline 50 mg tablet 50 mg PO DAILY 04/08/2307/18 History hydroxyzine HCl 25 mg tablet 50 mg PO QHS 06/23/23 History dapagliflozin propanediol 10 mg 10 mg PO DAILY 4 08/10/24 History tablet (Farxiga) omeprazole 40 mg capsule,delayed 40 mg PO BID 10/01/23 08/13/24 History release triamcinolone acetonide 0.1 % 1 applic topical BID 08/12/24 History topical cream atorvastatin 20 mg tablet 20 mg PO QHS 10/28/23 History metformin 500 mg tablet 500 mg PO BID 03/12/2408/12 History propranolol 20 mg tablet 20 mg PO BID 03/12/24 History metoclopramide HCl 10 mg tablet 10 mg PO Q6H PRN nause a and 05/04/24 Unknown Rx vomiting #20 tabs benzonatate 100 mg capsule 100 mg PO BID PRN cough 08/12/24 History dicyclomine 20 mg tablet 20 mg PO TID PRN abdominal p ain 06/14/24 08/11/24 History gabapentin 100 mg capsule 300 mg PO TID 06/14/2408/11 History ondansetron 4 mg disintegrating 4 mg PO Q8H PRN nausea and vomiting 06/14/24 08/12/24 History tablet albuterol sulfate 2.5 mg/3 mL 2.5 mg inhalation Q4H FL N PRN 08/10/24 Unknown History (0.083 %) solution for nebulization shortness of breat h or wheezing cyclobenzaprine 5 mg tablet 5 mg PO BID 08/13/2408/12 History fluticasone propionate 50 2 spray intranasal DAILY PRN 08/13/24 Unknown History mcg/actuation nasal congestion spray,suspension Allergy/AdvReac Type Severity Reaction Status Date / Time Tetracyclines Allergy Intermediate Rash Verified 08/10/24 14:36 aminophylline Allergy Swelling Verified 08/10/24 14:36 amphetamine (From Adderall) Allergy Other Verified 08/10/24 14:36 dextroamphetamine (From Allergy Other Verified 08/10/24 14:36 Adderall) dulaglutide (From Trulicity) Allergy Vomiting Verified 08/10/24 14:36 Iodinated Contrast Media (CT) Allergy Swelling Verified 08/10/24 14:36 iodine Allergy Swelling Verified 08/10/24 14:36 povidone-iodine (From Allergy Swelling Verified 08/10/24 14:36 Betadine) shellfish derived Allergy Swelling Verified 08/10/24 14:36 Sulfa (Sulfonamide Allergy Swelling Verified 08/10/24 14:36 Antibiotics) buspirone (From BuSpar) AdvReac Intermediate Other Verified 08/10/24 14:36 allantoin (From Blistex) AdvReac Swelling Verified 08/10/24 14:36 aloe vera (From Blistex) AdvReac Swelling Verified 08/10/24 14:36 camphor (From Blistex) AdvReac Swelling Verified 08/10/24 14:36 chamomile flower (From AdvReac Swelling Verified 08/10/24 14:36 Blistex) dimethicone (From Blistex) AdvReac Swelling Verified 08/10/24 14:36 herbal complex no.57 (From AdvReac Swelling Verified 08/10/24 14:36 Blistex) homosalate (From Blistex) AdvReac Swelling Verified 08/10/24 14:36 menthol (From Blistex) AdvReac Swelling Verified 08/10/24 14:36 meradimate (From Blistex) AdvReac Swelling Verified 08/10/24 14:36 octinoxate (From Blistex) AdvReac Swelling Verified 08/10/24 14:36 octyl salicylate (From AdvReac Swelling Verified 08/10/24 14:36 Blistex) oxybenzone (From Blistex) AdvReac Swelling Verified 08/10/24 14:36 padimate O (From Blistex) AdvReac Swelling Verified 08/10/24 14:36 petrolatum,hydrophilic (From AdvReac Swelling Verified 08/10/24 14:36 Blistex) phenol (From Blistex) AdvReac Swelling Verified 08/10/24 14:36 tetracycline AdvReac Rash Verified 08/10/24 14:36 Family History Father Diabetes Heart disease COPD (chronic obstructive pulmonary disease) Hypertension Mother Diabetes Heart disease COPD (chronic obstructive pulmonary disease) Cancer Sister Heart disease Thyroid disorder Surgical History History of esophagogastroduodenoscopy (EGD) Hx of colonoscopy History of carpal tunnel surgery Hx of surgical procedure Hx of tooth extraction Hx of breast surgery History of right breast biopsy (~11/2021) History of intestinal surgery History of lumpectomy of right breast Hx of appendectomy Hx of repair of right rotator cuff Hx of bilateral oophorectomy Hx of hysterectomy Social History household members: spouse housing: other details: homeless lives in [facility] Smoking Status: Never smoker alcohol intake: never substance use type: does not use Review of Systems (Anesthesia) ROS Narrative System reviewed and no additional complaints, except as documented. 08/13/24 0644 > Date _ Jose Angel Lyon MD Cosigner Signature: Date CC: ~ Signed [facility]03-25-2025 NotePatient Outreach (INRR) LEAH JERRY ([id number]) 1965 F Date Time Provider Department 08/10/24 SASHA GARCIA INRR During your visit today, we recorded the following information about you: Allergies As of Date: 08/10/2024 Noted Allergy Reaction DEXTROAMPHETAMINE-AMPHETAMINE 09/12/2020 16 - Unknown IODINE 05/29/2021 16 - Unknown POVIDONE-IODINE 05/29/2021 16 - Unknown SULFA (SULFONAMIDE ANTIBIOTICS) 12/10/2000 16 - Unknown BETA-ADRENERGIC AGENTS 12/10/2000 IODINE AND IODIDE CONTAINING PROD*12/10/2000 TETRACYCLINE 12/10/2000 Date Reviewed: 06/17/2024 Reviewed by: Jackelin William - Fully Assessed Visit Diagnosis:Encounter for screening mammogram for breast cancer [Z12.31] Order(s):NELI LEE W JACQUE [[id number]] Order #: [id number] FUTURE Prescriptions as of 09/10/2024 - acetaminophen 650 mg CR tablet Take by mouth. - benzonatate (TESSALON PERLE) 100 mg capsule TAKE ONE CAPSULE BY MOUTH TWICE DAILY NEEDED FOR cough - ONETOUCH VERIO TEST STRIPS test strip check blood sugar THREE TIMES DAILY - FARXIGA 10 mg tablet Take 1 tablet by mouth every afternoon. - dicyclomine (BENTYL) 20 mg tablet Take 20 mg by mouth three times a day. - fluticasone (FLONASE) 50 mcg/actuation nasal spray SPRAY TWO SPRAYS IN EACH NOSTRIL EVERY DAY - gabapentin (NEURONTIN) 300 mg capsule Take 300 mg by mouth three times a day. - ONETOUCH DELICA PLUS LANCET 30 gauge check blood glucose 3 x daily for type 2 DM - MINERIN CREME cream apply to lower legs liberally twice daily - metoclopramide HCl (REGLAN) 10 mg tablet take one tablet by mouth every 6 hours as needed for nausea and vomiting - NYSTOP powder APPLY TO THE AFFECTED AREA(S) TWICE DAILY UNDER bilateral breasts - ondansetron orally disintegrating (ZOFRAN ODT) 4 mg disintegrating tablet DISSOLVE ONE TABLET UNDER THE TONGUE EVERY 8 HOURS - propranolol (INDERAL) 20 mg tablet Take 20 mg by mouth two times a day as needed. - promethazine (PHENERGAN) 12.5 mg tablet TAKE ONE TABLET TWICE DAILY NEEDED FOR NAUSEA - triamcinolone acetonide (KENALOG) 0.1 % cream apply TO TO RASH as needed AT LEGS, trunk. AVOID face AND immediate fold AREAS TWICE DAILY - atorvastatin (LIPITOR) 40 mg tablet Take 40 mg by mouth daily at bedtime. - cyclobenzaprine (FLEXERIL) 5 mg tablet TAKE ONE TABLET BY MOUTH TWICE DAILY NEEDED FOR muscle pain - desonide (TRIDESILON) 0.05 % cream apply topically ONCE DAILY UNDER breast NEEDED FOR itch/irritation - TRULICITY 0.75 mg/0.5 mL pen injector inject 0.75 mg subcutaneous every week as directed - TRELEGY ELLIPTA 200-62.5-25 mcg inhalation powder Inhale 1 Puff as instructed once daily. - hydrOXYzine pamoate (VISTARIL) 25 mg capsule Take 50 mg by mouth. - sertraline (ZOLOFT) 50 mg tablet Take 1 tablet by mouth every afternoon. - Clobetasol Propionate (TEMOVATE) 0.05 % external solution Apply 1 application to affected area twice daily. - albuterol HFA (PROVENTIL HFA, VENTOLIN HFA) 90 mcg/actuation inhaler Inhale 2 Puffs as instructed every 4 hours as needed for wheezing/shortness of breath. - metFORMIN ER (GLUCOPHAGE XR) 500 mg 24 hr tablet Take 1 tablet by mouth daily with breakfast. - fluticasone-salmeterol HFA (ADVAIR HFA) 45-21 mcg/actuation inhaler Inhale 2 Puffs as instructed twice daily. May substitute for insurance coverage - omeprazole (PRILOSEC) 40 mg capsule - traZODone (DESYREL) 150 mg tablet - PREVACID CAPSULE DR 30MG PO mineral oilm - WELLBUTRIN SR TABLET SA 150MG PO 1 tab bid - SERZONE TABLET 150MG PO 1 q am, 2 q hs - ZYRTEC TABLET 10MG PO Problem List As Of Date 08/10/2024 Noted Resolved Moderate persistent asthma with exacerbation [J*09/19/2020 Psoriasis [L40.9] 08/10/2020 Type 2 diabetes mellitus (HCC) [E11.9] 08/10/2020 Encounter Status:Closed by HANS ADAMESUSER on 09/10/24[facility] 07-10-2024 Radiology Diagnostic study note [facility] Imaging Services [address] [place] [address] Chest PA and Lateral MR#: [id number] Acct: [id number] Name: LEAH JERRY Rep #: [id number] : 1965 F 58 From: Ashley Wesley MD PCP: Taylor Fields [facility] [employer] Status: REG CLI Study:Chest PA and Lateral Date of Exam: 07/09/24 Exam# [id number] Ordering Dr: Bulmaro Cook [facility] [employer] PROCEDURE: CHEST PA AND LATERAL REASON FOR EXAM: Dyspnea TECHNIQUE: Frontal and lateral views of the chest. COMPARISON: 11/25/2022 FINDINGS: The heart size is normal. There are atherosclerotic calcifications of the thoracic aorta. There are chronic-appearing changes of both lungs. The bones are unremarkable. RAD/Chest PA and Lateral IMPRESSION: No radiographic evidence of acute cardiopulmonary disease. Stable right basilarscarring Reading Location: [facility] CC: [facility] [employer] Taylor Fields; Katherin [facility] [employer] Joey ~ Administrative Support Specialist: Signed [facility]01-30-2025 History of Present illness Narrative* Catalina Richard RT(R) - 06/17/2024 10:00 AM EST Radiology Service Progress Note PATIENT NAME: Leah Jerry DATE OF SERVICE: June 17, 2024 TIME: 11:13 AM PATIENT IDENTITY VERIFICATION COMPLETED USING TWO (2) IDENTIFIERS: Name and Date of confirmedby patient verbally. FALL SCREENING: Has the patient had 2 falls in the last year or 1 fall with injury or currently using an Ambulatory Assistive Device (Walker, Cane, Wheelchair, Crutches, etc.)? No PATIENT GENDER DATA: Assigned female at . status: : No status:NO. PATIENT RELEVANT IMPLANT DATA REVIEWED: Not Applicable PATIENT PRESENTS WITH AN IMPLANTABLE OR ATTACHED JAVA WEB SERVICES DEVELOPER: No RADIOLOGY DEPARTMENT: General X-ray: Exam(s) Completed: Spine X-Ray(s): Lumbar AP / LAT / L5-S1 Pelvis X-Ray: sacroiliac joints Lower Extremity X-Ray(s): Knee, AP / Lat / Tunne / Merchant Bilateral Upper Extremity X-Ray(s): Hand, bilateral PERIPHERAL IV DATA: Not applicable SIGNED BY: RT Nilesh(Favio) June 17, 2024 11:13 AM [facility] NoteHNO ID: [id number] Author: CATALINA RICHARD RT(R) Service: ? Author Type: Logging Truck Driver Type: Progress Notes Filed: 06/17/2024 11:14 Note Text: Radiology Service Progress Note PATIENT NAME: Leah Jerry DATE OF SERVICE: June 17, 2024 TIME: 11:13 AM PATIENT IDENTITY VERIFICATION COMPLETED USING TWO (2) IDENTIFIERS: Name and Date of confirmed by patient verbally. FALL SCREENING: Has the patient had 2 falls in the last year or 1 fall with injury or currently using an Ambulatory Assistive Device (Walker, Cane, Wheelchair, Crutches, etc.)? No PATIENT GENDER DATA: Assigned female at . status: : No status: NO. PATIENT RELEVANT IMPLANT DATA REVIEWED: Not Applicable PATIENT PRESENTS WITH AN IMPLANTABLE OR ATTACHED JAVA WEB SERVICES DEVELOPER: No RADIOLOGY DEPARTMENT: General X-ray: Exam(s) Completed: Spine X-Ray(s): Lumbar AP / LAT / L5-S1 Pelvis X-Ray: sacroiliac joints Lower Extremity X-Ray(s): Knee, AP / Lat / Tunne / Merchant Bilateral Upper Extremity X-Ray(s): Hand, bilateral PERIPHERAL IV DATA: Not applicable SIGNED BY: RT Nilesh(R) June 17, 2024 11:13 [facility]01-30-2025 Instructions* Patient Instructions* Mimi Lott APRN.PLASTER HELPER - 06/17/2024 9:38 AM EST Please have these tests faxed to Tesha Lott NP [phone] Bone density Colonoscopy EGD [facility] History of Present illness Narrative* Mimi Lott APRN.PLASTER HELPER - 06/17/2024 8:30 AM EST Images from the original note were not included. RHEUMATOLOGY NEW PATIENT NOTE Consultation requested by Grace Arguello NP (GI) for an opinion regarding abnormal labs. My finalrecommendations will be communicated back to the requesting physician by way of shared Medical record or letter to requesting physician via US mail. HISTORY OF PRESENT ILLNESS Pt is referred by Grace Arguello NP (GI) for abnormal labs PMH sig for Type 2 DM, asthma, HLD, severe GERD, HTN, migraine, bilat CTS, DDD, possible RMSV, osteoporosis with compression fx T12, vit D deficiency, bipolar I, right axillary abscess (November 2021), COVID+ (Feb 2022) SSA positive, remainder of JULIO negative (2023) dsDNA negative (2023) ANCA negative (2023) Anti-smooth Ab negative (2023) Anti-mitochondrial Ab negative (2023) CRP WNL (2023) Sed rate 7 (2023) Shoulder XR normal (2023) Knee XR normal (2023) Joints hurt all day Back, sacrum/coccyx Both hands hurt, middle knuckles swell Worse in the afternoon Diagnosed with osteopenia Had BMD 05/11/2024 (results not available) History of T12 compression fracture Unable to drink milk as a child due to asthma Eats yogurt, cheese, milk on cereal. No calcium supplement. RHEUMATOLOGIC REVIEW OF SYSTEMS June 17, 2024: + rash on bilat LE, lower back, under breasts and on scalp since ~2019 No ulcers in mouth or nose No photosensitivity No history of blood clots No miscarriages + fatigue, worse since 2021 No history of Raynaud's but does endorse red/purple/white changes to entire hand in cold No fevers No bright red painful eyes + sicca, dry mouth for the last 4 years No sob + cough every night No diarrhea, occasional constipation + chronic back pain + history of psoriasis No morning stiffness No weight loss No Achilles tendinitis/plantar fasciitis No enthesitis RELEVANT FAMILY HISTORY: Mom and sister have psoriasis. PGM had RA. Paternal aunt had UC. MGM, mother, sister with thyroid disease. Otherwise denies family history of autoimmune disease in first degree relatives: psoriasis, psoriatic arthritis, rheumatoid arthritis, multiple sclerosis, Crohn's/ulcerative colitis, thyroid disease, and/or type 1 DM. PAST MEDICAL HISTORY Diagnosis Date Arthritis Asthma Compression fracture of T12 vertebra (HCC) DDD (degenerative disc disease), lumbar Diabetes (HCC) Essential hypertension GERD (gastroesophageal reflux disease) Mixed hyperlipidemia Nodule of apex of right lung Osteopenia Psoriasis Vitamin D deficiency No past surgical history on file. FAMILY HISTORY Problem Relation Age of Onset Psoriasis Mother Thyroid Mother Heart Attack Mother COPD Mother Diabetes Mother Heart disease Father Blood Clots Father COPD Father Diabetes Father Osteoporosis Father Hypertension Sister Hyperlipidemia Sister other (Osteopenia) Sister Arthritis Sister Heart disease Sister Diabetes Sister Arthritis Sister other (Sciatica) Sister Thyroid Sister Thyroid Maternal Grandmother Diabetes Maternal Grandmother Hyperlipidemia Maternal Grandmother other (CHF) Maternal Grandmother Heart Attack Maternal Grandmother Diabetes Maternal Grandfather Rheumatologic disease Paternal Grandmother RA Diabetes Paternal Grandmother Heart disease Paternal Grandmother CABG x4 Liver Disease Paternal Grandfather Esophageal Cancer Paternal Grandfather Stomach Cancer Paternal Grandfather Liver Disease Half-brother Genetic Kidney Disease Half-brother Asthma Son Born 1982 No Known Problems Son Born 1984 Social History Tobacco Use Smoking status: Never Smokeless tobacco: Never Substance Use Topics Drug use: Yes Types: Marijuana Current Outpatient Medications Medication Sig acetaminophen 650 mg CR tablet Take by mouth. ONETOUCH VERIO TEST STRIPS test strip check blood sugar THREE TIMES DAILY FARXIGA 10 mg tablet Take 1 tablet by mouth every afternoon. dicyclomine (BENTYL) 20 mg tablet Take 20 mg by mouth three times a day. fluticasone (FLONASE) 50 mcg/actuation nasal spray SPRAY TWO SPRAYS IN EACH NOSTRIL EVERY DAY gabapentin (NEURONTIN) 300 mg capsule Take 300 mg by mouth three times a day. ONETOUCH DELICA PLUS LANCET 30 gauge check blood glucose 3 x daily for type 2 DM MINERIN CREME cream apply to lower legs liberally twice daily metoclopramide HCl (REGLAN) 10 mg tablet take one tablet by mouth every 6 hours as needed for nausea and vomiting NYSTOP powder APPLY TO THE AFFECTED AREA(S) TWICE DAILY UNDER bilateral breasts propranolol (INDERAL) 20 mg tablet Take 20 mg by mouth two times a day as needed. promethazine (PHENERGAN) 12.5 mg tablet TAKE ONE TABLET TWICE DAILY NEEDED FOR NAUSEA triamcinolone acetonide (KENALOG) 0.1 % cream apply TO TO RASH as needed AT LEGS, trunk. AVOID face& immediate fold AREAS TWICE DAILY atorvastatin (LIPITOR) 40 mg tablet Take 40 mg by mouth daily at bedtime. cyclobenzaprine (FLEXERIL) 5 mg tablet TAKE ONE TABLET BY MOUTH TWICE DAILY NEEDED FOR muscle pain desonide (TRIDESILON) 0.05 % cream apply topically ONCE DAILY UNDER breast NEEDED FOR itch/irritation hydrOXYzine pamoate (VISTARIL) 25 mg capsule Take 50 mg by mouth. sertraline (ZOLOFT) 50 mg tablet Take 1 tablet by mouth every afternoon. Clobetasol Propionate (TEMOVATE) 0.05 % external solution Apply 1 application to affected area twice daily. albuterol HFA (PROVENTIL HFA, VENTOLIN HFA) 90 mcg/actuation inhaler Inhale 2 Puffs as instructed every 4 hours as needed for wheezing/shortness of breath. metFORMIN ER (GLUCOPHAGE XR) 500 mg 24 hr tablet Take 1 tablet by mouth daily with breakfast. omeprazole (PRILOSEC) 40 mg capsule traZODone (DESYREL) [address] 30MG PO mineral oilm SERZONE TABLET 150MG PO 1 q am, 2 q hs ZYRTEC TABLET 10MG PO benzonatate (TESSALON PERLE) 100 mg capsule TAKE ONE CAPSULE BY MOUTH TWICE DAILY NEEDED FOR cough ondansetron orally disintegrating (ZOFRAN ODT) 4 mg disintegrating tablet DISSOLVE ONE TABLET UNDERTHE TONGUE EVERY 8 HOURS TRULICITY 0.75 mg/0.5 mL pen injector inject 0.75 mg subcutaneous every week as directed (Patient not taking: Reported on 06/17/2024) TRELEGY ELLIPTA 200-62.5-25 mcg inhalation powder Inhale 1 Puff as instructed once daily. (Patient not taking: Reported on 06/17/2024) fluticasone-salmeterol HFA (ADVAIR HFA) 45-21 mcg/actuation inhaler Inhale 2 Puffs as instructed twice daily. May substitute for insurance coverage WELLBUTRIN SR TABLET SA 150MG PO 1 tab bid (Patient not taking: Reported on 12/24/2021) No current facility-administered medications for this visit. Review of Systems CONSTITUTION: Negative for: Fever and Recent weight change HEENT: Positive for: Dry mouth Negative for: Mouth sores RESPIRATORY: Positive for: Cough and Shortness of breath Negative for: Pain with breathing and Coughing up blood GASTROINTESTINAL: Positive for: Heartburn and Abdominal pain Negative for: Melena and Diarrhea MUSCULOSKELETAL: Positive for: Arthralgias NEUROLOGICAL: Positive for: Headaches and Numbness SKIN: Positive for: Rash and Skin changes Negative for: Sun Sensitive Rash, Hair loss and Nail changes EYES: Negative for: Eye pain and Eye dryness CARDIOVASCULAR: Negative for: Chest pain and Leg swelling GENITOURINARY: Negative for: Dysuria and Hematuria HEMATOLOGIC/LYMPHATIC: Negative for: Swollen glands Physical Exam BP 124/69 Pulse 75 Temp 36.6 C (97.8 F) (Temporal) Ht 157.5 cm (5' 2) Wt 61.6 kg (135 lb 12.9 oz) BMI 24.84 kg/m General appearance: well-appearing, alert, no distress, pleasant affect Eyes: PERRL, no scleral icterus or erythema ENT: moist oral mucosa, edentulous, no ulcers or lesions Neck: no swelling or tenderness Resp: clear to auscultation bilaterally CV: regular rate and rhythm Abdomen: soft, non-distended Lymphatic: no cervical or supraclavicular lymphadenopathy Skin: +rashes scalp, legs (see photos), upper right arm, under breasts. +fingernail pitting. No onycholysis or subungual hyperkeratosis Musculoskeletal: +TTP PIPs and DIPs. No synovitis. Full ROM. Gait: normal Scalp Legs Immunization History Administered Date(s) Administered COVID-19 original vaccine, age 12+ yr, monovalent ([employer] - RAMIRES TOP) 08/26/2021 COVID-19 original vaccine, age 12+ yr, monovalent ([employer] - PURPLE TOP) 02/22/2021 03/23/2021 COVID-19 vaccine (BEBA) 06/19/2021 09/16/2021 influenza (IIV3) vaccine, trivalent (AFLURIA, FLULAVAL, FLUVIRIN, FLUZONE) 05/19/2015 03/05/2016 02/28/2020 02/16/2021 03/07/2022 influenza (IIV3) vaccine, trivalent, PF (AFLURIA, FLUARIX, FLULAVAL, FLUVIRIN, FLUZONE) 05/19/2017 pneumococcal polysaccharide (PPV23) vaccine, 23 valent (PNEUMOVAX 23) 07/22/2014 tetanus diphtheria pertussis (Tdap) vaccine, age 7+ yr (ADACEL, BOOSTRIX) 05/28/2021 Assessment/Plan: Ms. Jerry is a very pleasant 58 year old female with PMH significant for Type 2 DM, asthma, HLD,severe GERD, HTN, migraine, bilat CTS, DDD, possible RMSV, osteoporosis with compression fx T12, vit D deficiency, depression, who presents for abnormal labs. Upon review of Ms. Jerry's chart it appears the abnormal lab of concern is a positive SSA antibody. The remainder of her JULIO is negative. She states she was told she has lupus. I reassured her that she does not meet the classification criteria for lupus and her symptoms are not c/w this disease. She endorses joint pain ([place] hands), low back pain, dry mouth and neuropathy (attributed to Type 2 DM) which could be symptoms of Sjogren's Disease. Will repeat labs. Strong family history of autoimmune disease. Most striking on physical exam is her active psoriasis. She has extensive plaques on her legs and scattered smaller plaques on her arms and scalp. She also has a red beefy rash under her breasts - I am unsure if this is inverse psoriasis or lashanda. According to Ms. Jerry she has been using topical steroid preparations for years with no clear benefit. No reported history of uveitis or IBD but she does report inflammation on her EGD and c-scope. I have asked her to request that these reports be faxed to me. Unclear if her joint pains are related to her PsO (PsA) or not (OA, old damage, FMS, other). Will repeat ATIF, basic labs Reported history of osteopenia/osteoporosis. Check vit D. XR hands, lumbar, SI joints, knees I will contact Ms. Jerry via FindIt once I have the results. We will then decide if she should continue to be followed in rheum or see dermatology. - ATIF BY IFA WITH REFLEX - VITAMIN D 25 HYDROXY - COMPLETE BLOOD COUNT AND DIFFERENTIAL - COMPREHENSIVE METABOLIC PANEL - SEDIMENTATION RATE, WESTERGREN - C-REACTIVE PROTEIN - HEP REMOTE PANEL BL - BLOOD TB SCREEN - XR HAND GENERAL 3V PA/LAT/OBL BILATERAL - XR SACROILIAC JOINTS 2V AP PELVIS/FERGUESON - XR LUMBAR GENERAL 3V AP/LAT/L5-S1 - XR KNEE GENERAL 4V AP BOTH/PA BOTH/LAT/MERC BILATERAL Mimi Lott APRN.CNP June 17, 2024 I spent a total of 70 minutes on the date of the service which included preparing to see the patient, [id number] patient care, completing clinical documentation, obtaining and/or reviewing separately obtained history, performing a medically appropriate examination, counseling and educating the pat ient/family/caregiver, ordering medications, tests, or procedures, and independently interpreting results (not separately reported). [facility] NoteHNO ID: [id number] Author: MIMI LOTT APRN.CNP Service: ? Author Type: Nurse Practitioner Type: Progress Notes Filed: 06/17/2024 14:55 Note Text: RHEUMATOLOGY NEW PATIENT NOTE Consultation requested by Grace Arguello NP (KARLENE) for an opinion regarding abnormal labs. My final recommendations will be communicated back to the requesting physician by way of shared Medical record or letter to requesting physician via US mail. HISTORY OF PRESENT ILLNESS Pt is referred by Grace Arguello NP (KARLENE) for abnormal labs PMH sig for Type 2 DM, asthma, HLD, severe GERD, HTN, migraine, bilat CTS, DDD, possible RMSV, osteoporosis with compression fx T12, vit D deficiency, bipolar I, right axillary abscess (November 2021), COVID+ (Feb 2022) SSA positive, remainder of JULIO negative (2023) dsDNA negative (2023) ANCA negative (2023) Anti-smooth Ab negative (2023) Anti-mitochondrial Ab negative (2023) CRP WNL (2023) Sed rate 7 (2023) Shoulder XR normal (2023) Knee XR normal (2023) Joints hurt all day Back, sacrum/coccyx Both hands hurt, middle knuckles swell Worse in the afternoon Diagnosed with osteopenia Had BMD 05/11/2024 (results not available) History of T12 compression fracture Unable to drink milk as a child due to asthma Eats yogurt, cheese, milk on cereal. No calcium supplement. RHEUMATOLOGIC REVIEW OF SYSTEMS June 17, 2024: + rash on bilat LE, lower back, under breasts and on scalp since ~2019 No ulcers in mouth or nose No photosensitivity No history of blood clots No miscarriages + fatigue, worse since 2021 No history of Raynaud's but does endorse red/purple/white changes to entire hand in cold No fevers No bright red painful eyes + sicca, dry mouth for the last 4 years No sob + cough every night No diarrhea, occasional constipation + chronic back pain + history of psoriasis No morning stiffness No weight loss No Achilles tendinitis/plantar fasciitis No enthesitis RELEVANT FAMILY HISTORY: Mom and sister have psoriasis. PGM had RA. Paternal aunt had UC. MGM, mother, sister with thyroid disease. Otherwise denies family history of autoimmune disease in first degree relatives: psoriasis, psoriatic arthritis, rheumatoid arthritis, multiple sclerosis, Crohn's/ulcerative colitis, thyroid disease, and/or type 1 DM. PAST MEDICAL HISTORY Diagnosis Date Arthritis Asthma Compression fracture of T12 vertebra (HCC) DDD (degenerative disc disease), lumbar Diabetes (HCC) Essential hypertension GERD (gastroesophageal reflux disease) Mixed hyperlipidemia Nodule of apex of right lung Osteopenia Psoriasis Vitamin D deficiency No past surgical history on file. FAMILY HISTORY Problem Relation Age of Onset Psoriasis Mother Thyroid Mother Heart Attack Mother COPD Mother Diabetes Mother Heart disease Father Blood Clots Father COPD Father Diabetes Father Osteoporosis Father Hypertension Sister Hyperlipidemia Sister other (Osteopenia) Sister Arthritis Sister Heart disease Sister Diabetes Sister Arthritis Sister other (Sciatica) Sister Thyroid Sister Thyroid Maternal Grandmother Diabetes Maternal Grandmother Hyperlipidemia Maternal Grandmother other (CHF) Maternal Grandmother Heart Attack Maternal Grandmother Diabetes Maternal Grandfather Rheumatologic disease Paternal Grandmother RA Diabetes Paternal Grandmother Heart disease Paternal Grandmother CABG x4 Liver Disease Paternal Grandfather Esophageal Cancer Paternal Grandfather Stomach Cancer Paternal Grandfather Liver Disease Half-brother Genetic Kidney Disease Half-brother Asthma Son Born 1982 No Known Problems Son Born 1984 Social History Tobacco Use Smoking status: Never Smokeless tobacco: Never Substance Use Topics Drug use: Yes Types: Marijuana Current Outpatient Medications Medication Sig acetaminophen 650 mg CR tablet Take by mouth. ONETOUCH VERIO TEST STRIPS test strip check blood sugar THREE TIMES DAILY FARXIGA 10 mg tablet Take 1 tablet by mouth every afternoon. dicyclomine (BENTYL) 20 mg tablet Take 20 mg by mouth three times a day. fluticasone (FLONASE) 50 mcg/actuation nasal spray SPRAY TWO SPRAYS IN EACH NOSTRIL EVERY DAY gabapentin (NEURONTIN) 300 mg capsule Take 300 mg by mouth three times a day. ONETOUCH DELICA PLUS LANCET 30 gauge check blood glucose 3 x daily for type 2 DM MINERIN CREME cream apply to lower legs liberally twice daily metoclopramide HCl (REGLAN) 10 mg tablet take one tablet by mouth every 6 hours as needed for nausea and vomiting NYSTOP powder APPLY TO THE AFFECTED AREA(S) TWICE DAILY UNDER bilateral breasts propranolol (INDERAL) 20 mg tablet Take 20 mg by mouth two times a day as needed. promethazine (PHENERGAN) 12.5 mg tablet TAKE ONE TABLET TWICE DAILY NEEDED FOR NAUSEA triamcinolone acetonide (KENALOG) 0.1 % cream apply TO TO RASH as needed AT LEGS, trunk. (more content not included)...[facility]01-27-2025 Evaluation note* Diagnosis Onset Date Resolution Status Admit Date Difficulty swallowing acute May 1:56pm Elevated alkaline phosphatas e level acute June 14 1:56pm Esophageal varices acute 2024 1:56pm Hepatomegaly acute May 1:56pm Nausea acute June 14, 2024 1:56pm SS-A antibody positive acute [facility] 2024 1:56pm Traction diverticulum of esophagus acute June 14 1:56pm Esophageal varices acute August 13, 2024 5:48am [facility] Work Phone: 1(663) 499-381901-27-2025 Evaluation note* Diagnosis Onset Date Resolution Status Admit Date Difficulty swallowing acute May 1:56pm Elevated alkaline phosphatas e level acute June 14 1:56pm Esophageal varices acute 2024 1:56pm Hepatomegaly acute May 1:56pm Nausea acute June 14, 2024 1:56pm SS-A antibody positive acute [facility] 2024 1:56pm Traction diverticulum of esophagus acute June 14 1:56pm Esophageal varices acute August 13, 2024 5:48am Greater trochanteric bursitis acute August 17, 2024 9:35am Low back pain at multiple sites acut e August 17, 2024 9:35am Piriformis muscle pain acute Ap ril 2024 9:35am Rash acute August 17 9:35am [facility] Work Phone: 1(802) 660-513401-27-2025 Evaluation note* Diagnosis Onset Date Resolution Status Admit Date Difficulty swallowing acute Luis uary 2024 1:56pm Elevated alkaline phosphatas e level acute June 14 1:56pm Esophageal varices acute Mayuar y 2024 1:56pm Hepatomegaly acute May 1:56pm Nausea acute June 14, 2024 1:56pm SS-A antibody positive acute [facility] 2024 1:56pm Traction diverticulum of esophagus acute June 14 1:56pm Esophageal varices acute August 13, 2024 5:48am Greater trochanteric bursitis acute August 17, 2024 9:35am Low back pain at multiple sites acut e August 17, 2024 9:35am Piriformis muscle pain acute Ap ril 2024 9:35am Rash acute August 17 9:35am Gastric reflux acute August 1:54pm Nausea & vomiting acute August 172024 1:54pm [facility] Work Phone: 1(202) 857-553012-05-2024 [facility] Medical Records Department [address] [place] [address] History Physical Exam 04/22/24 0640 MR#: [id number] Acct: [id number] Name: LEAH JERRY Rep #: [id number] : 1965 58 From: James Smith DO PCP: KINGS Ruby, [employer] Status:[facility] Location: [place] [address] History and Physical Date of Admission: 04/22/24 LEAH JERRY, is a 58 F who presents to the office today for establishment with [facility]. Pt has a PMHx of diverticulitis, GERD, and carpal tunnel syndrome. She is here today for evaluation of nausea and vomiting. In 2023 she was having daily nausea with vomiting up to 3x per day. She had both lower and upper endoscopy which showed UGI inflammation, varices and a benign tumor This lasted until October when they took her off Trulicity and then it resolved. The nausea went away but has recently come back with vomiting around 3x per day. She is able to eat and does not feel like she has had weight loss. She feels like the food is getting stuck when she eats. She is not diagnosed with cirrhosis and has never had work up. She does not drink alcohol. She smokes weed sometimes. She has struggled with constipation alternating with diarrhea for a long time now. She has hx of bowel obstructions. She does not take daily medications for her bowels. She typically has a bowel movement every 4 days that is difficult to pass. EGD 08.12.23;- No gross lesions in the entire examined duodenum. No specimens collected. - Erythematous mucosa in the antrum. Biopsied. - Congestive gastropathy. Biopsied. - Z-line regular, 36 cm from the incisors. Biopsied. - Medium-sized hiatal hernia. No specimens collected. 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 Biopsied. - Grade II esophageal varices. No specimens collected Colonoscopy 08.12.23; - Perianal skin tags found on perianal exam. - Diverticulosis in the entire examined colon. No specimens collected. - One 3 mm polyp in the proximal sigmoid colon. Biopsied. ROS Const Constitutional: Positive for fatigue, headache(s), weakness and weight change (weight gain); No fever(s) Eyes Eyes: No change in vision ENT ENT: Positive for headache(s) and difficulty swallowing Resp Respiratory: No cough or shortness of breath Cardio Cardiology: No chest pain at rest, chest pain with exertion, shortness of breath or dyspnea on exertion Gastro GI: Positive for abdominal pain, bloating, constipation, diarrhea, heartburn, difficulty swallowing, excessive flatus, nausea/dyspepsia and vomiting; No belching, change in bowel habits, change in stool character, coffee ground emesis, cramping, feeling full early, incontinent of stools, Vomiting blood/hematemesis, Blood in stool, loose stools, Black,tarry stools, pain with swallowing or other Genitourinary-Female: No difficulty urinating or burning urination Musc Musculoskeletal: Positive for joint pain, back pain, joint swelling, muscle cramps, muscle weakness, numbness, stiffness, tingling, Arthritis and sciatica Skin Skin: Positive for dry skin, itchy eyes and rash; No yellowing of the eye Neuro Neurology: Positive for weakness, headache(s), numbness, tingling, tremor(s) and other (vertigo) Psych Psychiatric: Positive for anxiety, Positive for depression and Positive for obsessions/compulsions Endo Endocrine: Positive for fatigue and weight change (weight gain) Aller/Imm Allergy/Immunologic: Positive for itchy eyes Khris/Lymp Hematologic/Lymphatic: Positive for easy bleeding and easy bruising Exam Const General: cooperative and comfortable Nutritional Appearance: average body habitus and well nourished HENMT Head: normal to inspection Ears: hearing grossly normal bilaterally Nose: external nose normal Face and sinus: normal facial exam Teeth and gingiva: edentulous Eyes General: appearance normal, both eyes and all related structures Neck Neck: normal visual inspection Chest Chest palpation inspection: normal inspection of the chest Resp Effort Inspection: normal respiratory effort Auscultation: Bilateral: Clear to Auscultation Cardio Palpation: normal PMI Rate: regular rate Rhythm: regular rhythm GI Inspection: normal to inspection Auscultation: normal bowel sounds Percussion: normal to percussion Palpation: no hepatosplenomegaly Skin General: no rashes or lesions noted Neuro General: patient alert Extrem General: normal to inspection Psych Affect: normal affect Assessment and Plan Assessment and Plan (1) Esophageal varices: Status: Acute Plan: This is a new pt here today for establishment with [facility]. She has had issues with n/v off and on since Jun 2023. Discontinuing Trulicity helped but her symptoms have come back. She underwent EGD in Jun 2023 with esophageal varices, inflammation and a shari (more content not included)...[facility]11-19-2024 Evaluation note* Diagnosis Onset Date Resolution Status Admit Date Greater trochanteric bursiti s of left hip acute April 06, 2 024 1:55pm Left hip pain acute April 062023 1:55pm Osteoarthritis of left hip acute April 06, 2024 1:55pm Osteoarthritis of right knee acute April 09, 2024 1:43pm Right knee pain acute April 09, 2024 1:43pm Difficulty swallowing acute Luis uary 2024 1:56pm Elevated alkaline phosphatas e level acute June 14 1:56pm Esophageal varices acute Carmencitar y 2024 1:56pm Hepatomegaly acute May 1:56pm Nausea acute June 14, 2024 1:56pm SS-A antibody positive acute Ja nuary 2024 1:56pm Traction diverticulum of esophagus acute June 14 1:56pm [facility] Work Phone: 1(754) 424-406106-20-2024 Telephone encounter Note* Telephone Encounter - Michela Bahena RN - 11/06/2023 12:17 PM EDT Received the report from Dr. Mahesh Robert M.D. in [place], [place] of the EGD/colonoscopy/biopsy reports from 08/12/23. Gave to Dr. Arellano for review. Once completed will send to the scanning departmentto be scanned into pt's chart. Michela Bahena RN November 06, 2023 12:18 PM [facility]06-20-[facility] Miscellaneous Notes* Telephone Encounter - Michela Bahena RN - 11/06/2023 12:17 PM EDT Received the report from Dr. Mahesh Robert M.D. in [place], [place] of the EGD/colonoscopy/biopsy reports from 08/12/23. Gave to Dr. Arellano for review. Once completed will send to the scanning departmentto be scanned into pt's chart. Michela Bahena RN November 06, 2023 12:18 PM documented in this encounterMedina [facility]06-19-[facility]24 Telephone encounter Note * Telephone Encounter - Michela Bahena RN - 11/05/2023 10:56 AM EDT Called and spoke to pt who states she is having severe pain from her belly button down to her hysterectomy scar and across. Believe's the pain is due to adhesions that she has not had removed in 22 years (but previously had done 5 different times). Would like something for the pain and cramping andfor the nausea she is also having. Message sent to Dr. Arellano.Michela Bahena RN November 05, 2023 11:00 AM [facility]-19-[facility] Miscellaneous Notes* Telephone Encounter - Michela Bahena RN - 11/05/2023 10:56 AM EDT Called and spoke to pt who states she is having severe pain from her belly button down to her hysterectomy scar and across. Believe's the pain is due to adhesions that she has not had removed in 22 years (but previously had done 5 different times). Would like something for the pain and cramping andfor the nausea she is also having. Message sent to Dr. Arellano.Michela Bahena RN November 05, 2023 11:00 AM * Telephone Encounter - Sadia Reeves - 11/04/2023 4:54 PM EDT Pt called asking for pain and nausea medicine. She is unable to get on mychart so she is asking fora call. . Sadia Reeves [employer]el Technology Instructor documented in this encounterMedina Hospital06-18-2024 Telephone encounter Note * Telephone Encounter - Sadia Reeves - 11/04/2023 4:54 PM EDT Pt called asking for pain and nausea medicine. She is unable to get on mychart so she is asking fora call. . Sadia Reeves [employer]el Technology Instructor [facility]06-17-[facility] Telephone encounter Note* Telephone Encounter - Michela Bahena RN - 11/03/2023 4:01 PM EDT No. It would have to be from the original prescriber. Salomon Arellano MD The prescription for Zofran did not come from Dr. Arellano and he states the Zofran order will need to come from the original provider as he is not willing to prescribe it. Michela Bahena RN November 03, 2023 4:02 PM [facility]-17-[facility] Miscellaneous Notes* Telephone Encounter - Michela Bahena RN - 11/03/2023 4:01 PM EDT No. It would have to be from the original prescriber. Salomon Arellano MD The prescription for Zofran did not come from Dr. Arellano and he states the Zofran order will need to come from the original provider as he is not willing to prescribe it. Michela Bahena RN November 03, 2023 4:02 PM * Telephone Encounter - Sadia Reeves - 11/03/2023 2:43 PM EDT [facility] called asking for a Zofran refill to be faxed over at [phone]. Sadia Reeves Diesel Technology Instructor documented in this encounterMedina Hospital06-17-2024 Telephone encounter Note * Telephone Encounter - Sadia Reeves - 11/03/2023 2:43 PM EDT [facility] called asking for a Zofran refill to be faxed over at [phone]. Sadia Reeves Diesel Technology Instructor [facility]06-03-2024 NoteHNO ID: [id number] Author: SALOMON ARELLANO MD Service: ? Author Type: Physician Type: Progress Notes Filed: 10/20/2023 13:41 Note Text: Telephone encounter, 20 minutes, patient agrees I have communicated my name and active licensure. The patient's identity and physical location were verified at the time of this visit. Either the patient or their legal patient access representative has been informed of the risks and benefits of -- and alternatives to -- treatment through a remote evaluation and consents to proceed with the evaluation remotely. 57 yo with vomiting, x 2 months. Stopping trulicity helped. Now with left lq abd pain and dysphagia, moves bowels 0-2 times daily, no bleeding, no change in pain with a bm CT negative. EGD done by Mahesh Robert in [place], [place]. Scopes done 08/12/23. Now doing well. Vomiting and dysphagia - will ask Dr. Mahesh Robert M.D. in [place], [place] to send the EGD/colonoscopy/biopsy reports from 08/12/23. Salomon Arellano [facility]06-03-2024 History of Present illness Narrative* Salomon Arellano MD - 10/20/2023 1:31 PM EDT Telephone encounter, 20 minutes, patient agrees I have communicated my name and active licensure. The patient's identity and physical location wereverified at the time of this visit. Either the patient or their legal patient access representative has been informed of the risks and benefits of -- and alternatives to -- treatment through a remote evaluation andconsents to proceed with the evaluation remotely. 57 yo with vomiting, x 2 months. Stopping trulicity helped. Now with left lq abd pain and dysphagia, moves bowels 0-2 times daily, no bleeding, no change in pain with a bm CT negative. EGD done by Mahesh Robert in [place], [place]. Scopes done 08/12/23. Now doing well. Vomiting and dysphagia - will ask Dr. Mahesh Robert M.D. in [place], [place] to send the EGD/colonoscopy/biopsy reports from 08/12/23. Salomon Arellano MD documented in this encounterMedina Hospital05-28-2024 Telephone encounter Note * Telephone Encounter - Michela Bahena RN - 10/14/2023 2:13 PM EDT [facility] called back from Dr. Fields's office and stated the doctor wants to prescribe Minocyclineas an anti-neutrophil for the pt and realizes it causes GI upset and wanted to know Dr. Arellano's thoughts. Explained to [place] Dr. Arellano has not seen/or know the pt and therefore he is not going to advise one way or another. [facility] verbalized understanding. Michela Bahena RN October 14, 2023 2:16 PM [facility]05-28-2024 Miscellaneous Notes* Telephone Encounter - Michela Bahena RN - 10/14/2023 2:13 PM EDT [facility] called back from Dr. Fields's office and stated the doctor wants to prescribe Minocyclineas an anti-neutrophil for the pt and realizes it causes GI upset and wanted to know Dr. Arellano's thoughts. Explained to [place] Dr. Arellano has not seen/or know the pt and therefore he is not going to advise one way or another. [facility] verbalized understanding. Michela Bahena RN October 14, 2023 2:16 PM * Telephone Encounter - Michela Bahena RN - 10/14/2023 11:41 AM EDT Called [facility] from Dr. Taylor Fields's office at [phone] Arellano has never seen this pt. Therefore he is not going to prescribe Minocycline 50mg. Left this nurse's direct call back number if they have questions. Michela Bahena RN October 14, 2023 11:43 AM * Telephone Encounter - Sadia Reeves - 10/14/2023 9:21 AM EDT Paradise from Dr. Fields's office called asking to confirm it is ok to prescribe Minocycline 50mg to Pt. Sadia Reeves [employer] Instructor [facility] Note * Telephone Encounter - Michela Bahena, RN - 10/14/2023 11:41 AM EDT Called Paradise from Dr. Taylor Fields's office at [phone] Arellano has never seen this pt. Therefore he is not going to prescribe Minocycline 50mg. Left this nurse's direct call back number if they have questions. Michela Bahena RN October 14, 2023 11:43 AM [facility]05-28-2024 Telephone encounter Note* Telephone Encounter - Sadia Reeves - 10/14/2023 9:21 AM EDT Paradise from Dr. Fields's office called asking to confirm it is ok to prescribe Minocycline 50mg to Pt. Sadia Reeves [employer] Instructor [facility]03-26-2024 History and physical note Author Mahesh Robert [facility] August 12, 2023 9:06am Note Date/Time August 12, 2023 9:0 6am [facility] Medical Records Department [address] [place] [address] History & Physical Exam 08/12/23 0904 MR#: [id number] Acct: [id number] Name: LEAH JERRY Rep #:[id number] : 1965 57 From: Mahesh Lambert PCP: [facility] St atus:REG [facility] Location: [place] [id number] History and Physical Date of Admission: 08/12/23 Date of Service: 05/07/23 MR#: [id number] Acct: [id number] Name: LEAH JERRY Rep #: [id number] : 1965 Provider: Dr. Mahesh Robert MD Age/Sex: 57/F Location: [facility] Status: Signed Intake Vital Signs 04/23/2311:10 05/07/2309:40 Height 5 ft 2 in 5 ft 2 in Weight: 146 lb BMI 26.6 BP 104/72 Blood Pressure Location Rt brachial Position Sitting Respiration 17 Pulse 87 Pulse Source Monitor Temp 97 F L Temp Source Temporal Pulse Oximetry (%) 98 Oxygen Delivery Method room air Intake Visit Reasons: Gastroesophageal reflux disease (GERD) Chief Complaint: GERD Is patient in pain?: No Allergies Tetracyclines Allergy (Intermediate, Verified 05/07/23 09:43) Rashaminophylline Allergy (Verified 05/06/23 08:59) Swellingamphetamine [From Adderall] Allergy (Verified 05/06/23 08:59) Otherdextroamphetamine [From Adderall] Allergy (Verified 05/06/23 08:59) OtherIodinated Contrast Media [CT] Allergy (Verified 05/06/23 08:59) Swellingiodine Allergy (Verified 05/06/23 08:59) Swellingpovidone-iodine [From Betadine] Allergy (Verified 05/06/23 08:59) Swellingshellfish derived Allergy (Verified 05/06/23 08:59) SwellingSulfa (Sulfonamide Antibiotics) Allergy (Verified 05/06/23 08:59) Swellingbuspirone [From BuSpar] Adverse Reaction (Intermediate, Verified 05/06/23 08:59) Otherallantoin [From Blistex] Adverse Reaction (Verified 05/06/23 08:59) Swellingaloe vera [From Blistex] Adverse Reaction (Verified 05/06/23 08:59) Swellingcamphor [From Blistex] Adverse Reaction (Verified 05/06/23 08:59) Swellingchamomile flower [From Blistex] Adverse Reaction (Verified 05/06/23 08:59) Swellingdimethicone [From Blistex] Adverse Reaction (Verified 05/06/23 08:59) Swellingherbal complex no.57 [From Blistex] Adverse Reaction (Verified 05/06/23 08:59) Swellinghomosalate [From Blistex] Adverse Reaction (Verified 05/06/23 08:59) Swellingmenthol [From Blistex] Adverse Reaction (Verified 05/06/23 08:59) Swellingmeradimate [From Blistex] Adverse Reaction (Verified 05/06/23 08:59) Swellingoctinoxate [From Blistex] Adverse Reaction (Verified 05/06/23 08:59) Swellingoctyl salicylate [From Blistex] Adverse Reaction (Verified 05/06/23 08:59) Swellingoxybenzone [From Blistex] Adverse Reaction (Verified 05/06/23 08:59) Swellingpadimate O [From Blistex] Adverse Reaction (Verified 05/06/23 08:59) Swellingpetrolatum,hydrophilic [From Blistex] Adverse Reaction (Verified 05/06/23 08:59) Swellingphenol [From Blistex] Adverse Reaction (Verified 05/06/23 08:59) Swellingtetracycline Adverse Reaction (Verified 05/06/23 08:59) Rash Medications metformin 500 mg tablet,extended release 24 hr 500 mg PO DAILY Check with primary doctor 07/15/21 [History Confirmed 05/07/23] trazodone 150 mg tablet 150 mg PO QHS anxiety 07/15/21 [History Confirmed 05/07/23] albuterol sulfate 90 mcg/actuation aerosol inhaler 2 puff inhalation Q6H PRN shortness of breath or wheezing #8.5 grams 07/16/21 [Rx Confirmed 05/06/23] fluticasone propionate 45 mcg-salmeterol 21 mcg/actuation HFA inhaler (Advair HFA) 2 puff inhalation BID asthma 10/04/21 [History Confirmed 05/07/23] ibuprofen 500 mg PO Q6H PRN PRN Pain 03/06/22 [History Confirmed 05/07/23] hydroxyzine HCl 25 mg tablet 25 mg PO BID PRN anxiety 11/04/22 [History Confirmed 05/07/23] omeprazole 40 mg capsule,delayed release 40 mg PO BID 11/04/22 [History Confirmed 05/07/23] atorvastatin 40 mg tablet 20 mg PO QHS 11/25/22 [History Confirmed 05/07/23] cetirizine 10 mg tablet 10 mg PO DAILY 03/06/23 [History Confirmed 05/06/23] meloxicam 7.5 mg tablet 7.5 mg PO DAILY 03/06/23 [History Confirmed 05/07/23] tizanidine 4 mg tablet 4 mg PO BID 03/06/23 [History Confirmed 05/07/23] albuterol sulfate 2.5 mg/3 mL (0.083 %) solution for nebulization 2.5 mg inhalation Q4H PRN shortness of breath or wheezing 04/08/23 [History Confirmed 05/07/23] dulaglutide 0.75 mg/0.5 mL subcutaneous pen injector (Trulicity) 1.5 mg subcut MATA 04/08/23 [History Confirmed 05/07/23] fluticasone fur. 200 mcg-umeclid 62.5 mcg-vilant 25 mcg inhalat.powder (Trelegy Ellipta) 1 inh inhalation Q24H 04/08/23 [History Confirmed 05/07/23] lanolin alcohols-mineral oil-w.petrolatum-ceresin topical cream (Minerin Creme topical) 1 applic topical DAILY 04/08/23 [History Confirmed 05/07/23] sertraline 50 mg tablet 50 mg PO DAILY 04/08/23 [History Confirmed 05/07/23] tramadol 50 mg tablet 50 mg PO Q6H 04/08/23 [History Confirmed 05/07/23] PFSH Medical History Anxiety Arthritis Asthma Bilateral carpal tunnel syndrome Bipolar 1 disorder Degenerative disc disease Depression Diabetes Difficulty swallowing Fibromyalgia Gastric reflux GERD (gastroesophageal reflux disease) History of cellulitis History of diverticulitis History of steroid therapy Hx of intestinal obstruction MRSA (methicillin resistant staph aureus) culture positive PTSD (post-traumatic stress disorder) Wears glasses Surgical History (Updated 05/07/23 @ 18:[address] Mahesh Robert MD) History of carpal tunnel surgery History of intestinal surgery History of lumpectomy of right breast History of right breast biopsy (~11/2021) Hx of appendectomy Hx of bilateral oophorectomy Hx of breast surgery Hx of hysterectomy Hx of repair of right rotator cuff Hx of surgical procedure Hx of tooth extraction Family History (Updated 05/07/23 @ 09:40 by Marybeth Suazo) Father Diabetes Heart diseaseMother Diabetes Heart diseaseSister Heart disease Thyroid disorder Social History household members: spouse Smoking Status: Never smoker alcohol intake: never substance use type: does not use HPI HPI HPI: Patient is a 57-year-old female who presents for who presents for further evaluation of gastroesophageal reflux disease and trouble swallowing. She was previously under my care for a history of a right axillary abscess November 2021. When asked if she has had follow-up mammography she confesses that she was out of town when the first appointment phone call and out but she is intending to make this follow-up as she has experienced some lumps on both sides. As far as her present symptoms she describes that food is being stuck behind herbreastbone with increasing frequency over the last 4 months. She notes that this feels similar to how it did 17 years ago when she underwent EGD with esophageal dilation. She states this procedure was done in [facility] but no cause for the narrowing was ever given as far she recalls. Ever since this timeshe has remained on a PPI medication and has remained on a stable dose of this medication through the [facility] clinic. In addition to the above she hasnoticed a dry cough for the last 3 weeks and suspects that it may be related to her reflux. Other associated symptoms include nausea which she experiences daily, vomiting which she will have in response to her swallowing/choking episodes, and bloating which seems to be worse the past 8 months just prior to going to bed. She does confirm that her weight is stable. She also confirms that she is intentionally avoiding spicy foods and props herself up at night when she lies down. She shares that her routine is to eat dinner at 6 PM and does not do any after dinner snacking. She retires to bed at approximately 9:30PM. She confesses that she drinks a significant amount of caffeine and fairly routinely drinks [address] Valle each day. Later in the course of her history taking Mrs. Jerry other offhand mentions that she was diagnosed with H. pylori approximately 23 years ago and required treatment for this infection. When queried about her lower GI health she shares that her last colonoscopy was approximately 17 years ago (just prior to her EGD mentioned above). Discussing her bowel habits, she denies any blood and suggest that she has some constipation with bowel movements only every 3 days but this is normal for her. She does confirm that there is some straining. However, she has minimal toilet time and suggested her bowel movements are passed with only a couple of minutes. Mrs. Jerry shares a family history of stomach cancer in her grandfather, but denies any other GI related illnesses in her parents or siblings. ROS General General: Yes fatigue; No weight change, appetite, colon cancer, breast cancer or weakness HEENT HEENT: Yes difficulty swallowing and swollen glands; No eye injury, eye surgery or hoarseness Endo Endocrine: Yes diabetes mellitus; No thyroid disease, thyroid cancer, Hair loss, heat intolerance or cold intolerance Skin Skin: Yes rash; No changing moles Musc Musculoskeletal: Yes back problems and arthritis; No rheumatoid arthritis, gout or joint pain Cardio Cardiovascular: No murmur, pacemaker, heart disease, atrial fibrillation, high blood pressure, heart attack, heart stent, palpitations, shortness of breat withexertion or chest pain Psych Psychiatric: Yes depression and anxiety; No hearing voices Resp Respiratory: No shortness of breath, No sleep apnea, Yes cough, No COPD, Yes asthma, No emphysema and No wheezing Gastro Gastrointestinal: No abdominal pain, Yes nausea or vomiting, No diarrhea, No constipation, No blood in stool, Yes acid reflux, Yes hemorrhoids, No ulcers, No gallbladder problem and No black,tarry stools Khris Hematologic: No blood thinners, No blood disorders, No bleeding, No anemia and No blood clots Neuro Neurologic: No system reviewed and no additional complaints, except as documented, No as per HPI, No abnormal gait, No abnormal hearing, No abnormal movements, No abnormal speech, No behavioral changes, No burning sensations, No confusion, No convulsions, No disequilibrium, No dizziness, No localized weakness, No frequent falls, No headache(s), No lack of coordination, No loss ofvision, No memory loss, Yes numbness, No other visual disturbances, No radicularpain, No restless legs, No sensory deficit, No syncope, Yes tingling, No tremor(s), No weakness and No other Exam Const General: cooperative and no acute distress Orientation: alert, awake and oriented x3 Resp Effort & Inspection: normal respiratory effort GI Other: Multiple abdominal striae present, well-healed periumbilical scar. There is minimal abdominal distention and some periumbilical tenderness but no guarding. At 1 point it does feel as though there is reduction of a epigastric hernia approximately 4 cm cephalad to her umbilicus but I cannot be sure I feel a fascial defect. Assessment and Plan Assessment and Plan (1) Gastroesophageal reflux disease: Plan: This is a 57-year-old female who presents for refractory symptoms of gastroesophageal reflux disease despite faithful use of proton pump inhibitor therapy. This has been a chronic therapy for Mrs. Jerry and she is experiencing now progressive symptoms of reflux, food sticking, nausea, vomiting, and bloating. Taken together this is suggestive of probable hiatal hernia with possible additional pathology. She describes some tenderness on exam in the periumbilical and epigastric region but I do not feel a clear hernia. I believeany abdominal wall pathology is separate from her main complaints today. Therefore, I have recommended that we pursue a focused workup of her main complaints through an upper GI swallow with small bowel follow- through as well as a diagnostic EGD. She does report a history of esophageal stricture so she will be consented for possible dilation at the time of her EGD and I will also plan to proceed to H. pylori biopsy as she has a history of this infection as well. In the meantime we will obtain the fluoroscopic exam to evaluate for any primary esophageal narrowing or evidence of the above. (2) Status post dilation of esophageal narrowing: Status: Acute Orders: Orders Upper GI w/BA Swallow Today K21.9 - Gastro-esophageal reflux disease without esophagitis I have examined the patient the following changes are noted: Patient reports that she did go to the emergency department earlier this month and was diagnosedwith enteritis. She states that she has some persistent abdominal discomfort but tolerated her prep well. She confirms that her output is now clear. She has also been trying to watch her caffeine intake and this is translated to someimproved control of her upper GI symptoms. She did undergo upper GI with bariumswallow that showed no evidence of reflux but a distal esophageal diverticulum. Procedure and post procedure expectations were reviewed and patient has no further questions. Therefore we will proceed with diagnostic upper and lower endoscopy as previously discussed in greater detail above. 08/12/23905 <Electronically signed by Mahesh Robert MD> Cosigner Signature (if applicable): CC: Dr. Mahesh Robert MD; [facility]~ Signed [facility] Work Phone: [phone]) 558-423403-26-2024 Procedure [facility] 08-12-2023 Procedure [facility]03-26-2024 Procedure note [facility]03-26-2024 Procedure [facility] 04-23-2023 History and physical note Author Jonny Marino [facility] April 23, 2023 12:17pm Note Date/Time April 23, 2023 1 1:13am [facility] Medical Records Department [address] [place] [id number] History & Physical Exam 04/23/23 1112 MR#: [id number] Acct: [id number] Name: LEAH JERRY Rep #:[id number] : 1965 57 From: Jonny Marino MD PCP: Dr. Carolyn West Status:REG [place] C Location: [place] [address] HPI - General HPI Narrative LEAH JERRY, is a 57 F who presents for bilateral endoscopic carpal tunnel release. no changes to h and p. ok to proceed, rab and post op pain regime discussed. marked both wrists. pt had a cellulitis in face 2 weeks ago but resolved now, no symptoms. does not appear to have any ongoing infection. MR#: [id number] Acct: [id number] Name: LEAH JERRY Rep #: [id number] : 1965 Provider: Dr. Jonny Marino MD Age/Sex: 57/F Location: [facility] [place] Status: Signed Intake Vital Signs 02/29/2312:39 Height 5 ft 2 in Weight: 141 lb BMI 25.7 BP 154/86 H Respiration 16 Pulse 103 H Temp 97.7 F L Temp Source Temporal Pulse Oximetry (%) 100 Intake Visit Reasons: BL HANDS Allergies aminophylline Allergy (Verified 03/11/23 09:55) Swellingamphetamine [From Adderall] Allergy (Verified 03/11/23 09:55) Otherdextroamphetamine [From Adderall] Allergy (Verified 03/11/23 09:55) OtherIodinated Contrast Media [CT] Allergy (Verified 03/11/23 09:55) Swellingiodine Allergy (Verified 03/11/23 09:55) Swellingpovidone-iodine [From Betadine] Allergy (Verified 03/11/23 09:55) Swellingshellfish derived Allergy (Verified 03/11/23 09:55) SwellingSulfa (Sulfonamide Antibiotics) Allergy (Verified 03/11/23 09:55) Swellingbuspirone [From BuSpar] Adverse Reaction (Intermediate, Verified 03/11/23 09:55) Otherallantoin [From Blistex] Adverse Reaction (Verified 03/11/23 09:55) Swellingaloe vera [From Blistex] Adverse Reaction (Verified 03/11/23 09:55) Swellingcamphor [From Blistex] Adverse Reaction (Verified 03/11/23 09:55) Swellingchamomile flower [From Blistex] Adverse Reaction (Verified 03/11/23 09:55) Swellingdimethicone [From Blistex] Adverse Reaction (Verified 03/11/23 09:55) Swellingherbal complex no.57 [From Blistex] Adverse Reaction (Verified 03/11/23 09:55) Swellinghomosalate [From Blistex] Adverse Reaction (Verified 03/11/23 09:55) Swellingmenthol [From Blistex] Adverse Reaction (Verified 03/11/23 09:55) Swellingmeradimate [From Blistex] Adverse Reaction (Verified 03/11/23 09:55) Swellingoctinoxate [From Blistex] Adverse Reaction (Verified 03/11/23 09:55) Swellingoctyl salicylate [From Blistex] Adverse Reaction (Verified 03/11/23 09:55) Swellingoxybenzone [From Blistex] Adverse Reaction (Verified 03/11/23 09:55) Swellingpadimate O [From Blistex] Adverse Reaction (Verified 03/11/23 09:55) Swellingpetrolatum,hydrophilic [From Blistex] Adverse Reaction (Verified 03/11/23 09:55) Swellingphenol [From Blistex] Adverse Reaction (Verified 03/11/23 09:55) Swellingtetracycline Adverse Reaction (Verified 03/11/23 09:55) Rash Medications metformin 500 mg tablet,extended release 24 hr 500 mg PO BID Check with primary doctor 07/15/21 [History Confirmed 03/11/23] trazodone 150 mg tablet 225 mg PO QHS anxiety 07/15/21 [History Confirmed 03/11/23] albuterol sulfate 90 mcg/actuation aerosol inhaler 2 puff inhalation Q6H PRN shortness of breath or wheezing #8.5 grams 07/16/21 [Rx Confirmed 03/11/23] fluticasone propionate 45 mcg-salmeterol 21 mcg/actuation HFA inhaler (Advair HFA) 2 puff inhalation BID asthma 10/04/21 [History Confirmed 03/11/23] ibuprofen 500 mg PO Q6H PRN PRN Pain 03/06/22 [History Confirmed 03/11/23] benzonatate 100 mg capsule 200 mg (2 x 100 mg) PO TID #90 caps 03/07/22 [Rx Confirmed 03/11/23] permethrin 5 % topical cream 1 applic topical Q14D 2 doses #60 grams 07/15/22 [Rx Confirmed 03/11/23] hydroxyzine HCl 25 mg tablet 25 mg PO BID PRN anxiety 11/04/22 [History Confirmed 03/11/23] omeprazole 40 mg capsule,delayed release 40 mg PO BID 11/04/22 [History Confirmed 03/11/23] atorvastatin 40 mg tablet 40 mg PO QHS 11/25/22 [History Confirmed 03/11/23] cetirizine 10 mg tablet mg PO 03/06/23 [History Confirmed 03/11/23] meloxicam 7.5 mg tablet 7.5 mg PO DAILY 03/06/23 [History Confirmed 03/11/23] tizanidine 4 mg tablet 4 mg PO 03/06/23 [History Confirmed 03/11/23] [facility] Medical History (Updated 03/06/23 @ 09:08 by Jonny Marino MD) Anxiety Asthma Bilateral carpal tunnel syndrome Bipolar 1 disorder Degenerative disc disease Depression Diabetes Fibromyalgia GERD (gastroesophageal reflux disease) History of diverticulitis Hx of intestinal obstruction MRSA (methicillin resistant staph aureus) culture positive PTSD (post-traumatic stress disorder) Surgical History History of intestinal surgery History of lumpectomy of right breast History of right breast biopsy (~11/2021) Hx of appendectomy Hx of bilateral oophorectomy Hx of hysterectomy Hx of repair of right rotator cuff Family History Father DiabetesMother Diabetes Social History household members: spouse Smoking Status: Never smoker alcohol intake: never substance use type: does not use HPI BL HANDS Details: Parts of this documentation were recorded by a scribe, this documentation accurately reflects the service provided and the decisions made by me, Dr. Marianne MD 03/11/23 0810. LEAH JERRY is a 57 year old F here today for FU bilat CTS. Wants to proceedwith surgery. Had a trial of bracing and nsaids. Left side worse but happening on both sides, thumb and middle finger. Ortho Exam General General: Yes no acute distress Neurologic: Yes alert and Yes oriented x3 Psychologic: Yes reasonable and appropriate Right Wrist/Hand Skin/Wound: Yes CDI, No Swelling, No Ecchymosis, No nail intact and Yes capillary refill normal Right Wrist: Yes ROM-Extension 0-60, ROM-Flexion 0-80, ROM-Pronation 0-80, ROM-Supination 0-90, Tinel's and Phalen's; No CMC Grind, tender to palpate 1st dorsal compartment, tender to palpate carpometacarpal joint, Thenar Atrophy or Hypothenar Atrophy Motor: EPL: 4, FDP-2: 4, 1st Dorsal Interosseous: 4 and APB: 4 Sensation: Radial: I, Ulnar: I and Median: D Left Wrist/Hand Skin/Wound: Yes CDI, No Swelling, No Ecchymosis, Yes nail intact, Yes capillary refill normal and No erythema Left Wrist: Yes ROM-Extension 0-60, Yes ROM-Flexion 0-80, Yes ROM-Pronation 0- 80, Yes ROM-Supination 0-90, Yes Tinel's and Yes Phalen's; No tender to palpate 1st dorsal compartment, No Thenar Atrophy and No Hypothenar Atrophy Motor: EPL: 4, FDP-2: 4, 1st Dorsal Interosseous: 4 and APB: 4 Sensation: Radial: I, Ulnar: I and Median: D WRIST: neg tinels both elbows. Supplemental Info NCS and/or EMG Patient Report Ordering Doctor: Taylor Fields NP DATE OF SERVICE: 02/19/23 Leah presents for electrodiagnostic testing of the upper limbs. She reports numbness and tingling in the hands for the past 4 months. She has history of diabetes. Electrodiagnostic findings: Median motor nerve demonstrates normal distal latency, amplitude and conduction velocity bilaterally. Normal ulnar motor response bilaterally. Normal median and ulnar F waves. Prolonged median sensorylatency at the wrist bilaterally. Normal ulnar and radial sensory responses. Normal median ulnar F waves. Prolonged median sensory latency at the wrist bilaterally. Normal ulnar and radial sensory responses. Needle EMG testing wasperformed in the upper limbs. All muscles tested showed no evidence of denervation with normal motor unit action potentials. Electrodiagnostic impression: This is an abnormal study in the upper limbs. 1. Electrodiagnostic findings suggestive of bilateral median mononeuropathy. This is consistent with a mild bilateral carpal tunnel syndrome. 2. No electrodiagnostic evidence is noted for cervical radiculopathy. Coding Level of Care Code Off vis,est,level 4 Diagnoses Bilateral carpal tunnel syndrome G56.03 Assessment and Plan Assessment and Plan (1) Bilateral carpal tunnel syndrome: Status: Acute Plan: 57-year-old female bilateral carpal tunnel syndrome. They concur rest ice anti-inflammatories activity modifications cortisone injections as well as open or endoscopic carpal tunnel release. The patient desires to proceed with surgery in the form of bilateral endoscopic carpal tunnel release. We discussed pros and cons risks and benefits of that as well as recovery 2 weeks to heal the incision 6 weeks before returning to heavy lifting and gripping. Does have glucose control in medical history and some mastitis / abscesses so would increase infection and other risks. Plan for pre op clearance as well. Pros and cons risks and benefits were discussed with the patient including but not limited to infection, pain, stiffness, bleeding, damage to surrounding structures, neurovascular injury, recurrence or retear, failure or wear of hardware or fixation, instability, fracture, deep vein thrombosis and pulmonary embolism, anesthetic risks, , patient dissatisfaction, need for further surgery and other risks. Patient understood and wished to proceed with surgery,and signed the informed consent documentation. [facility] Medical History (Updated 04/08/23 @ 14:58 by Karen Oneal) Anxiety Arthritis Asthma Bilateral carpal tunnel syndrome Bipolar 1 disorder Degenerative disc disease Depression Diabetes Difficulty swallowing Fibromyalgia Gastric reflux GERD (gastroesophageal reflux disease) History of cellulitis History of diverticulitis History of steroid therapy Hx of intestinal obstruction MRSA (methicillin resistant staph aureus) culture positive PTSD (post-traumatic stress disorder) Wears glasses Home Medications metformin 500 mg tablet,extended release 24 hr 500 mg PO DAILY Check with primary doctor 07/15/21 [History Last Taken 03/06/22 08:00] trazodone 150 mg tablet 150 mg PO QHS anxiety 07/15/21 [History Last Taken 03/05/22 21:00] albuterol sulfate 90 mcg/actuation aerosol inhaler 2 puff inhalation Q6H PRN shortness of breath or wheezing #8.5 grams 07/16/21 [Rx Last Taken 04/23/23] fluticasone propionate 45 mcg-salmeterol 21 mcg/actuation HFA inhaler (Advair HFA) 2 puff inhalation BID asthma 10/04/21 [History Last Taken 04/23/23] ibuprofen 500 mg PO Q6H PRN PRN Pain 03/06/22 [History Last Taken 03/06/22 08:30] hydroxyzine HCl 25 mg tablet 25 mg PO BID PRN anxiety 11/04/22 [History Last Taken Unknown] omeprazole 40 mg capsule,delayed release 40 mg PO BID 11/04/22 [History Last Taken 04/23/23] atorvastatin 40 mg tablet 20 mg PO QHS 11/25/22 [History Last Taken Unknown] cetirizine 10 mg tablet 10 mg PO DAILY 03/06/23 [History Last Taken Unknown] meloxicam 7.5 mg tablet 7.5 mg PO DAILY 03/06/23 [History Last Taken Unknown] tizanidine 4 mg tablet 4 mg PO BID 03/06/23 [History Last Taken Unknown] albuterol sulfate 2.5 mg/3 mL (0.083 %) solution for nebulization 2.5 mg inhalation Q4H PRN shortness of breath or wheezing 04/08/23 [History Last Taken Unknown] clindamycin HCl 300 mg capsule (Cleocin HCl) 300 mg PO BID 04/08/23 [History Last Taken Unknown] dulaglutide 0.75 mg/0.5 mL subcutaneous pen injector (TrElpas) 1.5 mg subcut MATA 04/08/23 [History Last Taken Unknown] fluticasone fur. 200 mcg-umeclid 62.5 mcg-vilant 25 mcg inhalat.powder (Trelegy Ellipta) 1 inh inhalation Q24H 04/08/23 [History Last Taken 04/23/23] lanolin alcohols-mineral oil-w.petrolatum-ceresin topical cream (Minerin Creme topical) 1 applic topical DAILY 04/08/23 [History Last Taken Unknown] prednisone 20 mg tablet 20 mg PO BID 04/08/23 [History Last Taken Unknown] sertraline 50 mg tablet 50 mg PO DAILY 04/08/23 [History Last Taken Unknown] tramadol 50 mg tablet 50 mg PO Q6H 04/08/23 [History Last Taken Unknown] Allergy/AdvReac Type Severity Reaction Status Date / Time aminophylline Allergy Swelling Verified 04/23/23 11:04 amphetamine [From Adderall] Allergy Other Verified 04/23/23 11:04 dextroamphetamine Allergy Other Verified 04/23/23 11:04 [From Adderall] Iodinated Contrast Media [CT] Allergy Swelling Verified 04/23/23 11:04 iodine Allergy Swelling Verified 04/23/23 11:04 povidone-iodine Allergy Swelling Verified 04/23/23 11:04 [From Betadine] shellfish derived Allergy Swelling Verified 04/23/23 11:04 Sulfa (Sulfonamide Allergy Swelling Verified 04/23/23 11:04 Antibiotics) buspirone [From BuSpar] AdvReac Intermediate Other Verified 04/23/23 11:04 allantoin [From Blistex] AdvReac Swelling Verified 04/23/23 11:04 aloe vera [From Blistex] AdvReac Swelling Verified 04/23/23 11:04 camphor [From Blistex] AdvReac Swelling Verified 04/23/23 11:04 chamomile flower AdvReac Swelling Verified 04/23/23 11:04 [From Blistex] dimethicone [From Blistex] AdvReac Swelling Verified 04/23/23 11:04 herbal complex no.57 AdvReac Swelling Verified 04/23/23 11:04 [From Blistex] homosalate [From Blistex] AdvReac Swelling Verified 04/23/23 11:04 menthol [From Blistex] AdvReac Swelling Verified 04/23/23 11:04 meradimate [From Blistex] AdvReac Swelling Verified 04/23/23 11:04 octinoxate [From Blistex] AdvReac Swelling Verified 04/23/23 11:04 octyl salicylate AdvReac Swelling Verified 04/23/23 11:04 [From Blistex] oxybenzone [From Blistex] AdvReac Swelling Verified 04/23/23 11:04 padimate O [From Blistex] AdvReac Swelling Verified 04/23/23 11:04 petrolatum,hydrophilic AdvReac Swelling Verified 04/23/23 11:04 [From Blistex] phenol [From Blistex] AdvReac Swelling Verified 04/23/23 11:04 tetracycline AdvReac Rash Verified 04/23/23 11:04 Family History Father Diabetes Mother Diabetes Surgical History (Updated 04/08/23 @ 14:58 by Karen Oneal) History of intestinal surgery History of lumpectomy of right breast History of right breast biopsy (~11/2021) Hx of appendectomy Hx of bilateral oophorectomy Hx of breast surgery Hx of hysterectomy Hx of repair of right rotator cuff Hx of surgical procedure Hx of tooth extraction Social History household members: spouse Smoking Status: Never smoker alcohol intake: never substance use type: does not use Vital Signs Vital Signs Vital Signs: Weight Weight: 141 lb 04/23/23 1217 <Electronically signed by Jonny Marino MD> Cosigner Signature (if applicable): CC: Dr. Jonny Marino MD; Dr. Carolyn West~ Signed [facility] Work Phone: [phone]) 868-440312-06-2023 Procedure [facility] 02-28-2023 Discharge summary Author Aniceto Tillman [facility] February 28, 2023 2:47pm Note Date/Time February 28, 2023 1 :16pm [facility] Medical Records Department [address] [place] [id number] Emergency Department Summary 02/28/23 MR#: [id number] Acct: [id number] Name: LEAH JERRY Rep #:[id number] : 1965 57 From: Aniceto Tillman DO PCP: Dr. Carolyn West Status:PRE ER Location: ED HPI History of Present Illness Chief Complaint: Back Narrative Narrative: 57-year-old female with back pain. She does have some chronic back pain. She states she rolled out of bed today and heard a pop. She states it radiates fromher back into her hip. She think she might of dislocated and relocated her lefthip. She has been able to walk on it today. No numbness or tingling. No loss of bladder bowel control. No saddle anesthesia. Patient denies any other direct trauma. Does take Tylenol, Mobic, Percogesic at home and she states is not helping. [facility] Medical History Anxiety Asthma Bipolar 1 disorder Degenerative disc disease Depression Diabetes Fibromyalgia GERD (gastroesophageal reflux disease) History of diverticulitis Hx of intestinal obstruction MRSA (methicillin resistant staph aureus) culture positive PTSD (post-traumatic stress disorder) Home Medications metformin 500 mg tablet,extended release 24 hr 500 mg PO BID Check with primary doctor 07/15/21 [History Last Taken 03/06/22 08:00] trazodone 150 mg tablet 225 mg PO QHS anxiety 07/15/21 [History Last Taken 03/05/22 21:00] albuterol sulfate 90 mcg/actuation aerosol inhaler 2 puff inhalation Q6H PRN shortness of breath or wheezing #8.5 grams 07/16/21 [Rx Last Taken 03/06/22 08:00] fluticasone propionate 45 mcg-salmeterol 21 mcg/actuation HFA inhaler (Advair HFA) 2 puff inhalation BID asthma 10/04/21 [History Last Taken 03/06/22 07:30] Benadryl Allergy 25 mg PO BID Check with primary doctor 03/06/22 [History Last Taken 03/06/22 12:00] atorvastatin 40 mg PO DAILY cholesterol 03/06/22 [History Last Taken 03/06/22 08:00] ibuprofen 500 mg PO Q6H PRN PRN Pain 03/06/22 [History Last Taken 03/06/22 08:30] benzonatate 100 mg capsule 200 mg (2 x 100 mg) PO TID #90 caps 03/07/22 [Rx Last Taken Unknown] cyclobenzaprine 10 mg tablet 10 mg PO TID PRN Muscle Spasm #20 TABLETS 06/14/22 [Rx Last Taken Unknown] permethrin 5 % topical cream 1 applic topical Q14D 2 doses #60 grams 07/15/22 [Rx Last Taken Unknown] hydroxyzine HCl 25 mg tablet 25 mg PO BID PRN anxiety 11/04/22 [History Last Taken Unknown] omeprazole 40 mg capsule,delayed release 40 mg PO BID 11/04/22 [History Last Taken Unknown] atorvastatin 40 mg tablet 40 mg PO QHS 11/25/22 [History Last Taken Unknown] prednisone 20 mg tablet 40 mg (2 x 20 mg) PO DAILY 5 days #10 TABLETS 11/25/22 [Rx Last Taken Unknown] clindamycin HCl 150 mg capsule 450 mg (3 x 150 mg) PO TID 10 days #90 caps 01/01/23 [Rx Last Taken Unknown] hydrocodone-acetaminophen 5-325mg 5mg-325mg 1 tab PO Q4H PRN PRN Pain 3 days #10TABLETS 01/01/23 [Rx Last Taken Unknown] Allergy/AdvReac Type Severity Reaction Status Date / Time aminophylline Allergy Swelling Verified 02/28/23 12:40 amphetamine [From Adderall] Allergy Other Verified 02/28/23 12:40 dextroamphetamine Allergy Other Verified 02/28/23 12:40 [From Adderall] Iodinated Contrast Media [CT] Allergy Swelling Verified 02/28/23 12:40 iodine Allergy Swelling Verified 02/28/23 12:40 povidone-iodine Allergy Swelling Verified 02/28/23 12:40 [From Betadine] shellfish derived Allergy Swelling Verified 02/28/23 12:40 Sulfa (Sulfonamide Allergy Swelling Verified 02/28/23 12:40 Antibiotics) buspirone [From BuSpar] AdvReac Intermediate Other Verified 02/28/23 12:40 allantoin [From Blistex] AdvReac Swelling Verified 02/28/23 12:40 aloe vera [From Blistex] AdvReac Swelling Verified 02/28/23 12:40 camphor [From Blistex] AdvReac Swelling Verified 02/28/23 12:40 chamomile flower AdvReac Swelling Verified 02/28/23 12:40 [From Blistex] dimethicone [From Blistex] AdvReac Swelling Verified 02/28/23 12:40 herbal complex no.57 AdvReac Swelling Verified 02/28/23 12:40 [From Blistex] homosalate [From Blistex] AdvReac Swelling Verified 02/28/23 12:40 menthol [From Blistex] AdvReac Swelling Verified 02/28/23 12:40 meradimate [From Blistex] AdvReac Swelling Verified 02/28/23 12:40 octinoxate [From Blistex] AdvReac Swelling Verified 02/28/23 12:40 octyl salicylate AdvReac Swelling Verified 02/28/23 12:40 [From Blistex] oxybenzone [From Blistex] AdvReac Swelling Verified 02/28/23 12:40 padimate O [From Blistex] AdvReac Swelling Verified 02/28/23 12:40 petrolatum,hydrophilic AdvReac Swelling Verified 02/28/23 12:40 [From Blistex] phenol [From Blistex] AdvReac Swelling Verified 02/28/23 12:40 tetracycline AdvReac Rash Verified 02/28/23 12:40 Family History Father Diabetes Mother Diabetes Surgical History History of intestinal surgery History of lumpectomy of right breast History of right breast biopsy (~11/2021) Hx of appendectomy Hx of bilateral oophorectomy Hx of hysterectomy Hx of repair of right rotator cuff Social History household members: spouse Smoking Status: Never smoker alcohol intake: never substance use type: does not use ROS ROS ED Constitutional Constitutional ED: Denies chills, fever(s) or sweats Eyes Eyes: Denies blurry vision or change in vision ENT ENT ED: Denies ear pain or sore throat Cardiovascular Cardiovascular: Denies chest pain, palpitations or racing heartbeat Respiratory/Chest Respiratory/Chest: Denies cough, dyspnea or sputum Gastrointestinal Gastrointestinal: Denies abdominal pain, constipation, diarrhea, nausea or vomiting Genitourinary Genitourinary ED: Denies dysuria, hematuria or urinary frequency Musculoskeletal Musculoskeletal: Reports back pain and other Details: Left hip pain ; Denies arthralgias, myalgias or neck pain Integumentary Denies abscess, Abrasions or rash Neurologic Neurologic: Denies headache(s), paresthesias or weakness Psychiatric Psychiatric: Denies anxiety, depression, suicidal ideation or suicidal thoughts Endocrine Endocrinology: Denies polydipsia or polyuria EXAM Physical Exam Const Vital Signs: 02/28/23 12:39 Temperature 97.7 F L Temperature Source Temporal Pulse Rate 103 H Respiratory Rate 16 Blood Pressure 154/86 H Blood Pressure Mean 108 Pulse Ox 100 Oxygen Delivery Method Room Air Positive well nourished General Appearance ED: NAD; Negative for pallor HEENT Reports moist mucous membranes Eyes PERRL and EOMs intact bilaterally Resp normal respiratory effort Effort and Inspection: Negative for pain with movement Cardio regular rate and regular rhythm GI normal to inspection, nondistended, normoactive bowel sounds Back/Spine Back/Spine Narrative: This palpation lower lumbar spine bilaterally. No midline deformity or step-off. Extremity Extremity Narrative: Left hip mildly tender to palpation. Full range of motion. Negative logroll. Patient ambulatory to the bathroom and back. Neuro oriented x3 Sensorium / Orientation: alert Motor Exam: strength 5/5 throughout Skin General Skin Exam: Negative for jaundice or pallor MDM MDM MDM Narrative Medical decision making narrative: Patient presenting with right hip pain and back pain. She is concerned she might of worsened her back pain by rolling out of bed today. She also thinks hemay have dislocated her right hip earlier but its apparently in place and was able to ambulate to the bathroom. Negative logroll. Patient is tender to palpation in lower back. We will obtain a lumbar spine x-ray as well as right hip. Patient medicated with Norflex and Toradol. I will obtain a urinalysis toassess for UTI. Differential includes UTI, pyelonephritis, lumbar strain, hip strain. Negative for infection. X-ray of the lumbar spine shows no acute fracture. There is a chronic appearing compression fracture at T12. Hip x-ray on my interpretation shows no acute fracture or subluxation. Patient counseled on findings. I will have her follow-up with pain management. She stable for discharge. She has pain medication at home. Impression: 1. Lumbar strain 2. Hip strain Lab Data Labs: Laboratory Results - last 24 hr 02/28/23 13:05 Urine Color Yellow Urine Clarity Sl. Cloudy Urine pH 5.0 Ur Specific Cook 1.020 Urine Protein 15 H Urine Glucose (UA) 50 H Urine Ketones Negative Urine Occult Blood Negative Urine Nitrite Negative Urine Bilirubin Negative Urine Urobilinogen Normal Ur Leukocyte Esterase Negative Urine RBC 0 SEEN Urine WBC 0 SEEN Ur Squamous Epith Cells 0-5 SEEN Urine Bacteria 0 SEEN Urine Mucus 0 SEEN Radiography Diagnostic Testing: Clinical Impression(s) from Imaging Studies Hip/Pelvis X-Ray 02/28/23 13:40 IMPRESSION: No acute displaced fracture or dislocation identified. Electronically Signed: Leela Villarreal MD at 14:04 EDT , Lumbar Spine X-Ray 02/28/23 13:40 IMPRESSION: No acute fracture or dislocation identified in the lumbar spine. Unchanged height of chronic mild T12 compression fracture. Mild spondylosis of L5/S1. Electronically Signed: Leela Villarreal MD at 14:04 EDT , Discharge Plan Triage Chief Complaint: Back ED Provider: Aniceto Tillman Dx/Rx/DC Orders Instructions: ED Back Spasm, No Trauma, ED Hip Strain Prescriptions: No Action hydroxyzine HCl 25 mg tablet 25 mg PO BID PRN Patient Comments: TAKE ONE TABLET BY MOUTH 2-3 TIMES DAILY NEEDED FOR ANXIETY omeprazole 40 mg capsule,delayed release(DR/EC) 40 mg PO BID Patient Comments: TAKE 1 CAPSULE BY MOUTH TWICE DAILY trazodone 150 mg tablet 225 mg PO QHS Patient Comments: take 1 and 1/2 tablet DAILY AT BEDTIME metformin 500 mg tablet extended release 24 hr 500 mg PO BID albuterol sulfate 90 mcg/actuation HFA aerosol inhaler 2 puff inhalation Q6H PRN (Reason: shortness of breath or wheezing) Qty: 8.5 0RF fluticasone propion-salmeterol [Advair HFA] 45-21 mcg/actuation HFA aerosol inhaler 2 puff INHALATION BID atorvastatin 40 mg PO DAILY Benadryl Allergy 25 mg PO BID Rx Instructions: allergies ibuprofen 500 mg PO Q6H PRN PRN (Reason: Pain) benzonatate 100 mg Capsule 200 mg PO TID Qty: 90 0RF cyclobenzaprine [cyclobenzaprine] 10 mg tablet 10 mg PO TID PRN (Reason: Muscle Spasm) Qty: 20 0RF permethrin 5 % cream 1 applic topical Q14D Qty: 60 0RF Rx Instructions: apply second treatment 14 days after first treatment atorvastatin 40 mg tablet 40 mg PO QHS Patient Comments: TAKE ONE TABLET BY MOUTH AT BEDTIME prednisone 20 mg tablet 40 mg PO DAILY 5 Days Qty: 10 0RF hydrocodone-acetaminophen 5-325 mg tablet 1 tab PO Q4H PRN PRN (Reason: Pain) 3 Days Qty: 10 0RF clindamycin HCl 150 mg capsule 450 mg PO TID 10 Days Qty: 90 0RF Primary Care Provider: Carolyn West Referrals: Carolyn West [Primary Care Provider] - Disposition Disposition: Home, Self Care What to do if you have Problems For any increased pain, shortness of breath, bleeding, nausea or vomiting, chestpain, or any unexpected problems, contact your Primary Care Provider. Call [facility] ([phone]) or report to the closest Emergency Room. Call 911 if necessary. 02/28/23 9547 <Electronically signed by Aniceto Tillman DO> Cosigner Signature (if applicable): CC: Dr. Carolyn West ~ Signed [facility] Work Phone: [phone]) 218-899608-16-2023 Discharge summary Author Aniceto Tillman [facility] January 01, 2023 1:25pm Note Date/Time January 01, 2023 1: 25pm [facility] Medical Records Department [address] [place] [id number] Emergency Department Summary 01/01/23 MR#: [id number] Acct: [id number] Name: LEAH JERRY Rep #:[id number] : 1965 57 From: Aniceto Tillman DO PCP: Dr. Carolyn West Status:REG ER Location: ED HPI History of Present Illness Chief Complaint: Abscess Narrative Narrative: 57-year-old female presenting with pain in the scalp in the occiput. She statesshe had redness here. She admits to a history of MRSA and abscess. She has hadcellulitis in the scalp before as well. Patient denies any trauma but states she feels out of sorts now that her pain is increasing. Patient is treated for abscess apparently by the urgent care with Keflex which would not cover for MRSA. Denies fevers or chills. No visual complaints. [facility] Medical History (Updated 01/01/23 @ 13:[address] Aniceto Tillman, ) Anxiety Asthma Bipolar 1 disorder Degenerative disc disease Depression Diabetes Fibromyalgia GERD (gastroesophageal reflux disease) History of diverticulitis Hx of intestinal obstruction MRSA (methicillin resistant staph aureus) culture positive PTSD (post-traumatic stress disorder) Home Medications metformin 500 mg tablet,extended release 24 hr 500 mg PO BID Check with primary doctor 07/15/21 [History Last Taken 03/06/22 08:00] trazodone 150 mg tablet 225 mg PO QHS anxiety 07/15/21 [History Last Taken 03/05/22 21:00] albuterol sulfate 90 mcg/actuation aerosol inhaler 2 puff inhalation Q6H PRN shortness of breath or wheezing #8.5 grams 07/16/21 [Rx Last Taken 03/06/22 08:00] fluticasone propionate 45 mcg-salmeterol 21 mcg/actuation HFA inhaler (Advair HFA) 2 puff inhalation BID asthma 10/04/21 [History Last Taken 03/06/22 07:30] Benadryl Allergy 25 mg PO BID Check with primary doctor 03/06/22 [History Last Taken 03/06/22 12:00] atorvastatin 40 mg PO DAILY cholesterol 03/06/22 [History Last Taken 03/06/22 08:00] ibuprofen 500 mg PO Q6H PRN PRN Pain 03/06/22 [History Last Taken 03/06/22 08:30] benzonatate 100 mg capsule 200 mg (2 x 100 mg) PO TID #90 caps 03/07/22 [Rx Last Taken Unknown] cyclobenzaprine 10 mg tablet 10 mg PO TID PRN Muscle Spasm #20 TABLETS 06/14/22 [Rx Last Taken Unknown] permethrin 5 % topical cream 1 applic topical Q14D 2 doses #60 grams 07/15/22 [Rx Last Taken Unknown] hydroxyzine HCl 25 mg tablet 25 mg PO BID PRN anxiety 11/04/22 [History Last Taken Unknown] omeprazole 40 mg capsule,delayed release 40 mg PO BID 11/04/22 [History Last Taken Unknown] atorvastatin 40 mg tablet 40 mg PO QHS 11/25/22 [History Last Taken Unknown] prednisone 20 mg tablet 40 mg (2 x 20 mg) PO DAILY 5 days #10 TABLETS 11/25/22 [Rx Last Taken Unknown] clindamycin HCl 150 mg capsule 450 mg (3 x 150 mg) PO TID 10 days #90 caps 01/01/23 [Rx Last Taken Unknown] hydrocodone-acetaminophen 5-325mg 5mg-325mg 1 tab PO Q4H PRN PRN Pain 3 days #10TABLETS 01/01/23 [Rx Last Taken Unknown] Allergy/AdvReac Type Severity Reaction Status Date / Time aminophylline Allergy Swelling Verified 11/25/22 13:54 amphetamine [From Adderall] Allergy Other Verified 11/25/22 13:54 dextroamphetamine Allergy Other Verified 11/25/22 13:54 [From Adderall] Iodinated Contrast Media [CT] Allergy Swelling Verified 11/25/22 13:54 iodine Allergy Swelling Verified 11/25/22 13:54 povidone-iodine Allergy Swelling Verified 11/25/22 13:54 [From Betadine] shellfish derived Allergy Swelling Verified 11/25/22 13:54 Sulfa (Sulfonamide Allergy Swelling Verified 11/25/22 13:54 Antibiotics) allantoin [From Blistex] AdvReac Swelling Verified 01/01/23 11:26 aloe vera [From Blistex] AdvReac Swelling Verified 01/01/23 11:26 camphor [From Blistex] AdvReac Swelling Verified 01/01/23 11:26 chamomile flower AdvReac Swelling Verified 01/01/23 11:26 [From Blistex] dimethicone [From Blistex] AdvReac Swelling Verified 01/01/23 11:26 herbal complex no.57 AdvReac Swelling Verified 01/01/23 11:26 [From Blistex] homosalate [From Blistex] AdvReac Swelling Verified 01/01/23 11:26 menthol [From Blistex] AdvReac Swelling Verified 01/01/23 11:26 meradimate [From Blistex] AdvReac Swelling Verified 01/01/23 11:26 octinoxate [From Blistex] AdvReac Swelling Verified 01/01/23 11:26 octyl salicylate AdvReac Swelling Verified 01/01/23 11:26 [From Blistex] oxybenzone [From Blistex] AdvReac Swelling Verified 01/01/23 11:26 padimate O [From Blistex] AdvReac Swelling Verified 01/01/23 11:26 petrolatum,hydrophilic AdvReac Swelling Verified 01/01/23 11:26 [From Blistex] phenol [From Blistex] AdvReac Swelling Verified 01/01/23 11:26 tetracycline AdvReac Rash Verified 11/25/22 13:54 Family History Father Diabetes Mother Diabetes Surgical History History of intestinal surgery History of lumpectomy of right breast History of right breast biopsy (~11/2021) Hx of appendectomy Hx of bilateral oophorectomy Hx of hysterectomy Hx of repair of right rotator cuff Social History household members: spouse Smoking Status: Never smoker alcohol intake: never substance use type: does not use ROS ROS ED Constitutional Constitutional ED: Denies chills, fever(s) or sweats Eyes Eyes: Denies blurry vision or change in vision ENT ENT ED: Denies ear pain or sore throat Cardiovascular Cardiovascular: Denies chest pain, palpitations or racing heartbeat Respiratory/Chest Respiratory/Chest: Denies cough, dyspnea or sputum Gastrointestinal Gastrointestinal: Denies abdominal pain, constipation, diarrhea, nausea or vomiting Genitourinary Genitourinary ED: Denies dysuria, hematuria or urinary frequency Musculoskeletal Musculoskeletal: Denies arthralgias, myalgias or neck pain Integumentary Reports rash and other Details: Scalp rash ; Denies abscess or Abrasions Neurologic Neurologic: Denies headache(s), paresthesias or weakness Psychiatric Psychiatric: Denies anxiety, depression, suicidal ideation or suicidal thoughts Endocrine Endocrinology: Denies polydipsia or polyuria EXAM Physical Exam Const Vital Signs: 01/01/23 11:23 Temperature 98.1 F Temperature Source Temporal Pulse Rate 98 Respiratory Rate 16 Blood Pressure 135/80 H Blood Pressure Mean 98 Pulse Ox 100 Oxygen Delivery Method Room Air Positive well nourished General Appearance ED: NAD; Negative for pallor HEENT Reports moist mucous membranes Neck no lymphadenopathy and supple Chest Wall inspection of chest normal Resp normal respiratory effort Cardio regular rate and regular rhythm Neuro oriented x3 and CN's II-XII intact bilaterally Sensorium / Orientation: alert Skin Skin Narrative: Erythema, warmth, tenderness over the occiput mostly on the left side without evidence of abscess or fluctuance. General Skin Exam: Negative for jaundice or pallor MDM MDM MDM Narrative Medical decision making narrative: Patient appears to be presenting with cellulitis on her scalp. She is concernedshe had abscess because this is what she was told by urgent care. She has been on Keflex which would not cover for MRSA which she does have a history of. She is given a dose of clindamycin IV here in the ED. I obtained basic lab work which included a CBC and BMP which were completely normal. Patient given morphine Zofran for pain. CT of the brain was obtained and shows no evidence ofabscess or acute abnormality. Given this I will discharge the patient home on [place] and clindamycin since he is allergic to sulfa. Return precautions discussed. Impression: 1. Scalp cellulitis Lab Data Labs: Laboratory Results - last 24 hr 01/01/23 12:00 WBC 8.0 RBC 4.32 Hgb 12.6 Hct 39.0 MCV 90.3 MCH 29.2 MCHC 32.3 RDW Std Deviation 44.4 H RDW Coeff of Elsi 13.3 Plt Count 215 MPV 8.8 Immature Gran % (Auto) 0.400 Neut % (Auto) 63.6 Lymph % (Auto) 20.1 Sullivan % (Auto) 8.2 Eos % (Auto) 7.2 H Baso % (Auto) 0.5 Absolute Neuts (auto) 5.1 Absolute Lymphs (auto) 1.61 Nucleated RBC % 0 Sodium 140 Potassium 3.6 Chloride 109 H Carbon Dioxide 24.0 Anion Gap 7 BUN 11 Creatinine 0.84 Estim Creat Clear Calc 54.42 Est GFR (MDRD) Af Amer 90 Est GFR (MDRD) Non-Af 74 BUN/Creatinine Ratio 13.2 Glucose 112 H Calcium 9.3 Radiography Diagnostic Testing: Clinical Impression(s) from Imaging Studies Brain CT 01/01/23 11:43 IMPRESSION: Normal unenhanced CT scan of the brain. Sinusitis. Electronically Signed: Henrry Barroso MD at 12:45 EDT , Discharge Plan Triage Chief Complaint: Abscess ED Provider: Aniceto Tillman Dx/Rx/DC Orders Instructions: ED Cellulitis Prescriptions: New hydrocodone-acetaminophen 5-325 mg tablet 1 tab PO Q4H PRN PRN (Reason: Pain) 3 Days Qty: 10 0RF clindamycin HCl 150 mg capsule 450 mg PO TID 10 Days Qty: 90 0RF No Action hydroxyzine HCl 25 mg tablet 25 mg PO BID PRN Patient Comments: TAKE ONE TABLET BY MOUTH 2-3 TIMES DAILY NEEDED FOR ANXIETY omeprazole 40 mg capsule,delayed release(DR/EC) 40 mg PO BID Patient Comments: TAKE 1 CAPSULE BY MOUTH TWICE DAILY trazodone 150 mg tablet 225 mg PO QHS Patient Comments: take 1 and 1/2 tablet DAILY AT BEDTIME metformin 500 mg tablet extended release 24 hr 500 mg PO BID albuterol sulfate 90 mcg/actuation HFA aerosol inhaler 2 puff inhalation Q6H PRN (Reason: shortness of breath or wheezing) Qty: 8.5 0RF fluticasone propion-salmeterol [Advair HFA] 45-21 mcg/actuation HFA aerosol inhaler 2 puff INHALATION BID atorvastatin 40 mg PO DAILY Benadryl Allergy 25 mg PO BID Rx Instructions: allergies ibuprofen 500 mg PO Q6H PRN PRN (Reason: Pain) benzonatate 100 mg Capsule 200 mg PO TID Qty: 90 0RF cyclobenzaprine [cyclobenzaprine] 10 mg tablet 10 mg PO TID PRN (Reason: Muscle Spasm) Qty: 20 0RF permethrin 5 % cream 1 applic topical Q14D Qty: 60 0RF Rx Instructions: apply second treatment 14 days after first treatment atorvastatin 40 mg tablet 40 mg PO QHS Patient Comments: TAKE ONE TABLET BY MOUTH AT BEDTIME prednisone 20 mg tablet 40 mg PO DAILY 5 Days Qty: 10 0RF Primary Care Provider: Craolyn West Referrals: Carolyn West [Primary Care Provider] - Disposition Disposition: Home, Self Care What to do if you have Problems For any increased pain, shortness of breath, bleeding, nausea or vomiting, chestpain, or any unexpected problems, contact your Primary Care Provider. Call [facility] ([phone]) or report to the closest Emergency Room. Call 911 if necessary. 01/01/23 1325 <Electronically signed by Aniceto Tillman DO> Cosigner Signature (if applicable): CC: Dr. Carolyn West ~ Signed [facility] Work Phone: [phone]) 539-322708-14-2023 History of Present illness Narrative* Taylor Phan APRN.PLASTER HELPER - 12/30/2022 2:12 PM EDT This note was created using Astrapiriter. Subjective Leah Jerry is a 57 year old female. 57 [...] history is provided by the patient. No speech and language clinician was used. Musculoskeletal Problem This is a [...] recently diagnosed with neuropathy PCP is through Carolyn Oropeza She states that she has been [...] to have onset infection in posterior scalp. Taylor Phan APRN.PLASTER HELPER [facility] Discharge summary Author Mehrdad Norris [facility] November 25, 2022 4:47pm Note Date/Time November 25, 2022 2:34 pm [facility] Medical Records Department [address] [place] [id number] Emergency Department Summary 11/25/22 MR#: [id number] Acct: [id number] Name: LEAH JERRY Rep #:[id number] : 1965 56 From: Mehrdad Norris MD PCP: Dr. Carolyn West Status:REG ER Location: ED ADDENDUM by Dr. Mehrdad Norris MD on 11/25/22 at 1647 EKG interpreted by myself shows a sinus rhythm at 86, leftward axis, no acute injury pattern, unchanged compared with prior. 11/25/22 1647<Electronically signed by Mehrdad Norris MD> Cosigner Signature (if applicable): cc: Dr. Carolyn Wets ~* Signed HPI History of Present Illness Chief Complaint: General Illness Informant: patient Onset/Context/Timing Onset: Days (4) Context: Gradual Onset Timing: Continuous Narrative Narrative: Patient with nasal congestion, she states her ears popped 4 days ago and have been sore ever since, she has been coughing up green sputum, some shortness of breath that does not necessarily feel like her asthma, no chest discomfort, orthopnea, or pedal edema. Lost her voice since yesterday. She states her joints hurt all over, worse in her fingers. No known sick contacts no travel out of the area recently. [facility] Medical History (Updated 11/25/22 @ 16:[address] Mehrdad Norris MD) Anxiety Asthma Bipolar 1 disorder Degenerative disc disease Depression Diabetes Fibromyalgia GERD (gastroesophageal reflux disease) History of diverticulitis Hx of intestinal obstruction MRSA (methicillin resistant staph aureus) culture positive PTSD (post-traumatic stress disorder) Home Medications metformin 500 mg tablet,extended release 24 hr 500 mg PO BID Check with primary doctor 07/15/21 [History Last Taken 03/06/22 08:00] trazodone 150 mg tablet 225 mg PO QHS anxiety 07/15/21 [History Last Taken 03/05/22 21:00] albuterol sulfate 90 mcg/actuation aerosol inhaler 2 puff inhalation Q6H PRN shortness of breath or wheezing #8.5 grams 07/16/21 [Rx Last Taken 03/06/22 08:00] fluticasone propionate 45 mcg-salmeterol 21 mcg/actuation HFA inhaler (Advair HFA) 2 puff inhalation BID asthma 10/04/21 [History Last Taken 03/06/22 07:30] Benadryl Allergy 25 mg PO BID Check with primary doctor 03/06/22 [History Last Taken 03/06/22 12:00] atorvastatin 40 mg PO DAILY cholesterol 03/06/22 [History Last Taken 03/06/22 08:00] ibuprofen 500 mg PO Q6H PRN PRN Pain 03/06/22 [History Last Taken 03/06/22 08:30] benzonatate 100 mg capsule 200 mg (2 x 100 mg) PO TID #90 caps 03/07/22 [Rx Last Taken Unknown] cyclobenzaprine 10 mg tablet 10 mg PO TID PRN Muscle Spasm #20 TABLETS 06/14/22 [Rx Last Taken Unknown] permethrin 5 % topical cream 1 applic topical Q14D 2 doses #60 grams 07/15/22 [Rx Last Taken Unknown] hydroxyzine HCl 25 mg tablet 25 mg PO BID PRN anxiety 11/04/22 [History Last Taken Unknown] omeprazole 40 mg capsule,delayed release 40 mg PO BID 11/04/22 [History Last Taken Unknown] atorvastatin 40 mg tablet 40 mg PO QHS 11/25/22 [History Last Taken Unknown] prednisone 20 mg tablet 40 mg (2 x 20 mg) PO DAILY 5 days #10 TABLETS 11/25/22 [Rx Last Taken Unknown] Allergy/AdvReac Type Severity Reaction Status Date / Time aminophylline Allergy Swelling Verified 11/25/22 13:54 amphetamine [From Adderall] Allergy Other Verified 11/25/22 13:54 dextroamphetamine Allergy Other Verified 11/25/22 13:54 [From Adderall] Iodinated Contrast Media [CT] Allergy Swelling Verified 11/25/22 13:54 iodine Allergy Swelling Verified 11/25/22 13:54 povidone-iodine Allergy Swelling Verified 11/25/22 13:54 [From Betadine] shellfish derived Allergy Swelling Verified 11/25/22 13:54 Sulfa (Sulfonamide Allergy Swelling Verified 11/25/22 13:54 Antibiotics) tetracycline AdvReac Rash Verified 11/25/22 13:54 Family History Father Diabetes Mother Diabetes Surgical History History of intestinal surgery History of lumpectomy of right breast History of right breast biopsy (~11/2021) Hx of appendectomy Hx of bilateral oophorectomy Hx of hysterectomy Hx of repair of right rotator cuff Social History household members: spouse Smoking Status: Never smoker alcohol intake: never substance use type: does not use ROS ROS ED Constitutional Constitutional ED: Reports chills, fever(s), malaise and subjective Eyes Eyes: Denies change in vision ENT ENT ED: Reports ear pain bilateral, hoarseness, nasal congestion, rhinorrhea andsore throat Cardiovascular Cardiovascular: Denies chest pain, palpitations or racing heartbeat Respiratory/Chest Respiratory/Chest: Reports cough, dyspnea and sputum Gastrointestinal Gastrointestinal: Denies abdominal pain, diarrhea, nausea or vomiting Genitourinary Genitourinary ED: Denies dysuria or hematuria Musculoskeletal Musculoskeletal: Reports arthralgias; Denies back pain or neck pain Integumentary Denies abscess or rash Neurologic Neurologic: Denies headache(s), paresthesias or weakness Psychiatric Psychiatric: Denies depression or suicidal thoughts Endocrine Endocrinology: Denies polydipsia or polyuria EXAM Physical Exam Const Vital Signs: 11/25/22 13:55 11/25/22 14:07 Temperature 98.1 F Temperature Source Temporal Pulse Rate 86 Respiratory Rate 14 Respiratory Effort Normal Non-Labored Respiratory Pattern Normal Blood Pressure 130/66 H Blood Pressure Mean 87 Pulse Ox 97 Oxygen Delivery Method Room Air Positive well nourished and well developed General Appearance ED: well developed and NAD HEENT Reports TM's clear and moist mucous membranes HEENT Narrative: Hoarseness no stridor normocephalic and atraumatic Tympanic Membrane ED: Yes TM's clear Throat: Negative for posterior oropharynx abnormal Eyes PERRL and EOMs intact bilaterally Neck no lymphadenopathy, supple, no meningeal signs and no JVD Chest Wall inspection of chest normal and palpation of chest normal Resp normal respiratory effort and clear to auscultation bilaterally Cardio no murmurs Rate: regular rate; Negative for tachycardic Rhythm: regular rhythm GI normal to inspection, nondistended, normoactive bowel sounds and non-tender Back/Spine no CVA tenderness Extremity normal to inspection and no calf tenderness Extremity Narrative: Full range of motion of all joints without any significant difficulty, no objective evidence of joint swelling or erythema or excessive warmth. General Extremety ED: Negative for edema General Extremity: Negative for edema Neuro oriented x3, CN's II-XII intact bilaterally and no sensory deficits noted Sensorium / Orientation: alert Motor Exam: strength 5/5 throughout Psych mental status grossly normal Skin Skin Narrative: Maculopapular erythematous rash both lower legs anteriorly along with some scabs, stable and chronic per patient. Minor version of this on her mid back aswell. No petechia, no bullae, no purpuric rashes. Lesions: no lesions MDM MDM MDM Narrative Medical decision making narrative: Consistent with a viral syndrome given patient has clear lungs, normal exam, andsymptoms of subjective fevers, aches, a cough productive of green sputum. Labs obtained to rule out cardiac process, anemia, renal failure. This was all normal including a BNP of 23.4. Chest x-ray 2 views of my interpretation shows chronic changes but no acute pneumonia or pneumothorax. Given all this along with her clinical presentation with hoarseness and a very benign exam otherwise,this is all consistent with viral etiology. We did do COVID and influenza swabsthose were both negative. At this time I think it is best to treat her with a 5-day burst of prednisone to treat her as an assumed asthma exacerbation. She is in agreement and asked for a work note as well and will follow-up if worse. Lab Data Attestation: I reviewed the patient's lab results. Labs: Laboratory Results - last 24 hr 11/25/22 14:34 WBC 5.4 RBC 4.25 Hgb 12.7 Hct 37.5 MCV 88.2 MCH 29.9 MCHC 33.9 RDW Std Deviation 41.8 RDW Coeff of Elsi 13.0 Plt Count 234 MPV 8.8 Immature Gran % (Auto) 0.700 Neut % (Auto) 58.5 Lymph % (Auto) 25.2 Sullivan % (Auto) 8.8 Eos % (Auto) 6.2 H Baso % (Auto) 0.6 Absolute Neuts (auto) 3.1 Absolute Lymphs (auto) 1.35 Nucleated RBC % 0 Sodium 140 Potassium 3.6 Chloride 109 H Carbon Dioxide 28.0 Anion Gap 3 L BUN 7 Creatinine 0.77 Estim Creat Clear Calc 62.99 Est GFR (MDRD) Af Amer 98 Est GFR (MDRD) Non-Af 81 BUN/Creatinine Ratio 9.1 L Glucose 162 H Calcium 8.8 B-Natriuretic Peptide 23.4 Discharge Plan Triage Chief Complaint: General Illness ED Provider: Mehrdad Norris Dx/Rx/DC Orders Clinical Impression: Viral URI with cough, Acute asthma exacerbation Instructions: ED Asthma, Acute (Adult), ED URI, Viral, No Abx (Adult) Prescriptions: New prednisone 20 mg tablet 40 mg PO DAILY 5 Days Qty: 10 0RF No Action hydroxyzine HCl 25 mg tablet 25 mg PO BID PRN Patient Comments: TAKE ONE TABLET BY MOUTH 2-3 TIMES DAILY NEEDED FOR ANXIETY omeprazole 40 mg capsule,delayed release(DR/EC) 40 mg PO BID Patient Comments: TAKE 1 CAPSULE BY MOUTH TWICE DAILY trazodone 150 mg tablet 225 mg PO QHS Patient Comments: take 1 and 1/2 tablet DAILY AT BEDTIME metformin 500 mg tablet extended release 24 hr 500 mg PO BID albuterol sulfate 90 mcg/actuation HFA aerosol inhaler 2 puff inhalation Q6H PRN (Reason: shortness of breath or wheezing) Qty: 8.5 0RF fluticasone propion-salmeterol [Advair HFA] 45-21 mcg/actuation HFA aerosol inhaler 2 puff INHALATION BID atorvastatin 40 mg PO DAILY Benadryl Allergy 25 mg PO BID Rx Instructions: allergies ibuprofen 500 mg PO Q6H PRN PRN (Reason: Pain) benzonatate 100 mg Capsule 200 mg PO TID Qty: 90 0RF cyclobenzaprine [cyclobenzaprine] 10 mg tablet 10 mg PO TID PRN (Reason: Muscle Spasm) Qty: 20 0RF permethrin 5 % cream 1 applic topical Q14D Qty: 60 0RF Rx Instructions: apply second treatment 14 days after first treatment atorvastatin 40 mg tablet 40 mg PO QHS Patient Comments: TAKE ONE TABLET BY MOUTH AT BEDTIME Stand Alone Forms: ED Work / School Excuse Primary Care Provider: Carolyn West Referrals: Carolyn West [Primary Care Provider] - 1 Week if not improving Disposition Disposition: Home, Self Care What to do if you have Problems For any increased pain, shortness of breath, bleeding, nausea or vomiting, chestpain, or any unexpected problems, contact your Primary Care Provider. Call [facility] ([phone]) or report to the closest Emergency Room. Call 911 if necessary. 11/25/22 1642 <Electronically signed by Mehrdad Norris MD> Cosigner Signature (if applicable): CC: Dr. Carolyn West ~ Signed [facility] Work Phone: 1(826) 462-946704-02-2023 History of Present illness Narrative* Liseth Rubalcava MD - 08/18/2022 12:03 AM EDT Transfer of Care Note Last Visit: 12/24/21 [...] I co-manage: Depression, anxiety (following psychiatry at [facility]) Problems that we manage that [...] (H) 4.3 - 5.6 % Final Comment: [place] [employer] guidelines indicate that patients with [...] for buying medications in the past. SDOH: 2/ Additional Information: please ask every time which [...] And Iodide C* Tetracycline [facility]03-21-[facility]23 Miscellaneous Notes* Telephone Encounter - Marlena Mcknight - 08/06/2022 8:15 AM EDT Spoke with pt regarding on being a pt, pt states she moved to [place] and no longer will be coming to [facility]. * Telephone Encounter - Adán Perez MA - 08/01/2022 1:31 PM EDT Lm for pt to call office and schedule a appointment if she wants to continue care here. * Telephone Encounter - Staci Schaefer RN - 08/01/2022 1:13 PM EDT Patient needs follow up appt with pcp Verify if patient still active with our office. documented [facility]10-[facility] Hospital Discharge instructions Additional Instructions See your family doctor in 3 to 4 days. Return to the ER if increasing shortness of breath or condition should worsen anyway.[facility] Work Phone: [phone]) 409-888908-05-2022 Miscellaneous Notes* Telephone Encounter - Adelaida Santos RN - 12/21/2021 10:[address] Bright for Dr. Rubalcava - [...] advise. Adelaida Santos RN documented in [facility] Hospital Discharge instructions Patient Education 06/27/2021 17:40:37 Asthma, Acute [...] and you are still in the yellow zone(50% to 80%) 15 minutes after using inhaler [...] Lips or fingernails turning bullock or blue [phone] [employer]. [address] [place] [address], [place] [address]. All rights reserved. This information is not intended as a substitute for professional medical care. Always follow yourhealthcare professional's instructions. Follow Up Care 06/27/2021 15:19:51 With:AHMET ARCHER Address: [address] [id number]- [facility] (1) When:2-4 days Comments:Return to ED if symptoms worsen [facility] Anjelslim Acosta 01-20-2022 Hospital Discharge instructions Patient Education 06/07/2021 14:51:41 Asthma, Acute [...] and you are still in the yellow zone(50% to 80%) 15 minutes after using inhaler [...] Lips or fingernails turning bullock or blue [phone] [employer]. [address] [place] [address], [place] [address]. All rights reserved. This information is not intended as a substitute for professional medical care. Always follow yourhealthcare professional's instructions. Follow Up Care 06/07/2021 13:30:31 With:Call Physician Referral Address:Unknown When:2-4 days [facility] 01-10-2022 Hospital Discharge instructions Patient Education 05/28/2021 16:14:07 Laceration, Hand: [...] date on this vaccination and the object thatcut you may carry tetanus. Home care Your healthcare provider may prescribe an antibiotic. This is to help prevent infection. Follow allinstructions for taking this medicine. Take the medicine every day until it is gone or you are toldto stop. You should not have any left [...] the stitches dry, clean the wound daily. First,remove the bandage. Then wash the area gently with soap and warm water, or as directed by the healthcare provider. Use a wet cotton swab to loosen and remove any blood or crust that forms. After cleaning, apply a thin layer of antibiotic ointment if advised. Then put on a new bandage unless you aretold not to. Caring for skin glue: Don [...] affected hand Decreased movement of the hand [phone] [employer]. [address] [place] [address]. All rights reserved. This information is not intended as a substitute for professional medical care. Always follow yourhealthcare professional's instructions. Follow Up Care 05/28/2021 15:31:23 With:Call Physician Referral Address:Unknown When:2-4 days [facility] Karla 11-22-2021 Hospital Discharge instructions Patient Education 04/09/2021 06:35:32 Asthma, Acute [...] and you are still in the yellow zone(50% to 80%) 15 minutes after using inhaler [...] Lips or fingernails turning bullock or blue [phone] [employer]. [address] [place] [address]. All rights reserved. This information is not intended as a substitute for professional medical care. Always follow yourhealthcare professional's instructions. Follow Up Care 04/09/2021 05:40:57 With:MEDICAL, CLINIC Address: [address] [place] [address]- When:2-4 days [facility] Consult note Author Jose Angel Lyon [facility] Note Date/Time August 13, 2024 6:4 4am [facility] Medical Records Department [address] [place] [address] Pre-Anesthesia Evaluation 08/13/24 0643 MR#: [id number] Acct: [id number] Name: LEAH JERRY Rep #:[id number] : 1965 58 From: Jose Angel Lyon MD PCP: Taylor Fields, [employer], AIRCRAFT STRUCTURAL [employer]TER-C Statu s:REG SDC Y Race: C Location: [place] [address] ASA Classification* ASA Classification ASA Classification: 2 Assessment & Plan Anesthesia* Anesthesia Assessment Anesthesia Assessment: Discussed sedation and/or anesthesia options, risks, benefits, and alternatives with patient/parents/legal guardian/POA. Questions invited. The patient/parents/legal guardian/POA seems to understand and agrees to proceedwith anesthesia plan. Reviewed the physical assessment, medical history, allergy history and patient home medications list prior to surgery/procedure/anesthetic and documented any changes. Performed airway and anesthesia risk assessments. Anesthesia Type Anesthesia Type: MAC Anesthesia Focused Assessment* Airway Assessment Mouth opens: >3 cm Mallampati Score: II Focused Labs Anesthesia Preop lab: CBC WBC 12.1 K/mm3 (4.4-11.0) H 04/19/24 19:10 4 RBC 5.75 M/mm3 (4.2-5.4) H 04/19/24 19:10 04/19/24 Hgb 15.9 g/dL (12.0-15.0) H 04/19/24 19:10 4 Hct 49.4 % (37-47) H 04/19/24 19:10 04/19/24 Plt Count 290 K/mm3 (150-450) 04/19/24 19:10 04/19/24 CHEMISTRY Potassium 3.6 mmol/L (3.5-5.1) 04/19/24 20:58 04/19/24 Sodium 140 mmol/L (136-145) 04/19/24 20:58 04/19/24 Magnesium 2.1 mg/dL (1.6-2.6) 03/07/22 06:30 03/07/22 Phosphorus 3.4 mg/dL (2.5-4.9) 03/07/22 06:30 03/07/22 BUN 15 mg/dL (7-18) 04/19/24 20:58 04/19/24 Creatinine 0.71 mg/dL (0.55-1.02) 04/19/24 20:58 04/19/24 Glucose 162 mg/dL (74-106) H 04/19/24 20:58 04/19/24 POC Glucose 251 mg/dL (74-106) H 04/22/24 05:57 04/22/24 TSH 0.489 uIU/mL (0.358-3.740) 03/25/24 08:02 110 12/09 COAG PT 13.0 SECONDS (11.7-14.9) 04/19/24 19:10 Pre-Assessment Diagnosis/Proposed Procedure Planned Operative Procedure(s): EGD Anesthesia History 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 When Was Last Pacemaker Check QUESTION #4 FULL TEXT: You/Your Family Experience fever (hyperthermia) with Anesthesia Last Oral Intake Last Oral intake: Last Oral Intake NPO since Meds taken in AM with sips of water? 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 Female Yes 08/10/24 14:40 HX of Motion Sickness No 08/10/24 14:40 HX of N/V After Surgery No 08/10/24 14:40 Non-Smoker Yes 08/10/24 14:40 Duration of Surgery greater No 08/10/24 14:40 than 60 minutes Number of Risk Factors 2 08/10/24 14:40 PONV Score Moderate Risk 08/10/24 14:40 Height & Weight Height & Weight: Anesthesia: Height & Weight Height 5 ft 2 in 07/08/24 11:42 Respiratory Assessment Respiratory Assessment - machine shop supervisor: Respiratory Tract Infection Hx - machine shop supervisor Hx Respiratory Tract Infection No 08/10/24 14:40 STOP Sleep Apnea STOP Sleep Apnea - machine shop supervisor: STOP Sleep Apnea - machine shop supervisor Hx Hypertension No 08/10/24 14:40 Hx Sleep Apnea No 08/10/24 14:40 CPAP BIPAP Do you snore loudly (louder Yes 08/10/24 14:40 than talking or can be heard Do you often feel tired/ Yes 08/10/24 14:40 fatigued/ sleepy during daytime? Has anyone observed you stop No 08/10/24 14:40 breathing during sleep? STOP Results Positive 08/10/24 14:40 QUESTION #5 FULL TEXT : Do you snore loudly (louder than talking or can be heard through closed doors)? 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 Specify any problems Hx of Preganancy in last 3 No 08/10/24 14:40 Months Nurse Filling Out Transfusion DSCHRIBER 08/10/24 14:40 & Questions: Date: 08/10/24 08/10/24 14:40 Time: 14:41 08/10/24 14:40 Patient unable to answer at this time (ie. confused, unrespo /Reproduction History /Reproductive History - machine shop supervisor: /Reproductive Hx- machine shop supervisor Hx Now No 08/10/24 14:40 Gestational Age (in weeks): EDC: Hx Hx Para Hx Section SAB No 08/10/24 14:40 PFSH Medical History Esophageal and gastric varices History of ulceration Lupus Osteoarthritis of right knee Right knee pain Greater trochanteric bursitis of left hip Osteoarthritis of left hip Left hip pain Psoriasis Wears glasses Arthritis Difficulty swallowing Gastric reflux History of cellulitis Bilateral carpal tunnel syndrome Anxiety Degenerative disc disease Fibromyalgia MRSA (methicillin resistant staph aureus) culture positive Hx of intestinal obstruction History of diverticulitis Bipolar 1 disorder Depression Diabetes Asthma PTSD (post-traumatic stress disorder) Home Medications ?Medication ?Instructions ?Recorded ?Last Taken ?Type trazodone 150 mg tablet 150 mg PO QHS anxiety 08/12/24 History albuterol sulfate 90 mcg/actuation 2 puff inhalation Q 6H PRN 07/16/21 08/13/24 Rx aerosol inhaler shortness of breath or wheez ing #8.5 grams ibuprofen 500 mg PO Q6H PRN PRN Pain 1 0/19/22 03/27/25 History hydroxyzine HCl 25 mg tablet 25 mg PO TID PRN anxiety 11/04/22 08/12/24 History cetirizine 10 mg tablet 10 mg PO BID 03/06/23 History fluticasone fur. 200 mcg-umeclid 1 inh inhalation Q24H 04/08/23 08/13/24 History 62.5 mcg-vilant 25 mcg inhalat.powder (Trelegy Ellipta) lanolin alcohols-mineral 1 applic topical DAILY 04/0808/13/24 History oil-w.petrolatum-ceresin topical cream (Minerin Creme topical) sertraline 50 mg tablet 50 mg PO DAILY 04/08/2307/18 History hydroxyzine HCl 25 mg tablet 50 mg PO QHS 06/23/23 History dapagliflozin propanediol 10 mg 10 mg PO DAILY 4 08/10/24 History tablet (Farxiga) omeprazole 40 mg capsule,delayed 40 mg PO BID 10/01/23 08/13/24 History release triamcinolone acetonide 0.1 % 1 applic topical BID 08/12/24 History topical cream atorvastatin 20 mg tablet 20 mg PO QHS 10/28/23 History metformin 500 mg tablet 500 mg PO BID 03/12/2408/12 History propranolol 20 mg tablet 20 mg PO BID 03/12/24 History metoclopramide HCl 10 mg tablet 10 mg PO Q6H PRN nause a and 05/04/24 Unknown Rx vomiting #20 tabs benzonatate 100 mg capsule 100 mg PO BID PRN cough 08/12/24 History dicyclomine 20 mg tablet 20 mg PO TID PRN abdominal p ain 06/14/24 08/11/24 History gabapentin 100 mg capsule 300 mg PO TID 06/14/2408/11 History ondansetron 4 mg disintegrating 4 mg PO Q8H PRN nausea and vomiting 06/14/24 08/12/24 History tablet albuterol sulfate 2.5 mg/3 mL 2.5 mg inhalation Q4H FL N PRN 08/10/24 Unknown History (0.083 %) solution for nebulization shortness of breat h or wheezing cyclobenzaprine 5 mg tablet 5 mg PO BID 08/13/2408/12 History fluticasone propionate 50 2 spray intranasal DAILY PRN 08/13/24 Unknown History mcg/actuation nasal congestion spray,suspension Allergy/AdvReac Type Severity Reaction Status Date / Time Tetracyclines Allergy Intermediate Rash Verified 08/10/24 14:36 aminophylline Allergy Swelling Verified 08/10/24 14:36 amphetamine (From Adderall) Allergy Other Verified 08/10/24 14:36 dextroamphetamine (From Allergy Other Verified 08/10/24 14:36 Adderall) dulaglutide (From Trulicity) Allergy Vomiting Verified 08/10/24 14:36 Iodinated Contrast Media (CT) Allergy Swelling Verified 08/10/24 14:36 iodine Allergy Swelling Verified 08/10/24 14:36 povidone-iodine (From Allergy Swelling Verified 08/10/24 14:36 Betadine) shellfish derived Allergy Swelling Verified 08/10/24 14:36 Sulfa (Sulfonamide Allergy Swelling Verified 08/10/24 14:36 Antibiotics) buspirone (From BuSpar) AdvReac Intermediate Other Verified 08/10/24 14:36 allantoin (From Blistex) AdvReac Swelling Verified 08/10/24 14:36 aloe vera (From Blistex) AdvReac Swelling Verified 08/10/24 14:36 camphor (From Blistex) AdvReac Swelling Verified 08/10/24 14:36 chamomile flower (From AdvReac Swelling Verified 08/10/24 14:36 Blistex) dimethicone (From Blistex) AdvReac Swelling Verified 08/10/24 14:36 herbal complex no.57 (From AdvReac Swelling Verified 08/10/24 14:36 Blistex) homosalate (From Blistex) AdvReac Swelling Verified 08/10/24 14:36 menthol (From Blistex) AdvReac Swelling Verified 08/10/24 14:36 meradimate (From Blistex) AdvReac Swelling Verified 08/10/24 14:36 octinoxate (From Blistex) AdvReac Swelling Verified 08/10/24 14:36 octyl salicylate (From AdvReac Swelling Verified 08/10/24 14:36 Blistex) oxybenzone (From Blistex) AdvReac Swelling Verified 08/10/24 14:36 padimate O (From Blistex) AdvReac Swelling Verified 08/10/24 14:36 petrolatum,hydrophilic (From AdvReac Swelling Verified 08/10/24 14:36 Blistex) phenol (From Blistex) AdvReac Swelling Verified 08/10/24 14:36 tetracycline AdvReac Rash Verified 08/10/24 14:36 Family History Father Diabetes Heart disease COPD (chronic obstructive pulmonary disease) Hypertension Mother Diabetes Heart disease COPD (chronic obstructive pulmonary disease) Cancer Sister Heart disease Thyroid disorder Surgical History History of esophagogastroduodenoscopy (EGD) Hx of colonoscopy History of carpal tunnel surgery Hx of surgical procedure Hx of tooth extraction Hx of breast surgery History of right breast biopsy (~11/2021) History of intestinal surgery History of lumpectomy of right breast Hx of appendectomy Hx of repair of right rotator cuff Hx of bilateral oophorectomy Hx of hysterectomy Social History household members: spouse housing: other details: homeless lives in [facility] Smoking Status: Never smoker alcohol intake: never substance use type: does not use Review of Systems (Anesthesia) ROS Narrative System reviewed and no additional complaints, except as documented. 08/13/24 0644 <Electronically signed by Jose Angel Lyon MD > Date _ Jose Angel Lyon MD [facility] Signature: Date CC: ~ Signed [facility] Work Phone: Consult note Author Geovanni Bland [facility] Note Date/Time August 13, 2024 7:4 8am [facility] Medical Records Department [address] [place] [address] Anesthesia Postop Eval I 08/13/24 0746 MR#: [id number] Acct: [id number] Name: LEAH JERRY Rep #:[id number] : 1965 58 From: Geovanni Bland PCP: KINGS Ruby, JHONY Statu s:REG SDC Y Race: C Location: [place] [address] Anesthesia: Postop Eval I Current Vital Signs Temperature: 97.5 F Pulse Rate: 72 Blood Pressure: 140/74 Respiratory Rate: 16 Pulse Ox: 95 Oxygen Delivery Method: Room Air Assessment Airway patent: Yes Spontaneous unlabored respirations: Yes Mental status: Asleep nausea: No Vomiting: No Anesthesia Complication: No Fluid Hydration Crystalloid volume administer (ml): 30 Total IV fluid infused: 30 Progress Note Anesthesia document: Postop Eval 1 completed: Yes 08/13/24 7112 <Electronically signed by Geovanni Bland > Date _ Geovanni Gomez Signature: Date CC: ~ Signed [facility] Work Phone: Consult note Author Jose Angel yoli [facility] Note Date/Time August 13, 2024 8:3 2am [facility] Medical Records Department [address] [place] [address] Anesthesia Postop Eval II 08/13/24 0831 MR#: [id number] Acct: [id number] Name: LEAH JERRY Rep #:[id number] : 1965 58 From: Jose Angel Lyon MD PCP: KINGS Ruby, JHONY Statu s:REG CHARITO Y Race: C Location: [place] [address] Anesthesia Postop Eval I Sum Postop Eval Completion status Anesthesia document: Postop Eval 1 completed: Yes Anesthesia Postop Eval I Summary Anesthesia Postop Eval I Summary: Anesthesia Postop Eval I: Assessment Summary 3 Airway patent Yes 08/13/24 07:48 [email or web address] Spontaneous unlabored Yes 08/13/24 07:48 [email or web address] respirations Mental status Asleep 08/13/24 07:48 [email or web address] nausea No 08/13/24 07:48 [email or web address] Vomiting No 08/13/24 07:48 [email or web address] Anesthesia Postop Eval I: Fluid Summary Crystalloid volume administer 30 08/13/24 07:48 [email or web address] (ml) Colloids volume administered ( ml) Blood Product volume administered (ml) Total IV fluid infused 30 08/13/24 07:48 [email or web address] Anesthesia Postop Eval I: Summary Notes Anesthesia Complication No 08/13/24 07:48 [email or web address] Anesthesia Complication Comment: Post-operative progress note Anesthesia: Postop Eval II Evaluation Mental status: Awake Pain Level: 0 nausea: No Vomiting: No 08/13/24 0832 <Electronically signed by Jose Angel Lyon MD > Date _ [facility] Signature: Date CC: ~ Signed [facility] Work Phone: Discharge summary Author Jonny Marino [facility] April 23, 2023 1:33pm Note Date/Time April 23, 2023 1 :33pm [facility] Medical Records Department [address] [place] [address] Instructions for Home/Discharge Instructions 04/23/23 1332 MR#: [id number] Acct: [id number] Name: LEAH JERRY Rep #:[id number] : 1965 57 From: Jonny Marino MD PCP: Dr. Carolyn West Status:REG SD C Discharge Instructions Diet Discharge Diet: No restrictions Activity Ice area for (Minutes): 10 Lifting Restrictions: no heavy lifting or gripping, ok to use hand for eating and drinking Keep extremity elevated above heart level: Operative Extremity Dressing / Incision Call your doctor if your incision/area has: Continuous Slow Oozing, Sudden Increased Bleeding, Increased Pain/ Swelling, Increased Redness, Foul Smelling Discharge and Swelling at the incision site Remove Dressing in: leave in place till F/U Follow Up Care Please Follow Up With: Jonny Marino MD When: 2 days Test Results: Test results from this visit will be discussed in further detail at your follow- up appointment, if applicable. Discharge Plan Admission Attending Provider: Jonny Marino Primary Care Provider: Carolyn West Discharge Orders/Prescriptions Prescriptions: No Action hydroxyzine HCl 25 mg tablet 25 mg PO BID PRN Patient Comments: TAKE ONE TABLET BY MOUTH 2-3 TIMES DAILY NEEDED FOR ANXIETY omeprazole 40 mg capsule,delayed release(DR/EC) 40 mg PO BID Patient Comments: TAKE 1 CAPSULE BY MOUTH TWICE DAILY tizanidine 4 mg tablet 4 mg PO BID Patient Comments: TAKE ONE TABLET BY MOUTH TWICE DAILY NEEDED FOR MUSCLE SPASMS stop cyclobenzaprine meloxicam 7.5 mg tablet 7.5 mg PO DAILY cetirizine 10 mg tablet 10 mg PO DAILY Patient Comments: TAKE ONE TABLET BY MOUTH EVERY DAY trazodone 150 mg tablet 150 mg PO QHS Patient Comments: take 1 and 1/2 tablet DAILY AT BEDTIME metformin 500 mg tablet extended release 24 hr 500 mg PO DAILY albuterol sulfate 90 mcg/actuation HFA aerosol inhaler 2 puff inhalation Q6H PRN (Reason: shortness of breath or wheezing) Qty: 8.5 0RF fluticasone propion-salmeterol [Advair HFA] 45-21 mcg/actuation HFA aerosol inhaler 2 puff INHALATION BID ibuprofen 500 mg PO Q6H PRN PRN (Reason: Pain) atorvastatin 40 mg tablet 20 mg PO QHS Patient Comments: TAKE ONE TABLET BY MOUTH AT BEDTIME albuterol sulfate 2.5 mg /3 mL (0.083 %) solution for nebulization 2.5 mg inhalation Q4H PRN (Reason: shortness of breath or wheezing) Patient Comments: inhale ONE ampule EVERY 4 TO 6 HOURS NEEDED Trelegy Ellipta 200-62.5-25 mcg blister with device 1 inh INHALATION Q24H Patient Comments: INHALE 1 PUFF BY MOUTH EVERY DAY sertraline 50 mg tablet 50 mg PO DAILY Patient Comments: TAKE ONE TABLET BY MOUTH EVERY DAY Minerin Creme Cream 1 applic TOPICAL DAILY Patient Comments: apply to lower legs liberally twice daily Trulicity 0.75 mg/0.5 mL pen injector 1.5 mg SUBCUT MATA Patient Comments: inject 0.75 mg subcutaneous every week as directed clindamycin HCl [Cleocin HCl] 300 mg capsule 300 mg PO BID tramadol 50 mg tablet 50 mg PO Q6H prednisone 20 mg tablet 20 mg PO BID Referrals / Follow Up: Jonny Marino MD [Med Staff - Active Staff] - Carolyn West [Primary Care Provider] - Disposition Disposition (needs filled in before D/C Order can be placed): Home, Self Care 04/23/23 1333<Electronically signed by Jonny Marino MD>Jonny Marino MD CC: Dr. Carolyn West ~ Signed [facility] Work Phone: Evaluation + Plan note No data available for this section [facility] Evaluation note* Diagnosis Onset Date Resolution Status Hypoxemia resolved Status asthmaticus resolved [facility] Work Phone: Evaluation note* Diagnosis Onset Date Resolution Status Hypoxemia resolved Status asthmaticus resolved Abscess of right axilla acut e Mastitis, right, acute acute Uncontrolled blood glucose a cute [facility] Work Phone: Evaluation note* Diagnosis Onset Date Resolution Status Hypoxemia resolved Status asthmaticus resolved Abscess of right axilla acut e Mastitis, right, acute acute Uncontrolled blood glucose a cute Abscess of right axilla acut e Abscess of right axilla acut e Breast mass, right acute Yeast infection of the skin acute [facility] Work Phone: Evaluation note* Diagnosis Onset Date Resolution Status Abscess of right axilla acut e Mastitis, right, acute acute Uncontrolled blood glucose a cute Abscess of right axilla acut e Abscess of right axilla acut e Breast mass, right acute Yeast infection of the skin acute Abscess of right axilla acut e Breast mass, right acute Screening mammogram for breast cancer acute [facility] Work Phone: Evaluation note* Diagnosis Onset Date Resolution Status Abscess of right axilla acut e Mastitis, right, acute acute Uncontrolled blood glucose a cute Abscess of right axilla acut e Abscess of right axilla acut e Breast mass, right acute Yeast infection of the skin acute Abscess of right axilla acut e Breast mass, right acute Screening mammogram for breast cancer acute Mass of right axilla acute [facility] Work Phone: Evaluation note* Diagnosis Onset Date Resolution Status Abscess of right axilla acut e Breast mass, right acute Yeast infection of the skin acute Abscess of right axilla acut e Breast mass, right acute Screening mammogram for breast cancer acute Mass of right axilla acute [facility] Work Phone: Evaluation note* Diagnosis Onset Date Resolution Status Abscess of right axilla acut e Breast mass, right acute Screening mammogram for breast cancer acute Mass of right axilla acute Asthma exacerbation acute COVID-19 acute Hypoxia acute [facility] Work Phone: Evaluation note* Diagnosis Onset Date Resolution Status COVID-19 acute Asthma exacerbation resolved Hypoxia resolved [facility] Work Phone: Evaluation noteNo assessment information available [facility] Work Phone: Evaluation note* Diagnosis Onset Date Resolution Status Herniated intervertebral disc of lumbar spine acute [facility] Work Phone: Evaluation note* Diagnosis Type 2 diabetes mellitus with peripheral neuropathy (HCC)- Primary Psoriasis Other [facility] Onset Date Resolution Status Bilateral carpal tunnel syndrome acute Bilateral carpal tunnel syndrome acute Bilateral carpal tunnel syndrome acute [facility] Work Phone: Evaluation note* Diagnosis Onset Date Resolution Status Bilateral carpal tunnel syndrome acute Bilateral carpal tunnel syndrome acute Bilateral carpal tunnel syndrome acute Bilateral carpal tunnel syndrome acute Bilateral carpal tunnel syndrome acute Status post dilation of esophageal narrowing acute Gastroesophageal reflux disease noneactive Bilateral carpal tunnel syndrome acute Bilateral carpal tunnel syndrome acute [facility] Work Phone: Evaluation note* Diagnosis Onset Date Resolution Status Bilateral carpal tunnel syndrome acute Bilateral carpal tunnel syndrome acute Bilateral carpal tunnel syndrome acute Bilateral carpal tunnel syndrome acute Status post dilation of esophageal narrowing acute Gastroesophageal reflux disease noneactive Bilateral carpal tunnel syndrome acute Bilateral carpal tunnel syndrome acute Bilateral carpal tunnel syndrome acute Bilateral carpal tunnel syndrome acute [facility] Work Phone: Evaluation note* Diagnosis Onset Date Resolution Status Bilateral carpal tunnel syndrome acute Bilateral carpal tunnel syndrome acute Bilateral carpal tunnel syndrome acute Status post dilation of esophageal narrowing acute Gastroesophageal reflux disease noneactive Bilateral carpal tunnel syndrome acute Bilateral carpal tunnel syndrome acute Bilateral carpal tunnel syndrome acute Bilateral carpal tunnel syndrome acute Bilateral carpal tunnel syndrome acute [facility] Work Phone: Evaluation note* Diagnosis Nausea and vomiting, unspecified vomiting type- [facility] Inflammatory arthritis- Primary Unspecified inflammatory polyarthropathy Hypovitaminosis D Unspecified vitamin D deficiency Psoriasis Other psoriasis Chronic bilateral low back pain without sciatica Inflammatory arthritis Unspecified inflammatory polyarthropathy Psoriasis Other psoriasis Chronic bilateral low back pain without sciatica [facility] Inflammatory arthritis Unspecified inflammatory polyarthropathy Psoriasis Other psoriasis Chronic bilateral low back pain without sciatica [facility] Rash and nonspecific skin eruption- Primary Rash and other nonspecific skin eruption [facility] Author James Friend [facility] Note Date/Time August 13, 2024 7:0 2am [facility] Medical Records Department [address] [place] [id number] History & Physical Exam 08/13/24 0659 MR#: [id number] Acct: [id number] Name: LEAH JERRY Rep #:[id number] : 1965 58 From: James Smith DO PCP: KINGS Ruby, [employer] Statu s:REG SDC Location: [place] [address] HPI - General General Date of Admission: 08/13/24 Date of Service: 08/13/24 Chief Complaint: dysphagia HPI Narrative LEAH JERRY, is a 58 F who presents for the evaluation of dysphagia and esophageal varices OV 03/12/2024 LILLY Ledesma This is a new pt here today for establishment with [facility]. She has had issues with n/v off and on since Jun 2023. Discontinuing Trulicity helped but her symptoms have come back. She underwent EGD in Jun 2023 with esophageal varices, inflammation and a benign tumor. She will undergo another EGD to assess her GI tract. We may need to order a GES in the future Pt has never had a diagnosis of cirrhosis or work up for this. She did have esophageal varices and I discussed that this is typically caused by cirrhosis. She does not have a hx of drinking. I ordered liver work up and liver elastography. She has alternating constipation and diarrhea for years now. She has not tried taking any daily medications. She is unwilling to try miralax daily so we I recommended colace. -EGD -Liver elastography -Liver work up -Start colace -Prescribed zofran -f/u in 3 months EGD 04/22/2024 - Ulceration w/ acute esophagitis, neg. H. pylori and celiac sprue It was recommended she complete serum gastrin and GES - Severe ulceration in the esophagus. Please make sure she is on PPI twice a day and metoclopramide 3 times a day. - LA Grade C reflux esophagitis with no bleeding. Biopsied. - Enlarged gastric folds. Biopsied. - Erythematous duodenopathy. Biopsied. - check Gastrin level - TONY + serum protein electrophoresis - Gastric emptying study Colon/EGD 07/2023 ([facility]) - neg. H. 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 - Diverticulosis in the entire examined colon. No specimens collected. - One 3 mm polyp in the proximal sigmoid colon. Biopsied. UGI 05/27/2023 No evidence of gastroesophageal reflux. Small traction diverticulum in the distal portion of the esophagus. LABS 04/19/2024 ALP 206 ALP elevation dates back to July 2023 ranging from 144-206. ABD US: 03/25/2024 hepatomegaly ELASTOGRAPHY: 03/25/2024 kPa 3.3 - c/o nausea - this does not cause emesis - dysphagia mid chest - emesis 2x in past 2 weeks - these episodes have been right after meals - she reports food is getting stuck in the esophagus and she is drinking water to try and push food through - this is when she vomits - this has been an issue for the past 3 years - c/o abdominal cramping improves with dicyclomine TID - if she does not take dicyclomine she sharp stabbing generalized pain - reports a history of esophageal dilation several years ago and did well until 3 years ago - she was taking IBU 4 tabs QID for joint pain - she decreased this 3 weeks ago to 3 tabs as needed Dicyclomine 10mg TID Metoclopramide 10mg QID PRN N/V - not taking any of this in the past month Omeprazole 40mg BID Ondansetron 4mg Q8h PRN - about 2x a week - weight is stable - Rheumatology this Friday at [facility] - weakness - 2 falls in past 2 weeks , fall February 2024 - states her legs just give out CBC 03/25/2024 HGB 12.2 PT/INR 03/25/2024 normal CMP: 03/25/2024July ALP 184 Fe pane: 03/25/2024 normal LDH: 03/25/2024 normal CRP: 03/25/2024 normal AFP: 03/25/2024 normal Ceruloplasmin: 03/25/2024 31 normal Serum Copper: 03/25/2024 normal ANCA: 03/25/2024 negative ARIADNA: 03/25/2024 normal SS-A/Ro IgG Ab: 03/25/2024 elevated 2.4 AMA: 03/25/2024 normal ASMA: 03/25/2024 normal HAV IgM 03/25/2024 negative HBVsAg 03/25/2024 negative HBV Core IgM 03/25/2024 negative HCV Ab 03/25/2024 negative HIV 03/25/2024 negative AFP: 03/25/2024 normal IBU - Jan 2024 to May 2024 - for joint aches and pain Half Brother - just passed from liver cirrhosis something genetic [facility] Medical History Esophageal and gastric varices History of ulceration Lupus Osteoarthritis of right knee Right knee pain Greater trochanteric bursitis of left hip Osteoarthritis of left hip Left hip pain Psoriasis Wears glasses Arthritis Difficulty swallowing Gastric reflux History of cellulitis Bilateral carpal tunnel syndrome Anxiety Degenerative disc disease Fibromyalgia MRSA (methicillin resistant staph aureus) culture positive Hx of intestinal obstruction History of diverticulitis Bipolar 1 disorder Depression Diabetes Asthma PTSD (post-traumatic stress disorder) Home Medications ?Medication ?Instructions ?Recorded ?Last Taken ?Type trazodone 150 mg tablet 150 mg PO QHS anxiety 08/12/24 History albuterol sulfate 90 mcg/actuation 2 puff inhalation Q 6H PRN 07/16/21 08/13/24 Rx aerosol inhaler shortness of breath or wheez ing #8.5 grams ibuprofen 500 mg PO Q6H PRN PRN Pain 1 08/12/24 History hydroxyzine HCl 25 mg tablet 25 mg PO TID PRN anxiety 11/04/22 08/12/24 History cetirizine 10 mg tablet 10 mg PO BID 03/06/23 History fluticasone fur. 200 mcg-umeclid 1 inh inhalation Q24H 04/08/23 08/13/24 History 62.5 mcg-vilant 25 mcg inhalat.powder (Trelegy Ellipta) lanolin alcohols-mineral 1 applic topical DAILY 04/0808/13/24 History oil-w.petrolatum-ceresin topical cream (Minerin Creme topical) sertraline 50 mg tablet 50 mg PO DAILY 04/08/23 03/12/10 History hydroxyzine HCl 25 mg tablet 50 mg PO QHS 06/23/23 History dapagliflozin propanediol 10 mg 10 mg PO DAILY 4 08/10/24 History tablet (Farxiga) omeprazole 40 mg capsule,delayed 40 mg PO BID 10/01/23 08/13/24 History release triamcinolone acetonide 0.1 % 1 applic topical BID 08/12/24 History topical cream atorvastatin 20 mg tablet 20 mg PO QHS 10/28/23 History metformin 500 mg tablet 500 mg PO BID 03/12/2408/12 History propranolol 20 mg tablet 20 mg PO BID 03/12/24 History metoclopramide HCl 10 mg tablet 10 mg PO Q6H PRN nause a and 05/04/24 Unknown Rx vomiting #20 tabs benzonatate 100 mg capsule 100 mg PO BID PRN cough 08/12/24 History dicyclomine 20 mg tablet 20 mg PO TID PRN abdominal p ain 06/14/24 08/11/24 History gabapentin 100 mg capsule 300 mg PO TID 06/14/2408/11 History ondansetron 4 mg disintegrating 4 mg PO Q8H PRN nausea and vomiting 06/14/24 08/12/24 History tablet albuterol sulfate 2.5 mg/3 mL 2.5 mg inhalation Q4H FL N PRN 08/10/24 Unknown History (0.083 %) solution for nebulization shortness of breat h or wheezing cyclobenzaprine 5 mg tablet 5 mg PO BID 08/13/2408/12 History fluticasone propionate 50 2 spray intranasal DAILY PRN 08/13/24 Unknown History mcg/actuation nasal congestion spray,suspension Allergy/AdvReac Type Severity Reaction Status Date / Time Tetracyclines Allergy Intermediate Rash Verified 08/10/24 14:36 aminophylline Allergy Swelling Verified 08/10/24 14:36 amphetamine (From Adderall) Allergy Other Verified 08/10/24 14:36 dextroamphetamine (From Allergy Other Verified 08/10/24 14:36 Adderall) dulaglutide (From Trulicity) Allergy Vomiting Verified 08/10/24 14:36 Iodinated Contrast Media (CT) Allergy Swelling Verified 08/10/24 14:36 iodine Allergy Swelling Verified 08/10/24 14:36 povidone-iodine (From Allergy Swelling Verified 08/10/24 14:36 Betadine) shellfish derived Allergy Swelling Verified 08/10/24 14:36 Sulfa (Sulfonamide Allergy Swelling Verified 08/10/24 14:36 Antibiotics) buspirone (From BuSpar) AdvReac Intermediate Other Verified 08/10/24 14:36 allantoin (From Blistex) AdvReac Swelling Verified 08/10/24 14:36 aloe vera (From Blistex) AdvReac Swelling Verified 08/10/24 14:36 camphor (From Blistex) AdvReac Swelling Verified 08/10/24 14:36 chamomile flower (From AdvReac Swelling Verified 08/10/24 14:36 Blistex) dimethicone (From Blistex) AdvReac Swelling Verified 08/10/24 14:36 herbal complex no.57 (From AdvReac Swelling Verified 08/10/24 14:36 Blistex) homosalate (From Blistex) AdvReac Swelling Verified 08/10/24 14:36 menthol (From Blistex) AdvReac Swelling Verified 08/10/24 14:36 meradimate (From Blistex) AdvReac Swelling Verified 08/10/24 14:36 octinoxate (From Blistex) AdvReac Swelling Verified 08/10/24 14:36 octyl salicylate (From AdvReac Swelling Verified 08/10/24 14:36 Blistex) oxybenzone (From Blistex) AdvReac Swelling Verified 08/10/24 14:36 padimate O (From Blistex) AdvReac Swelling Verified 08/10/24 14:36 petrolatum,hydrophilic (From AdvReac Swelling Verified 08/10/24 14:36 Blistex) phenol (From Blistex) AdvReac Swelling Verified 08/10/24 14:36 tetracycline AdvReac Rash Verified 08/10/24 14:36 Family History Father Diabetes Heart disease COPD (chronic obstructive pulmonary disease) Hypertension Mother Diabetes Heart disease COPD (chronic obstructive pulmonary disease) Cancer Sister Heart disease Thyroid disorder Surgical History History of esophagogastroduodenoscopy (EGD) Hx of colonoscopy History of carpal tunnel surgery Hx of surgical procedure Hx of tooth extraction Hx of breast surgery History of right breast biopsy (~11/2021) History of intestinal surgery History of lumpectomy of right breast Hx of appendectomy Hx of repair of right rotator cuff Hx of bilateral oophorectomy Hx of hysterectomy Social History household members: spouse housing: other details: homeless lives in [facility] Smoking Status: Never smoker alcohol intake: never substance use type: does not use ROS Constitutional Constitutional: Denies fatigue, fever(s), poor appetite, weight gain or weight loss Gastrointestinal Gastrointestinal: Denies belching, bloating, change in bowel habits, change in stool character, chewing difficulty, coffee ground emesis, constipation, cramping, diarrhea, dyspepsia, dysphagia, early satiety, excessive flatus, fecalincontinence, heartburn, hematemesis, hematochezia, hemorrhoids, loose stools, melena, nausea, odynophagia, rectal bleeding, tenesmus, vomiting or weight changes Vital Signs Vital Signs Vital Signs: 08/13/24 06:40 08/13/24 06:41 Temperature 98.2 F Temperature Source Temporal Pulse Rate 74 Respiratory Rate 16 Respiratory Pattern Normal Blood Pressure 140/75 H Blood Pressure Mean 96 Blood Pressure Source Monitor Blood Pressure Position Semi-Fowlers Blood Pressure Location Right Arm Pulse Ox 99 Oxygen Delivery Method Room Air Weight Weight: 140 lb 1.6 oz Body Mass Index (BMI) 25.6 Physical Exam Const alert, oriented x3, no apparent distress and healthy appearing General Appearance: cooperative GI normal to inspection, nondistended, normoactive bowel sounds, soft to palpation,non-tender and non-distended Percussion: normal to percussion Rectal Exam: deferred Assessment & Plan Assessment/Plan (1) Esophageal varices: QUALIFIERS: Esophageal varices type: unspecified type Esophageal varices bleeding: without bleeding Qualified Code(s): I85.00 - Esophageal varices without bleeding PLAN: Assessment and Plan Assessment and Plan (1) Elevated alkaline phosphatase level: Status: Acute (2) Hepatomegaly: Status: Acute (3) SS-A antibody positive: Status: Acute (4) Nausea: Status: Acute (5) Esophageal varices: Status: Acute Qualifiers: Esophageal varices type: unspecified type Esophageal varices bleeding: without bleeding Qualified Code(s): I85.00 - Esophageal varices without bleeding (6) Difficulty swallowing: Status: Acute Qualifiers: Dysphagia type: esophageal phase Qualified Code(s): R13.19 - Other dysphagia (7) Traction diverticulum of esophagus: Status: Acute Orders: Orders Liver Profile 06/14/24 R11.0 - Nausea, R16.0 - Hepatomegaly, not elsewhere classified, R74.8 - Abnormal levels of other serum enzymes, R76.8 - Other specified abnormal immunological findings in serum GGTP 06/14/24 R11.0 - Nausea, R16.0 - Hepatomegaly, not elsewhere classified, R74.8 - Abnormal levels of other serum enzymes, R76.8 - Other specified abnormalimmunological findings in serum Abdomen Limited 06/14/24 I85.00 - Esophageal varices without bleeding Esophagus Dual Contrast Today K22.5 - Diverticulum of esophagus, acquired, R13.10 - Dysphagia, unspecified Plan 58y/o female presents for follow-up. She was last seen by LILLY Pulido on 03/12/2024 for complaints of N/V on and office June 2023. She had initially noted improvement with discontinuing Trulicity. Colonoscopy and EGD performed July 2023 ([facility]) revealed medium HH and grade II esophageal varices.Due to recurrent N/V she underwent an EGD with Dr. Smith 04/22/2024 which revealed Grade C esophagitis and biopsies were negative for Chiu's and H. pylori. No varices were reported on this exam. In terms of esophageal varices noted on July 2023 EGD she underwent an ABD US which revealed hepatomegaly, Elastography revealed a low risk kPa of 3.3. Her labs do reveal an ALP elevationthat dates back to July 2023 ranging from 144-206. AST was minimally elevated July 2023. She continues to complain of nausea and takes Ondansetron a couple times a week.She reports discontinuing metoclopramide one month ago, as this did not improve her symptoms. She complains of dysphagia in the mid chest with emesis to dislodge. She reportsthe emesis she is experiencing is not associated with nausea. She reports a remote history of esophageal dilation, reporting she did well until 3 years ago.UGI performed 05/27/2023 revealed a small traction diverticulum in the distal esophagus. Diverticulum was not noted on EGD performed July or April 2024. Irecommend repeating esophageal imaging at this time (Esophagram) and pending findings possible CT chest. I do not feel a GES Is needed at this time. She continues to complain of chronic abdominal pain, improved with dicyclomine TID. She complains of chronic joint pain, weakness with recent falls and was taking IBU 800mg QID for four months. She reports decreasing this dose to 600mg PRN three weeks ago. We have discussed high doses of IBU is likely what was contributing to Grade C esophagitis noted on April 2024 EGD. She remains on Omeprazole 40mg BID and will repeat EHD to assess mucosal healing. In terms of joint pain, weakness, and skin lesions with SS-A/Ro IgG Ab 03/25/2024 elevated 2.4 she is scheduled to see Rheumatology this Friday at [facility]. ALP was 206 on most recent labs from 04/19/2024. ABD US revealed hepatomegaly. EGD performed July 2023 with Grade II esophageal varices. Autoimmune and infectious work-up negative except as noted above. She reports a family history of liver disease in her brother. I have ordered additional labs that she will have completed at [facility] this Friday. She will also schedule a liver doppler. Patient Instructions: Avoid ALL Ibuprofen and non-steroidal medications Continue Omeprazole twice a day Esophagram for traction diverticulum noted on prior UGI and ongoing dysphagia Repeat EGD - f/u Grade C esophagitis Elevated ALP with esophageal varices on July EGD - Liver Doppler Liver panel GGT 08/13/24 0702 <Electronically signed by James Smith DO> Cosigner Signature (if applicable): CC: [facility]; James Smith DO~ Signed [facility] Work Phone: Hospital Discharge instructions Additional Instructions Keep thumb wound clean and bandaged. Clean with soap and water, pat dry, put a new Band-Aid on it every night, at least once daily.[facility] Work Phone: Hospital Discharge instructions Additional Instructions Cardiac work-up negative. Follow-up with your doctor further testing as outpatient. Return if any worsening symptoms.[facility] Work Phone: Hospital Discharge instructions Additional Instructions Take zofran as needed for nausea and vomiting, sip fluids throughout the day, slowly introduce bland [facility] Work Phone: Hospital Discharge instructions Additional Instructions Your labs look good today. Zofran as needed for nausea and vomiting. Follow-up if not improving.[facility] Work Phone: Reason for referral (narrative)* Diagnostic Procedure Only (Routine) - Closed Specialty Diagnoses / Procedures [facility] Referred To Contact XR IMAG[facility] Diagnoses Inflammatory arthritis Psoriasis Chronic bilateral low back pain without sciatica Procedures XR LUMBAR GENERAL 3V AP/LAT/L5-S1 RADEX SPINE LUMBOSACRAL 2/3 VIEWS Mimi Lott APRN.PLASTER HELPER [address] [place] [address] X[facility] [place] [address] Referral ID Status Reason Start Date Expiration Date V isits Requested Visits Authorized [id number] Closed Auto-Generate d Referral 06/17/2024 07/17/2025 1 1 * Diagnostic Procedure Only (Routine) - Closed Specialty Diagnoses / Procedures [facility] Referred To Contact XR IMAGING Diagnoses Inflammatory arthritis Psoriasis Procedures XR KNEE GENERAL 4V AP BOTH/PA BOTH/LAT/MERC BILATERAL RADIOLOGIC EXAM KNEE COMPLETE 4/MORE VIEWS Mimi Lott APRN.PLASTER HELPER [address] [place] [id number] [facility] [place] [address] Referral ID Status Reason Start Date Expiration Date V isits Requested Visits Authorized [id number] Closed Auto-Generate d Referral 06/17/2024 07/17/2025 1 1 * Diagnostic Procedure Only (Routine) - Closed Specialty Diagnoses / Procedures Referred By Contac t Referred To Contact XR IMAGING Diagnoses Inflammatory arthritis Psoriasis Chronic bilateral low back pain without sciatica Procedures XR SACROILIAC JOINTS 2V AP PELVIS/FERGUESON RADIOLOGIC EXAMINATION SACROILIAC JNTS <3 VIEWS Mimi Lott APRN.PLASTER HELPER [address] [place] [phone] X[place] Imaging [place] [facility] Referral ID Status Reason Start Date Expiration Date V isits Requested Visits Authorized [id number] Closed Auto-Generate d Referral 06/17/2024 07/17/2025 1 1 * Diagnostic Procedure Only (Routine) - Closed Specialty Diagnoses / Procedures Referred By Contac t Referred To Contact XR IMAGING Diagnoses Inflammatory arthritis Psoriasis Procedures XR HAND GENERAL 3V PA/LAT/OBL BILATERAL RADEX HAND MINIMUM 3 VIEWS Mimi Lott APRN.PLASTER HELPER [address] [place] [phone] Xr Imaging [id number] Referral ID Status Reason Start Date Expiration Date V isits Requested Visits Authorized [id number] Closed Auto-Generate d Referral 06/17/2024 07/17/2025 1 1 [facility] for referral (narrative)* Diagnostic Procedure Only (Routine) - Closed Specialty Diagnoses / Procedures Referred By Contac t Referred To Contact XR IMAGING Diagnoses Inflammatory arthritis Psoriasis Chronic bilateral low back pain without sciatica Procedures XR LUMBAR GENERAL 3V AP/LAT/L5-S1 RADEX SPINE LUMBOSACRAL 2/3 VIEWS Mimi Lott APRN.PLASTER HELPER [address] [place] [phone] [place] [address] Referral ID Status Reason Start Date Expiration Date V isits Requested Visits Authorized [id number] Closed Auto-Generate d Referral 06/17/2024 07/17/2025 1 1 * Diagnostic Procedure Only (Routine) - Closed Specialty Diagnoses / Procedures Referred By Contac t Referred To Contact XR IMAGING Diagnoses Inflammatory arthritis Psoriasis Procedures XR KNEE GENERAL 4V AP BOTH/PA BOTH/LAT/MERC BILATERAL RADIOLOGIC EXAM KNEE COMPLETE 4/MORE VIEWS Mimi Lott APRN.PLASTER HELPER [address] [place] [address] Xr Imaging [place] [facility] Referral ID Status Reason Start Date Expiration Date V isits Requested Visits Authorized [id number] Closed Auto-Generate d Referral 06/17/2024 07/17/2025 1 1 * Diagnostic Procedure Only (Routine) - Closed Specialty Diagnoses / Procedures Referred By Contac t Referred To Contact XR IMAGING Diagnoses Inflammatory arthritis Psoriasis Chronic bilateral low back pain without sciatica Procedures XR SACROILIAC JOINTS 2V AP PELVIS/FERGUESON RADIOLOGIC EXAMINATION SACROILIAC JNTS <3 VIEWS Mimi Lott APRN.PLASTER HELPER [address] [place] [address] X[facility] [place] [address] Referral ID Status Reason Start Date Expiration Date V isits Requested Visits Authorized [id number] Closed Auto-Generate d Referral 06/17/2024 07/17/2025 1 1 * Diagnostic Procedure Only (Routine) - Closed Specialty Diagnoses / Procedures Referred By Contac t Referred To Contact XR IMAGING Diagnoses Inflammatory arthritis Psoriasis Procedures XR HAND GENERAL 3V PA/LAT/OBL BILATERAL RADEX HAND MINIMUM 3 VIEWS Mimi Lott APRN.PLASTER HELPER [address] [place] [phone] [place] [address] Referral ID Status Reason Start Date Expiration Date V isits Requested Visits Authorized [id number] Closed Auto-Generate d Referral 06/17/2024 07/17/2025 1 1 [facility] Summary Purpose Family History No Family History Records Found Relationship Condition Age at Onset Recorded Date/T terrence father Diabetes mellitus Unknown mother Diabetes mellitus Unknown Relationship Condition Age at Onset Recorded Date/T terrence father Diabetes mellitus Unknown Cardiac disease Unknown mother Diabetes mellitus Unknown sister Cardiac disease Unknown Disorder of thyroid Unknown Relationship Condition Age at Onset Recorded Date/T terrence father Diabetes mellitus Unknown Cardiac disease Unknown Chronic obstructive pulmonary disease Unk nown Hypertension Unknown mother Diabetes mellitus Unknown Malignant neoplasm Unknown sister Cardiac disease Unknown Disorder of thyroid Unknown Advance Directives No Advanced Directives Records Found Advance Directive Response Recorded Date/ Time Living Will No August 26, 2021 11:35am Power of Personnel Counselor No August 26 11:35am Advance Directive Response Recorded Date/ Time Living Will No October 04, 2021 1 0:19am Power of Personnel Counselor No October 04, 2021 10:19am Advance Directive Response Recorded Date/ Time Living Will No October 04, 2021 1 :13pm Power of Personnel Counselor No October 04, 2021 1:13pm Advance Directive Response Recorded Date/ Time Living Will No November 05, 2021 2:24pm Power of Personnel Counselor No November 05 2:24pm Advance Directive Response Recorded Date/ Time Living Will No December 10, 2021 3:15pm Power of Personnel Counselor No December 10 3:15pm Advance Directive Response Recorded Date/ Time Living Will No February 04, 2022 8:13am Power of Personnel Counselor No January 8:13am Advance Directive Response Recorded Date/ Time Living Will No February 21 11:09am Power of Personnel Counselor No February 21 11:09am Advance Directive Response Recorded Date/ Time Living Will No March 06 3:46pm Power of Personnel Counselor No March 06, 2022 3:46pm Advance Directive Response Recorded Date/ Time Living Will No March 06 8:08pm Power of Personnel Counselor No March 06, 2022 8:08pm Advance Directive Response Recorded Date/ Time Living Will No March 28 022 3:31pm Power of Personnel Counselor No March 28, 2022 3:31pm Advance Directive Response Recorded Date/ Time Living Will No Panda 21st, 2 022 12:56pm Power of Personnel Counselor No May 08, 2022 12:56pm Advance Directive Response Recorded Date/ Time Living Will No June 08 10:39pm Power of Personnel Counselor No June 08, 2022 10:39pm Advance Directive Response Recorded Date/ Time Living Will No June 14 9:58am Power of Personnel Counselor No June 14, 2022 9:58am Advance Directive Response Recorded Date/ Time Living Will No July 15, 2 023 11:01am Power of Personnel Counselor No July 15, 2022 11:01am Advance Directive Response Recorded Date/ Time Living Will No July 15, 2 023 12:01pm Power of Personnel Counselor No July 15, 2022 12:01pm Advance Directive Response Recorded Date/ Time Living Will No November 25, 2022 2:07pm Power of Personnel Counselor No November 25 2:07pm Advance Directive Response Recorded Date/ Time Living Will No January 01 11:23am Power of Personnel Counselor No January 01, 2 023 11:23am Advance Directive Response Recorded Date/ Time Living Will No February 28 12:46pm Power of Personnel Counselor No February 28, 2023 12:46pm Advance Directive Response Recorded Date/ Time Living Will No April 08, 2 023 2:58pm Power of Personnel Counselor No April 08, 2023 2:58pm Advance Directive Response Recorded Date/ Time Living Will No July 07, 2 024 7:20am Power of Personnel Counselor No July 07, 2023 7:20am Advance Directive Response Recorded Date/ Time Living Will No July 24, 2023 12:45pm Power of Personnel Counselor No July 23 12:45pm Advance Directive Response Recorded Date/ Time Living Will No July 24, 2023 1:45pm Power of Personnel Counselor No July 23 1:45pm Advance Directive Response Recorded Date/ Time Living Will No August 06, 2023 10:34am Power of Personnel Counselor No August 05 10:34am Advance Directive Response Recorded Date/ Time Living Will No August 18, 2023 9:25am Power of Personnel Counselor No August 17 9:25am Advance Directive Response Recorded Date/ Time Living Will No March 01 1:38pm Power of Personnel Counselor No March 01, 2024 1:38pm Living Will No April 19 7:06pm Power of Personnel Counselor No April 19, 2024 7:06pm Living Will No April 19 9:36am Power of Personnel Counselor No April 19, 2024 9:36am Living Will No April 14, 2:09pm Power of Personnel Counselor No April 14, 2024 2:09pm Advance Directive Response Recorded Date/ Time Living Will No March 01 2:38pm Do you have a Healthcare Power of Personnel Counselor? No March 01, 2024 2:38pm Living Will No April 19 8:06pm Do you have a Healthcare Power of Personnel Counselor? No April 19, 2024 8:06pm Living Will No April 19 10:36am Do you have a Healthcare Power of Personnel Counselor? No April 19, 2024 10:36am Living Will No August 10, 2024 2:40pm Do you have a Healthcare Power of Personnel Counselor? No August 10, 2024 2:40pm Advance Directive Response Recorded Date/ Time Living Will No March 01 2:38pm Do you have a Healthcare Power of Personnel Counselor? No March 01, 2024 2:38pm Living Will No April 19 10:36am Do you have a Healthcare Power of Personnel Counselor? No April 19, 2024 10:36am Living Will No August 10, 2024 2:40pm Do you have a Healthcare Power of Personnel Counselor? No August 10, 2024 2:40pm Advance Directive Response Recorded Date/ Time Living Will No March 01 2:38pm Do you have a Healthcare Power of Personnel Counselor? No March 01, 2024 2:38pm Living Will No August 10, 2024 2:40pm Do you have a Healthcare Power of Personnel Counselor? No August 10, 2024 2:40pm Advance Directive Response Recorded Date/ Time Living Will No August 10, 2024 2:40pm Do you have a Healthcare Power of Personnel Counselor? No August 10, 2024 2:40pm Chief Complaint and Reason for Visit Chief Complaint ASTHMA EXACERBATION ASTHMA EXACERBATION ASTHMA HEADACHE Reason for Visit Hypoxemia Status asthmaticus Chief Complaint ASTHMA EXACERBATION ASTHMA EXACERBATION ASTHMA HEADACHE RIGHT AXILLARY ABSCESS Reason for Visit Hypoxemia Status asthmaticus Chief Complaint ASTHMA EXACERBATION ASTHMA EXACERBATION ASTHMA HEADACHE RIGHT AXILLARY ABSCESS RIGHT AXILLARY ABSCESS RIGHT AXILLARY ABSCESS RIGHT AXILLARY ABSCESS RIGHT AXILLARY ABSCESS RIGHT AXILLARY ABSCESS RIGHT AXILLARY ABSCESS RIGHT AXILLARY ABSCESS RIGHT AXILLARY ABSCESS RIGHT AXILLARY ABSCESS RIGHT AXILLARY ABSCESS RIGHT AXILLARY ABSCESS nurse visit - I & D wound- hospital favor Reason for Visit Hypoxemia Status asthmaticus Abscess of right axilla Mastitis, right, acute Uncontrolled blood glucose Chief Complaint ASTHMA EXACERBATION ASTHMA EXACERBATION ASTHMA HEADACHE RIGHT AXILLARY ABSCESS RIGHT AXILLARY ABSCESS RIGHT AXILLARY ABSCESS RIGHT AXILLARY ABSCESS RIGHT AXILLARY ABSCESS RIGHT AXILLARY ABSCESS RIGHT AXILLARY ABSCESS RIGHT AXILLARY ABSCESS RIGHT AXILLARY ABSCESS RIGHT AXILLARY ABSCESS RIGHT AXILLARY ABSCESS RIGHT AXILLARY ABSCESS nurse visit - I & D wound- hospital favor R AXILLARY ABSCESS 10/09 R AXILLARY ABSCESS 10/09 Reason for Visit Hypoxemia Status asthmaticus Abscess of right axilla Mastitis, right, acute Uncontrolled blood glucose Abscess of right axilla Abscess of right axilla Breast mass, right Yeast infection of the skin Chief Complaint ASTHMA EXACERBATION ASTHMA HEADACHE RIGHT AXILLARY ABSCESS RIGHT AXILLARY ABSCESS RIGHT AXILLARY ABSCESS RIGHT AXILLARY ABSCESS RIGHT AXILLARY ABSCESS RIGHT AXILLARY ABSCESS RIGHT AXILLARY ABSCESS RIGHT AXILLARY ABSCESS RIGHT AXILLARY ABSCESS RIGHT AXILLARY ABSCESS RIGHT AXILLARY ABSCESS RIGHT AXILLARY ABSCESS nurse visit - I & D wound- hospital favor R AXILLARY ABSCESS 10/09 R AXILLARY ABSCESS 10/09 SCREENING Abscess of right axilla; review mammogram Reason for Visit Abscess of right axi lla Mastitis, right, acute Uncontrolled blood glucose Abscess of right axilla Abscess of right axilla Breast mass, right Yeast infection of the skin Abscess of right axilla Breast mass, right Screening mammogram for breast cancer Chief Complaint ASTHMA HEADACHE RIGHT AXILLARY ABSCESS RIGHT AXILLARY ABSCESS RIGHT AXILLARY ABSCESS RIGHT AXILLARY ABSCESS RIGHT AXILLARY ABSCESS RIGHT AXILLARY ABSCESS RIGHT AXILLARY ABSCESS RIGHT AXILLARY ABSCESS RIGHT AXILLARY ABSCESS RIGHT AXILLARY ABSCESS RIGHT AXILLARY ABSCESS RIGHT AXILLARY ABSCESS nurse visit - I & D wound- hospital favor R AXILLARY ABSCESS 10/09 R AXILLARY ABSCESS 10/09 SCREENING Abscess of right axilla; review mammogram ABNORMAL MAMMO Reason for Visit Abscess of right axi lla Mastitis, right, acute Uncontrolled blood glucose Abscess of right axilla Abscess of right axilla Breast mass, right Yeast infection of the skin Abscess of right axilla Breast mass, right Screening mammogram for breast cancer Chief Complaint ASTHMA HEADACHE RIGHT AXILLARY ABSCESS RIGHT AXILLARY ABSCESS RIGHT AXILLARY ABSCESS RIGHT AXILLARY ABSCESS RIGHT AXILLARY ABSCESS RIGHT AXILLARY ABSCESS RIGHT AXILLARY ABSCESS RIGHT AXILLARY ABSCESS RIGHT AXILLARY ABSCESS RIGHT AXILLARY ABSCESS RIGHT AXILLARY ABSCESS RIGHT AXILLARY ABSCESS nurse visit - I & D wound- hospital favor R AXILLARY ABSCESS 10/09 R AXILLARY ABSCESS 10/09 SCREENING Abscess of right axilla; review mammogram ABNORMAL MAMMO RT BREAST BIOPSY R BREAST BIOPSY Reason for Visit Abscess of right axi lla Mastitis, right, acute Uncontrolled blood glucose Abscess of right axilla Abscess of right axilla Breast mass, right Yeast infection of the skin Abscess of right axilla Breast mass, right Screening mammogram for breast cancer Mass of right axilla Chief Complaint ASTHMA HEADACHE RIGHT AXILLARY ABSCESS RIGHT AXILLARY ABSCESS RIGHT AXILLARY ABSCESS RIGHT AXILLARY ABSCESS RIGHT AXILLARY ABSCESS RIGHT AXILLARY ABSCESS RIGHT AXILLARY ABSCESS RIGHT AXILLARY ABSCESS RIGHT AXILLARY ABSCESS RIGHT AXILLARY ABSCESS RIGHT AXILLARY ABSCESS RIGHT AXILLARY ABSCESS nurse visit - I & D wound- hospital favor R AXILLARY ABSCESS 10/09 R AXILLARY ABSCESS 10/09 SCREENING Abscess of right axilla; review mammogram ABNORMAL MAMMO RT BREAST BIOPSY R BREAST BIOPSY ABSCESS Reason for Visit Abscess of right axi lla Mastitis, right, acute Uncontrolled blood glucose Abscess of right axilla Abscess of right axilla Breast mass, right Yeast infection of the skin Abscess of right axilla Breast mass, right Screening mammogram for breast cancer Mass of right axilla Chief Complaint RIGHT AXILLARY ABSCE SS RIGHT AXILLARY ABSCESS RIGHT AXILLARY ABSCESS RIGHT AXILLARY ABSCESS RIGHT AXILLARY ABSCESS RIGHT AXILLARY ABSCESS RIGHT AXILLARY ABSCESS nurse visit - I & D wound- hospital favor R AXILLARY ABSCESS 10/09 R AXILLARY ABSCESS 10/09 SCREENING Abscess of right axilla; review mammogram ABNORMAL MAMMO RT BREAST BIOPSY R BREAST BIOPSY ABSCESS ANXIETY Reason for Visit Abscess of right axi lla Mastitis, right, acute Uncontrolled blood glucose Abscess of right axilla Abscess of right axilla Breast mass, right Yeast infection of the skin Abscess of right axilla Breast mass, right Screening mammogram for breast cancer Mass of right axilla Chief Complaint R AXILLARY ABSCESS SCREENING Abscess of right axilla; review mammogram ABNORMAL MAMMO RT BREAST BIOPSY R BREAST BIOPSY ABSCESS ANXIETY asthma, anxiety Reason for Visit Abscess of right axi lla Breast mass, right Yeast infection of the skin Abscess of right axilla Breast mass, right Screening mammogram for breast cancer Mass of right axilla Chief Complaint SCREENING Abscess of right axilla; review mammogram ABNORMAL MAMMO RT BREAST BIOPSY R BREAST BIOPSY ABSCESS ANXIETY asthma, anxiety COVID Reason for Visit Abscess of right axi lla Breast mass, right Screening mammogram for breast cancer Mass of right axilla Asthma exacerbation COVID-19 Hypoxia Chief Complaint SCREENING Abscess of right axilla; review mammogram ABNORMAL MAMMO RT BREAST BIOPSY R BREAST BIOPSY ABSCESS ANXIETY asthma, anxiety ASTHMA EXACERBATION ASTHMA EXACERBATION Reason for Visit Abscess of right axi lla Breast mass, right Screening mammogram for breast cancer Mass of right axilla Asthma exacerbation COVID-19 Hypoxia Chief Complaint ABSCESS ANXIETY asthma, anxiety ASTHMA EXACERBATION ASTHMA EXACERBATION GENERAL ILLNESS Reason for Visit COVID-19 Asthma exacerbation Hypoxia Chief Complaint ANXIETY asthma, anxiety ASTHMA EXACERBATION ASTHMA EXACERBATION GENERAL ILLNESS ABSCESS Reason for Visit COVID-19 Asthma exacerbation Hypoxia Chief Complaint asthma, anxiety ASTHMA EXACERBATION ASTHMA EXACERBATION GENERAL ILLNESS ABSCESS CHEST PAIN Reason for Visit COVID-19 Asthma exacerbation Hypoxia Chief Complaint asthma, anxiety ASTHMA EXACERBATION ASTHMA EXACERBATION GENERAL ILLNESS ABSCESS CHEST PAIN BACK PAIN Reason for Visit COVID-19 Asthma exacerbation Hypoxia Chief Complaint GENERAL ILLNESS ABSCESS CHEST PAIN BACK PAIN wound check Chief Complaint wound check Chief Complaint NECK RM 5 GENERAL ILLNESS Reason for Visit Herniated interverte bral disc of lumbar spine Chief Complaint NECK RM 5 GENERAL ILLNESS PAIN LEFT SHOULDER Reason for Visit Herniated interverte bral disc of lumbar spine Chief Complaint NECK RM 5 GENERAL ILLNESS PAIN LEFT SHOULDER abscess Reason for Visit Herniated interverte bral disc of lumbar spine Chief Complaint NECK RM 5 GENERAL ILLNESS PAIN LEFT SHOULDER abscess LBP/W/SCIATICA/PT HAS RX DIABETIC POLYNEUROPATHY DIABETIC POLYNEUROPATHY BACK Reason for Visit Herniated interverte bral disc of lumbar spine Chief Complaint abscess 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 BL HANDS BL HANDS LBP/W/SCIATICA/PT HAS RX Bilateral Endoscopic Carpal Tunnel Bilateral Endoscopic Carpal Tunnel Reason for Visit Bilateral carpal yaa kelly syndrome Bilateral carpal tunnel syndrome Bilateral carpal tunnel syndrome Chief Complaint DIABETIC POLYNEUROPA THY 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 BL HANDS BL HANDS LBP/W/SCIATICA/PT HAS RX Bilateral Endoscopic Carpal Tunnel Bilateral Endoscopic Carpal Tunnel bilateral wrist bilateral wrist Gastroesophageal reflux disease (GERD) SCREENING bilateral hand BL WRIST Reason for Visit Bilateral carpal yaa kelly syndrome Bilateral carpal tunnel syndrome Bilateral carpal tunnel syndrome Bilateral carpal tunnel syndrome Bilateral carpal tunnel syndrome Status post dilation of esophageal narrowing Gastroesophageal reflux disease Bilateral carpal tunnel syndrome Bilateral carpal tunnel syndrome Chief Complaint DIABETIC POLYNEUROPA THY 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 BL HANDS BL HANDS LBP/W/SCIATICA/PT HAS RX Bilateral Endoscopic Carpal Tunnel Bilateral Endoscopic Carpal Tunnel bilateral wrist bilateral wrist Gastroesophageal reflux disease (GERD) SCREENING bilateral hand BL WRIST GERD Reason for Visit Bilateral carpal yaa kelly syndrome Bilateral carpal tunnel syndrome Bilateral carpal tunnel syndrome Bilateral carpal tunnel syndrome Bilateral carpal tunnel syndrome Status post dilation of esophageal narrowing Gastroesophageal reflux disease Bilateral carpal tunnel syndrome Bilateral carpal tunnel syndrome Chief Complaint BL HANDS LBP/W/SCIATICA/PT HAS RX Bilateral Endoscopic Carpal Tunnel Bilateral Endoscopic Carpal Tunnel bilateral wrist bilateral wrist Gastroesophageal reflux disease (GERD) SCREENING bilateral hand BL WRIST GERD wrist pain BL WRIST ABSCESS Reason for Visit Bilateral carpal yaa kelly syndrome Bilateral carpal tunnel syndrome Bilateral carpal tunnel syndrome Bilateral carpal tunnel syndrome Status post dilation of esophageal narrowing Gastroesophageal reflux disease Bilateral carpal tunnel syndrome Bilateral carpal tunnel syndrome Bilateral carpal tunnel syndrome Bilateral carpal tunnel syndrome Chief Complaint Bilateral Endoscopic Carpal Tunnel Bilateral Endoscopic Carpal Tunnel bilateral wrist bilateral wrist Gastroesophageal reflux disease (GERD) SCREENING bilateral hand BL WRIST GERD wrist pain BL WRIST ABSCESS BILAT WRIST ABD Reason for Visit Bilateral carpal yaa kelly syndrome Bilateral carpal tunnel syndrome Bilateral carpal tunnel syndrome Status post dilation of esophageal narrowing Gastroesophageal reflux disease Bilateral carpal tunnel syndrome Bilateral carpal tunnel syndrome Bilateral carpal tunnel syndrome Bilateral carpal tunnel syndrome Bilateral carpal tunnel syndrome Chief Complaint Bilateral Endoscopic Carpal Tunnel Bilateral Endoscopic Carpal Tunnel bilateral wrist bilateral wrist Gastroesophageal reflux disease (GERD) SCREENING bilateral hand BL WRIST GERD wrist pain BL WRIST ABSCESS BILAT WRIST ABD abd pain Reason for Visit Bilateral carpal yaa kelly syndrome Bilateral carpal tunnel syndrome Bilateral carpal tunnel syndrome Status post dilation of esophageal narrowing Gastroesophageal reflux disease Bilateral carpal tunnel syndrome Bilateral carpal tunnel syndrome Bilateral carpal tunnel syndrome Bilateral carpal tunnel syndrome Bilateral carpal tunnel syndrome Chief Complaint Admit Date ESOPHOGEAL VARICES/2 ordering doctors pa per & eord March 25, 2024 7:45am LEFT HIP April 06, 2024 1:55pm RIGHT KNEE April 09, 2024 1:43pm ALLERGIC April 14, 2024 1:41pm N/V April 19, 2024 6 :04pm OSTEO May 11, 2024 2:06pm 3 M FU June 14, 2024 1 :56pm Reason for Visit Admit Date Greater trochanteric bursitis of left hi p April 06, 2024 1:55pm Left hip pain April 06, 2024 1:55pm Osteoarthritis of left hip March 1:55pm Osteoarthritis of right knee April 092023 1:43pm Right knee pain April 09, 2024 1:43pm Difficulty swallowing June 14, 2024 1:56pm Elevated alkaline phosphatase level Sathya mancini 2024 1:56pm Esophageal varices June 14, 2024 1 :56pm Hepatomegaly June 14, 2024 1 :56pm Nausea June 14, 2024 1 :56pm SS-A antibody positive June 14 1:56pm Traction diverticulum of esophagus Luis 2024 1:56pm Chief Complaint Admit Date N/V April 19, 2024 6 :04pm OSTEO May 11, 2024 2:06pm 3 M FU June 14, 2024 1 :56pm Reason for Visit Admit Date Difficulty swallowing June 14, 2024 1:56pm Elevated alkaline phosphatase level Sathya torresy 2024 1:56pm Esophageal varices June 14, 2024 1 :56pm Hepatomegaly June 14, 2024 1 :56pm Nausea June 14, 2024 1 :56pm SS-A antibody positive June 14 1:56pm Traction diverticulum of esophagus Luis 2024 1:56pm Esophageal varices August 13, 2024 5:4 8am Chief Complaint Admit Date OSTEO May 11, 2024 2:06pm 3 M FU June 14, 2024 1 :56pm ESOPHAGEAL VARICES August 16, 2024 7:2 2am BL HIPS/RT KNEE August 17, 2024 9:35 am Room 2 August 17, 2024 10:1 3am Reason for Visit Admit Date Difficulty swallowing June 14, 2024 1:56pm Elevated alkaline phosphatase level Sathya torresy 2024 1:56pm Esophageal varices June 14, 2024 1 :56pm Hepatomegaly June 14, 2024 1 :56pm Nausea June 14, 2024 1 :56pm SS-A antibody positive June 14 1:56pm Traction diverticulum of es[facility] 2024 1:56pm Esophageal varices August 13, 2024 5:4 8am Greater trochanteric bursitis August 17, 2024 9:35am Low back pain at multiple sites August 9:35am Piriformis muscle pain August 17, 2024 9 :35am Rash August 17, 2024 9:35 am Chief Complaint Admit Date OSTEO May 11, 2024 2:06pm 3 M FU June 14, 2024 1 :56pm ESOPHAGEAL VARICES August 16, 2024 7:2 2am BL HIPS/RT KNEE August 17, 2024 9:35 am Room 2 August 17, 2024 10:1 3am DIVERTICULM August 24, 2024 7:11 am Chief Complaint Admit Date OSTEO May 11, 2024 2:06pm 3 M FU June 14, 2024 1 :56pm ESOPHAGEAL VARICES August 16, 2024 7:2 2am BL HIPS/RT KNEE August 17, 2024 9:35 am Room 2 August 17, 2024 10:1 3am DIVERTICULM August 24, 2024 7:11 am Test Result September 02, 2024 1:5 4pm Reason for Visit Admit Date Difficulty swallowing June 14, 2024 1:56pm Elevated alkaline phosphatase level Sathya mancini 2024 1:56pm Esophageal varices June 14, 2024 1 :56pm Hepatomegaly June 14, 2024 1 :56pm Nausea June 14, 2024 1 :56pm SS-A antibody positive June 14 1:56pm Traction diverticulum of esophagus Carmencita brooks 2024 1:56pm Esophageal varices August 13, 2024 5:4 8am Greater trochanteric bursitis August 17, 2024 9:35am Low back pain at multiple sites August 9:35am Piriformis muscle pain August 17, 2024 9 :35am Rash August 17, 2024 9:35 am Gastric reflux September 02, 2024 1:5 4pm Nausea & vomiting September 02, 2024 1:5 4pm Chief Complaint Admit Date ESOPHAGEAL VARICES August 16, 2024 7:2 2am BL HIPS/RT KNEE August 17, 2024 9:35 am Room 2 August 17, 2024 10:1 3am DIVERTICULM August 24, 2024 7:11 am Test Result September 02, 2024 1:5 4pm Rash November 08, 2024 12:0 9pm Reason for Visit Admit Date Esophageal varices August 13, 2024 5:4 8am Greater trochanteric bursitis August 17, 2024 9:35am Low back pain at multiple sites August 9:35am Piriformis muscle pain August 17, 2024 9 :35am Rash August 17, 2024 9:35 am Gastric reflux September 02, 2024 1:5 4pm Nausea & vomiting September 02, 2024 1:5 4pm Rash November 08, 2024 12:0 9pm Reason for Referral Specialty Diagnoses / Procedures Referred By Asia t Referred To Contact Dermatology Diagnoses Rash and nonspecific skin eruption Procedures CONSULT TO DERMATOLOGY OFFICE/OUTPATIENT [facility] 60 MINUTES Mimi Lott, DIRECTOR OF GUIDANCE IN PUBLIC SCHOOLS.PLASTER HELPER [address] [place] [address] Referral ID Status Reason Start Date Expiration Date Visits Requested Visits Authorized [id number] Authorized PCP Requested Referral 06/21/2024 06/21/2025 1 1 Additional Source Comments <item> Privacy Markings (unrecogniz ed section and content) Section Author: Nancie Rausch PROHIBITION ON REDISCLOSURE OF CONFIDENTIAL INFORMATION This notice accompanies a disclosure of information concerning a client made to you with the consent of such client. INFORMATION SOURCE (unrecogn ized section and content) DATE CREATED AUTHOR 09/24/2020 [facility] DATE CREATED AUTHOR AUTHOR'S ORGANIZ ATION 06/25/2021 [facility] DATE CREATED AUTHOR AUTHOR'S ORGANIZ ATION 10/27/2022 [facility] DATE CREATED AUTHOR AUTHOR'S ORGANIZ ATION 06/23/2024 [facility] DATE CREATED AUTHOR AUTHOR'S ORGANIZ ATION 09/11/2024 [facility] DATE CREATED AUTHOR AUTHOR'S ORGANIZ ATION 12/03/2024 [facility] Source Comments (unrecognize d section and content) In the event this informatio n is protected by the Federal Confidentiality of Alcohol and Drug Abuse Patient Records regulations: The Federal rules restrict any use of the information to criminally investigate or prosecute any alcohol or drug abuse patient.[facility] the event this information is protected by the Federal Confidentiality of Alcohol and Drug Abuse Patient Records regulations: The Federal rules restrict any use of the information to criminally investigate or prosecute any alcohol or drug abuse patient.[facility] Hospital[facility] the event this information is protected by the Federal Confidentiality of Alcohol and Drug Abuse Patient Records regulations: The Federal rules restrict any use of the information to criminally investigate or prosecute any alcohol or drug abuse patient.[facility] the event this information is protected by the Federal Confidentiality of Alcohol and Drug Abuse Patient Records regulations: The Federal rules restrict any use of the information to criminally investigate or prosecute any alcohol or drug abuse patient.[facility] HospitalIn the event this information is protected by the Federal Confidentiality of Alcohol and Drug Abuse Patient Records regulations: The Federal rules restrict any use of the information to criminally investigate or prosecute any alcohol or drug abuse patient.[facility] HospitalIn the event this information is protected by the Federal Confidentiality of Alcohol and Drug Abuse Patient Records regulations: The Federal rules restrict any use of the information to criminally investigate or prosecute any alcohol or drug abuse patient.[facility] HospitalIn the event this information is protected by the Federal Confidentiality of Alcohol and Drug Abuse Patient Records regulations: The Federal rules restrict any use of the information to criminally investigate or prosecute any alcohol or drug abuse patient.[facility] HospitalIn the event this information is protected by the Federal Confidentiality of Alcohol and Drug Abuse Patient Records regulations: The Federal rules restrict any use of the information to criminally investigate or prosecute any alcohol or drug abuse patient.[facility] HospitalIn the event this information is protected by the Federal Confidentiality of Alcohol and Drug Abuse Patient Records regulations: The Federal rules restrict any use of the information to criminally investigate or prosecute any alcohol or drug abuse patient.[facility] HospitalIn the event this information is protected by the Federal Confidentiality of Alcohol and Drug Abuse Patient Records regulations: The Federal rules restrict any use of the information to criminally investigate or prosecute any alcohol or drug abuse patient.[facility] HospitalIn the event this information is protected by the Federal Confidentiality of Alcohol and Drug Abuse Patient Records regulations: The Federal rules restrict any use of the information to criminally investigate or prosecute any alcohol or drug abuse patient.[facility] HospitalIn the event this information is protected by the Federal Confidentiality of Alcohol and Drug Abuse Patient Records regulations: The Federal rules restrict any use of the information to criminally investigate or prosecute any alcohol or drug abuse patient.[facility] HospitalIn the event this information is protected by the Federal Confidentiality of Alcohol and Drug Abuse Patient Records regulations: The Federal rules restrict any use of the information to criminally investigate or prosecute any alcohol or drug abuse patient.[facility] HospitalIn the event this information is protected by the Federal Confidentiality of Alcohol and Drug Abuse Patient Records regulations: The Federal rules restrict any use of the information to criminally investigate or prosecute any alcohol or drug abuse patient.[facility] HospitalIn the event this information is protected by the Federal Confidentiality of Alcohol and Drug Abuse Patient Records regulations: The Federal rules restrict any use of the information to criminally investigate or prosecute any alcohol or drug abuse patient.[facility] HospitalIn the event this information is protected by the Federal Confidentiality of Alcohol and Drug Abuse Patient Records regulations: The Federal rules restrict any use of the information to criminally investigate or prosecute any alcohol or drug abuse patient.[facility] HospitalIn the event this information is protected by the Federal Confidentiality of Alcohol and Drug Abuse Patient Records regulations: The Federal rules restrict any use of the information to criminally investigate or prosecute any alcohol or drug abuse patient.[facility] Goals (unrecognized section and content) Goals may be documented in a n alternate section Reason for Visit (unrecogniz ed section and content) Reason Onset Date Comments Refill Request 12/21/2021 Reason Comments Appointment Reason Comments Pain Bilateral hand and f oot pain x1 week, mass behind L ear x2 days Reason Comments Nausea Reason Comments Orders Reason Comments Consult Abnormal Lab Reason Comments Radio Gen A21 Specialty Diagnoses / Procedures Referred By Contac t Referred To Contact XR IMAGING Diagnoses Inflammatory arthritis Psoriasis Chronic bilateral low back pain without sciatica Procedures XR LUMBAR GENERAL 3V AP/LAT/L5-S1 RADEX SPINE LUMBOSACRAL 2/3 VIEWS Mimi Lott, DIRECTOR OF GUIDANCE IN PUBLIC [employer]OLS.PLASTER HELPER [address] [place] [address] Xr Imaging [id number] Referral ID Status Reason Start Date Expiration Date V isits Requested Visits Authorized [id number] Closed Auto-Generate d Referral 06/17/2024 07/17/2025 1 1 Care Teams (unrecognized sec tion and content) Team Status: Active Member Role Status Dates Dr. Carolyn West Primary Care Provider Active Team Status: Active Member Role Status Dates Dr. Carolyn West Primary Care Provider Active Taylor Fields [employer]URAL [employer]TER, AIRCRAFT STRUCTURAL FITTER-C Referring Provider, Other Pr ovider Active Dr. Kimberly Kovacs MD Attending Provider Active Team Status: Inactive Member Role Status Dates Buffalocarolin West Primary Care Provider, Referring P rovider Active Jonny Marino MD Attending Provider Active Team Status: Active Member Role Status Dates Dr. Carolyn West Primary Care Provider Active Jonny Marino MD Attending Provider, Referring Provider, Other Provider Active Team Status: Inactive Member Role Status Dates DrMaría Carolyn Grovejamaalslim Primary Care Provider Active Taylor Fields [employer]CRAFT STRUCTURAL FITTER, AIRCRAFT STRUCTURAL FITTER-C Attending Provider, Referrin g Provider Active Team Status: Active Member Role Status Dates Dr. Carolyn West Primary Care Provider Active Dr. Ahmet Awad MD Attending Provider, Referring Provider Active Team Status: Inactive Member Role Status Dates Dr. Carolyn West Primary Care Provider Active Jonny Marino MD Attending Provider, Referring Prov ider Active Team Status: Inactive Member Role Status Dates Dr. Carolyn West Primary Care Provider Active Dr. Aniceto Tillman DO Attending Provider, Emergency Provider Active Team Status: Inactive Member Role Status Dates No Primary Care Physician Primary Care Provider Active Dr. Mehrdad Norris MD Attending Provider, Emergency Provider Active Team Status: Inactive Member Role Status Dates Buffalocarolin West Primary Care Provider Active Dr. Gilda Drake , Attending Provider, Emergency Pro vider Active Team Status: Inactive Member Role Status Dates Dr. Carolyn West Primary Care Provider Active Dr. Montrell Zapien , Attending Provider, Emergency Provide r Active Team Status: Inactive Member Role Status Dates Dr. Carolyn West Primary Care Provider Active Dr. Aniceto Tillman , Emergency Provider Active Hose Turner Relationship Specialty Start Date End Date Sasha Garcia MD [address] [place] [address] PCP - General Internal Medicine 11/26/21 Liseth Manzo MD [address] [place] [address] PCP Resident Internal Medicine 11/26/21 Hose Turner Relationship Specialty Start Date End Date Sasha Garcia MD [address] [place] [address] PCP - General Internal Medicine 11/26/21 Liseth Manzo MD [address] [place] [address] PCP Resident Internal Medicine 11/26/21 Hose Turner Relationship Specialty Start Date End Date Sasha Garcia MD [address] [place] [address] PCP - General Internal Medicine 11/26/21 Liseth Manzo MD [address] [place] [address] PCP Resident Internal Medicine 11/26/21 Team Status: Active Member Role Status Dates No Primary Care Physician Primary Care Provider Active Dr. Judith Valiente MD Emergency Provider Active Dr. Gabriele Quiroz MD Admit Provider, Other Provider Active Dr. Bhakti Arndt DO Attending Provider, Other Provide r Active Team Status: Inactive Member Role Status Dates No Primary Care Physician Primary Care Provider Active Dr. Gilda Drake DO Attending Provider, Emergency Pro vider Active Team Status: Inactive Member Role Status Dates No Primary Care Physician Primary Care Provider Active Dr. Judith Valiente MD Emergency Provider Active Dr. Gabriele Quiroz MD Admit Provider, Other Provider Active Dr. Bhakti Arndt DO Attending Provider Active Team Status: Inactive Member Role Status Dates Dr. Carolyn West Primary Care Provider Active Dr. Montrell Zapien DO Emergency Provider Active Team Status: Inactive Member Role Status Dates Dr. Carolyn West Primary Care Provider Active Dr. Gilda Drake DO Emergency Provider Active Hose Turner Relationship Specialty Start Date End Date Sasha Garcia MD [address] [place] [address] PCP - General Internal Medicine 11/26/21 Liseth Manzo MD [address] [place] [address] PCP Resident Internal Medicine 11/26/21 Team Status: Inactive Member Role Status Dates Dr. Carolyn West Primary Care Provider, Referring Rebecca contreras Active Dr. John Kraus DO Attending Provider Active Team Status: Inactive Member Role Status Dates Dr. Carolyn West Primary Care Provider Active Dr. Luiz Ortega MD Attending Provider Active Team Status: Inactive Member Role Status Dates Dr. Carolyn West Primary Care Provider Active Dr. Mehrdad Norris MD Emergency Provider Active Team Status: Inactive Member Role Status Dates Dr. Carolyn West Primary Care Provider Active Dr. Mehrdad Norris MD Attending Provider, Emergency Provider Active Hose Turner Relationship Specialty Start Date End Date Sasha Garcia MD [address] [address] PCP - General Internal Medicine 11/26/21 Liseth Manzo MD [address] [place] [address] PCP Resident Internal Medicine 11/26/21 Team Status: Inactive Member Role Status Dates Dr. Carolyn West Primary Care Provider, Referring P rovider Active Dr. Mahesh Robert MD Attending Provider Active Team Status: Active Member Role Status Dates [facility] Primary Care Provider A ctive Team Status: Inactive Member Role Status Dates Dr. Mahesh Robert MD Attending Provider, Referring P rovider Active [facility] Primary Care Provider A ctive Taylor Fields AIRCRAFT STRUCTURAL FITTER, AIRCRAFT STRUCTURAL FITTER-C Other Provider Active Team Status: Inactive Member Role Status Dates Dr. Carolyn West Referring Provider Active Jonny Marino MD Attending Provider Active [facility] Primary Care Provider A ctive Team Status: Inactive Member Role Status Dates [facility] Primary Care Provider, Referring Provider Active Jonny Marino MD Attending Provider Active Team Status: Inactive Member Role Status Dates [facility] Primary Care Provider A ctive Dr. Gilda Drake DO Emergency Provider Active Team Status: Inactive Member Role Status Dates [facility] Primary Care Provider A ctive Dr. Gilda Drake DO Attending Provider, Emergency Pro vider Active Team Status: Inactive Member Role Status Dates [facility] Primary Care Provider A ctive Dr. Aniceto Tillman DO Emergency Provider Active Team Status: Active Member Role Status Dates [facility] Primary Care Provider, Referring Provider Active Dr. Mahesh Robert MD Attending Provider, Other Provi tiff Active Team Status: Inactive Member Role Status Dates [facility] Primary Care Provider, Referring Provider Active Dr. Mahesh Robert MD Attending Provider Active Team Status: Inactive Member Role Status Dates [facility] Primary Care Provider A ctive Dr. Aniceto Tillman DO Attending Provider, Emergency Provider Active Team Status: Inactive Member Role Status Dates [facility] Primary Care Provider A ctive Dr. Marcial Shaw MD Emergency Provider Active Hose Turner Relationship Specialty Start Date End Date Sasha Garcia MD [address] [place] [address] PCP - General Internal Medicine 11/26/21 Liseth Manzo MD [address] [place] [address] PCP Resident Internal Medicine 11/26/21 Hose Turner Relationship Specialty Start Date End Date Sasha Garcia MD [address] [place] [address] PCP - General Internal Medicine 11/26/21 Liseth Manzo MD [address] [place] [address] PCP Resident Internal Medicine 11/26/21 Hose Turner Relationship Specialty Start Date End Date Sasha Garcia MD [address] [place] [address] PCP - General Internal Medicine 11/26/21 Liseth Manzo MD [address] [place] [address] PCP Resident Internal Medicine 11/26/21 Hose Turner Relationship Specialty Start Date End Date Sasha Garcia MD [address] [place] [address] PCP - General Internal Medicine 11/26/21 Liseth Manzo MD [address] [place] [address] PCP Resident Internal Medicine 11/26/21 Hose Turner Relationship Specialty Start Date End Date Sasha Garcia MD [address] [place] [address] PCP - General Internal Medicine 11/26/21 Liseth Manzo MD [address] [place] [address] PCP Resident Internal Medicine 11/26/21 Hose Turner Relationship Specialty Start Date End Date Sasha Garcia MD [address] [place] [address] PCP - General Internal Medicine 11/26/21 Liseth Manzo MD [address] [place] [address] PCP Resident Internal Medicine 11/26/21 Taylor Fields NP [address] [place] [phone] Referring Family Medicine 12/16/23 Hose Turner Relationship Specialty Start Date End Date Sasha Garcia MD [address] [place] [address] PCP - General Internal Medicine 11/26/21 Liseth Manzo MD [address] [place] [address] PCP Resident Internal Medicine 11/26/21 Taylor Fields NP [address] [place] [phone] Referring Family Medicine 12/16/23 Hose Turner Relationship Specialty Start Date End Date Sasha Garcia MD [address] [address] PCP - General Internal Medicine 11/26/21 Liseth Manzo MD [address] [place] [address] PCP Resident Internal Medicine 11/26/21 Taylor Fields NP [address] [place] [phone] Referring Family Medicine 12/16/23 Team Status: Active Member Role Status Dates Taylor CANALES, [employer]TER-C Primary Care Provider Activ e Team Status: Inactive Member Role Status Dates LILLY Pulido Attending Provider Active Start: March 25, 2024 End: March 25, 2024 LILLY Pulido Referring Provider Active Start: March 25, 2024 End: March 25, 2024 Taylor CANALES, [employer]TER-C Primary Care Provider Activ e Start: March 25, 2024 End: March 25, 2024 Team Status: Inactive Member Role Status Dates Taylor CANALES, AIRCRAFT [employer]TER-C Primary Care Provider Activ e Start: April 06, 2024 End: April 06, 2024 Taylor CANALES, AIRCRAFT [employer]URAL FITTER-C Referring Provider Active Start: April 06, 2024 End: April 06, 2024 Jonny Marino MD Attending Provider Active St art: April 06, 2024 End: April 06, 2024 Team Status: Inactive Member Role Status Dates Taylor FLORESC, AIRCRAFT [employer]URAL FITTER-C Primary Care Provider Activ e Start: April 09, 2024 End: April 09, 2024 Taylor FLORESC, [employer]CRA[employer] FITTER-C Referring Provider Active Start: April 09, 2024 End: April 09, 2024 Jonny Marino MD Attending Provider Active St art: April 09, 2024 End: April 09, 2024 Team Status: Inactive Member Role Status Dates Taylor FLORESC, AIRCRAFT [employer] FITTER-C Primary Care Provider Activ e Start: April 14, 2024 End: April 14, 2024 LILLY Pulido Attending Provider Active Start: April 14, 2024 End: April 14, 2024 LILLY Pulido Referring Provider Active Start: April 14, 2024 End: April 14, 2024 Team Status: Inactive Member Role Status Dates Taylor FLORESC, [employer]TER-C Primary Care Provider Activ e Start: April 14, 2024 End: April 14, 2024 Dr. Montrell Zapien DO Attending Provider Active Start : April 14, 2024 End: April 14, 2024 Dr. Montrell Zapien DO Emergency Provider Active Start : April 14, 2024 End: April 14, 2024 Team Status: Inactive Member Role Status Dates Taylor FLORESC, AIRCRAFT [employer]TER-C Primary Care Provider Activ e Start: April 19, 2024 End: April 19, 2024 Dr. Mehrdad Norris MD Attending Provider Active Start: April 19, 2024 End: April 19, 2024 Dr. Mehrdad Norris MD Emergency Provider Active Start: April 19, 2024 End: April 19, 2024 Team Status: Inactive Member Role Status Dates Dr. James Smith DO Attending Provider Active Start: April 22, 2024 End: April 22, 2024 Taylor FLORESC, [employer]TER-C Primary Care Provider Activ e Start: April 22, 2024 End: April 22, 2024 Taylor FLORESC, AIRCRAFT [employer] FITTER-C Referring Provider Active Start: April 22, 2024 End: April 22, 2024 Team Status: Active Member Role Status Dates Dr. James Smith DO Attending Provider Active Start: April 22, 2024 Dr. James Smith DO Other Provider Active St art: April 22, 2024 Taylor Renetta VSC, [employer]TER-C Primary Care Provider Activ e Start: April 22, 2024 Tayloralbert Fields VSC, [employer]TER-C Referring Provider Active Start: April 22, 2024 Team Status: Inactive Member Role Status Dates Taylor FLORESC, AIRCRAFT [employer] FITTER-C Primary Care Provider Activ e Start: May 11, 2024 End: May 11, 2024 Taylorana Fields VSC, AIR[employer]TER-C Attending Provider Active Start: May 11, 2024 End: May 11, 2024 Taylor Fields VSC, [employer]TER-C Referring Provider Active Start: May 11, 2024 End: May 11, 2024 Team Status: Inactive Member Role Status Dates Taylor Fields VSC, AIRCRA[employer]TER-C Primary Care Provider Activ e Start: May 26, 2024 End: May 26, 2024 Briseyda FLORESC, AIRCRAFT [employer]UCT[employer] FITTER-C Attending Provider Active S tart: May 26, 2024 End: May 26, 2024 Briseyda Servin VSC, AIR[employer] FITTER-C Referring Provider Active S tart: May 26, 2024 End: May 26, 2024 Team Status: Inactive Member Role Status Dates [facility] Referring Provider Acti ve Start: June 14, 2024 End: June 14, 2024 Judith Hardin [employer]TER-C Attending Provider Active Start: June 14, 2024 End: June 14, 2024 Taylorana CANALES, AIRCRAFT [employer]UCT[employer] FITTER-C Primary Care Provider Activ e Start: June 14, 2024 End: June 14, 2024 Team Status: Inactive Member Role Status Dates Taylor Fields VSC, AIRCRA[employer]TER-C Primary Care Provider Activ e Start: July 09, 2024 End: July 09, 2024 Katherin Beam VSC, AIR[employer]TER-C Attending Provider Active Start: July 09, 2024 End: July 09, 2024 Katherin Beam VSC, AIRCRAFT [employer]TER-C Referring Provider Active Start: July 09, 2024 End: July 09, 2024 Team Status: Inactive Member Role Status Dates Taylor Renetta VSC, AIR[employer]TER-C Primary Care Provider Activ e Start: August 13, 2024 End: August 13, 2024 Taylor Fields VSC, AIR[employer]TER-C Referring Provider Active Start: August 13, 2024 End: August 13, 2024 Dr. James Smith , Attending Provider Active Start: August 13, 2024 End: August 13, 2024 Team Status: Active Member Role Status Dates Taylor Renetta FLORESC, AIRCRAFT [employer] FITTER-C Primary Care Provider Activ e Start: August 13, 2024 Taylor FLORESC, AIRCRAFT STRUCTURAL FITTER-C Referring Provider Active Start: August 13, 2024 Dr. James Smith DO Attending Provider Active Start: August 13, 2024 Dr. James Smith , Other Provider Active St art: August 13, 2024 Team Status: Inactive Member Role Status Dates Taylor Renetta VSC, [employer]-C Primary Care Provider Activ e Start: August 16, 2024 End: August 16, 2024 Judith Hardin [employer]CRAFT [employer]UCT[employer]TER-C Attending Provider Active Start: August 16, 2024 End: August 16, 2024 Judith Hardin AIRCRAFT [employer]UCT[employer]TER-C Referring Provider Active Start: August 16, 2024 End: August 16, 2024 Team Status: Inactive Member Role Status Dates Taylor Renetta VSC, AIRCRAFT [employer]TER-C Primary Care Provider Activ e Start: August 17, 2024 End: August 17, 2024 Taylor Fields VSC, AIRCRAFT [employer]TER-C Referring Provider Active Start: August 17, 2024 End: August 17, 2024 Jodie Garber [employer]-C Attending Provider Active Start: August 17, 2024 End: August 17, 2024 Team Status: Inactive Member Role Status Dates Taylor Renetta VSC, AIRCRAFT [employer]TER-C Primary Care Provider Activ e Start: August 17, 2024 End: August 17, 2024 Dr. Luiz Ortega MD Attending Provider Active S tart: August 17, 2024 End: August 17, 2024 Team Status: Inactive Member Role Status Dates Taylor Renetta VSC, AIRCRAFT [employer]TER-C Primary Care Provider Activ e Start: August 24, 2024 End: August 24, 2024 Judith Hardin AIRCRAFT [employer]UCT[employer]TER-C Attending Provider Active Start: August 24, 2024 End: August 24, 2024 Judith Hardin [employer]CRAFT [employer]-C Referring Provider Active Start: August 24, 2024 End: August 24, 2024 Team Status: Inactive Member Role Status Dates Taylor Renetta VSC, AIRCRAFT [employer]TER-C Primary Care Provider Activ e Start: August 31, 2024 End: August 31, 2024 Taylor Fields VSC, AIRCRAFT [employer]TER-C Attending Provider Active Start: August 31, 2024 End: August 31, 2024 Team Status: Inactive Member Role Status Dates Taylor Fields VSC, AIRCRAFT [employer]TER-C Primary Care Provider Activ e Start: September 02, 2024 End: September 02, 2024 Taylor Fields VSC, AIRCRAFT [employer]TER-C Referring Provider Active Start: September 02, 2024 End: September 02, 2024 Judith Hardin AIRCRAFT [employer]TER-C Attending Provider Active Start: September 02, 2024 End: September 02, 2024 Team Status: Inactive Member Role Status Dates Taylor Fields VSC, AIRCRAFT [employer]TER-C Primary Care Provider Activ e Start: November 08, 2024 End: November 08, 2024 Taylor Fields VSC, AIRCRAFT [employer]UCT[employer]TER-C Referring Provider Active Start: November 08, 2024 End: November 08, 2024 Rayn CARR, PA Attending Provider Active Start: November 08, 2024 End: November 08, 2024 FOR RECORDS PERTAINING TO PATIENTS WHO ARE [...] BE BASED ON THE PRIMARY CLINICAL RECORDS. [employer] [facility]. provides no warranty or guarantee of the accuracy or completeness of information in this document.
== END | disposition home or self-care (01) ==
LOC: NM 06:43
PROVIDERS: PCP Nurse Practitioner Family; Referring Provider Nurse Practitioner Acute Care; Visit Provider Nurse Practitioner Acute Care
DX: K21.9 Gastro-esophageal reflux disease without esophagitis (principal); K31.84 Gastroparesis
CPT/HCPCS: 78264; A9541

== ENCOUNTER → 2025-01-05 | Outpatient (CLI) | payer MEDICAID, SELFPAY ==
[2025-01-05 16:50] LABS: Hematocrit 41.1 % (37-47); Hemoglobin 12.6 g/dL (12.0-15.0); Immature Granulocytes Count 0.060 X10^3/uL (0.0-0.0); Mean Corp Hgb Conc 30.7 g/dL (32-36); Mean Corpuscular Volume 91.5 fL (81-99); Mean Platelet Vol. 10.1 fl (6.2-12.0); NRBC Flagged by Analyzer 0 % (0-5); Platelet Count 223 K/mm3 (150-450); RBC Distribution Width CV 14.2 % (11.6-14.6); RBC Distribution Width SD 47.4 fl (35.1-43.9); Red Blood Count 4.49 M/mm3 (4.2-5.4); White Blood Count 6.6 K/mm3 (4.4-11.0)
[2025-01-05 17:10] LABS: Microalbumin,Random Urine < 12.0 mg/L (<20 mg/L)
[2025-01-05 17:20] LABS: AST(SGOT) 30 U/L (<=31); Alanine Aminotransfer ALT/SGPT 13 U/L (<=34); Albumin, Serum 3.9 g/dL (3.4-4.8); Alkaline Phosphatase 211 U/L (35-104); Anion Gap 11 (5-15); BUN 15 mg/dL (4-19); BUN/Creat Ratio 24.1 RATIO (10-20); Calcium,Total 9.7 mg/dL (7.6-11.0); Carbon Dioxide 26.4 mmol/L (21.0-32.0); Chloride 104 mmol/L (98-108); Cholesterol 195 mg/dL (<=200); Globulin 2.7 g/dL (2.2-4.2); Glucose 134 mg/dL (70-99); Low Density Lipoprotein Calc. 59 mg/dL; Potassium 4.6 mmol/L (3.3-5.1); Triglycerides 427 mg/dL; Very Low Density Lipoprotein 85 mg/dL (5-40); cholesterol:hdl ratio screen 3.85
== END | disposition home or self-care (01) ==
LOC: VSLAB 14:13
PROVIDERS: PCP Nurse Practitioner Family; Referring Provider Nurse Practitioner Family; Visit Provider Nurse Practitioner Family
DX: I10 Essential (primary) hypertension (principal); E11.9 Type 2 diabetes mellitus without complications
CPT/HCPCS: 36415; 80053; 80061; 82043; 84443; 85025

== ENCOUNTER → 2025-01-27 | Outpatient (CLI) | payer MEDICAID, SELFPAY ==
[2025-01-29 21:07] LABS: QNTFERON TB Mitogen Value > 10.00 IU/mL (.); QNTFERON TB Nil Value 0.02 IU/mL (.); QNTFERON TB1+ Ag Value 0.08 IU/mL (.); QNTFERON TB2+ Ag Value 0.12 IU/mL (.); QNTIFERON TB Positive Criteria Negative (Negative)
== END | disposition home or self-care (01) ==
LOC: LAB 11:11
PROVIDERS: PCP Nurse Practitioner Family; Referring Provider Nurse Practitioner Family; Visit Provider Nurse Practitioner Family
DX: L40.0 Psoriasis vulgaris (principal)
CPT/HCPCS: 36415; 86480